=== PATIENT | male | born 1965 | race Caucasian/White ===

== ENCOUNTER 2018-01-22 19:10 | Emergency (ER) | payer MEDICAID, SELFPAY ==
[2018-01-22 19:19] VITALS: BP 128/88; PULSE 98; RESP 16; TEMP 36.8; O2SAT 98
--- NOTE | 2018-01-22 20:21 | W.ED.GENAD ---
Discharge Plan Discharge Details Chief Complaint: PsychEval Clinical Impression: Depression Reason For Visit: NEEDS TO TALK TO SOMEONE Primary Care Provider: Fariba Forde ED Provider: Kandace Gustafson Disposition Patient Disposition: HOME Condition: Fair Home Meds and New Rx's Prescriptions: Continue omeprazole 20 MG capsule,delayed release(DR/EC) 20 mg PO DAILY RF: 0 bupropion HCl [Wellbutrin XL] 300 MG tablet extended release 24 hr 300 mg PO HS RF: 0 nicotine (polacrilex) 4 MG gum 1 tab PO DAILY PRNRF: 0 sertraline 25 MG tablet 25 mg PO DAILY RF: 0 doxepin 10 MG capsule 10 mg PO HS RF: 0 pravastatin 20 MG tablet 20 mg PO HS RF: 0 prazosin 2 MG capsule 2 mg PO HS RF: 0 Melatonin/Pyridoxine [Melatonin 5 mg Tablet] 1 EACH Tablet 10 mg PO HS RF: 0 levothyroxine 75 MCG tablet 75 mcg PO DAILY RF: 0 lamotrigine [Lamictal] 100 MG tablet 100 mg PO DAILY RF: 0 Discharge Instructions Instructions: Depression (ED) Additional Instructions: Please take medications as previously prescribed. Please follow up with counselor as previously scheduled. You may contact [facility] at any point if symptoms worsen. Return to the ER immediately if you develop thoughts of self harm or suicidal ideation. Follow up with primary care in one week for reevaluation. Referrals: Fariba Forde [Primary Care Provider] - Medical Decision Making MDM Narrative Medical decision making narrative: Patient chief complaint needing to speak with someone. On exam, he expressed some sadness and anger towards his sister who in his sister whom does not speak with him. His thought process seems to be appropriate. Initially, patient had reported that he was unsure of his safety to himself. However, he denies any plans for suicide. He seems much more calm and appropriate and he has been in the past and evaluated. He is able to express that while this year has been quite tough for him, he is happy to be living on his own reports that he is in a much more stable than he had been previously. Continues to see shadows which is not new complaint for the patient. He is appropriate and cooperative. Reports that overall he is feeling well physically. Will consult with mental health. Mental health associated NCJuan , evaluated the patient. Danae is familiar with patient. She evaluated the patient feels that he is safe for discharge. She reports that he is not suicidal at this time. Feels that he is safe at home. Patient agrees to contract for safety. I discussed her recommendations with the patient. He reports that he will be safe at home. He feels that he is appropriate to be discharged. He reports that he is able to seek care if he needs to once again. He has contact information for mental health and will be in touch with him. Patient has an appointment with his counselor next week. He will seek care immediately if he develops thoughts of self-harm, suicidal ideation or other new/worsening symptoms HPI - General Adult General Mode of arrival: ambulatory. Date/Time Provider Initiated Documentation: 01/22/18 19:33. Limitations to Documentation: no limitations. Information obtained by: patient. HPI Narrative: Patient is a 52-year-old male well known to the department, with chief complaint of needing to speak with someone. Reports that his younger foster sister of a car accident. This seems to stress very much. He reports that he then reached out to his older sister who does not want to speak with him again. This also seems to increase his anger and frustration. Patient has long history of depression, suicidal ideation. He has been hospitalized twice this year at [facility]. He reports everything that could go along this year has gone wrong. Reports I do not know what I do to deserve this. Reports that recently he has not been thinking so much as wanting to kill himself but with where I will go on a . He does not express any plan currently. Reports that he continues to see shadows at his home. This is not a new complaint for the patient. Reports is been going on for quite some time. No recent medication changes. He denies any auditory hallucinations. Patient has history of depression, bipolar, hypothyroidism, GERD, anxiety. Related Data Home Medications Medication Instructions Recorded Confirmed omeprazole 20 mg PO DAILY 10/16/13 01/22/18 bupropion HCl [Wellbutrin XL] 300 mg PO HS 04/11/17 01/22/18 Melatonin/Pyridoxine [Melatonin 5 10 mg PO HS 06/22/17 01/22/18 mg Tablet] doxepin 10 mg PO HS 06/22/17 01/22/18 pravastatin 20 mg PO HS 06/22/17 01/22/18 prazosin 2 mg PO HS 06/22/17 01/22/18 lamotrigine [Lamictal] 100 mg PO DAILY 08/17/17 01/22/18 levothyroxine 75 mcg PO DAILY 08/17/17 01/22/18 nicotine (polacrilex) 1 tab PO DAILY PRN 10/14/17 01/22/18 Previous Rx's Medication Instructions Recorded sertraline 25 mg PO DAILY tab 10/19/17 Allergies Allergy/AdvReac Type Severity Reaction Status Date / Time Sulfa (Sulfonamide Allergy Severe Swelling/Ed Unverified 01/22/18 19:18 Antibiotics) jostin General Stated Complaint: PsychEval ABA: 2 Review of Systems Constitutional Reports as per HPI, Denies body ache(s), Denies chills, Reports daytime sleepiness, Reports difficulty sleeping, Reports fatigue (states he has had difficulty sleeping, this is not a new issue, has been ongoing for some time ), Denies fever(s), Denies headache(s), Denies malaise and Denies night sweats Eyes Patient Denies change in vision ENT Denies headache(s) Cardiovascular Denies chest pain, Denies chest pain with activity and Denies dyspnea Respiratory Denies cough and Denies dyspnea Comments: No reported respiratory symptoms Gastrointestinal Denies nausea and Denies vomiting Genitourinary Comments: Denies change in urinary habits Neurologic Denies behavioral changes, Denies confusion and Denies headache(s) Psychiatric Reports as per HPI, Reports anxiety, Denies behavioral changes, Denies confusion, Reports depression, Reports visual hallucinations, Denies tactile hallucinations, Denies homicidal ideation and Denies suicidal ideation Endocrine Reports fatigue (states he has had difficulty sleeping, this is not a new issue, has been ongoing for some time ) [facility] Social History Smoking/Tobacco Use Status: Current every day Exam Const General: cooperative, healthy appearing, comfortable, no acute distress, well developed and well groomed Nutritional Appearance: average body habitus Orientation: alert and awake Eyes General: appearance normal, both eyes and all related structures Resp Effort & Inspection: normal respiratory effort, able to speak in complete sentences, no cough and no use of accessory muscles Cardio Rate: regular rate Rhythm: regular rhythm Heart Sounds: S1 normal and S2 normal Skin General skin exam: no rashes or lesions noted Lesions: no lesions Rashes: no rashes Neuro General: alert, awake, oriented x3 and gait normal Cognition: normal cognition Speech: speech normal Gait: normal gait Psych Appearance: grossly normal and well kempt Mental Status: mental status grossly normal Speech and Movement: speech and movement normal Mood: congruent mood Affect: normal affect Attitude: cooperative Thought Process: normal Thought Content: normal Insight: insight good (He is expressing sadness/anger around family situation. He is not expressing thoughts of self harm, seems to have good insite. ) Judgment: judgment good Course Vital Signs Temperature 36.8 C 01/22/18 19:19 Pulse 98 H 01/22/18 19:19 Respiratory Rate 16 01/22/18 19:19 Blood Pressure 128/88 01/22/18 19:19 Pulse Oximetry 98 01/22/18 19:19 Temperature 36.8 C 01/22/18 19:19 Pulse 98 H 01/22/18 19:19 Respiratory Rate 16 01/22/18 19:19 Blood Pressure 128/88 01/22/18 19:19 Pulse Oximetry 98 01/22/18 19:19
[2018-01-22 21:35] VITALS: BP 123/76; PULSE 88; RESP 18; TEMP 36.2; O2SAT 96
--- NOTE | 2018-01-22 21:47 | PDOC.MHCN ---
Presenting Issue: *How did they arrive here at ER and why did they come: Patient walks to the ER because he wants to talk to someone. Precipitating Factors: *Assessment of Safety SI/HI (address delusions if pertaining to the SI/HI) Patient denies SI or HI. He reports that his little sister in a car accident today. He is struggling with the news of her and states this year has not been good for him and he is not sure how much more he can take. The of his sister has made him think about his life and all of the things he would like to change. He shares that he wants someone to care for him and does not want to alone. Disposition: *Behavior: Cooperative. *Eye Contact: Good. *Mood: Calm and depressed. *Affect: Congruent to mood. *Appetite: Diminished per patient. *Sleep (trouble falling/staying asleep): Poor per patient.
== END 2018-01-22 21:39 | disposition home or self-care (01) ==
PROVIDERS: Emergency Provider Physician Assistant; PCP Nurse Practitioner
DX: F32.9 Major depressive disorder, single episode, unspecified (principal)
CPT/HCPCS: 99283; 99281

== ENCOUNTER 2018-02-01 14:49 | Emergency (ER) | payer MEDICAID, SELFPAY ==
[2018-02-01 15:31] VITALS: BP 128/81; PULSE 90; RESP 16; TEMP 36.7; O2SAT 95
--- NOTE | 2018-02-01 15:34 | DI.RAD_ITS ---
SYMPTOMS/DIAGNOSIS: LEFT CHEST PAIN POSTERIOR AFTER COUGHING PA AND LATERAL CHEST: Comparison is made with January,. The heart size is normal. The lungs are well inflated and clear. No infiltrate, effusion or pneumothorax is seen. No rib or spine fractures are identified. IMPRESSION: Negative chest x-ray.
--- NOTE | 2018-02-01 15:35 | W.ED.GENAD ---
Discharge Plan Disposition Patient Disposition: HOME Condition: Good Discharge Details Chief Complaint: Chest/Rib Clinical Impression: Rib sprain Primary Care Provider: Fariba Forde ED Provider: Jagdish Aleman Home Meds and New Rx's Prescriptions: Continue omeprazole 20 MG capsule,delayed release(DR/EC) 20 mg PO DAILY RF: 0 bupropion HCl [Wellbutrin XL] 300 MG tablet extended release 24 hr 300 mg PO HS RF: 0 nicotine (polacrilex) 4 MG gum 1 tab PO DAILY PRNRF: 0 sertraline 25 MG tablet 25 mg PO DAILY RF: 0 doxepin 10 MG capsule 10 mg PO HS RF: 0 pravastatin 20 MG tablet 20 mg PO HS RF: 0 prazosin 2 MG capsule 2 mg PO HS RF: 0 Melatonin/Pyridoxine [Melatonin 5 mg Tablet] 1 EACH Tablet 10 mg PO HS RF: 0 levothyroxine 75 MCG tablet 75 mcg PO DAILY RF: 0 lamotrigine [Lamictal] 100 MG tablet 100 mg PO DAILY RF: 0 Discharge Instructions Instructions: Rib Contusion (ED) Medical Decision Making MDM Narrative Medical decision making narrative: 52-year-old male presents to left posterior chest discomfort that began when he coughed. He is afebrile, well-appearing, oxygenating normally. Differential diagnosis would include chest wall strain, pneumothorax, less likely a occult rib fracture. Patient was referred for chest x-ray with no acute findings. We will treat with NSAIDs, rest. Patient appropriate for discharge to home. HPI - General Adult General Mode of arrival: ambulatory. Date/Time Provider Initiated Documentation: 02/01/18 15:14. Limitations to Documentation: no limitations. Information obtained by: patient. History of Present Illness 52 year old M presents to the emergency department with the chief complaint of L CP, described as moderate, Quality is described as aching, and is localized to the chest and left. Patient reports no radiation. Patient started experiencing this hour(s) and it has been now resolved. No relieving factors improve symptom(s), No exacerbating factors reported . HPI Narrative: 52-year-old male complains of left posterior chest discomfort that began when he coughed. States it feels as if he disrupted previous rib fracture. It is improving over time. He has not been short of breath. He has not had a rash. He did not fall or injure himself Related Data Home Medications Medication Instructions Recorded Confirmed omeprazole 20 mg PO DAILY 10/16/13 02/01/18 bupropion HCl [Wellbutrin XL] 300 mg PO HS 04/11/17 02/01/18 Melatonin/Pyridoxine [Melatonin 5 10 mg PO HS 06/22/17 02/01/18 mg Tablet] doxepin 10 mg PO HS 06/22/17 02/01/18 pravastatin 20 mg PO HS 06/22/17 02/01/18 prazosin 2 mg PO HS 06/22/17 02/01/18 lamotrigine [Lamictal] 100 mg PO DAILY 08/17/17 02/01/18 levothyroxine 75 mcg PO DAILY 08/17/17 02/01/18 nicotine (polacrilex) 1 tab PO DAILY PRN 10/14/17 02/01/18 Previous Rx's Medication Instructions Recorded sertraline 25 mg PO DAILY tab 10/19/17 Allergies Allergy/AdvReac Type Severity Reaction Status Date / Time Sulfa (Sulfonamide Allergy Severe Swelling/Ed Unverified 01/22/18 19:18 Antibiotics) jostin General ABA: 2 Review of Systems Review of Systems 8 systems reviewed and otherwise neg PFSH Social History Smoking/Tobacco Use Status: Current every day Exam Narrative Exam Narrative: GEN: awake, alert, oriented 3. Pleasant, well groomed, interactive. HEAD: Normocephalic, atraumatic ENT: Mucous membranes moist, oropharynx unremarkable, External ear exam unremarkable EYES: PERRL, EOMI NECK: Full ROM, no ELLIS, no menigismus CHEST/RESP: L posterior tenderness to palpation without crepitus or bony deformity, clear to auscultation bilateral, no wheeze/rhonchi/rales CARDIOVASCULAR: RRR, no murmur, rub jose. 2+ Rad pulse bilateral ABDOMEN: Soft, nontender, no mass. +Bowel sounds EXT: Full ROM, no edema, no rash Neuro: Grossly normal neurologic exam, conversant, interactive. Psych: Speech fluent, thoughts congruent, affect normal
--- NOTE | 2018-02-01 15:38 | ED.GENADUL_ITS ---
Discharge Plan Disposition Patient Disposition: HOME Condition: Good Discharge Details Chief Complaint: Chest/Rib Clinical Impression: Rib sprain Primary Care Provider: Fariba Forde ED Provider: Jagdish Aleman Home Meds and New Rx's Prescriptions: Continue omeprazole 20 MG capsule,delayed release(DR/EC) 20 mg PO DAILY RF: 0 bupropion HCl [Wellbutrin XL] 300 MG tablet extended release 24 hr 300 mg PO HS RF: 0 nicotine (polacrilex) 4 MG gum 1 tab PO DAILY PRNRF: 0 sertraline 25 MG tablet 25 mg PO DAILY RF: 0 doxepin 10 MG capsule 10 mg PO HS RF: 0 pravastatin 20 MG tablet 20 mg PO HS RF: 0 prazosin 2 MG capsule 2 mg PO HS RF: 0 Melatonin/Pyridoxine [Melatonin 5 mg Tablet] 1 EACH Tablet 10 mg PO HS RF: 0 levothyroxine 75 MCG tablet 75 mcg PO DAILY RF: 0 lamotrigine [Lamictal] 100 MG tablet 100 mg PO DAILY RF: 0 Discharge Instructions Instructions: Rib Contusion (ED) Medical Decision Making MDM Narrative Medical decision making narrative: 52-year-old male presents to left posterior chest discomfort that began when he coughed. He is afebrile, well-appearing, oxygenating normally. Differential diagnosis would include chest wall strain, pneumothorax, less likely a occult rib fracture. Patient was referred for chest x-ray with no acute findings. We will treat with NSAIDs, rest. Patient appropriate for discharge to home. HPI - General Adult General Mode of arrival: ambulatory . Date/Time Provider Initiated Documentation: 02/01/18 15:14 . Limitations to Documentation: no limitations . Information obtained by: patient . History of Present Illness 52 year old M presents to the emergency department with the chief complaint of L CP, described as moderate, Quality is described as aching, and is localized to the chest and left. Patient reports no radiation. Patient started experiencing this hour(s) and it has been now resolved. No relieving factors improve symptom(s), No exacerbating factors reported . HPI Narrative: 52-year-old male complains of left posterior chest discomfort that began when he coughed. States it feels as if he disrupted previous rib fracture. It is improving over time. He has not been short of breath. He has not had a rash. He did not fall or injure himself Related Data Home Medications Medication Instructions Recorded Confirmed omeprazole 20 mg PO DAILY 10/16/13 02/01/18 bupropion HCl [Wellbutrin XL] 300 mg PO HS 04/11/17 02/01/18 Melatonin/Pyridoxine [Melatonin 5 10 mg PO HS 06/22/17 02/01/18 mg Tablet] doxepin 10 mg PO HS 06/22/17 02/01/18 pravastatin 20 mg PO HS 06/22/17 02/01/18 prazosin 2 mg PO HS 06/22/17 02/01/18 lamotrigine [Lamictal] 100 mg PO DAILY 08/17/17 02/01/18 levothyroxine 75 mcg PO DAILY 08/17/17 02/01/18 nicotine (polacrilex) 1 tab PO DAILY PRN 10/14/17 02/01/18 Previous Rx's Medication Instructions Recorded sertraline 25 mg PO DAILY tab 10/19/17 Allergies Allergy/AdvReac Type Severity Reaction Status Date / Time Sulfa (Sulfonamide Allergy Severe Swelling/Ed Unverified 01/22/18 19:18 Antibiotics) jostin General ABA: 2 Review of Systems Review of Systems 8 systems reviewed and otherwise neg PFSH Social History Smoking/Tobacco Use Status: Current every day Exam Narrative Exam Narrative: GEN: awake, alert, oriented 3. Pleasant, well groomed, interactive. HEAD: Normocephalic, atraumatic ENT: Mucous membranes moist, oropharynx unremarkable, External ear exam unremarkable EYES: PERRL, EOMI NECK: Full ROM, no ELLIS, no menigismus CHEST/RESP: L posterior tenderness to palpation without crepitus or bony deformity, clear to auscultation bilateral, no wheeze/rhonchi/rales CARDIOVASCULAR: RRR, no murmur, rub jose. 2+ Rad pulse bilateral ABDOMEN: Soft, nontender, no mass. +Bowel sounds EXT: Full ROM, no edema, no rash Neuro: Grossly normal neurologic exam, conversant, interactive. Psych: Speech fluent, thoughts congruent, affect normal
[2018-02-01] MEDS: Acetaminophen 325 MG TAB 650 MG PO (15:44)
--- NOTE | 2018-02-01 16:04 | DI.VRAD_ITS ---
EXAM: XR Chest, 2 Views EXAM DATE/TIME: 02/01/2018 3:52 PM CLINICAL HISTORY: 52 years old, male; Pain; Chest wall pain; Patient HX: L posterior cp after coughing TECHNIQUE: XR of the chest, 2 views. COMPARISON: CR - CHEST 2 VIEWS PA,LAT 01/29/2017 7:02 PM FINDINGS: Lungs: Unremarkable. No consolidation. Pleural space: Unremarkable. No pleural effusion. No pneumothorax. Heart/Mediastinum: Unremarkable. No cardiomegaly. Bones/joints: Unremarkable for patient's age. IMPRESSION: No acute findings. Dictated and Authenticated by: Jordan Davis MD. Ordering:KOBY MATT MD
== END 2018-02-01 16:34 | disposition home or self-care (01) ==
PROVIDERS: Emergency Provider Emergency Medicine; PCP Nurse Practitioner
DX: S23.41XA Sprain of ribs, initial encounter (principal); X50.9XXA Other and unspecified overexertion or strenuous movements or postures, initial encounter
CPT/HCPCS: 99283; 71046

== ENCOUNTER 2018-02-27 00:50 | Emergency (ER) | payer MEDICAID, SELFPAY ==
[2018-02-27 00:45] VITALS: BP 122/77; PULSE 88; RESP 16; TEMP 37.1; O2SAT 93
--- NOTE | 2018-02-27 00:58 | DI.COMBO_ITS ---
SYMPTOM/DIAGNOSIS: SOB, POSITIVE D DIMER PA AND LATERAL CHEST: Comparison is made with 02/01/18. The heart is normal in size. The lungs are clear. The mediastinal structures and pleura appear intact. CONCLUSION: Normal chest. PE CHEST CT: CT angiography was performed with multi slice acquisition and multi planar and 3D reconstruction. CT scan of the chest was performed according to the pulmonary embolus protocol. Comparison is made with 01/04/17. There is no evidence of a pulmonary embolus. The thoracic aorta is of normal caliber. No aneurysm or dissection is seen. Heart size is within normal limits. No significant pericardial effusion is present. No findings to suggest right ventricular dysfunction are seen. No mediastinal or hilar adenopathy is present. There is no pleural effusion or pneumothorax present. Moderate centrilobular and paraseptal emphysematous changes are present in the lungs. No acute infiltrates are seen. The tracheobronchial tree is unremarkable. Degenerative changes are seen in the spine. Old rib fracture deformities are present. The upper abdominal images show no acute abnormality. IMPRESSION: No evidence of acute pulmonary embolus, thoracic aortic dissection or aneurysm. Pulmonary emphysema.
--- NOTE | 2018-02-27 01:02 | W.ED.GENAD ---
Discharge Plan Disposition Patient Disposition: HOME Condition: Good Discharge Details Chief Complaint: SOB Clinical Impression: Dyspnea Reason For Visit: SHAHAB Primary Care Provider: Fariba Forde ED Provider: Jewel Lackey [place] Meds and New Rx's Prescriptions: Continue omeprazole 20 MG capsule,delayed release(DR/EC) 20 mg PO DAILY RF: 0 bupropion HCl [Wellbutrin XL] 300 MG tablet extended release 24 hr 300 mg PO HS RF: 0 sertraline 25 MG tablet 25 mg PO DAILY RF: 0 nicotine 21 mg/24 hr Patch 24 Hour 1 patch TRANSDERMAL DAILY RF: 0 doxepin 10 MG capsule 10 mg PO HS RF: 0 pravastatin 20 MG tablet 20 mg PO HS RF: 0 prazosin 2 MG capsule 2 mg PO HS RF: 0 Melatonin/Pyridoxine [Melatonin 5 mg Tablet] 1 EACH Tablet 10 mg PO HS RF: 0 levothyroxine 75 MCG tablet 75 mcg PO DAILY RF: 0 lamotrigine [Lamictal] 100 MG tablet 100 mg PO DAILY RF: 0 Discharge Instructions Instructions: Dyspnea (ED) Additional Instructions: Your chest x-ray and CT scan tonight were fine. EKG was fine. Follow-up with primary care as needed. Return to ED for chest pain, fever, increasing shortness of breath. Referrals: Fariba Forde [Primary Care Provider] - Medical Decision Making Patient presenting with complaint of shortness of breath which he reports as inability to take a deep breath. He has not had fever. He has a chronic unchanged cough. Recently stopped smoking. He has no chest pain or back pain. He has no leg pain or leg swelling. He does not appear to be in any distress. His exam is unremarkable with clear lungs and normal cardiac exam. Saturations are low to mid 90s on room air. He reports that it feels like when he had his pneumothorax last year. Chest x-ray is ordered. EKG is ordered. D-dimer is ordered as I cannot rule him out with PERC. Chest x-ray is unremarkable without PTX per my review. EKG is normal. D-dimer is positive even with age adjustment. Therefore, IV placed and creatinine sent. CT for PE ordered. Patient does state that he is feeling better. CT scan negative for clot. He does have some emphysema. He is resting comfortably now. He no longer feels short of breath. Patient be discharged home follow-up with primary care as needed. Return to ED for problems. Lab Data Lab results reviewed: Yes I reviewed the patient's lab results. ECG Data Attestation: I personally reviewed and interpreted this ECG (s) as follows: Prior ECG tracings: not available for review Interpretation: Normal sinus rhythm at 86 with normal axis and normal intervals. Patient has normal ST segments. HPI General Mode of arrival: EMS. Date/Time Provider Initiated Documentation: 02/27/18 00:51. Limitations to Documentation: no limitations. Information obtained by: patient. HPI Narrative: Patient presents to ED by ambulance with complaints of shortness of breath. Patient states that after he went to bed tonight he started to feel like he could not take a deep breath. This made him more anxious and he felt more short of breath. He denies any fever or cough. He denies any chest pain. He denies any back pain. He has no leg pain or swelling. He states it feels just like when he had a collapsed lung last year. Since it did not get better he called EMS and came in for evaluation. Related Data Home Medications Medication Instructions Recorded Confirmed omeprazole 20 mg PO DAILY 10/16/13 02/27/18 bupropion HCl [Wellbutrin XL] 300 mg PO HS 04/11/17 02/27/18 Melatonin/Pyridoxine [Melatonin 5 10 mg PO HS 06/22/17 02/27/18 mg Tablet] doxepin 10 mg PO HS 06/22/17 02/27/18 pravastatin 20 mg PO HS 06/22/17 02/27/18 prazosin 2 mg PO HS 06/22/17 02/27/18 lamotrigine [Lamictal] 100 mg PO DAILY 08/17/17 02/27/18 levothyroxine 75 mcg PO DAILY 08/17/17 02/27/18 sertraline 25 mg PO DAILY tab 10/19/17 02/27/18 nicotine 1 patch TRANSDERMAL DAILY 02/27/18 02/27/18 Previous Rx's Medication Instructions Recorded sertraline 25 mg PO DAILY tab 10/19/17 Allergies Allergy/AdvReac Type Severity Reaction Status Date / Time Sulfa (Sulfonamide Allergy Severe Swelling/Ed Unverified 02/27/18 00:48 Antibiotics) jostin General Stated Complaint: SOB ABA: 3 Review of Systems Constitutional Denies chills, Denies fever(s), Denies headache(s) and Denies weakness ENT Denies otalgia, Denies headache(s), Denies nasal congestion, Denies neck pain, Denies sinus pressure and Denies sore throat Cardiovascular Denies chest pain, Denies diaphoresis, Denies syncope, Denies edema, Denies leg edema, Denies lightheadedness, Denies palpitations and Reports dyspnea Respiratory Denies cough and Reports dyspnea Gastrointestinal Denies abdominal pain, Denies diarrhea, Denies nausea and Denies vomiting Musculoskeletal Denies back pain, Denies myalgias, Denies arthralgias, Denies neck pain and Denies numbness Integumentary/Breasts Denies rash Neurologic Denies confusion, Denies syncope, Denies headache(s), Denies focal weakness, Denies numbness and Denies weakness Psychiatric Denies confusion Endocrine Denies palpitations Exam Const General: cooperative, comfortable and no acute distress Orientation: alert and oriented x3 [facility] Head: normocephalic and atraumatic Neck Neck: normal visual inspection, trachea midline and supple Chest Chest: normal palpation of entire chest wall Resp Effort & Inspection: normal respiratory effort Auscultation: clear to auscultation bilaterally Cardio Rate: regular rate Rhythm: regular rhythm Heart Sounds: S1 normal and S2 normal GI Palpation: soft, not firm and nontender Neuro General: alert, oriented x3, no focal motor deficits and CN's II-XI intact bilaterally Sensory Exam: no sensory deficits noted Extrem General: normal to inspection, no pedal edema and no calf tenderness Course Vital Signs Temperature 98.8 F 02/27/18 00:45 Pulse 88 02/27/18 00:45 Respiratory Rate 16 02/27/18 00:45 Blood Pressure 122/77 02/27/18 00:45 Pulse Oximetry 93 L 02/27/18 00:45 Temperature 98.8 F 02/27/18 00:45 Temperature Source Skin 02/27/18 00:45 Pulse 88 02/27/18 00:45 Respiratory Rate 16 02/27/18 00:45 Respiratory Effort 02/27/18 00:52 Respiratory Depth Normal 02/27/18 00:52 Respiratory Pattern Normal 02/27/18 00:52 Blood Pressure 122/77 02/27/18 00:45 Pulse Oximetry 93 L 02/27/18 00:45 Oxygen Delivery Method Room Air 02/27/18 00:45 Oxygen Flow Rate 0 02/27/18 00:45 Pain Level 0 02/27/18 00:45
--- NOTE | 2018-02-27 01:06 | ED.GENADUL_ITS ---
Discharge Plan Disposition Patient Disposition: HOME Condition: Good Discharge Details Chief Complaint: SOB Clinical Impression: Dyspnea Reason For Visit: SHAHAB Primary Care Provider: Fariba Forde ED Provider: Jewel Lackey [place] Meds and New Rx's Prescriptions: Continue omeprazole 20 MG capsule,delayed release(DR/EC) 20 mg PO DAILY RF: 0 bupropion HCl [Wellbutrin XL] 300 MG tablet extended release 24 hr 300 mg PO HS RF: 0 sertraline 25 MG tablet 25 mg PO DAILY RF: 0 nicotine 21 mg/24 hr Patch 24 Hour 1 patch TRANSDERMAL DAILY RF: 0 doxepin 10 MG capsule 10 mg PO HS RF: 0 pravastatin 20 MG tablet 20 mg PO HS RF: 0 prazosin 2 MG capsule 2 mg PO HS RF: 0 Melatonin/Pyridoxine [Melatonin 5 mg Tablet] 1 EACH Tablet 10 mg PO HS RF: 0 levothyroxine 75 MCG tablet 75 mcg PO DAILY RF: 0 lamotrigine [Lamictal] 100 MG tablet 100 mg PO DAILY RF: 0 Discharge Instructions Instructions: Dyspnea (ED) Additional Instructions: Your chest x-ray and CT scan tonight were fine. EKG was fine. Follow-up with primary care as needed. Return to ED for chest pain, fever, increasing shortness of breath. Referrals: Fariba Forde [Primary Care Provider] - Medical Decision Making Patient presenting with complaint of shortness of breath which he reports as inability to take a deep breath. He has not had fever. He has a chronic unchanged cough. Recently stopped smoking. He has no chest pain or back pain. He has no leg pain or leg swelling. He does not appear to be in any distress. His exam is unremarkable with clear lungs and normal cardiac exam. Saturations are low to mid 90s on room air. He reports that it feels like when he had his pneumothorax last year. Chest x-ray is ordered. EKG is ordered. D- dimer is ordered as I cannot rule him out with PERC. Chest x-ray is unremarkable without PTX per my review. EKG is normal. D-dimer is positive even with age adjustment. Therefore, IV placed and creatinine sent. CT for PE ordered. Patient does state that he is feeling better. CT scan negative for clot. He does have some emphysema. He is resting comfortably now. He no longer feels short of breath. Patient be discharged home follow-up with primary care as needed. Return to ED for problems. Lab Data Lab results reviewed: Yes I reviewed the patient's lab results. ECG Data Attestation: I personally reviewed and interpreted this ECG (s) as follows: Prior ECG tracings: not available for review Interpretation: Normal sinus rhythm at 86 with normal axis and normal intervals. Patient has normal ST segments. HPI General Mode of arrival: EMS . Date/Time Provider Initiated Documentation: 02/27/18 00:51 . Limitations to Documentation: no limitations . Information obtained by: patient . HPI Narrative: Patient presents to ED by ambulance with complaints of shortness of breath. Patient states that after he went to bed tonight he started to feel like he could not take a deep breath. This made him more anxious and he felt more short of breath. He denies any fever or cough. He denies any chest pain. He denies any back pain. He has no leg pain or swelling. He states it feels just like when he had a collapsed lung last year. Since it did not get better he called EMS and came in for evaluation. Related Data Home Medications Medication Instructions Recorded Confirmed omeprazole 20 mg PO DAILY 10/16/13 02/27/18 bupropion HCl [Wellbutrin XL] 300 mg PO HS 04/11/17 02/27/18 Melatonin/Pyridoxine [Melatonin 5 10 mg PO HS 06/22/17 02/27/18 mg Tablet] doxepin 10 mg PO HS 06/22/17 02/27/18 pravastatin 20 mg PO HS 06/22/17 02/27/18 prazosin 2 mg PO HS 06/22/17 02/27/18 lamotrigine [Lamictal] 100 mg PO DAILY 08/17/17 02/27/18 levothyroxine 75 mcg PO DAILY 08/17/17 02/27/18 sertraline 25 mg PO DAILY tab 10/19/17 02/27/18 nicotine 1 patch TRANSDERMAL DAILY 02/27/18 02/27/18 Previous Rx's Medication Instructions Recorded sertraline 25 mg PO DAILY tab 10/19/17 Allergies Allergy/AdvReac Type Severity Reaction Status Date / Time Sulfa (Sulfonamide Allergy Severe Swelling/Ed Unverified 02/27/18 00:48 Antibiotics) jostin General Stated Complaint: SOB ABA: 3 Review of Systems Constitutional Denies chills, Denies fever(s), Denies headache(s) and Denies weakness ENT Denies otalgia, Denies headache(s), Denies nasal congestion, Denies neck pain, Denies sinus pressure and Denies sore throat Cardiovascular Denies chest pain, Denies diaphoresis, Denies syncope, Denies edema, Denies leg edema, Denies lightheadedness, Denies palpitations and Reports dyspnea Respiratory Denies cough and Reports dyspnea Gastrointestinal Denies abdominal pain, Denies diarrhea, Denies nausea and Denies vomiting Musculoskeletal Denies back pain, Denies myalgias, Denies arthralgias, Denies neck pain and Denies numbness Integumentary/Breasts Denies rash Neurologic Denies confusion, Denies syncope, Denies headache(s), Denies focal weakness, Denies numbness and Denies weakness Psychiatric Denies confusion Endocrine Denies palpitations Exam Const General: cooperative, comfortable and no acute distress Orientation: alert and oriented x3 [facility] Head: normocephalic and atraumatic Neck Neck: normal visual inspection, trachea midline and supple Chest Chest: normal palpation of entire chest wall Resp Effort & Inspection: normal respiratory effort Auscultation: clear to auscultation bilaterally Cardio Rate: regular rate Rhythm: regular rhythm Heart Sounds: S1 normal and S2 normal GI Palpation: soft, not firm and nontender Neuro General: alert, oriented x3, no focal motor deficits and CN's II-XI intact bilaterally Sensory Exam: no sensory deficits noted Extrem General: normal to inspection, no pedal edema and no calf tenderness Course Vital Signs Temperature 98.8 F 02/27/18 00:45 Pulse 88 02/27/18 00:45 Respiratory Rate 16 02/27/18 00:45 Blood Pressure 122/77 02/27/18 00:45 Pulse Oximetry 93 L 02/27/18 00:45 Temperature 98.8 F 02/27/18 00:45 Temperature Source Skin 02/27/18 00:45 Pulse 88 02/27/18 00:45 Respiratory Rate 16 02/27/18 00:45 Respiratory Effort 02/27/18 00:52 Respiratory Depth Normal 02/27/18 00:52 Respiratory Pattern Normal 02/27/18 00:52 Blood Pressure 122/77 02/27/18 00:45 Pulse Oximetry 93 L 02/27/18 00:45 Oxygen Delivery Method Room Air 02/27/18 00:45 Oxygen Flow Rate 0 02/27/18 00:45 Pain Level 0 02/27/18 00:45
[2018-02-27 01:50] LABS: D-Dimer 616 ng/mlFEU (<500)
[2018-02-27 02:14] LABS: CREATININE 0.89 mg/dL (0.70-1.30)
--- NOTE | 2018-02-27 02:14 | DI.VRAD_ITS ---
EXAM: XR Chest, 2 Views CLINICAL HISTORY: 52 years old, male; Signs and symptoms; Shortness of breath; Patient HX: Pt awoke with difficulty catching his breath. Quit smoking 6 days ago, cough but states it is chronic, no recent cold symptoms TECHNIQUE: Frontal and lateral views of the chest. COMPARISON: CR XR CHEST 2V PA LATERAL 02/01/2018 3:45 PM FINDINGS: Lungs: Unremarkable. No consolidation. Pleural space: Unremarkable. No pneumothorax. Heart: Unremarkable. No cardiomegaly. Mediastinum: Unremarkable. Bones/joints: Unremarkable. IMPRESSION: No acute findings. Dictated and Authenticated by: Dashawn Castellon MD. Ordering:MARYLU LUNA MD
[2018-02-27] MEDS: Omnipaque 350 MG/ML 100 ML BTL IJ (02:56)
--- NOTE | 2018-02-27 02:56 | DI.VRAD_ITS ---
EXAM: CT Angiography Chest With Intravenous Contrast CLINICAL HISTORY: 52 years old, male; Signs and symptoms and abnormal findings; Abnormal diagnostic tests; Elevated d-dimer; Shortness of breath; Patient HX: SOB, difficulty catching breath TECHNIQUE: Axial computed tomographic angiography images of the chest with intravenous contrast using pulmonary embolism protocol. All CT scans at this facility use at least one of these dose optimization techniques: automated exposure control; mA and/or kV adjustment per patient size (includes targeted exams where dose is matched to clinical indication); or iterative reconstruction. MIP reconstructed images were created and reviewed. Coronal and sagittal reformatted images were created and reviewed. CONTRAST: 100 mL of Omnipaque 350 administered intravenously. COMPARISON: CT CHEST WITHOUT CONTRAST 01/04/2017 1:33 PM FINDINGS: Pulmonary arteries: Unremarkable. No pulmonary embolism. Aorta: No acute findings. No thoracic aortic aneurysm. Lungs: Moderate centrilobular destruction of lung parenchyma. No mass. Pleural space: Unremarkable. No significant effusion. No pneumothorax. Heart: Unremarkable. No cardiomegaly. No significant pericardial effusion. No evidence of RV dysfunction. Bones/joints: Old rib fracture deformities. No dislocation. Soft tissues: Unremarkable. Lymph nodes: Unremarkable. No enlarged lymph nodes. IMPRESSION: No acute findings. Emphysema. Dictated and Authenticated by: Dashawn Castellon MD. Ordering:MARYLU LUNA MD
== END 2018-02-27 03:06 | disposition home or self-care (01) ==
LOC: ER 03:09
PROVIDERS: Emergency Provider Emergency Medicine; PCP Nurse Practitioner
DX: R06.00 Dyspnea, unspecified (principal); R79.1 Abnormal coagulation profile
CPT/HCPCS: 36415; 71275; 93005; 99285; 71046; 82565; 85379; 93010; 99284; J3490

== ENCOUNTER 2018-02-28 17:35 | Outpatient (REF) | payer MEDICAID, SELFPAY ==
[2018-02-28 19:20] LABS: TSH (W/Ref FT4) 1.83 uIU/mL (0.358-3.74)
[2018-02-28 19:55] LABS: Ferritin 52 ng/mL (8-388)
== END 2018-02-28 17:55 ==
LOC: NCHCN 17:35
PROVIDERS: PCP Nurse Practitioner; Visit Provider Family Medicine
DX: G25.81 Restless legs syndrome (principal); E03.9 Hypothyroidism, unspecified
CPT/HCPCS: 82728; 84443

== ENCOUNTER 2018-05-07 13:16 | Observation (INO) | payer MEDICAID, SELFPAY ==
[2018-05-07 13:34] VITALS: BP 131/88; PULSE 98; RESP 16; TEMP 37
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
--- NOTE | 2018-05-07 13:41 | NUR.NOTE ---
Pt. states he has not been taking his regular medications at all. Pt. remains calm and cooperative with PA.
--- NOTE | 2018-05-07 13:54 | ED.GENADUL_ITS ---
Discharge Plan Disposition Patient Disposition: [facility] INPATIENT Condition: Stable Discharge Details Chief Complaint: PsychEval Clinical Impression: Suicidal ideation, Depression with suicidal ideation Reason For Visit: SUICIDAL IDEATION Admit Date/Time: 05/07/18 22:48 Admit Provider: Saravanan Pires Attending Provider: Saravanan Pires Primary Care Provider: Fariba Forde ED Provider: Wilton Bosch Discharge Data Discharge Date/Time-TO BE ENTERED AT DEPARTURE: 05/07/18 23:06 Medical Decision Making <RENAE Vidal - Last Filed: 05/08/18 09:33> Patient is a 52-year-old male, well-known to myself, brought in in [facility] custody, with primary concern for suicidal ideation with plan. Patient is a long history of psychiatric illness. Patient's been here multiple occasions with suicidal ideation. I last saw the patient in January of this year with similar complaint. However, at this time, patient seems much more deliberate. He has a plan of overdose which is atypical from the patient's previous plans. Typically when I evaluate the patient, he is wanting help and wanting to improve his current mental state. However, at this point, he does not want treatment. Rather, the patient reports I will just get discharged, go home and overdose. He denies any hallucinations. Denies any recent attempts at suicide. States his last attempt was over a month ago which time he tried to starve himself and did not eat for 2 weeks. Denies any recent drug ingestions. Patient is accompanied by mental health. He is brought in in police custody after warrant was issued based on his current mental state. Mental health is concerned that his agitation and suicidal thinking and plan have become much more serious. He was also threatening his nurse practitioner whom he typically sees as well as police. He is not threatening here and denies any homicidal ideation. He is quite appropriate with me at this time but is adamant that he will leave the child himself if discharged. Patient has been involuntarily admitted by mental health. Involuntary commitment papers was also completed by myself and Dr. Fierro as the patient is refusing care and is clearly at risk to himself and potentially to others Laboratory evaluation is concerning for elevated TSH, I have sent a free T4. Patient was given 1 mg of oral Ativan to help with his anxiety At the end of my shift, care was transitioned to Grady Bosch NP, pending bed availability. Mental Health is working on bed placement at this time. <Wilton Bosch NP - Last Filed: 05/07/18 23:26> Accepted transition of care of patient from Kandace MACDONALD pending psychiatric bed availability. Patient stable and states no new complaints. Patient cooperative and showing no signs of aggression or agitation at this time. Second certification for involuntary exam was performed and psychiatrist team patient not in emergent need of involuntary admission because patient is now voluntary stating that he wants help. Patient continues to report that his plan of care is to overdose. Patient remains stable with no new complaints and pending hearing back from [facility] on possible admission. No bed availability so patient was prescribed his normal nightly meds as per our medical records and consulted with hospitalist in regards to admission to the inpatient services pending bed availability. Patient continued to remain calm with no new or worsening symptoms and was agreeable to plan of care. Dr. Pires admitted patient in service for continued care and treatment as needed HPI <RENAE Vidal - Last Filed: 05/08/18 09:33> General Mode of arrival: ambulatory . Date/Time Provider Initiated Documentation: 05/07/18 13:39 . Limitations to Documentation: no limitations . Information obtained by: patient . History of Present Illness 52 year old M presents to the emergency department with the chief complaint of suicidal ideation, described as severe, Patient started experiencing this unknown and it has been constant. No relieving factors improve symptom(s), No exacerbating factors reported . Patient notes loss of appetite and other (difficulty sleeping); denies chest pain, cough, diaphoresis, fever/chills, headaches and nausea/vomiting. Patient did receive the following treatments prior to arrival, none Related Data Home Medications Medication Instructions Recorded Confirmed omeprazole 20 mg PO DAILY 10/16/13 05/07/18 bupropion HCl [Wellbutrin XL] 300 mg PO HS 04/11/17 02/27/18 Melatonin/Pyridoxine [Melatonin 5 10 mg PO HS 06/22/17 02/27/18 mg Tablet] doxepin 10 mg PO HS 06/22/17 02/27/18 pravastatin 20 mg PO HS 06/22/17 05/07/18 prazosin 2 mg PO HS 06/22/17 05/07/18 lamotrigine [Lamictal] 100 mg PO DAILY 08/17/17 02/27/18 levothyroxine 75 mcg PO DAILY 08/17/17 05/07/18 sertraline 25 mg PO DAILY tab 10/19/17 02/27/18 nicotine 1 patch TRANSDERMAL DAILY 02/27/18 02/27/18 bupropion HCl 200 mg PO DAILY 05/07/18 05/07/18 cariprazine [Vraylar] 3 mg PO DAILY 05/07/18 05/07/18 hydroxyzine HCl 25 mg PO QID PRN 05/07/18 05/07/18 lamotrigine 200 mg PO DAILY 05/07/18 05/07/18 melatonin 5 mg PO HS PRN 05/07/18 05/07/18 promethazine 25 mg PO BID PRN 05/07/18 05/07/18 trazodone 150 mg PO DAILY 05/07/18 05/07/18 Previous Rx's Medication Instructions Recorded sertraline 25 mg PO DAILY tab 10/19/17 Allergies Allergy/AdvReac Type Severity Reaction Status Date / Time Sulfa (Sulfonamide Allergy Severe Swelling/Ed Unverified 05/07/18 13:41 Antibiotics) jostin General Stated Complaint: PsychEval ABA: 2 Review of Systems <RENAE Vidal - Last Filed: 05/08/18 09:33> Constitutional Reports as per HPI, Denies chills, Denies fatigue, Denies fever(s), Denies headache(s) and Denies weakness Eyes Denies change in vision ENT Denies headache(s) Cardiovascular Reports as per HPI, Denies chest pain, Denies lightheadedness, Denies dyspnea and Denies dyspnea on exertion Respiratory Denies dyspnea and Denies dyspnea on exertion Gastrointestinal Reports as per HPI, Denies abdominal pain, Denies change in bowel habits, Denies nausea and Denies vomiting Genitourinary Denies system reviewed and no additional complaints, except as docu (denies any change in urinary habits) Musculoskeletal Denies abnormal gait Integumentary/Breasts Reports as per HPI and Denies rash Neurologic Denies abnormal gait, Denies headache(s) and Denies weakness Psychiatric Reports as per HPI, Reports abnormal sleep pattern, Reports anxiety, Reports change in appetite, Reports depression, Reports irritability, Reports mood swings, Denies visual hallucinations, Denies hallucinations, Denies homicidal ideation and Reports suicidal ideation Endocrine Denies fatigue PFSH <RENAE Vidal Last Filed: 05/08/18 09:33> Medical History Anxiety (Chronic) Bipolar disorder (Chronic) GERD (gastroesophageal reflux disease) (Chronic) Hypothyroid (Chronic) Traumatic pneumothorax (Inactive) Surgical History History of ankle surgery (Inactive) S/P thoracostomy tube placement (Inactive) Social History Smoking/Tobacco Use Status: Former Tobacco Use quit date: 02/21/18 Exam <RENAE Vidal Last Filed: 05/08/18 09:33> Const General: cooperative, healthy appearing, comfortable, no acute distress, well developed and well groomed Nutritional Appearance: average body habitus and well nourished Orientation: alert and awake Eyes General: appearance normal, both eyes and all related structures Resp Effort & Inspection: normal respiratory effort, able to speak in complete sentences and no respiratory distress Auscultation: clear to auscultation bilaterally, no rales, no rhonchi and no wheezes Cardio Rate: regular rate Rhythm: regular rhythm Heart Sounds: S1 normal and S2 normal Skin General skin exam: no rashes or lesions noted Trauma: no lacerations or abrasions Neuro General: alert and awake Cognition: normal cognition Speech: speech normal Gait: normal gait Psych Appearance: grossly normal (unchanged) and disheveled Mental Status: mental status grossly normal Speech and Movement: speech and movement normal Mood: anxious mood Affect: labile affect, sad and anxious affect Attitude: cooperative Thought Process: normal Thought Content: normal Course <RENAE Vidal - Last Filed: 05/08/18 09:33> Vital Signs Temperature 37.0 C 05/07/18 13:34 Pulse 98 H 05/07/18 13:34 Respiratory Rate 16 05/07/18 13:34 Blood Pressure 131/88 05/07/18 13:34 Temperature 37.0 C 05/07/18 13:34 Temperature Source Temporal Artery Scan 05/07/18 13:34 Pulse 98 H 05/07/18 13:34 Respiratory Rate 16 05/07/18 13:34 Blood Pressure 131/88 05/07/18 13:34 Blood Pressure Position Sitting 05/07/18 13:34 Oxygen Delivery Method Room Air 05/07/18 13:34 Oxygen Flow Rate 0 05/07/18 13:34 Pain Level 0 05/07/18 13:34 Sign Out <RENAE Vidal - Last Filed: 05/08/18 09:33> Sign Out Data: Sign Out Comment: Care transitioned to Grady Bosch NP. Patient actively suicidal, awaiting for possible bed placement through mental health. Last updated by Kandace Gustafson PA at 05/07/18 16:38
[2018-05-07] MEDS: LORazepam 1 MG TAB PO (13:56)
--- NOTE | 2018-05-07 14:15 | NUR.NOTE ---
pt arrived to ER with [facility], trooper sat with patient until medical care was started. Nursing Note:
--- NOTE | 2018-05-07 14:19 | NUR.NOTE ---
Pt. has one to one sitter for safety. Jagdish Cuevas, pt's caser up approached patient regarding policy of changing into blue scrubs, pt. again refused, pt. did give up his phone which is secured with keys, cloth beamer and pills.
[2018-05-07 14:21] LABS: Abs Immature Grans 0.03 k/cumm (0.0-0.09); Absolute Basophil Count 0.01 k/cumm (0.0-0.2); Absolute Eosinophil Count 0.06 k/cumm (0.0-0.7); Absolute Lymphocyte Count 1.96 k/cumm (1.2-3.4); Absolute Monocyte Count 0.83 k/cumm (0.11-0.7); Basophils % 0.1; Eosinophils % 0.4; HCT 45.7 % (40.0-50.0); HGB 15.5 g/dL (13.5-17.5); Immature Grans % 0.2; Lymphocytes % 13.4; Mean Corp. HGB Concentration 33.9 g/dL (32.0-36.0); Mean Corpuscular Hemoglobin 28.4 pg (27.0-33.0); Mean Corpuscular Volume 83.9 fL (80-95); Mean Platelet Volume 9.8 fL (8.0-11.0); Monocytes % 5.7; Neutrophils % 80.2; Platelet Count 225 x1000/uL (130-400); RBC 5.45 m/cumm (4.50-6.00); White Blood Cell Count 14.59 k/cumm (4.4-10.8)
--- NOTE | 2018-05-07 14:28 | PDOC.ERCMPRO ---
- If Service Date Differs Date of service: 05/07/18 Time of Service: 14:28 Care Management Progress Note INVOLUNTARY FOR INPATIENT STABILIZATION: Currently Asim is sitting on a stretcher in the ER. He has been cooperative since arriving at [facility]. Asim was brought in via [facility] under a warrant for evaluation. Asim was at [facility] earlier today for a scheduled appointment with Leilani Harding, when he stated to Jagdish [facility] COMPANY DOCTOR, that he was suicidal with the plan to overdose on pills. Asim then threatened harm to Georgie Encarnacion, [facility] staff, stating ?she is going to get what she deserves? (Per Jagdish [facility]). Jagdish [facility], spoke with Asim about voluntary hospitalization and he is refusing at this time, therefore Jagdish has applied for status. Asim is a COMPANY DOCTOR client and well known to [facility], he sees Neri Starks, COMPANY DOCTOR, in the community. [facility] COMPANY DOCTOR sees Asim daily to distribute medications, calls him numerous times per week for check ins, and he has an outing with [facility] staff 2x/week. Huddle Participants: Jagdish Velázquez [facility], Gladys, RN Burnishing Machine Operator, ANDREI Keith RN, and this CM. Date and time: 05/07/18 @ 1405 Safety plan has been established with patient, and care team, to adhere to patient goals, identify restrictions based on behavioral status, address nutrition, and determine allowed personal belongings, tools for hygiene and personal care. Determine level of activity including ambulation, level of supervision, visitors, and determine privileges based on behaviors and level of engagement by pt. SAFETY PLAN: 1. Will remain on suicide precautions. In Paper Clothes (Is in regular clothes now, CM requested that he be changed into paper clothes Asim had been refusing, KADEN Dubon, to speak with him about this) 2. Will remain in room under direct supervision of one-on-one staff at all times provided by JARRETT DIGGS elementary school band director. 3. May have paper cups, plates, finger foods. 4. Follow [facility] Management of the Admitted Behavioral Health Patient policy. 5. Comfort bath system only. 6. No personal belongings 7. Visitors - None at this time 8. Activities - May have crayons and paper 9. Bathroom privileges may go to the bathroom with staff escort. Placement: KADEN Dubon, is currently working on EE paperwork. He will fax to [facility] and then call local facilities in regards to availability. Patient is currently involuntarily at [facility] and seeking inpatient admission when a bed becomes available. [facility] Frontline Bolt Labeler will continue seeking placement. Please contact the Barbed Wire Machine Operator Fiscal Services Director ([phone]) and [facility] Bolt Labeler ([phone]) for any needed changes in the Safety Plan. Safety plan has been provided to interdepartmental care team including Clinical Coordinator, Nursing Burnishing Machine Operator.
--- NOTE | 2018-05-07 14:29 | CMPROGNOTE_ITS ---
- If Service Date Differs Date of service: 05/07/18 Time of Service: 14:28 Care Management Progress Note INVOLUNTARY FOR INPATIENT STABILIZATION: Currently Asim is sitting on a stretcher in the ER. He has been cooperative since arriving at [facility]. Asim was brought in via [facility] under a warrant for evaluation. Asim was at [facility] earlier today for a scheduled appointment with Leilani Harding, when he stated to Jagdish [facility] DISEASE MANAGEMENT NURSE, that he was suicidal with the plan to overdose on pills. Asim then threatened harm to Georgie Encarnacion, [facility] staff, stating ?she is going to get what she deserves? (Per Jagdish [facility]). Jagdish [facility], spoke with Asim about voluntary hospitalization and he is refusing at this time, therefore Jagdish has applied for status. Asim is a DISEASE MANAGEMENT NURSE client and well known to [facility], he sees Neri Starks, DISEASE MANAGEMENT NURSE, in the community. [facility] DISEASE MANAGEMENT NURSE sees Asim daily to distribute medications, calls him numerous times per week for check ins, and he has an outing with [facility] staff 2x/week. Huddle Participants: Jagdish Velázquez [facility], Gladys, RN Social Research Assistant, ANDREI Keith RN, and this CM. Date and time: 05/07/18 @ 1405 Safety plan has been established with patient, and care team, to adhere to patient goals, identify restrictions based on behavioral status, address nutrition, and determine allowed personal belongings, tools for hygiene and personal care. Determine level of activity including ambulation, level of supervision, visitors, and determine privileges based on behaviors and level of engagement by pt. SAFETY PLAN: 1. Will remain on suicide precautions. In Paper Clothes (Is in regular clothes now, CM requested that he be changed into paper clothes Asim had been refusing, KADEN Dubon, to speak with him about this) 2. Will remain in room under direct supervision of one-on-one staff at all times provided by JARRETT DIGGS straddle buggy operator. 3. May have paper cups, plates, finger foods. 4. Follow [facility] Management of the Admitted Behavioral Health Patient policy. 5. Comfort bath system only. 6. No personal belongings 7. Visitors - None at this time 8. Activities - May have crayons and paper 9. Bathroom privileges may go to the bathroom with staff escort. Placement: KADEN Dubon, is currently working on EE paperwork. He will fax to [facility] and then call local facilities in regards to availability. Patient is currently involuntarily at [facility] and seeking inpatient admission when a bed becomes available. [facility] Frontline Trace Evidence Technician will continue seeking placement. Please contact the Fiber Optics Engineer Microphone Operator ([phone]) and [facility] Trace Evidence Technician ([phone]) for any needed changes in the Safety Plan. Safety plan has been provided to interdepartmental care team including Clinical Coordinator, Nursing Social Research Assistant.
[2018-05-07 14:31] LABS: ALT 23 U/L (12-78); AST 16 U/L (15-37); Alkaline Phosphatase 112 U/L (46-116); Anion Gap 11.2 mmol/L (3-11); BUN 14 mg/dL (7-18); Bilirubin, Total 0.3 mg/dL (0.2-1.0); CO2 26.8 mmol/L (21.0-32.0); CREATININE 1.07 mg/dL (0.70-1.30); Calcium 9.6 mg/dL (8.5-10.1); Chloride 99 mmol/L (98-107); Glucose 168 mg/dL (70-100); Potassium 3.4 mmol/L (3.5-5.1); Sodium 137 mmol/L (136-145); TSH 5.82 uIU/mL (0.358-3.74)
[2018-05-07 14:45] LABS: ETHANOL BLOOD < 3.0 mg/dL (<3)
[2018-05-07 14:58] LABS: Salicylate < 2.8 mg/dL (2.8-20.0)
[2018-05-07 15:02] LABS: Acetaminophen < 2 ug/mL (10-30)
[2018-05-07 15:15] LABS: Bilirubin Negative (Negative); Blood Trace-intact (Negative); Clarity Clear; Glucose Negative (Negative); Ketones Negative (Negative); Leukocyte Esterase Negative (Negative); Nitrite Negative (Negative); Specific Gravity 1.015 (1.005-1.025); Urobilinogen 0.2 EU/dL (Up TO 0.2)
--- NOTE | 2018-05-07 15:15 | PDOC.MHCN ---
Date of service: 05/07/18 Time of Service: 15:16 Mental Health Crisis Note Presenting Issue How did you arrive at the ED and why did you come: Patient was brought to the ER by [employer] on a Court Ordered Pshychological Exam. Precipitating Factors Patient stated that they were having strong H/I with with a plan to overdose on prescribed medication that he had been hoarding. He also expressed strong H/I towards staff at [facility], [facility], and [facility]. Disposition BEHAVIOR: Patient is cooperative with the exception of changing into medical prescribed clothes. He does not sit or lie down on the bed but just stands in the room. EYE CONTACT: Patient makes appropriate eye contact. MOOD: Patient is depressed in presentation and expressess so verbally. AFFECT: Flat APPETITE: Normal SLEEP(trouble falling/staying asleep: Unknown Plan Patient is Court ordered and on Involuntary Status and will be held until psychiatric placement is obtained. Signature Clinician's Name/Title: Jagdish Velázquez [facility]
[2018-05-07 15:24] LABS: Bacteria Moderate HPF (Negative); C & S Indicated? No; Casts Negative LPF (Negative); Crystals Moderate Amorphous HPF (Negative); Epithelial Cells Few HPF (Negative); Mucus Moderate (Negative); Other Cells Rare Renal (Negative); WBC 0-2 HPF (0-5)
--- NOTE | 2018-05-07 15:27 | PDOC.MHCN_ITS ---
Date of service: 05/07/18 Time of Service: 15:16 Mental Health Crisis Note Presenting Issue How did you arrive at the ED and why did you come: Patient was brought to the ER by [facility] on a Court Ordered Pshychological Exam. Precipitating Factors Patient stated that they were having strong H/I with with a plan to overdose on prescribed medication that he had been hoarding. He also expressed strong H/I towards staff at [facility], [facility], and [facility]. Disposition BEHAVIOR: Patient is cooperative with the exception of changing into medical prescribed clothes. He does not sit or lie down on the bed but just stands in the room. EYE CONTACT: Patient makes appropriate eye contact. MOOD: Patient is depressed in presentation and expressess so verbally. AFFECT: Flat APPETITE: Normal SLEEP(trouble falling/staying asleep: Unknown Plan Patient is Court ordered and on Involuntary Status and will be held until psychiatric placement is obtained. Signature Clinician's Name/Title: Jagdish Velázquez [facility]
[2018-05-07 15:35] LABS: *AMPHETAMINES SCREEN URINE Negative (Negative); *BARBITURATES SCREEN URINE Negative (Negative); *BENZODIAZEPINES SCREEN URINE Negative (Negative); Cannabinoids THC POSITIVE (Negative); Cocaine Screen,Urine Negative (Negative); METHADONE URINE SCREEN Negative (Negative); OPIATES URINE SCREEN Negative (Negative)
[2018-05-07 15:37] LABS: Tricyclic Antidepressants Negative (Negative)
[2018-05-07 16:21] LABS: FREE T4 1.09 ng/dL (0.76-1.46)
--- NOTE | 2018-05-07 19:50 | NUR.NOTE ---
Pt. sleeping, RR WNL. one to one remains, awaiting second cert.
--- NOTE | 2018-05-07 20:26 | NUR.NOTE ---
Pt. had 7$ in his pocket, given to this RN and placed in labeled bag with other belongings including phone, weigher and charger, and keys.
--- NOTE | 2018-05-07 21:02 | PDOC.ERCMPRO ---
Care Management Progress Note S/O: Second Certification completed with Dr. Champion from the [facility]. Asim asked to be voluntary and wants to go for help at an inpatient psychiatric facility. Dr. Champion did not feel he could continue with Involuntary status at this point and plans to change status to Voluntary. Remains at risk with Suicidal ideation and a plan to take an overdose of prescription medication. Frontline Eligibility Consultant, Jeimy, contacted and she will meet with Asim and seek inpatient admission if a bed is available. INVOLUNTARY CHANGED TO VOLUNTARY STATUS FOR INPATIENT STABILIZATION: Asim remains in the Emergency Department and has been alternating between sitting on the stretcher and pacing. He remains cooperative since arriving at [facility] and is interacting appropriately with staff members. Huddle Participants: KADEN Shelley, SEAMUS Coppola Jet Inspector, ANDREI Elena RN, and this CM. Date and time: 05/07/18 @ 212905/07/18 at 21:30 ED Room 9 MM: Voluntary Status Safety plan has been established with patient, and care team, to adhere to patient goals, identify restrictions based on behavioral status, address nutrition, and determine allowed personal belongings, tools for hygiene and personal care. Determine level of activity including ambulation, level of supervision, visitors, and determine privileges based on behaviors and level of engagement by pt. SAFETY PLAN: 1. Will remain on suicide precautions. In Paper Clothes which he has not agreed to do at this point. He has had a complete wanding done by Security. 2. Will remain in room under direct supervision of one-on-one [facility] staff at all times provided by DONTAE, JARRETT chipper operator. 3. If Asim wishes to leave [facility] the [facility] adult protective caseworker must be contacted to re-evaluate his condition prior to exiting the facility. 4. May have paper cups, plates, finger foods. 5. Follow [facility] Management of the Admitted Behavioral Health Patient policy. 6. Comfort bath system only. 7. No personal belongings 8. Visitors - None at this time 9. Activities - May have crayons and paper 10. Bathroom privileges may go to the bathroom with staff escort. 11. May have TV and remote if available 12. Brick And Tile Making Machine Operator will coordinate a transfer from ED to /S pending bed availability and staffing. Placement: KADEN Munson, will call local facilities in regards to availability and send clinical information for referral. Clinical information has been faxed to [facility]. Patient is currently Voluntarily at [facility] and seeking inpatient admission when a bed becomes available. [facility] Frontline Eligibility Consultant will continue seeking placement. Please contact the Domestic Freight Forwarder Aged Or Disabled Care Worker ([phone]) and [facility] Eligibility Consultant ([phone]) for any needed changes in the Safety Plan. Safety plan has been provided to interdepartmental care team including Clinical Coordinator, Nursing Jet Inspector.
--- NOTE | 2018-05-07 21:58 | PDOC.MHCN_ITS ---
Mental Health Crisis Note Presenting Issue How did you arrive at the ED and why did you come: Patient comes to the ER via police due to suicidal ideation. Precipitating Factors Patient reports ongoing suicidal ideation with intent and plan of overdosing on medications. He denies homicidal thoughts. He states he has nothing to live for and is done with life. Disposition BEHAVIOR: Cooperative. EYE CONTACT: Good. MOOD: Depressed. AFFECT: Solumn. APPETITE: Good. SLEEP(trouble falling/staying asleep: Poor. Plan Plan is to seek a voluntary hospitalization. Justin Bosch NP, is consulted and is in agreement with this plan. There are no available beds this evening but a referral has been faxed to [facility]. They will consider patient for admission in the a.m.
--- NOTE | 2018-05-07 22:01 | CMPROGNOTE_ITS ---
Care Management Progress Note S/O: Second Certification completed with Dr. Champion from the [facility]. Asim asked to be voluntary and wants to go for help at an inpatient psychiatric facility. Dr. Champion did not feel he could continue with Involuntary status at this point and plans to change status to Voluntary. Remains at risk with Suicidal ideation and a plan to take an overdose of prescription medication. Frontline Floor Scrubber, Jeimy, contacted and she will meet with Asim and seek inpatient admission if a bed is available. INVOLUNTARY CHANGED TO VOLUNTARY STATUS FOR INPATIENT STABILIZATION: Asim remains in the Emergency Department and has been alternating between sitting on the stretcher and pacing. He remains cooperative since arriving at [facility] and is interacting appropriately with staff members. Huddle Participants: KADEN Shelley, SEAMUS Coppola Construction Site Manager, ANDREI Elena RN, and this CM. Date and time: 05/07/18 @ 212905/07/18 at 21:30 ED Room 9 MM: Voluntary Status Safety plan has been established with patient, and care team, to adhere to patient goals, identify restrictions based on behavioral status, address nutrition, and determine allowed personal belongings, tools for hygiene and personal care. Determine level of activity including ambulation, level of supervision, visitors, and determine privileges based on behaviors and level of engagement by pt. SAFETY PLAN: 1. Will remain on suicide precautions. In Paper Clothes which he has not agreed to do at this point. He has had a complete wanding done by Security. 2. Will remain in room under direct supervision of one-on-one CPSO staff at all times provided by DONTAE, JARRETT roofer applicator. 3. If Asim wishes to leave [facility] the [facility] beadworker must be contacted to re-evaluate his condition prior to exiting the facility. 4. May have paper cups, plates, finger foods. 5. Follow [facility] Management of the Admitted Behavioral Health Patient policy. 6. Comfort bath system only. 7. No personal belongings 8. Visitors - None at this time 9. Activities - May have crayons and paper 10. Bathroom privileges may go to the bathroom with staff escort. 11. May have TV and remote if available 12. Sld Educational Aide will coordinate a transfer from ED to /S pending bed availability and staffing. Placement: KADEN Munson, will call local facilities in regards to availability and send clinical information for referral. Clinical information has been faxed to [facility]. Patient is currently Voluntarily at [facility] and seeking inpatient admission when a bed becomes available. [facility] Frontline Floor Scrubber will continue seeking placement. Please contact the Phone Operator Fire Loss Prevention Engineer ([phone]) and [facility] Floor Scrubber ([phone]) for any needed changes in the Safety Plan. Safety plan has been provided to interdepartmental care team including Clinical Coordinator, Nursing Construction Site Manager.
--- NOTE | 2018-05-07 22:47 | HPE_ITS ---
Date of service: 05/07/18 Time of Service: 22:41 Assessment and Plan (1) Suicidal ideation: Current visit: Yes Status: Acute Suicidal ideation. Will admit pending definitive psychiatric disposition note that I am unable at present to confirm patient's current medication list. He reports that [facility] brings him his medications on a daily basis and we will standby for that list. he has already been ordered through the emergency room for what has been determined are his evening medications History of Present Illness Chief Complaint: Suicidal ideation Narrative: Patient is a 52-year-old male with history of bipolar and multiple emergency room visits for mental health issues. He was brought here tonight expressing suicidal ideation over the past several days, plan being to take a drug overdose. He does not specify anything beyond that, just that he is tired of living he was medically cleared. He was deemed appropriate for involuntary psychiatric admission. There were no beds available and he is admitted here pending psychiatric disposition. Review of Systems Review of Systems All systems reviewed & are unremarkable except as noted in HPI and below PFSH Medical History Anxiety (Chronic) Bipolar disorder (Chronic) GERD (gastroesophageal reflux disease) (Chronic) Hypothyroid (Chronic) Traumatic pneumothorax (Inactive) Surgical History History of ankle surgery (Inactive) S/P thoracostomy tube placement (Inactive) Social History Smoking/Tobacco Use Status: Former Tobacco Use quit date: 02/21/18 Meds Home Medications Medication Instructions Recorded Confirmed Type omeprazole 20 mg PO DAILY 10/16/13 05/07/18 History bupropion HCl [Wellbutrin XL] 300 mg PO HS 04/11/17 02/27/18 History Melatonin/Pyridoxine [Melatonin 5 10 mg PO HS 06/22/17 02/27/18 History mg Tablet] doxepin 10 mg PO HS 06/22/17 02/27/18 History pravastatin 20 mg PO HS 06/22/17 05/07/18 History prazosin 2 mg PO HS 06/22/17 05/07/18 History lamotrigine [Lamictal] 100 mg PO DAILY 08/17/17 02/27/18 History levothyroxine 75 mcg PO DAILY 08/17/17 05/07/18 History sertraline 25 mg PO DAILY tab 10/19/17 02/27/18 Rx nicotine 1 patch TRANSDERMAL DAILY 02/27/18 02/27/18 History bupropion HCl 200 mg PO DAILY 05/07/18 05/07/18 History cariprazine [Vraylar] 3 mg PO DAILY 05/07/18 05/07/18 History hydroxyzine HCl 25 mg PO QID PRN 05/07/18 05/07/18 History lamotrigine 200 mg PO DAILY 05/07/18 05/07/18 History melatonin 5 mg PO HS PRN 05/07/18 05/07/18 History promethazine 25 mg PO BID PRN 05/07/18 05/07/18 History trazodone 150 mg PO DAILY 05/07/18 05/07/18 History Allergies Allergy/AdvReac Type Severity Reaction Status Date / Time Sulfa (Sulfonamide Allergy Severe Swelling/Ed Unverified 05/07/18 13:41 Antibiotics) jostin Exam Narrative Exam Narrative: Blood pressure 131/88, pulse 98, respirations 16, temp 37.0. HEENT shows no signs of head trauma. Neck is supple. Lungs clear. Heart regular rate and rhythm. Abdomen is soft nontender. and rectal exams deferred. Extremities without edema neurological patient has flat affect but oriented x3 and moves all 4 extremities equally Results Labs : 05/07/18 14:00 05/07/18 14:00 Laboratory Results - last 24 hr 05/07/18 05/07/18 05/07/18 14:00 14:00 14:00 WBC 14.59 H RBC 5.45 Hgb 15.5 Hct 45.7 MCV 83.9 MCH 28.4 MCHC 33.9 RDW 14.0 Plt Count 225 MPV 9.8 Immature Gran % 0.2 Neutrophils % 80.2 Lymphocytes % 13.4 Monocytes % 5.7 Eosinophils % 0.4 Basophils % 0.1 Absolute Neutrophils 11.70 H Absolute Lymphocytes 1.96 Absolute Monocytes 0.83 H Absolute Eosinophils 0.06 Absolute Basophils 0.01 Sodium 137 Potassium 3.4 L Chloride 99 Carbon Dioxide 26.8 Anion Gap 11.2 H BUN 14 Creatinine 1.07 Estimated GFR/1.73 m2 >= 60.00 Glucose 168 H Calcium 9.6 Total Bilirubin 0.3 AST 16 ALT 23 Alkaline Phosphatase 112 Total Protein 8.0 Albumin 4.0 TSH 5.82 H Free T4 Urine Color Urine Clarity Urine pH Ur Specific [place] Urine Protein Urine Ketones Urine Blood Urine Nitrite Urine Bilirubin Urine Urobilinogen Ur Leukocyte Esterase Urine RBC Urine WBC Ur Epithelial Cells Urine Crystals Urine Bacteria Urine Casts Urine Mucus Urine Other Ur Culture Indicated? Urine Glucose Salicylates < 2.8 L Urine Opiates Screen Urine Methadone Screen Acetaminophen < 2 L Ur Barbiturates Screen Ur Tricyclics Screen Ur Amphetamines Screen U Benzodiazepines Scrn Urine Cocaine Screen Ur THC Screen Ethyl Alcohol < 3.0 05/07/18 05/07/18 05/07/18 14:00 15:00 15:00 WBC RBC Hgb Hct MCV MCH MCHC RDW Plt Count MPV Immature Gran % Neutrophils % Lymphocytes % Monocytes % Eosinophils % Basophils % Absolute Neutrophils Absolute Lymphocytes Absolute Monocytes Absolute Eosinophils Absolute Basophils Sodium Potassium Chloride Carbon Dioxide Anion Gap BUN Creatinine Estimated GFR/1.73 m2 Glucose Calcium Total Bilirubin AST ALT Alkaline Phosphatase Total Protein Albumin TSH Free T4 1.09 Urine Color Yellow Urine Clarity Clear Urine pH 7.0 Ur Specific [place] 1.015 Urine Protein Negative Urine Ketones Negative Urine Blood Trace-intact H Urine Nitrite Negative Urine Bilirubin Negative Urine Urobilinogen 0.2 Ur Leukocyte Esterase Negative Urine RBC 3-5 H Urine WBC 0-2 Ur Epithelial Cells Few Urine Crystals Moderate amorphous Urine Bacteria Moderate Urine Casts Negative Urine Mucus Moderate Urine Other Rare renal Ur Culture Indicated? No Urine Glucose Negative Salicylates Urine Opiates Screen Negative Urine Methadone Screen Negative Acetaminophen Ur Barbiturates Screen Negative Ur Tricyclics Screen Negative Ur Amphetamines Screen Negative U Benzodiazepines Scrn Negative Urine Cocaine Screen Negative Ur THC Screen Positive Ethyl Alcohol Last Vital Signs Temp 37.0 C 05/07/18 13:34 Pulse 98 H 05/07/18 13:34 Resp 16 05/07/18 13:34 BP 131/88 05/07/18 13:34
[2018-05-07 23:35] VITALS: BP 138/85; PULSE 95; RESP 18; TEMP 36.9; O2SAT 95
[2018-05-07] MEDS: Omeprazole 20 MG CAPCR PO (23:55)
[2018-05-07] MEDS: traZODone 50 MG TAB 150 MG PO (23:55)
[2018-05-07] MEDS: Doxepin 10 MG CAP PO (23:55)
[2018-05-07] MEDS: Melatonin 3 MG TAB PO (23:55)
[2018-05-07] MEDS: Pravastatin 20 MG TAB PO (23:55)
[2018-05-07] MEDS: buPROPion-XL 150 MG TABCR 300 MG PO (23:55)
[2018-05-07] MEDS: Prazosin 1 MG CAP 2 MG PO (23:55)
[2018-05-08 07:50] VITALS: BP 112/77; PULSE 100; RESP 18; TEMP 36.7; O2SAT 94
--- NOTE | 2018-05-08 08:50 | NUR.NOTE ---
Nursing Note: 0830: in with pt acting as observer. pt and RN discuss his mental health status; they have really messed me up. when asked who had messed him up, pt states mental health. pt reporting self harm to end life with pills that I got when I got released from [facility] the last time. pt has many c/o staff from [facility] and only wants Jagdish to be his case hardener. pt states that Justin should have his head shoved up his ass and that he does not ever want Nikolay around me again. pt seems frustrated this morning but is making appropriate eye contact with staff and answers questions asked. pt and RN discuss the loss of his dog, Alberto, who has but not while in his care. pt states he is lonely. RN discusses options like going to the [employer] for meals for company, pt states I don't like to be around people. 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 pt states he is currently on disability and has no interest in getting a job because of being around people. pt shows no interest in getting another pet; discussed cats, I hate cats!, discussed rabbits and birds No!, discussed another dog, no way, can't do that again. pt is pleasant although harsh at times with his conversation. pt verbalizes his thoughts well and seems to be forth coming with his thought process. pt did decline breakfast this morning stating I'm just not hungry. pt has coffee in room at this time. pt sitting up on stretcher with legs crossed. continue to monitor.
[2018-05-08 09:15] VITALS: O2SAT 96
--- NOTE | 2018-05-08 11:20 | CMPROGNOTE_ITS ---
- If Service Date Differs Date of service: 05/08/18 Time of Service: 11:18 Care Management Progress Note VOLUNTARY STATUS FOR INPATIENT STABILIZATION: Asim is on the Medical/Surgical unit at this time. He has been cooperative as of this morning. Asim is requesting not to see KADEN Easton, however she states that she is the only one available at this time. Rustam reports that she met with Asim and he was not willing to engage in conversation with her, and had a blanket over his head at that time. Per SEAMUS Mendes, Asim continues to have SI at this time with a plan to overdose on his pills, stating that he has pills at his home. Reilly Banerjee states that Asim has gone to [facility] In the past as well as the Care Bed. SEAMUS Mendes, spoke with Asim about these options and he states that he does not feel as though he is in a good place to go to [facility], however is considering the care bed option. Asim remains voluntary and is receptive to inpatient psychiatric stabilization at this time. Huddle Participants: KADEN Easton, SEAMUS Mendes, SEAMUS Donaldson CC, and this CM. Date and time: 05/08/18 @ 1014 05/08/18 at 1045 M/S Room 228 MM: Voluntary Status Safety plan has been established with patient, and care team, to adhere to patient goals, identify restrictions based on behavioral status, address nutrition, and determine allowed personal belongings, tools for hygiene and personal care. Determine level of activity including ambulation, level of supervision, visitors, and determine privileges based on behaviors and level of engagement by pt. SAFETY PLAN: 1. Will remain on suicide precautions. In Paper Clothes which he has not agreed to do at this point. He has had a complete wanding done by Security. 2. Will remain in room under direct supervision of one-on-one CPSO staff at all times provided by JARRETT DIGGS storage garage manager. 3. If Asim wishes to leave [facility] the [facility] black ash worker must be contacted to re-evaluate his condition prior to exiting the facility. 4. May have paper cups, plates, finger foods as well as a metal spoon with which to eat meals. [facility] staff will be responsible for accounting of utensils after meals. 5. Follow [facility] Management of the Admitted Behavioral Health Patient policy. 6. Comfort bath system only. 7. No personal belongings 8. Visitors - None at this time 9. Activities - May have crayons and paper 10. May have TV and remote if available Placement: Rustam states that she spoke with Kirti Goldberg [facility], this morning, and there are not beds available at this time. Patient is currently Voluntarily at [facility] and seeking inpatient admission when a bed becomes available. [facility] Frontline Implementation Specialist will continue seeking placement. Please contact the [place] Operator Pan Cleaner ([phone]) and [facility] Implementation Specialist ([phone]) for any needed changes in the Safety Plan. Safety plan has been provided to interdepartmental care team including Clinical Coordinator, Nursing Glazing Superintendent.
--- NOTE | 2018-05-08 11:36 | PDOC.CMIN ---
- If Service Date Differs Date of service: 05/08/18 Time of Service: 11:37 Care Management Initial Assess REASON FOR HOSPITALIZATION:: Suicidal ideation PAST MEDICAL HISTORY/PAST SURGICAL HISTORY:: Anxiety (Chronic). Bipolar disorder (Chronic). GERD (gastroesophageal reflux disease) (Chronic). Hypothyroid (Chronic). Traumatic pneumothorax (Inactive). History of ankle surgery (Inactive). S/P thoracostomy tube placement (Inactive) PREVIOUS FUNCTIONAL STATUS/SOCIAL/FAMILY SUPPORTS:: Asim resides alone in [place] in an apartment. He reports no supports locally in regards to family. His only support is [facility] per his report CURRENT FUNCTIONAL STATUS:: Currently Asim is lying in bed this morning. ADVANCE DIRECTIVES:: None on file Has patient been provided with information about the portal?: No Did the patient sign up for the portal?: No CODE STATUS:: Full Code INSURANCE COVERAGE / FINANCIAL ISSUES:: Medicaid CURRENT HOME/COMMUNITY SERVICES/EQUIPMENT:: Currently Asim has services through [facility] JUNIOR NETWORK ADMINISTRATOR. His case manager specialist is Neri Starks. Asim also receives daily medication drops from [facility] when in the community. PRIMARY CARE PHYSICIAN:: Fariba Forde POTENTIAL DISCHARGE NEEDS:: Placement at Psychiatric facility PATIENT/FAMILY EDUCATION NEEDS:: Review DC instructions, any limitations, and ongoing DC planning discussion. Discuss 'Ask Me Three' ANTICIPATED BARRIERS TO DISCHARGE:: None identified at this time. TRANSPORTATION:: Via soil sampler PLAN:: Asim will DC to a psychiatric facility once a bed becomes available. He will transport via soil sampler once ready. Asim is voluntary at this time.
--- NOTE | 2018-05-08 11:36 | PHARADMIT ---
Admission Pharmacy Clinical Review SUICIDAL IDEATION (Here Voluntarily Code Status Full Code Current Weight Wgt-73.9 kg Renally Cleared and Narrow Therapeutic Index Meds CrCl~ 74 mL/min Meds-OK QTc Value / Action Taken QTc-428 NA BP Control, Fever BP- 112/77 Tmax-36.9C Electrolytes reviewed Na- 137 K+3.4 DVT Prophylaxis No Ambl Opiate Usage / Scheduled Bowel Regimen Ordered No No Plt/SCr for Heparin / Enoxaparin Plts- 225 SCr- 1.07 INR for Warfarin NA H/H stable, WBC/Bands H&H- 15.5/45.7 WBC-14.59 Antibiotic appropriateness NA Cultures and Sensitivities NA Surgical ABX d/c within 24 hr NA DM control / Insulin Dosing BG- 168 Heart Failure (Check EF%) (FIOR's, B-Block, Diuretics) NONE IV to PO Switch NA Home Meds Reviewed [facility] Home Meds Not Ordered Sertraline, Doxepin, Comments Drug Urine Screen- THC
--- NOTE | 2018-05-08 12:02 | INITIAL_ITS ---
- If Service Date Differs Date of service: 05/08/18 Time of Service: 11:37 Care Management Initial Assess REASON FOR HOSPITALIZATION:: Suicidal ideation PAST MEDICAL HISTORY/PAST SURGICAL HISTORY:: Anxiety (Chronic). Bipolar disorder (Chronic). GERD (gastroesophageal reflux disease) (Chronic). Hypothyroid (Chronic). Traumatic pneumothorax (Inactive). History of ankle surgery (Inactive). S/P thoracostomy tube placement (Inactive) PREVIOUS FUNCTIONAL STATUS/SOCIAL/FAMILY SUPPORTS:: Asim resides alone in [place] in an apartment. He reports no supports locally in regards to family. His only support is [facility] per his report CURRENT FUNCTIONAL STATUS:: Currently Asim is lying in bed this morning. ADVANCE DIRECTIVES:: None on file Has patient been provided with information about the portal?: No Did the patient sign up for the portal?: No CODE STATUS:: Full Code INSURANCE COVERAGE / FINANCIAL ISSUES:: Medicaid CURRENT HOME/COMMUNITY SERVICES/EQUIPMENT:: Currently Asim has services through [facility] POLE TRUCK DRIVER. His housing case manager is Neri Starks. Asim also receives daily medication drops from [facility] when in the community. PRIMARY CARE PHYSICIAN:: Fariba Forde POTENTIAL DISCHARGE NEEDS:: Placement at Psychiatric facility PATIENT/FAMILY EDUCATION NEEDS:: Review DC instructions, any limitations, and ongoing DC planning discussion. Discuss 'Ask Me Three' ANTICIPATED BARRIERS TO DISCHARGE:: None identified at this time. TRANSPORTATION:: Via friction paint machine tender PLAN:: Asim will DC to a psychiatric facility once a bed becomes available. He will transport via friction paint machine tender once ready. Asim is voluntary at this time.
--- NOTE | 2018-05-08 12:58 | W.INMHPGNOTE ---
Date of service: 05/08/18 Time of Service: 12:58 Mental Health Crisis Note Precipitating Factors Client came to [facility] via law enforcement as he reports experiencing suicidal ideation and homicidal ideation and he was refusing to go willingly to the hospital to be screened for safety. Disposition BEHAVIOR: Client would not engage with this clinician around a safety screening. He had the blanket pulled over his head while this clinician attempted to enegage him in the screening process. EYE CONTACT: None MOOD: Unknown APPETITE: Impossible to assess. SLEEP(trouble falling/staying asleep: [facility] staff reports that he slept through the night. Plan Client was unwilling to engage with this clinician. This clinician spoke with other [facility] staff to develop a plan around discharge and [facility] staff offered [facility], a level 3 residential facility, as a possible placement however the client declined as he states that he is too unstable. The client will remain at [facility] until a bed becomes available in a psychiatric facility or the client feel stable enough to return home or step down to [facility].
--- NOTE | 2018-05-08 13:10 | MHPN_ITS ---
Date of service: 05/08/18 Time of Service: 12:58 Mental Health Crisis Note Precipitating Factors Client came to [facility] via law enforcement as he reports experiencing suicidal ideation and homicidal ideation and he was refusing to go willingly to the hospital to be screened for safety. Disposition BEHAVIOR: Client would not engage with this clinician around a safety screening. He had the blanket pulled over his head while this clinician attempted to enegage him in the screening process. EYE CONTACT: None MOOD: Unknown APPETITE: Impossible to assess. SLEEP(trouble falling/staying asleep: [facility] staff reports that he slept through the night. Plan Client was unwilling to engage with this clinician. This clinician spoke with other [facility] staff to develop a plan around discharge and [facility] staff offered [facility], a level 3 residential facility, as a possible placement however the client declined as he states that he is too unstable. The client will remain at [facility] until a bed becomes available in a psychiatric facility or the client feel stable enough to return home or step down to [facility].
[2018-05-08] MEDS: Potassium Chloride 20 MEQ TABCR 40 MEQ PO ×2 (13:16→20:34)
[2018-05-08] MEDS: lamoTRIgine 100 MG TAB 200 MG PO (13:16)
[2018-05-08] MEDS: Omeprazole 20 MG CAPCR PO (13:17)
[2018-05-08] MEDS: hydrOXYzine HCL 25 MG TAB PO ×2 (13:17→20:33)
[2018-05-08] MEDS: Levothyroxine 75 MCG TAB PO (13:17)
--- NOTE | 2018-05-08 15:18 | NUR.NOTE ---
Med surge nurse asked about statement in safety plan indicating that the pt should be in paper scrubs. I verified with risk management / care management and verified that the wanding was adequate versus having an escalation with the patient.
--- NOTE | 2018-05-08 15:32 | PGE_ITS ---
Date of Service Date of service: 05/08/18 Time of Service: 15:31 Assessment and Plan (1) Suicidal ideation: Current visit: Yes Status: Acute He remains with suicidal ideation. Continue safety plan. Mental health will continue to work on a safe discharge plan. (2) DVT prophylaxis: Current visit: Yes Status: Acute subcutaneous lovenox. (3) Discharge planning issues: Current visit: Yes Status: Acute He is a FULL code. His regular medications have been ordered. Mental health QUITLINE COUNSELOR continues to work on safe discharge plan. This case was discussed with Dr. Grossman who is in agreement. Subjective Interval history since last seen: Asim is a 52 year old male with history of Bipolar who is followed by Mental Health QUITLINE COUNSELOR in the community. He has had multiple ED visits related to mental health issues. He presented to the ED last evening with reports of suicidal ideation. He reported a desire to overdose on his medication at home. Today, he continues to verbalize a desire to overdose on medications. He reports that he has had a bad year with significant stressors. He states, if I'm not here anymore, nobody will have to worry about it. He declined talking to the QUITLINE COUNSELOR worker that was on today, stating that they have had issues in the past. He denies any other concerns, no chest pain, palpitations, shortness of breath, coughing, wheezing, pain. Exam Narrative Exam Narrative: General: He is lying in bed with blankets over his head. He makes good eye contact, answers questions appropriately. Does not appear to be in any distress. HEENT: Normocephalic, atraumatic. Sclerae nonicteric, conjunctiva noninjected, mucous membranes moist. Neck: Supple, no JVD. Respiratory: Respirations even and unlabored. Lung sounds clear to auscultation throughout. Cardiovascular: Heart was regular rate and rhythm, no murmur appreciated. Abdomen: Normal bowel sounds throughout, abdomen soft, nontender on palpation, no masses appreciated. Extremities: Well perfused, without clubbing, cyanosis or edema. Objective Objective Clinical Data: Vital Signs Temperature 36.7 C 05/08/18 07:50 Temperature Source Tympanic 05/08/18 07:50 Pulse 100 H 05/08/18 07:50 Pulse Rhythm Regular 05/08/18 09:00 Respiratory Rate 18 05/08/18 07:50 Respiratory Effort Non-Labored 05/08/18 09:00 Respiratory Depth Normal 05/08/18 09:00 Respiratory Pattern Normal 05/08/18 09:00 Blood Pressure 112/77 05/08/18 07:50 Blood Pressure Position Sitting 05/07/18 13:34 Pulse Oximetry 96 05/08/18 09:15 Oxygen Delivery Method Room Air 05/08/18 09:15 Oxygen Flow Rate 0 05/08/18 09:15 Pain Level 0 05/07/18 13:34 Intake & Output 05/07/18 05/08/18 05/08/18 23:59 11:59 23:59 Intake Total 1220 / 1220 Balance 1220 / 1220 Weight 73.936 kg Intake: Oral 1220 / 1220 Other: Urine Color Yellow Urine Appearance Clear Urine Odor Normal Comment pt voiding ad tawanna, urine not assessed by RN Voiding Methods Toilet Toilet Laboratory Results WBC 14.59 k/cumm (4.4-10.8) H 05/07/18 14:00 RBC 5.45 m/cumm (4.50-6.00) 05/07/18 14:00 Hgb 15.5 g/dL (13.5-17.5) 05/07/18 14:00 Hct 45.7 % (40.0-50.0) 05/07/18 14:00 MCV 83.9 fL (80-95) 05/07/18 14:00 MCH 28.4 pg (27.0-33.0) 05/07/18 14:00 MCHC 33.9 g/dL (32.0-36.0) 05/07/18 14:00 RDW 14.0 % (11.8-14.1) 05/07/18 14:00 Plt Count 225 x1000/uL (130-400) 05/07/18 14:00 MPV 9.8 fL (8.0-11.0) 05/07/18 14:00 Immature Gran % 0.2 05/07/18 14:00 Neutrophils % 80.2 05/07/18 14:00 Lymphocytes % 13.4 05/07/18 14:00 Monocytes % 5.7 05/07/18 14:00 Eosinophils % 0.4 05/07/18 14:00 Basophils % 0.1 05/07/18 14:00 Absolute Neutrophils 11.70 k/cumm (1.2-6.7) H 05/07/18 14:00 Absolute Lymphocytes 1.96 k/cumm (1.2-3.4) 05/07/18 14:00 Absolute Monocytes 0.83 k/cumm (0.11-0.7) H 05/07/18 14:00 Absolute Eosinophils 0.06 k/cumm (0.0-0.7) 05/07/18 14:00 Absolute Basophils 0.01 k/cumm (0.0-0.2) 05/07/18 14:00 Sodium 137 mmol/L (136-145) 05/07/18 14:00 Potassium 3.4 mmol/L (3.5-5.1) L 05/07/18 14:00 Chloride 99 mmol/L (98-107) 05/07/18 14:00 Carbon Dioxide 26.8 mmol/L (21.0-32.0) 05/07/18 14:00 Anion Gap 11.2 mmol/L (3-11) H 05/07/18 14:00 BUN 14 mg/dL (7-18) 05/07/18 14:00 Creatinine 1.07 mg/dL (0.70-1.30) 05/07/18 14:00 Estimated GFR/1.73 m2 >= 60.00 (mL/min/1.73m2) 05/07/18 14:00 Glucose 168 mg/dL (70-100) H 05/07/18 14:00 Calcium 9.6 mg/dL (8.5-10.1) 05/07/18 14:00 Total Bilirubin 0.3 mg/dL (0.2-1.0) 05/07/18 14:00 AST 16 U/L (15-37) 05/07/18 14:00 ALT 23 U/L (12-78) 05/07/18 14:00 Alkaline Phosphatase 112 U/L (46-116) 05/07/18 14:00 Total Protein 8.0 g/dL (6.4-8.2) 05/07/18 14:00 Albumin 4.0 g/dL (3.4-5.0) 05/07/18 14:00 TSH 5.82 uIU/mL (0.358-3.74) H 05/07/18 14:00 Free T4 1.09 ng/dL (0.76-1.46) 05/07/18 14:00 Urine Color Yellow (Yellow) 05/07/18 15:00 Urine Clarity Clear 05/07/18 15:00 Urine pH 7.0 (5-8) 05/07/18 15:00 Ur Specific [place] 1.015 (1.005-1.025) 05/07/18 15:00 Urine Protein Negative mg/dL (Negative) 05/07/18 15:00 Urine Ketones Negative mg/dL (Negative) 05/07/18 15:00 Urine Blood Trace-intact (Negative) H 05/07/18 15:00 Urine Nitrite Negative (Negative) 05/07/18 15:00 Urine Bilirubin Negative (Negative) 05/07/18 15:00 Urine Urobilinogen 0.2 EU/dL (Up TO 0.2) 05/07/18 15:00 Ur Leukocyte Esterase Negative (Negative) 05/07/18 15:00 Urine RBC 3-5 (0-2) H 05/07/18 15:00 Urine WBC 0-2 HPF (0-5) 05/07/18 15:00 Ur Epithelial Cells Few HPF (Negative) 05/07/18 15:00 Urine Crystals Moderate amorphous HPF (Negative) 05/07/18 15:00 Urine Bacteria Moderate HPF (Negative) 05/07/18 15:00 Urine Casts Negative LPF (Negative) 05/07/18 15:00 Urine Mucus Moderate (Negative) 05/07/18 15:00 Urine Other Rare renal (Negative) 05/07/18 15:00 Ur Culture Indicated? No 05/07/18 15:00 Urine Glucose Negative mg/dL (Negative) 05/07/18 15:00 Salicylates < 2.8 mg/dL (2.8-20.0) L 05/07/18 14:00 Urine Opiates Screen Negative (Negative) 05/07/18 15:00 Urine Methadone Screen Negative (Negative) 05/07/18 15:00 Acetaminophen < 2 ug/mL (10-30) L 05/07/18 14:00 Ur Barbiturates Screen Negative (Negative) 05/07/18 15:00 Ur Tricyclics Screen Negative (Negative) 05/07/18 15:00 Ur Amphetamines Screen Negative (Negative) 05/07/18 15:00 U Benzodiazepines Scrn Negative (Negative) 05/07/18 15:00 Urine Cocaine Screen Negative (Negative) 05/07/18 15:00 Ur THC Screen Positive (Negative) 05/07/18 15:00 Ethyl Alcohol < 3.0 mg/dL (<3) 05/07/18 14:00
[2018-05-08] MEDS: Nicotine 14 MG/24 HR PATCH TD (15:54)
[2018-05-08 20:30] VITALS: BP 122/90; PULSE 85; RESP 18; TEMP 36.6; O2SAT 94
[2018-05-08] MEDS: traZODone 50 MG TAB 150 MG PO (21:12)
[2018-05-08] MEDS: Pravastatin 20 MG TAB PO (21:12)
[2018-05-08] MEDS: Prazosin 1 MG CAP 2 MG PO (21:12)
[2018-05-08 23:36] VITALS: BP 116/82; PULSE 90; RESP 17; TEMP 36.9; O2SAT 97
[2018-05-09 07:04] LABS: HCT 48.9 % (40.0-50.0); HGB 16.5 g/dL (13.5-17.5); Mean Corp. HGB Concentration 33.7 g/dL (32.0-36.0); Mean Corpuscular Hemoglobin 28.4 pg (27.0-33.0); Platelet Count 195 x1000/uL (130-400); RBC 5.82 m/cumm (4.50-6.00); RBC Distribution Width 14.2 % (11.8-14.1); White Blood Cell Count 9.34 k/cumm (4.4-10.8)
[2018-05-09 07:12] LABS: Anion Gap 12.5 mmol/L (3-11); BUN 14 mg/dL (7-18); CO2 23.5 mmol/L (21.0-32.0); CREATININE 0.86 mg/dL (0.70-1.30); Calcium 9.4 mg/dL (8.5-10.1); Chloride 103 mmol/L (98-107); Glucose 126 mg/dL (70-100); Magnesium 1.6 mg/dL (1.8-2.4); Potassium 4.4 mmol/L (3.5-5.1); Sodium 139 mmol/L (136-145)
[2018-05-09 08:51] VITALS: BP 107/88; PULSE 90; RESP 18; TEMP 37.1; O2SAT 93
[2018-05-09] MEDS: Magnesium Oxide 400 MG TAB PO (08:51)
[2018-05-09] MEDS: Levothyroxine 75 MCG TAB PO (08:51)
[2018-05-09] MEDS: Potassium Chloride 20 MEQ TABCR 40 MEQ PO (08:52)
[2018-05-09] MEDS: hydrOXYzine HCL 25 MG TAB PO (08:52)
[2018-05-09] MEDS: lamoTRIgine 100 MG TAB 200 MG PO (08:52)
[2018-05-09] MEDS: Nicotine 14 MG/24 HR PATCH TD (08:53)
[2018-05-09] MEDS: Omeprazole 20 MG CAPCR PO (08:53)
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
[2018-05-09 09:05] VITALS: O2SAT 97
--- NOTE | 2018-05-09 11:26 | CMDISCH_ITS ---
- If Service Date Differs Date of service: 05/09/18 Time of Service: 11:17 LACE Index Scoring Tool - Questions: Length of Stay (in days): 2 Acuity (Admit via E.D.?): Yes E.D. Visits: 21 - Answers: Total Score: 9 Risk of Readmission: Low Risk Care Management Discharge Reason for Hospitalization: Suicidal ideation Discharge Plan: KADEN Cox, met with Asim this morning, he reports no SI/HI to her, and therefore is safe to return home. Brooke offered a care bed in [place] and Asim was uninterested in this reporting that he would rather return home. KADEN will see Asim daily for medication distribution, and will also be calling him frequently throughout the holiday weekend. KADEN Cox, will transport Asim home today. SEAMUS Mendes, and KENISHA Wagoner, are aware of the above plan for DC. Patient/Family Education Needs: Review DC instructions, any limitations, and discuss 'Ask Me three'
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
== END 2018-05-09 12:41 | disposition home or self-care (01) ==
LOC: ER 22:58 → MS 23:26
PROVIDERS: Physician Assistant; Admitting Provider General Practice; Emergency Provider Nurse Practitioner Family; PCP Nurse Practitioner; Visit Provider Nurse Practitioner
DX: R45.851 Suicidal ideations (principal); F31.9 Bipolar disorder, unspecified; Z75.1 Person awaiting admission to adequate facility elsewhere; E87.6 Hypokalemia; E83.42 Hypomagnesemia; E03.9 Hypothyroidism, unspecified
CPT/HCPCS: 36415; 80048; 80053; 80307; 85027; 99222; 99225; 99239; 99285; 80320; 80329; 81003; 81015; 83735; 84439; 84443; 85025; 99217; 99284; G0378

== ENCOUNTER 2018-05-28 11:18 | Outpatient (REF) | payer MEDICAID, SELFPAY ==
[2018-05-28 13:18] LABS: Magnesium 1.8 mg/dL (1.8-2.4)
== END 2018-05-28 11:38 ==
LOC: NCHCN 11:18
PROVIDERS: PCP Nurse Practitioner; Visit Provider Family Medicine
DX: E83.42 Hypomagnesemia (principal)
CPT/HCPCS: 83735

== ENCOUNTER 2018-07-02 13:46 | Emergency (ER) | payer MEDICAID, SELFPAY ==
[2018-07-02 13:53] VITALS: BP 128/85; PULSE 96; RESP 20; TEMP 36.8; O2SAT 99
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
--- NOTE | 2018-07-02 14:17 | PDOC.ERCMPRO ---
Care Management Progress Note 07/02-Asim presents to the emergency department today for suicidal ideation. Met with Asim and discussed his current situation. When meeting with Asim, he is sitting on the edge of he bed, easily engages in conversation with this CM, and makes good eye contact. Asim states, I haven't taken my meds in four days. I don't know if they are working. I am a wreck. I told Brent I was not taking my meds, no one at [facility] cares so why should I. I told Brent I was coming here. I'm going to hurt myself big time. I'm going to walk out into the [place], sit down, and go to sleep. It will not be messy this way. Discussed with Asim what was happening so that he did not take his meds in four days. I've been traumatized. This CM asked Asim, can you explain to me what you mean by traumatized? Asim stated, Last June I had to give my dog away. I was still seeing him sometimes. The last time I saw him, he jumped up in my lap, gave me a kiss, and then . 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 Asim states he has no contract with Mental Health prior to coming to the Emergency Department. Discussion with Dr. Sandy Majano. She will order a CPSO. Currently we have a nurse sitting with patient. Following Care Plan in place until medically cleared and evaluated by Mental Health. At that time, there will be a huddle and changes to care plan if needed. Asim Oliviapaulino Care Plan 07/02/18 VOLUNTARY FOR INPATIENT PSYCHIATRIC STABILIZATION. Current behaviors: Patient is easily redirected and has not been appropriate in his interactions since arriving at [facility]. He has articulated his needs and concerns and is fully engaged during staff interactions. Huddle Participants: Dr. Sandy Majano; Spoke with Gladys (via phone) RN, Nursing Call Manager; Trena WAY; and this CM. Date and time:07/02/18 at 1430 Safety plan has been established with patient, and care team, to adhere to patient goals, identify restrictions based on behavioral status, address nutrition, and determine allowed personal belongings, tools for hygiene and personal care. Determine level of activity including ambulation, level of supervision, visitors, and determine privileges based on behaviors and level of engagement by pt. SAFETY PLAN: 1. Will remain on suicide precautions. In Paper Clothes 2. Will remain in room under direct supervision of one-on-one staff at all times provided by DONTAE, EXPERIMENTAL PREFLIGHT MECHANIC air traffic instructor. 3. May have paper cups, plates, finger foods as well as a metal spoon with which to eat meals. [facility] staff will be responsible for accounting of utensils after meals. 4. Follow [facility] Management of the Admitted Behavioral Health Patient policy. 5. Comfort bath system only. 6. No personal belongings in room 7. Visitors at the discretion of the provider 8. Activities, may have activities from the Mental Health Activity Cart in ED 9. May have television with remote if available. 10. Bathroom privileges may go to the bathroom with staff escort. 11. Phone calls at the discretion of the provider 11. Due to VOLUNTARY status, if patient wishes to leave [facility], the [facility] shut off worker must be contacted to re-evaluate patient prior to patient exiting the building. Placement: Unknown at this time. Patient needs to be medically cleared and screened by Mental Health. Patient is currently voluntarily at [facility] and seeking treatment. [facility] Frontline Psychiatric Social Worker will evaluate for placement. Please contact the Leather Etcher Fruit Receiver ([phone]) and [facility] Psychiatric Social Worker ([phone]) for any needed changes in the Safety Plan or if patient leaves facility. Safety plan has been provided to interdepartmental care team including Clinical Coordinator, Nursing Call Manager.
--- NOTE | 2018-07-02 14:41 | CMPROGNOTE_ITS ---
Care Management Progress Note 07/02-Asim presents to the emergency department today for suicidal ideation. Met with Asim and discussed his current situation. When meeting with Asim, he is sitting on the edge of he bed, easily engages in conversation with this CM, and makes good eye contact. Asim states, I haven't taken my meds in four days. I don't know if they are working. I am a wreck. I told Brent I was not taking my meds, no one at [facility] cares so why should I. I told Brent I was coming here. I'm going to hurt myself big time. I'm going to walk out into the [place], sit down, and go to sleep. It will not be messy this way. Discussed with Asim what was happening so that he did not take his meds in four days. I've been traumatized. This CM asked Asim, can you explain to me what you mean by traumatized? Asim stated, Last June I had to give my dog away. I was still seeing him sometimes. The last time I saw him, he jumped up in my lap, gave me a kiss, and then . 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 Asim states he has no contract with Mental Health prior to coming to the Emergency Department. Discussion with Dr. Sandy Majano. She will order a CPSO. Currently we have a nurse sitting with patient. Following Care Plan in place until medically cleared and evaluated by Mental Health. At that time, there will be a huddle and changes to care plan if needed. Asim Oliviapaulino Care Plan 07/02/18 VOLUNTARY FOR INPATIENT PSYCHIATRIC STABILIZATION. Current behaviors: Patient is easily redirected and has not been appropriate in his interactions since arriving at [facility]. He has articulated his needs and concerns and is fully engaged during staff interactions. Huddle Participants: Dr. Sandy Majano; Spoke with Gladys (via phone) RN, Nursing Duty Officer; Trena WAY; and this CM. Date and time:07/02/18 at 1430 Safety plan has been established with patient, and care team, to adhere to p atient goals, identify restrictions based on behavioral status, address nutrition, and determine allowed personal belongings, tools for hygiene and personal care. Determine level of activity including ambulation, level of supervision, visitors, and determine privileges based on behaviors and level of engagement by pt. SAFETY PLAN: 1. Will remain on suicide precautions. In Paper Clothes 2. Will remain in room under direct supervision of one-on-one staff at all times provided by DONTAE, INJECTION MOLD TECHNICIAN geriatric social work professor. 3. May have paper cups, plates, finger foods as well as a metal spoon with which to eat meals. [facility] staff will be responsible for accounting of utensils after meals. 4. Follow [facility] Management of the Admitted Behavioral Health Patient policy. 5. Comfort bath system only. 6. No personal belongings in room 7. Visitors at the discretion of the provider 8. Activities, may have activities from the Mental Health Activity Cart in ED 9. May have television with remote if available. 10. Bathroom privileges may go to the bathroom with staff escort. 11. Phone calls at the discretion of the provider 11. Due to VOLUNTARY status, if patient wishes to leave [facility], the [facility] rescue worker must be contacted to re-evaluate patient prior to patient exiting the building. Placement: Unknown at this time. Patient needs to be medically cleared and screened by Mental Health. Patient is currently voluntarily at [facility] and seeking treatment. [facility] Frontline Industrial Pipefitter Journeyman will evaluate for placement. Please contact the [employer] Addiction Treatment Counselor ([phone]) and [facility] Industrial Pipefitter Journeyman ([phone]) for any needed changes in the Safety Plan or if patient leaves facility. Safety plan has been provided to interdepartmental care team including Clinical Coordinator, Nursing Duty Officer.
[2018-07-02 16:25] VITALS: BP 128/85; PULSE 96; RESP 20; TEMP 36.8; O2SAT 99
== END 2018-07-02 16:04 | disposition home or self-care (01) ==
PROVIDERS: Emergency Provider Student in an Organized Health Care Education/Training Program; PCP Nurse Practitioner
DX: F31.9 Bipolar disorder, unspecified (principal); F32.9 Major depressive disorder, single episode, unspecified; T43.96XA Underdosing of unspecified psychotropic drug, initial encounter; Z91.128 Patient's intentional underdosing of medication regimen for other reason; R45.851 Suicidal ideations; R44.0 Auditory hallucinations; J44.9 Chronic obstructive pulmonary disease, unspecified; F17.210 Nicotine dependence, cigarettes, uncomplicated
CPT/HCPCS: 99283

== ENCOUNTER 2018-12-09 21:44 | Emergency (ER) | payer MEDICAID, SELFPAY ==
[2018-12-09 21:50] VITALS: BP 108/78; PULSE 91; RESP 16; TEMP 36.5; O2SAT 95
--- NOTE | 2018-12-09 22:10 | DI.RAD_ITS ---
SYMPTOMS/DIAGNOSIS: LATERAL PAIN AFTER TRAUMA RIGHT KNEE: Three views. No acute fracture or dislocation is identified. There is an old healed fracture of the proximal fibula. The soft tissues are unremarkable. IMPRESSION: No acute abnormality.
--- NOTE | 2018-12-09 22:20 | W.ED.GENAD ---
Discharge Plan Disposition Patient Disposition: [facility] Condition: Stable Discharge Details Chief Complaint: PsychEval Clinical Impression: Suicidal ideation, Right knee sprain Primary Care Provider: Fariba Forde ED Provider: Rani Huffman Home Meds and New Rx's Prescriptions: No Action omeprazole 20 MG capsule,delayed release(DR/EC) 20 mg PO DAILY RF: 0 pravastatin 20 MG tablet 20 mg PO HS RF: 0 prazosin 2 MG capsule 2 mg PO HS RF: 0 levothyroxine 75 MCG tablet 75 mcg PO DAILY RF: 0 trazodone 150 mg Tablet 150 mg PO DAILY RF: 0 promethazine 25 mg Tablet 25 mg PO BID PRNRF: 0 melatonin 5 mg Tablet 5 mg PO HS PRNRF: 0 Vraylar 3 mg Capsule 3 mg PO DAILY RF: 0 nicotine 14 mg/24 hr Patch 24 Hour 14 mg Transdermal DAILY Qty: 0 RF: 0 bupropion HCl 100 mg Tablet Sustained-Release 12 Hr 200 mg PO HS Qty: 0 RF: 0 magnesium oxide 400 mg (241.3 mg magnesium) Tablet 400 mg PO DAILY Qty: 14 RF: 0 hydroxyzine HCl 25 mg Tablet 25 mg PO BID Qty: 0 RF: 0 lamotrigine [Lamictal] 100 mg Tablet 200 mg PO DAILY Qty: 0 RF: 0 Discharge Data Discharge Date/Time-TO BE ENTERED AT DEPARTURE: 12/10/18 13:36 Medical Decision Making <RENAE Vidal - Last Filed: 12/12/18 23:10> Patient 52-year-old male presents today with chief complaint of suicidality. He has been here multiple times for this historically. I have evaluated him for this as directed on multiple occasions. Patient has symmetrical forward and withdrawn than typical. He is crying on exam. Symptoms with things are going quite well for him compared to previous exams until the past 3 days increased symptoms. Patient did contact mental health. Was found by state police with bags of pills that he had intended to overdose with an local park. States that if discharged he would kill himself by overdose. Patient continues to report that he is given up. Patient is also endorsing some right-sided knee pain after altercation with local police. On exam, patient has an abrasion on the lateral aspect of the knee. Pain is primarily over the proximal fibula. Ligamentous exam is intact. Range of motion is limited to approximately 90 degrees secondary to pain along the lateral aspect of the knee. No effusion. No evidence of infection. Will find tetanus status. Plan to have mental health evaluated the patient. We will continue to monitor with patient observer. Patient has refused to remove the stretcher, please did evaluate him and want him. Patient is feeling anxious right now, will give oral Ativan. Will give Tylenol and ibuprofen to help with discomfort. X-ray without acute abnormality per radiology report. Discussed this finding with the patient. He is requesting an James wrap and given no suicidal ideations at this time I am hesitant to give him this peer Labs concerning for elevated white count of 17, patient has had leukocytosis historically. TSH is elevated at 6.39 with free T4 remains normal at 1. Labs otherwise no significant abnormality. Patient does have positive THC screen. Patient was evaluated by mental health who feels that voluntary admission is appropriate at this time. They do feel the patient is a risk to himself. Referrals to local psychiatric facilities have been sent. At the end of my shift, care transition to Dr. Majano disposition pending <Francisco Majano MD - Last Filed: 12/21/18 00:18> 00:00 -- Care signed out by RENAE Gustafson. Please see her documentation regarding initial ED presentation and course. No acute medical condition identified. Patient has been seen by mental health crisis screener and determination made for admission to psychiatric treatment bed. Patient is here voluntarily. Unfortunately, while there are likely beds available for transfer, no facility is able to accept the patient at this hour. Plan to hold here in the emergency department until psychiatric treatment facility can accept the patient hopefully in the morning. Patient has a care plan established. One-to-one observation is to be maintained. 7:15 --patient has remained stable overnight. 8:25 -- I spoke with [facility] nurse - case to be discussed with physician office professional. Care signed out to Dr. Huffman. <Rani Huffman DO - Last Filed: 12/10/18 11:27> 0800 -- Please see previous providers notes for initial presentation, exam, plan and ongoing progress. Case endorsed to follow-up with mental health regarding final disposition. 1030 --patient given his regular daily meds. Toshia called requesting further evaluation of patient's leukocytosis. He has had chronic leukocytosis. White blood cell count 17. Repeat CBC noted white blood cell count 15 and lactate normal at 1.1. Patient appears nontoxic. Urinalysis negative. He denies any other acute infectious symptoms. He did complain of right knee pain s/p twisting injury w/ altercation w/ police yesterday. His x-ray was negative. Bedside exam without ligamentous instability or obvious evidence of trauma. Concern for giving James wrap due to suicidality. Ice placed to anterior knee and a dose of Motrin given. 1100 -- pt accepted to [place] - accepting physician Dr. Gallegos. Medical Records Medical records reviewed: Yes I reviewed the patient's medical records. Lab Data Lab results reviewed: Yes I reviewed the patient's lab results. Laboratory Tests Range/Units 12/09/18 12/09/18 12/09/18 22:21 22:21 22:21 WBC (4.4-10.8) k/cumm 17.81 H RBC (4.50-6.00) m/cumm 5.29 Hgb (13.5-17.5) g/dL 15.1 Hct (40.0-50.0) % 44.5 MCV (80-95) fL 84.1 MCH (27.0-33.0) pg 28.5 MCHC (32.0-36.0) g/dL 33.9 RDW (11.8-14.1) % 14.2 H Plt Count (130-400) x1000/uL 219 MPV (8.0-11.0) fL 10.0 Immature Gran % 0.3 Neutrophils % 79.4 Lymphocytes % 14.1 Monocytes % 4.8 Eosinophils % 1.2 Basophils % 0.2 Absolute Neutrophils (1.2-6.7) k/cumm 14.14 H Absolute Lymphocytes (1.2-3.4) k/cumm 2.51 Absolute Monocytes (0.11-0.7) k/cumm 0.85 H Absolute Eosinophils (0.0-0.7) k/cumm 0.21 Absolute Basophils (0.0-0.2) k/cumm 0.04 Sodium (136-145) mmol/L 138 Potassium (3.5-5.1) mmol/L 3.8 Chloride (98-107) mmol/L 102 Carbon Dioxide (21.0-32.0) mmol/L 26.3 Anion Gap (3-11) mmol/L 9.7 BUN (7-18) mg/dL 19 H Creatinine (0.70-1.30) mg/dL 0.96 Estimated GFR/1.73 m2 (mL/min/1.73m2) >= 60.00 Glucose (70-100) mg/dL 118 H Lactate (0.6-1.4) mmol/l Calcium (8.5-10.1) mg/dL 8.8 Total Bilirubin (0.2-1.0) mg/dL 0.3 AST (15-37) U/L 17 ALT (12-78) U/L 25 Alkaline Phosphatase (46-116) U/L 107 Total Protein (6.4-8.2) g/dL 7.5 Albumin (3.4-5.0) g/dL 3.6 TSH (0.36-3.74) uIU/mL 6.39 H Free T4 (0.76-1.46) ng/dL Urine Color (Yellow) Urine Clarity (Clear) Urine pH (5-8) Ur Specific [place] (1.005-1.025) Urine Protein (Negative) mg/dL Urine Ketones (Negative) mg/dL Urine Blood (Negative) Urine Nitrite (Negative) Urine Bilirubin (Negative) Urine Urobilinogen (Up TO 0.2) EU/dL Ur Leukocyte Esterase (Negative) Urine Glucose (Negative) mg/dL Salicylates (2.8-20.0) mg/dL < 2.8 L Urine Opiates Screen (Negative) Urine Methadone Screen (Negative) Acetaminophen (10-30) ug/mL < 2 L Ur Barbiturates Screen (Negative) Ur Tricyclics Screen (Negative) Ur Amphetamines Screen (Negative) U Benzodiazepines Scrn (Negative) Urine Cocaine Screen (Negative) Ur THC Screen (Negative) Ethyl Alcohol (<3) mg/dL < 3.0 Range/Units 12/09/18 12/09/18 12/09/18 22:21 23:55 23:55 WBC (4.4-10.8) k/cumm RBC (4.50-6.00) m/cumm Hgb (13.5-17.5) g/dL Hct (40.0-50.0) % MCV (80-95) fL MCH (27.0-33.0) pg MCHC (32.0-36.0) g/dL RDW (11.8-14.1) % Plt Count (130-400) x1000/uL MPV (8.0-11.0) fL Immature Gran % Neutrophils % Lymphocytes % Monocytes % Eosinophils % Basophils % Absolute Neutrophils (1.2-6.7) k/cumm Absolute Lymphocytes (1.2-3.4) k/cumm Absolute Monocytes (0.11-0.7) k/cumm Absolute Eosinophils (0.0-0.7) k/cumm Absolute Basophils (0.0-0.2) k/cumm Sodium (136-145) mmol/L Potassium (3.5-5.1) mmol/L Chloride (98-107) mmol/L Carbon Dioxide (21.0-32.0) mmol/L Anion Gap (3-11) mmol/L BUN (7-18) mg/dL Creatinine (0.70-1.30) mg/dL Estimated GFR/1.73 m2 (mL/min/1.73m2) Glucose (70-100) mg/dL Lactate (0.6-1.4) mmol/l Calcium (8.5-10.1) mg/dL Total Bilirubin (0.2-1.0) mg/dL AST (15-37) U/L ALT (12-78) U/L Alkaline Phosphatase (46-116) U/L Total Protein (6.4-8.2) g/dL Albumin (3.4-5.0) g/dL TSH (0.36-3.74) uIU/mL Free T4 (0.76-1.46) ng/dL 1.00 Urine Color (Yellow) Yellow Urine Clarity (Clear) Sl cloudy Urine pH (5-8) 7.5 Ur Specific [place] (1.005-1.025) 1.015 Urine Protein (Negative) mg/dL Negative Urine Ketones (Negative) mg/dL Negative Urine Blood (Negative) Negative Urine Nitrite (Negative) Negative Urine Bilirubin (Negative) Negative Urine Urobilinogen (Up TO 0.2) EU/dL 0.2 Ur Leukocyte Esterase (Negative) Negative Urine Glucose (Negative) mg/dL Negative Salicylates (2.8-20.0) mg/dL Urine Opiates Screen (Negative) Negative Urine Methadone Screen (Negative) Negative Acetaminophen (10-30) ug/mL Ur Barbiturates Screen (Negative) Negative Ur Tricyclics Screen (Negative) Negative Ur Amphetamines Screen (Negative) Negative U Benzodiazepines Scrn (Negative) Negative Urine Cocaine Screen (Negative) Negative Ur THC Screen (Negative) Positive Ethyl Alcohol (<3) mg/dL Range/Units 12/10/18 12/10/18 10:06 10:06 WBC (4.4-10.8) k/cumm 15.54 H RBC (4.50-6.00) m/cumm 5.66 Hgb (13.5-17.5) g/dL 15.9 Hct (40.0-50.0) % 47.5 MCV (80-95) fL 83.9 MCH (27.0-33.0) pg 28.1 MCHC (32.0-36.0) g/dL 33.5 RDW (11.8-14.1) % 14.3 H Plt Count (130-400) x1000/uL 229 MPV (8.0-11.0) fL 9.9 Immature Gran % 0.3 Neutrophils % 77.6 Lymphocytes % 14.4 Monocytes % 6.6 Eosinophils % 1.0 Basophils % 0.1 Absolute Neutrophils (1.2-6.7) k/cumm 12.06 H Absolute Lymphocytes (1.2-3.4) k/cumm 2.24 Absolute Monocytes (0.11-0.7) k/cumm 1.03 H Absolute Eosinophils (0.0-0.7) k/cumm 0.16 Absolute Basophils (0.0-0.2) k/cumm 0.02 Sodium (136-145) mmol/L Potassium (3.5-5.1) mmol/L Chloride (98-107) mmol/L Carbon Dioxide (21.0-32.0) mmol/L Anion Gap (3-11) mmol/L BUN (7-18) mg/dL Creatinine (0.70-1.30) mg/dL Estimated GFR/1.73 m2 (mL/min/1.73m2) Glucose (70-100) mg/dL Lactate (0.6-1.4) mmol/l 1.1 Calcium (8.5-10.1) mg/dL Total Bilirubin (0.2-1.0) mg/dL AST (15-37) U/L ALT (12-78) U/L Alkaline Phosphatase (46-116) U/L Total Protein (6.4-8.2) g/dL Albumin (3.4-5.0) g/dL TSH (0.36-3.74) uIU/mL Free T4 (0.76-1.46) ng/dL Urine Color (Yellow) Urine Clarity (Clear) Urine pH (5-8) Ur Specific [place] (1.005-1.025) Urine Protein (Negative) mg/dL Urine Ketones (Negative) mg/dL Urine Blood (Negative) Urine Nitrite (Negative) Urine Bilirubin (Negative) Urine Urobilinogen (Up TO 0.2) EU/dL Ur Leukocyte Esterase (Negative) Urine Glucose (Negative) mg/dL Salicylates (2.8-20.0) mg/dL Urine Opiates Screen (Negative) Urine Methadone Screen (Negative) Acetaminophen (10-30) ug/mL Ur Barbiturates Screen (Negative) Ur Tricyclics Screen (Negative) Ur Amphetamines Screen (Negative) U Benzodiazepines Scrn (Negative) Urine Cocaine Screen (Negative) Ur THC Screen (Negative) Ethyl Alcohol (<3) mg/dL HPI <RENAE Vidal - Last Filed: 12/12/18 23:10> General Mode of arrival: EMS. Date/Time Provider Initiated Documentation: 12/09/18 21:54. Limitations to Documentation: no limitations. Information obtained by: patient, EMS and RN notes reviewed. HPI Narrative: Patient is a 52 year old male, well known to department, with c/c of suicidal ideation. He reports that he had been doing quite well until 3 days ago. States that he has given up. He is all done. [facility] that he was going to overdose on medications. States he has been burning himself with cigarrettes. 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 Reports he has not taken his medications are slept in the past 3 days. He has not had any p.o. intake. Denies any thoughts of homicidal ideation. Patient is also endorsing some right knee pain. Reports that [facility] reporting that he was in a local park, police arrived at their request. States that he did provoke police and that they took me down. Is endorsing lateral right knee pain since the altercation and states pain is worse with ambulation. Related Data Home Medications Medication Instructions Recorded Confirmed omeprazole 20 mg PO DAILY 10/16/13 12/09/18 pravastatin 20 mg PO HS 06/22/17 12/09/18 prazosin 2 mg PO HS 06/22/17 12/09/18 levothyroxine 75 mcg PO DAILY 08/17/17 12/09/18 Vraylar 3 mg PO DAILY 05/07/18 12/09/18 melatonin 5 mg PO HS PRN 05/07/18 12/09/18 promethazine 25 mg PO BID PRN 05/07/18 12/09/18 trazodone 150 mg PO DAILY 05/07/18 12/09/18 bupropion HCl 200 mg PO HS #0 tab 05/09/18 12/09/18 hydroxyzine HCl 25 mg PO BID #0 tab 05/09/18 12/09/18 lamotrigine [Lamictal] 200 mg PO DAILY #0 tab 05/09/18 12/09/18 magnesium oxide 400 mg PO DAILY #14 tab 05/09/18 12/09/18 nicotine 14 mg TRANSDERMAL DAILY #0 ea 05/09/18 12/09/18 Previous Rx's Medication Instructions Recorded bupropion HCl 200 mg PO HS #0 tab 05/09/18 hydroxyzine HCl 25 mg PO BID #0 tab 05/09/18 lamotrigine [Lamictal] 200 mg PO DAILY #0 tab 05/09/18 magnesium oxide 400 mg PO DAILY #14 tab 05/09/18 nicotine 14 mg TRANSDERMAL DAILY #0 ea 05/09/18 Allergies Allergy/AdvReac Type Severity Reaction Status Date / Time Sulfa (Sulfonamide Allergy Severe Swelling/Ed Unverified 12/17/18 11:02 Antibiotics) jostin General Stated Complaint: PsychEval ABA: 2 Review of Systems <RENAE Vidal - Last Filed: 12/12/18 23:10> Constitutional Reports as per HPI, Denies chills, Denies fatigue, Denies fever(s), Denies headache(s) and Denies weakness Eyes Denies change in vision ENT Denies headache(s) Cardiovascular Reports as per HPI, Denies chest pain, Denies lightheadedness, Denies dyspnea and Denies dyspnea on exertion Respiratory Reports as per HPI, Denies cough, Denies dyspnea and Denies dyspnea on exertion Gastrointestinal Reports as per HPI, Denies abdominal pain, Denies change in bowel habits, Denies nausea and Denies vomiting Genitourinary Denies system reviewed and no additional complaints, except as docu (denies any change in urinary habits) Musculoskeletal Reports abnormal gait (antalgic), Denies deformity, Denies joint swelling, Reports limited range of motion and Denies numbness Integumentary/Breasts Reports as per HPI and Reports wounds (abrasion to right lateral knee) Neurologic Denies abnormal movements, Denies abnormal speech, Reports abnormal gait (antalgic), Denies confusion, Denies headache(s), Denies numbness, Denies paresthesias and Denies weakness Psychiatric Reports as per HPI, Reports abnormal sleep pattern, Reports anxiety, Denies confusion, Reports hopelessness, Denies irritability, Reports mood swings, Denies panic attacks, Denies visual hallucinations, Denies hallucinations and Reports suicidal ideation Endocrine Denies fatigue PFSH <RENAE Vidal - Last Filed: 12/12/18 23:10> Medical History Anxiety (Chronic) Bipolar disorder (Chronic) GERD (gastroesophageal reflux disease) (Chronic) Hypothyroid (Chronic) Traumatic pneumothorax (Inactive) Surgical History History of ankle surgery (Inactive) S/P thoracostomy tube placement (Inactive) Social History Smoking/Tobacco Use Status: Current every day Tobacco Type: cigarettes Alcohol Intake: never Drug use: Daily Substance use type: marijuana Do you feel safe at home: Yes Do you feel safe in your relationship?: Yes Exam <RENAE Vidal - Last Filed: 12/12/18 23:10> Const General: cooperative, healthy appearing, comfortable, no acute distress, well developed and well groomed Nutritional Appearance: average body habitus and well nourished Orientation: alert and awake Eyes General: appearance normal, both eyes and all related structures Resp Effort & Inspection: normal respiratory effort, able to speak in complete sentences and no respiratory distress Auscultation: clear to auscultation bilaterally, no rales, no rhonchi and no wheezes Cardio Rate: regular rate Rhythm: regular rhythm Heart Sounds: S1 normal and S2 normal Skin General skin exam: dry skin (face, particularly around nose) Trauma: abrasion (right lateral calf) Neuro General: alert and awake Cognition: normal cognition Speech: speech normal Gait: antalgic Motor: muscle tone normal throughout and strength 5/5 throughout Sensory Exam: no sensory deficits noted Extrem Right lower extremity: normal capillary refill, no joint enlargement, hip/thigh Details: normal to inspection and normal ROM; no tenderness and no swelling, knee Details: tenderness Location: of the lateral joint line, abnormal ROM Details: pain with passive ROM during Details: in flexion, knee ligament exam normal Details: anterior drawer test normal, posterior drawer test normal, valgus stress test normal, varus stress test normal and pain with axial loading and abrasion; no swelling, no lacerations, no ecchymosis, no crepitus, no deformity and no unusual warmth and ankle Details: normal to inspection, no edema and normal ROM; no tenderness and no swelling; abnormal to inspection (abrasion to lateral RLE), ROM limited (flexion limited to 90) and no edema Psych Appearance: grossly normal Mental Status: mental status grossly normal Speech and Movement: speech and movement normal Mood: anxious mood Affect: sad Attitude: cooperative Thought Process: normal Thought Content: suicidality Insight: fair Judgment: poor Course <RENAE Vidal - Last Filed: 12/12/18 23:10> Vital Signs Temperature 36.5 C 12/09/18 21:50 Pulse 91 H 12/09/18 21:50 Respiratory Rate 16 12/09/18 21:50 Blood Pressure 108/78 12/09/18 21:50 Pulse Oximetry 95 12/09/18 21:50 Temperature 36.5 C 12/09/18 21:50 Temperature Source Skin 12/09/18 21:50 Pulse 91 H 12/09/18 21:50 Respiratory Rate 16 12/09/18 21:50 Respiratory Effort Non-Labored 12/09/18 21:52 Blood Pressure 108/78 12/09/18 21:50 Pulse Oximetry 95 12/09/18 21:50 Pain Level 5 12/09/18 21:50 Sign Out <RENAE Vidal - Last Filed: 12/12/18 23:10> Sign Out Data: Sign Out Comment: Care transitioned to Dr. Majano. Plan for patient to be voluntarily admitted to psychiatric facility. Referrals have been sent. Last updated by Kandace Gustafson PA at 12/10/18 00:29 Sign Out Comment: Care signed out to Dr. Huffman --awaiting psychiatric bed. Last updated by Francisco Majano MD at 12/10/18 08:27
[2018-12-09] MEDS: Ibuprofen 600 MG TAB PO (22:39)
[2018-12-09 22:40] LABS: Abs Immature Grans 0.05 k/cumm (0.0-0.09); Absolute Monocyte Count 0.85 k/cumm (0.11-0.7); Absolute Neutrophil Count 14.14 k/cumm (1.2-6.7); Basophils % 0.2; Eosinophils % 1.2; HCT 44.5 % (40.0-50.0); HGB 15.1 g/dL (13.5-17.5); Immature Grans % 0.3; Lymphocytes % 14.1; Mean Corp. HGB Concentration 33.9 g/dL (32.0-36.0); Mean Corpuscular Hemoglobin 28.5 pg (27.0-33.0); Mean Corpuscular Volume 84.1 fL (80-95); Monocytes % 4.8; Neutrophils % 79.4; Platelet Count 219 x1000/uL (130-400); RBC 5.29 m/cumm (4.50-6.00); RBC Distribution Width 14.2 % (11.8-14.1); White Blood Cell Count 17.81 k/cumm (4.4-10.8)
[2018-12-09] MEDS: LORazepam 1 MG TAB PO (22:40)
[2018-12-09] MEDS: Acetaminophen 325 MG TAB 650 MG PO (22:40)
--- NOTE | 2018-12-09 22:42 | PDOC.MHCN_ITS ---
Date of service: 12/09/18 Time of Service: 22:03 Mental Health Crisis Note Presenting Issue How did you arrive at the ED and why did you come: Patient arrived at the ED as a result of Emergency services worker contacting State police to do a well check, due to patient calling [facility] and stating that he had a bag of pills and razor blades in his back pocket and he didn't want to live anymore. Precipitating Factors Patient admitted to having a plan to kill himself, using razor blade to slit his throat or taking all the pills in his bag. Patient stated that he has been stock piling his medication. Patient shared that he stopped taking his medication for 3 days and has not gone to work for the past 3 days and wants to just give up. Patient stated that he does not have any friends or family and his dog recently . Patient stated that he tried to take on the 6 state troopers that came to check on him and wished they had just shot him and ended it right there. Patient stated that he is dealing with a lot of emotions right now and just can't handle it anymore. Patient stated his 53 birthday is coming up and he has nothing to show for it, it will be just another day. Patient stated that he did not trust himself to be home so [facility]. Disposition BEHAVIOR: cooperative EYE CONTACT: good MOOD: depressed AFFECT: flat APPETITE: not eating SLEEP(trouble falling/staying asleep: not sleeping Plan Patient will stay at [facility] awaiting psychiatric hospitalization, This worker sent referrals to [facility], [facility] [place] as patient agreed he needs to get help because something needs to change. Signature Clinician's Name/Title: Manpreet Leggett Emergency clinician
[2018-12-09 22:43] LABS: Absolute Basophil Count 0.04 k/cumm (0.0-0.2); Absolute Eosinophil Count 0.21 k/cumm (0.0-0.7); Absolute Lymphocyte Count 2.51 k/cumm (1.2-3.4)
[2018-12-09 22:56] LABS: ALT 25 U/L (12-78); AST 17 U/L (15-37); Albumin 3.6 g/dL (3.4-5.0); Alkaline Phosphatase 107 U/L (46-116); Anion Gap 9.7 mmol/L (3-11); BUN 19 mg/dL (7-18); Bilirubin, Total 0.3 mg/dL (0.2-1.0); CO2 26.3 mmol/L (21.0-32.0); CREATININE 0.96 mg/dL (0.70-1.30); Calcium 8.8 mg/dL (8.5-10.1); Chloride 102 mmol/L (98-107); Glucose 118 mg/dL (70-100); Potassium 3.8 mmol/L (3.5-5.1); Sodium 138 mmol/L (136-145); TSH 6.39 uIU/mL (0.36-3.74); Total Protein 7.5 g/dL (6.4-8.2)
--- NOTE | 2018-12-09 22:56 | DI.VRAD_ITS ---
EXAM: XR Right Knee EXAM DATE/TIME: 12/09/2018 10:11 PM CLINICAL HISTORY: 52 years old, male; Knee; Right; Patient HX: Lateral pain after trauma TECHNIQUE: Imaging protocol: XR Right knee. Views: 3 views. COMPARISON: CR RIGHT TIB/FIB 05/03/2015 10:41 AM FINDINGS: Bones/joints: Preserved anatomic alignment. Preserved the bone density. There is an old/healed fracture of the proximal fibula. No acutely displaced fracture or dislocation. No significant joint effusion. Soft tissues: No significant soft tissue swelling. IMPRESSION: Negative for acute skeletal pathology. Dictated and Authenticated by: Joens Arredondo MD. Ordering:CASEY Jeronimo MD
[2018-12-09 23:05] LABS: Salicylate < 2.8 mg/dL (2.8-20.0)
[2018-12-09 23:07] LABS: Acetaminophen < 2 ug/mL (10-30)
[2018-12-09 23:11] LABS: ETHANOL BLOOD < 3.0 mg/dL (<3)
[2018-12-10 00:09] LABS: Bilirubin Negative (Negative); Blood Negative (Negative); Clarity Sl Cloudy (Clear); Glucose Negative (Negative); Ketones Negative (Negative); Leukocyte Esterase Negative (Negative); Nitrite Negative (Negative); Specific Gravity 1.015 (1.005-1.025); Urobilinogen 0.2 EU/dL (Up TO 0.2); pH 7.5 (5-8)
--- NOTE | 2018-12-10 00:18 | CMSP_ITS ---
Care Management Safety Plan VOLUNTARY STATUS FOR INPATIENT STABILIZATION: Asim remains in the Emergency Department and has been cooperative since arriving at [facility] and is interacting appropriately with staff members. Remains at risk with Suicidal ideation and a plan to take an overdose of prescription medication. Frontline Acoustic Sensor Operator, Jeimy, contacted and she will meet with Asim and seek inpatient admission if a bed is available. Huddle Participants: RENAE Vidal, KADEN Case, SEAMUS Coppola Stonecutter Apprentice Hand, ANDREI Cross RN, and this CM. Date and time: 12/09/18 @ 2330 12/09/18 at 23:30 ED Room #9 MM: Voluntary Status Safety plan has been established with patient, and care team, to adhere to patient goals, identify restrictions based on behavioral status, address nutrition, and determine allowed personal belongings, tools for hygiene and personal care. Determine level of activity including ambulation, level of supervision, visitors, and determine privileges based on behaviors and level of engagement by pt. SAFETY PLAN: 1. Will remain on suicide precautions. In Paper Clothes which he has not agreed to do at this point. He has had a complete wanding done by Security. 2. Will remain in room under direct observation one-on-one CPSO staff at all times provided by DONTAE, JARRETT senior label specialist. 3. May have paper cups, plates, finger foods and safety spoon 4. Follow [facility] Management of the Admitted Behavioral Health Patient policy. 5. Comfort bath system only. 6. No personal belongings 7. Visitors - None at this time 8. Activities - May have crayons and paper 9. Bathroom privilege: may go to the bathroom with staff escort. 10. May have TV and remote if available 11. Milieu Therapist will coordinate a transfer from ED to /S pending bed availability and staffing. 12. Voluntary Status. If Asim wishes to leave [facility] the [facility] roundhouse worker must be contacted to re-evaluate his condition prior to exiting the facility. KADEN Case, has contacted local facilities in regards to availability and will send clinical information for referral. Clinical [facility] There are no beds available tonight. Anticipate one will be available tomorrow. KADEN Dean will follow in the morning and resume search for available inpatient bed. Patient is currently Voluntarily at [facility] and seeking inpatient admission when a bed becomes available. [facility] Frontline Acoustic Sensor Operator will continue seeking placement. Please contact the Community Resource Consultant [facility] ([phone]) and [facility] Acoustic Sensor Operator ([phone]) for any needed changes in the Safety Plan. Safety plan has been provided to interdepartmental care team including Clinical Coordinator, Nursing Stonecutter Apprentice Hand.
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
[2018-12-10 00:20] LABS: *AMPHETAMINES SCREEN URINE Negative (Negative); *BARBITURATES SCREEN URINE Negative (Negative); *BENZODIAZEPINES SCREEN URINE Negative (Negative); Cannabinoids THC POSITIVE (Negative); Cocaine Screen,Urine Negative (Negative); METHADONE URINE SCREEN Negative (Negative); OPIATES URINE SCREEN Negative (Negative); Tricyclic Antidepressants Negative (Negative)
[2018-12-10] MEDS: Acetaminophen 325 MG TAB 650 MG PO (07:35)
--- NOTE | 2018-12-10 08:33 | NUR.NOTE ---
pt sleeping. Nursing Note:
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
[2018-12-10 10:10] LABS: Lactate-non-spesis 1.1 mmol/l (0.6-1.4)
[2018-12-10 10:11] LABS: Abs Immature Grans 0.04 k/cumm (0.0-0.09); Absolute Basophil Count 0.02 k/cumm (0.0-0.2); Basophils % 0.1; HCT 47.5 % (40.0-50.0); HGB 15.9 g/dL (13.5-17.5); Immature Grans % 0.3; Lymphocytes % 14.4; Mean Corp. HGB Concentration 33.5 g/dL (32.0-36.0); Mean Corpuscular Hemoglobin 28.1 pg (27.0-33.0); Mean Corpuscular Volume 83.9 fL (80-95); Mean Platelet Volume 9.9 fL (8.0-11.0); Monocytes % 6.6; Neutrophils % 77.6; Platelet Count 229 x1000/uL (130-400); RBC 5.66 m/cumm (4.50-6.00); RBC Distribution Width 14.3 % (11.8-14.1); White Blood Cell Count 15.54 k/cumm (4.4-10.8)
[2018-12-10 10:12] LABS: Absolute Eosinophil Count 0.16 k/cumm (0.0-0.7); Absolute Lymphocyte Count 2.24 k/cumm (1.2-3.4); Absolute Monocyte Count 1.03 k/cumm (0.11-0.7); Absolute Neutrophil Count 12.06 k/cumm (1.2-6.7)
[2018-12-10] MEDS: lamoTRIgine 100 MG TAB 200 MG PO (10:32)
[2018-12-10] MEDS: hydrOXYzine HCL 25 MG TAB PO (10:33)
[2018-12-10] MEDS: Levothyroxine 75 MCG TAB PO (10:33)
[2018-12-10] MEDS: traZODone 50 MG TAB 150 MG PO (10:34)
[2018-12-10 10:48] VITALS: BP 131/89; PULSE 92; RESP 15; TEMP 36.9; O2SAT 98
[2018-12-10] MEDS: Ibuprofen 600 MG TAB PO (10:52)
--- NOTE | 2018-12-10 12:19 | NUR.NOTE ---
report was given to the accepiting nurse at [facility] by me and pt care was turned over to valarie WAY Nursing Note:
[2018-12-10 13:38] VITALS: BP 131/88; PULSE 88; RESP 16; TEMP 36.8; O2SAT 97
== END 2018-12-10 13:36 | disposition short-term general hospital (02) ==
PROVIDERS: Physician Assistant; Emergency Provider Physician Assistant; PCP Nurse Practitioner
DX: F32.9 Major depressive disorder, single episode, unspecified (principal); R45.851 Suicidal ideations; S83.91XA Sprain of unspecified site of right knee, initial encounter; X50.9XXA Other and unspecified overexertion or strenuous movements or postures, initial encounter
CPT/HCPCS: 36415; 73562; 80053; 80307; 99285; 80320; 80329; 81003; 83605; 84439; 84443; 85025; 99284

== ENCOUNTER 2018-12-17 10:53 | Emergency (ER) | payer MEDICAID, SELFPAY ==
[2018-12-17 10:59] VITALS: BP 122/87; PULSE 90; RESP 12; TEMP 36.4; O2SAT 94
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
--- NOTE | 2018-12-17 11:30 | DI.RAD_ITS ---
SYMPTOM/DIAGNOSIS: PAIN AFTER FALL. RIGHT KNEE: Four views. No acute fracture or dislocation is identified.
== END 2018-12-17 12:17 | disposition home or self-care (01) ==
PROVIDERS: Emergency Provider Physician Assistant; PCP Nurse Practitioner
DX: M25.561 Pain in right knee (principal); M25.461 Effusion, right knee; J44.9 Chronic obstructive pulmonary disease, unspecified; F17.210 Nicotine dependence, cigarettes, uncomplicated
CPT/HCPCS: 29505; 73562; 99283; 99282; L1820

== ENCOUNTER 2018-12-30 12:07 | Outpatient (REF) | payer MEDICAID, SELFPAY ==
[2018-12-30 19:55] LABS: TSH (W/Ref FT4) 2.33 uIU/mL (0.36-3.74)
== END 2018-12-30 12:27 ==
LOC: NCHCN 12:07
PROVIDERS: PCP Nurse Practitioner; Visit Provider Nurse Practitioner
DX: E03.9 Hypothyroidism, unspecified (principal)
CPT/HCPCS: 84443

== ENCOUNTER 2019-01-15 11:31 | Outpatient (CLI) | payer MEDICAID, SELFPAY ==
--- NOTE | 2019-01-15 10:08 | DI.RAD_ITS ---
SYMPTOMS/DIAGNOSIS: RT MEDIAL AND ANTERIOR KNEE PAIN, S/P INJURY RIGHT KNEE: Five views. No acute or healing fracture or dislocation is identified. There is a small joint effusion. There is a small enthesophyte at the superior aspect of the patella. IMPRESSION: No acute abnormality.
== END 2019-01-15 11:51 ==
PROVIDERS: PCP Nurse Practitioner; Visit Provider Student in an Organized Health Care Education/Training Program
DX: M25.561 Pain in right knee (principal); M25.461 Effusion, right knee; S89.91XA Unspecified injury of right lower leg, initial encounter
CPT/HCPCS: 73564

== ENCOUNTER 2019-04-01 13:56 | Emergency (ER) | payer MEDICAID, SELFPAY ==
[2019-04-01 14:02] VITALS: BP 129/86; PULSE 99; RESP 16; TEMP 36.6; O2SAT 98
--- NOTE | 2019-04-01 14:24 | DI.RAD_ITS ---
EXAM: XR CHEST 2V PA LATERAL INDICATION: fall, left rib pain. COMPARISON: CHEST 2 VIEWS PA,LAT from 01/29/2017 XR CHEST 2V PA LATERAL from 02/01/2018 XR CHEST 2V PA LATERAL from 02/27/2018 TECHNIQUE: 2D digital imaging was performed. FINDINGS: The heart size and pulmonary vasculature are within normal limits. The lungs are clear. No pleural effusion or pneumothorax is identified. There is an old nondisplaced, healed fracture of the posterior aspect of the left 9th rib. No acute fracture is identified. Mild degenerative changes are seen in the spine. IMPRESSION: No acute pulmonary process.
[2019-04-01] MEDS: Lidocaine 5% Patch 1 PATCH TP (14:39)
[2019-04-01] MEDS: Acetaminophen 325 MG TAB 650 MG PO (14:39)
--- NOTE | 2019-04-01 15:07 | ED.GENADUL_ITS ---
Discharge Plan Disposition Patient Disposition: HOME Discharge Details Chief Complaint: Chest/Rib Clinical Impression: Contusion of rib on left side, Fall Primary Care Provider: Fariba Forde ED Provider: Francisco Majano Home Meds and New Rx's Prescriptions: Continued omeprazole 20 MG capsule,delayed release(DR/EC) 20 mg PO DAILY RF: 0 hydroxyzine pamoate [Vistaril] 25 mg Capsule 25 mg PO BID PRNRF: 0 pravastatin 20 MG tablet 20 mg PO HS RF: 0 prazosin 2 MG capsule 2 mg PO HS RF: 0 levothyroxine 75 MCG tablet 75 mcg PO DAILY RF: 0 trazodone 150 mg Tablet 150 mg PO DAILY RF: 0 promethazine 25 mg Tablet 25 mg PO BID PRNRF: 0 melatonin 5 mg Tablet 5 mg PO HS PRNRF: 0 Vraylar 3 mg Capsule 3 mg PO DAILY RF: 0 nicotine 14 mg/24 hr Patch 24 Hour 14 mg Transdermal DAILY Qty: 0 RF: 0 bupropion HCl 100 mg Tablet Sustained-Release 12 Hr 200 mg PO HS Qty: 0 RF: 0 magnesium oxide 400 mg (241.3 mg magnesium) Tablet 400 mg PO DAILY Qty: 14 RF: 0 hydroxyzine HCl 25 mg Tablet 25 mg PO BID Qty: 0 RF: 0 lamotrigine [Lamictal] 100 mg Tablet 200 mg PO DAILY Qty: 0 RF: 0 Discharge Instructions Instructions: Rib Contusion (ED) Additional Instructions: Please take ibuprofen over the counter. Take 600mg by mouth every 6 hours as needed for pain. Please take acetaminophen (tylenol) - 650mg every 6 hours by mouth as needed for pain. Use incentive spirometer every 2 hours while awake for the next 1 week. Please contact your primary care physician to arrange follow-up. Return to the ER for any worsening or new concerning symptoms. Referrals: Fariba Forde [Primary Care Provider] - Discharge Data Discharge Date/Time-TO BE ENTERED AT DEPARTURE: 04/01/19 15:35 Medical Decision Making 53-year-old male presents after mechanical fall with injury to his left posterior ribs. Considered fracture versus contusion. Chest x-ray reviewed and interpreted by radiology: No acute process. Plan to treat with incentive spirometer, NSAIDs, supportive care for rib contusion. Usual and customary discharge instructions were provided. HPI General Mode of arrival: ambulatory . Date/Time Provider Initiated Documentation: 04/01/19 14:18 . Limitations to Documentation: no limitations . Information obtained by: patient . HPI Narrative: 53-year-old male presents after mechanical fall with injury to his left posterior ribs. Fall occurred about 6 hours ago when he slipped on ice and landed on the ground on his left side. Pain is moderate to severe and worse with deep inspiration. No associated abdominal pain. No shortness of breath. Patient denies head trauma and has no neck pain. Related Data Home Medications Medication Instructions Recorded Confirmed omeprazole 20 mg PO DAILY 10/16/13 04/01/19 pravastatin 20 mg PO HS 06/22/17 04/01/19 prazosin 2 mg PO HS 06/22/17 04/01/19 levothyroxine 75 mcg PO DAILY 08/17/17 04/01/19 Vraylar 3 mg PO DAILY 05/07/18 04/01/19 melatonin 5 mg PO HS PRN 05/07/18 04/01/19 promethazine 25 mg PO BID PRN 05/07/18 04/01/19 trazodone 150 mg PO DAILY 05/07/18 04/01/19 bupropion HCl 200 mg PO HS #0 tab 05/09/18 04/01/19 hydroxyzine HCl 25 mg PO BID #0 tab 05/09/18 04/01/19 lamotrigine [Lamictal] 200 mg PO DAILY #0 tab 05/09/18 04/01/19 magnesium oxide 400 mg PO DAILY #14 tab 05/09/18 04/01/19 nicotine 14 mg TRANSDERMAL DAILY #0 ea 05/09/18 04/01/19 hydroxyzine pamoate [Vistaril] 25 mg PO BID PRN 04/01/19 04/01/19 Previous Rx's Medication Instructions Recorded bupropion HCl 200 mg PO HS #0 tab 05/09/18 hydroxyzine HCl 25 mg PO BID #0 tab 05/09/18 lamotrigine [Lamictal] 200 mg PO DAILY #0 tab 05/09/18 magnesium oxide 400 mg PO DAILY #14 tab 05/09/18 nicotine 14 mg TRANSDERMAL DAILY #0 ea 05/09/18 Allergies Allergy/AdvReac Type Severity Reaction Status Date / Time Sulfa (Sulfonamide Allergy Severe Swelling/Ed Unverified 04/01/19 14:06 Antibiotics) jostin General Stated Complaint: Chest/Rib ABA: 4 Review of Systems Constitutional Constitutional: Denies fatigue and Denies headache(s) ENT Ears, Nose, Mouth, and Throat: Denies headache(s) Respiratory Respiratory: Reports as per HPI Gastrointestinal Gastrointestinal: Denies abdominal pain Musculoskeletal Musculoskeletal: Reports as per HPI Neurologic Neurologic: Denies headache(s) Endocrine Endocrine: Denies fatigue PFS Medical History Anxiety (Chronic) Bipolar disorder (Chronic) GERD (gastroesophageal reflux disease) (Chronic) Hypothyroid (Chronic) Traumatic pneumothorax (Inactive) Surgical History History of ankle surgery (Inactive) S/P thoracostomy tube placement (Inactive) Social History Smoking/Tobacco Use Status: Current every day Tobacco Type: cigarettes Alcohol Intake: never Drug use: Daily Substance use type: marijuana Do you feel safe at home: Yes Do you feel safe in your relationship?: Yes Exam Const General: cooperative and no acute distress HENMT Head: normocephalic and atraumatic Neck Neck: trachea midline and supple Chest Chest: tenderness (left lateral ribs) Resp Auscultation: clear to auscultation bilaterally, no rales, no rhonchi and no wheezes Cardio Jugular venous pressure: no JVD Rate: regular rate and not tachycardic Rhythm: regular rhythm GI Palpation: soft, not firm, no guarding, no masses, not rigid and nontender Skin General skin exam: no rashes or lesions noted Neuro General: alert, awake and tone normal Extrem General: no edema Psych Appearance: grossly normal Mental Status: mental status grossly normal Course Vital Signs Vital signs: Vital Signs Temperature 36.6 C 04/01/19 14:02 Pulse 99 H 04/01/19 14:02 Respiratory Rate 16 04/01/19 14:02 Blood Pressure 129/86 04/01/19 14:02 Pulse Oximetry 98 04/01/19 14:02 Temperature 36.6 C 04/01/19 14:02 Temperature Source Skin 04/01/19 14:02 Pulse 99 H 04/01/19 14:02 Respiratory Rate 16 04/01/19 14:02 Respiratory Effort 04/01/19 14:13 Respiratory Depth Normal 04/01/19 14:13 Respiratory Pattern Normal 04/01/19 14:13 Blood Pressure 129/86 04/01/19 14:02 Blood Pressure Position Sitting 04/01/19 14:02 Pulse Oximetry 98 04/01/19 14:02 Oxygen Delivery Method Room Air 04/01/19 14:02 Oxygen Flow Rate 0 04/01/19 14:02 Pain Level 4 04/01/19 14:02
== END 2019-04-01 15:35 | disposition home or self-care (01) ==
PROVIDERS: Emergency Provider Student in an Organized Health Care Education/Training Program; PCP Nurse Practitioner
DX: S20.222A Contusion of left back wall of thorax, initial encounter (principal); W00.0XXA Fall on same level due to ice and snow, initial encounter; Y93.H1 Activity, digging, shoveling and raking
CPT/HCPCS: 99283; 71046

== ENCOUNTER 2019-08-14 17:55 | Observation (INO) | payer MEDICAID, SELFPAY ==
[2019-08-14 18:02] VITALS: BP 138/95; PULSE 105; RESP 18; TEMP 36.8; O2SAT 95
--- NOTE | 2019-08-14 18:03 | ED.GENADUL_ITS ---
Discharge Plan Disposition Patient Disposition: [facility] INPATIENT Condition: Stable Discharge Details Chief Complaint: PsychEval Clinical Impression: Depression Primary Care Provider: Fariba Forde ED Provider: Asim Fierro Home Meds and New Rx's Prescriptions: No Action omeprazole 20 MG capsule,delayed release(DR/EC) 20 mg PO DAILY RF: 0 hydroxyzine pamoate [Vistaril] 25 mg Capsule 25 mg PO BID PRNRF: 0 pravastatin 20 MG tablet 20 mg PO HS RF: 0 prazosin 2 MG capsule 2 mg PO HS RF: 0 levothyroxine 75 MCG tablet 75 mcg PO DAILY RF: 0 trazodone 150 mg Tablet 150 mg PO DAILY RF: 0 promethazine 25 mg Tablet 25 mg PO BID PRNRF: 0 melatonin 5 mg Tablet 5 mg PO HS PRNRF: 0 Vraylar 3 mg Capsule 3 mg PO DAILY RF: 0 nicotine 14 mg/24 hr Patch 24 Hour 14 mg Transdermal DAILY Qty: 0 RF: 0 bupropion HCl 100 mg Tablet Sustained-Release 12 Hr 200 mg PO HS Qty: 0 RF: 0 magnesium oxide 400 mg (241.3 mg magnesium) Tablet 400 mg PO DAILY Qty: 14 RF: 0 hydroxyzine HCl 25 mg Tablet 25 mg PO BID Qty: 0 RF: 0 lamotrigine [Lamictal] 100 mg Tablet 200 mg PO DAILY Qty: 0 RF: 0 Medical Decision Making 53 yo male with hx of bipolar, copd, comes in with worsening depression over the past week due to the isolation involved with the covid pandemic. He has had thoughts of wanting to harm himself but hasn't tried to harm himself. Denies fevers, chills, weakness, vomit, alcohol use. Does use marijuana no other drug use. Is caox4 with normal gait and neuro exam with clear speech. No findings on history or physical to suggest underlying infectious or endocrine abnormality, he is medically cleared to see mental health patient remains stable. He met with mental health and is being made voluntary psychiatric bed search. Will admit pending psychiatric placement Differential Diagnosis Differential Diagnosis: depression, si Medical Records Medical records reviewed: Yes I reviewed the patient's medical records. Lab Data Lab results reviewed: Yes I reviewed the patient's lab results. HPI General Mode of arrival: ambulatory . Date/Time Provider Initiated Documentation: 08/14/19 17:55 . Limitations to Documentation: no limitations . Information obtained by: patient . History of Present Illness 53 year old M presents to the emergency department with the chief complaint of I can't live this isolated, No relieving factors improve symptom(s), No exacerbating factors reported . Patient did receive the following treatments prior to arrival, none Related Data Home Medications Medication Instructions Recorded Confirmed omeprazole 20 mg PO DAILY 10/16/13 08/14/19 pravastatin 20 mg PO HS 06/22/17 08/14/19 prazosin 2 mg PO HS 06/22/17 08/14/19 levothyroxine 75 mcg PO DAILY 08/17/17 08/14/19 Vraylar 3 mg PO DAILY 05/07/18 08/14/19 melatonin 5 mg PO HS PRN 05/07/18 08/14/19 promethazine 25 mg PO BID PRN 05/07/18 08/14/19 trazodone 150 mg PO DAILY 05/07/18 08/14/19 bupropion HCl 200 mg PO HS #0 tab 05/09/18 08/14/19 hydroxyzine HCl 25 mg PO BID #0 tab 05/09/18 08/14/19 lamotrigine [Lamictal] 200 mg PO DAILY #0 tab 05/09/18 08/14/19 magnesium oxide 400 mg PO DAILY #14 tab 05/09/18 08/14/19 nicotine 14 mg TRANSDERMAL DAILY #0 ea 05/09/18 08/14/19 hydroxyzine pamoate [Vistaril] 25 mg PO BID PRN 04/01/19 08/14/19 Previous Rx's Medication Instructions Recorded bupropion HCl 200 mg PO HS #0 tab 05/09/18 hydroxyzine HCl 25 mg PO BID #0 tab 05/09/18 lamotrigine [Lamictal] 200 mg PO DAILY #0 tab 05/09/18 magnesium oxide 400 mg PO DAILY #14 tab 05/09/18 nicotine 14 mg TRANSDERMAL DAILY #0 ea 05/09/18 Allergies Allergy/AdvReac Type Severity Reaction Status Date / Time Sulfa (Sulfonamide Allergy Severe Swelling/Ed Unverified 08/14/19 18:07 Antibiotics) jostin General ABA: 4 Review of Systems All systems reviewed & are unremarkable except as noted in HPI and below Constitutional Constitutional: Denies chills, Denies fever(s) and Denies weakness Cardiovascular Cardiovascular: Denies chest pain and Denies dyspnea Respiratory Respiratory: Denies cough and Denies dyspnea Gastrointestinal Gastrointestinal: Denies abdominal pain, Denies nausea and Denies vomiting Musculoskeletal Musculoskeletal: Denies joint swelling Neurologic Neurologic: Denies weakness [facility] Social History Smoking/Tobacco Use Status: Current every day Tobacco Type: cigarettes Alcohol Intake: never Drug use: Daily Substance use type: marijuana Do you feel safe at home: Yes Do you feel safe in your relationship?: Yes Exam Const General: no acute distress Orientation: alert HENMT Head: normal to inspection Ears: external ears normal General nose exam: external nose normal Mouth: moist mucous membranes Eyes General: appearance normal, both eyes and all related structures Neck Neck: normal visual inspection Resp Effort & Inspection: normal respiratory effort and able to speak in complete sentences Cardio Rate: regular rate Skin General skin exam: no rashes or lesions noted Neuro General: patient alert and patient oriented x3 Extrem General: normal to inspection
[2019-08-14 18:17] LABS: Abs Immature Grans 0.02 k/cumm (0.0-0.09); Absolute Basophil Count 0.03 k/cumm (0.0-0.2); Absolute Lymphocyte Count 2.01 k/cumm (1.2-3.4); Absolute Monocyte Count 0.64 k/cumm (0.11-0.7); Absolute Neutrophil Count 6.05 k/cumm (1.2-6.7); Basophils % 0.3; Eosinophils % 2.2; HCT 44.2 % (40.0-50.0); HGB 15.1 g/dL (13.5-17.5); Immature Grans % 0.2 %; Lymphocytes % 22.5; Mean Corp. HGB Concentration 34.2 g/dL (32.0-36.0); Mean Corpuscular Hemoglobin 28.5 pg (27.0-33.0); Mean Corpuscular Volume 83.4 fL (80-95); Mean Platelet Volume 9.9 fL (8.0-11.0); Monocytes % 7.2; Neutrophils % 67.6; Platelet Count 186 x1000/uL (130-400); RBC Distribution Width 13.5 % (11.8-14.1); White Blood Cell Count 8.95 k/cumm (4.4-10.8)
[2019-08-14 18:39] LABS: ALT 31 U/L (16-63); AST 26 U/L (15-37); Albumin 3.9 g/dL (3.4-5.0); Alkaline Phosphatase 118 U/L (46-116); Anion Gap 10.5 mmol/L (3-11); BUN 18 mg/dL (7-18); Bilirubin, Total 0.3 mg/dL (0.2-1.0); CO2 26.5 mmol/L (21.0-32.0); CREATININE 1.16 mg/dL (0.70-1.30); Calcium 9.3 mg/dL (8.5-10.1); Chloride 101 mmol/L (98-107); ETHANOL BLOOD < 3.0 mg/dL (<3); Glucose 120 mg/dL (74-106); Magnesium 1.8 mg/dL (1.8-2.4); Potassium 3.9 mmol/L (3.5-5.1); Sodium 138 mmol/L (136-145); TSH (W/Ref FT4) 3.67 uIU/mL (0.36-3.74); Total Protein 7.8 g/dL (6.4-8.2)
[2019-08-14 18:56] LABS: Salicylate 4.7 mg/dL (2.8-20.0)
[2019-08-14 19:44] LABS: Acetaminophen < 2 ug/mL (10-30)
--- NOTE | 2019-08-14 20:01 | HPE_ITS ---
Date of service: 08/14/19 Time of Service: 20:01 Assessment and Plan Assessment and plan (1) Depression with suicidal ideation: Status: Acute Assessment and plan: Patient presents with suicidal ideation mostly in the form of I give up. He does not have a specific plan. Mental health felt that he would be a candidate for psychiatric placement. He is admitted as a psychiatric hold in anticipation of transfer to a psychiatric facility when a bed is available. Routine suicide precautions. (2) Bipolar disorder: Status: Chronic Assessment and plan: Continue present medications. He does not appear to be in a manic phase of his illness. At this point he is cooperative and not a behavioral problem. (3) Discharge planning issues: Status: Acute Assessment and plan: Admit to observation status in anticipation of transfer to a psychiatric facility today. History of Present Illness History of Present Illness Chief Complaint: Depression/ Suicidal Narrative: 53-year-old male admitted for suicidal ideation. He lives alone in an apartment. He says he gives up. He has been increasingly despondent about the government situation. He believes the coronavirus is a government conspiracy. He does not have any specific method for suicide. He has a history of cutting but I have not done that in years. He has been taking his psychiatric meds regularly. He had been checking in with [facility] via video link but gave that up recently when he lost Internet. He is admitted for voluntary transfer to a psychiatric care facility. Review of Systems Narrative: He says he physically feels well. He does not have much of an appetite. He has not had any chest pain. No shortness of breath or cough. He is not been having fevers. He is not aware of any exposure to coronavirus. He says he stays to himself most of the time. He smokes marijuana daily, I am high almost all day. He does not drink alcohol or use any other drugs. He feels like he may be losing weight though he does not keep track. [facility] Medical History (Updated 08/15/19 @ 07:14 by Asim Yin MD) Anxiety (Chronic) Bipolar disorder (Chronic) COPD (chronic obstructive pulmonary disease) (Chronic) GERD (gastroesophageal reflux disease) (Chronic) Hypothyroid (Chronic) Traumatic pneumothorax (Inactive) 2017, chest tube x2 Surgical History History of ankle surgery (Inactive) S/P thoracostomy tube placement (Inactive) Social History Smoking/Tobacco Use Status: Current every day Tobacco Type: cigarettes Alcohol Intake: never Drug use: Daily Substance use type: marijuana Do you feel safe at home: Yes Do you feel safe in your relationship?: Yes Meds Home Medications and Allergies Home Medications Medication Instructions Recorded Confirmed Type omeprazole 20 mg PO DAILY 10/16/13 08/14/19 History pravastatin 20 mg PO HS 06/22/17 08/14/19 History prazosin 2 mg PO HS 06/22/17 08/14/19 History levothyroxine 75 mcg PO DAILY 08/17/17 08/14/19 History Vraylar 3 mg PO DAILY 05/07/18 08/14/19 History melatonin 5 mg PO HS PRN 05/07/18 08/14/19 History promethazine 25 mg PO BID PRN 05/07/18 08/14/19 History trazodone 150 mg PO DAILY 05/07/18 08/14/19 History bupropion HCl 200 mg PO HS #0 tab 05/09/18 08/14/19 Rx hydroxyzine HCl 25 mg PO BID #0 tab 05/09/18 08/14/19 Rx lamotrigine [Lamictal] 200 mg PO DAILY #0 tab 05/09/18 08/14/19 Rx magnesium oxide 400 mg PO DAILY #14 tab 05/09/18 08/14/19 Rx nicotine 14 mg TRANSDERMAL DAILY #0 ea 05/09/18 08/14/19 Rx hydroxyzine pamoate [Vistaril] 25 mg PO BID PRN 04/01/19 08/14/19 History Allergies Allergy/AdvReac Type Severity Reaction Status Date / Time Sulfa (Sulfonamide Allergy Severe Swelling/Ed Unverified 08/14/19 18:07 Antibiotics) jostin Exam Narrative Exam Narrative: On exam he is calm and talkative. His speech is voluminous. He expresses some theories that are somewhat confabulatory. His speech is otherwise clear. Breathing is not at all labored. There is no coughing or upper respiratory symptoms. He is ambulating without any difficulty. Neurologically there are no focal neurologic deficits. Results Labs Result diagrams: 08/14/19 18:05 08/14/19 18:05 Labs: Laboratory Results - last 24 hr 08/14/19 08/14/19 08/14/19 18:05 18:05 18:05 WBC 8.95 RBC 5.30 Hgb 15.1 Hct 44.2 MCV 83.4 MCH 28.5 MCHC 34.2 RDW 13.5 Plt Count 186 MPV 9.9 Immature Gran % 0.2 Neutrophils % 67.6 Lymphocytes % 22.5 Monocytes % 7.2 Eosinophils % 2.2 Basophils % 0.3 Absolute Neutrophils 6.05 Absolute Lymphocytes 2.01 Absolute Monocytes 0.64 Absolute Eosinophils 0.20 Absolute Basophils 0.03 Sodium 138 Potassium 3.9 Chloride 101 Carbon Dioxide 26.5 Anion Gap 10.5 BUN 18 Creatinine 1.16 Estimated GFR/1.73 m2 >= 60.00 Glucose 120 H Calcium 9.3 Magnesium 1.8 Total Bilirubin 0.3 AST 26 ALT 31 Alkaline Phosphatase 118 H Total Protein 7.8 Albumin 3.9 TSH 3.67 Salicylates 4.7 Acetaminophen < 2 Ethyl Alcohol < 3.0 Last Vital Signs Temp 36.8 C 08/14/19 18:02 Pulse 105 H 08/14/19 18:02 Resp 18 08/14/19 18:02 BP 138/95 H 08/14/19 18:02 Pulse Ox 95 08/14/19 18:02 COVID-19 Screening Traveled to [place] from one of the affected countries or regions?: No Recent travel in the [place] within the last 8 weeks?: No Recent out of the country travel within the last 8 weeks?: No Exposure or possible exposure to illness during travel?: No Had IN PERSON contact w/suspected or confirmed C-19 person: No Have you had the following symptoms in the past few days?: No
[2019-08-14 20:30] LABS: Bilirubin Negative (Negative); Blood Trace-intact (Negative); Clarity Clear (Clear); Glucose Negative (Negative); Ketones Negative (Negative); Leukocyte Esterase Negative (Negative); Nitrite Negative (Negative); Specific Gravity 1.015 (1.005-1.025); Urobilinogen 0.2 EU/dL (Up TO 0.2)
[2019-08-14 20:33] VITALS: BP 145/100; PULSE 91; RESP 16; TEMP 35.5; O2SAT 96
--- NOTE | 2019-08-14 20:35 | PDOC.CMSAFED ---
- If Service Date Differs Date of service: 08/14/19 Time of Service: 21:02 Care Management Safety Plan Well known patient to the [facility], five visits within the past year which is much less frequent than previously (down from 25 from 06/2016-09/2017). He is described as being manipulative with SI, but presents with current struggles around COVID-19 isolation. 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 CM attempted contact with [facility] Crisis Screener for briefing on requirement for hospitalization; no return call at time of documentation. Note not available in EMR. Jaime reports Asim has various weapons, isolating, increased frustration with current state of world. Jaime reports Asim stated he wanted to End it all, no specific plan but with increasing suicidality. Due to previous hospitalizations and concern for safety, psychiatric placement will be sought. Per MD: 53 yo male with hx of Bipolar, COPD, comes in with worsening depression over the past week due to the isolation involved with the Covid19 pandemic. He has had thoughts of wanting to harm himself but hasn't tried to harm himself. He is medically cleared to see mental health. Patient remains stable. He met with mental health and is being made voluntary for psychiatric bed search. Will admit pending psychiatric placement. VOLUNTARY FOR INPATIENT PSYCHIATRIC STABILIZATION. Asim has a history of being demanding and using self harm to meet his needs. He is well known to [facility] and has previously been unwilling to follow expectations. Once established with patient's wishes in mind, care plan will be assertively presented; no negotiations; to be revisited once per day per huddle discussion. SAFETY PLAN: 1. Will remain on suicide precautions and in paper clothes. 2. Will remain under direct supervision of one-on-one staff at all times provided by DONTAE, [employer]ER collator hand. 3. May have paper cups, plates, finger foods as well as a cardboard spoon with which to eat meals. [facility] staff will be responsible for accounting of utensils after meals. 4. Follow [facility] Management of the Admitted Behavioral Health Patient policy printed and attached to the safety plan in physical chart. 5. Use of shower room permitted at RN discretion with escort. Bathroom available in room in transition bed area on M/S. 6. Personal belongings limited to cell phone and eye glasses at this time. 7. No visitors at this time. 8. Permitted to have use of television and remote. Patient is currently voluntarily at [facility] and seeking inpatient admission when a bed becomes available. [facility] Frontline Restaurant Associate and WOODWORKING MACHINE OPERATOR staff will continue seeking placement. Please contact the [employer] Wool Shearing Supervisor with further questions or requests for changes to the care plan. ([phone]).
[2019-08-14 20:44] LABS: *AMPHETAMINES SCREEN URINE Negative (Negative); *BARBITURATES SCREEN URINE Negative (Negative); *BENZODIAZEPINES SCREEN URINE Negative (Negative); Cannabinoids THC POSITIVE (Negative); Cocaine Screen,Urine Negative (Negative); METHADONE URINE SCREEN Negative (Negative); OPIATES URINE SCREEN Negative (Negative)
[2019-08-14 20:45] LABS: Tricyclic Antidepressants Negative (Negative)
[2019-08-14 20:46] LABS: Bacteria Rare HPF (Negative); C & S Indicated? Yes; Casts Negative LPF (Negative); Crystals Negative HPF (Negative); Epithelial Cells Negative HPF (Negative); Mucus Negative (Negative); Other Cells Negative (Negative); RBC 0-2 HPF (0-2); WBC Negative HPF (0-5)
--- NOTE | 2019-08-14 20:53 | NUR.NOTE ---
Nursing Note:report to Vaishali pt being transported to [place].
[2019-08-14] MEDS: buPROPion-CR 100 MG TABCR 200 MG PO (23:30)
[2019-08-14] MEDS: Prazosin 2 MG CAP PO (23:30)
[2019-08-14] MEDS: hydrOXYzine HCL 25 MG TAB PO (23:30)
[2019-08-14] MEDS: Melatonin 3 MG TAB 6 MG PO (23:30)
[2019-08-14] MEDS: Pravastatin 20 MG TAB PO (23:30)
[2019-08-15] MEDS: Levothyroxine 75 MCG TAB PO (06:59)
[2019-08-15 07:47] VITALS: BP 147/90; PULSE 105; RESP 22; TEMP 36.8; O2SAT 93
[2019-08-15] MEDS: Omeprazole 20 MG CAPCR PO (08:43)
[2019-08-15] MEDS: hydrOXYzine PAMOATE 25 MG CAP PO (08:43)
[2019-08-15] MEDS: traZODone 50 MG TAB 150 MG PO (08:44)
[2019-08-15] MEDS: Magnesium Oxide 400 MG TAB PO (08:44)
[2019-08-15] MEDS: lamoTRIgine 100 MG TAB 200 MG PO (08:44)
--- NOTE | 2019-08-15 11:18 | W.NUTCONSULT ---
Date of service: 08/15/19 Time of Service: 11:18 Nutritional Consult ASSESSMENT: 53 year old male admitted with depression and suicide ideation. Awaiting transfer. PMH: anxiety, bipolar, COPD. Weight wnl and has been stable x 2 year per medical chart. Following regular diet however refused to ate dinner last night and only has had coffee today. At risk for nutritional decline if continues to restrict intake. Will follow. MONITORING AND EVALUATION: po intake, weight Time Spent in Nutritional Counseling and Treatment: 0 time spent face to face
--- NOTE | 2019-08-15 12:02 | DSE_ITS ---
Date of service: 08/15/19 Time of Service: 12:03 DS: Diagnosis Discharge Diagnosis (1) Depression with suicidal ideation: Start date: 08/15/19 Start time: 12:03 Status: Acute Asessment and Plan: Admitted for suicidal ideation. Stating he gives up. Increasingly depressed about the state of our care. He is being discharged to [place] as voluntary status for further treatment of mental health (2) Bipolar disorder: Start date: 08/15/19 Start time: 12:15 Status: Chronic Asessment and Plan: Not manic at this time. Discharge Plan Disposition Patient Disposition: HOME Condition: Stable Discharge Details Chief Complaint: PsychEval Clinical Impression: Depression Reason For Visit: DEPRESSION/SUICIDAL Admit Date/Time: 08/14/19 19:56 Admit Provider: Asim Yin Attending Provider: Asim Yin Primary Care Provider: Fariba Forde ED Provider: Asim Fierro [facility] Course Hospital Course: 53 y.o male with PMH of bipolar not manic at this time, and depression with thoughts of SI. On admission he presented despondent, with thoughts of suicide without plan. Mental health felt he would be a candidate for psychiatric facility. He has been accepted to [place] and is going via state police. He denies CP, SOB, NVD Home Meds and New Rx's Prescriptions: Continued omeprazole 20 MG capsule,delayed release(DR/EC) 20 mg PO DAILY RF: 0 hydroxyzine pamoate [Vistaril] 25 mg Capsule 25 mg PO BID PRNRF: 0 pravastatin 20 MG tablet 20 mg PO HS RF: 0 prazosin 2 MG capsule 2 mg PO HS RF: 0 levothyroxine 75 MCG tablet 75 mcg PO DAILY RF: 0 trazodone 150 mg Tablet 150 mg PO DAILY RF: 0 promethazine 25 mg Tablet 25 mg PO BID PRNRF: 0 melatonin 5 mg Tablet 5 mg PO HS PRNRF: 0 Vraylar 3 mg Capsule 3 mg PO DAILY RF: 0 nicotine 14 mg/24 hr Patch 24 Hour 14 mg Transdermal DAILY Qty: 0 RF: 0 bupropion HCl 100 mg Tablet Sustained-Release 12 Hr 200 mg PO HS Qty: 0 RF: 0 magnesium oxide 400 mg (241.3 mg magnesium) Tablet 400 mg PO DAILY Qty: 14 RF: 0 hydroxyzine HCl 25 mg Tablet 25 mg PO BID Qty: 0 RF: 0 lamotrigine [Lamictal] 100 mg Tablet 200 mg PO DAILY Qty: 0 RF: 0 Discharge Instructions Instructions: Bipolar Disorder (DC), Depression (DC), Suicide Prevention for Older Adults (DC) Additional Instructions: [facility] Follow up with PCP as needed Activity:: Activity as Tolerated Equipment/Supplies:: No Equipment Needed Diet:: As Tolerated Discharge Orders Discharge Orders: Discharge Order (Routine); Ordered 08/15/19 Ordered By: Payal Landry DS: Summary Status at Discharge Functional status at discharge: independent ambulation Overall status at discharge: patient is progressing back to baseline Mental Status: mental status grossly normal Speech and Movement: speech and movement normal Mood: congruent mood Affect: normal affect Exam Narrative Exam Narrative: On exam he is calm and talkative. Confabulated stories when speaking His speech is otherwise clear. Breathing is not at all labored. There is no coughing or upper respiratory symptoms. He is ambulating without any difficulty. Neurologically there are no focal neurologic deficits. Psych Mental Status: mental status grossly normal Speech and Movement: speech and movement normal Mood: congruent mood Affect: normal affect DS: Data Vitals/I&O Vitals and I&O: Vital Signs Temperature 36.8 C 08/15/19 07:47 Temperature Source Tympanic 08/15/19 07:47 Pulse 105 H 08/15/19 07:47 Pulse Rhythm Regular 08/15/19 09:27 Respiratory Rate 22 08/15/19 07:47 Respiratory Effort Non-Labored 08/15/19 09:27 Respiratory Depth Normal 08/15/19 09:27 Respiratory Pattern Normal 08/15/19 09:27 Blood Pressure 147/90 H 08/15/19 07:47 Blood Pressure Position Sitting 08/14/19 18:02 Pulse Oximetry 93 L 08/15/19 07:47 Oxygen Delivery Method Room Air 08/15/19 07:47 Oxygen Flow Rate 0 08/15/19 07:47 Pain Level 0 08/15/19 07:47 Intake & Output 08/14/19 08/15/19 08/15/19 23:59 11:59 23:59 Intake Total 450 / 450 720 / 720 Balance 450 / 450 720 / 720 Weight 71.214 kg Intake: Oral 450 / 450 720 / 720 Other: Urine Appearance Clear Comment voided in bathroom Data Completed and Pending Labs on day of discharge: Labs from last 24 hours 08/14/19 08/14/19 08/14/19 20:07 20:07 18:05 WBC 8.95 RBC 5.30 Hgb 15.1 Hct 44.2 MCV 83.4 MCH 28.5 MCHC 34.2 RDW 13.5 Plt Count 186 MPV 9.9 Immature Gran % 0.2 Neutrophils % 67.6 Lymphocytes % 22.5 Monocytes % 7.2 Eosinophils % 2.2 Basophils % 0.3 Absolute Neutrophils 6.05 Absolute Lymphocytes 2.01 Absolute Monocytes 0.64 Absolute Eosinophils 0.20 Absolute Basophils 0.03 Sodium Potassium Chloride Carbon Dioxide Anion Gap BUN Creatinine Estimated GFR/1.73 m2 Glucose Calcium Magnesium Total Bilirubin AST ALT Alkaline Phosphatase Total Protein Albumin TSH Urine Color Yellow Urine Clarity Clear Urine pH 7.0 Ur Specific [place] 1.015 Urine Protein Negative Urine Ketones Negative Urine Blood Trace-intact H Urine Nitrite Negative Urine Bilirubin Negative Urine Urobilinogen 0.2 Ur Leukocyte Esterase Negative Urine RBC 0-2 Urine WBC Negative Ur Epithelial Cells Negative Urine Crystals Negative Urine Bacteria Rare Urine Casts Negative Urine Mucus Negative Urine Other Negative Ur Culture Indicated? Yes Urine Glucose Negative Salicylates Urine Opiates Screen Negative Urine Methadone Screen Negative Acetaminophen Ur Barbiturates Screen Negative Ur Tricyclics Screen Negative Ur Amphetamines Screen Negative U Benzodiazepines Scrn Negative Urine Cocaine Screen Negative Ur THC Screen Positive A Ethyl Alcohol 08/14/19 08/14/19 18:05 18:05 WBC RBC Hgb Hct MCV MCH MCHC RDW Plt Count MPV Immature Gran % Neutrophils % Lymphocytes % Monocytes % Eosinophils % Basophils % Absolute Neutrophils Absolute Lymphocytes Absolute Monocytes Absolute Eosinophils Absolute Basophils Sodium 138 Potassium 3.9 Chloride 101 Carbon Dioxide 26.5 Anion Gap 10.5 BUN 18 Creatinine 1.16 Estimated GFR/1.73 m2 >= 60.00 Glucose 120 H Calcium 9.3 Magnesium 1.8 Total Bilirubin 0.3 AST 26 ALT 31 Alkaline Phosphatase 118 H Total Protein 7.8 Albumin 3.9 TSH 3.67 Urine Color Urine Clarity Urine pH Ur Specific [place] Urine Protein Urine Ketones Urine Blood Urine Nitrite Urine Bilirubin Urine Urobilinogen Ur Leukocyte Esterase Urine RBC Urine WBC Ur Epithelial Cells Urine Crystals Urine Bacteria Urine Casts Urine Mucus Urine Other Ur Culture Indicated? Urine Glucose Salicylates 4.7 Urine Opiates Screen Urine Methadone Screen Acetaminophen < 2 Ur Barbiturates Screen Ur Tricyclics Screen Ur Amphetamines Screen U Benzodiazepines Scrn Urine Cocaine Screen Ur THC Screen Ethyl Alcohol < 3.0 PFSH Medical History Anxiety (Chronic) Bipolar disorder (Chronic) COPD (chronic obstructive pulmonary disease) (Chronic) GERD (gastroesophageal reflux disease) (Chronic) Hypothyroid (Chronic) Traumatic pneumothorax (Inactive) 2017, chest tube x2 Surgical History History of ankle surgery (Inactive) S/P thoracostomy tube placement (Inactive) Social History Smoking/Tobacco Use Status: Current every day Tobacco Type: cigarettes Alcohol Intake: never Drug use: Daily Substance use type: marijuana Do you feel safe at home: Yes Do you feel safe in your relationship?: Yes
--- NOTE | 2019-08-15 13:32 | CMDISCH_ITS ---
- If Service Date Differs Date of service: 08/15/19 Time of Service: 13:32 LACE Index Scoring Tool - Questions: Length of Stay (in days): 1 Acuity (Admit via E.D.?): Yes Comorbidities: Chronic Pulmonary Disease E.D. Visits: 5 - Answers: Total Score: 10 Risk of Readmission: High Risk Care Management Discharge Reason for Hospitalization: Depression/suicidal. Discharge Plan: Asim continues to express suicidal ideation and is voluntarily seeking placement. He is being discharged to the [facility]. He will continue to be followed by [facility] TEACH[facility] upon discharge. Transport to the [place] is provided by [facility], per [facility] policy, and coordinated by CM. Patient/Family Education Needs: Discharge transition plan to psychiatric facility, plan for transportation, and education related to follow-up after discharge. 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
--- NOTE | 2019-08-16 15:47 | PDOC.MHCN_ITS ---
Date of service: 08/14/19 Time of Service: 06:45 Mental Health Crisis Note Presenting Issue How did you arrive at the ED and why did you come: Patient is seen via telehealth screening at [facility] ED with c/c of worsening anxiety and depression and increased thoughts of wanting to in conjunction with several proposed self-harming methods. 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 The client reports that he has been experiencing significantly worsening symptoms of depression and anxiety for the past several weeks. The client advises that he has been self-isolating for weeks in response to guidelines proposed by the CDC in relation to the COVID-19 viral pandemic. He states that due to this isolation he is feeling estranged from people and society and that he unable to readily identify any reasons to go on living given lack of supports, meaningful relationships, scarcity of resources (food) in his home environment, and generalized feelings of being overwhelmed. Brief MH history: Patient has d/x history of bipolar d/o II, antisocial pd, borderline pd. The client has prior in-patient psychiatric hospitalizations November of 2018 at [facility] in relation to increasing SI and escalating non- suicidal self-injurious behaviors (cutting). Client presents in standard issue paper garments with adequate grooming. Client is A/Ox4 with immediate, recent and remote memory intact. He maintains good eye contact throughout assessment. Mood is reported as mixed depressed / anxious with affect that is moderately anxious. General body posture and demeanor convey agitation (mild to moderate). No evidence of acute distress. Client is cooperative and appropriately responsive to questions with speech that is clear, coherent, normal rate and volume with no latency of response. No deficits of language of fund of knowledge noted. Mild tangentially and delusional thinking in reference to held believe that his current place of residence of haunted. No evidence of hallucinations (A/V/O/S) or psychotic thought process. Insight and judgement are fair. The client states that his thoughts have been increasingly suicidal for the past several weeks and has identified the following methods for ending his life: cutting wrists, medication o/d, walking in front of oncoming traffic. No specifics of plan mentioned (date or time) or single method mentioned. The client advises that he does not feel safe and when questioned on intent to kill himself, he states it could happen at any time. The client reports that has stashed several knifes throughout his apartment and that he keeps a machete underneath his pillow at night to defend himself or use as a possible means of ending his life. He states the following: I'm spent. I'm done. What's the point of living like this? Client denies current HI, intent or plan. Disposition BEHAVIOR: Patient presents as moderately agitated and is otherwise appropriate in all interactions. EYE CONTACT: Patient maintains good eye contact throughout assessment. MOOD: Depressed / anxious AFFECT: Congruent to mood APPETITE: Decreased SLEEP(trouble falling/staying asleep: Decreased Plan Based on presentation and reported history, severity / level of risk is estimated to be moderate to high. Client falls under a higher vulnerability demographic and appears to be decompensating with poor general coping skills and increased risk to self-harm in an unsupervised environment. This clinician will seek voluntary in-patient psychiatric placement for mood stabilization and safety. Signature Clinician's Name/Title: Jimy Soto [facility] Emergency Mental Healt Clinician
== END 2019-08-15 13:15 | disposition home or self-care (01) ==
LOC: ER 20:41 → MS 08-15 08:45
PROVIDERS: Admitting Provider Family Medicine; Emergency Provider Emergency Medicine; PCP Nurse Practitioner; Visit Provider Family Medicine
DX: F32.9 Major depressive disorder, single episode, unspecified (principal); R45.851 Suicidal ideations; F17.210 Nicotine dependence, cigarettes, uncomplicated; F44.9 Dissociative and conversion disorder, unspecified; K21.9 Gastro-esophageal reflux disease without esophagitis; E03.9 Hypothyroidism, unspecified
CPT/HCPCS: 36415; 80053; 80307; 99219; 99239; 99285; 80320; 80329; 81003; 81015; 83735; 84443; 85025; 87086; 99217; 99283; G0378

== ENCOUNTER 2019-08-30 15:29 | Observation (INO) | payer MEDICAID, SELFPAY ==
[2019-08-30 15:32] VITALS: BP 120/84; PULSE 111; TEMP 37; O2SAT 96
--- NOTE | 2019-08-30 15:52 | ED.GENADUL_ITS ---
Discharge Plan Disposition Patient Disposition: [facility] INPATIENT Condition: Serious Discharge Details Chief Complaint: PsychEval Clinical Impression: Depression, Suicidal thoughts Primary Care Provider: Fariba Forde ED Provider: Francisco Majano Home Meds and New Rx's Prescriptions: No Action omeprazole 20 MG capsule,delayed release(DR/EC) 20 mg PO DAILY RF: 0 hydroxyzine pamoate [Vistaril] 25 mg Capsule 25 mg PO BID PRNRF: 0 pravastatin 20 MG tablet 20 mg PO HS RF: 0 prazosin 2 MG capsule 2 mg PO HS RF: 0 levothyroxine 75 MCG tablet 75 mcg PO DAILY RF: 0 trazodone 150 mg Tablet 150 mg PO DAILY RF: 0 promethazine 25 mg Tablet 25 mg PO BID PRNRF: 0 melatonin 5 mg Tablet 5 mg PO HS PRNRF: 0 Vraylar 3 mg Capsule 3 mg PO DAILY RF: 0 nicotine 14 mg/24 hr Patch 24 Hour 14 mg Transdermal DAILY Qty: 0 RF: 0 bupropion HCl 100 mg Tablet Sustained-Release 12 Hr 200 mg PO HS Qty: 0 RF: 0 magnesium oxide 400 mg (241.3 mg magnesium) Tablet 400 mg PO DAILY Qty: 14 RF: 0 hydroxyzine HCl 25 mg Tablet 25 mg PO BID Qty: 0 RF: 0 lamotrigine [Lamictal] 100 mg Tablet 200 mg PO DAILY Qty: 0 RF: 0 Medical Decision Making 16:00 -- 53-year-old male with history of bipolar depression, here with chronic feelings of hopelessness and depression. Recently discharged from [facility]. 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 I contacted [facility]UAN JOSÉ HEATH for screening and hopefully to develop an outpatient care safety plan plan if they feel that this would be appropriate. JUAN JOSÉ notes that they advised Mr. Hampton to to come to the ED today for medical screening. Patient has been medically screened and determined stable for psychiatric treatment, I have identified no acute medical condition since his recent discharge from psychiatric treatment facility. --Screening labs were reviewed and nondiagnostic. Attempting to obtain home medications from SENIOR PRICING ANALYST-D as patient is unable to provide. 18:00 --crisis screener evaluated the patient and feels patient would benefit from inpatient psychiatric treatment. They are attempting to arrange transfer but do not feel that this is likely this evening. Plan to admit the patient to psychiatric treatment holding unit. Care management has been consulted and is developed care plan for the patient. A one-to-one clinical patient observer has been initiated. I called and spoke with Dr. Ricardo who will admit the patient. Care transition to Dr. Ricardo at time of admission. HPI General Mode of arrival: ambulatory . Date/Time Provider Initiated Documentation: 08/30/19 15:32 . Limitations to Documentation: no limitations . Information obtained by: patient . HPI Narrative: 53-year-old male with history of bipolar disorder, prior self-harm, here with chief complaint of depression. Patient notes that he is hopeless. Symptoms are severe, chronic. Patient was seen here and then transferred to [place] last month. He was just discharged from [place] about a week ago. He states that he felt he was d ischarged too early. He does have a local therapist. Patient has no specific plan of self-harm at this time. Related Data Home Medications Medication Instructions Recorded Confirmed omeprazole 20 mg PO DAILY 10/16/13 08/14/19 pravastatin 20 mg PO HS 06/22/17 08/14/19 prazosin 2 mg PO HS 06/22/17 08/14/19 levothyroxine 75 mcg PO DAILY 08/17/17 08/14/19 Vraylar 3 mg PO DAILY 05/07/18 08/14/19 melatonin 5 mg PO HS PRN 05/07/18 08/14/19 promethazine 25 mg PO BID PRN 05/07/18 08/14/19 trazodone 150 mg PO DAILY 05/07/18 08/14/19 bupropion HCl 200 mg PO HS #0 tab 05/09/18 08/14/19 hydroxyzine HCl 25 mg PO BID #0 tab 05/09/18 08/14/19 lamotrigine [Lamictal] 200 mg PO DAILY #0 tab 05/09/18 08/14/19 magnesium oxide 400 mg PO DAILY #14 tab 05/09/18 08/14/19 nicotine 14 mg TRANSDERMAL DAILY #0 ea 05/09/18 08/14/19 hydroxyzine pamoate [Vistaril] 25 mg PO BID PRN 04/01/19 08/14/19 Previous Rx's Medication Instructions Recorded bupropion HCl 200 mg PO HS #0 tab 05/09/18 hydroxyzine HCl 25 mg PO BID #0 tab 05/09/18 lamotrigine [Lamictal] 200 mg PO DAILY #0 tab 05/09/18 magnesium oxide 400 mg PO DAILY #14 tab 05/09/18 nicotine 14 mg TRANSDERMAL DAILY #0 ea 05/09/18 Allergies Allergy/AdvReac Type Severity Reaction Status Date / Time Sulfa (Sulfonamide Allergy Severe Swelling/Ed Unverified 08/30/19 15:40 Antibiotics) jostin General Stated Complaint: PsychEval ABA: 3 Review of Systems Constitutional Constitutional: Denies fever(s) Respiratory Respiratory: Denies cough Psychiatric Psychiatric: Reports depression and Reports hopelessness PFS Medical History Anxiety (Chronic) Bipolar disorder (Chronic) COPD (chronic obstructive pulmonary disease) (Chronic) GERD (gastroesophageal reflux disease) (Chronic) Hypothyroid (Chronic) Traumatic pneumothorax (Inactive) 2017, chest tube x2 Surgical History History of ankle surgery (Inactive) S/P thoracostomy tube placement (Inactive) Social History Smoking/Tobacco Use Status: Current every day Tobacco Type: cigarettes Alcohol Intake: never Drug use: Daily Substance use type: marijuana Do you feel safe at home: Yes Do you feel safe in your relationship?: Yes Exam Const General: cooperative HENMT Mouth: moist mucous membranes Eyes Conjunctivae: normal conjunctivae Sclera: normal sclerae Neck Neck: trachea midline Resp Auscultation: clear to auscultation bilaterally, no rales, no rhonchi and no wheezes Cardio Rhythm: regular rhythm GI Palpation: soft, not firm, no guarding, no masses, not rigid and nontender Skin General skin exam: no rashes or lesions noted Neuro General: patient alert, patient awake, patient oriented x3 and tone normal Extrem General: no edema Psych Appearance: grossly normal Mental Status: mental status grossly normal and other (Depressed) Speech and Movement: speech and movement normal Mood: other (Depressed) Affect: anxious affect (Mild) Attitude: cooperative Course Vital Signs Vital signs: Vital Signs Temperature 37.0 C 08/30/19 15:32 Pulse 111 H 08/30/19 15:32 Blood Pressure 120/84 08/30/19 15:32 Pulse Oximetry 96 08/30/19 15:32 Temperature 37.0 C 08/30/19 15:32 Temperature Source Temporal Artery Scan 08/30/19 15:32 Pulse 111 H 08/30/19 15:32 Respiratory Effort Non-Labored 08/30/19 15:37 Blood Pressure 120/84 08/30/19 15:32 Blood Pressure Position Standing 08/30/19 15:32 Pulse Oximetry 96 08/30/19 15:32 Oxygen Delivery Method Room Air 08/30/19 15:32 Oxygen Flow Rate 0 08/30/19 15:32
[2019-08-30 17:08] LABS: Abs Immature Grans 0.02 k/cumm (0.0-0.09); Absolute Basophil Count 0.03 k/cumm (0.0-0.2); Absolute Eosinophil Count 0.15 k/cumm (0.0-0.7); Absolute Lymphocyte Count 2.79 k/cumm (1.2-3.4); Absolute Neutrophil Count 7.17 k/cumm (1.2-6.7); Basophils % 0.3; Eosinophils % 1.4; HCT 47.1 % (40.0-50.0); HGB 16.3 g/dL (13.5-17.5); Immature Grans % 0.2 %; Lymphocytes % 25.7; Mean Corp. HGB Concentration 34.6 g/dL (32.0-36.0); Mean Corpuscular Hemoglobin 28.7 pg (27.0-33.0); Mean Corpuscular Volume 82.9 fL (80-95); Mean Platelet Volume 9.3 fL (8.0-11.0); Monocytes % 6.4; Platelet Count 272 x1000/uL (130-400); RBC 5.68 m/cumm (4.50-6.00); RBC Distribution Width 13.4 % (11.8-14.1); White Blood Cell Count 10.86 k/cumm (4.4-10.8)
--- NOTE | 2019-08-30 17:08 | CMSP_ITS ---
- If Service Date Differs Date of service: 08/30/19 Time of Service: 17:08 Care Management Safety Plan Asim presents in the ED due to on-going feelings of hopelessness, helplessness and suicidal thoughts. He was recently hospitalized at the [facility] for similar complaints. He states he returned home on or about August 20, 2019, but feels he was discharged before being ready to return to the community. Asim is a current [facility] [employer]BER client, where he has received services for many years. Asim has been screened by Lacy Villegas, [facility] Crisis Screener. Lacy agrees that Aism was discharged from the [facility] way too soon, so she is, seeking another psychiatric placement for him. She reports, per the [place] [employer], the [facility] and [facility] are the only psychiatric [facility] hospital with available beds at this time. Asim, however, is refusing to return to the [facility]. Lacy has contacted [facility] and is awaiting confirmation of bed availability. VOLUNTARY FOR INPATIENT PSYCHIATRIC STABILIZATION. Asim is appropriate in all interactions since arriving at [facility]. He has demonstrated appropriate coping and communications skills, has articulated his needs and concerns and is fully engaged during staff interactions. Safety plan has been established with patient, and care team, to adhere to patient goals, identify restrictions based on behavioral status, address nutrition, and determine allowed personal belongings, tools for hygiene and personal care, determine level of activity including ambulation and level of supervision, and determine privileges based on behaviors and level of engagement by patient. SAFETY PLAN: 1. Will remain on suicide precautions and in paper clothes. 2. Will remain under direct supervision of one-on-one staff at all times provided by [employer], COLLEGE OR UNIVERSITY FACULTY MEMBER, PREPARATION ROOM MANAGER radio interference investigator. 3. May have paper cups, plates, finger foods, as well as a metal spoon with which to eat meals. [facility] staff will be responsible for removing spoon after meals. 4. Follow [facility] Management of the Admitted Behavioral Health Patient policy. 5. Comfort baths only while in the ED. If moved to the med/surg floor, use of shower room will be permitted at RN discretion with escort. Bathroom with escort while in the ED. If moved to the med/surg floor, bathroom available in room without supervision. 6. No personal belongings at this time. 7. No visitors at this time. 8. Activities: Soft tip markers, paper, books and other activities at nursing discretion. If patient is moved to the med/surg flood, he will be permitted to have use of television and remote. 9. Phone: No phone privileges at this time. 10. Due to VOLUNTARY status, if patient wishes to leave [facility], the [facility] ostrich farm worker must be contacted to re-evaluate patient prior to patient exiting the building. Patient is currently voluntarily at [facility] and seeking inpatient admission when a bed becomes available. [facility] Frontline Lighting Adviser and B[employer] MEMBER staff will continue seeking placement. Please contact the Archives Director Geology Faculty Member with further questions or requests for changes to the care plan. ([phone]).
[2019-08-30 17:09] VITALS: BP 124/73; PULSE 67; RESP 16; TEMP 37.1; O2SAT 98
[2019-08-30 17:29] LABS: ALT 32 U/L (16-63); AST 23 U/L (15-37); Albumin 4.3 g/dL (3.4-5.0); Alkaline Phosphatase 134 U/L (46-116); Anion Gap 8.7 mmol/L (3-11); BUN 16 mg/dL (7-18); Bilirubin, Total 0.4 mg/dL (0.2-1.0); CO2 28.3 mmol/L (21.0-32.0); CREATININE 1.23 mg/dL (0.70-1.30); Calcium 8.9 mg/dL (8.5-10.1); Chloride 97 mmol/L (98-107); Glucose 119 mg/dL (74-106); Potassium 3.5 mmol/L (3.5-5.1); Sodium 134 mmol/L (136-145); TSH (W/Ref FT4) 5.81 uIU/mL (0.36-3.74); Total Protein 8.6 g/dL (6.4-8.2)
[2019-08-30 17:31] LABS: Acetaminophen < 2 ug/mL (10-30)
[2019-08-30 17:48] LABS: FREE T4 1.02 ng/dL (0.76-1.46)
[2019-08-30 19:37] VITALS: BP 128/81; PULSE 80; RESP 18; TEMP 36.9; O2SAT 97
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
[2019-08-30] MEDS: Prazosin 1 MG CAP 2 MG PO (22:41)
[2019-08-30] MEDS: traZODone 50 MG TAB 150 MG PO (22:41)
[2019-08-30] MEDS: Pravastatin 20 MG TAB PO (22:42)
[2019-08-30] MEDS: buPROPion-CR 100 MG TABCR 200 MG PO (22:42)
[2019-08-30 23:02] LABS: Bilirubin Negative (Negative); Blood Negative (Negative); Clarity Clear (Clear); Glucose Negative (Negative); Ketones Negative (Negative); Leukocyte Esterase Negative (Negative); Nitrite Negative (Negative); Specific Gravity 1.015 (1.005-1.025); Urobilinogen 0.2 EU/dL (Up TO 0.2); pH 6.5 (5-8)
[2019-08-30 23:25] LABS: *AMPHETAMINES SCREEN URINE Negative (Negative); *BARBITURATES SCREEN URINE Negative (Negative); *BENZODIAZEPINES SCREEN URINE Negative (Negative); Cannabinoids THC POSITIVE (Negative); Cocaine Screen,Urine Negative (Negative); METHADONE URINE SCREEN Negative (Negative); OPIATES URINE SCREEN Negative (Negative); Tricyclic Antidepressants Negative (Negative)
[2019-08-31] MEDS: Levothyroxine 75 MCG TAB PO (06:38)
[2019-08-31 07:29] LABS: ALT 33 U/L (16-63); AST 27 U/L (15-37); Albumin 3.9 g/dL (3.4-5.0); Alkaline Phosphatase 125 U/L (46-116); Anion Gap 7.6 mmol/L (3-11); BUN 15 mg/dL (7-18); Bilirubin, Total 0.5 mg/dL (0.2-1.0); CO2 28.4 mmol/L (21.0-32.0); CREATININE 1.21 mg/dL (0.70-1.30); Calcium 9.6 mg/dL (8.5-10.1); Chloride 102 mmol/L (98-107); Glucose 114 mg/dL (74-106); Potassium 4.4 mmol/L (3.5-5.1); Sodium 138 mmol/L (136-145); Total Protein 8.1 g/dL (6.4-8.2)
[2019-08-31] MEDS: lamoTRIgine 100 MG TAB 200 MG PO (08:52)
[2019-08-31] MEDS: Magnesium Oxide 400 MG TAB PO (08:52)
[2019-08-31] MEDS: Omeprazole 20 MG CAPCR PO (08:52)
[2019-08-31 09:07] VITALS: BP 126/82; PULSE 112; RESP 18; TEMP 36.8; O2SAT 98
--- NOTE | 2019-08-31 09:32 | DSE_ITS ---
Date of service: 08/31/19 Time of Service: 09:55 DS: Diagnosis Discharge Diagnosis (1) Depression with suicidal ideation: Status: Acute (2) Hypothyroid: Status: Chronic (3) Bipolar disorder: Status: Chronic (4) Anxiety: Status: Chronic Discharge Plan Disposition Patient Disposition: [facility] Condition: Stable Discharge Details Chief Complaint: PsychEval Clinical Impression: Depression, Suicidal thoughts Reason For Visit: SUICIDAL IDEATION DEPRESSION Admit Date/Time: 08/30/19 18:42 Admit Provider: Saravanan Ricardo Attending Provider: Saravanan Ricardo Primary Care Provider: Fariba Forde ED Provider: Francisco Majano Hospital Course Hospital Course: Mr Hampton is a 53 year old male with PMHx of depression, bipolar disorder, hypothyroidism, non-oxygen dependent COPD, who was observed on [facility] hospitalist service from 08/30/2019 until 08/31/2019 while awaiting a psychiatric bed on a voluntary basis, having presented to the ED with suicidal ideation considering several plans (has considerd cutting wrists, medication overdose, walking in front of on-coming traffic), though he had not yet decided on a specific plan. Per patient, he had been self-isolating due to COVID-19 pandemic (he does not have symptoms or known contact for COVID, screening negative for COVID testing. He was not tested for COVID). This self-isolation is the big trigger for him to be feeling the way he is. He was evaluated by mental health who felt that the patient met criteria for voluntary hospitalization. He is stable from medical stand point. His levothyroxine dose is being increased slightly as his TSH is slightly high. The patient is medically stable for discharge to psychiatric facility and has been accepted at [facility]. Home Meds and New Rx's Prescriptions: New levothyroxine 88 mcg capsule 88 mcg PO DAILY Qty: 30 RF: 0 Continued omeprazole 20 MG capsule,delayed release(DR/EC) 20 mg PO DAILY RF: 0 hydroxyzine pamoate [Vistaril] 25 mg Capsule 25 mg PO BID PRNRF: 0 pravastatin 20 MG tablet 20 mg PO HS RF: 0 prazosin 2 MG capsule 2 mg PO HS RF: 0 trazodone 150 mg Tablet 150 mg PO DAILY RF: 0 melatonin 5 mg Tablet 5 mg PO HS PRNRF: 0 Vraylar 3 mg Capsule 3 mg PO DAILY RF: 0 bupropion HCl 100 mg Tablet Sustained-Release 12 Hr 200 mg PO HS Qty: 0 RF: 0 magnesium oxide 400 mg (241.3 mg magnesium) Tablet 400 mg PO DAILY Qty: 14 RF: 0 hydroxyzine HCl 25 mg Tablet 25 mg PO BID Qty: 0 RF: 0 lamotrigine [Lamictal] 100 mg Tablet 200 mg PO DAILY Qty: 0 RF: 0 Discontinued levothyroxine 75 MCG tablet 75 mcg PO DAILY RF: 0 Discharge Instructions Activity:: Activity as Tolerated Equipment/Supplies:: No Equipment Needed Diet:: As Tolerated Discharge Orders Discharge Orders: Discharge Order (Routine); Ordered 08/31/19 Ordered By: Kristen Brennan DS: Summary Status at Discharge Functional status at discharge: independent ambulation Overall status at discharge: patient is not back to baseline Mental Status: mental status grossly normal Speech and Movement: speech and movement normal Mood: anxious mood Affect: sad Exam Narrative Exam Narrative: General: Very pleasant middle-aged male, cooperative, calm, A&Ox3, answering questions appropriately HEENT: EOMI, MMM Heart: RRR, no m/r/g Lungs: CTAB Abdomen: nondistended Extremities: no obvious edema. Psych Mental Status: mental status grossly normal Speech and Movement: speech and movement normal Mood: anxious mood Affect: sad DS: Data Vitals/I&O Vitals and I&O: Vital Signs Temperature 36.8 C 08/31/19 09:07 Temperature Source Tympanic 08/31/19 09:07 Pulse 112 H 08/31/19 09:07 Pulse Rhythm Regular 08/30/19 19:37 Respiratory Rate 18 08/31/19 09:07 Respiratory Effort Non-Labored 08/30/19 19:37 Respiratory Depth Normal 08/30/19 19:37 Respiratory Pattern Normal 08/30/19 19:37 Blood Pressure 126/82 08/31/19 09:07 Blood Pressure Position Standing 08/30/19 15:32 Pulse Oximetry 98 08/31/19 09:07 Oxygen Delivery Method Room Air 08/31/19 09:07 Oxygen Flow Rate 0 08/31/19 09:07 Pain Level 0 08/31/19 09:07 Intake & Output 08/30/19 08/30/19 08/31/19 11:59 23:59 11:59 Other: Urine Appearance Clear Comment voids independently Data Completed and Pending Labs on day of discharge: Labs from last 24 hours 08/31/19 08/30/19 08/30/19 06:45 22:50 22:50 WBC RBC Hgb Hct MCV MCH MCHC RDW Plt Count MPV Immature Gran % Neutrophils % Lymphocytes % Monocytes % Eosinophils % Basophils % Absolute Neutrophils Absolute Lymphocytes Absolute Monocytes Absolute Eosinophils Absolute Basophils Sodium 138 Potassium 4.4 D Chloride 102 Carbon Dioxide 28.4 Anion Gap 7.6 BUN 15 Creatinine 1.21 Estimated GFR/1.73 m2 >= 60.00 Glucose 114 H Calcium 9.6 Total Bilirubin 0.5 AST 27 ALT 33 Alkaline Phosphatase 125 H Total Protein 8.1 Albumin 3.9 TSH Free T4 Urine Color Yellow Urine Clarity Clear Urine pH 6.5 Ur Specific [place] 1.015 Urine Protein Negative Urine Ketones Negative Urine Blood Negative Urine Nitrite Negative Urine Bilirubin Negative Urine Urobilinogen 0.2 Ur Leukocyte Esterase Negative Urine Glucose Negative Urine Opiates Screen Negative Urine Methadone Screen Negative Acetaminophen Ur Barbiturates Screen Negative Ur Tricyclics Screen Negative Ur Amphetamines Screen Negative U Benzodiazepines Scrn Negative Urine Cocaine Screen Negative Ur THC Screen Positive A 08/30/19 08/30/19 16:53 16:53 WBC 10.86 H RBC 5.68 Hgb 16.3 Hct 47.1 MCV 82.9 MCH 28.7 MCHC 34.6 RDW 13.4 Plt Count 272 MPV 9.3 Immature Gran % 0.2 Neutrophils % 66.0 Lymphocytes % 25.7 Monocytes % 6.4 Eosinophils % 1.4 Basophils % 0.3 Absolute Neutrophils 7.17 H Absolute Lymphocytes 2.79 Absolute Monocytes 0.70 Absolute Eosinophils 0.15 Absolute Basophils 0.03 Sodium 134 L Potassium 3.5 Chloride 97 L Carbon Dioxide 28.3 Anion Gap 8.7 BUN 16 Creatinine 1.23 Estimated GFR/1.73 m2 >= 60.00 Glucose 119 H Calcium 8.9 Total Bilirubin 0.4 AST 23 ALT 32 Alkaline Phosphatase 134 H Total Protein 8.6 H Albumin 4.3 TSH 5.81 H Free T4 1.02 Urine Color Urine Clarity Urine pH Ur Specific [place] Urine Protein Urine Ketones Urine Blood Urine Nitrite Urine Bilirubin Urine Urobilinogen Ur Leukocyte Esterase Urine Glucose Urine Opiates Screen Urine Methadone Screen Acetaminophen < 2 Ur Barbiturates Screen Ur Tricyclics Screen Ur Amphetamines Screen U Benzodiazepines Scrn Urine Cocaine Screen Ur THC Screen PFSH Medical History Anxiety (Chronic) Bipolar disorder (Chronic) COPD (chronic obstructive pulmonary disease) (Chronic) GERD (gastroesophageal reflux disease) (Chronic) Hypothyroid (Chronic) Traumatic pneumothorax (Inactive) 2017, chest tube x2 Surgical History History of ankle surgery (Inactive) S/P thoracostomy tube placement (Inactive) Social History Smoking/Tobacco Use Status: Current every day Tobacco Type: cigarettes Alcohol Intake: never Drug use: Daily Substance use type: marijuana Do you feel safe at home: Yes Do you feel safe in your relationship?: Yes
--- NOTE | 2019-08-31 10:25 | CMDISCH_ITS ---
- If Service Date Differs Date of service: 08/31/19 Time of Service: 10:26 LACE Index Scoring Tool - Questions: Length of Stay (in days): 1 Acuity (Admit via E.D.?): Yes Comorbidities: Chronic Pulmonary Disease E.D. Visits: 6 - Answers: Total Score: 10 Risk of Readmission: High Risk Care Management Discharge Reason for Hospitalization: Suicidal ideation and depression. Discharge Plan: Asim is voluntarily seeking placement due to ongoing suicidal thoughts, hopelessness and helplessness. He is being discharged to the [facility]. Upon discharge from [place], he will resume services through the [facility] program at [facility]. Transport to [place] is provided by [facility], per [facility] policy. Patient/Family Education Needs: Discharge transition plan to psychiatric facility, plan for transportation, and education related to follow-up after discharge. Services Needed at Discharge: Psychiatric Facility, Transportation - MH Services (Omit if N/A) Current MH Services: [facility]
== END 2019-08-31 11:30 | disposition short-term general hospital (02) ==
LOC: ER 19:14 → MS 08-31 10:02
PROVIDERS: Admitting Provider Family Medicine; Emergency Provider Student in an Organized Health Care Education/Training Program; PCP Nurse Practitioner; Visit Provider Internal Medicine
DX: F31.9 Bipolar disorder, unspecified (principal); R45.851 Suicidal ideations; E03.9 Hypothyroidism, unspecified; J44.9 Chronic obstructive pulmonary disease, unspecified; Z75.1 Person awaiting admission to adequate facility elsewhere; K21.9 Gastro-esophageal reflux disease without esophagitis
CPT/HCPCS: 36415; 80053; 80307; 99217; 99219; 99285; 80329; 81003; 84439; 84443; 85025; 99284; G0378

== ENCOUNTER 2019-10-20 19:16 | Observation (INO) | payer MEDICAID, SELFPAY ==
[2019-10-20 19:22] VITALS: BP 127/92; PULSE 102; RESP 14; TEMP 37.2; O2SAT 97
--- NOTE | 2019-10-20 19:25 | ED.GENADUL_ITS ---
Discharge Plan Disposition Condition: Fair Discharge Details Chief Complaint: PsychEval Admit Date/Time: 10/20/19 22:08 Admit Provider: Saravanan Pires Attending Provider: Saravanna Pires Primary Care Provider: Fariba Forde ED Provider: Kandace Gustafson Discharge Instructions Activity:: Activity as Tolerated Equipment/Supplies:: No Equipment Needed Diet:: As Tolerated Discharge Orders Discharge Orders: Discharge Order (Routine); Ordered 10/21/19 Ordered By: Maddie Awad Discharge Data Discharge Date/Time-TO BE ENTERED AT DEPARTURE: 10/20/19 22:40 Medical Decision Making <RENAE Vidal - Last Filed: 10/21/19 20:06> Patient is a pleasant 53-year-old gentleman presenting today for recurrent suicidal ideation. I have seen this patient multiple times for the same. He states that over the past 3 to 4 days, he has not been taking his medications as his suicidal thoughts began to increase. He reports I want to go to sleep and not wake up. However, patient denies any action plan on how to commit suicide. Patient seems frustrated with the fact that he is been hospitalized multiple times, has been on multiple different medications and has not found a true benefit to help reduce his depression and suicidal ideation. He reports that this is set up after looking at fissures of his dog last fall. Patient also recently quit his job secondary to strife at work that he found that working was financially harmful for him. Patient reports that he smokes marijuana daily. He denies any alcohol or illicit drug use. On exam, patient appears to be at his baseline. He does not appear acutely toxic. Will consult with mental health. CPS O at bedside. As patient does not have any physical illness and has not had a rapid change in his baseline depression, I do not feel that laboratory evaluation is necessary at this time. Patient spoke with W[facility] TUNNEL ENGINEER. They feel that patient would have a good option in the care bed. Patient is safe to be discharged home. Contact you back to by [facility] TUNNEL ENGINE[facility]. No care beds are available. I spoke with mental ealt as well as the patient regarding risk/benefits of inpatient admission. At this point, patient is voluntarily wanting to stay and be admitted for depression and suicidal ideation. Will obtain baseline screening labs as well as Covid-19 testing which will be required at the time of admission although patient is not expressing any symptoms at this time. [facility] T[facility] ENG[facility] advised that [facility] are both excepting referrals. However, at this point they are requiring COVID-19 testing to be completed. Will speak with hospitalist regarding admission here until results can come back and ezekiel ent may be placed appropriately. Patient is voluntarily staying at this time for suicidal ideation. Patient reported more specific plan, reported that he was going to cut my arm off. Labs reviewed. Patient has a white count of 15. He has been elevated like this fairly routinely in the past. He is not endorsing any infectious symptoms. CMP significant for glucose of 146. Alk phos is elevated at 127. This is baseline for the patient. His TSH is elevated at 12.5, will obtain a free T4. Urine is still pending. Alcohol is less than 3. Consulted with Dr. Pires regarding admission for continued monitoring of the voluntary suicidal patient awaiting placement at psychiatric facility. He agrees to admission. <Asim Fierro MD - Last Filed: 10/20/19 20:49> I had a [id number] encounter with the patient. I evaluated the patient. I discussed case with CORPORATE WELLNESS COORDINATOR/PA and I reviewed CORPORATE WELLNESS COORDINATOR/PA note and agree with note as documented HPI <RENAE Vidal - Last Filed: 10/21/19 20:06> General Mode of arrival: ambulatory . Date/Time Provider Initiated Documentation: 10/20/19 19:25 . Limitations to Documentation: no limitations . Information obtained by: patient and RN notes reviewed . History of Present Illness 53 year old M presents to the emergency department with the chief complaint of suicidal, described as moderate (patient states, I dont want to wake up , denies plan) and similar to prior episodes, Patient started experiencing this day(s) (3-4) and it has been constant. No relieving f actors improve symptom(s), No exacerbating factors reported . Patient notes no other symptoms.. Patient did receive the following treatments prior to arrival, none Related Data Home Medications Medication Instructions Recorded Confirmed omeprazole 20 mg PO QAM 10/16/13 10/20/19 Vraylar 3 mg PO DAILY 05/07/18 08/30/19 melatonin 3 mg PO HS PRN 05/07/18 10/20/19 hydroxyzine HCl 25 mg PO BID #0 tab 05/09/18 10/20/19 lamotrigine [Lamictal] 200 mg PO DAILY #0 tab 05/09/18 10/20/19 hydroxyzine pamoate [Vistaril] 25 mg PO BID PRN 04/01/19 10/20/19 bupropion HCl 200 mg PO QAM 10/20/19 10/20/19 levothyroxine 75 mcg PO QAM 10/20/19 10/20/19 magnesium oxide 400 mg PO QAM 10/20/19 10/20/19 nicotine 21 mg TRANSDERMAL DAILY PRN PRN #0 10/21/19 ea Previous Rx's Medication Instructions Recorded hydroxyzine HCl 25 mg PO BID #0 tab 05/09/18 lamotrigine [Lamictal] 200 mg PO DAILY #0 tab 05/09/18 nicotine 21 mg TRANSDERMAL DAILY PRN PRN #0 10/21/19 ea Allergies Allergy/AdvReac Type Severity Reaction Status Date / Time Sulfa (Sulfonamide Allergy Severe Swelling/Ed Unverified 10/20/19 19:33 Antibiotics) jostin General ABA: 3 Review of Systems <RENAE Vidal - Last Filed: 10/21/19 20:06> Constitutional Constitutional: Reports as per HPI, Denies chills, Denies fatigue, Denies fever(s), Denies headache(s) and Denies weakness Eyes Eyes: Denies change in vision ENT Ears, Nose, Mouth, and Throat: Denies headache(s) Cardiovascular Cardiovascular: Reports as per HPI, Denies chest pain, Denies lightheadedness, Denies dyspnea and Denies dyspnea on exertion Respiratory Respiratory: Reports as per HPI, Denies cough, Denies dyspnea and Denies dyspnea on exertion Gastrointestinal Gastrointestinal: Reports as per HPI, Denies abdominal pain, Denies change in bowel habits, Denies nausea and Denies vomiting Genitourinary Genitourinary: Denies system reviewed and no additional complaints, except as documented (denies any change in urinary habits) Musculoskeletal Musculoskeletal: Denies abnormal gait Integumentary/Breasts Skin/Breast: Reports as per HPI and Denies rash Neurologic Neurologic: Denies abnormal movements, Denies abnormal speech, Denies abnormal gait, Denies headache(s), Denies paresthesias and Denies weakness Endocrine Endocrine: Denies fatigue PFSH <RENAE Vidal - Last Filed: 10/21/19 20:06> Medical History Anxiety (Chronic) Bipolar disorder (Chronic) COPD (chronic obstructive pulmonary disease) (Chronic) GERD (gastroesophageal reflux disease) (Chronic) Hypothyroid (Chronic) Traumatic pneumothorax (Inactive) 2017, chest tube x2 Surgical History History of ankle surgery (Inactive) S/P thoracostomy tube placement (Inactive) Social History Smoking/Tobacco Use Status: Current every day Tobacco Type: cigarettes Alcohol Intake: never Drug use: Daily Substance use type: marijuana Do you feel safe at home: Yes Do you feel safe in your relationship?: Yes Exam <RENAE Vidal - Last Filed: 10/21/19 20:06> Const General: cooperative, healthy appearing, comfortable, no acute distress, well developed and well groomed Nutritional Appearance: average body habitus and well nourished Orientation: alert and awake Eyes General: appearance normal, both eyes and all related structures Resp Effort & Inspection: normal respiratory effort, able to speak in complete sentences and no respiratory distress Auscultation: clear to auscultation bilaterally, no rales, no rhonchi and no wheezes Cardio Rate: regular rate Rhythm: regular rhythm Heart Sounds: S1 normal and S2 normal Skin General skin exam: no rashes or lesions noted Trauma: no lacerations or abrasions Neuro General: patient alert and patient awake Cognition: normal cognition Speech: speech normal Gait: normal gait Psych Appearance: grossly normal and well kempt Mental Status: mental status grossly normal Speech and Movement: speech and movement normal Mood: congruent mood Affect: sad Attitude: cooperative Thought Process: normal Thought Content: suicidality Insight: fair Judgment: fair
--- NOTE | 2019-10-20 20:00 | PDOC.CMSAFED ---
- If Service Date Differs Date of service: 10/20/19 Time of Service: 20:00 Care Management Safety Plan Asim is a 53 year old gentleman who presented to the Ed with suicidal ideation. He is well known to [facility] and has had many inpatient psychiatric admissions for depression and suicidal thoughts. Asim is an [facility] CLINICAL ADMINISTRATOR client. He stated to the provider I want to go to sleep and not wake up, however he does not have a plan. He recently quit his job and has not been taking his medications for the past few days. Asim was screened by a mental health crisis screener and was felt to warrant inpatient psychiatric treatment, which he has voluntarily agreed to. In the interim; please note safety plan below to guide patient care while awaiting further assessment. SAFETY PLAN: 1. Will remain on suicide precautions and in paper clothes. 2. Will remain in room under direct supervision of one-on-one staff at all times provided by DONTAE, FABRIC MACHINE OPERATOR central stores attendant. 3. May have paper cups, plates, finger foods as well as a cardboard spoon with which to eat meals. 4. Follow [facility] Management of the Admitted Behavioral Health Patient policy. 5. Comfort bath system only. 6. No personal belongings 7. No visitors. 8. Phone contact limited to?.. 9. Due to VOLUNTARY status, if patient wishes to leave [facility], the [facility] rodent control worker must be contacted to re-evaluate patient prior to patient exiting the building. If deemed appropriate for inpatient psychiatric care, safety plan will be established with patient, and care team, to adhere to patient goals, identify restrictions based on behavioral status, address nutrition, and determine allowed personal belongings, tools for hygiene and personal care. As well plan will determine level of activity including ambulation, level of supervision, visitors, and determine privileges based on level of acuity, behaviors and level of engagement by patient
--- NOTE | 2019-10-20 20:59 | PDOC.MHCN ---
Date of service: 10/20/19 Time of Service: 21:00 Mental Health Crisis Note Presenting Issue How did you arrive at the ED and why did you come: Client called [facility] Emergency Services. Client stated to this clinician he hasn't been taking his medications, he's been throwing them away. He hasn't taken his meds in over 3 days. He has not slept in 4 days. Client reported he has not been eating or drinking anything. He told this clinician he must be dehydrated by now. He has been thinking about suicide, but he is not quite sure what to make of his thoughts. Client reported he felt as though someone was watching him. Client also felt the government was trying to kill him. Client felt an ambulance was not necessary and was transported to the ED by a friend. Precipitating Factors Client is having suicidal thoughts. He told this clinician he was thinking about shredding his arm. He also stated he wanted to cut his wrists the long way and to just cut through everything. Client denies HI. Disposition BEHAVIOR: Cooperative EYE CONTACT: Avoidant MOOD: Depressed AFFECT: Flat APPETITE: Client reported he has not eaten in a few days. SLEEP(trouble falling/staying asleep: Client reported he has not slept in 4 days. Plan This clinician, after having spoken with the client, has come to the conclusion that he does need to be placed in an inpatient facility. Client is willing to be admitted. This clinician has consulted with Kandace and Kirti in the ED and both have agreed the client needs to be admitted. Client will await placement in [facility] while his test results come back. Signature Clinician's Name/Title: Valeria Valentin, COMMUNICATION EQUIPMENT MECHANIC Psychiatry Resident
[2019-10-20 21:05] LABS: Abs Immature Grans 0.05 k/cumm (0.0-0.09); Absolute Basophil Count 0.02 k/cumm (0.0-0.2); Absolute Monocyte Count 1.05 k/cumm (0.11-0.7); Absolute Neutrophil Count 10.15 k/cumm (1.2-6.7); Basophils % 0.1; Eosinophils % 1.3; HCT 46.9 % (40.0-50.0); HGB 16.2 g/dL (13.5-17.5); Immature Grans % 0.3 %; Lymphocytes % 23.9; Mean Corp. HGB Concentration 34.5 g/dL (32.0-36.0); Mean Corpuscular Hemoglobin 28.5 pg (27.0-33.0); Mean Corpuscular Volume 82.4 fL (80-95); Mean Platelet Volume 10.1 fL (8.0-11.0); Neutrophils % 67.4; Platelet Count 222 x1000/uL (130-400); RBC 5.69 m/cumm (4.50-6.00); RBC Distribution Width 13.9 % (11.8-14.1); White Blood Cell Count 15.06 k/cumm (4.4-10.8)
[2019-10-20 21:36] LABS: ALT 28 U/L (16-63); AST 22 U/L (15-37); Albumin 4.1 g/dL (3.4-5.0); Alkaline Phosphatase 127 U/L (46-116); Anion Gap 10.8 mmol/L (3-11); BUN 17 mg/dL (7-18); Bilirubin, Total 0.4 mg/dL (0.2-1.0); CO2 25.2 mmol/L (21.0-32.0); CREATININE 1.11 mg/dL (0.70-1.30); Calcium 9.6 mg/dL (8.5-10.1); Chloride 100 mmol/L (98-107); Glucose 146 mg/dL (74-106); Potassium 3.7 mmol/L (3.5-5.1); Sodium 136 mmol/L (136-145); TSH 12.85 uIU/mL (0.36-3.74); Total Protein 8.2 g/dL (6.4-8.2)
[2019-10-20 21:50] LABS: ETHANOL BLOOD < 3.0 mg/dL (<3)
--- NOTE | 2019-10-20 21:52 | W.PM.HP.N ---
Date of service: 10/20/19 Time of Service: 21:52 Assessment and Plan Assessment and plan (1) Suicidal ideation: Status: Acute Assessment and plan: Suicidal. Will place on precautions. I will hold psych meds and defer to psychiatry to establish new regimen, as current program would appear to be suboptimal. Will leave prn Ativan, but at present patient appears calm and pleasant. Leukocytosis noted, unclear significance. Will just recheck in AM. Will placed on listed dose of Synthroid, I suspect elevated TSH may be related to non-compliance. History of Present Illness History of Present Illness Chief Complaint: suicidal Narrative: 53 male with h/o depression, bipolar, anxiety. Says he has been depressed since his dog -- in 2018. At any rate syas he stopped his med some 4 days [employer] (and takes irregularly in any case) as he just was feeling worse. States no specific plan to kill himself, but fantasizes about slicing his arm. Came to ER, medically cleared, agrees to transfer to facility but unable until COVID testing back. Lab eval of note for white count 15, but seems to have recurrent leukocytosis (unknown etiology). Also TSH 12 (and apparently not taking his Synthroid?) Review of Systems All systems reviewed & are unremarkable except as noted in HPI and below PFSH Medical History Anxiety (Chronic) Bipolar disorder (Chronic) COPD (chronic obstructive pulmonary disease) (Chronic) GERD (gastroesophageal reflux disease) (Chronic) Hypothyroid (Chronic) Traumatic pneumothorax (Inactive) 2017, chest tube x2 Surgical History History of ankle surgery (Inactive) S/P thoracostomy tube placement (Inactive) Social History Smoking/Tobacco Use Status: Current every day Tobacco Type: cigarettes Alcohol Intake: never Drug use: Daily Substance use type: marijuana Do you feel safe at home: Yes Do you feel safe in your relationship?: Yes Meds Home Medications and Allergies Home Medications Medication Instructions Recorded Confirmed Type omeprazole 20 mg PO QAM 10/16/13 10/20/19 History pravastatin 20 mg PO HS 06/22/17 10/20/19 History prazosin 2 mg PO HS 06/22/17 10/20/19 History Vraylar 3 mg PO DAILY 05/07/18 08/30/19 History melatonin 3 mg PO HS PRN 05/07/18 10/20/19 History trazodone 150 mg PO DAILY 05/07/18 08/30/19 History hydroxyzine HCl 25 mg PO BID #0 tab 05/09/18 10/20/19 Rx lamotrigine [Lamictal] 200 mg PO DAILY #0 tab 05/09/18 10/20/19 Rx hydroxyzine pamoate [Vistaril] 25 mg PO BID PRN 04/01/19 10/20/19 History bupropion HCl 200 mg PO QAM 10/20/19 10/20/19 History levothyroxine 75 mcg PO QAM 10/20/19 10/20/19 History magnesium oxide 400 mg PO QAM 10/20/19 10/20/19 History olanzapine 20 mg PO HS 10/20/19 10/20/19 History quetiapine [Seroquel] 100 mg PO HS 10/20/19 10/20/19 History Allergies Allergy/AdvReac Type Severity Reaction Status Date / Time Sulfa (Sulfonamide Allergy Severe Swelling/Ed Unverified 10/20/19 19:33 Antibiotics) jostin Exam Narrative Exam Narrative: 127/92, 102, 14, 37.2, 97% RA. HEENT atraumatic; neck supple; lungs clear; heart RRR w/o MRG; abdomen soft and NT; extremities w/o edema; neuro ox3, slightly pressured speech if at all, lucid, non-focal Results Labs Result diagrams: 10/20/19 20:58 10/20/19 20:58 Labs: Laboratory Results - last 24 hr 10/20/19 10/20/19 20:58 20:58 WBC 15.06 H RBC 5.69 Hgb 16.2 Hct 46.9 MCV 82.4 MCH 28.5 MCHC 34.5 RDW 13.9 Plt Count 222 MPV 10.1 Immature Gran % 0.3 Neutrophils % 67.4 Lymphocytes % 23.9 Monocytes % 7.0 Eosinophils % 1.3 Basophils % 0.1 Absolute Neutrophils 10.15 H Absolute Lymphocytes 3.60 H Absolute Monocytes 1.05 H Absolute Eosinophils 0.20 Absolute Basophils 0.02 Sodium 136 Potassium 3.7 Chloride 100 Carbon Dioxide 25.2 Anion Gap 10.8 BUN 17 Creatinine 1.11 Estimated GFR/1.73 m2 >= 60.00 Glucose 146 H Calcium 9.6 Total Bilirubin 0.4 AST 22 ALT 28 Alkaline Phosphatase 127 H Total Protein 8.2 Albumin 4.1 TSH 12.85 H Ethyl Alcohol < 3.0 Last Vital Signs Temp 37.2 C 10/20/19 19:22 Pulse 102 H 10/20/19 19:22 Resp 14 10/20/19 19:22 BP 127/92 H 10/20/19 19:22 Pulse Ox 97 10/20/19 19:22 COVID-19 Screening In the past 14 days, have you traveled outside of [place] or [place]?: NO Had IN PERSON contact w/suspected or confirmed C-19 person: No
[2019-10-20 21:55] LABS: Acetaminophen < 2 ug/mL (10-30); Salicylate 5.4 mg/dL (2.8-20.0)
[2019-10-20 22:07] LABS: Bilirubin Negative (Negative); Blood Negative (Negative); Clarity Clear (Clear); Glucose Negative (Negative); Ketones Negative (Negative); Leukocyte Esterase Negative (Negative); Nitrite Negative (Negative); Urobilinogen 0.2 EU/dL (Up TO 0.2)
[2019-10-20 22:21] LABS: *AMPHETAMINES SCREEN URINE Negative (Negative); *BARBITURATES SCREEN URINE Negative (Negative); *BENZODIAZEPINES SCREEN URINE Negative (Negative); Cannabinoids THC POSITIVE (Negative); Cocaine Screen,Urine Negative (Negative); METHADONE URINE SCREEN Negative (Negative); OPIATES URINE SCREEN Negative (Negative)
[2019-10-20 22:24] LABS: Tricyclic Antidepressants Negative (Negative)
[2019-10-20 22:32] LABS: FREE T4 1.05 ng/dL (0.76-1.46)
[2019-10-20 22:39] VITALS: BP 128/90; PULSE 93; RESP 14; TEMP 36.4; O2SAT 98
[2019-10-20 22:40] VITALS: BP 141/87; PULSE 102; RESP 18; TEMP 36.1; O2SAT 95
[2019-10-20] MEDS: LORazepam 1 MG TAB PO (23:14)
[2019-10-20] MEDS: Omeprazole 20 MG CAPCR PO (23:37)
--- NOTE | 2019-10-21 05:56 | NUR.NOTE ---
patient labs MD Note and MH note faxed to the [facility] as requested by mental Health Nursing Note:
[2019-10-21] MEDS: Levothyroxine 75 MCG TAB PO (06:33)
[2019-10-21 07:55] LABS: HCT 45.3 % (40.0-50.0); HGB 15.4 g/dL (13.5-17.5); Mean Corpuscular Hemoglobin 28.3 pg (27.0-33.0); Mean Corpuscular Volume 83.3 fL (80-95); Mean Platelet Volume 10.2 fL (8.0-11.0); Platelet Count 207 x1000/uL (130-400); RBC 5.44 m/cumm (4.50-6.00); RBC Distribution Width 13.9 % (11.8-14.1); White Blood Cell Count 8.97 k/cumm (4.4-10.8)
[2019-10-21] MEDS: Omeprazole 20 MG CAPCR PO (09:55)
--- NOTE | 2019-10-21 11:38 | DSE_ITS ---
Date of service: 10/21/19 Time of Service: 11:38 DS: Diagnosis Discharge Diagnosis (1) Suicidal ideation: Status: Acute Asessment and Plan: accepted for inpatient psychiatric care, no specific plan, has been non-compliant with medications (2) Hypothyroid: Status: Chronic Asessment and Plan: TSH 12, likely not taking synthroid either, will resume home dosing and recheck TSH in 6 weeks. (3) Bipolar disorder: Status: Chronic Asessment and Plan: not taking medications, will leave to outpatient care team (4) COPD (chronic obstructive pulmonary disease): Status: Chronic Asessment and Plan: stable. (5) Tobacco abuse: Status: Acute Asessment and Plan: nicotine patch (6) Leukocytosis: Status: Acute Asessment and Plan: history of leukocytosis with no etiology. white count normalized overnight. Discharge Plan Disposition Patient Disposition: [facility] Condition: Fair Discharge Details Chief Complaint: PsychEval Reason For Visit: SUICIDAL Admit Date/Time: 10/20/19 22:08 Admit Provider: Saravanan Pires Attending Provider: Saravanan Pires Primary Care Provider: Fariba Forde [facility] Course: This is a 53 year old male with history of depression, bipolar, anxiety, reports that he has been depressed since his dog in 2018. Reportedly stopped his medications approximately 4 days prior. He has no specific plan to kill himself, but fantasizes about slicing his arm. He presented to the emergency department and was medically cleared, a bed was obtained at [facility] but he can not be transferred until COVID testing back. Lab evaluation did note a white count 15, but seems to have recurrent leukocytosis with no known etiology. He has no evidence of an infection and his white count has normalized. Also TSH 12, but dose not adjusted at this time d/t history of medication non-compliance. home dosing restarted and should have a TSH rechecked in 6 weeks. His covid testing returned negative and he is being transported to [facility] for inpatient psychiatric care of major depression with suicidal ideation. discharge plan discussed with Dr Grossman who is in agreement. Home Meds and New Rx's Prescriptions: New nicotine 21 mg/24 hr Patch 24 Hour 21 mg transdermal DAILY PRN PRNQty: 0 RF: 0 Continued omeprazole 20 MG capsule,delayed release(DR/EC) 20 mg PO QAM RF: 0 levothyroxine 88 mcg capsule 75 mcg PO QAM RF: 0 Discontinued quetiapine [Seroquel] 50 mg tablet 100 mg PO HS RF: 0 olanzapine 20 mg tablet 20 mg PO HS RF: 0 pravastatin 20 MG tablet 20 mg PO HS RF: 0 prazosin 2 MG capsule 2 mg PO HS RF: 0 trazodone 150 mg Tablet 150 mg PO DAILY RF: 0 No Action hydroxyzine pamoate [Vistaril] 25 mg Capsule 25 mg PO BID PRNRF: 0 bupropion HCl 100 mg tablet sustained-release 12 hr 200 mg PO QAM RF: 0 magnesium oxide 400 mg (241.3 mg magnesium) tablet 400 mg PO QAM RF: 0 melatonin 5 mg Tablet 3 mg PO HS PRNRF: 0 Vraylar 3 mg Capsule 3 mg PO DAILY RF: 0 hydroxyzine HCl 25 mg Tablet 25 mg PO BID Qty: 0 RF: 0 lamotrigine [Lamictal] 100 mg Tablet 200 mg PO DAILY Qty: 0 RF: 0 Discharge Instructions Instructions: Depression (DC), Suicide Prevention (DC) Additional Instructions: inpatient psychiatric evaluation and treatment Referrals: Fariba Forde [Primary Care Provider] - Activity:: Activity as Tolerated Equipment/Supplies:: No Equipment Needed Diet:: As Tolerated Discharge Orders Discharge Orders: Discharge Order (Routine); Ordered 10/21/19 Ordered By: Maddie Awad DS: Summary Status at Discharge Functional status at discharge: independent ambulation Overall status at discharge: patient is not back to baseline Mental Status: mental status grossly normal and other (depressed) Speech and Movement: speech and movement normal Mood: other (depressed) Affect: blunted Exam Const General: cooperative, comfortable, no acute distress and disheveled Nutritional Appearance: thin Orientation: alert, awake and oriented x3 HENMT Head: normal to inspection, normocephalic and atraumatic Mouth: moist mucous membranes abnormal (dry with exudate) Resp Effort & Inspection: normal respiratory effort Auscultation: clear to auscultation bilaterally Cardio Rate: regular rate Rhythm: regular rhythm Heart Sounds: no murmurs GI Inspection: normal to inspection Palpation: soft Auscultation: normal bowel sounds Skin General skin exam: dry skin Neuro General: patient alert, patient awake and patient oriented x3 Cranial Nerves: CN's II-XI intact bilaterally Speech: speech normal Gait: normal gait Extrem General: normal to inspection, full ROM and no pedal edema Psych Appearance: disheveled Mental Status: mental status grossly normal and other (depressed) Speech and Movement: speech and movement normal Mood: other (depressed) Affect: blunted Attitude: cooperative Thought Content: suicidality Insight: limited Judgment: poor DS: Data Vitals/I&O Vitals and I&O: Vital Signs Temperature 36.1 C L 10/20/19 22:40 Temperature Source Tympanic 10/20/19 22:40 Pulse 102 H 10/20/19 22:40 Pulse Rhythm Regular 10/20/19 22:48 Respiratory Rate 18 10/20/19 22:40 Respiratory Effort Non-Labored 10/20/19 22:48 Respiratory Depth Normal 10/20/19 22:48 Respiratory Pattern Normal 10/20/19 22:48 Blood Pressure 141/87 H 10/20/19 22:40 Blood Pressure Position Sitting 10/20/19 19:22 Pulse Oximetry 95 10/20/19 22:40 Oxygen Delivery Method Room Air 10/20/19 22:40 Oxygen Flow Rate 0 10/20/19 22:40 Pain Level 5 10/20/19 22:40 Intake & Output 10/20/19 10/20/19 10/21/19 11:59 23:59 11:59 Weight 70.307 kg Other: Comment pt goes independently Voiding Methods Toilet Toilet Data Completed and Pending Labs on day of discharge: Labs from last 24 hours 10/21/19 10/20/19 10/20/19 06:15 21:50 21:50 WBC 8.97 D RBC 5.44 Hgb 15.4 Hct 45.3 MCV 83.3 MCH 28.3 MCHC 34.0 RDW 13.9 Plt Count 207 MPV 10.2 Immature Gran % Neutrophils % Lymphocytes % Monocytes % Eosinophils % Basophils % Absolute Neutrophils Absolute Lymphocytes Absolute Monocytes Absolute Eosinophils Absolute Basophils Sodium Potassium Chloride Carbon Dioxide Anion Gap BUN Creatinine Estimated GFR/1.73 m2 Glucose Calcium Total Bilirubin AST ALT Alkaline Phosphatase Total Protein Albumin TSH Free T4 Urine Color Yellow Urine Clarity Clear Urine pH 6.0 Ur Specific [place] 1.020 Urine Protein Negative Urine Ketones Negative Urine Blood Negative Urine Nitrite Negative Urine Bilirubin Negative Urine Urobilinogen 0.2 Ur Leukocyte Esterase Negative Urine Glucose Negative Salicylates Urine Opiates Screen Negative Urine Methadone Screen Negative Acetaminophen Ur Barbiturates Screen Negative Ur Tricyclics Screen Negative Ur Amphetamines Screen Negative U Benzodiazepines Scrn Negative Urine Cocaine Screen Negative Ur THC Screen Positive A Ethyl Alcohol COVID-19 PCR Nasopharyn COVID-19 PCR Ref Test Perform Site 10/20/19 10/20/19 10/20/19 21:05 20:58 20:58 WBC 15.06 H RBC 5.69 Hgb 16.2 Hct 46.9 MCV 82.4 MCH 28.5 MCHC 34.5 RDW 13.9 Plt Count 222 MPV 10.1 Immature Gran % 0.3 Neutrophils % 67.4 Lymphocytes % 23.9 Monocytes % 7.0 Eosinophils % 1.3 Basophils % 0.1 Absolute Neutrophils 10.15 H Absolute Lymphocytes 3.60 H Absolute Monocytes 1.05 H Absolute Eosinophils 0.20 Absolute Basophils 0.02 Sodium Potassium Chloride Carbon Dioxide Anion Gap BUN Creatinine Estimated GFR/1.73 m2 Glucose Calcium Total Bilirubin AST ALT Alkaline Phosphatase Total Protein Albumin TSH Free T4 1.05 Urine Color Urine Clarity Urine pH Ur Specific [place] Urine Protein Urine Ketones Urine Blood Urine Nitrite Urine Bilirubin Urine Urobilinogen Ur Leukocyte Esterase Urine Glucose Salicylates Urine Opiates Screen Urine Methadone Screen Acetaminophen Ur Barbiturates Screen Ur Tricyclics Screen Ur Amphetamines Screen U Benzodiazepines Scrn Urine Cocaine Screen Ur THC Screen Ethyl Alcohol COVID-19 PCR Pending Nasopharyn COVID-19 PCR Pending Ref Test Perform Site Pending 10/20/19 10/20/19 20:58 20:58 WBC RBC Hgb Hct MCV MCH MCHC RDW Plt Count MPV Immature Gran % Neutrophils % Lymphocytes % Monocytes % Eosinophils % Basophils % Absolute Neutrophils Absolute Lymphocytes Absolute Monocytes Absolute Eosinophils Absolute Basophils Sodium 136 Potassium 3.7 Chloride 100 Carbon Dioxide 25.2 Anion Gap 10.8 BUN 17 Creatinine 1.11 Estimated GFR/1.73 m2 >= 60.00 Glucose 146 H Calcium 9.6 Total Bilirubin 0.4 AST 22 ALT 28 Alkaline Phosphatase 127 H Total Protein 8.2 Albumin 4.1 TSH 12.85 H Free T4 Urine Color Urine Clarity Urine pH Ur Specific [place] Urine Protein Urine Ketones Urine Blood Urine Nitrite Urine Bilirubin Urine Urobilinogen Ur Leukocyte Esterase Urine Glucose Salicylates 5.4 Urine Opiates Screen Urine Methadone Screen Acetaminophen < 2 Ur Barbiturates Screen Ur Tricyclics Screen Ur Amphetamines Screen U Benzodiazepines Scrn Urine Cocaine Screen Ur THC Screen Ethyl Alcohol < 3.0 COVID-19 PCR Nasopharyn COVID-19 PCR Ref Test Perform Site [facility] Medical History Anxiety (Chronic) Bipolar disorder (Chronic) COPD (chronic obstructive pulmonary disease) (Chronic) GERD (gastroesophageal reflux disease) (Chronic) Hypothyroid (Chronic) Traumatic pneumothorax (Inactive) 2017, chest tube x2 Surgical History History of ankle surgery (Inactive) S/P thoracostomy tube placement (Inactive) Social History Smoking/Tobacco Use Status: Current every day Tobacco Type: cigarettes Alcohol Intake: never Drug use: Daily Substance use type: marijuana Do you feel safe at home: Yes Do you feel safe in your relationship?: Yes
[2019-10-21 13:22] LABS: COVID-19 RT-PCR UVMMC Result Negative (Negative)
--- NOTE | 2019-10-21 13:49 | CMDISCH_ITS ---
- If Service Date Differs Date of service: 10/21/19 Time of Service: 13:49 LACE Index Scoring Tool - Questions: Length of Stay (in days): 1 Acuity (Admit via E.D.?): Yes Comorbidities: Chronic Pulmonary Disease E.D. Visits: 6 - Answers: Total Score: 10 Risk of Readmission: High Risk Care Management Discharge Reason for Hospitalization: suicidal ideation Discharge Plan: Asim will transfer to [facility] for inptient psychiatric care. Patient/Family Education Needs: as determined by receiving facility
== END 2019-10-21 13:10 | disposition short-term general hospital (02) ==
LOC: ER 22:16 → MS 22:41
PROVIDERS: Admitting Provider General Practice; Emergency Provider Physician Assistant; PCP Nurse Practitioner; Visit Provider Internal Medicine
DX: R45.851 Suicidal ideations (principal); F31.30 Bipolar disorder, current episode depressed, mild or moderate severity, unspecified; Z75.1 Person awaiting admission to adequate facility elsewhere; E03.9 Hypothyroidism, unspecified; F17.210 Nicotine dependence, cigarettes, uncomplicated; Z03.818 Encounter for observation for suspected exposure to other biological agents ruled out
CPT/HCPCS: 36415; 80053; 80307; 85027; 99217; 99222; 99285; U0003; 80320; 80329; 81003; 84439; 84443; 85025; 99218; 99283; G0378

== ENCOUNTER 2019-12-18 22:04 | Observation (INO) | payer MEDICAID, SELFPAY ==
[2019-12-18 22:10] VITALS: BP 138/88; PULSE 95; RESP 16; TEMP 36.4; O2SAT 96
--- NOTE | 2019-12-18 22:23 | W.ED.GENAD ---
Discharge Plan Disposition Patient Disposition: [facility] INPATIENT Condition: Stable Discharge Details Chief Complaint: PsychEval Clinical Impression: Depression with suicidal ideation Admit Date/Time: 12/19/19 11:30 Admit Provider: Jaime Garvey Attending Provider: Jaime Garvey Primary Care Provider: Fariba Forde ED Provider: Rani Huffman Hospital Course Hospital Course: 54 y.o male with PMH, Bipolar, COPD, presented to [facility] ED with c/o wanting to kill himself. He had a plan for suicide. History of SI attempt. He was seen by in ED and evaluated for SI. Mental health recommend he be placed involuntarily. He was medically cleared by the emergency department prior to admission, we were asked to admit until placement available. He has been accepted at [facility] by Dr. Manju Villegas. Discharge Instructions Additional Instructions: Transfer to [facility] Forms: Nursing Discharge Form Referrals: Fariba Forde [Primary Care Provider] - (needs a follow up with PCP) Discharge Data Discharge Date/Time-TO BE ENTERED AT DEPARTURE: 12/19/19 12:41 Medical Decision Making <Mickey Ragsdale DO - Last Filed: 12/19/19 21:04> 54-year-old male with a past medical history of previous suicidal ideation symptoms, bipolar, COPD, who presents today for evaluation of suicidal ideations. Patient states that he is tired of life, and all the drama. He states that he wants to kill himself and will do so by either buying a bag of heroin and overdosing, even though I do not do heroin. Or getting into a confrontation with a scleroscope tester so I get shot in the eye. Patient states that he has tried to kill himself in the past by slitting his wrists, he denies any other complaints at this time. He denies any auditory or visual hallucinations. He denies any homicidal ideations. He denies any IV or illicit drug use to me. No alcohol use. No other complaints at this time. Physical examination demonstrates no concerning physical exam findings, signs and symptoms consistent with suicidal ideations likely secondary to his bipolar. Patient otherwise appears safe at this time, but does certainly need help. We will do screening labs although clinically the patient appears medically cleared at this time. Will contact mental health for evaluation, the patient is notably resistant to having his clothes removed, so as a compromise we will have him wanded down by the technical support technician. Will make sure he is safe in his current environment. We will monitor closely and reassess. Also of note the patient has not taken any of his medications for the last 4 days, and he refuses to take any now. 12:28 AM Patient has been assessed by mental health, they agree on the need for treatment. Currently the patient does not want to voluntarily go to a psychiatric facility, mental health has recommended the help of a qualified mental health professional for EE process. Patient has been medically cleared at this time, he remains very pleasant. He has stated that he would like something to help relax, we will give a small dose of oral Ativan and Zyprexa. <Rani Huffman DO - Last Filed: 12/22/19 08:03> 0800 --please see Dr. Ragsdale's note for initial presentation, exam and plan. Pt is here involuntary and EE paperwork completed. Case is endorsed to follow-up with mental health this morning regarding placement. 1000 --care management and mental health evaluating at bedside. 1030 --second cert will likely not happen until late this evening. D/w care management and nursing supervisor plastics. No mental health beds available at this time but there is plan on discharges. Will d/w hospitalist to admit and transfer to floor once bed available. Of note, pt is refusing covid swab and to change into paper scrubs. This was d/w care management. 1105 --d/w hospitalist - accepts pt for admission. Patient now agreeable to COVID swab and changing into paper scrubs. HPI <Mickey Ragsdale DO - Last Filed: 12/19/19 21:04> General Date/Time Provider Initiated Documentation: 12/18/19 22:07. HPI Narrative: 54-year-old male with a past medical history of previous suicidal ideation symptoms, bipolar, COPD, who presents today for evaluation of suicidal ideations. Patient states that he is tired of life, and all the drama. He states that he wants to kill himself and will do so by either buying a bag of heroin and overdosing, even though I do not do heroin. Or getting into a confrontation with a scleroscope tester so I get shot in the eye. Patient states that he has tried to kill himself in the past by slitting his wrists, he denies any other complaints at this time. He denies any auditory or visual hallucinations. He denies any homicidal ideations. He denies any IV or illicit drug use to me. No alcohol use. No other complaints at this time. Related Data Home Medications Medication Instructions Recorded Confirmed omeprazole 20 mg PO QAM 10/16/13 12/18/19 magnesium oxide 400 mg PO QAM 10/20/19 12/18/19 hydroxyzine pamoate [Vistaril] 50 mg PO TID PRN 12/19/19 12/19/19 levothyroxine 75 mcg PO DAILY 12/19/19 12/19/19 melatonin 9 mg PO HS 12/19/19 12/19/19 olanzapine 5 mg PO BID 12/19/19 12/19/19 pravastatin 20 mg PO HS 12/19/19 12/19/19 trazodone 50 mg PO HS 12/19/19 12/19/19 Allergies Allergy/AdvReac Type Severity Reaction Status Date / Time Sulfa (Sulfonamide Allergy Severe Swelling/Ed Unverified 12/18/19 22:14 Antibiotics) jostin General Stated Complaint: PsychEval ABA: 2 Review of Systems <Mickey Ragsdale DO - Last Filed: 12/19/19 21:04> All systems reviewed & are unremarkable except as noted in HPI and below PFSH <Mickey Ragsdale DO - Last Filed: 12/19/19 21:04> Medical History Anxiety (Chronic) Bipolar disorder (Chronic) COPD (chronic obstructive pulmonary disease) (Chronic) GERD (gastroesophageal reflux disease) (Chronic) Hypothyroid (Chronic) Traumatic pneumothorax (Inactive) 2017, chest tube x2 Surgical History History of ankle surgery (Inactive) S/P thoracostomy tube placement (Inactive) Social History Smoking/Tobacco Use Status: Current every day Tobacco Type: cigarettes Alcohol Intake: never Drug use: Daily Substance use type: marijuana Do you feel safe at home: Yes Do you feel safe in your relationship?: Yes Exam <Mickey Ragsdale, DO - Last Filed: 12/19/19 21:04> Narrative Exam Narrative: 1.Const: Well-nourished, Well-developed, appearing stated age 2.Eyes: PERRL, no conjunctival injection, and symmetrical lids. 3.ENT: Atraumatic external nose and ears. Moist MM. Neck: Symmetric, trachea midline, No thyromegaly. 4.CVS: +S1/S2, No murmurs or gallops. Peripheral pulses 2+ and equal in all extremities. Brisk capillary refill in all extremities. 5.RESP: Unlabored respiratory effort. Clear to auscultation bilaterally. No wheezes rales or rhonchi 6.GI: Soft, Nontender/Nondistended, No hepatosplenomegaly. No guarding or rebound. 7.MSK: Normocephalic/Atraumatic, Extremities w/o deformity or ttp No cyanosis or clubbing, Normal movement of all extremities 8.Skin: Warm, Dry. No rashes or lesions. 9.Neuro: tax compliance manager II-XII grossly intact. Sensation grossly intact, no focal neurologic deficits. 10.Psych: (AAO) x3. Appropriate mood and affect, patient somewhat excitable, but otherwise appears stable. Course <Mickey Luna Melyssa, DO - Last Filed: 12/19/19 21:04> Vital Signs Vital signs: Vital Signs Temperature 36.4 C L 12/18/19 22:10 Pulse 95 H 12/18/19 22:10 Respiratory Rate 16 12/18/19 22:10 Blood Pressure 138/88 12/18/19 22:10 Pulse Oximetry 96 12/18/19 22:10 Temperature 36.4 C L 12/18/19 22:10 Pulse 95 H 12/18/19 22:10 Respiratory Rate 16 12/18/19 22:10 Respiratory Effort Non-Labored 12/18/19 22:16 Blood Pressure 138/88 12/18/19 22:10 Pulse Oximetry 96 12/18/19 22:10 Pain Level 10 12/18/19 22:10 Lab/Test Results Lab/Test Results: Laboratory Tests Range/Units 12/18/19 22:09 Lipase Cancelled Sign Out <Mickeyarnold Ragsdale DO - Last Filed: 12/19/19 21:04> Sign Out Data: Sign Out Comment: Suicidal, with a plan, required EE. Mental health recommends admission to psychiatric facility. Potential beds at outpatient facilities. Reassess in a.m. versus admit to [facility] pending transfer. Last updated by Mickey Ragsdale DO at 12/19/19 04:30
[2019-12-18 22:35] LABS: Abs Immature Grans 0.07 10^3/uL (0.0-0.06); Absolute Basophil Count 0.05 10^3/uL (0.0-0.2); Absolute Eosinophil Count 0.08 10^3/uL (0.0-0.7); Absolute Monocyte Count 0.79 10^3/uL (0.1-0.8); Basophils % 0.4; Eosinophils % 0.6; HCT 47.9 % (40.0-50.0); HGB 15.7 g/dL (13.5-17.5); Immature Grans % 0.5; Lymphocytes % 21.7; MCH 27.4 pg (27.0-33.0); MCHC 32.8 % (32.0-36.0); MCV 83.7 fL (80-95); Monocytes % 6.1; Neutrophils % 70.7; Platelet Count 210 10^3/uL (130-400); RBC 5.72 10^6/uL (4.36-5.78); RDW 12.8 % (11.8-14.1); RDW-SD 39.3 fL; WBC 12.92 10^3/uL (4.4-10.8)
[2019-12-18 22:40] LABS: Absolute Neutrophil Count 9.13 10^3/uL (1.2-6.7)
[2019-12-18 22:57] LABS: ETHANOL BLOOD < 3.0 mg/dL (<3)
[2019-12-18 23:01] LABS: Salicylate 5.2 mg/dL (2.8-20.0)
[2019-12-18 23:05] LABS: TSH (W/Ref FT4) 10.39 uIU/mL (0.36-3.74)
[2019-12-18 23:12] LABS: Acetaminophen < 2 ug/mL (10-30)
[2019-12-18 23:27] LABS: ALT 26 U/L (16-63); AST 21 U/L (15-37); Albumin 4.6 g/dL (3.4-5.0); Alkaline Phosphatase 64 U/L (46-116); Anion Gap 16.6 mmol/L (3-11); BUN 17 mg/dL (7-18); Bilirubin, Total 0.7 mg/dL (0.2-1.0); CO2 22.4 mmol/L (21.0-32.0); CREATININE 0.97 mg/dL (0.70-1.30); Chloride 104 mmol/L (98-107); Glucose 127 mg/dL (74-106); Potassium 3.4 mmol/L (3.5-5.1); Sodium 143 mmol/L (136-145); Total Protein 7.5 g/dL (6.4-8.2)
[2019-12-18] MEDS: LORazepam 1 MG TAB PO (23:30)
--- NOTE | 2019-12-18 23:32 | CMSP_ITS ---
- If Service Date Differs Date of service: 12/18/19 Time of Service: 23:32 Care Management Safety Plan Chief Complaint: Asim is a 54 year old male who is well known to [facility] and has a history of suicidal ideation with multiple psychiatric hospitalizations. A chart review reveals Asim has diagnoses of bipolar disorder and COPD of record. This evening, he presents in the ED because he is tired of life and all the drama. He tells the ED provider that he plans on either buying heroin and overdosing on it or getting into a confrontation with a photocopying equipment repairer so he can get shot in the eye. Asim tells ED provider he has not taken any of his medications for the past 4 days. He receives psychiatric services through the HANDHOLE MACHINE OPERATOR program at [facility]. INVOLUNTARY FOR INPATIENT PSYCHIATRIC STABILIZATION. Safety plan has been established with patient, and care team, to adhere to patient goals, identify restrictions based on behavioral status, address nutrition, and determine allowed personal belongings, tools for hygiene and personal care. Determine level of activity including ambulation, level of supervision, visitors, and determine privileges based on behaviors and level of engagement by patient. SAFETY PLAN: 1. Will remain on suicide precautions and in paper clothes. 2. Will remain in room under direct supervision of one-on-one staff at all times provided by CPSO; DONTAE, FAN RUNNER farm instructor. 3. May have paper cups, plates, finger foods as well as a cardboard spoon with which to eat meals. 4. Follow [facility] Management of the Admitted Behavioral Health Patient policy. 5. Comfort bath system only. 6. No personal belongings 7. Visitors-No visitors at this time 8. Activities: None. 9. Bathroom privileges: While in the ED, must be accompanied by staff. 10. Phone: No phone privileges at this time. 11. Due to INVOLUNTARY status, if patient wishes to leave [facility], the [facility] children's service worker must be contacted to re-evaluate patient prior to patient exiting the building. Patient is currently involuntarily at [facility] and seeking inpatient admission when a bed becomes available. [facility] Frontline Greenskeeper Laborer will continue seeking placement. Please contact the Tax Adjuster Head Kiln Operator ([phone]) and [facility] Greenskeeper Laborer ([phone]) for any needed changes in the Safety Plan. Safety plan has been provided to interdepartmental care team.
--- NOTE | 2019-12-18 23:33 | PDOC.MHCN_ITS ---
Date of service: 12/18/19 Time of Service: 23:33 Mental Health Crisis Note Presenting Issue How did you arrive at the ED and why did you come: Patient at the Ed transported by [facility]. He was distraught and threatening to kill himself by any means possible. He had phoned Emergency Services and said he was done and he wants to . Police were called to do a wellness check and they determined that he should be brought to the hospital . Precipitating Factors Patient reports having stopped taking his medications for 4 days. he reports not eating or sleeping and he has been thinking about suicide for quite some time. He states he does not have any reason to live. He has no hope, says he has no friends or support. He is not using drugs . He said he will buy drugs to overdose on . He is not able to identify any reason for living and says I'm done. He is not willing to make a plan for safety. He is not willing to go to a hospital voluntarily. Discussed issues with Dr. Ragsdale and it was determi daniela he needed to be involuntarily placed in a psychiatric facility. His thoughts are clear and organized and he denies audio or visual hallucinations. Disposition BEHAVIOR: Client is calm and cooperative during the Zoom interview, EYE CONTACT: Client does look at interviewer on the screen for the majority of the assessment. MOOD: He is notably depressed and angry. AFFECT: He is angry. APPETITE: Reports not eating in 4 days. SLEEP(trouble falling/staying asleep: Reports not sleeping. And says he will not sleep in the hospital because he does not trust anybody. Plan [facility] has been contacted to make the EE assessment. Patient will wait in the ER while the process is completed
[2019-12-18 23:43] LABS: FREE T4 1.15 ng/dL (0.76-1.46)
[2019-12-19] MEDS: OLANZapine 10 MG TAB PO (01:18)
[2019-12-19 02:22] LABS: *AMPHETAMINES SCREEN URINE Negative (Negative); *BARBITURATES SCREEN URINE Negative (Negative); *BENZODIAZEPINES SCREEN URINE Negative (Negative); Cannabinoids THC POSITIVE (Negative); Cocaine Screen,Urine Negative (Negative); METHADONE URINE SCREEN Negative (Negative); OPIATES URINE SCREEN Negative (Negative)
[2019-12-19 02:24] LABS: Tricyclic Antidepressants Negative (Negative)
[2019-12-19 10:13] VITALS: BP 97/71; PULSE 76; RESP 18; TEMP 36.5; O2SAT 98
--- NOTE | 2019-12-19 10:32 | NUR.NOTE ---
Nursing Note: Approached patient to request performing a COVID-19 swab. Patient refuses. Physician notified, physician spoke with pt, pt still refuses. Provider reports will inform care management.
--- NOTE | 2019-12-19 10:36 | NUR.NOTE ---
Nursing Note: spoke with pt about needing to change into paper scrubs. Patient refuses to change.
--- NOTE | 2019-12-19 10:47 | PDOC.MHCN ---
Date of service: 12/19/19 Time of Service: 10:00 Mental Health Crisis Note Presenting Issue How did you arrive at the ED and why did you come: Patient arrived at ED via [facility] after calling and stating he was going to commit suicide. Precipitating Factors Patient stopped taking his medications on Thursday 12/14. He would not answer phone calls. He called Emergency Services and reported he was going to kill himself. Patient was mostly unwilling to talk to this clinician. He laid on his bed and pulled the blanket up to almost his eyes. He did report that he still is experiencing S/I and refusing any voluntary help. That he is hopeless, and has no reason to live any longer. When asked about the fact that he had been doing very good over the past several weeks he repliend that that was al just a smoke screen. Patient also reports not having eaten or had anything to drink over the past 4 days. Disposition BEHAVIOR: Patient is withdrawn, depressed and reports hopelesness. EYE CONTACT: Avoidant. Patient answered questions with either his eyes closed and looking away or with the blanket pulled up to nearly completely cover his head. MOOD: Depressed. AFFECT: Flat APPETITE: None SLEEP(trouble falling/staying asleep: Patient reported not having slept over the past several days. He has spend most of his time since he arrived in the ED sleeping.
[2019-12-19 12:50] VITALS: BP 97/71; PULSE 85; RESP 18; TEMP 36.5; O2SAT 98
--- NOTE | 2019-12-19 13:21 | HPE_ITS ---
Date of service: 12/19/19 Time of Service: 13:21 Assessment and Plan Assessment and plan (1) Suicidal thoughts: Start date: 12/19/19 Start time: 13:38 Status: Acute Assessment and plan: With thoughts of killing himself. He has been made involuntary status. He will have a 1:1 public administration teacher CM consulted and working with for placement (2) COPD (chronic obstructive pulmonary disease): Start date: 12/19/19 Start time: 13:42 Status: Chronic Assessment and plan: Not exacerbated at this time. Not interested in smoking cessation at this time (3) Depression: Start date: 12/19/19 Start time: 13:43 Status: Chronic Assessment and plan: continue current regimen (4) Discharge planning issues: Start date: 12/19/19 Start time: 13:44 Status: Acute Assessment and plan: Awaiting placement for bed Above case discussed with Dr. Garvey who is in agreement. History of Present Illness History of Present Illness Chief Complaint: Suidical ideation Narrative: 54 y.o male with PMH, Bipolar, COPD, presented to [facility] ED with c/o wanting to kill himself. He had a plan for suicide. History of SI attempt. He was seen by MH in ED and evaluated for SI. Mental health recommend he be placed involuntarily. He was medically cleared by the emergency department prior to admission, we were asked to admit until placement available. Review of Systems All systems reviewed & are unremarkable except as noted in HPI and below PFSH Medical History Anxiety (Chronic) Bipolar disorder (Chronic) COPD (chronic obstructive pulmonary disease) (Chronic) GERD (gastroesophageal reflux disease) (Chronic) Hypothyroid (Chronic) Traumatic pneumothorax (Inactive) 2017, chest tube x2 Surgical History History of ankle surgery (Inactive) S/P thoracostomy tube placement (Inactive) Social History Smoking/Tobacco Use Status: Current every day Tobacco Type: cigarettes Alcohol Intake: never Drug use: Daily Substance use type: marijuana Do you feel safe at home: Yes Do you feel safe in your relationship?: Yes Meds Home Medications and Allergies Home Medications Medication Instructions Recorded Confirmed Type omeprazole 20 mg PO QAM 10/16/13 12/18/19 History Vraylar 3 mg PO DAILY 05/07/18 12/18/19 History melatonin 3 mg PO HS PRN 05/07/18 12/18/19 History hydroxyzine HCl 25 mg PO BID #0 tab 05/09/18 12/18/19 Rx lamotrigine [Lamictal] 200 mg PO DAILY #0 tab 05/09/18 12/18/19 Rx hydroxyzine pamoate [Vistaril] 25 mg PO TID 04/01/19 12/19/19 History bupropion HCl 200 mg PO HS 10/20/19 12/19/19 History levothyroxine 75 mcg PO QAM 10/20/19 12/18/19 History magnesium oxide 400 mg PO QAM 10/20/19 12/18/19 History nicotine 21 mg TRANSDERMAL DAILY PRN PRN #0 10/21/19 12/18/19 Rx ea olanzapine 5 mg PO BID 12/19/19 12/19/19 History trazodone 50 mg PO HS 12/19/19 12/19/19 History Allergies Allergy/AdvReac Type Severity Reaction Status Date / Time Sulfa (Sulfonamide Allergy Severe Swelling/Ed Unverified 12/18/19 22:14 Antibiotics) jostin Exam Narrative Exam Narrative: Middle aged male asleep on stretcher. Awakes easily. AAOx3 when asked if he wants to harm himself he states I always want to harm myself. LSC, HR tachy but regular. Abd soft x 4, extremities without clubbing, cyanosis or edema. Psych appears cooperative but Suicidal, goes back to sleep after discussion Results Labs Result diagrams: 12/18/19 22:28 12/18/19 22:28 Labs: Laboratory Results - last 24 hr 12/18/19 12/18/19 12/18/19 22:09 22:28 22:28 WBC 12.92 H RBC 5.72 Hgb 15.7 Hct 47.9 MCV 83.7 MCH 27.4 MCHC 32.8 RDW 12.8 Plt Count 210 MPV 10.0 Immature Gran % 0.5 Neutrophils % 70.7 Lymphocytes % 21.7 Monocytes % 6.1 Eosinophils % 0.6 Basophils % 0.4 Absolute Neutrophils 9.13 H Absolute Lymphocytes 2.80 Absolute Monocytes 0.79 Absolute Eosinophils 0.08 Absolute Basophils 0.05 Sodium 143 Potassium 3.4 L Chloride 104 Carbon Dioxide 22.4 Anion Gap 16.6 H BUN 17 Creatinine 0.97 Estimated GFR/1.73 m2 >= 60.00 Glucose 127 H Calcium 9.0 Total Bilirubin 0.7 AST 21 ALT 26 Alkaline Phosphatase 64 Total Protein 7.5 Albumin 4.6 Lipase Cancelled TSH Free T4 Salicylates Urine Opiates Screen Urine Methadone Screen Acetaminophen Ur Barbiturates Screen Ur Tricyclics Screen Ur Amphetamines Screen U Benzodiazepines Scrn Urine Cocaine Screen Ur THC Screen Ethyl Alcohol 12/18/19 12/18/19 12/18/19 22:28 22:28 22:28 WBC RBC Hgb Hct MCV MCH MCHC RDW Plt Count MPV Immature Gran % Neutrophils % Lymphocytes % Monocytes % Eosinophils % Basophils % Absolute Neutrophils Absolute Lymphocytes Absolute Monocytes Absolute Eosinophils Absolute Basophils Sodium Potassium Chloride Carbon Dioxide Anion Gap BUN Creatinine Estimated GFR/1.73 m2 Glucose Calcium Total Bilirubin AST ALT Alkaline Phosphatase Total Protein Albumin Lipase TSH 10.39 H Free T4 1.15 Salicylates 5.2 Urine Opiates Screen Urine Methadone Screen Acetaminophen < 2 Ur Barbiturates Screen Ur Tricyclics Screen Ur Amphetamines Screen U Benzodiazepines Scrn Urine Cocaine Screen Ur THC Screen Ethyl Alcohol < 3.0 12/19/19 01:30 WBC RBC Hgb Hct MCV MCH MCHC RDW Plt Count MPV Immature Gran % Neutrophils % Lymphocytes % Monocytes % Eosinophils % Basophils % Absolute Neutrophils Absolute Lymphocytes Absolute Monocytes Absolute Eosinophils Absolute Basophils Sodium Potassium Chloride Carbon Dioxide Anion Gap BUN Creatinine Estimated GFR/1.73 m2 Glucose Calcium Total Bilirubin AST ALT Alkaline Phosphatase Total Protein Albumin Lipase TSH Free T4 Salicylates Urine Opiates Screen Negative Urine Methadone Screen Negative Acetaminophen Ur Barbiturates Screen Negative Ur Tricyclics Screen Negative Ur Amphetamines Screen Negative U Benzodiazepines Scrn Negative Urine Cocaine Screen Negative Ur THC Screen Positive A Ethyl Alcohol Last Vital Signs Temp 36.5 C 12/19/19 12:50 Pulse 85 12/19/19 12:50 Resp 18 12/19/19 12:50 BP 97/71 L 12/19/19 12:50 Pulse Ox 98 12/19/19 12:50 COVID-19 Screening Have you,or household,traveled outside [place] in last 14 days?: No Had IN PERSON contact w/suspected or confirmed C-19 person: No
--- NOTE | 2019-12-19 14:59 | PHACLINREV_ITS ---
Pharmacy Admission Review - Admission Clinical Review (Last Reviewed 12/19/19 @ 13:38 by Payal Landry NP) Suicidal thoughts (Acute) Discharge planning issues (Acute) Sulfa (Sulfonamide Antibiotics) Allergy (Severe, Unverified 12/18/19 22:14) Swelling/Edema Height 5 ft 7 in Weight 68.039 kg - Renal Dosing Renal Dosing: BUN 17 mg/dL (7-18) 12/18/19 22:28 Creatinine 0.97 mg/dL (0.70-1.30) 12/18/19 22:28 Medications needing adjustments: Reviewed (CrCl ~80.0, current meds okay) - Anticoagulation Anticoagulation: Hgb 15.7 g/dL (13.5-17.5) 12/18/19 22:28 Hct 47.9 % (40.0-50.0) 12/18/19 22:28 Plt Count 210 10^3/uL (130-400) 12/18/19 22:28 Creatinine 0.97 mg/dL (0.70-1.30) 12/18/19 22:28 DVT Prohphylaxis: N/A Therapeutic Anticoagulation: N/A - Opiate Usage Evaluate Pain Scale/Pains Meds: N/A - Relevant Labs Sodium 143 mmol/L (136-145) 12/18/19 22:28 Potassium 3.4 mmol/L (3.5-5.1) L 12/18/19 22:28 Chloride 104 mmol/L (98-107) 12/18/19 22:28 Electrolytes, C-Reactive P, ESR: Reviewed (Na 3.4, WBC 12.92, TSH 10.39) - DM Control DM Control: Glucose 127 mg/dL (74-106) H 12/18/19 22:28 Insulin Dosing: N/A (No DM, glucose was elevated at 127) - Heart Failure/CT EF%, FIOR's, B-Blockers, Diuretics: N/A - BP Control BP Control: Blood Pressure [Left Arm] 97/71 Blood Pressure 97/71 If elevated: N/A (BP 97/71, both readings today have been low) - Qtc Review If Elevated: N/A (No recent EKG labs) - IV to PO Switch IV Medications: Reviewed - Home Meds Home Med List reviewed: Reviewed Relevent Home Meds Not ordered & why?: olanzapine, pravastatin, trazodone. Home med list was confirmed with [facility] pharmacy. - Current meds Current Medication Order Review: Reviewed (Levothyroxine should be administered 4 hours from magnesium oxide and omeprazole. Timing of magnesium changed to 1000) - Comments Comments/Follow Ups: Monitor BP, levothyroxine efficacy. Current plan for patient per MD is to wait for placement in a psychiatric inpatient treatment c enter. He was medically cleared by the ED.
--- NOTE | 2019-12-19 16:11 | CMSP_ITS ---
- If Service Date Differs Date of service: 12/19/19 Time of Service: 16:11 Care Management Safety Plan Chief Complaint: Asim is a 54 year old male who is well known to [facility] and has a history of suicidal ideation with multiple psychiatric hospitalizations. A chart review reveals Asim has diagnoses of bipolar disorder and COPD of record. Presented to the ED because he is tired of life and all the drama. He tells the ED provider that he plans on either buying heroin and overdosing on it or getting into a confrontation with a coping machine operator so he can get shot in the eye. Asim tells ED provider he has not taken any of his medications for the past 4 days. He receives psychiatric services through the AIRPLANE GAS TANK LINER ASSEMBLER program at [facility]. INVOLUNTARY FOR INPATIENT PSYCHIATRIC STABILIZATION. Safety plan has been established with patient, and care team, to adhere to pat ient goals, identify restrictions based on behavioral status, address nutrition, and determine allowed personal belongings, tools for hygiene and personal care. Determine level of activity including ambulation, level of supervision, visitors, and determine privileges based on behaviors and level of engagement by patient. SAFETY PLAN: 1. Will remain on suicide precautions and in paper clothes. 2. Will remain in room under direct supervision of one-on-one staff at all times provided by CPS; DONTAE, TOOTH CUTTER project development director. 3. May have paper cups, plates, finger foods as well as a cardboard spoon with which to eat meals. 4. Follow [facility] Management of the Admitted Behavioral Health Patient policy. 5. Comfort wipes or Shower with one on one supervision 6. No personal belongings 7. Visitors-None at this time 8. Activities: Television, crayons, paper, books and other reading material. 9. Bathroom independent when in the room 10. Phone: AIRPLANE GAS TANK LINER ASSEMBLER and legal 11. Due to INVOLUNTARY patient is under the custody of [place] [facility] AIRPLANE GAS TANK LINER ASSEMBLER update-[facility] and [facility] have both made bed offers according to [facility] pending COVID and second certification. Patient is currently Involuntarily at [facility] awaiting inpatient admission when a bed becomes available. [facility] point AIRPLANE GAS TANK LINER ASSEMBLER person will continue seeking placement. Please contact the Medical Service Representative Computer Repairer ([phone]) and [facility] Equipment Service Technician ([phone]) for any needed changes in the Safety Plan. Safety plan has been provided to interdepartmental care team.
--- NOTE | 2019-12-19 16:11 | PDOC.CMSAFE ---
- If Service Date Differs Date of service: 12/19/19 Time of Service: 16:11 Care Management Safety Plan Chief Complaint: Asim is a 54 year old male who is well known to [facility] and has a history of suicidal ideation with multiple psychiatric hospitalizations. A chart review reveals Asim has diagnoses of bipolar disorder and COPD of record. Presented to the ED because he is tired of life and all the drama. He tells the ED provider that he plans on either buying heroin and overdosing on it or getting into a confrontation with a gyroscopic engineering technician so he can get shot in the eye. Asim tells ED provider he has not taken any of his medications for the past 4 days. He receives psychiatric services through the MANAGEMENT RETAIL INTERN program at [facility]. INVOLUNTARY FOR INPATIENT PSYCHIATRIC STABILIZATION. Safety plan has been established with patient, and care team, to adhere to patient goals, identify restrictions based on behavioral status, address nutrition, and determine allowed personal belongings, tools for hygiene and personal care. Determine level of activity including ambulation, level of supervision, visitors, and determine privileges based on behaviors and level of engagement by patient. SAFETY PLAN: 1. Will remain on suicide precautions and in paper clothes. 2. Will remain in room under direct supervision of one-on-one staff at all times provided by CPS; DONTAE, COMMUNITY RESOURCE OFFICER staking press operator. 3. May have paper cups, plates, finger foods as well as a cardboard spoon with which to eat meals. 4. Follow [facility] Management of the Admitted Behavioral Health Patient policy. 5. Comfort wipes or Shower with one on one supervision 6. No personal belongings 7. Visitors-None at this time 8. Activities: Television, crayons, paper, books and other reading material. 9. Bathroom independent when in the room 10. Phone: MANAGEMENT RETAIL INTERN and legal 11. Due to INVOLUNTARY patient is under the custody of [place] [facility] MANAGEMENT RETAIL INTERN update-[facility] and [facility] have both made bed offers according to [facility] pending COVID and second certification. Patient is currently Involuntarily at [facility] awaiting inpatient admission when a bed becomes available. [facility] point MANAGEMENT RETAIL INTERN person will continue seeking placement. Please contact the Radiation Technician Claim Professional ([phone]) and [facility] Rounder Hand ([phone]) for any needed changes in the Safety Plan. Safety plan has been provided to interdepartmental care team.
--- NOTE | 2019-12-19 18:17 | CMPROGNOTE_ITS ---
- If Service Date Differs Date of service: 12/19/19 Time of Service: 18:17 Care Management Progress Note S/O: Asim was appropriate when CM into meet with him prior to the 2nd cert however after CM left the room he became escalated per CPSO and stated he did not want to meet with psychiatrist. CM return to the room with tablet and offered patient to meet with . Asim was minimally engaged during televisit he did answer some questions. He states he is still suicidal and if he remains in the hospital he will starve himself. Asim tells the psychiatrist he does not want to live anymore and that he is giving up. Callie Willett SHOP FIRER/FIREMAN HS present for the encounter and participates in the visit. Second cert was approved and awaiting COVID results. Per SHOP FIRER/FIREMAN both [facility] and [facility] are offering beds, Asim's first choice is [facility]. A: Asim is a 54 year old male admitted for SI with a plan and is in need of psychiatric stabilization. Asim is involuntary at this time. P: Asim will be discharged once a bed is available and his COVID is resulted. He will be transferred via cementer machine applicator coordinated by [facility] and DM related to involuntary status.
[2019-12-20 01:51] VITALS: BP 125/79; PULSE 84; RESP 16; TEMP 35.9; O2SAT 96
[2019-12-20 08:28] LABS: COVID-19 RT-PCR UVMMC Result Negative (Negative)
--- NOTE | 2019-12-20 09:55 | W.PM.DS.N ---
Date of service: 12/20/19 Time of Service: 09:55 DS: Diagnosis Discharge Diagnosis (1) Suicidal thoughts: Start date: 12/20/19 Start time: 09:55 Status: Acute Asessment and Plan: Continues to have thoughts of suicide. Bed at [facility] accepting Dr. Villegas. Negative COVID (2) COPD (chronic obstructive pulmonary disease): Start date: 12/20/19 Start time: 09:56 Status: Chronic Asessment and Plan: Not exacerbated at this time. (3) Depression: Start date: 12/20/19 Start time: 09:56 Status: Chronic Asessment and Plan: Contributing to SI. above case discussed with Dr. Omer who is in agreemenet. Discharge Plan Disposition Patient Disposition: [facility] Condition: Stable Discharge Details Chief Complaint: PsychEval Clinical Impression: Depression with suicidal ideation Reason For Visit: SUICIDAL IDEATION, DEPRESSION Admit Date/Time: 12/19/19 11:30 Admit Provider: Jaime Garvey Attending Provider: Jaime Garvey Primary Care Provider: Fariba Forde ED Provider: Rani Huffman Hospital Course Hospital Course: 54 y.o male with PMH, Bipolar, COPD, presented to [facility] ED with c/o wanting to kill himself. He had a plan for suicide. History of SI attempt. He was seen by MH in ED and evaluated for SI. Mental health recommend he be placed involuntarily. He was medically cleared by the emergency department prior to admission, we were asked to admit until placement available. He has been accepted at [facility] by Dr. Manju Villegas. Home Meds and New Rx's Prescriptions: Continued omeprazole 20 MG capsule,delayed release(DR/EC) 20 mg PO QAM RF: 0 magnesium oxide 400 mg (241.3 mg magnesium) tablet 400 mg PO QAM RF: 0 trazodone 50 mg tablet 50 mg PO HS RF: 0 olanzapine 5 mg tablet 5 mg PO BID RF: 0 melatonin 3 mg tablet 9 mg PO HS RF: 0 levothyroxine 75 mcg tablet 75 mcg PO DAILY RF: 0 pravastatin 20 mg tablet 20 mg PO HS RF: 0 No Action hydroxyzine pamoate [Vistaril] 50 mg capsule 50 mg PO TID PRN (Reason: Anxiety) RF: 0 Discharge Instructions Additional Instructions: Transfer to [facility] Activity:: Activity as Tolerated Equipment/Supplies:: No Equipment Needed Diet:: As Tolerated Discharge Orders Discharge Orders: Discharge Order (Routine); Ordered 12/20/19 Ordered By: Payal Landry DS: Summary Status at Discharge Functional status at discharge: independent ambulation Overall status at discharge: patient is not back to baseline Mental Status: other (suicidial) Speech and Movement: speech and movement normal Mood: other (suicidial) Affect: labile affect Exam Narrative Exam Narrative: Middle aged male asleep on stretcher. Awakes easily. AAOx3 when asked if he wants to harm himself he states I always want to harm myself. LSC, HR tachy but regular. Abd soft x 4, extremities without clubbing, cyanosis or edema. Psych appears cooperative but Suicidal. Psych Mental Status: other (suicidial) Speech and Movement: speech and movement normal Mood: other (suicidial) Affect: labile affect DS: Data Vitals/I&O Vitals and I&O: Vital Signs Temperature 35.9 C L 12/20/19 01:51 Temperature Source Tympanic 12/20/19 01:51 Pulse 84 12/20/19 01:51 Pulse Rhythm Regular 12/19/19 15:30 Pulse Strength Normal 12/19/19 10:13 Respiratory Rate 16 12/20/19 01:51 Respiratory Effort Non-Labored 12/20/19 00:00 Respiratory Depth Normal 12/20/19 09:00 Respiratory Pattern Normal 12/20/19 09:00 Blood Pressure 125/79 12/20/19 01:51 Blood Pressure Mean 79 12/19/19 10:13 Blood Pressure Position Supine 12/19/19 10:13 Pulse Oximetry 96 12/20/19 01:51 Oxygen Delivery Method Room Air 12/20/19 01:51 Oxygen Flow Rate 0 12/20/19 01:51 Pain Level 0 12/20/19 01:51 Comment 12/19/19 12:50 Intake & Output 12/19/19 12/19/19 12/20/19 11:59 23:59 11:59 Intake Total 720 / 720 500 / 500 Balance 720 / 720 500 / 500 Weight 68.039 kg Intake: Oral 720 / 720 500 / 500 Other: Comment Voided using toilet. Voiding Methods Toilet Toilet Data Completed and Pending Labs on day of discharge: Labs from last 24 hours 12/19/19 11:54 COVID-19 PCR Negative Nasopharyn COVID-19 PCR Not Applicable Ref Test Perform Site [facility] Medical History Anxiety (Chronic) Bipolar disorder (Chronic) COPD (chronic obstructive pulmonary disease) (Chronic) GERD (gastroesophageal reflux disease) (Chronic) Hypothyroid (Chronic) Traumatic pneumothorax (Inactive) 2017, chest tube x2 Surgical History History of ankle surgery (Inactive) S/P thoracostomy tube placement (Inactive) Social History Smoking/Tobacco Use Status: Current every day Tobacco Type: cigarettes Alcohol Intake: never Drug use: Daily Substance use type: marijuana Do you feel safe at home: Yes Do you feel safe in your relationship?: Yes
[2019-12-20 10:17] VITALS: BP 127/89; PULSE 103; RESP 18; TEMP 37; O2SAT 96
--- NOTE | 2019-12-20 10:46 | CMDISCH_ITS ---
- If Service Date Differs Date of service: 12/20/19 Time of Service: 10:47 LACE Index Scoring Tool - Questions: Length of Stay (in days): 3 Acuity (Admit via E.D.?): Yes E.D. Visits: 5 - Answers: Total Score: 10 Risk of Readmission: High Risk Care Management Discharge Reason for Hospitalization: Psychiatric, involuntary admission Discharge Plan: Asim is being transfered to [place]. CM contacted facility and arranged admission, CM contacted [facility], and [facility] office and arranged transportation. CM updated pipe supervisor and provided report number to [facility]. CM updated the patient he is agreeable to transfer. Patient/Family Education Needs: Discharge to psychiatric facility and follow up plan of care related to Involuntary admission and transporation Services Needed at Discharge: Psychiatric Facility, Transportation - MH Services (Omit if N/A) Current MH Services: Psychiatric Inp
== END 2019-12-20 11:20 | disposition short-term general hospital (02) ==
LOC: ER 12-19 12:34 → MS 12-19 12:43
PROVIDERS: Student in an Organized Health Care Education/Training Program; Admitting Provider Internal Medicine; Emergency Provider Physician Assistant; PCP Nurse Practitioner; Visit Provider Internal Medicine
DX: R45.851 Suicidal ideations (principal); F31.30 Bipolar disorder, current episode depressed, mild or moderate severity, unspecified; F41.9 Anxiety disorder, unspecified; J44.9 Chronic obstructive pulmonary disease, unspecified; K21.9 Gastro-esophageal reflux disease without esophagitis; E03.9 Hypothyroidism, unspecified; Z11.59 Encounter for screening for other viral diseases; F17.210 Nicotine dependence, cigarettes, uncomplicated; Z91.5 Personal history of self-harm
CPT/HCPCS: 80053; 80307; 83690; 99217; 99223; 99285; U0003; 80320; 80329; 84439; 84443; 85025; 99220; 99284; G0378

== ENCOUNTER 2020-03-31 10:35 | Emergency (ER) | payer MEDICAID, SELFPAY ==
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
[2020-03-31 10:38] VITALS: BP 134/117; PULSE 114; RESP 17; TEMP 36.5; O2SAT 95
[2020-03-31 11:11] VITALS: BP 142/97; PULSE 103
--- NOTE | 2020-03-31 12:01 | NUR.NOTE ---
pt on zoom call with mental health:
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
== END 2020-03-31 12:43 | disposition home or self-care (01) ==
PROVIDERS: Emergency Provider Physician Assistant; PCP Nurse Practitioner
DX: F41.8 Other specified anxiety disorders (principal); F31.9 Bipolar disorder, unspecified; Z91.128 Patient's intentional underdosing of medication regimen for other reason; J44.9 Chronic obstructive pulmonary disease, unspecified; F17.210 Nicotine dependence, cigarettes, uncomplicated
CPT/HCPCS: 99283

== ENCOUNTER 2020-03-31 18:53 | Emergency (ER) | payer MEDICAID, SELFPAY ==
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
--- NOTE | 2020-03-31 19:08 | CMSP_ITS ---
- If Service Date Differs Date of service: 03/31/20 Time of Service: 19:08 Care Management Safety Plan Chief Complaint: Asim is a 54 year old male who presents to the emergency department via ambulance for homicidal ideation and self mutilation behaviors. Asim has an extensive psychiatric history with multiple hospitalizations for SI/HI. He receives services through [facility]. CM will respond to ED to assess patient after patient has been medically cleared and assessed by screener. If screener deems patient meets criteria for psychiatric stabilization CM will facilitate interdepartmental huddle with [facility] screener for safety planning considerations and meet with patient to review [facility] policy and safety plan, establish individual wishes for treatment and maintain patient rights. In the interim; please note safety plan below to guide patient care while awaiting further assessment in the ED. SAFETY PLAN: 1. Will remain on suicide precautions and in paper clothes. 2. Will remain in room under direct supervision of one-on-one staff at all times provided by CPSO, DONTAE, CHLOROBUTADIENE SCRUBBER OPERATOR associate professor of education. 3. May have paper cups, plates, finger foods as well as a cardboard spoon with which to eat meals. 4. Follow [facility] Management of the Admitted Behavioral Health Patient policy. 5. Comfort bath system only. 6. No personal belongings 7. Visitors: No visitors at this time. 8. Activities: None at this time. 8. No telephone privileges at this time. 9. Due to VOLUNTARY status, if patient wishes to leave [facility], the [facility] studio set up worker must be contacted to evaluate patient prior to patient exiting the building. If deemed appropriate for inpatient psychiatric care, safety plan will be established with patient, and care team, to adhere to patient goals, identify restrictions based on behavioral status, address nutrition, and determine al lowed personal belongings, tools for hygiene and personal care. As well plan will determine level of activity including ambulation, level of supervision, visitors, and determine privileges based on level of acuity, behaviors and level of engagement by patient. DISPOSITION: Asim is evaluated by Elif [facility] Crisis Screener and by Tamie [facility]. He is able to enter into a safety plan and is being discharged home. He will follow up with his [facility] medical case manager in the morning.
[2020-03-31 19:14] VITALS: BP 156/88; PULSE 97; RESP 20; TEMP 37.2; O2SAT 98
--- NOTE | 2020-03-31 20:07 | NUR.NOTE ---
pt is very talkative , he is telling organized stories about his former dogs and his foster family in [facility]. he told me that today he tried to eat but vomited it right back up Nursing Note:
--- NOTE | 2020-03-31 20:29 | PDOC.MHCN ---
Date of service: 03/31/20 Time of Service: 19:29 Mental Health Crisis Note Presenting Issue How did you arrive at the ED and why did you come: Client arrived at the ED tonight after [facility] was called and client reported self mutilation and extreme anxiety attack that caused him to be on the floor for 10 minutes. Precipitating Factors Client reports no SI. Client reports HI. Client reports that there is one person in his cross hairs and he will take care of him on his time. Client reports seeing shadows. Disposition BEHAVIOR: Client is calm and cooperative when speaking with this fiction and nonfiction prose writer. EYE CONTACT: Client made little eye contact throughout the assessment. MOOD: Client presents as depressed and agitated. AFFECT: Clients affect is normal. APPETITE: Client reports not eating for 4 days. Client reports that he wants to eat, but every time he does, he throws up. SLEEP(trouble falling/staying asleep: Client reports that he has not slept in 4 days. Plan This fiction and nonfiction prose writer spoke to ED doctor and it was decided that hospitalization would be in clients best interest given his homicidal statements. Client is unwilling to go voluntarily, [facility] will be called for an EE. Signature Clinician's Name/Title: Elif Self [facility] Emergency Clinician
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
== END 2020-03-31 21:00 | disposition home or self-care (01) ==
PROVIDERS: Emergency Provider Physician Assistant; PCP Nurse Practitioner
DX: F41.8 Other specified anxiety disorders (principal); T22.011A Burn of unspecified degree of right forearm, initial encounter; T22.012A Burn of unspecified degree of left forearm, initial encounter; X08.8XXA Exposure to other specified smoke, fire and flames, initial encounter; X76.XXXA Intentional self-harm by smoke, fire and flames, initial encounter
CPT/HCPCS: 99285; 99283

== ENCOUNTER 2020-04-03 22:41 | Inpatient (IN) | payer MEDICAID, SELFPAY ==
--- NOTE | 2020-04-03 22:57 | NUR.NOTE ---
Nursing Note:Went to lobby to get patient attempted to ask patient COVID questions. Patient states the answer is no to all those questions.I let patient know we are required to screen everyone. Patient states he can not urinate right now. I then took patient to room 9 and asked him to change into paper scrubs. Patient refused and said we could not draw blood either. I let patient know we have policies we have to follow. States he does not like our policies. I asked the Truck Hop that brought him here to talk with him and ask him to be cooperative. He spoke with patient and patient still very uncooperative. Mental Health then arrived and is currently talking with patient. Patient remains uncooperative. Patient can be overheard threatening to harm staff if we touch him. Discussed POC with Dr. Fierro. If patient continues to be uncooperative we will chemically and physically restrain patient . Security updated.
--- NOTE | 2020-04-03 23:21 | NUR.NOTE ---
Addendum entered by Roya Ascencio RN 04/03/20 23:28: Patient was offered PO medication to help him relax and he refused Original Note: Nursing Note:Patient continues to be uncooperative. Mental Health worker will call her Foreign Food Specialty Cook to discuss making patient involuntary. Foreign Food Specialty Cook will call and do a Zoom interview with patient.
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
--- NOTE | 2020-04-03 23:31 | NUR.NOTE ---
Nursing Note:Have not been able to complete triage documentation at this point due to patient being uncooperative.
[2020-04-04] VITALS (8 sets, daily range): BP systolic 121–136; BP diastolic 75–88; PULSE 91–122; RESP 18–20; TEMP 36–37.3; O2SAT 94–95
--- NOTE | 2020-04-04 | DI.RAD_ITS ---
EXAM: XR PORTABLE CHEST AP CLINICAL HISTORY: leucocytosis TECHNIQUE: COMPARISON: CR XR CHEST 2V PA LATERAL from 04/01/2019 FINDINGS: Portable AP chest at 0900 hours. The heart is not enlarged. There are prominent pulmonary interstit ial markings bilaterally, probably unchanged from prior study of April 01. No evidence of acute consolidation. No gross pleural effusion on this frontal film. IMPRESSION: No evidence of acute change. RADIATION DOSE DELIVERED: Total DLP
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
[2020-04-04] MEDS: Ketamine 500 MG/10 ML VIAL 300 MG IM (00:32)
--- NOTE | 2020-04-04 00:44 | NUR.NOTE ---
Addendum entered by Roya Ascencio RN 04/04/20 01:21: to swing at staff. Original Note: Nursing Note: 0005 Patient in fighting stance, facing staff and pacing back and forth. Threatening to harm any staff that come near him. Will call [facility]. [place]. Colt Gonsalez was called. State Police en route. 0015 [place] x 2 here.Remains uncooperative with medical work up and continues to threaten staff, stated multiple times he does not care if he dies. States he want's to and he does not care how. [place] trying to talk with patient . Patient remains aggressive and threatening to staff. 0025 No change, remains aggressive and un cooperative. States he does not want anyone to come near him..Dr. Fierro attempting to talk with patient. 0038 patient was placed on the stretcher in room 5 by the 2 [facility], [facility] and [facility]. Ketamine was given IM and placed in 4 point restraints.0050 Attempt to put patient on the monitor and get VS. Patient attempt
[2020-04-04 01:13] LABS: Abs Immature Grans 0.07 10^3/uL (0.0-0.06); Absolute Basophil Count 0.04 10^3/uL (0.0-0.2); Absolute Eosinophil Count 0.04 10^3/uL (0.0-0.7); Absolute Lymphocyte Count 1.89 10^3/uL (1.2-3.4); Absolute Monocyte Count 0.64 10^3/uL (0.1-0.8); Absolute Neutrophil Count 11.87 10^3/uL (1.2-6.7); Basophils % 0.3; Eosinophils % 0.3; HCT 41.4 % (40.0-50.0); HGB 13.6 g/dL (13.5-17.5); Immature Grans % 0.5; MCH 27.4 pg (27.0-33.0); MCHC 32.9 % (32.0-36.0); MCV 83.5 fL (80-95); MPV 10.4 fL (8.0-11.0); Monocytes % 4.4; Neutrophils % 81.5; Nucleated RBC 0 %; Platelet Count 182 10^3/uL (130-400); RBC 4.96 10^6/uL (4.36-5.78); RDW 12.8 % (11.8-14.1); RDW-SD 38.5 fL; WBC 14.56 10^3/uL (4.4-10.8)
[2020-04-04] MEDS: LORazepam 2 MG/ML VIAL IM (01:15)
[2020-04-04 01:35] LABS: Salicylate 2.8 mg/dL (2.8-20.0)
--- NOTE | 2020-04-04 01:43 | HPE_ITS ---
Date of service: 04/04/20 Time of Service: 01:43 Assessment and Plan Assessment and plan (1) Suicidal ideations: Start date: 04/04/20 Status: Acute Assessment and plan: This is a 54-year-old gentleman who appears be noncompliant with medical therapy and psychiatric therapy who appears to be in acute state of agitated depression with suicidal ideation and homicidal ideation feeling victimized. He is angry and physically threatening to staff requiring four-point restraint with Haldol 5 mg IM twice given with second dose allow patient to rest and sleep but still being alert. He is noncompliant and does not have IV access so this was ordered in the ED. He is not allowed cardiac monitoring. He is in ICU for closer observation with a sitter and will remain in four-point restraints until mental health can evaluate and a better plan, hopefully with patient cooperative with plan in place. Patient is a full code. (2) Threatening behavior: Start date: 04/04/20 Status: Acute Assessment and plan: Patient is agitated and physical threatening and therefore will remain in four-point restraints with Haldol IM to be. Reassessed for necessity every 2 hours. (3) Bipolar disorder: Status: Chronic Assessment and plan: Chronic mood disorder now with agitation and homicidal and suicidal ideation with a plan that the patient does not have the tools to carry through presently. Qualifiers: Active/Remission status: currently active Current bipolar episode type: hypomanic Qualified Code(s): F31.0 - Bipolar disorder, current episode hypomanic History of Present Illness History of Present Illness Chief Complaint: Suicidal thoughts and intention to harm self Narrative: This is a 54-year-old male patient who was brought to the ED involuntarily and after assessment involuntarily admitted for psychiatric inpatient placement for continued and active suicidal ideation with homicidal ideation toward specific people claiming that he would kill them then kill himself using a gun. The patient does not own a gun. 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 Patient is well-known to the emergency department and psychiatry with frequent visits to the ED recently and plan for outpatient care which is failed. Patient was picked up in the field by the police. At the time I saw the patient he had received his second dose of Haldol because of agitation and it was just before 5 AM with the second order for four-point restraints given. Patient continued to be agitated and fighting the restraints prior to the second dose of Haldol with threats to staff. Review of Systems Narrative: 13 point review of systems otherwise unrevealing or stable. Patient appears to have chronic mood disorder and anger issues with victimization e xpressed to the attending nurse. [facility] Medical History (Updated 04/04/20 @ 03:32 by Saravanan Ricardo) Anxiety Bipolar disorder COPD (chronic obstructive pulmonary disease) GERD (gastroesophageal reflux disease) Hypothyroid Traumatic pneumothorax 2016, chest tube x2 Surgical History History of ankle surgery S/P thoracostomy tube placement Social History Smoking/Tobacco Use Status: Current every day Tobacco Type: cigarettes Smoking risk assessment performed?: Yes Alcohol Intake: never Drug use: Daily Substance use type: marijuana Do you feel safe at home: Yes Do you feel safe in your relationship?: Yes Meds Home Medications and Allergies Home Medications Medication Instructions Recorded Confirmed Type omeprazole 20 mg PO QAM 10/16/13 03/31/20 History magnesium oxide 400 mg PO QAM 10/20/19 03/31/20 History hydroxyzine pamoate [Vistaril] 50 mg PO TID PRN 12/19/19 03/31/20 History levothyroxine 75 mcg PO DAILY 12/19/19 03/31/20 History melatonin 9 mg PO HS 12/19/19 03/31/20 History olanzapine 5 mg PO BID 12/19/19 03/31/20 History pravastatin 20 mg PO HS 12/19/19 03/31/20 History trazodone 50 mg PO HS 12/19/19 03/31/20 History Allergies Allergy/AdvReac Type Severity Reaction Status Date / Time Sulfa (Sulfonamide Allergy Severe Swelling/Ed Unverified 12/18/19 22:14 Antibiotics) jostin Exam Narrative Exam Narrative: General: Patient appears older than stated age, unkempt with long hair. He is agitated but alert and oriented to person place at least. Affect is flat with depressed mood and poor eye contact. HEENT: Normocephalic, atraumatic face with coarsened features, eyes with pupils equal and react light symmetrically, extraocular movement intact and sclera anicteric. Oropharynx not examined with patient the closing mouth and apparent edentulous. External ears and nose normal. Neck: Supple without JVD. Lungs: Fair aeration, clear to auscultation. Heart: Regular rate and rhythm with no murmurs or gallops appreciated. Abdomen: Mildly obese contour, soft to palpation with bowel sounds positive all quadrants. No palpable hepatosplenomegaly. Genitalia/rectal: Exam deferred. Extremities: Without clubbing, cyanosis or edema with peripheral pulses intact and good capillary refill. Joints have fair range of motion. Skin: Pale, warm and dry. Neuro: Cranial nerves II through XII grossly intact, no focalizing motor deficits. Psych: Depressed mood and flattened affect, agitated easily with patient expressing victimization and threatening to shoot a set number of people and then shoot himself. As stated he does not own a gun by history. No delusions or abnormal thought processes. Remote and recent memory appear to be grossly intact. Results Imaging Additional studies: TSH was 4.33 possibly indicating noncompliance with medical therapy on replacement, WBC was 14.56 which chronically is slightly elevated, glucose random was 162 which has been problematic in the past, calcium 8.4 which is slightly low but normal albumin may be nutritional but patient BUN of a 23 and anion gap 13.4 with creatinine 1.13 slightly higher than his baseline. Labs Result diagrams: 04/03/20 01:05 04/03/20 01:05 Labs: Laboratory Results - last 24 hr 04/03/20 04/03/20 01:05 01:05 WBC 14.56 H RBC 4.96 Hgb 13.6 Hct 41.4 MCV 83.5 MCH 27.4 MCHC 32.9 RDW 12.8 Plt Count 182 MPV 10.4 Immature Gran % 0.5 Neutrophils % 81.5 Lymphocytes % 13.0 Monocytes % 4.4 Eosinophils % 0.3 Basophils % 0.3 Nucleated RBC % 0 Absolute Neutrophils 11.87 H Absolute Lymphocytes 1.89 Absolute Monocytes 0.64 Absolute Eosinophils 0.04 Absolute Basophils 0.04 Salicylates 2.8 Last Vital Signs Temp 37.3 C 04/04/20 01:11 Pulse 122 H 04/04/20 01:11 Resp 18 04/04/20 01:11 Pulse Ox 95 04/04/20 01:11 COVID-19 Screening Have you, or household traveled for leisure in last 14 days?: No Had IN PERSON contact w/suspected or confirmed C-19 person: No
[2020-04-04 01:47] LABS: ALT 34 U/L (16-63); AST 27 U/L (15-37); Albumin 3.6 g/dL (3.4-5.0); Alkaline Phosphatase 114 U/L (46-116); Anion Gap 13.4 mmol/L (3-11); BUN 23 mg/dL (7-18); Bilirubin, Total 0.2 mg/dL (0.2-1.0); CO2 21.6 mmol/L (21.0-32.0); CREATININE 1.13 mg/dL (0.70-1.30); Calcium 8.4 mg/dL (8.5-10.1); Chloride 101 mmol/L (98-107); Glucose 162 mg/dL (74-106); Potassium 3.6 mmol/L (3.5-5.1); Sodium 136 mmol/L (136-145); TSH (W/Ref FT4) 4.33 uIU/mL (0.36-3.74); Total Protein 7.3 g/dL (6.4-8.2)
[2020-04-04 01:52] LABS: Acetaminophen < 2 ug/mL (10-30); ETHANOL BLOOD < 3.0 mg/dL (<3)
[2020-04-04] MEDS: Haloperidol 5 MG/ML VIAL IM ×2 (02:01→04:10)
[2020-04-04] MEDS: diphenhydrAMINE 50 MG/ML VIAL 25 MG IM (02:01)
--- NOTE | 2020-04-04 02:10 | NUR.NOTE ---
Nursing Note: Patient vomited corn emesis.
[2020-04-04 02:17] LABS: FREE T4 1.04 ng/dL (0.76-1.46)
[2020-04-04] MEDS: Levothyroxine 75 MCG TAB PO (06:48)
--- NOTE | 2020-04-04 06:49 | NUR.NOTE ---
0630-pt wanted to try and void in urinal.wants to stretch and be comfortable for a few minutes restraints removed for now. 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
[2020-04-04 08:07] LABS: Abs Immature Grans 0.05 10^3/uL (0.0-0.06); Basophils % 0.3; Eosinophils % 0.5; HCT 42.9 % (40.0-50.0); HGB 14.3 g/dL (13.5-17.5); Immature Grans % 0.3; Lymphocytes % 15.9; MCH 27.8 pg (27.0-33.0); MCHC 33.3 % (32.0-36.0); MCV 83.3 fL (80-95); MPV 10.2 fL (8.0-11.0); Monocytes % 4.7; Neutrophils % 78.3; Nucleated RBC 0 %; Platelet Count 174 10^3/uL (130-400); RBC 5.15 10^6/uL (4.36-5.78); RDW 12.9 % (11.8-14.1); RDW-SD 39.2 fL; WBC 14.82 10^3/uL (4.4-10.8)
--- NOTE | 2020-04-04 08:13 | W.PM.PROGNOT ---
Date of Service Date of service: 04/04/20 Time of Service: 11:59 Subjective Subjective Interval history since last seen: Out of restraints since 6:45 am. Sleeping/lying still with eyes closed. When I came to see him, he was asleep. Permitted blood work. Has not yet urinated for a UA. CXR negative. No obvious infection. No acute events. Refused to be in paper clothes - still in his street clothes. Had his 2nd certification with the state psychiatrist today - remains involuntary. Awaiting COVID results. Objective Last Vital Signs Temp 36.7 C 04/04/20 05:00 Pulse 107 H 04/04/20 05:00 Resp 18 04/04/20 05:00 BP 130/78 04/04/20 05:00 Pulse Ox 94 04/04/20 02:57 Laboratory Results - last 24 hr 04/03/20 04/03/20 04/03/20 01:05 01:05 01:05 WBC 14.56 H RBC 4.96 Hgb 13.6 Hct 41.4 MCV 83.5 MCH 27.4 MCHC 32.9 RDW 12.8 Plt Count 182 MPV 10.4 Immature Gran % 0.5 Neutrophils % 81.5 Lymphocytes % 13.0 Monocytes % 4.4 Eosinophils % 0.3 Basophils % 0.3 Nucleated RBC % 0 Absolute Neutrophils 11.87 H Absolute Lymphocytes 1.89 Absolute Monocytes 0.64 Absolute Eosinophils 0.04 Absolute Basophils 0.04 Sodium 136 Potassium 3.6 Chloride 101 Carbon Dioxide 21.6 Anion Gap 13.4 H BUN 23 H Creatinine 1.13 Estimated GFR/1.73 m2 >= 60.00 Glucose 162 H Calcium 8.4 L Total Bilirubin 0.2 AST 27 ALT 34 Alkaline Phosphatase 114 Total Protein 7.3 Albumin 3.6 TSH 4.33 H Free T4 1.04 Salicylates 2.8 Acetaminophen < 2 Ethyl Alcohol < 3.0
[2020-04-04 08:27] LABS: Absolute Basophil Count 0.04 10^3/uL (0.0-0.2); Absolute Eosinophil Count 0.07 10^3/uL (0.0-0.7); Absolute Lymphocyte Count 2.36 10^3/uL (1.2-3.4)
[2020-04-04 08:44] LABS: ALT 36 U/L (16-63); AST 44 U/L (15-37); Albumin 3.5 g/dL (3.4-5.0); Alkaline Phosphatase 112 U/L (46-116); Anion Gap 5.8 mmol/L (3-11); BUN 21 mg/dL (7-18); Bilirubin, Total 0.4 mg/dL (0.2-1.0); CO2 26.2 mmol/L (21.0-32.0); Calcium 8.4 mg/dL (8.5-10.1); Chloride 106 mmol/L (98-107); Glucose 120 mg/dL (74-106); Magnesium 2.2 mg/dL (1.8-2.4); Potassium 4.1 mmol/L (3.5-5.1); Sodium 138 mmol/L (136-145); Total Protein 7.2 g/dL (6.4-8.2)
[2020-04-04 08:53] LABS: Bilirubin, Direct 0.11 mg/dL (0.00-0.20)
--- NOTE | 2020-04-04 09:56 | DI.VRAD_ITS ---
PROCEDURE INFORMATION: Exam: XR Chest, 1 View Exam date and time: 04/04/2020 9:37 AM Age: 54 years old Clinical indication: Other: Leucocytosis TECHNIQUE: Imaging protocol: XR of the chest Views: 1 view. COMPARISON: CR XR CHEST 2V PA LATERAL 04/01/2019 2:32 PM FINDINGS: Lungs: Mild bilateral interstitial opacities. No consolidation. Pleural space: Unremarkable. No pleural effusion. No pneumothorax. Heart/Mediastinum: Unremarkable. No cardiomegaly. Bones/joints: Unremarkable. IMPRESSION: No focal airspace consolidation. There are mild bilateral interstitial opacities. Dictated and Authenticated by: Chung Luque MD. Ordering:ALIE Peterson MD
--- NOTE | 2020-04-04 10:21 | PDOC.CMSAFE ---
- If Service Date Differs Date of service: 04/04/20 Time of Service: 10:21 Care Management Safety Plan Safety Plan for Asim established after CM met with the patient to attempt to identify his needs, huddled with primary care team, mental health and CPSO individually. Asim states he is not voluntary for hospitalization and is not sure what he needs for stabilization. He reports to this CM that he does not want to hurt anyone however he remains suicidal and wants to . CM notified Asim of his rights as an involuntary patient he states he understands, CM provided written copy of rights to patient. Second certification scheduled for [address] Chow at [facility]. INVOLUNTARY FOR INPATIENT PSYCHIATRIC STABILIZATION. Safety plan has been established to meet the needs of the patient, and consideration of the care team, to adhere to patient goals, identify restrictions based on behavioral status, address nutrition, and determine allowed personal belongings, tools for hygiene and personal care. Determine level of activity including ambulation, level of supervision, visitors, and determine privileges based on behaviors and level of engagement by pt. SAFETY PLAN: 1. Will remain on SI/HI precautions. In Paper Clothes (currently in regular clothing, CM instructed patient that he will need to change into paper scrubs) 2. Will remain in room under direct supervision of one-on-one staff at all times provided by CPSO; DONTAE, FILTER CHANGING TECHNICIAN director mobile media solutions. 3. May have paper cups, plates, finger foods as well as a metal spoon for meals to be accounted for upon meal completion 4. Follow [facility] Management of the Admitted Behavioral Health Patient policy. 5. Comfort wipes shower at the discretion of primary care team with appropriate supervision 6. No personal belongings 7. Visitors: No visitors per [facility] policy related to COVID policy 8. Activities: Television, remote, coloring, paper, soft tip markers, reading material 9. Bathroom privileges with supervision 10. Phone: At the discretion of primary care team 11. Due to INVOLUNTARY status, if patient wishes to leave [facility], the [facility] social worker school must be contacted to re-evaluate patient prior to patient exiting the building. Patient is currently involuntarily at [facility] and seeking inpatient admission when a bed becomes available. [facility] Frontline Senior Cytogenetic Technologist will continue seeking placement. Please contact the Coat Check Attendant C S S Representative ([phone]) and [facility] Senior Cytogenetic Technologist ([phone]) for any needed changes in the Safety Plan. Safety plan has been provided to interdepartmental care team.
--- NOTE | 2020-04-04 10:34 | CMPROGNOTE_ITS ---
- If Service Date Differs Date of service: 04/04/20 Time of Service: 10:35 Care Management Progress Note S/O: Asim admits that he is suicidal he states he does not want to harm others right now. Asim is well known to this primary care nurse from past admissions. he has a history of depression, bipolar, anxiety, and COPD. He is a [employer] client, they assist him in managing his medications and responsible for wrap around services in the community. Asim has had 7 visits in the past year related to SI. He has had several admission to [facility] as well as other inpatient psychiatric facilities. CM reviewed his care of the past week with mental health [employer] and [facility], per report he ws threatening to gas himself at home with ammonia, and bleach. [facility] has had frequent contact with Asim he was unable to contract for safety per report and he was brought to the ED for further management for SI and HI. Asim is quiet when CM enters the room, he does not make eye contact and keeps his blankets up around his head. He does answer some direct questions he clearly states he does not want to be admitted into a psychiatric facility, he is unable to identify what would help him be more successful. CM did review Asim's rights with him and explained second certification which will occur at 1100. Plan will be to move him to the transition bed once he is medically cleared still waiting on the UA results. CM reviewed plan with Asim, primary care team and mental health all in a greement. Referral has been faxed per [employer] to facilities, Asim's COVID and UA are pending, CM will fax results to TRUCK TRAILER FIN[employer] INSPECT[employer] to include in referral packet once the results are in. Care bed fax attention Denise Finesse. [phone] A:Asim is a 54 year old patient with a history of SI and HI who has been admitted with SI awaiting placement at psychiatric facility. P: Pending medical clearance Asim will be discharged to inpatient facility for SI. Transportation via prosecuting attorney coordinated by CM once bed identified and he is ready for discharge.
--- NOTE | 2020-04-04 11:22 | NUR.NOTE ---
Pt offered am meal, fluids po, an opportunity to wash up, and paper clothes to change in to. Adamantly refused all options offered, refused to change into paper clothes. Did take am meds with a sip of water.
[2020-04-04] MEDS: Omeprazole 20 MG CAPCR PO (11:26)
[2020-04-04] MEDS: OLANZapine 5 MG TAB PO ×2 (11:26→21:25)
--- NOTE | 2020-04-04 13:24 | PHACLINREV_ITS ---
Pharmacy Admission Review - Admission Clinical Review (Last Reviewed 04/04/20 @ 01:44 by Saravanan Ricardo) Suicidal ideations (Acute) Uncooperative behavior (Acute) Threatening behavior (Acute) Sulfa (Sulfonamide Antibiotics) Allergy (Severe, Unverified 12/18/19 22:14) Swelling/Edema - Renal Dosing Renal Dosing: BUN 21 mg/dL (7-18) H 04/04/20 08:00 Creatinine 0.90 mg/dL (0.70-1.30) 04/04/20 08:00 Medications needing adjustments: Reviewed (No height/weight entered, nursing was going to try to get this information. SCr okay, eGFR over 60 mL/min. Current meds okay.) - Anticoagulation Anticoagulation: Hgb 14.3 g/dL (13.5-17.5) 04/04/20 08:00 Hct 42.9 % (40.0-50.0) 04/04/20 08:00 Plt Count 174 10^3/uL (130-400) 04/04/20 08:00 Creatinine 0.90 mg/dL (0.70-1.30) 04/04/20 08:00 DVT Prohphylaxis: N/A Therapeutic Anticoagulation: N/A - Opiate Usage Evaluate Pain Scale/Pains Meds: N/A - Relevant Labs Sodium 138 mmol/L (136-145) 04/04/20 08:00 Potassium 4.1 mmol/L (3.5-5.1) 04/04/20 08:00 Chloride 106 mmol/L (98-107) 04/04/20 08:00 Magnesium 2.2 mg/dL (1.8-2.4) 04/04/20 08:00 Electrolytes, C-Reactive P, ESR: Reviewed - DM Control DM Control: Glucose 120 mg/dL (74-106) H 04/04/20 08:00 Insulin Dosing: Reviewed (elevated so far this admission/chronically as far back as 2014. No A1c on record.) - Heart Failure/AL EF%, FIOR's, B-Blockers, Diuretics: N/A - BP Control BP Control: Blood Pressure [Left Calf] 130/78 Blood Pressure 121/75 Blood Pressure 130/78 Blood Pressure 130/78 Blood Pressure 136/88 If elevated: N/A - Qtc Review If Elevated: N/A - IV to PO Switch IV Medications: Reviewed - Home Meds Home Med List reviewed: Reviewed (Doesn't look like pt's home med list as been confirmed. There are some med differences between external med history and the home med list in [facility]. Will look into this more.) - Current meds Current Medication Order Review: Intervened (fixed dosage from of acteaminophen (changed from 325 mg tab to 500 mg tab as dose is 1000 mg), adjusted the time of omeprazole to 730 per medical records assistant timing policy.) - Comments Comments/Follow Ups: Watch VS, labs, and for med changes.
[2020-04-04] MEDS: Melatonin 3 MG TAB 9 MG PO (21:25)
[2020-04-04] MEDS: traZODone 50 MG TAB PO (21:25)
[2020-04-05] MEDS: Levothyroxine 75 MCG TAB PO (06:06)
[2020-04-05 08:29] LABS: COVID-19 RT-PCR UVMMC Result Negative (Negative)
[2020-04-05] MEDS: OLANZapine 5 MG TAB PO ×2 (08:30→21:01)
[2020-04-05] MEDS: Omeprazole 20 MG CAPCR PO (08:30)
--- NOTE | 2020-04-05 08:43 | PDOC.MHCN_ITS ---
Date of service: 04/03/20 Time of Service: 08:44 Mental Health Crisis Note Presenting Issue How did you arrive at the ED and why did you come: Asim arrived to the ER via LE with [employer] ironer hand voluntarily however , refusing service and treatment. Precipitating Factors Asim is endorsing SI and had been endorsing HI just a couple of days ago. A duty to warn was done on the HI to LE. He is not showing any signs of delusions. Disposition BEHAVIOR: Asim is refusing treatment and is behaving oppositional. He is angry that he feels he did not get a warm welcome when he arrived but felt that a particular nurse was being disrespectful to him. He warns that the only way the ER will get his cell phone off of him, which he calls his life line, is through his cold hands. EYE CONTACT: Eye contact is fair. MOOD: Asim is presenting as angry, oppositional and non compliant. AFFECT: Asim has a flat and angry affect. APPETITE: Asim reports his appetite is poor. SLEEP(trouble falling/staying asleep: Asim reported that his sleep has been poor. Plan An EE was completed and Asim will be held pending placement. [employer] will do all follow up to find placement. Signature Clinician's Name/Title: Tamie Mccord MS, [facility] Emergency Services Clinician
[2020-04-05 08:49] LABS: Bilirubin Negative (Negative); Blood Negative (Negative); Clarity Clear (Clear); Glucose Negative (Negative); Ketones Trace mg/dL (Negative); Leukocyte Esterase Negative (Negative); Nitrite Negative (Negative); Specific Gravity 1.025 (1.005-1.025); Urobilinogen 0.2 EU/dL (Up TO 0.2)
[2020-04-05 09:01] LABS: *AMPHETAMINES SCREEN URINE Negative (Negative); *BARBITURATES SCREEN URINE Negative (Negative); *BENZODIAZEPINES SCREEN URINE Negative (Negative); Cannabinoids THC POSITIVE (Negative); Cocaine Screen,Urine Negative (Negative); METHADONE URINE SCREEN Negative (Negative); OPIATES URINE SCREEN Negative (Negative); Tricyclic Antidepressants Negative (Negative)
[2020-04-05] MEDS: hydrOXYzine HCL 25 MG TAB PO ×2 (10:50→21:02)
--- NOTE | 2020-04-05 10:53 | PDOC.MHCN_ITS ---
Date of service: 04/05/20 Time of Service: 10:53 Mental Health Crisis Note Presenting Issue How did you arrive at the ED and why did you come: Patient arrived at the ER on Wednesday 04/04 with S/I and a plan. Patient also reported H/I towards a community individual named Johnny Turner. Patient was placed on EE status a Second certification was approved and he awaits placement. Precipitating Factors The patient is stating today that he no longer has S/I and would not do anything to harm self or others if he could have daily checks multiple times a day. However he admits that over the past few weeks he has been intentionally avoiding contact with [facility] Staff and ignoring [facility] attempts to contact him. The patient could not give assurance that he could remain safe and not act on his impulses. Disposition BEHAVIOR: Patient reports cooperation with Med. Staff and medication compliance. EYE CONTACT: Patient made appropriate eye contact. MOOD: Unremarkable AFFECT: Unremarkable APPETITE: Patient reports appetite is normal. SLEEP(trouble falling/staying asleep: Patient reports no sleep problems or d ifficulties. Plan Continue on EE status and find a psychiatric placement as the patient is still a person in need of treatment.
--- NOTE | 2020-04-05 11:53 | CMPROGNOTE_ITS ---
- If Service Date Differs Date of service: 04/05/20 Time of Service: 11:53 Care Management Progress Note S/O: CM met with Asim in the room he is alert and engaged with CM during assessment. Asim has a copy of his rights as an involuntary patient and understands that psychiatric facility is being sought on his behalf. CM did review placement progress with [facility] Jagdish Velázquez and plan moving forward. Asim remains involuntary at this time, he is eating small amounts of good and requested a coffee this morning. He is not interested in any activities at this time. Asim's COVID is negative he is medically clear for placement. CM contacted [facility] pharmacy on site they provide all of his medications and [facility] delivers. [facility] is also Asim's rep payee for financial needs in the community. Asim has his wrap around services through [facility] as well. Arin is reviewing referral CM has faxed updated information to [facility] [place]. Primary RN and CPSO report no behaviors from Asim during shift. A: Asim is a 54 year old patient admitted with SI and HI with a history of bipolar and has services through [facility] at [facility]. P: Asim remains involuntary for placement at this time, Arin is reviewing referral. [facility] met with patient today via tablet. Asim will transport via commercial loan analyst once bed available coordinated by [facility].
--- NOTE | 2020-04-05 11:53 | PDOC.CMPRO ---
- If Service Date Differs Date of service: 04/05/20 Time of Service: 11:53 Care Management Progress Note S/O: CM met with Asim in the room he is alert and engaged with CM during assessment. Asim has a copy of his rights as an involuntary patient and understands that psychiatric facility is being sought on his behalf. CM did review placement progress with [facility] Jagdish Velázquez and plan moving forward. Asim remains involuntary at this time, he is eating small amounts of good and requested a coffee this morning. He is not interested in any activities at this time. Asim's COVID is negative he is medically clear for placement. CM contacted [facility] pharmacy on site they provide all of his medications and [facility] delivers. [facility] is also Asim's rep payee for financial needs in the community. Asim has his wrap around services through [facility] as well. [facility] is reviewing referral CM has faxed updated information to [facility] [place]. Primary RN and CPSO report no behaviors from Asim during shift. A: Asim is a 54 year old patient admitted with SI and HI with a history of bipolar and has services through [facility] at [facility]. P: Asim remains involuntary for placement at this time, Arin is reviewing referral. [facility] met with patient today via tablet. Asim will transport via transition manager once bed available coordinated by [facility].
--- NOTE | 2020-04-05 12:19 | W.PM.PROGNOT ---
Date of Service Date of service: 04/05/20 Time of Service: 12:22 Assessment and Plan Assessment and plan (1) Suicidal ideations: Start date: 04/05/20 Start time: 12:26 Status: Acute Assessment and plan: He is involuntary for possible [place] admission Denies SI/HI today He is eating and drinking, calm and cooperative. 1:1 patient observer present. (2) Threatening behavior: Start date: 04/05/20 Start time: 12:27 Status: Resolved Assessment and plan: Patient has been calm and cooperative. As above threatening behavior resolved (3) Bipolar disorder: Start date: 04/05/20 Start time: 12:28 Status: Chronic Assessment and plan: Chronic mood disorder, continue psych meds CM obtaining bed. above case discussed with Dr Brennan who is in agreement. Qualifiers: Active/Remission status: currently active Current bipolar episode type: hypomanic Qualified Code(s): F31.0 - Bipolar disorder, current episode hypomanic Subjective Subjective Patient reports: no new complaints Interval history since last seen: No behavioral issues overnight. Awaiting bed placement for involuntary status. Denies CP, SOB, N/V/D Exam Narrative Exam Narrative: General: Patient appears older than stated age, unkempt with long hair. Cooperative HEENT: Normocephalic, atraumatic face with coarsened features, eyes with pupils equal and react light symmetrically, extraocular movement intact and sclera anicteric. Oropharynx not examined with patient the closing mouth and apparent edentulous. External ears and nose normal. Neck: Supple without JVD. Lungs: Fair aeration, clear to auscultation. Heart: Regular rate and rhythm with no murmurs or gallops appreciated. Abdomen: Mildly obese contour, soft to palpation with bowel sounds positive all quadrants. No palpable hepatosplenomegaly. Extremities: Without clubbing, cyanosis or edema with peripheral pulses intact and good capillary refill. Joints have fair range of motion. Skin: Pale, warm and dry. Neuro: Cranial nerves II through XII grossly intact, no focalizing motor deficits. Psych: Depressed mood and flattened affect, Denies SI/HI today Objective Last Vital Signs Temp 36.0 C L 04/04/20 08:00 Pulse 91 H 04/04/20 08:01 Resp 18 04/04/20 05:00 BP 121/75 04/04/20 08:01 Pulse Ox 95 04/04/20 08:00 Laboratory Results - last 24 hr 04/04/20 04/05/20 04/05/20 02:00 08:25 08:25 Urine Color Yellow Urine Clarity Clear Urine pH 7.0 Ur Specific [place] 1.025 Urine Protein Negative Urine Ketones Trace H Urine Blood Negative Urine Nitrite Negative Urine Bilirubin Negative Urine Urobilinogen 0.2 Ur Leukocyte Esterase Negative Urine Glucose Negative Urine Opiates Screen Negative Urine Methadone Screen Negative Ur Barbiturates Screen Negative Ur Tricyclics Screen Negative Ur Amphetamines Screen Negative U Benzodiazepines Scrn Negative Urine Cocaine Screen Negative Ur THC Screen Positive A COVID-19 PCR Negative Nasopharyn COVID-19 PCR Not Applicable Ref Test Perform Site [facility]
--- NOTE | 2020-04-05 13:58 | PDOC.CMSAFE ---
- If Service Date Differs Date of service: 04/05/20 Time of Service: 13:59 Care Management Safety Plan INVOLUNTARY FOR INPATIENT PSYCHIATRIC STABILIZATION. Safety plan has been established to meet the needs of the patient, and consideration of the care team, to adhere to patient goals, identify restrictions based on behavioral status, address nutrition, and determine allowed personal belongings, tools for hygiene and personal care. Determine level of activity including ambulation, level of supervision, visitors, and determine privileges based on behaviors and level of engagement by pt. SAFETY PLAN: 1. Will remain on SI/HI precautions. In Paper Clothes 2. Will remain in room under direct supervision of one-on-one staff at all times provided by [employer]; DONTAE, JEWEL FLAT SURFACER gas pumping station supervisor. 3. May have paper cups, plates, finger foods as well as a metal spoon for meals to be accounted for upon meal completion 4. Follow [facility] Management of the Admitted Behavioral Health Patient policy. 5. Comfort wipes shower at the discretion of primary care team with appropriate supervision 6. Asim can have his glasses in the room 7. Visitors: No visitors per [facility] policy related to COVID policy 8. Activities: Television, remote, coloring, paper, soft tip markers, reading material 9. Bathroom privileges with supervision 10. Phone: At the discretion of primary care team 11. Due to INVOLUNTARY status, if patient wishes to leave [facility], the [facility] sheet metal duct worker supervisor must be contacted to re-evaluate patient prior to patient exiting the building. Patient is currently involuntarily at [facility] and seeking inpatient admission when a bed becomes available. [facility] Frontline Heel Cementer Machine will continue seeking placement. Please contact the Manager Enterprise Content Management Sportspersons ([phone]) and [facility] Heel Cementer Machine ([phone]) for any needed changes in the Safety Plan. Safety plan has been provided to interdepartmental care team.
[2020-04-05 15:32] VITALS: BP 110/74; PULSE 80; RESP 19; TEMP 36.4; O2SAT 96
--- NOTE | 2020-04-05 15:51 | PDOC.MHCN ---
Date of service: 04/05/20 Time of Service: 15:51 Mental Health Crisis Note Presenting Issue How did you arrive at the ED and why did you come: Asim arrived to the ER Sunday evening voluntarily with both SI and HI but was refusing treatment so an EE was completed. Precipitating Factors Asim denied SI and HI today. He stated he's not worth it. when asked about his HI toward a once friend. He is not showing any signs of delusions. Disposition BEHAVIOR: Asim is showing greatly improved insight and judgment today. He has begun eating and drinking and is voluntarily taking his medications. He is able to process through some of the events that lead to his SI and HI this past week and start safety planning next steps or how he can have better outcomes when he is feeling lonely and stressed. EYE CONTACT: Asim did not always hold the computer on his entire face so eye contact was intermittent. MOOD: Asim is reporting an improved mood. AFFECT: Asim's affect was unableto be assessed due to how he was holding the tablet. APPETITE: Asim reports improved appetite and Synthetic Plasterer's report the same. SLEEP(trouble falling/staying asleep: Asim reported good sleep. Plan Asim will remain on EE status at this time. He will be re-evaluated tomorrow and plans put in place to further work on safety planning. Asim was made aware that we need to see more consistency in his abiltiy to make good healthy choices for himself. Signature Clinician's Name/Title: Tamie Mccord MS, [facility] Emergency Services Clinician
[2020-04-05] MEDS: Melatonin 3 MG TAB 9 MG PO (21:01)
[2020-04-05] MEDS: traZODone 50 MG TAB PO (21:02)
[2020-04-06 02:22] VITALS: BP 112/80; PULSE 67; RESP 17; TEMP 36; O2SAT 98
[2020-04-06] MEDS: Levothyroxine 75 MCG TAB PO (06:29)
[2020-04-06] MEDS: Omeprazole 20 MG CAPCR PO (07:45)
[2020-04-06] MEDS: hydrOXYzine HCL 25 MG TAB PO (07:46)
[2020-04-06] MEDS: OLANZapine 5 MG TAB PO (07:46)
[2020-04-06 07:54] VITALS: BP 125/71; PULSE 73; RESP 18; TEMP 36.4; O2SAT 96
--- NOTE | 2020-04-06 09:59 | PDOC.MHCN ---
Date of service: 04/06/20 Time of Service: 10:00 Mental Health Crisis Note Presenting Issue How did you arrive at the ED and why did you come: Patient arived at the ED on04/04/2020 with strong S/I and a plan.Patient also reported H/I. Precipitating Factors Patient denies any AH,S/I,H/I. He is cooperating with staff and taking medications as prescribed. He is fully oriented and not showing any signs of psychosis, mary or delusions. Disposition BEHAVIOR: The patient is cooperative and not causing any problems. EYE CONTACT: Patient maintained appropriate eye contact throughout the assessement. MOOD: Euthymic. AFFECT: Unremarkable. APPETITE: Patient has an appropriate appetite. SLEEP(trouble falling/staying asleep: Patient reports no trouble sleeping. Plan Plan is to seek psychiatric placement. However the patients mental status and behavior have improved significantly since admission that if he continues to demonstrate the same cooperation discharge to home will be considered for the client after the afternoon screening.
--- NOTE | 2020-04-06 10:26 | PDOC.CMSAFE ---
- If Service Date Differs Date of service: 04/06/20 Time of Service: 10:26 Care Management Safety Plan INVOLUNTARY FOR INPATIENT PSYCHIATRIC STABILIZATION. Safety plan has been established to meet the needs of the patient, and consideration of the care team, to adhere to patient goals, identify restrictions based on behavioral status, address nutrition, and determine allowed personal belongings, tools for hygiene and personal care. Determine level of activity including ambulation, level of supervision, visitors, and determine privileges based on behaviors and level of engagement by pt. SAFETY PLAN: 1. Will remain on SI/HI precautions. In Paper Clothes 2. Will remain in room under direct supervision of one-on-one staff at all times provided by [employer]; DONTAE, MANAGING DIRECTOR creative director. 3. May have paper cups, plates, finger foods as well as a metal spoon for meals to be accounted for upon meal completion 4. Follow [facility] Management of the Admitted Behavioral Health Patient policy. 5. Comfort wipes, shower at the discretion of primary care team with appropriate supervision 6. Asim can have his glasses in the room 7. Visitors: No visitors per [facility] policy related to COVID policy 8. Activities: Television, remote, coloring, paper, soft tip markers, reading material 9. Bathroom privileges with supervision 10. Phone: At the discretion of primary care team 11. Due to INVOLUNTARY status, if patient wishes to leave [facility], the [facility] ornamental ironworker must be contacted to re-evaluate patient prior to patient exiting the building. Patient is currently involuntarily at [facility] and seeking inpatient admission when a bed becomes available. [facility] Frontline Cutter Operator Asbestos Shingle will continue seeking placement. Please contact the Sausage Cooker Diesel Service Apprentice ([phone]) and [facility] Cutter Operator Asbestos Shingle ([phone]) for any needed changes in the Safety Plan. Safety plan has been provided to interdepartmental care team.
--- NOTE | 2020-04-06 10:28 | CMPROGNOTE_ITS ---
- If Service Date Differs Date of service: 04/06/20 Time of Service: 10:28 Care Management Progress Note S/O: Asim was sitting up in his bed when CM met with him. He reported that he was feeling better today. CM facilitated a zoom meeting with Jagdish, his MAGNETIC TAPE COMPOSER OPERATOR registered nurse hh case manager. Jagdish stated that he appears to be at his baseline, and feels that he may be able to be walked off his Involuntary status and discharged home today. Jagdish will meet with his fitness supervisor today at 1pm, and then zoom with Asim again to determine if he continues to meet criteria for his Involuntary status. Asim's concerns today include finding his glasses as well as his keys. OLIMPIA huddled with Silvina RN Furniture Upholsterer Apprentice, Brittany, Coordinator, Skyler, Primary RN, and OLIMPIA Delgado, at 10:15 am. Asim's belongings were found by his RN in the ICU. He was given his glasses. Asim was accepted at [facility], and will be able to be accepted at 3:30pm, but not before. OLIMPIA contacted [facility], who set up transportation in coordination with [facility]. While awaiting transport, Asim became agitated and CM was asked to talk to him. OLIMPIA coordinated a phone call with Jagdish, [facility], to help support him through this situation. Asim's RN later brought in medication for his anxiety, which he agreed to take. He was transported at 4pm by [facility]. He was agreeable to go at the time of transport. CM will continue to follow. A: Asim is a 54 year old patient admitted with SI and HI with a history of bipolar and has services through MAGNETIC TAPE COMPOSER OPERATOR at [facility]. P: Asim remains involuntary for placement at this time, [place] is reviewing referral. [facility] met with patient today via tablet. Asim will transport via [employer] once bed available coordinated by mental health.
--- NOTE | 2020-04-06 10:28 | PDOC.CMPRO ---
- If Service Date Differs Date of service: 04/06/20 Time of Service: 10:28 Care Management Progress Note S/O: Asim was sitting up in his bed when CM met with him. He reported that he was feeling better today. CM facilitated a zoom meeting with Jagdish, his TEACHER INDUSTRIAL [employer]S case mgr. Jagdish stated that he appears to be at his baseline, and feels that he may be able to be walked off his Involuntary status and discharged home today. Jagdish will meet with his supervisor electron tube processing today at 1pm, and then zoom with Asim again to determine if he continues to meet criteria for his Involuntary status. Asim's concerns today include finding his glasses as well as his keys. OLIMPIA huddled with Silvina RN Agricultural Produce Packer, Brittany, Coordinator, Skyler, Primary RN, and OLIMPIA Delgado, at 10:15 am. Asim's belongings were found by his RN in the ICU. He was given his glasses. Asim was accepted at [facility], and will be able to be accepted at 3:30pm, but not before. OLIMPIA contacted [facility], who set up transportation in coordination with [facility]. While awaiting transport, Asim became agitated and CM was asked to talk to him. OLIMPIA coordinated a phone call with Jagdish, [facility], to help support him through this situation. Asim's RN later brought in medication for his anxiety, which he agreed to take. He was transported at 4pm by [facility]. He was agreeable to go at the time of transport. CM will continue to follow. A: Asim is a 54 year old patient admitted with SI and HI with a history of bipolar and has services through TEACHER INDUSTRIAL ARTS at [facility]. P: Asim remains involuntary for placement at this time, [place] is reviewing referral. [facility] met with patient today via tablet. Asim will transport via [facility] [place] once bed available coordinated by mental health.
--- NOTE | 2020-04-06 11:00 | RT.EKG_ITS ---
APPROVED REPORT Exam: Resting ECG Patient Location: I HR:74 bpm ECG Measurements Heart Rate 74 AXIS AL 130 P 61 QRSd 97 QRS 13 QT 392 T 46 QTc 436 Conclusion Sinus rhythm...normal P axis, V-rate 60- 99 Normal Electrocardiogram
--- NOTE | 2020-04-06 11:02 | DSE_ITS ---
Date of service: 04/06/20 Time of Service: 11:02 DS: Diagnosis Discharge Diagnosis (1) Suicidal ideations: Status: Acute (2) Threatening behavior: Status: Resolved (3) Bipolar disorder: Status: Chronic Discharge Plan Disposition Patient Disposition: [facility] Condition: Stable Discharge Details Reason For Visit: BIPOLAR, SUICIDAL IDEATION Admit Date/Time: 04/04/20 01:26 Admit Provider: Saravanan Ricardo Attending Provider: Saravanan Ricardo Primary Care Provider: Fariba Forde Hospital Course Hospital Course: This is a 54-year-old male patient who was brought to the ED involuntarily and after assessment involuntarily admitted for psychiatric inpatient placement for continued and active suicidal ideation with homicidal ideation toward specific people claiming that he would kill them then kill himself using a gun. The patient does not own a gun. 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 Patient is well-known to the emergency department and psychiatry with frequent visits to the ED recently and plan for outpatient care which is failed. Patient was picked up in the field by the police. He received 2 doses of Haldol because of agitation and just before 5 AM with the second order for four-point restraints given. Patient continued to be agitated and fighting the restraints prior to the second dose of Haldol with threats to staff. He ultimately received ketamine. He was involuntarily held for inpatient psychiatric treatment. while on med/surg he continued to be volatile with verbal threats. He was agreeable to take haldol 4 mg, ativan 2 mg and benadryl 50 mg IM to help with his symptoms of anger and agitation. A bed has been secured and he will be transported by [facility]. discharge discussed with DR Brennan who is in agreement. Home Meds and New Rx's Prescriptions: Continued omeprazole 20 MG capsule,delayed release(DR/EC) 20 mg PO QAM RF: 0 magnesium oxide 400 mg (241.3 mg magnesium) tablet 400 mg PO QAM RF: 0 sennosides [senna] 8.6 mg Tablet 8.6 mg PO BID PRNRF: 0 sertraline 100 mg Tablet 100 mg PO DAILY RF: 0 hydroxyzine HCl 25 mg Tablet 25 mg PO BID RF: 0 lamotrigine [Lamictal] 200 mg Tablet 200 mg PO DAILY RF: 0 prazosin 2 mg Capsule 2 mg PO QHS RF: 0 hydroxyzine pamoate [Vistaril] 25 mg Capsule 25 mg PO .BID,PRN RF: 0 bupropion HCl 200 mg Tablet Sustained-Release 12 Hr 200 mg PO DAILY RF: 0 Vraylar 3 mg Capsule 3 mg PO DAILY RF: 0 trazodone 50 mg tablet 50 mg PO HS RF: 0 olanzapine 5 mg tablet 5 mg PO DAILY RF: 0 melatonin 3 mg tablet 6 mg PO HS RF: 0 levothyroxine 75 mcg tablet 75 mcg PO DAILY RF: 0 pravastatin 20 mg tablet 20 mg PO HS RF: 0 Discharge Instructions Instructions: Bipolar Disorder (DC), Suicide Prevention (DC) Additional Instructions: continue medications as directed. present for inpatient psychiatric care Stand Alone Forms: Nursing Discharge Form Referrals: Fariba Forde [Primary Care Provider] - (on discharge from inpatient psychiatric care) Activity:: Activity as Tolerated Diet:: As Tolerated DS: Summary Status at Discharge Functional status at discharge: independent ambulation Overall status at discharge: patient is not back to baseline Mental Status: mental status grossly normal Speech and Movement: agitated Mood: labile mood Affect: blunted Exam Narrative Exam Narrative: General: Patient appears older than stated age, unkempt. HEENT: Normocephalic, atraumatic , eyes with pupils equal and react light symmetrically, extraocular movement intact and sclera anicteric. External ears and nose normal. Neck: Supple without JVD. Lungs: respirations even and unlabored Heart: pink warm and dry, well perfused. Abdomen: round. Extremities: moves all extremities, no edema Skin: Pale, warm and dry. Neuro: awake and oriented. Psych: Depressed mood and flattened affect Psych Mental Status: mental status grossly normal Speech and Movement: agitated Mood: labile mood Affect: blunted DS: Data Vitals/I&O Vitals and I&O: Vital Signs Temperature 36.4 C L 04/06/20 07:54 Temperature Source Tympanic 04/06/20 02:22 Pulse 73 04/06/20 07:54 Pulse Rhythm Regular 04/06/20 07:40 Respiratory Rate 18 04/06/20 07:54 Respiratory Effort Non-Labored 04/06/20 07:40 Respiratory Depth Normal 04/06/20 07:40 Respiratory Pattern Normal 04/06/20 07:40 Blood Pressure 125/71 04/06/20 07:54 Blood Pressure Mean 85 04/04/20 08:01 Blood Pressure Position Supine 04/04/20 08:00 Pulse Oximetry 96 04/06/20 07:54 Oxygen Delivery Method Room Air 04/06/20 07:54 Oxygen Flow Rate 0 04/06/20 07:54 Pain Level 0 04/06/20 07:54 Intake & Output 04/05/20 04/05/20 04/06/20 11:59 23:59 11:59 Intake Total 970 / 1700 730 / 1700 450 / 450 Balance 970 / 1700 730 / 1700 450 / 450 Intake: Oral 970 / 1700 730 / 1700 450 / 450 Other: Urine Color Yellow Urine Appearance Clear Clear Urine Odor Normal Comment volume not measured. patient flushed Voiding Methods Toilet Toilet Toilet Data Completed and Pending Labs on day of discharge: 04/05/20 08:25 Urine - Clean Catch Urine Culture - Pending Preliminary micro results at discharge 04/05/20 08:25 Urine Culture - Pending Urine - Clean Catch [facility] Medical History (Updated 04/05/20 @ 12:27 by Payal Landry NP) Anxiety Bipolar disorder COPD (chronic obstructive pulmonary disease) GERD (gastroesophageal reflux disease) Hypothyroid Traumatic pneumothorax 2016, chest tube x2 Surgical History History of ankle surgery S/P thoracostomy tube placement Social History Smoking/Tobacco Use Status: Current every day Tobacco Type: cigarettes Smoking risk assessment performed?: Yes Alcohol Intake: never Drug use: Daily Substance use type: marijuana Do you feel safe at home: Yes Do you feel safe in your relationship?: Yes
[2020-04-06] MEDS: LORazepam 1 MG TAB PO (11:38)
[2020-04-06] MEDS: diphenhydrAMINE 50 MG/ML VIAL IM (12:21)
[2020-04-06] MEDS: LORazepam 2 MG/ML VIAL IM (12:21)
[2020-04-06] MEDS: Haloperidol 5 MG/ML VIAL 4 MG IM (12:21)
== END 2020-04-06 16:02 | disposition short-term general hospital (02) | DRG 885 ==
LOC: ER 04-04 01:33 → ICU 04-04 02:36 → MS 04-04 13:11
PROVIDERS: Internal Medicine; Admitting Provider Family Medicine; Emergency Provider Emergency Medicine; PCP Nurse Practitioner; Visit Provider Family Medicine
DX: F31.0 Bipolar disorder, current episode hypomanic (principal); R45.851 Suicidal ideations; R45.850 Homicidal ideations; Z78.1 Physical restraint status; F41.9 Anxiety disorder, unspecified; J44.9 Chronic obstructive pulmonary disease, unspecified; K21.9 Gastro-esophageal reflux disease without esophagitis; E03.9 Hypothyroidism, unspecified; F17.210 Nicotine dependence, cigarettes, uncomplicated; R46.89 Other symptoms and signs involving appearance and behavior
CPT/HCPCS: 36415; 80048; 80053; 80076; 80307; 96372; 99222; 99233; 99239; 99285; NC; U0003; 71045; 80320; 80329; 81003; 83735; 84439; 84443; 85025; 87086; 99284; J1200; J1630; J2060

== ENCOUNTER 2020-04-11 03:36 | Emergency (ER) | payer MEDICAID, SELFPAY ==
[2020-04-11 03:44] VITALS: BP 128/96; PULSE 93; RESP 18; TEMP 35.8; O2SAT 95
--- NOTE | 2020-04-11 03:53 | ED.GENADUL_ITS ---
Discharge Plan Disposition Patient Disposition: HOME Condition: Stable Discharge Details Clinical Impression: Depression, Bipolar disorder Primary Care Provider: Fariba Forde ED Provider: Jagdish Aleman Home Meds and New Rx's Prescriptions: Continued omeprazole 20 MG capsule,delayed release(DR/EC) 20 mg PO QAM RF: 0 magnesium oxide 400 mg (241.3 mg magnesium) tablet 400 mg PO QAM RF: 0 sennosides [senna] 8.6 mg Tablet 8.6 mg PO BID PRNRF: 0 sertraline 100 mg Tablet 100 mg PO DAILY RF: 0 hydroxyzine pamoate [Vistaril] 25 mg Capsule 25 mg PO TID PRNRF: 0 trazodone 50 mg tablet 50 mg PO HS RF: 0 olanzapine 5 mg tablet 5 mg PO DAILY RF: 0 melatonin 3 mg tablet 6 mg PO HS RF: 0 levothyroxine 75 mcg tablet 75 mcg PO DAILY RF: 0 pravastatin 20 mg tablet 20 mg PO HS RF: 0 Discharge Instructions Instructions: Depression (ED) Additional Instructions: Follow-up with [facility] human services as discussed with them. Continue your regularly prescribed medications. Return to the emergency department for any acute concerns. Medical Decision Making <Asim Fierro MD - Last Filed: 04/11/20 07:42> 54 yo male with hx of bipolar depression who was d/c'd from [place] for depression/si on Sunday comes in with continued thoughts of self harm. 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 HAs normal speech, normal gait, no focal deficits. Suspect this is due to his underlying psychiatric illness, no findings to suggest underlying medical process such as infection or endocrine disorder, he is medically cleared to speak with mental health. pt seen by mental health and will be voluntary psych bed search at this time. Pt will remain in ED as no availability in the hospital here at present time. pt requested something for sleep/anxiety, given 0.5mg oral ativan no for chemical restraint but for these reasons. Pt will be signed out to oncoming provider pending placement Differential Diagnosis Differential Diagnosis: depression, bipolar Medical Records Medical records reviewed: Yes I reviewed the patient's medical records. Lab Data Lab results reviewed: Yes I reviewed the patient's lab results. <Jagdish Aleman MD - Last Filed: 04/11/20 11:12> Received signout from Dr. Fierro. Please see his note regarding patient's initial presentation and plan of care. [facility] Patient was given olanzapine and had a morning meal. He was reevaluated by [facility] services. A plan was made for outpatient management. Patient requested discharge and stated he was no longer feeling thoughts of harming himself and no thoughts of harming others. He is stable and improved. HPI <Asim Fierro MD - Last Filed: 04/11/20 07:42> General Mode of arrival: ambulatory . Date/Time Provider Initiated Documentation: 04/11/20 03:49 . Limitations to Documentation: no limitations . Information obtained by: patient . History of Present Illness 54 year old M presents to the emergency department with the chief complaint of depression, described as moderate, and it has been constant. No relieving factors improve symptom(s), No exacerbating factors reported . Related Data Home Medications Medication Instructions Recorded Confirmed omeprazole 20 mg PO QAM 10/16/13 04/11/20 magnesium oxide 400 mg PO QAM 10/20/19 04/11/20 levothyroxine 75 mcg PO DAILY 12/19/19 04/11/20 melatonin 6 mg PO HS 12/19/19 04/11/20 olanzapine 5 mg PO DAILY 12/19/19 04/11/20 pravastatin 20 mg PO HS 12/19/19 04/11/20 trazodone 50 mg PO HS 12/19/19 04/11/20 hydroxyzine pamoate [Vistaril] 25 mg PO TID PRN 04/05/20 04/11/20 sennosides [senna] 8.6 mg PO BID PRN 04/05/20 04/11/20 sertraline 100 mg PO DAILY 04/05/20 04/11/20 Allergies Allergy/AdvReac Type Severity Reaction Status Date / Time Sulfa (Sulfonamide Allergy Severe Swelling/Ed Unverified 04/11/20 03:48 Antibiotics) jostin General Stated Complaint: PsychEval ABA: 2 Review of Systems <Asim Fierro MD - Last Filed: 04/11/20 07:42> All systems reviewed & are unremarkable except as noted in HPI and below Constitutional Constitutional: Denies chills, Denies fever(s) and Denies weakness Cardiovascular Cardiovascular: Denies chest pain and Denies dyspnea Respiratory Respiratory: Denies cough and Denies dyspnea Gastrointestinal Gastrointestinal: Denies abdominal pain, Denies nausea and Denies vomiting Musculoskeletal Musculoskeletal: Denies joint swelling Neurologic Neurologic: Denies weakness PFS <Asim Fierro MD - Last Filed: 04/11/20 07:42> Medical History (Updated 04/11/20 @ 04:17 by Asim Fierro MD) Anxiety Bipolar disorder COPD (chronic obstructive pulmonary disease) GERD (gastroesophageal reflux disease) Hypothyroid Traumatic pneumothorax 2017, chest tube x2 Surgical History History of ankle surgery S/P thoracostomy tube placement Social History Smoking/Tobacco Use Status: Current every day Tobacco Type: cigarettes Smoking risk assessment performed?: Yes Alcohol Intake: never Drug use: Daily Substance use type: marijuana Do you feel safe at home: Yes Do you feel safe in your relationship?: Yes Exam <Asim Fierro MD - Last Filed: 04/11/20 07:42> Const General: no acute distress Orientation: alert [facility] Head: normal to inspection Ears: external ears normal General nose exam: external nose normal Mouth: moist mucous membranes Eyes General: appearance normal, both eyes and all related structures Neck Neck: normal visual inspection Resp Effort & Inspection: normal respiratory effort and able to speak in complete sentences Cardio Rate: regular rate Skin General skin exam: no rashes or lesions noted Neuro General: patient alert and patient oriented x3 Extrem General: normal to inspection Course <Asim Fierro MD - Last Filed: 04/11/20 07:42> Vital Signs Vital signs: Vital Signs Temperature 35.8 C L 04/11/20 03:44 Pulse 93 H 04/11/20 03:44 Respiratory Rate 18 04/11/20 03:44 Blood Pressure 128/96 H 04/11/20 03:44 Pulse Oximetry 95 04/11/20 03:44 Temperature 35.8 C L 04/11/20 03:44 Temperature Source Skin 04/11/20 03:44 Pulse 93 H 04/11/20 03:44 Respiratory Rate 18 04/11/20 03:44 Respiratory Effort Non-Labored 04/11/20 03:49 Blood Pressure 128/96 H 04/11/20 03:44 Pulse Oximetry 95 04/11/20 03:44 Oxygen Delivery Method Room Air 04/11/20 03:44 Oxygen Flow Rate 0 04/11/20 03:44 Pain Level 0 04/11/20 03:44 Sign Out <Asim Fierro MD - Last Filed: 04/11/20 07:42> Sign Out Data: Sign Out Comment: voluntary psych bed search for depression and suicidal thoughts Last updated by Asim Fierro MD at 04/11/20 04:17
--- NOTE | 2020-04-11 04:29 | CMSP_ITS ---
- If Service Date Differs Date of service: 04/11/20 Time of Service: 04:29 Care Management Safety Plan Asim is a 54 year old man who presented to the ED verbalizing suicidal ideation. Asim has a long history of depression with suicidal and homicidal thoughts. 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 Asim was just discharged from [facility] on Sunday after being at [facility] for a brief period. He has had many hospitalizations for SI and/or HI in the past and 8 ED visits in the past year. He was screened by [facility] crisis screener and is seeking voluntary psychiatric admission. VOLUNTARY FOR INPATIENT PSYCHIATRIC STABILIZATION. Asim is appropriate in all interactions since arriving at [facility]; she has demonstrated appropriate coping and communication skills, has articulated his or her needs and concerns and is fully engaged during staff interactions. Safety plan has been established with patient, and care team, to adhere to patient goals, identify restrictions based on behavioral status, address nutrition, and determine allowed personal belongings, tools for hygiene and personal care. Determine level of activity including ambulation, level of supervision, visitors, and determine privileges based on behaviors and level of engagement by pt. SAFETY PLAN: 1. Will remain on suicide precautions and in paper clothes. 2. Will remain in room under direct supervision of one-on-one staff at all times provided by [employer], PATHOLOGY LABORATORY AIDES TEACHER, INFORMATION AND REFERRAL DIRECTOR bag machine operator helper. 3. May have paper cups, plates, finger foods as well as a cardboard spoon with which to eat meals. 4. Follow [facility] Management of the Admitted Behavioral Health Patient policy. 5. Comfort bath only. 6. No personal belongings 7. Visitors: No visitors permitted to visit at this time. 8. Activities: Soft tip markers, paper, books, television if available 9. No phone calls at this time . Due to VOLUNTARY status, if patient wishes to leave [facility], the [facility] building service worker must be contacted to re-evaluate patient prior to patient exiting the building. If deemed appropriate for inpatient psychiatric care, safety plan will be established with patient, and care team, to adhere to patient goals, identify restrictions based on behavioral status, address nutrition, and determine allowed personal belongings, tools for hygiene and personal care. As well plan will determine level of activity including ambulation, level of supervision, visitors, and determine privileges based on level of acuity, behaviors and level of engagement by patient.
[2020-04-11 04:32] LABS: Abs Immature Grans 0.04 10^3/uL (0.0-0.06); Absolute Basophil Count 0.05 10^3/uL (0.0-0.2); Absolute Eosinophil Count 0.21 10^3/uL (0.0-0.7); Absolute Monocyte Count 0.75 10^3/uL (0.1-0.8); Absolute Neutrophil Count 8.65 10^3/uL (1.2-6.7); Basophils % 0.4; Eosinophils % 1.8; HCT 43.9 % (40.0-50.0); HGB 14.7 g/dL (13.5-17.5); Immature Grans % 0.3; Lymphocytes % 18.4; MCH 27.7 pg (27.0-33.0); MCHC 33.5 % (32.0-36.0); MCV 82.8 fL (80-95); MPV 9.8 fL (8.0-11.0); Monocytes % 6.3; Neutrophils % 72.8; Nucleated RBC 0 %; Platelet Count 238 10^3/uL (130-400); RDW 12.9 % (11.8-14.1); RDW-SD 38.8 fL; WBC 11.88 10^3/uL (4.4-10.8)
[2020-04-11 04:41] LABS: Absolute Lymphocyte Count 2.19 10^3/uL (1.2-3.4)
[2020-04-11 04:56] LABS: ALT 41 U/L (16-63); AST 36 U/L (15-37); Albumin 3.9 g/dL (3.4-5.0); Alkaline Phosphatase 135 U/L (46-116); Anion Gap 8.2 mmol/L (3-11); BUN 18 mg/dL (7-18); Bilirubin, Total 0.4 mg/dL (0.2-1.0); CO2 25.8 mmol/L (21.0-32.0); CREATININE 0.94 mg/dL (0.70-1.30); Calcium 8.5 mg/dL (8.5-10.1); Chloride 100 mmol/L (98-107); Glucose 133 mg/dL (74-106); Potassium 3.3 mmol/L (3.5-5.1); Sodium 134 mmol/L (136-145); TSH (W/Ref FT4) 1.53 uIU/mL (0.36-3.74)
[2020-04-11 04:57] LABS: ETHANOL BLOOD < 3.0 mg/dL (<3)
[2020-04-11 05:02] LABS: Acetaminophen < 2 ug/mL (10-30); Salicylate < 2.8 mg/dL (2.8-20.0)
[2020-04-11 05:22] LABS: Bilirubin Negative (Negative); Blood Negative (Negative); Clarity Clear (Clear); Glucose Negative (Negative); Ketones Negative (Negative); Leukocyte Esterase Negative (Negative); Nitrite Negative (Negative); Specific Gravity 1.025 (1.005-1.025); Urobilinogen 0.2 EU/dL (Up TO 0.2)
[2020-04-11 05:33] LABS: *AMPHETAMINES SCREEN URINE Negative (Negative); *BARBITURATES SCREEN URINE Negative (Negative); *BENZODIAZEPINES SCREEN URINE Negative (Negative); Cannabinoids THC POSITIVE (Negative); Cocaine Screen,Urine Negative (Negative); METHADONE URINE SCREEN Negative (Negative); OPIATES URINE SCREEN Negative (Negative)
[2020-04-11 05:53] LABS: Tricyclic Antidepressants Negative (Negative)
[2020-04-11] MEDS: LORazepam 0.5 MG TAB PO (07:50)
[2020-04-11 08:06] VITALS: BP 108/82; PULSE 86; TEMP 36.1; O2SAT 96
[2020-04-11] MEDS: OLANZapine 5 MG TAB PO (08:29)
--- NOTE | 2020-04-11 09:02 | PDOC.CMSAFED ---
- If Service Date Differs Date of service: 04/11/20 Time of Service: 09:02 Care Management Safety Plan Asim is a 54 year old man who presented to the ED verbalizing suicidal ideation. Asim has a long history of depression with suicidal and homicidal thoughts. 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 Asim was just discharged from [facility] on Sunday after being at [facility] for a brief period. He has had many hospitalizations for SI and/or HI in the past and 8 ED visits in the past year. He was screened by [facility] crisis screener and is seeking voluntary psychiatric admission. VOLUNTARY FOR INPATIENT PSYCHIATRIC STABILIZATION. Asim is appropriate in all interactions since arriving at [facility]; she has demonstrated appropriate coping and communication skills, has articulated his or her needs and concerns and is fully engaged during staff interactions. Huddle held at 8:45 am. Present: Sharon, Nursing drafting supervisor, SEAMUS Mendes, Vikki Key CM Safety plan has been established with patient, and care team, to adhere to patient goals, identify restrictions based on behavioral status, address nutrition, and determine allowed personal belongings, tools for hygiene and personal care. Determine level of activity including ambulation, level of supervision, visitors, and determine privileges based on behaviors and level of engagement by pt. SAFETY PLAN: 1. Will remain on suicide precautions 2. May wear own clothes while in ED (has been wanded by ) but must change into paper scrubs if transferred to med-surg. 3. Will remain in room under direct supervision of one-on-one staff at all times provided by [employer], DONTAE, ANALYTICS INTERN steam box operator. 4. May have paper cups, plates, finger foods as well as a cardboard spoon with which to eat meals. 5. Follow [facility] Management of the Admitted Behavioral Health Patient policy. 6. Comfort bath only. 7. May keep cell phone while in the ED. 8. Visitors: No visitors permitted to visit at this time. 9. Activities: Soft tip markers, paper, books, television if available 10. May make phone calls under supervision . Due to VOLUNTARY status, if patient wishes to leave [facility], the [facility] signal worker helper must be contacted to re-evaluate patient prior to patient exiting the building. If deemed appropriate for inpatient psychiatric care, safety plan will be established with patient, and care team, to adhere to patient goals, identify restrictions based on behavioral status, address nutrition, and determine allowed personal belongings, tools for hygiene and personal care. As well plan will determine level of activity including ambulation, level of supervision, visitors, and determine privileges based on level of acuity, behaviors and level of engagement by patient.
[2020-04-11] MEDS: Magnesium Oxide 400 MG TAB PO (10:58)
[2020-04-11] MEDS: Levothyroxine 75 MCG TAB PO (10:58)
[2020-04-11] MEDS: Omeprazole 20 MG CAPCR PO (10:58)
[2020-04-11] MEDS: Sertraline 50 MG TAB 100 MG PO (10:58)
[2020-04-11 11:17] VITALS: BP 104/82; PULSE 78; O2SAT 98
--- NOTE | 2020-04-11 14:42 | NUR.NOTE ---
04/11/2020 @ 1442 - called patient, verified identity and relayed negative covid test result to him.
[2020-04-11 15:10] LABS: COVID-19 RT-PCR UVMMC Result Negative (Negative)
== END 2020-04-11 11:19 | disposition home or self-care (01) ==
PROVIDERS: Emergency Medicine; Emergency Provider Emergency Medicine; PCP Nurse Practitioner
DX: F31.32 Bipolar disorder, current episode depressed, moderate (principal); T50.906A Underdosing of unspecified drugs, medicaments and biological substances, initial encounter; J44.9 Chronic obstructive pulmonary disease, unspecified; F17.210 Nicotine dependence, cigarettes, uncomplicated; Z91.128 Patient's intentional underdosing of medication regimen for other reason; Z03.818 Encounter for observation for suspected exposure to other biological agents ruled out
CPT/HCPCS: 36415; 80053; 80307; 99285; U0003; 80320; 80329; 81003; 84443; 85025; 99283

== ENCOUNTER 2020-04-26 16:32 | Observation (INO) | payer MEDICAID, SELFPAY ==
[2020-04-26 16:43] VITALS: BP 130/73; PULSE 94; RESP 18; TEMP 36.3; O2SAT 95
--- NOTE | 2020-04-26 16:44 | ED.GENADUL_ITS ---
Discharge Plan Disposition Patient Disposition: [facility] INPATIENT Condition: Stable Discharge Details Clinical Impression: Depression with suicidal ideation Primary Care Provider: Fariba Forde ED Provider: Jagdish Aleman Home Meds and New Rx's Prescriptions: No Action omeprazole 20 MG capsule,delayed release(DR/EC) 20 mg PO QAM RF: 0 magnesium oxide 400 mg (241.3 mg magnesium) tablet 400 mg PO QAM RF: 0 sennosides [senna] 8.6 mg Tablet 8.6 mg PO BID PRNRF: 0 sertraline 100 mg Tablet 100 mg PO DAILY RF: 0 hydroxyzine pamoate [Vistaril] 25 mg Capsule 25 mg PO TID PRNRF: 0 trazodone 50 mg tablet 50 mg PO HS RF: 0 olanzapine 5 mg tablet 5 mg PO DAILY RF: 0 melatonin 3 mg tablet 6 mg PO HS RF: 0 levothyroxine 75 mcg tablet 75 mcg PO DAILY RF: 0 pravastatin 20 mg tablet 20 mg PO HS RF: 0 Medical Decision Making 54-year-old male brought by EMS after stating to [facility] on the phone that he wanted to kill himself. Police was dispatched and then patient brought by EMS. Upon arrival he is slightly agitated, stating he wants to kill himself by chopping self up into little pieces. He states he wants us to kill him by injection. States he has not been taking his medications. Patient placed in room. Screening labs obtained and unremarkable. Screening medical examination performed. Patient posturing and agitated towards staff, continues to state he wished to kill himself. Initially unwilling to change into paper clothing or to take medications. He became progressively agitated and a code arita was called. The patient subsequently took Ativan as well as olanzapine ,which he is prescribed daily. Screening exam included laboratory analysis. Patient was evaluated by mental health screener and she and I feel he meets criteria for involuntary/emergency evaluation and treatment. Rapid Covid screening test obtained and patient to be admitted to medicine pending further psychiatric disposition. Note that he does take levothyroxine, has had fairly erratic TSH levels in the past and slightly elevated today. Please note that physical restraints were initially ordered, but were ultimately not required on this patient. Lab Data Lab results reviewed: Yes I reviewed the patient's lab results. Labs: Laboratory Results - last 24 hr 04/26/20 04/26/20 04/26/20 18:51 18:51 19:10 WBC 11.55 H RBC 5.29 Hgb 14.4 Hct 44.5 MCV 84.1 MCH 27.2 MCHC 32.4 RDW 13.5 Plt Count 199 MPV 10.0 Immature Gran % 0.4 Neutrophils % 80.0 Lymphocytes % 14.4 Monocytes % 4.3 Eosinophils % 0.6 Basophils % 0.3 Nucleated RBC % 0 Absolute Neutrophils 9.24 H Absolute Lymphocytes 1.66 Absolute Monocytes 0.50 Absolute Eosinophils 0.07 Absolute Basophils 0.03 Sodium 135 L Potassium 3.6 Chloride 98 Carbon Dioxide 25.9 Anion Gap 11.1 H BUN 20 H Creatinine 1.12 Estimated GFR/1.73 m2 >= 60.00 Glucose 160 H Calcium 9.2 Total Bilirubin 0.4 AST 30 ALT 47 Alkaline Phosphatase 132 H Total Protein 8.3 H Albumin 4.2 TSH 4.39 H Salicylates 3.0 Acetaminophen < 2 Ethyl Alcohol < 3.0 HPI General Mode of arrival: EMS . Date/Time Provider Initiated Documentation: 04/26/20 16:35 . Limitations to Documentation: no limitations . Information obtained by: patient and EMS . History of Present Illness 54 year old M presents to the emergency department with the chief complaint of Depression and suicidailty. Brought by EMS, described as moderate and similar to prior episodes, and is localized to the head. Patient reports no radiation. Patient started experiencing this day(s) and it has been constant. No relieving factors improve symptom(s), No exacerbating factors reported . Patient notes denies cough and shortness of breath. Patient did receive the following treatments prior to arrival, none Related Data Home Medications Medication Instructions Recorded Confirmed omeprazole 20 mg PO QAM 10/16/13 04/11/20 magnesium oxide 400 mg PO QAM 10/20/19 04/11/20 levothyroxine 75 mcg PO DAILY 12/19/19 04/11/20 melatonin 6 mg PO HS 12/19/19 04/11/20 olanzapine 5 mg PO DAILY 12/19/19 04/11/20 pravastatin 20 mg PO HS 12/19/19 04/11/20 trazodone 50 mg PO HS 12/19/19 04/11/20 hydroxyzine pamoate [Vistaril] 25 mg PO TID PRN 04/05/20 04/11/20 sennosides [senna] 8.6 mg PO BID PRN 04/05/20 04/11/20 sertraline 100 mg PO DAILY 04/05/20 04/11/20 Allergies Allergy/AdvReac Type Severity Reaction Status Date / Time Sulfa (Sulfonamide Allergy Severe Swelling/Ed Unverified 04/11/20 03:48 Antibiotics) jostin General ABA: 2 Review of Systems Narrative: Not taking his medications today I don't want to . No recent illness. 6 systems reviewed and otherwise negative. [facility] Medical History (Updated 04/26/20 @ 19:30 by Jagdish Aleman MD) Anxiety Bipolar disorder COPD (chronic obstructive pulmonary disease) GERD (gastroesophageal reflux disease) Hypothyroid Traumatic pneumothorax 2016, chest tube x2 Surgical History History of ankle surgery S/P thoracostomy tube placement Social History Smoking/Tobacco Use Status: Current every day Tobacco Type: cigarettes Smoking risk assessment performed?: Yes Alcohol Intake: never Drug use: Daily Substance use type: marijuana Do you feel safe at home: No (pt states he doesn't feel safe.PT lives alone) Do you feel safe in your relationship?: Yes Exam Narrative Exam Narrative: GEN: awake, alert, oriented 3. well groomed, interactive. HEAD: Normocephalic, atraumatic ENT: Mucous membranes moist, oropharynx unremarkable, External ear exam unremarkable EYES: PERRL, EOMI NECK: Full ROM, no ELLIS, no menigismus CHEST/RESP: Nontender, clear to auscultation bilateral, no wheeze/rhonchi/rales CARDIOVASCULAR: RRR, no murmur, rub jose. 2+ Rad pulse bilateral ABDOMEN: Soft, nontender, no mass. +Bowel sounds EXT: Full ROM, no edema, no rash Neuro: Grossly normal neurologic exam, conversant, interactive. Psych: Speech fluent, thoughts congruent, affect slightly agitated
--- NOTE | 2020-04-26 18:10 | PDOC.CMSAFED ---
- If Service Date Differs Date of service: 04/26/20 Time of Service: 18:34 Care Management Safety Plan INVOLUNTARY FOR INPATIENT PSYCHIATRIC STABILIZATION. Asim is a 54 year old male who is well known to [facility] (5 ED visits in the last month) and has a history of suicidal ideation with multiple psychiatric hospitalizations. Per chart review, Asim has diagnoses of bipolar disorder and anxiety. He receives psychiatric services through the CHILD SUPPORT CASE OFFICER program at [facility]. Asim was admitted to [facility] for SI/HI involuntarily on 04/04/20-04/06/20, he discharged at that time to [facility]. Sumi @[id number], present were Eliecer Key; RN, Gladys; MADDY and Leonora: OLIMPIA. Dr. Aleman advocated for Asim to be permitted use of his own cell phone which has previously been noted as a good coping mechanism for regulation. He will also be permitted activity items at RN discretion. If Asim refuses to follow expectations, items will be removed. Currently, Asim is presenting as highly agitated and dysregulated, per MD. He is well known to [facility] and will continue to be closely monitored and supported. Safety plan has been established to meet the needs of the patient, and consideration of the care team, to adhere to patient goals, identify restrictions based on behavioral status, address nutrition, and determine allowed personal belongings, tools for hygiene and personal care. Determine level of activity including ambulation, level of supervision, visitors, and determine privileges based on behaviors and level of engagement by pt. SAFETY PLAN: 1. Will remain on SI/HI precautions. In Paper Clothes 2. Will remain in room under direct supervision of one-on-one staff at all times provided by [employer]; DONTAE, COMMUNITY AFFAIRS MANAGER latin american studies professor. 3. May have paper cups, plates, finger foods as well as a metal spoon for meals to be accounted for upon meal completion 4. Follow [facility] Management of the Admitted Behavioral Health Patient policy. 5. Comfort wipes, shower at the discretion of primary care team with appropriate supervision 6. Personal belongings: Eye glasses permitted. Cell phone permitted if following expectations; at RN discretion. 7. Visitors: No visitors per [facility]/COVID policy 8. Activities: Television, remote, coloring, paper, soft tip markers, reading material permitted if following expectations; at RN discretion. 9. Bathroom privileges with supervision in ED, available in room without limitation on Med/Surg. 10. Phone: At the discretion of primary care team 11. Due to INVOLUNTARY status, patient is being held at [facility] by the Department of Mental Health ([facility]) until 2nd certification by [facility] Psychiatrist can be performed (within 24 hours). Staff will provide de-escalation support (CPI) as needed. If patient wishes to leave [facility], staff will contact [facility] Crisis Screener ([phone]) and On-Call Land Economist ([phone]) as soon as possible. In the event of elopement, notify [facility] Police ([phone]). Patient is currently involuntarily at [facility]. [facility] Frontline Optical Design Engineer will continue seeking placement. Please contact the Concrete Paving Machine Operator Land Economist ([phone]) for any needed changes to Safety Plan. Safety plan has been provided to interdepartmental care team.
[2020-04-26] MEDS: diphenhydrAMINE 25 MG CAP 50 MG PO (18:57)
[2020-04-26] MEDS: LORazepam 1 MG TAB PO (18:58)
[2020-04-26] MEDS: OLANZapine 5 MG TAB PO (18:59)
--- NOTE | 2020-04-26 19:02 | W.PM.HP.N ---
Date of service: 04/26/20 Time of Service: 19:02 Assessment and Plan Assessment and plan (1) Suicidal thoughts: Status: Acute Assessment and plan: Suicidal. Will resume usual meds, await transfer to facility. History of Present Illness History of Present Illness Chief Complaint: suicidal Narrative: 54 male with h/o multiple psychiatric dxx, multiple hospitalizations for suicidality -- here with worsening depression, has been burning self with cigarettes. Called [facility], police summoned and brought to ER. In ER Colt Gonsalez called due to agitation, given Haldol, benadryl and Ativan with good effect. Also given usual doise of Zyprexa which he says he did not take today. Is admitted on involuntary status pending transfer to facility. No knikwn active medical issues though labs all pending at this time. Review of Systems All systems reviewed & are unremarkable except as noted in HPI and below PFSH Medical History Anxiety Bipolar disorder COPD (chronic obstructive pulmonary disease) GERD (gastroesophageal reflux disease) Hypothyroid Traumatic pneumothorax 2016, chest tube x2 Surgical History History of ankle surgery S/P thoracostomy tube placement Social History Smoking/Tobacco Use Status: Current every day Tobacco Type: cigarettes Smoking risk assessment performed?: Yes Alcohol Intake: never Drug use: Daily Substance use type: marijuana Do you feel safe at home: No (pt states he doesn't feel safe.PT lives alone) Do you feel safe in your relationship?: Yes Meds Home Medications and Allergies Home Medications Medication Instructions Recorded Confirmed Type omeprazole 20 mg PO QAM 10/16/13 04/11/20 History magnesium oxide 400 mg PO QAM 10/20/19 04/11/20 History levothyroxine 75 mcg PO DAILY 12/19/19 04/11/20 History melatonin 6 mg PO HS 12/19/19 04/11/20 History olanzapine 5 mg PO DAILY 12/19/19 04/11/20 History pravastatin 20 mg PO HS 12/19/19 04/11/20 History trazodone 50 mg PO HS 12/19/19 04/11/20 History hydroxyzine pamoate [Vistaril] 25 mg PO TID PRN 04/05/20 04/11/20 History sennosides [senna] 8.6 mg PO BID PRN 04/05/20 04/11/20 History sertraline 100 mg PO DAILY 04/05/20 04/11/20 History Allergies Allergy/AdvReac Type Severity Reaction Status Date / Time Sulfa (Sulfonamide Allergy Severe Swelling/Ed Unverified 04/11/20 03:48 Antibiotics) jostin Exam Narrative Exam Narrative: 130/73, 94, 36.3, 18, 95 % RA. HEENT atraumatic; neck supple; lungs clear; heart RRR; abdomen soft and NT; extremities w/o edema, several rounded shallow ulcers right forearm; neuro Ox3, slightly edgy but pleasant and appropriate, moving all 4s Results Labs Result diagrams: 04/26/20 17:48 04/26/20 18:51 Last Vital Signs Temp 36.3 C L 04/26/20 16:43 Pulse 94 H 04/26/20 16:43 Resp 18 04/26/20 16:43 BP 130/73 04/26/20 16:43 Pulse Ox 95 04/26/20 16:43 COVID-19 Screening Have you, or household traveled for leisure in last 14 days?: No Had IN PERSON contact w/suspected or confirmed C-19 person: No
[2020-04-26] MEDS: OLANZapine 10 MG TAB PO (19:04)
[2020-04-26 19:18] LABS: ALT 47 U/L (16-63); AST 30 U/L (15-37); Albumin 4.2 g/dL (3.4-5.0); Alkaline Phosphatase 132 U/L (46-116); Anion Gap 11.1 mmol/L (3-11); BUN 20 mg/dL (7-18); Bilirubin, Total 0.4 mg/dL (0.2-1.0); CO2 25.9 mmol/L (21.0-32.0); CREATININE 1.12 mg/dL (0.70-1.30); Calcium 9.2 mg/dL (8.5-10.1); Chloride 98 mmol/L (98-107); Glucose 160 mg/dL (74-106); Potassium 3.6 mmol/L (3.5-5.1); Sodium 135 mmol/L (136-145); TSH 4.39 uIU/mL (0.36-3.74); Total Protein 8.3 g/dL (6.4-8.2)
[2020-04-26 19:26] LABS: Source Nasopharynx
[2020-04-26 19:29] LABS: Abs Immature Grans 0.05 10^3/uL (0.0-0.06); Absolute Eosinophil Count 0.07 10^3/uL (0.0-0.7); Absolute Lymphocyte Count 1.66 10^3/uL (1.2-3.4); Basophils % 0.3; Eosinophils % 0.6; HCT 44.5 % (40.0-50.0); HGB 14.4 g/dL (13.5-17.5); Immature Grans % 0.4; Lymphocytes % 14.4; MCH 27.2 pg (27.0-33.0); MCHC 32.4 % (32.0-36.0); MCV 84.1 fL (80-95); Monocytes % 4.3; Nucleated RBC 0 %; Platelet Count 199 10^3/uL (130-400); RBC 5.29 10^6/uL (4.36-5.78); RDW 13.5 % (11.8-14.1); RDW-SD 41.3 fL; WBC 11.55 10^3/uL (4.4-10.8)
[2020-04-26 19:31] LABS: Absolute Basophil Count 0.03 10^3/uL (0.0-0.2); Absolute Neutrophil Count 9.24 10^3/uL (1.2-6.7)
[2020-04-26 19:33] LABS: ETHANOL BLOOD < 3.0 mg/dL (<3)
[2020-04-26 19:37] LABS: Acetaminophen < 2 ug/mL (10-30)
[2020-04-26 20:14] LABS: COVID-19 PCR Negative (Negative); Influenza A PCR Negative (Negative); Influenza B PCR Negative (Negative); RSV PCR Negative (Negative)
[2020-04-26 22:15] VITALS: BP 108/74; PULSE 70; RESP 14; TEMP 35.6; O2SAT 97
[2020-04-26] MEDS: Melatonin 3 MG TAB 6 MG PO (22:21)
[2020-04-26] MEDS: Pravastatin 20 MG TAB PO (22:21)
[2020-04-26] MEDS: traZODone 50 MG TAB PO (22:22)
[2020-04-26 22:50] LABS: Bilirubin Negative (Negative); Blood Negative (Negative); Clarity Clear (Clear); Glucose Negative (Negative); Ketones Negative (Negative); Leukocyte Esterase Negative (Negative); Nitrite Negative (Negative); Specific Gravity 1.015 (1.005-1.025); Urobilinogen 0.2 EU/dL (Up TO 0.2)
--- NOTE | 2020-04-26 23:02 | MHPN_ITS ---
Date of service: 04/26/20 Time of Service: 23:11 Mental Health Progress Note Progress Note Progress Note: Presenting Issue: Client presented to ED today after his EMERGENCY VEHICLE DRIVER piano case and bench assembler requested law enforcement response when client made suicidal statements and threats of self harm. Precipitating Factors Client reports he is done with it all, and he is going to cut himself up with razor blades and a knife. Client states I pray to God every night that he takes me, and asks this technical writer and editor to tell ED providers to give him a lethal injection. Client endorses SI, denies HI. Client refuses inpatient treatment. Disposition * Behavior: Client is oppositional, and is standing in his hospital room during this assessment. Client is articulate but very apathetic toward treatment. *Eye Contact: Client provides good eye contact *Mood: Depressed, oppositional *Affect: Congruent *Appetite: Did not assess *Sleep(troubel falling/staying asleep): Did not assess Plan(please elaborate and include that physician is consulted with plan and/or placement): Client will remain at [facility] on involuntary status. EE sent to [facility] at approximately 2230 hours 04/26/20. Referral made to [facility] [place] [facility], Airn and Rodrigo. Clinician's Name , Title, and Signature Caitlyn Caballero [facility] Make sure that you are photocopying and submitting this to [facility] records Dept. to be scanned into chart.
--- NOTE | 2020-04-26 23:02 | PDOC.MHPN2 ---
Date of service: 04/26/20 Time of Service: 23:11 Mental Health Progress Note Progress Note Progress Note: Presenting Issue: Client presented to ED today after his TAIL [employer]ER nurse case manager requested law enforcement response when client made suicidal statements and threats of self harm. Precipitating Factors Client reports he is done with it all, and he is going to cut himself up with razor blades and a knife. Client states I pray to God every night that he takes me, and asks this ghost writer to tell ED providers to give him a lethal injection. Client endorses SI, denies HI. Client refuses inpatient treatment. Disposition * Behavior: Client is oppositional, and is standing in his hospital room during this assessment. Client is articulate but very apathetic toward treatment. *Eye Contact: Client provides good eye contact *Mood: Depressed, oppositional *Affect: Congruent *Appetite: Did not assess *Sleep(troubel falling/staying asleep): Did not assess Plan(please elaborate and include that physician is consulted with plan and/or placement): Client will remain at [facility] on involuntary status. EE sent to [facility] at approximately 2230 hours 04/26/20. Referral made to [facility] [place], Arin and Rodrigo. Clinician's Name , Title, and Signature Caitlyn Caballero [facility] Make sure that you are photocopying and submitting this to [facility] records Dept. to be scanned into chart.
[2020-04-26 23:05] LABS: *AMPHETAMINES SCREEN URINE Negative (Negative); *BARBITURATES SCREEN URINE Negative (Negative); *BENZODIAZEPINES SCREEN URINE Negative (Negative); Cannabinoids THC POSITIVE (Negative); Cocaine Screen,Urine Negative (Negative); METHADONE URINE SCREEN Negative (Negative); OPIATES URINE SCREEN Negative (Negative)
[2020-04-26 23:08] LABS: Tricyclic Antidepressants Negative (Negative)
[2020-04-27] MEDS: Levothyroxine 75 MCG TAB PO (06:18)
[2020-04-27 06:49] VITALS: BP 115/77; PULSE 69; RESP 14; TEMP 35.8; O2SAT 96
[2020-04-27] MEDS: Sertraline 50 MG TAB 100 MG PO (07:58)
[2020-04-27] MEDS: Omeprazole 20 MG CAPCR PO (07:58)
[2020-04-27] MEDS: OLANZapine 5 MG TAB PO (07:58)
[2020-04-27] MEDS: Magnesium Oxide 400 MG TAB PO (07:58)
[2020-04-27 08:01] VITALS: BP 129/63; PULSE 71; RESP 18; TEMP 36.7; O2SAT 93
--- NOTE | 2020-04-27 08:02 | NUR.NOTE ---
Nursing Note: offered nicotine patch, refused.
--- NOTE | 2020-04-27 11:56 | DSE_ITS ---
Date of service: 04/27/20 Time of Service: 11:56 DS: Diagnosis Discharge Diagnosis (1) Suicidal thoughts: Status: Acute Discharge Plan Disposition Patient Disposition: HOME Condition: Stable Discharge Details Reason For Visit: SUICIDAL Admit Date/Time: 04/26/20 19:10 Admit Provider: Saravanan Pires Attending Provider: Saravanan Pires Primary Care Provider: Fariba Forde Hospital Course Hospital Course: This is a 54 year old male well known to the hospital for multiple psychiatric evaluations/hospitalizations, presents after his mental health worker call 911 to have him brought in for suicidal ideation. plan is to cut himself up in little pieces. He requested lethal injection on arrival to the ED. He has not be compliant with his psychiatric medication and was refusing oral medication here, so a code arita was called and he received IM medication with good effect. He was medically cleared and EE'd for safety, he was admitted to med/surg while awaiting inpatient bed. overnight he rested comfortably. he remained medically stable and compliant with medication and plans. in the am he was released from his EE and discharge plans where placed for outpatient follow up. He is discharged to home with no medication adjustments. discharge discussed with Dr Garvey. Home Meds and New Rx's Prescriptions: Continued omeprazole 20 MG capsule,delayed release(DR/EC) 20 mg PO QAM RF: 0 magnesium oxide 400 mg (241.3 mg magnesium) tablet 400 mg PO QAM RF: 0 sennosides [senna] 8.6 mg Tablet 8.6 mg PO BID PRNRF: 0 sertraline 100 mg Tablet 100 mg PO DAILY RF: 0 hydroxyzine pamoate [Vistaril] 25 mg Capsule 25 mg PO TID PRNRF: 0 trazodone 50 mg tablet 50 mg PO HS RF: 0 olanzapine 5 mg tablet 5 mg PO DAILY RF: 0 melatonin 3 mg tablet 6 mg PO HS RF: 0 levothyroxine 75 mcg tablet 75 mcg PO DAILY RF: 0 pravastatin 20 mg tablet 20 mg PO HS RF: 0 Discharge Instructions Instructions: Suicide Prevention (DC) Additional Instructions: take all your medications as directed. Stand Alone Forms: Nursing Discharge Form Referrals: Anshul Owens [ NON-[facility] STAFF PHYSICIAN] - 04/30/20 11:30 am Activity:: Activity as Tolerated Equipment/Supplies:: No Equipment Needed Diet:: As Tolerated Discharge Orders Discharge Orders: Discharge Order (Routine); Ordered 04/27/20 Ordered By: Maddie Awad Discharge Data Discharge Date/Time-TO BE ENTERED AT DEPARTURE: 04/27/20 14:50 DS: Summary Status at Discharge Functional status at discharge: independent ambulation Overall status at discharge: patient is back to baseline Mental Status: mental status grossly normal Speech and Movement: speech and movement normal Mood: congruent mood Affect: normal affect Exam Narrative Exam Narrative: GEN: awake, alert, oriented 3. well groomed, no acute distress HEAD: Normocephalic, atraumatic ENT: Mucous membranes moist, no drainage or discharge from ears or nose EYES: PERRL, EOMI NECK: supple CHEST/RESP: Nontender, clear to auscultation bilateral, no wheeze/rhonchi/rales CARDIOVASCULAR: RRR, no murmur ABDOMEN: Soft, nontender, no mass. +Bowel sounds EXT: Full ROM, no edema, no rash Neuro: normal neurologic exam, awake oriented no focal deficits Psych: Speech fluent, thoughts congruent, denies suicidal ideation Psych Mental Status: mental status grossly normal Speech and Movement: speech and movement normal Mood: congruent mood Affect: normal affect DS: Data Vitals/I&O Vitals and I&O: Vital Signs Temperature 36.7 C 04/27/20 08:01 Temperature Source Tympanic 04/27/20 08:01 Pulse 71 04/27/20 08:01 Pulse Rhythm Regular 04/27/20 06:15 Respiratory Rate 18 04/27/20 08:01 Respiratory Effort Non-Labored 04/27/20 06:15 Respiratory Depth Normal 04/27/20 06:15 Respiratory Pattern Normal 04/27/20 06:15 Blood Pressure 129/63 04/27/20 08:01 Blood Pressure Position Standing 04/26/20 16:43 Pulse Oximetry 93 04/27/20 08:01 Oxygen Delivery Method Room Air 04/27/20 08:01 Oxygen Flow Rate 0 04/27/20 08:01 Pain Level 0 04/27/20 08:01 Intake & Output 04/26/20 04/26/20 04/27/20 11:59 23:59 11:59 Intake Total 240 / 240 480 / 480 Balance 240 / 240 480 / 480 Intake: Oral 240 / 240 480 / 480 Other: Urine Color Yellow Urine Appearance Clear Voiding Methods Toilet Data Completed and Pending Labs on day of discharge: Labs from last 24 hours 04/26/20 04/26/20 04/26/20 22:25 22:25 19:25 WBC RBC Hgb Hct MCV MCH MCHC RDW Plt Count MPV Immature Gran % Neutrophils % Lymphocytes % Monocytes % Eosinophils % Basophils % Nucleated RBC % Absolute Neutrophils Absolute Lymphocytes Absolute Monocytes Absolute Eosinophils Absolute Basophils Sodium Potassium Chloride Carbon Dioxide Anion Gap BUN Creatinine Estimated GFR/1.73 m2 Glucose Calcium Total Bilirubin AST ALT Alkaline Phosphatase Total Protein Albumin TSH Urine Color Yellow Urine Clarity Clear Urine pH 7.0 Ur Specific [place] 1.015 Urine Protein Negative Urine Ketones Negative Urine Blood Negative Urine Nitrite Negative Urine Bilirubin Negative Urine Urobilinogen 0.2 Ur Leukocyte Esterase Negative Urine Glucose Negative Salicylates Urine Opiates Screen Negative Urine Methadone Screen Negative Acetaminophen Ur Barbiturates Screen Negative Ur Tricyclics Screen Negative Ur Amphetamines Screen Negative U Benzodiazepines Scrn Negative Urine Cocaine Screen Negative Ur THC Screen Positive A Ethyl Alcohol COVID-19 Source Nasopharynx COVID-19 PCR Negative Influenza Type A (PCR) Negative Influenza Type B (PCR) Negative RSV (PCR) Negative 04/26/20 04/26/20 04/26/20 19:10 18:51 18:51 WBC 11.55 H RBC 5.29 Hgb 14.4 Hct 44.5 MCV 84.1 MCH 27.2 MCHC 32.4 RDW 13.5 Plt Count 199 MPV 10.0 Immature Gran % 0.4 Neutrophils % 80.0 Lymphocytes % 14.4 Monocytes % 4.3 Eosinophils % 0.6 Basophils % 0.3 Nucleated RBC % 0 Absolute Neutrophils 9.24 H Absolute Lymphocytes 1.66 Absolute Monocytes 0.50 Absolute Eosinophils 0.07 Absolute Basophils 0.03 Sodium 135 L Potassium 3.6 Chloride 98 Carbon Dioxide 25.9 Anion Gap 11.1 H BUN 20 H Creatinine 1.12 Estimated GFR/1.73 m2 >= 60.00 Glucose 160 H Calcium 9.2 Total Bilirubin 0.4 AST 30 ALT 47 Alkaline Phosphatase 132 H Total Protein 8.3 H Albumin 4.2 TSH 4.39 H Urine Color Urine Clarity Urine pH Ur Specific [place] Urine Protein Urine Ketones Urine Blood Urine Nitrite Urine Bilirubin Urine Urobilinogen Ur Leukocyte Esterase Urine Glucose Salicylates 3.0 Urine Opiates Screen Urine Methadone Screen Acetaminophen < 2 Ur Barbiturates Screen Ur Tricyclics Screen Ur Amphetamines Screen U Benzodiazepines Scrn Urine Cocaine Screen Ur THC Screen Ethyl Alcohol < 3.0 COVID-19 Source COVID-19 PCR Influenza Type A (PCR) Influenza Type B (PCR) RSV (PCR) PFSH Medical History (Updated 04/26/20 @ 19:30 by Jagdish Aleman MD) Anxiety Bipolar disorder COPD (chronic obstructive pulmonary disease) GERD (gastroesophageal reflux disease) Hypothyroid Traumatic pneumothorax 2016, chest tube x2 Surgical History History of ankle surgery S/P thoracostomy tube placement Social History Smoking/Tobacco Use Status: Current every day Tobacco Type: cigarettes Smoking risk assessment performed?: Yes Alcohol Intake: never Drug use: Daily Substance use type: marijuana Do you feel safe at home: No (pt states he doesn't feel safe.PT lives alone) Do you feel safe in your relationship?: Yes
--- NOTE | 2020-04-27 14:26 | CMDISCH_ITS ---
- If Service Date Differs Date of service: 04/27/20 Time of Service: 14:27 LACE Index Scoring Tool - Questions: Length of Stay (in days): 1 Acuity (Admit via E.D.?): Yes E.D. Visits: 8 - Answers: Total Score: 8 Risk of Readmission: Low Risk Care Management Discharge Reason for Hospitalization: SI/HI Discharge Plan: Asim is being discharge home today with continue [employer] supports. He denies HI/SI and feels that he can manage at home. He agrees to take his medications and has requested more supports from [employer]. He states he needs daily check ins with them however due to staffing [facility] has not been able to offer this level of support. [place] spoke with [facility] Jagdish Velázquez and he has determined Asim does not meet the criteria for involuntary status at this point. Jagdish has agreed to increase contact with Asim including ongoing medication management. Asim will be transported home via [facility] [employer] supports. Patient/Family Education Needs: Discharge education, limitations and follow up plan of care. OLIMPIA discussed medication compliance and supports through [facility] with the patient prior to discharge. Asim states he feels safe to return home with ongoing supports from [employer]. - MH Services (Omit if N/A) Current MH Services: [employer]
--- NOTE | 2020-04-27 14:26 | PDOC.CMDIS ---
- If Service Date Differs Date of service: 04/27/20 Time of Service: 14:27 LACE Index Scoring Tool - Questions: Length of Stay (in days): 1 Acuity (Admit via E.D.?): Yes E.D. Visits: 8 - Answers: Total Score: 8 Risk of Readmission: Low Risk Care Management Discharge Reason for Hospitalization: SI/HI Discharge Plan: Asim is being discharge home today with continue [employer] supports. He denies HI/SI and feels that he can manage at home. He agrees to take his medications and has requested more supports from [employer]. He states he needs daily check ins with them however due to staffing [facility] has not been able to offer this level of support. OLIMPIA spoke with [facility] Jagdish Velázquez and he has determined Asim does not meet the criteria for involuntary status at this point. Jagdish has agreed to increase contact with Asim including ongoing medication management. Asim will be transported home via [facility] [employer] supports. Patient/Family Education Needs: Discharge education, limitations and follow up plan of care. OLIMPIA discussed medication compliance and supports through [facility] with the patient prior to discharge. Asim states he feels safe to return home with ongoing supports from [employer]. - MH Services (Omit if N/A) Current MH Services: [employer]
== END 2020-04-27 14:50 | disposition home or self-care (01) ==
LOC: ER 19:30 → MS 20:14
PROVIDERS: Admitting Provider General Practice; Emergency Provider Emergency Medicine; PCP Nurse Practitioner; Visit Provider General Practice
DX: F31.9 Bipolar disorder, unspecified (principal); R45.851 Suicidal ideations; F41.9 Anxiety disorder, unspecified; J44.9 Chronic obstructive pulmonary disease, unspecified; K21.9 Gastro-esophageal reflux disease without esophagitis; E03.9 Hypothyroidism, unspecified; F17.210 Nicotine dependence, cigarettes, uncomplicated; T22.011A Burn of unspecified degree of right forearm, initial encounter; X08.8XXA Exposure to other specified smoke, fire and flames, initial encounter
CPT/HCPCS: 36415; 80053; 80307; 99217; 99221; 99285; 80320; 80329; 81003; 84443; 85025; 99218; 99284; G0378

== ENCOUNTER 2020-04-29 22:58 | Observation (INO) | payer MEDICAID, SELFPAY ==
[2020-04-29 23:01] VITALS: BP 127/89; PULSE 82; RESP 16; TEMP 35.5; O2SAT 94
--- NOTE | 2020-04-29 23:05 | ED.GENADUL_ITS ---
Discharge Plan Disposition Patient Disposition: [facility] INPATIENT Condition: Poor Discharge Details Clinical Impression: Depression with suicidal ideation, Bipolar disorder Primary Care Provider: Fariba Forde ED Provider: Jewel Lackey [facility] New Rx's Prescriptions: No Action omeprazole 20 MG capsule,delayed release(DR/EC) 20 mg PO QAM RF: 0 magnesium oxide 400 mg (241.3 mg magnesium) tablet 400 mg PO QAM RF: 0 sennosides [senna] 8.6 mg Tablet 8.6 mg PO BID PRNRF: 0 sertraline 100 mg Tablet 100 mg PO DAILY RF: 0 hydroxyzine pamoate [Vistaril] 25 mg Capsule 25 mg PO TID PRNRF: 0 trazodone 50 mg tablet 50 mg PO HS RF: 0 olanzapine 5 mg tablet 5 mg PO DAILY RF: 0 melatonin 3 mg tablet 6 mg PO HS RF: 0 levothyroxine 75 mcg tablet 75 mcg PO DAILY RF: 0 pravastatin 20 mg tablet 20 mg PO HS RF: 0 Medical Decision Making Patient was here on the seventh and admitted overnight on an EE. However, released the next day on the eighth. Now returns stating that he just does not wish to live anymore. He seems rather manipulative. Voluntarily came in but will not voluntarily go to psych. Reports that he is already spoke to mental health tonight. Had negative Covid and unremarkable labs on the seventh. Patient interviewed by mental health. Will not consent to voluntary psych admission. Will place on EE, with secondary certification later today. Repeat laboratory studies tonight unremarkable. Urine drug screen is still pending. Covid swab repeated. Continues to remain cooperative. Safety plan in place. CPSO present. Discussed with hospitalist for admission to transition unit. Medical Records Medical records reviewed: Yes I reviewed the patient's medical records. Lab Data Lab results reviewed: Yes I reviewed the patient's lab results. HPI General Mode of arrival: EMS . Date/Time Provider Initiated Documentation: 04/29/20 23:00 . Limitations to Documentation: no limitations . Information obtained by: patient, RN notes reviewed and old records reviewed . HPI Narrative: Patient presents to ED by ambulance for mental health evaluation. Patient was just released from upstairs on the eighth after he was released from an EE. Patient reports that he continues to feel suicidal. He reports that he is not taking his medication, not taking any fluids or food, just wants to fade away. He denies any physical complaints. He has a long psychiatric history. He did smoke marijuana today. Denies other drugs or alcohol. Denies any recent overdose of medications. He did speak to mental health tonight. He did come in here voluntarily, however, it is not clear whether he is going to voluntarily stay for psychiatric admission. He does state that he will refuse any medications, food or fluids. Related Data Home Medications Medication Instructions Recorded Confirmed omeprazole 20 mg PO QAM 10/16/13 04/11/20 magnesium oxide 400 mg PO QAM 10/20/19 04/11/20 levothyroxine 75 mcg PO DAILY 12/19/19 04/11/20 melatonin 6 mg PO HS 12/19/19 04/11/20 olanzapine 5 mg PO DAILY 12/19/19 04/11/20 pravastatin 20 mg PO HS 12/19/19 04/11/20 trazodone 50 mg PO HS 12/19/19 04/11/20 hydroxyzine pamoate [Vistaril] 25 mg PO TID PRN 04/05/20 04/11/20 sennosides [senna] 8.6 mg PO BID PRN 04/05/20 04/11/20 sertraline 100 mg PO DAILY 04/05/20 04/11/20 Allergies Allergy/AdvReac Type Severity Reaction Status Date / Time Sulfa (Sulfonamide Allergy Severe Swelling/Ed Unverified 04/29/20 23:04 Antibiotics) jostin General Stated Complaint: PsychEval ABA: 2 Review of Systems Narrative: 03/03 Review of Systems completed and is negative except as stated above in HPI (Systems reviewed: Const, ENT, Resp, CV, GI, , MSK, Skin, Neuro, Psych) PFSH Medical History Anxiety Bipolar disorder COPD (chronic obstructive pulmonary disease) GERD (gastroesophageal reflux disease) Hypercholesterolemia Hypothyroid Traumatic pneumothorax 2017, chest tube x2 Surgical History History of ankle surgery S/P thoracostomy tube placement Social History Smoking/Tobacco Use Status: Current every day Tobacco Type: cigarettes Smoking risk assessment performed?: Yes Alcohol Intake: never Drug use: Daily Substance use type: marijuana Do you feel safe at home: No (pt states he doesn't feel safe.PT lives alone) Do you feel safe in your relationship?: Yes Exam Narrative Exam Narrative: Const: WDWN male in NAD. HEENT: NC/AT. Normal facial exam. Eyes: Normal conjunctiva and sclera. Neck: Supple. Trachea midline. Lungs: Normal respiratory effort. Lungs are clear. Cor: RRR without murmur/gallop. Good radial pulses. GI: Soft. NT/ND Neuro: A+O x 3. Normal speech, mentation, gait. Cranial nerves II - XII grossly intact. No gross motor or sensory deficit. Ext: No C/C/E. Skin: Warm and dry. Psych: Calm and cooperative at this time. Reports no desire to continue living and plans to just stop eating and drinking and taking medications. Seems quite manipulative. Course Vital Signs Vital signs: Vital Signs Temperature 95.9 F L 04/29/20 23:01 Pulse 82 04/29/20 23:01 Respiratory Rate 16 04/29/20 23:01 Blood Pressure 127/89 04/29/20 23:01 Pulse Oximetry 94 04/29/20 23:01 Temperature 95.9 F L 04/29/20 23:01 Pulse 82 04/29/20 23:01 Respiratory Rate 16 04/29/20 23:01 Blood Pressure 127/89 04/29/20 23:01 Pulse Oximetry 94 04/29/20 23:01 Pain Level 0 04/29/20 23:01
[2020-04-29 23:37] LABS: HCT 45.3 % (40.0-50.0); MCH 27.4 pg (27.0-33.0); MCHC 33.1 % (32.0-36.0); MCV 82.8 fL (80-95); MPV 9.9 fL (8.0-11.0); Platelet Count 222 10^3/uL (130-400); RBC 5.47 10^6/uL (4.36-5.78); RDW 13.4 % (11.8-14.1); RDW-SD 40.2 fL; WBC 14.31 10^3/uL (4.4-10.8)
[2020-04-29 23:51] LABS: ALT 46 U/L (16-63); AST 29 U/L (15-37); Albumin 3.9 g/dL (3.4-5.0); Alkaline Phosphatase 120 U/L (46-116); Anion Gap 10.5 mmol/L (3-11); BUN 16 mg/dL (7-18); Bilirubin, Total 0.5 mg/dL (0.2-1.0); CO2 23.5 mmol/L (21.0-32.0); CREATININE 0.99 mg/dL (0.70-1.30); Calcium 8.9 mg/dL (8.5-10.1); Chloride 100 mmol/L (98-107); Glucose 136 mg/dL (74-106); Potassium 3.2 mmol/L (3.5-5.1); Sodium 134 mmol/L (136-145); Total Protein 8.1 g/dL (6.4-8.2)
[2020-04-29 23:54] LABS: Salicylate 4.2 mg/dL (2.8-20.0)
[2020-04-29 23:59] LABS: ETHANOL BLOOD < 3.0 mg/dL (<3)
--- NOTE | 2020-04-30 | DI.RAD_ITS ---
EXAM: XR PORTABLE CHEST AP CLINICAL HISTORY: leucocytosis, h/o COPD TECHNIQUE: 2D digital imaging was performed. COMPARISON: CR XR CHEST 2V PA LATERAL from 04/01/2019 CR,XR XR PORTABLE CHEST AP from 04/04/2020 FINDINGS: LUNGS: Question of a spiculated mass projecting in the right mid lung field versus overlying structur es or scarring.. No area of consolidation. No pleural abnormality seen. HEART: Normal. MEDIASTINUM: Normal. BONES: Mild degenerative changes in the spine. Old right 10th rib fracture. IMPRESSION: Question of a mass in the right mid lung. No evidence of pneumonia. CT is recommended for further e valuation. DATA REPOSITORY: RADIATION DOSE DELIVERED:
[2020-04-30 00:03] LABS: Acetaminophen < 2 ug/mL (10-30)
--- NOTE | 2020-04-30 00:37 | PDOC.CMSAFED ---
- If Service Date Differs Date of service: 04/30/20 Time of Service: 00:37 Care Management Safety Plan Chief Complaint: Asim is a 54 year old male with a long psychiatric history and multiple hospitalizations for suicidal ideation. Asim was at [facility] for SI a few days ago and was discharged home on April 27, 2020. He returns today again reporting suicidal thoughts, stating he plans on refusing medications, food, and fluids, and per ED provider, he just wants to fade away. While being evaluated by Tamie [facility] crisis screener, he additionally threatens to jump in front of a moving car. Asim presents voluntarily to [facility] but is unwilling to agree to a psych placement. He, therefore, is placed on involuntary status. INVOLUNTARY FOR INPATIENT PSYCHIATRIC STABILIZATION. Safety plan has been established to meet the needs of the patient, and consideration of the care team, to adhere to patient goals, identify restrictions based on behavioral status, address nutrition, and determine allowed personal belongings, tools for hygiene and personal care; determine level of activity including ambulation, level of supervision, visitors, and determine privileges based on behaviors and level of engagement by patient. SAFETY PLAN: 1. Will remain on SI/HI precautions. In Paper Clothes 2. Will remain in room under direct supervision of one-on-one staff at all times provided by CPSO; DONTAE, TILE APPLICATOR library services coordinator. 3. May have paper cups, plates, finger foods as well as a metal spoon for meals to be accounted for upon meal completion 4. Follow [facility] Management of the Admitted Behavioral Health Patient policy. 5. Comfort wipes, shower at the discretion of primary care team with appropriate supervision 6. Personal belongings: Eye glasses permitted. 7. Visitors: No visitors per [facility]/COVID policy 8. Activities: Television, remote, coloring, paper, soft tip markers, reading material permitted if following expectations; at RN discretion. 9. Bathroom privileges with supervision in ED, available in room without limitation on Med/Surg. 10. Phone: No phone privileges at this time. 11. Due to INVOLUNTARY status, patient is being held at [facility] by the Department of Mental Health (DM) until 2nd certification by [facility] Psychiatrist can be performed (within 24 hours). Staff will provide de-escalation support (CPI) as needed. If patient wishes to leave [facility], staff will contact [facility] Crisis Screener ([phone]) and On-Call Boiler Technician ([phone]) as soon as possible. In the event of elopement, notify [facility] Police ([phone]). Patient is currently involuntarily at [facility]. [facility] Frontline Oxygen Equipment Aide will continue seeking placement. Please contact the Wet Finisher Wool Boiler Technician ([phone]) for any needed changes to Safety Plan. Safety plan has been provided to interdepartmental care team.
[2020-04-30 01:16] LABS: Source Nasopharynx
[2020-04-30 01:44] LABS: *AMPHETAMINES SCREEN URINE Negative (Negative); *BARBITURATES SCREEN URINE Negative (Negative); *BENZODIAZEPINES SCREEN URINE Negative (Negative); Cannabinoids THC POSITIVE (Negative); Cocaine Screen,Urine Negative (Negative); METHADONE URINE SCREEN Negative (Negative); OPIATES URINE SCREEN Negative (Negative)
[2020-04-30 01:45] LABS: Tricyclic Antidepressants Negative (Negative)
[2020-04-30 02:26] LABS: COVID-19 PCR Negative (Negative); Influenza A PCR Negative (Negative); Influenza B PCR Negative (Negative); RSV PCR Negative (Negative)
[2020-04-30 02:40] VITALS: BP 109/73; PULSE 77; RESP 16; TEMP 36.5; O2SAT 94
--- NOTE | 2020-04-30 06:59 | W.PM.HP.N ---
Date of service: 04/30/20 Time of Service: 06:59 Assessment and Plan Assessment and plan (1) Suicidal ideations: Status: Acute Assessment and plan: Mental health consulted. Patient is being observed under EE status. Continue suicide precautions. CPSO in place. Encourage voluntary taking of medications. (2) Uncooperative behavior: Status: Acute Assessment and plan: As above (3) Leukocytosis: Status: Chronic Assessment and plan: Chronic. No evidence of active disease. Given h/o COPD, I will obtain a CXR. He has no urinary complaints and had a negative UA on 04/26/2020. (4) Hypokalemia: Status: Acute Assessment and plan: Repletion ordered, but patient refuses. (5) Hypothyroid: Status: Chronic Assessment and plan: Add on TSH ordered For now, continuation of home dose of levothyroxine is ordered Qualifiers: Hypothyroidism type: acquired Qualified Code(s): E03.9 - Hypothyroidism, unspecified (6) Tobacco abuse: Status: Acute Assessment and plan: Provide nicotine replacement. (7) Discharge planning issues: Status: Acute Assessment and plan: Observation status under EE. (8) DVT prophylaxis: Status: Acute Assessment and plan: SC lovenox History of Present Illness History of Present Illness Chief Complaint: I've given up Narrative: Mr Hampton is a 54 year old male with PMHx of Bipolar d/o, depression with prior episodes of suicidal ideation and, per patient, prior suicide attempts, as well as anxiety, COPD, and medical noncompliance who was discharged from our facility on 04/27/2020 after initial admission for suicidal ideation under EE status, who was brought to [facility] ED today by the police at the request of mental health, whom the patient had contacted reporting suicidal ideation. He had not been taking his medications as an outpatient. The patient states that his plan for suicide right now is not to take any of his medications and no to eat or drink. He has refused all medications and is refusing IVF. He feels thirsty, but is determined not to drink. He denies homicidal ideation. He was evaluated by mental health in the ED and was felt, again, to necessitate EE status. The patient has not been combative or agitated since arrival to the hospital. He denies any potential exposures or symptoms of COVID-19. His ED workup revealed his chronic leucocytosis (WBC of 14), potassium of 3.2 (patient has refused repletion), and a UDS positive for THC only. Review of Systems All systems reviewed & are unremarkable except as noted in HPI and below PFSH Medical History Anxiety Bipolar disorder COPD (chronic obstructive pulmonary disease) GERD (gastroesophageal reflux disease) Hypercholesterolemia Hypothyroid Traumatic pneumothorax 2016, chest tube x2 Surgical History History of ankle surgery S/P thoracostomy tube placement Social History Smoking/Tobacco Use Status: Current every day Tobacco Type: cigarettes Smoking risk assessment performed?: Yes Alcohol Intake: never Drug use: Daily Substance use type: marijuana Do you feel safe at home: No (pt states he doesn't feel safe.PT lives alone) Do you feel safe in your relationship?: Yes Meds Home Medications and Allergies Home Medications Medication Instructions Recorded Confirmed Type omeprazole 20 mg PO QAM 10/16/13 04/11/20 History magnesium oxide 400 mg PO QAM 10/20/19 04/11/20 History levothyroxine 75 mcg PO DAILY 12/19/19 04/11/20 History melatonin 6 mg PO HS 12/19/19 04/11/20 History olanzapine 5 mg PO DAILY 12/19/19 04/11/20 History pravastatin 20 mg PO HS 12/19/19 04/11/20 History trazodone 50 mg PO HS 12/19/19 04/11/20 History hydroxyzine pamoate [Vistaril] 25 mg PO TID PRN 04/05/20 04/11/20 History sennosides [senna] 8.6 mg PO BID PRN 04/05/20 04/11/20 History sertraline 100 mg PO DAILY 04/05/20 04/11/20 History Allergies Allergy/AdvReac Type Severity Reaction Status Date / Time Sulfa (Sulfonamide Allergy Severe Swelling/Ed Unverified 04/29/20 23:04 Antibiotics) jostin Exam Narrative Exam Narrative: General: Pleasant unkempt middle-aged male, asleep, easily arousable, interactive and answers questions appropriately, not combative Neurological: A&Ox3, no focal deficits Psychiatric: Resistant to permit care, flat affect, but cooperative. +SI, -HI Skin: Visible skin intact HEENT: Atraumatic, normocephalic, EOMI, dry MM, clear oropharynx, no submandibular or cervical lymphadenopathy, no JVD Cardiovascular: RRR, no m/r/g Lungs: CTAB Gastrointestinal: soft, nontender, nondistended Genitourinary: deferred Extremities: no e/c/c BLE's Results Labs Result diagrams: 04/29/20 23:30 04/29/20 23:30 Labs: Laboratory Results - last 24 hr 04/29/20 04/29/20 04/29/20 23:30 23:30 23:30 WBC 14.31 H RBC 5.47 Hgb 15.0 Hct 45.3 MCV 82.8 MCH 27.4 MCHC 33.1 RDW 13.4 Plt Count 222 MPV 9.9 Sodium 134 L Potassium 3.2 L Chloride 100 Carbon Dioxide 23.5 Anion Gap 10.5 BUN 16 Creatinine 0.99 Estimated GFR/1.73 m2 >= 60.00 Glucose 136 H Calcium 8.9 Total Bilirubin 0.5 AST 29 ALT 46 Alkaline Phosphatase 120 H Total Protein 8.1 Albumin 3.9 Salicylates 4.2 Urine Opiates Screen Urine Methadone Screen Acetaminophen < 2 Ur Barbiturates Screen Ur Tricyclics Screen Ur Amphetamines Screen U Benzodiazepines Scrn Urine Cocaine Screen Ur THC Screen Ethyl Alcohol < 3.0 COVID-19 Source SARS-CoV-2 (PCR) Influenza Type A (PCR) Influenza Type B (PCR) RSV (PCR) 04/30/20 04/30/20 01:00 01:10 WBC RBC Hgb Hct MCV MCH MCHC RDW Plt Count MPV Sodium Potassium Chloride Carbon Dioxide Anion Gap BUN Creatinine Estimated GFR/1.73 m2 Glucose Calcium Total Bilirubin AST ALT Alkaline Phosphatase Total Protein Albumin Salicylates Urine Opiates Screen Negative Urine Methadone Screen Negative Acetaminophen Ur Barbiturates Screen Negative Ur Tricyclics Screen Negative Ur Amphetamines Screen Negative U Benzodiazepines Scrn Negative Urine Cocaine Screen Negative Ur THC Screen Positive A Ethyl Alcohol COVID-19 Source Nasopharynx SARS-CoV-2 (PCR) Negative Influenza Type A (PCR) Negative Influenza Type B (PCR) Negative RSV (PCR) Negative Last Vital Signs Temp 36.5 C 04/30/20 02:40 Pulse 77 04/30/20 02:40 Resp 16 04/30/20 02:40 BP 109/73 04/30/20 02:40 Pulse Ox 94 04/30/20 02:40 COVID-19 Screening Have you, or household traveled for leisure in last 14 days?: No Had IN PERSON contact w/suspected or confirmed C-19 person: No
[2020-04-30 07:42] LABS: TSH 7.65 uIU/mL (0.36-3.74)
[2020-04-30 07:53] VITALS: BP 107/71; PULSE 75; RESP 18; TEMP 36.7; O2SAT 95
--- NOTE | 2020-04-30 09:10 | PDOC.MHCN_ITS ---
Date of service: 04/30/20 Time of Service: 12:00 Mental Health Crisis Note Presenting Issue How did you arrive at the ED and why did you come: Asim arrived to the ER via ambulance after he would not contract for safety with this typewriters functional tester via phone. Precipitating Factors Asim stated he was going to stop eating, drinking and taking his medications and that was how he was going to kill himself because he was done with life. I informed him this was not imminent enough for an EE, which is what he is seeking, so he then said good let me go and see. When I asked him what he would do he said he maybe I'll walk in front of a car, jump off a bridge or just freeze to . Disposition BEHAVIOR: Asim is manipulative and behaving rudely, and avoiding/refusing any kind of safety planning. He is ultimately disrespectful and I am not 100 percent sure he is truly suicidal however, he is making a great effort to not return home. EYE CONTACT: Poor eye contact as he immediately shuts down and lays down in his bed and covers his head. When he does sit up he says the conversation is done and walks the tablet back out to the nurse ending the call. MOOD: Asim is angry, disrespectful and rude. AFFECT: Asim's affect is angry and non engaging. APPETITE: Not assessed. SLEEP(trouble falling/staying asleep: Not assessed. Plan Asim was placed on EE status which seems to be what he seeks. He gets some sort of enjoyment out of this. I communicated with Jeimy Rooney for the safety planning piece as well as Dr. Lackey to request his portion of the EE. and [facility] will accept referrals in the am. [facility] notified and all paperwork sent to them. Signature Clinician's Name/Title: Tamie Mccord MS, [facility] Emergency Services Clinician
--- NOTE | 2020-04-30 13:45 | PDOC.CMPRO ---
- If Service Date Differs Date of service: 04/30/20 Time of Service: 13:45 Care Management Progress Note S/O: Asim is laying in bed when CM comes to meet with him. He is pleasant but his affect is flat and he appears tired. He answers questions asked of him but his answers are brief which is unusual for him. This commercial insurance underwriter has known Asim for many years and I have never known him to be this quiet. He reports sleeping fairly well last night. Per nursing staff, he has been refusing to take medications and is also refusing nourishment. Asim says he is not doing well and he is done with life. He met with Jagdish [facility] FRONT OFFICE SECRETARY housing case manager, via zoom earlier this morning for a reassessment and was found to continue to meet EE criteria. CM will continue to follow. A: Asim is a 54 year old male who remains at [facility] awaiting an involuntary psych placement. P: Anticipate a Second Certification by Psychiatrist will be done at some point this evening. Asim will remain at [facility] on involuntary status while [facility] continues to seek a placement for him. Referrals have been faxed to [facility], [facility], and [facility] for review. CM will continue to follow.
--- NOTE | 2020-04-30 14:04 | CMSP_ITS ---
- If Service Date Differs Date of service: 04/30/20 Time of Service: 14:05 Care Management Safety Plan INVOLUNTARY FOR INPATIENT PSYCHIATRIC STABILIZATION. Safety plan is discussed with Rizwana, nursing supervisor pig machine, and SEAMUS Serra. Safety plan has been established to meet the needs of the patient, and consideration of the care team, to adhere to patient goals, identify restrictions based on behavioral status, address nutrition, and determine a llowed personal belongings, tools for hygiene and personal care; determine level of activity including ambulation, level of supervision, visitors, and determine privileges based on behaviors and level of engagement by patient. SAFETY PLAN: 1. Will remain on SI/HI precautions. In Paper Clothes 2. Will remain in room under direct supervision of one-on-one staff at all times provided by CPSO; DONTAE, JARRETT clinical care coordinator. 3. May have paper cups, plates, finger foods as well as a metal spoon for meals to be accounted for upon meal completion 4. Follow [facility] Management of the Admitted Behavioral Health Patient policy. 5. Comfort wipes, shower at the discretion of primary care team with appropriate supervision 6. Personal belongings: Eye glasses permitted. 7. Visitors: No visitors per [facility] policy 8. Activities: Television, remote, coloring, paper, soft tip markers, reading material permitted if following expectations; at RN discretion. 9. Bathroom privileges with supervision in ED, available in room without limitation on Med/Surg. 10. Phone: No phone privileges at this time. 11. Due to INVOLUNTARY status, patient is being held at [facility] by the Department of Mental Health ([facility]) until 2nd certification by [facility] Psychiatrist can be performed (within 24 hours). Staff will provide de-escalation support (CPI) as needed. If patient wishes to leave [facility], staff will contact [facility] Crisis Screener ([phone]) and On-Call Special Deputy Sheriff ([phone]) as soon as possible. In the event of elopement, notify [place] State Police ([phone]). Patient is currently involuntarily at [facility]. [facility] Frontline Medical Billing Supervisor will continue seeking placement. Please contact the Pharmaceutical Laboratory Technician Special Deputy Sheriff ([phone]) for any needed changes to Safety Plan. Safety plan has been provided to interdepartmental care team.
--- NOTE | 2020-04-30 14:04 | PDOC.CMSAFE ---
- If Service Date Differs Date of service: 04/30/20 Time of Service: 14:05 Care Management Safety Plan INVOLUNTARY FOR INPATIENT PSYCHIATRIC STABILIZATION. Safety plan is discussed with Rizwana, nursing facility maintenance supervisor, and SEAMUS Serra. Safety plan has been established to meet the needs of the patient, and consideration of the care team, to adhere to patient goals, identify restrictions based on behavioral status, address nutrition, and determine allowed personal belongings, tools for hygiene and personal care; determine level of activity including ambulation, level of supervision, visitors, and determine privileges based on behaviors and level of engagement by patient. SAFETY PLAN: 1. Will remain on SI/HI precautions. In Paper Clothes 2. Will remain in room under direct supervision of one-on-one staff at all times provided by CPSO; DONTAE, JARRETT subsorter. 3. May have paper cups, plates, finger foods as well as a metal spoon for meals to be accounted for upon meal completion 4. Follow [facility] Management of the Admitted Behavioral Health Patient policy. 5. Comfort wipes, shower at the discretion of primary care team with appropriate supervision 6. Personal belongings: Eye glasses permitted. 7. Visitors: No visitors per [facility] policy 8. Activities: Television, remote, coloring, paper, soft tip markers, reading material permitted if following expectations; at RN discretion. 9. Bathroom privileges with supervision in ED, available in room without limitation on Med/Surg. 10. Phone: No phone privileges at this time. 11. Due to INVOLUNTARY status, patient is being held at [facility] by the Department of Mental Health ([facility]) until 2nd certification by [facility] Psychiatrist can be performed (within 24 hours). Staff will provide de-escalation support (CPI) as needed. If patient wishes to leave [facility], staff will contact [facility] Crisis Screener ([phone]) and On-Call Scientific Recruiter ([phone]) as soon as possible. In the event of elopement, notify [place] State Police ([phone]). Patient is currently involuntarily at [facility]. [facility] Frontline Fire Protection Designer will continue seeking placement. Please contact the Motocross Racer Scientific Recruiter ([phone]) for any needed changes to Safety Plan. Safety plan has been provided to interdepartmental care team.
--- NOTE | 2020-04-30 16:37 | W.PM.PROGNOT ---
Date of Service Date of service: 04/30/20 Time of Service: 16:37 Assessment and Plan Assessment and plan (1) Suicidal ideations: Status: Acute Assessment and plan: Mental health consulted. Patient is being observed under EE status. Continue suicide precautions. CPSO in place. Encourage voluntary taking of medications. (2) Uncooperative behavior: Status: Acute Assessment and plan: As above (3) Leukocytosis: Status: Chronic Assessment and plan: Chronic. No evidence of active disease. Given h/o COPD, I will obtain a CXR. He has no urinary complaints and had a negative UA on 04/26/2020. (4) Hypokalemia: Status: Acute Assessment and plan: Repletion ordered, but patient refuses. (5) Hypothyroid: Status: Chronic Assessment and plan: Add on TSH ordered For now, continuation of home dose of levothyroxine is ordered Qualifiers: Hypothyroidism type: acquired Qualified Code(s): E03.9 - Hypothyroidism, unspecified (6) Tobacco abuse: Status: Acute Assessment and plan: Provide nicotine replacement. (7) Discharge planning issues: Status: Acute Assessment and plan: Observation status under EE. (8) DVT prophylaxis: Status: Acute Assessment and plan: SC lovenox discussed with DR Fink Subjective Subjective Patient reports: no new complaints Interval history since last seen: awaiting placement. no behavioral issues other than refusing to take his medication Exam Const General: cooperative, comfortable and no acute distress Nutritional Appearance: average body habitus Orientation: alert, awake and oriented x3 HENMT Head: normal to inspection, normocephalic and atraumatic Resp Effort & Inspection: normal respiratory effort Cardio Rate: regular rate Rhythm: regular rhythm Neuro General: patient alert, patient awake and moves all extremities Extrem General: normal to inspection and full ROM Objective Last Vital Signs Temp 36.7 C 04/30/20 07:53 Pulse 75 04/30/20 07:53 Resp 18 04/30/20 07:53 BP 107/71 04/30/20 07:53 Pulse Ox 95 04/30/20 07:53 Laboratory Results - last 24 hr 04/29/20 04/29/20 04/29/20 23:30 23:30 23:30 WBC 14.31 H RBC 5.47 Hgb 15.0 Hct 45.3 MCV 82.8 MCH 27.4 MCHC 33.1 RDW 13.4 Plt Count 222 MPV 9.9 Sodium 134 L Potassium 3.2 L Chloride 100 Carbon Dioxide 23.5 Anion Gap 10.5 BUN 16 Creatinine 0.99 Estimated GFR/1.73 m2 >= 60.00 Glucose 136 H Calcium 8.9 Total Bilirubin 0.5 AST 29 ALT 46 Alkaline Phosphatase 120 H Total Protein 8.1 Albumin 3.9 TSH 7.65 H Salicylates 4.2 Urine Opiates Screen Urine Methadone Screen Acetaminophen < 2 Ur Barbiturates Screen Ur Tricyclics Screen Ur Amphetamines Screen U Benzodiazepines Scrn Urine Cocaine Screen Ur THC Screen Ethyl Alcohol < 3.0 COVID-19 Source SARS-CoV-2 (PCR) Influenza Type A (PCR) Influenza Type B (PCR) RSV (PCR) 04/30/20 04/30/20 01:00 01:10 WBC RBC Hgb Hct MCV MCH MCHC RDW Plt Count MPV Sodium Potassium Chloride Carbon Dioxide Anion Gap BUN Creatinine Estimated GFR/1.73 m2 Glucose Calcium Total Bilirubin AST ALT Alkaline Phosphatase Total Protein Albumin TSH Salicylates Urine Opiates Screen Negative Urine Methadone Screen Negative Acetaminophen Ur Barbiturates Screen Negative Ur Tricyclics Screen Negative Ur Amphetamines Screen Negative U Benzodiazepines Scrn Negative Urine Cocaine Screen Negative Ur THC Screen Positive A Ethyl Alcohol COVID-19 Source Nasopharynx SARS-CoV-2 (PCR) Negative Influenza Type A (PCR) Negative Influenza Type B (PCR) Negative RSV (PCR) Negative
--- NOTE | 2020-04-30 17:16 | PDOC.CMSAFE ---
- If Service Date Differs Date of service: 04/30/20 Time of Service: 17:16 Care Management Safety Plan Chief complaint: Asim meets with Dr. Rivas, state psychiatrist, for the Second Certification by Psychiatrist. She walks him off of the EE as he admits having thoughts of hurting himself but denies any intent to act on the thoughts. Asim is currently remaining at [facility] on VOLUNTARY status while [facility] MANAGER IT TRAINING seeks placement for him. VOLUNTARY FOR INPATIENT PSYCHIATRIC STABILIZATION. Patient is appropriate in all interactions since arriving at [facility]; Pt has demonstrated appropriate coping and communication skills, has articulated his needs and concerns and is fully engaged during staff interactions. Safety plan has been established with patient, and care team, to adhere to patient goals, identify restrictions based on behavioral status, address nutrition, and determine allowed personal belongings, tools for hygiene and personal care. Determine level of activity including ambulation, level of supervision, visitors, and determine privileges based on behaviors and level of engagement by pt. SAFETY PLAN: 1. Will remain on suicide precautions. In Paper Clothes 2. Will remain in room under direct supervision of one-on-one staff at all times provided by [employer]; DONTAE, OUTSIDE MACHINIST crusher loader operator. 3. May have paper cups, plates, finger foods as well as a metal spoon with which to eat meals to be accounted for upon meal completion by staff. 4. Follow [facility] Management of the Admitted Behavioral Health Patient policy. 5. Comfort wipes, shower at the discretion of primary care team with appropriate supervision. 6. Personal belongings: Eye glasses permitted. 7. Visitors-No visitors per [facility] policy. 8. Activities: Television, remote, coloring, paper, soft tip markers, reading material permitted if following expectations; at RN discretion. 9. Bathroom privileges available in room without limitation on Med/Surg. 10. Phone: No phone privileges at this time. 11. Due to VOLUNTARY status, if patient wishes to leave [facility], staff will contact the [facility] Crisis Screener ([phone]) and On-Call Door Slinger ([phone]) as soon as possible. Patient is currently voluntarily at [facility] and seeking inpatient admission when a bed becomes available. [facility] Frontline Licensed Mental Health Counselor will continue seeking placement. Please contact the Programmer Numerical Control Door Slinger ([phone]) and [facility] Licensed Mental Health Counselor ([phone]) for any needed changes in the Safety Plan. Safety plan has been provided to interdepartmental care team.
[2020-04-30] MEDS: Melatonin 3 MG TAB 6 MG PO (21:55)
[2020-04-30] MEDS: traZODone 50 MG TAB PO (21:55)
[2020-04-30] MEDS: Pravastatin 20 MG TAB PO (21:55)
[2020-05-01] MEDS: Magnesium Oxide 400 MG TAB PO (08:37)
[2020-05-01] MEDS: Sertraline 50 MG TAB 100 MG PO (08:37)
[2020-05-01] MEDS: Levothyroxine 75 MCG TAB PO (08:37)
[2020-05-01] MEDS: OLANZapine 5 MG TAB PO (08:37)
[2020-05-01] MEDS: Omeprazole 20 MG CAPCR PO (08:37)
--- NOTE | 2020-05-01 09:18 | CMDISCH_ITS ---
- If Service Date Differs Date of service: 05/01/20 Time of Service: 09:18 LACE Index Scoring Tool - Questions: Length of Stay (in days): 3 Acuity (Admit via E.D.?): Yes E.D. Visits: 6 - Answers: Total Score: 10 Risk of Readmission: High Risk Care Management Discharge Reason for Hospitalization: SI/HI Discharge Plan: Asim is being discharged home today, he is asking to leave. His second certification from [facility] provider was not approved and he is now in voluntary status. [facility] contacted PROCESSING ENGINEER provider and requested close follow up with [facility] over the weekend and resumption of his community services. PROCESSING ENGINEER pillowcase cutter will arrive to the hospital to leave off some of his belongings including his blister pack medication for this evening, and his check. Asim will be transported by [facility] coordinated by [facility]. Patient/Family Education Needs: Discharge edcuation, limitations and follow up plan of care. - MH Services (Omit if N/A) Current MH Services: PROCESSING ENGINEER
--- NOTE | 2020-05-01 09:33 | W.PM.DS.N ---
Date of service: 05/01/20 Time of Service: 09:39 DS: Diagnosis Discharge Diagnosis (1) Suicidal ideations: Start date: 05/01/20 Start time: 09:41 Status: Acute Asessment and Plan: MH consulted. Second cert, recommend discharge, patient no suicidal, though he does have behavioral issues. This is thought to be more behavior related, therefore he is going home. (2) Uncooperative behavior: Start date: 05/01/20 Start time: 09:41 Status: Resolved Asessment and Plan: Cooperative agreeable to discharge (3) Leukocytosis: Start date: 05/01/20 Start time: 09:41 Status: Chronic Asessment and Plan: Chronic, no evidence of disease (4) Hypokalemia: Start date: 05/01/20 Start time: :41 Status: Resolved Asessment and Plan: Repleted (5) Hypothyroid: Start date: 05/01/20 Start time: 09:40 Status: Chronic Asessment and Plan: continue levothyroxine (6) Tobacco abuse: Start date: 05/01/20 Start time: 09:40 Status: Acute Asessment and Plan: No interest in cessation above case discussed with Dr. Omer who is in agreement Discharge Plan Disposition Patient Disposition: HOME Condition: Stable Discharge Details Reason For Visit: SUICIDAL IDEATION Admit Date/Time: 04/30/20 01:33 Admit Provider: Kristen Brennan Attending Provider: Kristen Brennan Primary Care Provider: Fariba Forde [facility] Course Hospital Course: Mr Hampton is a 54 year old male with PMHx of Bipolar d/o, depression with prior episodes of suicidal ideation and, per patient, prior suicide attempts, as well as anxiety, COPD, and medical noncompliance who was discharged from our facility on 04/27/2020 after initial admission for suicidal ideation under EE status, who was brought to [facility] ED on 04/30 by the police at the request of mental health, whom the patient had contacted reporting suicidal ideation. He had not been taking his medications as an outpatient. He was evaluated by mental health in the ED and was felt, again to have EE, however with second cert by and psychiatry he was found to be behavorial and not requiring admission facility. The patient has not been combative or agitated since arrival to the hospital. He denies any potential exposures or symptoms of COVID-19. His ED workup revealed his chronic leucocytosis (WBC of 14), potassium of 3.2 , and a UDS positive for THC only. He is being discharged home. Home Meds and New Rx's Prescriptions: Continued omeprazole 20 MG capsule,delayed release(DR/EC) 20 mg PO QAM RF: 0 magnesium oxide 400 mg (241.3 mg magnesium) tablet 400 mg PO QAM RF: 0 sennosides [senna] 8.6 mg Tablet 8.6 mg PO BID PRNRF: 0 sertraline 100 mg Tablet 100 mg PO DAILY RF: 0 hydroxyzine pamoate [Vistaril] 25 mg Capsule 25 mg PO BID RF: 0 trazodone 50 mg tablet 50 mg PO HS RF: 0 olanzapine 5 mg tablet 5 mg PO DAILY RF: 0 melatonin 3 mg tablet 6 mg PO HS RF: 0 levothyroxine 75 mcg tablet 75 mcg PO DAILY RF: 0 pravastatin 20 mg tablet 20 mg PO HS RF: 0 Discharge Instructions Instructions: Mood Disorders (DC), Anxiety (DC) Additional Instructions: Take all patient medication Consider quitting smoking Follow up with outpatient resources. Follow up with PCP and Pulmonary, in 1-2 weeks there is a questionable lung mass on right mid lung, you will need follow up for further testing of this mass. Stand Alone Forms: Nursing Discharge Form Referrals: Fariba Forde [Primary Care Provider] - (Please call Sunday to make a follow up appointment. ) Activity:: Activity as Tolerated Equipment/Supplies:: No Equipment Needed Diet:: As Tolerated Discharge Orders Discharge Orders: Discharge Order (Routine); Ordered 05/01/20 Ordered By: Payal Landry DS: Summary Status at Discharge Functional status at discharge: independent ambulation Overall status at discharge: patient is back to baseline Mental Status: mental status grossly normal Speech and Movement: speech and movement normal Mood: congruent mood Affect: labile affect Exam Narrative Exam Narrative: General: Pleasant unkempt middle-aged male, asleep, easily arousable, interactive and answers questions appropriately, not combative Neurological: A&Ox3, no focal deficits Psychiatric: Resistant to permit care, flat affect, but cooperative. +SI, -HI Skin: Visible skin intact HEENT: Atraumatic, normocephalic, EOMI, dry MM, clear oropharynx, no submandibular or cervical lymphadenopathy, no JVD Cardiovascular: RRR, no m/r/g Lungs: CTAB Gastrointestinal: soft, nontender, nondistended Genitourinary: deferred Extremities: no e/c/c BLE's Psych Mental Status: mental status grossly normal Speech and Movement: speech and movement normal Mood: congruent mood Affect: labile affect DS: Data Vitals/I&O Vitals and I&O: Vital Signs Temperature 36.7 C 04/30/20 07:53 Temperature Source Tympanic 04/30/20 07:53 Pulse 75 04/30/20 07:53 Pulse Rhythm Regular 04/30/20 22:00 Respiratory Rate 18 04/30/20 07:53 Respiratory Effort Non-Labored 05/01/20 05:30 Respiratory Depth Normal 05/01/20 05:30 Respiratory Pattern Normal 05/01/20 05:30 Blood Pressure 107/71 04/30/20 07:53 Pulse Oximetry 95 04/30/20 07:53 Oxygen Delivery Method Room Air 04/30/20 07:53 Oxygen Flow Rate 0 04/30/20 07:53 Pain Level 0 04/30/20 07:53 Intake & Output 04/30/20 04/30/20 05/01/20 11:59 23:59 11:59 Intake Total 0 / 0 Balance 0 / 0 Intake: Oral 0 / 0 Other: Urine Color Yellow Urine Appearance Clear Comment PT ABLE TO VOID PRN IN BR IN ROOM patient is medically cleared and independant in room Voiding Methods Toilet Toilet Data Completed and Pending Completed studies during hospitalization [Text1]: Exam(s) a RAD:XR portable chest AP EXAM: XR PORTABLE CHEST AP CLINICAL HISTORY: leucocytosis, h/o COPD TECHNIQUE: 2D digital imaging was performed. COMPARISON: CR XR CHEST 2V PA LATERAL from 04/01/2019 CR,XR XR PORTABLE CHEST AP from 04/04/2020 FINDINGS: LUNGS: Question of a spiculated mass projecting in the right mid lung field versus overlying structures or scarring.. No area of consolidation. No pleural abnormality seen. HEART: Normal. MEDIASTINUM: Normal. BONES: Mild degenerative changes in the spine. Old right 10th rib fracture. IMPRESSION: Question of a mass in the right mid lung. No evidence of pneumonia. CT is recommended for further evaluation. [facility] Medical History Anxiety Bipolar disorder COPD (chronic obstructive pulmonary disease) GERD (gastroesophageal reflux disease) Hypercholesterolemia Hypothyroid Traumatic pneumothorax 2016, chest tube x2 Surgical History History of ankle surgery S/P thoracostomy tube placement Social History Smoking/Tobacco Use Status: Current every day Tobacco Type: cigarettes Smoking risk assessment performed?: Yes Alcohol Intake: never Drug use: Daily Substance use type: marijuana Do you feel safe at home: No (pt states he doesn't feel safe.PT lives alone) Do you feel safe in your relationship?: Yes
--- NOTE | 2020-05-02 09:20 | PDOC.MHCN ---
Date of service: 04/30/20 Time of Service: 16:00 Mental Health Crisis Note Presenting Issue How did you arrive at the ED and why did you come: Patient arrived via [facility] presenting with S/I and a plan. He was screened and placed on Involuntary Status. Precipitating Factors Patient has present frequently over the last few weeks. This was the third EE, in the less than a month. The the patient went to [facility] for 3 days on the 1st EE and dischared home. He was walked off the second EE on the and discharged home. During the Second Certification by Dr. Rivas from [facility] she could not find sufficient reason to approve the second certification and it was not approved. Patient was given the option for voluntary placement and did not make a decision at that time. He denied S/I and H/I. Reported not eating or drinking for 3 days, and VH. Disposition BEHAVIOR: Patient was calm, unable to maintain eye contact for very long. He was still refusing medications and food. Patient claimed he was lonely. EYE CONTACT: Patient was unable to maintain eye contact. MOOD: Depressed with signs of fatigue and expressions of hopelessness. AFFECT: Flat. APPETITE: Patient refused Food and Liquids. SLEEP(trouble falling/staying asleep: Excessive sleeping. Plan The patient will be allowed to remain in the hospital for now and Voluntary placement will be sought.
== END 2020-05-01 10:43 | disposition home or self-care (01) ==
LOC: ER 04-30 01:58 → MS 04-30 02:25
PROVIDERS: Admitting Provider Internal Medicine; Emergency Provider Emergency Medicine; PCP Nurse Practitioner; Visit Provider Internal Medicine
DX: R45.851 Suicidal ideations (principal); F31.9 Bipolar disorder, unspecified; E87.6 Hypokalemia; E03.9 Hypothyroidism, unspecified; D72.829 Elevated white blood cell count, unspecified; F41.9 Anxiety disorder, unspecified; F43.10 Post-traumatic stress disorder, unspecified; K21.9 Gastro-esophageal reflux disease without esophagitis; E78.00 Pure hypercholesterolemia, unspecified; Z91.128 Patient's intentional underdosing of medication regimen for other reason
CPT/HCPCS: 36415; 80053; 80307; 85027; 99217; 99220; 99226; 99285; 71045; 80320; 80329; 84443; 99284; G0378

== ENCOUNTER 2020-05-10 16:57 | Observation (INO) | payer MEDICAID, SELFPAY ==
[2020-05-10 17:01] VITALS: BP 128/76; PULSE 88; RESP 16; TEMP 36.6; O2SAT 95
[2020-05-10] MEDS: LORazepam 1 MG TAB 2 MG PO (17:24)
--- NOTE | 2020-05-10 17:27 | NUR.NOTE ---
Nursing Note: Care management paged, responded and discussed case. CM to call plastic worker at [facility] to discuss plan of care. If pt is to stay, CM will input a safety plan.
[2020-05-10 17:33] LABS: Bilirubin Negative (Negative); Blood Negative (Negative); Clarity Clear (Clear); Glucose Negative (Negative); Ketones Negative (Negative); Leukocyte Esterase Negative (Negative); Nitrite Negative (Negative); Specific Gravity 1.025 (1.005-1.025); Urobilinogen 0.2 EU/dL (Up TO 0.2); pH 6.5 (5-8)
--- NOTE | 2020-05-10 17:39 | ED.GENADUL_ITS ---
Discharge Plan Disposition Patient Disposition: [facility] INPATIENT Condition: Stable Discharge Details Clinical Impression: Depression Primary Care Provider: Fariba Forde ED Provider: Asim Fierro Home Meds and New Rx's Prescriptions: Continued omeprazole 20 MG capsule,delayed release(DR/EC) 20 mg PO QAM RF: 0 magnesium oxide 400 mg (241.3 mg magnesium) tablet 400 mg PO QAM RF: 0 sennosides [senna] 8.6 mg Tablet 8.6 mg PO BID PRNRF: 0 sertraline 100 mg Tablet 100 mg PO DAILY RF: 0 hydroxyzine pamoate [Vistaril] 25 mg Capsule 25 mg PO BID RF: 0 trazodone 50 mg tablet 50 mg PO HS RF: 0 olanzapine 5 mg tablet 5 mg PO DAILY RF: 0 melatonin 3 mg tablet 6 mg PO HS RF: 0 levothyroxine 75 mcg tablet 75 mcg PO DAILY RF: 0 pravastatin 20 mg tablet 20 mg PO HS RF: 0 Medical Decision Making <Maddie Awad NP - Last Filed: 05/10/20 22:52> well known to ED, reports hes not taking his medication, reportedly told mental health he would take a handful of pills. no recent medical illness. routine psychiatric evaluation and medical screening shows no acute medical condition to explain his symptoms. His behaviors are most likely secondary to medication non-compliance. medically he is cleared patient agreeable to take ativan 2 mg PO. mental health evaluation completed and patient will agree to voluntary placement. referrals will be placed and patient will remain here while awaiting a bed. in house covid testing initiated. patient agreeable to take olanzipine 5 mg po. patient has been cooperative with no behavioral issues. HS meds provided and taken without issue Medical Records Medical records reviewed: Yes I reviewed the patient's medical records. Lab Data Lab results reviewed: Yes I reviewed the patient's lab results. Labs: Laboratory Tests Range/Units 05/10/20 05/10/20 05/10/20 17:18 17:18 17:50 WBC (4.4-10.8) 10^3/uL RBC (4.36-5.78) 10^6/uL Hgb (13.5-17.5) g/dL Hct (40.0-50.0) % MCV (80-95) fL MCH (27.0-33.0) pg MCHC (32.0-36.0) % RDW (11.8-14.1) % Plt Count (130-400) 10^3/uL MPV (8.0-11.0) fL Immature Gran % Neutrophils % Lymphocytes % Monocytes % Eosinophils % Basophils % Nucleated RBC % % Absolute Neutrophils (1.2-6.7) 10^3/uL Absolute Lymphocytes (1.2-3.4) 10^3/uL Absolute Monocytes (0.1-0.8) 10^3/uL Absolute Eosinophils (0.0-0.7) 10^3/uL Absolute Basophils (0.0-0.2) 10^3/uL Sodium (136-145) mmol/L 134 L Potassium (3.5-5.1) mmol/L 3.7 Chloride (98-107) mmol/L 99 Carbon Dioxide (21.0-32.0) mmol/L 24.4 Anion Gap (3-11) mmol/L 10.6 BUN (7-18) mg/dL 17 Creatinine (0.70-1.30) mg/dL 0.92 Estimated GFR/1.73 m2 (mL/min/1.73m2) >= 60.00 Glucose (74-106) mg/dL 145 H Calcium (8.5-10.1) mg/dL 9.4 Total Bilirubin (0.2-1.0) mg/dL 0.4 AST (15-37) U/L 28 ALT (16-63) U/L 47 Alkaline Phosphatase (46-116) U/L 129 H Total Protein (6.4-8.2) g/dL 8.2 Albumin (3.4-5.0) g/dL 4.0 TSH (0.36-3.74) uIU/mL Urine Color (Yellow) Yellow Urine Clarity (Clear) Clear Urine pH (5-8) 6.5 Ur Specific Viola (1.005-1.025) 1.025 Urine Protein (Negative) mg/dL Negative Urine Ketones (Negative) mg/dL Negative Urine Blood (Negative) Negative Urine Nitrite (Negative) Negative Urine Bilirubin (Negative) Negative Urine Urobilinogen (Up TO 0.2) EU/dL 0.2 Ur Leukocyte Esterase (Negative) Negative Urine Glucose (Negative) mg/dL Negative Salicylates (2.8-20.0) mg/dL Urine Opiates Screen (Negative) Negative Urine Methadone Screen (Negative) Negative Acetaminophen (10-30) ug/mL Ur Barbiturates Screen (Negative) Negative Ur Tricyclics Screen (Negative) Negative Ur Amphetamines Screen (Negative) Negative U Benzodiazepines Scrn (Negative) Negative Urine Cocaine Screen (Negative) Negative Ur THC Screen (Negative) Positive A Ethyl Alcohol (<3) mg/dL 6.2 Range/Units 05/10/20 05/10/20 05/10/20 17:50 17:50 17:50 WBC (4.4-10.8) 10^3/uL 14.37 H RBC (4.36-5.78) 10^6/uL 5.57 Hgb (13.5-17.5) g/dL 15.2 Hct (40.0-50.0) % 45.9 MCV (80-95) fL 82.4 MCH (27.0-33.0) pg 27.3 MCHC (32.0-36.0) % 33.1 RDW (11.8-14.1) % 13.6 Plt Count (130-400) 10^3/uL 247 MPV (8.0-11.0) fL 10.0 Immature Gran % 0.3 Neutrophils % 77.2 Lymphocytes % 17.6 Monocytes % 4.0 Eosinophils % 0.6 Basophils % 0.3 Nucleated RBC % % 0 Absolute Neutrophils (1.2-6.7) 10^3/uL 11.09 H Absolute Lymphocytes (1.2-3.4) 10^3/uL 2.53 Absolute Monocytes (0.1-0.8) 10^3/uL 0.57 Absolute Eosinophils (0.0-0.7) 10^3/uL 0.09 Absolute Basophils (0.0-0.2) 10^3/uL 0.04 Sodium (136-145) mmol/L Potassium (3.5-5.1) mmol/L Chloride (98-107) mmol/L Carbon Dioxide (21.0-32.0) mmol/L Anion Gap (3-11) mmol/L BUN (7-18) mg/dL Creatinine (0.70-1.30) mg/dL Estimated GFR/1.73 m2 (mL/min/1.73m2) Glucose (74-106) mg/dL Calcium (8.5-10.1) mg/dL Total Bilirubin (0.2-1.0) mg/dL AST (15-37) U/L ALT (16-63) U/L Alkaline Phosphatase (46-116) U/L Total Protein (6.4-8.2) g/dL Albumin (3.4-5.0) g/dL TSH (0.36-3.74) uIU/mL 5.91 H Urine Color (Yellow) Urine Clarity (Clear) Urine pH (5-8) Ur Specific Viola (1.005-1.025) Urine Protein (Negative) mg/dL Urine Ketones (Negative) mg/dL Urine Blood (Negative) Urine Nitrite (Negative) Urine Bilirubin (Negative) Urine Urobilinogen (Up TO 0.2) EU/dL Ur Leukocyte Esterase (Negative) Urine Glucose (Negative) mg/dL Salicylates (2.8-20.0) mg/dL 3.8 Urine Opiates Screen (Negative) Urine Methadone Screen (Negative) Acetaminophen (10-30) ug/mL < 2 Ur Barbiturates Screen (Negative) Ur Tricyclics Screen (Negative) Ur Amphetamines Screen (Negative) U Benzodiazepines Scrn (Negative) Urine Cocaine Screen (Negative) Ur THC Screen (Negative) Ethyl Alcohol (<3) mg/dL <Asim Fierro MD - Last Filed: 05/11/20 11:23> pt resting comfortably calm and cooperative, awaiting placement at care bed, will continue to monitor apparently there is actually no care bed available and will be none available today so he is being made into a voluntary psych bed search and unfortunately there are no beds and unlikely to go anywhere today. Will discuss with hospitalist about admission HPI <Maddie Awad NP - Last Filed: 05/10/20 22:52> General Date/Time Provider Initiated Documentation: 05/10/20 16:58 . Information obtained by: patient . HPI Narrative: patient presents with mental health for evaluation. patient has had no recent medical illness or c/o. states hes not taking his medications and hes not going to. is cooperative and agreeable to taking an ativan Related Data Home Medications Medication Instructions Recorded Confirmed omeprazole 20 mg PO QAM 10/16/13 05/10/20 magnesium oxide 400 mg PO QAM 10/20/19 05/10/20 levothyroxine 75 mcg PO DAILY 12/19/19 05/10/20 melatonin 6 mg PO HS 12/19/19 05/10/20 olanzapine 5 mg PO DAILY 12/19/19 05/10/20 pravastatin 20 mg PO HS 12/19/19 05/10/20 trazodone 50 mg PO HS 12/19/19 05/10/20 hydroxyzine pamoate [Vistaril] 25 mg PO BID 04/05/20 05/10/20 sennosides [senna] 8.6 mg PO BID PRN 04/05/20 05/10/20 sertraline 100 mg PO DAILY 04/05/20 04/30/20 Allergies Allergy/AdvReac Type Severity Reaction Status Date / Time Sulfa (Sulfonamide Allergy Severe Swelling/Ed Unverified 05/10/20 17:06 Antibiotics) jostin General Stated Complaint: PsychEval ABA: 2 Review of Systems <Maddie Awad NP - Last Filed: 05/10/20 22:52> Narrative: denies any c/o All systems reviewed & are unremarkable except as noted in HPI and below PFSH <Maddie Awad NP - Last Filed: 05/10/20 22:52> Medical History Anxiety Bipolar disorder COPD (chronic obstructive pulmonary disease) GERD (gastroesophageal reflux disease) Hypercholesterolemia Hypothyroid Traumatic pneumothorax 2016, chest tube x2 Surgical History History of ankle surgery S/P thoracostomy tube placement Social History Smoking/Tobacco Use Status: Current every day Tobacco Type: cigarettes Smoking risk assessment performed?: Yes Alcohol Intake: never Drug use: Daily Substance use type: marijuana Do you feel safe at home: No (pt states he doesn't feel safe.PT lives alone) Do you feel safe in your relationship?: Yes Exam <Maddie Awad NP - Last Filed: 05/10/20 22:52> Const General: cooperative, healthy appearing, comfortable and no acute distress Nutritional Appearance: average body habitus Orientation: alert, awake and oriented x3 HENMT Head: normal to inspection, normocephalic and atraumatic Mouth: oral mucosae normal Chest Chest: normal inspection of the chest Resp Effort & Inspection: normal respiratory effort and able to speak in complete sentences Cardio Rate: regular rate GI Inspection: normal to inspection Skin General skin exam: no rashes or lesions noted Neuro General: patient alert, patient awake and patient oriented x3 Extrem General: normal to inspection and full ROM Psych Appearance: grossly normal Mental Status: mental status grossly normal Speech and Movement: speech and movement normal Mood: irritable mood Affect: irritable affect Attitude: cooperative Thought Content: suicidality Insight: limited Judgment: limited Course <Maddie Awad NP - Last Filed: 05/10/20 22:52> Vital Signs Vital signs: Vital Signs Temperature 36.6 C 05/10/20 17:01 Pulse 88 05/10/20 17:01 Respiratory Rate 16 05/10/20 17:01 Blood Pressure 128/76 05/10/20 17:01 Pulse Oximetry 95 05/10/20 17:01 Temperature 36.6 C 05/10/20 17:01 Temperature Source Skin 05/10/20 17:01 Pulse 88 05/10/20 17:01 Respiratory Rate 16 05/10/20 17:01 Respiratory Effort Non-Labored 05/10/20 17:01 Blood Pressure 128/76 05/10/20 17:01 Blood Pressure Position Sitting 05/10/20 17:01 Pulse Oximetry 95 05/10/20 17:01 Oxygen Delivery Method Room Air 05/10/20 17:01 Oxygen Flow Rate 0 05/10/20 17:01 Pain Level 0 05/10/20 17:01 Sign Out <Maddie Awad NP - Last Filed: 05/10/20 22:52> Sign Out Data: Sign Out Comment: patient is awaiting disposition in am per [facility], anticipate care bed if available. he has been cooperative with no behavioral issues and is now taking his medication, he remains on voluntary status and has a cpso and safety care plan in place. Last updated by Maddie Awad NP at 05/10/20 23:41 Sign Out Comment: Patient is expected to go to care bed in the morning. Outpatient CT scan is planned. Patient voluntarily requesting this. Last updated by Mickey Ragsdale DO at 05/11/20 07:51
[2020-05-10 17:46] LABS: *AMPHETAMINES SCREEN URINE Negative (Negative); *BARBITURATES SCREEN URINE Negative (Negative); *BENZODIAZEPINES SCREEN URINE Negative (Negative); Cannabinoids THC POSITIVE (Negative); Cocaine Screen,Urine Negative (Negative); METHADONE URINE SCREEN Negative (Negative); OPIATES URINE SCREEN Negative (Negative); Tricyclic Antidepressants Negative (Negative)
[2020-05-10 17:59] LABS: Abs Immature Grans 0.05 10^3/uL (0.0-0.06); Absolute Basophil Count 0.04 10^3/uL (0.0-0.2); Absolute Eosinophil Count 0.09 10^3/uL (0.0-0.7); Absolute Lymphocyte Count 2.53 10^3/uL (1.2-3.4); Absolute Monocyte Count 0.57 10^3/uL (0.1-0.8); Absolute Neutrophil Count 11.09 10^3/uL (1.2-6.7); Basophils % 0.3; Eosinophils % 0.6; HCT 45.9 % (40.0-50.0); HGB 15.2 g/dL (13.5-17.5); Immature Grans % 0.3; Lymphocytes % 17.6; MCH 27.3 pg (27.0-33.0); MCHC 33.1 % (32.0-36.0); MCV 82.4 fL (80-95); Neutrophils % 77.2; Nucleated RBC 0 %; Platelet Count 247 10^3/uL (130-400); RBC 5.57 10^6/uL (4.36-5.78); RDW 13.6 % (11.8-14.1); RDW-SD 40.5 fL; WBC 14.37 10^3/uL (4.4-10.8)
--- NOTE | 2020-05-10 18:02 | NUR.NOTE ---
Nursing Note: Spoke with inclusion paraeducator drop board worker to express frustration at lack of communication from [facility] initial machine shop worker Dianne in presenting complaint and assistance with background information.
[2020-05-10 18:21] LABS: TSH 5.91 uIU/mL (0.36-3.74)
[2020-05-10 18:23] LABS: ALT 47 U/L (16-63); AST 28 U/L (15-37); Alkaline Phosphatase 129 U/L (46-116); Anion Gap 10.6 mmol/L (3-11); BUN 17 mg/dL (7-18); Bilirubin, Total 0.4 mg/dL (0.2-1.0); CO2 24.4 mmol/L (21.0-32.0); CREATININE 0.92 mg/dL (0.70-1.30); Calcium 9.4 mg/dL (8.5-10.1); Chloride 99 mmol/L (98-107); ETHANOL BLOOD 6.2 mg/dL (<3); Glucose 145 mg/dL (74-106); Potassium 3.7 mmol/L (3.5-5.1); Sodium 134 mmol/L (136-145); Total Protein 8.2 g/dL (6.4-8.2)
[2020-05-10 18:24] LABS: Salicylate 3.8 mg/dL (2.8-20.0)
[2020-05-10 18:25] LABS: Acetaminophen < 2 ug/mL (10-30)
[2020-05-10 18:58] LABS: Source Nasopharynx
--- NOTE | 2020-05-10 18:59 | NUR.NOTE ---
Nursing Note: [facility] Zoom meeting complete. CM paged and will input plan of care. Updated as to voluntary status, house in ED for the evening. Rapid COVID testing ordered. Plan for [facility] in the AM- unable to go to care bed after hours, as they don't take referrals after approx 5 pm. Pt agreeable to this. Referral to be sent to [facility] per pt request as well. Pt to be wanded by security, as he will allowed to remain in street clothing as long as behavior allows. Please see care plan for details when input. Pt has taken Olanzapine willingly.
[2020-05-10] MEDS: OLANZapine 5 MG TAB PO (19:00)
--- NOTE | 2020-05-10 19:08 | PDOC.MHPN2 ---
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 Client states he feels like shit mentally and physically, and is unable to find relief from his persistent suicidal ideation. Precipitating Factors Client has been inconsistent with his medication, and states he has been stockpiling them. Client has been seen in the ER multiple times in the last few months, and his SI is persistent. Client states he is hopeless, and hates that his medication leaves him in darkness and confusion. Disposition * Behavior: Client is seated on his hospital bed, and is receptive and polite during our conversation. *Eye Contact: Client provides good eye contact during our conversation *Mood: Depressed *Affect: Flat *Appetite: Did not assess *Sleep(troubel falling/staying asleep): Client states he is not sleeping well and has not been taking his nighttime meds Plan(please elaborate and include that physician is consulted with plan and/or placement): Client will remain in ED to await placement, either inpatient or at the Care Bed. Client is willing to do either. This information will be passed on to the [employer] team, who will perform his morning assessment. This clinician will make a referral for inpatient treatment. Clinician's Name , Title, and Signature Caitlyn Caballero Branch Operation Evaluation Manager [facility] Make sure that you are photocopying and submitting this to [facility] records Dept. to be scanned into chart.
--- NOTE | 2020-05-10 19:18 | CMSP_ITS ---
- If Service Date Differs Date of service: 05/10/20 Time of Service: 19:19 Care Management Safety Plan Chief Complaint: Asim is a 54 year old male with a long psychiatric history and multiple hospitalizations for suicidal ideation. Asim has had multiple admission to [facility] and ED visits. He receives his supports through [facility] HOUSEKEEPER AND LAUNDRY ASSISTANT program. CM reviewed events with [facility] prior to his admission. According to [facility] Asim has been threatening to take all of his medications at once and has been hoarding them. Plan will be for him to stay in the ED overnight, and be admitted to the care bed in the morning if [facility] and HOUSEKEEPER AND LAUNDRY ASSISTANT can coordinate it. Asim has also agreed to referral to [facility] which has been faxed. A rapid COVID was done in the ED. VOLUNTARY FOR INPATIENT PSYCHIATRIC STABILIZATION. Safety plan has been established to meet the needs of the patient, and consideration of the care team, to adhere to patient goals, identify restrictions based on behavioral status, address nutrition, and determine al lowed personal belongings, tools for hygiene and personal care; determine level of activity including ambulation, level of supervision, visitors, and determine privileges based on behaviors and level of engagement by patient. SAFETY PLAN: 1. Will remain on SI/HI precautions. Asim will remain in his own clothing and will be wanded by security for safety and at the discretion of primary care team. 2. Will remain in room under direct supervision of one-on-one staff at all times provided by [employer]; DONTAE, CREW TRAINER annual giving director. 3. May have paper cups, plates, finger foods as well as a metal spoon for meals to be accounted for upon meal completion 4. Follow [facility] Management of the Admitted Behavioral Health Patient policy. 5. Comfort wipes, shower at the discretion of primary care team with appropriate supervision 6. Personal belongings: Eye glasses permitted and cell phone. Cell phone may be removed and access to portable phone at the discretion of primary care team and level of Asim's engagement with care team. 7. Visitors: No visitors per [facility]/COVID policy 8. Activities: Television, remote, coloring, paper, soft tip markers, reading material permitted if following expectations; at RN discretion. 9. Bathroom privileges with supervision in ED. 10. Phone: portable as needed and the request of Primary care team he may have his cell phone as long as behaviors allow. 11. Due to VOLUNTARY Staff will provide de-escalation support (CPI) as needed. If patient wishes to leave [facility], staff will contact [facility] Crisis Screener ([phone]) and On-Call Drywaller ([phone]) as soon as possible. In the event of elopement, notify [facility] Police ([phone]). Patient is currently voluntarily at [facility]. [facility] Frontline Rn Telephone Triage will continue seeking placement. Please contact the Concrete Bucket Hooker Drywaller ([phone]) for any needed changes to Safety Plan. Safety plan has been provided to interdepartmental care team.
[2020-05-10 19:35] LABS: COVID-19 PCR Negative (Negative); Influenza A PCR Negative (Negative); Influenza B PCR Negative (Negative); RSV PCR Negative (Negative)
[2020-05-10] MEDS: hydrOXYzine PAMOATE 25 MG CAP PO (20:05)
[2020-05-10] MEDS: Pravastatin 20 MG TAB PO (21:59)
[2020-05-10] MEDS: traZODone 50 MG TAB PO (21:59)
--- NOTE | 2020-05-10 22:03 | NUR.NOTE ---
Sleeping on left side, even unlabored resp. Night meds a/o. Pt scheduled for CT on 05/11 at 1345. DI called to attempt to move appt up in am so pt may have study after DC from ED, before transport to care bed.
[2020-05-11] MEDS: hydrOXYzine PAMOATE 25 MG CAP PO (07:29)
[2020-05-11] MEDS: Magnesium Oxide 400 MG TAB PO (07:29)
[2020-05-11] MEDS: OLANZapine 5 MG TAB PO (07:30)
[2020-05-11] MEDS: Levothyroxine 75 MCG TAB PO (07:30)
[2020-05-11] MEDS: Omeprazole 20 MG CAPCR PO (07:30)
--- NOTE | 2020-05-11 10:40 | NUR.NOTE ---
spoke with patient about following hospital policy about paper scrubs when being admitted for [facility]. Patient agreed to change into scrubs.
--- NOTE | 2020-05-11 10:55 | PDOC.CMSAFED ---
- If Service Date Differs Date of service: 05/11/20 Time of Service: 10:55 Care Management Safety Plan VOLUNTARY FOR INPATIENT PSYCHIATRIC STABILIZATION. Safety plan has been established to meet the needs of the patient, and consideration of the care team, to adhere to patient goals, identify restrictions based on behavioral status, address nutrition, and determine allowed personal belongings, tools for hygiene and personal care; determine level of activity including ambulation, level of supervision, visitors, and determine privileges based on behaviors and level of engagement by patient. SAFETY PLAN: 1. Will remain on SI/HI precautions and in paper clothes. 2. Will remain in room under direct supervision of one-on-one staff at all times provided by [employer]; DONTAE, AOC OPERATIONS INTELLIGENCE CHIEF assistant professor in family studies. 3. May have paper cups, plates, finger foods as well as a metal spoon for meals to be accounted for upon meal completion 4. Follow [facility] Management of the Admitted Behavioral Health Patient policy. 5. Comfort wipes, shower at the discretion of primary care team with appropriate supervision. 6. Personal belongings: Eye glasses permitted and cell phone. Cell phone may be removed and access to portable phone at the discretion of primary care team and level of Asim's engagement with care team. 7. Visitors: No visitors per [facility] policy. 8. Activities: Television and remote when available, coloring, paper, soft tip markers, reading material permitted if following expectations; at RN discretion. 9. Bathroom privileges with supervision in ED; allowed to use bathroom in room without supervision if moved to Med/Surg. 10. Phone: portable as needed and the request of Primary care team he may have his cell phone as long as behaviors allow. 11. Due to VOLUNTARY Staff will provide de-escalation support (CPI) as needed. If patient wishes to leave [facility], staff will contact [facility] Crisis Screener ([phone]) and On-Call Manager Chemistry ([phone]) as soon as possible. In the event of elopement, notify [place] [employer] Police ([phone]). Patient is currently voluntarily at [facility]. [facility] Frontline V Groove Cutter will continue seeking placement. Please contact the Coagulating Drying Supervisor Manager Chemistry ([phone]) for any needed changes to Safety Plan. Safety plan has been provided to interdepartmental care team.
--- NOTE | 2020-05-11 11:01 | CMPROGNOTE_ITS ---
- If Service Date Differs Date of service: 05/11/20 Time of Service: 11:01 Care Management Progress Note S/O: Asim presented to the ED last evening due to ongoing suicidal ideation. He reportedly has been stockpiling his medication with an intent of overdosing and after sharing this with his BELL NECK HAMMERER rn case manager, the [facility] Police were sent to his apartment to check on him. Asim was subsequently transported to the ED for a psych evaluation. Since his arrival at [facility], Asim has been calm and cooperative. He reports being depressed and having persistent suicidal thoughts. He states he did not sleep well last night and when asked about his appetite, he says he ate breakfast at the hospital this morning. Asim met with Ozzy, [facility] BELL NECK HAMMERER rn case manager, via zoom today and was found to meet criteria for a voluntary placement. Asim expresses his wish to either go to [facility] or to the [facility] Care Bed. Unfortunately, neither have any available beds at this time. CM will continue to follow. A: Asim is a 54 year old male who remains at [facility] awaiting a voluntary psych placement. P: Referrals have been faxed for review to [facility], [facility], and [facility]. Asim will remain at [facility] while [facility] continues to seek a voluntary placement for him. CM will continue to follow.
--- NOTE | 2020-05-11 11:01 | PDOC.ERCMPRO ---
- If Service Date Differs Date of service: 05/11/20 Time of Service: 11:01 Care Management Progress Note S/O: Asim presented to the ED last evening due to ongoing suicidal ideation. He reportedly has been stockpiling his medication with an intent of overdosing and after sharing this with his INFECTION CONTROL NURSE community case manager, the [facility] Police were sent to his apartment to check on him. Asim was subsequently transported to the ED for a psych evaluation. Since his arrival at [facility], Asim has been calm and cooperative. He reports being depressed and having persistent suicidal thoughts. He states he did not sleep well last night and when asked about his appetite, he says he ate breakfast at the hospital this morning. Asim met with Ozzy, [facility] INFECTION CONTROL NURSE community case manager, via zoom today and was found to meet criteria for a voluntary placement. Asim expresses his wish to either go to [facility] or to the [facility] Care Bed. Unfortunately, neither have any available beds at this time. CM will continue to follow. A: Asim is a 54 year old male who remains at [facility] awaiting a voluntary psych placement. P: Referrals have been faxed for review to [facility], [facility], and [facility]. Asim will remain at [facility] while [facility] continues to seek a voluntary placement for him. CM will continue to follow.
--- NOTE | 2020-05-11 11:03 | PDOC.MHCN ---
Date of service: 05/11/20 Time of Service: 08:55 Mental Health Crisis Note Presenting Issue How did you arrive at the ED and why did you come: State police transport. Client had been stockpiling medication. Precipitating Factors Client states SI still boggling around my mind. Reports improved from last night. Disposition BEHAVIOR: Cooperative with this commercial loan underwriter. EYE CONTACT: good MOOD: Client had just woken from nap. Appeared groggy, somewhat depressed. AFFECT: congruent to mood. APPETITE: I ate breakfast this morning. SLEEP(trouble falling/staying asleep: good, normal. Plan Client states if her were to go home it would be the same old same old. This commercial loan underwriter to look into care bed availability. If there are no openings at care bed, client to call hospitals to inquire into involuntary admission.
--- NOTE | 2020-05-11 11:24 | W.PM.HP.N ---
Date of service: 05/11/20 Time of Service: 11:24 Assessment and Plan Assessment and plan (1) Depression with suicidal ideation: Status: Acute Assessment and plan: shortly after being admitted, bed available at [facility] which he declines, plan for discharge home with oupatient f/u (2) Bipolar disorder: Status: Chronic Assessment and plan: continue home medication Qualifiers: Active/Remission status: currently active Current bipolar episode type: hypomanic Qualified Code(s): F31.0 - Bipolar disorder, current episode hypomanic History of Present Illness History of Present Illness Chief Complaint: suicidal ideation Narrative: This is a 54 year old male, well known to [facility], who reports he's not taking his medication, reportedly told mental health he would take a handful of pills. He has had no recent medical illness. Routine psychiatric evaluation and medical screening shows no acute medical condition to explain his symptoms. His behaviors are most likely secondary to medication non-compliance, which is recurrent for him. Medically he is cleared and he has had no behavioral issues here, agreeable to taking his medication. Mental health evaluation completed and patient will agree to voluntary placement. referrals were placed and he was accepted at [facility] which he declines. Mental health notified that he declines now and plans are for outpatient f/u with [facility]. He is being discharged home with resumption of his community services through mental health. in house covid testing was negative. Review of Systems Narrative: denies any c/o All systems reviewed & are unremarkable except as noted in HPI and below PFSH Medical History Anxiety Bipolar disorder COPD (chronic obstructive pulmonary disease) GERD (gastroesophageal reflux disease) Hypercholesterolemia Hypothyroid Traumatic pneumothorax 2016, chest tube x2 Surgical History History of ankle surgery S/P thoracostomy tube placement Social History Smoking/Tobacco Use Status: Current every day Tobacco Type: cigarettes Smoking risk assessment performed?: Yes Alcohol Intake: never Drug use: Daily Substance use type: marijuana Do you feel safe at home: No (pt states he doesn't feel safe.PT lives alone) Do you feel safe in your relationship?: Yes Meds Home Medications and Allergies Home Medications Medication Instructions Recorded Confirmed Type omeprazole 20 mg PO QAM 10/16/13 05/10/20 History magnesium oxide 400 mg PO QAM 10/20/19 05/10/20 History levothyroxine 75 mcg PO DAILY 12/19/19 05/10/20 History melatonin 6 mg PO HS 12/19/19 05/10/20 History olanzapine 5 mg PO DAILY 12/19/19 05/10/20 History pravastatin 20 mg PO HS 12/19/19 05/10/20 History trazodone 50 mg PO HS 12/19/19 05/10/20 History hydroxyzine pamoate [Vistaril] 25 mg PO BID 04/05/20 05/10/20 History sennosides [senna] 8.6 mg PO BID PRN 04/05/20 05/10/20 History sertraline 100 mg PO DAILY 04/05/20 04/30/20 History Allergies Allergy/AdvReac Type Severity Reaction Status Date / Time Sulfa (Sulfonamide Allergy Severe Swelling/Ed Unverified 05/10/20 17:06 Antibiotics) jostin Exam Const General: cooperative, healthy appearing, comfortable and no acute distress Nutritional Appearance: average body habitus Orientation: alert, awake and oriented x3 HENMT Head: normal to inspection, normocephalic and atraumatic Mouth: oral mucosae normal Chest Chest: normal inspection of the chest Resp Effort & Inspection: normal respiratory effort and able to speak in complete sentences Cardio Rate: regular rate GI Inspection: normal to inspection Skin General skin exam: no rashes or lesions noted Neuro General: patient alert, patient awake and patient oriented x3 Extrem General: normal to inspection and full ROM Psych Appearance: grossly normal Mental Status: mental status grossly normal Speech and Movement: speech and movement normal Mood: irritable mood Affect: irritable affect Attitude: cooperative Thought Content: suicidality Insight: limited Judgment: limited Results Labs Result diagrams: 05/10/20 17:50 05/10/20 17:50 Labs: Laboratory Results - last 24 hr 05/10/20 05/10/20 05/10/20 17:18 17:18 17:50 WBC RBC Hgb Hct MCV MCH MCHC RDW Plt Count MPV Immature Gran % Neutrophils % Lymphocytes % Monocytes % Eosinophils % Basophils % Nucleated RBC % Absolute Neutrophils Absolute Lymphocytes Absolute Monocytes Absolute Eosinophils Absolute Basophils Sodium 134 L Potassium 3.7 Chloride 99 Carbon Dioxide 24.4 Anion Gap 10.6 BUN 17 Creatinine 0.92 Estimated GFR/1.73 m2 >= 60.00 Glucose 145 H Calcium 9.4 Total Bilirubin 0.4 AST 28 ALT 47 Alkaline Phosphatase 129 H Total Protein 8.2 Albumin 4.0 TSH Urine Color Yellow Urine Clarity Clear Urine pH 6.5 Ur Specific [place] 1.025 Urine Protein Negative Urine Ketones Negative Urine Blood Negative Urine Nitrite Negative Urine Bilirubin Negative Urine Urobilinogen 0.2 Ur Leukocyte Esterase Negative Urine Glucose Negative Salicylates Urine Opiates Screen Negative Urine Methadone Screen Negative Acetaminophen Ur Barbiturates Screen Negative Ur Tricyclics Screen Negative Ur Amphetamines Screen Negative U Benzodiazepines Scrn Negative Urine Cocaine Screen Negative Ur THC Screen Positive A Ethyl Alcohol 6.2 COVID-19 Source SARS-CoV-2 (PCR) Influenza Type A (PCR) Influenza Type B (PCR) RSV (PCR) 05/10/20 05/10/20 05/10/20 17:50 17:50 17:50 WBC 14.37 H RBC 5.57 Hgb 15.2 Hct 45.9 MCV 82.4 MCH 27.3 MCHC 33.1 RDW 13.6 Plt Count 247 MPV 10.0 Immature Gran % 0.3 Neutrophils % 77.2 Lymphocytes % 17.6 Monocytes % 4.0 Eosinophils % 0.6 Basophils % 0.3 Nucleated RBC % 0 Absolute Neutrophils 11.09 H Absolute Lymphocytes 2.53 Absolute Monocytes 0.57 Absolute Eosinophils 0.09 Absolute Basophils 0.04 Sodium Potassium Chloride Carbon Dioxide Anion Gap BUN Creatinine Estimated GFR/1.73 m2 Glucose Calcium Total Bilirubin AST ALT Alkaline Phosphatase Total Protein Albumin TSH 5.91 H Urine Color Urine Clarity Urine pH Ur Specific [place] Urine Protein Urine Ketones Urine Blood Urine Nitrite Urine Bilirubin Urine Urobilinogen Ur Leukocyte Esterase Urine Glucose Salicylates 3.8 Urine Opiates Screen Urine Methadone Screen Acetaminophen < 2 Ur Barbiturates Screen Ur Tricyclics Screen Ur Amphetamines Screen U Benzodiazepines Scrn Urine Cocaine Screen Ur THC Screen Ethyl Alcohol COVID-19 Source SARS-CoV-2 (PCR) Influenza Type A (PCR) Influenza Type B (PCR) RSV (PCR) 05/10/20 18:35 WBC RBC Hgb Hct MCV MCH MCHC RDW Plt Count MPV Immature Gran % Neutrophils % Lymphocytes % Monocytes % Eosinophils % Basophils % Nucleated RBC % Absolute Neutrophils Absolute Lymphocytes Absolute Monocytes Absolute Eosinophils Absolute Basophils Sodium Potassium Chloride Carbon Dioxide Anion Gap BUN Creatinine Estimated GFR/1.73 m2 Glucose Calcium Total Bilirubin AST ALT Alkaline Phosphatase Total Protein Albumin TSH Urine Color Urine Clarity Urine pH Ur Specific [place] Urine Protein Urine Ketones Urine Blood Urine Nitrite Urine Bilirubin Urine Urobilinogen Ur Leukocyte Esterase Urine Glucose Salicylates Urine Opiates Screen Urine Methadone Screen Acetaminophen Ur Barbiturates Screen Ur Tricyclics Screen Ur Amphetamines Screen U Benzodiazepines Scrn Urine Cocaine Screen Ur THC Screen Ethyl Alcohol COVID-19 Source Nasopharynx SARS-CoV-2 (PCR) Negative Influenza Type A (PCR) Negative Influenza Type B (PCR) Negative RSV (PCR) Negative Last Vital Signs Temp 36.6 C 05/10/20 17:01 Pulse 88 05/10/20 17:01 Resp 16 05/10/20 17:01 BP 128/76 05/10/20 17:01 Pulse Ox 95 05/10/20 17:01 COVID-19 Screening Have you, or household traveled for leisure in last 14 days?: No Had IN PERSON contact w/suspected or confirmed C-19 person: No
[2020-05-11 12:19] VITALS: BP 101/61; PULSE 65; RESP 18; TEMP 36.7; O2SAT 97
[2020-05-11 12:49] VITALS: BP 101/61; PULSE 65; RESP 18; TEMP 36.7; O2SAT 97
--- NOTE | 2020-05-11 15:07 | DSE_ITS ---
Date of service: 05/11/20 Time of Service: 15:07 DS: Diagnosis Discharge Diagnosis (1) Depression with suicidal ideation: Status: Acute Asessment and Plan: was admitted voluntarily. bed only available at [place] which he declines. safety plan per mental health and recommendations for discharge with outpatient follow up. (2) Bipolar disorder: Status: Chronic Discharge Plan Disposition Patient Disposition: HOME Condition: Stable Discharge Details Reason For Visit: SUICIDAL IDEATION Admit Date/Time: 05/11/20 11:17 Admit Provider: Kristen Brennan Attending Provider: Kristen Brennan Primary Care Provider: Fariba Forde Home Meds and New Rx's Prescriptions: Continued omeprazole 20 MG capsule,delayed release(DR/EC) 20 mg PO QAM RF: 0 magnesium oxide 400 mg (241.3 mg magnesium) tablet 400 mg PO QAM RF: 0 sennosides [senna] 8.6 mg Tablet 8.6 mg PO BID PRNRF: 0 sertraline 100 mg Tablet 100 mg PO DAILY RF: 0 hydroxyzine pamoate [Vistaril] 25 mg Capsule 25 mg PO BID RF: 0 trazodone 50 mg tablet 50 mg PO HS RF: 0 olanzapine 5 mg tablet 5 mg PO DAILY RF: 0 melatonin 3 mg tablet 6 mg PO HS RF: 0 levothyroxine 75 mcg tablet 75 mcg PO DAILY RF: 0 pravastatin 20 mg tablet 20 mg PO HS RF: 0 Discharge Instructions Instructions: Depression (ED) Additional Instructions: Take all your medications as prescribed return for new or worsening symptoms Stand Alone Forms: Nursing Discharge Form Referrals: Fariba Forde [Primary Care Provider] - Activity:: Activity as Tolerated Equipment/Supplies:: No Equipment Needed Diet:: As Tolerated Discharge Orders Discharge Orders: Discharge Order (Routine); Ordered 05/11/20 Ordered By: Maddie Awad DS: Summary Status at Discharge Functional status at discharge: independent ambulation Overall status at discharge: patient is progressing back to baseline Mental Status: mental status grossly normal Speech and Movement: speech and movement normal Mood: irritable mood Affect: irritable affect Exam Const General: cooperative, healthy appearing, comfortable and no acute distress Nutritional Appearance: average body habitus Orientation: alert, awake and oriented x3 HENMT Head: normal to inspection, normocephalic and atraumatic Mouth: oral mucosae normal Chest Chest: normal inspection of the chest Resp Effort & Inspection: normal respiratory effort and able to speak in complete sentences Cardio Rate: regular rate GI Inspection: normal to inspection Skin General skin exam: no rashes or lesions noted Neuro General: patient alert, patient awake and patient oriented x3 Extrem General: normal to inspection and full ROM Psych Appearance: grossly normal Mental Status: mental status grossly normal Speech and Movement: speech and movement normal Mood: irritable mood Affect: irritable affect Attitude: cooperative Thought Content: suicidality Insight: limited Judgment: limited DS: Data Vitals/I&O Vitals and I&O: Vital Signs Temperature 36.7 C 05/11/20 12:49 Temperature Source Temporal Artery Scan 05/11/20 12:19 Pulse 65 05/11/20 12:49 Pulse Rhythm Regular 05/11/20 12:49 Respiratory Rate 18 05/11/20 12:49 Respiratory Effort Non-Labored 05/11/20 12:49 Respiratory Depth Normal 05/11/20 12:49 Respiratory Pattern Normal 05/11/20 12:49 Blood Pressure 101/61 05/11/20 12:49 Blood Pressure Position Sitting 05/10/20 17:01 Pulse Oximetry 97 05/11/20 12:49 Oxygen Delivery Method Room Air 05/11/20 12:49 Oxygen Flow Rate 0 05/11/20 12:49 Pain Level 0 05/11/20 12:49 Intake & Output 05/10/20 05/11/20 05/11/20 23:59 11:59 23:59 Weight 81.647 kg 82.2 kg Other: Urine Appearance Clear Data Completed and Pending Labs on day of discharge: Labs from last 24 hours 05/10/20 05/10/20 05/10/20 18:35 17:50 17:50 WBC 14.37 H RBC 5.57 Hgb 15.2 Hct 45.9 MCV 82.4 MCH 27.3 MCHC 33.1 RDW 13.6 Plt Count 247 MPV 10.0 Immature Gran % 0.3 Neutrophils % 77.2 Lymphocytes % 17.6 Monocytes % 4.0 Eosinophils % 0.6 Basophils % 0.3 Nucleated RBC % 0 Absolute Neutrophils 11.09 H Absolute Lymphocytes 2.53 Absolute Monocytes 0.57 Absolute Eosinophils 0.09 Absolute Basophils 0.04 Sodium Potassium Chloride Carbon Dioxide Anion Gap BUN Creatinine Estimated GFR/1.73 m2 Glucose Calcium Total Bilirubin AST ALT Alkaline Phosphatase Total Protein Albumin TSH 5.91 H Urine Color Urine Clarity Urine pH Ur Specific [place] Urine Protein Urine Ketones Urine Blood Urine Nitrite Urine Bilirubin Urine Urobilinogen Ur Leukocyte Esterase Urine Glucose Salicylates Urine Opiates Screen Urine Methadone Screen Acetaminophen Ur Barbiturates Screen Ur Tricyclics Screen Ur Amphetamines Screen U Benzodiazepines Scrn Urine Cocaine Screen Ur THC Screen Ethyl Alcohol COVID-19 Source Nasopharynx SARS-CoV-2 (PCR) Negative Influenza Type A (PCR) Negative Influenza Type B (PCR) Negative RSV (PCR) Negative 05/10/20 05/10/20 05/10/20 17:50 17:50 17:18 WBC RBC Hgb Hct MCV MCH MCHC RDW Plt Count MPV Immature Gran % Neutrophils % Lymphocytes % Monocytes % Eosinophils % Basophils % Nucleated RBC % Absolute Neutrophils Absolute Lymphocytes Absolute Monocytes Absolute Eosinophils Absolute Basophils Sodium 134 L Potassium 3.7 Chloride 99 Carbon Dioxide 24.4 Anion Gap 10.6 BUN 17 Creatinine 0.92 Estimated GFR/1.73 m2 >= 60.00 Glucose 145 H Calcium 9.4 Total Bilirubin 0.4 AST 28 ALT 47 Alkaline Phosphatase 129 H Total Protein 8.2 Albumin 4.0 TSH Urine Color Urine Clarity Urine pH Ur Specific [place] Urine Protein Urine Ketones Urine Blood Urine Nitrite Urine Bilirubin Urine Urobilinogen Ur Leukocyte Esterase Urine Glucose Salicylates 3.8 Urine Opiates Screen Negative Urine Methadone Screen Negative Acetaminophen < 2 Ur Barbiturates Screen Negative Ur Tricyclics Screen Negative Ur Amphetamines Screen Negative U Benzodiazepines Scrn Negative Urine Cocaine Screen Negative Ur THC Screen Positive A Ethyl Alcohol 6.2 COVID-19 Source SARS-CoV-2 (PCR) Influenza Type A (PCR) Influenza Type B (PCR) RSV (PCR) 05/10/20 17:18 WBC RBC Hgb Hct MCV MCH MCHC RDW Plt Count MPV Immature Gran % Neutrophils % Lymphocytes % Monocytes % Eosinophils % Basophils % Nucleated RBC % Absolute Neutrophils Absolute Lymphocytes Absolute Monocytes Absolute Eosinophils Absolute Basophils Sodium Potassium Chloride Carbon Dioxide Anion Gap BUN Creatinine Estimated GFR/1.73 m2 Glucose Calcium Total Bilirubin AST ALT Alkaline Phosphatase Total Protein Albumin TSH Urine Color Yellow Urine Clarity Clear Urine pH 6.5 Ur Specific [place] 1.025 Urine Protein Negative Urine Ketones Negative Urine Blood Negative Urine Nitrite Negative Urine Bilirubin Negative Urine Urobilinogen 0.2 Ur Leukocyte Esterase Negative Urine Glucose Negative Salicylates Urine Opiates Screen Urine Methadone Screen Acetaminophen Ur Barbiturates Screen Ur Tricyclics Screen Ur Amphetamines Screen U Benzodiazepines Scrn Urine Cocaine Screen Ur THC Screen Ethyl Alcohol COVID-19 Source SARS-CoV-2 (PCR) Influenza Type A (PCR) Influenza Type B (PCR) RSV (PCR) PFSH Medical History Anxiety Bipolar disorder COPD (chronic obstructive pulmonary disease) GERD (gastroesophageal reflux disease) Hypercholesterolemia Hypothyroid Traumatic pneumothorax 2016, chest tube x2 Surgical History History of ankle surgery S/P thoracostomy tube placement Social History Smoking/Tobacco Use Status: Current every day Tobacco Type: cigarettes Smoking risk assessment performed?: Yes Alcohol Intake: never Drug use: Daily Substance use type: marijuana Do you feel safe at home: No (pt states he doesn't feel safe.PT lives alone) Do you feel safe in your relationship?: Yes
--- NOTE | 2020-05-11 15:52 | PDOC.CMDIS ---
- If Service Date Differs Date of service: 05/11/20 Time of Service: 15:52 LACE Index Scoring Tool - Questions: Length of Stay (in days): 1 Acuity (Admit via E.D.?): Yes E.D. Visits: 12 - Answers: Total Score: 8 Risk of Readmission: Low Risk Care Management Discharge Reason for Hospitalization: Suicidal ideation. Discharge Plan: Asim is accepted for admission at [facility] and at [facility]. He refuses voluntary psych admission to both facilities and instead opts to return home on a safety plan. Asim is, therefore, returning home and he will follow up with his [facility] renal case manager on an outpatient basis. Patient/Family Education Needs: Discharge instructions including follow up plan of care and self-management. - MH Services (Omit if N/A) Current MH Services: [facility]
== END 2020-05-11 15:30 | disposition home or self-care (01) ==
LOC: ER 05-11 10:50 → MS 05-11 12:37
PROVIDERS: Nurse Practitioner Acute Care; Admitting Provider Internal Medicine; Emergency Provider Emergency Medicine; PCP Nurse Practitioner; Visit Provider Internal Medicine
DX: F31.0 Bipolar disorder, current episode hypomanic (principal); R45.851 Suicidal ideations; Z91.14 Patient's other noncompliance with medication regimen; F41.9 Anxiety disorder, unspecified; K21.9 Gastro-esophageal reflux disease without esophagitis; J44.9 Chronic obstructive pulmonary disease, unspecified; E03.9 Hypothyroidism, unspecified; F17.210 Nicotine dependence, cigarettes, uncomplicated
CPT/HCPCS: 36415; 80053; 80307; 87637; 99217; 99235; 99285; 80320; 80329; 81003; 84443; 85025; 99220; 99283; G0378

== ENCOUNTER 2020-05-11 00:32 | Outpatient (CLI) | payer MEDICAID, SELFPAY ==
--- OUTSIDE RECORDS SUMMARY | 2020-05-11 00:34 | XMS_ITS ---
:1965 Author Care Team Providers Name Role Phone DR. ANT CERON Primary Care Provider [phone] DR. ANT CERON Referring Provider [phone] Allergies Code Code System Name Reaction Severity Status Onset RxNorm Medrol ? ? Active ? Sulfa ? ? Active ? (Sulfonamide Antibiotics) Medications Name Status Start Date Stop Date ? ? bupropion HCl SR 200 mg tablet,12 hr sustained-release Active ? Not available Take 1 tablet twice a day by oral route. ciclopirox 8 % topical solution Active ? Not available APPLY TO THE AFFECTED AREA(S) BY TOPICA L ROUTE ONCE DAILY PREFERABLY AT BEDTIME OR 8 HOURS BEFORE WASHING hydroxyzine HCl 25 mg tablet Active ? Not available Take 1 tablet twice a day by oral route. Lamictal 200 mg tablet Active ? Not avail able Take 1 tablet every day by oral route. levothyroxine 75 mcg tablet Active ? Not available Take 1 tablet every day by oral route. magnesium 400 mg (as magnesium oxide) capsule Active ? Not available Take 1 capsule every day by oral route. melatonin 5 mg tablet Active ? Not availa ble Take 2 tablets every day by oral route at bedtime. nicotine 21 mg/24 hr daily transdermal patch Active ? Not available Apply 1 patch every day by transdermal route. omeprazole 20 mg capsule,delayed release Active ? Not available Take 1 capsule every day by oral route. pravastatin 20 mg tablet Active ? Not cristian ilable Take 1 tablet every day by oral route at bedtime. prazosin 2 mg capsule Active ? Not availa ble Take 1 capsule every day by oral route at bedtime. trazodone 150 mg tablet Active ? Not avai lable Take 1 tablet every day by oral route. Vistaril 25 mg capsule Active ? Not avail able Take 1 capsule twice a day by oral route. Vraylar 3 mg capsule Active ? Not availab le Take 1 capsule every day by oral route. Problems Name Status Onset Date Source ? Onychomycosis Active 09/02/2018 ? Hypothyroidism Active 09/02/2018 ? Hypomagnesemia Active 09/02/2018 ? Bipolar I Disorder Active 09/02/2018 ? Tobacco User Active 09/02/2018 ? Depressive Disorder Active 09/02/2018 ? Insomnia Active 09/02/2018 ? Obstructive Sleep Apnea Syndrome Active 09/02/2018 ? Restless Legs Active 09/02/2018 ? Gastroesophageal Reflux Disease Active 09/02/2018 ? Blood Glucose Abnormal Active 09/02/2018 ? History of Pneumothorax Active 09/02/2018 ? Procedures None recorded. Results Lab Results None recorded. Past Encounters None recorded. Social History Tobacco Smoking Status Never Smoker Notes: 10/28/18 Vaccine List None recorded. Plan of Care Reminders Provider Appointments None ? ? recorded. Lab None ? ? recorded. Referral None ? ? recorded. Procedures None ? ? recorded. Surgeries None ? ? recorded. Imaging None ? ? recorded. Vitals Height Weight BMI Blood Pressure 170.18 cm 74.84 kg 25.8 kg/m2 122/60 mm[Hg]
--- NOTE | 2020-05-11 07:45 | DI.CT_ITS ---
EXAM: CT CHEST WO CLINICAL HISTORY: F/U ABNL CHEST XRAY,R91.8,? MASS MID RT LUNG. TECHNIQUE: Imaging protocol: Axial computed tomography images were obtained and coronal and sagittal reformatted images were created and reviewed. COMPARISON: CT RENAL COLIC WO CONTRAST from 06/22/2017 CR XR CHEST 2V PA LATERAL from 04/01/2019 CR XR PORTABLE CHEST AP from 04/30/2020 FINDINGS: Tracheobronchial tree: Patent where visualized. Mediastinum and Kimberly: Stable pretracheal lymph node. Pulmonary parenchyma: Centrilobular and paraseptal emphysematous changes are present. There is an op acity now associated with a bulla in the left upper lobe. There are associated bronchiectatic change s. There is also a spiculated opacity seen in the right lower lobe which corresponds to the chest x- ray finding. It measures 2.5 x 2.2 cm. The lungs are otherwise clear. Pleura: No effusion or pneumothorax. Heart: The heart is not dilated. Mild coronary artery calcification. No pericardial effusion. Aorta: Thoracic aorta non-dilated. Atherosclerosis. Upper abdomen: There are scattered hypodensities seen within the liver which appear stable. They ar e too small for further characterization but likely reflect small cysts. Lymph nodes: Please see the above discussion. Bones:Normal. Soft tissues: Unremarkable. IMPRESSION: 1. Spiculated opacity in the right lower lobe which corresponds to the chest x-ray finding. It measu res 2.5 x 2.2 cm. There is an opacity also associated with the bulla in the left upper lobe with adj acent bronchiectatic changes. This may represent scarring, atelectasis, pneumonia or neoplasm. A PE T-CT scan may be considered for further evaluation. A follow-up CT scan of the chest may also be con sidered to assess for resolution. 2. Centrilobular and paraseptal emphysematous changes. RADIATION DOSE DELIVERED: 492.69mGy.cm Total DLP 492.69mGy.cm Total DLP DATA REPOSITORY: All CT scans at this facility are submitted to the National Radiology Data Registry (NRDR) Dose Index Registry (DIR) with the [employer] (ACR). RADIATION OPTIMIZATION: All CT scans at this facility use at least one of these dose optimization te chniques: automated exposure control; mA and/or kV adjustment per patient size (includes targeted exa ms where dose is matched to clinical indication); or iterative reconstruction.
== END 2020-05-11 00:52 ==
PROVIDERS: PCP Nurse Practitioner; Visit Provider Physician Assistant
DX: R91.8 Other nonspecific abnormal finding of lung field (principal)
CPT/HCPCS: 71250

== ENCOUNTER 2020-06-17 01:34 | Outpatient (CLI) | payer MEDICAID, SELFPAY ==
[2020-06-17 14:35] LABS: CREATININE 0.9 mg/dL (0.70-1.30)
[2020-06-17] MEDS: Omnipaque 350 MG/ML 100 ML BTL IJ (14:54)
--- NOTE | 2020-06-17 14:56 | DI.CT_ITS ---
EXAM: CT CHEST W CLINICAL HISTORY: F/U ABNL CXR,R91.8,S/P ANTIBIOTICS. TECHNIQUE: Multi planar reconstructions were performed. CONTRAST MATERIAL: Omnipaque 350; 70 cc COMPARISON: CT CT CHEST WO from 05/11/2020 FINDINGS: CHEST: LUNGS: In the left upper lobe there is an unchanged infiltrate intimately associated with a thin wal l bulla which appears unchanged, this superimposed upon emphysematous changes in both lung saldaña. L ower down in the left lung in the lateral basal segment of the left lower lobe there is a unchanged n oncalcified pleural based density measuring 9 x 6 millimeters, not associated with overlying rib dest ruction or pleural effusion. There are no new focal left lung findings. In the right lung there is a an unchanged area of infiltrate in the posterior right lower lobe which is also unchanged. Above this level of pleural based density seen on the prior study has resolved. In the most inferior aspect of the right lower lobe posterior basal segment there is a partially calc ified pleural based nodule which has decreased in size. There is no pleural effusion on either side. There are no findings in the trachea and mainstem bronchi. MEDIASTINUM: There is no new hilar are nor mediastinal adenopathy ag minimally prominent lymph node a nterior to the lópez is unchanged. There is no significant subcarinal adenopathy. No adenopathy in the anterior mediastinal fat. Benign lymph nodes are noted in both axillary regions. There is no s upraclavicular adenopathy. No obvious thyroid findings. Visualized thyroid unremarkable. CARDIAC: Heart size is normal. There is no pericardial effusion.Caliber of the ascending thoracic ao rta and aortic arch are normal and there is no dissection. However, the descending thoracic aorta be hind the heart exhibits atherosclerotic changes and this extends significantly into the abdominal aor ta where there is a advanced atherosclerotic disease of the partially included abdominal aorta. VISUALIZED UPPER ABDOMEN:There are no significant adrenal masses. Small cyst in the left hepatic lob e OSSEOUS: No significant osseous lesions.. IMPRESSION: 1. Compared to the prior CT scan of 05/11/2020 the spiculated infiltrates in the right lower lobe and left upper lobe remain unchanged, these findings superimposed upon bilateral diffuse emphysematous C OPD changes. 2. Other findings are stable the exception of decrease in size of a partially calcified nodule in the posterior basal segment of the right lower lobe and resolution of a previously present pleural base nodule on over the right posterior lung. 3. No pleural effusions and no significant intrathoracic adenopathy. Significantly atherosclerotic descending thoracic aorta and partially visualized abdominal aorta. RADIATION DOSE DELIVERED: 639.81mGy.cm Total DLP DATA REPOSITORY: All CT scans at this facility are submitted to the National Radiology Data Registry (NRDR) Dose Index Registry (DIR) with the [employer] (ACR). RADIATION OPTIMIZATION: All CT scans at this facility use at least one of these dose optimization te chniques: automated exposure control; mA and/or kV adjustment per patient size (includes targeted exa ms where dose is matched to clinical indication); or iterative reconstruction.
[2020-06-17] MEDS: Normal Saline - Diluent 50 ML VIAL IV (14:57)
== END 2020-06-17 01:54 ==
PROVIDERS: PCP Nurse Practitioner; Visit Provider Physician Assistant
DX: R91.8 Other nonspecific abnormal finding of lung field (principal); J44.9 Chronic obstructive pulmonary disease, unspecified
CPT/HCPCS: 71260; 82565; J3490

== ENCOUNTER 2020-06-28 12:22 | Emergency (ER) | payer MEDICAID, SELFPAY ==
[2020-06-28 12:27] VITALS: BP 125/87; PULSE 102; RESP 18; O2SAT 97
--- NOTE | 2020-06-28 13:01 | ED.GENADUL_ITS ---
Discharge Plan Disposition Patient Disposition: HOME Condition: Fair Discharge Details Clinical Impression: Depression with suicidal ideation, Bipolar disorder Primary Care Provider: Fariba Forde ED Provider: Katheryn Kimball Home Meds and New Rx's Prescriptions: Continued omeprazole 20 MG capsule,delayed release(DR/EC) 20 mg PO QAM RF: 0 magnesium oxide 400 mg (241.3 mg magnesium) tablet 400 mg PO QAM RF: 0 sennosides [senna] 8.6 mg Tablet 8.6 mg PO BID PRNRF: 0 sertraline 100 mg Tablet 100 mg PO DAILY RF: 0 hydroxyzine pamoate [Vistaril] 25 mg Capsule 25 mg PO BID RF: 0 trazodone 50 mg tablet 50 mg PO HS RF: 0 olanzapine 5 mg tablet 5 mg PO DAILY RF: 0 melatonin 3 mg tablet 6 mg PO HS RF: 0 levothyroxine 75 mcg tablet 75 mcg PO DAILY RF: 0 pravastatin 20 mg tablet 20 mg PO HS RF: 0 Discharge Instructions Instructions: Depression (ED), Help Prevent Suicide (ED) Additional Instructions: Keep your previously scheduled appointment. Ozzy with [facility] is on his way to pick you up. Please return to the ED if you have any further thoughts of wanting to harm yourself or others. Follow up with primary care provider in 3-5 days. Return to ED sooner if any worsening or concerns. Increase oral fluids. Referrals: Fariba Forde [Primary Care Provider] - Discharge Data Discharge Date/Time-TO BE ENTERED AT DEPARTURE: 06/28/20 15:17 Medical Decision Making 54 year male presents to ED with SI and HI agitation, States I've proved myself in the past that if someone messes with me they will be hurt I have been ripping at this scab on my arm, because I don't feel pain anymore, If I have Cancer, I'd rather just not be here. He reports threatening his land lady, states I don't care if she's a female if she messes with me she'll be in the hospital. Patient is refusing to get into gown or let go of his belongings. 1308:Patient is willing to let us draw blood and get UA, placed in a gown. Medical clearance work-up ordered, CPS so at bedside, mental health evaluation is pending at this time. 1452: Spoke with Ozzy Roberson with [facility] who is very familiar with this patient he is going to come and pick patient up and take him to his primary appointment which is pending he says it is very important for him to do this. He states that these behaviors which he is eliciting are very like him. I did inform him that I ordered 10 mg of olanzapine p.o. prior to evaluation, he is on his way to come get the patient taken to his appointment. I do feel comfortable with this patient being with a reliable person. HPI General Mode of arrival: ambulatory . Date/Time Provider Initiated Documentation: 06/28/20 12:30 . Limitations to Documentation: no limitations . Information obtained by: patient . HPI Narrative: 54 year male presents to ED with SI and HI agitation, States I've proved myself in the past that if someone messes with me they will be hurt I have been ripping at this scab on my arm, because I don't feel pain anymore, If I have Cancer, I'd rather just not be here. He reports threatening his land lady, states I don't care if she's a female if she messes with me she'll be in the hospital. Patient is refusing to get into gown or let go of his belongings. Related Data Home Medications Medication Instructions Recorded Confirmed omeprazole 20 mg PO QAM 10/16/13 06/28/20 magnesium oxide 400 mg PO QAM 10/20/19 06/28/20 levothyroxine 75 mcg PO DAILY 12/19/19 06/29/20 melatonin 6 mg PO HS 12/19/19 06/28/20 olanzapine 5 mg PO DAILY 12/19/19 06/28/20 pravastatin 20 mg PO HS 12/19/19 06/28/20 trazodone 50 mg PO HS 12/19/19 06/28/20 hydroxyzine pamoate [Vistaril] 25 mg PO BID 04/05/20 06/29/20 sennosides [senna] 8.6 mg PO BID PRN 04/05/20 06/28/20 sertraline 100 mg PO DAILY 04/05/20 06/28/20 Allergies Allergy/AdvReac Type Severity Reaction Status Date / Time Sulfa (Sulfonamide Allergy Severe Swelling/Ed Unverified 06/28/20 19:11 Antibiotics) jostin General Stated Complaint: PsychEval ABA: 2 Review of Systems Narrative: Constitutional: Negative for weight loss, alert and oriented, well groomed, normal body habitus, appears anxious. HEENT: Denies trauma, headaches, blurry vision, nasal discharge, sore throat, trouble swallowing. Chest: Denies chest pain, palpitations, irregular rhythm, hypertension. Respiratory: Denies Shortness of breath, cough, hemoptysis. GI: Denies abdominal pain, nausea, vomiting, diarrhea, constipation. : Denies dysuria, hematuria, flank pain, rectal bleeding. Neuro: Denies dizziness, blurry vision, weakness, syncope, headache or facial numbness. Hematologic: Denies easy bruising, intolerance to heat or cold, hair loss. Psychiatric Psychiatric: Reports depression, Reports hopelessness, Reports irritability, Reports homicidal ideation and Reports suicidal ideation [facility] Medical History Anxiety Bipolar disorder COPD (chronic obstructive pulmonary disease) GERD (gastroesophageal reflux disease) Hypercholesterolemia Hypothyroid Traumatic pneumothorax 2016, chest tube x2 Surgical History History of ankle surgery S/P thoracostomy tube placement Social History Smoking/Tobacco Use Status: Current every day Tobacco Type: cigarettes Smoking risk assessment performed?: Yes Alcohol Intake: never Drug use: Daily Substance use type: marijuana Do you feel safe at home: No (pt states he doesn't feel safe.PT lives alone) Do you feel safe in your relationship?: Yes Exam Psych Appearance: well kempt Speech and Movement: agitated and speech clear Mood: anxious mood and irritable mood Affect: anxious affect and irritable affect Attitude: cooperative and guarded Thought Process: normal Thought Content: compulsions, homicidality and suicidality Insight: poor Judgment: poor Course Vital Signs Vital signs: Vital Signs Pulse 102 H 06/28/20 12:27 Respiratory Rate 18 06/28/20 12:27 Blood Pressure 125/87 06/28/20 12:27 Pulse Oximetry 97 06/28/20 12:27 Pulse 102 H 06/28/20 12:27 Respiratory Rate 18 06/28/20 12:27 Respiratory Effort Non-Labored 06/28/20 12:41 Blood Pressure 125/87 06/28/20 12:27 Blood Pressure Position Sitting 06/28/20 12:27 Pulse Oximetry 97 06/28/20 12:27
--- NOTE | 2020-06-28 13:10 | CMSP_ITS ---
- If Service Date Differs Date of service: 06/28/20 Time of Service: 13:10 Care Management Safety Plan Status: Voluntary Chief Complaint: Asim is a 54 year old male who presents in the ED due to being angry and upset. He reportedly had an argument with his landlady which caused him to become dysregulated. Asim receives services through the [facility] Program at [facility]. CM will respond to ED to assess patient after patient has been medically cleared and assessed by screener. If screener deems patient meets criteria for psychiatric stabilization CM will facilitate interdepartmental huddle with [facility] screener for safety planning considerations and meet with patient to review [facility] policy and safety plan, establish individual wishes for treatment and maintain patient rights. In the interim; please note safety plan below to guide patient care while awaiting further assessment in the ED. SAFETY PLAN: 1. Will remain on suicide precautions and in paper clothes. 2. Will remain in room under direct supervision of one-on-one staff at all times provided by [employer]PSO, [employer], CONTENT STRATEGIST director student union. 3. May have paper cups, plates, finger foods as well as a cardboard spoon with which to eat meals. 4. Follow [facility] Management of the Admitted Behavioral Health Patient policy. 5. Comfort bath system only. 6. No personal belongings 7. No visitors. 8. Phone: No phone calls permitted at this time. 9. Due to VOLUNTARY status, if patient wishes to leave [facility], staff will contact [facility] Crisis Screener ([phone]) and On-Call Water Chaser ([phone]) as soon as possible. In the event of elopement, notify [facility] Police ([phone]). If deemed appropriate for inpatient psychiatric care, safety plan will be established with patient, and care team, to adhere to patient goals, identify restrictions based on behavioral status, address nutrition, and determine allowed personal belongings, tools for hygiene and personal care. As well plan will determine level of activity including ambulation, level of supervision, visitors, and determine privileges based on level of acuity, behaviors and level of engagement by patient. DISPOSITION: Asim is evaluated via zoom by Ozzy Roberson, [facility] OPERATIONS RESEARCH ENGINEER case man ager. Asim is able to enter into a safety plan, so he is being discharged. Ozzy is picking him up from [facility] and driving him to an appointment previously scheduled with his PCP.
[2020-06-28 13:30] LABS: Abs Immature Grans 0.02 10^3/uL (0.0-0.06); Absolute Basophil Count 0.04 10^3/uL (0.0-0.2); Absolute Eosinophil Count 0.14 10^3/uL (0.0-0.7); Absolute Lymphocyte Count 1.94 10^3/uL (1.2-3.4); Absolute Monocyte Count 0.47 10^3/uL (0.1-0.8); Absolute Neutrophil Count 6.38 10^3/uL (1.2-6.7); Basophils % 0.4; Eosinophils % 1.6; HCT 44.7 % (40.0-50.0); HGB 14.8 g/dL (13.5-17.5); Immature Grans % 0.2; Lymphocytes % 21.6; MCH 27.3 pg (27.0-33.0); MCHC 33.1 % (32.0-36.0); MCV 82.3 fL (80-95); MPV 10.2 fL (8.0-11.0); Monocytes % 5.2; Nucleated RBC 0 %; Platelet Count 218 10^3/uL (130-400); RBC 5.43 10^6/uL (4.36-5.78); RDW 14.2 % (11.8-14.1); RDW-SD 42.1 fL; WBC 8.99 10^3/uL (4.4-10.8)
[2020-06-28 13:31] LABS: Bilirubin Negative (Negative); Blood Negative (Negative); Clarity Clear (Clear); Glucose Negative (Negative); Ketones Negative (Negative); Leukocyte Esterase Negative (Negative); Nitrite Negative (Negative); Specific Gravity 1.025 (1.005-1.025); Urobilinogen 0.2 EU/dL (Up TO 0.2)
[2020-06-28 13:40] LABS: *AMPHETAMINES SCREEN URINE Negative (Negative); *BARBITURATES SCREEN URINE Negative (Negative); *BENZODIAZEPINES SCREEN URINE Negative (Negative); Cannabinoids THC POSITIVE (Negative); Cocaine Screen,Urine Negative (Negative); METHADONE URINE SCREEN Negative (Negative); OPIATES URINE SCREEN Negative (Negative); Tricyclic Antidepressants Negative (Negative)
[2020-06-28 13:44] LABS: Acetaminophen < 2 ug/mL (10-30); Salicylate 4.2 mg/dL (<2.8)
[2020-06-28 13:54] LABS: ALT 44 U/L (16-63); AST 32 U/L (15-37); Albumin 3.7 g/dL (3.4-5.0); Alkaline Phosphatase 123 U/L (46-116); Anion Gap 9.2 mmol/L (3-11); BUN 14 mg/dL (7-18); Bilirubin, Total 0.3 mg/dL (0.2-1.0); CO2 24.8 mmol/L (21.0-32.0); CREATININE 0.9 mg/dL (0.70-1.30); Calcium 8.7 mg/dL (8.5-10.1); Chloride 103 mmol/L (98-107); ETHANOL BLOOD < 3.0 mg/dL (<3); Glucose 128 mg/dL (74-106); Potassium 3.9 mmol/L (3.5-5.1); Sodium 137 mmol/L (136-145); TSH 5.17 uIU/mL (0.36-3.74); Total Protein 7.7 g/dL (6.4-8.2)
[2020-06-28] MEDS: LORazepam 1 MG TAB PO (13:59)
[2020-06-28] MEDS: OLANZapine 10 MG TAB PO (14:40)
--- NOTE | 2020-06-28 14:50 | PDOC.MHCN ---
Date of service: 06/28/20 Time of Service: 00:19 Mental Health Crisis Note Presenting Issue How did you arrive at the ED and why did you come: Client saying you'll find me in the gutter. Precipitating Factors Agitated. Some suicidal ideation contingent upon positive diagnosis for lung cancer. Upset with downstairs neighbors, mistreatment of children and animals, says if not properly reported they'll have to deal with him. Disposition BEHAVIOR: Agitated. EYE CONTACT: distracted, but fair MOOD: agitated AFFECT: congruent to mood. APPETITE: N/A SLEEP(trouble falling/staying asleep: N/A Plan client to attend appointment ([facility]) supported by this parts data writer ([employer] staff)
[2020-06-28 16:23] LABS: Calculated LDL 116 mg/dL (<100); Cholesterol 165 mg/dL (<200); HDL Cholesterol 35 mg/dL (40-60); Triglyceride 72 mg/dL (<150)
== END 2020-06-28 15:17 | disposition home or self-care (01) ==
PROVIDERS: Emergency Provider Registered Nurse Emergency; PCP Nurse Practitioner
DX: F41.8 Other specified anxiety disorders (principal); F31.9 Bipolar disorder, unspecified; R45.851 Suicidal ideations; R45.850 Homicidal ideations
CPT/HCPCS: 36410; 36415; 80053; 80061; 80307; 99285; 80320; 80329; 81003; 83036; 84443; 85025; 99283

== ENCOUNTER 2020-06-28 18:15 | Emergency (ER) | payer MEDICAID, SELFPAY ==
[2020-06-28 18:50] VITALS: BP 146/93; PULSE 108; RESP 18; TEMP 36.6; O2SAT 94
--- NOTE | 2020-06-28 18:57 | ED.GENADUL_ITS ---
Discharge Plan Disposition Patient Disposition: HOME Condition: Stable Discharge Details Clinical Impression: Bipolar disorder Primary Care Provider: Fariba Forde ED Provider: Jaime Ballard Home Meds and New Rx's Prescriptions: Continued omeprazole 20 MG capsule,delayed release(DR/EC) 20 mg PO QAM RF: 0 magnesium oxide 400 mg (241.3 mg magnesium) tablet 400 mg PO QAM RF: 0 sennosides [senna] 8.6 mg Tablet 8.6 mg PO BID PRNRF: 0 sertraline 100 mg Tablet 100 mg PO DAILY RF: 0 hydroxyzine pamoate [Vistaril] 25 mg Capsule 25 mg PO BID RF: 0 trazodone 50 mg tablet 50 mg PO HS RF: 0 olanzapine 5 mg tablet 5 mg PO DAILY RF: 0 melatonin 3 mg tablet 6 mg PO HS RF: 0 levothyroxine 75 mcg tablet 75 mcg PO DAILY RF: 0 pravastatin 20 mg tablet 20 mg PO HS RF: 0 Discharge Instructions Instructions: Bipolar Disorder (ED) Additional Instructions: At this time you have been reevaluated by the psychiatrist and no longer will be held involuntarily. After another evaluation with our mental health team, you are able to safety plan home, are no longer suicidal or homicidal, and are requesting to go home. We are arranging transfer home for you. Please watch for new or worsening symptoms and return to the ER for any concerns. Please follow the instructions given to you by the mental health team. Continue all medications as directed. Please reach out to your primary care provider tomorrow for prompt outpatient reevaluation. Discharge Data Discharge Date/Time-TO BE ENTERED AT DEPARTURE: 06/29/20 20:45 Medical Decision Making <RENAE Vidal - Last Filed: 06/29/20 00:29> Patient is a 54-year-old male well-known to the department of myself, presenting today via [facility] with chief complaint of suicidal ideations. Patient was seen here earlier today with similar complaint. He was discharged into the care of his telephonic nurse case manager however, and was brought to his primary care. He reports that he had initially been feeling comfortable after the time of discharge but that his primary care told him that he had cancer after his discharge from here today. He states that this then caused his suicidal ideations to greatly increase. He canceled all of his housing assistance and utilities. He denies a plan to myself but states I will find a way. Patient did contact case management who expresses want to inflict self-harm, they contacted P who brought him in for evaluation. Patient does not want an outpatient hospitalization at this time as he feels and will not do anything for me, I always get discharged and do it anyway. He does not wish to have any further work-up or treatment of his potential cancerous lesions in the pelvis. Patient wants to commit suicide and is very clear that he will be successful if allowed to go home. On physical exam, patient does appear to be at his baseline. He is alert and oriented. Is not agitated or aggressive. He is quite agreeable to exam and work-up here today. Plan to consult with mental health. CPS O at bedside. Patient refusing to change into paper close. He was examined by police, safe in personal clothing. Mental health evaluated the patient and feels patient needs to be admitted. Patient is not willing to be voluntarily admitted and will be involuntarily admitted at this time for suicidal ideation. EE paperwork was completed by myself and Dr. Aleman. Patient continues to be resting comfortably. We will give the patient his evening meds. Is there is no beds currently, Patient Will Be kept in the ED., Care management made safety plan. At the end of my shift, care transitioned to Dr. Ragsdale. COVID negative. Labs completed this afternoon, discussed with MH and we do not feel that repeating these is necessary. Free T4 added on, normal. <Katheryn Kimball - Last Filed: 06/30/20 08:16> 0814: Care assumed from provider (Ammon Ragsdale DO, ER attending) Discussed patient details and case and pending workup and disposition. Patient is hemodynamically stable, and alert and oriented, he is here under the ED order involuntary for SI and HI. Patient's normal daily meds placed. I am familiar with this patient case I did see him yesterday, at this time patient is sleeping comfortably, breathing eupneic CPSO is at bedside. 1036: Patient is awake and, breakfast ordered, day meds given by primary waitstaff, he has no continued to be at bedside for observation. Patient has remained calm and cooperative throughout stay, has remained stable. He has received his normal daily medications. 1515: Call received from [facility] will request a second mental health evaluation at approximately 1730 p.m. or after when psychiatrist comes on to shift. Patient has remained calm, cooperative has been sleeping most of the day, dinner tray ordered for patient. Care is to be handed off to oncoming provider RENAE Morris I did discuss patient case in details the need for his p.m. meds to be ordered. He verbalizes understanding. At this time placement is pending. Patient was hemodynamically stable at the time of this dictation. <RENAE Minaya - Last Filed: 06/29/20 19:59> At 1600 on 06-29-2020 I assumed care of this gentleman from my colleague KENISHA Kimball. Patient presented to the ER yesterday after being diagnosed with cancer, he was feeling suicidal and did not care what happened to him. Please see initial HPI and examination. At time of signout patient has already been medically cleared, he was an emergency cert for involuntary psychiatric placement. Plan was to have a repeat psychiatric evaluation at approximately 1730. I was able to review the second certification by psychiatrist and personally speak with Dr. Carver who feels as though the patient is no longer in need to be an involuntary emergency psychiatric patient. He feels as though the patient can be safely discharged. Tamie from [facility] evaluated the patient and was able to safety plan with him and he has a clear outpatient plan. I personally evaluated the patient, he denies any suicidal or homicidal ideations, feels safe, and would like to be discharged home. He admits to increased stress given his recent diagnosis but is comfortable going home if we can find him a ride, he will follow up as an outpatient as recommended by [facility], and he was encouraged to return to the ER for new or worsening symptoms. He denies any suicidal or homicidal ideations. Patient has no acute medical concerns or complaints and is now requesting discharge. HPI <RENAE Vidal - Last Filed: 06/29/20 00:29> General Mode of arrival: ambulatory (brought in by police) . Date/Time Provider Initiated Documentation: 06/28/20 18:57 . Limitations to Documentation: no limitations . Information obtained by: patient, police, RN notes reviewed and old records reviewed . History of Present Illness 54 year old M presents to the emergency department with the chief complaint of suicidal ideations, described as severe and similar to prior episodes, Patient started experiencing this unknown (intermittent for years, worse after dx of cancer this afternoon) and it has been constant. No relieving factors improve symptom(s), No exacerbating factors reported . Patient notes no other symptoms.. Patient did receive the following treatments prior to arrival, none Related Data Home Medications Medication Instructions Recorded Confirmed omeprazole 20 mg PO QAM 10/16/13 06/28/20 magnesium oxide 400 mg PO QAM 10/20/19 06/28/20 levothyroxine 75 mcg PO DAILY 12/19/19 06/29/20 melatonin 6 mg PO HS 12/19/19 06/28/20 olanzapine 5 mg PO DAILY 12/19/19 06/28/20 pravastatin 20 mg PO HS 12/19/19 06/28/20 trazodone 50 mg PO HS 12/19/19 06/28/20 hydroxyzine pamoate [Vistaril] 25 mg PO BID 04/05/20 06/29/20 sennosides [senna] 8.6 mg PO BID PRN 04/05/20 06/28/20 sertraline 100 mg PO DAILY 04/05/20 06/28/20 Allergies Allergy/AdvReac Type Severity Reaction Status Date / Time Sulfa (Sulfonamide Allergy Severe Swelling/Ed Unverified 06/28/20 19:11 Antibiotics) jostin General ABA: 2 Review of Systems <RENAE Vidal - Last Filed: 06/29/20 00:29> Constitutional Constitutional: Reports as per HPI, Denies chills, Denies fatigue, Denies fever(s), Denies headache(s) and Denies weakness Eyes Eyes: Denies change in vision ENT Ears, Nose, Mouth, and Throat: Denies headache(s) Cardiovascular Cardiovascular: Reports as per HPI, Denies chest pain, Denies dyspnea and Denies dyspnea on exertion Respiratory Respiratory: Reports as per HPI, Denies cough, Denies dyspnea and Denies dyspnea on exertion Musculoskeletal Musculoskeletal: Denies abnormal gait Integumentary/Breasts Skin/Breast: Reports as per HPI and Denies rash Neurologic Neurologic: Denies abnormal movements, Denies abnormal speech, Denies abnormal gait, Denies headache(s), Denies paresthesias and Denies weakness Psychiatric Psychiatric: Reports as per HPI, Reports anxiety, Reports depression, Reports hopelessness, Reports anhedonia, Reports homicidal ideation and Reports suicidal ideation Endocrine Endocrine: Denies fatigue PFSH <RENAE Vidal - Last Filed: 06/29/20 00:29> Medical History Anxiety Bipolar disorder COPD (chronic obstructive pulmonary disease) GERD (gastroesophageal reflux disease) Hypercholesterolemia Hypothyroid Traumatic pneumothorax 2017, chest tube x2 Surgical History History of ankle surgery S/P thoracostomy tube placement Social History Smoking/Tobacco Use Status: Current every day Tobacco Type: cigarettes Smoking risk assessment performed?: Yes Alcohol Intake: never Drug use: Daily Substance use type: marijuana Do you feel safe at home: No (pt states he doesn't feel safe.PT lives alone) Do you feel safe in your relationship?: Yes Exam <RENAE Vidal - Last Filed: 06/29/20 00:29> Const General: cooperative, healthy appearing, comfortable, no acute distress, well developed and well groomed Nutritional Appearance: average body habitus and well nourished Orientation: alert and awake Eyes General: appearance normal, both eyes and all related structures Resp Effort & Inspection: normal respiratory effort, able to speak in complete sentences and no respiratory distress Auscultation: clear to auscultation bilaterally, no rales, no rhonchi and no wheezes Cardio Rate: regular rate Rhythm: regular rhythm Heart Sounds: S1 normal and S2 normal Skin General skin exam: no rashes or lesions noted Trauma: no lacerations or abrasions Neuro General: patient alert and patient awake Cognition: normal cognition Speech: speech normal Gait: normal gait Psych Appearance: grossly normal Mental Status: mental status grossly normal Speech and Movement: speech and movement normal Mood: congruent mood Affect: irritable affect Attitude: cooperative Thought Process: normal Thought Content: normal Insight: fair Judgment: fair Sign Out <RENAE Vidal - Last Filed: 06/29/20 00:29> Sign Out Data: Sign Out Comment: Care transitioned to Dr. Ragsdale. Patient involuntarily a dmitted for suicidal ideation. Covid negative. MH screening completed. Last updated by Kandace Gustafson PA at 06/28/20 23:59 Sign Out Comment: Patient stable throughout the evening. Patient here involuntarily admitted for suicidal ideation. Last updated by Mickey Ragsdale DO at 06/29/20 07:59 Sign Out Comment: Pending mental health evaluation and admission and transfer to a mental health facility will need night home meds ordered, he is involuntary status at this time for suicidal and homicidal ideation. Last updated by Katheryn Kimball at 06/29/20 16:11
--- NOTE | 2020-06-28 20:42 | PDOC.MHPN2 ---
Date of service: 06/28/20 Time of Service: 20:49 Mental Health Progress Note Progress Note Progress Note: Presenting Issue: Client presented to the ED via [facility] transport for SI. Precipitating Factors Client is endorsing SI, and was diagnosed with lung cancer earlier today by his PCP. Client states that he cancelled his insurance, cancelled his fuel assistance, cancelled his food stamps, and closed his post office box today because I'm not gonna suffer, I'm gonna take my life. Client denies plan, stating, I won't tell anybody how I'm gonna do it, I'm just gonna kill myself. Whatever I do, I do. Disposition * Behavior: Client is calm and cooperative, and responsive to this display card writer's questions *Eye Contact: Client provides good eye contact *Mood: Depressed *Affect: Congruent; flat *Appetite: Client states he ate a sandwich, earlier today, but that's all *Sleep(troubel falling/staying asleep): Client reports he is sleeping poorly, a couple hours per night. Plan(please elaborate and include that physician is consulted with plan and/or placement): Client is on EE status, and will be involuntarily hospitalized. Client will remain in the ED to await placement. Clinician's Name , Title, and Signature Caitlyn Caballero [facility] Make sure that you are photocopying and submitting this to [facility] records Dept. to be scanned into chart.
--- NOTE | 2020-06-28 21:16 | NUR.NOTE ---
Nursing Note:Patient was seen here in the ER this AM. Patient was discharged to go to a PCP appt. . Patient tells me his PCP told him he had Cancer. Patient apparently went straight to [facility] [employer] and canceled his electricity, heat and all other utilities. Patients counselor/Mental Health called [facility] to pick patient up I believe and bring him to the ER..
--- NOTE | 2020-06-28 21:32 | CMSP_ITS ---
- If Service Date Differs Date of service: 06/28/20 Time of Service: 21:32 Care Management Safety Plan Status: Involuntary Chief Complaint: Asim is a 54 year old male who presents in the ED after reportedly receiving a new diagnosis of lung cancer today. Earlier today, he reportedly had an argument with his landlady which caused him to become dysregulated. He then presented to the ED, but was discharged, which is when he went to his scheduled appointment with his PCP. Per report, he stated that he does not want to suffer, and that he will take his life. Asim receives services through the SUPERVISOR VOLUNTEER [employer] Program at [facility]. INVOLUNTARY FOR INPATIENT PSYCHIATRIC STABILIZATION. Safety plan has been established to meet the needs of the patient, and consideration of the care team, to adhere to patient goals, identify r estrictions based on behavioral status, address nutrition, and determine allowed personal belongings, tools for hygiene and personal care. Determine level of activity including ambulation, level of supervision, visitors, and determine privileges based on behaviors and level of engagement by pt. SAFETY PLAN: 1. Will remain on suicide precautions. Asim may remain in his own clothing and will be wanded by security for safety vs paper clothes, at the discretion of primary care team. 2. Will remain in room under direct supervision of one-on-one staff at all times provided by CPSO, SEALANT MIXER, CONSULTANT IN ERGONOMICS AND SAFETY halver machine operator. 3. May have paper cups, plates, finger foods as well as a cardboard spoon with which to eat meals. 4. Follow [facility] Management of the Admitted Behavioral Health Patient policy. 5. Comfort bath system only. 6. No personal belongings, with the exception of his glasses. 7. No visitors. 8. Phone: Limited to his supportive community care team, including his SUPERVISOR VOLUNTEER SERVICES piano case maker, at the discretion of staff. 9. Bathroom privileges with supervision Due to INVOLUNTARY status, patient is being held at [facility] by the Department of Mental Health ([facility]) until 2nd certification by [facility] Psychiatrist can be performed (within 24 hours). Staff will provide de-escalation support (CPI) as needed. If patient wishes to leave [facility], staff will contact [facility] Crisis Screener ([phone]) and On-Call Exerciser ([phone]) as soon as possible. In the event of elopement, notify [place] [employer] Police ([phone]). Patient is currently involuntarily at [facility]. [facility] Frontline Medical Practitioners will continue seeking placement. Please contact the Detail Assembler Exerciser ([phone]) for any needed changes to Safety Plan. Safety plan has been provided to interdepartmental care team. Patient will be transported by refractive surgeon at time of discharge.
--- NOTE | 2020-06-28 21:32 | PDOC.CMSAFED ---
- If Service Date Differs Date of service: 06/28/20 Time of Service: 21:32 Care Management Safety Plan Status: Involuntary Chief Complaint: Asim is a 54 year old male who presents in the ED after reportedly receiving a new diagnosis of lung cancer today. Earlier today, he reportedly had an argument with his landlady which caused him to become dysregulated. He then presented to the ED, but was discharged, which is when he went to his scheduled appointment with his PCP. Per report, he stated that he does not want to suffer, and that he will take his life. Asim receives services through the WOOL HANDLER Program at [facility]. INVOLUNTARY FOR INPATIENT PSYCHIATRIC STABILIZATION. Safety plan has been established to meet the needs of the patient, and consideration of the care team, to adhere to patient goals, identify restrictions based on behavioral status, address nutrition, and determine allowed personal belongings, tools for hygiene and personal care. Determine level of activity including ambulation, level of supervision, visitors, and determine privileges based on behaviors and level of engagement by pt. SAFETY PLAN: 1. Will remain on suicide precautions. Asim may remain in his own clothing and will be wanded by security for safety vs paper clothes, at the discretion of primary care team. 2. Will remain in room under direct supervision of one-on-one staff at all times provided by CPSO, DONTAE, SUPERVISOR ASSEMBLING refinery operator assistant. 3. May have paper cups, plates, finger foods as well as a cardboard spoon with which to eat meals. 4. Follow [facility] Management of the Admitted Behavioral Health Patient policy. 5. Comfort bath system only. 6. No personal belongings, with the exception of his glasses. 7. No visitors. 8. Phone: Limited to his supportive community care team, including his WOOL HANDLER case coordinator, at the discretion of staff. 9. Bathroom privileges with supervision Due to INVOLUNTARY status, patient is being held at [facility] by the Department of Mental Health ([facility]) until 2nd certification by [facility] Psychiatrist can be performed (within 24 hours). Staff will provide de-escalation support (CPI) as needed. If patient wishes to leave [facility], staff will contact [facility] Crisis Screener ([phone]) and On-Call Accounts Receivable Executive ([phone]) as soon as possible. In the event of elopement, notify [facility] Police ([phone]). Patient is currently involuntarily at [facility]. [facility] Frontline Nursing Agency Manager will continue seeking placement. Please contact the Balling Head Tender Accounts Receivable Executive ([phone]) for any needed changes to Safety Plan. Safety plan has been provided to interdepartmental care team. Patient will be transported by geospatial intelligence analyst at time of discharge.
[2020-06-28 22:14] LABS: FREE T4 1.38 ng/dL (0.76-1.46)
[2020-06-28 22:57] LABS: Source Nasopharynx
[2020-06-28 23:34] LABS: Influenza A PCR Negative (Negative); Influenza B PCR Negative (Negative); RSV PCR Negative (Negative)
[2020-06-28 23:48] LABS: COVID-19 PCR Negative (Negative)
[2020-06-29] MEDS: Pravastatin 20 MG TAB PO (01:34)
[2020-06-29] MEDS: Senna TAB 1 TAB PO (01:34)
[2020-06-29] MEDS: Melatonin 3 MG TAB 6 MG PO (01:34)
[2020-06-29] MEDS: traZODone 50 MG TAB PO (01:34)
[2020-06-29] MEDS: hydrOXYzine PAMOATE 25 MG CAP PO ×2 (01:34→10:15)
[2020-06-29 01:40] VITALS: BP 104/73; PULSE 73; RESP 16; TEMP 36.3; O2SAT 94
--- NOTE | 2020-06-29 05:30 | NUR.NOTE ---
Nursing Note: Call back to Asim Mclaughlin at [facility] and gave him patient report. Patient sleeping for most of shift, took his medication , more cooperative, changed into hospital pajama pants and bagged up his clothing.
[2020-06-29] MEDS: Omeprazole 20 MG CAPCR PO (10:15)
[2020-06-29] MEDS: Sertraline 50 MG TAB 100 MG PO (10:15)
[2020-06-29] MEDS: Levothyroxine 75 MCG TAB PO (10:15)
[2020-06-29] MEDS: OLANZapine 5 MG TAB PO (10:15)
[2020-06-29] MEDS: Magnesium Oxide 400 MG TAB PO (10:16)
--- NOTE | 2020-06-29 11:44 | PDOC.MHCN ---
Date of service: 06/29/20 Time of Service: 11:44 Mental Health Crisis Note Presenting Issue How did you arrive at the ED and why did you come: Pt arrived to the ER last night via VSP after reporting to his SHEET PILE HAMMER OPERATOR team that he was going to slit his wrists and bleed out. Precipitating Factors Pt is denying SI and HI however, is also making statements that suggest he would act on those thoughts if his neighbors said or did anything when he got home. Disposition BEHAVIOR: Pt is cooperative and engaged today duing his assessment. EYE CONTACT: Pt makes good eye contact during the assessment. MOOD: Pt presents as relaxed until a discussion was had about his neighbor and his HI toward them. He then became escalated in his speech and thoughts were more of a fight or flight response. AFFECT: Pts affect is normal. APPETITE: Pt's reported his appetite is good. SLEEP(trouble falling/staying asleep: Pt reported he slept last night. Plan This clinician explained to Pt that they were not comfortable in allowing him to leave at this time because his risk to his neighbor still seems high. Pt will have his second certification today with a psychiatrist and they can make the decision if they believe he needs to be released. Art Installer from [facility] will make a referral for palliative care to assist Pt in his new diagnosis of cancer. Signature Clinician's Name/Title: Tamie Mccord MS, [facility] Emergency Services Clinician, [facility]
--- NOTE | 2020-06-29 19:32 | PDOC.MHCN_ITS ---
Date of service: 06/29/20 Time of Service: 19:32 Mental Health Crisis Note Presenting Issue How did you arrive at the ED and why did you come: Pt arrived yesterday via VSP for assessment for SI and HI. Precipitating Factors Pt is denying SI and HI today and was assessed by Dr. Carver from [facility] for his second certification. Disposition BEHAVIOR: Pt is cooperative and engaged and calm this evening. EYE CONTACT: PT makes good eye contact. MOOD: Pt reported he is a little bummed about his recent diagnosis but reports that he will work around that. AFFECT: Pt's affect is normal. APPETITE: Pt reported he is eating. SLEEP(trouble falling/staying asleep: Pt reported he is sleeping good. Plan Pt to return home via RCT. Pt is not going to engage with his neighbors. Pt will call police if neighbors engage with him. Pt will call [facility] if he is struggling and needs support. Pt will call 911 if he is in imminent danger. Pt will be contacted by his STEAM SHOVEL OPERATING ENGINEER team in venancio am to work out meds and for a follow up check in. Signature Clinician's Name/Title: Tamie Mccord MS, [facility] Emergency Services Clinician, [facility]
--- NOTE | 2020-06-29 22:56 | PDOC.ERCMPRO ---
- If Service Date Differs Date of service: 06/29/20 Time of Service: 22:56 Care Management Progress Note OLIMPIA met with Asim this morning and facilitated a zoom with [facility] screener. At that time, Asim was very upset about his neighbors, indicating that he may cause them harm if he is near them today. Tamie [facility], reported that she will maintain his EE status until the second certification later in the day. The second certification was at 18:[address] Carver, Psychiatrist from [facility]. OLIMPIA facilitated, and took part in this meeting. Dr. Carver did not feel that Asim met criteria for involuntary admission to a psychiatric facility. As he was no longer being held, he agreed to make a plan for safety with KADEN Willett, in order to return home. Asim was discharged home with close follow up from [facility]. OLIMPIA coordinated transportation home via RCT private vehicle.
--- NOTE | 2020-06-30 08:45 | NUR.NOTE ---
Nursing Note: Access patient chart to find out disposition for EE paperwork. Jinny Carpenter
== END 2020-06-29 20:45 | disposition home or self-care (01) ==
PROVIDERS: Physician Assistant; Emergency Provider Physician Assistant; PCP Nurse Practitioner
DX: F41.8 Other specified anxiety disorders (principal); F31.9 Bipolar disorder, unspecified; R45.851 Suicidal ideations; Z03.818 Encounter for observation for suspected exposure to other biological agents ruled out; R45.850 Homicidal ideations
CPT/HCPCS: 36410; 36415; 80053; 80061; 80307; 99285; 80320; 80329; 81003; 83036; 84439; 84443; 85025; 99283; 99284

== ENCOUNTER 2020-06-30 20:18 | Observation (INO) | payer MEDICAID, SELFPAY ==
--- NOTE | 2020-06-30 20:19 | W.ED.GENAD ---
Discharge Plan Disposition Patient Disposition: [facility] INPATIENT Condition: Stable Discharge Details Clinical Impression: Depression with suicidal ideation Admit Date/Time: 07/01/20 20:45 Admit Provider: Conner Omer Attending Provider: Conner Omer Primary Care Provider: Fariba Forde ED Provider: Jewel Lackey Discharge Data Discharge Date/Time-TO BE ENTERED AT DEPARTURE: 07/01/20 21:20 Medical Decision Making <RENAE Vidal - Last Filed: 07/02/20 12:24> Patient is a 54 year old male, well known to myself and the department, brought in via EMS for worsening SI. He was seen here two days ago at which time he was admitted for SI. However, after the second cert with , patient had been notably imporved and was felt he could be d/c to home with safety plan. He states that since being discharged, his symptoms have worsened despite initially feeling improved. States he has not taken his medications. He has cancelled all of his housing assistance and insurance. He has struggled with SI for years but was dx'ed with lesions concerning for lung cancer. Patient did not initially want evaluation for these but is currently wanting to seek treatment. He had been 'ed this week for this SI but now wants to be admitted voluntarily. On exam, patient appears to be at his baseline. He is anxious and sad. His HR is elevated at 125. This may be anxiety. EMS had questioned if he was febrile, he denies sxs of illness. He is afebrile here. He denies HARVEY, SOB, CP, fevers/chills, cough, GI upset. He is suicidal. Has good eye contact, wants to be admitted. CPSO is at bedside. Will hydrate the patient. We will obtain baseline labs, I am concerned about his tachycardia. This may alternatively be associated with his abrupt cessation of his medications. He has not taken these since his d/c from here. Will give his typical medications. Patient was evaluated by mental health. He is clearly able to describe his suicidal plan, has exhibited movement forward on the plan with cancellation of all of his housing assistance. Patient is voluntarily willing to stay and seek treatment. He would prefer to not go to [facility]. Plan is for patient to be voluntarily admitted until psychiatric facility bed may be obtained. Labs reviewed. Concerning for leukocytosis of 20. Will get cxr, UA. Patient has no symptoms of infection. No HARVEY or symptoms to suggest meningitis or encephalitis. Abdomen benign. He has had elevated WBC multiple times historically, this could be a stress response. Rapid covid negative. Lactate normal. Gap 12, CMP otherwise without signficant abnormality. He denies any substance use. salicylates and acetaminophen negative. HR down trending to the 90s from the 120s. Patient has been pleasant and agreeable while here. Still wants to be voluntarilly admitted. Evening medications ordered. Patient will remain in the department this evening. At the end of my shift, care transitioned to Dr. Ragsdale with bed placement pending. <Jewel Lackey MD - Last Filed: 07/01/20 20:45> Patient has been held in ED on voluntary psych placement. Bed now availabe on med/surg so patient will be transitioned upstairs. He has been cooperative and fine during his stay in the ED. HPI <RENAE Vidal - Last Filed: 07/02/20 12:24> General Mode of arrival: EMS. Date/Time Provider Initiated Documentation: 06/30/20 20:19. Limitations to Documentation: no limitations. Information obtained by: patient, EMS, RN notes reviewed and old records reviewed. History of Present Illness 54 year old M presents to the emergency department with the chief complaint of Suicidal ideation, described as severe, Patient started experiencing this day(s) and it has been constant. No relieving factors improve symptom(s), Other factors that worsen symptoms (Recent diagnosis of cancer) . Patient notes no other symptoms.; denies chest pain, cough, fever/chills, loss of appetite, nausea/vomiting, shortness of breath and weakness. Patient did receive the following treatments prior to arrival, none (Stopped taking his medication) Related Data Home Medications Medication Instructions Recorded Confirmed omeprazole 20 mg PO QA 10/16/13 07/01/20 magnesium oxide 400 mg PO [facility] 10/20/19 07/01/20 levothyroxine 75 mcg PO DAILY 12/19/19 07/01/20 melatonin 6 mg PO 12/19/19 07/01/20 olanzapine 5 mg PO DAILY 12/19/19 07/01/20 pravastatin 20 mg PO 12/19/19 07/01/20 trazodone 50 mg PO HS 12/19/19 07/01/20 hydroxyzine pamoate [Vistaril] 25 mg PO BID 04/05/20 07/01/20 sennosides [senna] 8.6 mg PO BID PRN 04/05/20 07/01/20 sertraline 100 mg PO DAILY 04/05/20 07/01/20 Allergies Allergy/AdvReac Type Severity Reaction Status Date / Time Sulfa (Sulfonamide Allergy Severe Swelling/Ed Unverified 07/01/20 08:49 Antibiotics) jostin General ABA: 2 Review of Systems <RENAE Vidal - Last Filed: 07/02/20 12:24> Constitutional Constitutional: Reports as per HPI, Denies chills, Denies fatigue, Denies fever(s), Denies headache(s) and Denies weakness Eyes Eyes: Denies change in vision ENT Ears, Nose, Mouth, and Throat: Denies headache(s) Cardiovascular Cardiovascular: Reports as per HPI, Denies chest pain, Denies lightheadedness, Denies dyspnea and Denies dyspnea on exertion Respiratory Respiratory: Reports as per HPI, Denies cough, Denies dyspnea and Denies dyspnea on exertion Gastrointestinal Gastrointestinal: Reports as per HPI, Denies abdominal pain, Denies change in bowel habits, Denies nausea and Denies vomiting Genitourinary Genitourinary: Denies system reviewed and no additional complaints, except as documented (denies any change in urinary habits) Musculoskeletal Musculoskeletal: Denies abnormal gait Integumentary/Breasts Skin/Breast: Reports as per HPI and Denies rash Neurologic Neurologic: Denies abnormal movements, Denies abnormal speech, Denies abnormal gait, Denies headache(s), Denies paresthesias and Denies weakness Psychiatric Psychiatric: Reports as per HPI, Reports anxiety, Reports depression, Denies auditory hallucinations, Reports hopelessness, Denies visual hallucinations, Denies hallucinations and Reports suicidal ideation Endocrine Endocrine: Denies fatigue PFSH <RENAE Vidal - Last Filed: 07/02/20 12:24> Medical History Anxiety Bipolar disorder COPD (chronic obstructive pulmonary disease) GERD (gastroesophageal reflux disease) Hypercholesterolemia Hypothyroid Traumatic pneumothorax 2017, chest tube x2 Surgical History History of ankle surgery S/P thoracostomy tube placement Social History Smoking/Tobacco Use Status: Current every day Tobacco Type: cigarettes Smoking risk assessment performed?: Yes Alcohol Intake: never Drug use: Daily Substance use type: marijuana Current gender identity: male Do you feel safe at home: No (pt states he doesn't feel safe.PT lives alone) Do you feel safe in your relationship?: Yes Exam <RENAE Vidal - Last Filed: 07/02/20 12:24> Const General: cooperative, healthy appearing, comfortable, no acute distress, well developed and well groomed Nutritional Appearance: average body habitus and well nourished Orientation: alert and awake HENNV Head: normal to inspection Ears: hearing grossly normal bilaterally Face and sinus: normal facial exam Mouth: oral mucosae normal, lip normal and tongue normal Teeth and gingiva: edentulous Throat: posterior oropharynx normal, tonsils normal and uvula midline Eyes General: appearance normal, both eyes and all related structures Resp Effort & Inspection: normal respiratory effort, able to speak in complete sentences and no respiratory distress Auscultation: clear to auscultation bilaterally, no rales, no rhonchi and no wheezes Cardio Rate: regular rate Rhythm: regular rhythm Heart Sounds: S1 normal and S2 normal GI Inspection: normal to inspection Palpation: soft, no hepatosplenomegaly and nontender Skin General skin exam: no rashes or lesions noted Trauma: no lacerations or abrasions Neuro General: patient alert and patient awake Cognition: normal cognition Speech: speech normal Gait: normal gait Psych Appearance: grossly normal and well kempt Mental Status: mental status grossly normal Speech and Movement: speech and movement normal Mood: congruent mood Affect: sad Attitude: cooperative Thought Process: normal Thought Content: suicidality Insight: insight good Judgment: judgment good Sign Out <RENAE Vidal - Last Filed: 07/02/20 12:24> Sign Out Data: Sign Out Comment: Care transitioned to Dr. Ragsdale. Patient is stable here. Voluntary psychiatric admission, bed pending. Last updated by Kandace Gustafson PA at 06/30/20 23:41 Sign Out Comment: Patient stable throughout the entirety of the evening. No complications. Did urinate once during the night. Will need to be reassessed by mental health for continued placement options. Last updated by Mickey Ragsdale DO at 07/01/20 07:43 Sign Out Comment: PT STABLE THROUGH DAY SHIFT, AWAIT FINAL DISPOSITION Last updated by Jagdish Aleman MD at 07/01/20 19:19
[2020-06-30 20:23] VITALS: BP 113/80; PULSE 125; RESP 18; TEMP 37.2; O2SAT 93
[2020-06-30 20:56] LABS: Absolute Eosinophil Count 0.16 10^3/uL (0.0-0.7); Absolute Neutrophil Count 16.32 10^3/uL (1.2-6.7); Basophils % 0.2; Eosinophils % 0.8; HCT 44.9 % (40.0-50.0); HGB 15.5 g/dL (13.5-17.5); Immature Grans % 0.5; Lymphocytes % 15.5; MCH 27.9 pg (27.0-33.0); MCHC 34.5 % (32.0-36.0); MCV 80.9 fL (80-95); MPV 10.1 fL (8.0-11.0); Monocytes % 3.5; Neutrophils % 79.5; Nucleated RBC 0 %; Platelet Count 216 10^3/uL (130-400); RBC 5.55 10^6/uL (4.36-5.78); RDW 14.1 % (11.8-14.1); RDW-SD 41.4 fL; WBC 20.53 10^3/uL (4.4-10.8)
[2020-06-30 20:57] LABS: Absolute Basophil Count 0.04 10^3/uL (0.0-0.2); Absolute Lymphocyte Count 3.18 10^3/uL (1.2-3.4); Absolute Monocyte Count 0.72 10^3/uL (0.1-0.8)
[2020-06-30 21:03] LABS: Source Nasopharynx
[2020-06-30] MEDS: Normal Saline 1,000 ML 1000 ML IV (21:04)
[2020-06-30] MEDS: OLANZapine 5 MG TAB PO (21:04)
[2020-06-30 21:05] LABS: Lactate 1.4 mmol/L (0.6-1.4)
[2020-06-30] MEDS: Sertraline 50 MG TAB 100 MG PO (21:05)
[2020-06-30 21:13] LABS: ALT 43 U/L (16-63); AST 24 U/L (15-37); Albumin 3.7 g/dL (3.4-5.0); Alkaline Phosphatase 120 U/L (46-116); Anion Gap 12.1 mmol/L (3-11); BUN 17 mg/dL (7-18); Bilirubin, Total 0.4 mg/dL (0.2-1.0); CO2 24.9 mmol/L (21.0-32.0); Chloride 100 mmol/L (98-107); Glucose 160 mg/dL (74-106); Potassium 3.5 mmol/L (3.5-5.1); Sodium 137 mmol/L (136-145)
[2020-06-30 21:32] LABS: Salicylate 3.1 mg/dL (<2.8)
[2020-06-30 21:33] LABS: Acetaminophen < 2 ug/mL (10-30)
[2020-06-30 21:34] LABS: ETHANOL BLOOD < 3.0 mg/dL (<3)
[2020-06-30 21:44] LABS: COVID-19 PCR Negative (Negative); Influenza A PCR Negative (Negative); Influenza B PCR Negative (Negative); RSV PCR Negative (Negative)
[2020-06-30 21:48] LABS: FREE T4 1.13 ng/dL (0.76-1.46)
--- NOTE | 2020-06-30 21:57 | PDOC.MHCN_ITS ---
Date of service: 06/30/20 Time of Service: 21:57 Mental Health Crisis Note Presenting Issue How did you arrive at the ED and why did you come: Client was brought to the ED by ambulance after calling [facility] Emergency Services reporting self harm. Precipitating Factors Client reports SI. He reports that he will slit my wrist and go up the inside of my arm and bleed out in 30 seconds. Client reports that he has access to a razor blade to do this. Disposition BEHAVIOR: Client is cooperative. EYE CONTACT: Client makes eye contact with this journalists and other writers when answering questions, but faces away from the ipad when not speaking. MOOD: Clients mood is indifferent. AFFECT: Clients affect is flat. APPETITE: Client reports that his appetite is not good. SLEEP(trouble falling/staying asleep: Client reports his sleep has been not too good. Plan Client will remain at [facility] on voluntary status until placement is found. This journalists and other writers will contact hospitals to find placement. Occupational Therapist Assistant was contacted and a safety plan was put in place. Signature Clinician's Name/Title: Elif Self [facility] Emergency Clinician
[2020-06-30 22:00] VITALS: BP 98/64; PULSE 96; RESP 18; TEMP 37.1; O2SAT 93
--- NOTE | 2020-06-30 22:07 | DI.RAD_ITS ---
EXAM: XR PORTABLE CHEST AP CLINICAL HISTORY: elevated WBC, SOB TECHNIQUE: 2D digital imaging was performed. COMPARISON: CT CT CHEST W from 06/17/2020 FINDINGS: LUNGS: Scarring in the left lung apex. Underlying emphysematous and fibrotic changes. No pleural ab normality seen. HEART: Normal. MEDIASTINUM: Normal. BONES: Unremarkable. IMPRESSION: No acute pulmonary findings. DATA REPOSITORY: RADIATION DOSE DELIVERED:
--- NOTE | 2020-06-30 22:14 | PDOC.CMSAFED ---
- If Service Date Differs Date of service: 06/30/20 Time of Service: 22:14 Care Management Safety Plan Status: Voluntary Asim is a 54 year old man with a long history of depression and SI/HI. He has been hospitalized many times for this and has presented to the ED at [facility] 14 times in the past year for similar symptoms. Asim was last seen at [facility] on of this week and was on an EE, however the second certification was not successful. Asim left [facility] ED on and presented again today with SI. He has recently been diagnosed with lung cancer, per report, and this may be a contributing factor. Asim is requesting voluntary placement in an inpatient psychiatric facility. Patient is appropriate in all interactions since arriving at [facility]; Pt has demonstrated appropriate coping and communication skills, has articulated his or her needs and concerns and is fully engaged during staff interactions. Safety plan has been established with patient, and care team, to adhere to patient goals, identify restrictions based on behavioral status, address nutrition, and determine allowed personal belongings, tools for hygiene and personal care. Determine level of activity including ambulation, level of supervision, visitors, and determine privileges based on behaviors and level of engagement by pt. SAFETY PLAN: 1. Will remain on suicide precautions. May wear his own clothes, after wanding by prosthetics lab technician, and after removal of all potentially harmful items such as belts and strings. 2. Will remain in room under direct supervision of one-on-one staff at all times provided by CPSO; DONTAE, GLASS LAMINATING OPERATOR windows application administrator. 3. May have paper cups, plates, finger foods as well as a cardboard spoon with which to eat meals. 4. Follow [facility] Management of the Admitted Behavioral Health Patient policy. 5. Comfort bath system only. 6. No personal belongings 7. Visitors-No visitors at this time 8. Activities: may watch TV if admitted to transition unit, at nursing discretion. 9. Bathroom privileges 10. Phone: no phone privileges at this time. 11. Due to VOLUNTARY status, if patient wishes to leave [facility], staff will contact [facility] Crisis Screener ([phone]) and On-Call Credit Risk Officer ([phone]) as soon as possible. In the event of elopement, notify [facility] Police ([phone]). Patient is currently voluntarily at [facility] and seeking inpatient admission when a bed becomes available. [facility] Frontline Meat Grader will continue seeking placement. Please contact the Central Office Technician Credit Risk Officer ([phone]) and [facility] Meat Grader ([phone]) for any needed changes in the Safety Plan. Safety plan has been provided to interdepartmental care team.
--- NOTE | 2020-06-30 22:24 | DI.VRAD_ITS ---
PROCEDURE INFORMATION: Exam: XR Chest, 1 View Exam date and time: 06/30/2020 10:08 PM Age: 54 years old Clinical indication: Shortness of breath; Patient HX: Elevated wbc, SOB TECHNIQUE: Imaging protocol: XR of the chest Views: 1 view. COMPARISON: CT CHEST W 06/17/2020 2:56 PM FINDINGS: Lungs: No acute lung infiltrates or consolidation. Left apical scar which is seen on CT 06/17/2020 to represent an area of parenchymal scar and a cavitary focus. Patient is noted to have emphysematous lung disease. There is also a right lower lobe opacification consistent with a scar by previous CT. Pleural spaces: No pleural effusions. Heart/Mediastinum: Normal heart size. Bones/joints: Degenerative thoracic spine disease. IMPRESSION: 1. No acute lung infiltrates or consolidation. 2. No pleural effusions. 3. Left apical and right lower lung field scarring processes which are noted on recent prior CT. 4. Emphysematous lung disease. Dictated and Authenticated by: Kma Mccann MD. Ordering:CASEY Jeronimo MD
[2020-07-01] MEDS: Pravastatin 20 MG TAB PO (00:07)
[2020-07-01] MEDS: Melatonin 3 MG TAB PO (00:07)
[2020-07-01] MEDS: traZODone 50 MG TAB PO ×2 (00:08→22:08)
[2020-07-01] MEDS: Senna TAB 1 TAB PO (00:08)
[2020-07-01 04:45] LABS: Bilirubin Negative (Negative); Blood Negative (Negative); Clarity Clear (Clear); Glucose Negative (Negative); Ketones Negative (Negative); Leukocyte Esterase Negative (Negative); Nitrite Negative (Negative); Specific Gravity 1.025 (1.005-1.025); Urobilinogen 0.2 EU/dL (Up TO 0.2)
[2020-07-01 04:51] LABS: *AMPHETAMINES SCREEN URINE Negative (Negative); *BARBITURATES SCREEN URINE Negative (Negative); *BENZODIAZEPINES SCREEN URINE Negative (Negative); Cannabinoids THC POSITIVE (Negative); Cocaine Screen,Urine Negative (Negative); METHADONE URINE SCREEN Negative (Negative); OPIATES URINE SCREEN Negative (Negative)
[2020-07-01 04:54] LABS: Tricyclic Antidepressants Negative (Negative)
[2020-07-01] MEDS: OLANZapine 5 MG TAB PO (10:00)
[2020-07-01] MEDS: Sertraline 50 MG TAB 100 MG PO (10:01)
[2020-07-01] MEDS: Levothyroxine 75 MCG TAB PO (10:01)
[2020-07-01] MEDS: hydrOXYzine PAMOATE 25 MG CAP PO ×2 (10:07→19:03)
[2020-07-01] MEDS: Omeprazole 20 MG CAPCR PO (10:08)
[2020-07-01] MEDS: Magnesium Oxide 400 MG TAB PO (10:08)
--- NOTE | 2020-07-01 10:36 | CMPROGNOTE_ITS ---
- If Service Date Differs Date of service: 07/01/20 Time of Service: 10:37 Care Management Progress Note S/O: Asim is resting when CM comes to meet with him. He is pleasant and cooperative but mood is depressed, affect subdued, and he is much less talkative than normal for him. He meets with Tamie [facility] assistant corporation counsel, via zoom for a re-assessment. Asim reports on-going suicidal ideation with a plan of cutting his wrists and shares he does have the means to harm himself as he has razor blades at home. He shares he has a lot of things going on but does not wish to elaborate at this time. A: Asim is a 54 year old male admitted to [facility] on 06/30/2020 for suicidal ideation. P: A referral was faxed to [facility] last evening and is awaiting review. [facility] and [facility] are full, [facility] is not accepting out of county referrals and Asim is unwilling to consider [place]. There are also no available crisis beds. Asim, therefore, will remain at [facility] while [facility] continues to seek a voluntary placement for him. CM will continue to follow.
--- NOTE | 2020-07-01 10:36 | PDOC.ERCMPRO ---
- If Service Date Differs Date of service: 07/01/20 Time of Service: 10:37 Care Management Progress Note S/O: Asim is resting when CM comes to meet with him. He is pleasant and cooperative but mood is depressed, affect subdued, and he is much less talkative than normal for him. He meets with Tamie [facility] coal inspector, via zoom for a re-assessment. Asim reports on-going suicidal ideation with a plan of cutting his wrists and shares he does have the means to harm himself as he has razor blades at home. He shares he has a lot of things going on but does not wish to elaborate at this time. A: Asim is a 54 year old male admitted to [facility] on 06/30/2020 for suicidal ideation. P: A referral was faxed to [facility] last evening and is awaiting review. [facility] and [facility] are full, [facility] is not accepting out of county referrals and Asim is unwilling to consider [place]. There are also no available crisis beds. Asim, therefore, will remain at [facility] while [facility] continues to seek a voluntary placement for him. CM will continue to follow.
--- NOTE | 2020-07-01 11:30 | RT.EKG_ITS ---
APPROVED REPORT Exam: Resting ECG Patient Location: E HR:74 bpm ECG Measurements Heart Rate 74 AXIS VT 130 P 55 QRSd 97 QRS 2 QT 393 T 27 QTc 436 Conclusion Sinus rhythm...normal P axis, V-rate 60- 99
--- NOTE | 2020-07-01 12:09 | PDOC.CMSAFED ---
- If Service Date Differs Date of service: 07/01/20 Time of Service: 12:09 Care Management Safety Plan Status: Voluntary Patient is appropriate in all interactions since arriving at [facility]; Pt has demonstrated appropriate coping and communication skills, has articulated his or her needs and concerns and is fully engaged during staff interactions. Safety plan has been established with patient, and care team, to adhere to patient goals, identify restrictions based on behavioral status, address nutrition, and determine allowed personal belongings, tools for hygiene and personal care. Determine level of activity including ambulation, level of supervision, visitors, and determine privileges based on behaviors and level of engagement by patient. SAFETY PLAN: 1. Will remain on suicide precautions. May wear his own clothes, after wanding by sheriffs detective, and after removal of all potentially harmful items such as belts and strings. 2. Will remain in room under direct supervision of one-on-one staff at all times provided by CPSO, DONTAE, LABORER LIVESTOCK dressage instructor. 3. May have paper cups, plates, finger foods as well as a cardboard spoon with which to eat meals. 4. Follow [facility] Management of the Admitted Behavioral Health Patient policy. 5. Comfort bath system only. 6. No personal belongings with the exception of his cell phone. 7. Visitors-No visitors at this time per [facility] Covid policy. 8. Activities: television when available, paper and soft tip markers, and other activities at nursing discretion. 9. Bathroom privileges: accompanied by staff while in the ED. 10. Phone: allowed his cell phone and incoming/outgoing phone calls as long as the calls do not cause patient to become agitated. 11. Due to VOLUNTARY status, if patient wishes to leave [facility], staff will contact [facility] Crisis Screener ([phone]) and On-Call Raw Cheese Worker ([phone]) as soon as possible. In the event of elopement, notify [employer] Police ([phone]). Patient is currently voluntarily at [facility] and seeking inpatient admission when a bed becomes available. [facility] Frontline Projects Manager will continue seeking placement. Please contact the Homicide Squad Lieutenant Raw Cheese Worker ([phone]) and [facility] Projects Manager ([phone]) for any needed changes in the Safety Plan. [facility].
[2020-07-01 14:13] VITALS: BP 117/70; PULSE 77; RESP 17; TEMP 36.8; O2SAT 96
--- NOTE | 2020-07-01 14:23 | PDOC.MHCN_ITS ---
Date of service: 07/01/20 Time of Service: 14:23 Mental Health Crisis Note Presenting Issue How did you arrive at the ED and why did you come: Pt arrived to the ER 06.30.2020 voluntarily for a psychiatric admission due to depression. Precipitating Factors Pt reported he is having SI thoughts with intent, access and plan to slit his arm up the inside and bleed out in 30 seconds. Disposition BEHAVIOR: Pt is cooperative and engaged. EYE CONTACT: Pt makes good eye contact. MOOD: Pt endorses depression and an increase in thoughts about not wanting to live. AFFECT: Pt's affect is flat and supports his report of depression. APPETITE: Pt reported his appetite has decreased. SLEEP(trouble falling/staying asleep: Pt reported that he is unable to sleep at home but did so well at hospital last night. Plan Pt will remain at [facility] pending a voluntary admission or is able to safely contract to go home. There are no available hospitals or crisis beds today. Signature Clinician's Name/Title: Tamie Mccord MS, [facility] Emergency Services Clincian
[2020-07-01 21:30] VITALS: BP 116/86; PULSE 75; RESP 18; TEMP 36.2; O2SAT 94
[2020-07-01] MEDS: Melatonin 3 MG TAB 6 MG PO (22:08)
[2020-07-02] VITALS: BP 134/93; PULSE 85; RESP 20; TEMP 36.7; O2SAT 94
[2020-07-02] MEDS: Levothyroxine 75 MCG TAB PO (06:04)
--- NOTE | 2020-07-02 06:18 | W.PM.HP.N ---
Date of service: 07/02/20 Time of Service: 06:18 Assessment and Plan Assessment and plan (1) Leukocytosis: Status: Chronic Assessment and plan: No evidence of infection; CXR w/o acute findings. Urine cx growing mixed aleta. No meningitis signs/sxs. Has had previous elevations. Repeat CBC this AM. (2) Tobacco abuse: Status: Acute Assessment and plan: Nicoderm replacement. (3) COPD (chronic obstructive pulmonary disease): Status: Chronic Assessment and plan: CXR consistent with emphysema. He is currently on any medications and has no signs/sxs of an exacerbation. Duonebs prn. (4) Depression with suicidal ideation: Status: Acute Assessment and plan: He was voluntarily admitted. Cont Zyprexa, Zoloft and trazodone. Mood has improved. Mental health and care management involved. (5) Hypothyroid: Status: Chronic Assessment and plan: TSH 3.8. Cont levothyroxine 75mcg daily. Qualifiers: Hypothyroidism type: acquired Qualified Code(s): E03.9 - Hypothyroidism, unspecified History of Present Illness History of Present Illness Chief Complaint: Suicidal ideations / depression. Narrative: This is a 54 yo male with a h/o depression/anxiety, SI, COPD, newly dxd lung CA, leukocytosis, tobacco abuse, hypothyroidism. He presented to the ED on 06/30/2020 with days of experiencing suicidal ideations. He had presented 2 days prior to this admission and after a second cert with he endorsed feeling notably improved and was d/c'd home. Since d/c, however, his symptoms worsened. He endorsed not taking his meds and cancelling his housing assistance and insurance. He was admitted voluntarily. He denied CP/palpitations, F/C, cough/SOA, N/V/abd pain, anorexia. He was transferred from the ED to a transition room early in the AM of 07/02/2020. At that time he denied SI and stated he felt overall better. [facility] Medical History Anxiety Bipolar disorder COPD (chronic obstructive pulmonary disease) GERD (gastroesophageal reflux disease) Hypercholesterolemia Hypothyroid Traumatic pneumothorax 2017, chest tube x2 Surgical History History of ankle surgery S/P thoracostomy tube placement Social History Smoking/Tobacco Use Status: Current every day Tobacco Type: cigarettes Smoking risk assessment performed?: Yes Alcohol Intake: never Drug use: Daily Substance use type: marijuana Current gender identity: male Do you feel safe at home: No (pt states he doesn't feel safe.PT lives alone) Do you feel safe in your relationship?: Yes Meds Home Medications and Allergies Home Medications Medication Instructions Recorded Confirmed Type omeprazole 20 mg PO QAM 10/16/13 07/01/20 History magnesium oxide 400 mg PO QAM 10/20/19 07/01/20 History levothyroxine 75 mcg PO DAILY 12/19/19 07/01/20 History melatonin 6 mg PO HS 12/19/19 07/01/20 History olanzapine 5 mg PO DAILY 12/19/19 07/01/20 History pravastatin 20 mg PO HS 12/19/19 07/01/20 History trazodone 50 mg PO HS 12/19/19 07/01/20 History hydroxyzine pamoate [Vistaril] 25 mg PO BID 04/05/20 07/01/20 History sennosides [senna] 8.6 mg PO BID PRN 04/05/20 07/01/20 History sertraline 100 mg PO DAILY 04/05/20 07/01/20 History Allergies Allergy/AdvReac Type Severity Reaction Status Date / Time Sulfa (Sulfonamide Allergy Severe Swelling/Ed Unverified 07/01/20 08:49 Antibiotics) jostin Exam Narrative Exam Narrative: Lying in bed. Wakens readily to verbal stimuli. Const General: cooperative and no acute distress Nutritional Appearance: overweight Orientation: alert and oriented x3 HENTX Head: normocephalic and atraumatic Resp Effort & Inspection: normal respiratory effort Auscultation: clear to auscultation bilaterally Cardio Jugular venous pressure: no JVD Rate: regular rate Rhythm: regular rhythm Heart Sounds: S1 normal and S2 normal GI Inspection: normal to inspection Palpation: soft and nontender Auscultation: normal bowel sounds Skin General skin exam: no rashes or lesions noted Neuro General: patient alert and no focal motor deficits Motor: no tremors Extrem General: no pedal edema and no calf tenderness Psych Appearance: grossly normal Mental Status: mental status grossly normal Speech and Movement: speech and movement normal Affect: normal affect Results Labs Result diagrams: 06/30/20 20:50 06/30/20 20:50 Last Vital Signs Temp 36.7 C 07/02/20 00:00 Pulse 85 07/02/20 00:00 Resp 20 07/02/20 00:00 BP 134/93 H 07/02/20 00:00 Pulse Ox 94 07/02/20 00:00 COVID-19 Screening Have you, or household traveled for leisure in last 14 days?: No Had IN PERSON contact w/suspected or confirmed C-19 person: No
[2020-07-02 07:08] LABS: Abs Immature Grans 0.03 10^3/uL (0.0-0.06); Absolute Basophil Count 0.06 10^3/uL (0.0-0.2); Absolute Eosinophil Count 0.33 10^3/uL (0.0-0.7); Absolute Monocyte Count 0.67 10^3/uL (0.1-0.8); Absolute Neutrophil Count 6.82 10^3/uL (1.2-6.7); Basophils % 0.6; Eosinophils % 3.2; HCT 46.9 % (40.0-50.0); HGB 15.5 g/dL (13.5-17.5); Immature Grans % 0.3; MCH 27.8 pg (27.0-33.0); MCV 84.1 fL (80-95); MPV 10.3 fL (8.0-11.0); Monocytes % 6.4; Neutrophils % 65.5; Nucleated RBC 0 %; Platelet Count 226 10^3/uL (130-400); RBC 5.58 10^6/uL (4.36-5.78); RDW 13.9 % (11.8-14.1); WBC 10.41 10^3/uL (4.4-10.8)
[2020-07-02] MEDS: hydrOXYzine PAMOATE 25 MG CAP PO (08:23)
[2020-07-02] MEDS: Sertraline 50 MG TAB 100 MG PO (08:23)
[2020-07-02] MEDS: Omeprazole 20 MG CAPCR PO (08:24)
[2020-07-02] MEDS: OLANZapine 5 MG TAB PO (08:24)
[2020-07-02] MEDS: Magnesium Oxide 400 MG TAB PO (08:24)
[2020-07-02 08:34] VITALS: BP 140/93; PULSE 79; RESP 17; TEMP 36.7; O2SAT 94
--- NOTE | 2020-07-02 11:41 | PDOC.MHCN_ITS ---
Date of service: 07/02/20 Time of Service: 10:00 Mental Health Crisis Note Presenting Issue How did you arrive at the ED and why did you come: Client arrived at ED via VSP. Client reported to his SUPERINTENDENT FISH HATCHERY team that he was going to slit his wrist and bleed out. Precipitating Factors Client denied SI/HI during this assessment. There was no evidence of delusion Disposition BEHAVIOR: Client presented as affable, cooperative and relaxed during this assessment. EYE CONTACT: Client maintained good eye contact throughout the assessment MOOD: client presented with euthymic mood but expressed anxiety over new diagnosis and upcoming treatment. AFFECT: Client presented with full affect. APPETITE: Client reported good appetite SLEEP(trouble falling/staying asleep: Client reported no sleep disturbance Plan Client is currently on voluntary status and awaiting placement at [facility]. Client is requesting to be discharged to go home. Client's SUPERINTENDENT FISH HATCHERY team have been notified of this and they have agreed to pick him up at 1 pm. Client has also agreed to check-in calls with his SUPERINTENDENT FISH HATCHERY team at 7pm on 07/02, 07/03 and 07/04 as well a 3pm check-in call on 07/05. Client reported he had access to sharps at home and has agreed to have a member of his SUPERINTENDENT FISH HATCHERY team put them in a lock box for safety upon discharge. Both client and SUPERINTENDENT FISH HATCHERY have been updated on the assessment as well as the safety plan made. Signature Clinician's Name/Title: Alejandra Lopez Emergency Services Clinician
--- NOTE | 2020-07-02 11:58 | DSE_ITS ---
Date of service: 07/02/20 Time of Service: 11:59 DS: Diagnosis Discharge Diagnosis (1) Depression with suicidal ideation: Start date: 07/02/20 Start time: 12:02 Status: Acute Asessment and Plan: Cont Zyprexa, Zoloft and trazodone. Mood has improved. Denies SI, HI, Cleared by to go home. Mental health and care management involved. (2) Leukocytosis: Start date: 07/02/20 Start time: 11:59 Status: Chronic Asessment and Plan: No evidence of infection; CXR w/o acute findings. Urine cx growing mixed aleta. No meningitis signs/sxs. Has had previous elevations. Repeat CBC this AM. (3) Tobacco abuse: Start date: 07/02/20 Start time: 12:01 Status: Acute Asessment and Plan: not interested in cessation (4) COPD (chronic obstructive pulmonary disease): Start date: 07/02/20 Start time: 12:01 Status: Chronic Asessment and Plan: not exacerbated at this time (5) Hypothyroid: Start date: 07/02/20 Start time: 12:02 Status: Chronic Asessment and Plan: TSH 3.8. Cont levothyroxine 75mcg daily. above case discussed with Dr. peoples Discharge Plan Disposition Patient Disposition: HOME Condition: Stable Discharge Details Reason For Visit: DEPRESSION; SI; VOLUNTARY Admit Date/Time: 07/01/20 20:45 Admit Provider: Conner Omer Attending Provider: Conner Omer Primary Care Provider: Fariba Forde Hospital Course Hospital Course: This is a 54 yo male with a h/o depression/anxiety, SI, COPD, newly dxd lung CA, leukocytosis, tobacco abuse, hypothyroidism. He presented to the ED on 06/30/2020 with days of experiencing suicidal ideations. He had presented 2 days prior to this admission and after a second cert with he endorsed feeling notably improved and was d/c'd home. Since d/c, however, his symptoms worsened. He endorsed not taking his meds and cancelling his housing assistance and insurance. He was admitted voluntarily. He denied CP/palpitations, F/C, cough/SOA, N/V/abd pain, anorexia. He was transferred from the ED to a transition room early in the AM of 07/02/2020. At that time he denied SI and stated he felt overall better. He met with and was cleared to be discharged home. He continues to deny SI/HI. Therefore he will be discharged home and meet with SECURITY CONTROL ROOM OFFICER this afternoon Home Meds and New Rx's Prescriptions: Continued omeprazole 20 MG capsule,delayed release(DR/EC) 20 mg PO QAM RF: 0 magnesium oxide 400 mg (241.3 mg magnesium) tablet 400 mg PO QAM RF: 0 sennosides [senna] 8.6 mg Tablet 8.6 mg PO BID PRNRF: 0 sertraline 100 mg Tablet 100 mg PO DAILY RF: 0 hydroxyzine pamoate [Vistaril] 25 mg Capsule 25 mg PO BID RF: 0 trazodone 50 mg tablet 50 mg PO HS RF: 0 olanzapine 5 mg tablet 5 mg PO DAILY RF: 0 melatonin 3 mg tablet 6 mg PO HS RF: 0 levothyroxine 75 mcg tablet 75 mcg PO DAILY RF: 0 pravastatin 20 mg tablet 20 mg PO HS RF: 0 Discharge Instructions Activity:: Activity as Tolerated Equipment/Supplies:: No Equipment Needed Diet:: As Tolerated Discharge Orders Discharge Orders: Discharge Order (Routine); Ordered 07/02/20 Ordered By: Payal Landry DS: Summary Time Spent with Patient providing and/or coordinating discharge services: Greater than 30 minutes (approx 35 mins) Status at Discharge Functional status at discharge: independent ambulation Overall status at discharge: patient is back to baseline Mental Status: mental status grossly normal Speech and Movement: speech and movement normal Mood: congruent mood Affect: normal affect Exam Narrative Exam Narrative: Lying in bed. Wakens readily to verbal stimuli. Const General: cooperative and no acute distress Nutritional Appearance: overweight Orientation: alert and oriented x3 HENID Head: normocephalic and atraumatic Resp Effort & Inspection: normal respiratory effort Auscultation: clear to auscultation bilaterally Cardio Jugular venous pressure: no JVD Rate: regular rate Rhythm: regular rhythm Heart Sounds: S1 normal and S2 normal GI Inspection: normal to inspection Palpation: soft and nontender Auscultation: normal bowel sounds Skin General skin exam: no rashes or lesions noted Neuro General: patient alert and no focal motor deficits Motor: no tremors Extrem General: no pedal edema and no calf tenderness Psych Appearance: grossly normal Mental Status: mental status grossly normal Speech and Movement: speech and movement normal Mood: congruent mood Affect: normal affect DS: Data Vitals/I&O Vitals and I&O: Vital Signs Temperature 36.7 C 07/02/20 08:34 Temperature Source Tympanic 07/02/20 08:34 Pulse 79 07/02/20 08:34 Pulse Rhythm Regular 07/02/20 00:00 Respiratory Rate 17 07/02/20 08:34 Respiratory Effort 07/02/20 00:00 Respiratory Depth Normal 07/02/20 00:00 Respiratory Pattern Normal 07/02/20 00:00 Blood Pressure 140/93 H 07/02/20 08:34 Blood Pressure Position Sitting 06/30/20 20:23 Pulse Oximetry 94 07/02/20 08:34 Oxygen Delivery Method Room Air 07/02/20 08:34 Oxygen Flow Rate 0 07/02/20 08:34 Pain Level 0 07/02/20 08:34 Intake & Output 07/01/20 07/01/20 07/02/20 11:59 23:59 11:59 Intake Total 380 / 380 720 / 720 Balance 380 / 380 720 / 720 Weight 81.8 kg Intake: Oral 380 / 380 720 / 720 Other: Urine Color Yellow Urine Appearance Clear Clear Urine Odor None Comment VOID X 1 IN BR Stool Size Small Stool Characteristics Soft Voiding Methods Toilet Toilet Data Completed and Pending Labs on day of discharge: Labs from last 24 hours 07/02/20 06:36 WBC 10.41 RBC 5.58 Hgb 15.5 Hct 46.9 MCV 84.1 MCH 27.8 MCHC 33.0 RDW 13.9 Plt Count 226 MPV 10.3 Immature Gran % 0.3 Neutrophils % 65.5 Lymphocytes % 24.0 Monocytes % 6.4 Eosinophils % 3.2 Basophils % 0.6 Nucleated RBC % 0 Absolute Neutrophils 6.82 H Absolute Lymphocytes 2.50 Absolute Monocytes 0.67 Absolute Eosinophils 0.33 Absolute Basophils 0.06 PFSH Medical History Anxiety Bipolar disorder COPD (chronic obstructive pulmonary disease) GERD (gastroesophageal reflux disease) Hypercholesterolemia Hypothyroid Traumatic pneumothorax 2017, chest tube x2 Surgical History History of ankle surgery S/P thoracostomy tube placement Social History Smoking/Tobacco Use Status: Current every day Tobacco Type: cigarettes Smoking risk assessment performed?: Yes Alcohol Intake: never Drug use: Daily Substance use type: marijuana Current gender identity: male Do you feel safe at home: No (pt states he doesn't feel safe.PT lives alone) Do you feel safe in your relationship?: Yes
--- NOTE | 2020-07-02 17:09 | CMDISCH_ITS ---
- If Service Date Differs Date of service: 07/02/20 Time of Service: 17:09 LACE Index Scoring Tool - Questions: Length of Stay (in days): 2 Acuity (Admit via E.D.?): Yes Comorbidities: Chronic Pulmonary Disease E.D. Visits: 14 - Answers: Total Score: 11 Risk of Readmission: High Risk Care Management Discharge Reason for Hospitalization: Depression, SI Discharge Plan: Asim has contracted for safety to return home with [facility]. He will be driven home via private vehicle by his CAREER COUNSELOR immigration case manager, Jagdish. Jagdish will lock up his 'sharps', per [facility] screener, who created the safety contract with Asim. Asim denies SI/HI and stated that he feels safe to return home. He will have daily check ins with CAREER COUNSELOR. He will follow up with [facility], his PCP, and his discharge plan of care. Patient/Family Education Needs: Review discharge instructions, safety plan, and discussion of self care needs. - MH Services (Omit if N/A) Current MH Services: CAREER COUNSELOR
== END 2020-07-02 13:17 | disposition home or self-care (01) ==
LOC: ER 07-01 21:14 → MS 07-01 21:23
PROVIDERS: Physician Assistant; Admitting Provider Family Medicine; Emergency Provider Emergency Medicine; PCP Nurse Practitioner; Visit Provider Family Medicine
DX: F32.9 Major depressive disorder, single episode, unspecified (principal); R45.851 Suicidal ideations; E03.9 Hypothyroidism, unspecified; F17.210 Nicotine dependence, cigarettes, uncomplicated; J44.9 Chronic obstructive pulmonary disease, unspecified; D72.829 Elevated white blood cell count, unspecified; C34.90 Malignant neoplasm of unspecified part of unspecified bronchus or lung; F41.9 Anxiety disorder, unspecified; E78.00 Pure hypercholesterolemia, unspecified
CPT/HCPCS: 36415; 80053; 80307; 93005; 96360; 99219; 99239; 99285; 71045; 80320; 80329; 81003; 83605; 84439; 84443; 85025; 93010; 99217; 99284; G0378

== ENCOUNTER 2020-07-05 20:22 | Emergency (ER) | payer MEDICAID, SELFPAY ==
--- NOTE | 2020-07-05 20:17 | W.ED.GENAD ---
Discharge Plan Disposition Patient Disposition: HOME Condition: Stable Discharge Details Clinical Impression: Depression Primary Care Provider: Fariba Forde ED Provider: Rani Huffman Home Meds and New Rx's Prescriptions: Continued omeprazole 20 MG capsule,delayed release(DR/EC) 20 mg PO QAM RF: 0 magnesium oxide 400 mg (241.3 mg magnesium) tablet 400 mg PO QAM RF: 0 sennosides [senna] 8.6 mg Tablet 8.6 mg PO BID PRNRF: 0 sertraline 100 mg Tablet 100 mg PO DAILY RF: 0 hydroxyzine pamoate [Vistaril] 25 mg Capsule 25 mg PO BID RF: 0 trazodone 50 mg tablet 50 mg PO HS RF: 0 olanzapine 5 mg tablet 5 mg PO DAILY RF: 0 melatonin 3 mg tablet 6 mg PO HS RF: 0 levothyroxine 75 mcg tablet 75 mcg PO DAILY RF: 0 pravastatin 20 mg tablet 20 mg PO HS RF: 0 Discharge Instructions Instructions: Depression (ED) Additional Instructions: Take your regular medications as directed. Follow-up with [facility] and [facility] for reevaluation. Return immediately to the emergency department if you develop any worsening or new concerning symptoms. Discharge Data Discharge Physician: Rani Huffman Medical Decision Making <Mickey Ragsdale DO - Last Filed: 07/05/20 22:41> 54-year-old male with a past medical history of suicidal ideations, COPD, depression, presents today for mental health evaluation. Patient was recently here at the hospital and discharged on 07/02/2020. He was admitted that time for mental health concerns, depression, and feeling unsafe at home secondary to his depression. After a course here in the hospital he was safety plan with mental health and discharge with plan for daily checks. He presents again today for further assessment for for suicidal ideations and depression. Patient states that at home he wants to end my life, slit my wrists or my inner arm up higher. He states that he feels that he cannot get any help at home and he just wanted to end. Review of records indicates that he is checked daily, and he does admit to contacting his mental health coordinator 2 or 3 times today. He denies any other complaints at this time. He denies any homicidal ideations, auditory, or visual hallucinations. We will elicit the help of our mental health colleagues, patient is refusing labs at this time, however he does appear notably medically stable. He denies taking any new medications, attempting to overdose. We will keep one-to-one observer. The patient has been wanded by our Director Of Aviation as the patient is refusing to change in the scrubs. 10:30 PM Patient continues to refuse medications, blood draw. He appears medically stable at this time there. He does not appear to be under the influence at all. Mental health has come and assessed the patient, they agree with the need for admission and also recommend EEing of this patient. Patient continues to demonstrate statement that would be concerning and and appropriate for discharge. Patient will remain here in the ED. Patient will be signed out to my colleague for reevaluation and reassessment until final disposition can be made by mental health staff. <Asim Fierro MD - Last Filed: 07/06/20 20:42> pt signed out to me, he is EE for suicidal ideations. He is currently calm and interactive when I talk with him, he is still declining lab work and given frequency of prior presentations, clear speech and walking unassisted in the room with normal gait do not feel we need to force him to have lab work done at this time. He did request a sandwich which nursing provided. He will be in the ED until psychiatric bed placement can be found pt signed out to me from Dr. Huffman, he is now vuluntary and unfortunately we have no beds here so will remain in the ED until psychiatric bed is found or if beds can open up here. He remains stable with clear speech and steady gait and is cooperative. <Rani Huffman DO - Last Filed: 07/07/20 09:38> 07/06/20 0800 --please see previous providers note for initial presentation, exam and ongoing plan. Case endorsed to follow-up with mental health and care management this morning. It was reported that patient is EE'd and has refused lab draw and rapid Covid test. His morning medications were ordered. Patient evaluated by me at bedside and is now agreeable to lab work and rapid Covid test. He is also agreeable with plan for inpatient psychiatric hospitalization. Discussed with mental health this morning and they will reevaluate at bedside through zoom. Care management notified. 30 --patient evaluated by mental health at bedside and agree that patient is now voluntary. Will search for placement. Discussed with nursing acid supervisor and unable to admit patient to the floor as there is no bed availability on the floor and plan will be to keep him in the ED as his admission up there may be compromising to other pediatric psychiatric inpatients at this time. Patient has continued to refuse to get into paper clothes. He has only left for him to go to the bathroom. He has been wanded again by event attendant and cleared. 1900 --patient has remained cooperative. No other acute events today. Case endorsed to Dr. Fierro to continue to monitor overnight while awaiting placement. 07/07/20 0800 --no acute events overnight. Case endorsed to follow-up with mental health this morning after they reevaluate at bedside. 0900 --patient refusing to speak to mental health this morning. He hung up on BAR HOST/HOSTESS when they called him. He did speak with me and care management at bedside. Patient is voluntary and is currently denying any suicidal ideation. Patient was given his belongings. Advised to follow-up with BAR HOST/HOSTESS and [facility] for re-evaluation. Usual and customary return precautions given prior to discharge. Medical Records Medical records reviewed: Yes I reviewed the patient's medical records. HPI <Mickey Ragsdale DO - Last Filed: 07/05/20 22:41> General Date/Time Provider Initiated Documentation: 07/05/20 20:26. HPI Narrative: 54-year-old male with a past medical history of suicidal ideations, COPD, depression, presents today for mental health evaluation. Patient was recently here at the hospital and discharged on 07/02/2020. He was admitted that time for mental health concerns, depression, and feeling unsafe at home secondary to his depression. After a course here in the hospital he was safety plan with mental health and discharge with plan for daily checks. He presents again today for further assessment for for suicidal ideations and depression. Patient states that at home he wants to end my life, slit my wrists or my inner arm up higher. He states that he feels that he cannot get any help at home and he just wanted to end. Review of records indicates that he is checked daily, and he does admit to contacting his mental health coordinator 2 or 3 times today. He denies any other complaints at this time. He denies any homicidal ideations, auditory, or visual hallucinations. Related Data Home Medications Medication Instructions Recorded Confirmed omeprazole 20 mg PO QAM 10/16/13 07/05/20 magnesium oxide 400 mg PO QAM 10/20/19 07/05/20 levothyroxine 75 mcg PO DAILY 12/19/19 07/05/20 melatonin 6 mg PO 12/19/19 07/05/20 olanzapine 5 mg PO DAILY 12/19/19 07/05/20 pravastatin 20 mg PO HS 12/19/19 07/05/20 trazodone 50 mg PO HS 12/19/19 07/05/20 hydroxyzine pamoate [Vistaril] 25 mg PO BID 04/05/20 07/05/20 sennosides [senna] 8.6 mg PO BID PRN 04/05/20 07/05/20 sertraline 100 mg PO DAILY 04/05/20 07/05/20 Allergies Allergy/AdvReac Type Severity Reaction Status Date / Time Sulfa (Sulfonamide Allergy Severe Swelling/Ed Unverified 07/01/20 08:49 Antibiotics) jostin General ABA: 2 Review of Systems <Mickey Ragsdale DO - Last Filed: 07/05/20 22:41> All systems reviewed & are unremarkable except as noted in HPI and below PFSH <Mickey Ragsdale DO - Last Filed: 07/05/20 22:41> Medical History Anxiety Bipolar disorder COPD (chronic obstructive pulmonary disease) GERD (gastroesophageal reflux disease) Hypercholesterolemia Hypothyroid Traumatic pneumothorax 2016, chest tube x2 Surgical History History of ankle surgery S/P thoracostomy tube placement Social History Smoking/Tobacco Use Status: Current every day Tobacco Type: cigarettes Smoking risk assessment performed?: Yes Alcohol Intake: never Drug use: Daily Substance use type: marijuana Current gender identity: male Do you feel safe at home: No (pt states he doesn't feel safe.PT lives alone) Do you feel safe in your relationship?: Yes Exam <Mickey Ragsdale DO - Last Filed: 07/05/20 22:41> Narrative Exam Narrative: 1.Const: Well-nourished, Well-developed, appearing stated age 2.Eyes: PERRL, no conjunctival injection, and symmetrical lids. 3.ENT: Atraumatic external nose and ears. Moist MM. Neck: Symmetric, trachea midline, No thyromegaly. 4.CVS: +S1/S2, No murmurs or gallops. Peripheral pulses 2+ and equal in all extremities. Brisk capillary refill in all extremities. 5.RESP: Unlabored respiratory effort. Clear to auscultation bilaterally. No wheezes rales or rhonchi 6.GI: Soft, Nontender/Nondistended, No hepatosplenomegaly. No guarding or rebound. 7.MSK: Normocephalic/Atraumatic, Extremities w/o deformity or ttp No cyanosis or clubbing, Normal movement of all extremities 8.Skin: Warm, Dry. No rashes or lesions. 9.Neuro: verifying machine operator II-XII grossly intact. Sensation grossly intact, no focal neurologic deficits. 10.Psych: (AAO) x3. Appropriate mood and affect Sign Out <Mickey Ragsdale DO - Last Filed: 07/05/20 22:41> Sign Out Data: Sign Out Comment: Suicidal, depressed, currently EE'ed, refusing all medications. Pending final disposition by mental health. Last updated by Mickey Ragsdale DO at 07/05/20 22:42 Sign Out Comment: SI and depressed refusing all meds, pending psychiatric placement, EE Last updated by Asim Fierro MD at 07/05/20 23:32 Sign Out Comment: Patient is currently voluntary. No longer EE'ed. No acute events today. Continue to monitor overnight while awaiting placement. Last updated by Rani Huffman DO at 07/06/20 19:52 Sign Out Comment: pending voluntary psych placement Last updated by Asim Fierro MD at 07/07/20 00:46
--- NOTE | 2020-07-05 20:22 | CMSP_ITS ---
- If Service Date Differs Date of service: 07/05/20 Time of Service: 20:22 Care Management Safety Plan Status: Voluntary Chief Complaint: Asim is a 54 year old male who is well known to [facility]. He receives services through [facility] ASSISTANT OFFSET PRESS OPERATOR program. This is Asim's 4th visit to the emergency department for suicidal ideation this month. Asim was at [facility] just a few days ago awaiting a psych placement and was subsequently discharged home on a safety plan. Asim returns to the ED this evening due to feeling unable to keep himself safe at home. CM will respond to ED to assess patient after patient has been medically cleared and assessed by screener. If screener deems patient meets criteria for psychiatric stabilization CM will facilitate interdepartmental huddle with [facility] screener for safety planning considerations and meet with patient to review [facility] policy and safety plan, establish individual wishes for treatment and maintain patient rights. In the interim, please note safety plan below to guide patient care while awaiting further assessment in the ED. SAFETY PLAN: 1. Will remain on suicide precautions. May wear his own clothes, after wanding by leather scrubber, and after removal of all potentially harmful items such as belts and strings. 2. Will remain in room under direct supervision of one-on-one staff at all times provided by CPSO, DONTAE, CAR WIPER supervisor throwing department. 3. May have paper cups, plates, finger foods as well as a cardboard spoon with which to eat meals. 4. Follow [facility] Management of the Admitted Behavioral Health Patient policy. 5. Shower: May shower at the discretion of nursing staff. 6. No personal belongings with the exception of his clothes and cell phone. 7. Visitors-No visitors at this time 8. Activities: Television when available, coloring books, crayons, and other activities at nursing discretion. 9. Bathroom privileges: Must be accompanied by staff while in the ED. 10. Phone: Allowed to make and receive phone calls on his cell phone at RN discretion. 11. Due to VOLUNTARY status, if patient wishes to leave [facility], staff will contact [facility] Crisis Screener ([phone]) and On-Call Flange Machine Operator ([phone]) as soon as possible. In the event of elopement, notify [facility] Police ([phone]). If deemed appropriate for inpatient psychiatric care, safety plan will be established with patient, and care team, to adhere to patient goals, identify restrictions based on behavioral status, address nutrition, and determine allowed personal belongings, tools for hygiene and personal care. As well plan will determine level of activity including ambulation, level of supervision, visitors, and determine privileges based on level of acuity, behaviors and level of engagement by patient.
--- NOTE | 2020-07-05 22:41 | PDOC.MHPN2 ---
Date of service: 07/05/20 Time of Service: 22:48 Mental Health Progress Note Progress Note Progress Note: Presenting Issue: <del>Client</del> <del>presented</del> <del>to</del> <del>the</del> <del>ED</del> <del>after</del> <del>disclosing</del> <del>SI</del> <del>to</del> <del>his</del> <del>LOOM FIXER HELPER</del> <del>case</del> <del>contact manager.</del> Precipitating Factors Client states he is done and wants to . Client reports he is going to kill himself, but will not disclose a plan to this entry writer, and states, whatever I do, I do. I have a demon inside me, and the only way to kill him is to . Client has been speaking with his casey saw operator on and off all day, and states he has not taken his prescribed medication. Client is refusing voluntary treatment. Disposition * Behavior: Client is oppositional *Eye Contact: good *Mood: depressed and indifferent *Affect: congruent *Appetite: poor *Sleep(troubel falling/staying asleep): Client reports he is not sleeping well Plan(please elaborate and include that physician is consulted with plan and/or placement): Client will remain in the ED on EE status Clinician's Name , Title, and Signature Caitlyn Caballero Emergency Services clinician Make sure that you are photocopying and submitting this to [facility] records Dept. to be scanned into chart.
[2020-07-05] MEDS: LORazepam 1 MG TAB 2 MG PO (23:14)
[2020-07-05 23:28] LABS: *AMPHETAMINES SCREEN URINE Negative (Negative); *BARBITURATES SCREEN URINE Negative (Negative); *BENZODIAZEPINES SCREEN URINE Negative (Negative); Cannabinoids THC POSITIVE (Negative); Cocaine Screen,Urine Negative (Negative); METHADONE URINE SCREEN Negative (Negative); OPIATES URINE SCREEN Negative (Negative)
[2020-07-05 23:29] LABS: Tricyclic Antidepressants Negative (Negative)
[2020-07-06] MEDS: hydrOXYzine HCL 25 MG TAB PO (09:17)
[2020-07-06] MEDS: Levothyroxine 75 MCG TAB PO (09:17)
[2020-07-06] MEDS: Magnesium Oxide 400 MG TAB PO (09:17)
[2020-07-06] MEDS: Sertraline 50 MG TAB 100 MG PO (09:18)
[2020-07-06] MEDS: Senna TAB 1 TAB PO (09:18)
[2020-07-06] MEDS: OLANZapine 5 MG TAB PO (09:18)
[2020-07-06] MEDS: Omeprazole 20 MG CAPCR PO (09:18)
[2020-07-06 09:19] LABS: Source Nasopharynx
[2020-07-06 09:46] LABS: Abs Immature Grans 0.02 10^3/uL (0.0-0.06); Absolute Basophil Count 0.05 10^3/uL (0.0-0.2); Absolute Eosinophil Count 0.16 10^3/uL (0.0-0.7); Absolute Lymphocyte Count 1.83 10^3/uL (1.2-3.4); Absolute Monocyte Count 0.54 10^3/uL (0.1-0.8); Basophils % 0.5; Eosinophils % 1.6; HGB 14.6 g/dL (13.5-17.5); Immature Grans % 0.2; Lymphocytes % 18.7; MCH 27.4 pg (27.0-33.0); MCHC 33.2 % (32.0-36.0); MCV 82.7 fL (80-95); MPV 9.6 fL (8.0-11.0); Monocytes % 5.5; Neutrophils % 73.5; Nucleated RBC 0 %; Platelet Count 230 10^3/uL (130-400); RBC 5.32 10^6/uL (4.36-5.78); RDW 13.8 % (11.8-14.1); RDW-SD 41.5 fL
[2020-07-06 10:01] LABS: COVID-19 PCR Negative (Negative); Influenza A PCR Negative (Negative); Influenza B PCR Negative (Negative); RSV PCR Negative (Negative)
[2020-07-06 10:01] LABS: Ammonia 17 umol/L (11-32)
[2020-07-06 10:05] LABS: ALT 36 U/L (16-63); AST 23 U/L (15-37); Albumin 3.5 g/dL (3.4-5.0); Alkaline Phosphatase 112 U/L (46-116); Anion Gap 8.6 mmol/L (3-11); BUN 16 mg/dL (7-18); Bilirubin, Total 0.3 mg/dL (0.2-1.0); CO2 26.4 mmol/L (21.0-32.0); CREATININE 0.8 mg/dL (0.70-1.30); Calcium 9.4 mg/dL (8.5-10.1); Chloride 105 mmol/L (98-107); ETHANOL BLOOD < 3.0 mg/dL (<3); Glucose 136 mg/dL (74-106); Potassium 4.1 mmol/L (3.5-5.1); Sodium 140 mmol/L (136-145); Total Protein 7.5 g/dL (6.4-8.2)
[2020-07-06 10:14] LABS: Salicylate 3.1 mg/dL (<2.8)
[2020-07-06 10:16] LABS: Acetaminophen < 2 ug/mL (10-30)
--- NOTE | 2020-07-06 11:30 | CMSP_ITS ---
- If Service Date Differs Date of service: 07/06/20 Time of Service: 11:30 Care Management Safety Plan Status: Voluntary Patient is appropriate in all interactions since arriving at [facility]; Patient has demonstrated appropriate coping and communication skills, has articulated his needs and concerns and is fully engaged during staff interactions. Safety plan has been established with patient, and care team, to adhere to patient goals, identify restrictions based on behavioral status, address nutrition, and determine allowed personal belongings, tools for hygiene and personal care. Determine level of activity including ambulation, level of supervision, visitors, and determine privileges based on behaviors and level of engagement by patient. SAFETY PLAN: 1. Will remain on suicide precautions. May wear his own clothes, after wanding by customer sales representative, and after removal of all potentially harmful items such as belts and strings. 2. Will remain in room under direct supervision of one-on-one staff at all times provided by CPSO, DONTAE, COMPLIANCE MANAGER pathology laboratory aides teacher. 3. May have paper cups, plates, finger foods as well as a cardboard spoon with which to eat meals. 4. Follow [facility] Management of the Admitted Behavioral Health Patient policy. 5. Shower: May shower with supervision and at nursing discretion. May use his hairbrush to brush his hair after showering. 6. No personal belongings with the exception of his cell phone and glasses. 7. Visitors: No visitors at this time per [facility] Covid policy. 8. Activities: television when available, paper and soft tip markers, and other activities at nursing discretion. 9. Bathroom privileges: Accompanied by staff while in the ED. May use the bathroom in the room without supervision if moved to Med/Surg. 10. Phone: May have his cell phone and may receive or make incoming/outgoing phone calls as long as the calls do not cause patient to become agitated. 11. Due to VOLUNTARY status, if patient wishes to leave [facility], staff will contact [facility] Crisis Screener ([phone]) and On-Call Trimmer Operator ([phone]) as soon as possible. In the event of elopement, notify [facility] Police ([phone]). Patient is currently voluntarily at [facility] and seeking inpatient admission when a bed becomes available. [facility] Frontline Optical Laboratory Technician will continue seeking placement. Please contact the Community Leader Trimmer Operator ([phone]) and [facility] Optical Laboratory Technician ([phone]) for any needed changes in the Safety Plan. Safety plan has been provided to interdepartmental care team.
--- NOTE | 2020-07-06 11:38 | PDOC.ERCMPRO ---
- If Service Date Differs Date of service: 07/06/20 Time of Service: 11:38 Care Management Progress Note S/O: Asim is brought to the ED via police after reportedly making threats of harming himself to his [facility] family preservation caseworker on the telephone. He reports struggling at home and being unable to remain safe. He admits to ongoing suicidal thoughts with a plan of cutting his wrists. Paperwork for an Emergency Examination is done Sunday evening to place Asim on involuntary status, but by the next morning he is agreeable to seeking placement so is made a voluntary patient. Asim spent most of Sunday asleep. CM attempted to meet with him on several occasions but Asim did not wish to engage in conversation and CM respected his wish. A: Asim is a 54 year old male awaiting a voluntary psych placement. P: There are no available psych beds today. Asim will remain at [facility] while [facility] continues to seek a voluntary placement for him. CM will continue to follow.
[2020-07-07] MEDS: OLANZapine 5 MG TAB PO (06:41)
[2020-07-07] MEDS: Omeprazole 20 MG CAPCR PO (06:41)
[2020-07-07] MEDS: Levothyroxine 75 MCG TAB PO (06:41)
[2020-07-07] MEDS: Sertraline 50 MG TAB 100 MG PO (06:41)
--- NOTE | 2020-07-07 06:53 | NUR.NOTE ---
Nurse in to pt room to administer morning medication. Pt stated You might as well get the paperwork together because I got shit to do. made aware and MANGO paged. MH asked how quickly he wants to leave, stated that his rn field case manager will be in at 0830 and they had planned to meet with him. Nurse relayed information to patient, patient stated Yeah I can wait, but I am not going back to that home, I will put a lot of people in the hospital. MH made aware and will pass on to on coming RN.
--- NOTE | 2020-07-07 09:52 | CMPROGNOTE_ITS ---
- If Service Date Differs Date of service: 07/07/20 Time of Service: 09:52 Care Management Progress Note CM was notified that Asim demanded his things and wanted to leave the hospital. CM met with him and expressed concern for his well-being and safety. Asim states he is frustrated with [facility]. He feels no one is listening to him. He has several complaints about his downstairs neighbors in his apartment building and says no one is addressing his complaints. He shares he is done wit h [facility] and says if anyone from [facility] shows up at his apartment, he will treat them as trespassers but does not elaborate. CM inquires several times if he can remain safe at home to which he replies I don't know. Dr. Huffman joins the conversation and he tells her he is not suicidal. Dr. Huffman also requests for him to speak with Tamie, [facility] Director Of Sales And Marketing, and he refuses. Asim then leaves the hospital on foot. CM contacts the [facility] Police to advise Asim has eloped from [facility], per the requirement of the voluntary safety plan. OLIMPIA also speaks with Tamie to relay the conversation with Asim and to warn against going to his apartment. - MH Services (Omit if N/A) Current MH Services: CRANE LADLE PERSON
--- NOTE | 2020-07-07 09:52 | PDOC.ERCMPRO ---
- If Service Date Differs Date of service: 07/07/20 Time of Service: 09:52 Care Management Progress Note OLIMPIA was notified that Asim demanded his things and wanted to leave the hospital. CM met with him and expressed concern for his well-being and safety. Asim states he is frustrated with [facility]. He feels no one is listening to him. He has several complaints about his downstairs neighbors in his apartment building and says no one is addressing his complaints. He shares he is done with [facility] and says if anyone from [facility] shows up at his apartment, he will treat them as trespassers but does not elaborate. CM inquires several times if he can remain safe at home to which he replies I don't know. Dr. Huffman joins the conversation and he tells her he is not suicidal. Dr. Huffman also requests for him to speak with Tamie, [facility] Cytogenetic Technologist, and he refuses. Asim then leaves the hospital on foot. CM contacts the [facility] Police to advise Asim has eloped from [facility], per the requirement of the voluntary safety plan. CM also speaks with Tamie to relay the conversation with Asim and to warn against going to his apartment. - MH Services (Omit if N/A) Current MH Services: ADMITTING COUNSELOR
--- NOTE | 2020-07-07 13:36 | PDOC.MHCN_ITS ---
Date of service: 07/06/20 Time of Service: 13:36 Mental Health Crisis Note Presenting Issue How did you arrive at the ED and why did you come: Pt arrived to [facility] on 07.05.2020 and was placed on EE status after making statements to by suicide. Precipitating Factors Pt reported that that he is still having SI but denied HI. He reported he would slit his wrists. He does not appear to be having any delusions. Disposition BEHAVIOR: Pt is cooperative with the assessment and is willing to stay voluntarily. EYE CONTACT: Eye contact is good MOOD: Mood appears depressed and is endorsed by Pt to be depressed. AFFECT: Affect appears tired and flat. APPETITE: Pt reported he is eating. SLEEP(trouble falling/staying asleep: Pt reported he sleeps well when at the hospital. Plan Pt agrees to voluntary placement and therefore was walked off his EE. He will remain at [facility] pending ability to properly safety plan to return to daily activities or when placement is found. Signature Clinician's Name/Title: Tamie Mccord MS, [facility] Emergency Services Clinician, [facility]
== END 2020-07-07 09:20 | disposition home or self-care (01) ==
PROVIDERS: Student in an Organized Health Care Education/Training Program; Emergency Provider Physician Assistant; PCP Nurse Practitioner
DX: F32.9 Major depressive disorder, single episode, unspecified (principal); R45.851 Suicidal ideations; J44.9 Chronic obstructive pulmonary disease, unspecified; F17.210 Nicotine dependence, cigarettes, uncomplicated; Z20.822 Contact with and (suspected) exposure to COVID-19
CPT/HCPCS: 80053; 80307; 99281; 99285; 80320; 80329; 82140; 85025

== ENCOUNTER 2020-07-09 17:05 | Emergency (ER) | payer MEDICAID, SELFPAY ==
[2020-07-09 17:17] VITALS: BP 122/89; PULSE 98; RESP 18; TEMP 37; O2SAT 100
--- NOTE | 2020-07-09 17:53 | ED.GENADUL_ITS ---
Discharge Plan Disposition Patient Disposition: HOME Condition: Stable Discharge Details Clinical Impression: Depression with suicidal ideation Primary Care Provider: Fariba Forde ED Provider: Cinthya Majano Home Meds and New Rx's Prescriptions: Continued omeprazole 20 MG capsule,delayed release(DR/EC) 20 mg PO QAM RF: 0 magnesium oxide 400 mg (241.3 mg magnesium) tablet 400 mg PO QAM RF: 0 sennosides [senna] 8.6 mg Tablet 8.6 mg PO BID PRNRF: 0 sertraline 100 mg Tablet 100 mg PO DAILY RF: 0 hydroxyzine pamoate [Vistaril] 25 mg Capsule 25 mg PO BID RF: 0 trazodone 50 mg tablet 50 mg PO HS RF: 0 olanzapine 5 mg tablet 5 mg PO DAILY RF: 0 melatonin 3 mg tablet 6 mg PO HS RF: 0 pravastatin 20 mg tablet 20 mg PO HS RF: 0 No Action levothyroxine 88 mcg Tablet 88 mcg PO DAILY RF: 0 prazosin 2 mg Capsule 2 mg PO QHS RF: 0 Discharge Instructions Instructions: Depression (ED), Suicide Prevention (ED) Additional Instructions: Please return immediately to the emergency department if you develop any new or worsening symptoms, if your condition does not improve as expected, or if you become otherwise concerned. It is extremely important that you call soon as possible to make an appointment to be seen in follow-up for this visit by your primary care doctor. Referrals: Fariba Forde [Primary Care Provider] - Discharge Data Discharge Date/Time-TO BE ENTERED AT DEPARTURE: 07/12/20 12:00 Medical Decision Making <Francisco Majano MD - Last Filed: 07/23/20 16:05> [birth year]09??54yo m with history of bipolar, anxiety, suicidality in the past, here with suicidal thoughts. Patient is here voluntarily at this time. Patient was seen in emergency department recently and apparently discharged with outpatient services. He had a medical work-up at that time that was negative. I have performed medical screening and he has no acute medical condition identified on exam. I will send labs out of abundance of caution including Covid testing. One-to-one clinical patient observer is been ordered per protocol. Patient is in blue scrubs. Care management has been consulted to develop care plan. [facility] human services crisis screener has been contacted. To expedite transfer process I have called the potential receiving facilities including [facility] and [facility] that note they have no beds available. I called [facility] to request transfer and awaiting callback. I called [facility] and requested transfer and they noted no capacity through the weekend. -- Patient given valium 5mg for anxiety and sleep. Medical Records Medical records reviewed: Yes I reviewed the patient's medical records. Lab Data Lab results reviewed: Yes I reviewed the patient's lab results. Labs: Laboratory Tests Range/Units 07/09/20 07/09/20 07/09/20 17:55 17:55 17:55 WBC (4.4-10.8) 10^3/uL 12.74 H RBC (4.36-5.78) 10^6/uL 5.48 Hgb (13.5-17.5) g/dL 15.0 Hct (40.0-50.0) % 44.7 MCV (80-95) fL 81.6 MCH (27.0-33.0) pg 27.4 MCHC (32.0-36.0) % 33.6 RDW (11.8-14.1) % 13.4 Plt Count (130-400) 10^3/uL 230 MPV (8.0-11.0) fL 9.6 Immature Gran % 0.5 Neutrophils % 69.1 Lymphocytes % 23.3 Monocytes % 5.4 Eosinophils % 1.3 Basophils % 0.4 Nucleated RBC % % 0 Absolute Neutrophils (1.2-6.7) 10^3/uL 8.80 H Absolute Lymphocytes (1.2-3.4) 10^3/uL 2.97 Absolute Monocytes (0.1-0.8) 10^3/uL 0.69 Absolute Eosinophils (0.0-0.7) 10^3/uL 0.17 Absolute Basophils (0.0-0.2) 10^3/uL 0.05 Sodium (136-145) mmol/L 135 L Potassium (3.5-5.1) mmol/L 3.6 Chloride (98-107) mmol/L 100 Carbon Dioxide (21.0-32.0) mmol/L 24.0 Anion Gap (3-11) mmol/L 11.0 BUN (7-18) mg/dL 13 Creatinine (0.70-1.30) mg/dL 0.9 Estimated GFR/1.73 m2 (mL/min/1.73m2) >= 60.00 Glucose (74-106) mg/dL 130 H Calcium (8.5-10.1) mg/dL 9.1 Total Bilirubin (0.2-1.0) mg/dL 0.4 AST (15-37) U/L 24 ALT (16-63) U/L 37 Alkaline Phosphatase (46-116) U/L 115 Total Protein (6.4-8.2) g/dL 8.2 Albumin (3.4-5.0) g/dL 3.8 Salicylates (<2.8) mg/dL 3.9 Acetaminophen (10-30) ug/mL < 2 COVID-19 Source SARS-CoV-2 (PCR) (Negative) Influenza Type A (PCR) (Negative) Influenza Type B (PCR) (Negative) RSV (PCR) (Negative) Range/Units 07/09/20 17:55 WBC (4.4-10.8) 10^3/uL RBC (4.36-5.78) 10^6/uL Hgb (13.5-17.5) g/dL Hct (40.0-50.0) % MCV (80-95) fL MCH (27.0-33.0) pg MCHC (32.0-36.0) % RDW (11.8-14.1) % Plt Count (130-400) 10^3/uL MPV (8.0-11.0) fL Immature Gran % Neutrophils % Lymphocytes % Monocytes % Eosinophils % Basophils % Nucleated RBC % % Absolute Neutrophils (1.2-6.7) 10^3/uL Absolute Lymphocytes (1.2-3.4) 10^3/uL Absolute Monocytes (0.1-0.8) 10^3/uL Absolute Eosinophils (0.0-0.7) 10^3/uL Absolute Basophils (0.0-0.2) 10^3/uL Sodium (136-145) mmol/L Potassium (3.5-5.1) mmol/L Chloride (98-107) mmol/L Carbon Dioxide (21.0-32.0) mmol/L Anion Gap (3-11) mmol/L BUN (7-18) mg/dL Creatinine (0.70-1.30) mg/dL Estimated GFR/1.73 m2 (mL/min/1.73m2) Glucose (74-106) mg/dL Calcium (8.5-10.1) mg/dL Total Bilirubin (0.2-1.0) mg/dL AST (15-37) U/L ALT (16-63) U/L Alkaline Phosphatase (46-116) U/L Total Protein (6.4-8.2) g/dL Albumin (3.4-5.0) g/dL Salicylates (<2.8) mg/dL Acetaminophen (10-30) ug/mL COVID-19 Source Nasopharynx SARS-CoV-2 (PCR) (Negative) Negative Influenza Type A (PCR) (Negative) Negative Influenza Type B (PCR) (Negative) Negative RSV (PCR) (Negative) Negative <Jewel Lackey MD - Last Filed: 07/10/20 07:44> Patient slept all night and there were no issues. Requesting his morning med ications and breakfast now. Medications have been reconciled and orders placed for his daily medications while here. Be signed over to [facility] physician hopefully moved to transition unit versus transfer to psychiatric hospital today. Lab Data Lab results reviewed: Yes I reviewed the patient's lab results. <Rani Huffman DO - Last Filed: 07/11/20 19:39> 07/10/20 0800 --please see previous providers notes for initial presentation, exam and ongoing course. Case endorsed to continue to monitor patient today with likely plan to remain in the ER over the weekend. Case discussed with care management and team during huddle. There is a potential for a care bed for patient but this may not happen this weekend. 1900 --no acute events today. 1999 --Case endorsed to [facility] provider to continue to monitor overnight. 07/11/20 0800 --no acute events overnight. Patient in the doorway talking frequently to the CPSO. He has voiced thoughts of wanting to leave. Discussed with care management that we recommend they and mental health speak with patient at bedside to ensure him that it is best to stay while awaiting placement or a care bed as if he leaves he will have to start this whole process over again. Care management discussed with patient at bedside noting that there may be a care bed available for him tomorrow. Patient cooperative and agreeable with this plan to wait at this time. 1130 --as patient has been here for more than 24 hours without any acute event, and he appears to be getting bored, plan was made for patient to have something he can do at bedside. Attempting to access programs on ipad. Patient evaluated by care management and mental health at bedside and have agreed to give patient his phone to play games. 1930 --no other acute events today. Patient has remained cooperative. Case endorsed to Dr. Fierro to monitor overnight while awaiting placement. <Asim Fierro MD - Last Filed: 07/11/20 20:14> pt signed out to me with plan to continue to monitor until psychatric bed can be found or care bed. Pt calm and resting in room cooperative. Will continue to monitor until change of shift <Cinthya Majano MD - Last Filed: 07/12/20 15:11> Patient signed out to me by Dr. Fierro at time of shift change. Patient was sleeping comfortably at that time. Patient stated after waking that he has been feeling much improved and is no longer having suicidal thoughts. He states that he feels that he would be more comfortable at home and has good support at home. Patient states that he does not want to and does not want to harm himself in any way. Care management and mental health involved at this point. Patient rescreened by mental health, who states that patient is cleared for discharge to home, no longer expressing any suicidality. I discussed plan for discharge home with patient. He reports that he feels safe at home, with no intent to harm himself, and does not feel that he would benefit from being inpatient anymore as his feelings that brought him to the emergency department have now resolved. Patient reports that he feels that he has support at home, is comfortable with outpatient plan for follow-up. I had a lengthy discussion with Patient regarding return to emergency department precautions, home care, and importance of outpatient follow-up. Pt verbalizes understanding of the plan and is amenable. Patient discharged to home with clear plan for outpatient follow-up. All questions were answered. Disposition decision was made weighing the risks and benefits of hospitalization versus outpatient treatment, the risk for further decompensation, and the patient's wishes. HPI <Francisco Majano MD - Last Filed: 07/23/20 16:05> General Mode of arrival: EMS (police) . Date/Time Provider Initiated Documentation: 07/09/20 17:11 . Limitations to Documentation: no limitations . Information obtained by: patient . HPI Narrative: 54-year-old male with history of bipolar disorder, frequent ED visits in the past for suicidal ideation, here with chief complaint of suicidal ideation. Symptoms are severe, constant for a couple days, no modifiers. He notes he has not taken his medication as prescribed for at least a couple days. He notes that he has smoked marijuana but denies other drug use. He does smoke cigarettes. No alcohol consumption. Denies toxic ingestion. Patient notes that he called his friends and family did not say goodbye today. He had plan to cut his wrist with razor blade. He states I cannot do this anymore. Patient called [facility] and they advised him to come to the emergency department for evaluation. Of note patient was recently here in the emergency department for a couple days for suicidality and apparently was discharged with outpatient services. Related Data Home Medications Medication Instructions Recorded Confirmed omeprazole 20 mg PO QAM 10/16/13 07/18/20 magnesium oxide 400 mg PO QAM 10/20/19 07/18/20 melatonin 6 mg PO HS 12/19/19 07/18/20 olanzapine 5 mg PO DAILY 12/19/19 07/18/20 pravastatin 20 mg PO HS 12/19/19 07/18/20 trazodone 50 mg PO HS 12/19/19 07/18/20 hydroxyzine pamoate [Vistaril] 25 mg PO BID 04/05/20 07/18/20 sennosides [senna] 8.6 mg PO BID PRN 04/05/20 07/18/20 sertraline 100 mg PO DAILY 04/05/20 07/18/20 levothyroxine 88 mcg PO DAILY 07/18/20 07/18/20 prazosin 2 mg PO QHS 07/18/20 07/18/20 Allergies Allergy/AdvReac Type Severity Reaction Status Date / Time Sulfa (Sulfonamide Allergy Severe Swelling/Ed Unverified 07/01/20 08:49 Antibiotics) jostin General Stated Complaint: PsychEval ABA: 2 Review of Systems <Francisco Majano MD - Last Filed: 07/23/20 16:05> All systems reviewed & are unremarkable except as noted in HPI and below Constitutional Constitutional: Denies headache(s) ENT Ears, Nose, Mouth, and Throat: Denies headache(s) Neurologic Neurologic: Denies headache(s) Psychiatric Psychiatric: Reports depression PFSH <Francisco Majano MD - Last Filed: 07/23/20 16:05> Medical History Anxiety Bipolar disorder COPD (chronic obstructive pulmonary disease) GERD (gastroesophageal reflux disease) Hypercholesterolemia Hypothyroid Traumatic pneumothorax 2017, chest tube x2 Surgical History History of ankle surgery S/P thoracostomy tube placement Social History Smoking/Tobacco Use Status: Current every day Tobacco Type: cigarettes Smoking risk assessment performed?: Yes Alcohol Intake: current Drug use: Daily Substance use type: marijuana Current gender identity: male Do you feel safe at home: Yes Do you feel safe in your relationship?: Yes Exam <Francisco Majano MD - Last Filed: 07/23/20 16:05> Const General: cooperative HENMT Mouth: moist mucous membranes Eyes Conjunctivae: normal conjunctivae Sclera: normal sclerae Neck Neck: trachea midline and supple Resp Auscultation: clear to auscultation bilaterally, no rales, no rhonchi and no wheezes Cardio Rate: regular rate and not tachycardic Rhythm: regular rhythm GI Palpation: soft, not firm, no guarding, no masses, not rigid and nontender Skin General skin exam: no rashes or lesions noted Neuro General: patient alert, patient awake and tone normal Extrem General: no edema Psych Appearance: grossly normal Mental Status: mental status grossly normal Mood: other (Depressed) Affect: anxious affect Attitude: cooperative Thought Content: suicidality Insight: insight good Course <Francisco Majano MD - Last Filed: 07/23/20 16:05> Vital Signs Vital signs: Vital Signs Temperature 37 C 07/09/20 17:17 Pulse 98 H 07/09/20 17:17 Respiratory Rate 18 07/09/20 17:17 Blood Pressure 122/89 07/09/20 17:17 Pulse Oximetry 100 07/09/20 17:17 Temperature 37 C 07/09/20 17:17 Temperature Source Skin 07/09/20 17:17 Pulse 98 H 07/09/20 17:17 Respiratory Rate 18 07/09/20 17:17 Respiratory Effort Non-Labored 07/09/20 17:22 Blood Pressure 122/89 07/09/20 17:17 Blood Pressure Position Standing 07/09/20 17:17 Pulse Oximetry 100 07/09/20 17:17 Oxygen Delivery Method Room Air 07/09/20 17:17 Oxygen Flow Rate 0 07/09/20 17:17 Pain Level 0 07/09/20 17:17 Sign Out <Francisco Majano MD - Last Filed: 07/23/20 16:05> Sign Out Data: Sign Out Comment: Care signed out to Dr. Lackey with plan to continue psychiatric hold awaiting acceptance to psychiatric treatment facility. Last updated by Francisco Majano MD at 07/10/20 00:09 Sign Out Comment: Pending placement to psychiatric hospital. Last updated by Jewel Lackey MD at 07/10/20 07:49 Sign Out Comment: Pending placement to psychiatric hospital. Last updated by Rani Huffman DO at 07/10/20 19:49 Sign Out Comment: Continues to be voluntary. No issues overnight. Calm and cooperative, taking his medication. Last updated by Jewel Lackey MD at 07/11/20 07:32 Sign Out Comment: Pending placement to care bed or psychiatric hospital. Last updated by Rani Huffman DO at 07/11/20 19:38 Sign Out Comment: holding until psychiatric bed is found or care bed, reconsult mental health Sunday Last updated by Asim Fierro MD at 07/11/20 22:15
[2020-07-09 18:03] LABS: Source Nasopharynx
[2020-07-09 18:07] LABS: Abs Immature Grans 0.06 10^3/uL (0.0-0.06); Absolute Basophil Count 0.05 10^3/uL (0.0-0.2); Absolute Lymphocyte Count 2.97 10^3/uL (1.2-3.4); Absolute Monocyte Count 0.69 10^3/uL (0.1-0.8); Basophils % 0.4; Eosinophils % 1.3; HCT 44.7 % (40.0-50.0); Immature Grans % 0.5; Lymphocytes % 23.3; MCH 27.4 pg (27.0-33.0); MCHC 33.6 % (32.0-36.0); MCV 81.6 fL (80-95); MPV 9.6 fL (8.0-11.0); Monocytes % 5.4; Neutrophils % 69.1; Nucleated RBC 0 %; Platelet Count 230 10^3/uL (130-400); RBC 5.48 10^6/uL (4.36-5.78); RDW 13.4 % (11.8-14.1); RDW-SD 39.8 fL; WBC 12.74 10^3/uL (4.4-10.8)
[2020-07-09 18:14] LABS: Absolute Eosinophil Count 0.17 10^3/uL (0.0-0.7)
--- NOTE | 2020-07-09 18:22 | CMSP_ITS ---
- If Service Date Differs Date of service: 07/09/20 Time of Service: 18:22 Care Management Safety Plan Status: Voluntary Chief Complaint: Asim is a 54 year old male who is well known to [facility]. He receives services through [facility] RN ANESTHETIST program. This is Asim's 5th visit to the emergency department for suicidal ideation this month. Asim was at [facility] just a few days ago awaiting a psych placement and was subsequently discharged home on a safety plan. Asim returned to the ED 3 days later, again feeling unsafe at home. He eloped from the ED after waiting for a voluntary inpatient bed for 2 days. Noemí Dailey again presents with suicidal ideation and is seeking voluntary placement. CM will respond to ED to assess patient after patient has been medically cleared and assessed by screener. If screener deems patient meets criteria for psychiatric stabilization CM will facilitate interdepartmental huddle with [facility] screener for safety planning considerations and meet with patient to review [facility] policy and safety plan, establish individual wishes for treatment and maintain patient rights. In the interim, please note safety plan below to guide patient care while awaiting further assessment in the ED. SAFETY PLAN: 1. Will remain on suicide precautions in paper clothes. 2. Will remain in room under direct supervision of one-on-one staff at all times provided by CPSO, DONTAE, BILL ADJUSTER construction and maintenance inspector. 3. May have paper cups, plates, finger foods as well as a cardboard spoon with which to eat meals. 4. Follow [facility] Management of the Admitted Behavioral Health Patient policy. 5. Comfort bath only. 6. No personal belongings. 7. Visitors-No visitors at this time 8. Activities: Television when available, coloring books, crayons, and other activities at nursing discretion. 9. Bathroom privileges: Must be accompanied by staff while in the ED. 10. Phone: No phone calls at this time. 11. Due to VOLUNTARY status, if patient wishes to leave [facility], staff will contact [facility] Crisis Screener ([phone]) and On-Call Nuclear Equipment Design Engineer ([phone]) as soon as possible. In the event of elopement, notify [facility] Police ([phone]). If deemed appropriate for inpatient psychiatric care, safety plan will be established with patient, and care team, to adhere to patient goals, identify restrictions based on behavioral status, address nutrition, and determine allowed personal belongings, tools for hygiene and personal care. As well plan will determine level of activity including ambulation, level of supervision, visitors, and determine privileges based on level of acuity, behaviors and level of engagement by patient.
[2020-07-09 18:24] LABS: Salicylate 3.9 mg/dL (<2.8)
[2020-07-09 18:25] LABS: Acetaminophen < 2 ug/mL (10-30)
[2020-07-09 18:31] LABS: ALT 37 U/L (16-63); AST 24 U/L (15-37); Albumin 3.8 g/dL (3.4-5.0); Alkaline Phosphatase 115 U/L (46-116); BUN 13 mg/dL (7-18); Bilirubin, Total 0.4 mg/dL (0.2-1.0); CREATININE 0.9 mg/dL (0.70-1.30); Calcium 9.1 mg/dL (8.5-10.1); Chloride 100 mmol/L (98-107); Glucose 130 mg/dL (74-106); Potassium 3.6 mmol/L (3.5-5.1); Sodium 135 mmol/L (136-145); Total Protein 8.2 g/dL (6.4-8.2)
--- NOTE | 2020-07-09 18:33 | PDOC.MHCN_ITS ---
Date of service: 07/09/20 Time of Service: 18:34 Mental Health Crisis Note Presenting Issue How did you arrive at the ED and why did you come: Client arrived at [facility] ED via VSP upon calling [facility] stating that he had a razor blade in his hand and he was going to use it to cut his wrists both ways so he could bleed out. Precipitating Factors Client states that he is currently having SI with plan. Disposition BEHAVIOR: Cleint is calm and cooperative during the assessment. EYE CONTACT: Client's eye contact is distorted making fair eye contact with this check writer salesperson, but also looking around the room at times. MOOD: Client appears to be depressed and hopeless, stating that he has nothing to live for. AFFECT: Client has flat affect. APPETITE: Client states that he has not eaten in 3 days, states that he has no appetite. SLEEP(trouble falling/staying asleep: Client states that he has not slept in about 3 days, stating that when he tries to go to sleep his mind won't shut down. Plan Client will remain at [facility] ED on voluntary status. Calls made to Rodrigo Hinkle, [facility], [facility], and [facility] and there are no available beds. This check writer salesperson will call again tomorrow to check on bed availability. Safety plan in place with partnership manager. If client decides to leave [facility] is to be called. Signature Clinician's Name/Title: Kelsi Hargrove [facility] Emergency Clinician
--- NOTE | 2020-07-09 18:33 | PDOC.MHCN ---
Date of service: 07/09/20 Time of Service: 18:34 Mental Health Crisis Note Presenting Issue How did you arrive at the ED and why did you come: Client arrived at [facility] ED via VSP upon calling [facility] stating that he had a razor blade in his hand and he was going to use it to cut his wrists both ways so he could bleed out. Precipitating Factors Client states that he is currently having SI with plan. Disposition BEHAVIOR: Cleint is calm and cooperative during the assessment. EYE CONTACT: Client's eye contact is distorted making fair eye contact with this bond writer, but also looking around the room at times. MOOD: Client appears to be depressed and hopeless, stating that he has nothing to live for. AFFECT: Client has flat affect. APPETITE: Client states that he has not eaten in 3 days, states that he has no appetite. SLEEP(trouble falling/staying asleep: Client states that he has not slept in about 3 days, stating that when he tries to go to sleep his mind won't shut down. Plan Client will remain at [facility] ED on voluntary status. Calls made to Rodrigo Hinkle, [facility], [facility], and [facility] and there are no available beds. This bond writer will call again tomorrow to check on bed availability. Safety plan in place with manager background. If client decides to leave [facility] is to be called. Signature Clinician's Name/Title: Kelsi Hargrove [facility] Emergency Clinician
[2020-07-09 18:48] LABS: COVID-19 PCR Negative (Negative); Influenza A PCR Negative (Negative); Influenza B PCR Negative (Negative); RSV PCR Negative (Negative)
[2020-07-09] MEDS: diazePAM 5 MG TAB PO (19:11)
[2020-07-10 07:06] LABS: *AMPHETAMINES SCREEN URINE Negative (Negative); *BENZODIAZEPINES SCREEN URINE Negative (Negative); Cocaine Screen,Urine Negative (Negative); METHADONE URINE SCREEN Negative (Negative)
[2020-07-10 07:07] LABS: *BARBITURATES SCREEN URINE Negative (Negative); Cannabinoids THC Negative (Negative); OPIATES URINE SCREEN Negative (Negative); Tricyclic Antidepressants Negative (Negative)
[2020-07-10] MEDS: hydrOXYzine PAMOATE 25 MG CAP PO ×2 (08:21→19:46)
[2020-07-10] MEDS: Omeprazole 20 MG CAPCR PO (08:22)
[2020-07-10] MEDS: Sertraline 50 MG TAB 100 MG PO (08:22)
[2020-07-10] MEDS: Magnesium Oxide 400 MG TAB PO (08:22)
[2020-07-10] MEDS: Levothyroxine 75 MCG TAB PO (08:22)
[2020-07-10] MEDS: OLANZapine 5 MG TAB PO (08:22)
--- NOTE | 2020-07-10 14:07 | PDOC.CMSAFED ---
- If Service Date Differs Date of service: 07/10/20 Time of Service: 14:07 Care Management Safety Plan Status: Voluntary Chief Complaint: Asim is a 54 year old male who is well known to [facility]. He receives services through [facility] SCIENCE MANAGER program. This is Asim's 5th visit to the emergency department for suicidal ideation this month. Asim was at [facility] about a week ago awaiting a psych placement and was subsequently discharged home on a safety plan. Asim returned to the ED 3 days later, again feeling unsafe at home. He eloped from the ED after waiting for a voluntary inpatient bed for 2 days. Noemí Dailey again presents with suicidal ideation and is seeking voluntary placement. CM has responded to ED to assess patient after patient was medically cleared and assessed by screener. CM facilitated an interdepartmental huddle with [facility] screener Callie, nurse Selena, Dr. De La Cruz, slot floor supervisor Roya and CM Vikki for safety planning considerations. CM met with patient to review [facility] policy and safety plan, establish individual wishes for treatment and maintain patient rights. Please note safety plan below to guide patient care: SAFETY PLAN: 1. Will remain on suicide precautions in paper clothes. 2. Will remain in room under direct supervision of one-on-one staff at all times provided by CPSO, ORDER BUILDER LOADER, CAKE ICER AND PACKER stamping machine operator. 3. May have paper cups, plates, finger foods as well as a cardboard spoon with which to eat meals. 4. Follow [facility] Management of the Admitted Behavioral Health Patient policy. 5. Comfort bath only. 6. No personal belongings. 7. Visitors-No visitors at this time 8. Activities: Television when available, coloring books, crayons, and other activities at nursing discretion. 9. Bathroom privileges: Must be accompanied by staff while in the ED. 10. Phone: No phone calls at this time. 11. Due to VOLUNTARY status, if patient wishes to leave [facility], staff will contact [facility] Crisis Screener ([phone]) and On-Call Customer Experience Associate ([phone]) as soon as possible. In the event of elopement, notify [facility] Police ([phone]). If deemed appropriate for inpatient psychiatric care, safety plan will be established with patient, and care team, to adhere to patient goals, identify restrictions based on behavioral status, address nutrition, and determine allowed personal belongings, tools for hygiene and personal care. As well plan will determine level of activity including ambulation, level of supervision, visitors, and determine privileges based on level of acuity, behaviors and level of engagement by patient.
[2020-07-10 17:28] VITALS: BP 118/82; PULSE 78; RESP 18; TEMP 36.8; O2SAT 95
[2020-07-10 19:45] VITALS: BP 114/70; PULSE 87; RESP 18; TEMP 37.2; O2SAT 92
[2020-07-10] MEDS: Melatonin 3 MG TAB 6 MG PO (19:47)
[2020-07-10] MEDS: Pravastatin 20 MG TAB PO ×2 (19:47→20:36)
[2020-07-10] MEDS: traZODone 50 MG TAB PO (19:47)
[2020-07-11] MEDS: Levothyroxine 75 MCG TAB PO (06:16)
[2020-07-11] MEDS: Omeprazole 20 MG CAPCR PO (07:20)
[2020-07-11] MEDS: Sertraline 50 MG TAB 100 MG PO (08:35)
[2020-07-11] MEDS: hydrOXYzine PAMOATE 25 MG CAP PO ×2 (08:35→21:08)
[2020-07-11] MEDS: OLANZapine 5 MG TAB PO (08:36)
[2020-07-11] MEDS: Magnesium Oxide 400 MG TAB PO (08:36)
[2020-07-11 09:44] VITALS: BP 127/86; PULSE 63; RESP 18; TEMP 37.1; O2SAT 96
[2020-07-11 18:15] VITALS: BP 115/75; PULSE 75; RESP 16; TEMP 37.4; O2SAT 93
[2020-07-11] MEDS: traZODone 50 MG TAB PO (21:08)
[2020-07-11] MEDS: Pravastatin 20 MG TAB PO (21:08)
[2020-07-11] MEDS: Melatonin 3 MG TAB 6 MG PO (21:09)
[2020-07-12] MEDS: Omeprazole 20 MG CAPCR PO (08:06)
[2020-07-12] MEDS: Magnesium Oxide 400 MG TAB PO (08:06)
[2020-07-12] MEDS: OLANZapine 5 MG TAB PO (08:06)
[2020-07-12] MEDS: Levothyroxine 75 MCG TAB PO (08:06)
[2020-07-12] MEDS: hydrOXYzine PAMOATE 25 MG CAP PO (08:06)
[2020-07-12] MEDS: Sertraline 50 MG TAB 100 MG PO (08:07)
--- NOTE | 2020-07-12 10:13 | CMSP_ITS ---
- If Service Date Differs Date of service: 07/12/20 Time of Service: 10:13 Care Management Safety Plan Status: Voluntary CM has responded to ED to assess patient after patient was medically cleared and assessed by screener. CM facilitated an interdepartmental huddle with Dr. Majano, supervisor painting shipyard Rizwana, nurse Sole, and CM for safety planning considerations. CM met with patient to review [facility] policy and safety plan, establish individual wishes for treatment and maintain patient rights. Please note safety plan below to guide patient care: SAFETY PLAN: 1. Will remain on suicide precautions in paper clothes. 2. Will remain in room under direct supervision of one-on-one staff at all times provided by CPSO, DONTAE, CHLORINE CELL TENDER special forces warrant officer. 3. May have paper cups, plates, finger foods as well as a cardboard spoon with which to eat meals. 4. Follow [facility] Management of the Admitted Behavioral Health Patient policy. 5. Comfort bath only. 6. No personal belongings. 7. Visitors-No visitors at this time per [facility] Covid policy. 8. Activities: Television when available, coloring books, crayons, and other activities at nursing discretion. 9. Bathroom privileges: Must be accompanied by staff while in the ED. 10. Phone: Permitted to have his cell phone and to use the phone without limitation as long as phone calls do not cause Asim to become agitated, at which time the phone will be removed. 11. Due to VOLUNTARY status, if patient wishes to leave [facility], staff will contact [facility] Crisis Screener ([phone]) and On-Call Foundry Tender ([phone]) as soon as possible. In the event of elopement, notify [facility] Police ). If deemed appropriate for inpatient psychiatric care, safety plan will be established with patient, and care team, to adhere to patient goals, identify restrictions based on behavioral status, address nutrition, and determine allowed personal belongings, tools for hygiene and personal care. As well plan will determine level of activity including ambulation, level of supervision, visitors, and determine privileges based on level of acuity, behaviors and level of engagement by patient.
[2020-07-12 11:16] VITALS: BP 129/84; PULSE 65; RESP 16; TEMP 36.3; O2SAT 94
--- NOTE | 2020-07-12 11:18 | PDOC.MHCN ---
Date of service: 07/12/20 Time of Service: 11:18 Mental Health Crisis Note Presenting Issue How did you arrive at the ED and why did you come: Pt arrived to the ER on 07.09.2020 via [facility] after reporting to his rehabilitation case coordinator that he was suicidal. Precipitating Factors Pt denied SI and HI during this assessment. He is not showing any signs of delusions. Disposition BEHAVIOR: Pt is engaged in the assessment and is stating that he wants to go home. He reported that he likely will not stay there long but will likely go visit a friend. EYE CONTACT: Pt makes good eye contact. MOOD: Pt reported that he is hopeful and no longer seeking a voluntary inpatient placement. He was joking during this assessment. AFFECT: Pt's affect apeared happy as evident by smiling. APPETITE: Pt reported he is eating but needs food for home. SLEEP(trouble falling/staying asleep: Pt reported he slept well through the weekend. Plan Pt discharged home. He reported that he knows he is in crisis when he is withdrawn, quiet, and has a loss of interest in things he enjoys. He said his thoughts become fuzzy. Pt reported that he will smoke THC, watch movies, listen to music, and be on the internet. He identified his natural support as a single friend and his professional supports as his AREA REPRESENTATIVE correctional case manager. He reported that his self care is the same as his interest and that the one thing worth living for his the hope to find a female who has the same interest as him so he is not alone. Pt plans to go home and outreach to his correctional case manager and hopefully get some food. He also will need support in getting his services back in place that he has cancelled. This clinician will update his rehabilitation case coordinator. Signature Clinician's Name/Title: Tamie Mccord MS, [facility] Emergency Services Clinician, [facility]
--- NOTE | 2020-07-12 11:43 | CMPROGNOTE_ITS ---
- If Service Date Differs Date of service: 07/12/20 Time of Service: 11:43 Care Management Progress Note S/O: Asim presented in the ED on 07/09/2020 after telling [facility] on the telephone that he was going to harm himself by cutting his wrists. [facility] contacted the [place] [employer] who responded to Asim's home and subsequently transported him to [facility] for a psychiatric evaluation. Asim remained at [facility] all weekend, awaiting a voluntary psychiatric placement. Today, he reports feeling better and denies suicidal ideation. He is joking around and laughing and his affect is brighter. He met with [facility] Crisis Screener, via zoom this morning for a reassessment and is deemed safe to be discharged home. A: Asim is a 54 year old male admitted to [facility] on 07/09/2020 for a psychiatric evaluation. P: Asim is denying current suicidal ideation and is able to enter into a safety plan with [facility] Crisis Screener. He is, therefore, being discharged home and he will follow-up with his [facility] THERAPY TECH case preparer and liner on an outpatient basis. Asim is transported home via [facility].
--- NOTE | 2020-07-12 11:43 | PDOC.ERCMPRO ---
- If Service Date Differs Date of service: 07/12/20 Time of Service: 11:43 Care Management Progress Note S/O: Asim presented in the ED on 07/09/2020 after telling [facility] on the telephone that he was going to harm himself by cutting his wrists. [facility] contacted the [place] [employer] who responded to Asim's home and subsequently transported him to [facility] for a psychiatric evaluation. Asim remained at [facility] all weekend, awaiting a voluntary psychiatric placement. Today, he reports feeling better and denies suicidal ideation. He is joking around and laughing and his affect is brighter. He met with [facility] Crisis Screener, via zoom this morning for a reassessment and is deemed safe to be discharged home. A: Asim is a 54 year old male admitted to [facility] on 07/09/2020 for a psychiatric evaluation. P: Asim is denying current suicidal ideation and is able to enter into a safety plan with [facility] Crisis Screener. He is, therefore, being discharged home and he will follow-up with his [facility] REAL ESTATE LEASING AGENT pillowcase turner on an outpatient basis. Asim is transported home via [facility].
[2020-07-12 12:08] VITALS: BP 129/84; PULSE 65; TEMP 36.3; O2SAT 96
== END 2020-07-12 12:00 | disposition home or self-care (01) ==
PROVIDERS: Student in an Organized Health Care Education/Training Program; Emergency Provider Student in an Organized Health Care Education/Training Program; PCP Nurse Practitioner
DX: F32.9 Major depressive disorder, single episode, unspecified (principal); R45.851 Suicidal ideations; J44.9 Chronic obstructive pulmonary disease, unspecified; F17.210 Nicotine dependence, cigarettes, uncomplicated; Z20.822 Contact with and (suspected) exposure to COVID-19
CPT/HCPCS: 36415; 80053; 80307; 99281; 99285; 80329; 85025; 99284

== ENCOUNTER 2020-07-17 19:54 | Observation (INO) | payer MEDICAID, SELFPAY ==
[2020-07-17 20:00] VITALS: BP 124/96; PULSE 95; RESP 16; TEMP 36.5; O2SAT 99
--- NOTE | 2020-07-17 20:02 | ED.GENADUL_ITS ---
Discharge Plan Disposition Patient Disposition: [facility] INPATIENT Condition: Stable Discharge Details Chief Complaint: PsychEval Clinical Impression: Depression with suicidal ideation Primary Care Provider: Fariba Forde ED Provider: Mickey Ragsdale Home Meds and New Rx's Prescriptions: No Action omeprazole 20 MG capsule,delayed release(DR/EC) 20 mg PO QAM RF: 0 magnesium oxide 400 mg (241.3 mg magnesium) tablet 400 mg PO QAM RF: 0 sennosides [senna] 8.6 mg Tablet 8.6 mg PO BID PRNRF: 0 sertraline 100 mg Tablet 100 mg PO DAILY RF: 0 hydroxyzine pamoate [Vistaril] 25 mg Capsule 25 mg PO BID RF: 0 trazodone 50 mg tablet 50 mg PO HS RF: 0 olanzapine 5 mg tablet 5 mg PO DAILY RF: 0 melatonin 3 mg tablet 6 mg PO HS RF: 0 levothyroxine 75 mcg tablet 75 mcg PO DAILY RF: 0 pravastatin 20 mg tablet 20 mg PO HS RF: 0 Medical Decision Making 54-year-old male with a past medical history of suicidal ideations, COPD, depression, presents today for mental health evaluation. The patient has had multiple visits to the emergency department for a few months episodes similar to this. Today he states that over the last 48 hours he has felt a dark cloud hovering over him that will not go away. Earlier today he states that he held a razor blade to the left neck and if I pickling solution maker I would have slit my throat. He denies any auditory or visual hallucinations but does admit to seeing occasional shadows. He denies any alcohol or drug use. He denies any other complaints at this time. He was talking with his mental health advocate and they called the police to bring him here to the ER for further evaluation. Patient denies any other complaints at this time. No other modifying factors. Patient is willing to seek help at this time. Physical exam is notably unremarkable. No evidence of excoriations or lacerations. Patient would benefit from mental health evaluation. Will get screening labs, monitor closely, get a CP SO, and reassess. 9:30 PM Patient has been stable here in the ER, he has been seen and assessed by mental health, they recommend admission for potential placement versus a care bed. No beds available tonight. Will recommend admission/observation in the hospital tonight. The patient remains voluntary. We will give him his nighttime trazodone, senna, pravastatin, melatonin, and Vistaril. Discussed the case with Dr. Ricardo, he agrees with the assessment and plan. Care management has been contacted by Simi, a care plan is in place. I have extensively reviewed the treatment plan with the patient. I have addressed all patient concerns at th is time. I have also discussed the plan with the admitting physician and they agree with the current assessment and plan and have agreed to assume responsibility for the patient. All parties demonstrate verbal understanding and agreement with our assessment and plan at this time. The documentation in this chart was dictated using [employer] dictation software. Please excuse any dictation errors. HPI General Date/Time Provider Initiated Documentation: 07/17/20 19:55 . HPI Narrative: 54- year-old male with a past medical history of suicidal ideations, COPD, depression, presents today for mental health evaluation. The patient has had multiple visits to the emergency department for a few months episodes similar to this. Today he states that over the last 48 hours he has felt a dark cloud hovering over him that will not go away. Earlier today he states that he held a razor blade to the left neck and if I pickling solution maker I would have slit my throat. He denies any auditory or visual hallucinations but does admit to seeing occasional shadows. He denies any alcohol or drug use. He denies any other complaints at this time. He was talking with his mental health advocate and they called the police to bring him here to the ER for further evaluation. Patient denies any other complaints at this time. No other modifying factors. Patient is willing to seek help at this time. Related Data Home Medications Medication Instructions Recorded Confirmed omeprazole 20 mg PO QAM 10/16/13 07/10/20 magnesium oxide 400 mg PO QAM 10/20/19 07/10/20 levothyroxine 75 mcg PO DAILY 12/19/19 07/10/20 melatonin 6 mg PO HS 12/19/19 07/10/20 olanzapine 5 mg PO DAILY 12/19/19 07/10/20 pravastatin 20 mg PO HS 12/19/19 07/10/20 trazodone 50 mg PO HS 12/19/19 07/10/20 hydroxyzine pamoate [Vistaril] 25 mg PO BID 04/05/20 07/10/20 sennosides [senna] 8.6 mg PO BID PRN 04/05/20 07/10/20 sertraline 100 mg PO DAILY 04/05/20 07/10/20 Allergies Allergy/AdvReac Type Severity Reaction Status Date / Time Sulfa (Sulfonamide Allergy Severe Swelling/Ed Unverified 07/01/20 08:49 Antibiotics) jostin General Stated Complaint: PsychEval ABA: 2 Review of Systems All systems reviewed & are unremarkable except as noted in HPI and below PFSH Medical History Anxiety Bipolar disorder COPD (chronic obstructive pulmonary disease) GERD (gastroesophageal reflux disease) Hypercholesterolemia Hypothyroid Traumatic pneumothorax 2016, chest tube x2 Surgical History History of ankle surgery S/P thoracostomy tube placement Social History Smoking/Tobacco Use Status: Current every day Tobacco Type: cigarettes Smoking risk assessment performed?: Yes Alcohol Intake: current Drug use: Daily Substance use type: marijuana Current gender identity: male Do you feel safe at home: Yes Do you feel safe in your relationship?: Yes Exam Narrative Exam Narrative: 1.Const: Well-nourished, Well-developed, appearing stated age 2.Eyes: PERRL, no conjunctival injection, and symmetrical lids. 3.ENT: Atraumatic external nose and ears. Moist MM. Neck: Symmetric, trachea midline, No thyromegaly. 4.CVS: +S1/S2, No murmurs or gallops. Peripheral pulses 2+ and equal in all ex tremities. Brisk capillary refill in all extremities. 5.RESP: Unlabored respiratory effort. Clear to auscultation bilaterally. No wheezes rales or rhonchi 6.GI: Soft, Nontender/Nondistended, No hepatosplenomegaly. No guarding or rebound. 7.MSK: Normocephalic/Atraumatic, Extremities w/o deformity or ttp No cyanosis or clubbing, Normal movement of all extremities 8.Skin: Warm, Dry. No rashes or lesions. No evidence of lacerations cuts or skin excoriations on the neck or arms. 9.Neuro: vulcanizing press operator II-XII grossly intact. Sensation grossly intact, no focal neurologic deficits. 10.Psych: (AAO) x3. Appropriate mood and affect Course Vital Signs Vital signs: Vital Signs Temperature 36.5 C 07/17/20 20:00 Pulse 95 H 07/17/20 20:00 Respiratory Rate 16 07/17/20 20:00 Blood Pressure 124/96 H 07/17/20 20:00 Pulse Oximetry 99 07/17/20 20:00 Temperature 36.5 C 07/17/20 20:00 Pulse 95 H 07/17/20 20:00 Respiratory Rate 16 07/17/20 20:00 Blood Pressure 124/96 H 07/17/20 20:00 Pulse Oximetry 99 07/17/20 20:00 Pain Level 0 07/17/20 20:00
[2020-07-17 20:30] LABS: Abs Immature Grans 0.02 10^3/uL (0.0-0.06); Absolute Basophil Count 0.04 10^3/uL (0.0-0.2); Absolute Monocyte Count 0.67 10^3/uL (0.1-0.8); Absolute Neutrophil Count 6.57 10^3/uL (1.2-6.7); Basophils % 0.4; Eosinophils % 1.9; HCT 43.6 % (40.0-50.0); HGB 14.3 g/dL (13.5-17.5); Immature Grans % 0.2; Lymphocytes % 27.2; MCH 27.5 pg (27.0-33.0); MCHC 32.8 % (32.0-36.0); MCV 83.8 fL (80-95); MPV 10.1 fL (8.0-11.0); Monocytes % 6.5; Neutrophils % 63.8; Nucleated RBC 0 %; Platelet Count 247 10^3/uL (130-400); RDW 13.4 % (11.8-14.1); RDW-SD 41.2 fL
[2020-07-17 20:39] LABS: Ammonia 18 umol/L (11-32)
[2020-07-17 20:46] LABS: *AMPHETAMINES SCREEN URINE Negative (Negative); *BARBITURATES SCREEN URINE Negative (Negative); *BENZODIAZEPINES SCREEN URINE Negative (Negative); Cannabinoids THC POSITIVE (Negative); Cocaine Screen,Urine Negative (Negative); METHADONE URINE SCREEN Negative (Negative); OPIATES URINE SCREEN Negative (Negative)
--- NOTE | 2020-07-17 20:46 | PDOC.MHCN ---
Date of service: 07/17/20 Time of Service: 20:50 Mental Health Crisis Note Presenting Issue How did you arrive at the ED and why did you come: Client was brought to ED by [facility]. He is suicidal and is not able to contract for safety at home. He threatened to slash his wrists. Precipitating Factors Patient is Suicidal, stating that he had a razor blade to his throat and if he hiccuped it would have sliced his throat. He has not taken his psychiatric medications for two days. He stated he did not answer the door when they were delivered this morning. Disposition BEHAVIOR: he is calm and cooperative EYE CONTACT: he does not look into the screen for the Zoom interview MOOD: Depressed mood AFFECT: Flat APPETITE: Reports not eating SLEEP(trouble falling/staying asleep: Reports he hasn't slept for two days. Plan The patient refuses to contract for safety and can not be returned safely to his home. He does ot want to go to his home. Previous hospital placemennts have not helped and a referral to the [facility] Care Bed will be made for this placement. Signature Clinician's Name/Title: Simi [facility] Emergency Services Clinician
[2020-07-17 20:47] LABS: Tricyclic Antidepressants Negative (Negative)
[2020-07-17 20:51] LABS: ALT 36 U/L (16-63); AST 22 U/L (15-37); Albumin 3.5 g/dL (3.4-5.0); Alkaline Phosphatase 103 U/L (46-116); Anion Gap 9.7 mmol/L (3-11); BUN 17 mg/dL (7-18); Bilirubin, Total 0.2 mg/dL (0.2-1.0); CO2 27.3 mmol/L (21.0-32.0); CREATININE 0.9 mg/dL (0.70-1.30); Calcium 9.2 mg/dL (8.5-10.1); Chloride 103 mmol/L (98-107); Glucose 121 mg/dL (74-106); Potassium 3.8 mmol/L (3.5-5.1); Sodium 140 mmol/L (136-145); TSH (W/Ref FT4) 5.24 uIU/mL (0.36-3.74); Total Protein 7.6 g/dL (6.4-8.2)
[2020-07-17 20:52] LABS: Salicylate < 2.8 mg/dL (<2.8)
--- NOTE | 2020-07-17 20:53 | PDOC.CMSAFED ---
- If Service Date Differs Date of service: 07/17/20 Time of Service: 20:53 Care Management Safety Plan Status: Voluntary VOLUNTARY FOR INPATIENT PSYCHIATRIC STABILIZATION. Patient is appropriate in all interactions since arriving at [facility]; Pt has demonstrated appropriate coping and communication skills, has articulated his or her needs and concerns and is fully engaged during staff interactions. Safety plan has been established with patient, and care team, to adhere to patient goals, identify restrictions based on behavioral status, address nutrition, and determine allowed personal belongings, tools for hygiene and personal care. Determine level of activity including ambulation, level of supervision, visitors, and determine privileges based on behaviors and level of engagement by pt. SAFETY PLAN: 1. Will remain on suicide precautions in own clothes at this time. 2. Will remain in room under direct supervision of one-on-one staff at all times provided by CPSO, DONTAE, PLYWOOD PATCHER transportation project manager. 3. May have paper cups, plates, finger foods as well as a cardboard spoon with which to eat meals. 4. Follow [facility] Management of the Admitted Behavioral Health Patient policy. 5. Comfort bath only. 6. No personal belongings. 7. Visitors-No visitors at this time per [facility] Covid policy. 8. Activities: Television when available, coloring books, crayons, and other activities at nursing discretion. 9. Bathroom privileges: Must be accompanied by staff while in the ED. 10. Phone: Permitted to have his cell phone, at the discretion of staff, and to use the phone without limitation as long as phone calls do not cause Asim to become agitated, at which time the phone will be removed. 11. Due to VOLUNTARY status, if patient wishes to leave [facility], staff will contact [facility] Crisis Screener ([phone]) and On-Call Laborer Drying Department ([phone]) as soon as possible. In the event of elopement, notify [facility] Police ([phone]). If deemed appropriate for inpatient psychiatric care, safety plan will be established with patient, and care team, to adhere to patient goals, identify restrictions based on behavioral status, address nutrition, and determine allowed personal belongings, tools for hygiene and personal care. As well plan will determine level of activity including ambulation, level of supervision, visitors, and determine privileges based on level of acuity, behaviors and level of engagement by patient.
[2020-07-17 20:56] LABS: Acetaminophen < 2 ug/mL (10-30)
[2020-07-17 21:06] LABS: ETHANOL BLOOD < 3.0 mg/dL (<3)
[2020-07-17 21:16] LABS: FREE T4 0.92 ng/dL (0.76-1.46)
--- NOTE | 2020-07-17 21:26 | HPE_ITS ---
Date of service: 07/17/20 Time of Service: : Assessment and Plan Assessment and plan (1) Suicidal ideations: Start date: 07/17/20 Status: Acute Assessment and plan: This is a 54-year-old gentleman with depression and recurrent suicidal ideation. He is having increasing suicidal ideation of cutting his large vessel in his throat with a razor blade and has had a dark cloud recently. With his suicidal ideation and plan he has a admitted to voluntary observation for placement with mental health consultation in place. He will be monitored continuously. He is medically stable for placement. He is a full code. (2) Depression: Status: Chronic Assessment and plan: On medical therapy but increasing suicidal ideation requiring observation and placement. Patient does have a terminal disease as a new diagnosis of lung cancer and this may be contributing to his worsening mood. This may be addressed and offered comfort measures as his lung cancer advances. He does continue to smoke tobacco. Qualifiers: Active/Remission status: currently active Depression Type: major depressive disorder Major depression episode severity: severe Major depression recurrence: recurrent Psychotic features: without psychotic features Qualified Code(s): F33.2 - Major depressive disorder, recurrent severe without psychotic features (3) Hypothyroid: Status: Chronic Assessment and plan: Slightly elevated TSH with follow-up on thyroid replacement and monitoring for compliance for adjustment would be necessary. This can be done as an outpatient. Qualifiers: Hypothyroidism type: acquired Qualified Code(s): E03.9 - Hypothyroidism, unspecified (4) Tobacco abuse: Status: Chronic Assessment and plan: Patient defers NicoDerm patch and continues to smoke despite his diagnosis of lung cancer. Prognosis poor for change. History of Present Illness History of Present Illness Chief Complaint: Suicidal ideation with plan. Narrative: Is a 54-year-old male patient who has chronic depression with suicidal ideation with multiple visits to the ED recently with increasing suicidal ideation. He states that there is a dark cloud hanging over him for the last couple of days and he did have a plan of using a razor blade to slit his throat. He was seen by mental health for evaluation and they did advise observation with continuous monitoring while awaiting voluntary placement for i npatient psychiatric care versus a care bed for increased services. He was medically cleared by the ED physician with no new medical problems. His TSH was slightly elevated and is on Synthroid chronically with question of compliance. Free T4 is pending and this does not need to be adjusted acutely. He is a smoker with a recent diagnosis of lung cancer for which he does not wish to be treated. He stated that his lung cancer was picked up by CT scan screening and [facility] had offered further evaluation and treatment which he has deferred. Review of Systems Narrative: 13 point review of systems otherwise unrevealing or stable with patient not losing weight by history and not anorexic. He denies any hemoptysis or increasing cough. He deferred nicotine patch during this hospitalization. [facility] Medical History Anxiety Bipolar disorder COPD (chronic obstructive pulmonary disease) GERD (gastroesophageal reflux disease) Hypercholesterolemia Hypothyroid Traumatic pneumothorax 2016, chest tube x2 Surgical History History of ankle surgery S/P thoracostomy tube placement Social History Smoking/Tobacco Use Status: Current every day Tobacco Type: cigarettes Smoking risk assessment performed?: Yes Alcohol Intake: current Drug use: Daily Substance use type: marijuana Current gender identity: male Do you feel safe at home: Yes Do you feel safe in your relationship?: Yes Meds Home Medications and Allergies Allergies Allergy/AdvReac Type Severity Reaction Status Date / Time Sulfa (Sulfonamide Allergy Severe Swelling/Ed Unverified 07/01/20 08:49 Antibiotics) jostin Home Medications Medication Instructions Recorded Confirmed Type omeprazole 20 mg PO QAM 10/16/13 07/10/20 History magnesium oxide 400 mg PO QAM 10/20/19 07/10/20 History levothyroxine 75 mcg PO DAILY 12/19/19 07/10/20 History melatonin 6 mg PO HS 12/19/19 07/10/20 History olanzapine 5 mg PO DAILY 12/19/19 07/10/20 History pravastatin 20 mg PO HS 12/19/19 07/10/20 History trazodone 50 mg PO HS 12/19/19 07/10/20 History hydroxyzine pamoate [Vistaril] 25 mg PO BID 04/05/20 07/10/20 History sennosides [senna] 8.6 mg PO BID PRN 04/05/20 07/10/20 History sertraline 100 mg PO DAILY 04/05/20 07/10/20 History Exam Narrative Exam Narrative: General: Patient has a flattened affect with fair eye contact, d epressed mood and monotonous low voice. He appears older than stated age. He is alert and oriented x3. He is in no acute distress. HEENT: Normocephalic with coarsened facial features, eyes with pupils equal and reactive to light symmetrically, extraocular movement intact and sclera anicteric. Oropharynx with moist pink mucosa and poor dentition. External ears and nose normal. Neck: Supple without JVD. Lungs: Bronchovesicular breath sounds diffusely with no focalizing rales or rhonchi. Fair aeration. No increased expiratory phase or expiratory wheeze. Back: Stooped posture without CVA tenderness. Heart: Regular rate and rhythm with no murmur gallop appreciated. Abdomen: Normal contour, soft and nontender to palpation with no palpable hepatosplenomegaly. Bowel sounds positive all quadrants. Genitalia/rectal: Exam deferred. Extremities: Without clubbing, cyanosis or pitting edema. Peripheral pulses intact. All joints have full range of motion. Skin: Normal color, warm and dry with no rashes noted. Neuro: Cranial nerves II through XII grossly intact, no focalizing motor deficit s. Psych: Depressed mood with flattened affect as under general description. No abnormal thought processes presently with patient declined any auditory or visual hallucinations. Remote and recent memory intact. Results Labs Result diagrams: 07/17/20 20:10 07/17/20 20:10 Labs: Laboratory Results - last 24 hr 07/17/20 07/17/20 07/17/20 20:10 20:10 20:10 WBC RBC Hgb Hct MCV MCH MCHC RDW Plt Count MPV Immature Gran % Neutrophils % Lymphocytes % Monocytes % Eosinophils % Basophils % Nucleated RBC % Absolute Neutrophils Absolute Lymphocytes Absolute Monocytes Absolute Eosinophils Absolute Basophils Sodium 140 Potassium 3.8 Chloride 103 Carbon Dioxide 27.3 Anion Gap 9.7 BUN 17 Creatinine 0.9 Estimated GFR/1.73 m2 >= 60.00 Glucose 121 H Calcium 9.2 Total Bilirubin 0.2 AST 22 ALT 36 Alkaline Phosphatase 103 Ammonia 18 Total Protein 7.6 Albumin 3.5 TSH 5.24 H Free T4 0.92 Salicylates < 2.8 Urine Opiates Screen Urine Methadone Screen Acetaminophen < 2 Ur Barbiturates Screen Ur Tricyclics Screen Ur Amphetamines Screen U Benzodiazepines Scrn Urine Cocaine Screen Ur THC Screen Ethyl Alcohol < 3.0 COVID-19 Source 07/17/20 07/17/20 07/17/20 20:10 20:10 20:50 WBC 10.30 RBC 5.20 Hgb 14.3 Hct 43.6 MCV 83.8 MCH 27.5 MCHC 32.8 RDW 13.4 Plt Count 247 MPV 10.1 Immature Gran % 0.2 Neutrophils % 63.8 Lymphocytes % 27.2 Monocytes % 6.5 Eosinophils % 1.9 Basophils % 0.4 Nucleated RBC % 0 Absolute Neutrophils 6.57 Absolute Lymphocytes 2.80 Absolute Monocytes 0.67 Absolute Eosinophils 0.20 Absolute Basophils 0.04 Sodium Potassium Chloride Carbon Dioxide Anion Gap BUN Creatinine Estimated GFR/1.73 m2 Glucose Calcium Total Bilirubin AST ALT Alkaline Phosphatase Ammonia Total Protein Albumin TSH Free T4 Salicylates Urine Opiates Screen Negative Urine Methadone Screen Negative Acetaminophen Ur Barbiturates Screen Negative Ur Tricyclics Screen Negative Ur Amphetamines Screen Negative U Benzodiazepines Scrn Negative Urine Cocaine Screen Negative Ur THC Screen Positive A Ethyl Alcohol COVID-19 Source Nasopharyx Last Vital Signs Temp 36.5 C 07/17/20 20:00 Pulse 95 H 07/17/20 20:00 Resp 16 07/17/20 20:00 BP 124/96 H 07/17/20 20:00 Pulse Ox 99 07/17/20 20:00 COVID-19 Screening Have you, or household traveled for leisure in last 14 days?: No Had IN PERSON contact w/suspected or confirmed C-19 person: No
[2020-07-17 21:48] LABS: COVID-19 PCR Negative (Negative); Influenza A PCR Negative (Negative); Influenza B PCR Negative (Negative); RSV PCR Negative (Negative)
[2020-07-17] MEDS: hydrOXYzine PAMOATE 25 MG CAP PO (23:10)
[2020-07-17] MEDS: Melatonin 3 MG TAB 6 MG PO (23:11)
[2020-07-17] MEDS: Senna TAB 1 TAB PO (23:12)
[2020-07-17] MEDS: traZODone 50 MG TAB PO (23:12)
[2020-07-17] MEDS: Pravastatin 20 MG TAB PO (23:12)
[2020-07-17 23:15] VITALS: BP 127/84; PULSE 74; RESP 16; TEMP 36.7; O2SAT 96
[2020-07-18] MEDS: Levothyroxine 75 MCG TAB PO (06:24)
[2020-07-18] MEDS: hydrOXYzine PAMOATE 25 MG CAP PO ×2 (08:04→20:55)
[2020-07-18] MEDS: Omeprazole 20 MG CAPCR PO (08:04)
[2020-07-18] MEDS: OLANZapine 5 MG TAB PO (08:04)
[2020-07-18] MEDS: Magnesium Oxide 400 MG TAB PO (08:04)
[2020-07-18] MEDS: Sertraline 50 MG TAB 100 MG PO (08:05)
[2020-07-18 08:08] VITALS: BP 133/82; PULSE 91; RESP 15; TEMP 36.3; O2SAT 100
--- NOTE | 2020-07-18 11:51 | PDOC.MHCN_ITS ---
Date of service: 07/18/20 Time of Service: 11:52 Mental Health Crisis Note Presenting Issue How did you arrive at the ED and why did you come: Patient arrived at Ed on 07/17 via VSP due to suicidal ideation . he is waiting on med surg for dispositon hopefull to a CARE BED Precipitating Factors Today, 08/15, Asim is asessed via ZOOM. He has spent the night in the transiton room at [facility]. He is alert and oriented. Disposition BEHAVIOR: He is calm and cooperative. EYE CONTACT: Keeps his eye focused and is visible on the screen. MOOD: His mood is depressed AFFECT: He has some range of affect especially when describing the people who live below him. APPETITE: He is not eating. SLEEP(trouble falling/staying asleep: Slept well. Plan He is unable to plan for safety to go home. He is havinng intense suicidal ideation and says he will slit his throat with a razor blade. His recent Cancer diagnosis has put him at great risk for suicide as he does not want treatment and does not want pain. Consult with [employer] and she is going to have [facility] meet with him. A referral to [facility] Care Bed will be made for him and that will be reviewed for admittance on 07/18/2020 by the network control operators supervisor Lilliam Mason Signature Clinician's Name/Title: Simi Christopher, [facility] Emergency Services Clinician
--- NOTE | 2020-07-18 12:18 | PGE_ITS ---
Date of Service Date of service: 07/18/20 Time of Service: 12:19 Assessment and Plan Assessment and plan (1) Suicidal ideations: Status: Acute Assessment and plan: Continue to monitor in voluntary status. Mental health following. Continue outpatient psychiatric medications. (2) Depression: Status: Chronic Assessment and plan: as above Qualifiers: Depression Type: major depressive disorder Major depression recurrence: recurrent Active/Remission status: currently active Major depression episode severity: severe Psychotic features: without psychotic features Qualified Code(s): F33.2 - Major depressive disorder, recurrent severe without psychotic features (3) Abnormal chest CT: Status: Acute Assessment and plan: CT in the end of May of this year with stable spiculated lesions. The patient has not had these biopsied yet. I am not clear whether his blowing off of the workup is a result of his depression/suicidal ideation or if this is truly the goal of his care. Consult palliative care and obtain PCP records. (4) Hypothyroid: Status: Chronic Assessment and plan: Slightly elevated TSH. This has not been at goal for a long time. I question compliance with medical regimen. For this reason, I do not think that increasing the dose is warranted. If the patient's d/c plan is to a care bed, then he ideally be compliant with medications there - TSH rechecked at that point would be helpful. Qualifiers: Hypothyroidism type: acquired Qualified Code(s): E03.9 - Hypothyroidism, unspecified (5) Tobacco abuse: Status: Chronic Assessment and plan: Patient is not interested in nicotine replacement (6) GERD (gastroesophageal reflux disease): Status: Chronic Assessment and plan: Continue home PPI prn tums/mylanta (7) DVT prophylaxis: Status: Acute Assessment and plan: Start SC heparin tomorrow should the patient require staying in the hospital longer than 48 hrs. (8) Discharge planning issues: Status: Acute Assessment and plan: Consult palliative care to establish goals of care. At this point, Paulino is considered voluntary psychiatric admission. Mental health is following. One of the plans being considered is a discharge to a care bed tomorrow. Subjective Subjective Interval history since last seen: Ms Hampton states he is having a heartburn and admits to not feeling well emotionally. He denies abdominal pain, nausea, diarrhea/constipation. Denies dizziness, chest pain, shortness of breath. He is sure he has lung cancer, but he has not had a biopsy yet. He states he was supposed to go to [facility] for the workup, but has blown it off so far. Exam Narrative Exam Narrative: General: Pleasant cooperative middle-aged male, asleep when I arrive to examine him, easily arousable HEENT: EOMI, MMM Heart: RRR, no m/r/g Lungs: CTAB Abdomen: soft, nontender, nondistended Extremities: no edema BLEs Objective Last Vital Signs Temp 36.3 C L 07/18/20 08:08 Pulse 91 H 07/18/20 08:08 Resp 15 07/18/20 08:08 BP 133/82 07/18/20 08:08 Pulse Ox 100 07/18/20 08:08 Laboratory Results - last 24 hr 07/17/20 07/17/20 07/17/20 20:10 20:10 20:10 WBC RBC Hgb Hct MCV MCH MCHC RDW Plt Count MPV Immature Gran % Neutrophils % Lymphocytes % Monocytes % Eosinophils % Basophils % Nucleated RBC % Absolute Neutrophils Absolute Lymphocytes Absolute Monocytes Absolute Eosinophils Absolute Basophils Sodium 140 Potassium 3.8 Chloride 103 Carbon Dioxide 27.3 Anion Gap 9.7 BUN 17 Creatinine 0.9 Estimated GFR/1.73 m2 >= 60.00 Glucose 121 H Calcium 9.2 Total Bilirubin 0.2 AST 22 ALT 36 Alkaline Phosphatase 103 Ammonia 18 Total Protein 7.6 Albumin 3.5 TSH 5.24 H Free T4 0.92 Salicylates < 2.8 Urine Opiates Screen Urine Methadone Screen Acetaminophen < 2 Ur Barbiturates Screen Ur Tricyclics Screen Ur Amphetamines Screen U Benzodiazepines Scrn Urine Cocaine Screen Ur THC Screen Ethyl Alcohol < 3.0 COVID-19 Source SARS-CoV-2 (PCR) Influenza Type A (PCR) Influenza Type B (PCR) RSV (PCR) 07/17/20 07/17/20 07/17/20 20:10 20:10 20:50 WBC 10.30 RBC 5.20 Hgb 14.3 Hct 43.6 MCV 83.8 MCH 27.5 MCHC 32.8 RDW 13.4 Plt Count 247 MPV 10.1 Immature Gran % 0.2 Neutrophils % 63.8 Lymphocytes % 27.2 Monocytes % 6.5 Eosinophils % 1.9 Basophils % 0.4 Nucleated RBC % 0 Absolute Neutrophils 6.57 Absolute Lymphocytes 2.80 Absolute Monocytes 0.67 Absolute Eosinophils 0.20 Absolute Basophils 0.04 Sodium Potassium Chloride Carbon Dioxide Anion Gap BUN Creatinine Estimated GFR/1.73 m2 Glucose Calcium Total Bilirubin AST ALT Alkaline Phosphatase Ammonia Total Protein Albumin TSH Free T4 Salicylates Urine Opiates Screen Negative Urine Methadone Screen Negative Acetaminophen Ur Barbiturates Screen Negative Ur Tricyclics Screen Negative Ur Amphetamines Screen Negative U Benzodiazepines Scrn Negative Urine Cocaine Screen Negative Ur THC Screen Positive A Ethyl Alcohol COVID-19 Source Nasopharyx SARS-CoV-2 (PCR) Negative Influenza Type A (PCR) Negative Influenza Type B (PCR) Negative RSV (PCR) Negative
--- NOTE | 2020-07-18 17:27 | CMPROGNOTE_ITS ---
- If Service Date Differs Date of service: 07/18/20 Time of Service: 17:27 Care Management Progress Note S/O: Asim was lying in bed when CM visited with him, but he quickly sat up in bed. CM facilitated a zoom meeting with KADEN Belcher. He reported that he is feeling depressed and suicidal, and does not feel safe to return home. He is agreeable to going to the care bed vs inpatient psychiatric placement. Asim reported that he does not want to pursue treatment for his suspected lung cance r, and has 'blown off' his follow up appointments at [facility]. He stated that he wants to let the cancer 'take him'. CM discussed Palliative care with Asim, stating that he can discuss his goals of care and it may help him understand the disease process. A Palliative care consultation was sent, and he will hopefully be able to be seen during this admission, as he may not follow up out patient. CM will continue to follow. A: Asim is a 54 year old male admitted to [facility] on 07/17/20 with SI, Depression. P: Asim remains under suicide precautions at [facility]. TABLET MAKING MACHINE OPERATOR HELPER is sending a referral to the care bed, where he will have close monitoring and med management. He is voluntary, and agreeable to going to the care bed. He will transport via [employer] vs TABLET MAKING MACHINE OPERATOR HELPER staff. CM will continue to follow.
--- NOTE | 2020-07-18 17:35 | CMSP_ITS ---
- If Service Date Differs Date of service: 07/18/20 Time of Service: 17:35 Care Management Safety Plan Status: Voluntary VOLUNTARY FOR INPATIENT PSYCHIATRIC STABILIZATION. Patient is appropriate in all interactions since arriving at [facility]; Pt has demonstrated appropriate coping and communication skills, has articulated his or her needs and concerns and is fully engaged during staff interactions. Safety plan has been established with patient, and care team, to adhere to patient goals, identify restrictions based on behavioral status, address nutrition, and determine allowed personal belongings, tools for hygiene and personal care. Determine level of activity including ambulation, level of supervision, visitors, and determine privileges based on behaviors and level of engagement by pt. SAFETY PLAN: 1. Will remain on suicide precautions in paper clothes. He may change into his own clothes, at the discretion of staff. 2. Will remain in room under direct supervision of one-on-one staff at all times provided by [employer], [employer]TAE, BLOW PIT HELPER museum curator. 3. May have paper cups, plates, finger foods as well as a cardboard spoon with which to eat meals. 4. Follow [facility] Management of the Admitted Behavioral Health Patient policy. 5. Shower permitted, at discretion of staff. 6. Asim permitted to have his glasses and phone, at the discretion of staff. 7. Visitors-No visitors at this time per [facility] Covid policy. 8. Activities: Television when available, coloring books, crayons, and other activities at nursing discretion. 9. Bathroom privileges: no limitations in room. 10. Phone: Permitted to have his cell phone, at the discretion of staff, and to use the phone without limitation as long as phone calls do not cause Asim to become agitated, at which time the phone will be removed. 11. Due to VOLUNTARY status, if patient wishes to leave [facility], staff will contact [facility] Crisis Screener ([phone]) and On-Call Grants Director ([phone]) as soon as possible. In the event of elopement, notify [facility] Police ([phone]). If deemed appropriate for inpatient psychiatric care, safety plan will be established with patient, and care team, to adhere to patient goals, identify restrictions based on behavioral status, address nutrition, and determine allowed personal belongings, tools for hygiene and personal care. As well plan will determine level of activity including ambulation, level of supervision, visitors, and determine privileges based on level of acuity, behaviors and level of engagement by patient.
[2020-07-18] MEDS: Acetaminophen 325 MG TAB 650 MG PO (20:55)
[2020-07-18] MEDS: Pravastatin 20 MG TAB PO (20:56)
[2020-07-18] MEDS: traZODone 50 MG TAB PO (20:56)
[2020-07-18] MEDS: Melatonin 3 MG TAB 6 MG PO (20:56)
[2020-07-19] MEDS: Acetaminophen 325 MG TAB 650 MG PO (03:14)
[2020-07-19] MEDS: Levothyroxine 88 MCG TAB PO (05:45)
[2020-07-19 07:27] VITALS: BP 114/81; PULSE 78; RESP 17; TEMP 36.5; O2SAT 96
[2020-07-19] MEDS: Magnesium Oxide 400 MG TAB PO (08:46)
[2020-07-19] MEDS: Sertraline 50 MG TAB 100 MG PO (08:46)
[2020-07-19] MEDS: Omeprazole 20 MG CAPCR PO (08:46)
[2020-07-19] MEDS: OLANZapine 5 MG TAB PO (08:46)
[2020-07-19] MEDS: hydrOXYzine PAMOATE 25 MG CAP PO (08:46)
--- NOTE | 2020-07-19 11:29 | DSE_ITS ---
Date of service: 07/19/20 Time of Service: 11:29 DS: Diagnosis Discharge Diagnosis (1) Suicidal ideations: Start date: 07/19/20 Start time: 11:29 Status: Acute Asessment and Plan: Being discharged to carebed at [facility] for SI. Mental Health will follow him (2) Depression: Start date: 07/19/20 Start time: 11:30 Status: Chronic Asessment and Plan: as above (3) Abnormal chest CT: Start date: 07/19/20 Start time: 11:30 Status: Acute Asessment and Plan: CT in the end of May of this year with stable spiculated lesions. The patient has not had these biopsied yet. not clear whether his blowing off of the workup is a result of his depression/suicidal ideation or if this is truly the goal of his care. It is a good idea to have palliative follow up with him in the community to support him in his decision making (4) Hypothyroid: Start date: 07/19/20 Start time: 11:31 Status: Chronic Asessment and Plan: Slightly elevated TSH. This has not been at goal for a long time. Question of compliance with medical regimen. For this reason, increasing the dose would not be warranted . If the patient's d/c plan is to a care bed, then he ideally be compliant with medications there - TSH rechecked at that point would be helpful. (5) Tobacco abuse: Start date: 07/19/20 Start time: 11:32 Status: Chronic Asessment and Plan: He was not interested in nicotine replacement (6) GERD (gastroesophageal reflux disease): Start date: 07/19/20 Start time: 11:33 Status: Chronic Asessment and Plan: continue PPI Discharge Plan Disposition Patient Disposition: OTHER Condition: Stable Discharge Details Reason For Visit: SUICIDAL IDEATION, DEPRESSION Admit Date/Time: 07/17/20 21:16 Admit Provider: Saravanan Ricardo Attending Provider: Saravanan Ricardo Primary Care Provider: Fariba Forde Hospital Course Hospital Course: 54 y.o male well known to the hospital group reports to [facility] ED with c/o suicidal ideation and depression. He felt unsafe at home secondary to his depression. He stated to ED provider he wanted to slit his throat. He was medically cleared by ED and asked to be admitted until care bed open up. He has been under voluntary service followed by with a 1:1 observer. He was found on previous CT to have lesions, likely Lung ca but has not had a work up or biopsy for this; therefore we will have palliative care see him as an outpatient to help him understand goals of care and what he wants. He has not had any b ehavioral issues. He is being discharged to [facility] care bed for further mental health treatment. He denies CP, SOB, N/V/D Home Meds and New Rx's Prescriptions: Continued omeprazole 20 MG capsule,delayed release(DR/EC) 20 mg PO QAM RF: 0 magnesium oxide 400 mg (241.3 mg magnesium) tablet 400 mg PO QAM RF: 0 sennosides [senna] 8.6 mg Tablet 8.6 mg PO BID PRNRF: 0 sertraline 100 mg Tablet 100 mg PO DAILY RF: 0 hydroxyzine pamoate [Vistaril] 25 mg Capsule 25 mg PO BID RF: 0 trazodone 50 mg tablet 50 mg PO HS RF: 0 olanzapine 5 mg tablet 5 mg PO DAILY RF: 0 melatonin 3 mg tablet 6 mg PO HS RF: 0 pravastatin 20 mg tablet 20 mg PO HS RF: 0 levothyroxine 88 mcg Tablet 88 mcg PO DAILY RF: 0 prazosin 2 mg Capsule 2 mg PO QHS RF: 0 Discharge Instructions Instructions: Depression (DC), Suicide Prevention (DC) Additional Instructions: Discharge to [facility] carebed Stand Alone Forms: Nursing Discharge Form Activity:: Activity as Tolerated Equipment/Supplies:: No Equipment Needed Diet:: As Tolerated Discharge Orders Discharge Orders: Discharge Order (Routine); Ordered 07/19/20 Ordered By: Payal Landry DS: Summary Time Spent with Patient providing and/or coordinating discharge services: Greater than 30 minutes ( approx discharge time 35 mins) Status at Discharge Functional status at discharge: independent ambulation Overall status at discharge: patient is not back to baseline Mental Status: other Speech and Movement: other (depressed, suicidal) Mood: other Affect: other Exam Narrative Exam Narrative: General: Pleasant cooperative middle-aged male, sitting up on side of bed, follows commands HEENT: EOMI, MMM Heart: RRR, no m/r/g Lungs: CTAB Abdomen: soft, nontender, nondistended Extremities: no edema BLEs Psych Mental Status: other Speech and Movement: other (depressed, suicidal) Mood: other Affect: other DS: Data Vitals/I&O Vitals and I&O: Vital Signs Temperature 36.5 C 07/19/20 07:27 Temperature Source Tympanic 07/19/20 07:27 Pulse 78 07/19/20 07:27 Pulse Rhythm Regular 07/18/20 07:30 Respiratory Rate 17 07/19/20 07:27 Respiratory Effort Non-Labored 07/19/20 04:13 Respiratory Depth Normal 07/19/20 04:13 Respiratory Pattern Normal 07/19/20 04:13 Blood Pressure 114/81 07/19/20 07:27 Pulse Oximetry 96 07/19/20 07:27 Oxygen Delivery Method Room Air 07/19/20 07:27 Oxygen Flow Rate 0 07/19/20 07:27 Pain Level 0 07/19/20 07:27 Comment 07/17/20 23:15 Intake & Output 07/18/20 07/18/20 07/19/20 11:59 23:59 11:59 Intake Total 980 / 980 100 / 100 Balance 980 / 980 100 / 100 Intake: Oral 980 / 980 100 / 100 Other: Voiding Methods Toilet [facility] Medical History Anxiety Bipolar disorder COPD (chronic obstructive pulmonary disease) GERD (gastroesophageal reflux disease) Hypercholesterolemia Hypothyroid Traumatic pneumothorax 2016, chest tube x2 Surgical History History of ankle surgery S/P thoracostomy tube placement Social History Smoking/Tobacco Use Status: Current every day Tobacco Type: cigarettes Smoking risk assessment performed?: Yes Alcohol Intake: current Drug use: Daily Substance use type: marijuana Current gender identity: male Do you feel safe at home: Yes Do you feel safe in your relationship?: Yes
--- NOTE | 2020-07-19 16:55 | CMDISCH_ITS ---
- If Service Date Differs Date of service: 07/19/20 Time of Service: 16:55 LACE Index Scoring Tool - Questions: Length of Stay (in days): 3 Acuity (Admit via E.D.?): Yes Comorbidities: Chronic Pulmonary Disease, Any Tumor E.D. Visits: 17 - Answers: Total Score: 15 Risk of Readmission: High Risk Care Management Discharge Reason for Hospitalization: SI, Depression Discharge Plan: Asim was discharged today, as he no longer met acute status for inpatient psychiatric stabilization. [facility] has coordinated admission at the care bed. CM faciliated a zoom with Asim and Denise, [facility], to discuss expectations of the care bed. He was transported via [facility]. He is happy to be going to the care bed. Patient/Family Education Needs: Review discharge instructions, discussion of self care needs. Services Needed at Discharge: Transportation ([facility]) - MH Services (Omit if N/A) Current MH Services: [facility]
--- NOTE | 2020-07-28 20:23 | CMSP_ITS ---
- If Service Date Differs Date of service: 07/28/20 Time of Service: 20:24 Care Management Safety Plan Status: Involuntary Chief Complaint: Asim is a 54 year old male who is well known to [facility]. He receives services through [facility] WARD ASSISTANT program. This is Asim's 3rd visit to the emergency department for suicidal ideation this month after 6 visits in June. He has been hospitalized many times in the past and at times leaves against medical advice. Asim presented today with SI. He has recently been diagnosed with lung cancer and has refused a workup or treatment to date. Asim was at [facility] earlier today but eloped. He returned to the ED and is now on Involuntary status awaiting a second certification which will likely occur tomorrow. INVOLUNTARY FOR INPATIENT PSYCHIATRIC STABILIZATION. Safety plan has been established to meet the needs of the patient, and consideration of the care team, to adhere to patient goals, identify restrictions based on behavioral status, address nutrition, and determine allowed personal belongings, tools for hygiene and personal care. Determine level of activity including ambulation, level of supervision, visitors, and determine privileges based on behaviors and level of engagement by pt. SAFETY PLAN: 1. May remain in own clothes after wanding by freezer person 2. Will remain in room under direct supervision of one-on-one staff at all times provided by CPSO; DONTAE, BELT BUILDER HELPER sewing department supervisor. 3. May have paper cups, plates, finger foods as well as a cardboard spoon 4. Follow [facility] Management of the Admitted Behavioral Health Patient policy. 5. Comfort bath system only. 6. No personal belongings except personal phone, at nursing discretion. 7. Visitors: none at this time 8. Activities: may watch tv when available and movies under direct supervision at nursing discretion. Soft items from activity cart at nursing discretion. 9. Bathroom privileges with supervision 10. Phone: may keep and use personal phone at nursing discretion. 11. Due to INVOLUNTARY status, patient is being held at [facility] by the Department of Mental Health (DM) until 2nd certification by [facility] Psychiatrist can be performed (within 24 hours). Staff will provide de-escalation support (CPI) as needed. If patient wishes to leave [facility], staff will contact [facility] Crisis Screener ([phone]) and On-Call Russian Language Instructor ([phone]) as soon as possible. In the event of elopement, notify [facility] Police ([phone]). Patient is currently involuntarily at [facility]. [facility] Frontline Engine Lathe Set Up Operator Tool will continue seeking placement. Please contact the Pill Machine Operator Russian Language Instructor ([phone]) for any needed changes to Safety Plan. Safety plan has been provided to interdepartmental care team. Patient will be transported by freezer person at time of discharge.
== END 2020-07-19 13:04 | disposition other institution (70) ==
LOC: ER 21:37 → MS 07-19 09:27
PROVIDERS: Admitting Provider Family Medicine; Emergency Provider Student in an Organized Health Care Education/Training Program; PCP Nurse Practitioner; Visit Provider Family Medicine
DX: F33.2 Major depressive disorder, recurrent severe without psychotic features (principal); R45.851 Suicidal ideations; E03.9 Hypothyroidism, unspecified; F17.210 Nicotine dependence, cigarettes, uncomplicated; K21.9 Gastro-esophageal reflux disease without esophagitis; Z20.822 Contact with and (suspected) exposure to COVID-19; J44.9 Chronic obstructive pulmonary disease, unspecified; F41.9 Anxiety disorder, unspecified; E78.00 Pure hypercholesterolemia, unspecified; R91.1 Solitary pulmonary nodule
CPT/HCPCS: 36415; 80053; 80307; 99217; 99220; 99225; 99285; 80320; 80329; 82140; 84439; 84443; 85025; 99283; G0378

== ENCOUNTER 2020-07-20 18:52 | Emergency (ER) | payer MEDICAID, SELFPAY ==
[2020-07-20 18:58] VITALS: BP 131/93; PULSE 99; RESP 16; TEMP 36; O2SAT 98
[2020-07-20 19:04] VITALS: RESP 16
--- NOTE | 2020-07-20 19:12 | W.ED.GENAD ---
Discharge Plan Disposition Patient Disposition: HOME Condition: Stable Discharge Details Clinical Impression: Hemoptysis Primary Care Provider: Fariba Forde ED Provider: Kandace Gustafson Home Meds and New Rx's Prescriptions: Continued omeprazole 20 MG capsule,delayed release(DR/EC) 20 mg PO QAM RF: 0 magnesium oxide 400 mg (241.3 mg magnesium) tablet 400 mg PO QAM RF: 0 sennosides [senna] 8.6 mg Tablet 8.6 mg PO BID PRNRF: 0 sertraline 100 mg Tablet 100 mg PO DAILY RF: 0 hydroxyzine pamoate [Vistaril] 25 mg Capsule 25 mg PO BID RF: 0 trazodone 50 mg tablet 50 mg PO HS RF: 0 olanzapine 5 mg tablet 5 mg PO DAILY RF: 0 melatonin 3 mg tablet 6 mg PO HS RF: 0 pravastatin 20 mg tablet 20 mg PO HS RF: 0 levothyroxine 88 mcg Tablet 88 mcg PO DAILY RF: 0 prazosin 2 mg Capsule 2 mg PO QHS RF: 0 Discharge Instructions Instructions: Hemoptysis (ED) Additional Instructions: Your imaging does not show anything new. Please keep your upcoming appointment with [facility] pulmonology. Stop smoking! Please discuss smoking cessation furrther with your primary care. If you develop fever/chills, increased shortness of breath, chest pain or further bleeding please seek care urgently once again. Referrals: Fariba Forde [Primary Care Provider] - Discharge Data Discharge Date/Time-TO BE ENTERED AT DEPARTURE: 07/20/20 21:28 Medical Decision Making Patient presents today with chief complaint of hemoptysis. He is currently residing at the [facility] bed and states that he is doing quite well with this. Reports that he is smoking cigarette outside today which induced moment of coughing. States that he had streaks of blood in the sputum that he brought up. She denies any chest pain. States that he has had increased shortness of breath. Was recently diagnosed with spiculated lesion on CT scan and there was concern for potential lung cancer. Secondary to the patient's mental health, he did not initially receive treatment for this. However, he does have an appointment in 2days [facility] for further evaluation of the suspicious lesion. He denies any recent issue. No fevers or chills. On exam, he appears no acute distress. He is notably tachycardic with a pulse rate of 99, O2 98% on room air. Lungs are clear in all saldaña. Normal cardiac exam. No lower extremity edema or calf tenderness. Patient I discussed differential diagnosis. This could be associated with irritation from the coughing, could also be associated with possible cancer lesions. Also my differential is pulmonary embolism particularly as he has had increased shortness of breath as well possible cancerous lesion. Plan for CT to evaluate for potential PE. Discussed this plan with the patient who is in agreement. Labs reviewed. Patient does have elevated white count of 13.6. Patient has had leukocytosis multiple times historically. He is not endorsing cough, fevers or other evidence of acute illness, and findings unlikely related to infectious source of his current presentation. Coags are normal. CMP significant for BUN elevated at 23. Otherwise, no significant abnormality. FINDINGS: Tracheobronchial tree: Patent where visualized. Pulmonary parenchyma: There is a spiculated density in the superior segment of the right lower lobe measuring 4 x 2.4 x 1.7 cm. This appears slightly increased in size compared to the prior examination. There is also spiculated density in the left upper lobe associated with a air cyst. This measures 2.3 x 2.8 x 2.9 cm and appears slightly increased in size compared to the prior examination centrilobular and paraseptal emphysematous changes are present. Pulmonary Arteries: No evidence of filling defect to suggest pulmonary emboli. Mediastinum and Kimberly: No dominant adenopathy or fluid collection. Visualized thyroid gland: Unremarkable. Pleura: No effusion or pneumothorax. Heart: The heart is not dilated. No coronary artery calcifications are seen. No pericardial effusion. No evidence of right heart strain. Aorta: Thoracic aorta non-dilated. No evidence of dissection. Upper abdomen: Unremarkable. Soft tissues: Unremarkable. Bones: Normal. IMPRESSION: 1. No evidence of pulmonary embolism, thoracic aortic dissection or aneurysm. 2. Spiculated densities in the superior segment of the right lower lobe in the left upper lobe which appears slightly increased compared to the examination from 06/17/2020. While infectious or inflammatory process should be considered a neoplasm cannot be excluded. 3. Marked centrilobular and paraseptal emphysema. Discussed these findings with the patient. He has not had any persistent hemoptysis since being here. We discussed that this could be from a spiculated lesion versus irritation from smoking and coughing. Patient is not anemic, he does not demonstrate any evidence of hemodynamic instability. I advised that he keep his upcoming appointment with pulmonology on and discuss this further at that time. I did encourage smoking cessation. Return precautions were discussed. Of note, patient's mental status is much improved with him currently residing at the care bed. All of his questions and concerns were addressed and he is in agreement with this plan. HPI General Mode of arrival: ambulatory. Date/Time Provider Initiated Documentation: 07/20/20 19:12. Limitations to Documentation: no limitations. Information obtained by: patient and RN notes reviewed. History of Present Illness 54 year old M presents to the emergency department with the chief complaint of hemoptysis, described as mild, with intensity rated at 1 (denies any pain). Quality is described as other (no pain ), and is localized to the chest. Patient started experiencing this minute(s) and it has been now resolved. No relieving factors improve symptom(s), No exacerbating factors reported . Patient notes shortness of breath; denies chest pain, diaphoresis, fever/chills, nausea/vomiting, rash and syncope. Patient did receive the following treatments prior to arrival, none Related Data Home Medications Medication Instructions Recorded Confirmed omeprazole 20 mg PO QAM 10/16/13 07/18/20 magnesium oxide 400 mg PO QAM 10/20/19 07/18/20 melatonin 6 mg PO HS 12/19/19 07/18/20 olanzapine 5 mg PO DAILY 12/19/19 07/18/20 pravastatin 20 mg PO HS 12/19/19 07/18/20 trazodone 50 mg PO HS 12/19/19 07/18/20 hydroxyzine pamoate [Vistaril] 25 mg PO BID 04/05/20 07/18/20 sennosides [senna] 8.6 mg PO BID PRN 04/05/20 07/18/20 sertraline 100 mg PO DAILY 04/05/20 07/18/20 levothyroxine 88 mcg PO DAILY 07/18/20 07/18/20 prazosin 2 mg PO QHS 07/18/20 07/18/20 Allergies Allergy/AdvReac Type Severity Reaction Status Date / Time Sulfa (Sulfonamide Allergy Severe Swelling/Ed Unverified 07/01/20 08:49 Antibiotics) jostin General Stated Complaint: GenMedical ABA: 4 Review of Systems Constitutional Constitutional: Reports as per HPI, Denies chills, Denies fever(s), Denies headache(s), Denies lethargy and Denies poor appetite Eyes Eyes: Denies change in vision ENT Ears, Nose, Mouth, and Throat: Denies dizziness and Denies headache(s) Cardiovascular Cardiovascular: Reports as per HPI, Denies chest pain, Denies chest pain at rest, Denies edema, Denies leg edema, Denies lightheadedness, Denies radiating jaw, neck or arm pain, Reports dyspnea and Reports dyspnea on exertion Respiratory Respiratory: Reports as per HPI, Denies chest congestion, Denies cough, Reports hemoptysis, Denies pain on inspiration, Denies pain with cough, Reports dyspnea, Reports dyspnea on exertion, Denies stridor and Denies wheezing Gastrointestinal Gastrointestinal: Reports as per HPI, Denies abdominal pain, Denies diarrhea, Denies nausea and Denies vomiting Genitourinary Genitourinary: Denies system reviewed and no additional complaints, except as documented (denies change in urinary habits) Musculoskeletal Musculoskeletal: Reports as per HPI and Denies back pain Integumentary/Breasts Skin/Breast: Reports as per HPI and Denies rash Neurologic Neurologic: Reports as per HPI, Denies dizziness and Denies headache(s) Allergic/Immunologic Allergic/Immunologic: Denies wheezing [facility] Medical History Anxiety Bipolar disorder COPD (chronic obstructive pulmonary disease) GERD (gastroesophageal reflux disease) Hypercholesterolemia Hypothyroid Traumatic pneumothorax 2016, chest tube x2 Surgical History History of ankle surgery S/P thoracostomy tube placement Social History Smoking/Tobacco Use Status: Current every day Tobacco Type: cigarettes Smoking risk assessment performed?: Yes Alcohol Intake: current Drug use: Daily Substance use type: marijuana Current gender identity: male Do you feel safe at home: Yes Do you feel safe in your relationship?: Yes Exam Const General: cooperative, healthy appearing, comfortable, no acute distress and well developed Nutritional Appearance: average body habitus and well nourished Orientation: alert, awake and oriented x3 HENMT Head: normal to inspection Ears: hearing grossly normal bilaterally Mouth: moist mucous membranes Chest Chest: normal inspection of the chest, normal palpation of entire chest wall and no crepitus Resp Effort & Inspection: normal respiratory effort, able to speak in complete sentences and no respiratory distress Auscultation: clear to auscultation bilaterally, no rales, no rhonchi and no wheezes Cardio Rate: regular rate Rhythm: regular rhythm Heart Sounds: S1 normal and S2 normal Skin General skin exam: no rashes or lesions noted Trauma: no lacerations or abrasions Neuro General: patient alert, patient awake and patient oriented x3 Cognition: normal cognition Speech: speech normal Gait: normal gait Extrem General: normal to inspection, capillary refill normal, no pedal edema, no calf tenderness and normal gait Psych Appearance: grossly normal and well kempt Mental Status: mental status grossly normal Speech and Movement: speech and movement normal Course Vital Signs Vital signs: Vital Signs Temperature 36 C L 07/20/20 18:58 Pulse 99 H 07/20/20 18:58 Respiratory Rate 16 07/20/20 18:58 Blood Pressure 131/93 H 07/20/20 18:58 Pulse Oximetry 98 07/20/20 18:58 Temperature 36 C L 07/20/20 18:58 Temperature Source Tympanic 07/20/20 18:58 Pulse 99 H 07/20/20 18:58 Respiratory Rate 16 07/20/20 19:04 Respiratory Effort Non-Labored 07/20/20 19:04 Respiratory Depth Normal 07/20/20 19:04 Respiratory Pattern Normal 07/20/20 19:04 Blood Pressure 131/93 H 07/20/20 18:58 Pulse Oximetry 98 07/20/20 18:58 Oxygen Delivery Method Room Air 07/20/20 18:58 Oxygen Flow Rate 0 07/20/20 18:58 Pain Level 0 07/20/20 18:58
--- NOTE | 2020-07-20 19:15 | DI.CT_ITS ---
EXAM: CT CHEST PE CTA CLINICAL HISTORY: SOB, hemoptysis, possible lung cancer. TECHNIQUE: Imaging Protocol: Axial CT angiography was performed with multi-slice acquisition and mu lti-planar and/or 3D reconstructions. CONTRAST MATERIAL: Intravenous: Omnipaque 350 Contrast volume:[address] CHEST W from 06/17/[address] CHEST W from 06/17/2020 FINDINGS: Tracheobronchial tree: Patent where visualized. Pulmonary parenchyma: There is a spiculated density in the superior segment of the right lower lobe m easuring 4 x 2.4 x 1.7 cm. This appears slightly increased in size compared to the prior examination . There is also spiculated density in the left upper lobe associated with a air cyst. This measures 2.3 x 2.8 x 2.9 cm and appears slightly increased in size compared to the prior examination centrilo bular and paraseptal emphysematous changes are present. Pulmonary Arteries: No evidence of filling defect to suggest pulmonary emboli. Mediastinum and Kimberly: No dominant adenopathy or fluid collection. Visualized thyroid gland: Unremarkable. Pleura: No effusion or pneumothorax. Heart: The heart is not dilated. No coronary artery calcifications are seen. No pericardial effusion. No evidence of right heart strain. Aorta: Thoracic aorta non-dilated. No evidence of dissection. Upper abdomen: Unremarkable. Soft tissues: Unremarkable. Bones: Normal. IMPRESSION: 1. No evidence of pulmonary embolism, thoracic aortic dissection or aneurysm. 2. Spiculated densities in the superior segment of the right lower lobe in the left upper lobe which appears slightly increased compared to the examination from 06/17/2020. While infectious or inflammat ory process should be considered a neoplasm cannot be excluded. 3. Marked centrilobular and paraseptal emphysema. RADIATION DOSE DELIVERED: 398.89mGy.cm Total DLP DATA REPOSITORY: All CT scans at this facility are submitted to the National Radiology Data Registry (NRDR) Dose Index Registry (DIR) with the [employer] (A[employer]). RADIATION OPTIMIZATION: All CT scans at this facility use at least one of these dose optimization te chniques: automated exposure control; mA and/or kV adjustment per patient size (includes targeted exa ms where dose is matched to clinical indication); or iterative reconstruction.
--- NOTE | 2020-07-20 19:15 | RT.EKG_ITS ---
APPROVED REPORT Exam: Resting ECG Patient Location: E HR:82 bpm ECG Measurements Heart Rate 82 AXIS CA 141 P 60 QRSd 94 QRS -24 QT 374 T 21 QTc 438 Conclusion Sinus rhythm...normal P axis, V-rate 60- 99
[2020-07-20 19:36] LABS: Abs Immature Grans 0.04 10^3/uL (0.0-0.06); Absolute Basophil Count 0.07 10^3/uL (0.0-0.2); Absolute Eosinophil Count 0.34 10^3/uL (0.0-0.7); Absolute Lymphocyte Count 3.81 10^3/uL (1.2-3.4); Absolute Monocyte Count 0.98 10^3/uL (0.1-0.8); Absolute Neutrophil Count 8.41 10^3/uL (1.2-6.7); Basophils % 0.5; Eosinophils % 2.5; HGB 15.3 g/dL (13.5-17.5); Immature Grans % 0.3; Lymphocytes % 27.9; MCH 27.7 pg (27.0-33.0); MCHC 33.3 % (32.0-36.0); MCV 83.3 fL (80-95); MPV 9.8 fL (8.0-11.0); Monocytes % 7.2; Neutrophils % 61.6; Nucleated RBC 0 %; Platelet Count 222 10^3/uL (130-400); RBC 5.52 10^6/uL (4.36-5.78); RDW 13.2 % (11.8-14.1); WBC 13.65 10^3/uL (4.4-10.8)
[2020-07-20 19:49] LABS: PTT Activated 21.9 sec (21.0-27.5); Prothrombin Time 10.3 sec (9.3-11.0)
[2020-07-20 19:50] LABS: ALT 39 U/L (16-63); AST 20 U/L (15-37); Albumin 3.7 g/dL (3.4-5.0); Alkaline Phosphatase 108 U/L (46-116); Anion Gap 9.4 mmol/L (3-11); BUN 23 mg/dL (7-18); Bilirubin, Total 0.4 mg/dL (0.2-1.0); CO2 27.6 mmol/L (21.0-32.0); Calcium 8.9 mg/dL (8.5-10.1); Chloride 98 mmol/L (98-107); Glucose 126 mg/dL (74-106); Magnesium 1.9 mg/dL (1.8-2.4); Potassium 3.9 mmol/L (3.5-5.1); Sodium 135 mmol/L (136-145)
[2020-07-20] MEDS: Normal Saline - Diluent 50 ML VIAL IV (19:59)
[2020-07-20] MEDS: Lactated Ringers 1,000 ML 500 ML IV (20:00)
--- NOTE | 2020-07-20 20:24 | DI.VRAD_ITS ---
Addendum created by Saravanan Wood MD on 07/20/2020 9:20:49 PM EST: Compared to the 06/17/2020 and 05/11/2020 exams, left apical and superior segment right lower lobe spiculated densities are not significantly changed. Initial report created on 07/20/2020 8:24:14 PM EST: PROCEDURE INFORMATION: Exam: CT Angiography Chest With Contrast Exam date and time: 07/20/2020 7:21 PM Age: 54 years old Clinical indication: Shortness of breath; Patient HX: SOB, hemoptysis, possible lung CA TECHNIQUE: Imaging protocol: Computed tomographic angiography of the chest with contrast. 3D rendering (Not supervised by radiologist): MIP and/or 3D reconstructed images were created by the technologist. Radiation optimization: All CT scans at this facility use at least one of these dose optimization techniques: automated exposure control; mA and/or kV adjustment per patient size (includes targeted exams where dose is matched to clinical indication); or iterative reconstruction. Contrast material: VISIPAQUE 350; Contrast volume: 70 ml; Contrast route: INTRAVENOUS (IV); COMPARISON: CT Private^PE (Adult) 02/27/2018 2:29 AM FINDINGS: Pulmonary arteries: Normal. No pulmonary emboli. Aorta: Atherosclerotic disease of the aorta. No dissection or aneurysm. Lungs: Severe paraseptal and moderate centrilobular emphysema. Spiculated density in the apical left upper lobe surrounds an air cyst and measures 2.3 x 2.8 x 2.9 cm. Spiculated density in the superior segment right lower lobe measures approximately 3.9 x 2.4 x 1.7 cm. Pleural spaces: Unremarkable. No pneumothorax. No pleural effusion. Heart: Unremarkable. No cardiomegaly. No pericardial effusion. Lymph nodes: Sub cm short axis prevascular, precarinal, and AP window lymph nodes are nonspecific. Liver: No intrahepatic contrast reflux. Bones/joints: Endplate degenerative changes throughout the thoracic spine. Ununited fracture of the posterolateral left 9th rib, unchanged. No acute fracture or focal suspicious osseous lesion. Soft tissues: Unremarkable. IMPRESSION: 1. No pulmonary embolism. 2. Marked emphysema. 3. Spiculated densities in the apical left upper lobe and superior segment right lower lobe, not present on the 02/27/2018 comparison exam, possibly neoplastic. Inflammatory/infectious etiology should be entertained. Dictated and Authenticated by: Saravanan Wood MD. Ordering:CASEY Jeronimo MD
[2020-07-20 21:00] VITALS: BP 128/76; PULSE 89; RESP 16; O2SAT 97
== END 2020-07-20 21:28 | disposition home or self-care (01) ==
LOC: ER 21:51
PROVIDERS: Emergency Provider Physician Assistant; PCP Nurse Practitioner
DX: R04.2 Hemoptysis (principal); J43.2 Centrilobular emphysema; R06.09 Other forms of dyspnea
CPT/HCPCS: 71275; 80053; 93005; 96360; 99285; 83735; 85025; 85610; 85730; 93010; 99283

== ENCOUNTER 2020-07-28 16:02 | Emergency (ER) | payer MEDICAID, SELFPAY ==
[2020-07-28 16:09] VITALS: BP 116/75; PULSE 94; RESP 17; TEMP 36.8; O2SAT 95
--- NOTE | 2020-07-28 16:19 | NUR.NOTE ---
pt is comepletely cooperative and has been wanded by the sherrif. because of ER overload he is allowed to sit in the waiting room for now.Nursing Note:
--- NOTE | 2020-07-28 17:13 | ED.GENADUL_ITS ---
Discharge Plan Disposition Patient Disposition: OTHER Condition: Serious Discharge Details Chief Complaint: PsychEval Clinical Impression: Depression with suicidal ideation Primary Care Provider: Fariba Forde ED Provider: Kandace Gustafson Home Meds and New Rx's Prescriptions: No Action omeprazole 20 MG capsule,delayed release(DR/EC) 20 mg PO QAM RF: 0 magnesium oxide 400 mg (241.3 mg magnesium) tablet 400 mg PO QAM RF: 0 sennosides [senna] 8.6 mg Tablet 8.6 mg PO BID PRNRF: 0 sertraline 100 mg Tablet 100 mg PO DAILY RF: 0 hydroxyzine pamoate [Vistaril] 25 mg Capsule 25 mg PO BID RF: 0 trazodone 50 mg tablet 50 mg PO HS RF: 0 olanzapine 5 mg tablet 5 mg PO DAILY RF: 0 melatonin 3 mg tablet 6 mg PO HS RF: 0 pravastatin 20 mg tablet 20 mg PO HS RF: 0 levothyroxine 88 mcg Tablet 88 mcg PO DAILY RF: 0 prazosin 2 mg Capsule 2 mg PO QHS RF: 0 Medical Decision Making Patient is a pleasant 54-year-old male presenting today with chief complaint as suicidal ideation. Patient was seen here multiple times for this historically. He has been doing quite well when he was admitted recently to the care bed. He reports that he left the care bed on Sunday. Since then, symptoms have been worsening. He seems to be particularly set off by his recent visit with pulmonology. Patient reports he believes he has lung cancer but does not want to pursue treatment as he just wants to . Patient reports that when he is able to leave the hospital, he plans to commit suicide. Unclear plan. He reports that he will kill himself by what ever means necessary. Patient does report that he has means to do so. He does not have a good social support system. Reports that he is not having difficulty sleeping and has been having bizarre dreams that keeps him awake at night. He reports that these dreams make him not want to sleep. He states that he has been taking his medications as prescribed. No attempt at suicide. On exam, patient appears anxious and sad. Patient was wanded by plumbing engineer. Did not see any evidence of trauma. He appears otherwise to be at his baseline. Reviewed recent note from [facility]. Patient was seen by pulmonology on 07/25/2020. At that time, they reviewed with Asim the concerning lesions that have been noted on CT imaging. Plan is for patient to undergo EBUS staging and Grey biopsy of the left upper lobe lesion. CT-guided biopsy will be required for the right lower lobe nodule. I discussed these findings with the patient. He states that he does not want to undergo these as he knows what these are and does not wish to seek further treatment assuming these are cancerous lesions. CPS O at bedside. Order baseline labs. Patient's history and demeanor does have any quite concerned for increased suicidal ideation and safety regarding him going home. Plan to consult with mental health. Patient refused labs. Shortly after coming into the department, he began to escalate and become more agitated and anxious. Is noted in his speech pattern is resolved movements. He is not verbally aggressive or threatening. Is requesting to leave. Patient spoke with mental health but half with his conversation gave away the tablet via which they were speaking. He does not trust the mental health provider and does not want to speak with any of them tonight. Mental health and I spoke. Patient did express to her thoughts of self-harm. Based on change in demeanor and concern for inflicting self-harm, she does feel that inpatient admission would be appropriate at this time. She will consult with [facility]. Prior to consulting with [facility], patient eloped quickly from the department. Immediately contacted mental health who will contact police. HPI General Mode of arrival: ambulatory . Date/Time Provider Initiated Documentation: 07/28/20 17:06 . Limitations to Documentation: no limitations . Information obtained by: patient and RN notes reviewed . History of Present Illness 54 year old M presents to the emergency department with the chief complaint of Suicidal ideation, described as severe and similar to prior episodes, Patient started experiencing this day(s) and it has been constant. No relieving factors improve symptom(s), Other factors that worsen symptoms (Increase after recent diagnosis of possible lung cancer) . Patient notes no other symptoms.. Patient did receive the following treatments prior to arrival, none Related Data Home Medications Medication Instructions Recorded Confirmed omeprazole 20 mg PO QAM 10/16/13 07/28/20 magnesium oxide 400 mg PO QAM 10/20/19 07/28/20 melatonin 6 mg PO HS 12/19/19 07/28/20 olanzapine 5 mg PO DAILY 12/19/19 07/28/20 pravastatin 20 mg PO HS 12/19/19 07/28/20 trazodone 50 mg PO HS 12/19/19 07/28/20 hydroxyzine pamoate [Vistaril] 25 mg PO BID 04/05/20 07/28/20 sennosides [senna] 8.6 mg PO BID PRN 04/05/20 07/28/20 sertraline 100 mg PO DAILY 04/05/20 07/28/20 levothyroxine 88 mcg PO DAILY 07/18/20 07/28/20 prazosin 2 mg PO QHS 07/18/20 07/28/20 Allergies Allergy/AdvReac Type Severity Reaction Status Date / Time Sulfa (Sulfonamide Allergy Severe Swelling/Ed Unverified 07/28/20 19:46 Antibiotics) jostin General Stated Complaint: PsychEval ABA: 2 Review of Systems Constitutional Constitutional: Reports as per HPI, Denies chills, Denies fatigue, Denies fever(s), Denies headache(s) and Denies weakness Eyes Eyes: Denies change in vision ENT Ears, Nose, Mouth, and Throat: Denies headache(s) Cardiovascular Cardiovascular: Reports as per HPI, Denies chest pain, Denies lightheadedness, Denies dyspnea and Denies dyspnea on exertion Respiratory Respiratory: Reports as per HPI, Denies cough, Denies dyspnea and Denies dyspnea on exertion Gastrointestinal Gastrointestinal: Reports as per HPI, Denies abdominal pain, Denies change in bowel habits, Denies nausea and Denies vomiting Genitourinary Genitourinary: Denies system reviewed and no additional complaints, except as documented (denies any change in urinary habits) Musculoskeletal Musculoskeletal: Denies abnormal gait Integumentary/Breasts Skin/Breast: Reports as per HPI and Denies rash Neurologic Neurologic: Denies abnormal movements, Denies abnormal speech, Denies abnormal gait, Denies headache(s), Denies paresthesias and Denies weakness Psychiatric Psychiatric: Reports as per HPI, Reports abnormal sleep pattern, Reports anxiety, Reports depression, Reports panic attacks, Denies homicidal ideation and Reports suicidal ideation Endocrine Endocrine: Denies fatigue [facility] Medical History Anxiety Bipolar disorder COPD (chronic obstructive pulmonary disease) GERD (gastroesophageal reflux disease) Hypercholesterolemia Hypothyroid Traumatic pneumothorax 2016, chest tube x2 Surgical History History of ankle surgery S/P thoracostomy tube placement Social History Smoking/Tobacco Use Status: Current every day Tobacco Type: cigarettes Smoking risk assessment performed?: Yes Alcohol Intake: current Drug use: Daily Substance use type: marijuana Current gender identity: male Do you feel safe at home: Yes Do you feel safe in your relationship?: Yes Exam Const General: cooperative, healthy appearing, no acute distress, well developed, well groomed and anxious Nutritional Appearance: average body habitus and well nourished Orientation: alert and awake Eyes General: appearance normal, both eyes and all related structures Resp Effort & Inspection: normal respiratory effort, able to speak in complete sentences and no respiratory distress Auscultation: clear to auscultation bilaterally, no rales, no rhonchi and no wheezes Cardio Rate: regular rate Rhythm: regular rhythm Heart Sounds: S1 normal and S2 normal Skin General skin exam: no rashes or lesions noted Trauma: no lacerations or abrasions Neuro General: patient alert and patient awake Cognition: normal cognition Speech: speech normal Gait: normal gait Psych Appearance: grossly normal and well kempt Mental Status: mental status grossly normal Speech and Movement: speech and movement normal Mood: anxious mood Affect: sad Attitude: cooperative Thought Process: normal Thought Content: suicidality Insight: fair Judgment: fair Course Vital Signs Vital signs: Vital Signs Temperature 36.8 C 07/28/20 16:09 Pulse 94 H 07/28/20 16:09 Respiratory Rate 17 07/28/20 16:09 Blood Pressure 116/75 07/28/20 16:09 Pulse Oximetry 95 07/28/20 16:09 Temperature 36.8 C 07/28/20 16:09 Temperature Source Tympanic 07/28/20 16:09 Pulse 94 H 07/28/20 16:09 Respiratory Rate 17 07/28/20 16:09 Blood Pressure 116/75 07/28/20 16:09 Blood Pressure Position Sitting 07/28/20 16:09 Pulse Oximetry 95 07/28/20 16:09 Oxygen Delivery Method Room Air 07/28/20 16:09 Oxygen Flow Rate 0 07/28/20 16:09 Pain Level 0 07/28/20 16:09
--- NOTE | 2020-07-29 07:13 | NUR.NOTE ---
Nursing Note: Ayleen from the lab called stating that there were labs pending on this patient. These labs that I cancelled were from this visit that the patient eloped from the department. They were not done. Jinny Carpenter
== END 2020-07-28 18:45 | disposition other institution (70) ==
PROVIDERS: Emergency Provider Physician Assistant; PCP Nurse Practitioner
DX: F41.8 Other specified anxiety disorders (principal); R45.851 Suicidal ideations; Z53.29 Procedure and treatment not carried out because of patient's decision for other reasons
CPT/HCPCS: 80053; 99283; 80320; 80329; 84443; 85025

== ENCOUNTER 2020-07-28 18:55 | Emergency (ER) | payer MEDICAID, SELFPAY ==
--- NOTE | 2020-07-28 19:02 | ED.GENADUL_ITS ---
Discharge Plan Disposition Patient Disposition: [facility] Condition: Serious Discharge Details Clinical Impression: Depression with suicidal ideation Primary Care Provider: Fariba Forde ED Provider: Mickey Ragsdale Home Meds and New Rx's Prescriptions: No Action omeprazole 20 MG capsule,delayed release(DR/EC) 20 mg PO QAM RF: 0 magnesium oxide 400 mg (241.3 mg magnesium) tablet 400 mg PO QAM RF: 0 sennosides [senna] 8.6 mg Tablet 8.6 mg PO BID PRNRF: 0 sertraline 100 mg Tablet 100 mg PO DAILY RF: 0 hydroxyzine pamoate [Vistaril] 25 mg Capsule 25 mg PO BID RF: 0 trazodone 50 mg tablet 50 mg PO HS RF: 0 olanzapine 5 mg tablet 5 mg PO DAILY RF: 0 melatonin 3 mg tablet 6 mg PO HS RF: 0 pravastatin 20 mg tablet 20 mg PO HS RF: 0 levothyroxine 88 mcg Tablet 88 mcg PO DAILY RF: 0 prazosin 2 mg Capsule 2 mg PO QHS RF: 0 Medical Decision Making <RENAE Vidal - Last Filed: 07/30/20 11:02> Patient is a 54-year-old male who just eloped while being evaluated for suicidal ideation. Please see my previous note. Patient returned and reports I do not know why I came back. He is requesting to leave again. He states that if when he goes home he intend to commit suicide. [facility] had already been contacted as there was concern for him requiring involuntary admission. Jaime, with mental [facility], attempted to speak with patient who refused to speak with him. Based on patients reports of self harm if he leaves, as well as the change in his demeanor compared to prior visits, I am concerned about the patient continuingto request discharge. [facility] and myself feel that patient should be admitted involuntarily with plan for transfer to psychiatric facility once bed is available. CPSO is at bedside. Patient was able to be verbally deescalated. He is now agreeing to anxiolytic and will give him 1 mg of p.o. Ativan. Patient is agreeing to stay at this time but still seems quite hesitant with this. Plan at this time is for patient to be involuntarily admitted as he will likely want to leave again and already contemplating this. However, he does continue to report that if he leaves he will be with the plan to commit suicide. Patient reports that she is feeling improved after 1 mg of Ativan. Is requesting p.m. meds. Patient sleeping after p.m. meds. <Rani Huffman DO - Last Filed: 07/29/20 15:16> 0800 --please see previous providers notes for initial presentation, exam and plan. Patient is involuntary and EE'ed. He has refused labs and Covid testing. He is sleeping upon my arrival. 1045 --patient spoke to [facility] through Zoom at bedside. He is continuing to refuse labs and Covid swab. 1230 --patient walked out of the room and threw his phone into the trashcan. Staff picked his phone out of the trash and placed in a plastic bag to put with his belongings. 1250 --pt stating his is going to walk out of here in 2 seconds. Discussed with him at bedside and he is declining ativan, food or laptop to watch something. Will order ativan if he changes his mind. He is redirectable and calm at this time but may escalate. 1400 --patient took a dose of Ativan. He is still refusing any lab draw. ED director Clovis Carmona also discussed with patient at bedside and he is refusing any lab draw or Covid swab. Rodrigo called the ED staff stating that they would have accepted patient without lab work but not without a Covid swab. Patient had labs drawn on 07/20/2020 and he was medically cleared at that time. Patient has no new medical complaints so I do not see an indication to push for repeat lab work but he will need a Covid swab. Discussed with Tamie from [facility] whether we can obtain a judges order for testing but she thinks this is not possible. She will come to evaluate patient at bedside. 1515 --patient refusing Covid swab after speaking with Tamie at bedside. Second certificate planned for 1 hour from now. Case endorsed to Dr. Majano to follow-up with [facility] after second certificate completed. If patient continuing to refuse Covid swab, will plan for sedation and Covid swab testing. Medical Records Medical records reviewed: Yes I reviewed the patient's medical records. <Francisco Majano MD - Last Filed: 07/29/20 17:27> 1530 --care signed out by Dr. Huffman with plan to await psychiatric placement. Patient does require Covid testing and has refused multiple times. Will attempt to convince patient of need for Covid testing to complete medical screening exam. --Second CERT was performed by psychiatry. 1715 --patient refusing Covid testing and becoming verbally threatening and posturing despite de-escalation techniques. A code arita was called to protect staff and patient. Restraints including chemical and physical ordered but not administered as de-escalation techniques were eventually successful. Restraints were canceled and not implemented. Patient agreed to Covid swab. <Mickey Ragsdale DO - Last Filed: 07/30/20 14:09> Patient the result of his morning medications this morning. He is still under involuntary admission. Patient has been accepted at [facility]. Patient will be transferred via Business Attorney. Mental health continues in the assessment for his need for admission and involuntarily there. Case has been reviewed with the [facility] team. They agree with the plan. Patient will be transferred. HPI <RENAE Vidal - Last Filed: 07/30/20 11:02> General Mode of arrival: ambulatory . Date/Time Provider Initiated Documentation: 07/28/20 18:57 . Limitations to Documentation: no limitations . Information obtained by: patient, RN notes reviewed and old records reviewed . History of Present Illness 54 year old M presents to the emergency department with the chief complaint of suicidal ideation, described as severe, Patient started experiencing this day(s) (ongoing for long time, consistant since dx of cancer) and it has been constant. No relieving factors improve symptom(s), Other factors that worsen symptoms (recent dx and d/c to home after being in care bed) . Patient notes no other symptoms.. Patient did receive the following treatments prior to arrival, none Related Data Home Medications Medication Instructions Recorded Confirmed omeprazole 20 mg PO QAM 10/16/13 07/28/20 magnesium oxide 400 mg PO QAM 10/20/19 07/28/20 melatonin 6 mg PO HS 12/19/19 07/28/20 olanzapine 5 mg PO DAILY 12/19/19 07/28/20 pravastatin 20 mg PO HS 12/19/19 07/28/20 trazodone 50 mg PO HS 12/19/19 07/28/20 hydroxyzine pamoate [Vistaril] 25 mg PO BID 04/05/20 07/28/20 sennosides [senna] 8.6 mg PO BID PRN 04/05/20 07/28/20 sertraline 100 mg PO DAILY 04/05/20 07/28/20 levothyroxine 88 mcg PO DAILY 07/18/20 07/28/20 prazosin 2 mg PO QHS 07/18/20 07/28/20 Allergies Allergy/AdvReac Type Severity Reaction Status Date / Time Sulfa (Sulfonamide Allergy Severe Swelling/Ed Unverified 07/28/20 19:46 Antibiotics) jostin General ABA: 2 Review of Systems <RENAE Vidal - Last Filed: 07/30/20 11:02> Constitutional Constitutional: Reports as per HPI, Denies chills, Denies fatigue, Denies fever(s), Denies headache(s) and Denies weakness Eyes Eyes: Denies change in vision ENT Ears, Nose, Mouth, and Throat: Denies headache(s) Cardiovascular Cardiovascular: Reports as per HPI, Denies chest pain, Denies lightheadedness, Denies dyspnea and Denies dyspnea on exertion Respiratory Respiratory: Reports as per HPI, Denies cough, Denies dyspnea and Denies dyspnea on exertion Gastrointestinal Gastrointestinal: Reports as per HPI, Denies abdominal pain, Denies change in bowel habits, Denies nausea and Denies vomiting Genitourinary Genitourinary: Denies system reviewed and no additional complaints, except as documented (denies any change in urinary habits) Musculoskeletal Musculoskeletal: Denies abnormal gait Integumentary/Breasts Skin/Breast: Reports as per HPI and Denies rash Neurologic Neurologic: Denies abnormal movements, Denies abnormal speech, Denies abnormal gait, Denies headache(s), Denies paresthesias and Denies weakness Psychiatric Psychiatric: Reports as per HPI, Reports abnormal sleep pattern, Reports paranoia (feels that the end is near and sees this in his dreams), Denies tactile hallucinations, Denies homicidal ideation and Reports suicidal ideation Endocrine Endocrine: Denies fatigue PFSH <RENAE Vidal - Last Filed: 07/30/20 11:02> Medical History Anxiety Bipolar disorder COPD (chronic obstructive pulmonary disease) GERD (gastroesophageal reflux disease) Hypercholesterolemia Hypothyroid Traumatic pneumothorax 2017, chest tube x2 Surgical History History of ankle surgery S/P thoracostomy tube placement Social History Smoking/Tobacco Use Status: Current every day Tobacco Type: cigarettes Smoking risk assessment performed?: Yes Alcohol Intake: current Drug use: Daily Substance use type: marijuana Current gender identity: male Do you feel safe at home: Yes Do you feel safe in your relationship?: Yes Exam <RENAE Vidal - Last Filed: 07/30/20 11:02> Const General: cooperative, healthy appearing, no acute distress, well developed, well groomed, in distress moderate and anxious Nutritional Appearance: average body habitus and well nourished Orientation: alert and awake Eyes General: appearance normal, both eyes and all related structures Resp Effort & Inspection: normal respiratory effort, able to speak in complete sentences and no respiratory distress Auscultation: clear to auscultation bilaterally, no rales, no rhonchi and no wheezes Cardio Rate: regular rate Rhythm: regular rhythm Heart Sounds: S1 normal and S2 normal Skin General skin exam: no rashes or lesions noted Trauma: no lacerations or abrasions Neuro General: patient alert and patient awake Cognition: normal cognition Speech: speech normal Gait: normal gait Psych Appearance: grossly normal and well kempt Mental Status: mental status grossly normal Speech and Movement: agitated Mood: anxious mood Affect: anxious affect Attitude: belligerent and guarded Thought Process: normal Thought Content: suicidality Insight: limited Judgment: limited Sign Out <RENAE Vidal - Last Filed: 07/30/20 11:02> Sign Out Data: Sign Out Comment: Care transition to Dr. Ragsdale. Patient has been involuntarily admitted. He has refused all laboratory evaluation. Refused to speak with mental health. Patient is much calmer at this time. Received PO ativan and evening meds. Last updated by Kandace Gustafson PA at 07/28/20 23:49 Sign Out Comment: Involuntary mental health admit. Patient has refused all laboratory evaluation. Did remain stable throughout the night, slept well, did wake up once and again refused Covid testing and labs. Pending reassessment by mental health Last updated by Mickey Ragsdale DO at 07/29/20 06:21 Sign Out Comment: Patient has continued to refuse lab draw and Covid swab today. He is medically cleared from my perspective with no acute medical complaints and unremarkable labs 9 days ago. We will need to obtain Covid swab for placement. Second certificate planned for this afternoon. If patient continues to refuse Covid swab, will plan for sedation to obtain Covid swab at bedside. Last updated by Rani Huffman DO at 07/29/20 15:19 Sign Out Comment: Patient slept overnight and there were no issues. Covid swab was obtained and is negative. Still refusing blood work and has not provided a urine sample. He is still involuntary admission. Did take his medications last night. Last updated by Jewel Lackey MD at 07/30/20 07:34
[2020-07-28] MEDS: LORazepam 1 MG TAB PO (19:25)
[2020-07-28] MEDS: Prazosin 1 MG CAP 2 MG PO (21:16)
[2020-07-28] MEDS: Melatonin 3 MG TAB 6 MG PO (21:16)
[2020-07-28] MEDS: hydrOXYzine PAMOATE 25 MG CAP PO (21:16)
[2020-07-28] MEDS: Pravastatin 20 MG TAB PO (21:16)
[2020-07-28] MEDS: traZODone 50 MG TAB PO (21:17)
--- NOTE | 2020-07-29 04:40 | NUR.NOTE ---
Nursing Note:Call received from [facility] inquiring about patient. Let him know patient was initially agitated upon arrival, was given ativan and was able to calm down. Has been sleeping most of the time since then. Has refused to change or have blood drawn. Inquiring if patients COVID swab has been done. I let him know I would get an order for one and do it as soon as the patient wakes up.
--- NOTE | 2020-07-29 06:55 | NUR.NOTE ---
Nursing Note:All patient observation documentation prior to 0300 was done on record #[id number].
--- NOTE | 2020-07-29 08:31 | CMSP_ITS ---
- If Service Date Differs Date of service: 07/29/20 Time of Service: 08:31 Care Management Safety Plan Status: Involuntary Date of service: 07/28/20 Time of Service: 20:24 Care Management Safety Plan Status: Involuntary Chief Complaint: Asim is a 54 year old male who is well known to [facility]. He receives services through [facility] POOL TABLE OPERATOR program. This is Asim's 3rd visit to the emergency department for suicidal ideation this month after 6 visits in June. He has been hospitalized many times in the past and at times leaves against medical advice. Asim presented today with SI. He has recently been diagnosed with lung cancer and has refused a workup or treatment to date. Asim was at [facility] earlier today but eloped. He returned to the ED and is now on Involuntary status awaiting a second certification which will likely occur tomorrow. INVOLUNTARY FOR INPATIENT PSYCHIATRIC STABILIZATION. Safety plan has been established to meet the needs of the patient, and consideration of the care team, to adhere to patient goals, identify restrictions based on behavioral status, address nutrition, and determine allowed personal belongings, tools for hygiene and personal care. Determine level of activity including ambulation, level of supervision, visitors, and determine privileges based on behaviors and level of engagement by pt. SAFETY PLAN: 1. May remain in own clothes after wanding by trust advisor 2. Will remain in room under direct supervision of one-on-one staff at all times provided by CPSO; DONTAE, BARREL FILLER technical administrator. 3. May have paper cups, plates, finger foods as well as a cardboard spoon 4. Follow [facility] Management of the Admitted Behavioral Health Patient policy. 5. Comfort bath system only. 6. No personal belongings except personal phone, at nursing discretion. 7. Visitors: none at this time 8. Activities: may watch tv when available and movies under direct supervision at nursing discretion. Soft items from activity cart at nursing discretion. 9. Bathroom privileges with supervision 10. Phone: may keep and use personal phone at nursing discretion. 11. Due to INVOLUNTARY status, patient is being held at [facility] by the Department of Mental Health (DM) until 2nd certification by [facility] Psychiatrist can be performed (within 24 hours). Staff will provide de-escalation support (CPI) as needed. If patient wishes to leave [facility], staff will contact [facility] Crisis Screener ([phone]) and On-Call [employer]icket [employer] ([phone]) as soon as possible. In the event of elopement, notify [facility] Police ([phone]). Patient is currently involuntarily at [facility]. [facility] Frontline Applications Systems Engineer will continue seeking placement. Please contact the Production Service Manager [employer] ([phone]) for any needed changes to Safety Plan. Safety plan has been provided to interdepartmental care team. Patient will be transported by trust advisor at time of discharge. cc:
--- NOTE | 2020-07-29 12:35 | NUR.NOTE ---
Nursing Note: JOSELINOKARMEN stopped me in the ortiz and stated that the patient just came out of the room and threw his cell phone in the trash. With Bea Cedeno RN we retrieved the phone, placed it in a labeled ziplok bag and it was placed in the patient belongings bag in the dirty utility room. Jinny Carpenter
--- NOTE | 2020-07-29 12:37 | NUR.NOTE ---
Nursing Note: At the request of [facility] I faxed the H&P and nursing notes to [facility] and [facility]. [facility] [phone] [facility] [phone]
--- NOTE | 2020-07-29 13:43 | NUR.NOTE ---
pt asked me to come into his room and told me that he was having racing thoughts he states that he feels like he might get violent . he agreed to take the ativan that he had refused an hour agoNursing Note:
[2020-07-29] MEDS: LORazepam 1 MG TAB PO (13:44)
[2020-07-29 17:45] LABS: COVID-19 PCR Negative (Negative); Influenza A PCR Negative (Negative); Influenza B PCR Negative (Negative); RSV PCR Negative (Negative)
--- NOTE | 2020-07-29 18:35 | CMSP_ITS ---
- If Service Date Differs Date of service: 07/29/20 Time of Service: 18:35 Care Management Safety Plan Status: Involuntary CAOLUNTARY FOR INPATIENT PSYCHIATRIC STABILIZATION. Safety plan has been established to meet the needs of the patient, and consideration of the care team, to adhere to patient goals, identify restrictions based on behavioral status, address nutrition, and determine allowed personal belongings, tools for hygiene and personal care. Determine level of activity including ambulation, level of supervision, visitors, and determine privileges based on behaviors and level of engagement by pt. SAFETY PLAN: 1. May remain in own clothes after wanding by weblogic developer 2. Will remain in room under direct supervision of one-on-one staff at all times provided by CPSO, DONTAE, BULK PALLET BUILDER color depositing machine tender. 3. May have paper cups, plates, finger foods as well as a cardboard spoon 4. Follow [facility] Management of the Admitted Behavioral Health Patient policy. 5. Comfort bath system only. 6. No personal belongings except personal phone, at nursing discretion. 7. Visitors: none at this time 8. Activities: may watch television when available and movies under direct supervision at nursing discretion. Soft items from activity cart at nursing discretion. 9. Bathroom privileges with supervision 10. Phone: may keep and use personal phone at nursing discretion. 11. Due to INVOLUNTARY status, patient is being held at [facility] by the Department of Mental Health ([facility]). Second certification by [facility] Psychiatrist was performed today, 07/29/20, and the involuntary status was upheld by Dr. Cherry Michelle, [facility] Psychiatrist. Staff will provide de-escalation support (CPI) as needed. If patient wishes to leave [facility], staff will contact [facility] Crisis Screener ([phone]) and On-Call General Cleaner ([phone]) as soon as possible. In the event of elopement, notify [place] State Police ([phone]). Patient is currently involuntarily at [facility]. [facility] Frontline Orange Picker Machine Operator will continue seeking placement. Please contact the Bridge Contractor General Cleaner ([phone]) for any needed changes to Safety Plan. Safety plan has been provided to interdepartmental care team. Patient will be transported by weblogic developer at time of discharge.
--- NOTE | 2020-07-29 18:35 | PDOC.CMSAFED ---
- If Service Date Differs Date of service: 07/29/20 Time of Service: 18:35 Care Management Safety Plan Status: Involuntary GAOLUNTARY FOR INPATIENT PSYCHIATRIC STABILIZATION. Safety plan has been established to meet the needs of the patient, and consideration of the care team, to adhere to patient goals, identify restrictions based on behavioral status, address nutrition, and determine allowed personal belongings, tools for hygiene and personal care. Determine level of activity including ambulation, level of supervision, visitors, and determine privileges based on behaviors and level of engagement by pt. SAFETY PLAN: 1. May remain in own clothes after wanding by radiation oncology nurse 2. Will remain in room under direct supervision of one-on-one staff at all times provided by CPSO, DONTAE, MANAGEMENT ANALYST revenue enforcement collection agent. 3. May have paper cups, plates, finger foods as well as a cardboard spoon 4. Follow [facility] Management of the Admitted Behavioral Health Patient policy. 5. Comfort bath system only. 6. No personal belongings except personal phone, at nursing discretion. 7. Visitors: none at this time 8. Activities: may watch television when available and movies under direct supervision at nursing discretion. Soft items from activity cart at nursing discretion. 9. Bathroom privileges with supervision 10. Phone: may keep and use personal phone at nursing discretion. 11. Due to INVOLUNTARY status, patient is being held at [facility] by the Department of Mental Health ([facility]). Second certification by [facility] Psychiatrist was performed today, 07/29/20, and the involuntary status was upheld by Dr. Cherry Michelle, [facility] Psychiatrist. Staff will provide de-escalation support (CPI) as needed. If patient wishes to leave [facility], staff will contact [facility] Crisis Screener ([phone]) and On-Call Fish Seiner ([phone]) as soon as possible. In the event of elopement, notify [place] State Police ([phone]). Patient is currently involuntarily at [facility]. [facility] Frontline Quality Process Engineer will continue seeking placement. Please contact the Bond Clerk Fish Seiner ([phone]) for any needed changes to Safety Plan. Safety plan has been provided to interdepartmental care team. Patient will be transported by radiation oncology nurse at time of discharge.
--- NOTE | 2020-07-29 18:40 | CMPROGNOTE_ITS ---
- If Service Date Differs Date of service: 07/29/20 Time of Service: 18:40 Care Management Progress Note S/O: Asim's HEALTH INSPECTOR FOOD shoe parts caser, Ozzy, brought him to the ED yesterday due to suicidal ideation. Asim has an extensive psychiatric history and has been hospitalized numerous times over the years, with his last hospitalization being on 04/06/20 at [facility]. Today, Asim has been uncooperative with blood work/Covid swab and has spent much of the day with blankets pulled over his head and sleeping. A Second Certification by Psychiatrist was done this afternoon at 3:30 pm. At first, Asim would not engage with the [facility] Psychiatrist but with some encouragement from Tamie [facility] Crisis Screener, he did engage with Dr. Eleni Michelle. A: Asim is a 54 year old male admitted to [facility] on 07/28/20 for suicidal ideation. P: Dr. Michelle certified the involuntary status. Asim will therefore remain at [facility] involuntarily while [facility] continues to seek placement for him. Referrals have been made to [facility] and [facility]. will continue to follow.
--- NOTE | 2020-07-29 18:40 | PDOC.ERCMPRO ---
- If Service Date Differs Date of service: 07/29/20 Time of Service: 18:40 Care Management Progress Note S/O: Asim's CERTIFIED DENTAL ASSISTANT high risk case manager, Ozzy, brought him to the ED yesterday due to suicidal ideation. Asim has an extensive psychiatric history and has been hospitalized numerous times over the years, with his last hospitalization being on 04/06/20 at [facility]. Today, Asim has been uncooperative with blood work/Covid swab and has spent much of the day with blankets pulled over his head and sleeping. A Second Certification by Psychiatrist was done this afternoon at 3:30 pm. At first, Asim would not engage with the [facility] Psychiatrist but with some encouragement from Tamie [facility] Crisis Screener, he did engage with Dr. Eleni Michelle. A: Asim is a 54 year old male admitted to [facility] on 07/28/20 for suicidal ideation. P: Dr. Michelle certified the involuntary status. Asim will therefore remain at [facility] involuntarily while [facility] continues to seek placement for him. Referrals have been made to [facility] and [facility]. will continue to follow.
[2020-07-29] MEDS: traZODone 50 MG TAB PO (20:35)
[2020-07-29] MEDS: Melatonin 3 MG TAB 6 MG PO (20:35)
[2020-07-29] MEDS: hydrOXYzine HCL 25 MG TAB PO (20:35)
[2020-07-29] MEDS: Prazosin 1 MG CAP 2 MG PO (20:35)
[2020-07-29] MEDS: Pravastatin 20 MG TAB PO (20:35)
[2020-07-30] MEDS: hydrOXYzine PAMOATE 25 MG CAP PO (08:47)
[2020-07-30] MEDS: Magnesium Oxide 400 MG TAB PO (08:47)
[2020-07-30] MEDS: Omeprazole 20 MG CAPCR PO (08:48)
[2020-07-30] MEDS: OLANZapine 5 MG TAB PO (09:10)
[2020-07-30] MEDS: Levothyroxine 88 MCG TAB PO (09:10)
[2020-07-30] MEDS: Sertraline 50 MG TAB 100 MG PO (09:11)
[2020-07-30 11:19] VITALS: BP 125/86; PULSE 84; RESP 18; TEMP 36.8; O2SAT 94
--- NOTE | 2020-07-30 13:25 | NUR.NOTE ---
Nurse to nurse completed. [facility] requesting patient arrive to their facility by 1730. Nursing Note:
--- NOTE | 2020-07-30 16:27 | MHPN_ITS ---
Date of service: 07/29/20 Time of Service: 16:27 Mental Health Crisis Note Presenting Issue How did you arrive at the ED and why did you come: Pt arrived yesterday and was placed on EE status. Precipitating Factors Pt reported he still has SI with this clinician in the am however, denied with the psychiatrist. Disposition BEHAVIOR: Pt was guarded, withdrawn and then agitated and threatening regarding his neighbors. EYE CONTACT: poor MOOD: withdrawn depressed AFFECT: eyes closed and avoiding APPETITE: unknown SLEEP(trouble falling/staying asleep: pretends to sleep when being assessed. Plan Pt's second certification has been completed and he will remain at [facility] pending acceptance and admission to a psychiatric hospital. Due to the Pt 's responses in the last 24 hours and his frequent turn around to the ER in mental health crisis along with is constant safety planning that is always the same and appears to not be working effectively it is this clinicians belief and that of the psychiatrist that he still needs inpatient treatment. Signature Clinician's Name/Title: Tamie Mccord MS, [facility]
--- NOTE | 2020-07-30 19:07 | CMPROGNOTE_ITS ---
- If Service Date Differs Date of service: 07/30/20 Time of Service: 19:07 Care Management Progress Note Asim is currently an involuntary patient, waiting in the ED for psychiatric placement. OLIMPIA checked in with ED staff, who reported no changes to the plan. At approximately 1:30, OLIMPIA was alerted by ED staff that Asim had been accepted by [facility], as the nurse had completed the RN to RN. coordinated transportation with [facility], which was approved by [facility]. [facility] faxed the transport order to , and CM provided it to the [facility] on duty. [facility] faxed transport paperwork to , which obtained signatures for and faxed to [facility]. Asim was transported to [facility] via [facility], for inpatient psychiatric stabilization.
--- NOTE | 2020-07-30 19:07 | PDOC.ERCMPRO ---
- If Service Date Differs Date of service: 07/30/20 Time of Service: 19:07 Care Management Progress Note Asim is currently an involuntary patient, waiting in the ED for psychiatric placement. OLIMPIA checked in with ED staff, who reported no changes to the plan. At approximately 1:30, OLIMPIA was alerted by ED staff that Asim had been accepted by [facility], as the nurse had completed the RN to RN. coordinated transportation with [facility], which was approved by [facility]. [facility] faxed the transport order to , and CM provided it to the [facility] on duty. [facility] faxed transport paperwork to , which obtained signatures for and faxed to [facility]. Asim was transported to [facility] via [facility], for inpatient psychiatric stabilization.
--- NOTE | 2020-08-02 10:05 | NUR.NOTE ---
Addendum entered by Jinny Carpenter 08/02/20 10:08: Fax number [phone] Original Note: Nursing Note: Rizwana from [facility] called requesting all the information from this visit to be faxed to them. I gave the to Medical Records who will follow up on this.Jinny Carpenter
== END 2020-07-30 14:47 | disposition short-term general hospital (02) ==
PROVIDERS: Student in an Organized Health Care Education/Training Program; Emergency Provider Student in an Organized Health Care Education/Training Program; PCP Nurse Practitioner
DX: F41.8 Other specified anxiety disorders (principal); R91.8 Other nonspecific abnormal finding of lung field; R45.851 Suicidal ideations; F91.9 Conduct disorder, unspecified; Z03.818 Encounter for observation for suspected exposure to other biological agents ruled out
CPT/HCPCS: 36415; 80053; 99285; 80320; 80329; 84443; 85025; 99284

== ENCOUNTER 2020-08-23 15:06 | Emergency (ER) | payer MEDICAID, SELFPAY ==
--- NOTE | 2020-08-23 15:00 | RT.EKG_ITS ---
APPROVED REPORT Exam: Resting ECG Patient Location: E HR:84 bpm ECG Measurements Heart Rate 84 AXIS WY 142 P 53 QRSd 94 QRS 4 QT 370 T 39 QTc 437 Conclusion Sinus rhythm...normal P axis, V-rate 60- 99 Physician: No STEMI Otherwise normal ECG
[2020-08-23 15:06] VITALS: BP 105/65; PULSE 92; RESP 16; TEMP 36.8; O2SAT 96
--- NOTE | 2020-08-23 15:08 | W.ED.GENAD ---
Discharge Plan Disposition Patient Disposition: HOME Condition: Good Discharge Details Clinical Impression: Shingles, Rash, Rib pain Primary Care Provider: Fariba Forde ED Provider: Mickey Ragsdale Home Meds and New Rx's Prescriptions: New capsaicin 0.025 % adhesive patch,medicated 1 patch topical TID Qty: 10 RF: 0 Continued omeprazole 20 MG capsule,delayed release(DR/EC) 20 mg PO QAM RF: 0 magnesium oxide 400 mg (241.3 mg magnesium) tablet 400 mg PO QAM RF: 0 sennosides [senna] 8.6 mg Tablet 8.6 mg PO BID PRNRF: 0 sertraline 100 mg Tablet 100 mg PO DAILY RF: 0 hydroxyzine pamoate [Vistaril] 25 mg Capsule 25 mg PO BID RF: 0 trazodone 50 mg tablet 50 mg PO HS RF: 0 olanzapine 5 mg tablet 5 mg PO DAILY RF: 0 melatonin 3 mg tablet 6 mg PO HS RF: 0 pravastatin 20 mg tablet 20 mg PO HS RF: 0 levothyroxine 88 mcg Tablet 88 mcg PO DAILY RF: 0 prazosin 2 mg Capsule 2 mg PO QHS RF: 0 Discharge Instructions Instructions: Shingles (ED) Additional Instructions: At this time your EKG shows no signs of heart pathology of significance, and your chest x-ray shows no pneumothorax, or pneumonia. I suspect your symptoms are secondary to this rash which at this time appears to be early shingles. Time will help allow us further differentiation. If the rash spreads around your left chest, or worsens please use the prescribed patches as directed. If this does not manage the pain, you may need it reevaluated to see if it has transitioned into a different type of rash, or discussed potential alternative medication management for it. If you notice any worsening of your symptoms, or any new symptoms such as vomiting, diarrhea, fever, chills, shortness of breath, chest pain, numbness, weakness, or fainting , please return immediately to the emergency department for reevaluation. Please follow up with your primary care provider as soon as possible for reassessment and reevaluation. As always, it was a pleasure participating in your medical care today. Referrals: Fariba Forde [Primary Care Provider] - Medical Decision Making 54-year-old male with a past medical history of previous severe depression, COPD, bipolar, previous pneumothorax presents today for evaluation of left-sided rib/chest pain. Patient states that for the last 3 days he has had mild left rib pain in the posterior aspect of his back slightly made worse with breathing. He also describes notable itchy and scratchy spot in his left\ribs. He does admit to a chronic cough and shortness of breath but denies any significant acute exacerbating component and feels that it is otherwise relatively unchanged. He does have a history of previous nodes on his chest CT. He denies any new hemoptysis. He denies any urinary dysfunction, abdominal pain, bandlike chest pain, chest pain throughout the rest of his chest, fever or chills. No other complaints at this time. No recent trauma. No other modifying factors. Exam demonstrates stable vital signs, no abnormal lung sounds, no signs of trauma. There is a rash on his back in the location of both of his itchiness and pain which appears indicative of early shingles. I suspect this is the cause of his symptoms. Out of an abundance of precaution though we will get a screening EKG and a portable chest x-ray to rule out pneumonia, infiltrate, large mass, or other concerning life-threatening etiology. Otherwise the patient looks notably stable at this time. 4:30 PM X-ray results have returned, no acute process per radiology, EKG unremarkable. Patient's pain completely resolved with Lidoderm patch. Suspect muscle irritation and potential early shingles. Will give capscacin cream patches for home use. Discussed red flags which to return. I have extensively reviewed the treatment plan and discharge instructions with the patient. I have addressed all patient concerns at this time. The patient was made aware of what symptoms to monitor for that would warrant a return to the emergency department. Discussed the plan with the patient, they demonstrate verbal understanding and agreement with our assessment and plan at this time. The documentation in this chart was dictated using [employer] dictation software. Please excuse any dictation errors. FINDINGS: MEDIASTINUM: Normal. HEART: Normal. PULMONARY VASCULATURE: Normal. LUNGS: Stable parenchymal scarring. No acute infiltrates. PLEURAL SPACE: No pleural effusion or pneumothorax. BONE:Within normal limits for the patient's age. OTHER FINDINGS:Normal. IMPRESSION: No acute pulmonary findings. HPI General Date/Time Provider Initiated Documentation: 08/23/20 15:07. HPI Narrative: 54-year-old male with a past medical history of previous severe depression, COPD, bipolar, previous pneumothorax presents today for evaluation of left-sided rib/chest pain. Patient states that for the last 3 days he has had mild left rib pain in the posterior aspect of his back slightly made worse with breathing. He also describes notable itchy and scratchy spot in his left\ribs. He does admit to a chronic cough and shortness of breath but denies any significant acute exacerbating component and feels that it is otherwise relatively unchanged. He does have a history of previous nodes on his chest CT. He denies any new hemoptysis. He denies any urinary dysfunction, abdominal pain, bandlike chest pain, chest pain throughout the rest of his chest, fever or chills. No other complaints at this time. No recent trauma. No other modifying factors. Related Data Home Medications Medication Instructions Recorded Confirmed omeprazole 20 mg PO QAM 10/16/13 07/28/20 magnesium oxide 400 mg PO QAM 10/20/19 07/28/20 melatonin 6 mg PO HS 12/19/19 07/28/20 olanzapine 5 mg PO DAILY 12/19/19 07/28/20 pravastatin 20 mg PO HS 12/19/19 07/28/20 trazodone 50 mg PO HS 12/19/19 07/28/20 hydroxyzine pamoate [Vistaril] 25 mg PO BID 04/05/20 07/28/20 sennosides [senna] 8.6 mg PO BID PRN 04/05/20 07/28/20 sertraline 100 mg PO DAILY 04/05/20 07/28/20 levothyroxine 88 mcg PO DAILY 07/18/20 07/28/20 prazosin 2 mg PO QHS 07/18/20 07/28/20 capsaicin 1 patch TOPICAL TID #10 ea 08/23/20 Previous Rx's Medication Instructions Recorded capsaicin 1 patch TOPICAL TID #10 ea 08/23/20 Allergies Allergy/AdvReac Type Severity Reaction Status Date / Time Sulfa (Sulfonamide Allergy Severe Swelling/Ed Unverified 08/23/20 15:40 Antibiotics) jostin General ABA: 2 Review of Systems All systems reviewed & are unremarkable except as noted in HPI and below PFSH Medical History Anxiety Bipolar disorder COPD (chronic obstructive pulmonary disease) GERD (gastroesophageal reflux disease) Hypercholesterolemia Hypothyroid Traumatic pneumothorax 2017, chest tube x2 Surgical History History of ankle surgery S/P thoracostomy tube placement Social History Smoking/Tobacco Use Status: Current every day Tobacco Type: cigarettes Smoking risk assessment performed?: Yes Alcohol Intake: current Drug use: Daily Substance use type: marijuana Current gender identity: male Do you feel safe at home: Yes Do you feel safe in your relationship?: Yes Exam Narrative Exam Narrative: 1.Const: Well-nourished, Well-developed, appearing stated age 2.Eyes: PERRL, no conjunctival injection, and symmetrical lids. 3.ENT: Atraumatic external nose and ears. Moist MM. Neck: Symmetric, trachea midline, No thyromegaly. 4.CVS: +S1/S2, No murmurs or gallops. Peripheral pulses 2+ and equal in all extremities. Brisk capillary refill in all extremities. 5.RESP: Unlabored respiratory effort. Clear to auscultation bilaterally. No wheezes rales or rhonchi. No reproducible chest wall tenderness on palpation. No deformity. 6.GI: Soft, Nontender/Nondistended, No hepatosplenomegaly. No guarding or rebound. 7.MSK: Normocephalic/Atraumatic, Extremities w/o deformity or ttp No cyanosis or clubbing, Normal movement of all extremities 8.Skin: Warm, Dry. The patient's left posterior ribs just under the scapula demonstrate evidence of a mild rash similar to early shingles. Multiple small slightly erythematous lesions which is where the patient states that his itchiness and pain is. They are blanching, minimally raised. [place] in color. Entire diameter of the area is roughly 7 cm. Negative Nikolsky sign. No large vesicles or bulla. No palpable purpura. No oral lesions. No mucosal lesions. No evidence of severe cellulitis. No evidence of vaccine preventable rash. 9.Neuro: zoning technician II-XII grossly intact. Sensation grossly intact, no focal neurologic deficits. 10.Psych: (AAO) x3. Appropriate mood and affect
--- NOTE | 2020-08-23 15:31 | DI.RAD_ITS ---
EXAM: XR PORTABLE CHEST AP CLINICAL HISTORY: left rib pain, r/o pneumothorax TECHNIQUE: 2D digital imaging was performed. COMPARISON: CR,XR XR PORTABLE CHEST AP from 06/30/2020 FINDINGS: MEDIASTINUM: Normal. HEART: Normal. PULMONARY VASCULATURE: Normal. LUNGS: Stable parenchymal scarring. No acute infiltrates. PLEURAL SPACE: No pleural effusion or pneumothorax. BONE:Within normal limits for the patient's age. OTHER FINDINGS:Normal. IMPRESSION: No acute pulmonary findings. DATA REPOSITORY: RADIATION DOSE DELIVERED:
[2020-08-23] MEDS: Lidocaine 5% Patch 1 PATCH TP (15:36)
[2020-08-23] MEDS: Lidocaine 5% Patch 1 PATCH (16:27)
== END 2020-08-23 16:29 | disposition home or self-care (01) ==
PROVIDERS: Emergency Provider Student in an Organized Health Care Education/Training Program; PCP Nurse Practitioner
DX: B02.9 Zoster without complications (principal); R07.81 Pleurodynia
CPT/HCPCS: 93005; 99284; 71045; 93010; 99285

== ENCOUNTER 2020-09-12 14:33 | Emergency (ER) | payer MEDICAID, SELFPAY ==
[2020-09-12 14:43] VITALS: BP 118/85; PULSE 90; RESP 20; TEMP 36.6; O2SAT 96
--- NOTE | 2020-09-12 14:45 | DI.RAD_ITS ---
EXAM: XR HAND LT COMPLETE CLINICAL HISTORY: L thumb pain x 1 week. TECHNIQUE: 2D digital imaging was performed. COMPARISON: CR RIGHT LITTLE FINGER from 07/08/2013 FINDINGS: There is no evidence of acute fracture or dislocation. No radiopaque foreign body. Incidentally not ed is 5 millimeter bone lucent bone lesion in the tuft of the 4th finger distal phalanx which exhibit s a thin sclerotic border. It is not associated with complete bone dehiscence at this level. This m ay represent an epidural inclusion cysts, solitary bone cyst, or glomus tumor. IMPRESSION: DATA REPOSITORY: RADIATION DOSE DELIVERED:
--- NOTE | 2020-09-12 15:16 | DI.VRAD_ITS ---
PROCEDURE INFORMATION: Exam: XR Left Hand Exam date and time: 09/12/2020 2:46 PM Age: 54 years old Clinical indication: Other: Left thumb pain x 1 week TECHNIQUE: Imaging protocol: XR Left hand. Views: 3 or more views. COMPARISON: No relevant prior studies available. FINDINGS: Bones/joints: 5 mm diameter lucent bone cyst with a thin sclerotic margin within the tuft of the 4th distal phalanx. No acute fracture or dislocation. Soft tissues: Normal. IMPRESSION: 1. No acute findings. 2. Benign-appearing bone cyst within the tuft of the 4th distal phalanx. This may represent an epidermal inclusion cyst, solitary bone cyst, or glomus tumor. Dictated and Authenticated by: Sohan Andrews MD. Ordering:MARGA Sandvoal MD
--- NOTE | 2020-09-12 15:16 | ED.GENADUL_ITS ---
Discharge Plan Disposition Patient Disposition: HOME Condition: Stable Discharge Details Clinical Impression: Thumb injury Primary Care Provider: Fariba Forde ED Provider: Jaime Ballard Home Meds and New Rx's Prescriptions: Continued omeprazole 20 MG capsule,delayed release(DR/EC) 20 mg PO QAM RF: 0 magnesium oxide 400 mg (241.3 mg magnesium) tablet 400 mg PO QAM RF: 0 sennosides [senna] 8.6 mg Tablet 8.6 mg PO BID PRNRF: 0 sertraline 100 mg Tablet 100 mg PO DAILY RF: 0 hydroxyzine pamoate [Vistaril] 25 mg Capsule 25 mg PO BID RF: 0 capsaicin 0.025 % adhesive patch,medicated 1 patch topical TID Qty: 10 RF: 0 trazodone 50 mg tablet 50 mg PO HS RF: 0 olanzapine 5 mg tablet 5 mg PO DAILY RF: 0 melatonin 3 mg tablet 6 mg PO HS RF: 0 pravastatin 20 mg tablet 20 mg PO HS RF: 0 levothyroxine 88 mcg Tablet 88 mcg PO DAILY RF: 0 prazosin 2 mg Capsule 2 mg PO QHS RF: 0 Discharge Instructions Instructions: Swollen Joint (ED) Additional Instructions: X-ray did not show any obvious bony abnormality. Incidentally you did have a benign-appearing bony cyst likely discussed. Wear thumb splint as needed, adv ance activity as tolerated. Rest, elevate, cool compresses every 2 hours for 20 days. [id number] medication such as Tylenol and/or Motrin as directed for discomfort. Please watch for new or worsening symptoms and return to the ER for any concerns. Otherwise I would like you to contact your primary care provider and follow-up sometime in the next Discharge Data Discharge Date/Time-TO BE ENTERED AT DEPARTURE: 09/12/20 16:24 Medical Decision Making 54-year-old gentleman who is right-hand dominant presents with atraumatic left thumb pain for the past week or so. No evidence of obvious trauma, ecchymosis, joint, erythema, warmth, gout, rash elsewhere on the body or joint pain elsewhere. No fever. Clinically he appears well, nontoxic. Thumb is slightly tender throughout but there is no obvious deformity, swelling. 5 out of 5 strength. Neuro, vascular, tendon intact. Will obtain x-ray and reassess. X-ray of hand reveals negative thumb, there is a bony cyst that was an incidental finding. Discussed x-ray findings with patient and the incidental cyst. He has no additional questions or concerns at this time. Will be placed into a thumb spica splint, continue NSAIDs, elevation, rest, cool compresses and outpatient follow-up with his primary care provider. Standard discharge and return precautions given. Medical Records Medical records reviewed: Yes I reviewed the patient's medical records. Imaging Data Radiologic Study: Attestation: I personally reviewed and interpreted this imaging study as follows: Imaging: X-Ray Radiologist's impression: Hand x-ray read as no acute findings. Benign- appearing bone cyst within the tuft of the fourth distal phalanx HPI General Mode of arrival: ambulatory . Date/Time Provider Initiated Documentation: 09/12/20 14:45 . Limitations to Documentation: no limitations . Information obtained by: patient . HPI Narrative: This is a 54-year-old male, [id number], presenting to the ER reporting a left thumb pain for approximately 1 week. He reports stiffness, mild to moderate pain, worse with movement, and mild swelling. Denies any obvious injury, numbness, tingling, weakness, skin rash, pain in any other joints, history of gout. He has tried [id number] NSAIDs with little relief. Patient has no additional questions or concerns at this time. Related Data Home Medications Medication Instructions Recorded Confirmed omeprazole 20 mg PO QAM 10/16/13 09/12/20 magnesium oxide 400 mg PO QAM 10/20/19 09/12/20 melatonin 6 mg PO HS 12/19/19 09/12/20 olanzapine 5 mg PO DAILY 12/19/19 09/12/20 pravastatin 20 mg PO HS 12/19/19 09/12/20 trazodone 50 mg PO HS 12/19/19 09/12/20 hydroxyzine pamoate [Vistaril] 25 mg PO BID 04/05/20 09/12/20 sennosides [senna] 8.6 mg PO BID PRN 04/05/20 09/12/20 sertraline 100 mg PO DAILY 04/05/20 09/12/20 levothyroxine 88 mcg PO DAILY 07/18/20 09/12/20 prazosin 2 mg PO QHS 07/18/20 09/12/20 capsaicin 1 patch TOPICAL TID #10 ea 08/23/20 Previous Rx's Medication Instructions Recorded capsaicin 1 patch TOPICAL TID #10 ea 08/23/20 Allergies Allergy/AdvReac Type Severity Reaction Status Date / Time Sulfa (Sulfonamide Allergy Severe Swelling/Ed Unverified 09/12/20 14:45 Antibiotics) jostin General Stated Complaint: Orthopedic ABA: 4 Review of Systems Constitutional Constitutional: Denies fever(s) and Denies weakness Musculoskeletal Musculoskeletal: Denies deformity, Denies arthralgias, Denies numbness, Reports stiffness and Denies tingling Integumentary/Breasts Skin/Breast: Denies erythema and Denies rash Neurologic Neurologic: Denies numbness, Denies tingling and Denies weakness PFSH Medical History Anxiety Bipolar disorder COPD (chronic obstructive pulmonary disease) GERD (gastroesophageal reflux disease) Hypercholesterolemia Hypothyroid Traumatic pneumothorax 2017, chest tube x2 Surgical History History of ankle surgery S/P thoracostomy tube placement Social History Smoking/Tobacco Use Status: Current every day Tobacco Type: cigarettes Smoking risk assessment performed?: Yes Alcohol Intake: current Drug use: Daily Substance use type: marijuana Current gender identity: male Do you feel safe at home: Yes Do you feel safe in your relationship?: Yes Exam Const General: cooperative, healthy appearing, comfortable and no acute distress Orientation: alert, awake and oriented x3 HENMT Head: normal to inspection, normocephalic and atraumatic Eyes General: appearance normal, both eyes and all related structures Conjunctivae: conjunctivae normal Neck Neck: normal visual inspection, trachea midline and supple Resp Effort & Inspection: normal respiratory effort and able to speak in complete sentences Cardio Rate: regular rate Rhythm: regular rhythm Skin General skin exam: no rashes or lesions noted Neuro General: patient alert, patient awake, moves all extremities and no focal motor deficits Cognition: normal cognition Speech: speech normal Gait: normal gait Motor: muscle tone normal throughout Sensory Exam: no sensory deficits noted Extrem General: normal to inspection, full ROM and capillary refill normal Other: Left upper extremity shoulder, elbow, forearm, wrist all unremarkable. There is diffuse mild discomfort over the entire left thumb. There is no obvious swelling, erythema, warmth, bony point tenderness, deformity, ecchymosis. Normal radial pulse and capillary refill. 5/5 strength. Psych Appearance: grossly normal Mental Status: mental status grossly normal Course Vital Signs Vital signs: Vital Signs Temperature 36.6 C 09/12/20 14:43 Pulse 90 09/12/20 14:43 Respiratory Rate 20 09/12/20 14:43 Blood Pressure 118/85 09/12/20 14:43 Pulse Oximetry 96 09/12/20 14:43 Temperature 36.6 C 09/12/20 14:43 Temperature Source Skin 09/12/20 14:43 Pulse 90 09/12/20 14:43 Respiratory Rate 20 09/12/20 14:43 Respiratory Effort Non-Labored 09/12/20 14:46 Blood Pressure 118/85 09/12/20 14:43 Blood Pressure Position Sitting 09/12/20 14:43 Pulse Oximetry 96 09/12/20 14:43 Oxygen Delivery Method Room Air 09/12/20 14:43 Oxygen Flow Rate 0 09/12/20 14:43 Pain Level 6 09/12/20 14:43
== END 2020-09-12 16:24 | disposition home or self-care (01) ==
PROVIDERS: Emergency Provider Physician Assistant; PCP Nurse Practitioner
DX: M79.645 Pain in left finger(s) (principal); M85.441 Solitary bone cyst, right hand
CPT/HCPCS: 29125; 99283; 73130

== ENCOUNTER 2020-09-23 17:23 | Inpatient (IN) | payer MEDICAID, SELFPAY ==
[2020-09-23 17:30] VITALS: BP 139/90; PULSE 91; RESP 16; TEMP 36.6; O2SAT 96
--- NOTE | 2020-09-23 17:40 | ED.GENADUL_ITS ---
Discharge Plan Disposition Patient Disposition: HOME Condition: Improving Discharge Details Chief Complaint: PsychEval Clinical Impression: Depression with suicidal ideation Primary Care Provider: Fariba Forde ED Provider: Jagdish Aleman Home Meds and New Rx's Prescriptions: No Action omeprazole 20 MG capsule,delayed release(DR/EC) 20 mg PO QAM RF: 0 magnesium oxide 400 mg (241.3 mg magnesium) tablet 400 mg PO QAM RF: 0 sennosides [senna] 8.6 mg Tablet 8.6 mg PO BID PRNRF: 0 sertraline 100 mg Tablet 100 mg PO DAILY RF: 0 hydroxyzine pamoate [Vistaril] 25 mg Capsule 25 mg PO BID RF: 0 capsaicin 0.025 % adhesive patch,medicated 1 patch topical TID Qty: 10 RF: 0 trazodone 50 mg tablet 50 mg PO HS RF: 0 olanzapine 5 mg tablet 5 mg PO DAILY RF: 0 melatonin 3 mg tablet 6 mg PO HS RF: 0 pravastatin 20 mg tablet 20 mg PO HS RF: 0 levothyroxine 88 mcg Tablet 88 mcg PO DAILY RF: 0 prazosin 2 mg Capsule 2 mg PO QHS RF: 0 Medical Decision Making 54-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 He has had increased depressive symptoms with thoughts of taking overdose of his own medications over days time. Arrives to the ER afebrile, interactive. Screening medical examination including laboratory analysis performed. Patient is well-known to his community resource team who brought him to the ER today. He has history of previous admissions to the [facility]. A patient corporate safety coordinator was ordered to the bedside. Laboratories today consistent with previous with mildly elevated white blood cell count, TSH. Patient has history of hypothyroidism. Patient evaluated by on-call crisis screener, he has agreed to voluntary psychiatric admission. He had initially been hording the medication he planned to overdose on which he subsequently released to the correctional security officer. Patient will be admitted to Psychiatric Holding area pending further psychiatric disposition. Lab Data Lab results reviewed: Yes I reviewed the patient's lab results. Labs: Laboratory Results - last 24 hr 09/23/20 09/23/20 09/23/20 17:42 18:02 18:02 WBC RBC Hgb Hct MCV MCH MCHC RDW Plt Count MPV Immature Gran % Neutrophils % Lymphocytes % Monocytes % Eosinophils % Basophils % Nucleated RBC % Absolute Neutrophils Absolute Lymphocytes Absolute Monocytes Absolute Eosinophils Absolute Basophils Sodium 136 Potassium 3.6 Chloride 101 Carbon Dioxide 25.2 Anion Gap 9.8 BUN 17 Creatinine 1.1 Estimated GFR/1.73 m2 >= 60.00 Glucose 132 H Calcium 9.4 Total Bilirubin 0.4 AST 24 ALT 37 Alkaline Phosphatase 114 Total Protein 8.4 H Albumin 4.1 TSH 6.45 H Salicylates 5.7 Acetaminophen < 2 Ethyl Alcohol 3.9 COVID-19 Source Nasopharyx 09/23/20 18:02 WBC 13.26 H RBC 5.64 Hgb 15.4 Hct 46.7 MCV 82.8 MCH 27.3 MCHC 33.0 RDW 13.9 Plt Count 225 MPV 10.7 Immature Gran % 0.5 Neutrophils % 73.2 Lymphocytes % 20.1 Monocytes % 4.7 Eosinophils % 1.0 Basophils % 0.5 Nucleated RBC % 0 Absolute Neutrophils 9.71 H Absolute Lymphocytes 2.67 Absolute Monocytes 0.62 Absolute Eosinophils 0.13 Absolute Basophils 0.07 Sodium Potassium Chloride Carbon Dioxide Anion Gap BUN Creatinine Estimated GFR/1.73 m2 Glucose Calcium Total Bilirubin AST ALT Alkaline Phosphatase Total Protein Albumin TSH Salicylates Acetaminophen Ethyl Alcohol COVID-19 Source HPI General Mode of arrival: ambulatory . Date/Time Provider Initiated Documentation: 09/23/20 17:27 . Limitations to Documentation: no limitations . Information obtained by: patient . History of Present Illness 54 year old M presents to the emergency department with the chief complaint of Depression and suicidal ideation, described as moderate and similar to prior episodes, Quality is described as constant, Patient reports no radiation. Patient started experiencing this day(s) and it has been constant. No relieving factors improve symptom(s), No exacerbating factors reported . Patient notes no other symptoms.. Patient did receive the following treatments prior to arrival, none Related Data Home Medications Medication Instructions Recorded Confirmed omeprazole 20 mg PO QAM 10/16/13 09/23/20 magnesium oxide 400 mg PO QAM 10/20/19 09/23/20 melatonin 6 mg PO HS 12/19/19 09/23/20 olanzapine 5 mg PO DAILY 12/19/19 09/23/20 pravastatin 20 mg PO HS 12/19/19 09/23/20 trazodone 50 mg PO HS 12/19/19 09/23/20 hydroxyzine pamoate [Vistaril] 25 mg PO BID 04/05/20 09/23/20 sennosides [senna] 8.6 mg PO BID PRN 04/05/20 09/23/20 sertraline 100 mg PO DAILY 04/05/20 09/23/20 levothyroxine 88 mcg PO DAILY 07/18/20 09/23/20 prazosin 2 mg PO QHS 07/18/20 09/23/20 capsaicin 1 patch TOPICAL TID #10 ea 08/23/20 09/23/20 Previous Rx's Medication Instructions Recorded capsaicin 1 patch TOPICAL TID #10 ea 08/23/20 Allergies Allergy/AdvReac Type Severity Reaction Status Date / Time Sulfa (Sulfonamide Allergy Severe Swelling/Ed Unverified 09/23/20 17:38 Antibiotics) jostin General Stated Complaint: PsychEval ABA: 2 Review of Systems Narrative: 6 systems reviewed and otherwise negative [facility] Medical History Anxiety Bipolar disorder COPD (chronic obstructive pulmonary disease) GERD (gastroesophageal reflux disease) Hypercholesterolemia Hypothyroid Traumatic pneumothorax 2016, chest tube x2 Surgical History History of ankle surgery S/P thoracostomy tube placement Social History Smoking/Tobacco Use Status: Current every day Tobacco Type: cigarettes Smoking risk assessment performed?: Yes Alcohol Intake: current Drug use: Daily Substance use type: marijuana Current gender identity: male Do you feel safe at home: Yes Do you feel safe in your relationship?: Yes Exam Narrative Exam Narrative: GEN: awake, alert. Pleasant, well groomed, interactive. HEAD: Normocephalic, atraumatic ENT: Mucous membranes moist, oropharynx unremarkable, External ear exam unremarkable EYES: PERRL, EOMI NECK: Full ROM, no ELLIS, no menigismus CHEST/RESP: Nontender, clear to auscultation bilateral, no wheeze/rhonchi/rales CARDIOVASCULAR: RRR, no murmur, rub jose. 2+ Rad pulse bilateral ABDOMEN: Soft, nontender, no mass. +Bowel sounds EXT: Full ROM, no edema, no rash Neuro: Grossly normal neurologic exam, conversant, interactive. Psych: Speech fluent, thoughts congruent, affect flat Course Vital Signs Vital signs: Vital Signs Temperature 36.6 C 09/23/20 17:30 Pulse 91 H 09/23/20 17:30 Respiratory Rate 16 09/23/20 17:30 Blood Pressure 139/90 09/23/20 17:30 Pulse Oximetry 96 09/23/20 17:30 Temperature 36.6 C 09/23/20 17:30 Temperature Source Skin 09/23/20 17:30 Pulse 91 H 09/23/20 17:30 Respiratory Rate 16 09/23/20 17:30 Respiratory Effort Non-Labored 09/23/20 17:30 Blood Pressure 139/90 09/23/20 17:30 Blood Pressure Position Sitting 09/23/20 17:30 Pulse Oximetry 96 09/23/20 17:30 Pain Level 5 09/23/20 17:30 Comment 09/23/20 17:30
[2020-09-23 18:28] LABS: Abs Immature Grans 0.06 10^3/uL (0.0-0.06); Absolute Eosinophil Count 0.13 10^3/uL (0.0-0.7); Absolute Monocyte Count 0.62 10^3/uL (0.1-0.8); Basophils % 0.5; HCT 46.7 % (40.0-50.0); HGB 15.4 g/dL (13.5-17.5); Immature Grans % 0.5; Lymphocytes % 20.1; MCH 27.3 pg (27.0-33.0); MCV 82.8 fL (80-95); MPV 10.7 fL (8.0-11.0); Monocytes % 4.7; Neutrophils % 73.2; Nucleated RBC 0 %; Platelet Count 225 10^3/uL (130-400); RBC 5.64 10^6/uL (4.36-5.78); RDW 13.9 % (11.8-14.1); RDW-SD 42.1 fL; WBC 13.26 10^3/uL (4.4-10.8)
[2020-09-23 18:30] LABS: ALT 37 U/L (16-63); AST 24 U/L (15-37); Albumin 4.1 g/dL (3.4-5.0); Alkaline Phosphatase 114 U/L (46-116); Anion Gap 9.8 mmol/L (3-11); BUN 17 mg/dL (7-18); Bilirubin, Total 0.4 mg/dL (0.2-1.0); CO2 25.2 mmol/L (21.0-32.0); CREATININE 1.1 mg/dL (0.70-1.30); Calcium 9.4 mg/dL (8.5-10.1); Chloride 101 mmol/L (98-107); ETHANOL BLOOD 3.9 mg/dL (<3); Glucose 132 mg/dL (74-106); Potassium 3.6 mmol/L (3.5-5.1); Sodium 136 mmol/L (136-145); TSH 6.45 uIU/mL (0.36-3.74); Total Protein 8.4 g/dL (6.4-8.2)
[2020-09-23 18:33] LABS: Absolute Basophil Count 0.07 10^3/uL (0.0-0.2); Absolute Lymphocyte Count 2.67 10^3/uL (1.2-3.4); Absolute Neutrophil Count 9.71 10^3/uL (1.2-6.7)
[2020-09-23 18:36] LABS: COVID-19 PCR Negative (Negative)
[2020-09-23 18:39] LABS: Salicylate 5.7 mg/dL (<2.8)
[2020-09-23 18:45] LABS: Acetaminophen < 2 ug/mL (10-30)
--- NOTE | 2020-09-23 20:34 | PDOC.CMSAFED ---
- If Service Date Differs Date of service: 09/23/20 Time of Service: 20:39 Care Management Safety Plan Status: Voluntary Safety plan has been established to meet the needs of the patient, and consideration of the care team, to adhere to patient goals, identify restrictions based on behavioral status, address nutrition, and determine allowed personal belongings, tools for hygiene and personal care. Determine level of activity including ambulation, level of supervision, visitors, and determine privileges based on behaviors and level of engagement by pt. SAFETY PLAN: 1. May remain in own clothes after wanding by per RN discretion. 2. Will remain in room under direct supervision of one-on-one staff at all times provided by [employer], [employer], COMMERCIAL RETOUCHER decontamination worker. 3. May have paper cups, plates, finger foods as well as a cardboard spoon 4. Follow [facility] Management of the Admitted Behavioral Health Patient policy. 5. Comfort bath system only. 6. No personal belongings except personal phone, and glasses at nursing discretion. 7. Visitors: none at this time 8. Activities: permitted television and remote (to be kept with [employer]) at nursing discretion. Soft items from activity cart at nursing discretion. 9. Bathroom available in room without limitation. 10. Phone: may keep and use personal phone at nursing discretion. Staff will provide de-escalation support (CPI) as needed. If patient wishes to leave [facility], staff will contact [facility] Crisis Screener ([phone]) and On-Call Writing Manager ([phone]) as soon as possible. In the event of elopement, notify [facility] Police ([phone]). Patient is currently voluntarily at [facility]. [facility] Frontline Securities Analyst will continue seeking placement. Please contact the Catalogue Maker Writing Manager ([phone]) for any needed changes to Safety Plan. Safety plan has been provided to interdepartmental care team. Patient will be transported by machine repairer at time of discharge.
[2020-09-23 20:49] LABS: Bilirubin Negative (Negative); Blood Negative (Negative); Clarity Clear (Clear); Glucose Negative (Negative); Ketones Negative (Negative); Leukocyte Esterase Negative (Negative); Nitrite Negative (Negative); Specific Gravity 1.025 (1.005-1.025); Urobilinogen 0.2 EU/dL (Up TO 0.2)
[2020-09-23 20:55] VITALS: BP 139/96; PULSE 83; RESP 18; TEMP 37.1; O2SAT 96
[2020-09-23 21:04] VITALS: BP 139/96; PULSE 83; RESP 18; TEMP 37.1; O2SAT 96
[2020-09-23 21:06] LABS: *AMPHETAMINES SCREEN URINE Negative (Negative); *BARBITURATES SCREEN URINE Negative (Negative); *BENZODIAZEPINES SCREEN URINE Negative (Negative); Cannabinoids THC Positive (Negative); Cocaine Screen,Urine Negative (Negative); METHADONE URINE SCREEN Negative (Negative); OPIATES URINE SCREEN Negative (Negative)
[2020-09-23 21:07] LABS: Tricyclic Antidepressants Negative (Negative)
--- NOTE | 2020-09-23 22:32 | PDOC.MHCN ---
Date of service: 09/23/20 Time of Service: 22:32 Mental Health Crisis Note Presenting Issue How did you arrive at the ED and why did you come: The client presents to [facility] ED accomapnied by his FIRMWARE MANAGER disbursing agent Ozzy with complaint of worsening depressive symptoms and suicidal ideation involving overdose of prescribed medications. Presentation similar to prior episodes involving SI. Precipitating Factors Client presented in casual attire with disheveled appearance and poor general hygiene. He was fully alert and oriented to time, person, place, and global circumstance with no deficits in memory noted. Eye contact excellent. Behavior was initially escalated, otherwise cooperative and appropriate during interactions with gradual de-escalation at assessment conclusion. Speech coherent, normal rate and tone. Mood reported as I'm feeling depressed. I can't deal with this stuff anymore. with anxious/depressed affect. Client exhibited mildly paranoid thought process with perseveration of recurrent interpersonal conflict with his apartment neighbors, reporting that My neighbors are trailer park tra and I'm tired of their shit. They don't care of their kids and something ought to be done. No evidence or report of delusions or hallucinations. Client complained of worsening depressive symptoms and persistent thoughts of wanting to end his life with proposed method of prescription medication overdose. He divulged plan of stockpiling medications over the past several weeks with intent to overdose. He did not report a specific time or place, only stating that Whenever. Undetermined. Client produced plastic bag containing pills when asked and reluctantly agreed to turn over the contents to attending nurse after assessment. He went on to report ongoing difficulties coping with his cancer diagnosis and inability to deal with the associated stress. He did not identify any specific deterrents and when asked how he could be better supported, he stated that Give me a humane fucking . Nothing is going right and I can't fix it. Client reported HI, stating that I'd take them out. Just towards my neighbors. They're assholes and they aren't taking are of those kids., but did not endorse intent or plan at time of assessment. Client was agreeable to a voluntary in-patient referral, stating that I just need a some time to sort myself out. Disposition BEHAVIOR: Mildly escalated during initial interaction, otherwise appropriate and cooperative EYE CONTACT: Excellent MOOD: I'm feeling depressed. I can't deal with this stuff anymore. AFFECT: Anxious/depressed APPETITE: Poor SLEEP(trouble falling/staying asleep: Dysregulated Plan The client will be referred for voluntary in-patient placement and has agreed to remain at [facility] until suitable placement location can be secured or acuity level decreases to where he can be safely discharged back to the community. Information faxed to: [facility], [facility]. If the client attempts to leave A, an additional evaluation may be needed to determine lethality risk. This has been communicated to [facility] staff and [facility]. Signature Clinician's Name/Title: Jimy Soto [facility] clinician / HP
--- NOTE | 2020-09-23 23:03 | W.PM.HP.N ---
Date of service: 09/23/20 Time of Service: 23:03 Assessment and Plan Assessment and plan (1) Depression with suicidal ideation: Status: Acute Assessment and plan: Asim has a history of BPAD and is currently in a depressive episode with active suicidal ideation. He has no significant active medical issues. He will be admitted to observe with 1:1 observation until psychiatric placement can be found. I encouraged him to take his regular medication. He isn't sure he wants to, but agreed to consider. (2) Hypothyroid: Status: Chronic Assessment and plan: TSH slightly high c/w missed doses. I will not change dose. Qualifiers: Hypothyroidism type: acquired Qualified Code(s): E03.9 - Hypothyroidism, unspecified (3) Leukocytosis: Status: Chronic Assessment and plan: mild, chronic issue. I do not see signs of infection. No intervention (4) DVT prophylaxis: Status: Acute Assessment and plan: Given his age and decreased in physical activity I have written for LMWH if he is willing to take it. (5) Discharge planning issues: Status: Acute Assessment and plan: Asim is on voluntary psych hold pending a bed at a psychiatric facil. He is full code. History of Present Illness History of Present Illness Chief Complaint: depression Narrative: 54 yo M with history of bipolar disorder and multiple admissions for suicidal ideation presenting with progressive depression and thoughts of overdose today, brought in by community resource team for safety. Patient states he has not been taking his medicaitons, which are delivered daily, for the past four days. He denies side effects, states he decided fuck it. He told crisis team he was saving up his medications to attempt overdose. He still feels like he does not want to live right now. No new stressors or changes in medications. He was evaluated by crisis screener and agreed to voluntary admission. Review of Systems Constitutional Constitutional: Denies anorexia, Denies chills, Denies fever(s) and Denies weakness Eyes Eyes: Denies change in vision, Denies irritation and Denies eye pain ENT Ears, Nose, Mouth, and Throat: Denies dizziness, Denies nasal congestion, Denies nasal discharge and Denies sore throat Cardiovascular Cardiovascular: Denies chest pain, Denies palpitations and Denies orthopnea Respiratory Respiratory: Denies cough, Denies excessive phlegm production and Denies wheezing Gastrointestinal Gastrointestinal: Denies abdominal pain, Denies constipation, Denies heartburn, Denies diarrhea and Denies vomiting Genitourinary Genitourinary: Denies hematuria, Denies dysuria and Denies urinary incontinence Musculoskeletal Musculoskeletal: Denies arthralgias Integumentary/Breasts Skin/Breast: Denies rash and Denies skin ulcer Neurologic Neurologic: Denies dizziness, Denies sensory deficit and Denies weakness Psychiatric Psychiatric: Reports depression, Denies visual hallucinations, Denies hallucinations, Denies homicidal ideation and Reports suicidal ideation Endocrine Endocrine: Denies palpitations Hematologic/Lymphatic Hematologic/Lymphatic: Denies easy bleeding Allergic/Immunologic Allergic/Immunologic: Denies wheezing PFSH Medical History Anxiety Bipolar disorder COPD (chronic obstructive pulmonary disease) GERD (gastroesophageal reflux disease) Hypercholesterolemia Hypothyroid Traumatic pneumothorax 2016, chest tube x2 Surgical History History of ankle surgery S/P thoracostomy tube placement Social History (Updated 09/23/20 @ 23:12 by Chung Perry) Smoking/Tobacco Use Status: Current every day Tobacco Type: cigarettes Smoking risk assessment performed?: Yes Alcohol Intake: never Drug use: Daily Substance use type: marijuana Current gender identity: male Do you feel safe at home: Yes Do you feel safe in your relationship?: Yes Additional Social history: lives in his own apartment in [place]. not working. Meds Allergies and Home Medications Allergies Allergy/AdvReac Type Severity Reaction Status Date / Time Sulfa (Sulfonamide Allergy Severe Swelling/Ed Unverified 09/23/20 17:38 Antibiotics) jostin Home Medications Medication Instructions Recorded Confirmed Type omeprazole 20 mg PO QAM 10/16/13 09/23/20 History magnesium oxide 400 mg PO QAM 10/20/19 09/23/20 History melatonin 6 mg PO HS 12/19/19 09/23/20 History olanzapine 5 mg PO DAILY 12/19/19 09/23/20 History pravastatin 20 mg PO HS 12/19/19 09/23/20 History trazodone 50 mg PO HS 12/19/19 09/23/20 History hydroxyzine pamoate [Vistaril] 25 mg PO BID 04/05/20 09/23/20 History sennosides [senna] 8.6 mg PO BID PRN 04/05/20 09/23/20 History sertraline 100 mg PO DAILY 04/05/20 09/23/20 History levothyroxine 88 mcg PO DAILY 07/18/20 09/23/20 History prazosin 2 mg PO QHS 07/18/20 09/23/20 History capsaicin 1 patch TOPICAL TID #10 ea 08/23/20 09/23/20 Rx Exam Narrative Exam Narrative: GEN: Alert and oriented, somewhat irritable but cooperative with exam, gives terse history. No acute distress at rest. HEENT: Head atraumatic. Conjunctiva clear, no icterus. PEERL (2-3mm in room light), EOMI. no rhinorrhea. MMM, OP benign. Neck is supple with no masses or lymphadenopathy LUNGS: CTAB x very sleight wheeze posteriorly in mid lung field, normal effort CV: RRR with no murmurs, gallops, or rubs. ABD: +BS, soft, NT/ND EXT: no cyanosis, clubbing, or edema MSK: No joint redness or swelling NEURO: CN 2-12 grossly intact. Normal movement of 4 extremities. Normal speech and coordination. DTRs 2+ lina SKIN: No rashs or open wounds. PSYCH: mood and affect depressed, appears pained. No AH/VH. Results Labs Result diagrams: 09/23/20 18:02 09/23/20 18:02 Labs: Laboratory Results - last 24 hr 09/23/20 09/23/20 09/23/20 17:42 18:02 18:02 WBC RBC Hgb Hct MCV MCH MCHC RDW Plt Count MPV Immature Gran % Neutrophils % Lymphocytes % Monocytes % Eosinophils % Basophils % Nucleated RBC % Absolute Neutrophils Absolute Lymphocytes Absolute Monocytes Absolute Eosinophils Absolute Basophils Sodium 136 Potassium 3.6 Chloride 101 Carbon Dioxide 25.2 Anion Gap 9.8 BUN 17 Creatinine 1.1 Estimated GFR/1.73 m2 >= 60.00 Glucose 132 H Calcium 9.4 Total Bilirubin 0.4 AST 24 ALT 37 Alkaline Phosphatase 114 Total Protein 8.4 H Albumin 4.1 TSH 6.45 H Urine Color Urine Clarity Urine pH Ur Specific Bandon Urine Protein Urine Ketones Urine Blood Urine Nitrite Urine Bilirubin Urine Urobilinogen Ur Leukocyte Esterase Urine Glucose Salicylates 5.7 Urine Opiates Screen Urine Methadone Screen Acetaminophen < 2 Ur Barbiturates Screen Ur Tricyclics Screen Ur Amphetamines Screen U Benzodiazepines Scrn Urine Cocaine Screen Ur THC Screen Ethyl Alcohol 3.9 COVID-19 Source Nasopharyx SARS-CoV-2 (PCR) Negative 09/23/20 09/23/20 09/23/20 18:02 20:07 20:07 WBC 13.26 H RBC 5.64 Hgb 15.4 Hct 46.7 MCV 82.8 MCH 27.3 MCHC 33.0 RDW 13.9 Plt Count 225 MPV 10.7 Immature Gran % 0.5 Neutrophils % 73.2 Lymphocytes % 20.1 Monocytes % 4.7 Eosinophils % 1.0 Basophils % 0.5 Nucleated RBC % 0 Absolute Neutrophils 9.71 H Absolute Lymphocytes 2.67 Absolute Monocytes 0.62 Absolute Eosinophils 0.13 Absolute Basophils 0.07 Sodium Potassium Chloride Carbon Dioxide Anion Gap BUN Creatinine Estimated GFR/1.73 m2 Glucose Calcium Total Bilirubin AST ALT Alkaline Phosphatase Total Protein Albumin TSH Urine Color Yellow Urine Clarity Clear Urine pH 6.0 Ur Specific Bandon 1.025 Urine Protein Negative Urine Ketones Negative Urine Blood Negative Urine Nitrite Negative Urine Bilirubin Negative Urine Urobilinogen 0.2 Ur Leukocyte Esterase Negative Urine Glucose Negative Salicylates Urine Opiates Screen Negative Urine Methadone Screen Negative Acetaminophen Ur Barbiturates Screen Negative Ur Tricyclics Screen Negative Ur Amphetamines Screen Negative U Benzodiazepines Scrn Negative Urine Cocaine Screen Negative Ur THC Screen Positive A Ethyl Alcohol COVID-19 Source SARS-CoV-2 (PCR) Last Vital Signs Temp 37.1 C 09/23/20 21:04 Pulse 83 09/23/20 21:04 Resp 18 09/23/20 21:04 BP 139/96 H 09/23/20 21:04 Pulse Ox 96 09/23/20 21:04 COVID-19 Screening Have you, or household traveled for leisure in last 14 days?: No Had IN PERSON contact w/suspected or confirmed C-19 person: No
[2020-09-24] MEDS: Levothyroxine 88 MCG TAB PO (05:42)
[2020-09-24 07:54] VITALS: BP 136/88; PULSE 86; RESP 18; TEMP 36.6; O2SAT 96
[2020-09-24] MEDS: OLANZapine 5 MG TAB PO (07:58)
[2020-09-24] MEDS: Sertraline 50 MG TAB 100 MG PO (07:58)
[2020-09-24] MEDS: Magnesium Oxide 400 MG TAB PO (07:58)
--- NOTE | 2020-09-24 10:46 | DSE_ITS ---
Date of service: 09/24/20 Time of Service: 10:46 DS: Diagnosis Discharge Diagnosis (1) Depression with suicidal ideation: Start date: 09/24/20 Start time: 10:46 Status: Acute Asessment and Plan: Patient voluntary, evaluated by MH, being discharged home followed by [facility] and [facility]. They will monitor him in the community (2) Hypothyroid: Start date: 09/24/20 Start time: 10:47 Status: Chronic Asessment and Plan: slightly high but he has missed doses, will not change dose, encourage taking medications (3) Leukocytosis: Start date: 09/24/20 Start time: 10:49 Status: Chronic Asessment and Plan: Appears to be baseline, could be due to possible lung ca, though he does not want a biopsy to confirm because he does not want treatment. above case discussed with Dr. Omer Discharge Plan Disposition Patient Disposition: HOME Condition: Stable Discharge Details Reason For Visit: Depression Admit Date/Time: 09/23/20 20:03 Admit Provider: Chung Perry Attending Provider: Chung Perry Primary Care Provider: Fariba Forde Hospital Course Hospital Course: 54 yo M with history of bipolar disorder and multiple admissions for suicidal ideation presenting with progressive depression and thoughts of overdose today, brought in by community resource team for safety. Today he is feeling a little better, redirected without issues. He is being discharged home in the care [facility] and [facility]. He will followed at home with medication monitoring. He denies CP, SOB, N/v/D. Home Meds and New Rx's Prescriptions: Continued omeprazole 20 MG capsule,delayed release(DR/EC) 20 mg PO QAM RF: 0 magnesium oxide 400 mg (241.3 mg magnesium) tablet 400 mg PO QAM RF: 0 sennosides [senna] 8.6 mg Tablet 8.6 mg PO BID PRNRF: 0 sertraline 100 mg Tablet 100 mg PO DAILY RF: 0 hydroxyzine pamoate [Vistaril] 25 mg Capsule 25 mg PO BID RF: 0 capsaicin 0.025 % adhesive patch,medicated 1 patch topical TID Qty: 10 RF: 0 trazodone 50 mg tablet 50 mg PO HS RF: 0 olanzapine 5 mg tablet 5 mg PO DAILY RF: 0 melatonin 3 mg tablet 6 mg PO HS RF: 0 pravastatin 20 mg tablet 20 mg PO HS RF: 0 levothyroxine 88 mcg Tablet 88 mcg PO DAILY RF: 0 prazosin 2 mg Capsule 2 mg PO QHS RF: 0 Discharge Instructions Instructions: Depression (DC), Anxiety (DC) Additional Instructions: Follow up with [facility] Take all your medications Stand Alone Forms: Nursing Discharge Form Activity:: Activity as Tolerated Equipment/Supplies:: No Equipment Needed Diet:: As Tolerated Discharge Orders Discharge Orders: Discharge Order (Routine); Ordered 09/24/20 Ordered By: Payal Landry DS: Summary Time Spent with Patient providing and/or coordinating discharge services: Less than 30 minutes (approx 25 mins) Status at Discharge Functional status at discharge: independent ambulation Overall status at discharge: patient is back to baseline Mental Status: mental status grossly normal Speech and Movement: speech and movement normal Mood: congruent mood Affect: animated Exam Narrative Exam Narrative: GEN: Alert and oriented, somewhat irritable but cooperative with exam, gives terse history. No acute distress at rest. HEENT: Head atraumatic. Conjunctiva clear, no icterus. PEERL (2-3mm in room light), EOMI. no rhinorrhea. MMM, OP benign. Neck is supple with no masses or lymphadenopathy LUNGS: CTAB x very sleight wheeze posteriorly in mid lung field, normal effort CV: RRR with no murmurs, gallops, or rubs. ABD: +BS, soft, NT/ND EXT: no cyanosis, clubbing, or edema MSK: No joint redness or swelling NEURO: CN 2-12 grossly intact. Normal movement of 4 extremities. Normal speech and coordination. DTRs 2+ lina SKIN: No rashs or open wounds. PSYCH: mood and affect depressed, appears pained. No AH/VH. Psych Mental Status: mental status grossly normal Speech and Movement: speech and movement normal Mood: congruent mood Affect: animated DS: Data Vitals/I&O Vitals and I&O: Vital Signs Temperature 36.6 C 09/24/20 07:54 Temperature Source Tympanic 09/24/20 07:54 Pulse 86 09/24/20 07:54 Pulse Rhythm Regular 09/24/20 09:35 Respiratory Rate 18 09/24/20 07:54 Respiratory Effort Non-Labored 09/24/20 09:35 Respiratory Depth Normal 09/24/20 09:35 Respiratory Pattern Normal 09/24/20 09:35 Blood Pressure 136/88 09/24/20 07:54 Blood Pressure Position Sitting 09/23/20 17:30 Pulse Oximetry 96 09/24/20 07:54 Oxygen Delivery Method Room Air 09/24/20 07:54 Oxygen Flow Rate 0 09/24/20 07:54 Pain Level 5 09/24/20 07:54 Comment 09/23/20 17:30 Intake & Output 09/23/20 09/23/20 09/24/20 11:59 23:59 11:59 Intake Total 180 / 180 500 / 500 Balance 180 / 180 500 / 500 Weight 80.7 kg Intake: Oral 180 / 180 500 / 500 Other: Urine Color Yellow Yellow Urine Appearance Clear Clear Urine Odor Normal Voiding Methods Toilet Toilet Data Completed and Pending Labs on day of discharge: Labs from last 24 hours 09/23/20 09/23/20 09/23/20 20:07 20:07 18:02 WBC 13.26 H RBC 5.64 Hgb 15.4 Hct 46.7 MCV 82.8 MCH 27.3 MCHC 33.0 RDW 13.9 Plt Count 225 MPV 10.7 Immature Gran % 0.5 Neutrophils % 73.2 Lymphocytes % 20.1 Monocytes % 4.7 Eosinophils % 1.0 Basophils % 0.5 Nucleated RBC % 0 Absolute Neutrophils 9.71 H Absolute Lymphocytes 2.67 Absolute Monocytes 0.62 Absolute Eosinophils 0.13 Absolute Basophils 0.07 Sodium Potassium Chloride Carbon Dioxide Anion Gap BUN Creatinine Estimated GFR/1.73 m2 Glucose Calcium Total Bilirubin AST ALT Alkaline Phosphatase Total Protein Albumin TSH Urine Color Yellow Urine Clarity Clear Urine pH 6.0 Ur Specific [place] 1.025 Urine Protein Negative Urine Ketones Negative Urine Blood Negative Urine Nitrite Negative Urine Bilirubin Negative Urine Urobilinogen 0.2 Ur Leukocyte Esterase Negative Urine Glucose Negative Salicylates Urine Opiates Screen Negative Urine Methadone Screen Negative Acetaminophen Ur Barbiturates Screen Negative Ur Tricyclics Screen Negative Ur Amphetamines Screen Negative U Benzodiazepines Scrn Negative Urine Cocaine Screen Negative Ur THC Screen Positive A Ethyl Alcohol COVID-19 Source SARS-CoV-2 (PCR) 09/23/20 09/23/20 09/23/20 18:02 18:02 17:42 WBC RBC Hgb Hct MCV MCH MCHC RDW Plt Count MPV Immature Gran % Neutrophils % Lymphocytes % Monocytes % Eosinophils % Basophils % Nucleated RBC % Absolute Neutrophils Absolute Lymphocytes Absolute Monocytes Absolute Eosinophils Absolute Basophils Sodium 136 Potassium 3.6 Chloride 101 Carbon Dioxide 25.2 Anion Gap 9.8 BUN 17 Creatinine 1.1 Estimated GFR/1.73 m2 >= 60.00 Glucose 132 H Calcium 9.4 Total Bilirubin 0.4 AST 24 ALT 37 Alkaline Phosphatase 114 Total Protein 8.4 H Albumin 4.1 TSH 6.45 H Urine Color Urine Clarity Urine pH Ur Specific [place] Urine Protein Urine Ketones Urine Blood Urine Nitrite Urine Bilirubin Urine Urobilinogen Ur Leukocyte Esterase Urine Glucose Salicylates 5.7 Urine Opiates Screen Urine Methadone Screen Acetaminophen < 2 Ur Barbiturates Screen Ur Tricyclics Screen Ur Amphetamines Screen U Benzodiazepines Scrn Urine Cocaine Screen Ur THC Screen Ethyl Alcohol 3.9 COVID-19 Source Nasopharyx SARS-CoV-2 (PCR) Negative [facility] Medical History Anxiety Bipolar disorder COPD (chronic obstructive pulmonary disease) GERD (gastroesophageal reflux disease) Hypercholesterolemia Hypothyroid Traumatic pneumothorax 2016, chest tube x2 Surgical History History of ankle surgery S/P thoracostomy tube placement Social History Smoking/Tobacco Use Status: Current every day Tobacco Type: cigarettes Smoking risk assessment performed?: Yes Alcohol Intake: never Drug use: Daily Substance use type: marijuana Current gender identity: male Do you feel safe at home: Yes Do you feel safe in your relationship?: Yes Additional Social history: lives in his own apartment in [place]. not working.
--- NOTE | 2020-09-24 15:27 | PDOC.CMPRO ---
- If Service Date Differs Date of service: 09/24/20 Time of Service: 15:27 Care Management Progress Note S/O: Asim was resting in bed when CM entered the room, but he quickly woke up and engaged in conversation with CM. He reported that he has still been having trouble with his neighbors downstairs, despite reporting them to police and DCF several times. He is very frustrated and feels that nothing is being done, and he expressed concern for the children and pets in the home. CM discussed how he can cope with his feelings, and stated that he did the right thing by reporting his concerns, and that the authorities will investigate, as that is their role. Asim discussed his newly diagnosed cancer with CM, reporting that he did go to [facility] to stage his cancer, which he stated was stage 1 on his right and stage 2 on his left. He stated that he does not plan to treat the cancer, and instead will let it take him. CM discussed Palliative Care with Asim, who can follow him and help him understand the progression of the disease. Asim was excited about some packages he is expecting to arrive this afternoon with a tablet and some movies that he ordered from [employer]. He stated that he needs to be home to accept the packages. Asim was screened by [facility] Villagran, and also Ozzy, from [facility] [employer]. They determined that Asim was safe to return home with close follow up from [employer]GER. CHANGE CONTROL MANAGER will check in with him via phone, and will have daily med drops and observed administration of medications. Ozzy [facility] [employer] MANAGER, will drive him home via private vehicle. He is happy to be going home. A: Asim is a 54 year old male admitted to [facility] on 09/23/20 with depression. P: Asim will return home with support from [facility] MANAGER. He will be driven home by Ozzy [facility]. He will have close follow up with CH[employer] CONTR[employer] MANAGER, who will observe daily medication administration, and will check in with him via phone. He will follow up with his PCP and discharge plan of care.
== END 2020-09-24 11:25 | disposition home or self-care (01) | DRG 885 ==
LOC: ER 20:18 → MS 20:57
PROVIDERS: Admitting Provider Family Medicine; Emergency Provider Emergency Medicine; PCP Nurse Practitioner; Visit Provider Family Medicine
DX: F31.9 Bipolar disorder, unspecified (principal); R45.851 Suicidal ideations; E03.9 Hypothyroidism, unspecified; Z20.822 Contact with and (suspected) exposure to COVID-19; D72.829 Elevated white blood cell count, unspecified; T43.596A Underdosing of other antipsychotics and neuroleptics, initial encounter; T43.216A Underdosing of selective serotonin and norepinephrine reuptake inhibitors, initial encounter; Z91.128 Patient's intentional underdosing of medication regimen for other reason; F17.210 Nicotine dependence, cigarettes, uncomplicated
CPT/HCPCS: 80053; 80307; 87635; 99285; J1650; 80320; 80329; 81003; 84443; 85025; 99238; 99283

== ENCOUNTER 2020-09-24 16:33 | Emergency (ER) | payer MEDICAID, SELFPAY ==
[2020-09-24 16:35] VITALS: PULSE 87; RESP 18; TEMP 36.5; O2SAT 94
--- NOTE | 2020-09-24 16:43 | ED.GENADUL_ITS ---
Discharge Plan Disposition Patient Disposition: HOME Condition: Stable Discharge Details Clinical Impression: Nausea Primary Care Provider: Fariba Forde ED Provider: Francisco Majano Home Meds and New Rx's Prescriptions: New ondansetron 4 mg tablet,disintegrating 4 mg PO Q8H PRN (Reason: nausea and vomiting) Qty: 7 RF: 0 Continued omeprazole 20 MG capsule,delayed release(DR/EC) 20 mg PO QAM RF: 0 magnesium oxide 400 mg (241.3 mg magnesium) tablet 400 mg PO QAM RF: 0 sennosides [senna] 8.6 mg Tablet 8.6 mg PO BID PRNRF: 0 sertraline 100 mg Tablet 100 mg PO DAILY RF: 0 hydroxyzine pamoate [Vistaril] 25 mg Capsule 50 mg PO BID RF: 0 trazodone 50 mg tablet 50 mg PO HS RF: 0 olanzapine 5 mg tablet 5 mg PO DAILY RF: 0 melatonin 3 mg tablet 6 mg PO HS RF: 0 pravastatin 20 mg tablet 20 mg PO HS RF: 0 levothyroxine 88 mcg Tablet 88 mcg PO DAILY RF: 0 prazosin 2 mg Capsule 2 mg PO QHS RF: 0 No Action olanzapine 5 mg tablet RF: 0 gabapentin 300 mg capsule 300 mg PO .QHS RF: 0 Discharge Instructions Instructions: Acute Nausea and Vomiting (ED) Additional Instructions: Please take your medication as prescribed. Maintain a clear liquid, nondairy diet, for the next 24 hours. Advance diet slowly to bland soft food thereafter. Please contact your primary care physician to arrange follow-up. Return to the ER for any worsening or new concerning symptoms. Referrals: Fariba Forde [Primary Care Provider] - Discharge Data Discharge Date/Time-TO BE ENTERED AT DEPARTURE: 09/24/20 17:14 Medical Decision Making 54-year-old male with bipolar disorder, lung cancer, here with nausea intermittently over the past 1 month. Patient has no focal findings on exam. Abdominal exam is benign. Of note, patient was here for homicidal ideation yesterday. He had diagnostic work-up including labs that revealed normal LFTs and electrolytes. He did have urinalysis positive for THC. I reviewed past medical record including EKG from 08/23/2020 revealed normal QTC. Ondansetron ODT was provided. Patient is tolerating p.o. fluid. I discussed with him bowel rest over the next couple days. Advised him to follow-up with his primary care physician. HPI General Mode of arrival: ambulatory . Date/Time Provider Initiated Documentation: 09/24/20 16:40 . Limitations to Documentation: no limitations . Information obtained by: patient . HPI Narrative: 54-year-old male with history of lung cancer, COPD, bipolar disorder, here with chief complaint of nausea. Patient notes moderate nausea intermittently over the past 1 month. He experienced an episode today. Symptoms moderate today with no modifiers. Patient has not called or spoke with his primary care physician about this issue. Patient denies associated abdominal pain. Patient states that he typically treats his nausea with a glass of milk. Related Data Home Medications Medication Instructions Recorded Confirmed omeprazole 20 mg PO QAM 10/16/13 09/30/20 magnesium oxide 400 mg PO QAM 10/20/19 09/30/20 melatonin 6 mg PO HS 12/19/19 09/30/20 olanzapine 5 mg PO DAILY 12/19/19 09/30/20 pravastatin 20 mg PO HS 12/19/19 09/30/20 trazodone 50 mg PO HS 12/19/19 09/30/20 hydroxyzine pamoate [Vistaril] 50 mg PO BID 04/05/20 09/30/20 sennosides [senna] 8.6 mg PO BID PRN 04/05/20 09/30/20 sertraline 100 mg PO DAILY 04/05/20 09/30/20 levothyroxine 88 mcg PO DAILY 07/18/20 09/30/20 prazosin 2 mg PO QHS 07/18/20 09/28/20 ondansetron 4 mg PO Q8H PRN #7 tab 09/24/20 09/30/20 gabapentin 300 mg PO .QHS 09/28/20 09/30/20 olanzapine mg 09/28/20 09/28/20 Previous Rx's Medication Instructions Recorded ondansetron 4 mg PO Q8H PRN #7 tab 09/24/20 Allergies Allergy/AdvReac Type Severity Reaction Status Date / Time Sulfa (Sulfonamide Allergy Severe Swelling/Ed Unverified 09/28/20 17:30 Antibiotics) jostin General Stated Complaint: Nausea/Vomit/Diar ABA: 4 Review of Systems All systems reviewed & are unremarkable except as noted in HPI and below Constitutional Constitutional: Denies fever(s) Cardiovascular Cardiovascular: Denies chest pain Gastrointestinal Gastrointestinal: Reports as per HPI Psychiatric Psychiatric: Denies homicidal ideation and Denies suicidal ideation [facility] Medical History Anxiety Bipolar disorder COPD (chronic obstructive pulmonary disease) GERD (gastroesophageal reflux disease) Hypercholesterolemia Hypothyroid Traumatic pneumothorax 2017, chest tube x2 Surgical History History of ankle surgery S/P thoracostomy tube placement Social History (Updated 10/01/20 @ 00:07 by Chung Perry) Smoking/Tobacco Use Status: Current every day Tobacco Type: cigarettes Smoking risk assessment performed?: Yes Alcohol Intake: never Drug use: Daily Substance use type: marijuana Current gender identity: male Do you feel safe at home: Yes Do you feel safe in your relationship?: Yes Additional Social history: Lives in a private apartment. Has [facility] case management Exam Const General: cooperative and no acute distress HENMT Mouth: moist mucous membranes Eyes Conjunctivae: normal conjunctivae Sclera: normal sclerae Neck Neck: trachea midline and supple Resp Auscultation: clear to auscultation bilaterally, no rales, no rhonchi and no wheezes Cardio Rate: regular rate and not tachycardic Rhythm: regular rhythm GI Palpation: soft, not firm, no guarding, no masses, not rigid and nontender Neuro General: patient alert, patient awake, patient oriented x3 and tone normal Extrem General: no edema Psych Appearance: grossly normal Mental Status: mental status grossly normal Speech and Movement: speech and movement normal Course Vital Signs Vital signs: Vital Signs Temperature 36.5 C 09/24/20 16:35 Pulse 87 09/24/20 16:35 Respiratory Rate 18 09/24/20 16:35 Pulse Oximetry 94 09/24/20 16:35 Temperature 36.5 C 09/24/20 16:35 Temperature Source Skin 09/24/20 16:35 Pulse 87 09/24/20 16:35 Respiratory Rate 18 09/24/20 16:35 Respiratory Effort Non-Labored 09/24/20 16:39 Blood Pressure Position Sitting 09/24/20 16:35 Pulse Oximetry 94 09/24/20 16:35 Oxygen Delivery Method Room Air 09/24/20 16:35 Oxygen Flow Rate 0 09/24/20 16:35 Pain Level 2 09/24/20 16:35
[2020-09-24] MEDS: Ondansetron O.D.T. 4 MG TABEF PO (16:46)
[2020-09-24 16:48] VITALS: BP 117/95; PULSE 96; O2SAT 97
== END 2020-09-24 17:14 | disposition home or self-care (01) ==
LOC: ER 16:44
PROVIDERS: Emergency Provider Student in an Organized Health Care Education/Training Program; PCP Nurse Practitioner
DX: R11.0 Nausea (principal)
CPT/HCPCS: 99283

== ENCOUNTER 2020-09-27 14:30 | Emergency (ER) | payer MEDICAID, SELFPAY ==
[2020-09-27 14:37] VITALS: BP 145/106; PULSE 90; RESP 18; TEMP 36.7; O2SAT 96
--- NOTE | 2020-09-27 14:49 | ED.GENADUL_ITS ---
Discharge Plan Disposition Patient Disposition: OTHER Discharge Details Chief Complaint: PsychEval Clinical Impression: Agitation Primary Care Provider: Fariba Forde ED Provider: Jaime Ballard Home Meds and New Rx's Prescriptions: No Action omeprazole 20 MG capsule,delayed release(DR/EC) 20 mg PO QAM RF: 0 magnesium oxide 400 mg (241.3 mg magnesium) tablet 400 mg PO QAM RF: 0 sennosides [senna] 8.6 mg Tablet 8.6 mg PO BID PRNRF: 0 sertraline 100 mg Tablet 100 mg PO DAILY RF: 0 hydroxyzine pamoate [Vistaril] 25 mg Capsule 25 mg PO BID RF: 0 capsaicin 0.025 % adhesive patch,medicated 1 patch topical TID Qty: 10 RF: 0 ondansetron 4 mg tablet,disintegrating 4 mg PO Q8H PRN (Reason: nausea and vomiting) Qty: 7 RF: 0 trazodone 50 mg tablet 50 mg PO HS RF: 0 olanzapine 5 mg tablet 5 mg PO DAILY RF: 0 melatonin 3 mg tablet 6 mg PO HS RF: 0 pravastatin 20 mg tablet 20 mg PO HS RF: 0 levothyroxine 88 mcg Tablet 88 mcg PO DAILY RF: 0 prazosin 2 mg Capsule 2 mg PO QHS RF: 0 Discharge Instructions Additional Instructions: Patient eloped Medical Decision Making This is a 54-year-old gentleman who presents to the ER by mental health evaluation. He states that he was in an argument with his girlfriend last night , is under increased stress, and does not like his neighbors. He denies any suicidal ideation or homicidal ideation but reports that he would like to fight his neighbors. He has no acute medical concerns or complaints at this time. He is requesting 1 mg of Ativan and a cup of coffee, will provide both of these. At this time it is not clear whether he will require hospitalization or not. I will not reflexively obtain laboratory values. Instead I will recommend first a mental health evaluation and based upon their decision making I will then obtain labs or not. Mental health evaluation was completed by Jagdish, please see his note. Patient is to be a voluntary placement. It was brought to my attention that the patient became agitated because he saw a staff member that he does not like. He apparently decided to go outside and smoke a cigarette, eloped from the ER. Patient has been a voluntary placement. I reached back out to mental health, Jaime, who was going to reach back out to Jagdish and his supervisors to determine whether or not the patient would become involuntary. I received a phone call back stating that the patient was free to elope from the ER and he was not going to be emergently involuntary. Medical Records Medical records reviewed: Yes I reviewed the patient's medical records. Lab Data Lab results reviewed: Yes I reviewed the patient's lab results. Labs: Laboratory Tests Range/Units 09/27/20 09/27/20 09/27/20 16:29 16:29 16:29 WBC (4.4-10.8) 10^3/uL 9.82 RBC (4.36-5.78) 10^6/uL 5.22 Hgb (13.5-17.5) g/dL 14.4 Hct (40.0-50.0) % 43.5 MCV (80-95) fL 83.3 MCH (27.0-33.0) pg 27.6 MCHC (32.0-36.0) % 33.1 RDW (11.8-14.1) % 14.0 Plt Count (130-400) 10^3/uL 194 MPV (8.0-11.0) fL 10.4 Immature Gran % 0.2 Neutrophils % 72.8 Lymphocytes % 20.0 Monocytes % 5.1 Eosinophils % 1.4 Basophils % 0.5 Nucleated RBC % % 0 Absolute Neutrophils (1.2-6.7) 10^3/uL 7.15 H Absolute Lymphocytes (1.2-3.4) 10^3/uL 1.96 Absolute Monocytes (0.1-0.8) 10^3/uL 0.50 Absolute Eosinophils (0.0-0.7) 10^3/uL 0.14 Absolute Basophils (0.0-0.2) 10^3/uL 0.05 Sodium (136-145) mmol/L 137 Potassium (3.5-5.1) mmol/L 3.8 Chloride (98-107) mmol/L 103 Carbon Dioxide (21.0-32.0) mmol/L 22.2 Anion Gap (3-11) mmol/L 11.8 H BUN (7-18) mg/dL 21 H Creatinine (0.70-1.30) mg/dL 0.8 Estimated GFR/1.73 m2 (mL/min/1.73m2) >= 60.00 Glucose (74-106) mg/dL 145 H Calcium (8.5-10.1) mg/dL 8.4 L Total Bilirubin (0.2-1.0) mg/dL 0.3 AST (15-37) U/L 24 ALT (16-63) U/L 33 Alkaline Phosphatase (46-116) U/L 99 Total Protein (6.4-8.2) g/dL 7.4 Albumin (3.4-5.0) g/dL 3.7 TSH (0.36-3.74) uIU/mL 2.45 Salicylates (<2.8) mg/dL 5.0 Acetaminophen (10-30) ug/mL < 2 Ethyl Alcohol (<3) mg/dL < 3.0 COVID-19 Source SARS-CoV-2 (PCR) (Negative) Range/Units 09/27/20 16:32 WBC (4.4-10.8) 10^3/uL RBC (4.36-5.78) 10^6/uL Hgb (13.5-17.5) g/dL Hct (40.0-50.0) % MCV (80-95) fL MCH (27.0-33.0) pg MCHC (32.0-36.0) % RDW (11.8-14.1) % Plt Count (130-400) 10^3/uL MPV (8.0-11.0) fL Immature Gran % Neutrophils % Lymphocytes % Monocytes % Eosinophils % Basophils % Nucleated RBC % % Absolute Neutrophils (1.2-6.7) 10^3/uL Absolute Lymphocytes (1.2-3.4) 10^3/uL Absolute Monocytes (0.1-0.8) 10^3/uL Absolute Eosinophils (0.0-0.7) 10^3/uL Absolute Basophils (0.0-0.2) 10^3/uL Sodium (136-145) mmol/L Potassium (3.5-5.1) mmol/L Chloride (98-107) mmol/L Carbon Dioxide (21.0-32.0) mmol/L Anion Gap (3-11) mmol/L BUN (7-18) mg/dL Creatinine (0.70-1.30) mg/dL Estimated GFR/1.73 m2 (mL/min/1.73m2) Glucose (74-106) mg/dL Calcium (8.5-10.1) mg/dL Total Bilirubin (0.2-1.0) mg/dL AST (15-37) U/L ALT (16-63) U/L Alkaline Phosphatase (46-116) U/L Total Protein (6.4-8.2) g/dL Albumin (3.4-5.0) g/dL TSH (0.36-3.74) uIU/mL Salicylates (<2.8) mg/dL Acetaminophen (10-30) ug/mL Ethyl Alcohol (<3) mg/dL COVID-19 Source Nasal/nares SARS-CoV-2 (PCR) (Negative) Negative HPI General Mode of arrival: ambulatory . Date/Time Provider Initiated Documentation: 09/27/20 14:42 . Limitations to Documentation: no limitations . Information obtained by: patient . HPI Narrative: This is a 54-year-old gentleman, past medical history that includes anxiety, bipolar, COPD, GERD, hypothyroidism, current smoker. He states that he got into a argument with his girlfriend from [place] yesterday, is upset with his neighbor, and is under more stress than usual. He states that he is just tired of society in general. He states that he is all wound up and is afraid that he might do something stupid. He denies recent illness or trauma. He denies obvious suicidal or homicidal thoughts. He does tell me that he is so upset with his neighbor that if she was to go home he may get into a fight. He denies having done anything today to harm himself or anyone else. He is currently unsure whether he will require hospitalization. He is asking for Ativan, a coffee, and to talk with mental health. He has no acute medical concerns or complaints. Related Data Home Medications Medication Instructions Recorded Confirmed omeprazole 20 mg PO QAM 10/16/13 09/24/20 magnesium oxide 400 mg PO QAM 10/20/19 09/24/20 melatonin 6 mg PO HS 12/19/19 09/24/20 olanzapine 5 mg PO DAILY 12/19/19 09/24/20 pravastatin 20 mg PO HS 12/19/19 09/24/20 trazodone 50 mg PO HS 12/19/19 09/24/20 hydroxyzine pamoate [Vistaril] 25 mg PO BID 04/05/20 09/24/20 sennosides [senna] 8.6 mg PO BID PRN 04/05/20 09/24/20 sertraline 100 mg PO DAILY 04/05/20 09/24/20 levothyroxine 88 mcg PO DAILY 07/18/20 09/24/20 prazosin 2 mg PO QHS 07/18/20 09/24/20 capsaicin 1 patch TOPICAL TID #10 ea 08/23/20 09/24/20 ondansetron 4 mg PO Q8H PRN #7 tab 09/24/20 Previous Rx's Medication Instructions Recorded capsaicin 1 patch TOPICAL TID #10 ea 08/23/20 ondansetron 4 mg PO Q8H PRN #7 tab 09/24/20 Allergies Allergy/AdvReac Type Severity Reaction Status Date / Time Sulfa (Sulfonamide Allergy Severe Swelling/Ed Unverified 09/24/20 16:38 Antibiotics) jostin General Stated Complaint: PsychEval ABA: 2 Review of Systems Constitutional Constitutional: Denies fatigue, Denies fever(s) and Denies headache(s) Eyes Eyes: Denies change in vision ENT Ears, Nose, Mouth, and Throat: Denies headache(s) and Denies neck pain Cardiovascular Cardiovascular: Denies chest pain and Denies dyspnea Respiratory Respiratory: Denies dyspnea Gastrointestinal Gastrointestinal: Denies abdominal pain, Denies nausea and Denies vomiting Genitourinary Genitourinary: Denies dysuria Musculoskeletal Musculoskeletal: Denies back pain and Denies neck pain Integumentary/Breasts Skin/Breast: Denies rash Neurologic Neurologic: Denies headache(s) Psychiatric Psychiatric: Reports anxiety, Reports homicidal ideation and Denies suicidal ideation Endocrine Endocrine: Denies fatigue [facility] Medical History Anxiety Bipolar disorder COPD (chronic obstructive pulmonary disease) GERD (gastroesophageal reflux disease) Hypercholesterolemia Hypothyroid Traumatic pneumothorax 2017, chest tube x2 Surgical History History of ankle surgery S/P thoracostomy tube placement Social History Smoking/Tobacco Use Status: Current every day Tobacco Type: cigarettes Smoking risk assessment performed?: Yes Alcohol Intake: never Drug use: Daily Substance use type: marijuana Current gender identity: male Do you feel safe at home: Yes Do you feel safe in your relationship?: Yes Exam Const General: cooperative, healthy appearing, comfortable, no acute distress and anxious Orientation: alert, awake and oriented x3 HENMT Head: normal to inspection, normocephalic and atraumatic Face and sinus: normal facial exam Mouth: moist mucous membranes Eyes General: appearance normal, both eyes and all related structures Conjunctivae: conjunctivae normal Neck Neck: normal visual inspection, full ROM, trachea midline and supple Resp Effort & Inspection: normal respiratory effort and able to speak in complete sentences Auscultation: clear to auscultation bilaterally Cardio Rate: regular rate Rhythm: regular rhythm GI Palpation: soft and nontender Back/Spine/Pelvis Back: No back tenderness Skin General skin exam: no rashes or lesions noted Neuro General: patient alert, patient awake, patient oriented x3, moves all extremities and no focal motor deficits Cognition: normal cognition Speech: speech normal Gait: normal gait Sensory Exam: no sensory deficits noted Extrem General: normal to inspection and full ROM Psych Appearance: grossly normal Mental Status: mental status grossly normal Speech and Movement: agitated Affect: irritable affect Attitude: cooperative Thought Process: normal Thought Content: other (Not homicidal but wants to fight) Insight: fair Judgment: fair Course Vital Signs Vital signs: Vital Signs Temperature 36.7 C 09/27/20 14:37 Pulse 90 09/27/20 14:37 Respiratory Rate 18 09/27/20 14:37 Blood Pressure 145/106 H 09/27/20 14:37 Pulse Oximetry 96 09/27/20 14:37 Temperature 36.7 C 09/27/20 14:37 Temperature Source Temporal Artery Scan 09/27/20 14:37 Pulse 90 09/27/20 14:37 Respiratory Rate 18 09/27/20 14:37 Blood Pressure 145/106 H 09/27/20 14:37 Blood Pressure Position Sitting 09/27/20 14:37 Pulse Oximetry 96 09/27/20 14:37 Oxygen Delivery Method Room Air 09/27/20 14:37 Oxygen Flow Rate 0 09/27/20 14:37 Pain Level 0 09/27/20 14:37
[2020-09-27] MEDS: LORazepam 1 MG TAB (15:10)
--- NOTE | 2020-09-27 15:58 | CMSP_ITS ---
- If Service Date Differs Date of service: 09/27/20 Time of Service: 15:58 Care Management Safety Plan Status: Voluntary Per chart review, Asim arrived at the ED after making threats to his neighbors stating he has had it with his neighbors and he is going to make an example of someone. He was sent to ED by Jagdish [facility] PAD CUTTER piano case and bench assembler. Safety plan has been established to meet the needs of the patient, and consideration of the care team, to adhere to patient goals, identify restrictions based on behavioral status, address nutrition, and determine allowed personal belongings, tools for hygiene and personal care. Determine level of activity including ambulation, level of supervision, visitors, and determine privileges based on behaviors and level of engagement by pt. SAFETY PLAN: 1. May remain in own clothes after wanding by per RN discretion. 2. Will remain in room under direct supervision of one-on-one staff at all times provided by [employer], DONTAE, TEACHER director of market analysis. 3. May have paper cups, plates, finger foods as well as a cardboard spoon 4. Follow [facility] Management of the Admitted Behavioral Health Patient policy. 5. Comfort bath system only. Shower permitted, at RN discretion, if pt moved to M/S. 6. No personal belongings except personal phone, and glasses at nursing discretion. 7. Visitors: none at this time 8. Activities: permitted television and remote (to be kept with [employer]) at nursing discretion. Soft items from activity cart at nursing discretion. 9. Bathroom available in room without limitation on M/S. Escort to bathroom while in ED. 10. Phone: may keep and use personal phone at nursing discretion. Staff will provide de-escalation support (CPI) as needed. If patient wishes to leave [facility], staff will contact [facility] Crisis Screener ([phone]) and On-Call Pharmacy Cashier ([phone]) as soon as possible. In the event of elopement, notify [place] [employer] ([phone]). Patient is currently voluntarily at [facility]. [facility] Frontline Explosives Truck Driver will continue seeking placement. Please contact the Service Engineer Pharmacy Cashier ([phone]) for any needed changes to Safety Plan. Safety plan has been provided to interdepartmental care team. Patient will be transported by heater planer operator at time of discharge.
[2020-09-27 16:39] LABS: Abs Immature Grans 0.02 10^3/uL (0.0-0.06); Absolute Basophil Count 0.05 10^3/uL (0.0-0.2); Absolute Eosinophil Count 0.14 10^3/uL (0.0-0.7); Absolute Lymphocyte Count 1.96 10^3/uL (1.2-3.4); Absolute Neutrophil Count 7.15 10^3/uL (1.2-6.7); Basophils % 0.5; Eosinophils % 1.4; HCT 43.5 % (40.0-50.0); HGB 14.4 g/dL (13.5-17.5); Immature Grans % 0.2; MCH 27.6 pg (27.0-33.0); MCHC 33.1 % (32.0-36.0); MCV 83.3 fL (80-95); MPV 10.4 fL (8.0-11.0); Monocytes % 5.1; Neutrophils % 72.8; Nucleated RBC 0 %; Platelet Count 194 10^3/uL (130-400); RBC 5.22 10^6/uL (4.36-5.78); RDW-SD 42.6 fL; WBC 9.82 10^3/uL (4.4-10.8)
[2020-09-27 16:44] LABS: Source Nasal/Nares
[2020-09-27 17:03] LABS: ALT 33 U/L (16-63); AST 24 U/L (15-37); Albumin 3.7 g/dL (3.4-5.0); Alkaline Phosphatase 99 U/L (46-116); Anion Gap 11.8 mmol/L (3-11); BUN 21 mg/dL (7-18); Bilirubin, Total 0.3 mg/dL (0.2-1.0); CO2 22.2 mmol/L (21.0-32.0); CREATININE 0.8 mg/dL (0.70-1.30); Calcium 8.4 mg/dL (8.5-10.1); Chloride 103 mmol/L (98-107); Glucose 145 mg/dL (74-106); Potassium 3.8 mmol/L (3.5-5.1); Sodium 137 mmol/L (136-145); TSH 2.45 uIU/mL (0.36-3.74); Total Protein 7.4 g/dL (6.4-8.2)
--- NOTE | 2020-09-27 17:13 | NUR.NOTE ---
pt walked out at 1713 MD and nursing transformer assembly supervisor aware Nursing Note:
[2020-09-27 17:17] LABS: ETHANOL BLOOD < 3.0 mg/dL (<3)
[2020-09-27 17:19] LABS: Acetaminophen < 2 ug/mL (10-30)
[2020-09-27 17:24] LABS: COVID-19 PCR Negative (Negative)
== END 2020-09-27 17:14 | disposition other institution (70) ==
PROVIDERS: Emergency Provider Physician Assistant; PCP Nurse Practitioner
DX: R45.1 Restlessness and agitation (principal); Z53.29 Procedure and treatment not carried out because of patient's decision for other reasons
CPT/HCPCS: 80053; 87635; 99283; 80320; 80329; 84443; 85025

== ENCOUNTER 2020-09-27 17:26 | Observation (INO) | payer MEDICAID, SELFPAY ==
--- NOTE | 2020-09-27 18:49 | ED.GENADUL_ITS ---
Discharge Plan Disposition Patient Disposition: [facility] INPATIENT Condition: Stable Discharge Details Clinical Impression: Agitation Primary Care Provider: Fariba Forde ED Provider: Jaime Ballard Home Meds and New Rx's Prescriptions: No Action omeprazole 20 MG capsule,delayed release(DR/EC) 20 mg PO QAM RF: 0 magnesium oxide 400 mg (241.3 mg magnesium) tablet 400 mg PO QAM RF: 0 sennosides [senna] 8.6 mg Tablet 8.6 mg PO BID PRNRF: 0 sertraline 100 mg Tablet 100 mg PO DAILY RF: 0 hydroxyzine pamoate [Vistaril] 25 mg Capsule 25 mg PO BID RF: 0 capsaicin 0.025 % adhesive patch,medicated 1 patch topical TID Qty: 10 RF: 0 ondansetron 4 mg tablet,disintegrating 4 mg PO Q8H PRN (Reason: nausea and vomiting) Qty: 7 RF: 0 trazodone 50 mg tablet 50 mg PO HS RF: 0 olanzapine 5 mg tablet 5 mg PO DAILY RF: 0 melatonin 3 mg tablet 6 mg PO HS RF: 0 pravastatin 20 mg tablet 20 mg PO HS RF: 0 levothyroxine 88 mcg Tablet 88 mcg PO DAILY RF: 0 prazosin 2 mg Capsule 2 mg PO QHS RF: 0 Medical Decision Making 54-year-old gentleman who was just a patient here in our ER he looks to go outside and smoke a cigarette and is signed back in. He has already had a medical screening examination, laboratory values, and a mental health evaluation. Patient was a voluntary placement. He states that he left because he was upset seeing a staff member here in the ER. Apparently staff witnessed him walking to the picnic table outside of the ER entrance, smoking a cigarette, and then coming back into the ER a very short period of time. He has no acute concerns or complaints. Please refer to my initial note from earlier today. I see no clear indication to repeat any laboratory values. Given his elopement I will request a mental health evaluation again only to determine if he truly requires placement and if this placement will be voluntary or involuntary. [facility] Jaime marx, evaluated the patient. It was determined that he is a voluntary placement and if he decides to leave he can simply elope from the ER. Patient states that he does not feel safe going home because he will likely hurt his neighbors. He is vague and does not have a specific plan. Again he does not admit to any suicidal or homicidal ideation. I have requested to speak with the hospitalist services to discuss admission of the patient as he is a voluntary placement. Case discussed with Dr. Pires who is agreeable to admission Medical Records Medical records reviewed: Yes I reviewed the patient's medical records. Lab Data Lab results reviewed: Yes I reviewed the patient's lab results. Lab results narrative: Labs reviewed from earlier visit HPI General Mode of arrival: ambulatory . Date/Time Provider Initiated Documentation: 09/27/20 18:27 . Limitations to Documentation: no limitations . Information obtained by: patient . HPI Narrative: This is a 54-year-old gentle man, past medical history that includes anxiety, bipolar, COPD, GERD, hypothyroidism presenting to the ER. Patient was a patient in room 9, has been evaluated by me, laboratories drawn and was medically cleared. Mental health evaluation completed and he was determined to be a voluntary placement. He reports increased stress, having had a fight with his girlfriend, To get into a fight with his neighbors. He denies any overt suicidal or homicidal ideations. Patient saw a staff member here in the ER, became agitated and eloped from the ER. He sat down to take a table outside and had a cigar ette. He then turned around and checked back into the ER for placement. Given he had already eloped, a new medical record was opened. Patient denies any acute medical concerns or complaints. Please refer to my initial note for his initial presentation today for further information. Related Data Home Medications Medication Instructions Recorded Confirmed omeprazole 20 mg PO QAM 10/16/13 09/24/20 magnesium oxide 400 mg PO QAM 10/20/19 09/24/20 melatonin 6 mg PO 12/19/19 09/24/20 olanzapine 5 mg PO DAILY 12/19/19 09/24/20 pravastatin 20 mg PO HS 12/19/19 09/24/20 trazodone 50 mg PO 12/19/19 09/24/20 hydroxyzine pamoate [Vistaril] 25 mg PO BID 04/05/20 09/24/20 sennosides [senna] 8.6 mg PO BID PRN 04/05/20 09/24/20 sertraline 100 mg PO DAILY 04/05/20 09/24/20 levothyroxine 88 mcg PO DAILY 07/18/20 09/24/20 prazosin 2 mg PO QHS 07/18/20 09/24/20 capsaicin 1 patch TOPICAL TID #10 ea 08/23/20 09/24/20 ondansetron 4 mg PO Q8H PRN #7 tab 09/24/20 Previous Rx's Medication Instructions Recorded capsaicin 1 patch TOPICAL TID #10 ea 08/23/20 ondansetron 4 mg PO Q8H PRN #7 tab 09/24/20 Allergies Allergy/AdvReac Type Severity Reaction Status Date / Time Sulfa (Sulfonamide Allergy Severe Swelling/Ed Unverified 09/24/20 16:38 Antibiotics) jostin General Stated Complaint: PsychEval ABA: 2 Review of Systems Constitutional Constitutional: Denies fatigue, Denies fever(s), Denies headache(s) and Denies weakness Eyes Eyes: Denies change in vision ENT Ears, Nose, Mouth, and Throat: Denies headache(s) and Denies neck pain Cardiovascular Cardiovascular: Denies chest pain and Denies dyspnea Respiratory Respiratory: Denies cough and Denies dyspnea Gastrointestinal Gastrointestinal: Denies abdominal pain, Denies nausea and Denies vomiting Genitourinary Genitourinary: Denies dysuria Musculoskeletal Musculoskeletal: Denies back pain, Denies neck pain, Denies numbness and Denies tingling Integumentary/Breasts Skin/Breast: Denies rash Neurologic Neurologic: Denies headache(s), Denies numbness, Denies tingling and Denies weakness Psychiatric Psychiatric: Reports anxiety, Reports depression, Reports mood swings, Reports homicidal ideation and Denies suicidal ideation Endocrine Endocrine: Denies fatigue PFSH Medical History Anxiety Bipolar disorder COPD (chronic obstructive pulmonary disease) GERD (gastroesophageal reflux disease) Hypercholesterolemia Hypothyroid Traumatic pneumothorax 2017, chest tube x2 Surgical History History of ankle surgery S/P thoracostomy tube placement Social History Smoking/Tobacco Use Status: Current every day Tobacco Type: cigarettes Smoking risk assessment performed?: Yes Alcohol Intake: never Drug use: Daily Substance use type: marijuana Current gender identity: male Do you feel safe at home: Yes Do you feel safe in your relationship?: Yes Exam Const General: cooperative, healthy appearing, comfortable and no acute distress Orientation: alert, awake and oriented x3 HENMT Head: normal to inspection, normocephalic and atraumatic Eyes General: appearance normal, both eyes and all related structures Alignment and Position: alignment normal Periorbital: periorbital findings normal Eyelids: eyelids normal Conjunctivae: conjunctivae normal Sclera: sclerae normal Cornea: corneas normal Pupils: PERRL EOM: EOM intact bilaterally Direct ophthalmoscopy: normal light reflex Neck Neck: normal visual inspection, full ROM, trachea midline and supple Resp Effort & Inspection: normal respiratory effort and able to speak in complete sentences Auscultation: clear to auscultation bilaterally Cardio Rate: regular rate Rhythm: regular rhythm GI Palpation: soft and nontender Back/Spine/Pelvis Back: No back tenderness Skin General skin exam: no rashes or lesions noted Neuro General: patient alert, patient awake, moves all extremities and no focal motor deficits Cognition: normal cognition Speech: speech normal Gait: normal gait Motor: muscle tone normal throughout Sensory Exam: no sensory deficits noted Extrem General: normal to inspection and full ROM Psych Appearance: grossly normal Mental Status: mental status grossly normal Speech and Movement: agitated Mood: anxious mood Affect: irritable affect Attitude: cooperative Thought Process: normal Thought Content: homicidality (Denies homicidality but wants to fight his neighbor) Insight: fair Judgment: fair Course Vital Signs Vital signs: Respiratory Effort 09/27/20 17:48
--- NOTE | 2020-09-27 19:27 | HPE_ITS ---
Date of service: 09/27/20 Time of Service: 19:28 Assessment and Plan Assessment and plan (1) Agitation: Status: Acute Assessment and plan: He may benefit from adjustment of his meds, but I feel this is more a psychosocial and behavioral matter. In any case will admit pending transfer, will continue usual meds as is. History of Present Illness History of Present Illness Chief Complaint: agitation Narrative: 54 male with long h/o multiple psychiatric dxx -- here today because he is becoming increasingly agitated with some neighbor in the apartment building and feels like he will get into a fight or cause some harm. He was given a dose of Ativan and a cup of coffee. Seen by mental health who deemed that he would benefit from psychiatric placement (not there is no note on chart, but I confirmed above with mental health worker by phone). No beds available per ER report and so he is admitted on voluntary basis. Note that no medical w/u was initiated in ER as this did not appear to be a medical matter. [facility] Medical History Anxiety Bipolar disorder COPD (chronic obstructive pulmonary disease) GERD (gastroesophageal reflux disease) Hypercholesterolemia Hypothyroid Traumatic pneumothorax 2016, chest tube x2 Surgical History History of ankle surgery S/P thoracostomy tube placement Social History Smoking/Tobacco Use Status: Current every day Tobacco Type: cigarettes Smoking risk assessment performed?: Yes Alcohol Intake: never Drug use: Daily Substance use type: marijuana Current gender identity: male Do you feel safe at home: Yes Do you feel safe in your relationship?: Yes Meds Allergies and Home Medications Allergies Allergy/AdvReac Type Severity Reaction Status Date / Time Sulfa (Sulfonamide Allergy Severe Swelling/Ed Unverified 09/24/20 16:38 Antibiotics) jostin Home Medications Medication Instructions Recorded Confirmed Type omeprazole 20 mg PO QAM 10/16/13 09/24/20 History magnesium oxide 400 mg PO QAM 10/20/19 09/24/20 History melatonin 6 mg PO HS 12/19/19 09/24/20 History olanzapine 5 mg PO DAILY 12/19/19 09/24/20 History pravastatin 20 mg PO HS 12/19/19 09/24/20 History trazodone 50 mg PO HS 12/19/19 09/24/20 History hydroxyzine pamoate [Vistaril] 25 mg PO BID 04/05/20 09/24/20 History sennosides [senna] 8.6 mg PO BID PRN 04/05/20 09/24/20 History sertraline 100 mg PO DAILY 04/05/20 09/24/20 History levothyroxine 88 mcg PO DAILY 07/18/20 09/24/20 History prazosin 2 mg PO QHS 07/18/20 09/24/20 History capsaicin 1 patch TOPICAL TID #10 ea 08/23/20 09/24/20 Rx ondansetron 4 mg PO Q8H PRN #7 tab 09/24/20 Rx Exam Narrative Exam Narrative: 145/106, 90, 36.7, 18, 96% RA. HEENT atraumatic; neck supple; lungs clear; heart RRR; abdomen soft and NT; neuro Ox3, moves all 4s, gets a little worked up when he starts talking about his neighbor COVID-19 Screening Have you, or household traveled for leisure in last 14 days?: No Had IN PERSON contact w/suspected or confirmed C-19 person: No
[2020-09-27 20:09] VITALS: BP 124/87; PULSE 77; TEMP 37; O2SAT 94
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
[2020-09-27 21:02] VITALS: BP 116/75; PULSE 88; RESP 17; TEMP 36.3; O2SAT 94
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
--- NOTE | 2020-09-28 07:19 | NUR.NOTE ---
Nursing Note:Patient refused to remove his headset saying ' the only way you can take my things out is when im ' RN offered to put it in the hallway where he can see it, patient still refused.
[2020-09-28 08:15] VITALS: BP 126/69; PULSE 83; RESP 18; TEMP 36.5; O2SAT 95
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
== END 2020-09-28 14:49 | disposition home or self-care (01) ==
LOC: ER 19:26 → MS 20:48
PROVIDERS: Admitting Provider General Practice; Emergency Provider Physician Assistant; PCP Nurse Practitioner; Visit Provider General Practice
DX: R45.1 Restlessness and agitation (principal); F41.9 Anxiety disorder, unspecified; F31.9 Bipolar disorder, unspecified; J44.9 Chronic obstructive pulmonary disease, unspecified; J21.9 Acute bronchiolitis, unspecified; E78.00 Pure hypercholesterolemia, unspecified; E03.9 Hypothyroidism, unspecified
CPT/HCPCS: 99285; 99217; 99218; 99283; G0378

== ENCOUNTER 2020-09-28 16:19 | Inpatient (IN) | payer MEDICAID, SELFPAY ==
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
[2020-09-28 16:31] VITALS: BP 154/88; PULSE 85; RESP 16; TEMP 36.6; O2SAT 97
[2020-09-28 17:21] LABS: Source Nasal/Nares
[2020-09-28] MEDS: LORazepam 0.5 MG TAB PO (17:25)
--- NOTE | 2020-09-28 17:29 | PDOC.MHCN_ITS ---
Date of service: 09/28/20 Time of Service: 16:30 Mental Health Crisis Note Presenting Issue How did you arrive at the ED and why did you come: Client arrived to ED via self and he is there due to homicidal and suicidal ideations. Precipitating Factors Client endorsed SI/HI with intent and no plan. Client expressed homicidal intent towards his neighbors as well as made suicidal statement during this assessment. No evidence of delusions present. Disposition BEHAVIOR: Client presented as agitated and hyperactive at first but later calmed down the remainder of this assessment. EYE CONTACT: Client maintained appropriate eye contact MOOD: Client dysphoric and angry mood. AFFECT: Client presented with blunted affect APPETITE: Client reported no problems with his appetite SLEEP(trouble falling/staying asleep: Client denied sleeping disturbance at this time Plan Client is currently on voluntary status and is agreeable to in-patient psychiatric treatment at this time. Client has also agreed to a referral for palliative care as well. Client will need to be reassessed by [facility] if he decides to discharge before he is placed for in-patient treatment. Signature Clinician's Name/Title: Alejandra Lopez / Emergency Services Clinician
--- NOTE | 2020-09-28 17:29 | NUR.NOTE ---
Nursing Note: per ER PA.no need for new labs/ua. only order at this time is for covid. pt agrees at this time.
--- NOTE | 2020-09-28 17:50 | PDOC.CMSAFED ---
- If Service Date Differs Date of service: 09/28/20 Time of Service: 17:50 Care Management Safety Plan Status: Voluntary Asim was discharged from M/S this afternoon with a contract for safety from [facility] HEATING TECHNICIAN and ES. He was discharged shortly before his ride was expected, at approximately 3pm. While he was waiting for his ride, he became agitated and presented to the ED with homicidal and suicidal ideation. He reported that his plan was to jump into traffic. He was evaluated by [facility], who deemed him appropriate for inpatient psychiatric hospitalization. He is voluntary and willing to go to a facility at this time. CM will continue to follow. Safety plan has been established to meet the needs of the patient, and consideration of the care team, to adhere to patient goals, identify restrictions based on behavioral status, address nutrition, and determine allowed personal belongings, tools for hygiene and personal care. Determine level of activity including ambulation, level of supervision, visitors, and determine privileges based on behaviors and level of engagement by pt. SAFETY PLAN: 1. May remain in own clothes after wanding by per RN discretion. 2. Will remain in room under direct supervision of one-on-one staff at all times provided by CPSO, DONTAE, FARM MANAGEMENT ADVISER bead forming machine operator. 3. May have paper cups, plates, finger foods as well as a cardboard spoon 4. Follow [facility] Management of the Admitted Behavioral Health Patient policy. 5. Comfort bath system only. Shower permitted, at RN discretion, if pt moved to M/S. 6. No personal belongings except personal phone, and glasses at nursing discretion. 7. Visitors: none at this time 8. Activities: permitted television and remote (to be kept with CPSO) at nursing discretion. Soft items from activity cart at nursing discretion. 9. Bathroom available in room without limitation on M/S. Escort to bathroom while in ED. 10. Phone: may keep and use personal phone at nursing discretion. Staff will provide de-escalation support (CPI) as needed. If patient wishes to leave [facility], staff will contact [facility] Crisis Screener ([phone]) and On-Call Speech Professor ([phone]) as soon as possible. In the event of elopement, notify [facility] Police ([phone]). Patient is currently voluntarily at [facility]. [facility] Frontline Real Estate Leasing Manager will continue seeking placement. Please contact the Automotive Dismantler Speech Professor ([phone]) for any needed changes to Safety Plan. Safety plan has been provided to interdepartmental care team. Patient will be transported by deputy sheriff k9 handler at time of discharge.
[2020-09-28 18:01] LABS: COVID-19 PCR Negative (Negative)
[2020-09-28 18:42] VITALS: BP 150/87; PULSE 74; RESP 16; TEMP 37; O2SAT 95
--- NOTE | 2020-09-28 18:44 | NUR.NOTE ---
Nursing Note: PT saying he is to aggitaid to get comfy, saying human services isn't doing anything. Saying they won't get him help to move out of the apartment building he is in.
--- NOTE | 2020-09-28 20:53 | HPE_ITS ---
Date of service: 09/28/20 Time of Service: 19:46 Assessment and Plan Assessment and plan (1) Homicidal ideation: Status: Acute Assessment and plan: History of making threats against others. Psychiatric consult. (2) Suicidal ideations: Status: Acute Assessment and plan: Multiple previous similar ideations. Psychiatric consult. (3) Tobacco abuse: Status: Chronic Assessment and plan: Declines nicotine replacement. (4) COPD (chronic obstructive pulmonary disease): Status: Chronic Assessment and plan: On no medications for COPD routinely. No c/o cough, SOA. PRN albuterol per neb. (5) Bipolar disorder: Status: Chronic Assessment and plan: Cont Neurontin, Olanzapine, Prazasin, Sertraline, Trazodone. Prn Ativan for agitation. Qualifiers: Active/Remission status: currently active Current bipolar episode type: hypomanic Qualified Code(s): F31.0 - Bipolar disorder, current episode hypomanic (6) Discharge planning issues: Status: Acute Assessment and plan: Had been cleared for discharged after inpatient admission for recurring SI and HI. He now states to me that he would be agreeable to transfer to an inpatient sychiatric facility. History of Present Illness History of Present Illness Chief Complaint: Suicidal ideation, homicidal ideations Narrative: This is a 54 yo male with a PMH of Bipolar disorder, COPD, HLD, hypothyroidism, GERD. He presented to the ED with thought of suicide and harming others. He had been discharged from [facility] 30 mins prior to presenting to the ED; after admission on 09/27/2020 for homicidal ideations. He had not left the hospital grounds. Mental health had cleared him for discharge. He endorsed thoughts of suicide began to escalate after he was discharged; thoughts of jumping in front of traffic. He also states he was going to take his landlord to [facility]. He has made threats toward his landlord and others multiple times in the past. MULTIPLE RESAW OPERATOR and [facility] both evaluated patient. Both agreed he needed further psychiatric care. He was anxious when evaluated in the ED and was given 0.5mg po ativan. He denied taking any drugs or Etoh in the short intervening time between being discharged and re-evaluated. [facility] Medical History Anxiety Bipolar disorder COPD (chronic obstructive pulmonary disease) GERD (gastroesophageal reflux disease) Hypercholesterolemia Hypothyroid Traumatic pneumothorax 2017, chest tube x2 Surgical History History of ankle surgery S/P thoracostomy tube placement Social History Smoking/Tobacco Use Status: Current every day Tobacco Type: cigarettes Smoking risk assessment performed?: Yes Alcohol Intake: never Drug use: Daily Substance use type: marijuana Current gender identity: male Do you feel safe at home: Yes Do you feel safe in your relationship?: Yes Meds Allergies and Home Medications Allergies Allergy/AdvReac Type Severity Reaction Status Date / Time Sulfa (Sulfonamide Allergy Severe Swelling/Ed Unverified 09/28/20 17:30 Antibiotics) jostin Home Medications Medication Instructions Recorded Confirmed Type omeprazole 20 mg PO QAM 10/16/13 09/28/20 History magnesium oxide 400 mg PO QAM 10/20/19 09/28/20 History melatonin 6 mg PO HS 12/19/19 09/28/20 History olanzapine 5 mg PO DAILY 12/19/19 09/28/20 History pravastatin 20 mg PO HS 12/19/19 09/28/20 History trazodone 50 mg PO HS 12/19/19 09/28/20 History hydroxyzine pamoate [Vistaril] 50 mg PO BID 04/05/20 09/28/20 History sennosides [senna] 8.6 mg PO BID PRN 04/05/20 09/28/20 History sertraline 100 mg PO DAILY 04/05/20 09/28/20 History levothyroxine 88 mcg PO DAILY 07/18/20 09/28/20 History prazosin 2 mg PO QHS 07/18/20 09/28/20 History ondansetron 4 mg PO Q8H PRN #7 tab 09/24/20 09/28/20 Rx gabapentin 300 mg PO .QHS 09/28/20 09/28/20 History olanzapine mg 09/28/20 09/28/20 History Exam Const General: cooperative and no acute distress Nutritional Appearance: average body habitus Orientation: alert and oriented x3 HENMT Head: normocephalic and atraumatic Eyes Sclera: sclerae normal Pupils: PERRL Neck Neck: full ROM and no JVD Resp Effort & Inspection: normal respiratory effort Auscultation: clear to auscultation bilaterally and diminished lung sounds Cardio Rate: regular rate Rhythm: regular rhythm Heart Sounds: S1 normal and S2 normal GI Palpation: soft and nontender Skin General skin exam: no rashes or lesions noted Neuro General: no focal motor deficits Cognition: normal cognition Speech: speech normal Extrem General: no pedal edema and no calf tenderness Psych Speech and Movement: speech and movement normal Affect: anxious affect Attitude: cooperative Results Labs Result diagrams: 09/28/20 16:31 09/28/20 16:31 Labs: Laboratory Results - last 24 hr 09/28/20 09/28/20 09/28/20 16:31 16:31 16:31 WBC Cancelled RBC Cancelled Hgb Cancelled Hct Cancelled MCV Cancelled MCH Cancelled MCHC Cancelled RDW Cancelled Plt Count Cancelled MPV Cancelled Immature Gran % Cancelled Neutrophils % Cancelled Band Neutrophils % Cancelled Lymphocytes % Cancelled Atypical Lymphs % Cancelled Monocytes % Cancelled Eosinophils % Cancelled Basophils % Cancelled Metamyelocytes % Cancelled Myelocytes % Cancelled Promyelocytes % Cancelled Other Cells % Cancelled Nucleated RBC % Cancelled Absolute Neutrophils Cancelled Absolute Lymphocytes Cancelled Absolute Monocytes Cancelled Absolute Eosinophils Cancelled Absolute Basophils Cancelled RBC Morphology Cancelled Polychromasia Cancelled Hypochromasia Cancelled Poikilocytosis Cancelled Basophilic Stippling Cancelled Anisocytosis Cancelled Microcytosis Cancelled Macrocytosis Cancelled Spherocytes Cancelled Tear Drop Cells Cancelled Ovalocytes Cancelled Stomatocytes Cancelled [place] Bodies Cancelled [place] Cells/Echinocytes Cancelled Acanthocytes (Spur) Cancelled Schistocytes Cancelled Sodium Cancelled Potassium Cancelled Chloride Cancelled Carbon Dioxide Cancelled Anion Gap Cancelled BUN Cancelled Creatinine Cancelled Estimated GFR/1.73 m2 Cancelled Glucose Cancelled Calcium Cancelled Total Bilirubin Cancelled AST Cancelled ALT Cancelled Alkaline Phosphatase Cancelled Total Protein Cancelled Albumin Cancelled TSH Cancelled Urine Color Urine Clarity Urine pH Ur Specific [place] Urine Protein Urine Ketones Urine Blood Urine Nitrite Urine Bilirubin Urine Urobilinogen Ur Leukocyte Esterase Urine Glucose Salicylates Cancelled Urine Opiates Screen Urine Methadone Screen Acetaminophen Cancelled Ur Barbiturates Screen Ur Tricyclics Screen Ur Amphetamines Screen U Benzodiazepines Scrn Urine Cocaine Screen Ur THC Screen Ethyl Alcohol Cancelled COVID-19 Source SARS-CoV-2 (PCR) 09/28/20 09/28/20 09/28/20 16:33 16:33 17:16 WBC RBC Hgb Hct MCV MCH MCHC RDW Plt Count MPV Immature Gran % Neutrophils % Band Neutrophils % Lymphocytes % Atypical Lymphs % Monocytes % Eosinophils % Basophils % Metamyelocytes % Myelocytes % Promyelocytes % Other Cells % Nucleated RBC % Absolute Neutrophils Absolute Lymphocytes Absolute Monocytes Absolute Eosinophils Absolute Basophils RBC Morphology Polychromasia Hypochromasia Poikilocytosis Basophilic Stippling Anisocytosis Microcytosis Macrocytosis Spherocytes Tear Drop Cells Ovalocytes Stomatocytes [place] Bodies [place] Cells/Echinocytes Acanthocytes (Spur) Schistocytes Sodium Potassium Chloride Carbon Dioxide Anion Gap BUN Creatinine Estimated GFR/1.73 m2 Glucose Calcium Total Bilirubin AST ALT Alkaline Phosphatase Total Protein Albumin TSH Urine Color Cancelled Urine Clarity Cancelled Urine pH Cancelled Ur Specific [place] Cancelled Urine Protein Cancelled Urine Ketones Cancelled Urine Blood Cancelled Urine Nitrite Cancelled Urine Bilirubin Cancelled Urine Urobilinogen Cancelled Ur Leukocyte Esterase Cancelled Urine Glucose Cancelled Salicylates Urine Opiates Screen Cancelled Urine Methadone Screen Cancelled Acetaminophen Ur Barbiturates Screen Cancelled Ur Tricyclics Screen Cancelled Ur Amphetamines Screen Cancelled U Benzodiazepines Scrn Cancelled Urine Cocaine Screen Cancelled Ur THC Screen Cancelled Ethyl Alcohol COVID-19 Source Nasal/nares SARS-CoV-2 (PCR) Negative Last Vital Signs Temp 37 C 09/28/20 18:42 Pulse 74 09/28/20 18:42 Resp 16 09/28/20 18:42 BP 150/87 H 09/28/20 18:42 Pulse Ox 95 09/28/20 18:42 COVID-19 Screening Have you, or household traveled for leisure in last 14 days?: No Had IN PERSON contact w/suspected or confirmed C-19 person: No
[2020-09-28] MEDS: Melatonin 3 MG TAB 6 MG PO (21:19)
[2020-09-28] MEDS: hydrOXYzine PAMOATE 25 MG CAP 50 MG PO (21:19)
[2020-09-28] MEDS: Prazosin 1 MG CAP 2 MG PO (21:19)
[2020-09-28] MEDS: Pravastatin 20 MG TAB PO (21:19)
[2020-09-28] MEDS: traZODone 50 MG TAB PO (21:20)
[2020-09-28] MEDS: Gabapentin 300 MG CAP PO (21:20)
[2020-09-28 21:32] VITALS: BP 113/73; PULSE 69; RESP 18; TEMP 37; O2SAT 98
[2020-09-29] MEDS: Levothyroxine 88 MCG TAB PO (06:11)
[2020-09-29] MEDS: Magnesium Oxide 400 MG TAB PO (08:14)
[2020-09-29] MEDS: Omeprazole 20 MG CAPCR PO (08:14)
[2020-09-29] MEDS: Sertraline 50 MG TAB 100 MG PO (08:14)
[2020-09-29] MEDS: OLANZapine 5 MG TAB PO (08:14)
[2020-09-29] MEDS: hydrOXYzine PAMOATE 25 MG CAP 50 MG PO (08:14)
[2020-09-29 08:27] VITALS: BP 116/80; PULSE 93; RESP 18; TEMP 36.6; O2SAT 96
--- NOTE | 2020-09-29 08:37 | NUR.NOTE ---
patient comes out to doorway and states to me if mental health comes here, i don't want to speak with them if they are going to continue to not do anything. I've got what i need and when i leave im not coming back and if i do there will be hell to pay rn notified. Nursing Note:
--- NOTE | 2020-09-29 12:05 | PDOC.MHCN ---
Date of service: 09/29/20 Time of Service: 16:17 Mental Health Crisis Note Presenting Issue How did you arrive at the ED and why did you come: Pt arrived at the hospital via ambulance and then stayed over the course of a few days due to assaultive and threatening behavior toward his neighbors. Precipitating Factors Pt was observed to have significant paranoia directed at his neighbors. Due to this, he was vocalizing intent to harm him neighbors if he went home. Disposition BEHAVIOR: Pt was calm and cooroperative. EYE CONTACT: Pt maintained good eye contact. MOOD: Pt was in a stable mood, slight frustration at times. AFFECT: Pt had a normal affect. APPETITE: Pt's appetite was normal, he was eating at the time of asssessment. SLEEP(trouble falling/staying asleep: PT reports conistent problems trying to fall asleep but does not report significant or new problems. Plan Pt will be discharged home with a safety plan. Signature Clinician's Name/Title: Maegan Joel CRT Service Coordiantor
--- NOTE | 2020-09-29 13:21 | DSE_ITS ---
Date of service: 09/29/20 Time of Service: 13:21 DS: Diagnosis Discharge Diagnosis (1) Homicidal ideation: Status: Acute (2) Suicidal ideations: Status: Acute (3) Tobacco abuse: Status: Chronic (4) COPD (chronic obstructive pulmonary disease): Status: Chronic (5) Bipolar disorder: Status: Chronic Discharge Plan Disposition Patient Disposition: HOME Condition: Stable Discharge Details Reason For Visit: HI AND SI Admit Date/Time: 09/28/20 17:53 Admit Provider: Conner Omer Attending Provider: Conner Omer Primary Care Provider: Fariba Forde Hospital Course Hospital Course: This is a 54 yo male with a past history of Bipolar disorder, COPD, HLD, hypothyroidism, GERD who presented to the ED with thought of suicide and harming others after being discharged from observation here on a voluntary psychiatric hold for same c/o 30 mins prior. He had not left the hospital grounds. Mental health had cleared him for discharge. He endorsed thoughts of suicide began to escalate after he was discharged; thoughts of jumping in front of traffic. He also states he was going to take his landlord to [facility]. He has made threats toward his landlord and others multiple times in the past. He was medically cleared and re-evaluated by mental health who feels he needs further psychiatric care. He was anxious when evaluated in the ED and was given 0.5mg po ativan with good effect. He denied taking any drugs or Etoh in the short intervening time between being discharged and re-evaluated. Overnight he remained medically stable with no behavioral issues. He is re- evaluated by mental health and is deemed safe for discharge home once again. discharge discussed with Dr Brennan. Home Meds and New Rx's Prescriptions: Continued omeprazole 20 MG capsule,delayed release(DR/EC) 20 mg PO QAM RF: 0 magnesium oxide 400 mg (241.3 mg magnesium) tablet 400 mg PO QAM RF: 0 sennosides [senna] 8.6 mg Tablet 8.6 mg PO BID PRNRF: 0 sertraline 100 mg Tablet 100 mg PO DAILY RF: 0 hydroxyzine pamoate [Vistaril] 25 mg Capsule 50 mg PO BID RF: 0 ondansetron 4 mg tablet,disintegrating 4 mg PO Q8H PRN (Reason: nausea and vomiting) Qty: 7 RF: 0 trazodone 50 mg tablet 50 mg PO HS RF: 0 olanzapine 5 mg tablet 5 mg PO DAILY RF: 0 melatonin 3 mg tablet 6 mg PO HS RF: 0 pravastatin 20 mg tablet 20 mg PO HS RF: 0 levothyroxine 88 mcg Tablet 88 mcg PO DAILY RF: 0 prazosin 2 mg Capsule 2 mg PO QHS RF: 0 olanzapine 5 mg tablet RF: 0 gabapentin 300 mg capsule 300 mg PO .QHS RF: 0 Discharge Instructions Instructions: Suicide Prevention (DC) Referrals: Fariba Forde [Primary Care Provider] - Activity:: Activity as Tolerated Equipment/Supplies:: No Equipment Needed Diet:: As Tolerated Discharge Orders Discharge Orders: Discharge Order (Routine); Ordered 09/29/20 Ordered By: Maddie Awad DS: Summary Time Spent with Patient providing and/or coordinating discharge services: Less than 30 minutes Status at Discharge Functional status at discharge: independent ambulation Overall status at discharge: patient is back to baseline Mental Status: other (baseline ) Speech and Movement: speech and movement normal Mood: irritable mood and other (baseline ) Affect: anxious affect Exam Const General: cooperative and no acute distress Nutritional Appearance: average body habitus Orientation: alert and oriented x3 HENMT Head: normocephalic and atraumatic Eyes Sclera: sclerae normal Pupils: PERRL Neck Neck: full ROM and no JVD Resp Effort & Inspection: normal respiratory effort Auscultation: clear to auscultation bilaterally and diminished lung sounds Cardio Rate: regular rate Rhythm: regular rhythm Heart Sounds: S1 normal and S2 normal GI Palpation: soft and nontender Skin General skin exam: no rashes or lesions noted Neuro General: no focal motor deficits Cognition: normal cognition Speech: speech normal Extrem General: no pedal edema and no calf tenderness Psych Mental Status: other (baseline ) Speech and Movement: speech and movement normal Mood: irritable mood and other (baseline ) Affect: anxious affect Attitude: cooperative DS: Data Vitals/I&O Vitals and I&O: Vital Signs Temperature 36.6 C 09/29/20 08:27 Temperature Source Tympanic 09/29/20 08:27 Pulse 93 H 09/29/20 08:27 Pulse Rhythm Regular 09/29/20 08:12 Respiratory Rate 18 09/29/20 08:27 Respiratory Effort Non-Labored 09/29/20 08:12 Respiratory Depth Normal 09/29/20 08:12 Respiratory Pattern Normal 09/29/20 08:12 Blood Pressure 116/80 09/29/20 08:27 Blood Pressure Position Sitting 09/28/20 16:31 Pulse Oximetry 96 09/29/20 08:27 Oxygen Delivery Method Room Air 09/29/20 08:27 Oxygen Flow Rate 0 09/29/20 08:27 Pain Level 0 09/29/20 08:27 Intake & Output 09/28/20 09/29/20 09/29/20 23:59 11:59 23:59 Intake Total 240 / 720 480 / 720 Balance 240 / 720 480 / 720 Weight 80.739 kg Intake: Oral 240 / 720 480 / 720 Other: Stool Size Moderate Stool Characteristics Formed Voiding Methods Toilet Data Completed and Pending Labs on day of discharge: Labs from last 24 hours 09/28/20 09/28/20 09/28/20 17:16 16:33 16:33 WBC RBC Hgb Hct MCV MCH MCHC RDW Plt Count MPV Immature Gran % Neutrophils % Band Neutrophils % Lymphocytes % Atypical Lymphs % Monocytes % Eosinophils % Basophils % Metamyelocytes % Myelocytes % Promyelocytes % Other Cells % Nucleated RBC % Absolute Neutrophils Absolute Lymphocytes Absolute Monocytes Absolute Eosinophils Absolute Basophils RBC Morphology Polychromasia Hypochromasia Poikilocytosis Basophilic Stippling Anisocytosis Microcytosis Macrocytosis Spherocytes Tear Drop Cells Ovalocytes Stomatocytes [place] Bodies [place] Cells/Echinocytes Acanthocytes (Spur) Schistocytes Sodium Potassium Chloride Carbon Dioxide Anion Gap BUN Creatinine Estimated GFR/1.73 m2 Glucose Calcium Total Bilirubin AST ALT Alkaline Phosphatase Total Protein Albumin TSH Urine Color Cancelled Urine Clarity Cancelled Urine pH Cancelled Ur Specific [place] Cancelled Urine Protein Cancelled Urine Ketones Cancelled Urine Blood Cancelled Urine Nitrite Cancelled Urine Bilirubin Cancelled Urine Urobilinogen Cancelled Ur Leukocyte Esterase Cancelled Urine Glucose Cancelled Salicylates Urine Opiates Screen Cancelled Urine Methadone Screen Cancelled Acetaminophen Ur Barbiturates Screen Cancelled Ur Tricyclics Screen Cancelled Ur Amphetamines Screen Cancelled U Benzodiazepines Scrn Cancelled Urine Cocaine Screen Cancelled Ur THC Screen Cancelled Ethyl Alcohol COVID-19 Source Nasal/nares SARS-CoV-2 (PCR) Negative 09/28/20 09/28/20 09/28/20 16:31 16:31 16:31 WBC Cancelled RBC Cancelled Hgb Cancelled Hct Cancelled MCV Cancelled MCH Cancelled MCHC Cancelled RDW Cancelled Plt Count Cancelled MPV Cancelled Immature Gran % Cancelled Neutrophils % Cancelled Band Neutrophils % Cancelled Lymphocytes % Cancelled Atypical Lymphs % Cancelled Monocytes % Cancelled Eosinophils % Cancelled Basophils % Cancelled Metamyelocytes % Cancelled Myelocytes % Cancelled Promyelocytes % Cancelled Other Cells % Cancelled Nucleated RBC % Cancelled Absolute Neutrophils Cancelled Absolute Lymphocytes Cancelled Absolute Monocytes Cancelled Absolute Eosinophils Cancelled Absolute Basophils Cancelled RBC Morphology Cancelled Polychromasia Cancelled Hypochromasia Cancelled Poikilocytosis Cancelled Basophilic Stippling Cancelled Anisocytosis Cancelled Microcytosis Cancelled Macrocytosis Cancelled Spherocytes Cancelled Tear Drop Cells Cancelled Ovalocytes Cancelled Stomatocytes Cancelled [place] Bodies Cancelled [place] Cells/Echinocytes Cancelled Acanthocytes (Spur) Cancelled Schistocytes Cancelled Sodium Cancelled Potassium Cancelled Chloride Cancelled Carbon Dioxide Cancelled Anion Gap Cancelled BUN Cancelled Creatinine Cancelled Estimated GFR/1.73 m2 Cancelled Glucose Cancelled Calcium Cancelled Total Bilirubin Cancelled AST Cancelled ALT Cancelled Alkaline Phosphatase Cancelled Total Protein Cancelled Albumin Cancelled TSH Cancelled Urine Color Urine Clarity Urine pH Ur Specific [place] Urine Protein Urine Ketones Urine Blood Urine Nitrite Urine Bilirubin Urine Urobilinogen Ur Leukocyte Esterase Urine Glucose Salicylates Cancelled Urine Opiates Screen Urine Methadone Screen Acetaminophen Cancelled Ur Barbiturates Screen Ur Tricyclics Screen Ur Amphetamines Screen U Benzodiazepines Scrn Urine Cocaine Screen Ur THC Screen Ethyl Alcohol Cancelled COVID-19 Source SARS-CoV-2 (PCR) [facility] Medical History Anxiety Bipolar disorder COPD (chronic obstructive pulmonary disease) GERD (gastroesophageal reflux disease) Hypercholesterolemia Hypothyroid Traumatic pneumothorax 2017, chest tube x2 Surgical History History of ankle surgery S/P thoracostomy tube placement Social History Smoking/Tobacco Use Status: Current every day Tobacco Type: cigarettes Smoking risk assessment performed?: Yes Alcohol Intake: never Drug use: Daily Substance use type: marijuana Current gender identity: male Do you feel safe at home: Yes Do you feel safe in your relationship?: Yes
--- NOTE | 2020-09-29 16:17 | PDOC.CMPRO ---
- If Service Date Differs Date of service: 09/29/20 Time of Service: 16:17 Care Management Progress Note S/O: Asim was sitting up on his bed when CM met with him. CM discussed his discharge yesterday, and asked him about his SI/HI today. He denied SI/HI, and reported that he is emotionally drained. He stated that his plan is to go home, pack up some of his things and stay at a friends house until he is feeling more stable. OLIMPIA coordinated a visit with [employer] case therapist, Maegan, who made a contract for safety with Asim, including short and long term care administrator goals and planning for Asim to use coping skills if he feels that he is becoming dysregulated. OLIMPIA coordinated a ride home with KUMAR Brown. He was not released until Kevin was waiting for him, and Kevin planned to bring him directly home. A: Asim is a 54 year old male admitted to [facility] on 09/28/20 for SI/HI. P: Asim will return home with a contract for safety with [facility] KUMAR. He is supported in the community by his [employer] housing case manager, and other supports at [facility]. He will follow up with his PCP and discharge plan of care. Kevin from [employer] will transport him home via private vehicle. OLIMPIA will continue to follow.
== END 2020-09-29 15:05 | disposition home or self-care (01) | DRG 885 ==
LOC: ER 16:21 → MS 18:26
PROVIDERS: Admitting Provider Family Medicine; Emergency Provider Physician Assistant; PCP Nurse Practitioner; Visit Provider Family Medicine
DX: F31.9 Bipolar disorder, unspecified (principal); R45.851 Suicidal ideations; R45.850 Homicidal ideations; F17.210 Nicotine dependence, cigarettes, uncomplicated; J44.9 Chronic obstructive pulmonary disease, unspecified; Z20.822 Contact with and (suspected) exposure to COVID-19; K21.9 Gastro-esophageal reflux disease without esophagitis; E03.9 Hypothyroidism, unspecified; E78.00 Pure hypercholesterolemia, unspecified; F41.9 Anxiety disorder, unspecified
CPT/HCPCS: 80053; 80307; 87635; 99285; 80320; 80329; 81003; 84443; 85025; 99217; 99219; 99284

== ENCOUNTER 2020-09-30 18:48 | Observation (INO) | payer MEDICAID, SELFPAY ==
[2020-09-30 18:49] VITALS: BP 152/107; PULSE 100; RESP 16; TEMP 37.1; O2SAT 93
--- NOTE | 2020-09-30 19:35 | CMSP_ITS ---
- If Service Date Differs Date of service: 09/30/20 Time of Service: 19:35 Care Management Safety Plan Status: Voluntary Chief Complaint: Asim is a 54 year old male who receives services through the [facility] at [facility]. Asim has a diagnosis of Bipolar Disorder on record and he has had several psychiatric hospitalizations for SI and HI. Asim presents today because he is upset with his neighbors and is threatening to harm them.? ?CM will respond to ED to assess patient after patient has been medically cleared and assessed by screener. If screener deems patient meets criteria for psychiatric stabilization CM will facilitate interdepartmental huddle with [facility] screener for safety planning considerations and meet with patient to review [facility] policy and safety plan, establish individual wishes for treatment and maintain patient rights. In the interim; please note safety plan below to guide patient care while awaiting further assessment in the ED.? SAFETY PLAN: 1. Will remain on suicide precautions and in paper clothes.? 2. Will remain in room under direct supervision of one-on-one staff at all times provided by [employer], ARMATURE WINDER REPAIR, WEBBING SUPERVISOR writing tutor. 3. May have paper cups, plates, finger foods as well as a cardboard spoon with which to eat meals.?? 4. Follow [facility] Management of the Admitted Behavioral Health Patient policy. 5. Comfort bath system only. 6. No personal belongings. 7. No visitors. 8. Bathroom: With escort while in the ED, may use bathroom available in room without supervision on Med/Surg. 8. Activities:? Soft cart items, music tablet, television and remote if available, at RN discretion. 8. Phone: May use his cell phone at RN discretion. 9. Due to VOLUNTARY status, if patient wishes to leave [facility], staff will contact the [facility] Roof Panel Hanger ([phone]) and On-Call Wet Process Miller Head ([phone]) as soon as possible.? In the event of elopement, notify [place] [employer] Police ([phone]).? If deemed appropriate for inpatient psychiatric care, safety plan will be established with patient, and care team, to adhere to patient goals, identify restrictions based on behavioral status, address nutrition, and determine allowed personal belongings, tools for hygiene and personal care. As well plan will determine level of activity including ambulation, level of supervision, visitors, and determine privileges based on level of acuity, behaviors and level of engagement by patient.
[2020-09-30 19:36] LABS: Abs Immature Grans 0.07 10^3/uL (0.0-0.06); Absolute Eosinophil Count 0.11 10^3/uL (0.0-0.7); Absolute Lymphocyte Count 3.09 10^3/uL (1.2-3.4); Absolute Neutrophil Count 11.49 10^3/uL (1.2-6.7); Basophils % 0.3; Eosinophils % 0.7; HCT 44.9 % (40.0-50.0); HGB 15.1 g/dL (13.5-17.5); Immature Grans % 0.5; Lymphocytes % 20.1; MCH 27.5 pg (27.0-33.0); MCHC 33.6 % (32.0-36.0); MCV 81.8 fL (80-95); MPV 10.2 fL (8.0-11.0); Monocytes % 3.6; Neutrophils % 74.8; Nucleated RBC 0 %; Platelet Count 228 10^3/uL (130-400); RBC 5.49 10^6/uL (4.36-5.78); RDW 13.6 % (11.8-14.1); RDW-SD 40.3 fL; WBC 15.36 10^3/uL (4.4-10.8)
[2020-09-30 19:37] LABS: Absolute Basophil Count 0.05 10^3/uL (0.0-0.2); Absolute Monocyte Count 0.55 10^3/uL (0.1-0.8)
--- NOTE | 2020-09-30 19:37 | ED.GENADUL_ITS ---
Discharge Plan Disposition Patient Disposition: [facility] INPATIENT Condition: Stable Discharge Details Clinical Impression: Suicidal thoughts Admit Date/Time: 09/30/20 21:53 Admit Provider: Chung Perry Attending Provider: Chung Perry Primary Care Provider: Fariba Forde ED Provider: Francisco Majano Discharge Data Discharge Date/Time-TO BE ENTERED AT DEPARTURE: 09/30/20 22:20 Medical Decision Making 54-year-old male with history of bipolar disorder, prior suicidality and homicidality, recently admitted and then discharged for psychiatric illness, here with suicidality. Patient is here voluntarily.. Patient is not vaccinated for Covid but has no symptoms. He did recently test negative. He is interested in COVID-19 vaccination. Patient medically screened and no acute medical condition identified on examination. I do not think labs are warranted but I have ordered them to expedite transfer to psychiatric facility. Labs reviewed and patient does have leukocytosis. This seems to be a chronic issue as he has had it multiple times in the past. No signs of focal bacterial or viral infection on exam. Electrolytes are within normal limits. Covid test negative on 09/28. Will repeat today again out of abundance of caution and as required by potential receiving facilities. HPI General Mode of arrival: EMS . Date/Time Provider Initiated Documentation: 09/30/20 19:14 . Limitations to Documentation: no limitations . Information obtained by: EMS . HPI Narrative: 54-year-old male with history of depression, prior suicidality and homicidality, bipolar disorder, tobacco abuse, lung cancer, here with chief complaint of suicidality. Patient has severe depression and just wants to end it. He has no plan but notes that if he had a gun he would not hesitate. No modifiers. He is here voluntarily today seeking treatment. He is requesting counseling. Patient also has intermittent thoughts of homicidality toward his neighbors. Patient denies hallucinations. Patient denies ingestions. Related Data Home Medications Medication Instructions Recorded Confirmed omeprazole 20 mg PO QAM 10/16/13 09/30/20 magnesium oxide 400 mg PO QAM 10/20/19 09/30/20 melatonin 6 mg PO HS 12/19/19 09/30/20 olanzapine 5 mg PO DAILY 12/19/19 09/30/20 pravastatin 20 mg PO HS 12/19/19 09/30/20 trazodone 50 mg PO HS 12/19/19 09/30/20 hydroxyzine pamoate [Vistaril] 50 mg PO BID 04/05/20 09/30/20 sennosides [senna] 8.6 mg PO BID PRN 04/05/20 09/30/20 sertraline 100 mg PO DAILY 04/05/20 09/30/20 levothyroxine 88 mcg PO DAILY 07/18/20 09/30/20 prazosin 2 mg PO QHS 07/18/20 09/28/20 ondansetron 4 mg PO Q8H PRN #7 tab 09/24/20 09/30/20 gabapentin 300 mg PO .QHS 09/28/20 09/30/20 olanzapine mg 09/28/20 09/28/20 Previous Rx's Medication Instructions Recorded ondansetron 4 mg PO Q8H PRN #7 tab 09/24/20 Allergies Allergy/AdvReac Type Severity Reaction Status Date / Time Sulfa (Sulfonamide Allergy Severe Swelling/Ed Unverified 09/28/20 17:30 Antibiotics) jostin General Stated Complaint: PsychEval ABA: 2 Review of Systems All systems reviewed & are unremarkable except as noted in HPI and below Respiratory Respiratory: Denies cough Psychiatric Psychiatric: Reports as per HPI [facility] Medical History Anxiety Bipolar disorder COPD (chronic obstructive pulmonary disease) GERD (gastroesophageal reflux disease) Hypercholesterolemia Hypothyroid Traumatic pneumothorax 2016, chest tube x2 Surgical History History of ankle surgery S/P thoracostomy tube placement Social History (Updated 10/01/20 @ 00:07 by Chung Perry) Smoking/Tobacco Use Status: Current every day Tobacco Type: cigarettes Smoking risk assessment performed?: Yes Alcohol Intake: never Drug use: Daily Substance use type: marijuana Current gender identity: male Do you feel safe at home: Yes Do you feel safe in your relationship?: Yes Additional Social history: Lives in a private apartment. Has [facility] case management Exam Const General: cooperative HENMT Head: normocephalic and atraumatic Mouth: moist mucous membranes Eyes Conjunctivae: normal conjunctivae Sclera: normal sclerae EOM: EOM intact bilaterally Neck Neck: trachea midline and supple Resp Auscultation: clear to auscultation bilaterally, no rales, no rhonchi and no wheezes Cardio Rate: regular rate and not tachycardic Rhythm: regular rhythm GI Palpation: soft, not firm, no guarding, no masses, not rigid and nontender Skin General skin exam: no rashes or lesions noted Neuro General: patient alert, patient awake, patient oriented x3 and tone normal Extrem General: no edema Psych Appearance: grossly normal Mental Status: mental status grossly normal Speech and Movement: speech and movement normal Mood: other (Depressed) Attitude: cooperative Thought Content: no hallucinations and suicidality Course Vital Signs Vital signs: Vital Signs Temperature 37.1 C 09/30/20 18:49 Pulse 100 H 09/30/20 18:49 Respiratory Rate 16 09/30/20 18:49 Blood Pressure 152/107 H 09/30/20 18:49 Pulse Oximetry 93 09/30/20 18:49 Temperature 37.1 C 09/30/20 18:49 Temperature Source Temporal Artery Scan 09/30/20 18:49 Pulse 100 H 09/30/20 18:49 Respiratory Rate 16 09/30/20 18:49 Respiratory Effort Non-Labored 09/30/20 18:51 Blood Pressure 152/107 H 09/30/20 18:49 Blood Pressure Position Sitting 09/30/20 18:49 Pulse Oximetry 93 09/30/20 18:49 Oxygen Delivery Method Room Air 09/30/20 18:49 Oxygen Flow Rate 0 09/30/20 18:49 Pain Level 0 09/30/20 18:49
[2020-09-30 19:54] LABS: ALT 34 U/L (16-63); AST 24 U/L (15-37); Albumin 4.1 g/dL (3.4-5.0); Alkaline Phosphatase 100 U/L (46-116); Anion Gap 11.1 mmol/L (3-11); BUN 17 mg/dL (7-18); Bilirubin, Total 0.6 mg/dL (0.2-1.0); CO2 23.9 mmol/L (21.0-32.0); Calcium 9.1 mg/dL (8.5-10.1); Chloride 101 mmol/L (98-107); Glucose 116 mg/dL (74-106); Potassium 3.6 mmol/L (3.5-5.1); Sodium 136 mmol/L (136-145); Total Protein 8.2 g/dL (6.4-8.2)
[2020-09-30 19:55] LABS: ETHANOL BLOOD < 3.0 mg/dL (<3)
[2020-09-30 20:05] LABS: Source Nasal/Nares
[2020-09-30 20:13] LABS: Salicylate 5.3 mg/dL (<2.8)
[2020-09-30 20:14] LABS: Acetaminophen < 2 ug/mL (10-30)
--- NOTE | 2020-09-30 20:56 | PDOC.MHCN ---
Date of service: 09/30/20 Time of Service: 20:56 Mental Health Crisis Note Presenting Issue How did you arrive at the ED and why did you come: The client was referred for a field evaluation by DISHWASHING MACHINE REPAIRER integration analyst Maegan Joel. It was reported that the client endorsed suicidal ideation, with proposed method of cutting his arms/wrists, and homicidal ideation without specific plan directed toward his neighbors. Diverted to [facility] ED for in-patient referral. Precipitating Factors The client was assessed outside of his apartment. He presented in casual season-appropriate attire with cade appearance and mild dishevelment. Fully alert and oriented to time, person, place and situation with no deficits in memory noted. Eye contact excellent. Behaviorally calm, cooperative, and engaged with no evidence of acute distress or indicators of escalating demeanor. No evidence of delusions or hallucinations, however client continued to perseverate on his neighbors throughout interaction. Speech was otherwise relaxed and conversational. Similar to previous presentations noted throughout the week, the client continued to express frustration with ongoing interpersonal disputes with his neighbors. He stated that They have no clue who they're fucking with. I'll take them to my world and they won't come back. He did not identify a specific plan to harm any of the individuals he cited as neighbors and went on to state It's a reactionary thing. It could happen at any time. He reported a deterrent toward physical altercation with his neighbors as Well, I don't want to go to half-way. When asked if some type of resolution could be achieved where he could feel safe at home, he reported Nope. The circus begins every night. They keep me up all night, they don't take care of their kids, and nobody does anything. I'm gonna lose it. I can't take this shit anymore. He endorsed SI during interaction and stated that I'm going to take a razor down my arm if I stay here. I slept in the park last night. He did not identify deterrents to self-harming other than an alternative living arrangement. Additional notes: Client reported that he has been medication compliant. Disposition BEHAVIOR: Calm, cooperative, appropriate during all interactions. EYE CONTACT: Excellent MOOD: Depressed AFFECT: Mixed / euthymic, mild agitation when discussing stress trigger (neighbors) APPETITE: Poor SLEEP(trouble falling/staying asleep: Dysregulated Plan The client has agreed to a voluntary in-patient hospitalization referral for mood stabilization and the facilitation of improved coping skills. This leader writer contacted 911 to arrange for transport to [facility] and debriefed on-scene EMS / LE. The client was cooperative with no issues reported. It was communicated to the client and Dr. Majano at [facility] ED that based on the severity of his statements and the potential for impulsivity and harmful behaviors directed toward himself or others, a warrant may be indicated if he decides to elope from the ED. The client verbalized understanding of this and reported that he was looking forward to getting help. Alternatives to hospitalization were discussed (I.E., crisis-bed referral, DISHWASHING MACHINE REPAIRER follow-up), however the client was not receptive to these suggestions. Referrals / labs faxed to: [facility], [facility], [facility], [facility]. Signature Clinician's Name/Title: KADEN Sanchez clinician / hp
[2020-09-30 21:02] LABS: *AMPHETAMINES SCREEN URINE Negative (Negative); *BARBITURATES SCREEN URINE Negative (Negative); *BENZODIAZEPINES SCREEN URINE Negative (Negative); Cannabinoids THC Positive (Negative); Cocaine Screen,Urine Negative (Negative); METHADONE URINE SCREEN Negative (Negative); OPIATES URINE SCREEN Negative (Negative)
[2020-09-30 21:08] LABS: Tricyclic Antidepressants Negative (Negative)
[2020-09-30 22:37] VITALS: BP 152/107; PULSE 100; RESP 16; TEMP 37.1; O2SAT 93
[2020-09-30 22:39] VITALS: BP 110/73; PULSE 85; RESP 19; TEMP 36.2; O2SAT 96
[2020-09-30 22:53] LABS: COVID-19 PCR Negative (Negative)
--- NOTE | 2020-09-30 23:50 | HPE_ITS ---
Date of service: 09/30/20 Time of Service: 23:50 Assessment and Plan Assessment and plan (1) Suicidal thoughts: Status: Acute Assessment and plan: Continues ongoing depressive episode with suicidal thoughts. Was here last week for the same but left after one day and no psych placement. This time no HI. He states he is taking his medication this time, but only has a few days back on them regularly. Resume his outpatient medications. MOnitor closly. He is medically clear for psychiatric placement (2) Tobacco abuse: Status: Chronic Assessment and plan: Declines NRT for now. precontemplative. (3) Hypothyroid: Status: Chronic Assessment and plan: Has recent normal TSH, continue current lT4 dose Qualifiers: Hypothyroidism type: acquired Qualified Code(s): E03.9 - Hypothyroidism, unspecified (4) COPD (chronic obstructive pulmonary disease): Status: Chronic Assessment and plan: Stable, no exacerbation evident. Continue DUC prn only. (5) DVT prophylaxis: Status: Acute Assessment and plan: LMWH given he is a smoker and >50yo (6) Discharge planning issues: Status: Acute Assessment and plan: Asim is voluntarily admitted for psych hold. He is full code. History of Present Illness History of Present Illness Chief Complaint: suicidal ideation Narrative: 54 yo M with history of bipolar disorder and multiple recent admisssions seeking psychiatric care presents again today feeling depressed and suicidal. He was admitted 09/23 to 09/24/20 for suicidal and homocidal ideation. It was voluntary, and he decided to leave befor psych bed was available. Was following up with [facility] but felt he was not safe at home and ED evaluation recommended. He stated he would shoot himself in the head if he had a gun. He denies taking any ovedose. Review of Systems Constitutional Constitutional: Denies anorexia, Denies chills, Denies fever(s), Denies headache(s), Denies poor appetite and Denies weakness Eyes Eyes: Denies change in vision and Denies irritation ENT Ears, Nose, Mouth, and Throat: Denies dizziness, Denies headache(s), Denies nasal congestion, Denies nasal discharge and Denies sore throat Cardiovascular Cardiovascular: Denies chest pain, Denies palpitations and Denies orthopnea Respiratory Respiratory: Denies cough, Denies excessive phlegm production and Denies wheezing Gastrointestinal Gastrointestinal: Denies abdominal pain, Denies heartburn, Denies diarrhea and Denies vomiting Genitourinary Genitourinary: Denies hematuria, Denies dysuria and Denies urinary incontinence Integumentary/Breasts Skin/Breast: Denies rash and Denies skin ulcer Neurologic Neurologic: Denies dizziness, Denies headache(s), Denies sensory deficit and Denies weakness Psychiatric Psychiatric: Denies auditory hallucinations, Denies mood swings, Denies panic attacks, Denies visual hallucinations, Denies homicidal ideation and Reports suicidal ideation Endocrine Endocrine: Denies palpitations Hematologic/Lymphatic Hematologic/Lymphatic: Denies easy bleeding Allergic/Immunologic Allergic/Immunologic: Denies wheezing PFSH Medical History Anxiety Bipolar disorder COPD (chronic obstructive pulmonary disease) GERD (gastroesophageal reflux disease) Hypercholesterolemia Hypothyroid Traumatic pneumothorax 2016, chest tube x2 Surgical History History of ankle surgery S/P thoracostomy tube placement Social History (Updated 10/01/20 @ 00:07 by Chung Perry) Smoking/Tobacco Use Status: Current every day Tobacco Type: cigarettes Smoking risk assessment performed?: Yes Alcohol Intake: never Drug use: Daily Substance use type: marijuana Current gender identity: male Do you feel safe at home: Yes Do you feel safe in your relationship?: Yes Additional Social history: Lives in a private apartment. Has [facility] case management Meds Allergies and Home Medications Allergies Allergy/AdvReac Type Severity Reaction Status Date / Time Sulfa (Sulfonamide Allergy Severe Swelling/Ed Unverified 09/28/20 17:30 Antibiotics) jostin Home Medications Medication Instructions Recorded Confirmed Type omeprazole 20 mg PO QAM 10/16/13 09/30/20 History magnesium oxide 400 mg PO QAM 10/20/19 09/30/20 History melatonin 6 mg PO HS 12/19/19 09/30/20 History olanzapine 5 mg PO DAILY 12/19/19 09/30/20 History pravastatin 20 mg PO HS 12/19/19 09/30/20 History trazodone 50 mg PO HS 12/19/19 09/30/20 History hydroxyzine pamoate [Vistaril] 50 mg PO BID 04/05/20 09/30/20 History sennosides [senna] 8.6 mg PO BID PRN 04/05/20 09/30/20 History sertraline 100 mg PO DAILY 04/05/20 09/30/20 History levothyroxine 88 mcg PO DAILY 07/18/20 09/30/20 History prazosin 2 mg PO QHS 07/18/20 09/28/20 History ondansetron 4 mg PO Q8H PRN #7 tab 09/24/20 09/30/20 Rx gabapentin 300 mg PO .QHS 09/28/20 09/30/20 History olanzapine mg 09/28/20 09/28/20 History Exam Narrative Exam Narrative: GEN: Alert and oriented, terse in responses, but cooperative, g arlene minimal details in history. No acute distress at rest. HEENT: Head atraumatic except 4cm shallow linear excoriation right forehead. Conjunctiva clear, no icterus. PEERL, EOMI. no rhinorrhea. MMM, OP benign. Neck is supple with no masses or lymphadenopathy, nl thyroid. LUNGS: CTAB with normal effort, no wheeze CV: RRR with no murmurs, gallops, or rubs. ABD: +BS, soft, NT/ND EXT: no cyanosis, clubbing, or edema MSK: No joint redness or swelling NEURO: CN 2-12 grossly intact. Normal movement of 4 extremities. Normal speech and coordination SKIN: No rashs or open wounds. PSYCH: depressed mood and affect. normal speech. not expressing AH/VH or paranoia. Results Labs Result diagrams: 09/30/20 19:25 09/30/20 19:25 Labs: Laboratory Results - last 24 hr 09/30/20 09/30/20 09/30/20 19:25 19:25 19:25 WBC 15.36 H RBC 5.49 Hgb 15.1 Hct 44.9 MCV 81.8 MCH 27.5 MCHC 33.6 RDW 13.6 Plt Count 228 MPV 10.2 Immature Gran % 0.5 Neutrophils % 74.8 Lymphocytes % 20.1 Monocytes % 3.6 Eosinophils % 0.7 Basophils % 0.3 Nucleated RBC % 0 Absolute Neutrophils 11.49 H Absolute Lymphocytes 3.09 Absolute Monocytes 0.55 Absolute Eosinophils 0.11 Absolute Basophils 0.05 Sodium 136 Potassium 3.6 Chloride 101 Carbon Dioxide 23.9 Anion Gap 11.1 H BUN 17 Creatinine 1.0 Estimated GFR/1.73 m2 >= 60.00 Glucose 116 H Calcium 9.1 Total Bilirubin 0.6 AST 24 ALT 34 Alkaline Phosphatase 100 Total Protein 8.2 Albumin 4.1 Salicylates 5.3 Urine Opiates Screen Urine Methadone Screen Acetaminophen < 2 Ur Barbiturates Screen Ur Tricyclics Screen Ur Amphetamines Screen U Benzodiazepines Scrn Urine Cocaine Screen Ur THC Screen Ethyl Alcohol < 3.0 COVID-19 Source SARS-CoV-2 (PCR) 09/30/20 09/30/20 20:00 20:41 WBC RBC Hgb Hct MCV MCH MCHC RDW Plt Count MPV Immature Gran % Neutrophils % Lymphocytes % Monocytes % Eosinophils % Basophils % Nucleated RBC % Absolute Neutrophils Absolute Lymphocytes Absolute Monocytes Absolute Eosinophils Absolute Basophils Sodium Potassium Chloride Carbon Dioxide Anion Gap BUN Creatinine Estimated GFR/1.73 m2 Glucose Calcium Total Bilirubin AST ALT Alkaline Phosphatase Total Protein Albumin Salicylates Urine Opiates Screen Negative Urine Methadone Screen Negative Acetaminophen Ur Barbiturates Screen Negative Ur Tricyclics Screen Negative Ur Amphetamines Screen Negative U Benzodiazepines Scrn Negative Urine Cocaine Screen Negative Ur THC Screen Positive A Ethyl Alcohol COVID-19 Source Nasal/nares SARS-CoV-2 (PCR) Negative Last Vital Signs Temp 36.2 C L 09/30/20 22:39 Pulse 85 09/30/20 22:39 Resp 19 09/30/20 22:39 BP 110/73 09/30/20 22:39 Pulse Ox 96 09/30/20 22:39 COVID-19 Screening Have you, or household traveled for leisure in last 14 days?: No Had IN PERSON contact w/suspected or confirmed C-19 person: No
[2020-10-01] MEDS: traZODone 50 MG TAB PO ×2 (00:23→19:55)
[2020-10-01] MEDS: Melatonin 3 MG TAB 6 MG PO ×2 (00:24→19:55)
[2020-10-01] MEDS: Gabapentin 300 MG CAP PO ×2 (00:24→19:55)
[2020-10-01] MEDS: Levothyroxine 88 MCG TAB PO (05:45)
[2020-10-01 08:53] VITALS: BP 104/80; PULSE 88; RESP 16; TEMP 36.2; O2SAT 96
[2020-10-01] MEDS: Magnesium Oxide 400 MG TAB PO (09:49)
[2020-10-01] MEDS: OLANZapine 5 MG TAB PO (09:49)
[2020-10-01] MEDS: Omeprazole 20 MG CAPCR PO (09:49)
[2020-10-01] MEDS: hydrOXYzine PAMOATE 25 MG CAP 50 MG PO ×2 (09:49→19:55)
[2020-10-01] MEDS: Sertraline 50 MG TAB 100 MG PO (09:49)
--- NOTE | 2020-10-01 10:20 | CMPROGNOTE_ITS ---
- If Service Date Differs Date of service: 10/01/20 Time of Service: 10:20 Care Management Progress Note S/O: Asim was sitting up in his bed when CM met with him. CM coordinated a visit with Brandon Dasilva and Cinthya from [facility]. They discussed the plan for Asim and asked him how he feels today about seeking inpatient psychiatric care. Asim is agreeable to treatment at this time. He reported that he feels safe at [facility], but does not feel that he has the ability to keep himself safe at home. He is also agreeable to going to a crisis bed. His team from [facility] will send referrals to [facility] and [place], as well as crisis beds that have available beds throughout the [facility]. CM asked if Asim is comfortable, which he stated that he does not need anything at this time. CM reviewed the plan with SEAMUS Mendes, and SEAMUS Wray Cook Fishing Vessel. CM will continue to follow. A: Asim is a 54 year old male admitted to [facility] on 09/30/20 with SI. P: Asim will remain at [facility] while awaiting inpatient psychiatric placement. Referrals are being placed at [facility], [facility] and crisis beds. Once he is accepted he will transport via Cloth Dyer, if inpatient, or FIRE EXTINGUISHER REPAIRER INSPECTOR, if crisis bed. He will follow up with his care team from [facility] once he returns home. CM will continue to follow.
--- NOTE | 2020-10-01 10:20 | PDOC.CMPRO ---
- If Service Date Differs Date of service: 10/01/20 Time of Service: 10:20 Care Management Progress Note S/O: Asim was sitting up in his bed when CM met with him. CM coordinated a visit with Brandon Dasilva and Cinthya from [facility]. They discussed the plan for Asim and asked him how he feels today about seeking inpatient psychiatric care. Asim is agreeable to treatment at this time. He reported that he feels safe at [facility], but does not feel that he has the ability to keep himself safe at home. He is also agreeable to going to a crisis bed. His team from [facility] will send referrals to [facility] and [place], as well as crisis beds that have available beds throughout the [facility]. CM asked if Asim is comfortable, which he stated that he does not need anything at this time. CM reviewed the plan with SEAMUS Mendes, and SEAMUS Wray Welding Machine Operator Resistance. CM will continue to follow. A: Asim is a 54 year old male admitted to [facility] on 09/30/20 with SI. P: Asim will remain at [facility] while awaiting inpatient psychiatric placement. Referrals are being placed at [facility], [facility] and crisis beds. Once he is accepted he will transport via Furnace Charging Machine Operator, if inpatient, or TAX PROCESSOR, if crisis bed. He will follow up with his care team from [facility] once he returns home. CM will continue to follow.
--- NOTE | 2020-10-01 11:16 | CMSP_ITS ---
- If Service Date Differs Date of service: 10/01/20 Time of Service: 11:16 Care Management Safety Plan Status: Voluntary Chief Complaint: Asim is a 54 year old male who receives services through the [facility] at [facility]. Asim has a diagnosis of Bipolar Disorder on record and he has had several psychiatric hospitalizations for SI and HI. Asim presented to the ED because he was upset with his neighbors and is threatening to harm them.? ?CM will respond to ED to assess patient after patient has been medically cleared and assessed by screener. If screener deems patient meets criteria for psychiatric stabilization CM will facilitate interdepartmental huddle with [facility] screener for safety planning considerations and meet with patient to review [facility] policy and safety plan, establish individual wishes for treatment and maintain patient rights. In the interim; please note safety plan below to guide patient care while awaiting further assessment in the ED.? SAFETY PLAN: 1. Will remain on suicide precautions and in paper clothes.? May have own clot hes, at RN discretion. 2. Will remain in room under direct supervision of one-on-one staff at all times provided by [employer], HAY SORTER, BIZTALK SOFTWARE DEVELOPER cell room operator. 3. May have paper cups, plates, finger foods as well as a cardboard spoon with which to eat meals.?? 4. Follow [facility] Management of the Admitted Behavioral Health Patient policy. 5. Comfort bath system only. May shower, at RN discretion. 6. Personal belongings: may have his tablet, glasses, hair brush, and other items at RN discretion. 7. No visitors. 8. Bathroom: With escort while in the ED, may use bathroom available in room without supervision on Med/Surg. 8. Activities:? Soft cart items, music tablet, television and remote if available, at RN discretion. 8. Phone: May use his cell phone at RN discretion. 9. Due to VOLUNTARY status, if patient wishes to leave [facility], staff will contact the [facility] Manager Statistics ([phone]) and On-Call Power Lineman Technician ([phone]) as soon as possible.? In the event of elopement, notify [facility] Police ([phone]).? If deemed appropriate for inpatient psychiatric care, safety plan will be established with patient, and care team, to adhere to patient goals, identify restrictions based on behavioral status, address nutrition, and determine allowed personal belongings, tools for hygiene and personal care. As well plan will determine level of activity including ambulation, level of supervision, visitors, and determine privileges based on level of acuity, behaviors and level of engagement by patient.
[2020-10-01 15:08] VITALS: BP 125/85; PULSE 78; RESP 18; TEMP 36.5; O2SAT 95
--- NOTE | 2020-10-01 15:21 | W.PM.PROGNOT ---
Date of Service Date of service: 10/01/20 Time of Service: Assessment and Plan Assessment and plan (1) Suicidal thoughts: Start date: 10/01/20 Start time: Status: Acute Assessment and plan: States not having SI or HI today Feels fine, eating lunch. Does not want to pursue lung ca diagnosis Awaiting crisis bed at this time. 1:1 observer (2) Tobacco abuse: Start date: 10/01/20 Start time: Status: Chronic Assessment and plan: Declines NRT for now. precontemplative. (3) Hypothyroid: Start date: 10/01/20 Start time: Status: Chronic Assessment and plan: Has recent normal TSH, continue current lT4 dose Qualifiers: Hypothyroidism type: acquired Qualified Code(s): E03.9 - Hypothyroidism, unspecified (4) COPD (chronic obstructive pulmonary disease): Start date: 10/01/20 Start time: Status: Chronic Assessment and plan: Stable, no exacerbation evident. Continue DUC prn only. (5) DVT prophylaxis: Start date: 10/01/20 Start time: : Status: Acute Assessment and plan: LMWH given he is a smoker and >50yo (6) Discharge planning issues: Start date: 10/01/20 Start time: : Status: Acute Assessment and plan: Asim is voluntarily admitted for psych hold. He is full code. discussed with Dr. Brennan Subjective Subjective Interval history since last seen: Reports no thoughts of SI. 1:1 clinical observer. Awaiting crisis bed at this time. No interest in getting his lungs looked at further. Exam Narrative Exam Narrative: GEN: Alert and oriented, terse in responses, but cooperative, gives minimal details in history. No acute distress at rest. HEENT: Head atraumatic except 4cm shallow linear excoriation right forehead. Conjunctiva clear, no icterus. PEERL, EOMI. no rhinorrhea. MMM, OP benign. Neck is supple with no masses or lymphadenopathy, nl thyroid. LUNGS: CTAB with normal effort, no wheeze CV: RRR with no murmurs, gallops, or rubs. ABD: +BS, soft, NT/ND EXT: no cyanosis, clubbing, or edema MSK: No joint redness or swelling NEURO: CN 2-12 grossly intact. Normal movement of 4 extremities. Normal speech and coordination SKIN: No rashs or open wounds. PSYCH: depressed mood and affect. normal speech. not expressing AH/VH or paranoia. Objective Last Vital Signs Temp 36.5 C 10/01/20 15:08 Pulse 78 10/01/20 15:08 Resp 18 10/01/20 15:08 BP 125/85 10/01/20 15:08 Pulse Ox 95 10/01/20 15:08 Laboratory Results - last 24 hr 09/30/20 09/30/20 09/30/20 19:25 19:25 19:25 WBC 15.36 H RBC 5.49 Hgb 15.1 Hct 44.9 MCV 81.8 MCH 27.5 MCHC 33.6 RDW 13.6 Plt Count 228 MPV 10.2 Immature Gran % 0.5 Neutrophils % 74.8 Lymphocytes % 20.1 Monocytes % 3.6 Eosinophils % 0.7 Basophils % 0.3 Nucleated RBC % 0 Absolute Neutrophils 11.49 H Absolute Lymphocytes 3.09 Absolute Monocytes 0.55 Absolute Eosinophils 0.11 Absolute Basophils 0.05 Sodium 136 Potassium 3.6 Chloride 101 Carbon Dioxide 23.9 Anion Gap 11.1 H BUN 17 Creatinine 1.0 Estimated GFR/1.73 m2 >= 60.00 Glucose 116 H Calcium 9.1 Total Bilirubin 0.6 AST 24 ALT 34 Alkaline Phosphatase 100 Total Protein 8.2 Albumin 4.1 Salicylates 5.3 Urine Opiates Screen Urine Methadone Screen Acetaminophen < 2 Ur Barbiturates Screen Ur Tricyclics Screen Ur Amphetamines Screen U Benzodiazepines Scrn Urine Cocaine Screen Ur THC Screen Ethyl Alcohol < 3.0 COVID-19 Source SARS-CoV-2 (PCR) 09/30/20 09/30/20 20:00 20:41 WBC RBC Hgb Hct MCV MCH MCHC RDW Plt Count MPV Immature Gran % Neutrophils % Lymphocytes % Monocytes % Eosinophils % Basophils % Nucleated RBC % Absolute Neutrophils Absolute Lymphocytes Absolute Monocytes Absolute Eosinophils Absolute Basophils Sodium Potassium Chloride Carbon Dioxide Anion Gap BUN Creatinine Estimated GFR/1.73 m2 Glucose Calcium Total Bilirubin AST ALT Alkaline Phosphatase Total Protein Albumin Salicylates Urine Opiates Screen Negative Urine Methadone Screen Negative Acetaminophen Ur Barbiturates Screen Negative Ur Tricyclics Screen Negative Ur Amphetamines Screen Negative U Benzodiazepines Scrn Negative Urine Cocaine Screen Negative Ur THC Screen Positive A Ethyl Alcohol COVID-19 Source Nasal/nares SARS-CoV-2 (PCR) Negative
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
[2020-10-01 19:50] VITALS: BP 125/87; PULSE 67; RESP 17; TEMP 36.1; O2SAT 96
[2020-10-01] MEDS: Mylanta Suspension 30 ML CUP PO (20:59)
[2020-10-02] MEDS: Levothyroxine 88 MCG TAB PO (06:00)
[2020-10-02 07:13] LABS: Platelet Count 196 10^3/uL (130-400)
[2020-10-02] MEDS: hydrOXYzine PAMOATE 25 MG CAP 50 MG PO (07:41)
[2020-10-02] MEDS: OLANZapine 5 MG TAB PO (07:42)
[2020-10-02] MEDS: Sertraline 50 MG TAB 100 MG PO (07:42)
[2020-10-02] MEDS: Omeprazole 20 MG CAPCR PO (07:42)
[2020-10-02] MEDS: Magnesium Oxide 400 MG TAB PO (07:43)
[2020-10-02 09:19] VITALS: BP 106/61; PULSE 60; RESP 16; TEMP 36.5; O2SAT 99
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
--- NOTE | 2020-10-02 11:18 | PDOC.MHCN ---
Date of service: 10/02/20 Time of Service: 10:00 Mental Health Crisis Note Presenting Issue How did you arrive at the ED and why did you come: Arranged own transportation on 09/30/20 due to SI/HI Precipitating Factors Denies presently SI/HI. Client endorses experiencing SI/HI if he were to return to his home environment. Client endorses intent of self harm or harm to others if he were to return home. Disposition BEHAVIOR: calm, cooperative, and engaged with no evidence of acute distress or indicators of escalating demeanor EYE CONTACT: Normal MOOD: Euthymic AFFECT: Normal range APPETITE: No disturbances to appetite reported SLEEP(trouble falling/staying asleep: No disturbances to sleep reported Plan Client will be discharged today to the crisis bed in [facility]. Transportation has been arranged. Client will leave by 12pm today. Signature Clinician's Name/Title: Dena Benavides CRT Cloth Bleaching Range Operator Chief
--- NOTE | 2020-10-02 15:50 | CMDISCH_ITS ---
- If Service Date Differs Date of service: 10/02/20 Time of Service: 15:51 LACE Index Scoring Tool - Questions: Length of Stay (in days): 2 Acuity (Admit via E.D.?): Yes Comorbidities: Any Tumor E.D. Visits: 26 - Answers: Total Score: 11 Risk of Readmission: High Risk Care Management Discharge Reason for Hospitalization: Suicidal thoughts Discharge Plan: Asim will be discharged to [place], a care bed facility in [facility]. He will be transported by [employer] staff. Patient/Family Education Needs: Discharge plan, limitations, expectations, follow up plan - MH Services (Omit if N/A) Current MH Services: [employer]
== END 2020-10-02 12:20 | disposition other institution (70) ==
LOC: ER 20:04 → MS 22:24
PROVIDERS: Internal Medicine; Admitting Provider Family Medicine; Emergency Provider Student in an Organized Health Care Education/Training Program; PCP Nurse Practitioner; Visit Provider Family Medicine
DX: R45.851 Suicidal ideations (principal); F17.210 Nicotine dependence, cigarettes, uncomplicated; J44.9 Chronic obstructive pulmonary disease, unspecified; E03.9 Hypothyroidism, unspecified; F31.9 Bipolar disorder, unspecified; F41.9 Anxiety disorder, unspecified; K21.9 Gastro-esophageal reflux disease without esophagitis; E78.00 Pure hypercholesterolemia, unspecified; Z20.822 Contact with and (suspected) exposure to COVID-19
CPT/HCPCS: 36415; 80053; 80307; 87635; 99285; 80320; 80329; 85025; 85049; 99217; 99225; 99283; G0378

== ENCOUNTER 2021-01-05 15:53 | Emergency (ER) | payer MEDICAID, SELFPAY ==
[2021-01-05 15:57] VITALS: BP 135/79; PULSE 95; TEMP 37; O2SAT 98
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
[2021-01-05 17:31] VITALS: BP 149/83; PULSE 102; RESP 16; O2SAT 98
[2021-01-05 17:54] VITALS: BP 149/83; PULSE 102; RESP 16; TEMP 37; O2SAT 98
== END 2021-01-05 17:55 | disposition home or self-care (01) ==
PROVIDERS: Emergency Provider Physician Assistant; PCP Nurse Practitioner
DX: F31.9 Bipolar disorder, unspecified (principal)
CPT/HCPCS: 99283

== ENCOUNTER 2021-01-12 12:35 | Emergency (ER) | payer MEDICAID, SELFPAY ==
[2021-01-12 12:39] VITALS: BP 142/81; PULSE 106; RESP 16; TEMP 37.1; O2SAT 97
--- NOTE | 2021-01-12 12:53 | ED.GENADUL_ITS ---
Discharge Plan Disposition Patient Disposition: AGAINST MEDICAL ADVICE Condition: Stable Discharge Details Chief Complaint: PsychEval Clinical Impression: Depression Primary Care Provider: Fariba Forde ED Provider: Asim Fierro Diana Meds and New Rx's Prescriptions: No Action omeprazole 20 MG capsule,delayed release(DR/EC) 20 mg PO QAM RF: 0 magnesium oxide 400 mg (241.3 mg magnesium) tablet 400 mg PO QAM RF: 0 sennosides [senna] 8.6 mg Tablet 8.6 mg PO BID PRNRF: 0 sertraline 100 mg Tablet 100 mg PO DAILY RF: 0 hydroxyzine pamoate [Vistaril] 25 mg Capsule 50 mg PO BID RF: 0 ondansetron 4 mg tablet,disintegrating 4 mg PO Q8H PRN (Reason: nausea and vomiting) Qty: 7 RF: 0 trazodone 50 mg tablet 50 mg PO HS RF: 0 olanzapine 5 mg tablet 5 mg PO DAILY RF: 0 melatonin 3 mg tablet 6 mg PO HS RF: 0 pravastatin 20 mg tablet 20 mg PO HS RF: 0 levothyroxine 88 mcg Tablet 88 mcg PO DAILY RF: 0 prazosin 2 mg Capsule 2 mg PO QHS RF: 0 olanzapine 5 mg tablet RF: 0 gabapentin 300 mg capsule 300 mg PO .QHS RF: 0 Medical Decision Making 55 yo male with hx of bipolar and frequent ED visits for psychiatric complaints comes in with increased depression and advised he feels he is suicidal and plans to cut his throat and hasn't actually done so or done anything to harm himself. He is caox4 with clear speech. No focal neuro deficits and clear speech and is clinically sober on exam. Medically cleared to see mental health. Mental health evaluated the patient and he was not willing to change into paper scrubs nor give up his electronics per hospital policy and I did not feel I could physically or chemically restrain him to make him do so. HE has chronic depression and has numerous services as an outpatient. He discussed changing and giving up his electronics with Dr. Majano the ED biomedical engineering supervisor as well and still refused to change. He is leaving against medical advise and his mental health team is aware. His symptoms are chronic and unchanged from prior visits so I do not feel I have enough to EE him at this time. BANKING MANAGEMENT CONSULTING MANAGER is going to wait for his ride and do frequent check ins. He is leaving against my medical advise. He understands risks of leaving and has clinical capacity to make his own decisions. He understands he can return at any time if he changes his mind Differential Diagnosis Differential Diagnosis: depression, bipolar Medical Records Medical records reviewed: Yes I reviewed the patient's medical records. HPI General Mode of arrival: EMS . Date/Time Provider Initiated Documentation: 01/12/21 12:38 . Limitations to Documentation: no limitations . Information obtained by: patient . History of Present Illness 55 year old M presents to the emergency department with the chief complaint of depressed, described as moderate, and it has been constant. No relieving factors improve symptom(s), No exacerbating factors reported . Related Data Home Medications Medication Instructions Recorded Confirmed omeprazole 20 mg PO QAM 10/16/13 09/30/20 magnesium oxide 400 mg PO QAM 10/20/19 09/30/20 melatonin 6 mg PO HS 12/19/19 09/30/20 olanzapine 5 mg PO DAILY 12/19/19 09/30/20 pravastatin 20 mg PO HS 12/19/19 09/30/20 trazodone 50 mg PO HS 12/19/19 09/30/20 hydroxyzine pamoate [Vistaril] 50 mg PO BID 04/05/20 09/30/20 sennosides [senna] 8.6 mg PO BID PRN 04/05/20 09/30/20 sertraline 100 mg PO DAILY 04/05/20 09/30/20 levothyroxine 88 mcg PO DAILY 07/18/20 09/30/20 prazosin 2 mg PO QHS 07/18/20 09/28/20 ondansetron 4 mg PO Q8H PRN #7 tab 09/24/20 09/30/20 gabapentin 300 mg PO .QHS 09/28/20 09/30/20 olanzapine mg 09/28/20 09/28/20 Previous Rx's Medication Instructions Recorded ondansetron 4 mg PO Q8H PRN #7 tab 09/24/20 Allergies Allergy/AdvReac Type Severity Reaction Status Date / Time Sulfa (Sulfonamide Allergy Severe Swelling/Ed Unverified 01/12/21 12:45 Antibiotics) jostin General Stated Complaint: PsychEval ABA: 2 Review of Systems All systems reviewed & are unremarkable except as noted in HPI and below Constitutional Constitutional: Denies chills, Denies fever(s) and Denies weakness Cardiovascular Cardiovascular: Denies chest pain and Denies dyspnea Respiratory Respiratory: Denies cough and Denies dyspnea Gastrointestinal Gastrointestinal: Denies abdominal pain, Denies nausea and Denies vomiting Musculoskeletal Musculoskeletal: Denies joint swelling Neurologic Neurologic: Denies weakness [facility] Medical History Anxiety Bipolar disorder COPD (chronic obstructive pulmonary disease) GERD (gastroesophageal reflux disease) Hypercholesterolemia Hypothyroid Traumatic pneumothorax 2017, chest tube x2 Surgical History History of ankle surgery S/P thoracostomy tube placement Social History Smoking/Tobacco Use Status: Current every day Tobacco Type: cigarettes Smoking risk assessment performed?: Yes Alcohol Intake: never Drug use: Daily Substance use type: marijuana Current gender identity: male Do you feel safe at home: Yes Do you feel safe in your relationship?: Yes Additional Social history: Lives in a private apartment. Has [facility] case management Exam Const General: no acute distress Orientation: alert HENME Head: normal to inspection Ears: external ears normal General nose exam: external nose normal Mouth: moist mucous membranes Eyes General: appearance normal, both eyes and all related structures Neck Neck: normal visual inspection Resp Effort & Inspection: normal respiratory effort and able to speak in complete sentences Cardio Rate: regular rate Skin General skin exam: no rashes or lesions noted Neuro General: patient alert and patient oriented x3 Extrem General: normal to inspection Course Vital Signs Vital signs: Vital Signs Temperature 37.1 C 01/12/21 12:39 Pulse 106 H 01/12/21 12:39 Respiratory Rate 16 01/12/21 12:39 Blood Pressure 142/81 H 01/12/21 12:39 Pulse Oximetry 97 01/12/21 12:39 Temperature 37.1 C 01/12/21 12:39 Temperature Source Oral 01/12/21 12:39 Pulse 106 H 01/12/21 12:39 Respiratory Rate 16 01/12/21 12:39 Respiratory Effort Non-Labored 01/12/21 12:39 Blood Pressure 142/81 H 01/12/21 12:39 Blood Pressure Position Sitting 01/12/21 12:39 Pulse Oximetry 97 01/12/21 12:39 Oxygen Delivery Method Room Air 01/12/21 12:39 Oxygen Flow Rate 0 01/12/21 12:39 Pain Level 0 01/12/21 12:39
== END 2021-01-12 13:37 | disposition left against medical advice (07) ==
LOC: ER 13:41
PROVIDERS: Emergency Provider Emergency Medicine; PCP Nurse Practitioner
DX: F32.9 Major depressive disorder, single episode, unspecified (principal); R45.851 Suicidal ideations; F31.9 Bipolar disorder, unspecified; Z53.29 Procedure and treatment not carried out because of patient's decision for other reasons
CPT/HCPCS: 80053; 80307; 99283; 80320; 80329; 81003; 83735; 84443; 85025

== ENCOUNTER 2021-01-12 14:07 | Emergency (ER) | payer MEDICAID, SELFPAY ==
[2021-01-12 14:08] VITALS: BP 128/88; PULSE 98; RESP 16; TEMP 36.6; O2SAT 93
--- NOTE | 2021-01-12 14:13 | ED.GENADUL_ITS ---
Discharge Plan Disposition Patient Disposition: HOME Condition: Stable Discharge Details Clinical Impression: Depression Primary Care Provider: Fariba Forde ED Provider: Jagdish Aleman Home Meds and New Rx's Prescriptions: Continued omeprazole 20 MG capsule,delayed release(DR/EC) 20 mg PO QAM RF: 0 magnesium oxide 400 mg (241.3 mg magnesium) tablet 400 mg PO QAM RF: 0 sennosides [senna] 8.6 mg Tablet 8.6 mg PO BID PRNRF: 0 sertraline 100 mg Tablet 100 mg PO DAILY RF: 0 hydroxyzine pamoate [Vistaril] 25 mg Capsule 50 mg PO BID RF: 0 ondansetron 4 mg tablet,disintegrating 4 mg PO Q8H PRN (Reason: nausea and vomiting) Qty: 7 RF: 0 trazodone 50 mg tablet 50 mg PO HS RF: 0 olanzapine 5 mg tablet 5 mg PO DAILY RF: 0 melatonin 3 mg tablet 6 mg PO HS RF: 0 pravastatin 20 mg tablet 20 mg PO HS RF: 0 levothyroxine 88 mcg Tablet 88 mcg PO DAILY RF: 0 gabapentin 300 mg capsule 300 mg PO .QHS RF: 0 Discharge Instructions Instructions: Depression (ED) Additional Instructions: Please follow-up with your [facility] human services care team. Call them tomorrow morning. Continue your regular medications. Return to emergency department for any acute concern. Medical Decision Making <Asim Fierro MD - Last Filed: 01/12/21 14:52> 55 yo male with hx of bipolar and depression comes in with thoughts of self harm. Was seen earlier today by myself for SI and thoughts of wanting to cut his throat. He left ama when he refused to give up electronics or change in to paper scrubs. He now is willing to comply with hospital policy and still has thoughts of self harm. He is clinically sober and is caox4 without deficits on exam. Is medically cleared to see mental health he will be a voluntary psychatric bed search. Pt signed out to oncoming provider pending referrals to hospitals Differential Diagnosis Differential Diagnosis: depression,, bipolar Medical Records Medical records reviewed: Yes I reviewed the patient's medical records. <Jagdish Aleman MD - Last Filed: 01/12/21 16:08> Received signout from Dr. Fierro. Please see his note regarding initial presentation and plan of care. Patient stated approximately 4 PM that he felt them proved and that he he had no thoughts of harming himself or others, wished to be discharged home. As he was awaiting voluntary placement, he was discharged home on follow-up with his outpatient care team. HPI <Asim Fierro MD - Last Filed: 01/12/21 14:52> General Mode of arrival: ambulatory . Date/Time Provider Initiated Documentation: 01/12/21 14:11 . Limitations to Documentation: no limitations . Information obtained by: patient . History of Present Illness 55 year old M presents to the emergency department with the chief complaint of depressed, described as moderate, Patient started experiencing this week(s) (1) and it has been constant. No relieving factors improve symptom(s), No exacerbating factors reported . Patient notes no other symptoms.. Related Data Home Medications Medication Instructions Recorded Confirmed omeprazole 20 mg PO QAM 10/16/13 01/12/21 magnesium oxide 400 mg PO QAM 10/20/19 01/12/21 melatonin 6 mg PO HS 12/19/19 01/12/21 olanzapine 5 mg PO DAILY 12/19/19 01/12/21 pravastatin 20 mg PO HS 12/19/19 01/12/21 trazodone 50 mg PO HS 12/19/19 01/12/21 hydroxyzine pamoate [Vistaril] 50 mg PO BID 04/05/20 01/12/21 sennosides [senna] 8.6 mg PO BID PRN 04/05/20 01/12/21 sertraline 100 mg PO DAILY 04/05/20 01/12/21 levothyroxine 88 mcg PO DAILY 07/18/20 01/12/21 ondansetron 4 mg PO Q8H PRN #7 tab 09/24/20 01/12/21 gabapentin 300 mg PO .QHS 09/28/20 01/12/21 Previous Rx's Medication Instructions Recorded ondansetron 4 mg PO Q8H PRN #7 tab 09/24/20 Allergies Allergy/AdvReac Type Severity Reaction Status Date / Time Sulfa (Sulfonamide Allergy Severe Swelling/Ed Unverified 01/12/21 14:13 Antibiotics) jostin General Stated Complaint: PsychEval ABA: 2 Review of Systems <Asim Fierro MD - Last Filed: 01/12/21 14:52> All systems reviewed & are unremarkable except as noted in HPI and below Constitutional Constitutional: Denies chills, Denies fever(s) and Denies weakness Cardiovascular Cardiovascular: Denies chest pain and Denies dyspnea Respiratory Respiratory: Denies cough and Denies dyspnea Gastrointestinal Gastrointestinal: Denies abdominal pain, Denies nausea and Denies vomiting Musculoskeletal Musculoskeletal: Denies joint swelling Neurologic Neurologic: Denies weakness PFS <Asim Fierro MD - Last Filed: 01/12/21 14:52> Medical History Anxiety Bipolar disorder COPD (chronic obstructive pulmonary disease) GERD (gastroesophageal reflux disease) Hypercholesterolemia Hypothyroid Traumatic pneumothorax 2017, chest tube x2 Surgical History History of ankle surgery S/P thoracostomy tube placement Social History Smoking/Tobacco Use Status: Current every day Tobacco Type: cigarettes Smoking risk assessment performed?: Yes Alcohol Intake: never Drug use: Daily Substance use type: marijuana Current gender identity: male Do you feel safe at home: Yes Do you feel safe in your relationship?: Yes Additional Social history: Lives in a private apartment. Has [facility] case management Exam <Asim Fierro MD - Last Filed: 01/12/21 14:52> Const General: no acute distress Orientation: alert [facility] Head: normal to inspection Ears: external ears normal General nose exam: external nose normal Mouth: moist mucous membranes Eyes General: appearance normal, both eyes and all related structures Neck Neck: normal visual inspection Resp Effort & Inspection: normal respiratory effort and able to speak in complete sentences Cardio Rate: regular rate Skin General skin exam: no rashes or lesions noted Neuro General: patient alert and patient oriented x3 Extrem General: normal to inspection Course <Asim Fierro MD - Last Filed: 01/12/21 14:52> Vital Signs Vital signs: Vital Signs Temperature 36.6 C 01/12/21 14:08 Pulse 98 H 01/12/21 14:08 Respiratory Rate 16 01/12/21 14:08 Blood Pressure 128/88 01/12/21 14:08 Pulse Oximetry 93 01/12/21 14:08 Temperature 36.6 C 01/12/21 14:08 Temperature Source Oral 01/12/21 14:08 Pulse 98 H 01/12/21 14:08 Respiratory Rate 16 01/12/21 14:08 Respiratory Effort 01/12/21 14:08 Blood Pressure 128/88 01/12/21 14:08 Blood Pressure Position Sitting 01/12/21 14:08 Pulse Oximetry 93 01/12/21 14:08 Oxygen Delivery Method Room Air 01/12/21 14:08 Oxygen Flow Rate 0 01/12/21 14:08 Pain Level 0 01/12/21 14:08 Sign Out <Asim Fierro MD - Last Filed: 01/12/21 14:52> Sign Out Data: Sign Out Comment: here for depression and SI, voluntary, awaiting referrals to hospitals. initially left because he didn't want to give up belongings or change but then changed his mind and returned Last updated by Asim Fierro MD at 01/12/21 14:26
[2021-01-12 14:34] LABS: Abs Immature Grans 0.03 10^3/uL (0.0-0.06); Absolute Basophil Count 0.04 10^3/uL (0.0-0.2); Absolute Eosinophil Count 0.04 10^3/uL (0.0-0.7); Absolute Lymphocyte Count 1.44 10^3/uL (1.2-3.4); Absolute Monocyte Count 0.56 10^3/uL (0.1-0.8); Absolute Neutrophil Count 8.66 10^3/uL (1.2-6.7); Basophils % 0.4; Eosinophils % 0.4; HCT 43.7 % (40.0-50.0); HGB 14.1 g/dL (13.5-17.5); Immature Grans % 0.3; Lymphocytes % 13.4; MCH 26.2 pg (27.0-33.0); MCHC 32.3 % (32.0-36.0); MCV 81.1 fL (80-95); MPV 10.3 fL (8.0-11.0); Monocytes % 5.2; Neutrophils % 80.3; Nucleated RBC 0 %; Platelet Count 201 10^3/uL (130-400); RBC 5.39 10^6/uL (4.36-5.78); RDW 14.2 % (11.8-14.1); RDW-SD 41.1 fL; WBC 10.77 10^3/uL (4.4-10.8)
--- NOTE | 2021-01-12 14:39 | CMSP_ITS ---
- If Service Date Differs Date of service: 01/12/21 Time of Service: 14:39 Care Management Safety Plan Status: Voluntary - Reason for Wait Reason for Wait: Inpatient Admission Chief Complaint: Asim presents in the ED via EMS due to depression and suicidal ideation. Asim receives services through the CQ DEVELOPER program at [facility]. He is well known to [facility] and has had multiple psychiatric hospitalizations due to suicidal and homicidal ideation. Asim was assessed todat by Maegan of [facility] and found to meet criteria for a voluntary psych placement. VOLUNTARY FOR INPATIENT PSYCHIATRIC STABILIZATION. Patient is appropriate in all interactions since arriving at [facility]; Pt has demonstrated appropriate coping and communication skills, has articulated his or her needs and concerns and is fully engaged during staff interactions. Safety plan has been established with patient, and care team, to adhere to patient goals, identify restrictions based on behavioral status, address nutrition, and determine allowed personal belongings, tools for hygiene and personal care. Determine level of activity including ambulation, level of supervision, visitors, and determine privileges based on behaviors and level of engagement by pt. SAFETY PLAN: 1. Will remain on suicide precautions. In Paper Clothes 2. Will remain in room under direct supervision of one-on-one staff at all times provided by CPSO, LOW RAW SUGAR CUTTER, HUMAN RESOURCES DISTRICT MANAGER bar gauger and lubricator tender. 3. May have paper cups, plates, finger foods as well as a cardboard spoon with which to eat meals. 4. Follow [facility] Management of the Admitted Behavioral Health Patient policy. 5. Shower permitted with supervision and at RN discretion. 6. No personal belongings. 7. Visitors: No visitors at this time. 8. Activities: Soft cart items, coloring book, crayons, music tablet, television if available, and other activities at RN discretion. 9. Bathroom privileges with escort while in the ED; may use bathroom available in room without restriction on Med/Surg. 10. Phone: May use hospital phone for incoming and outgoing phone calls at RN discretion. 11. Due to VOLUNTARY status, if patient wishes to leave [facility], staff will contact [facility] Crisis Screener ([phone]) and On-Call Slunk Skinner ([phone]) as soon as possible. In the event of elopement, notify [facility] Police ([phone]). Patient is currently voluntarily at [facility] and seeking inpatient admission when a bed becomes available. [facility] Frontline Iron Worker Foreman will continue seeking placement. Please contact the Landscape Crew Leader Slunk Skinner ([phone]) and [facility] Iron Worker Foreman ([phone]) for any needed changes in the Safety Plan. Safety plan has been provided to interdepartmental care team.
--- NOTE | 2021-01-12 14:49 | NUR.NOTE ---
1448 patient belongings form completed and in bag with belongings.
[2021-01-12 14:52] LABS: ALT 32 U/L (16-63); AST 22 U/L (15-37); Albumin 3.7 g/dL (3.4-5.0); Alkaline Phosphatase 114 U/L (46-116); Anion Gap 7.7 mmol/L (3-11); BUN 12 mg/dL (7-18); Bilirubin, Total 0.2 mg/dL (0.2-1.0); CO2 27.3 mmol/L (21.0-32.0); CREATININE 0.9 mg/dL (0.70-1.30); Calcium 8.8 mg/dL (8.5-10.1); Chloride 104 mmol/L (98-107); Glucose 124 mg/dL (74-106); Potassium 3.8 mmol/L (3.5-5.1); Sodium 139 mmol/L (136-145); TSH (W/Ref FT4) 3.36 uIU/mL (0.36-3.74); Total Protein 7.6 g/dL (6.4-8.2)
[2021-01-12 14:52] LABS: Source Nasal/Nares
[2021-01-12 14:54] LABS: Salicylate 3.9 mg/dL (<2.8)
[2021-01-12 14:56] LABS: Acetaminophen < 2 ug/mL (10-30)
[2021-01-12 15:01] LABS: ETHANOL BLOOD < 3.0 mg/dL (<3)
[2021-01-12 15:07] LABS: Bilirubin Negative (Negative); Blood Negative (Negative); Clarity Clear (Clear); Glucose Negative (Negative); Ketones Negative (Negative); Leukocyte Esterase Negative (Negative); Nitrite Negative (Negative); Specific Gravity 1.015 (1.005-1.025); Urobilinogen 0.2 EU/dL (Up TO 0.2)
[2021-01-12 15:17] LABS: *AMPHETAMINES SCREEN URINE Negative (Negative); *BARBITURATES SCREEN URINE Negative (Negative); *BENZODIAZEPINES SCREEN URINE Negative (Negative); Cannabinoids THC Positive (Negative); Cocaine Screen,Urine Negative (Negative); METHADONE URINE SCREEN Negative (Negative); OPIATES URINE SCREEN Negative (Negative)
[2021-01-12 15:18] LABS: Tricyclic Antidepressants Negative (Negative)
[2021-01-12 15:48] LABS: COVID-19 PCR Negative (Negative)
== END 2021-01-12 16:58 | disposition home or self-care (01) ==
LOC: ER 16:58
PROVIDERS: Emergency Medicine; Emergency Provider Emergency Medicine; PCP Nurse Practitioner
DX: F32.9 Major depressive disorder, single episode, unspecified (principal); R45.851 Suicidal ideations
CPT/HCPCS: 80053; 80307; 87635; 99285; 80320; 80329; 81003; 84443; 85025; 99284

== ENCOUNTER 2021-01-20 02:16 | Emergency (ER) | payer MEDICAID, SELFPAY ==
[2021-01-20 02:21] VITALS: BP 128/85; PULSE 88; RESP 18; TEMP 36.5; O2SAT 98
--- NOTE | 2021-01-20 02:28 | ED.GENADUL_ITS ---
Discharge Plan Disposition Patient Disposition: HOME Condition: Stable Discharge Details Clinical Impression: Depression, Bipolar disorder Primary Care Provider: Fariba Forde ED Provider: Asim Fierro Home Meds and New Rx's Prescriptions: New bupropion HCl 150 mg tablet extended release 24 hr 150 mg PO QAM Qty: 30 RF: 0 sertraline 100 mg tablet 150 mg PO QAM Qty: 60 RF: 0 clonidine HCl 0.1 mg tablet 0.1 mg PO TID Qty: 90 RF: 0 Continued omeprazole 20 MG capsule,delayed release(DR/EC) 20 mg PO QAM RF: 0 magnesium oxide 400 mg (241.3 mg magnesium) tablet 400 mg PO QAM RF: 0 sennosides [senna] 8.6 mg Tablet 8.6 mg PO BID PRNRF: 0 hydroxyzine pamoate [Vistaril] 25 mg Capsule 50 mg PO BID RF: 0 ondansetron 4 mg tablet,disintegrating 4 mg PO Q8H PRN (Reason: nausea and vomiting) Qty: 7 RF: 0 trazodone 50 mg tablet 50 mg PO HS RF: 0 olanzapine 5 mg tablet 5 mg PO QAM RF: 0 melatonin 3 mg tablet 6 mg PO HS RF: 0 pravastatin 20 mg tablet 20 mg PO HS RF: 0 levothyroxine 88 mcg Tablet 88 mcg PO DAILY RF: 0 gabapentin 300 mg capsule 300 mg PO .QHS RF: 0 Discontinued sertraline 100 mg Tablet 100 mg PO DAILY RF: 0 Discharge Instructions Additional Instructions: Dr. Rojo recommended increasing your sertraline to 150mg daily, and starting clonidine 0.1mg three times daily, and bupropion XL 150mg daily. I sent a 30 day supply to the pharmacy and your outpatient prescriber will need to continue this if they agree if you have worsening symptoms, feel more ill or thoughts of self harm or harming others return to the emergency department Discharge Data Discharge Date/Time-TO BE ENTERED AT DEPARTURE: 01/24/21 11:17 Medical Decision Making <Jewel Lackey MD - Last Filed: 01/29/21 00:41> Patient will need EE for second certification by psychiatry. He has consented to blood work. CPSO ordered. Mental health aware and here. Labs are fine. Patient remains cooperative. Papers are completed. Will await second certification. Lab Data Lab results reviewed: Yes I reviewed the patient's lab results. <Rani Huffman DO - Last Filed: 01/20/21 18:50> 0800 -- please see Dr. Lackey's note for initial presentation, exam and plan. Case endorsed to continue to monitor while awaiting mental health evaluation and second certificate. 1400 -- patient behavior beginning to escalate. He states he is going to throat punch someone if we don't get him out of here. He is refusing to take his last 2 psychiatric meds or a dose of Ativan p.o. He is stating he wants the return to service inspector to arrest him. Discussed with care management who states LAW OFFICE ASSISTANT has placed referrals for placement. No beds available today. Second certificate evaluation likely to happen after 5 PM today 1500 -- patient behavior now much improved. He took the rest of his medication in addition to the Ativan. He is much more calm and speaking with staff. 1600 -- LAW OFFICE ASSISTANT evaluated patient at bedside. No inpatient beds available today. 1800 -- second certificate completed. Patient to remain into the ED while awaiting placement. Medical Records Medical records reviewed: Yes I reviewed the patient's medical records. <Asim Fierro MD - Last Filed: 01/24/21 11:12> pt had second cert done and remains in the ed calm and cooperative, will continue to monitor while placement is found Patient had a code dodd called after he started to hit the wall and stated he was going to leave. He sat on the bed and seemed to be calm but then eloped from the room and stood outside the emergency department entrance. Escorted in by PD, advised numerous times he is under involuntary status so can't leave and if he did find a way to leave again that PD would be contacted to bring him back here. pt has been calm since the code dodd, laying in the stretcher most of the day in no distress 01/22 patient currently sleeping in no distress, awaiting placement. Mental health here this morning evaluating, order for telepsych consult placed. pt became more agitated, stating he didn't want to stay and advised again that he is here involuntary so unfortunately he can't leave. I did order po ativan and haldol for his intermittent agitation and he does appear anxious but he is refusing meds at the present time and as of now do not feel he requires chemical/physical restraint. patient had telehealth visit with Dr. Rojo, psychiatrist, who recommended bupropion xl 150mg daily, sertraline 150mg daily from 100mg daily and starting clonidine 0.1mg and patient is willing to have these and his other meds. pt refused oral meds. He started to repeatedly bang his head on the wall and was not able to be verbally deescalated and was at risk of harming himself and others so he had to be physically and chemically restraind with 300mg ketamine. pt was given im ativan and zyprexa for continued agitation after waking from the ketamine pt now calm and cooperative, restraints being terminated 01/23 patient currently sleeping, easily awakens to voice, refusing po meds, awaiting placement 01/24 pt awake this morning, cooperative and took his meds per nursing. He says he is willing to talk with Dr. Rojo if he is available today, staff will try to arrange meeting if this is available Pt met with elias French and myself and he is no longer having si/hi, is calm and cooperative and having no delusions or hallucinations. He is currently stale for outpatient management and doesn't require inpatient hospitalization so is being walked off the EE. I will continue the meds Dr. Rojo recommended. He will follow up with his outpatient clinicians and return precautions given ECG Data Attestation: I personally reviewed and interpreted this ECG (s) as follows: Prior ECG tracings: available for review Interpretation: sinus rhythm, rate of 70, no acute st t wave ischemic chanes <Francisco Majano MD - Last Filed: 01/21/21 23:38> Patient has remained stable, calm and cooperative. Patient did have telepsych consult in the morning <RENAE Matt - Last Filed: 01/22/21 21:54> I was not involved in the care of this patient HPI <Jewel Lackey MD - Last Filed: 01/29/21 00:41> General Mode of arrival: ambulatory . Date/Time Provider Initiated Documentation: 01/20/21 02:28 . Limitations to Documentation: no limitations . Information obtained by: patient . HPI Narrative: Patient is patient brought in by P with a warrant for emergency evaluation. Patient had called the crisis line tracey stating he was going to kill himself due to legal issues. He refused to come in for evaluation so warrant was issued. Patient arrives here and is cooperative. He reiterates to me what he had told crisis. He would rather /kill himself than go through trial/intermediate. He feels the prosecution is being overly harsh and does not like the court imposed conditions he currently has. He denies attempting self harm as of now, but states his plan was to do it today while on the phone with girlfriend. He has no physical complaints tonight. Related Data Home Medications Medication Instructions Recorded Confirmed omeprazole 20 mg PO QAM 10/16/13 01/24/21 magnesium oxide 400 mg PO QAM 10/20/19 01/24/21 melatonin 6 mg PO HS 12/19/19 01/24/21 olanzapine 5 mg PO QAM 12/19/19 01/25/21 pravastatin 20 mg PO HS 12/19/19 01/24/21 trazodone 50 mg PO HS 12/19/19 01/24/21 hydroxyzine pamoate [Vistaril] 50 mg PO BID 04/05/20 01/24/21 sennosides [senna] 8.6 mg PO BID PRN 04/05/20 01/24/21 levothyroxine 88 mcg PO DAILY 07/18/20 01/24/21 ondansetron 4 mg PO Q8H PRN #7 tab 09/24/20 01/25/21 gabapentin 300 mg PO .QHS 09/28/20 01/24/21 bupropion HCl 150 mg PO QAM #30 tab 01/24/21 01/25/21 clonidine HCl 0.1 mg PO TID #90 tab 01/24/21 01/25/21 sertraline 150 mg PO QAM #60 tab 01/24/21 01/24/21 Previous Rx's Medication Instructions Recorded ondansetron 4 mg PO Q8H PRN #7 tab 09/24/20 bupropion HCl 150 mg PO QAM #30 tab 01/24/21 clonidine HCl 0.1 mg PO TID #90 tab 01/24/21 sertraline 150 mg PO QAM #60 tab 01/24/21 Allergies Allergy/AdvReac Type Severity Reaction Status Date / Time Sulfa (Sulfonamide Allergy Severe Swelling/Ed Unverified 01/24/21 23:05 Antibiotics) jostin General Stated Complaint: PsychEval ABA: 2 Review of Systems <Jewel Lackey MD - Last Filed: 01/29/21 00:41> Narrative: 03/03 Review of Systems completed and is negative except as stated above in HPI (Systems reviewed: Const, ENT, Resp, CV, GI, , MSK, Skin, Neuro, Psych) [facility] <Jewel Lackey MD - Last Filed: 01/29/21 00:41> Medical History Anxiety Bipolar disorder COPD (chronic obstructive pulmonary disease) GERD (gastroesophageal reflux disease) Hypercholesterolemia Hypothyroid Traumatic pneumothorax 2017, chest tube x2 Surgical History History of ankle surgery S/P thoracostomy tube placement Social History Smoking/Tobacco Use Status: Current every day Tobacco Type: cigarettes Smoking risk assessment performed?: Yes Alcohol Intake: never Drug use: Daily Substance use type: marijuana Current gender identity: male Do you feel safe at home: Yes Do you feel safe in your relationship?: Yes Additional Social history: Lives in a private apartment. Has [facility] case management Exam <Jewel Lackey MD - Last Filed: 01/29/21 00:41> Narrative Exam Narrative: Const: WDWN male in NAD. HEENT: NC/AT. Normal facial exam. Eyes: Normal conjunctiva and sclera. Neck: Supple. Trachea midline. Lungs: Normal respiratory effort. Lungs are clear. Cor: RRR without murmur/gallop. Good radial pulses. GI: Soft. NT/ND. Neuro: A+O x 3. Normal speech, mentation, gait. Cranial nerves II - XII grossly intact. No gross motor or sensory deficit. Ext: No C/C/E. Skin: Warm and dry without rash. Psych: Relatively calm but clearly angry. Normal thought and speech. Verbalizes SI. Course <Jewel Lackey MD - Last Filed: 01/29/21 00:41> Vital Signs Vital signs: Vital Signs Temperature 97.7 F 01/20/21 02:21 Pulse 88 01/20/21 02:21 Respiratory Rate 18 01/20/21 02:21 Blood Pressure 128/85 01/20/21 02:21 Pulse Oximetry 98 01/20/21 02:21 Temperature 97.7 F 01/20/21 02:21 Pulse 88 01/20/21 02:21 Respiratory Rate 18 01/20/21 02:21 Respiratory Effort Non-Labored 01/20/21 02:23 Blood Pressure 128/85 01/20/21 02:21 Blood Pressure Position Sitting 01/20/21 02:21 Pulse Oximetry 98 01/20/21 02:21 Oxygen Delivery Method Room Air 01/20/21 02:21 Oxygen Flow Rate 0 01/20/21 02:21 Pain Level 0 01/20/21 02:21 <Asim Fierro MD - Last Filed: 01/24/21 11:12> Critical Care Time Critical Care Time: Yes Total Critical Care Time: 45 (minutes) Attestation: time spent administering ketamine and frequent reassesments in a patient with potential to harm self and others requiring chemical sedation <Asim Fierro MD - Last Filed: 01/24/21 11:12> Time of Face to Face Face to Face: Time of Face to Face: 12:47 Patient's Immediate Situation Requiring Restraints/Seclusion: Harm to Patient Patient Response to Restraints: Remains Agitated and Restless Patient's Medical & Behavioral Condition: patient was banging his head hard against the wall numerous times and became agitated, was at risk of harming self and others so had to be chemically and physicall restrained Need for Continuation of Restraints Has Been Assessed: Restraints Continued 2nd Face to Face: Time of Face to Face: 14:26 Patient's Immediate Situation Requiring Restraints/Seclusion: Harm to Patient Patient Response to Restraints: Remains Agitated and Restless Patient's Medical & Behavioral Condition: patient constantly moving around bed and pulling on restraints, IM ativan and zyprexa ordered and restraints continued 3rd Face to Face: Time of Face to Face: 15:59 Patient's Immediate Situation Requiring Restraints/Seclusion: Harm to Patient Patient Response to Restraints: Tolerating without Problems Patient's Medical & Behavioral Condition: sleeping but arouses easily and when awakened still agitated and threat to selfand others Need for Continuation of Restraints Has Been Assessed: Restraints Continued 4th Face to Face: Time of Face to Face: 17:37 Patient's Immediate Situation Requiring Restraints/Seclusion: Harm to Patient Patient Response to Restraints: Tolerating without Problems Patient's Medical & Behavioral Condition: pt now calm and cooperative and will remove restraints Need for Continuation of Restraints Has Been Assessed: Restraints Terminated Sign Out <Jewel Lackey MD - Last Filed: 01/29/21 00:41> Sign Out Data: Sign Out Comment: pending second certification Last updated by Jewel Lackey MD at 01/20/21 07:50 Sign Out Comment: Second certificate completed. Awaiting placement. Last updated by Rani Huffman DO at 01/20/21 20:03 Sign Out Comment: No issues overnight. He has been sleeping the entire shift. Awaiting placement to psychiatric facility. Last updated by Jewel Lackey MD at 01/21/21 07:14 Sign Out Comment: here involuntary, second cert completed awaiting placement. HAd a code dodd called after hitting wall and then eloped, stood outside the ED and walked back in by PD Last updated by Asim Fierro MD at 01/21/21 10:39 Sign Out Comment: Second certification was performed and patient will remain on EE with plan to transfer to psychiatric treatment facility when bed available. Patient has been calm and cooperative this shift. Telepsych consult to be performed in the morning. Last updated by Francisco Majano MD at 01/21/21 23:39 Sign Out Comment: No events overnight. Awaiting placement. Last updated by Rani Huffman DO at 01/22/21 07:48 Sign Out Comment: here involuntary, awaiting placement, met with psychiatrist Dr. Rojo who made several medication suggestions which was ordered Last updated by Asim Fierro MD at 01/22/21 11:07 Sign Out Comment: here involuntary, awaiting placement, met with psychiatrist Dr. Rojo who made several medication suggestions which was ordered but he did not take them. Had to be chemically and physically restrained during shift for agitation and risks of self harm and harm to others Last updated by Asim Fierro MD at 01/22/21 17:45 Sign Out Comment: Stable throughout the night. No altercations. Slept well. Awaiting placement. Here involuntarily. Last updated by Mickey Ragsdale DO at 01/23/21 06:15 Sign Out Comment: patient waiting placement at psych facility, here involuntary. Last updated by Asim Fierro MD at 01/23/21 08:18 Sign Out Comment: patient waiting placement at psych facility, here involuntary. Last updated by Asim Fierro MD at 01/23/21 18:17 Sign Out Comment: Patient stable throughout the night, awaiting involuntary placement. Last updated by Mickey Ragsdale DO at 01/24/21 07:48
[2021-01-20 02:58] LABS: Abs Immature Grans 0.03 10^3/uL (0.0-0.06); Absolute Basophil Count 0.06 10^3/uL (0.0-0.2); Absolute Eosinophil Count 0.27 10^3/uL (0.0-0.7); Absolute Lymphocyte Count 2.72 10^3/uL (1.2-3.4); Absolute Monocyte Count 0.55 10^3/uL (0.1-0.8); Absolute Neutrophil Count 6.35 10^3/uL (1.2-6.7); Basophils % 0.6; Eosinophils % 2.7; HCT 42.6 % (40.0-50.0); HGB 13.9 g/dL (13.5-17.5); Immature Grans % 0.3; Lymphocytes % 27.3; MCH 26.7 pg (27.0-33.0); MCHC 32.6 % (32.0-36.0); MCV 81.9 fL (80-95); MPV 9.7 fL (8.0-11.0); Monocytes % 5.5; Neutrophils % 63.6; Nucleated RBC 0 %; Platelet Count 184 10^3/uL (130-400); RDW 14.5 % (11.8-14.1); RDW-SD 42.7 fL; WBC 9.98 10^3/uL (4.4-10.8)
[2021-01-20 03:26] LABS: ALT 38 U/L (16-63); AST 22 U/L (15-37); Albumin 3.6 g/dL (3.4-5.0); Alkaline Phosphatase 110 U/L (46-116); Anion Gap 11.4 mmol/L (3-11); BUN 12 mg/dL (7-18); Bilirubin, Total 0.4 mg/dL (0.2-1.0); CO2 26.6 mmol/L (21.0-32.0); CREATININE 1.1 mg/dL (0.70-1.30); Calcium 8.5 mg/dL (8.5-10.1); Chloride 105 mmol/L (98-107); Glucose 130 mg/dL (74-106); Potassium 3.3 mmol/L (3.5-5.1); Sodium 143 mmol/L (136-145); TSH (W/Ref FT4) 5.52 uIU/mL (0.36-3.74); Total Protein 7.2 g/dL (6.4-8.2)
[2021-01-20 03:28] LABS: ETHANOL BLOOD < 3.0 mg/dL (<3)
[2021-01-20 03:33] LABS: Source Nasal/Nares
[2021-01-20 03:41] LABS: Acetaminophen < 2 ug/mL (10-30); Salicylate 4.2 mg/dL (<2.8)
[2021-01-20 03:48] LABS: FREE T4 1.15 ng/dL (0.76-1.46)
[2021-01-20 04:26] LABS: COVID-19 PCR Negative (Negative)
--- NOTE | 2021-01-20 09:38 | CMSP_ITS ---
- If Service Date Differs Date of service: 01/20/21 Time of Service: 09:38 Care Management Safety Plan Status: Involuntary - Reason for Wait Reason for Wait: Other (Second Certification by Psychiatrist) INVOLUNTARY FOR INPATIENT PSYCHIATRIC STABILIZATION. CHIEF COMPLAINT: Police bring Asim to the ED on a mental health Warrant for Emergency Examination after he threatens suicide. Asim has an extensive psychiatric history with multiple psychiatric hospitalizations for suicidal ideation. Per his report, he is facing potential mcfp time for assaulting an individual named Elbert. Asim is quite angry at the Cracker Dough Mixer's office, his public relations account executive, [facility], and police, and feels that they are railroading him. He is appropriate when CM meets with him but states on several occasions that he just wants to go home and wants for people to leave him alone despite knowing that he is at the hospital involuntarily and that he cannot go home at this time. He is aware that a Second Certification by Psychiatrist is going to happen sometime after 5:00 pm this evening and is looking forward to speaking with a State Psychiatrist. Referrals have been faxed for review by [facility] DELTA SYSTEM FREIGHT CAR CLEANER to [facility], [facility] and [facility]. A huddle is done at approximately 9:[address] Huffman, ED provider, Uma, nursing supervisor cigarette making department, SEAMUS Robles, Tamie, [facility] Crisis Screener, and OLIMPIA Munson, in attendance. Safety plan has been established to meet the needs of the patient, and consideration of the care team, to adhere to patient goals, identify restrictions based on behavioral status, address nutrition, and determine allowed personal belongings, tools for hygiene and personal care. Determine level of activity including ambulation, level of supervision, visitors, and dete rmine privileges based on behaviors and level of engagement by pt. SAFETY PLAN: 1. Will remain on SI/HI precautions. In Paper Clothes 2. Will remain in room under direct supervision of one-on-one staff at all times provided by CPSO, DONTAE, TOOL AND DIE ASSEMBLER home service demonstrator. 3. May have paper cups, plates, finger foods as well as a cardboard spoon with which to eat meals. 4. Follow [facility] Management of the Admitted Behavioral Health Patient policy. 5. Personal Care: May shower with supervision and at RN discretion. 6. No personal belongings. 7. Visitors: None at this time. 8. Activities: Soft cart items such as coloring books and crayons, music tablet, television if available, and other activities at RN discretion. 9. Bathroom privileges with escort while in the ED; may use bathroom available in room with no restriction on Med/Surg. 10. Phone: May use hospital phone for incoming and outgoing calls at RN discretion. Asim will be allowed to use his cell phone once on to call his friend Kaylee to ask that she care for his dog and to advise her that future calls will be made from the hospital phone. 11. Due to INVOLUNTARY status, patient is being held at [facility] by the Department of Mental Health ([facility]) until 2nd certification by [facility] Psychiatrist can be performed (within 24 hours). Staff will provide de-escalation support (CPI) as needed. If patient wishes to leave [facility], staff will contact [facility] Crisis Screener ([phone]) and On-Call Line Therapist ([phone]) as soon as possible. In the event of elopement, notify [facility] Police ([phone]). Patient is currently involuntarily at [facility]. [facility] Frontline Didactic Program In Dietetics Director will continue seeking placement. Please contact the Home Care Specialist Line Therapist ([phone]) for any needed changes to Safety Plan. Safety plan has been provided to interdepartmental care team. Patient will be transported by community assistant at time of discharge.
[2021-01-20 09:50] LABS: *AMPHETAMINES SCREEN URINE Negative (Negative); *BARBITURATES SCREEN URINE Negative (Negative); *BENZODIAZEPINES SCREEN URINE Negative (Negative); Cannabinoids THC Positive (Negative); Cocaine Screen,Urine Negative (Negative); METHADONE URINE SCREEN Negative (Negative); OPIATES URINE SCREEN Negative (Negative); Tricyclic Antidepressants Negative (Negative)
[2021-01-20] MEDS: Omeprazole 20 MG CAPCR PO (13:17)
[2021-01-20] MEDS: hydrOXYzine PAMOATE 25 MG CAP 50 MG PO (13:17)
[2021-01-20] MEDS: Magnesium Oxide 400 MG TAB PO (13:18)
[2021-01-20] MEDS: OLANZapine 5 MG TAB PO (13:18)
[2021-01-20] MEDS: Levothyroxine 88 MCG TAB PO (13:38)
[2021-01-20] MEDS: SERTRALINE 100 MG TAB (13:46)
[2021-01-20] MEDS: LORazepam 1 MG TAB PO (14:42)
--- NOTE | 2021-01-20 15:33 | PDOC.MHCN ---
<Tamie Mccord - Last Filed: 01/21/21 16:30> Date of service: 01/20/21 Time of Service: 15:33 Mental Health Crisis Note <Tamie Mccord - Last Filed: 01/21/21 16:30> Presenting Issue How did you arrive at the ED and why did you come: Pt arrived on 01.19.2021 via a Warrant executed by CLAU Velez. Precipitating Factors Pt denied SI and HI stating I'll be a good boy. He is not showing any signs of delusions. Disposition BEHAVIOR: Pt is cooperative with this clinician and is reported to not have any behavioral issues since his arrival. EYE CONTACT: Eye contact is fair. MOOD: Pt's mood appeared normal. AFFECT: Affect is flat. APPETITE: Pt reported he is hungry. SLEEP(trouble falling/staying asleep: Pt reported he slept okay. Plan Pt was informed that at this time it is not this clinician's professional opinion that he should return home until he is evaluated by a psychiatrist due to his level of escalation. He will have one later this evening. Pt requested to use his phone to call his friend Kaylee to care for his dog. Pt will remain at [facility] pending his second certification and then decisions will be made. If the certification goes through the Pt will remain at [facility] pending admission to a psychiatric facility. He will be evaluated twice daily for placement until that time or until his symptoms subside to where he can safely safety plan home. Signature Clinician's Name/Title: Tamie Mccord MS, [facility] Emergency Services Clinician, [facility] <RENAE Matt - Last Filed: 01/22/21 21:53> Precipitating Factors i was not involved in the care of this patient
--- NOTE | 2021-01-20 18:35 | NUR.NOTE ---
Nursing Note: Promotions Intern assisted with zoom call for second certification with mental health. Promotions Intern was informed by mental health that patient was remaining on involuntary status at this time.
--- NOTE | 2021-01-20 18:50 | NUR.NOTE ---
Report from SEAMUS Robles for continued care. Patient resting with eyes closed; appears sleeping. Lying on right side. No apparent distress. Able to reposition independently. Sitter in direct line of sight. Plan for vital signs when patient awakens. Nursing Note:
--- NOTE | 2021-01-20 20:48 | NUR.NOTE ---
Patient resting with eyes closed; appears sleeping. Prone position. Sitter in direct line of sight.Nursing Note:
--- NOTE | 2021-01-20 21:47 | NUR.NOTE ---
Patient resting with eyes closed; appears sleeping. Lying on left side. No apparent distress noted. Repositions independently. Sitter in direct line of sight. Nursing Note:
--- NOTE | 2021-01-20 23:01 | NUR.NOTE ---
Patient continues to sleep. No apparent distress. Able to reposition independently. Sitter in direct line of sight. Plan to allow patient to sleep; hold vital signs and HS medications. Nursing Note:
--- NOTE | 2021-01-20 23:54 | NUR.NOTE ---
Report to SEAMUS Mccoy for continued careNursing Note:
[2021-01-21] MEDS: Levothyroxine 88 MCG TAB PO (07:27)
[2021-01-21 07:31] VITALS: BP 100/64; PULSE 68; RESP 14; TEMP 36.4; O2SAT 95
[2021-01-21] MEDS: Omeprazole 20 MG CAPCR PO (07:34)
[2021-01-21] MEDS: SERTRALINE 100 MG TAB PO (09:20)
[2021-01-21] MEDS: OLANZapine 5 MG TAB PO (09:20)
[2021-01-21] MEDS: Magnesium Oxide 400 MG TAB PO (09:20)
--- NOTE | 2021-01-21 11:15 | RT.EKG_ITS ---
APPROVED REPORT Exam: Resting ECG Reason for Exam: Medically clearing patient Patient Location: E HR:69 bpm ECG Measurements Heart Rate 69 AXIS WV 139 P 53 QRSd 93 QRS -4 QT 399 T 28 QTc 427 Conclusion Sinus rhythm...normal P axis, V-rate 60- 99
--- NOTE | 2021-01-21 11:16 | PDOC.CMSAFED ---
- If Service Date Differs Date of service: 01/21/21 Time of Service: 11:16 Care Management Safety Plan Status: Involuntary - Reason for Wait Reason for Wait: Inpatient Admission INVOLUNTARY FOR INPATIENT PSYCHIATRIC STABILIZATION. A huddle is done at approximately 11:[address] Fierro, ED provider, Uma, nursing wet room supervisor, Cinthya, charge nurse, Tamie, and OLIMPIA Munson, in attendance. Safety plan has been established to meet the needs of the patient, and consideration of the care team, to adhere to patient goals, identify restrictions based on behavioral status, address nutrition, and determine allowed personal belongings, tools for hygiene and personal care. Determine level of activity including ambulation, level of supervision, visitors, and determine privileges based on behaviors and level of engagement by pt. SAFETY PLAN: 1. Will remain on SI/HI precautions. In Paper Clothes 2. Will remain in room under direct supervision of one-on-one staff at all times provided by CPSO, BRASS BUFFER, ORNAMENTAL IRONWORKING SUPERVISOR service crew supervisor. 3. May have paper cups, plates, finger foods as well as a cardboard spoon with which to eat meals. 4. Follow [facility] Management of the Admitted Behavioral Health Patient policy. 5. Personal Care: Comfort bath only for the next 24 hours. 6. No personal belongings. 7. Visitors: None at this time. 8. Activities: Soft cart items such as coloring books and crayons, music tablet, television if available, and other activities at RN discretion. 9. Bathroom privileges with escort while in the ED; may use bathroom available in room with no restriction on Med/Surg. 10. Phone: May use hospital phone for incoming and outgoing calls at RN discretion. 11. Due to INVOLUNTARY status, patient is being held at [facility] by the Department of Mental Health ([facility]) until 2nd certification by [facility] Psychiatrist can be performed (within 24 hours). Staff will provide de-escalation support (CPI) as needed. If patient wishes to leave [facility], staff will contact [facility] Crisis Screener ([phone]) and On-Call Stem Dryer Maintainer ([phone]) as soon as possible. In the event of elopement, notify [facility] Police ([phone]). Patient is currently involuntarily at [facility]. [facility] Frontline Regional Merchandising Manager will continue seeking placement. Please contact the Sql Report Developer Stem Dryer Maintainer ([phone]) for any needed changes to Safety Plan. Safety plan has been provided to interdepartmental care team. Patient will be transported by leak hunter at time of discharge.
--- NOTE | 2021-01-21 12:35 | PDOC.MHCN_ITS ---
Date of service: 01/21/21 Time of Service: 10:30 Mental Health Crisis Note Presenting Issue How did you arrive at the ED and why did you come: The client was brought to [facility] emergency department 01/19/21 via VSP on a warrant after reporting SI with a plan to end his life during a discussion with his girlfriend. Per [facility] emergency care attendant Jeimy Stubbs, today the client became escalated, threw a coffee, and attempted to leave the ED after stating I'm done. I'm out of here, requiring a code dodd and VSP involvement in order to return client to his designated room. Precipitating Factors The client presents in paper scrubs sitting on top of his bed. Appearance is unkempt. He is observed to sway back and forth and obsessively pick at a wound on his left upper extremity. He presents as agitated and initially refuses to speak to this clinician or anyone in human services but eventually agrees to talk. He is cooperative with baseline questions. He reports being fully alert to time, person, place, and situation with no reported deficits in memory. Affect is agitated. Poor insight and judgment. Speech is coherent, normal rate and angry tone. Eye contact is intermittent. He refuses to eat. No report or evide nce of hallucinations. 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 They want to see me go to [facility] no matter what. If they came at me like a man I'd settle it. Hickory of fags in this state. They're going after me but not Elbert. Client discloses that he has been feeling extremely isolated in his apartment since being placed on house arrest and goes on to state If someone had just listened none of this would have happened. I'm going to kraig and take that Worship from them. Client states repeatedly that I just want to home. I'll be out of here by noon. He denies current SI/SIB, intent or plan. C-SSRS (SHORTFORM): IN THE PAST MONTH 1. Have you wished you were or wished you could go to sleep and not wake up? Y 2. Have you actually had any thoughts about killing yourself? N Client declined to answer additional C-SSRS questions. Disposition BEHAVIOR: Agitated, otherwise cooperative EYE CONTACT: Intermittent MOOD: Agitated AFFECT: Agtated APPETITE: Refuses to eat. SLEEP(trouble falling/staying asleep: N/A Plan Due to the client's recent behavioral escalation and lack of ability to maintain safety at home, the client will remain on involuntary status pending transfer to a psychiatric in-patient facility. If the client's symptoms are sufficiently reduced with evidence of safe manageability, client may discharge home per discretionary determination of screener and attending medical provider. Signature Clinician's Name/Title: Jimy Soto [facility] clinician / HP
--- NOTE | 2021-01-21 16:41 | CMPROGNOTE_ITS ---
- If Service Date Differs Date of service: 01/21/21 Time of Service: 16:41 Care Management Progress Note S/O: Asim met with Dr. Carver yesterday for a Second Certification by Psychiatrist and the EE was upheld and Asim was deemed a person in need of treatment. This morning, Asim becomes agitated, throws his cup of coffee on the floor, kicks the wall in his room, and punches the window. Asim walks out of the hospital and VSP is called and troopers subsequently return him to the ED. After speaking with VSP and Jaime of [facility], Asim is able to regain his composure and spends the remainder of the day in bed. He is refusing nourishment and does not want to speak with anyone else. CM will continue to follow. A: Asim remains at [facility] awaiting an involuntary psych placement. P: Referrals were faxed to [facility], [facility] and [facility] for review. [facility] requests additional information and is currently considering Asim for admission. He will remain at [facility] on involuntary status while [facility] continues to seek placement for him. CM will continue to follow. - MH Services (Omit if N/A) Current MH Services: [facility] - Status Status: Involuntary - Reason for Wait Reason for Wait: Inpatient Admission
[2021-01-21] MEDS: Melatonin 3 MG TAB 6 MG PO (22:21)
[2021-01-21] MEDS: Gabapentin 300 MG CAP PO (22:21)
[2021-01-21] MEDS: traZODone 50 MG TAB PO (22:21)
[2021-01-22] VITALS (9 sets, daily range): BP systolic 122–141; BP diastolic 85–95; PULSE 86–114; RESP 16; TEMP 36.4; O2SAT 90–93
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
--- NOTE | 2021-01-22 12:38 | NUR.NOTE ---
Nursing Note: Patient currently pacing, slamming head against the wall, stating he can do this all day. Has made a dent in the sheetrock of the wall. Made a stance like he was going to bolt from the dept. Colt arita called. Restraint bed ready.
[2021-01-22] MEDS: Ketamine 500 MG/10 ML VIAL 300 MG IM (12:45)
--- NOTE | 2021-01-22 13:25 | NUR.NOTE ---
is on telemetry since getting ketamine IM.Nursing Note:
[2021-01-22] MEDS: LORazepam 2 MG/ML VIAL IM ×2 (14:07→15:00)
[2021-01-22] MEDS: OLANZapine 10 MG VIAL IM (15:00)
--- NOTE | 2021-01-22 15:29 | CMPROGNOTE_ITS ---
- If Service Date Differs Date of service: 01/22/21 Time of Service: 15:29 Care Management Progress Note S/O: Asim met with Dr. Redman this morning via telepsych for a psychiatric evaluation. He was cooperative and forthcoming with answering questions. Dr. Redman made recommendations regarding medication adjustments. When CM came to meet with Asim his behavior had escalated and a ida arita was called. He ended up in four point restraints and received 300 mg of Ketamine at that time. He later got out of his restraints, became combative again and received more medication. By the end of the day shift Asim was quiet and resting comfortably. A: Asim remains at [facility] awaiting an involuntary psych placement. P: Referrals were [facility] to [facility], [facility] and [facility]. [facility] additional information and is currently considering Asim for admission. He will remain at [facility] on involuntary status while [facility] continues to seek placement for him. CM will continue to follow.
--- NOTE | 2021-01-22 16:20 | CMSP_ITS ---
- If Service Date Differs Date of service: 01/22/21 Time of Service: 16:20 Care Management Safety Plan Status: Involuntary - Guarianship if Applicable Guardianship: [facility] - Reason for Wait Reason for Wait: Inpatient Admission Safety plan has been established to meet the needs of the patient, and consideration of the care team, to adhere to patient goals, identify restrictions based on behavioral status, address nutrition, and determine allowed personal belongings, tools for hygiene and personal care. Determine level of activity including ambulation, level of supervision, visitors, and determine privileges based on behaviors and level of engagement by pt. SAFETY PLAN: 1. Will remain on SI/HI precautions. In Paper Clothes 2. Will remain in room under direct supervision of one-on-one staff at all times provided by CPSO, DONTAE, RAG CUTTING MACHINE OPERATOR junior marketing associate. 3. May have paper cups, plates, finger foods as well as a cardboard spoon with which to eat meals. 4. Follow [facility] Management of the Admitted Behavioral Health Patient policy. 5. Personal Care: Comfort bath only for the next 24 hours. 6. No personal belongings. 7. Visitors: None at this time. 8. Activities: Soft cart items such as coloring books and crayons, music tablet, television if available, and other activities at RN discretion. 9. Bathroom privileges with escort while in the ED; may use bathroom available in room with no restriction on Med/Surg. 10. Phone: May use hospital phone for incoming and outgoing calls at RN discretion. 11. Due to INVOLUNTARY status, patient is being held at [facility] by the Department of Mental Health ([facility]) until 2nd certification by [facility] Psychiatrist can be performed (within 24 hours). Staff will provide de-escalation support (CPI) as needed. If patient wishes to leave [facility], staff will contact [facility] Crisis Screener ([phone]) and On-Call Medical Office Assistant Instructor ([phone]) as soon as possible. In the event of elopement, notify [place] State Police ([phone]). Patient is currently involuntarily at [facility]. [facility] Frontline Rn Disease Management will continue seeking placement. Please contact the Executive Pastry Chef Medical Office Assistant Instructor ([phone]) for any needed changes to Safety Plan. Safety plan has been provided to interdepartmental care team. Patient will be transported by [facility] at time of discharge.
--- NOTE | 2021-01-22 19:03 | NUR.NOTE ---
Report from SEAMUS Edwards for continued care. Patient resting with eyes closed; appears sleeping. No distress noted. Lying on left side. Bed in lowest, locked position, side rails up x2. Sitter in direct line of sight.Nursing Note:
--- NOTE | 2021-01-22 19:10 | NUR.NOTE ---
Warm blankets provided.Nursing Note:
--- NOTE | 2021-01-22 20:10 | NUR.NOTE ---
Patient resting with eyes closed; appears sleeping. No apparent distress noted. Lights off to promote rest. Sitter in direct line of sight.Nursing Note:
--- NOTE | 2021-01-22 22:22 | NUR.NOTE ---
Resting quietly with eyes closed; appears sleeping. Able to reposition independently in bed. Sitter in direct line of sight.Nursing Note:
--- NOTE | 2021-01-23 | NUR.NOTE ---
Patient remains resting with eyes closed; lying on left side. Repositions independently. Moves all extremities. Sitter in direct line of sight.Nursing Note:
--- NOTE | 2021-01-23 01:00 | NUR.NOTE ---
Resting with eyes closed; appears sleeping. No apparent distress noted. Lying on left side. Chest rise symmetical. Respirations even and unlabored. Sitter in direct line of sight.Nursing Note:
--- NOTE | 2021-01-23 03:00 | NUR.NOTE ---
Resting with eyes closed; appears sleeping. No apparent distress. Sitter in direct line of sight.Nursing Note:
--- NOTE | 2021-01-23 03:53 | NUR.NOTE ---
[facility]Nursing Note:
--- NOTE | 2021-01-23 05:06 | NUR.NOTE ---
Patient resting with eyes closed; appears sleeping. Prone position. Sitter in direct line of sight.Nursing Note:
--- NOTE | 2021-01-23 06:13 | NUR.NOTE ---
Awakens. Ambulates to restroom with steady gait.Nursing Note:
[2021-01-23 06:22] VITALS: BP 128/82; PULSE 88; RESP 18; TEMP 36.6; O2SAT 98
--- NOTE | 2021-01-23 06:23 | NUR.NOTE ---
Patient refuses medication. States Maybe later.Nursing Note:
--- NOTE | 2021-01-23 07:00 | NUR.NOTE ---
Report to SEAMUS Mendes for continued careNursing Note:
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
[2021-01-23] MEDS: OLANZapine 5 MG TAB PO (17:05)
[2021-01-23] MEDS: SERTRALINE 100 MG TAB 150 MG PO (17:05)
[2021-01-23] MEDS: Magnesium Oxide 400 MG TAB PO (17:05)
[2021-01-23] MEDS: Omeprazole 20 MG CAPCR PO (17:06)
[2021-01-23] MEDS: Levothyroxine 88 MCG TAB PO (17:06)
[2021-01-23] MEDS: buPROPion-XL 150 MG TABCR PO (17:06)
[2021-01-23] MEDS: cloNIDine 0.1 MG TAB PO (17:07)
--- NOTE | 2021-01-23 17:50 | CMPROGNOTE_ITS ---
- If Service Date Differs Date of service: 01/23/21 Time of Service: 17:50 Care Management Progress Note S/O: Asim slept much of the day today. He had been medicated yesterday and last evening for extreme agitation and was still a bit sleepy today. When he did wake up he was pleasant and cooperative, willing to take his medication and eat some food. He wawaits involuntary placement. No beds were available today. A: Asim remains at [facility] awaiting an involuntary psych placement. P: Referrals were fax[facility] to [facility]. [facility] additional information and is currently considering Asim for admission. He will remain at [facility] on involuntary status while [facility] continues to seek placement for him. CM will continue to follow. - MH Services (Omit if N/A) Current MH Services: MATERIAL HANDLING CREW SUPERVISOR - Status Status: Involuntary - Guardianship if Applicable Guardianship: [facility]
--- NOTE | 2021-01-23 17:50 | PDOC.ERCMPRO ---
- If Service Date Differs Date of service: 01/23/21 Time of Service: 17:50 Care Management Progress Note S/O: Asim slept much of the day today. He had been medicated yesterday and last evening for extreme agitation and was still a bit sleepy today. When he did wake up he was pleasant and cooperative, willing to take his medication and eat some food. He wawaits involuntary placement. No beds were available today. A: Asim remains at [facility] awaiting an involuntary psych placement. P: Referrals were faxed to [facility], [facility] and [facility] for review. [facility] requests additional information and is currently considering Asim for admission. He will remain at [facility] on involuntary status while [facility] continues to seek placement for him. CM will continue to follow. - MH Services (Omit if N/A) Current MH Services: PRIMER CHARGER - Status Status: Involuntary - Guardianship if Applicable Guardianship: [facility]
--- NOTE | 2021-01-23 17:53 | CMSP_ITS ---
- If Service Date Differs Date of service: 01/23/21 Time of Service: 17:53 Care Management Safety Plan Status: Involuntary - Guarianship if Applicable Guardianship: [facility] - Reason for Wait Reason for Wait: Inpatient Admission Safety plan has been established to meet the needs of the patient, and consideration of the care team, to adhere to patient goals, identify restrictions based on behavioral status, address nutrition, and determine allowed personal belongings, tools for hygiene and personal care. Determine level of activity including ambulation, level of supervision, visitors, and determine privileges based on behaviors and level of engagement by pt. SAFETY PLAN: 1. Will remain on SI/HI precautions. In Paper Clothes 2. Will remain in room under direct supervision of one-on-one staff at all times provided by [employer], DONTAE, ENVELOPE FOLDING MACHINE OPERATOR manufacturing shift supervisor. 3. May have paper cups, plates, finger foods as well as a cardboard spoon with which to eat meals. 4. Follow [facility] Management of the Admitted Behavioral Health Patient policy. 5. Personal Care: Comfort bath only for the next 24 hours. 6. No personal belongings. 7. Visitors: None at this time. 8. Activities: Soft cart items such as coloring books and crayons, music tablet, television if available, and other activities at RN discretion. 9. Bathroom privileges with escort while in the ED; may use bathroom available in room with no restriction on Med/Surg. 10. Phone: May use hospital phone for incoming and outgoing calls at RN discretion. 11. Due to INVOLUNTARY status, patient is being held at [facility] by the Department of Mental Health ([facility]) until 2nd certification by [facility] Psychiatrist can be performed (within 24 hours). Staff will provide de-escalation support (CPI) as needed. If patient wishes to leave [facility], staff will contact [facility] Crisis Screener ([phone]) and On-Call Corrections Identification Technician ([phone]) as soon as possible. In the event of elopement, notify [place] [employer] ([phone]). Patient is currently involuntarily at [facility]. [facility] Frontline Shearing Machine Tender will continue seeking placement. Please contact the [employer] Hand Finisher Corrections Identification Technician ([phone]) for any needed changes to Safety Plan. Safety plan has been provided to interdepartmental care team. Patient will be transported by [facility] at time of discharge.
[2021-01-23 17:57] VITALS: BP 125/84; PULSE 83; RESP 18; TEMP 36.5; O2SAT 94
--- NOTE | 2021-01-23 18:41 | NUR.NOTE ---
Nursing Note: Pt c/o left hip pain pain that started when he got up to go to the bathroom. Dr. Fierro notified and 600mg ibuprofen ordered and given.
[2021-01-23] MEDS: Ibuprofen 600 MG TAB PO (18:46)
[2021-01-23] MEDS: Melatonin 3 MG TAB 6 MG PO ×2 (22:29→22:30)
[2021-01-23 22:30] VITALS: BP 120/81; PULSE 83; RESP 16; TEMP 36.5; O2SAT 95
[2021-01-23] MEDS: Gabapentin 300 MG CAP PO ×2 (22:30)
[2021-01-23] MEDS: traZODone 50 MG TAB PO ×2 (22:30)
--- NOTE | 2021-01-24 04:14 | NUR.NOTE ---
Nursing Note: Spoke with Mental Health, gave update on patient.
[2021-01-24] MEDS: Levothyroxine 88 MCG TAB PO (06:02)
[2021-01-24] MEDS: Omeprazole 20 MG CAPCR PO (08:11)
[2021-01-24] MEDS: SERTRALINE 100 MG TAB 150 MG PO (08:44)
[2021-01-24] MEDS: OLANZapine 5 MG TAB PO (08:44)
[2021-01-24] MEDS: Magnesium Oxide 400 MG TAB PO (08:44)
[2021-01-24] MEDS: buPROPion-XL 150 MG TABCR PO (08:44)
[2021-01-24] MEDS: cloNIDine 0.1 MG TAB PO (08:45)
--- NOTE | 2021-01-24 10:49 | PSYCHFUP_ITS ---
Date of Service Date of service: 01/24/21 Time of Service: 10:49 Assessment and Plan Assessment and plan (1) Suicidal ideation: Status: Acute (2) Major depression: Status: Chronic Assessment and plan: No longer meets criteria for involuntary admission. Core symptoms are improved sufficiently to allow discharge from ED with close fo llow up by outpatient team Continue medications as administered in ED Thank you for the opportunity to participate in the care of your patient. Psychiatry Subjective Events Since Initial Consult/Last Note:: Yester, patient declined follow up examniation and was uncooperative with care Overnight Events: Calm, more cooperative overnight. No episodes of violence or self harm Narrative:: Seen in follow up through telemedicine this morning. More pleasant and cooperative. He states he feels better and had reached his low point and was now in a safer, more positive place. States he wants to go home and take care of his dog. He denies thoughts of suicide and state he is willing to work with [facility] team to ensure safe return home and close follow up with outpatient team. [facility] crisis clinican is contacted by phone to discuss the case who indicates that her assessment is that his safety has improved, is reasonable willng and capacble of engaging in safety planning and no longer meets criteria for involuntary admission. I agree with this assessment. Phone contact with Dr. Stephens occurs to convey these impression and he is agreeable to discharge home with close follow up by [facility]. The patient indicates he has no access to firearms. Exam Psych Appearance: grossly normal Mental Status: mental status grossly normal Speech and Movement: speech and movement normal Mood: congruent mood and dysthymic mood (markedly less so than at admission) Affect: normal affect Attitude: cooperative Thought Process: normal Thought Content: normal Insight: fair Judgment: fair Other: No acute safety issues identified on exam; future oriented; willing to cooperate with outpatient providers and follow safety plan Objective Medications: Active Inpatient Medications Report Generic Name Dose Route Start Last Admin Trade Name Freq PRN Reason Stop Dose Admin Bupropion HCl 150 mg 01/22/21 08:30 01/24/21 08:44 Bupropion-Xl 150 Mg Tabcr PO 150 mg DAILY LUCY Administration Clonidine 0.1 mg 01/22/21 10:00 01/24/21 08:45 Clonidine 0.1 Mg Tab PO 0.1 mg TID LUCY Administration Gabapentin 300 mg 01/20/21 22:00 01/23/21 22:30 Gabapentin 300 Mg Cap PO 300 mg HS LUCY Administration Levothyroxine Sodium 88 mcg 01/20/21 12:55 01/24/21 06:02 Levothyroxine 88 Mcg Tab PO 88 mcg DAILY@0600 LUCY Administration Magnesium Oxide 400 mg 01/20/21 12:55 01/24/21 08:44 Magnesium Oxide 400 Mg Tab PO 400 mg DAILY LUCY Administration Melatonin 6 mg 01/20/21 22:00 01/23/21 22:30 Melatonin 3 Mg Tab PO 6 mg HS LUCY Administration Nicotine 30 cartridge 01/20/21 18:12 Nicotine 10 Mg/Cartridge 30 Cart/Pkg IH Q2H PRN PRN Olanzapine 5 mg 01/20/21 12:55 01/24/21 08:44 Olanzapine 5 Mg Tab PO 5 mg DAILY LUCY Administration Omeprazole 20 mg 01/20/21 12:55 01/24/21 08:11 Omeprazole 20 Mg Capcr PO 20 mg DAILY@0730 LUCY Administration Sertraline HCl 150 mg 01/22/21 11:00 01/24/21 08:44 Sertraline 100 Mg Tab PO 150 mg DAILY LUCY Administration Trazodone HCl 50 mg 01/20/21 22:00 01/23/21 22:30 Trazodone 50 Mg Tab PO 50 mg HS LUCY Administration Discontinued Medications Generic Name Dose Route Start Last Admin Trade Name Seevn PRN Reason Stop Dose Admin Hydroxyzine Pamoate 50 mg 01/20/21 12:50 01/20/21 13:17 Hydroxyzine Pamoate 25 Mg Cap PO 01/20/21 12:51 50 mg NOW ONE Administration Ibuprofen 600 mg 01/23/21 18:41 01/23/21 18:46 Ibuprofen 600 Mg Tab PO 01/23/21 18:42 600 mg NOW ONE Administration Ketamine HCl 300 mg 01/22/21 12:37 01/22/21 12:45 Ketamine 500 Mg/10 Ml Vial IM 01/22/21 12:38 300 mg NOW ONE Administration Lorazepam 1 mg 01/20/21 13:44 01/20/21 14:42 Lorazepam 1 Mg Tab PO 01/20/21 13:45 1 mg NOW ONE Administration Lorazepam 2 mg 01/22/21 08:42 01/22/21 18:51 Lorazepam 1 Mg Tab PO 01/22/21 08:43 Not Given NOW ONE Lorazepam 2 mg 01/22/21 14:00 01/22/21 14:07 Lorazepam 2 Mg/Ml Vial IM 01/22/21 14:01 2 mg RESTRAINT ONE Administration Lorazepam 2 mg 01/22/21 14:54 01/22/21 15:00 Lorazepam 2 Mg/Ml Vial IM 01/22/21 14:55 2 mg NOW ONE Administration Olanzapine 10 mg 01/22/21 14:54 01/22/21 15:00 Olanzapine 10 Mg Vial IM 01/22/21 14:55 10 mg RESTRAINT ONE Administration Sertraline HCl 100 mg 01/20/21 12:55 01/20/21 14:44 Sertraline 50 Mg Tab PO Not Given DAILY LUCY Sertraline HCl 100 mg 01/21/21 08:30 01/21/21 09:20 Sertraline 100 Mg Tab PO 100 mg DAILY LUCY Administration Vitals: Vital Signs - 24 hr 01/23/21 17:57 01/23/21 22:30 Temperature 36.5 C 36.5 C Pulse 83 83 Respiratory Rate 18 16 Blood Pressure 125/84 120/81 Pulse Oximetry 94 95 Review of Systems All systems reviewed & are unremarkable except as noted in HPI and below
--- NOTE | 2021-01-24 11:00 | PDOC.MHCN ---
Date of service: 01/24/21 Time of Service: 11:00 Mental Health Crisis Note Presenting Issue How did you arrive at the ED and why did you come: Client arrived on 01/19 via [facility] on warrant after enorsing SI with intent and plan on the phone with instructor private. Client is seen today for daily follow-up assessment while awaiting inpatient hospitalization. Precipitating Factors Client currently denies SI/HI with no plan or intent. Disposition BEHAVIOR: Client is sitting up on hospital bed dressed in proper paper hospital attire when this film writer arrives in person. Client had just finished Telehealth appointment with psychiatrist Dr. Javier Redman. Client is cooperative and fully engages in assessment with this film writer. EYE CONTACT: Client makes good eye contact with this film writer. MOOD: Client's mood appears to be future and goal oriented. AFFECT: Clients affect is normal. APPETITE: Client states that he has been eating good, stating that he ate breakfast this morning and ate dinner last night. SLEEP(trouble falling/staying asleep: Client states that he has been sleeping pretty good since being at the ED. Plan It is in this clinicians professional opinion that this client is no longer a danger to himself or others, therefore this film writer is walking client off warrant. Safety plan in place which includes: check-in phone calls at 2:00 p.m. and 7:00 p.m. today. Client will also follow-up with [facility] team tomorrow. If client feels like he is in crisis he will call [facility] crisis line or 911 if he feels like he cannot keep himself safe. made some med adjustments and Dr. Fierro will fax prescription to pharmacy, [facility] team will be notified of prescription changes. Signature Clinician's Name/Title: Kelsi Hargrove [facility] Emergency Clinician
[2021-01-24 11:01] VITALS: BP 110/81; PULSE 87; RESP 18; TEMP 36; O2SAT 95
[2021-01-24 11:16] VITALS: BP 110/81; PULSE 87; RESP 18; TEMP 36; O2SAT 98
== END 2021-01-24 11:17 | disposition home or self-care (01) ==
PROVIDERS: Emergency Medicine; Emergency Provider Emergency Medicine; PCP Nurse Practitioner
DX: F31.9 Bipolar disorder, unspecified (principal); R45.1 Restlessness and agitation; R45.851 Suicidal ideations; Z75.1 Person awaiting admission to adequate facility elsewhere; Z20.822 Contact with and (suspected) exposure to COVID-19; Z03.818 Encounter for observation for suspected exposure to other biological agents ruled out; Z78.1 Physical restraint status
CPT/HCPCS: 36415; 80053; 80307; 87635; 93005; 96372; 99285; 99291; 80320; 80329; 84439; 84443; 85025; 93010; J2060

== ENCOUNTER 2021-01-24 22:39 | Emergency (ER) | payer MEDICAID, SELFPAY ==
--- NOTE | 2021-01-24 22:32 | W.ED.GENAD ---
Discharge Plan Disposition Patient Disposition: HOME Condition: Good Discharge Details Clinical Impression: Depression Primary Care Provider: Fariba Forde ED Provider: Jagdish Aleman Home Meds and New Rx's Prescriptions: Continued omeprazole 20 MG capsule,delayed release(DR/EC) 20 mg PO QAM RF: 0 magnesium oxide 400 mg (241.3 mg magnesium) tablet 400 mg PO QAM RF: 0 sennosides [senna] 8.6 mg Tablet 8.6 mg PO BID PRNRF: 0 hydroxyzine pamoate [Vistaril] 25 mg Capsule 50 mg PO BID RF: 0 ondansetron 4 mg tablet,disintegrating 4 mg PO Q8H PRN (Reason: nausea and vomiting) Qty: 7 RF: 0 bupropion HCl 150 mg tablet extended release 24 hr 150 mg PO QAM Qty: 30 RF: 0 sertraline 100 mg tablet 150 mg PO QAM Qty: 60 RF: 0 clonidine HCl 0.1 mg tablet 0.1 mg PO TID Qty: 90 RF: 0 trazodone 50 mg tablet 50 mg PO HS RF: 0 olanzapine 5 mg tablet 5 mg PO QAM RF: 0 melatonin 3 mg tablet 6 mg PO HS RF: 0 pravastatin 20 mg tablet 20 mg PO HS RF: 0 levothyroxine 88 mcg Tablet 88 mcg PO DAILY RF: 0 gabapentin 300 mg capsule 300 mg PO .QHS RF: 0 Discharge Instructions Instructions: Depression (ED) Additional Instructions: Please continue to use your outpatient resources for help and support when feeling depressed. If you notice any worsening of your symptoms, or any new symptoms such as vomiting, diarrhea, fever, chills, shortness of breath, chest pain, numbness, weakness, or fainting , please return immediately to the emergency department for reevaluation. Please follow up with your primary care provider as soon as possible for reassessment and reevaluation. As always, it was a pleasure participating in your medical care today. Referrals: Fariba Forde [Primary Care Provider] - Medical Decision Making <Mickey Ragsdale DO - Last Filed: 01/25/21 07:41> 55-year-old male with a past medical history of high cholesterol, depression, COPD, bipolar, who was recently just admitted for over 100 hours to the [facility] emergency department awaiting placement, and was then subsequently walked off his EE just this morning, returns again now via EMS for concern for depression. Patient specifically states he does not want to end his life, he did not want to hurt anyone else, he denies any auditory visual hallucinations. He simply states that I feel sad, and needs some help. He is living at home alone and feels that this is not the best place for him. Patient denies any IV or illicit drug use, he did take his morning medications. He denies any alcohol use. No other complaints at this time Physical exam is unremarkable. Patient was just medically cleared a few hours ago earlier today. He denies any alcohol use. He does not appear intoxicated. He has no suicidal ideations currently. I do feel that he would benefit from help, but does not need inpatient admission at this time. We will recheck to mental health to further assessment. 4 AM Mental health has come and assessed the patient and agree that the patient does not need involuntary admission at this time. At this time we will look for a care bed for the patient, alternatively they state that if they cannot find one they do feel he will be stable for discharge in the morning as an alternative. Patient remained stable and is medically cleared. <Jagdish Aleman MD - Last Filed: 01/25/21 11:27> Patient signout from Dr. Ragsdale. Please see his notes for initial presentation, exam and plan of care. Patient evaluated by both [facility] services and and has care management. He is pending further long-term placement. He requests palliative care consult which I have placed on his behalf. Approximately 11 AM, the patient stated he felt better having taken his medications, was no longer feeling depressed or suicidal and requested discharge to home. Case was discussed with on-call [facility] services will follow up with the patient both for counseling services and for medication delivery. He stable and will discharge home at this time. HPI <Mickey Ragsdale DO - Last Filed: 01/25/21 07:41> General Date/Time Provider Initiated Documentation: 01/24/21 22:54. HPI Narrative: 55-year-old male with a past medical history of high cholesterol, depression, COPD, bipolar, who was recently just admitted for over 100 hours to the [facility] emergency department awaiting placement, and was then subsequently walked off his EE just this morning, returns again now via EMS for concern for depression. Patient specifically states he does not want to end his life, he did not want to hurt anyone else, he denies any auditory visual hallucinations. He simply states that I feel sad, and needs some help. He is living at home alone and feels that this is not the best place for him. Patient denies any IV or illicit drug use, he did take his morning medications. He denies any alcohol use. No other complaints at this time Related Data Home Medications Medication Instructions Recorded Confirmed omeprazole 20 mg PO QAM 10/16/13 01/24/21 magnesium oxide 400 mg PO QAM 10/20/19 01/24/21 melatonin 6 mg PO HS 12/19/19 01/24/21 olanzapine 5 mg PO QAM 12/19/19 01/25/21 pravastatin 20 mg PO HS 12/19/19 01/24/21 trazodone 50 mg PO HS 12/19/19 01/24/21 hydroxyzine pamoate [Vistaril] 50 mg PO BID 04/05/20 01/24/21 sennosides [senna] 8.6 mg PO BID PRN 04/05/20 01/24/21 levothyroxine 88 mcg PO DAILY 07/18/20 01/24/21 ondansetron 4 mg PO Q8H PRN #7 tab 09/24/20 01/25/21 gabapentin 300 mg PO .QHS 09/28/20 01/24/21 bupropion HCl 150 mg PO QAM #30 tab 01/24/21 01/25/21 clonidine HCl 0.1 mg PO TID #90 tab 01/24/21 01/25/21 sertraline 150 mg PO QAM #60 tab 01/24/21 01/24/21 Previous Rx's Medication Instructions Recorded ondansetron 4 mg PO Q8H PRN #7 tab 09/24/20 bupropion HCl 150 mg PO QAM #30 tab 01/24/21 clonidine HCl 0.1 mg PO TID #90 tab 01/24/21 sertraline 150 mg PO QAM #60 tab 01/24/21 Allergies Allergy/AdvReac Type Severity Reaction Status Date / Time Sulfa (Sulfonamide Allergy Severe Swelling/Ed Unverified 01/24/21 23:05 Antibiotics) jostin General ABA: 2 Review of Systems <Mickey R Melyssa, DO - Last Filed: 01/25/21 07:41> All systems reviewed & are unremarkable except as noted in HPI and below PFSH <Mickey Ragsdale DO - Last Filed: 01/25/21 07:41> Medical History Anxiety Bipolar disorder COPD (chronic obstructive pulmonary disease) GERD (gastroesophageal reflux disease) Hypercholesterolemia Hypothyroid Traumatic pneumothorax 2017, chest tube x2 Surgical History History of ankle surgery S/P thoracostomy tube placement Social History Smoking/Tobacco Use Status: Current every day Tobacco Type: cigarettes Smoking risk assessment performed?: Yes Alcohol Intake: never Drug use: Daily Substance use type: marijuana Current gender identity: male Do you feel safe at home: Yes Do you feel safe in your relationship?: Yes Additional Social history: Lives in a private apartment. Has [facility] case management Exam <Mickey Ragsdale DO - Last Filed: 01/25/21 07:41> Narrative Exam Narrative: 1.Const: Well-nourished, Well-developed, appearing stated age 2.Eyes: PERRL, no conjunctival injection, and symmetrical lids. 3.ENT: Atraumatic external nose and ears. Moist MM. Neck: Symmetric, trachea midline, No thyromegaly. 4.CVS: +S1/S2, No murmurs or gallops. Peripheral pulses 2+ and equal in all extremities. Brisk capillary refill in all extremities. 5.RESP: Unlabored respiratory effort. Clear to auscultation bilaterally. No wheezes rales or rhonchi 6.GI: Soft, Nontender/Nondistended, No hepatosplenomegaly. No guarding or rebound. 7.MSK: Normocephalic/Atraumatic, Extremities w/o deformity or ttp No cyanosis or clubbing, Normal movement of all extremities 8.Skin: Warm, Dry. No rashes or lesions. 9.Neuro: lining presser II-XII grossly intact. Sensation grossly intact, no focal neurologic deficits. 10.Psych: (AAO) x3. Sad and somewhat flat affect Sign Out <Mickey Ragsdale DO - Last Filed: 01/25/21 07:41> Sign Out Data: Sign Out Comment: Depression, however not suicidal or homicidal. No need for sitter. Mental health will be back at 8 AM to bring home or bring to care bed Last updated by Mickey Ragsdale DO at 01/25/21 07:39
[2021-01-24 22:45] VITALS: BP 104/69; PULSE 102; RESP 18; TEMP 36.9; O2SAT 92
--- NOTE | 2021-01-25 00:19 | PDOC.MHCN ---
<Lilliam MarquezmichelleMainAndrewsandip - Last Filed: 01/25/21 01:06> Date of service: 01/24/21 Time of Service: 23:30 Mental Health Crisis Note <Lilliam Swan - Ottoniel Filed: 01/25/21 01:06> Presenting Issue How did you arrive at the ED and why did you come: [facility] paged this contract writer to perform a mental health screening on this patient - as the patient was requesting a mental health evaluation upon arrival to the Emergency Department. Precipitating Factors The patient denied SI/HI/SIB during the mental health screening. The patient shared that he was walked off an EE earlier today but felt he wasn't right after returning home and needed help. The patient stated that they felt alone at their apartment and needed to get rid of their dog, Geronimo. Patient denied having auditory or visual hallucinations. Disposition BEHAVIOR: Depressed/hopelessness/cooperative with this contract writer EYE CONTACT: appropriate MOOD: Depressed/Expansive in sharing aggressive thoughts AFFECT: Depressed/hopeless APPETITE: Patient reported to have a poor appetite and shared that their last meal was scrambled eggs this morning while at the hospital. SLEEP(trouble falling/staying asleep: Patient Reported poor sleep and trouble staying asleep Plan The patient reported that he felt he needed help to address his living situation, chronic illness, and recent legal issues. The patient agreed to a referral to a Crisis be in the state - this contract writer will send out universal CARE bed referrals. This contract writer will Reach out to Chronic Care and set up an appointment to address supports for his chronic issues. This contract writer will connect the client with community connections to complete an application for long-term Medicaid to apply for an Adult Family [facility]. This contract writer will notify the [facility]PER[employer] RO[employer] program of the client's willingness to engage in the outlined plan. The patient will be seen at 8 a.m. to follow up with the client. If a Crisis bed referral is still pending, the client will safety plan, with SUPER[employer] RO[employer] supports in place, and return home until a crisis bed is available. 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 Borderline Personality Disorder; Alcohol Use Disorder-moderate in remission Cannabis Use Disorder-severe tobacco use disorder Signature Clinician's Name/Title: Lilliam oux-Bachand -[facility], ES Screener (after hours)
[2021-01-25 00:46] LABS: Source Nasal/Nares
[2021-01-25 00:47] LABS: Abs Immature Grans 0.06 10^3/uL (0.0-0.06); Absolute Eosinophil Count 0.15 10^3/uL (0.0-0.7); Absolute Lymphocyte Count 3.04 10^3/uL (1.2-3.4); Absolute Monocyte Count 0.86 10^3/uL (0.1-0.8); Basophils % 0.4; Eosinophils % 0.9; HCT 45.4 % (40.0-50.0); Immature Grans % 0.4; Lymphocytes % 18.1; MCV 81.7 fL (80-95); MPV 10.3 fL (8.0-11.0); Monocytes % 5.1; Neutrophils % 75.1; Nucleated RBC 0 %; Platelet Count 166 10^3/uL (130-400); RBC 5.56 10^6/uL (4.36-5.78); RDW 14.2 % (11.8-14.1); RDW-SD 41.2 fL; WBC 16.77 10^3/uL (4.4-10.8)
[2021-01-25 00:49] LABS: Absolute Basophil Count 0.07 10^3/uL (0.0-0.2); Absolute Neutrophil Count 12.59 10^3/uL (1.2-6.7)
[2021-01-25 01:04] LABS: Salicylate 4.7 mg/dL (<2.8)
[2021-01-25 01:06] LABS: ALT 36 U/L (16-63); AST 34 U/L (15-37); Albumin 3.8 g/dL (3.4-5.0); Alkaline Phosphatase 102 U/L (46-116); BUN 20 mg/dL (7-18); Bilirubin, Total 0.8 mg/dL (0.2-1.0); Calcium 8.6 mg/dL (8.5-10.1); Chloride 103 mmol/L (98-107); Glucose 99 mg/dL (74-106); Potassium 3.5 mmol/L (3.5-5.1); Sodium 138 mmol/L (136-145); Total Protein 7.6 g/dL (6.4-8.2)
[2021-01-25 01:10] LABS: Acetaminophen < 2 ug/mL (10-30); ETHANOL BLOOD < 3.0 mg/dL (<3)
[2021-01-25 01:10] LABS: *AMPHETAMINES SCREEN URINE Negative (Negative); *BARBITURATES SCREEN URINE Negative (Negative); *BENZODIAZEPINES SCREEN URINE Negative (Negative); Cannabinoids THC Positive (Negative); Cocaine Screen,Urine Negative (Negative); METHADONE URINE SCREEN Negative (Negative); OPIATES URINE SCREEN Negative (Negative)
[2021-01-25 01:12] LABS: Tricyclic Antidepressants Negative (Negative)
[2021-01-25 01:14] LABS: TSH (W/Ref FT4) 9.12 uIU/mL (0.36-3.74)
[2021-01-25 01:33] LABS: FREE T4 1.22 ng/dL (0.76-1.46)
[2021-01-25 01:40] LABS: COVID-19 PCR Negative (Negative)
[2021-01-25 07:49] VITALS: BP 122/86; PULSE 75; RESP 18; TEMP 36.5; O2SAT 96
[2021-01-25] MEDS: Levothyroxine 88 MCG TAB PO (07:55)
[2021-01-25] MEDS: hydrOXYzine PAMOATE 25 MG CAP 50 MG PO (07:55)
[2021-01-25] MEDS: Magnesium Oxide 400 MG TAB PO (07:56)
[2021-01-25] MEDS: Omeprazole 20 MG CAPCR PO (07:56)
[2021-01-25] MEDS: SERTRALINE 100 MG TAB (07:56)
[2021-01-25] MEDS: buPROPion-XL 150 MG TABCR PO (07:56)
[2021-01-25] MEDS: cloNIDine 0.1 MG TAB PO (07:56)
[2021-01-25] MEDS: OLANZapine 5 MG TAB PO (07:57)
[2021-01-25] MEDS: Sertraline 50 MG TAB 150 MG PO (07:57)
== END 2021-01-25 11:36 | disposition home or self-care (01) ==
PROVIDERS: Student in an Organized Health Care Education/Training Program; Emergency Provider Emergency Medicine; PCP Nurse Practitioner
DX: F32.9 Major depressive disorder, single episode, unspecified (principal)
CPT/HCPCS: 36415; 80053; 80307; 87635; 99284; 80320; 80329; 84439; 84443; 85025; 99283

== ENCOUNTER 2021-03-30 17:15 | Inpatient (IN) | payer MEDICAID, SELFPAY ==
[2021-03-30 17:56] VITALS: BP 119/83; PULSE 94; TEMP 36.7; O2SAT 95
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
[2021-03-30 20:38] LABS: Abs Immature Grans 0.02 10^3/uL (0.0-0.06); Absolute Basophil Count 0.07 10^3/uL (0.0-0.2); Absolute Eosinophil Count 0.18 10^3/uL (0.0-0.7); Absolute Lymphocyte Count 2.54 10^3/uL (1.2-3.4); Absolute Monocyte Count 0.52 10^3/uL (0.1-0.8); Absolute Neutrophil Count 7.77 10^3/uL (1.2-6.7); Basophils % 0.6; Eosinophils % 1.6; HCT 43.4 % (40.0-50.0); Immature Grans % 0.2; Lymphocytes % 22.9; MCH 26.5 pg (27.0-33.0); MCHC 32.3 % (32.0-36.0); MPV 10.3 fL (8.0-11.0); Monocytes % 4.7; Nucleated RBC 0 %; Platelet Count 220 10^3/uL (130-400); RBC 5.29 10^6/uL (4.36-5.78); RDW 14.2 % (11.8-14.1); RDW-SD 42.2 fL
[2021-03-30 20:40] LABS: Source Nasal/Nares
[2021-03-30 21:20] LABS: *AMPHETAMINES SCREEN URINE Negative (Negative); *BARBITURATES SCREEN URINE Negative (Negative); *BENZODIAZEPINES SCREEN URINE Negative (Negative); Cannabinoids THC Positive (Negative); Cocaine Screen,Urine Negative (Negative); METHADONE URINE SCREEN Negative (Negative); OPIATES URINE SCREEN Negative (Negative); Tricyclic Antidepressants Negative (Negative)
[2021-03-30 21:21] LABS: Acetaminophen < 2 ug/mL (10-30); Salicylate < 2.8 mg/dL (<2.8)
[2021-03-30 21:32] LABS: Albumin 3.6 g/dL (3.4-5.0); BUN 14 mg/dL (7-18); Calcium 9.1 mg/dL (8.5-10.1); Glucose 128 mg/dL (74-106); Total Protein 7.6 g/dL (6.4-8.2)
[2021-03-30 21:33] LABS: ALT 23 U/L (16-63); AST 20 U/L (15-37); Alkaline Phosphatase 111 U/L (46-116); Anion Gap 11.3 mmol/L (3-11); Bilirubin, Total 0.4 mg/dL (0.2-1.0); CO2 24.7 mmol/L (21.0-32.0); Chloride 102 mmol/L (98-107); Potassium 3.5 mmol/L (3.5-5.1); Sodium 138 mmol/L (136-145)
[2021-03-30 21:37] LABS: COVID-19 PCR Negative (Negative)
[2021-03-30 21:49] LABS: ETHANOL BLOOD < 3.0 mg/dL (<10)
[2021-03-30 21:50] LABS: TSH (W/Ref FT4) 2.61 uIU/mL (0.36-3.74)
--- NOTE | 2021-03-30 22:24 | NUR.NOTE ---
[id number] belongings list complete. Report given to Brittany WAY Admitted to room 234 in stable condition.rsing Note:
[2021-03-30 22:42] LABS: Bilirubin Negative (Negative); Blood Negative (Negative); Clarity Clear (Clear); Glucose Negative (Negative); Ketones Negative (Negative); Leukocyte Esterase Negative (Negative); Nitrite Negative (Negative); Urobilinogen 0.2 EU/dL (Up TO 0.2); pH 6.5 (5-8)
[2021-03-30 23:30] VITALS: BP 122/76; PULSE 82; RESP 16; TEMP 36.5; O2SAT 95
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
[2021-03-31] MEDS: buPROPion-XL 150 MG TABCR PO (08:45)
[2021-03-31] MEDS: OLANZapine 5 MG TAB PO (08:46)
[2021-03-31] MEDS: Magnesium Oxide 400 MG TAB PO (08:46)
[2021-03-31] MEDS: cloNIDine 0.1 MG TAB PO ×3 (08:46→19:54)
[2021-03-31] MEDS: Omeprazole 20 MG CAPCR PO (08:46)
[2021-03-31] MEDS: Sertraline 50 MG TAB 150 MG PO (08:46)
[2021-03-31 09:33] VITALS: BP 125/83; PULSE 75; RESP 14; TEMP 36.9; O2SAT 97
[2021-03-31] MEDS: hydrOXYzine PAMOATE 25 MG CAP 50 MG PO ×2 (09:49→19:54)
[2021-03-31] MEDS: Levothyroxine 100 MCG TAB PO (09:49)
--- NOTE | 2021-03-31 11:24 | CMPROGNOTE_ITS ---
- If Service Date Differs Date of service: 03/31/21 Time of Service: 11:24 Care Management Progress Note S/O: Asim presented to the ED via EMS with a chief complaint of suicidal thoughts. Asim was lying in bed when CM met with him, but he quickly woke up and engaged in conversation. CM coordinated a zoom meeting with Troy Willett, [facility] HORSE RACETRACK MANAGER, who knows Asim well. Asim shared his concerns, including his new diagnosis of lung cancer, impending eviction of his apartment, fights with his neighbors, and having to give up his dog. He reported that he doesn't feel that HORSE RACETRACK MANAGER is doing enough for him to keep him stable. He stated that if he is to return home today he would act on his suicidal thoughts by purchasing illegal drugs and overdosing intentionally. He agreed to referrals being sent to multiple hospitals, and stated that he would be happy to go to any bed offer that he receives. Per [facility], care beds in the state may also be an option for him, although the local care bed is currently full. CM will continue to follow. A: Asim is a 55 year old male admitted to [facility] on 03/30/21 with depression with SI. P: Asim remains at [facility] seeking voluntary placement at a psychiatric facility for stabilization. [facility] will follow up with referrals sent for placement. If accepted, he will transport via [employer] Equipment [employer] Instructor, coordinated by [facility]. He will follow up with his PCP and discharge plan of care. CM will continue to follow. - MH Services (Omit if N/A) Current MH Services: HORSE RACETRACK MANAGER - Status Status: Voluntary - Reason for Wait Reason for Wait: Inpatient Admission
--- NOTE | 2021-03-31 12:04 | CMSP_ITS ---
- If Service Date Differs Date of service: 03/31/21 Time of Service: 12:04 Care Management Safety Plan Status: Voluntary - Reason for Wait Reason for Wait: Inpatient Admission VOLUNTARY FOR INPATIENT PSYCHIATRIC STABILIZATION. Patient is appropriate in all interactions since arriving at [facility]; Pt has demonstrated appropriate coping and communication skills, has articulated his or her needs and concerns and is fully engaged during staff interactions. Safety plan has been established with patient, and care team, to adhere to patient goals, identify restrictions based on behavioral status, address nutr ition, and determine allowed personal belongings, tools for hygiene and personal care. Determine level of activity including ambulation, level of supervision, visitors, and determine privileges based on behaviors and level of engagement by pt. SAFETY PLAN: 1. Will remain on suicide precautions. In Paper Clothes or his own clothes, at RN discretion. 2. Will remain in room under direct supervision of one-on-one staff at all times provided by [facility]; DONTAE, NURSE CLINICAL stapling machine operator. 3. May have paper cups, plates, finger foods as well as a cardboard spoon with which to eat meals. May have metal spoon, at RN discretion. 4. Follow [facility] Management of the Admitted Behavioral Health Patient policy. 5. Comfort bath system or shower, at RN discretion. 6. May have own glasses and own phone, at RN discretion. 7. Visitors-No visitors at this time 8. Activities: Soft cart items such as coloring books and crayons, music tablet, television if available, and other activities at RN discretion. 9. Bathroom privileges in room, without limitation on M/S 10. Phone: May use hospital phone for incoming/outgoing calls at RN discretion. 11. Due to VOLUNTARY status, if patient wishes to leave [facility], staff will contact [facility] Crisis Screener ([phone]) and On-Call Premium Service Representative ([phone]) as soon as possible. In the event of elopement, notify [place] [employer] Police ). Patient is currently voluntarily at [facility] and seeking inpatient admission when a bed becomes available. [facility] Frontline Clamp Forklift Operator will continue seeking placement. Please contact the Scheduling Specialist Premium Service Representative ([phone]) and [facility] Clamp Forklift Operator ([phone]) for any needed changes in the Safety Plan. Safety plan has been provided to interdepartmental care team.
[2021-03-31 21:52] VITALS: BP 104/69; PULSE 74; RESP 14; TEMP 36.2; O2SAT 94
[2021-03-31] MEDS: Pravastatin 20 MG TAB PO (21:57)
[2021-03-31] MEDS: Gabapentin 300 MG CAP PO (21:57)
[2021-03-31] MEDS: traZODone 50 MG TAB PO (21:57)
[2021-03-31] MEDS: Melatonin 3 MG TAB 6 MG PO (21:57)
[2021-04-01] MEDS: Levothyroxine 100 MCG TAB PO (05:20)
[2021-04-01 08:41] VITALS: BP 117/83; PULSE 84; RESP 19; TEMP 36.7; O2SAT 95
[2021-04-01] MEDS: buPROPion-XL 150 MG TABCR PO (08:42)
[2021-04-01] MEDS: cloNIDine 0.1 MG TAB PO (08:42)
[2021-04-01] MEDS: OLANZapine 5 MG TAB PO (08:43)
[2021-04-01] MEDS: Magnesium Oxide 400 MG TAB PO (08:43)
[2021-04-01] MEDS: Omeprazole 20 MG CAPCR PO (08:43)
[2021-04-01] MEDS: Sertraline 50 MG TAB 150 MG PO (08:43)
[2021-04-01] MEDS: hydrOXYzine PAMOATE 25 MG CAP 50 MG PO (08:43)
--- NOTE | 2021-04-01 10:03 | CMPROGNOTE_ITS ---
- If Service Date Differs Date of service: 04/01/21 Time of Service: 10:03 Care Management Progress Note S/O: Asim presented to the ED via EMS with a chief complaint of suicidal thoughts. A: Asim is a 55 year old male admitted to [facility] on 03/30/21 with depression with SI. P: Asim remains at [facility] seeking voluntary placement at a psychiatric facility for stabilization. [facility] will follow up with referrals sent for placement. If accepted, he will transport via Supervisor [employer]ro[employer], coordinated by CM. He will follow up with his PCP and discharge plan of care. CM will continue to follow.
--- NOTE | 2021-04-01 10:04 | PDOC.CMSAFE ---
- If Service Date Differs Date of service: 04/01/21 Time of Service: 10:05 Care Management Safety Plan Status: Voluntary - Reason for Wait Reason for Wait: Inpatient Admission VOLUNTARY FOR INPATIENT PSYCHIATRIC STABILIZATION. Patient is appropriate in all interactions since arriving at [facility]; Pt has demonstrated appropriate coping and communication skills, has articulated his or her needs and concerns and is fully engaged during staff interactions. Safety plan has been established with patient, and care team, to adhere to patient goals, identify restrictions based on behavioral status, address nutrition, and determine allowed personal belongings, tools for hygiene and personal care. Determine level of activity including ambulation, level of supervision, visitors, and determine privileges based on behaviors and level of engagement by pt. SAFETY PLAN: 1. Will remain on suicide precautions. In Paper Clothes or his own clothes, at RN discretion. 2. Will remain in room under direct supervision of one-on-one staff at all times provided by [employer]; [place], [facility] CENTER ATTENDANT vulcanizing press operator. 3. May have paper cups, plates, finger foods as well as a cardboard spoon with which to eat meals. May have metal spoon, at RN discretion. 4. Follow [facility] Management of the Admitted Behavioral Health Patient policy. 5. Comfort bath system or shower, at RN discretion. 6. May have own glasses and own phone, at RN discretion. 7. Visitors-No visitors at this time 8. Activities: Soft cart items such as coloring books and crayons, music tablet, television if available, and other activities at RN discretion. 9. Bathroom privileges in room, without limitation on M/S 10. Phone: May use hospital phone for incoming/outgoing calls at RN discretion. 11. Due to VOLUNTARY status, if patient wishes to leave [facility], staff will contact [facility] Crisis Screener ([phone]) and On-Call Cloth Shrinking Machine Operator Helper ([phone]) as soon as possible. In the event of elopement, notify [place] [employer] ([phone]). Patient is currently voluntarily at [facility] and seeking inpatient admission when a bed becomes available. [facility] Frontline French Edge Operator will continue seeking placement. Please contact the Dielectric Embossing Machine Operator Cloth Shrinking Machine Operator Helper ([phone]) and [facility] French Edge Operator ([phone]) for any needed changes in the Safety Plan. Safety plan has been provided to interdepartmental care team.
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
--- NOTE | 2021-04-01 14:39 | PDOC.CMDIS ---
- If Service Date Differs Date of service: 04/01/21 Time of Service: 14:39 LACE Index Scoring Tool - Questions: Length of Stay (in days): 2 Acuity (Admit via E.D.?): Yes Comorbidities: Chronic Pulmonary Disease, Any Tumor E.D. Visits: 30 - Answers: Total Score: 14 Risk of Readmission: High Risk Care Management Discharge Reason for Hospitalization: Depression and SI Discharge Plan: Asim will be discharged home with a rewsumption of community supports on a safety plan formulated with LINING STITCHER worker. Patient/Family Education Needs: Reinforce the need for using coping skills, asking for assistance as needed and engaging in activities that are calming.
--- NOTE | 2021-04-01 14:43 | NUR.NOTE ---
Nursing Note: This RN agrees with all of the q1hr behavior reassessments that the KELP GATHERER has been documenting.
== END 2021-04-01 13:08 | disposition home or self-care (01) | DRG 885 ==
LOC: ER 22:25 → MS 23:08
PROVIDERS: Admitting Provider Internal Medicine; Emergency Provider Physician Assistant; PCP Nurse Practitioner; Visit Provider Internal Medicine
DX: F31.4 Bipolar disorder, current episode depressed, severe, without psychotic features (principal); R45.851 Suicidal ideations; F41.9 Anxiety disorder, unspecified; K21.9 Gastro-esophageal reflux disease without esophagitis; E78.00 Pure hypercholesterolemia, unspecified; J44.9 Chronic obstructive pulmonary disease, unspecified; E03.9 Hypothyroidism, unspecified; F17.210 Nicotine dependence, cigarettes, uncomplicated; Z20.822 Contact with and (suspected) exposure to COVID-19
CPT/HCPCS: 36415; 80053; 80307; 87635; 99285; 80320; 80329; 81003; 84443; 85025; 99222; 99232; 99238

== ENCOUNTER 2021-04-06 15:46 | Emergency (ER) | payer MEDICAID, SELFPAY ==
[2021-04-06 15:47] VITALS: BP 123/89; PULSE 98; RESP 16; TEMP 36.9; O2SAT 95
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
--- NOTE | 2021-04-06 18:02 | PDOC.MHCN_ITS ---
Date of service: 04/06/21 Time of Service: 18:02 Mental Health Crisis Note Presenting Issue How did you arrive at the ED and why did you come: Client presented the ED via [facility] and he reports feeling very frustrated with everything, feeling lonely and that he cannot take it anymore. Precipitating Factors Client denied SI/HI at this time. Client also denied intent and/or plan initially during this assessment. However, when this clinician talked about discharging and safety plan, client then stated: I feel like I would end up doing something stupid when I go home. Disposition BEHAVIOR: Client presented as manipulative, tangential in thought process and content. Client also presented with poor insight and judgment. EYE CONTACT: Client maintained minimal eye contact. MOOD: Client presented with irritable mood. Client reported depressed mood as well. AFFECT: Client presented with flat affect. APPETITE: Client reported poor appetite. However, client was observed by this clinician having dinner. Client is also reported by hospital staff to have requested snacks, dinner as well as milk during the almost 2 hours he had been a dmitted. SLEEP(trouble falling/staying asleep: Client reported poor sleep and stated he get weird dreams. Client stated he has been avoiding sleep because of this. Plan Client is discharged home with a safety plan. Client is agreeable to palliative care at this time and a referral would be made by [facility] on his behalf. Client also requested someone from his treatment team at [facility] checks in with him tomorrow and possibly the day after. Client would follow-up with his treatment team after discharge. Signature Clinician's Name/Title: Alejandra Lopez / Emergency Services Clinician, [facility]
[2021-04-06 18:32] VITALS: BP 111/77; PULSE 88; RESP 14; O2SAT 95
== END 2021-04-06 19:18 | disposition home or self-care (01) ==
PROVIDERS: Emergency Provider Physician Assistant; PCP Nurse Practitioner
DX: Z73.3 Stress, not elsewhere classified (principal); Z60.8 Other problems related to social environment
CPT/HCPCS: 99284; 99283

== ENCOUNTER 2021-06-23 12:52 | Observation (INO) | payer MEDICAID, SELFPAY ==
[2021-06-23 12:46] VITALS: BP 126/81; PULSE 92; TEMP 36.6; O2SAT 96
--- NOTE | 2021-06-23 13:01 | W.ED.GENAD ---
Discharge Plan Disposition Patient Disposition: STILL A PATIENT Condition: Stable Discharge Details Clinical Impression: Depressed Admit Date/Time: 06/23/21 21:09 Admit Provider: Chung Pérez Attending Provider: Chung Pérez Primary Care Provider: Fariba Forde ED Provider: Francisco Majano Discharge Data Discharge Date/Time-TO BE ENTERED AT DEPARTURE: 06/23/21 21:45 Medical Decision Making <Jagdish Aleman MD - Last Filed: 06/24/21 07:34> 55-year-old male presents via EMS. He feels despondent, depressed and has had thoughts of suicide. He relates to me this is partly due to the stressors of losing some of his SSI, noisy downstairs neighbors, and other community stressors. He is well-appearing, interactive, no acute distress. Medical screen examination performed patient medically stable for further evaluation by crisis services. Patient signed out to Dr Majano pending further disposition. <Francisco Majano MD - Last Filed: 06/28/21 14:05> Patient transitioned to psych holding bed - care transitioned to hospitalist telecommunications project manager Dr. Pérez. HPI <Jagdish Aleman MD - Last Filed: 06/24/21 07:34> General Mode of arrival: ambulatory. Date/Time Provider Initiated Documentation: 06/23/21 12:57. Limitations to Documentation: no limitations. Information obtained by: patient. History of Present Illness 55 year old M presents to the emergency department with the chief complaint of Deopressed, described as moderate and similar to prior episodes, Quality is described as constant, Patient started experiencing this week(s) and it has been constant. No relieving factors improve symptom(s), No exacerbating factors reported . Patient notes no other symptoms.. Patient did receive the following treatments prior to arrival, none Related Data Home Medications Medication Instructions Recorded Confirmed omeprazole 20 mg PO QAM 10/16/13 06/23/21 magnesium oxide 400 mg PO [facility] 10/20/19 06/23/21 melatonin 10 mg PO 12/19/19 06/23/21 olanzapine 5 mg PO QA 12/19/19 06/23/21 pravastatin 20 mg PO 12/19/19 06/23/21 trazodone 50 mg PO 12/19/19 06/23/21 hydroxyzine pamoate [Vistaril] 25 mg PO BID 11/16/20 02/03/22 sennosides [senna] 8.6 mg PO BID PRN 04/05/20 06/23/21 ondansetron 4 mg PO Q8H PRN #7 tab 09/24/20 06/23/21 gabapentin 300 mg PO .QHS 09/28/20 06/23/21 bupropion HCl 150 mg PO QAM #30 tab 01/24/21 06/23/21 sertraline 150 mg PO QAM #60 tab 01/24/21 06/23/21 levothyroxine 100 mcg PO DAILY@0600 03/31/21 06/23/21 Previous Rx's Medication Instructions Recorded ondansetron 4 mg PO Q8H PRN #7 tab 09/24/20 bupropion HCl 150 mg PO QAM #30 tab 01/24/21 sertraline 150 mg PO QAM #60 tab 01/24/21 Allergies Allergy/AdvReac Type Severity Reaction Status Date / Time Sulfa (Sulfonamide Allergy Severe Swelling/Ed Unverified 06/23/21 12:52 Antibiotics) jostin General Stated Complaint: PsychEval ABA: 2 Review of Systems <Jagdish Aleman MD - Last Filed: 06/24/21 07:34> Narrative: otherwise well, No acute compliaints, no head/back/chest pain PFSH <Jagdish Aleman MD - Last Filed: 06/24/21 07:34> All Active Problems (Updated 06/25/21 @ 00:01 by STEVIE LEE) Other social stressor (Acute) Homicidal ideation (Acute) Nausea (Acute) Agitation (Acute) Hemoptysis (Acute) Shingles (Acute) Rash (Acute) Rib pain (Acute) Thumb injury (Acute) Abnormal chest CT (Acute) GERD (gastroesophageal reflux disease) (Chronic) DVT prophylaxis (Acute) Hypercholesterolemia (Chronic) Suicidal thoughts (Acute) Suicidal ideations (Acute) Leukocytosis (Chronic) Tobacco abuse (Chronic) Suicidal ideation (Acute) Anxiety (Chronic) Hypothyroid (Chronic) Depression (Chronic) COPD (chronic obstructive pulmonary disease) (Chronic) Depression (Chronic) Bipolar disorder (Chronic) Discharge planning issues (Acute) Depression with suicidal ideation (Acute) Medical History Bipolar disorder Traumatic pneumothorax 2017, chest tube x2 Surgical History History of ankle surgery S/P thoracostomy tube placement Social History Smoking/Tobacco Use Status: Current every day Tobacco Type: cigarettes Smoking risk assessment performed?: Yes Alcohol Intake: never Drug use: Daily Substance use type: marijuana Current gender identity: male Do you feel safe at home: Yes Do you feel safe in your relationship?: Yes Additional Social history: Lives in a private apartment. Has [facility] case management Exam <Jagdish Aleman MD - Last Filed: 06/24/21 07:34> Narrative Exam Narrative: GEN: awake, alert, oriented 3. Pleasant, well groomed, interactive. HEAD: Normocephalic, atraumatic ENT: Mucous membranes moist, oropharynx unremarkable, External ear exam unremarkable EYES: PERRL, EOMI NECK: Full ROM, no ELLIS, no menigismus CHEST/RESP: Nontender, clear to auscultation bilateral, no wheeze/rhonchi/rales CARDIOVASCULAR: RRR, no murmur, rub jose. 2+ Rad pulse bilateral ABDOMEN: Soft, nontender, no mass. +Bowel sounds EXT: Full ROM, no edema, no rash Neuro: Grossly normal neurologic exam, conversant, interactive. Psych: Speech fluent, thoughts congruent, affect normal Course <Jagdish Aleman MD - Last Filed: 06/24/21 07:34> Vital Signs Vital signs: Vital Signs Temperature 36.6 C 06/23/21 12:46 Pulse 92 H 06/23/21 12:46 Blood Pressure 126/81 06/23/21 12:46 Pulse Oximetry 96 06/23/21 12:46 Temperature 36.6 C 06/23/21 12:46 Pulse 92 H 06/23/21 12:46 Respiratory Effort Non-Labored 06/23/21 12:53 Blood Pressure 126/81 06/23/21 12:46 Blood Pressure Position Sitting 06/23/21 12:46 Pulse Oximetry 96 06/23/21 12:46 Oxygen Delivery Method Room Air 06/23/21 12:46 Oxygen Flow Rate 0 06/23/21 12:46 Sign Out <Jagdish Aleman MD - Last Filed: 06/24/21 07:34> Sign Out Data: Sign Out Comment: VOluntary for depression Last updated by Jagdish Aleman MD at 06/23/21 19:13
[2021-06-23 13:29] LABS: Abs Immature Grans 0.04 10^3/uL (0.0-0.06); Absolute Basophil Count 0.05 10^3/uL (0.0-0.2); Absolute Eosinophil Count 0.17 10^3/uL (0.0-0.7); Absolute Lymphocyte Count 2.04 10^3/uL (1.2-3.4); Absolute Monocyte Count 0.52 10^3/uL (0.1-0.8); Absolute Neutrophil Count 6.35 10^3/uL (1.2-6.7); Basophils % 0.5; Eosinophils % 1.9; HCT 43.7 % (40.0-50.0); HGB 14.2 g/dL (13.5-17.5); Immature Grans % 0.4; Lymphocytes % 22.2; MCH 25.8 pg (27.0-33.0); MCHC 32.5 % (32.0-36.0); MCV 79.5 fL (80-95); MPV 10.1 fL (8.0-11.0); Monocytes % 5.7; Neutrophils % 69.3; Nucleated RBC 0 %; Platelet Count 207 10^3/uL (130-400); RDW 13.9 % (11.8-14.1); RDW-SD 40.2 fL; WBC 9.17 10^3/uL (4.4-10.8)
[2021-06-23 13:55] LABS: Acetaminophen < 2 ug/mL (10-30)
[2021-06-23 14:01] LABS: ALT 21 U/L (16-63); AST 18 U/L (15-37); Albumin 3.6 g/dL (3.4-5.0); Alkaline Phosphatase 119 U/L (46-116); Anion Gap 10.9 mmol/L (3-11); BUN 18 mg/dL (7-18); Bilirubin, Total 0.3 mg/dL (0.2-1.0); CO2 25.1 mmol/L (21.0-32.0); CREATININE 0.9 mg/dL (0.70-1.30); Chloride 101 mmol/L (98-107); Glucose 117 mg/dL (74-106); Potassium 4.1 mmol/L (3.5-5.1); Sodium 137 mmol/L (136-145); TSH (W/Ref FT4) 2.33 uIU/mL (0.36-3.74); Total Protein 7.6 g/dL (6.4-8.2)
[2021-06-23 14:02] LABS: ETHANOL BLOOD < 3.0 mg/dL (<10)
--- NOTE | 2021-06-23 14:11 | CMSP_ITS ---
- If Service Date Differs Date of service: 06/23/21 Time of Service: 14:11 Care Management Safety Plan Status: Voluntary - Reason for Wait Reason for Wait: Inpatient Admission Chief Complaint: Asim is a 55 year old male who lives alone in an apartment in [place]. He has an extensive psychiatric history with multiple hospitalizations for suicidal ideation and depression. Asim receives services through [facility]. He presents to the ED today for suicidal ideation. Asim was assessed by Maegan of [facility] and found to meet criteria for a voluntary psychiatric hospitalization. Referrals have been faxed by [facility] to [facility], [facility], and [facility] for review. Asim will remain at [facility] on voluntary status while [facility] seeks placement for him. He will be reassessed daily to ensure he continues to meet criteria for inpatient hospitalization. VOLUNTARY FOR INPATIENT PSYCHIATRIC STABILIZATION. Patient is appropriate in all interactions since arriving at [facility]; Pt has demonstrated appropriate coping and communication skills, has articulated his or her needs and concerns and is fully engaged during staff interactions. A huddle is held at approximately 16:[address] Aleman, ED Provider, Uma, Nursing Night Shift Manager, Sole, Charge Nurse, SEAMUS Jane, and OLIMPIA Munson, in attendance. Safety plan has been established with patient, and care team, to adhere to patient goals, identify restrictions based on behavioral status, address nutrition, and determine allowed personal belongings, tools for hygiene and personal care. Determine level of activity including ambulation, level of supervision, visitors, and determine privileges based on behaviors and level of engagement by pt. SAFETY PLAN: 1. Will remain on suicide precautions and in paper clothes. 2. Will remain in room under direct supervision of one-on-one staff at all times provided by CPSO, DONTAE, EVP SALES automation and controls instructor. 3. May have paper cups, plates, finger foods as well as a cardboard spoon with which to eat meals. 4. Follow [facility] Management of the Admitted Behavioral Health Patient policy. 5. Shower permitted with escort at RN discretion. 6. No personal belongings at this time with the exception of eyeglasses. 7. No visitors at this time. 8. Activities: Soft cart items, music tablet, television if available, and other activities at RN discretion. 9. Bathroom privileges with escort in ED, available in room without limitation on Med/Surg. 10. Phone: may use hospital cordless phone at RN discretion. 11. Due to VOLUNTARY status, if patient wishes to leave [facility], staff will contact [facility] Crisis Screener ([phone]) and On[facility]Call Children'S Librarian ([phone]) as soon as possible. In the event of elopement, notify [facility] Police ([phone]). Patient is currently voluntarily at [facility] and seeking inpatient admission when a bed becomes available. [facility] Frontline Superintendent Storage Area will continue seeking placement. Please contact the Dental Hygienist Children'S Librarian ([phone]) and [facility] Superintendent Storage Area ([phone]) for any needed changes in the Safety Plan. Safety plan has been provided to interdepartmental care team.
[2021-06-23 14:13] LABS: Source Nasal/Nares
[2021-06-23 14:56] LABS: COVID-19 PCR Negative (Negative)
[2021-06-23 14:57] LABS: Bilirubin Negative (Negative); Blood Negative (Negative); Clarity Clear (Clear); Glucose Negative (Negative); Ketones Negative (Negative); Leukocyte Esterase Negative (Negative); Nitrite Negative (Negative); Urobilinogen 0.2 EU/dL (Up TO 0.2)
[2021-06-23 15:06] LABS: *AMPHETAMINES SCREEN URINE Negative (Negative); *BARBITURATES SCREEN URINE Negative (Negative); *BENZODIAZEPINES SCREEN URINE Negative (Negative); Cannabinoids THC Positive (Negative); Cocaine Screen,Urine Negative (Negative); METHADONE URINE SCREEN Negative (Negative); OPIATES URINE SCREEN Negative (Negative)
[2021-06-23 15:09] LABS: Tricyclic Antidepressants Negative (Negative)
--- NOTE | 2021-06-23 15:39 | NUR.NOTE ---
Nursing Note: 1532 06/23/2021 Pt requested his cellphone to give me number for Kaylee Mercedes [phone] to picker tender his house archer to get his dog for care. Kaylee told me that Jim Lackey would picker tender his keys. Jim just arrived I asked his name and keys were given to him. Pt phone was placed back in to his pant pocket in his pt belonging bag.
[2021-06-23] MEDS: traZODone 50 MG TAB PO (18:28)
[2021-06-23] MEDS: Gabapentin 300 MG CAP PO (18:28)
[2021-06-23] MEDS: Melatonin 3 MG TAB 9 MG PO (22:42)
[2021-06-23 23:10] VITALS: BP 124/86; PULSE 76; RESP 20; TEMP 36.4; O2SAT 96
[2021-06-23] MEDS: Pravastatin 20 MG TAB PO (23:38)
--- NOTE | 2021-06-24 07:03 | W.PM.HP.N ---
Date of service: 06/24/21 Time of Service: 07:04 Assessment and Plan Assessment and plan (1) Stress: Status: Acute (2) Suicidal thoughts: Status: Resolved Assessment and plan: He is admitted for suicidal ideation. I think a lot of reason for this is his social situation. I will continue his current medicines and have mental health work with him to obtain a psychiatric bed basement. His care will be taken over by the day [facility] staff. He says he does not want to be resuscitated if he has a cardiac or respiratory arrest. He has declined treatment for his lung cancer. History of Present Illness History of Present Illness Chief Complaint: depression, suicidal ideation Narrative: This 55-year-old male is here because of depression and suicidal ideation. He says that he has no family and only has friends and count on with one hand. He has history of lung cancer and has chosen not to treat this in any way. He has numerous factors in his life that have caused him to feel depressed and want to commit suicide. He says that he cannot have a gun but if he had one he would think about using it. He has been in psychiatric facilities numerous times in the past. He does want to get help with his suicidal thoughts. He says I am used up. He has difficulties with his Social Security payments as well as problems with his neighbors. He does smoke about half pack cigarettes a day and uses marijuana all day long. He does not use alcohol or other drugs by history. Lung cancer was diagnosed last August. He did receive 1 dose of the [employer] COVID vaccine and is interested in getting a booster although he says his immune system is quite strong. He did present to the emergency department yesterday and would be a voluntary admission to a psychiatric facility for suicidal ideation. Review of Systems Constitutional Constitutional: Denies body ache(s), Denies chills, Denies difficulty sleeping and Denies fever(s) ENT Ears, Nose, Mouth, and Throat: Denies odynophagia Cardiovascular Cardiovascular: Denies chest pain, Denies radiating jaw, neck or arm pain, Denies palpitations and Denies dyspnea Respiratory Respiratory: Denies cough, Denies hemoptysis, Denies dyspnea and Denies wheezing Gastrointestinal Gastrointestinal: Denies abdominal pain, Denies constipation, Denies odynophagia and Denies vomiting Comments: Occasional nausea. Genitourinary Genitourinary: Denies difficulty urinating Neurologic Neurologic: Denies behavioral changes Psychiatric Psychiatric: Denies behavioral changes and Reports suicidal ideation Endocrine Endocrine: Denies palpitations Allergic/Immunologic Allergic/Immunologic: Denies wheezing PFSH All Active Problems Stress (Acute) Other social stressor (Acute) Homicidal ideation (Acute) Nausea (Acute) Agitation (Acute) Hemoptysis (Acute) Shingles (Acute) Rash (Acute) Rib pain (Acute) Thumb injury (Acute) Abnormal chest CT (Acute) GERD (gastroesophageal reflux disease) (Chronic) DVT prophylaxis (Acute) Hypercholesterolemia (Chronic) Suicidal thoughts (Acute) Suicidal ideations (Acute) Leukocytosis (Chronic) Tobacco abuse (Chronic) Suicidal ideation (Acute) Anxiety (Chronic) Hypothyroid (Chronic) Depression (Chronic) COPD (chronic obstructive pulmonary disease) (Chronic) Depression (Chronic) Bipolar disorder (Chronic) Discharge planning issues (Acute) Depression with suicidal ideation (Acute) Medical History Bipolar disorder Traumatic pneumothorax 2017, chest tube x2 Surgical History History of ankle surgery S/P thoracostomy tube placement Social History Smoking/Tobacco Use Status: Current every day Tobacco Type: cigarettes Smoking risk assessment performed?: Yes Alcohol Intake: never Drug use: Daily Substance use type: marijuana Current gender identity: male Do you feel safe at home: Yes Do you feel safe in your relationship?: Yes Additional Social history: Lives in a private apartment. Has [facility] case management Meds Allergies and Home Medications Allergies Allergy/AdvReac Type Severity Reaction Status Date / Time Sulfa (Sulfonamide Allergy Severe Swelling/Ed Unverified 06/23/21 12:52 Antibiotics) jostin Home Medications Medication Instructions Recorded Confirmed Type omeprazole 20 mg PO QAM 10/16/13 06/23/21 History magnesium oxide 400 mg PO QAM 10/20/19 06/23/21 History melatonin 10 mg PO 12/19/19 06/23/21 History olanzapine 5 mg PO QAM 12/19/19 06/23/21 History pravastatin 20 mg PO HS 12/19/19 06/23/21 History trazodone 50 mg PO 12/19/19 06/23/21 History hydroxyzine pamoate [Vistaril] 25 mg PO BID 04/05/20 06/23/21 History sennosides [senna] 8.6 mg PO BID PRN 04/05/20 06/23/21 History ondansetron 4 mg PO Q8H PRN #7 tab 09/24/20 06/23/21 Rx gabapentin 300 mg PO .QHS 09/28/20 06/23/21 History bupropion HCl 150 mg PO QAM #30 tab 01/24/21 06/23/21 Rx sertraline 150 mg PO QAM #60 tab 01/24/21 06/23/21 Rx levothyroxine 100 mcg PO DAILY@0600 03/31/21 06/23/21 History Exam Const General: cooperative, well developed and disheveled Orientation: alert, awake and oriented x3 HENMT Head: normal to inspection and atraumatic Neck Neck: normal visual inspection and no lymphadenopathy Thyroid: thyroid normal Resp Auscultation: clear to auscultation bilaterally, no rales, no rhonchi and no wheezes Cardio Jugular venous pressure: no JVD Rate: regular rate Rhythm: regular rhythm Heart Sounds: S1 normal, S2 normal, no gallops, no murmurs and no rubs GI Inspection: normal to inspection Palpation: soft, no hepatosplenomegaly and nontender Skin General skin exam: no rashes or lesions noted Extrem General: no calf tenderness bilaterally, no cyanosis and no edema Psych Appearance: disheveled Mental Status: mental status grossly normal Speech and Movement: speech and movement normal Thought Process: normal Thought Content: normal Insight: fair Results Labs Result diagrams: 06/23/21 13:19 06/23/21 13:19 Labs: Laboratory Results - last 24 hr 06/23/21 06/23/21 06/23/21 13:19 13:19 13:19 WBC 9.17 RBC 5.50 Hgb 14.2 Hct 43.7 MCV 79.5 L MCH 25.8 L MCHC 32.5 RDW 13.9 Plt Count 207 MPV 10.1 Immature Gran % 0.4 Neutrophils % 69.3 Lymphocytes % 22.2 Monocytes % 5.7 Eosinophils % 1.9 Basophils % 0.5 Nucleated RBC % 0 Absolute Neutrophils 6.35 Absolute Lymphocytes 2.04 Absolute Monocytes 0.52 Absolute Eosinophils 0.17 Absolute Basophils 0.05 Sodium 137 Potassium 4.1 Chloride 101 Carbon Dioxide 25.1 Anion Gap 10.9 BUN 18 Creatinine 0.9 Estimated GFR/1.73 m2 >= 60.00 Glucose 117 H Calcium 9.0 Total Bilirubin 0.3 AST 18 ALT 21 Alkaline Phosphatase 119 H Total Protein 7.6 Albumin 3.6 TSH 2.33 Urine Color Urine Clarity Urine pH Ur Specific [place] Urine Protein Urine Ketones Urine Blood Urine Nitrite Urine Bilirubin Urine Urobilinogen Ur Leukocyte Esterase Urine Glucose Salicylates 4.0 Urine Opiates Screen Urine Methadone Screen Acetaminophen < 2 Ur Barbiturates Screen Ur Tricyclics Screen Ur Amphetamines Screen U Benzodiazepines Scrn Urine Cocaine Screen Ur THC Screen Ethyl Alcohol < 3.0 COVID-19 Source SARS-CoV-2 (PCR) 06/23/21 06/23/21 06/23/21 14:05 14:30 14:30 WBC RBC Hgb Hct MCV MCH MCHC RDW Plt Count MPV Immature Gran % Neutrophils % Lymphocytes % Monocytes % Eosinophils % Basophils % Nucleated RBC % Absolute Neutrophils Absolute Lymphocytes Absolute Monocytes Absolute Eosinophils Absolute Basophils Sodium Potassium Chloride Carbon Dioxide Anion Gap BUN Creatinine Estimated GFR/1.73 m2 Glucose Calcium Total Bilirubin AST ALT Alkaline Phosphatase Total Protein Albumin TSH Urine Color Yellow Urine Clarity Clear Urine pH 7.0 Ur Specific [place] 1.020 Urine Protein Negative Urine Ketones Negative Urine Blood Negative Urine Nitrite Negative Urine Bilirubin Negative Urine Urobilinogen 0.2 Ur Leukocyte Esterase Negative Urine Glucose Negative Salicylates Urine Opiates Screen Negative Urine Methadone Screen Negative Acetaminophen Ur Barbiturates Screen Negative Ur Tricyclics Screen Negative Ur Amphetamines Screen Negative U Benzodiazepines Scrn Negative Urine Cocaine Screen Negative Ur THC Screen Positive A Ethyl Alcohol COVID-19 Source Nasal/Nares SARS-CoV-2 (PCR) Negative Last Vital Signs Temp 36.4 C L 06/23/21 23:10 Pulse 76 06/23/21 23:10 Resp 20 06/23/21 23:10 BP 124/86 06/23/21 23:10 Pulse Ox 96 06/23/21 23:10
[2021-06-24 08:46] VITALS: BP 102/69; PULSE 72; RESP 16; TEMP 35.7; O2SAT 97
[2021-06-24] MEDS: Magnesium Oxide 400 MG TAB PO (09:07)
[2021-06-24] MEDS: Sertraline 50 MG TAB 150 MG PO (09:07)
[2021-06-24] MEDS: hydrOXYzine PAMOATE 25 MG CAP PO (09:07)
[2021-06-24] MEDS: Omeprazole 20 MG CAPCR PO (09:08)
[2021-06-24] MEDS: buPROPion-XL 150 MG TABCR PO (09:08)
[2021-06-24] MEDS: OLANZapine 5 MG TAB PO (09:08)
[2021-06-24] MEDS: Levothyroxine 100 MCG TAB PO (09:08)
--- NOTE | 2021-06-24 10:30 | NUR.NOTE ---
Nursing Note: internal security manager and nursing agree pt is safe to have tablet per his request.
--- NOTE | 2021-06-24 16:06 | DSE_ITS ---
Date of service: 06/24/21 Time of Service: 16:07 DS: Diagnosis Discharge Diagnosis (1) Stress: Status: Acute (2) Suicidal thoughts: Status: Resolved Discharge Plan Disposition Patient Disposition: HOME Condition: Stable Discharge Details Reason For Visit: Suicidal Admit Date/Time: 06/23/21 21:09 Admit Provider: Chung Pérez Attending Provider: Chung Pérez Primary Care Provider: Fariba Forde Hospital Course Hospital Course: This is a 55 year old male well known to [facility] for multiple psychiatric presentations, who presented to the ED with reports of depression and suicidal ideation. He says that he cannot have a gun but if he had one he would think about using it. He has been in psychiatric facilities numerous times in the past. He does want to get help with his suicidal thoughts. He says I am used up. He has difficulties with his Social Security payments as well as problems with his neighbors. He does smoke about half pack cigarettes a day and uses marijuana all day long. He does not use alcohol or other drugs by history. Lung cancer was diagnosed last August. He did receive 1 dose of the [employer] COVID vaccine. His medically screening was unremarkable and he was cleared for mental health evaluation. He had no behavioral disturbances while here. overnight he was kept on med/surg for voluntary placement/discharge plan. in the am mental health and patient came up with an outpatient discharge plan. he is to being discharged to home to f/u with mental health as planned discharge discussed with DR Humphrey Lopez Meds and New Rx's Prescriptions: Continued omeprazole 20 MG capsule,delayed release(DR/EC) 20 mg PO QAM RF: 0 magnesium oxide 400 mg (241.3 mg magnesium) tablet 400 mg PO QAM RF: 0 sennosides [senna] 8.6 mg Tablet 8.6 mg PO BID PRNRF: 0 hydroxyzine pamoate [Vistaril] 25 mg Capsule 25 mg PO BID RF: 0 ondansetron 4 mg tablet,disintegrating 4 mg PO Q8H PRN (Reason: nausea and vomiting) Qty: 7 RF: 0 bupropion HCl 150 mg tablet extended release 24 hr 150 mg PO QAM Qty: 30 RF: 0 sertraline 100 mg tablet 150 mg PO QAM Qty: 60 RF: 0 trazodone 50 mg tablet 50 mg PO HS RF: 0 olanzapine 5 mg tablet 5 mg PO QAM RF: 0 melatonin 3 mg tablet 10 mg PO HS RF: 0 pravastatin 20 mg tablet 20 mg PO HS RF: 0 gabapentin 300 mg capsule 300 mg PO .QHS RF: 0 levothyroxine 100 mcg Tablet 100 mcg PO DAILY@0600 RF: 0 Discharge Instructions Instructions: Suicide Prevention (DC) Stand Alone Forms: Nursing Discharge Form Referrals: Chung Perry [ [facility] STAFF PHYSICIAN] - 06/27/21 2:00 pm Activity:: Activity as Tolerated Equipment/Supplies:: No Equipment Needed Diet:: As Tolerated Discharge Orders Discharge Orders: Discharge Order (Routine); Ordered 06/24/21 Ordered By: Maddie Awad DS: Summary Time Spent with Patient providing and/or coordinating discharge services: Less than 30 minutes Status at Discharge Functional status at discharge: independent ambulation Overall status at discharge: patient is back to baseline Mental Status: mental status grossly normal Speech and Movement: speech and movement normal Mood: congruent mood Affect: normal affect Exam Const General: cooperative, well developed and disheveled Orientation: alert, awake and oriented x3 HENMT Head: normal to inspection and atraumatic Neck Neck: normal visual inspection Resp Auscultation: clear to auscultation bilaterally Cardio Rate: regular rate Rhythm: regular rhythm GI Inspection: normal to inspection Palpation: soft Skin General skin exam: no rashes or lesions noted Extrem General: no edema Psych Appearance: disheveled Mental Status: mental status grossly normal Speech and Movement: speech and movement normal Mood: congruent mood Affect: normal affect Thought Process: normal Thought Content: normal Insight: fair DS: Data Vitals/I&O Vitals and I&O: Vital Signs Temperature 35.7 C L 06/24/21 08:46 Temperature Source Tympanic 06/24/21 08:46 Pulse 72 06/24/21 08:46 Pulse Rhythm Regular 06/24/21 08:35 Respiratory Rate 16 06/24/21 08:46 Respiratory Effort Non-Labored 06/24/21 08:35 Respiratory Depth Normal 06/24/21 08:35 Respiratory Pattern Normal 06/24/21 08:35 Blood Pressure 102/69 06/24/21 08:46 Blood Pressure Position Sitting 06/23/21 12:46 Pulse Oximetry 97 06/24/21 08:46 Oxygen Delivery Method Room Air 06/24/21 08:46 Oxygen Flow Rate 0 06/24/21 08:46 Pain Level 0 06/24/21 08:46 Intake & Output 06/23/21 06/24/21 06/24/21 23:59 11:59 23:59 Intake Total 480 / 480 Balance 480 / 480 Weight 75.9 kg Intake: Oral 480 / 480 Other: Comment patient reports no problems with voiding Used bathroom voiding indepndently in [facility] Voiding Methods Toilet Toilet PFSH All Active Problems (Updated 06/24/21 @ 07:34 by Jagdish Aleman MD) Depressed (Chronic) Stress (Acute) Other social stressor (Acute) Homicidal ideation (Acute) Nausea (Acute) Agitation (Acute) Hemoptysis (Acute) Shingles (Acute) Rash (Acute) Rib pain (Acute) Thumb injury (Acute) Abnormal chest CT (Acute) GERD (gastroesophageal reflux disease) (Chronic) DVT prophylaxis (Acute) Hypercholesterolemia (Chronic) Suicidal thoughts (Acute) Suicidal ideations (Acute) Leukocytosis (Chronic) Tobacco abuse (Chronic) Suicidal ideation (Acute) Anxiety (Chronic) Hypothyroid (Chronic) Depression (Chronic) COPD (chronic obstructive pulmonary disease) (Chronic) Depression (Chronic) Bipolar disorder (Chronic) Discharge planning issues (Acute) Depression with suicidal ideation (Acute) Medical History Bipolar disorder Traumatic pneumothorax 2017, chest tube x2 Surgical History History of ankle surgery S/P thoracostomy tube placement Social History Smoking/Tobacco Use Status: Current every day Tobacco Type: cigarettes Smoking risk assessment performed?: Yes Alcohol Intake: never Drug use: Daily Substance use type: marijuana Current gender identity: male Do you feel safe at home: Yes Do you feel safe in your relationship?: Yes Additional Social history: Lives in a private apartment. Has [facility] case management
[2021-06-24 16:17] VITALS: BP 111/73; PULSE 73; RESP 18; TEMP 37.1; O2SAT 96
--- NOTE | 2021-06-24 16:51 | PDOC.CMPRO ---
- If Service Date Differs Date of service: 06/24/21 Time of Service: 16:51 Care Management Progress Note S/O: Asim was sitting up in his chair when CM met with him. He reported that he was feeling like he needed to end it all yesterday because of the many stressful triggers in his life, including his neighbors that he doesn't get along with, and his diagnosis of lung cancer, which he is choosing not to treat. He stated today that he is not feeling suicidal or homicidal. A [facility] had been [facility] to [facility], who called this morning to inquire about admitting Asim. CM spoke to Asim about his options, and he stated that he doesn't feel that [facility] will be helpful, as he has been there several times. He called a friend to see if he could stay with him for a while, but wasn't able to get in touch with him. He asked about the [facility] Care [facility], but CM checked and it is full. Asim then stated that he feels safe returning home, with follow up from Maegan, his Welder Journeyman with [employer] tomorrow. CM coordinated a ride home for Asim through [employer] private vehicle. He is agreeable to the plan. A: Asim is a 55 year old male admitted to [facility] on 06/23/21 for SI. P: Asim is no longer feeling any SI/HI, and was agreeable to creating a safety plan to return home with follow up from [employer]. He was driven home via [facility] private vehicle. He will follow up with his PCP and discharge plan of care.
== END 2021-06-24 16:43 | disposition home or self-care (01) ==
LOC: ER 20:24 → MS 21:44
PROVIDERS: Emergency Medicine; Admitting Provider Family Medicine; Emergency Provider Student in an Organized Health Care Education/Training Program; PCP Nurse Practitioner; Visit Provider Family Medicine
DX: F32.A Depression, unspecified (principal); F43.9 Reaction to severe stress, unspecified; R45.851 Suicidal ideations; K21.9 Gastro-esophageal reflux disease without esophagitis; E78.00 Pure hypercholesterolemia, unspecified; E03.9 Hypothyroidism, unspecified; J44.9 Chronic obstructive pulmonary disease, unspecified; C34.90 Malignant neoplasm of unspecified part of unspecified bronchus or lung; F12.90 Cannabis use, unspecified, uncomplicated; F17.210 Nicotine dependence, cigarettes, uncomplicated; Z20.822 Contact with and (suspected) exposure to COVID-19
CPT/HCPCS: 36415; 80053; 80307; 87635; 99285; 80320; 80329; 81003; 84443; 85025; 99235; G0378

== ENCOUNTER 2021-07-07 17:21 | Emergency (ER) | payer MEDICAID, SELFPAY ==
[2021-07-07 17:12] VITALS: BP 116/85; PULSE 94; RESP 18; TEMP 36.9; O2SAT 95
--- NOTE | 2021-07-07 18:15 | ED.GENADUL_ITS ---
Discharge Plan Disposition Patient Disposition: HOME Condition: Stable Discharge Details Clinical Impression: Bipolar disorder Primary Care Provider: Fariba Forde ED Provider: Jaime Ballard Home Meds and New Rx's Prescriptions: Continued omeprazole 20 MG capsule,delayed release(DR/EC) 20 mg PO QAM 0RF Label Comments: Pt states he does not know what his meds are - someone drops them off and he does not take them. States he flushes them down the toilet. magnesium oxide 400 mg (241.3 mg magnesium) tablet 400 mg PO QAM 0RF Label Comments: Pt states he does not know what his meds are - someone drops them off and he does not take them. States he flushes them down the toilet. sennosides [senna] 8.6 mg Tablet 8.6 mg PO BID PRN0RF Label Comments: Pt states he does not know what his meds are - someone drops them off and he does not take them. States he flushes them down the toilet. hydroxyzine pamoate [Vistaril] 25 mg Capsule 25 mg PO BID 0RF Label Comments: Pt states he does not know what his meds are - someone drops them off and he does not take them. States he flushes them down the toilet. ondansetron 4 mg tablet,disintegrating 4 mg PO Q8H PRN (Reason: nausea and vomiting) Qty: 7 0RF bupropion HCl 150 mg tablet extended release 24 hr 150 mg PO QAM Qty: 30 0RF sertraline 100 mg tablet 150 mg PO QAM Qty: 60 0RF trazodone 50 mg tablet 50 mg PO HS 0RF Label Comments: Pt states he does not know what his meds are - someone drops them off and he does not take them. States he flushes them down the toilet. olanzapine 5 mg tablet 5 mg PO QAM 0RF Label Comments: Pt states he does not know what his meds are - someone drops them off and he does not take them. States he flushes them down the toilet. melatonin 3 mg tablet 10 mg PO HS 0RF Label Comments: Pt states he does not know what his meds are - someone drops them off and he does not take them. States he flushes them down the toilet. Rx Instructions: Take 2 tablets by mouth at bedtime pravastatin 20 mg tablet 20 mg PO HS 0RF Label Comments: Pt states he does not know what his meds are - someone drops them off and he does not take them. States he flushes them down the toilet. gabapentin 300 mg capsule 300 mg PO .QHS 0RF Label Comments: Take 1 capsule by mouth at bedtime levothyroxine 100 mcg Tablet 100 mcg PO DAILY@0600 0RF Discharge Instructions Additional Instructions: Please follow the instructions given to you by the mental health team. Watch for new or worse symptoms and return to the ER for any concerns. Otherwise please contact your primary care provider tomorrow to discuss your ER visit and need for outpatient reevaluation. Discharge Data Discharge Date/Time-TO BE ENTERED AT DEPARTURE: 07/07/21 18:23 Medical Decision Making 55-year-old gentleman presenting for mental health evaluation. He reports that he is irritated with his current situation but denies any suicidal homicidal ideation. At this time there are no acute medical concerns or complaints. I see no indication for reflexively obtaining laboratory values. I will request a mental health evaluation and request a CPSO with care plan given he is here in the ER for a mental health evaluation. After the mental health evaluation it is determined he requires hospitalization I will then pursue medical screening laboratory values for placement but it will not change my overall disposition. Mental health evaluation completed, he does not meet involuntary placement status, and they are able to safety plan him home without any difficulty. Patient is comfortable with this plan and has no additional questions concerns. Standard discharge and return precautions were provided. This documentation was generated using [employer] dictation system, please disregard any oddities of phrase or misspellings. Medical Records Medical records reviewed: Yes I reviewed the patient's medical records. HPI General Mode of arrival: EMS . Date/Time Provider Initiated Documentation: 07/07/21 17:31 . Limitations to Documentation: no limitations . Information obtained by: patient and EMS . HPI Narrative: This is a 55-year-old gentleman, well-known to our ER, presenting to the ER requesting a mental health evaluation. Patient has a past medical history of bipolar disorder. He states that he is tired of dealing with day-to-day stressors, states that he is lonely, and states that his knee bothers and make it difficult to sleep. He denies any suicidal or homicidal ideation and simply wants to talk to someone. He reports feeling safe. He denies any medical concerns or complaints at this time. Denies any symptoms or trauma. He denies any self harming behaviors today Related Data Home Medications Medication Instructions Recorded Confirmed omeprazole 20 mg capsule,delayed 20 mg PO QAM 10/16/13 07/07/21 release magnesium oxide 400 mg (241.3 mg 400 mg PO QAM 10/20/19 07/07/21 magnesium) tablet melatonin 3 mg tablet 10 mg PO HS 12/19/19 07/07/21 olanzapine 5 mg tablet 5 mg PO QAM 12/19/19 07/07/21 pravastatin 20 mg tablet 20 mg PO HS 12/19/19 07/07/21 trazodone 50 mg tablet 50 mg PO HS 12/19/19 07/07/21 hydroxyzine pamoate 25 mg capsule 25 mg PO BID 04/05/20 07/07/21 (Vistaril) sennosides 8.6 mg tablet (senna) 8.6 mg PO BID PRN 04/05/20 07/07/21 ondansetron 4 mg disintegrating 4 mg PO Q8H PRN #7 tab 09/24/20 07/07/21 tablet gabapentin 300 mg capsule 300 mg PO .QHS 09/28/20 07/07/21 bupropion HCl 150 mg 24 hr tablet, 150 mg PO QAM #30 tab 01/24/21 07/07/21 extended release sertraline 100 mg tablet 150 mg PO QAM #60 tab 01/24/21 07/07/21 levothyroxine 100 mcg tablet 100 mcg PO DAILY@0600 03/31/21 07/07/21 Previous Rx's Medication Instructions Recorded ondansetron 4 mg disintegrating 4 mg PO Q8H PRN #7 tab 09/24/20 tablet bupropion HCl 150 mg 24 hr tablet, 150 mg PO QAM #30 tab 01/24/21 extended release sertraline 100 mg tablet 150 mg PO QAM #60 tab 01/24/21 Allergies Allergy/AdvReac Type Severity Reaction Status Date / Time Sulfa (Sulfonamide Allergy Severe Swelling/Ed Unverified 07/07/21 17:21 Antibiotics) jostin General Stated Complaint: PsychEval ABA: 2 Review of Systems Constitutional Constitutional: Denies fever(s) Cardiovascular Cardiovascular: Denies chest pain and Denies dyspnea Respiratory Respiratory: Denies dyspnea Integumentary/Breasts Skin/Breast: Denies rash Psychiatric Psychiatric: Denies homicidal ideation and Denies suicidal ideation [facility] All Active Problems (Updated 07/07/21 @ 18:16 by RENAE Minaya) Other social stressor (Acute) Homicidal ideation (Acute) Nausea (Acute) Agitation (Acute) Hemoptysis (Acute) Shingles (Acute) Rash (Acute) Rib pain (Acute) Thumb injury (Acute) Abnormal chest CT (Acute) GERD (gastroesophageal reflux disease) (Chronic) DVT prophylaxis (Acute) Hypercholesterolemia (Chronic) Suicidal thoughts (Acute) Suicidal ideations (Acute) Leukocytosis (Chronic) Tobacco abuse (Chronic) Suicidal ideation (Acute) Anxiety (Chronic) Hypothyroid (Chronic) Depression (Chronic) COPD (chronic obstructive pulmonary disease) (Chronic) Depression (Chronic) Bipolar disorder (Chronic) Discharge planning issues (Acute) Depression with suicidal ideation (Acute) Medical History Bipolar disorder Traumatic pneumothorax 2017, chest tube x2 Surgical History History of ankle surgery S/P thoracostomy tube placement Social History Smoking/Tobacco Use Status: Current every day Tobacco Type: cigarettes Smoking risk assessment performed?: Yes Alcohol Intake: never Drug use: Daily Substance use type: marijuana Current gender identity: male Do you feel safe at home: Yes Do you feel safe in your relationship?: Yes Additional Social history: Lives in a private apartment. Has [facility] case management Exam Const General: cooperative, healthy appearing, comfortable and no acute distress Orientation: alert, awake and oriented x3 HENMT Head: normal to inspection, normocephalic and atraumatic Eyes Conjunctivae: conjunctivae normal Neck Neck: normal visual inspection, full ROM, trachea midline and supple Resp Effort & Inspection: normal respiratory effort and able to speak in complete sentences Auscultation: clear to auscultation bilaterally Cardio Rate: regular rate Rhythm: regular rhythm Skin General skin exam: no rashes or lesions noted Neuro General: patient alert, patient awake, patient oriented x3, moves all extremities and no focal motor deficits Cognition: normal cognition Speech: speech normal Gait: normal gait Motor: muscle tone normal throughout Sensory Exam: no sensory deficits noted Psych Appearance: grossly normal Mental Status: mental status grossly normal Speech and Movement: agitated Mood: congruent mood Affect: normal affect Attitude: cooperative Thought Process: normal Thought Content: normal Insight: fair Judgment: fair Course Vital Signs Vital signs: Vital Signs Temperature 36.9 C 07/07/21 17:12 Pulse 94 H 07/07/21 17:12 Respiratory Rate 18 07/07/21 17:12 Blood Pressure 116/85 07/07/21 17:12 Pulse Oximetry 95 07/07/21 17:12 Temperature 36.9 C 07/07/21 17:12 Temperature Source Temporal Artery Scan 07/07/21 17:12 Pulse 94 H 07/07/21 17:12 Respiratory Rate 18 07/07/21 17:12 Respiratory Effort Non-Labored 07/07/21 17:15 Blood Pressure 116/85 07/07/21 17:12 Blood Pressure Position Sitting 07/07/21 17:12 Pulse Oximetry 95 07/07/21 17:12 Oxygen Delivery Method Room Air 07/07/21 17:12 Oxygen Flow Rate 0 07/07/21 17:12 Pain Level 0 07/07/21 17:12
== END 2021-07-07 18:23 | disposition home or self-care (01) ==
PROVIDERS: Emergency Provider Physician Assistant; PCP Nurse Practitioner
DX: F31.9 Bipolar disorder, unspecified (principal); F32.9 Major depressive disorder, single episode, unspecified; Z91.14 Patient's other noncompliance with medication regimen
CPT/HCPCS: 99284; 99283

== ENCOUNTER 2021-07-08 11:30 | Emergency (ER) | payer MEDICAID, SELFPAY ==
[2021-07-08 11:04] VITALS: BP 139/91; PULSE 100; RESP 18; TEMP 36.3; O2SAT 95
--- NOTE | 2021-07-08 11:21 | W.ED.GENAD ---
Discharge Plan Disposition Patient Disposition: LEVEL III FACILITY Condition: Stable Discharge Details Clinical Impression: Suicidal thoughts Primary Care Provider: Fariba Forde ED Provider: Katheryn Kimball Meds and New Rx's Prescriptions: No Action omeprazole 20 MG capsule,delayed release(DR/EC) 20 mg PO QAM 0RF Label Comments: Pt states he does not know what his meds are - someone drops them off and he does not take them. States he flushes them down the toilet. magnesium oxide 400 mg (241.3 mg magnesium) tablet 400 mg PO QAM 0RF Label Comments: Pt states he does not know what his meds are - someone drops them off and he does not take them. States he flushes them down the toilet. sennosides [senna] 8.6 mg Tablet 8.6 mg PO BID PRN0RF Label Comments: Pt states he does not know what his meds are - someone drops them off and he does not take them. States he flushes them down the toilet. hydroxyzine pamoate [Vistaril] 25 mg Capsule 25 mg PO BID 0RF Label Comments: Pt states he does not know what his meds are - someone drops them off and he does not take them. States he flushes them down the toilet. ondansetron 4 mg tablet,disintegrating 4 mg PO Q8H PRN (Reason: nausea and vomiting) Qty: 7 0RF bupropion HCl 150 mg tablet extended release 24 hr 150 mg PO QAM Qty: 30 0RF sertraline 100 mg tablet 150 mg PO QAM Qty: 60 0RF trazodone 50 mg tablet 50 mg PO HS 0RF Label Comments: Pt states he does not know what his meds are - someone drops them off and he does not take them. States he flushes them down the toilet. olanzapine 5 mg tablet 5 mg PO QAM 0RF Label Comments: Pt states he does not know what his meds are - someone drops them off and he does not take them. States he flushes them down the toilet. melatonin 3 mg tablet 10 mg PO HS 0RF Label Comments: Pt states he does not know what his meds are - someone drops them off and he does not take them. States he flushes them down the toilet. Rx Instructions: Take 2 tablets by mouth at bedtime pravastatin 20 mg tablet 20 mg PO HS 0RF Label Comments: Pt states he does not know what his meds are - someone drops them off and he does not take them. States he flushes them down the toilet. gabapentin 300 mg capsule 300 mg PO .QHS 0RF Label Comments: Take 1 capsule by mouth at bedtime levothyroxine 100 mcg Tablet 100 mcg PO DAILY@0600 0RF Discharge Instructions Instructions: Depression (ED), Help Prevent Suicide (ED) Additional Instructions: Go directly to the care bed as instructed by mental health. Please return to the ED for any worsening thoughts of harming yourself or others. Follow up with primary care provider in 3-5 days. Return to ED sooner if any worsening or concerns. Increase oral fluids. Referrals: Fariba Forde [Primary Care Provider] - 2 weeks Discharge Data Discharge Date/Time-TO BE ENTERED AT DEPARTURE: 07/08/21 16:31 Medical Decision Making 55-year-old male with multiple ER visits for psychiatric and suicidal ideation presents to the ER with chief complaint of suicidal ideation and suicidal gestures. Patient reports that a mental health assessment came to his apartment this morning to deliver his medications and he had a blade to my throat he reports wanting to . She states I am just tired of everything I do not want any help I not want a medical evaluation I do not want to be here. Patient is refusing to have vital signs taken, or have any medical intervention. Despite explanations or requests. This time psychiatric work-up ordered, chemical and physical restraints ordered we will we will move patient to a room closer to the nurses station. 1202: I spoke with patient in the room, mental health contacted to request an in person evaluation. Sitter is at bedside. Patient is still refusing to get undressed or to have blood drawn at this time. 1243: Simi CAN attempted to perform a zoom meeting for psych evaluation, patient is refusing to speak to her at this time. She reports that they will take the next steps. I did request an in person evaluation. She reports that somebody will be in to attempt another evaluation. If the patient is EE the next plan will be to restrain patient, dry blood and possibly sedate. Patient is in a room closer to the nurses station sitter at bedside. Patient was offered food from nurse staff community health. Patient accepted food from RN, 1342: Maegan patient's lead case manager in to speak with patient. She reports that patient is now agreeable to have his blood drawn and he has already been accepted into the care bed. 1440: Spoke with Simi with [facility] who reports patient has been accepted for discharge to a care bed. Hamida will come and pick patient up to take him to get clothes and bring him to the care bed facility. HPI General Mode of arrival: ambulatory. Date/Time Provider Initiated Documentation: 07/08/21 12:02. Limitations to Documentation: no limitations. Information obtained by: patient, RN notes reviewed and old records reviewed. HPI Narrative: 55-year-old male with multiple ER visits for psychiatric and suicidal ideation presents to the ER with chief complaint of suicidal ideation and suicidal gestures. Patient reports that a mental health assessment came to his apartment this morning to deliver his medications and he had a blade to my throat he reports wanting to . She states I am just tired of everything I do not want any help I not want a medical evaluation I do not want to be here. Patient is refusing to have vital signs taken, or have any medical intervention. Despite explanations or requests. Related Data Home Medications Medication Instructions Recorded Confirmed omeprazole 20 mg capsule,delayed 20 mg PO QAM 10/16/13 07/07/21 release magnesium oxide 400 mg (241.3 mg 400 mg PO QAM 10/20/19 07/07/21 magnesium) tablet melatonin 3 mg tablet 10 mg PO HS 12/19/19 07/07/21 olanzapine 5 mg tablet 5 mg PO QAM 12/19/19 07/07/21 pravastatin 20 mg tablet 20 mg PO HS 12/19/19 07/07/21 trazodone 50 mg tablet 50 mg PO HS 12/19/19 07/07/21 hydroxyzine pamoate 25 mg capsule 25 mg PO BID 04/05/20 07/07/21 (Vistaril) sennosides 8.6 mg tablet (senna) 8.6 mg PO BID PRN 04/05/20 07/07/21 ondansetron 4 mg disintegrating 4 mg PO Q8H PRN #7 tab 09/24/20 07/07/21 tablet gabapentin 300 mg capsule 300 mg PO .QHS 09/28/20 07/07/21 bupropion HCl 150 mg 24 hr tablet, 150 mg PO QAM #30 tab 01/24/21 07/07/21 extended release sertraline 100 mg tablet 150 mg PO QAM #60 tab 01/24/21 07/07/21 levothyroxine 100 mcg tablet 100 mcg PO DAILY@0600 03/31/21 07/07/21 Previous Rx's Medication Instructions Recorded ondansetron 4 mg disintegrating 4 mg PO Q8H PRN #7 tab 09/24/20 tablet bupropion HCl 150 mg 24 hr tablet, 150 mg PO QAM #30 tab 01/24/21 extended release sertraline 100 mg tablet 150 mg PO QAM #60 tab 01/24/21 Allergies Allergy/AdvReac Type Severity Reaction Status Date / Time Sulfa (Sulfonamide Allergy Severe Swelling/Ed Unverified 07/08/21 11:07 Antibiotics) jostin General Stated Complaint: PsychEval ABA: 2 Review of Systems Unobtainable due to mental condition PFSH All Active Problems (Updated 07/08/21 @ 15:31 by Katheryn Kimball) Other social stressor (Acute) Homicidal ideation (Acute) Nausea (Acute) Agitation (Acute) Hemoptysis (Acute) Shingles (Acute) Rash (Acute) Rib pain (Acute) Thumb injury (Acute) Abnormal chest CT (Acute) GERD (gastroesophageal reflux disease) (Chronic) DVT prophylaxis (Acute) Hypercholesterolemia (Chronic) Suicidal thoughts (Acute) Suicidal ideations (Acute) Leukocytosis (Chronic) Tobacco abuse (Chronic) Suicidal ideation (Acute) Anxiety (Chronic) Hypothyroid (Chronic) Depression (Chronic) COPD (chronic obstructive pulmonary disease) (Chronic) Depression (Chronic) Bipolar disorder (Chronic) Discharge planning issues (Acute) Depression with suicidal ideation (Acute) Medical History Bipolar disorder Depressed Stress Suicidal thoughts Traumatic pneumothorax 2017, chest tube x2 Surgical History History of ankle surgery S/P thoracostomy tube placement Social History Smoking/Tobacco Use Status: Current every day Tobacco Type: cigarettes Smoking risk assessment performed?: Yes Alcohol Intake: never Drug use: Daily Substance use type: marijuana Current gender identity: male Do you feel safe at home: Yes Do you feel safe in your relationship?: Yes Additional Social history: Lives in a private apartment. Has [facility] case management Exam Narrative Exam Narrative: Constitutional: Alert and oriented x3. Appears stated age. Normal body habitus. Head: Normocephalic, no trauma. Eyes: Pupils PERRL, Red reflex noted, EOM's intact. Eyelids symmetrical without lesions, discharge, or swelling. ENT: Bilateral TM's WNL, External ear normal to inspection, no mastoid TTP, swelling, or erythema, Nasal turbinates WNL, no nasal discharge. Normal dentition, Posterior pharynx WNL, no exudate. Chest: RRR, Normal S1, S2, distal pulses intact. Resp: Lungs clear to auscultation bilaterally, no wheezes, rales, or rhonchi. Abdomen: Soft, non-distended, Normoactive bowel sounds all 4 quads. Musculoskeletal: Normal gait, 5/5 strength to all four extremities. Skin: No suspicious rashes or lesions. Capillary refill less than 2 sec. Neurologic: Cranial nerves II-XII intact. Alert and oriented x 3. Motor: No deficits noted. Sensory: Intact bilaterally all 4 extremities. Reflexes: DTR's intact bilaterally.. Hematologic/Lymphatic: No ecchymosis, no lymphadenopathy. Psych Appearance: disheveled Speech and Movement: agitated Mood: anxious mood and angry Affect: hostile and irritable affect Attitude: guarded and other (refusing vital signs, uncooperative) Thought Process: normal Thought Content: suicidality Insight: insight good Judgment: poor Course Vital Signs Vital signs: Respiratory Effort Non-Labored 07/08/21 11:08
--- NOTE | 2021-07-08 11:41 | NUR.NOTE ---
patient became increasingly aggitated when explaining of processs for mental health patients. Katheryn Kimball involved. Attempting to calm patient to obtain urine sample and lab work.
[2021-07-08 14:04] LABS: Abs Immature Grans 0.04 10^3/uL (0.0-0.06); Absolute Basophil Count 0.05 10^3/uL (0.0-0.2); Absolute Lymphocyte Count 1.93 10^3/uL (1.2-3.4); Absolute Monocyte Count 0.49 10^3/uL (0.1-0.8); Basophils % 0.4; Eosinophils % 0.8; HGB 14.8 g/dL (13.5-17.5); Immature Grans % 0.3; Lymphocytes % 16.4; MCH 25.8 pg (27.0-33.0); MCHC 32.2 % (32.0-36.0); MCV 80.1 fL (80-95); Monocytes % 4.2; Neutrophils % 77.9; Nucleated RBC 0 %; Platelet Count 242 10^3/uL (130-400); RBC 5.74 10^6/uL (4.36-5.78); RDW 14.1 % (11.8-14.1); RDW-SD 40.8 fL; WBC 11.77 10^3/uL (4.4-10.8)
[2021-07-08 14:10] LABS: Absolute Eosinophil Count 0.09 10^3/uL (0.0-0.7)
[2021-07-08 14:11] LABS: Absolute Neutrophil Count 9.17 10^3/uL (1.2-6.7)
[2021-07-08 14:23] LABS: Salicylate 4.8 mg/dL (<2.8)
[2021-07-08 14:24] LABS: Acetaminophen < 2 ug/mL (10-30)
[2021-07-08 14:28] LABS: ALT 25 U/L (16-63); AST 24 U/L (15-37); Albumin 3.9 g/dL (3.4-5.0); Alkaline Phosphatase 130 U/L (46-116); Anion Gap 8.2 mmol/L (3-11); BUN 17 mg/dL (7-18); Bilirubin, Total 0.3 mg/dL (0.2-1.0); CO2 24.8 mmol/L (21.0-32.0); CREATININE 0.9 mg/dL (0.70-1.30); Calcium 9.2 mg/dL (8.5-10.1); Chloride 102 mmol/L (98-107); ETHANOL BLOOD < 3.0 mg/dL (<10); Glucose 99 mg/dL (74-106); Potassium 4.2 mmol/L (3.5-5.1); Sodium 135 mmol/L (136-145); TSH (W/Ref FT4) 2.35 uIU/mL (0.36-3.74); Total Protein 8.3 g/dL (6.4-8.2)
[2021-07-08 14:58] LABS: Bilirubin Negative (Negative); Blood Negative (Negative); Clarity Clear (Clear); Glucose Negative (Negative); Ketones Negative (Negative); Leukocyte Esterase Negative (Negative); Nitrite Negative (Negative); Specific Gravity 1.015 (1.005-1.025); Urobilinogen 0.2 EU/dL (Up TO 0.2)
[2021-07-08 15:03] LABS: Source Nasal/Nares
[2021-07-08 15:11] LABS: *AMPHETAMINES SCREEN URINE Negative (Negative); *BARBITURATES SCREEN URINE Negative (Negative); *BENZODIAZEPINES SCREEN URINE Negative (Negative); Cannabinoids THC Positive (Negative); Cocaine Screen,Urine Negative (Negative); METHADONE URINE SCREEN Negative (Negative); OPIATES URINE SCREEN Negative (Negative)
[2021-07-08 15:12] LABS: Tricyclic Antidepressants Negative (Negative)
--- NOTE | 2021-07-08 15:14 | CMACTNOTE_ITS ---
- If Service Date Differs Date of service: 07/08/21 Time of Service: 15:14 Care Management Activity Note Asim presents in the ED for suicidal ideation after reportedly holding a knife to his neck and threatening to harm himself in the presence of [facility] staff who were at his home delivering medication. Asim is assessed by Maegan [facility] INSULATION MACHINE OPERATOR Lathe Set Up Person, and is found appropriate for a placement at the Care Bed. Asim will follow up with his PCP, [facility] providers, and plan of care upon discharge from the Care Bed. [facility] staff are transporting him from the hospital to the crisis bed via private vehicle.
--- NOTE | 2021-07-08 15:14 | PDOC.ERCMACT ---
- If Service Date Differs Date of service: 07/08/21 Time of Service: 15:14 Care Management Activity Note Asim presents in the ED for suicidal ideation after reportedly holding a knife to his neck and threatening to harm himself in the presence of [facility] staff who were at his home delivering medication. Asim is assessed by Maegan [facility] MANAGER PROPERTY Logistics Assistant, and is found appropriate for a placement at the Care Bed. Asim will follow up with his PCP, [facility] providers, and plan of care upon discharge from the Care Bed. [facility] staff are transporting him from the hospital to the crisis bed via private vehicle.
[2021-07-08 16:16] LABS: COVID-19 PCR Negative (Negative)
[2021-07-08 16:36] VITALS: BP 128/89; PULSE 85; RESP 18; O2SAT 96
== END 2021-07-08 16:31 | disposition designated cancer center or children's hospital (05) ==
PROVIDERS: Emergency Provider Registered Nurse Emergency; PCP Nurse Practitioner
DX: F32.9 Major depressive disorder, single episode, unspecified (principal); R45.851 Suicidal ideations
CPT/HCPCS: 36415; 80053; 80307; 87635; 99285; 80320; 80329; 81003; 84443; 85025

== ENCOUNTER 2021-07-10 14:14 | Emergency (ER) | payer MEDICAID, SELFPAY ==
[2021-07-10] VITALS (7 sets, daily range): BP systolic 104–122; BP diastolic 72–93; PULSE 79–94; RESP 16; TEMP 37.1; O2SAT 91–95
[2021-07-10] MEDS: Normal Saline 1,000 ML 1000 ML IV (14:37)
[2021-07-10] MEDS: Ondansetron 4 MG/2 ML VIAL IVP (14:37)
[2021-07-10 14:50] LABS: Abs Immature Grans 0.04 10^3/uL (0.0-0.06); Absolute Basophil Count 0.05 10^3/uL (0.0-0.2); Absolute Eosinophil Count 0.15 10^3/uL (0.0-0.7); Absolute Lymphocyte Count 2.18 10^3/uL (1.2-3.4); Absolute Neutrophil Count 9.66 10^3/uL (1.2-6.7); Basophils % 0.4; Eosinophils % 1.2; HCT 46.7 % (40.0-50.0); Immature Grans % 0.3; Lymphocytes % 17.2; MCH 25.8 pg (27.0-33.0); MCHC 32.1 % (32.0-36.0); MCV 80.4 fL (80-95); MPV 10.1 fL (8.0-11.0); Monocytes % 4.7; Neutrophils % 76.2; Nucleated RBC 0 %; Platelet Count 228 10^3/uL (130-400); RBC 5.81 10^6/uL (4.36-5.78); RDW 14.2 % (11.8-14.1); RDW-SD 41.2 fL; WBC 12.68 10^3/uL (4.4-10.8)
--- NOTE | 2021-07-10 14:51 | ED.GENADUL_ITS ---
Discharge Plan Disposition Patient Disposition: HOME Condition: Improving Discharge Details Clinical Impression: Nausea Primary Care Provider: Fariba Forde ED Provider: Jaime Ballard Home Meds and New Rx's Prescriptions: Continued omeprazole 20 MG capsule,delayed release(DR/EC) 20 mg PO QAM 0RF Label Comments: Pt states he does not know what his meds are - someone drops them off and he does not take them. States he flushes them down the toilet. magnesium oxide 400 mg (241.3 mg magnesium) tablet 400 mg PO QAM 0RF Label Comments: Pt states he does not know what his meds are - someone drops them off and he does not take them. States he flushes them down the toilet. sennosides [senna] 8.6 mg Tablet 8.6 mg PO BID PRN0RF Label Comments: Pt states he does not know what his meds are - someone drops them off and he does not take them. States he flushes them down the toilet. hydroxyzine pamoate [Vistaril] 25 mg Capsule 25 mg PO BID 0RF Label Comments: Pt states he does not know what his meds are - someone drops them off and he does not take them. States he flushes them down the toilet. ondansetron 4 mg tablet,disintegrating 4 mg PO Q8H PRN (Reason: nausea and vomiting) Qty: 7 0RF bupropion HCl 150 mg tablet extended release 24 hr 150 mg PO QAM Qty: 30 0RF sertraline 100 mg tablet 150 mg PO QAM Qty: 60 0RF trazodone 50 mg tablet 50 mg PO HS 0RF Label Comments: Pt states he does not know what his meds are - someone drops them off and he does not take them. States he flushes them down the toilet. olanzapine 5 mg tablet 5 mg PO QAM 0RF Label Comments: Pt states he does not know what his meds are - someone drops them off and he does not take them. States he flushes them down the toilet. melatonin 3 mg tablet 10 mg PO HS 0RF Label Comments: Pt states he does not know what his meds are - someone drops them off and he does not take them. States he flushes them down the toilet. Rx Instructions: Take 2 tablets by mouth at bedtime pravastatin 20 mg tablet 20 mg PO HS 0RF Label Comments: Pt states he does not know what his meds are - someone drops them off and he does not take them. States he flushes them down the toilet. gabapentin 300 mg capsule 300 mg PO .QHS 0RF Label Comments: Take 1 capsule by mouth at bedtime levothyroxine 100 mcg Tablet 100 mcg PO DAILY@0600 0RF Discharge Instructions Instructions: Acute Nausea and Vomiting (ED) Additional Instructions: Your laboratory values do not reveal any obvious emergent process. You responded well to the IV fluid and Zofran. Please watch for new or worsening symptoms and return to the ER for any concerns. Otherwise I recommend reaching out your primary care provider tomorrow to discuss your ER visit and need for outpatient reevaluation. Discharge Data Discharge Date/Time-TO BE ENTERED AT DEPARTURE: 07/10/21 15:42 Medical Decision Making This is a 55-year-old gentleman who is well-known to our ER presenting today reporting that he feels rundown, concern for dehydration, reports epistasis yesterday, acute on chronic hemoptysis as well as nausea. Clinically he appears well, nontoxic, hemodynamically stable. No active epistasis now. I do question if the hemoptysis that he experienced was secondary to the epistasis last night versus true hemoptysis from lung etiology. He denies any chest pain or shortness of breath whatsoever. He reports acute on chronic nausea but no vomiting although he does have decreased appetite and is concerned of dehydration, reports generalized weakness. Given these appear to be chronic issues, he appears clinically well, I do not believe initiating a cardiac work- up, CT of the chest, etc. is necessary. I would like to treat his symptoms with IV fluid and Zofran and obtain routine laboratory values to further assess for leukocytosis, anemia, electrolyte abnormality, renal insufficiency, thrombocytopenia, etc. Patient is comfortable with this plan and has no additional questions or concerns. He is resting comfortably, using his tablet without difficulty. Laboratory values reveal mild nonspecific leukocytosis of 12.6 a but reviewing his historical data, this seems to be at or near his baseline. No electrolyte abnormality. Renal function normal. Upon reevaluation patient reports feeling much improved with IV fluid and Zofran. No vomiting while under my care. He remains hemodynamically stable, lungs are clear to auscultation, and his O2 sats remained above 90% on room air. I have not appreciated any coughing fit or signs of hemoptysis and/or epistasis here during his ER observation. The patient has no additional questions or concerns and is comfortable discharge at this time. Standard discharge and return precautions were provided This documentation was generated using [email or web address] system, please disregard any oddities of phrase or misspellings. Medical Records Medical records reviewed: Yes I reviewed the patient's medical records. Lab Data Lab results reviewed: Yes I reviewed the patient's lab results. Labs: Laboratory Tests Range/Units 07/10/21 07/10/21 14:40 14:40 WBC (4.4-10.8) 10^3/uL 12.68 H RBC (4.36-5.78) 10^6/uL 5.81 H Hgb (13.5-17.5) g/dL 15.0 Hct (40.0-50.0) % 46.7 MCV (80-95) fL 80.4 MCH (27.0-33.0) pg 25.8 L MCHC (32.0-36.0) % 32.1 RDW (11.8-14.1) % 14.2 H Plt Count (130-400) 10^3/uL 228 MPV (8.0-11.0) fL 10.1 Immature Gran % 0.3 Neutrophils % 76.2 Lymphocytes % 17.2 Monocytes % 4.7 Eosinophils % 1.2 Basophils % 0.4 Nucleated RBC % % 0 Absolute Neutrophils (1.2-6.7) 10^3/uL 9.66 H Absolute Lymphocytes (1.2-3.4) 10^3/uL 2.18 Absolute Monocytes (0.1-0.8) 10^3/uL 0.60 Absolute Eosinophils (0.0-0.7) 10^3/uL 0.15 Absolute Basophils (0.0-0.2) 10^3/uL 0.05 Sodium (136-145) mmol/L 136 Potassium (3.5-5.1) mmol/L 4.0 Chloride (98-107) mmol/L 100 Carbon Dioxide (21.0-32.0) mmol/L 26.0 Anion Gap (3-11) mmol/L 10.0 BUN (7-18) mg/dL 15 Creatinine (0.70-1.30) mg/dL 1.0 Estimated GFR/1.73 m2 (mL/min/1.73m2) >= 60.00 Glucose (74-106) mg/dL 115 H Calcium (8.5-10.1) mg/dL 9.2 Total Bilirubin (0.2-1.0) mg/dL 0.4 AST (15-37) U/L 20 ALT (16-63) U/L 21 Alkaline Phosphatase (46-116) U/L 132 H Total Protein (6.4-8.2) g/dL 8.4 H Albumin (3.4-5.0) g/dL 4.0 HPI General Mode of arrival: EMS . Date/Time Provider Initiated Documentation: 07/10/21 14:24 . Limitations to Documentation: no limitations . Information obtained by: patient . HPI Narrative: This is a 55-year-old gentleman, past medical history of bipolar disorder, COPD, anxiety, hypothyroidism, reports a history of lung cancer deciding whether he is going to pursue therapy with oncology, presenting from care bed for evaluation stating that he had a nosebleed last night, it has resolved but then today coughed up a little bit of mucus with blood which is not really atypical for him. He reports chronic nausea that might be slightly worse today. Because of the nausea that he has not had much to eat or drink and is concerned of dehydration. He denies recent illness or trauma. Denies headache, fever, chest pain, shortness of breath, abdominal pain, vomiting, pain or swelling in his legs. The patient reports that since the lung cancer diagnosis he has occasionally had hemoptysis. He states I just feel rundown. Related Data Home Medications Medication Instructions Recorded Confirmed omeprazole 20 mg capsule,delayed 20 mg PO QA 10/16/13 07/10/21 release magnesium oxide 400 mg (241.3 mg 400 mg PO QAM 10/20/19 07/10/21 magnesium) tablet melatonin 3 mg tablet 10 mg PO 12/19/19 07/10/21 olanzapine 5 mg tablet 5 mg PO QA 12/19/19 07/10/21 pravastatin 20 mg tablet 20 mg PO 12/19/19 07/10/21 trazodone 50 mg tablet 50 mg PO 12/19/19 07/10/21 hydroxyzine pamoate 25 mg capsule 25 mg PO BID 04/05/20 07/10/21 (Vistaril) sennosides 8.6 mg tablet (senna) 8.6 mg PO BID PRN 04/05/20 07/10/21 ondansetron 4 mg disintegrating 4 mg PO Q8H PRN #7 tab 09/24/20 07/10/21 tablet gabapentin 300 mg capsule 300 mg PO .QHS 09/28/20 07/10/21 bupropion HCl 150 mg 24 hr tablet, 150 mg PO QAM #30 tab 01/24/21 07/10/21 extended release sertraline 100 mg tablet 150 mg PO QAM #60 tab 01/24/21 07/10/21 levothyroxine 100 mcg tablet 100 mcg PO DAILY@0600 03/31/21 07/10/21 Previous Rx's Medication Instructions Recorded ondansetron 4 mg disintegrating 4 mg PO Q8H PRN #7 tab 09/24/20 tablet bupropion HCl 150 mg 24 hr tablet, 150 mg PO QAM #30 tab 01/24/21 extended release sertraline 100 mg tablet 150 mg PO QAM #60 tab 01/24/21 Allergies Allergy/AdvReac Type Severity Reaction Status Date / Time Sulfa (Sulfonamide Allergy Severe Swelling/Ed Unverified 07/10/21 14:19 Antibiotics) jostin General Stated Complaint: Nausea/Vomit/Diar ABA: 3 Review of Systems Constitutional Constitutional: Reports fatigue, Denies fever(s) and Denies headache(s) ENT Ears, Nose, Mouth, and Throat: Denies headache(s) and Denies neck pain Cardiovascular Cardiovascular: Denies chest pain and Denies dyspnea Respiratory Respiratory: Reports cough and Denies dyspnea Gastrointestinal Gastrointestinal: Denies abdominal pain, Reports nausea and Denies vomiting Musculoskeletal Musculoskeletal: Denies back pain and Denies neck pain Integumentary/Breasts Skin/Breast: Denies rash Neurologic Neurologic: Denies headache(s) Psychiatric Psychiatric: Denies homicidal ideation and Denies suicidal ideation Endocrine Endocrine: Reports fatigue PFSH All Active Problems (Updated 07/10/21 @ 15:20 by RENAE Minaya) Nausea (Acute) Other social stressor (Acute) Homicidal ideation (Acute) Nausea (Acute) Agitation (Acute) Hemoptysis (Acute) Shingles (Acute) Rash (Acute) Rib pain (Acute) Thumb injury (Acute) Abnormal chest CT (Acute) GERD (gastroesophageal reflux disease) (Chronic) DVT prophylaxis (Acute) Hypercholesterolemia (Chronic) Suicidal thoughts (Acute) Suicidal ideations (Acute) Leukocytosis (Chronic) Tobacco abuse (Chronic) Suicidal ideation (Acute) Anxiety (Chronic) Hypothyroid (Chronic) Depression (Chronic) COPD (chronic obstructive pulmonary disease) (Chronic) Depression (Chronic) Bipolar disorder (Chronic) Discharge planning issues (Acute) Depression with suicidal ideation (Acute) Medical History Bipolar disorder Depressed Stress Suicidal thoughts Traumatic pneumothorax 2017, chest tube x2 Surgical History History of ankle surgery S/P thoracostomy tube placement Social History Smoking/Tobacco Use Status: Current every day Tobacco Type: cigarettes Smoking risk assessment performed?: Yes Alcohol Intake: never Drug use: Daily Substance use type: marijuana Current gender identity: male Do you feel safe at home: Yes Do you feel safe in your relationship?: Yes Additional Social history: Lives in a private apartment. Has [facility] case management Exam Const General: cooperative, healthy appearing, comfortable and no acute distress Orientation: alert and awake [facility] Head: normal to inspection, normocephalic and atraumatic General nose exam: nares normal, nasal mucous membranes and turbinates normal, n o nasal discharge and no epistaxis Face and sinus: normal facial exam Mouth: moist mucous membranes Throat: posterior oropharynx normal Eyes Conjunctivae: conjunctivae normal Neck Neck: normal visual inspection, trachea midline and supple Resp Effort & Inspection: normal respiratory effort and able to speak in complete sentences Auscultation: clear to auscultation bilaterally Cardio Rate: regular rate Rhythm: regular rhythm GI Palpation: soft and nontender Back/Spine/Pelvis Back: No back tenderness Skin General skin exam: no rashes or lesions noted Neuro General: patient alert, patient awake, patient oriented x3, moves all extremities and no focal motor deficits Cognition: normal cognition Speech: speech normal Gait: normal gait Sensory Exam: no sensory deficits noted Extrem General: normal to inspection, full ROM, capillary refill normal, no pedal edema and no calf tenderness Psych Appearance: grossly normal Mental Status: mental status grossly normal Speech and Movement: speech and movement normal Mood: congruent mood Affect: normal affect Attitude: cooperative Thought Process: normal Thought Content: normal, no homicidality and suicidality Insight: fair Judgment: fair Course Vital Signs Vital signs: Vital Signs Temperature 37.1 C 07/10/21 14:13 Pulse 94 H 07/10/21 14:13 Respiratory Rate 16 07/10/21 14:13 Blood Pressure 122/83 07/10/21 14:13 Pulse Oximetry 95 07/10/21 14:13 Temperature 37.1 C 07/10/21 14:13 Temperature Source Skin 07/10/21 14:13 Pulse 94 H 07/10/21 14:13 Respiratory Rate 16 07/10/21 14:13 Respiratory Effort 07/10/21 14:13 Blood Pressure 122/83 07/10/21 14:13 Pulse Oximetry 95 07/10/21 14:13 Oxygen Delivery Method Room Air 07/10/21 14:13 Oxygen Flow Rate 0 07/10/21 14:13 Pain Level 0 07/10/21 14:37
[2021-07-10 15:04] LABS: ALT 21 U/L (16-63); AST 20 U/L (15-37); Alkaline Phosphatase 132 U/L (46-116); BUN 15 mg/dL (7-18); Bilirubin, Total 0.4 mg/dL (0.2-1.0); Calcium 9.2 mg/dL (8.5-10.1); Chloride 100 mmol/L (98-107); Glucose 115 mg/dL (74-106); Sodium 136 mmol/L (136-145); Total Protein 8.4 g/dL (6.4-8.2)
== END 2021-07-10 15:42 | disposition home or self-care (01) ==
PROVIDERS: Emergency Provider Physician Assistant; PCP Nurse Practitioner
DX: R11.0 Nausea (principal); R53.83 Other fatigue
CPT/HCPCS: 36415; 80053; 96361; 96374; 99284; 85025; 99283; J2405

== ENCOUNTER 2021-08-26 12:18 | Emergency (ER) | payer MEDICAID, SELFPAY ==
[2021-08-26 13:10] VITALS: BP 123/82; PULSE 88; RESP 17; TEMP 36.8; O2SAT 93
--- NOTE | 2021-08-26 13:33 | NUR.NOTE ---
Pt disclosed to this nurse that he has a suicide plan. His plan is to take the weekend supply of pills (that are dropped off by mental health counselor each weekend) and slit his wrists afterwards. Pt states that he would do this if he were at home right now.
--- NOTE | 2021-09-01 21:28 | ED.GENADUL_ITS ---
Discharge Plan Disposition Patient Disposition: OTHER Condition: Stable Discharge Details Chief Complaint: PsychEval Clinical Impression: Patient left without being seen Primary Care Provider: Fariba Forde ED Provider: Provider,Temporary Home Meds and New Rx's Prescriptions: No Action omeprazole 20 MG capsule,delayed release(DR/EC) 20 mg PO QAM 0RF Label Comments: Pt states he does not know what his meds are - someone drops them off and he does not take them. States he flushes them down the toilet. magnesium oxide 400 mg (241.3 mg magnesium) tablet 400 mg PO QAM 0RF Label Comments: Pt states he does not know what his meds are - someone drops them off and he does not take them. States he flushes them down the toilet. sennosides [senna] 8.6 mg Tablet 8.6 mg PO BID PRN0RF Label Comments: Pt states he does not know what his meds are - someone drops them off and he does not take them. States he flushes them down the toilet. hydroxyzine pamoate [Vistaril] 25 mg Capsule 25 mg PO BID 0RF Label Comments: Pt states he does not know what his meds are - someone drops them off and he does not take them. States he flushes them down the toilet. ondansetron 4 mg tablet,disintegrating 4 mg PO Q8H PRN (Reason: nausea and vomiting) Qty: 7 0RF bupropion HCl 150 mg tablet extended release 24 hr 150 mg PO QAM Qty: 30 0RF sertraline 100 mg tablet 150 mg PO QAM Qty: 60 0RF trazodone 50 mg tablet 50 mg PO HS 0RF Label Comments: Pt states he does not know what his meds are - someone drops them off and he does not take them. States he flushes them down the toilet. olanzapine 5 mg tablet 5 mg PO QAM 0RF Label Comments: Pt states he does not know what his meds are - someone drops them off and he does not take them. States he flushes them down the toilet. melatonin 3 mg tablet 10 mg PO HS 0RF Label Comments: Pt states he does not know what his meds are - someone drops them off and he does not take them. States he flushes them down the toilet. Rx Instructions: Take 2 tablets by mouth at bedtime pravastatin 20 mg tablet 20 mg PO HS 0RF Label Comments: Pt states he does not know what his meds are - someone drops them off and he does not take them. States he flushes them down the toilet. gabapentin 300 mg capsule 300 mg PO .QHS 0RF Label Comments: Take 1 capsule by mouth at bedtime levothyroxine 100 mcg Tablet 100 mcg PO DAILY@0600 0RF Discharge Data Discharge Date/Time-TO BE ENTERED AT DEPARTURE: 08/26/21 13:47 Medical Decision Making Patient presented to the ED for complaint of feeling suicidal. It was reported that patient presented with [facility] to the ED and after arrival [facility] and patient decided on a alternative plan and he left before being seen. Patient not seen or examined by me. HPI Related Data Home Medications Medication Instructions Recorded Confirmed omeprazole 20 mg capsule,delayed 20 mg PO QAM 10/16/13 07/10/21 release magnesium oxide 400 mg (241.3 mg 400 mg PO QAM 10/20/19 07/10/21 magnesium) tablet melatonin 3 mg tablet 10 mg PO HS 12/19/19 07/10/21 olanzapine 5 mg tablet 5 mg PO QAM 12/19/19 07/10/21 pravastatin 20 mg tablet 20 mg PO HS 12/19/19 07/10/21 trazodone 50 mg tablet 50 mg PO HS 12/19/19 07/10/21 hydroxyzine pamoate 25 mg capsule 25 mg PO BID 04/05/20 07/10/21 (Vistaril) sennosides 8.6 mg tablet (senna) 8.6 mg PO BID PRN 04/05/20 07/10/21 ondansetron 4 mg disintegrating 4 mg PO Q8H PRN #7 tab 09/24/20 07/10/21 tablet gabapentin 300 mg capsule 300 mg PO .QHS 09/28/20 07/10/21 bupropion HCl 150 mg 24 hr tablet, 150 mg PO QAM #30 tab 01/24/21 07/10/21 extended release sertraline 100 mg tablet 150 mg PO QAM #60 tab 01/24/21 07/10/21 levothyroxine 100 mcg tablet 100 mcg PO DAILY@0600 03/31/21 07/10/21 Previous Rx's Medication Instructions Recorded ondansetron 4 mg disintegrating 4 mg PO Q8H PRN #7 tab 09/24/20 tablet bupropion HCl 150 mg 24 hr tablet, 150 mg PO QAM #30 tab 01/24/21 extended release sertraline 100 mg tablet 150 mg PO QAM #60 tab 01/24/21 Allergies Allergy/AdvReac Type Severity Reaction Status Date / Time Sulfa (Sulfonamide Allergy Severe Swelling/Ed Unverified 07/10/21 14:19 Antibiotics) jostin General Stated Complaint: PsychEval ABA: 2 PFSH All Active Problems (Updated 09/01/21 @ 21:32 by Rani Huffman DO) Patient left without being seen (Acute) Other social stressor (Acute) Homicidal ideation (Acute) Nausea (Acute) Agitation (Acute) Hemoptysis (Acute) Shingles (Acute) Rash (Acute) Rib pain (Acute) Thumb injury (Acute) Abnormal chest CT (Acute) GERD (gastroesophageal reflux disease) (Chronic) DVT prophylaxis (Acute) Hypercholesterolemia (Chronic) Suicidal thoughts (Acute) Suicidal ideations (Acute) Leukocytosis (Chronic) Tobacco abuse (Chronic) Suicidal ideation (Acute) Anxiety (Chronic) Hypothyroid (Chronic) Depression (Chronic) COPD (chronic obstructive pulmonary disease) (Chronic) Depression (Chronic) Bipolar disorder (Chronic) Discharge planning issues (Acute) Depression with suicidal ideation (Acute) Medical History Bipolar disorder Depressed Stress Suicidal thoughts Traumatic pneumothorax 2017, chest tube x2 Surgical History History of ankle surgery S/P thoracostomy tube placement Social History Smoking/Tobacco Use Status: Current every day Tobacco Type: cigarettes Smoking risk assessment performed?: Yes Alcohol Intake: never Drug use: Daily Substance use type: marijuana Current gender identity: male Do you feel safe at home: No (downstairs neighbors) Do you feel safe in your relationship?: Yes Additional Social history: Lives in a private apartment. Has [facility] case management Course Vital Signs Vital signs: Vital Signs Temperature 98.3 F 08/26/21 13:10 Pulse 88 08/26/21 13:10 Respiratory Rate 17 08/26/21 13:10 Blood Pressure 123/82 08/26/21 13:10 Pulse Oximetry 93 08/26/21 13:10 Temperature 98.3 F 08/26/21 13:10 Temperature Source Oral 08/26/21 13:10 Pulse 88 08/26/21 13:10 Respiratory Rate 17 08/26/21 13:10 Respiratory Effort 08/26/21 13:25 Blood Pressure 123/82 08/26/21 13:10 Pulse Oximetry 93 08/26/21 13:10 Oxygen Delivery Method Room Air 08/26/21 13:10 Oxygen Flow Rate 0 08/26/21 13:10
== END 2021-08-26 13:47 | disposition other institution (70) ==
PROVIDERS: PCP Nurse Practitioner
DX: Z53.21 Procedure and treatment not carried out due to patient leaving prior to being seen by health care provider (principal)

== ENCOUNTER 2021-09-01 21:13 | Outpatient (REF) | payer MEDICAID, SELFPAY ==
[2021-09-01 22:24] LABS: Abs Immature Grans 0.03 10^3/uL (0.0-0.06); Absolute Basophil Count 0.08 10^3/uL (0.0-0.2); Absolute Eosinophil Count 0.17 10^3/uL (0.0-0.7); Absolute Lymphocyte Count 2.41 10^3/uL (1.2-3.4); Absolute Monocyte Count 0.91 10^3/uL (0.1-0.8); Absolute Neutrophil Count 7.52 10^3/uL (1.2-6.7); Basophils % 0.7; Eosinophils % 1.5; HGB 14.8 g/dL (13.5-17.5); Immature Grans % 0.3; Lymphocytes % 21.7; MCH 25.4 pg (27.0-33.0); MCHC 32.2 % (32.0-36.0); MPV 10.7 fL (8.0-11.0); Monocytes % 8.2; Neutrophils % 67.6; Platelet Count 236 10^3/uL (130-400); RBC 5.82 10^6/uL (4.36-5.78); RDW 14.6 % (11.8-14.1); WBC 11.12 10^3/uL (4.4-10.8)
[2021-09-01 22:37] LABS: ALT 27 U/L (16-63); AST 22 U/L (15-37); Alkaline Phosphatase 131 U/L (46-116); Anion Gap 10.4 mmol/L (3-11); BUN 20 mg/dL (7-18); Bilirubin, Total 0.4 mg/dL (0.2-1.0); CO2 25.6 mmol/L (21.0-32.0); Calcium 8.9 mg/dL (8.5-10.1); Chloride 101 mmol/L (98-107); Glucose 99 mg/dL (74-106); Potassium 4.1 mmol/L (3.5-5.1); Sodium 137 mmol/L (136-145); Total Protein 7.8 g/dL (6.4-8.2)
[2021-09-03 10:50] LABS: COVID-19 RT-PCR UVMMC Result Negative (Negative)
== END 2021-09-01 21:14 | disposition home or self-care (01) ==
LOC: LBN 21:13
PROVIDERS: PCP Nurse Practitioner; Visit Provider Physician Assistant Medical
DX: R35.0 Frequency of micturition (principal); K63.9 Disease of intestine, unspecified; Z20.822 Contact with and (suspected) exposure to COVID-19
CPT/HCPCS: 80053; U0003; 85025

== ENCOUNTER 2021-09-20 17:13 | Emergency (ER) | payer MEDICAID, SELFPAY ==
[2021-09-20 17:13] VITALS: BP 159/103; PULSE 95; TEMP 37.2; O2SAT 95
--- NOTE | 2021-09-20 17:54 | ED.GENADUL_ITS ---
Discharge Plan Disposition Patient Disposition: HOME Condition: Stable Discharge Details Clinical Impression: Bipolar disorder Primary Care Provider: Fariba Forde ED Provider: Jaime Ballard Home Meds and New Rx's Prescriptions: Continued omeprazole 20 MG capsule,delayed release(DR/EC) 20 mg PO QAM 0RF Label Comments: Pt states he does not know what his meds are - someone drops them off and he does not take them. States he flushes them down the toilet. magnesium oxide 400 mg (241.3 mg magnesium) tablet 400 mg PO QAM 0RF Label Comments: Pt states he does not know what his meds are - someone drops them off and he does not take them. States he flushes them down the toilet. sennosides [senna] 8.6 mg Tablet 8.6 mg PO BID PRN0RF Label Comments: Pt states he does not know what his meds are - someone drops them off and he does not take them. States he flushes them down the toilet. hydroxyzine pamoate [Vistaril] 25 mg Capsule 25 mg PO BID 0RF Label Comments: Pt states he does not know what his meds are - someone drops them off and he does not take them. States he flushes them down the toilet. bupropion HCl 150 mg tablet extended release 24 hr 150 mg PO QAM Qty: 30 0RF trazodone 50 mg tablet 50 mg PO HS 0RF Label Comments: Pt states he does not know what his meds are - someone drops them off and he does not take them. States he flushes them down the toilet. olanzapine 5 mg tablet 7.5 mg PO QAM 0RF Label Comments: Pt states he does not know what his meds are - someone drops them off and he does not take them. States he flushes them down the toilet. melatonin 3 mg tablet 10 mg PO HS 0RF Label Comments: Pt states he does not know what his meds are - someone drops them off and he does not take them. States he flushes them down the toilet. Rx Instructions: Take 2 tablets by mouth at bedtime pravastatin 20 mg tablet 20 mg PO HS 0RF Label Comments: Pt states he does not know what his meds are - someone drops them off and he does not take them. States he flushes them down the toilet. gabapentin 300 mg capsule 300 mg PO .QHS 0RF Label Comments: Take 1 capsule by mouth at bedtime levothyroxine 100 mcg Tablet 100 mcg PO DAILY@0600 0RF sertraline 100 mg tablet 100 mg PO QAM 0RF Discharge Instructions Instructions: Bipolar Disorder (ED) Additional Instructions: Please follow the instructions given to you by the mental health team. Your [facility] team should be contacting you around 9 PM this evening and then [facility] services should be reaching out to you again in the morning. Please watch for new or worsening symptoms and return to the ER for any concerns. Discharge Data Discharge Date/Time-TO BE ENTERED AT DEPARTURE: 09/20/21 19:10 Medical Decision Making 55-year-old gentleman presents requesting a mental health evaluation for acute on chronic SI with no specific plan, not caring if he lives, and anger toward the assistant district attorney. Patient does not necessarily believe that he will require inpatient hospitalization. He has no acute medical concerns or complaints. Given this, I will not reflexively obtain laboratory values and instead will request a mental health evaluation, CPSO, and interim safety plan. Mental health evaluation completed, please see their note. In short, plan is for the patient to be discharged home this evening, they will have the CRRT reach out to the patient this evening at 9 PM and then [facility] services will reach out to the patient tomorrow morning to check in. This plan was discussed with patient and he is comfortable with this plan. Strict discharge and return precautions were provided. Patient understands, is agreeable to this plan, and has no additional questions or concerns upon discharge. This documentation was generated using [employer] system, please disregard any oddities of phrase or misspellings. Medical Records Medical records reviewed: Yes I reviewed the patient's medical records. HPI General Mode of arrival: EMS . Date/Time Provider Initiated Documentation: 09/20/21 17:24 . Limitations to Documentation: no limitations . Information obtained by: patient and EMS . HPI Narrative: This is a 55-year-old gentleman, past medical history that includes bipolar disorder, depression, COPD, hypothyroidism, anxiety, presenting to the ER via EMS for acute on chronic SI without a plan that was made worse today because of legal issues. Patient states that the assistant district attorney is trying to make a point of his case and ruin my life. He states that he sees the assistant district attorney as a threat and he will neutralize a threat if need be. He is a rather vague and elusive historian and will not admit to any active homicidal ideations, suicidal plan, but does state that he does not care if he lives or not. He has no acute medical concerns or complaints this evening. Denies recent illness or trauma. Reports that he has been taking all of his medications as directed. Denies any drug use. Related Data Home Medications Medication Instructions Recorded Confirmed omeprazole 20 mg capsule,delayed 20 mg PO QAM 10/16/13 09/20/21 release magnesium oxide 400 mg (241.3 mg 400 mg PO QAM 10/20/19 09/20/21 magnesium) tablet melatonin 3 mg tablet 10 mg PO HS 12/19/19 09/20/21 olanzapine 5 mg tablet 7.5 mg PO QAM 12/19/19 09/20/21 pravastatin 20 mg tablet 20 mg PO HS 12/19/19 09/20/21 trazodone 50 mg tablet 50 mg PO HS 12/19/19 09/20/21 hydroxyzine pamoate 25 mg capsule 25 mg PO BID 04/05/20 09/20/21 (Vistaril) sennosides 8.6 mg tablet (senna) 8.6 mg PO BID PRN 04/05/20 09/20/21 gabapentin 300 mg capsule 300 mg PO .QHS 09/28/20 09/20/21 bupropion HCl 150 mg 24 hr tablet, 150 mg PO QAM #30 tab 01/24/21 09/20/21 extended release levothyroxine 100 mcg tablet 100 mcg PO DAILY@0600 03/31/21 09/20/21 sertraline 100 mg tablet 100 mg PO QAM 09/20/21 09/20/21 Previous Rx's Medication Instructions Recorded bupropion HCl 150 mg 24 hr tablet, 150 mg PO QAM #30 tab 01/24/21 extended release Allergies Allergy/AdvReac Type Severity Reaction Status Date / Time Sulfa (Sulfonamide Allergy Severe Swelling/Ed Unverified 09/20/21 17:21 Antibiotics) jostin General Stated Complaint: PsychEval ABA: 2 Review of Systems Constitutional Constitutional: Denies fever(s), Denies headache(s) and Denies weakness ENT Ears, Nose, Mouth, and Throat: Denies headache(s) Cardiovascular Cardiovascular: Denies chest pain and Denies dyspnea Respiratory Respiratory: Reports cough (Chronic) and Denies dyspnea Gastrointestinal Gastrointestinal: Denies abdominal pain, Denies nausea and Denies vomiting Musculoskeletal Musculoskeletal: Denies back pain and Denies tingling Integumentary/Breasts Skin/Breast: Denies rash Neurologic Neurologic: Denies headache(s), Denies tingling and Denies weakness Psychiatric Psychiatric: Reports anxiety, Reports depression, Denies homicidal ideation and Reports suicidal ideation (Vague, no plan) [facility] All Active Problems Patient left without being seen (Acute) Other social stressor (Acute) Homicidal ideation (Acute) Nausea (Acute) Agitation (Acute) Hemoptysis (Acute) Shingles (Acute) Rash (Acute) Rib pain (Acute) Thumb injury (Acute) Abnormal chest CT (Acute) GERD (gastroesophageal reflux disease) (Chronic) DVT prophylaxis (Acute) Hypercholesterolemia (Chronic) Suicidal thoughts (Acute) Suicidal ideations (Acute) Leukocytosis (Chronic) Tobacco abuse (Chronic) Suicidal ideation (Acute) Anxiety (Chronic) Hypothyroid (Chronic) Depression (Chronic) COPD (chronic obstructive pulmonary disease) (Chronic) Depression (Chronic) Bipolar disorder (Chronic) Discharge planning issues (Acute) Depression with suicidal ideation (Acute) Medical History Bipolar disorder Depressed Stress Suicidal thoughts Traumatic pneumothorax 2017, chest tube x2 Surgical History History of ankle surgery S/P thoracostomy tube placement Social History Smoking/Tobacco Use Status: Current every day Tobacco Type: cigarettes Smoking risk assessment performed?: Yes Alcohol Intake: never Drug use: Daily Substance use type: marijuana Current gender identity: male Do you feel safe at home: No (downstairs neighbors) Do you feel safe in your relationship?: Yes Additional Social history: Lives in a private apartment. Has [facility] case management Exam Const General: cooperative, healthy appearing, comfortable and no acute distress Orientation: alert, awake and oriented x3 HENMT Head: normal to inspection, normocephalic and atraumatic Face and sinus: normal facial exam Mouth: moist mucous membranes Eyes General: appearance normal, both eyes and all related structures Conjunctivae: conjunctivae normal Neck Neck: normal visual inspection, full ROM, trachea midline and supple Resp Effort & Inspection: normal respiratory effort and able to speak in complete sentences Auscultation: clear to auscultation bilaterally Cardio Rate: regular rate Rhythm: regular rhythm GI Palpation: soft and nontender Back/Spine/Pelvis Back: No back tenderness Skin Rashes: no rashes Neuro General: patient alert, patient awake, moves all extremities and no focal motor deficits Sensory Exam: no sensory deficits noted Psych Appearance: grossly normal Mental Status: mental status grossly normal Speech and Movement: agitated Mood: angry Affect: irritable affect Attitude: cooperative Thought Process: normal Thought Content: suicidality (Vague, no plan) Insight: fair Judgment: fair Course Vital Signs Vital signs: Vital Signs Temperature 37.2 C 09/20/21 17:13 Pulse 95 H 09/20/21 17:13 Blood Pressure 159/103 H 09/20/21 17:13 Pulse Oximetry 95 09/20/21 17:13 Temperature 37.2 C 09/20/21 17:13 Temperature Source Oral 09/20/21 17:13 Pulse 95 H 09/20/21 17:13 Respiratory Effort Non-Labored 09/20/21 17:20 Blood Pressure 159/103 H 09/20/21 17:13 Pulse Oximetry 95 09/20/21 17:13 Oxygen Delivery Method Room Air 09/20/21 17:13 Oxygen Flow Rate 0 09/20/21 17:13 Pain Level 0 09/20/21 17:13
--- NOTE | 2021-09-20 19:59 | PDOC.MHCN_ITS ---
Date of service: 09/20/21 Time of Service: 17:45 Mental Health Crisis Note Presenting Issue How did you arrive at the ED and why did you come: Client arrived via ambulance for SI. Precipitating Factors Client endorses SI with no plan. Disposition BEHAVIOR: Angry, sad. EYE CONTACT: Good. MOOD: Pissed off at everything AFFECT: Normal. APPETITE: Reports he has not eaten in 3 days. SLEEP(trouble falling/staying asleep: Reports he has not slept in 3 days. Plan Client will go home. [facility] will reachout via phone this evening. Signature Clinician's Name/Title: CLAU Trinidad
== END 2021-09-20 18:50 | disposition home or self-care (01) ==
LOC: ER 18:59
PROVIDERS: Emergency Provider Physician Assistant; PCP Nurse Practitioner
DX: F31.9 Bipolar disorder, unspecified (principal); R45.851 Suicidal ideations
CPT/HCPCS: 99285; 99283

== ENCOUNTER 2021-09-22 22:16 | Observation (INO) | payer MEDICAID, SELFPAY ==
[2021-09-22 22:14] VITALS: BP 168/96; PULSE 95; RESP 18; TEMP 36.6; O2SAT 97
[2021-09-22 23:15] LABS: Source Nasal/Nares
--- NOTE | 2021-09-22 23:31 | NUR.NOTE ---
per pt is not suicidal and does not require 1:1 observation.
[2021-09-22 23:52] LABS: COVID-19 PCR Negative (Negative)
--- NOTE | 2021-09-23 00:05 | PDOC.MHCN_ITS ---
Date of service: 09/23/21 Time of Service: 00:05 Mental Health Crisis Note Presenting Issue How did you arrive at the ED and why did you come: Pt arrived via [facility] after he was evaluated by [facility]'s Tamie Mccord and could not come to any safety plan with her. Pt is feeling like he cannot keep himself safe. Precipitating Factors Pt reported that he burned himself and has been picking at that wound for awhile now. He also reported that he is sos done with the neighbors mistreating their kids and animals that he will do something to them to let them know that I am the [place] in this neighborhood. Disposition BEHAVIOR: Pt is dealing with a great deal of stress lately relating to his medical and legal issues and as a result is supper anxious about what is to come despite his recognition of such I don't care. He has a history of upinging his plan to make sure that people know he is serious and this has resulted in medical complications for her and others. EYE CONTACT: not assessed a the interaction was via phone. MOOD: anger, sad and irritable. AFFECT: Not assessed as assessment was done via phone. APPETITE: Pt reported this has decreased. SLEEP(trouble falling/staying asleep: Pt reported this has decreased. Plan Pt decide he needed a stay at [facility] and would not agree to any other options. Dr. Majano was able to discuss other options with the Pt and he was agreeable to going home. However, looking in his chart on 09.23.2021 it appeared he was admitted to the observation unit. CARBOY FILLER or this clinician will outreach to Pt on 09.23.2021. Signature Clinician's Name/Title: Tamie Mccord MS, [facility] Emergency Services Clinician, [facility]
--- NOTE | 2021-09-23 00:13 | W.ED.GENAD ---
Discharge Plan Disposition Patient Disposition: STILL A PATIENT Condition: Stable Discharge Details Chief Complaint: PsychEval Clinical Impression: Depression Admit Date/Time: 09/23/21 00:23 Admit Provider: Chung Pérez Attending Provider: Chung Pérez Primary Care Provider: Fariba Forde ED Provider: Francisco Majano Discharge Instructions Activity:: Activity as Tolerated Equipment/Supplies:: No Equipment Needed Diet:: As Tolerated Discharge Orders Discharge Orders: Discharge Order (Routine); Ordered 09/23/21 Ordered By: Latesha Salinas Discharge Data Discharge Date/Time-TO BE ENTERED AT DEPARTURE: 09/23/21 01:10 Medical Decision Making 55-year-old male well-known to the emergency department here with suicidality. Care plan established. Patient medically screened and no acute medical condition identified. HPI General Mode of arrival: ambulatory. Date/Time Provider Initiated Documentation: 09/22/21 22:44. Limitations to Documentation: no limitations. Information obtained by: patient. HPI Narrative: 55-year-old male with history of depression, bipolar disorder, prior suicidal ideation, anxiety disorder, well-known to the emergency department with frequent visits for psychiatric diagnosis, depression here today with depression. Patient notes he does not know safe at home Related Data Home Medications Medication Instructions Recorded Confirmed omeprazole 20 mg capsule,delayed 20 mg PO QAM 10/16/13 09/23/21 release magnesium oxide 400 mg (241.3 mg 400 mg PO QAM 10/20/19 09/23/21 magnesium) tablet melatonin 3 mg tablet 10 mg PO HS 12/19/19 09/23/21 olanzapine 5 mg tablet 7.5 mg PO QAM 12/19/19 09/23/21 pravastatin 20 mg tablet 20 mg PO HS 12/19/19 09/23/21 trazodone 50 mg tablet 50 mg PO HS 12/19/19 09/23/21 hydroxyzine pamoate 25 mg capsule 25 mg PO BID 04/05/20 09/23/21 (Vistaril) sennosides 8.6 mg tablet (senna) 8.6 mg PO BID PRN 04/05/20 09/23/21 gabapentin 300 mg capsule 300 mg PO .QHS 09/28/20 09/23/21 bupropion HCl 150 mg 24 hr tablet, 150 mg PO QAM #30 tabs 01/24/21 09/23/21 extended release levothyroxine 100 mcg tablet 100 mcg PO DAILY@0600 03/31/21 09/23/21 sertraline 100 mg tablet 100 mg PO QAM 09/20/21 09/23/21 Previous Rx's Medication Instructions Recorded bupropion HCl 150 mg 24 hr tablet, 150 mg PO QAM #30 tabs 01/24/21 extended release Allergies Allergy/AdvReac Type Severity Reaction Status Date / Time Sulfa (Sulfonamide Allergy Severe Swelling/Ed Unverified 09/23/21 00:51 Antibiotics) jostin General Stated Complaint: PsychEval ABA: 2 Review of Systems All systems reviewed & are unremarkable except as noted in HPI and below Constitutional Constitutional: Denies fever(s) Psychiatric Psychiatric: Reports as per HPI PFSH All Active Problems (Updated 10/03/21 @ 11:16 by Francisco Majano MD) Depression (Chronic) Other social stressor (Acute) Homicidal ideation (Acute) Nausea (Acute) Agitation (Acute) Hemoptysis (Acute) Shingles (Acute) Rash (Acute) Rib pain (Acute) Thumb injury (Acute) Abnormal chest CT (Acute) GERD (gastroesophageal reflux disease) (Chronic) DVT prophylaxis (Acute) Hypercholesterolemia (Chronic) Suicidal thoughts (Acute) Leukocytosis (Chronic) Tobacco abuse (Chronic) Suicidal ideation (Acute) Anxiety (Chronic) Hypothyroid (Chronic) Depression (Chronic) COPD (chronic obstructive pulmonary disease) (Chronic) Depression (Chronic) Bipolar disorder (Chronic) Discharge planning issues (Acute) Depression with suicidal ideation (Acute) Medical History Bipolar disorder Depressed Stress Suicidal thoughts Traumatic pneumothorax 2017, chest tube x2 Surgical History History of ankle surgery S/P thoracostomy tube placement Social History Smoking/Tobacco Use Status: Current every day Tobacco Type: cigarettes Smoking risk assessment performed?: Yes Alcohol Intake: never Drug use: Daily Substance use type: marijuana Current gender identity: male Do you feel safe at home: No (downstairs neighbors) Do you feel safe in your relationship?: Yes Additional Social history: Lives in a private apartment. Has [facility] case management Exam Const General: cooperative [facility] Head: normocephalic and atraumatic Mouth: moist mucous membranes Eyes Conjunctivae: normal conjunctivae Sclera: normal sclerae Resp Auscultation: clear to auscultation bilaterally, no rales, no rhonchi and no wheezes Cardio Rate: regular rate and not tachycardic Rhythm: regular rhythm GI Palpation: soft, not firm, no guarding, no masses, not rigid and nontender Skin General skin exam: no rashes or lesions noted Neuro General: patient alert, patient awake, patient oriented x3 and tone normal Extrem General: no edema Psych Appearance: grossly normal Mental Status: mental status grossly normal and other (depressed) Speech and Movement: speech and movement normal Mood: other (depressed) Affect: normal affect Thought Content: suicidality Course Vital Signs Vital signs: Vital Signs Temperature 36.6 C 09/22/21 22:14 Pulse 95 H 09/22/21 22:14 Respiratory Rate 18 09/22/21 22:14 Blood Pressure 168/96 H 09/22/21 22:14 Pulse Oximetry 97 09/22/21 22:14 Temperature 36.6 C 09/22/21 22:14 Temperature Source Temporal Artery Scan 09/22/21 22:14 Pulse 95 H 09/22/21 22:14 Respiratory Rate 18 09/22/21 22:14 Respiratory Effort 09/22/21 22:20 Blood Pressure 168/96 H 09/22/21 22:14 Pulse Oximetry 97 09/22/21 22:14 Pain Level 4 09/22/21 22:14 Lab/Test Results Lab/Test Results: Laboratory Tests Range/Units 09/22/21 23:11 COVID-19 Source Nasal/Nares SARS-CoV-2 (PCR) (Negative) Negative
[2021-09-23 01:00] VITALS: BP 138/72; PULSE 80; RESP 14; TEMP 36.8; O2SAT 96
[2021-09-23] MEDS: hydrOXYzine PAMOATE 25 MG CAP PO (08:52)
[2021-09-23] MEDS: buPROPion-XL 150 MG TABCR PO (08:52)
[2021-09-23] MEDS: Magnesium Oxide 400 MG TAB PO (08:52)
[2021-09-23] MEDS: OLANZapine 5 MG TAB 7.5 MG PO (08:52)
[2021-09-23] MEDS: Omeprazole 20 MG CAPCR PO (08:53)
[2021-09-23] MEDS: Sertraline 100 MG TAB PO (08:53)
[2021-09-23 09:47] VITALS: BP 118/89; PULSE 103; RESP 17; TEMP 36.3; O2SAT 94
--- NOTE | 2021-09-23 10:02 | W.PM.HP.N ---
Assessment and Plan Assessment and plan (1) Suicidal ideations: Status: Acute Assessment and plan: I think many of his suicidal ideation symptoms are related to stress in his life at this time. At least that when he blames it on. He has not been taking her medicines regularly. He says he would like to live somewhere else but did not have the financial resources to move. He will be seen for follow-up by mental health. Will be a candidate for the care bed which believe will be beneficial to get his situation more clearly controlled and managed. (2) Depression: Status: Chronic History of Present Illness History of Present Illness Chief Complaint: depression and suicidal ideation Narrative: This 55-year-old male is here because of suicidal ideation and depression. I am familiar with the situation has not known him for years and have taken care of him in multiple situations. He says he has been dealing with multiple issues that include a several some charge and may be looking at 6 to 9 months in [facility]. He says he has lung cancer and is not receiving treatment for this. He is quite angry with his neighbor says he has no financial resources to move. He said he could not take it yesterday and thought of cutting himself with a razor. He is on multiple psychiatric medicines but he says he has been flushing some of them down the toilet recently. There is no care bed opening so he was admitted last night. He has been vaccinated to coronavirus but had some symptoms last night of rhinorrhea. He smokes 1/2 pack cigarettes a day and denies use of alcohol. Review of Systems Constitutional Constitutional: Denies body ache(s), Denies chills and Denies fever(s) ENT Ears, Nose, Mouth, and Throat: Reports nasal discharge Cardiovascular Cardiovascular: Denies chest pain, Denies rapid heart rate, Denies pedal edema, Denies lightheadedness, Denies radiating jaw, neck or arm pain and Denies dyspnea Respiratory Respiratory: Denies cough, Denies dyspnea and Denies wheezing Gastrointestinal Gastrointestinal: Denies abdominal pain, Denies diarrhea, Denies nausea and Denies vomiting Genitourinary Genitourinary: Denies difficulty urinating Psychiatric Psychiatric: Reports anxiety, Reports depression, Reports hopelessness and Reports suicidal ideation Allergic/Immunologic Allergic/Immunologic: Denies wheezing PFSH All Active Problems Patient left without being seen (Acute) Other social stressor (Acute) Homicidal ideation (Acute) Nausea (Acute) Agitation (Acute) Hemoptysis (Acute) Shingles (Acute) Rash (Acute) Rib pain (Acute) Thumb injury (Acute) Abnormal chest CT (Acute) GERD (gastroesophageal reflux disease) (Chronic) DVT prophylaxis (Acute) Hypercholesterolemia (Chronic) Suicidal thoughts (Acute) Suicidal ideations (Acute) Leukocytosis (Chronic) Tobacco abuse (Chronic) Suicidal ideation (Acute) Anxiety (Chronic) Hypothyroid (Chronic) Depression (Chronic) COPD (chronic obstructive pulmonary disease) (Chronic) Depression (Chronic) Bipolar disorder (Chronic) Discharge planning issues (Acute) Depression with suicidal ideation (Acute) Medical History Bipolar disorder Depressed Stress Suicidal thoughts Traumatic pneumothorax 2017, chest tube x2 Surgical History History of ankle surgery S/P thoracostomy tube placement Social History Smoking/Tobacco Use Status: Current every day Tobacco Type: cigarettes Smoking risk assessment performed?: Yes Alcohol Intake: never Drug use: Daily Substance use type: marijuana Current gender identity: male Do you feel safe at home: No (downstairs neighbors) Do you feel safe in your relationship?: Yes Additional Social history: Lives in a private apartment. Has [facility] case management Meds Allergies and Home Medications Allergies Allergy/AdvReac Type Severity Reaction Status Date / Time Sulfa (Sulfonamide Allergy Severe Swelling/Ed Unverified 09/23/21 00:51 Antibiotics) jostin Home Medications Medication Instructions Recorded Confirmed Type omeprazole 20 mg capsule,delayed 20 mg PO QAM 10/16/13 09/23/21 History release magnesium oxide 400 mg (241.3 mg 400 mg PO QAM 10/20/19 09/23/21 History magnesium) tablet melatonin 3 mg tablet 10 mg PO 12/19/19 09/23/21 History olanzapine 5 mg tablet 7.5 mg PO QAM 12/19/19 09/23/21 History pravastatin 20 mg tablet 20 mg PO HS 12/19/19 09/23/21 History trazodone 50 mg tablet 50 mg PO HS 12/19/19 09/23/21 History hydroxyzine pamoate 25 mg capsule 25 mg PO BID 04/05/20 09/23/21 History (Vistaril) sennosides 8.6 mg tablet (senna) 8.6 mg PO BID PRN 04/05/20 09/23/21 History gabapentin 300 mg capsule 300 mg PO .QHS 09/28/20 09/23/21 History bupropion HCl 150 mg 24 hr tablet, 150 mg PO QAM #30 tab 01/24/21 09/23/21 Rx extended release levothyroxine 100 mcg tablet 100 mcg PO DAILY@0600 03/31/21 09/23/21 History sertraline 100 mg tablet 100 mg PO QAM 09/20/21 09/23/21 History Exam Const General: cooperative, No well groomed, disheveled, ill appearing and not lethargic Nutritional Appearance: malnourished Neck Neck: normal visual inspection, no lymphadenopathy and no JVD Resp Auscultation: clear to auscultation bilaterally, no rales, no rhonchi and no wheezes Cardio Rate: regular rate Rhythm: regular rhythm Heart Sounds: S1 normal, no gallops and no murmurs GI Palpation: soft, no hepatosplenomegaly, not firm, no guarding and nontender Neuro General: patient alert, patient awake and patient oriented x3 Psych Appearance: disheveled Mental Status: mental status grossly normal Speech and Movement: speech and movement normal Thought Process: illogical Insight: poor Judgment: limited Results Labs Labs: Laboratory Results - last 24 hr 09/22/21 23:11 COVID-19 Source Nasal/Nares SARS-CoV-2 (PCR) Negative Last Vital Signs Temp 36.3 C L 09/23/21 09:47 Pulse 103 H 09/23/21 09:47 Resp 17 09/23/21 09:47 BP 118/89 09/23/21 09:47 Pulse Ox 94 09/23/21 09:47
--- NOTE | 2021-09-23 10:21 | NUR.NOTE ---
Nursing Note: pt was given personal cell phone at this time so that he could call his crate builder. pt was told by this junior copywriter that after his call is complete he is to return his phone to the [employer].
--- NOTE | 2021-09-23 11:16 | PDOC.CMSAFE ---
- If Service Date Differs Date of service: 09/23/21 Time of Service: 11:16 Care Management Safety Plan Status: Voluntary - Reason for Wait Reason for Wait: Inpatient Admission VOLUNTARY FOR INPATIENT PSYCHIATRIC STABILIZATION. Patient is appropriate in all interactions since arriving at [facility]; Pt has demonstrated appropriate coping and communication skills, has articulated his or her needs and concerns and is fully engaged during staff interactions. A huddle is held at 10:35 am with Uma, nursing supervisor welding equipment repairer, SEAMUS Dorantes, and OLIMPIA Munson, in attendance. Safety plan has been established with patient, and care team, to adhere to patient goals, identify restrictions based on behavioral status, address nutrition, and determine allowed personal belongings, tools for hygiene and personal care. Determine level of activity including ambulation, level of supervision, visitors, and determine privileges based on behaviors and level of engagement by pt. SAFETY PLAN: 1. Will remain on suicide precautions. In Paper Clothes 2. Will remain in room under direct supervision of one-on-one staff at all times provided by [employer], DONTAE, JARRETT wool batting worker. 3. May have paper cups, plates, finger foods as well as a cardboard spoon with which to eat meals. 4. Follow [facility] Management of the Admitted Behavioral Health Patient policy. 5. Shower permitted with escort at RN discretion. 6. No personal belongings with the exception of eyeglasses. 7. Visitors: Per [facility] visitor policy and at RN discretion. 8. Activities: soft cart items, music tablet, television, and other activities at RN discretion. 9. Bathroom privileges available in room without limitation on M/S. 10. Phone: May use his cell phone to contact his assistant prosecuting attorney and to find someone to care for his dog. 11. Due to VOLUNTARY status, if patient wishes to leave [facility], staff will contact [facility] Crisis Screener ([phone]) and On-Call Skein Bander ([phone]) as soon as possible. In the event of elopement, notify [facility] Police ([phone]). Patient is currently voluntarily at [facility] and seeking inpatient admission when a bed becomes available. [facility] Frontline Rough Carpenter will continue seeking placement. Please contact the Customer Account Representative Skein Bander ([phone]) and [facility] Rough Carpenter ([phone]) for any needed changes in the Safety Plan. Safety plan has been provided to interdepartmental care team.
--- NOTE | 2021-09-23 12:43 | W.PM.DS.N ---
Date of service: 09/23/21 Time of Service: 12:44 DS: Diagnosis Discharge Diagnosis (1) Suicidal ideations: Status: Acute (2) Depression: Status: Chronic Discharge Plan Disposition Patient Disposition: HOME Condition: Improving Discharge Details Reason For Visit: Depression,Suicidal Admit Date/Time: 09/23/21 00:23 Admit Provider: Chung Pérez Attending Provider: Chung Pérez Primary Care Provider: Fariba Forde Hospital Course Hospital Course: This 55-year-old male is here because of suicidal ideation and depression.? He is known to the hospital. He states he has been charged by police for assualt and may be looking at 6 to 9 months in correction.? He also states he is angry with his neighbor . He said he could not take it yesterday and considered cutting himself with a razor.? He is on multiple psychiatric medicines, it is unclear if he is taking any of them as prescribed. He admits to flushing some of them down the toilet. There is no care bed opening so he was admitted last night. He was seen by mental health today. They devised a plan to have him go home and get some clothes and meet the family caseworker @ [facility]. He has contracted for safety with them . Home Meds and New Rx's Prescriptions: Continued omeprazole 20 MG capsule,delayed release(DR/EC) 20 mg PO QAM 0RF Label Comments: Pt states he does not know what his meds are - someone drops them off and he does not take them. States he flushes them down the toilet. magnesium oxide 400 mg (241.3 mg magnesium) tablet 400 mg PO QAM 0RF Label Comments: Pt states he does not know what his meds are - someone drops them off and he does not take them. States he flushes them down the toilet. sennosides [senna] 8.6 mg Tablet 8.6 mg PO BID PRN0RF Label Comments: Pt states he does not know what his meds are - someone drops them off and he does not take them. States he flushes them down the toilet. hydroxyzine pamoate [Vistaril] 25 mg Capsule 25 mg PO BID 0RF Label Comments: Pt states he does not know what his meds are - someone drops them off and he does not take them. States he flushes them down the toilet. bupropion HCl 150 mg tablet extended release 24 hr 150 mg PO QAM Qty: 30 0RF trazodone 50 mg tablet 50 mg PO HS 0RF Label Comments: Pt states he does not know what his meds are - someone drops them off and he does not take them. States he flushes them down the toilet. olanzapine 5 mg tablet 7.5 mg PO QAM 0RF Label Comments: Pt states he does not know what his meds are - someone drops them off and he does not take them. States he flushes them down the toilet. melatonin 3 mg tablet 10 mg PO HS 0RF Label Comments: Pt states he does not know what his meds are - someone drops them off and he does not take them. States he flushes them down the toilet. Rx Instructions: Take 2 tablets by mouth at bedtime pravastatin 20 mg tablet 20 mg PO HS 0RF Label Comments: Pt states he does not know what his meds are - someone drops them off and he does not take them. States he flushes them down the toilet. gabapentin 300 mg capsule 300 mg PO .QHS 0RF Label Comments: Take 1 capsule by mouth at bedtime levothyroxine 100 mcg Tablet 100 mcg PO DAILY@0600 0RF sertraline 100 mg tablet 100 mg PO QAM 0RF Discharge Instructions Stand Alone Forms: Nursing Discharge Form Referrals: Fariba Forde [Primary Care Provider] - (Please call to make a follow up appointment.) Activity:: Activity as Tolerated Equipment/Supplies:: No Equipment Needed Diet:: As Tolerated Discharge Orders Discharge Orders: Discharge Order (Routine); Ordered 09/23/21 Ordered By: Latesha Salinas DS: Summary Time Spent with Patient providing and/or coordinating discharge services: Less than 30 minutes Status at Discharge Functional status at discharge: independent ambulation Overall status at discharge: patient is progressing back to baseline Mental Status: mental status grossly normal and other Speech and Movement: speech and movement normal and speech clear Mood: anxious mood and other Affect: labile affect Exam Psych Mental Status: mental status grossly normal and other Speech and Movement: speech and movement normal and speech clear Mood: anxious mood and other Affect: labile affect DS: Data Vitals/I&O Vitals and I&O: Vital Signs Temperature 36.3 C L 09/23/21 09:47 Temperature Source Tympanic 09/23/21 09:47 Pulse 103 H 09/23/21 09:47 Pulse Rhythm Regular 09/23/21 09:43 Respiratory Rate 17 09/23/21 09:47 Respiratory Effort Non-Labored 09/23/21 09:43 Respiratory Depth Normal 09/23/21 09:43 Respiratory Pattern Normal 09/23/21 09:43 Blood Pressure 118/89 09/23/21 09:47 Pulse Oximetry 94 09/23/21 09:47 Oxygen Delivery Method Room Air 09/23/21 09:47 Oxygen Flow Rate 0 09/23/21 09:47 Pain Level 0 09/23/21 09:47 Intake & Output 09/22/21 09/23/21 09/23/21 23:59 11:59 23:59 Weight 83.915 kg 83.915 kg Other: Urine Appearance Clear Voiding Methods Toilet Data Completed and Pending Labs on day of discharge: Labs from last 24 hours 09/22/21 23:11 COVID-19 Source Nasal/Nares SARS-CoV-2 (PCR) Negative PFSH All Active Problems Patient left without being seen (Acute) Other social stressor (Acute) Homicidal ideation (Acute) Nausea (Acute) Agitation (Acute) Hemoptysis (Acute) Shingles (Acute) Rash (Acute) Rib pain (Acute) Thumb injury (Acute) Abnormal chest CT (Acute) GERD (gastroesophageal reflux disease) (Chronic) DVT prophylaxis (Acute) Hypercholesterolemia (Chronic) Suicidal thoughts (Acute) Suicidal ideations (Acute) Leukocytosis (Chronic) Tobacco abuse (Chronic) Suicidal ideation (Acute) Anxiety (Chronic) Hypothyroid (Chronic) Depression (Chronic) COPD (chronic obstructive pulmonary disease) (Chronic) Depression (Chronic) Bipolar disorder (Chronic) Discharge planning issues (Acute) Depression with suicidal ideation (Acute) Medical History Bipolar disorder Depressed Stress Suicidal thoughts Traumatic pneumothorax 2017, chest tube x2 Surgical History History of ankle surgery S/P thoracostomy tube placement Social History Smoking/Tobacco Use Status: Current every day Tobacco Type: cigarettes Smoking risk assessment performed?: Yes Alcohol Intake: never Drug use: Daily Substance use type: marijuana Current gender identity: male Do you feel safe at home: No (downstairs neighbors) Do you feel safe in your relationship?: Yes Additional Social history: Lives in a private apartment. Has [facility] case management
--- NOTE | 2021-09-23 13:09 | CMPROGNOTE_ITS ---
- If Service Date Differs Date of service: 09/23/21 Time of Service: 13:09 Care Management Progress Note S/O: Asim, who is well known to [facility], presents in the ED early this morning for suicidal ideation. Asim currently has a number of stressors in his life, including neighbors he doesn't get along with, a diagnosis of lung cancer, and a simple assault charge that stems from an incident that occurred in November of last year. Asim is standing in the entryway of his room chatting with the CPSO when CM comes to meet with him today. He is pleasant and talkative. He met with Simi Christopher, [facility], via zoom earlier and has been deemed safe for discharge. Asim confirms that he feels safe returning to the community. A: Asim is a 55 year old male admitted to [facility] on 09/23/2021 for depression and suicidal ideation. P: Asim is discharged back to the community. He will follow up with his PCP, [facility] and plan of care as directed. He will be transported to [facility] from [facility] via [facility] private chuck wagon driver. - MH Services (Omit if N/A) Current MH Services: [facility]
--- NOTE | 2021-09-23 13:09 | CMDISCH_ITS ---
- If Service Date Differs Date of service: 09/23/21 Time of Service: 13:10 LACE Index Scoring Tool - Questions: Length of Stay (in days): 1 Acuity (Admit via E.D.?): Yes Comorbidities: Any Tumor E.D. Visits: 20 - Answers: Total Score: 10 Risk of Readmission: High Risk Care Management Discharge Reason for Hospitalization: Depression, suicidal. Discharge Plan: Asim is discharged from [facility] with a plan of going to [facility] to meet with a [facility] [employer] telephonic case manager. He will follow up with PCP, community providers and plan of care as directed. He is transported to [facility] via [facility] private vehicle, coordinated by CM. Patient/Family Education Needs: Review of discharge instructions; discuss Ask Me Three. Services Needed at Discharge: Transportation ([facility] ) - MH Services (Omit if N/A) Current MH Services: [facility] - Disposition Disposition: Community Discharge Transport via of: Private Vechicle
--- NOTE | 2021-09-23 13:09 | PDOC.CMPRO ---
- If Service Date Differs Date of service: 09/23/21 Time of Service: 13:09 Care Management Progress Note S/O: Asim, who is well known to [facility], presents in the ED early this morning for suicidal ideation. Asim currently has a number of stressors in his life, including neighbors he doesn't get along with, a diagnosis of lung cancer, and a simple assault charge that stems from an incident that occurred in November of last year. Asim is standing in the entryway of his room chatting with the [employer]PSO when CM comes to meet with him today. He is pleasant and talkative. He met with Simi Christopher, [facility], via zoom earlier and has been deemed safe for discharge. Asim confirms that he feels safe returning to the community. A: Asim is a 55 year old male admitted to [facility] on 09/23/2021 for depression and suicidal ideation. P: Asim is discharged back to the community. He will follow up with his PCP, [facility] and plan of care as directed. He will be transported to [facility] from [facility] via [facility] private four horse hitch driver. - MH Services (Omit if N/A) Current MH Services: CERTIFIED [facility]
--- NOTE | 2021-09-23 13:09 | PDOC.CMDIS ---
- If Service Date Differs Date of service: 09/23/21 Time of Service: 13:10 LACE Index Scoring Tool - Questions: Length of Stay (in days): 1 Acuity (Admit via E.D.?): Yes Comorbidities: Any Tumor E.D. Visits: 20 - Answers: Total Score: 10 Risk of Readmission: High Risk Care Management Discharge Reason for Hospitalization: Depression, suicidal. Discharge Plan: Asim is discharged from [facility] with a plan of going to [facility] to meet with a CANCELING AND CUTTING CONTROL CLERK porter sample case. He will follow up with PCP, community providers and plan of care as directed. He is transported to [facility] via [facility] private vehicle, coordinated by CM. Patient/Family Education Needs: Review of discharge instructions; discuss Ask Me Three. Services Needed at Discharge: Transportation ([facility] ) - MH Services (Omit if N/A) Current MH Services: CANCELING AND CUTTING CONTROL CLERK - Disposition Disposition: Community Discharge Transport via of: Private Vechicle
== END 2021-09-23 14:04 | disposition home or self-care (01) ==
LOC: ER 09-23 00:31 → MS 09-23 01:09
PROVIDERS: Admitting Provider Family Medicine; Emergency Provider Student in an Organized Health Care Education/Training Program; PCP Family Medicine; Visit Provider Family Medicine
DX: F31.9 Bipolar disorder, unspecified (principal); R45.851 Suicidal ideations; K21.9 Gastro-esophageal reflux disease without esophagitis; E78.00 Pure hypercholesterolemia, unspecified; J44.9 Chronic obstructive pulmonary disease, unspecified; E03.9 Hypothyroidism, unspecified; F41.9 Anxiety disorder, unspecified; F17.210 Nicotine dependence, cigarettes, uncomplicated; Z73.3 Stress, not elsewhere classified; Z79.899 Other long term (current) drug therapy; Z20.822 Contact with and (suspected) exposure to COVID-19
CPT/HCPCS: 87635; 99285; 99235; G0378

== ENCOUNTER 2021-12-21 00:43 | Emergency (ER) | payer MEDICAID, SELFPAY ==
[2021-12-21 00:50] VITALS: BP 103/77; PULSE 87; RESP 16; TEMP 36.8; O2SAT 95
--- NOTE | 2021-12-21 01:07 | W.ED.GENAD ---
Discharge Plan Disposition Patient Disposition: HOME Condition: Stable Discharge Details Clinical Impression: Depression Primary Care Provider: Chung Perry ED Provider: Asim Fierro Home Meds and New Rx's Prescriptions: Continued omeprazole 20 MG capsule,delayed release(DR/EC) 20 mg PO QAM magnesium oxide 400 mg (241.3 mg magnesium) tablet 400 mg PO QAM Label Comments: Pt states he does not know what his meds are - someone drops them off and he does not take them. States he flushes them down the toilet. sennosides [senna] 8.6 mg Tablet 8.6 mg PO BID PRN Label Comments: Pt states he does not know what his meds are - someone drops them off and he does not take them. States he flushes them down the toilet. hydroxyzine pamoate [Vistaril] 25 mg Capsule 25 mg PO BID Label Comments: Pt states he does not know what his meds are - someone drops them off and he does not take them. States he flushes them down the toilet. bupropion HCl 150 mg tablet extended release 24 hr 150 mg PO QAM Qty: 30 0RF trazodone 50 mg tablet 50 mg PO HS Label Comments: Pt states he does not know what his meds are - someone drops them off and he does not take them. States he flushes them down the toilet. olanzapine 5 mg tablet 7.5 mg PO QAM melatonin 3 mg tablet 10 mg PO HS Rx Instructions: Take 2 tablets by mouth at bedtime pravastatin 20 mg tablet 20 mg PO HS Label Comments: Pt states he does not know what his meds are - someone drops them off and he does not take them. States he flushes them down the toilet. gabapentin 300 mg capsule 300 mg PO .QHS Label Comments: Take 1 capsule by mouth at bedtime levothyroxine 100 mcg Tablet 100 mcg PO DAILY@0600 sertraline 100 mg tablet 100 mg PO QAM Discharge Instructions Instructions: Depression (ED) Additional Instructions: Follow up with your mental health providers if you feel more ill, have worsening thoughts of self harm return to the emergency department Medical Decision Making <Conner Velez MD - Last Filed: 12/21/21 07:27> 56-year-old male history of bipolar depression presents with worsening depression and suicidal thoughts. Depression surrounding social situations. Thoughts of cutting his own wrist in order to kill himself. [facility] [employer] services alerted [place] police to picker tender patient and bring to the emergency department for psychiatric evaluation. No external signs of trauma no signs of intoxication. Hemodynamically stable. Will allow patient to rest will provide anxiolysis. Close reassessment and consultation with [facility] [employer] services to determine safe disposition 7: 27 resting intervally no acute distress no events overnight. Awaiting consultation with <Asim Fierro MD - Last Filed: 12/21/21 10:07> 56-year-old male history of bipolar depression presents with worsening depression and suicidal thoughts. Depression surrounding social situations. Thoughts of cutting his own wrist in order to kill himself. [facility] [employer] services alerted from [place] police to picker tender patient and bring to the emergency department for psychiatric evaluation. No external signs of trauma no signs of intoxication. Hemodynamically stable. Will allow patient to rest will provide anxiolysis. Close reassessment and consultation with [facility] [employer] services to determine safe disposition 7: 27 resting intervally no acute distress no events overnight. Awaiting consultation with pt signed out to me pending mental health evaluation, saw DATA SERVICES DEVELOPER and is now denying si and wants to go home. He has a lot of support in the community and they will f/u with him. Return precautions given HPI <Conner Velez MD - Last Filed: 12/21/21 07:27> General Date/Time Provider Initiated Documentation: 12/21/21 00:45. HPI Narrative: 56-year-old male history of depression, bipolar presents with increased depression and suicidal thoughts. Endorses loneliness issues with job loss and his current living situation. Having thoughts of cutting up his arms in order to kill himself. [facility] [employer] services contacted [facility] police to pick patient up to be brought in for mental health evaluation Related Data Home Medications Medication Instructions Recorded Confirmed omeprazole 20 mg capsule,delayed 20 mg PO QAM 10/16/13 09/23/21 release magnesium oxide 400 mg (241.3 mg 400 mg PO QAM 10/20/19 12/21/21 magnesium) tablet melatonin 3 mg tablet 10 mg PO HS 12/19/19 12/21/21 olanzapine 5 mg tablet 7.5 mg PO QAM 12/19/19 12/21/21 pravastatin 20 mg tablet 20 mg PO HS 12/19/19 12/21/21 trazodone 50 mg tablet 50 mg PO HS 12/19/19 12/21/21 hydroxyzine pamoate 25 mg capsule 25 mg PO BID 04/05/20 12/21/21 (Vistaril) sennosides 8.6 mg tablet (senna) 8.6 mg PO BID PRN 04/05/20 12/21/21 gabapentin 300 mg capsule 300 mg PO .QHS 09/28/20 12/21/21 bupropion HCl 150 mg 24 hr tablet, 150 mg PO QAM #30 tabs 01/24/21 12/21/21 extended release levothyroxine 100 mcg tablet 100 mcg PO DAILY@0600 03/31/21 12/21/21 sertraline 100 mg tablet 100 mg PO QAM 09/20/21 12/21/21 Previous Rx's Medication Instructions Recorded bupropion HCl 150 mg 24 hr tablet, 150 mg PO QAM #30 tabs 01/24/21 extended release Allergies Allergy/AdvReac Type Severity Reaction Status Date / Time Sulfa (Sulfonamide Allergy Severe Swelling/Ed Unverified 12/21/21 00:56 Antibiotics) jostin General Stated Complaint: PsychEval ABA: 2 Review of Systems <Conner Velez MD - Last Filed: 12/21/21 07:27> Narrative: Review of Systems Constitutional: negative Eyes: negative ENT: negative Cardiovascular: negative Respiratory: negative Gastrointestinal: negative : negative Musculoskeletal: negative Skin: negative Neurologic: negative Psych: Depression, suicidal ideation [facility] <Conner Velez MD - Last Filed: 12/21/21 07:27> All Active Problems (Updated 12/21/21 @ 10:05 by Asim Fierro MD) Depression (Chronic) Other social stressor (Acute) Homicidal ideation (Acute) Nausea (Acute) Agitation (Acute) Hemoptysis (Acute) Shingles (Acute) Rash (Acute) Rib pain (Acute) Thumb injury (Acute) Abnormal chest CT (Acute) GERD (gastroesophageal reflux disease) (Chronic) DVT prophylaxis (Acute) Hypercholesterolemia (Chronic) Suicidal thoughts (Acute) Leukocytosis (Chronic) Tobacco abuse (Chronic) Suicidal ideation (Acute) Anxiety (Chronic) Hypothyroid (Chronic) Depression (Chronic) COPD (chronic obstructive pulmonary disease) (Chronic) Depression (Chronic) Bipolar disorder (Chronic) Discharge planning issues (Acute) Depression with suicidal ideation (Acute) Medical History Bipolar disorder Depressed Stress Suicidal thoughts Traumatic pneumothorax 2017, chest tube x2 Surgical History History of ankle surgery S/P thoracostomy tube placement Social History Smoking/Tobacco Use Status: Current every day Tobacco Type: cigarettes Smoking risk assessment performed?: Yes Alcohol Intake: never Drug use: Daily Substance use type: marijuana Current gender identity: male Do you feel safe at home: No (downstairs neighbors) Do you feel safe in your relationship?: Yes Additional Social history: Lives in a private apartment. Has [facility] case management Exam <Conner Velez MD - Last Filed: 12/21/21 07:27> Narrative Exam Narrative: Physical Examination General: alert, awake, cooperative, resting comfortably, no acute distress HEENT: normocephalic, atraumatic; PERRL, EOM intact, conjunctiva normal; no nasal discharge; moist mucous membranes, oral and pharyngeal mucosa normal, tolerating secretions Neck: supple, trachea midline; full ROM Chest: normal to inspection Respiratory: normal respiratory effort, speaking in full sentences, clear to auscultation, no wheezing, rales or rhonchi Cardiac: regular rate, regular rhythm, S1S2 intact, no murmurs rubs or gallops GI: abdomen soft, non-tender, non-distended; no palpable mass or hepatosplenomegaly Skin: no lesions, rashes or trauma appreciated Neuro: AAOx3, normal speech, moving all extremities Psych: Depression, suicidal ideation Course <Conner Velez MD - Last Filed: 12/21/21 07:27> Vital Signs Vital signs: Vital Signs Temperature 36.8 C 12/21/21 00:50 Pulse 87 12/21/21 00:50 Respiratory Rate 16 12/21/21 00:50 Blood Pressure 103/77 12/21/21 00:50 Pulse Oximetry 95 12/21/21 00:50 Temperature 36.8 C 12/21/21 00:50 Temperature Source Temporal Artery Scan 12/21/21 00:50 Pulse 87 12/21/21 00:50 Respiratory Rate 16 12/21/21 00:50 Respiratory Effort 12/21/21 00:50 Blood Pressure 103/77 12/21/21 00:50 Blood Pressure Position Sitting 12/21/21 00:50 Pulse Oximetry 95 12/21/21 00:50 Oxygen Delivery Method Room Air 12/21/21 00:50 Oxygen Flow Rate 0 12/21/21 00:50 Pain Level 0 12/21/21 00:50 Sign Out <Conner Velez MD - Last Filed: 12/21/21 07:27> Sign Out Data: Sign Out Comment: depression, SI; awaiting [facility] eval this AM Last updated by Conner Velez MD at 12/21/21 07:12
[2021-12-21] MEDS: LORazepam 1 MG TAB PO (01:10)
[2021-12-21 09:47] LABS: Source Nasal/Nares
[2021-12-21 09:58] LABS: Abs Immature Grans 0.02 10^3/uL (0.0-0.06); Absolute Basophil Count 0.03 10^3/uL (0.0-0.2); Absolute Eosinophil Count 0.18 10^3/uL (0.0-0.7); Absolute Lymphocyte Count 1.55 10^3/uL (1.2-3.4); Absolute Monocyte Count 0.43 10^3/uL (0.1-0.8); Basophils % 0.4; Eosinophils % 2.1; HCT 44.6 % (40.0-50.0); HGB 14.5 g/dL (13.5-17.5); Immature Grans % 0.2; Lymphocytes % 18.2; MCH 25.7 pg (27.0-33.0); MCHC 32.5 % (32.0-36.0); MCV 79 fL (80-95); MPV 9.6 fL (8.0-11.0); Monocytes % 5.1; Platelet Count 214 10^3/uL (130-400); RBC 5.65 10^6/uL (4.36-5.78); RDW 15.2 % (11.8-14.1); RDW-SD 43.7 fL; WBC 8.51 10^3/uL (4.4-10.8)
[2021-12-21 10:24] LABS: ALT 21 U/L (16-63); AST 19 U/L (15-37); Albumin 3.5 g/dL (3.4-5.0); Alkaline Phosphatase 107 U/L (46-116); Anion Gap 3.7 mmol/L (3-11); BUN 17 mg/dL (7-18); Bilirubin, Total 0.3 mg/dL (0.2-1.0); CO2 26.3 mmol/L (21.0-32.0); CREATININE 0.8 mg/dL (0.70-1.30); Calcium 8.8 mg/dL (8.5-10.1); Chloride 103 mmol/L (98-107); ETHANOL BLOOD 3.3 mg/dL (<10); Glucose 122 mg/dL (74-106); Potassium 4.1 mmol/L (3.5-5.1); Sodium 133 mmol/L (136-145); TSH (W/Ref FT4) 1.74 uIU/mL (0.36-3.74); Total Protein 7.6 g/dL (6.4-8.2)
[2021-12-21 10:41] LABS: Salicylate 4.7 mg/dL (<2.8)
[2021-12-21 10:43] LABS: Acetaminophen < 2 ug/mL (10-30)
[2021-12-21 10:53] LABS: COVID-19 PCR Negative (Negative)
== END 2021-12-21 10:22 | disposition home or self-care (01) ==
PROVIDERS: Emergency Provider Emergency Medicine; PCP Family Medicine
DX: F32.A Depression, unspecified (principal); R45.851 Suicidal ideations; F17.210 Nicotine dependence, cigarettes, uncomplicated; Z20.822 Contact with and (suspected) exposure to COVID-19
CPT/HCPCS: 36415; 80053; 87635; 99285; 80320; 80329; 84443; 85025; 99283

== ENCOUNTER 2021-12-21 14:38 | Inpatient (IN) | payer MEDICAID, SELFPAY ==
--- NOTE | 2021-12-21 14:31 | ED.GENADUL_ITS ---
Discharge Plan Disposition Patient Disposition: [facility] INPATIENT Condition: Stable Discharge Details Clinical Impression: Deliberate self-cutting Admit Date/Time: 12/21/21 20:51 Admit Provider: Saravanan Ricardo Attending Provider: Saravanan Ricardo Primary Care Provider: Chung Perry ED Provider: Emilie Carrillo Medical Decision Making <RENAE Minaya - Last Filed: 12/21/21 15:39> 56-year-old gentleman presents to the ER via EMS for self cutting of his left forearm. The lacerations are to be cleaned, dressed appropriately. They are not requiring any closure. He declines a tetanus update. Patient was seen in the ER overnight, had laboratory values drawn, has no acute medical concerns or complaints. I do not feel as though repeating any laboratory values are indicated. Using the smart medical clearance form he also would not require any additional laboratory values. Because he did go back into the community I will repeat a COVID swab as well as a urine tox screen. I have initiated an interim care plan, CPSO, and requested a mental health evaluation. He is currently vaguely suicidal and states overall he does not care if he lives or dies. He states he could cut deeper later if he wanted to but at this time does not intend to act upon that desire. Mental health evaluation in process. Patient is currently a voluntary. He has been cooperative during his ER visit. Medical Records Medical records reviewed: Yes I reviewed the patient's medical records. <RENAE Matt - Last Filed: 12/21/21 22:28> 56-year-old gentleman presents to the ER via EMS for self cutting of his left forearm. The lacerations are to be cleaned, dressed appropriately. They are not requiring any closure. He declines a tetanus update. Patient was seen in the ER overnight, had laboratory values drawn, has no acute medical concerns or complaints. I do not feel as though repeating any laboratory values are indicated. Using the smart medical clearance form he also would not require any additional laboratory values. Because he did go back into the community I will repeat a COVID swab as well as a urine tox screen. I have initiated an interim care plan, CPSO, and requested a mental health evaluation. He is currently vaguely suicidal and states overall he does not care if he lives or dies. He states he could cut deeper later if he wanted to but at this time does not intend to act upon that desire. Mental health evaluation in process. Patient is currently a voluntary. He has been cooperative during his ER visit. Care is accepted in transfer from Jaime Ballard physician blood donor unit assistant at 1530 Patient has been calm and cooperative throughout this assessment RCT's plan is to find a crisis bed for this patient, he initially had a safety plan in place but went home and self-harm and will now be a voluntary admission for crisis line placement Patient is agreeable to this plan Tox screen positive for THC, COVID-negative HPI <RENAE Minaya - Last Filed: 12/21/21 15:39> General Mode of arrival: EMS . Date/Time Provider Initiated Documentation: 12/21/21 14:47 . Limitations to Documentation: no limitations . Information obtained by: patient and EMS . HPI Narrative: This is a 56-year-old male, past medical history of depression, social stressors, anxiety, bipolar disorder, reporting increased stress, vague suicidal thoughts and superficial cutting of his left arm. Tetanus status is not updated and he declines tetanus update at this time. Patient was seen in the ER overnight and subsequently discharged today. States that when he got home he just snapped. He denies any recent illness or trauma, no other self injuries. Denies any pain to his left arm. He has no other acute concerns or complaints at this time and would like to talk with the mental health crisis team Related Data Home Medications Medication Instructions Recorded Confirmed omeprazole 20 mg capsule,delayed 20 mg PO QAM 10/16/13 12/21/21 release magnesium oxide 400 mg (241.3 mg 400 mg PO QAM 10/20/19 12/21/21 magnesium) tablet melatonin 3 mg tablet 10 mg PO HS 12/19/19 12/21/21 olanzapine 5 mg tablet 7.5 mg PO QAM 12/19/19 12/21/21 pravastatin 20 mg tablet 20 mg PO HS 12/19/19 12/21/21 trazodone 50 mg tablet 50 mg PO HS 12/19/19 12/21/21 hydroxyzine pamoate 25 mg capsule 25 mg PO BID 04/05/20 12/21/21 (Vistaril) sennosides 8.6 mg tablet (senna) 8.6 mg PO BID PRN 04/05/20 12/21/21 gabapentin 300 mg capsule 300 mg PO .QHS 09/28/20 12/21/21 bupropion HCl 150 mg 24 hr tablet, 150 mg PO QAM #30 tabs 01/24/21 12/21/21 extended release levothyroxine 100 mcg tablet 100 mcg PO DAILY@0600 03/31/21 12/21/21 sertraline 100 mg tablet 100 mg PO QAM 09/20/21 12/21/21 Previous Rx's Medication Instructions Recorded bupropion HCl 150 mg 24 hr tablet, 150 mg PO QAM #30 tabs 01/24/21 extended release Allergies Allergy/AdvReac Type Severity Reaction Status Date / Time Sulfa (Sulfonamide Allergy Severe Swelling/Ed Unverified 12/21/21 15:35 Antibiotics) jostin General ABA: 2 Review of Systems <RENAE Minaya - Last Filed: 12/21/21 15:39> Constitutional Constitutional: Denies fever(s) and Denies weakness ENT Ears, Nose, Mouth, and Throat: Denies neck pain Cardiovascular Cardiovascular: Denies chest pain and Denies dyspnea Respiratory Respiratory: Denies dyspnea Gastrointestinal Gastrointestinal: Denies abdominal pain, Denies nausea and Denies vomiting Musculoskeletal Musculoskeletal: Denies back pain, Denies neck pain, Denies numbness and Denies tingling Integumentary/Breasts Skin/Breast: Denies rash Neurologic Neurologic: Denies numbness, Denies tingling and Denies weakness Psychiatric Psychiatric: Reports anxiety, Reports depression, Denies homicidal ideation and Reports suicidal ideation [facility] <RENAE Minaya - Last Filed: 12/21/21 15:39> All Active Problems (Updated 12/21/21 @ 15:38 by RENAE Minaya) Depression (Chronic) Deliberate self-cutting (Acute) Other social stressor (Acute) Homicidal ideation (Acute) Nausea (Acute) Agitation (Acute) Hemoptysis (Acute) Shingles (Acute) Rash (Acute) Rib pain (Acute) Thumb injury (Acute) Abnormal chest CT (Acute) GERD (gastroesophageal reflux disease) (Chronic) DVT prophylaxis (Acute) Hypercholesterolemia (Chronic) Suicidal thoughts (Acute) Leukocytosis (Chronic) Tobacco abuse (Chronic) Suicidal ideation (Acute) Anxiety (Chronic) Hypothyroid (Chronic) Depression (Chronic) COPD (chronic obstructive pulmonary disease) (Chronic) Depression (Chronic) Bipolar disorder (Chronic) Discharge planning issues (Acute) Depression with suicidal ideation (Acute) Medical History Bipolar disorder Depressed Stress Suicidal ideations Suicidal thoughts Traumatic pneumothorax 2017, chest tube x2 Surgical History History of ankle surgery S/P thoracostomy tube placement Social History Smoking/Tobacco Use Status: Current every day Tobacco Type: cigarettes Smoking risk assessment performed?: Yes Alcohol Intake: never Drug use: Daily Substance use type: marijuana Current gender identity: male Do you feel safe at home: No (downstairs neighbors) Do you feel safe in your relationship?: Yes Additional Social history: Lives in a private apartment. Has [facility] case management Exam <RENAE Minaya - Last Filed: 12/21/21 15:39> Const General: cooperative, healthy appearing, comfortable and no acute distress Orientation: alert and awake HENNM Head: normal to inspection, normocephalic and atraumatic Face and sinus: normal facial exam Mouth: moist mucous membranes Eyes Conjunctivae: conjunctivae normal Neck Neck: normal visual inspection, full ROM, trachea midline and supple Resp Effort & Inspection: normal respiratory effort and able to speak in complete sentences Auscultation: clear to auscultation bilaterally Cardio Rate: regular rate Rhythm: regular rhythm GI Palpation: soft and nontender Back/Spine/Pelvis Back: No back tenderness Skin General skin exam: no rashes or lesions noted Neuro General: patient alert, patient awake, moves all extremities and no focal motor deficits Cognition: normal cognition Speech: speech normal Gait: normal gait Motor: muscle tone normal throughout Sensory Exam: no sensory deficits noted Extrem General: full ROM and capillary refill normal Other: Left forearm with multiple superficial abrasions. There is no laceration that requires closure. Neuro, vascular, tendon intact. No active bleeding. Normal radial pulse and capillary refill. Psych Appearance: grossly normal Mental Status: mental status grossly normal Speech and Movement: agitated Mood: anxious mood Affect: labile affect Attitude: cooperative Thought Process: normal Thought Content: suicidality Insight: limited Judgment: limited Sign Out <RENAE Minaya - Last Filed: 12/21/21 15:39> Sign Out Data: Sign Out Comment: Vague SI with self harming behavior. Has been cooperative here. The left forearm has been cleaned and appropriately dressed. Currently a voluntary and awaiting mental health evaluation. Interim care plan and CPSO in place Last updated by Jaime Ballard PA at 12/21/21 15:40
[2021-12-21 14:40] VITALS: BP 125/87; PULSE 87; RESP 20; TEMP 36.8; O2SAT 95
[2021-12-21 15:26] LABS: Source Nasal/Nares
[2021-12-21] MEDS: Bacitracin 1 PACKET ×2 (15:40)
--- NOTE | 2021-12-21 15:58 | CMSP_ITS ---
- If Service Date Differs Date of service: 12/21/21 Time of Service: 15:59 Care Management Safety Plan Status: Voluntary - Reason for Wait Reason for Wait: Community Placement (Crisis Bed) CHIEF COMPLAINT: Asim presents in the ED for depression and suicidal ideation for the second time today. He met with [facility] DEVELOPMENTAL THERAPIST this morning, denied suicidal ideation at that time and discharged home. He now returns to the ED via EMS stating he snapped while at home and cut his left forearm. Per nursing staff, the cuts are random and superficial. Asim is reassessed by Chasity, [facility] DEVELOPMENTAL THERAPIST worker, and found appropriate for a crisis bed placement. Asim will remain at [facility] and will be reassessed by [facility] DEVELOPMENTAL THERAPIST daily until a bed can be secured for him. CM will continue to follow. VOLUNTARY FOR INPATIENT PSYCHIATRIC STABILIZATION. Patient is appropriate in all interactions since arriving at [facility]; Pt has demonstrated appropriate coping and communication skills, has articulated his or her needs and concerns and is fully engaged during staff interactions. A huddle is held at 16:00 am with Emilie, ED provider, Rizwana, nursing right of way supervisor, Cinthya, charge nurse, SEAMUS Patricia, and OLIMPIA Munson, in attendance. Safety plan has been established with patient, and care team, to adhere to patient goals, identify restrictions based on behavioral status, address nutrition, and determine allowed personal belongings, tools for hygiene and p ersonal care. Determine level of activity including ambulation, level of supervision, visitors, and determine privileges based on behaviors and level of engagement by pt. SAFETY PLAN: 1. Will remain on suicide precautions. In Paper Clothes 2. Will remain in room under direct supervision of one-on-one staff at all times provided by CPSO, DONTAE, REHABILITATION CASE COORDINATOR meter changes records clerk. 3. May have paper cups, plates, finger foods as well as a cardboard spoon with which to eat meals. 4. Follow [facility] Management of the Admitted Behavioral Health Patient policy. 5. Comfort bath only. 6. No personal belongings with the exception of eyeglasses. 7. Visitors: None at this time. 8. Activities: soft cart items, music tablet, television if available, and other activities at RN discretion. 9. Bathroom privileges with escort in the ED; available in room without limitation on M/S. 10. Phone: May use Rapt phone at RN discretion. 11. Due to VOLUNTARY status, if patient wishes to leave [facility], staff will contact [facility] Crisis Screener ([phone]) and On-Call Machinist Wood ([phone]) as soon as possible. In the event of elopement, notify [facility] Police ([phone]). Patient is currently voluntarily at [facility] and seeking inpatient admission when a bed becomes available. [facility] Frontline Oracle Security Consultant will continue seeking placement. Please contact the Molded Frames Assembler Machinist Wood ([phone]) and [facility] Perla is Worker ([phone]) for any needed changes in the Safety Plan. Safety plan has been provided to interdepartmental care team.
--- NOTE | 2021-12-21 15:58 | PDOC.CMSAFED ---
- If Service Date Differs Date of service: 12/21/21 Time of Service: 15:59 Care Management Safety Plan Status: Voluntary - Reason for Wait Reason for Wait: Community Placement (Crisis Bed) CHIEF COMPLAINT: Asim presents in the ED for depression and suicidal ideation for the second time today. He met with [facility] OIL FIELD ROUSTABOUT this morning, denied suicidal ideation at that time and discharged home. He now returns to the ED via EMS stating he snapped while at home and cut his left forearm. Per nursing staff, the cuts are random and superficial. Asim is reassessed by Chasity, [facility] OIL FIELD ROUSTABOUT worker, and found appropriate for a crisis bed placement. Asim will remain at [facility] and will be reassessed by [facility] OIL FIELD ROUSTABOUT daily until a bed can be secured for him. CM will continue to follow. VOLUNTARY FOR INPATIENT PSYCHIATRIC STABILIZATION. Patient is appropriate in all interactions since arriving at [facility]; Pt has demonstrated appropriate coping and communication skills, has articulated his or her needs and concerns and is fully engaged during staff interactions. A huddle is held at 16:00 am with Emilie, ED provider, Rizwana, nursing supervisor incising, Cinthya, charge nurse, Harshad, SEAMUS, and OLIMPIA Munson, in attendance. Safety plan has been established with patient, and care team, to adhere to patient goals, identify restrictions based on behavioral status, address nutrition, and determine allowed personal belongings, tools for hygiene and personal care. Determine level of activity including ambulation, level of supervision, visitors, and determine privileges based on behaviors and level of engagement by pt. SAFETY PLAN: 1. Will remain on suicide precautions. In Paper Clothes 2. Will remain in room under direct supervision of one-on-one staff at all times provided by CPSO, DONTAE, DIRECTOR OF BUSINESS SERVICES extension work instructor. 3. May have paper cups, plates, finger foods as well as a cardboard spoon with which to eat meals. 4. Follow [facility] Management of the Admitted Behavioral Health Patient policy. 5. Comfort bath only. 6. No personal belongings with the exception of eyeglasses. 7. Visitors: None at this time. 8. Activities: soft cart items, music tablet, television if available, and other activities at RN discretion. 9. Bathroom privileges with escort in the ED; available in room without limitation on M/S. 10. Phone: May use Offermobi phone at RN discretion. 11. Due to VOLUNTARY status, if patient wishes to leave [facility], staff will contact [facility] Crisis Screener ([phone]) and On-Call Senior Energy Analyst ([phone]) as soon as possible. In the event of elopement, notify [facility] Police ([phone]). Patient is currently voluntarily at [facility] and seeking inpatient admission when a bed becomes available. [facility] Frontline Ordnance Truck Installation Supervisor will continue seeking placement. Please contact the Manager Enterprise Senior Energy Analyst ([phone]) and [facility] Ordnance Truck Installation Supervisor ([phone]) for any needed changes in the Safety Plan. Safety plan has been provided to interdepartmental care team.
[2021-12-21 16:20] LABS: COVID-19 PCR Negative (Negative)
[2021-12-21 17:15] LABS: *AMPHETAMINES SCREEN URINE Negative (Negative); *BARBITURATES SCREEN URINE Negative (Negative); *BENZODIAZEPINES SCREEN URINE Negative (Negative); Cannabinoids THC Positive (Negative); Cocaine Screen,Urine Negative (Negative); METHADONE URINE SCREEN Negative (Negative); OPIATES URINE SCREEN Negative (Negative)
[2021-12-21 17:16] LABS: Tricyclic Antidepressants Negative (Negative)
[2021-12-21] MEDS: Gabapentin 300 MG CAP PO (17:59)
[2021-12-21] MEDS: hydrOXYzine PAMOATE 25 MG CAP PO (17:59)
[2021-12-21] MEDS: traZODone 50 MG TAB PO (18:00)
[2021-12-21] MEDS: Pravastatin 20 MG TAB PO (18:28)
--- NOTE | 2021-12-21 20:51 | HPE_ITS ---
Date of service: 12/21/21 Time of Service: 20:51 Assessment and Plan Assessment and plan (1) Suicidal ideation: Start date: 12/21/21 Status: Acute (2) Deliberate self-cutting: Status: Acute Assessment and plan: This is a 56-year-old psychiatric patient who has had multiple visits to the ED and encounters with mental health having had a plan of outpatient care which failed and returned with superficial cuts over his forearm which did not require suturing. He had suicidal ideation with his cutting and is voluntarily admitted pending placement for inpatient psychiatric care. He is a full code. Mental health is involved and he will be supervised until placement for inpatient psychiatric care. His medications will be reconciled for continuation of his usual meds. (3) Depression: Status: Chronic Assessment and plan: Continue outpatient medical therapy with adjustment to be guided by mental health. Patient is awaiting voluntary inpatient psychiatric care he is medically cleared for placement. History of Present Illness History of Present Illness Chief Complaint: Suicidal ideations with cutting Narrative: This is a 56-year-old male patient with a long history of depression with anxiety and bipolar mood disorder who reported to the ED having increased stress and vague suicidal thoughts with superficial cutting of his left forearm volarly. It did not require sutures and patient declined tetanus update. He was seen in the ED and went home and then returned with the patient voluntarily wanting to have placement for inpatient psychiatric care with suicidal ideation. He had a plan for safe outpatient treatment which she felt when he cut himself and felt that he was not doing well to be treated as an outpatient. He appears to have had multiple hospitalizations with recurrent suicidal ideation and acting out. He was retested for COVID before being brought in for inpatient and observation awaiting inpatient psychiatric care and remains negative. He is a smoker but declines nicotine supplement. He is a full code. Mental health has been consulted and is following the patient. Review of Systems Narrative: 13 point review of systems otherwise unrevealing or stable. Patient offers minimal conversation. Patient offers minimal conversation. [facility] All Active Problems (Updated 12/21/21 @ 23:50 by Saravanan Ricardo) Suicidal ideation (Acute) Depression (Chronic) Deliberate self-cutting (Acute) Other social stressor (Acute) Homicidal ideation (Acute) Nausea (Acute) Agitation (Acute) Hemoptysis (Acute) Shingles (Acute) Rash (Acute) Rib pain (Acute) Thumb injury (Acute) Abnormal chest CT (Acute) GERD (gastroesophageal reflux disease) (Chronic) DVT prophylaxis (Acute) Hypercholesterolemia (Chronic) Suicidal thoughts (Acute) Leukocytosis (Chronic) Tobacco abuse (Chronic) Suicidal ideation (Acute) Anxiety (Chronic) Hypothyroid (Chronic) Depression (Chronic) COPD (chronic obstructive pulmonary disease) (Chronic) Depression (Chronic) Bipolar disorder (Chronic) Discharge planning issues (Acute) Depression with suicidal ideation (Acute) Medical History Bipolar disorder Depressed Stress Suicidal ideations Suicidal thoughts Traumatic pneumothorax 2017, chest tube x2 Surgical History History of ankle surgery S/P thoracostomy tube placement Social History Smoking/Tobacco Use Status: Current every day Tobacco Type: cigarettes Smoking risk assessment performed?: Yes Alcohol Intake: never Drug use: Daily Substance use type: marijuana Current gender identity: male Do you feel safe at home: No (downstairs neighbors) Do you feel safe in your relationship?: Yes Additional Social history: Lives in a private apartment. Has [facility] case management Meds Allergies and Home Medications Allergies Allergy/AdvReac Type Severity Reaction Status Date / Time Sulfa (Sulfonamide Allergy Severe Swelling/Ed Unverified 12/21/21 15:35 Antibiotics) jostin Home Medications Medication Instructions Recorded Confirmed Type omeprazole 20 mg capsule,delayed 20 mg PO QAM 10/16/13 12/21/21 History release magnesium oxide 400 mg (241.3 mg 400 mg PO QAM 10/20/19 12/21/21 History magnesium) tablet melatonin 3 mg tablet 10 mg PO HS 12/19/19 12/21/21 History olanzapine 5 mg tablet 7.5 mg PO QAM 12/19/19 12/21/21 History pravastatin 20 mg tablet 20 mg PO HS 12/19/19 12/21/21 History trazodone 50 mg tablet 50 mg PO HS 12/19/19 12/21/21 History hydroxyzine pamoate 25 mg capsule 25 mg PO BID 04/05/20 12/21/21 History (Vistaril) sennosides 8.6 mg tablet (senna) 8.6 mg PO BID PRN 04/05/20 12/21/21 History gabapentin 300 mg capsule 300 mg PO .QHS 09/28/20 12/21/21 History bupropion HCl 150 mg 24 hr tablet, 150 mg PO QAM #30 tabs 01/24/21 12/21/21 Rx extended release levothyroxine 100 mcg tablet 100 mcg PO DAILY@0600 03/31/21 12/21/21 History sertraline 100 mg tablet 100 mg PO QAM 09/20/21 12/21/21 History Exam Narrative Exam Narrative: General: Patient appears older than stated age, alert and oriented at least to person place, moderate distress and avoiding eye contact with flattened affect and monotonous slowed mentation and speech. HEENT: Normocephalic with coarsened facial features and wrinkled skin with variable pigmentation over his face. Eyes with pupils equal and reactive to light symmetrically, extraocular movement intact and sclera anicteric. Oropharynx with dry mucosa and poor dentition. Neck: Supple without JVD. Lungs: Fair aeration and clear to auscultation with no adventitious sounds. No expiratory wheeze. Bronchovesicular breath sounds diffusely. Heart: Regular rate and rhythm with no murmurs or gallops appreciated. Abdomen: Soft, nontender to palpation with no palpable hepatosplenomegaly. Genitalia/rectal: Exam deferred. Extremities: Without clubbing, cyanosis or pitting edema. Skin: Rough texture with normal color except for verbal pigmentation over sun exposed areas with actinic changes. Warm and dry. Neuro: Cranial nerves II through XII gross intact, no focalizing motor deficits. Psych: Flattened affect with depressed mood. Patient avoids eye contact. Normal conversation. No abnormal thought processes manifested. Remote and recent memory appear to be grossly intact but difficult to test with patient not conversing easily. Results Imaging Additional studies: CMP elevated glucose at 122 sodium low at 133 otherwise limits. No proximal vomiting. Urine screen revealed only THC otherwise negative. No further studies indicated. Patient medically cleared. Labs Labs: Laboratory Results - last 24 hr 12/21/21 12/21/21 15:15 16:50 Urine Opiates Screen Negative Urine Methadone Screen Negative Ur Barbiturates Screen Negative Ur Tricyclics Screen Negative Ur Amphetamines Screen Negative U Benzodiazepines Scrn Negative Urine Cocaine Screen Negative Ur THC Screen Positive A COVID-19 Source Nasal/Nares SARS-CoV-2 (PCR) Negative Last Vital Signs Temp 36.8 C 12/21/21 14:40 Pulse 87 12/21/21 14:40 Resp 20 12/21/21 14:40 BP 125/87 12/21/21 14:40 Pulse Ox 95 12/21/21 14:40
[2021-12-21 21:50] VITALS: BP 112/80; PULSE 74; RESP 16; TEMP 36.6; O2SAT 96
[2021-12-21 21:55] VITALS: BP 112/80; PULSE 74; RESP 16; TEMP 36.6; O2SAT 96
[2021-12-21] MEDS: Melatonin 3 MG TAB 10 MG PO (22:39)
[2021-12-21] MEDS: Acetaminophen 325 MG TAB PO (22:39)
[2021-12-22 08:28] VITALS: BP 129/87; PULSE 70; RESP 16; TEMP 36.2; O2SAT 96
--- NOTE | 2021-12-22 09:43 | CMSP_ITS ---
- If Service Date Differs Date of service: 12/22/21 Time of Service: 09:43 Care Management Safety Plan Status: Voluntary - Reason for Wait Reason for Wait: Community Placement (Crisis Bed) VOLUNTARY FOR INPATIENT PSYCHIATRIC STABILIZATION. Patient is appropriate in all interactions since arriving at [facility]; Pt has demonstrated appropriate coping and communication skills, has articulated his or her needs and concerns and is fully engaged during staff interactions. A huddle is held at 9:00 am with Roya, nursing supervisor park workers, Anika, skilled nursing facility counselor, SEAMUS Soto, Cinthya, nurse educator, and OLIMPIA Munson, in attendance. Safety plan has been established with patient, and care team, to adhere to patient goals, identify restrictions based on behavioral status, address nutrition, and determine allowed personal belongings, tools for hygiene and personal care. Determine level of activity including ambulation, level of supervision, visitors, and determine privileges based on behaviors and level of engagement by pt. SAFETY PLAN: 1. Will remain on suicide precautions. In Paper Clothes 2. Will remain in room under direct supervision of one-on-one staff at all times provided by CPSO, DONTAE, VOLCANOLOGY TEACHER product director. 3. May have paper cups, plates, finger foods as well as a cardboard spoon with which to eat meals. 4. Follow [facility] Management of the Admitted Behavioral Health Patient policy. 5. Shower permitted with supervision at RN discretion. 6. No personal belongings with the exception of eyeglasses. 7. Visitors: None at this time. 8. Activities: soft cart items, music tablet, television if available, and other activities at RN discretion. 9. Bathroom available in room without limitation on M/S. 10. Phone: May use [facility] hospital phone at RN discretion. May also use cell phone to call county attorney but the cell phone must be returned to nurse's station once the call is terminated. 11. Due to VOLUNTARY status, if patient wishes to leave [facility], staff will contact [facility] Crisis Screener ([phone]) and On-Call Supervisor [employer] ([phone]) as soon as possible. In the event of elopement, notify [facility] Police ([phone]). Patient is currently voluntarily at [facility] and seeking inpatient admission when a bed becomes available. [facility] Frontline Beef Grinder will continue seeking placement. Please contact the Exercise Instruct Supervisor [employer] ([phone]) and [facility] Beef Grinder ([phone]) for any needed changes in the Safety Plan. Safety plan has been provided to interdepartmental care team.
--- NOTE | 2021-12-22 14:04 | PDOC.CMPRO ---
- If Service Date Differs Date of service: 12/22/21 Time of Service: 14:04 Care Management Progress Note S/O: Asim is lying in bed when CM comes to meet with him. He is pleasant and talkative. He denies SI and HI but says he cannot return to his apartment in [place]. He talks about some of the issues he is having with his neighbors and with a gentleman who works at the congregation across the street from his apartment. Asim makes good eye contact, speech is of a normal rate and volume, mood is euthymic. A: Yony remains at [facility] awaiting a crisis bed placement. P: Asim is reassessed today by DARCI Gaspar OPTICAL LABORATORY TECHNICIAN service provider. Asim will remain at [facility] voluntarily and be reassessed by [facility] daily until a crisis bed placement can be secured for him. CM will continue to follow. - MH Services (Omit if N/A) Current MH Services: OPTICAL LABORATORY TECHNICIAN - Status Status: Voluntary - Reason for Wait Reason for Wait: Community Placement (Crisis Bed)
--- NOTE | 2021-12-22 18:20 | W.PM.PROGNOT ---
Date of Service Date of service: 12/22/21 Time of Service: 18:20 Assessment and Plan Assessment and plan (1) Suicidal ideation: Start date: 12/21/21 Status: Acute Assessment and plan: voluntary admission continue CPSO and safety plan (2) Deliberate self-cutting: Status: Acute Assessment and plan: superficial cuts over his forearm which did not require suturing. Tetanus status is not updated and he declines tetanus update at this time.?? No signs of infection. routine skin care and monitoring (3) Depression: Status: Chronic Assessment and plan: Continue outpatient medical therapy (4) Discharge planning issues: Status: Acute Assessment and plan: Patient is awaiting voluntary inpatient psychiatric care he is medically cleared for placement. discussed with Dr Gravey Subjective Subjective Patient reports: no new complaints, tolerating liquids well, tolerating a regular diet, voiding w/o difficulty and afebrile Interval history since last seen: remains medically stable with no behavioral issues Exam Const General: cooperative, healthy appearing, comfortable and no acute distress Orientation: alert and awake HENMT Head: normal to inspection, normocephalic and atraumatic Face and sinus: normal facial exam Mouth: moist mucous membranes Eyes Conjunctivae: conjunctivae normal Neck Neck: normal visual inspection and full ROM Resp Effort & Inspection: normal respiratory effort and able to speak in complete sentences Auscultation: clear to auscultation bilaterally Cardio Rate: regular rate Rhythm: regular rhythm GI Palpation: soft and nontender Back/Spine/Pelvis Back: No back tenderness Skin Rashes: no rashes Trauma: laceration (superficial left forearm, no infection) Neuro General: patient alert, patient awake, moves all extremities and no focal motor deficits Cognition: normal cognition Speech: speech normal Gait: normal gait Motor: muscle tone normal throughout Sensory Exam: no sensory deficits noted Extrem General: full ROM and capillary refill normal Other: Left forearm with multiple superficial abrasions. There is no laceration that requires closure. Neuro, vascular, tendon intact. No active bleeding. Normal radial pulse and capillary refill. Psych Appearance: grossly normal Mental Status: mental status grossly normal Speech and Movement: agitated Mood: anxious mood Affect: labile affect Attitude: cooperative Thought Process: normal Thought Content: suicidality Insight: limited Judgment: limited Objective Last Vital Signs Temp 36.2 C L 12/22/21 08:28 Pulse 70 12/22/21 08:28 Resp 16 12/22/21 08:28 BP 129/87 12/22/21 08:28 Pulse Ox 96 12/22/21 08:28
[2021-12-22 19:35] VITALS: BP 116/75; PULSE 72; RESP 16; TEMP 37.3; O2SAT 97
[2021-12-22] MEDS: Gabapentin 300 MG CAP PO (21:41)
[2021-12-22] MEDS: Melatonin 3 MG TAB 9 MG PO (21:41)
[2021-12-23] MEDS: OLANZapine 5 MG TAB PO (00:26)
[2021-12-23] MEDS: traZODone 50 MG TAB PO (00:26)
[2021-12-23] MEDS: Levothyroxine 100 MCG TAB PO (05:51)
[2021-12-23 11:27] VITALS: BP 104/73; PULSE 75; RESP 16; TEMP 36.7; O2SAT 96
[2021-12-23] MEDS: buPROPion-XL 150 MG TABCR PO (11:47)
[2021-12-23] MEDS: Omeprazole 20 MG CAPCR PO (11:47)
[2021-12-23] MEDS: Sertraline 100 MG TAB PO (11:48)
[2021-12-23] MEDS: Magnesium Oxide 400 MG TAB PO (11:48)
--- NOTE | 2021-12-23 12:40 | W.PM.DS.N ---
Date of service: 12/23/21 Time of Service: 12:40 DS: Diagnosis Discharge Diagnosis (1) Suicidal ideation: Status: Acute (2) Deliberate self-cutting: Status: Acute (3) Depression: Status: Chronic Discharge Plan Disposition Patient Disposition: [facility]ITY CARE FACILITY Condition: Stable Discharge Details Reason For Visit: Suicidal Ideation Admit Date/Time: 12/21/21 20:51 Admit Provider: Saravanan Ricardo Attending Provider: Saravanan Ricardo Primary Care Provider: Chung Perry [facility] Course Hospital Course: This is a 56-year-old male patient with a long history of depression with anxiety and bipolar mood disorder who reported to the ED having increased stress and vague suicidal thoughts with superficial cutting of his left forearm.? It did not require sutures and patient declined tetanus update.? He was seen in the ED and went home and then returned with the patient voluntarily wanting to have placement for inpatient psychiatric care with suicidal ideation.? He had a plan for safe outpatient treatment but decided he would not be safe.? He was retested for COVID before being brought in for inpatient and observation awaiting inpatient psychiatric care and remains negative.? He is a smoker but declines nicotine supplement.? He is a full code.? Mental health has been consulted and is following the patient. A bed has been secured at the care bed facility. He has had no behavioral issues and will be discharged to care bed with mental health as planned. no medication changes discharge discussed with Dr Garvey [place] Meds and New Rx's Prescriptions: Continued omeprazole 20 MG capsule,delayed release(DR/EC) 20 mg PO QAM magnesium oxide 400 mg (241.3 mg magnesium) tablet 400 mg PO QAM Label Comments: Pt states he does not know what his meds are - someone drops them off and he does not take them. States he flushes them down the toilet. sennosides [senna] 8.6 mg Tablet 8.6 mg PO BID PRN Label Comments: Pt states he does not know what his meds are - someone drops them off and he does not take them. States he flushes them down the toilet. hydroxyzine pamoate [Vistaril] 25 mg Capsule 25 mg PO BID Label Comments: Pt states he does not know what his meds are - someone drops them off and he does not take them. States he flushes them down the toilet. bupropion HCl 150 mg tablet extended release 24 hr 150 mg PO QAM Qty: 30 0RF trazodone 50 mg tablet 50 mg PO HS Label Comments: Pt states he does not know what his meds are - someone drops them off and he does not take them. States he flushes them down the toilet. olanzapine 5 mg tablet 7.5 mg PO QAM melatonin 3 mg tablet 10 mg PO HS Rx Instructions: Take 2 tablets by mouth at bedtime pravastatin 20 mg tablet 20 mg PO HS Label Comments: Pt states he does not know what his meds are - someone drops them off and he does not take them. States he flushes them down the toilet. gabapentin 300 mg capsule 300 mg PO .QHS Label Comments: Take 1 capsule by mouth at bedtime levothyroxine 100 mcg Tablet 100 mcg PO DAILY@0600 sertraline 100 mg tablet 100 mg PO QAM Discharge Instructions Instructions: Suicide Prevention (DC) Stand Alone Forms: Nursing Discharge Form Referrals: Chung Perry [Primary Care Provider] - 01/10/22 11:40 am Activity:: Activity as Tolerated Equipment/Supplies:: No Equipment Needed Diet:: As Tolerated Discharge Orders Discharge Orders: Discharge Order (Routine); Ordered 12/23/21 Ordered By: Maddie Awad Discharge Data Discharge Date/Time-TO BE ENTERED AT DEPARTURE: 12/23/21 12:55 DS: Summary Time Spent with Patient providing and/or coordinating discharge services: Less than 30 minutes Status at Discharge Functional status at discharge: independent ambulation Overall status at discharge: patient is not back to baseline Mental Status: mental status grossly normal Speech and Movement: agitated Mood: anxious mood Affect: labile affect Exam Const General: cooperative, healthy appearing, comfortable and no acute distress Orientation: alert and awake [facility] Head: normal to inspection, normocephalic and atraumatic Face and sinus: normal facial exam Mouth: moist mucous membranes Eyes Conjunctivae: conjunctivae normal Neck Neck: normal visual inspection and full ROM Resp Effort & Inspection: normal respiratory effort and able to speak in complete sentences Auscultation: clear to auscultation bilaterally Cardio Rate: regular rate Rhythm: regular rhythm GI Palpation: soft and nontender Back/Spine/Pelvis Back: No back tenderness Skin Rashes: no rashes Trauma: laceration (superficial left forearm, no infection) Neuro General: patient alert, patient awake, moves all extremities and no focal motor deficits Cognition: normal cognition Speech: speech normal Gait: normal gait Motor: muscle tone normal throughout Sensory Exam: no sensory deficits noted Extrem General: full ROM and capillary refill normal Other: Left forearm with multiple superficial abrasions. There is no laceration that requires closure. Neuro, vascular, tendon intact. No active bleeding. Normal radial pulse and capillary refill. Psych Appearance: grossly normal Mental Status: mental status grossly normal Speech and Movement: agitated Mood: anxious mood Affect: labile affect Attitude: cooperative Thought Process: normal Thought Content: suicidality Insight: limited Judgment: limited DS: Data Vitals/I&O Vitals and I&O: Vital Signs Temperature 36.7 C 12/23/21 11:27 Temperature Source Tympanic 12/23/21 11:27 Pulse 75 12/23/21 11:27 Pulse Rhythm Regular 12/23/21 12:36 Respiratory Rate 16 12/23/21 11:27 Respiratory Effort 12/23/21 12:36 Respiratory Depth Normal 12/23/21 12:36 Respiratory Pattern Normal 12/23/21 12:36 Blood Pressure 104/73 12/23/21 11:27 Blood Pressure Position Sitting 12/21/21 14:40 Pulse Oximetry 96 12/23/21 11:27 Oxygen Delivery Method Room Air 12/23/21 11:27 Oxygen Flow Rate 0 12/23/21 11:27 Pain Level 0 12/23/21 11:27 Intake & Output 12/22/21 12/23/21 12/23/21 23:59 11:59 23:59 Intake Total 1850 / 2330 720 / 720 Balance 1850 / 2330 720 / 720 Intake: Oral 1850 / 2330 720 / 720 Other: Urine Appearance Clear Clear Comment void x1, unable to measure void x1, unable to measure, not visually seen Voiding Methods Toilet Toilet PFSH All Active Problems (Updated 12/21/21 @ 23:50 by Saravanan Ricardo) Suicidal ideation (Acute) Depression (Chronic) Deliberate self-cutting (Acute) Other social stressor (Acute) Homicidal ideation (Acute) Nausea (Acute) Agitation (Acute) Hemoptysis (Acute) Shingles (Acute) Rash (Acute) Rib pain (Acute) Thumb injury (Acute) Abnormal chest CT (Acute) GERD (gastroesophageal reflux disease) (Chronic) DVT prophylaxis (Acute) Hypercholesterolemia (Chronic) Suicidal thoughts (Acute) Leukocytosis (Chronic) Tobacco abuse (Chronic) Suicidal ideation (Acute) Anxiety (Chronic) Hypothyroid (Chronic) Depression (Chronic) COPD (chronic obstructive pulmonary disease) (Chronic) Depression (Chronic) Bipolar disorder (Chronic) Discharge planning issues (Acute) Depression with suicidal ideation (Acute) Medical History Bipolar disorder Depressed Stress Suicidal ideations Suicidal thoughts Traumatic pneumothorax 2017, chest tube x2 Surgical History History of ankle surgery S/P thoracostomy tube placement Social History Smoking/Tobacco Use Status: Current every day Tobacco Type: cigarettes Smoking risk assessment performed?: Yes Alcohol Intake: never Drug use: Daily Substance use type: marijuana Current gender identity: male Do you feel safe at home: No (downstairs neighbors) Do you feel safe in your relationship?: Yes Additional Social history: Lives in a private apartment. Has [facility] case management
--- NOTE | 2021-12-23 12:56 | CMDISCH_ITS ---
- If Service Date Differs Date of service: 12/23/21 Time of Service: 12:56 LACE Index Scoring Tool - Questions: Length of Stay (in days): 2 Acuity (Admit via E.D.?): Yes E.D. Visits: 16 - Answers: Total Score: 9 Risk of Readmission: Low Risk Care Management Discharge Reason for Hospitalization: Suicidal ideation. Discharge Plan: Asim is discharged to the [facility] Care Bed. He will follow up with his PCP, [facility] providers, and plan of care as directed upon discharge from the Care Bed. He is transported to the crisis bed by Jaime VALENTINO TROMMEL TENDER service provider. Patient/Family Education Needs: Review of discharge instructions; discuss Ask Me Three. - MH Services (Omit if N/A) Current MH Services: TROMMEL TENDER - Disposition Disposition: Community Discharge (Care Bed)
== END 2021-12-23 12:55 | disposition designated cancer center or children's hospital (05) | DRG 885 ==
LOC: ER 21:01 → MS 21:48
PROVIDERS: Physician Assistant; Admitting Provider Family Medicine; Emergency Provider Physician Assistant; PCP Family Medicine; Visit Provider Family Medicine
DX: F31.9 Bipolar disorder, unspecified (principal); R45.851 Suicidal ideations; S51.812A Laceration without foreign body of left forearm, initial encounter; X78.9XXA Intentional self-harm by unspecified sharp object, initial encounter; F41.9 Anxiety disorder, unspecified; K21.9 Gastro-esophageal reflux disease without esophagitis; E78.00 Pure hypercholesterolemia, unspecified; F17.210 Nicotine dependence, cigarettes, uncomplicated; E03.9 Hypothyroidism, unspecified; J44.9 Chronic obstructive pulmonary disease, unspecified; Z79.899 Other long term (current) drug therapy
CPT/HCPCS: 80307; 87635; 99285; 99222; 99232; 99238

== ENCOUNTER 2022-01-26 15:10 | Inpatient (IN) | payer MEDICAID, SELFPAY ==
--- NOTE | 2022-01-26 15:02 | W.ED.GENAD ---
Discharge Plan Disposition Patient Disposition: STILL A PATIENT Condition: Stable Discharge Details Chief Complaint: Suicide-Atempt Clinical Impression: Thoughts of self harm Primary Care Provider: Chung Perry ED Provider: Jaime Ballard Home Meds and New Rx's Prescriptions: No Action omeprazole 20 MG capsule,delayed release(DR/EC) 20 mg PO QAM magnesium oxide 400 mg (241.3 mg magnesium) tablet 400 mg PO QAM Label Comments: Pt states he does not know what his meds are - someone drops them off and he does not take them. States he flushes them down the toilet. sennosides [senna] 8.6 mg Tablet 8.6 mg PO BID PRN Label Comments: Pt states he does not know what his meds are - someone drops them off and he does not take them. States he flushes them down the toilet. hydroxyzine pamoate [Vistaril] 25 mg Capsule 25 mg PO BID Label Comments: Pt states he does not know what his meds are - someone drops them off and he does not take them. States he flushes them down the toilet. bupropion HCl 150 mg tablet extended release 24 hr 150 mg PO QAM Qty: 30 0RF trazodone 50 mg tablet 50 mg PO HS Label Comments: Pt states he does not know what his meds are - someone drops them off and he does not take them. States he flushes them down the toilet. olanzapine 5 mg tablet 7.5 mg PO QAM melatonin 3 mg tablet 10 mg PO HS Rx Instructions: Take 2 tablets by mouth at bedtime pravastatin 20 mg tablet 20 mg PO HS Label Comments: Pt states he does not know what his meds are - someone drops them off and he does not take them. States he flushes them down the toilet. gabapentin 300 mg capsule 300 mg PO .QHS Label Comments: Take 1 capsule by mouth at bedtime levothyroxine 100 mcg Tablet 100 mcg PO DAILY@0600 sertraline 100 mg tablet 100 mg PO QAM Medical Decision Making 56-year-old male presents to the ER via EMS for thoughts of self-harm, has not harmed himself today. He contacted mental health who recommended coming to the ER for further evaluation. Using the Smart medical clearance form I have medically cleared the patient. I will obtain a rapid COVID test as well as a urine tox screen. Have also requested a mental health evaluation, interim care plan, and a CPSO Medical Records Medical records reviewed: Yes I reviewed the patient's medical records. HPI General Mode of arrival: EMS. Date/Time Provider Initiated Documentation: 01/26/22 15:14. Limitations to Documentation: no limitations. Information obtained by: patient and EMS. HPI Narrative: This is a 56-year-old gentleman with a past medical history that includes bipolar disorder, current smoker, presenting to the ER via EMS for self harming thoughts. Patient states that he has had stress of building, financial difficulties, unable to pay bills, he found out his dog has worms, and today he has been thinking about cutting his wrist. He has not done anything today to harm himself. He denies recent illness or trauma. Denies any alcohol or drug use. Patient states that he contacted the mental health crisis team who recommended coming to the ER for evaluation Related Data Allergies Allergy/AdvReac Type Severity Reaction Status Date / Time Sulfa (Sulfonamide Allergy Severe Swelling/Ed Unverified 01/26/22 15:21 Antibiotics) jostin General ABA: 2 Review of Systems Constitutional Constitutional: Denies fever(s) and Denies weakness Cardiovascular Cardiovascular: Denies chest pain Respiratory Respiratory: Reports cough (chronic) Gastrointestinal Gastrointestinal: Denies abdominal pain, Reports loose stools, Denies nausea, Denies vomiting and Reports other (Decreased appetite) Integumentary/Breasts Skin/Breast: Denies rash Neurologic Neurologic: Denies weakness Psychiatric Psychiatric: Denies homicidal ideation and Reports suicidal ideation Hematologic/Lymphatic Hematologic/Lymphatic: Denies easy bleeding and Denies easy bruising PFSH All Active Problems (Updated 01/26/22 @ 15:27 by RENAE Minaya) Thoughts of self harm (Acute) Suicidal ideation (Acute) Depression (Chronic) Deliberate self-cutting (Acute) Other social stressor (Acute) Homicidal ideation (Acute) Nausea (Acute) Agitation (Acute) Hemoptysis (Acute) Shingles (Acute) Rash (Acute) Rib pain (Acute) Thumb injury (Acute) Abnormal chest CT (Acute) GERD (gastroesophageal reflux disease) (Chronic) DVT prophylaxis (Acute) Hypercholesterolemia (Chronic) Suicidal thoughts (Acute) Leukocytosis (Chronic) Tobacco abuse (Chronic) Suicidal ideation (Acute) Anxiety (Chronic) Hypothyroid (Chronic) Depression (Chronic) COPD (chronic obstructive pulmonary disease) (Chronic) Depression (Chronic) Bipolar disorder (Chronic) Depression with suicidal ideation (Acute) Medical History Bipolar disorder Depressed Stress Suicidal ideations Suicidal thoughts Traumatic pneumothorax 2017, chest tube x2 Surgical History History of ankle surgery S/P thoracostomy tube placement Social History Smoking/Tobacco Use Status: Current every day Tobacco Type: cigarettes Smoking risk assessment performed?: Yes Alcohol Intake: never Drug use: Daily Substance use type: marijuana Current gender identity: male Do you feel safe at home: No (downstairs neighbors) Do you feel safe in your relationship?: Yes Additional Social history: Lives in a private apartment. Has [facility] case management Exam Const General: cooperative, healthy appearing, comfortable and no acute distress Orientation: alert, awake and oriented x3 HENMT Head: normal to inspection, normocephalic and atraumatic Eyes Conjunctivae: conjunctivae normal Neck Neck: normal visual inspection, full ROM, no meningeal signs, trachea midline and supple Resp Effort & Inspection: normal respiratory effort and able to speak in complete sentences Auscultation: clear to auscultation bilaterally Cardio Rate: regular rate Rhythm: regular rhythm GI Palpation: soft and nontender Back/Spine/Pelvis Back: No back tenderness Skin General skin exam: no rashes or lesions noted Neuro General: patient alert, patient awake, patient oriented x3, moves all extremities and no focal motor deficits Cognition: normal cognition Speech: speech normal Gait: normal gait Sensory Exam: no sensory deficits noted Extrem General: full ROM and capillary refill normal Other: Previous self harming scarring to bilateral forearms, no acute injuries. Psych Appearance: grossly normal Mental Status: mental status grossly normal
[2022-01-26 15:12] VITALS: BP 124/87; PULSE 87; RESP 14; TEMP 37.1; O2SAT 94
[2022-01-26 15:48] LABS: Source Nasal/Nares
[2022-01-26 16:24] LABS: COVID-19 PCR Negative (Negative)
--- NOTE | 2022-01-26 17:17 | ED.PROG_ITS ---
Date of service: 01/26/22 Time of Service: 16:00 Medical Decision Making Care transition myself from Jimy Ballard PA-C. Please see his initial note regarding history, mentation and exam. In brief, patient presents today with chief complaint of suicidal ideation. At the time I assumed care, patient is resting comfortably. He just spoke with mental health and plan at this time is for admission to inpatient psychiatric unit. Patient had been resting comfortably, sleeping on and off. Requesting night time medications. Continues to desire inpatient treatment. He does not know his medications, will call his provider. He reports his anxiety is increasing, will give ativan. Evening night medications were given to the patient. He continues to be pleasant, appropriate and wishing admission for suicidal ideation. Consulted with hospitalist who agrees to admission. Bed placement pending. Sign Out Sign Out Data: Sign Out Comment: Thoughts of self-harm. Medically cleared. Interim care plan and CPSO initiated. Awaiting COVID swab, urine tox screen, and mental health evaluation. Last updated by Jaime Ballard PA at 01/26/22 15:28 Discharge Plan Disposition Patient Disposition: [facility] INPATIENT Condition: Stable Discharge Details Clinical Impression: Thoughts of self harm Admit Date/Time: 01/26/22 22:22 Admit Provider: Chung Perry Attending Provider: Chung Perry Primary Care Provider: Chung Perry ED Provider: Kandace Gustafson Discharge Data Discharge Date/Time-TO BE ENTERED AT DEPARTURE: 01/26/22 22:47
--- NOTE | 2022-01-26 17:18 | CMSP_ITS ---
- If Service Date Differs Date of service: 01/26/22 Time of Service: 17:18 Care Management Safety Plan Status: Voluntary - Reason for Wait Reason for Wait: Inpatient Admission Chief Complaint: Asim presents in the ED via EMS for suicidal ideation. Per provider note, he reports financial difficulties and increasing stress at home, culminating into thoughts of harming himself. Asim receives services through the CART ATTENDANT Program at [facility] and is well known to [facility] staff. He has a lengthy psychiatric history with multiple hospitalizations and crisis bed admissions. CM will continue to follow. VOLUNTARY FOR INPATIENT PSYCHIATRIC STABILIZATION. Patient is appropriate in all interactions since arriving at [facility]; Pt has demonstrated appropriate coping and communication skills, has articulated his or her needs and concerns and is fully engaged during staff interactions. Safety plan has been established with patient, and care team, to adhere to patient goals, identify restrictions based on behavioral status, address nut rition, and determine allowed personal belongings, tools for hygiene and personal care. Determine level of activity including ambulation, level of supervision, visitors, and determine privileges based on behaviors and level of engagement by pt. SAFETY PLAN: 1. Will remain on suicide precautions. In Paper Clothes 2. Will remain in room under direct supervision of one-on-one staff at all times provided by CPSO, PYTHON ENGINEER, SCHOOL SPEECH THERAPIST utility bill collector. 3. May have paper cups, plates, finger foods as well as a cardboard spoon with which to eat meals. 4. Follow [facility] Management of the Admitted Behavioral Health Patient policy. 5. Shower permitted with supervision at RN discretion. 6. No personal belongings with the exception of eyeglasses. 7. Visitors: None at this time. 8. Activities: soft cart items, music tablet, television if available, and other activities at RN discretion. 9. Bathroom privileges with escort in the ED; available in room without limitation on M/S. 10. Phone: May use [employer] hospital phone at RN discretion. 11. Due to VOLUNTARY status, if patient wishes to leave [facility], staff will contact [facility] Crisis Screener ([phone]) and On-Call Spar Machine Operator Helper ([phone]) as soon as possible. In the event of elopement, notify [facility] Police ([phone]). Patient is currently voluntarily at [facility] and seeking inpatient admission when a bed becomes available. [facility] Frontline Residential Mortgage Underwriter will continue seeking placement. Please contact the Adolescent Psychiatrist Spar Machine Operator Helper ([phone]) and [facility] Residential Mortgage Underwriter ([phone]) for any needed changes in the Safety Plan. Safety plan has been provided to interdepartmental care team.
[2022-01-26] MEDS: LORazepam 1 MG TAB PO (20:10)
--- NOTE | 2022-01-26 20:23 | NUR.NOTE ---
Patient used bathroom and gave us a urine sample that was ordered. Nursing Note:
[2022-01-26 20:26] LABS: *AMPHETAMINES SCREEN URINE Negative (Negative); *BARBITURATES SCREEN URINE Negative (Negative); *BENZODIAZEPINES SCREEN URINE Negative (Negative); Cannabinoids THC Positive (Negative); Cocaine Screen,Urine Negative (Negative); METHADONE URINE SCREEN Negative (Negative); OPIATES URINE SCREEN Negative (Negative)
[2022-01-26 20:28] LABS: Tricyclic Antidepressants Negative (Negative)
[2022-01-26] MEDS: traZODone 50 MG TAB PO (22:24)
[2022-01-26] MEDS: OLANZapine 10 MG TAB PO (22:24)
[2022-01-26 22:43] VITALS: BP 107/71; PULSE 77; RESP 18; TEMP 36.9; O2SAT 94
--- NOTE | 2022-01-26 23:14 | HPE_ITS ---
Date of service: 01/26/22 Time of Service: 23:14 Assessment and Plan Assessment and plan (1) Depression with suicidal ideation: Status: Acute Assessment and plan: Asim is voluntarily admitted for safety until psychiatric bed available. He has an observer. No acute medical issues. Labs from December reviewed. He is clear for psychiatric placement when available. (2) COPD (chronic obstructive pulmonary disease): Status: Chronic Assessment and plan: Inactive. REassess if he gets symtpoms. Smoking cessation. (3) Bipolar disorder: Status: Chronic Assessment and plan: See above. Will continue outpatient medication. Qualifiers: Active/Remission status: currently active Current bipolar episode type: hypomanic Qualified Code(s): F31.0 - Bipolar disorder, current episode hypomanic (4) Tobacco abuse: Status: Chronic Assessment and plan: NRT if/when he requests. (5) DVT prophylaxis: Status: Acute Assessment and plan: He is not acutely ill and is mobile, no chemical prophylaxis. Encourage walking. History of Present Illness History of Present Illness Chief Complaint: depression Narrative: 56 yo M with history of bipolar depression well known to [facility] and with multiple admissions for psychiatric care presenting for mental health evaluation for depression with suicidal thoughts. He has been struggling with finanical difficulty and stress at home. See mental health crisis note. Inpatient psychiatric care was recommended and Asim decided to stay voluntarily, medical clearance requested. He feels well physically, eating and drinking normally. He is sleeping. He feels safe here and doesn't think he will try to hurt himself. He is not seeing or hearing things. No recent alcohol use, no drug use other than cannabis. No recent cutting or other self harm. Review of Systems Constitutional Constitutional: Denies anorexia, Denies chills, Denies difficulty sleeping, Denies fever(s), Denies headache(s) and Denies weakness Eyes Eyes: Denies change in vision and Denies irritation ENT Ears, Nose, Mouth, and Throat: Denies dizziness, Denies headache(s), Denies nasal congestion, Denies nasal discharge and Denies sore throat Cardiovascular Cardiovascular: Denies chest pain, Denies palpitations and Denies dyspnea Respiratory Respiratory: Denies cough, Denies excessive phlegm production, Denies dyspnea and Denies wheezing Gastrointestinal Gastrointestinal: Denies abdominal pain, Denies constipation, Denies heartburn, Denies diarrhea, Denies nausea and Denies vomiting Genitourinary Genitourinary: Denies hematuria, Denies dysuria and Denies urinary incontinence Musculoskeletal Musculoskeletal: Denies arthralgias Integumentary/Breasts Skin/Breast: Denies rash and Denies skin ulcer Neurologic Neurologic: Denies dizziness, Denies headache(s), Denies sensory deficit and Denies weakness Comments: feels a little shakey Psychiatric Psychiatric: Reports as per HPI Endocrine Endocrine: Denies palpitations Hematologic/Lymphatic Hematologic/Lymphatic: Denies easy bleeding Allergic/Immunologic Allergic/Immunologic: Denies wheezing PFSH All Active Problems (Updated 01/26/22 @ 23:27 by Chung Perry) Thoughts of self harm (Acute) Suicidal ideation (Acute) Depression (Chronic) Deliberate self-cutting (Acute) Other social stressor (Acute) Agitation (Acute) Hemoptysis (Acute) Thumb injury (Acute) Abnormal chest CT (Acute) GERD (gastroesophageal reflux disease) (Chronic) DVT prophylaxis (Acute) Hypercholesterolemia (Chronic) Suicidal thoughts (Acute) Leukocytosis (Chronic) Tobacco abuse (Chronic) Suicidal ideation (Acute) Anxiety (Chronic) Depression (Chronic) COPD (chronic obstructive pulmonary disease) (Chronic) Depression (Chronic) Bipolar disorder (Chronic) Depression with suicidal ideation (Acute) Medical History (Updated 01/26/22 @ 23:27 by Chung Perry) Bipolar disorder Depressed Shingles Stress Suicidal ideations Suicidal thoughts Traumatic pneumothorax 2017, chest tube x2 Surgical History History of ankle surgery S/P thoracostomy tube placement Social History Smoking/Tobacco Use Status: Current every day Tobacco Type: cigarettes Smoking risk assessment performed?: Yes Alcohol Intake: never Drug use: Daily Substance use type: marijuana Current gender identity: male Do you feel safe at home: No (downstairs neighbors) Do you feel safe in your relationship?: Yes Additional Social history: Lives in a private apartment. Has [facility] case management Meds Allergies and Home Medications Allergies Allergy/AdvReac Type Severity Reaction Status Date / Time Sulfa (Sulfonamide Allergy Severe Swelling/Ed Unverified 01/26/22 15:21 Antibiotics) jostin Home Medications Medication Instructions Recorded Confirmed Type bupropion HCl 150 mg 24 hr tablet, 150 mg PO QAM 01/26/22 01/26/22 History extended release hydroxyzine HCl 25 mg tablet 25 mg PO BID PRN 01/26/22 01/26/22 History olanzapine 10 mg tablet 7.5 mg PO QAM 01/26/22 01/26/22 History olanzapine 10 mg tablet (Zyprexa) 10 mg PO DAILY 01/26/22 01/26/22 History sennosides 8.6 mg tablet (senna) 1 tab PO BID PRN 01/26/22 01/26/22 History trazodone 50 mg tablet 50 mg PO DAILY 01/26/22 01/26/22 History Exam Narrative Exam Narrative: GEN: Alert and oriented, pleasent and cooperative, responds tersely but appropriately. Initially lying in bed with eyes closed. No acute distress at r est. HEENT: Head atraumatic. Conjunctiva clear, no icterus. PEERL, EOMI. no rhinorrhea. MMM, OP benign. Neck is supple with no masses or lymphadenopathy, trachea midline LUNGS: CTAB with normal effort CV: RRR with no murmurs, gallops, or rubs. ABD: +BS, soft, NT/ND EXT: no cyanosis, clubbing, or edema MSK: No joint redness or swelling NEURO: CN 2-12 grossly intact. Normal movement of 4 extremities. Normal speech and coordination SKIN: No rashes or open wounds except 2 excoriation on top of head. old cutting scars, none fresh. PSYCH: mood and affect depressed. Results Labs Labs: Laboratory Results - last 24 hr 01/26/22 01/26/22 15:43 20:00 Urine Opiates Screen Negative Urine Methadone Screen Negative Ur Barbiturates Screen Negative Ur Tricyclics Screen Negative Ur Amphetamines Screen Negative U Benzodiazepines Scrn Negative Urine Cocaine Screen Negative Ur THC Screen Positive A COVID-19 Source Nasal/Nares SARS-CoV-2 (PCR) Negative Last Vital Signs Temp 36.9 C 01/26/22 22:43 Pulse 77 01/26/22 22:43 Resp 18 01/26/22 22:43 BP 107/71 01/26/22 22:43 Pulse Ox 94 01/26/22 22:43
--- NOTE | 2022-01-27 08:09 | NUR.NOTE ---
This speech writer went into room and woke patient due to his breakfast being delivered. Patient politely refused breakfast at this time. This speech writer let patient know to please let me know when he was ready for it and I would bring it to him. Nursing Note:
[2022-01-27] MEDS: buPROPion-XL 150 MG TABCR PO (09:14)
[2022-01-27] MEDS: OLANZapine 2.5 MG TAB 7.5 MG PO (09:14)
[2022-01-27 09:18] VITALS: BP 116/75; PULSE 85; RESP 12; TEMP 36.7; O2SAT 95
--- NOTE | 2022-01-27 09:28 | NUR.NOTE ---
Patient states that if his GOLF CLUB ASSEMBLER field nurse case manager comes here and doesn't help him get his dog to the vet that she will end up in the ER downstairs with a bullet in her head. RN notified. Nursing Note:
--- NOTE | 2022-01-27 09:32 | NUR.NOTE ---
Patient states that once he gets his coffee he is going to leave. RN notified Nursing Note:
--- NOTE | 2022-01-27 09:40 | NUR.NOTE ---
Nursing Note: At approximately 0930 on 01/27/22, this RN went to the pt.'s room to speak with the pt. per CPSO request. Per CPSO, pt. states that he is going to leave the hospital once he has finished drinking his coffee. In speaking with the RN, pt. states that he doesn't want to deal with [facility] today; I don't want my blood pressure skyrocketing this morning. RN asking pt. if he would be willing to speak with his housekeeper child care. Pt. agrees to speak with his housekeeper child care. RN went and spoke with the care management team, identified that Jeimy Stubbs is his housekeeper child care today, and then one of the other members of the care management team notified Jeimy of the pt.'s request to speak with her. RN then went and notified the pt. that Jeimy had been contacted and would be up to speak with him as soon as she is available. Pt. verbalized understanding.
--- NOTE | 2022-01-27 09:51 | NUR.NOTE ---
Food services here to take patients lunch order. This rfp writer let patient know that food services was here to take his lunch order, he politely refused. This rfp writer told food services to just send up something simple to eat, and that this rfp writer would offer if to him when delivered. Nursing Note:
--- NOTE | 2022-01-27 10:20 | NUR.NOTE ---
Julissa, healthcare applications analyst, in room speaking with patient. Nursing Note:
--- NOTE | 2022-01-27 10:48 | W.PM.PROGNOT ---
Date of Service Date of service: 01/27/22 Time of Service: 10:49 Objective Last Vital Signs Temp 36.7 C 01/27/22 09:18 Pulse 85 01/27/22 09:18 Resp 12 01/27/22 09:18 BP 116/75 01/27/22 09:18 Pulse Ox 95 01/27/22 09:18 Laboratory Results - last 24 hr 01/26/22 01/26/22 15:43 20:00 Urine Opiates Screen Negative Urine Methadone Screen Negative Ur Barbiturates Screen Negative Ur Tricyclics Screen Negative Ur Amphetamines Screen Negative U Benzodiazepines Scrn Negative Urine Cocaine Screen Negative Ur THC Screen Positive A COVID-19 Source Nasal/Nares SARS-CoV-2 (PCR) Negative
--- NOTE | 2022-01-27 11:13 | NUR.NOTE ---
Tamie from [facility] in room. Nursing Note:
--- NOTE | 2022-01-27 11:49 | NUR.NOTE ---
PERSONNEL RESEARCH SCIENTIST in room Tamie from mental health is gone. Nursing Note:
--- NOTE | 2022-01-27 11:55 | NUR.NOTE ---
ANALYTICAL CHEMISTRY TEACHER left Nurse practitioner in room now. Nursing Note:
--- NOTE | 2022-01-27 12:04 | DSE_ITS ---
Date of service: 01/27/22 Time of Service: 12:04 DS: Diagnosis Discharge Diagnosis (1) Depression with suicidal ideation: Status: Acute (2) COPD (chronic obstructive pulmonary disease): Status: Chronic (3) Bipolar disorder: Status: Chronic (4) Tobacco abuse: Status: Chronic Discharge Plan Disposition Patient Disposition: HOME Condition: Stable Discharge Details Reason For Visit: Suicidal Ideation Admit Date/Time: 01/26/22 22:22 Admit Provider: Chung Perry Attending Provider: Chung Perry Primary Care Provider: Chung Perry Hospital Course Hospital Course: This is a 56 yo male patient with a history of bipolar depression, well known to [facility], with multiple admissions for psychiatric care presented to the [facility] emergency room for mental health evaluation for depression with suicid al thoughts.? He has been struggling with financial difficulty and stress at home. ? See mental health crisis note.? Inpatient psychiatric care was recommended. Asim decided to stay voluntarily, he had stable vital signs and was put on observation status on the medical surgical floor with a CPSO. He feels well physically, eating and drinking normally.? He is sleeping.? He feels safe here and doesn't think he will try to hurt himself.? He is not seeing or hearing things.? No recent alcohol use, no drug use other than cannabis.? No recent cutting or other self-harm. He contracted for safety and was discharged to home with follow up from [facility]. ? Home Meds and New Rx's Prescriptions: Continued hydroxyzine HCl 25 mg tablet 25 mg PO BID PRN olanzapine [Zyprexa] 10 mg Tablet 10 mg PO DAILY bupropion HCl 150 mg tablet extended release 24 hr 150 mg PO QAM olanzapine 10 mg tablet 7.5 mg PO QAM sennosides [senna] 8.6 mg tablet 1 tab PO BID PRN trazodone 50 mg tablet 50 mg PO DAILY Discharge Instructions Instructions: Depression (DC) Additional Instructions: RIM ROLLER SETTER will check in with you twice a day by phone; any thoughts of hurting yourself, return to the emergency department. Continue your current medications - there are no changes. Stand Alone Forms: Nursing Discharge Form Referrals: Chung Perry [Primary Care Provider] - 01/31/22 10:10 am Activity:: Activity as Tolerated Equipment/Supplies:: No Equipment Needed Diet:: As Tolerated Discharge Orders Discharge Orders: Discharge Order (Routine); Ordered 01/27/22 Ordered By: Latesha Salinas Discharge Data Discharge Date/Time-TO BE ENTERED AT DEPARTURE: 01/27/22 13:35 DS: Summary Time Spent with Patient providing and/or coordinating discharge services: Less than 30 minutes Status at Discharge Functional status at discharge: independent ambulation Overall status at discharge: patient is back to baseline Mental Status: mental status grossly normal Speech and Movement: speech and movement normal Mood: congruent mood Affect: normal affect Exam Narrative Exam Narrative: GEN: Alert and oriented, pleasant and cooperative, responds appropriately. Sitting cross legged on the bed. No acute distress at rest. HEENT: Head atraumatic. Conjunctiva clear, no icterus. PERRL, EOMI. no rhinorrhea. MMM. Neck is supple with no masses or lymphadenopathy, trachea midline LUNGS: CTAB with normal effort CV: RRR with no murmurs, gallops, or rubs. ABD: +BS, soft, NT/ND EXT: no cyanosis, clubbing, or edema MSK: No joint redness or swelling NEURO: CN 2-12 grossly intact. Normal movement of 4 extremities. Normal speech and coordination SKIN: No rashes or open wounds, noted 2 excoriations on top of head, old cutting scars bilateral lower arms L>R with a couple of small (<0.5 cm) round lesions from scratching - do not look like mcleod PSYCH: mood and affect depressed. Psych Mental Status: mental status grossly normal Speech and Movement: speech and movement normal Mood: congruent mood Affect: normal affect DS: Data Vitals/I&O Vitals and I&O: Vital Signs Temperature 36.7 C 01/27/22 09:18 Temperature Source Tympanic 01/27/22 09:18 Pulse 85 01/27/22 09:18 Pulse Rhythm Regular 01/27/22 09:00 Respiratory Rate 12 01/27/22 09:18 Respiratory Effort Non-Labored 01/27/22 09:00 Respiratory Depth Normal 01/27/22 09:00 Respiratory Pattern Normal 01/27/22 09:00 Blood Pressure 116/75 01/27/22 09:18 Pulse Oximetry 95 01/27/22 09:18 Oxygen Delivery Method Room Air 01/27/22 09:18 Oxygen Flow Rate 0 01/27/22 09:18 Pain Level 0 01/27/22 09:18 Comment 01/27/22 09:18 Intake & Output 01/26/22 01/27/22 01/27/22 23:59 11:59 23:59 Weight 79.746 kg Other: Voiding Methods Toilet Data Completed and Pending Labs on day of discharge: Labs from last 24 hours 01/26/22 01/26/22 20:00 15:43 Urine Opiates Screen Negative Urine Methadone Screen Negative Ur Barbiturates Screen Negative Ur Tricyclics Screen Negative Ur Amphetamines Screen Negative U Benzodiazepines Scrn Negative Urine Cocaine Screen Negative Ur THC Screen Positive A COVID-19 Source Nasal/Nares SARS-CoV-2 (PCR) Negative PFSH All Active Problems (Updated 01/28/22 @ 00:01 by STEVIE LEE) Suicidal ideation (Acute) Depression (Chronic) Deliberate self-cutting (Acute) Other social stressor (Acute) Agitation (Acute) Hemoptysis (Acute) Thumb injury (Acute) Abnormal chest CT (Acute) GERD (gastroesophageal reflux disease) (Chronic) Hypercholesterolemia (Chronic) Suicidal thoughts (Acute) Leukocytosis (Chronic) Tobacco abuse (Chronic) Suicidal ideation (Acute) Anxiety (Chronic) Depression (Chronic) COPD (chronic obstructive pulmonary disease) (Chronic) Depression (Chronic) Bipolar disorder (Chronic) Depression with suicidal ideation (Acute) Medical History (Updated 01/28/22 @ 00:01 by STEVIE LEE) Bipolar disorder Depressed Shingles Stress Suicidal ideations Suicidal thoughts Traumatic pneumothorax 2017, chest tube x2 Surgical History History of ankle surgery S/P thoracostomy tube placement Social History Smoking/Tobacco Use Status: Current every day Tobacco Type: cigarettes Smoking risk assessment performed?: Yes Alcohol Intake: never Drug use: Daily Substance use type: marijuana Current gender identity: male Do you feel safe at home: No (downstairs neighbors) Do you feel safe in your relationship?: Yes Additional Social history: Lives in a private apartment. Has [facility] case management
--- NOTE | 2022-01-27 12:05 | NUR.NOTE ---
Patient observation on worklist must of been completed by someone. Patient is currently sitting on bed, eating lunch, waiting for discharge papers to be completed. Will document here if any further documentation is needed Nursing Note:
--- NOTE | 2022-01-27 13:12 | PDOC.CMDIS ---
- If Service Date Differs Date of service: 01/27/22 Time of Service: 13:12 LACE Index Scoring Tool - Questions: Length of Stay (in days): 1 Acuity (Admit via E.D.?): Yes E.D. Visits: 12 - Answers: Total Score: 8 Risk of Readmission: Low Risk Care Management Discharge Reason for Hospitalization: Suicidal ideation. Discharge Plan: Asim is discharged home on a safety plan. He will check-in with COMPUTER APPLICATIONS DEVELOPER staff by phone twice a day over the weekend and will follow up with his [facility] providers and plan of care as directed. He is transported home by [facility] via private passenger coach driver, coordinated by CM. Patient/Family Education Needs: Review of discharge instructions, discuss Ask Me Three. Services Needed at Discharge: Transportation ([facility]) - MH Services (Omit if N/A) Current MH Services: COMPUTER APPLICATIONS DEVELOPER
--- NOTE | 2022-01-27 14:05 | PDOC.MHPN2 ---
Date of service: 01/27/22 Time of Service: 14:10 PHQ-9 Over the last 2 weeks, how often have you been bothered by any of the following problems? 1. Little interest or pleasure in doing things: several days 2. Feeling down, depressed, or hopeless: nearly every day 3. Trouble falling or staying asleep, or sleeping too much: nearly every day 4. Feeling tired or having little energy: nearly every day 5. Poor appetite or overeating: nearly every day 6. Feeling bad about yourself - or that you are a failure or have let yourself and your family down: several days 7. Trouble concentrating on things, such as reading the newspaper or watching television: nearly every day 8. Moving or speaking so slowly that other people could have noticed? - Or the opposite - being so fidgety or restless that you have been moving around a lot more than usual: nearly every day 9. Thoughts that you would be better off or of hurting yourself in some way: several days Total score: 21 If you checked off any problems, how difficult have these problems made it for you to do your work, take care of things at home, or get along with other people?: very difficult Source: Developed by Drs. Jewel Vallejo, Marita Gonzalez, Zac Mathur and colleagues, with an educational malu from [employer]. Suicide Severity Rate CSSRS Have you wished you were or wished you could go to sleep and not wake up?: Yes Have you actually had any thoughts of killing yourself?: Yes CSSRS2 Have you been thinking about how you might do this?: Yes Have you had these thoughts and had some intention of acting on them?: Yes Have you started to work out or worked out the details of how to kill yourself? Do you intend to carry out this plan?: No CSSRS3 Have you ever done anything, started to do anything or prepared to do anything to end your life?: Yes CSSRS4 Was this within the past three months?: Yes Screening Score Total Score: 8 Screening: Positive Mental Health Emergency Note Release [facility] release signed:: No Reason for Visit Client presented to the ED on 01.26.2022 with complaints of SI. He was seeking voluntary placement. In the last 2 weeks has the pt presented for ES prior to today?: Unknown Client Information Client is: [employer] Well Housed: Yes Non Suicidal Self Injury Current: No History: yes, Client has a long history of suicidal tendencies and more recently a history of making statements of suicide when he is frustrated and overwhelmed. Safety Risk/Harm to Self or Others Current Ideation to Harm Self or Others: No Risk: Does risk to harm exist?: No Risk: Low Risk Duty to warn indicated: No Asssessment/Mental Status Appearance: Disheveled Attitude: Cooperative, Friendly and Hostile (Client is cooperative and friendly with this clinician however, is hostile toward his treatment team as he does not believe his needs are being met. ) Behavior: Unremarkable Speech: Normal Affect: Normal Mood: Stressed, Happy and Irritable Thought process: Goal directed Hallucinations: No Delusions: No Attention: Unremarkable Perception: Not impaired Orientation: Fully orientated Memory: Intact Insight: Good Judgement: Good Neurovegetative Symptoms Sleep: Increase Appetitie: Decrease Interests: Decrease Energy: Decrease Libido: Not applicable Substance Use: Do you use nicotine?: Yes Have you used substances in the last 7 days?: yes, Client smokes THC constantly on a daily basis as it gives him a creative mind and helps him deal with his stress. Additional Issues: Assaultive/Threatening Behavior: No Medical Concerns: No Client engaged in active self harm w/weapon: No Threatening to run away: No Child reported abuse/neglect: No Voluntarily presenting for services: Yes Domestic violence is a concern: No Extreme Psychosis or extreme behavior is present: No Impression Client is a known [employer] client who presented today as calm, polite, insightful and respectful. He has a long history of decompensating when he is faced with stressors or when he feels he has been done wrong. In these instances he tends to go into a fight or fight state and typically his response if to fight. Client has a good sense of humor and is very social so enjoys company to which he feels he is lacking significantly right now and wants more of this from his [employer] team. He reports feeling frustrated with his director of casework department noting that they shut down every request/need I have and wants them to be fired. Resources Reosurces reviewed and given:: [facility] and [facility] Plan/Disposition Recommended Disposition: PCP/Office visit (Will set up appointment to discuss his medical concerns. ), [employer] ([employer] director of casework department arrived as assessment was ending. ), Therapy (Next appointment . @ 2pm) and Psych Screening (Meets with Do Zamora on . @ 3pm). Plan: Client is wishing to go home. [facility] MA[facility] will outreach to client twice daily to check in with him. This clinician spoke with care management to see if we could get him a couple of bagged lunches to go home and [facility] [employer] will also take him to [employer] [place] to get some items as well. Client agreed to using coping skills like rearranging his apartment, playing on his computer and watching old movies as a way to cope when he is feeling like he is entering a crisis. He notices this when symptoms like losing interest and decompensation of self-care start to happen. He identified his friends Kaylee and Curtis as his supports he could ask for help from as well as [facility] if he is in crisis. He agreed to twice a day phone check ins although would prefer a face to face check in twice a day he understands that this may not be feasible. Reports/communication Outcome discussed with: Other (Medical and care mangagement team treating him. )
== END 2022-01-27 13:35 | disposition home or self-care (01) | DRG 885 ==
LOC: ER 22:36 → MS 22:45
PROVIDERS: Physician Assistant; Admitting Provider Family Medicine; Emergency Provider Physician Assistant; PCP Family Medicine; Visit Provider Family Medicine
DX: F31.0 Bipolar disorder, current episode hypomanic (principal); R45.851 Suicidal ideations; J44.9 Chronic obstructive pulmonary disease, unspecified; F17.210 Nicotine dependence, cigarettes, uncomplicated; E78.00 Pure hypercholesterolemia, unspecified; K21.9 Gastro-esophageal reflux disease without esophagitis; F41.9 Anxiety disorder, unspecified
CPT/HCPCS: 80307; 87635; 99285; 99238; 99284

== ENCOUNTER 2022-02-14 13:06 | Emergency (ER) | payer MEDICAID, SELFPAY ==
[2022-02-14 13:08] VITALS: BP 106/72; PULSE 85; RESP 18; O2SAT 97
[2022-02-14 13:31] LABS: Bilirubin Negative (Negative); Blood Negative (Negative); Clarity Clear (Clear); Glucose Negative (Negative); Ketones Negative (Negative); Leukocyte Esterase Negative (Negative); Nitrite Negative (Negative); Urobilinogen 0.2 EU/dL (Up TO 0.2); pH 6.5 (5-8)
--- NOTE | 2022-02-14 13:50 | W.ED.GENAD ---
Discharge Plan Disposition Patient Disposition: HOME Condition: Stable Discharge Details Clinical Impression: Right lower lobe pneumonia, Left flank pain Primary Care Provider: Chung Perry ED Provider: Jaime Ballard Home Meds and New Rx's Prescriptions: New doxycycline hyclate 100 mg capsule 100 mg PO BID Qty: 20 0RF No Action hydroxyzine HCl 25 mg tablet 25 mg PO BID PRN olanzapine [Zyprexa] 10 mg Tablet 10 mg PO DAILY bupropion HCl 150 mg tablet extended release 24 hr 150 mg PO QAM olanzapine 10 mg tablet 7.5 mg PO QAM sennosides [senna] 8.6 mg tablet 1 tab PO BID PRN trazodone 50 mg tablet 50 mg PO DAILY Discharge Instructions Instructions: Flank Pain (ED), Pneumonia (ED) Additional Instructions: Doxycycline as directed. [id number] Tylenol and/or Motrin as directed for discomfort. Gentle stretching as tolerated. Cool and/or warm compresses every 2 hours for 20 minutes. Please watch for new or worsening symptoms and return to the ER for any concerns. Lastly, please contact your primary care provider tomorrow to discuss your ER visit and need for outpatient reevaluation. Medical Decision Making 56-year-old gentleman reports that he was moving objects about a week or so ago when he injured his left lower back, seen at [facility], diagnosed with a pinched nerve, symptoms are worsening, now radiating to his abdomen. Clinically he appears well, nontoxic. While there is certainly a musculoskeletal component of the examination, the fact that his discomfort is now radiating to his flank and abdomen, I do believe this warrants further evaluation. Will obtain IV access, obtain routine screening laboratory values, urinalysis, and give IV Toradol Patient reports no significant improvement with IV Toradol Laboratory values are grossly unremarkable. Discussed work-up with patient. Because his laboratory values are unremarkable, no clear source of his discomfort, no improvement with Toradol, he would like to pursue CT imaging. CT imaging of the abdomen and pelvis with IV contrast to be obtained Discussed CT findings with patient. No clear evidence of etiology of his left back-flank pain. We did discuss his infiltrate in his right lower lobe, he on second questions if his cough is slightly worse than baseline and reported 2 days ago he did not overall feel well. We will treat with doxycycline for potential pneumonia. Standard discharge and return precautions were provided. Patient understands, is agreeable to this plan, and has no additional questions or concerns upon discharge. This documentation was generated using [employer] dictation system, please disregard any oddities of phrase or misspellings. Medical Records Medical records reviewed: Yes I reviewed the patient's medical records. Imaging Data Radiologic Study: Attestation: I personally reviewed and interpreted this imaging study as follows: Imaging: CT Scan Radiologist's impression: This report is currently processing and HAS NOT BEEN OFFICIALLY SIGNED BY THE PHYSICIAN - ESTIMATED TIME OF APPROVAL IS 02/14/2022 15:50. Exam(s) CT ABDOMEN PELVIS W EXAM: CT ABDOMEN PELVIS W CLINICAL HISTORY: L back/abd pain TECHNIQUE: Imaging Protocol: Axial computed tomography images with coronal and sagittal reformatted images were created and reviewed CONTRAST MATERIAL: Intravenous: Omnipaque 350 Contrast volume:100 mL Oral: No COMPARISON: CT RENAL COLIC WO CONTRAST from 06/22/[address] CHEST PE CTA from 07/20/2020 FINDINGS: ABDOMEN: Lung Bases: Emphysematous changes are seen in the lung bases. There is an infiltrate in the right lower lobe. Liver: Normal density. There are several tiny hypodensities in the liver. They are too small for further characterization but likely reflect small cysts. No suspicious hepatic masses are seen. Portal, Superior Mesenteric, and Splenic Veins: Unremarkable. Gallbladder and Biliary Tract: No radiodense calculus or dilation. Pancreas: Normal density, no abnormal calcifications or inflammatory process. Spleen: Normal. Adrenals: No masses seen. Kidneys: Normal size, contour and axis. There is a 2 mm nonobstructing stone in the lower pole of the left kidney. No masses seen. Abdominal Aorta: Abdominal portion non-dilated. Atherosclerosis is present. Bowel: No obstruction or bowel wall thickening. No evidence of appendicitis. There are fluid-filled loops of small and large bowel which can be seen with a diarrheal illness. Peritoneal Cavity: No ascites, collection or mesenteric inflammatory response. No free air. Lymph Nodes: Within normal limits. Bones: Within normal limits for the patient's age. There are degenerative changes seen in the spine but no significant central spinal canal or neural foraminal stenosis is present. Soft Tissues: Unremarkable. PELVIS: Bladder: Symmetric distention, no gross wall thickening. Reproductive Organs: Enlarged prostate gland. Lymph Nodes: Within normal limits. Bones: Within normal limits for the patient's age. IMPRESSION: 1. Small right lower lobe infiltrate which may represent pneumonia. Please correlate clinically. 2. Fluid-filled loops of small and large bowel which can be seen with a diarrheal illness. 3. Left nephrolithiasis but no hydronephrosis. 4. Degenerative changes in the spine but no evidence to suggest central spinal canal or neural foraminal stenosis. 5. Results of this exam have been verbally communicated with provider. Lab Data Lab results reviewed: Yes I reviewed the patient's lab results. Labs: Laboratory Tests Range/Units 02/14/22 02/14/22 02/14/22 13:20 13:58 13:58 WBC (4.4-10.8) 10^3/uL 10.49 RBC (4.36-5.78) 10^6/uL 5.45 Hgb (13.5-17.5) g/dL 14.1 Hct (40.0-50.0) % 42.9 MCV (80-95) fL 79 L MCH (27.0-33.0) pg 25.9 L MCHC (32.0-36.0) % 32.9 RDW (11.8-14.1) % 14.9 H Plt Count (130-400) 10^3/uL 214 MPV (8.0-11.0) fL 10.1 Immature Gran % 0.3 Neutrophils % 71.8 Lymphocytes % 20.4 Monocytes % 5.0 Eosinophils % 2.0 Basophils % 0.5 Nucleated RBC % (0.0-0.3) % 0.0 Absolute Neutrophils (1.2-6.7) 10^3/uL 7.54 H Absolute Lymphocytes (1.2-3.4) 10^3/uL 2.14 Absolute Monocytes (0.1-0.8) 10^3/uL 0.52 Absolute Eosinophils (0.0-0.7) 10^3/uL 0.21 Absolute Basophils (0.0-0.2) 10^3/uL 0.05 Sodium (136-145) mmol/L 136 Potassium (3.5-5.1) mmol/L 3.8 Chloride (98-107) mmol/L 100 Carbon Dioxide (21.0-32.0) mmol/L 28.1 Anion Gap (3-11) mmol/L 7.9 BUN (7-18) mg/dL 15 Creatinine (0.70-1.30) mg/dL 1.0 Est GFR (CKD-EPI 2020) (mL/min/1.73m2) 87.78 Glucose (74-106) mg/dL 111 H Calcium (8.5-10.1) mg/dL 9.0 Total Bilirubin (0.2-1.0) mg/dL 0.3 AST (15-37) U/L 17 ALT (16-63) U/L 22 Alkaline Phosphatase (46-116) U/L 123 H Total Protein (6.4-8.2) g/dL 7.7 Albumin (3.4-5.0) g/dL 3.7 Lipase (73-393) U/L 56 Urine Color (Yellow) Yellow Urine Clarity (Clear) Clear Urine pH (5-8) 6.5 Ur Specific [place] (1.005-1.025) 1.020 Urine Protein (Negative) mg/dL Negative Urine Ketones (Negative) mg/dL Negative Urine Blood (Negative) Negative Urine Nitrite (Negative) Negative Urine Bilirubin (Negative) Negative Urine Urobilinogen (Up TO 0.2) EU/dL 0.2 Ur Leukocyte Esterase (Negative) Negative Urine Glucose (Negative) mg/dL Negative HPI General Mode of arrival: ambulatory. Date/Time Provider Initiated Documentation: 02/14/22 13:13. Limitations to Documentation: no limitations. Information obtained by: patient. History of Present Illness 56 year old M presents to the emergency department with the chief complaint of Back Pain, described as moderate, with intensity rated at 6. Quality is described as aching, and is localized to the back, abdomen, buttocks and left. Patient flank. Patient started experiencing this day(s) (8) and it has been constant. No relieving factors improve symptom(s), Movement worsens symptoms . Patient notes no other symptoms.. Patient did receive the following treatments prior to arrival, none Related Data Home Medications Medication Instructions Recorded Confirmed bupropion HCl 150 mg 24 hr tablet, 150 mg PO QAM 01/26/22 02/14/22 extended release hydroxyzine HCl 25 mg tablet 25 mg PO BID PRN 01/26/22 02/14/22 olanzapine 10 mg tablet 7.5 mg PO QAM 01/26/22 02/14/22 olanzapine 10 mg tablet (Zyprexa) 10 mg PO DAILY 01/26/22 02/14/22 sennosides 8.6 mg tablet (senna) 1 tab PO BID PRN 01/26/22 02/14/22 trazodone 50 mg tablet 50 mg PO DAILY 01/26/22 02/14/22 doxycycline hyclate 100 mg capsule 100 mg PO BID #20 caps 02/14/22 Previous Rx's Medication Instructions Recorded doxycycline hyclate 100 mg capsule 100 mg PO BID #20 caps 02/14/22 Allergies Allergy/AdvReac Type Severity Reaction Status Date / Time Sulfa (Sulfonamide Allergy Severe Swelling/Ed Unverified 02/14/22 13:13 Antibiotics) jostin General Stated Complaint: FlankPain ABA: 3 Review of Systems Constitutional Constitutional: Denies fever(s) and Denies weakness Cardiovascular Cardiovascular: Denies chest pain and Denies dyspnea Respiratory Respiratory: Denies dyspnea Gastrointestinal Gastrointestinal: Reports abdominal pain, Denies melena, Denies hematochezia, Denies diarrhea, Denies nausea and Denies vomiting Genitourinary Genitourinary: Denies dysuria Musculoskeletal Musculoskeletal: Reports back pain, Denies numbness and Denies tingling Integumentary/Breasts Skin/Breast: Denies rash Neurologic Neurologic: Denies numbness, Denies tingling and Denies weakness PFSH All Active Problems (Updated 02/14/22 @ 15:51 by RENAE Minaya) Right lower lobe pneumonia (Acute) Left flank pain (Acute) Suicidal ideation (Acute) Depression (Chronic) Deliberate self-cutting (Acute) Other social stressor (Acute) Agitation (Acute) Hemoptysis (Acute) Thumb injury (Acute) Abnormal chest CT (Acute) GERD (gastroesophageal reflux disease) (Chronic) Hypercholesterolemia (Chronic) Suicidal thoughts (Acute) Leukocytosis (Chronic) Tobacco abuse (Chronic) Suicidal ideation (Acute) Anxiety (Chronic) Depression (Chronic) COPD (chronic obstructive pulmonary disease) (Chronic) Depression (Chronic) Bipolar disorder (Chronic) Depression with suicidal ideation (Acute) Medical History Bipolar disorder Depressed Shingles Stress Suicidal ideations Suicidal thoughts Traumatic pneumothorax 2017, chest tube x2 Surgical History History of ankle surgery S/P thoracostomy tube placement Social History Smoking/Tobacco Use Status: Current every day Tobacco Type: cigarettes Smoking risk assessment performed?: Yes Alcohol Intake: never Drug use: Daily Substance use type: marijuana Current gender identity: male Do you feel safe at home: No (downstairs neighbors) Do you feel safe in your relationship?: Yes Additional Social history: Lives in a private apartment. Has [facility] case management Exam Const General: cooperative, healthy appearing, comfortable and no acute distress Orientation: alert and awake HENSD Head: normal to inspection, normocephalic and atraumatic Eyes Conjunctivae: conjunctivae normal Neck Neck: normal visual inspection, full ROM, trachea midline and supple Resp Effort & Inspection: normal respiratory effort and able to speak in complete sentences Auscultation: clear to auscultation bilaterally Cardio Rate: regular rate Rhythm: regular rhythm GI Inspection: normal to inspection Palpation: soft, not firm, no guarding, no pulsatile masses and tender in the LLQ (mild) Auscultation: normal bowel sounds Back/Spine/Pelvis Back: no CVA tenderness and back tenderness (Diffuse, mild lumbar) Skin General skin exam: no rashes or lesions noted Neuro General: patient alert, patient awake, moves all extremities and no focal motor deficits Cognition: normal cognition Speech: speech normal Gait: normal gait Sensory Exam: no sensory deficits noted Extrem General: normal to inspection, full ROM and capillary refill normal Psych Appearance: grossly normal Mental Status: mental status grossly normal Course Vital Signs Vital signs: Vital Signs Pulse 85 02/14/22 13:08 Respiratory Rate 18 02/14/22 13:08 Blood Pressure 106/72 02/14/22 13:08 Pulse Oximetry 97 02/14/22 13:08 Temperature Source Oral 02/14/22 13:08 Pulse 85 02/14/22 13:08 Respiratory Rate 18 02/14/22 13:08 Respiratory Effort 02/14/22 13:12 Blood Pressure 106/72 02/14/22 13:08 Blood Pressure Position Sitting 02/14/22 13:08 Pulse Oximetry 97 02/14/22 13:08 Oxygen Delivery Method Room Air 02/14/22 13:08 Oxygen Flow Rate 0 02/14/22 13:08 Pain Level 8 02/14/22 13:15 Lab/Test Results Lab/Test Results: Laboratory Tests Range/Units 02/14/22 13:20 Urine Color (Yellow) Yellow Urine Clarity (Clear) Clear Urine pH (5-8) 6.5 Ur Specific [place] (1.005-1.025) 1.020 Urine Protein (Negative) mg/dL Negative Urine Ketones (Negative) mg/dL Negative Urine Blood (Negative) Negative Urine Nitrite (Negative) Negative Urine Bilirubin (Negative) Negative Urine Urobilinogen (Up TO 0.2) EU/dL 0.2 Ur Leukocyte Esterase (Negative) Negative Urine Glucose (Negative) mg/dL Negative
[2022-02-14] MEDS: Ketorolac 30 MG/ML VIAL IVP (14:06)
[2022-02-14 14:13] VITALS: BP 101/59; PULSE 77; RESP 18; O2SAT 98
[2022-02-14 14:16] LABS: Abs Immature Grans 0.03 10^3/uL (0.0-0.06); Absolute Basophil Count 0.05 10^3/uL (0.0-0.2); Absolute Eosinophil Count 0.21 10^3/uL (0.0-0.7); Absolute Lymphocyte Count 2.14 10^3/uL (1.2-3.4); Absolute Monocyte Count 0.52 10^3/uL (0.1-0.8); Absolute Neutrophil Count 7.54 10^3/uL (1.2-6.7); Basophils % 0.5; HCT 42.9 % (40.0-50.0); HGB 14.1 g/dL (13.5-17.5); Immature Grans % 0.3; Lymphocytes % 20.4; MCH 25.9 pg (27.0-33.0); MCHC 32.9 % (32.0-36.0); MCV 79 fL (80-95); MPV 10.1 fL (8.0-11.0); Neutrophils % 71.8; Platelet Count 214 10^3/uL (130-400); RBC 5.45 10^6/uL (4.36-5.78); RDW 14.9 % (11.8-14.1); RDW-SD 42.6 fL; WBC 10.49 10^3/uL (4.4-10.8)
[2022-02-14 14:27] LABS: ALT 22 U/L (16-63); AST 17 U/L (15-37); Albumin 3.7 g/dL (3.4-5.0); Alkaline Phosphatase 123 U/L (46-116); Anion Gap 7.9 mmol/L (3-11); BUN 15 mg/dL (7-18); Bilirubin, Total 0.3 mg/dL (0.2-1.0); CO2 28.1 mmol/L (21.0-32.0); Chloride 100 mmol/L (98-107); Estimated GFR 87.78 (mL/min/1.73m2); Glucose 111 mg/dL (74-106); Lipase 56 U/L (73-393); Potassium 3.8 mmol/L (3.5-5.1); Sodium 136 mmol/L (136-145); Total Protein 7.7 g/dL (6.4-8.2)
--- NOTE | 2022-02-14 14:30 | DI.CT_ITS ---
Exam(s) CT ABDOMEN PELVIS W EXAM: CT ABDOMEN PELVIS W CLINICAL HISTORY: L back/abd pain TECHNIQUE: Imaging Protocol: Axial computed tomography images with coronal and sagittal reformatted images were created and reviewed CONTRAST MATERIAL: Intravenous: Omnipaque 350 Contrast volume:100 mL Oral: No COMPARISON: CT RENAL COLIC WO CONTRAST from 06/22/[address] CHEST PE CTA from 07/20/2020 FINDINGS: ABDOMEN: Lung Bases: Emphysematous changes are seen in the lung bases. There is an infiltrate in the right lo wer lobe. Liver: Normal density. There are several tiny hypodensities in the liver. They are too small for fur ther characterization but likely reflect small cysts. No suspicious hepatic masses are seen. Portal, Superior Mesenteric, and Splenic Veins: Unremarkable. Gallbladder and Biliary Tract: No radiodense calculus or dilation. Pancreas: Normal density, no abnormal calcifications or inflammatory process. Spleen: Normal. Adrenals: No masses seen. Kidneys: Normal size, contour and axis. There is a 2 mm nonobstructing stone in the lower pole of the left kidney. No masses seen. Abdominal Aorta: Abdominal portion non-dilated. Atherosclerosis is present. Bowel: No obstruction or bowel wall thickening. No evidence of appendicitis. There are fluid-filled loops of small and large bowel which can be seen with a diarrheal illness. Peritoneal Cavity: No ascites, collection or mesenteric inflammatory response. No free air. Lymph Nodes: Within normal limits. Bones: Within normal limits for the patient's age. There are degenerative changes seen in the spine but no significant central spinal canal or neural foraminal stenosis is present. Soft Tissues: Unremarkable. PELVIS: Bladder: Symmetric distention, no gross wall thickening. Reproductive Organs: Enlarged prostate gland. Lymph Nodes: Within normal limits. Bones: Within normal limits for the patient's age. IMPRESSION: 1. Small right lower lobe infiltrate which may represent pneumonia. Please correlate clinically. 2. Fluid-filled loops of small and large bowel which can be seen with a diarrheal illness. 3. Left nephrolithiasis but no hydronephrosis. 4. Degenerative changes in the spine but no evidence to suggest central spinal canal or neural forami nal stenosis. 5. Results of this exam have been verbally communicated with provider. RADIATION DOSE DELIVERED: 922.92mGy.cm Total DLP DATA REPOSITORY: All CT scans at this facility are submitted to the National Radiology Data Registry (NRDR) Dose Index Registry (DIR) with the [employer] (A[employer]). RADIATION OPTIMIZATION: All CT scans at this facility use at least one of these dose optimization te chniques: automated exposure control; mA and/or kV adjustment per patient size (includes targeted exa ms where dose is matched to clinical indication); or iterative reconstruction.
[2022-02-14 15:01] VITALS: BP 100/54; RESP 18; O2SAT 96
[2022-02-14] MEDS: Omnipaque 350 MG/ML 100 ML BTL IJ (15:15)
[2022-02-14] MEDS: Normal Saline Flush 10 ML SYR IVP (15:16)
[2022-02-14 15:40] VITALS: BP 103/69; PULSE 82; TEMP 37.1; O2SAT 96
== END 2022-02-14 16:06 | disposition home or self-care (01) ==
PROVIDERS: Emergency Medicine; Emergency Provider Physician Assistant; PCP Family Medicine
DX: J18.9 Pneumonia, unspecified organism (principal); R10.9 Unspecified abdominal pain; G58.9 Mononeuropathy, unspecified; F17.210 Nicotine dependence, cigarettes, uncomplicated
CPT/HCPCS: 80053; 83690; 96374; 99285; 74177; 81003; 85025; 99284; J1885; J3490

== ENCOUNTER 2022-03-27 14:43 | Emergency (ER) | payer MEDICAID, SELFPAY ==
[2022-03-27 14:53] VITALS: BP 125/84; PULSE 93; RESP 17; O2SAT 96
--- NOTE | 2022-03-27 14:59 | ED.GENADUL_ITS ---
Discharge Plan Disposition Patient Disposition: HOME Condition: Good Discharge Details Clinical Impression: Superficial abrasion Primary Care Provider: Chung Perry ED Provider: Mickey Ragsdale Home Meds and New Rx's Prescriptions: No Action hydroxyzine HCl 25 mg tablet 25 mg PO BID PRN olanzapine [Zyprexa] 10 mg Tablet 10 mg PO DAILY bupropion HCl 150 mg tablet extended release 24 hr 150 mg PO QAM olanzapine 10 mg tablet 7.5 mg PO QAM sennosides [senna] 8.6 mg tablet 1 tab PO BID PRN trazodone 50 mg tablet 50 mg PO DAILY doxycycline hyclate 100 mg capsule 100 mg PO BID Qty: 20 0RF Discharge Instructions Additional Instructions: Please clean the area 2-3 times daily. Apply triple antibiotic ointment. Re- bandage it every day. If you notice any worsening of your symptoms, or any new symptoms such as vomiting, diarrhea, fever, chills, shortness of breath, chest pain, numbness, weakness, or fainting , please return immediately to the emergency department for reevaluation. Please follow up with your primary care provider as soon as possible for reassessment and reevaluation. As always, it was a pleasure participating in your medical care today. Referrals: Chung Perry [Primary Care Provider] - Medical Decision Making 56-year-old male with a past medical history of high cholesterol, depression, COPD, bipolar,?presents today via EMS for evaluation of superficial lacerations to his left arm. Patient states that the tenants in his building have been pissing him off and causing him a significant amount of stress. Because of this he took a clean razor blade and scraped off the superficial component of the skin in a few's small spaces on his left arm. He was brought into the ER by EMS for further evaluation. He denies any focal suicidal or homicidal ideations. He states that this is a means of self expression secondar y to his frustration. He denies any other complaints at this time. He denies any auditory visual hallucinations. No other modifying factors. Exam demonstrates well-appearing male, no homicidal or suicidal ideations. Left arm demonstrates a few small areas where the superficial layer of skin was scraped off with a razor. No lacerations requiring suturing. Tetanus is up-to-date. No other abnormalities. Patient is stable for home but does need support to be able to do this. We have reached out to mental health and [employer] and they will help accompany the patient home for the support that he currently needs. Patient is otherwise not a harm to himself at this time, and half agrees to the plan. Patient stable for discharge. Area on his arm was cleaned, bandaged, and dressed. I have extensively reviewed the treatment plan and discharge instructions with the patient. I have addressed all patient concerns at this time. The patient was made aware of what symptoms to monitor for that wo uld warrant a return to the emergency department. Discussed the plan with the patient, they demonstrate verbal understanding and agreement with our assessment and plan at this time. The documentation in this chart was dictated using [employer] dictation software. Please excuse any dictation errors. Of note tetanus was ordered for the patient, but the patient left without his paperwork and without receiving the tetanus vaccine. He will be contacted and the paperwork will be mailed to him. HPI General Date/Time Provider Initiated Documentation: 03/27/22 14:46 . HPI Narrative: 56-year-old male with a past medical history of high cholesterol, depression, COPD, bipolar,?presents today via EMS for evaluation of superficial lacerations to his left arm. Patient states that the tenants in his building have been pissing him off and causing him a significant amount of stress. Because of this he took a clean razor blade and scraped off the superficial component of the skin in a few's small spaces on his left arm. He was brought into the ER by EMS for further evaluation. He denies any focal suicidal or homicidal ideations. He states that this is a means of self expression secondary to his frustration. He denies any other complaints at this time. He denies any auditory visual hallucinations. No other modifying factors. Related Data Home Medications Medication Instructions Recorded Confirmed bupropion HCl 150 mg 24 hr tablet, 150 mg PO QAM 01/26/22 03/27/22 extended release hydroxyzine HCl 25 mg tablet 25 mg PO BID PRN 01/26/22 03/27/22 olanzapine 10 mg tablet 7.5 mg PO QAM 01/26/22 03/27/22 olanzapine 10 mg tablet (Zyprexa) 10 mg PO DAILY 01/26/22 03/27/22 sennosides 8.6 mg tablet (senna) 1 tab PO BID PRN 01/26/22 03/27/22 trazodone 50 mg tablet 50 mg PO DAILY 01/26/22 03/27/22 doxycycline hyclate 100 mg capsule 100 mg PO BID #20 caps 02/14/22 03/27/22 Previous Rx's Medication Instructions Recorded doxycycline hyclate 100 mg capsule 100 mg PO BID #20 caps 02/14/22 Allergies Allergy/AdvReac Type Severity Reaction Status Date / Time Sulfa (Sulfonamide Allergy Severe Swelling/Ed Unverified 03/27/22 14:56 Antibiotics) jostin General Stated Complaint: Laceration ABA: 4 Review of Systems All systems reviewed & are unremarkable except as noted in HPI and below PFSH All Active Problems (Updated 03/27/22 @ 15:05 by Mickey Ragsdale DO) Superficial abrasion (Acute) Suicidal ideation (Acute) Depression (Chronic) Deliberate self-cutting (Acute) Other social stressor (Acute) Agitation (Acute) Hemoptysis (Acute) Thumb injury (Acute) Abnormal chest CT (Acute) GERD (gastroesophageal reflux disease) (Chronic) Hypercholesterolemia (Chronic) Suicidal thoughts (Acute) Leukocytosis (Chronic) Tobacco abuse (Chronic) Suicidal ideation (Acute) Anxiety (Chronic) Depression (Chronic) COPD (chronic obstructive pulmonary disease) (Chronic) Depression (Chronic) Bipolar disorder (Chronic) Depression with suicidal ideation (Acute) Medical History Bipolar disorder Depressed Shingles Stress Suicidal ideations Suicidal thoughts Traumatic pneumothorax 2017, chest tube x2 Surgical History History of ankle surgery S/P thoracostomy tube placement Social History Smoking/Tobacco Use Status: Current every day Tobacco Type: cigarettes Smoking risk assessment performed?: Yes Alcohol Intake: never Drug use: Daily Substance use type: marijuana Current gender identity: male Do you feel safe at home: No (downstairs neighbors) Do you feel safe in your relationship?: Yes Additional Social history: Lives in a private apartment. Has [facility] case management Exam Narrative Exam Narrative: 1.Const: Well-nourished, Well-developed, appearing stated age 2.Eyes: PERRL, no conjunctival injection, and symmetrical lids. 3.ENT: Atraumatic external nose and ears. Moist MM. Neck: Symmetric, trachea midline, No thyromegaly. 4.CVS: +S1/S2, No murmurs or gallops. Peripheral pulses 2+ and equal in all extremities. Brisk capillary refill in all extremities. 5.RESP: Unlabored respiratory effort. Clear to auscultation bilaterally. No whe ezes rales or rhonchi 6.GI: Soft, Nontender/Nondistended, No hepatosplenomegaly. No guarding or rebound. 7.MSK: Normocephalic/Atraumatic, Extremities w/o deformity or ttp No cyanosis or clubbing, Normal movement of all extremities 8.Skin: Warm, Dry. A few small superficial markings noted on the left forearm, they appear similar to road rash. It is the areas where the patient took the razor blade and scraped the notably superficial component of the skin. No active bleeding. Nothing that requires suturing. Distal exam demonstrates no evidence of deficit for capillary refill, or neurovascular musculoskeletal exam. 9.Neuro: wheel buffer II-XII grossly intact. Sensation grossly intact, no focal neurologic deficits. 10.Psych: (AAO) x3. Appropriate mood and affect Course Vital Signs Vital signs: Vital Signs Pulse 93 H 03/27/22 14:53 Respiratory Rate 17 03/27/22 14:53 Blood Pressure 125/84 03/27/22 14:53 Pulse Oximetry 96 03/27/22 14:53 Pulse 93 H 03/27/22 14:53 Respiratory Rate 17 03/27/22 14:53 Respiratory Effort Non-Labored 03/27/22 14:55 Blood Pressure 125/84 03/27/22 14:53 Blood Pressure Position Sitting 03/27/22 14:53 Pulse Oximetry 96 03/27/22 14:53 Oxygen Delivery Method Room Air 03/27/22 14:53 Oxygen Flow Rate 0 03/27/22 14:53 Pain Level 0 03/27/22 14:53
== END 2022-03-27 16:08 | disposition home or self-care (01) ==
LOC: ER 15:37
PROVIDERS: Emergency Provider Student in an Organized Health Care Education/Training Program; PCP Family Medicine
DX: S41.112A Laceration without foreign body of left upper arm, initial encounter (principal); W26.8XXA Contact with other sharp object(s), not elsewhere classified, initial encounter; Z53.20 Procedure and treatment not carried out because of patient's decision for unspecified reasons
CPT/HCPCS: 99282

== ENCOUNTER 2022-03-31 19:33 | Emergency (ER) | payer MEDICAID, SELFPAY ==
[2022-03-31 19:35] VITALS: BP 119/87; PULSE 103; RESP 16; TEMP 36.7; O2SAT 95
--- NOTE | 2022-03-31 19:56 | ED.GENADUL_ITS ---
Discharge Plan Disposition Patient Disposition: STILL A PATIENT Condition: Stable Discharge Details Clinical Impression: Suicidal thoughts Primary Care Provider: Chung Perry ED Provider: Katheryn Kimball Home Meds and New Rx's Prescriptions: No Action hydroxyzine HCl 25 mg tablet 25 mg PO BID PRN olanzapine [Zyprexa] 10 mg Tablet 10 mg PO BID bupropion HCl 150 mg tablet extended release 24 hr 150 mg PO QAM sennosides [senna] 8.6 mg tablet 1 tab PO BID PRN trazodone 50 mg tablet 50 mg PO DAILY Medical Decision Making 56-year-old male presents to the ER via EMS with a chief complaint of suicidal ideation and self cutting. Patient has a past medical history of COPD, depression, tobacco use and GERD. He is well-known to the department. He reports that he is just done and he is not doing well. He reports that 3 days ago he cut his left forearm with a razor. Patient placed in paper scrubs and was in line of sight of nurses station. He appears to be calm and cooperative at this time. He is not under the influence of any known substance. 2049: [facility] notified will call back for an eval. 2113: liason here at for eval. 2200: Per MH liason, patient to seek voluntary inpatient admission. Covid swab ordered, UDS, and normal med orders placed. Care is to be handed off to oncoming provider Dr. Ammon Ragsdale pending voluntary inpatient psych placement. At this time we do not have any bed availability on the floor. Medical Records Medical records reviewed: Yes I reviewed the patient's medical records. HPI General Mode of arrival: EMS . Date/Time Provider Initiated Documentation: 03/31/22 19:43 . Limitations to Documentation: no limitations . Information obtained by: patient, EMS, RN notes reviewed and old records reviewed . HPI Narrative: 56-year-old male presents to the ER via EMS with a chief complaint of suicidal ideation and self cutting. Patient has a past medical history of COPD, depression, tobacco use and GERD. He is well-known to the department. He reports that he is just done and he is not doing well. He reports that 3 days ago he cut his left forearm with a razor. He states that he does not want to do a tetanus vaccination. He also reports that he has been taking his normal daily meds for the last 3 days but he did take them this morning. He is alert and oriented x3 upon arrival, cooperative at this time. Patient has approximately 3-4 superficial abrasions noted to his left inner forearm that has been dressed apparently 3 days ago when he was seen here in the ER. No surrounding erythema induration or signs of infection no red streaks. There is another abrasion noted to the dorsum of his left Related Data Home Medications Medication Instructions Recorded Confirmed bupropion HCl 150 mg 24 hr tablet, 150 mg PO QAM 01/26/22 03/31/22 extended release hydroxyzine HCl 25 mg tablet 25 mg PO BID PRN 01/26/22 03/31/22 olanzapine 10 mg tablet (Zyprexa) 10 mg PO BID 01/26/22 03/31/22 sennosides 8.6 mg tablet (senna) 1 tab PO BID PRN 01/26/22 03/31/22 trazodone 50 mg tablet 50 mg PO DAILY 01/26/22 03/31/22 Allergies Allergy/AdvReac Type Severity Reaction Status Date / Time Sulfa (Sulfonamide Allergy Severe Swelling/Ed Unverified 03/31/22 20:04 Antibiotics) jostin General Stated Complaint: PsychEval ABA: 2 Review of Systems All systems reviewed & are unremarkable except as noted in HPI and below Psychiatric Psychiatric: Reports as per HPI, Reports depression and Reports suicidal ideation PFSH All Active Problems (Updated 03/31/22 @ 23:07 by Katheryn Kimball NP) Superficial abrasion (Acute) Suicidal ideation (Acute) Depression (Chronic) Deliberate self-cutting (Acute) Other social stressor (Acute) Agitation (Acute) Hemoptysis (Acute) Thumb injury (Acute) Abnormal chest CT (Acute) GERD (gastroesophageal reflux disease) (Chronic) Hypercholesterolemia (Chronic) Suicidal thoughts (Acute) Leukocytosis (Chronic) Tobacco abuse (Chronic) Suicidal ideation (Acute) Anxiety (Chronic) Depression (Chronic) COPD (chronic obstructive pulmonary disease) (Chronic) Depression (Chronic) Bipolar disorder (Chronic) Depression with suicidal ideation (Acute) Medical History Bipolar disorder Depressed Shingles Stress Suicidal ideations Suicidal thoughts Traumatic pneumothorax 2017, chest tube x2 Surgical History History of ankle surgery S/P thoracostomy tube placement Social History Smoking/Tobacco Use Status: Current every day Tobacco Type: cigarettes Smoking risk assessment performed?: Yes Alcohol Intake: never Drug use: Daily Substance use type: marijuana Current gender identity: male Do you feel safe at home: No (downstairs neighbors) Do you feel safe in your relationship?: Yes Additional Social history: Lives in a private apartment. Has [facility] case management Exam Narrative Exam Narrative: Constitutional: Alert and oriented x3. Appears stated age. Normal body habitus. Head: Normocephalic, no trauma. Eyes: Pupils PERRL, Red reflex noted, EOM's intact. Eyelids symmetrical without lesions, discharge, or swelling. Chest: RRR, Normal S1, S2, distal pulses intact. Resp: Lungs clear to auscultation bilaterally, no wheezes, rales, or rhonchi. Abdomen: Soft, non-distended, Normoactive bowel sounds all 4 quads. Musculoskeletal: Normal gait, 5/5 strength to all four extremities. Skin: No suspicious rashes or lesions. Capillary refill less than 2 sec. Neurologic: Cranial nerves II-XII intact. Alert and oriented x 3. Motor: No deficits noted. Sensory: Intact bilaterally all 4 extremities. Extrem Left upper extremity: elbow/forearm Details: abrasion (Approximately 4 superficial abrasions noted to his left inner forearm and 1 abrasion noted to his dorsum of his forearm. No surrounding erythema induration or) forearm mid posterior Details: multiple and laceration Elbow/forearm/wrist images: 1. Linear superficial abrasions noted 2. Linear superficial abrasions noted 3. Linear superficial abrasions noted 4. Superficial abrasion Psych Speech and Movement: speech and movement normal Affect: sad Attitude: cooperative Thought Process: normal Thought Content: suicidality Insight: fair Judgment: fair Course Vital Signs Vital signs: Vital Signs Temperature 36.7 C 03/31/22 19:35 Pulse 103 H 03/31/22 19:35 Respiratory Rate 16 03/31/22 19:35 Blood Pressure 119/87 03/31/22 19:35 Pulse Oximetry 95 03/31/22 19:35 Temperature 36.7 C 03/31/22 19:35 Temperature Source Tympanic 03/31/22 19:35 Pulse 103 H 03/31/22 19:35 Respiratory Rate 16 03/31/22 19:35 Respiratory Effort 03/31/22 19:44 Blood Pressure 119/87 03/31/22 19:35 Blood Pressure Position Standing 03/31/22 19:35 Pulse Oximetry 95 03/31/22 19:35 Oxygen Delivery Method Room Air 03/31/22 19:35 Oxygen Flow Rate 0 03/31/22 19:35 Pain Level 0 03/31/22 19:35 Sign Out Sign Out Data: Sign Out Comment: Pending voluntary psych inpatient placement. Calm and cooperative at this time. SI. Home meds ordered. Last updated by Katheryn Kimball NP at 03/31/22 22:53
[2022-04-01] MEDS: OLANZapine 10 MG TAB PO (04:00)
[2022-04-01 04:30] LABS: Source Nasal/Nares
[2022-04-01 04:47] LABS: *AMPHETAMINES SCREEN URINE Negative (Negative); *BARBITURATES SCREEN URINE Negative (Negative); *BENZODIAZEPINES SCREEN URINE Negative (Negative); Cannabinoids THC Positive (Negative); Cocaine Screen,Urine Negative (Negative); METHADONE URINE SCREEN Negative (Negative); OPIATES URINE SCREEN Negative (Negative)
[2022-04-01 05:01] LABS: Tricyclic Antidepressants Negative (Negative)
[2022-04-01 05:02] LABS: COVID-19 PCR Negative (Negative)
[2022-04-01] MEDS: traZODone 50 MG TAB PO (08:11)
[2022-04-01] MEDS: buPROPion-XL 150 MG TABCR PO (08:11)
--- NOTE | 2022-04-01 10:20 | ED.PROG_ITS ---
Date of service: 04/01/22 Time of Service: 10:21 Medical Decision Making pt stable, calm and cooperative, currently voluntary for depression and si, will remain in the ED currently until psych placement found or bed at [facility] becomes available Sign Out Sign Out Data: Sign Out Comment: Pending voluntary psych inpatient placement. Calm and cooperative at this time. SI. Home meds ordered. Last updated by Katheryn Kimball NP at 03/31/22 22:53 Sign Out Comment: Pending psych inpatient placement. Stable throughout the night. No interventions needed Last updated by Mickey Ragsdale DO at 04/01/22 07:08 Discharge Plan Disposition Patient Disposition: STILL A PATIENT Condition: Stable Discharge Details Clinical Impression: Suicidal thoughts Primary Care Provider: Chung Perry ED Provider: Asim Fierro Home Meds and New Rx's Prescriptions: No Action hydroxyzine HCl 25 mg tablet 25 mg PO BID PRN olanzapine [Zyprexa] 10 mg Tablet 10 mg PO BID bupropion HCl 150 mg tablet extended release 24 hr 150 mg PO QAM sennosides [senna] 8.6 mg tablet 1 tab PO BID PRN trazodone 50 mg tablet 50 mg PO DAILY
--- NOTE | 2022-04-01 11:36 | W.EDPROG ---
Date of service: 04/01/22 Time of Service: 12:34 Medical Decision Making pt stating he is not feeling homicidal or suicidal now, is calm and cooperative with clear speech. Evaluated by mental health and feel he is safe for d/c. They will follow up with him closely, return precautions given Sign Out Sign Out Data: Sign Out Comment: Pending voluntary psych inpatient placement. Calm and cooperative at this time. SI. Home meds ordered. Last updated by Katheryn Kimball NP at 03/31/22 22:53 Sign Out Comment: Pending psych inpatient placement. Stable throughout the night. No interventions needed Last updated by Mickey Ragsdale DO at 04/01/22 07:08 Discharge Plan Disposition Patient Disposition: HOME Condition: Stable Discharge Details Clinical Impression: Suicidal thoughts Primary Care Provider: Chung Perry ED Provider: Asim Fierro Home Meds and New Rx's Prescriptions: Continued hydroxyzine HCl 25 mg tablet 25 mg PO BID PRN olanzapine [Zyprexa] 10 mg Tablet 10 mg PO BID bupropion HCl 150 mg tablet extended release 24 hr 150 mg PO QAM sennosides [senna] 8.6 mg tablet 1 tab PO BID PRN trazodone 50 mg tablet 50 mg PO DAILY Discharge Instructions Instructions: Depression (ED) Additional Instructions: follow up with your primary care provider and also your mental health providers if you feel more ill or feel your symptoms are worsening return to the emergency department
== END 2022-04-01 12:46 | disposition home or self-care (01) ==
PROVIDERS: Registered Nurse Emergency; Emergency Provider Emergency Medicine; PCP Family Medicine
DX: F32.A Depression, unspecified (principal); R45.851 Suicidal ideations; S50.812A Abrasion of left forearm, initial encounter; X78.1XXA Intentional self-harm by knife, initial encounter
CPT/HCPCS: 80307; 87635; 99285; 99283

== ENCOUNTER 2022-06-11 15:24 | Emergency (ER) | payer MEDICAID, SELFPAY ==
[2022-06-11 15:23] VITALS: BP 134/73; PULSE 123; RESP 20; TEMP 37.2; O2SAT 93
--- NOTE | 2022-06-11 15:45 | DI.RAD_ITS ---
Exam(s) XR PORTABLE CHEST AP EXAM: XR PORTABLE CHEST AP CLINICAL HISTORY: fever. TECHNIQUE: 2D digital imaging was performed. COMPARISON: CR XR PORTABLE CHEST AP from 08/23/2020 FINDINGS: Single AP portable view. Heart size is upper normal. The mediastinum is not widened. Right lung is clear. There is a significant area of nodular infiltrate in the left upper lobe which requires follow-up to rule out malignancy. Remainder of the lung [place] unremarkable. No pleural ef fusions. IMPRESSION: Left upper lobe area of infiltrate which requires close follow-up to rule out malignancy. No pleural effusions evident on this portable view. DATA REPOSITORY: RADIATION DOSE DELIVERED:
--- NOTE | 2022-06-11 15:55 | W.ED.GENAD ---
Discharge Plan Disposition Patient Disposition: Home Condition: Stable Discharge Details Clinical Impression: COVID Primary Care Provider: Chung Perry ED Provider: Jaime Ballard Home Meds and New Rx's Prescriptions: Continued hydroxyzine HCl 25 mg tablet 25 mg PO BID PRN olanzapine [Zyprexa] 10 mg Tablet 10 mg PO BID bupropion HCl 150 mg tablet extended release 24 hr 150 mg PO QAM sennosides [senna] 8.6 mg tablet 1 tab PO BID PRN trazodone 50 mg tablet 50 mg PO DAILY Discharge Instructions Instructions: COVID-19 (Coronavirus Disease 2019) (ED) Additional Instructions: Paxlovid as directed. [id number] medication as directed for symptomatic control. Plenty of fluids to avoid dehydration. As we discussed, Paxlovid may increase the sedation and potential fall risk of both your hydroxyzine and trazodone, be mindful when taking these medications. Please watch for new or worsening symptoms and return to the ER for any concerns. Lastly, please contact your primary care provider on Sunday to discuss your ER visit and need for outpatient reevaluation. Medical Decision Making 56-year-old gentleman, current smoker, reports feeling, generalized weakness, subjective fever, dry cough, nausea since yesterday, did vomit this morning. Reports that he is fully vaccinated against COVID but flu vaccine this year. Denies any sick contacts. Has not taken any medication today for symptomatic control. Clinically he presents with mild tachycardia otherwise appears well, nontoxic. Plan to obtain IV access, give IV fluid, Zofran, obtain a flu, COVID, RSV swab as well as routine screening laboratory values and chest x-ray. Covid positive. Laboratory values otherwise unremarkable for any obvious emergent process. Chest x-ray is pending. Heart rate is now 114. Patient reports improvement of his nausea, no vomiting while under my care.. Will reach out to the [facility] pharmacist to discuss the patient's medications in the setting of initiating Paxlovid. I was able to speak with Gera, pharmacy at [facility] telemedicine, he reports that the interaction can increase sedation and fall risk with both hydroxyzine and trazodone but there is no true contraindication. I discussed this with the patient, he is aware, only takes hydroxyzine as needed, trazodone typically at bedtime. He will be mindful that his sedation may be worse. We will initiate Paxlovid. Chest x-ray reveals an ill-defined left upper lobe opacity, follow-up to assess clearing recommended. When reviewing previous CT, there does appear to be a left upper lobe spiculated density. This is not appear to be new today, no clear indication to treat for likely pneumonia, recommend outpatient follow-up. Patient reports feeling improvement with fluid and Zofran. O2 sat remains 94% on room air. No respiratory distress Standard discharge and return precautions were provided. Patient understands, is agreeable to this plan, and has no additional questions or concerns upon discharge. This documentation was generated using [employer]camp[employer] system, please disregard any oddities of phrase or misspellings. Medical Records Medical records reviewed: Yes I reviewed the patient's medical records. Imaging Data Radiologic Study: Attestation: I personally reviewed and interpreted this imaging study as follows: Imaging: X-Ray Radiologist's impression: PROCEDURE INFORMATION: Exam: XR Chest Exam date and time: 06/11/2022 4:20 PM Age: 56 years old Clinical indication: Fever TECHNIQUE: Imaging protocol: Radiologic exam of the chest. Views: 1 view. COMPARISON: CR XR PORTABLE CHEST AP 08/23/2020 3:26 PM FINDINGS: Lungs: See Bones/joints finding. Pleural spaces: See Bones/joints finding. Heart/Mediastinum: Unremarkable. No cardiomegaly. Bones/joints: There is deformity of left rib likely secondary to previous trauma. There may be some associated pleural thickening. There appears to be a hazy left upper lobe opacity even allowing for old changes. IMPRESSION: Ill-defined left upper lobe opacity. Follow-up to assess clearing recommended. Lab Data Lab results reviewed: Yes I reviewed the patient's lab results. Labs: Laboratory Tests Range/Units 06/11/22 06/11/22 06/11/22 15:30 15:50 15:50 WBC (4.4-10.8) 10^3/uL 8.08 RBC (4.36-5.78) 10^6/uL 5.49 Hgb (13.5-17.5) g/dL 14.0 Hct (40.0-50.0) % 43.3 MCV (80-95) fL 79 L MCH (27.0-33.0) pg 25.5 L MCHC (32.0-36.0) % 32.3 RDW (11.8-14.1) % 14.1 Plt Count (130-400) 10^3/uL 186 MPV (8.0-11.0) fL 10.5 Immature Gran % 0.4 Neutrophils % 78.6 Lymphocytes % 8.2 Monocytes % 12.4 Eosinophils % 0.0 Basophils % 0.4 Nucleated RBC % (0.0-0.3) % 0.0 Absolute Neutrophils (1.2-6.7) 10^3/uL 6.36 Absolute Lymphocytes (1.2-3.4) 10^3/uL 0.66 L Absolute Monocytes (0.1-0.8) 10^3/uL 1.00 H Absolute Eosinophils (0.0-0.7) 10^3/uL 0.00 Absolute Basophils (0.0-0.2) 10^3/uL 0.03 Sodium (136-145) mmol/L 133 L Potassium (3.5-5.1) mmol/L 3.7 Chloride (98-107) mmol/L 98 Carbon Dioxide (21.0-32.0) mmol/L 24.5 Anion Gap (3-11) mmol/L 10.5 BUN (7-18) mg/dL 19 H Creatinine (0.70-1.30) mg/dL 1.0 Est GFR (CKD-EPI 2020) (mL/min/1.73m2) 87.78 Glucose (74-106) mg/dL 123 H Calcium (8.5-10.1) mg/dL 8.8 Total Bilirubin (0.2-1.0) mg/dL 0.3 AST (15-37) U/L 39 H ALT (16-63) U/L 30 Alkaline Phosphatase (46-116) U/L 134 H Total Protein (6.4-8.2) g/dL 7.9 Albumin (3.4-5.0) g/dL 3.6 Lipase (73-393) U/L 72 COVID-19 Source Nasopharynx SARS-CoV-2 (PCR) (Negative) Positive A Influenza Type A (PCR) (Negative) Negative Influenza Type B (PCR) (Negative) Negative RSV (PCR) (Negative) Negative HPI General Mode of arrival: EMS. Date/Time Provider Initiated Documentation: 06/11/22 15:26. Limitations to Documentation: no limitations. Information obtained by: patient and EMS. History of Present Illness 56 year old M presents to the emergency department with the chief complaint of fever, subjective, described as moderate, with intensity rated at 4. Quality is described as aching (Body aches), and is localized to the back (Body aches). Patient reports no radiation. Patient started experiencing this day(s) (1) and it has been constant. No relieving factors improve symptom(s), No exacerbating factors reported . Patient notes cough and nausea/vomiting. Patient did receive the following treatments prior to arrival, none Related Data Home Medications Medication Instructions Recorded Confirmed bupropion HCl 150 mg 24 hr tablet, 150 mg PO QAM 01/26/22 06/11/22 extended release hydroxyzine HCl 25 mg tablet 25 mg PO BID PRN 01/26/22 06/11/22 olanzapine 10 mg tablet (Zyprexa) 10 mg PO BID 01/26/22 06/11/22 sennosides 8.6 mg tablet (senna) 1 tab PO BID PRN 01/26/22 06/11/22 trazodone 50 mg tablet 50 mg PO DAILY 01/26/22 06/11/22 Allergies Allergy/AdvReac Type Severity Reaction Status Date / Time Sulfa (Sulfonamide Allergy Severe Swelling/Ed Unverified 06/11/22 15:24 Antibiotics) jostin General Stated Complaint: Fever ABA: 3 Review of Systems Constitutional Constitutional: Denies fatigue, Reports fever(s), Denies headache(s) and Reports weakness (Generalized) ENT Ears, Nose, Mouth, and Throat: Denies headache(s) and Denies sore throat Cardiovascular Cardiovascular: Denies chest pain and Denies dyspnea Respiratory Respiratory: Reports cough and Denies dyspnea Gastrointestinal Gastrointestinal: Denies abdominal pain, Denies constipation, Denies diarrhea, Reports nausea and Reports vomiting Genitourinary Genitourinary: Denies dysuria Musculoskeletal Musculoskeletal: Reports myalgias Integumentary/Breasts Skin/Breast: Denies rash Neurologic Neurologic: Denies headache(s) and Reports weakness (Generalized) Endocrine Endocrine: Denies fatigue Hematologic/Lymphatic Hematologic/Lymphatic: Denies easy bleeding and Denies easy bruising PFSH All Active Problems (Updated 01/22/23 @ 16:57 by RENAE Minaya) COVID (Acute) Suicidal ideation (Acute) Depression (Chronic) Deliberate self-cutting (Acute) Other social stressor (Acute) Agitation (Acute) Hemoptysis (Acute) Thumb injury (Acute) Abnormal chest CT (Acute) GERD (gastroesophageal reflux disease) (Chronic) Hypercholesterolemia (Chronic) Suicidal thoughts (Acute) Leukocytosis (Chronic) Tobacco abuse (Chronic) Suicidal ideation (Acute) Anxiety (Chronic) Depression (Chronic) COPD (chronic obstructive pulmonary disease) (Chronic) Depression (Chronic) Bipolar disorder (Chronic) Depression with suicidal ideation (Acute) Medical History Bipolar disorder Depressed Shingles Stress Suicidal ideations Suicidal thoughts Traumatic pneumothorax 2017, chest tube x2 Surgical History History of ankle surgery S/P thoracostomy tube placement Social History Smoking/Tobacco Use Status: Current every day Tobacco Type: cigarettes Smoking risk assessment performed?: Yes Alcohol Intake: never Drug use: Daily Substance use type: marijuana Current gender identity: male Do you feel safe at home: No (downstairs neighbors) Do you feel safe in your relationship?: Yes Additional Social history: Lives in a private apartment. Has [facility] case management Exam Const General: cooperative, healthy appearing, comfortable and no acute distress Orientation: alert and awake HENMT Head: normal to inspection, normocephalic and atraumatic Face and sinus: normal facial exam Mouth: moist mucous membranes Throat: posterior oropharynx normal Eyes Conjunctivae: conjunctivae normal Neck Neck: normal visual inspection, full ROM, no meningeal signs, trachea midline and supple Resp Effort & Inspection: normal respiratory effort, able to speak in complete sentences and cough Quality of cough: dry Auscultation: diminished lung sounds bilaterally in the lower lung saldaña Cardio Rate: tachycardic (116) Rhythm: regular rhythm GI Inspection: normal to inspection Palpation: soft, not firm, no guarding, no pulsatile masses and nontender Back/Spine/Pelvis Back: No back tenderness Skin General skin exam: no rashes or lesions noted Neuro General: patient alert, patient awake, moves all extremities and no focal motor deficits Cognition: normal cognition Speech: speech normal Gait: normal gait Motor: muscle tone normal throughout Sensory Exam: no sensory deficits noted Extrem General: normal to inspection, full ROM, capillary refill normal, no pedal edema and no calf tenderness Psych Appearance: grossly normal Mental Status: mental status grossly normal Course Vital Signs Vital signs: Vital Signs Temperature 37.2 C 06/11/22 15:23 Pulse 123 H 06/11/22 15:23 Respiratory Rate 20 06/11/22 15:23 Blood Pressure 134/73 06/11/22 15:23 Pulse Oximetry 93 06/11/22 15:23 Temperature 37.2 C 06/11/22 15:23 Temperature Source Oral 06/11/22 15:23 Pulse 123 H 06/11/22 15:23 Respiratory Rate 20 06/11/22 15:23 Blood Pressure 134/73 06/11/22 15:23 Pulse Oximetry 93 06/11/22 15:23 Oxygen Delivery Method Room Air 06/11/22 15:23 Oxygen Flow Rate 0 06/11/22 15:23
[2022-06-11 15:57] LABS: Abs Immature Grans 0.03 10^3/uL (0.0-0.06); Absolute Basophil Count 0.03 10^3/uL (0.0-0.2); Absolute Lymphocyte Count 0.66 10^3/uL (1.2-3.4); Absolute Neutrophil Count 6.36 10^3/uL (1.2-6.7); Basophils % 0.4; HCT 43.3 % (40.0-50.0); Immature Grans % 0.4; Lymphocytes % 8.2; MCH 25.5 pg (27.0-33.0); MCHC 32.3 % (32.0-36.0); MCV 79 fL (80-95); MPV 10.5 fL (8.0-11.0); Monocytes % 12.4; Neutrophils % 78.6; Platelet Count 186 10^3/uL (130-400); RBC 5.49 10^6/uL (4.36-5.78); RDW 14.1 % (11.8-14.1); RDW-SD 40.5 fL; WBC 8.08 10^3/uL (4.4-10.8)
[2022-06-11] MEDS: Normal Saline 1,000 ML 1000 ML IV (15:58)
[2022-06-11 16:04] VITALS: BP 118/82; PULSE 108; PULSE 110; RESP 23; O2SAT 94
[2022-06-11] MEDS: Ondansetron 4 MG/2 ML VIAL IVP (16:05)
[2022-06-11 16:09] LABS: Influenza A PCR Negative (Negative); Influenza B PCR Negative (Negative); RSV PCR Negative (Negative)
[2022-06-11 16:12] LABS: ALT 30 U/L (16-63); AST 39 U/L (15-37); Albumin 3.6 g/dL (3.4-5.0); Alkaline Phosphatase 134 U/L (46-116); Anion Gap 10.5 mmol/L (3-11); BUN 19 mg/dL (7-18); Bilirubin, Total 0.3 mg/dL (0.2-1.0); CO2 24.5 mmol/L (21.0-32.0); Calcium 8.8 mg/dL (8.5-10.1); Chloride 98 mmol/L (98-107); Estimated GFR 87.78 (mL/min/1.73m2); Glucose 123 mg/dL (74-106); Lipase 72 U/L (73-393); Potassium 3.7 mmol/L (3.5-5.1); Sodium 133 mmol/L (136-145); Total Protein 7.9 g/dL (6.4-8.2)
[2022-06-11 16:14] LABS: COVID-19 PCR Positive (Negative); Source Nasopharynx
[2022-06-11 16:31] VITALS: BP 142/96; PULSE 105; PULSE 107; RESP 24; O2SAT 94
[2022-06-11 16:45] VITALS: BP 138/90; PULSE 107; PULSE 108; RESP 27; O2SAT 94
--- NOTE | 2022-06-11 16:51 | DI.VRAD_ITS ---
PROCEDURE INFORMATION: Exam: XR Chest Exam date and time: 06/11/2022 4:20 PM Age: 56 years old Clinical indication: Fever TECHNIQUE: Imaging protocol: Radiologic exam of the chest. Views: 1 view. COMPARISON: CR XR PORTABLE CHEST AP 08/23/2020 3:26 PM FINDINGS: Lungs: See Bones/joints finding. Pleural spaces: See Bones/joints finding. Heart/Mediastinum: Unremarkable. No cardiomegaly. Bones/joints: There is deformity of left rib likely secondary to previous trauma. There may be some associated pleural thickening. There appears to be a hazy left upper lobe opacity even allowing for old changes. IMPRESSION: Ill-defined left upper lobe opacity. Follow-up to assess clearing recommended. Dictated and Authenticated by: Norma Andre MD. Ordering:MARGA Sandoval MD
== END 2022-06-11 17:13 | disposition home or self-care (01) ==
PROVIDERS: Physician Assistant; Emergency Provider Physician Assistant; PCP Family Medicine
DX: U07.1 COVID-19 (principal); R00.0 Tachycardia, unspecified; F17.210 Nicotine dependence, cigarettes, uncomplicated
CPT/HCPCS: 80053; 83690; 87637; 96361; 96374; 99284; 71045; 81003; 85025; J2405

== ENCOUNTER 2022-06-19 02:16 | Outpatient (CLI) | payer MEDICAID, SELFPAY ==
--- NOTE | 2022-06-19 | DI.MRI_ITS ---
Exam(s) MR BRAIN WO/W EXAM: MR BRAIN WO/W CLINICAL HISTORY: NSCLC, STAGING, C24.12, C34.31, PRIMARY TEJAS LUNG CA TECHNIQUE: Multiplanar multisequence MRI of the brain was performed. CONTRAST MATERIAL: IV Contrast: 16 mL of Dotarem contrast administered. COMPARISON: No exams were available for comparison FINDINGS: VENTRICLES AND EXTRA AXIAL SPACES: Normal in size and morphology for the patient's age. HEMORRHAGE: None. CEREBRAL PARENCHYMA: No focus of restricted diffusion to suggest acute infarct. No space-occupying le richard identified. MIDLINE SHIFT: None. BRAINSTEM/CEREBELLUM: Normal. CALVARIUM: Normal. ENHANCEMENT: No suspicious enhancement identified. VISUALIZED PARANASAL SINUSES/MASTOIDS: Clear. UPPER [place] OF ASHER: Normal flow void. PITUITARY GLAND: Unremarkable. OTHER FINDINGS: IMPRESSION: No evidence of an intracranial mass, enhancing lesion or acute infarct. No evidence of intracranial metastatic disease. DATA REPOSITORY:
[2022-06-19 14:32] LABS: Estimated GFR 87.78 (mL/min/1.73m2)
[2022-06-19] MEDS: Normal Saline Flush 10 ML SYR IVP (15:14)
[2022-06-19] MEDS: Gadoterate meglumine 20 ML VIAL 16 ML IVP (15:15)
== END 2022-06-19 02:36 ==
LOC: DI 02:16
PROVIDERS: PCP Family Medicine; Visit Provider Radiology Radiation Oncology
DX: Z01.812 Encounter for preprocedural laboratory examination (principal); C34.31 Malignant neoplasm of lower lobe, right bronchus or lung; C34.12 Malignant neoplasm of upper lobe, left bronchus or lung; Z12.89 Encounter for screening for malignant neoplasm of other sites
CPT/HCPCS: 70553; 82565

== ENCOUNTER 2022-06-20 01:41 | Outpatient (CLI) | payer MEDICAID, SELFPAY ==
[2022-06-20] MEDS: Omnipaque 350 MG/ML 100 ML BTL 70 ML IJ (14:44)
--- NOTE | 2022-06-20 14:45 | DI.CT_ITS ---
Exam(s) CT CHEST W EXAM: CT CHEST W CLINICAL HISTORY: LUNG CA,C34.90,INCREASED SOB AND WT LOSS TECHNIQUE: Imaging Protocol: Axial computed tomography images with coronal and sagittal reformatted images were created and reviewed CONTRAST MATERIAL: Intravenous: Omnipaque 350Contrast volume:70 mL. COMPARISON: CT CT CHEST W from 06/17/2020 CR XR PORTABLE CHEST AP from 08/23/[address] ABDOMEN PELVIS W from 02/14/2022 CR,XR XR PORTABLE CHEST AP from 06/11/2022 FINDINGS: Tracheobronchial tree: Patent where visualized. Pulmonary parenchyma: Emphysematous changes are present in the lungs. There is a large spiculated op acity in the posterior aspect of the right lower lobe. It measures 8.5 craniocaudad by 4.1 transvers e by 2.8 AP cm. There is an opacity in the left upper lobe measuring 2.4 AP by 3.9 transverse by 3.2 craniocaudad. Mediastinum and Kimberly: There are mildly enlarged mediastinal lymph nodes. The largest is in the pretr acheal region and measures 1.6 cm. The esophagus is unremarkable. Thyroid gland: Unremarkable. Pleura: No effusion or pneumothorax. Heart: The heart is not dilated. Minimal coronary artery calcification is present. No pericardial ef fusion. Aorta: Thoracic aorta non-dilated. Pulmonary arteries: No pulmonary emboli are identified. Upper abdomen: Unremarkable. Lymph nodes: Within normal limits. Bones: Within normal limits for the patient's age. Soft tissues: Unremarkable. IMPRESSION: 1. Pulmonary masses suspicious for lung carcinoma and/or metastatic disease. 2. Pulmonary emphysema. RADIATION DOSE DELIVERED: 556.2mGy.cm Total DLP DATA REPOSITORY: All CT scans at this facility are submitted to the National Radiology Data Registry (NRDR) Dose Index Registry (DIR) with the [employer] (A[employer]). RADIATION OPTIMIZATION: All CT scans at this facility use at least one of these dose optimization te chniques: automated exposure control; mA and/or kV adjustment per patient size (includes targeted exa ms where dose is matched to clinical indication); or iterative reconstruction.
== END 2022-06-20 02:01 ==
LOC: DI 01:42
PROVIDERS: PCP Family Medicine; Visit Provider Family Medicine
DX: R06.02 Shortness of breath (principal); R63.4 Abnormal weight loss; C34.31 Malignant neoplasm of lower lobe, right bronchus or lung; R59.0 Localized enlarged lymph nodes; C34.12 Malignant neoplasm of upper lobe, left bronchus or lung; J43.8 Other emphysema
CPT/HCPCS: 71260; J3490

== ENCOUNTER 2022-08-05 09:51 | Emergency (ER) | payer MEDICAID, SELFPAY ==
--- NOTE | 2022-08-05 09:45 | DI.CT_ITS ---
Exam(s) CT CHEST PE CTA EXAM: CT CHEST PE CTA CLINICAL HISTORY: Lung cancer, hemoptysis. TECHNIQUE: Imaging Protocol: Axial CT angiography was performed with multi-slice acquisition and mu lti-planar and/or 3D reconstructions. CONTRAST MATERIAL: Intravenous: Omnipaque 350 contrast volume:68 mL COMPARISON: CT CT CHEST W from 06/17/[address] ABDOMEN PELVIS W from 02/14/[address] CHEST W from 06/20/2022 FINDINGS: Tracheobronchial tree: Patent where visualized. Pulmonary parenchyma: Emphysematous changes are present in the lungs. The opacity in the left upper lobe has increased in size and measures 4.7 x 3.6 cm. The mass in the right lower lobe measures 8.8 craniocaudad by 4.2 transverse by 2.8 AP. There is a 7 mm nodule in the peripheral aspect of the lef t lower lobe. Stable passing in the right upper lobe. Pulmonary Arteries: No evidence of filling defect to suggest pulmonary emboli. Mediastinum and Kimberly: Stable enlarged mediastinal lymph nodes. Esophagus is unremarkable. Visualized thyroid gland: Unremarkable. Pleura: No effusion or pneumothorax. Heart: The heart is not dilated. No coronary artery calcifications are seen. No pericardial effusion. Aorta: Thoracic aorta non-dilated. No evidence of dissection. Upper abdomen: Stable hypodensities in the liver. They are too small for further characterization. Stable adrenal glands. Soft tissues: Unremarkable. Bones: Within normal limits for the patient's age.There is an old nonunited rib fracture. No aggress sherley osseous lesions are identified. IMPRESSION: 1. No evidence of pulmonary embolism, thoracic aortic dissection or aneurysm. 2. Left upper and right lower lobe masses consistent with carcinoma. There has been a slight increas e in size of the left upper lobe mass. 3. Pulmonary emphysema. RADIATION DOSE DELIVERED: 399.32mGy.cm Total DLP DATA REPOSITORY: All CT scans at this facility are submitted to the National Radiology Data Registry (NRDR) Dose Index Registry (DIR) with the [employer] (ACR). RADIATION OPTIMIZATION: All CT scans at this facility use at least one of these dose optimization te chniques: automated exposure control; mA and/or kV adjustment per patient size (includes targeted exa ms where dose is matched to clinical indication); or iterative reconstruction.
[2022-08-05 09:53] VITALS: BP 132/84; PULSE 92; RESP 18; O2SAT 95
[2022-08-05 09:56] VITALS: TEMP 36.8
--- NOTE | 2022-08-05 09:57 | W.ED.GENAD ---
Discharge Plan Disposition Patient Disposition: Home Condition: Good Discharge Details Clinical Impression: Hemoptysis, Cough, Pneumonia Primary Care Provider: Chung Perry ED Provider: Mickey Ragsdale Home Meds and New Rx's Prescriptions: New doxycycline hyclate 100 mg tablet 100 mg PO BID Qty: 20 0RF Continued hydroxyzine HCl 25 mg tablet 25 mg PO BID PRN olanzapine [Zyprexa] 10 mg Tablet 10 mg PO BID bupropion HCl 150 mg tablet extended release 24 hr 150 mg PO QAM sennosides [senna] 8.6 mg tablet 1 tab PO BID PRN trazodone 50 mg tablet 50 mg PO DAILY Discharge Instructions Instructions: Hemoptysis (ED), Pneumonia (ED) Additional Instructions: At this time you do have evidence of mild blood in your sputum, this is from the cancer/tumor most likely. He also do have a small amount of pneumonia noted on your CAT scan. Please take the antibiotic as directed. Please avoid any ibuprofen or Motrin at home as this can cause irritation in your stomach. Please monitor your symptoms closely and if you are noticing an increase in the amount of blood please return immediately for reassessment. [facility] has r specifically ecommended that you follow-up there in case the symptoms worsen. The reinspector will follow-up with you in the next week or so for reassessment and further discussion. If you notice any worsening of your symptoms, or any new symptoms such as vomiting, diarrhea, fever, chills, shortness of breath, chest pain, numbness, weakness, or fainting , please return immediately to the emergency department for reevaluation. Please follow up with your primary care provider as soon as possible for reassessment and reevaluation. As always, it was a pleasure participating in your medical care today. Referrals: Chung Perry [Primary Care Provider] - Medical Decision Making This is a 56-year-old male with a past medical history of bipolar, depression, PTSD, previous pneumothorax after trauma, lung cancer currently receiving radiation therapy, his first dose was 3 days ago on the , who presents today for evaluation of hemoptysis. Patient states that 3 days ago just a little bit prior to his first radiation therapy treatment he began having small amount of blood in his sputum. It would be streaking in the sputum, and there were usually 2 episodes of this per day. This is continued and worsened over the last 72 hours. He now notes a greater amount of blood in the sputum, around a dime size, but still just streaking throughout the sputum. He admits to chronic shortness of breath. His tobacco use is down to 4 cigarettes/day. He denies any syncope or chest pain. He denies any vomiting or diarrhea. He denies any blood thinner use. No other complaints at this time. Physical exam demonstrates a stable male, vital signs stable, oxygenation 95% on room air. Lungs are clear on auscultation. Patient does show me images of pictures of coughed up blood-tinged sputum in his toilet bowl. He shows no signs of homer mopped assist at this stage, no signs of respiratory distress. We will get a CT scan to evaluate for blood clot, worsening tumor mass, or significant pneumonia. We will monitor closely and reassess. 12:37 PM Patient's laboratory work-up has returned, PT/PTT/INR/platelets are all normal. Labs are notably benign. CT scan shows evidence of a mass which is consistent with his known cancer. There is also evidence of mild pneumonia. We will treat this with doxycycline. I did contact [facility] and discussed the case with oncology Dr. Abraham, she had no recommendations at this time and recommended reaching out to pulmonology. Did discuss the case with Dr. Cunha of pulmonology, and at this time she recommends continuing to monitor his symptoms closely and following up on an outpatient basis. She also recommends that the patient come to [facility] specifically in the future if the symptoms persist. Otherwise patient shows no signs of hypoxemia, respiratory distress whatsoever. He looks notably clinically stable. Pulmonology and oncology feels that this is the natural progression of his current illness, and with no evidence of significant respiratory distress whatsoever they do feel that he would be appropriate for discharge home based on his current clinical appearance. Patient will be discharged home with recommendation for close pulmonology follow-up. Will give doxycycline here and a prescription for home use. Discussed red flags for which to return, including concerning symptoms including an increase in his hemoptysis to the size of a quarter for which she would need to return immediately. I have extensively reviewed the treatment plan and discharge instructions with the patient. I have addressed all patient concerns at this time. The patient was made aware of what symptoms to monitor for that would warrant a return to the emergency department. Discussed the plan with the patient, they demonstrate verbal understanding and agreement with our assessment and plan at this time. The documentation in this chart was dictated using [employer] dictation software. Please excuse any dictation errors. FINDINGS: Pulmonary arteries: No pulmonary embolus is appreciated. Aorta: Extensive atherosclerotic changes in the visualized aorta. No aneurysm seen. Lungs: Emphysema. Left upper lobe mass again identified, now measuring approximately 4.7 by 3.5 cm, increased from prior study. Again seen is a right lower lobe mass with adjacent airspace opacity which is more prominent than on prior study. Stable focal opacity in the right upper lobe. Pleural spaces: No pleural effusion. Heart: No pericardial effusion. Lymph nodes: Mediastinal and right hilar lymphadenopathy. Upper abdominal lymph nodes noted, incompletely imaged. Liver: Hepatomegaly. Low attenuation lesions in the liver too small to accurately characterize on CT. Metastases cannot be excluded. Spleen: Splenomegaly. Adrenal glands: Bilateral nodular adrenal thickening. Stomach and bowel: The stomach appears thickened but is underdistended. Bones/joints: No acute pertinent abnormality seen. Soft tissues: No acute pertinent abnormality seen. IMPRESSION: 1. Left upper and right lower lobe masses most consistent with malignancy. Airspace opacity in the adjacent right lower lobe suggests superimposed pneumonia. Follow-up advised. 2. Emphysema. 3. Additional findings as above. Thank you for allowing us to participate in the care of your patient. Dictated and Authenticated by: Zulma Cobb MD 08/05/2022 11:45 AM Eastern Time ([place] & [place]) HPI General Date/Time Provider Initiated Documentation: 08/05/22 09:51. HPI Narrative: This is a 56-year-old male with a past medical history of bipolar, depression, PTSD, previous pneumothorax after trauma, lung cancer currently receiving radiation therapy, his first dose was 3 days ago on the , who presents today for evaluation of hemoptysis. Patient states that 3 days ago just a little bit prior to his first radiation therapy treatment he began having small amount of blood in his sputum. It would be streaking in the sputum, and there were usually 2 episodes of this per day. This is continued and worsened over the last 72 hours. He now notes a greater amount of blood in the sputum, around a dime size, but still just streaking throughout the sputum. He admits to chronic shortness of breath. His tobacco use is down to 4 cigarettes/day. He denies any syncope or chest pain. He denies any vomiting or diarrhea. He denies any blood thinner use. No other complaints at this time. Related Data Home Medications Medication Instructions Recorded Confirmed bupropion HCl 150 mg 24 hr tablet, 150 mg PO QAM 01/26/22 08/05/22 extended release hydroxyzine HCl 25 mg tablet 25 mg PO BID PRN 01/26/22 08/05/22 olanzapine 10 mg tablet (Zyprexa) 10 mg PO BID 01/26/22 08/05/22 sennosides 8.6 mg tablet (senna) 1 tab PO BID PRN 01/26/22 08/05/22 trazodone 50 mg tablet 50 mg PO DAILY 01/26/22 08/05/22 doxycycline hyclate 100 mg tablet 100 mg PO BID #20 tabs 08/05/22 Previous Rx's Medication Instructions Recorded doxycycline hyclate 100 mg tablet 100 mg PO BID #20 tabs 08/05/22 Allergies Allergy/AdvReac Type Severity Reaction Status Date / Time Sulfa (Sulfonamide Allergy Severe Swelling/Ed Unverified 08/05/22 09:55 Antibiotics) jostin General Stated Complaint: GI Bleed ABA: 3 Review of Systems All systems reviewed & are unremarkable except as noted in HPI and below PFSH All Active Problems (Updated 08/05/22 @ 12:34 by Mickey Ragsdale DO) COVID (Acute) Hemoptysis (Acute) Cough (Acute) Pneumonia (Acute) Suicidal ideation (Acute) Depression (Chronic) Deliberate self-cutting (Acute) Other social stressor (Acute) Agitation (Acute) Hemoptysis (Acute) Thumb injury (Acute) Abnormal chest CT (Acute) GERD (gastroesophageal reflux disease) (Chronic) Hypercholesterolemia (Chronic) Suicidal thoughts (Acute) Leukocytosis (Chronic) Tobacco abuse (Chronic) Suicidal ideation (Acute) Anxiety (Chronic) Depression (Chronic) COPD (chronic obstructive pulmonary disease) (Chronic) Depression (Chronic) Bipolar disorder (Chronic) Depression with suicidal ideation (Acute) Medical History Bipolar disorder Depressed Shingles Stress Suicidal ideations Suicidal thoughts Traumatic pneumothorax 2017, chest tube x2 Surgical History History of ankle surgery S/P thoracostomy tube placement Social History Smoking/Tobacco Use Status: Current every day Tobacco Type: cigarettes Smoking risk assessment performed?: Yes Alcohol Intake: never Drug use: Daily Substance use type: marijuana Current gender identity: male Do you feel safe at home: No (downstairs neighbors) Do you feel safe in your relationship?: Yes Additional Social history: Lives in a private apartment. Has [facility] case management Exam Narrative Exam Narrative: 1.Const: Well-nourished, Well-developed, appearing stated age 2.Eyes: PERRL, no conjunctival injection, and symmetrical lids. 3.ENT: Atraumatic external nose and ears. Moist MM. Neck: Symmetric, trachea midline, No thyromegaly. 4.CVS: +S1/S2, No murmurs or gallops. Peripheral pulses 2+ and equal in all extremities. Brisk capillary refill in all extremities. 5.RESP: Unlabored respiratory effort. Clear to auscultation bilaterally. No wheezes rales or rhonchi 6.GI: Soft, Nontender/Nondistended, No hepatosplenomegaly. No guarding or rebound. 7.MSK: Normocephalic/Atraumatic, Extremities w/o deformity or ttp No cyanosis or clubbing, Normal movement of all extremities 8.Skin: Warm, Dry. No rashes or lesions. 9.Neuro: tool and production planner II-XII grossly intact. Sensation grossly intact, no focal neurologic deficits. 10.Psych: (AAO) x3. Appropriate mood and affect Course Vital Signs Vital signs: Vital Signs Pulse 92 H 08/05/22 09:53 Respiratory Rate 18 08/05/22 09:53 Blood Pressure 132/84 08/05/22 09:53 Pulse Oximetry 95 08/05/22 09:53 Temperature 36.8 C 08/05/22 09:56 Temperature Source Oral 08/05/22 09:56 Pulse 92 H 08/05/22 09:53 Respiratory Rate 18 08/05/22 09:53 Respiratory Effort Normal, Non-Labored 08/05/22 09:54 Blood Pressure 132/84 08/05/22 09:53 Pulse Oximetry 95 08/05/22 09:53 Oxygen Delivery Method Room Air 08/05/22 09:53 Oxygen Flow Rate 0 08/05/22 09:53
[2022-08-05 10:15] LABS: Abs Immature Grans 0.06 10^3/uL (0.0-0.06); Absolute Basophil Count 0.06 10^3/uL (0.0-0.2); Absolute Eosinophil Count 0.17 10^3/uL (0.0-0.7); Absolute Lymphocyte Count 1.34 10^3/uL (1.2-3.4); Absolute Monocyte Count 0.46 10^3/uL (0.1-0.8); Absolute Neutrophil Count 8.28 10^3/uL (1.2-6.7); Basophils % 0.6; Eosinophils % 1.6; HCT 43.8 % (40.0-50.0); HGB 14.2 g/dL (13.5-17.5); Immature Grans % 0.6; Lymphocytes % 12.9; MCH 25.8 pg (27.0-33.0); MCHC 32.4 % (32.0-36.0); MCV 80 fL (80-95); MPV 10.2 fL (8.0-11.0); Monocytes % 4.4; Neutrophils % 79.9; Platelet Count 247 10^3/uL (130-400); RDW 14.4 % (11.8-14.1); RDW-SD 41.6 fL; WBC 10.37 10^3/uL (4.4-10.8)
[2022-08-05 10:27] LABS: PTT Activated 23.9 sec (21.5-31.9); Prothrombin Time 9.9 sec (9.3-11.0)
[2022-08-05] MEDS: Normal Saline - Diluent 50 ML VIAL IJ (10:31)
[2022-08-05] MEDS: Omnipaque 350 MG/ML 100 ML BTL IJ (10:31)
[2022-08-05 10:32] LABS: ALT 24 U/L (16-63); AST 16 U/L (15-37); Albumin 3.6 g/dL (3.4-5.0); Alkaline Phosphatase 147 U/L (46-116); Anion Gap 6.9 mmol/L (3-11); BUN 16 mg/dL (7-18); Bilirubin, Total 0.5 mg/dL (0.2-1.0); CO2 26.1 mmol/L (21.0-32.0); CREATININE 0.9 mg/dL (0.70-1.30); Chloride 100 mmol/L (98-107); Estimated GFR 99.62 (mL/min/1.73m2); Glucose 148 mg/dL (74-106); Potassium 3.7 mmol/L (3.5-5.1); Sodium 133 mmol/L (136-145)
--- NOTE | 2022-08-05 11:45 | DI.VRAD_ITS ---
PROCEDURE INFORMATION: Exam: CTA Chest With Contrast Exam date and time: 08/05/2022 10:31 AM Age: 56 years old Clinical indication: Other: Hemotysis TECHNIQUE: Imaging protocol: Computed tomographic angiography of the chest with contrast. 3D rendering (Not supervised by radiologist): MIP and/or 3D reconstructed images were created by the technologist. COMPARISON: CT CHEST 06/20/2022 FINDINGS: Pulmonary arteries: No pulmonary embolus is appreciated. Aorta: Extensive atherosclerotic changes in the visualized aorta. No aneurysm seen. Lungs: Emphysema. Left upper lobe mass again identified, now measuring approximately 4.7 by 3.5 cm, increased from prior study. Again seen is a right lower lobe mass with adjacent airspace opacity which is more prominent than on prior study. Stable focal opacity in the right upper lobe. Pleural spaces: No pleural effusion. Heart: No pericardial effusion. Lymph nodes: Mediastinal and right hilar lymphadenopathy. Upper abdominal lymph nodes noted, incompletely imaged. Liver: Hepatomegaly. Low attenuation lesions in the liver too small to accurately characterize on CT. Metastases cannot be excluded. Spleen: Splenomegaly. Adrenal glands: Bilateral nodular adrenal thickening. Stomach and bowel: The stomach appears thickened but is underdistended. Bones/joints: No acute pertinent abnormality seen. Soft tissues: No acute pertinent abnormality seen. IMPRESSION: 1. Left upper and right lower lobe masses most consistent with malignancy. Airspace opacity in the adjacent right lower lobe suggests superimposed pneumonia. Follow-up advised. 2. Emphysema. 3. Additional findings as above. Dictated and Authenticated by: Zulma Cobb MD. Ordering:CHELA Arevalo MD
[2022-08-05] MEDS: Doxycycline Hyclate 100 MG CAP PO (12:41)
[2022-08-05] MEDS: Doxycycline Hyclate 100 MG, 2 CAPS/BTL PO (12:46)
== END 2022-08-05 12:46 | disposition home or self-care (01) ==
PROVIDERS: Emergency Provider Student in an Organized Health Care Education/Training Program; PCP Family Medicine
DX: R04.2 Hemoptysis (principal); R05.9 Cough, unspecified; J18.9 Pneumonia, unspecified organism; C34.12 Malignant neoplasm of upper lobe, left bronchus or lung; C34.31 Malignant neoplasm of lower lobe, right bronchus or lung
CPT/HCPCS: 71275; 80053; 99285; 85025; 85610; 85730; 99284; J3490

== ENCOUNTER 2022-08-09 11:31 | Emergency (ER) | payer MEDICAID, SELFPAY ==
[2022-08-09] VITALS (11 sets, daily range): BP systolic 100–127; BP diastolic 66–73; PULSE 74–89; RESP 18–27; TEMP 36.7; O2SAT 94–97
--- NOTE | 2022-08-09 11:30 | RT.EKG_ITS ---
APPROVED REPORT Exam: Resting ECG Reason for Exam: chest pain Patient Location: E HR:81 bpm ECG Measurements Heart Rate 81 AXIS NJ 139 P 59 QRSd 99 QRS 9 QT 372 T 32 QTc 431 Conclusion Sinus rhythm...normal P axis, V-rate 60- 99
[2022-08-09 12:13] LABS: Abs Immature Grans 0.12 10^3/uL (0.0-0.06); Absolute Basophil Count 0.07 10^3/uL (0.0-0.2); Absolute Eosinophil Count 0.16 10^3/uL (0.0-0.7); Absolute Lymphocyte Count 1.43 10^3/uL (1.2-3.4); Absolute Monocyte Count 0.58 10^3/uL (0.1-0.8); Absolute Neutrophil Count 7.22 10^3/uL (1.2-6.7); Basophils % 0.7; Eosinophils % 1.7; Immature Grans % 1.3; Lymphocytes % 14.9; MCH 25.9 pg (27.0-33.0); MCHC 32.6 % (32.0-36.0); MCV 80 fL (80-95); MPV 10.8 fL (8.0-11.0); Monocytes % 6.1; Neutrophils % 75.3; Platelet Count 246 10^3/uL (130-400); RDW 14.6 % (11.8-14.1); RDW-SD 41.8 fL; WBC 9.58 10^3/uL (4.4-10.8)
[2022-08-09] MEDS: Orphenadrine 60 MG/2 ML VIAL IVP (12:22)
[2022-08-09 12:35] LABS: ALT 21 U/L (16-63); AST 20 U/L (15-37); Albumin 3.6 g/dL (3.4-5.0); Alkaline Phosphatase 132 U/L (46-116); Anion Gap 7.9 mmol/L (3-11); BUN 20 mg/dL (7-18); Bilirubin, Total 0.4 mg/dL (0.2-1.0); CO2 27.1 mmol/L (21.0-32.0); CREATININE 0.9 mg/dL (0.70-1.30); Calcium 9.2 mg/dL (8.5-10.1); Chloride 103 mmol/L (98-107); Estimated GFR 99.62 (mL/min/1.73m2); Glucose 115 mg/dL (74-106); Lipase 27 U/L (16-77); Potassium 3.9 mmol/L (3.5-5.1); Sodium 138 mmol/L (136-145); Troponin I < 50 ng/L (<or=60)
--- NOTE | 2022-08-09 12:37 | DI.RAD_ITS ---
Exam(s) XR CHEST 2V PA LATERAL EXAM: XR CHEST 2V PA LATERAL CLINICAL HISTORY: chest pain TECHNIQUE: 2D digital imaging was performed of the chest. Two images were obtained. PA and lateral views were obtained. COMPARISON: CR XR CHEST 2V PA LATERAL from 04/01/2019 CR,XR XR PORTABLE CHEST AP from 06/11/[address] CHEST W from 06/20/2022 FINDINGS: MEDIASTINUM: Normal. HEART: Normal. PULMONARY VASCULATURE: Normal. LUNGS: The left upper and right lower lobe pulmonary masses appears stable radiographically. No new focal consolidating infiltrates are seen. PLEURAL SPACE: No pleural effusion or pneumothorax. BONE:Within normal limits for the patient's age. OTHER FINDINGS:Normal. IMPRESSION: Stable left upper and right lower lobe pulmonary masses. No acute pulmonary process. DATA REPOSITORY: RADIATION DOSE DELIVERED:
--- NOTE | 2022-08-09 14:52 | W.ED.GENAD ---
Discharge Plan Disposition Patient Disposition: Home Discharge Details Clinical Impression: Chest pain, atypical Primary Care Provider: Chung Perry ED Provider: Emilie Carrillo Home Meds and New Rx's Prescriptions: Continued hydroxyzine HCl 25 mg tablet 25 mg PO BID PRN olanzapine [Zyprexa] 10 mg Tablet 10 mg PO BID bupropion HCl 150 mg tablet extended release 24 hr 150 mg PO QAM sennosides [senna] 8.6 mg tablet 1 tab PO BID PRN trazodone 50 mg tablet 50 mg PO DAILY doxycycline hyclate 100 mg tablet 100 mg PO BID Qty: 20 0RF Discharge Instructions Instructions: Chest Pain (ED) Additional Instructions: Please take Tylenol as needed for pain Follow-up with your cytotechnologist supervisor Return earlier should you have new or worsening complaints Your tests today were reassuring Referrals: Chung Perry [Primary Care Provider] - 1 day Medical Decision Making 56-year-old male who presents with mild chest discomfort and sore throat after bronchoscopy yesterday is in no acute distress, EKG without acute abnormality, chest x-ray without acute abnormality per radiology interpretation and my review, specifically no evidence of pneumothorax or subcutaneous emphysema No hypoxia I did consider pulmonary embolism, however patient is not hypoxic, tachypneic, or significantly tachycardic We will order 2 troponins and discharge on Tylenol as needed for discomfort 2 troponins negative, low suspicion for cardiac etiology of patient's complaints Low suspicion for PE, negative CTA 4 days prior to assessment, no calf swelling or tenderness, no tachycardia, tachypnea, or hypoxia Suspect symptoms are related to bronchoscopy performed yesterday after muscle accident patient reports marked improvement Return precautions reviewed and patient expressed understanding Medical Records Medical records reviewed: Yes I reviewed the patient's medical records. Lab Data Lab results reviewed: Yes I reviewed the patient's lab results. HPI General Date/Time Provider Initiated Documentation: 08/09/22 11:32. HPI Narrative: 56-year-old gentleman with history of lung cancer presents with chest pain which started approximately 2 hours after bronchoscopy yesterday for lung cancer. Received radiation Sunday this week. Denies any worsening hemoptysis, has had small hemoptysis since his CTA 4 days ago. Denies any change in this. Denies any shortness of breath. States he has a mild sore throat from the bronchoscopy. Denies any calf pain or swelling. Denies any fever or chills. Has been able to eat and drink without difficulty. Related Data Home Medications Medication Instructions Recorded Confirmed bupropion HCl 150 mg 24 hr tablet, 150 mg PO QAM 01/26/22 08/09/22 extended release hydroxyzine HCl 25 mg tablet 25 mg PO BID PRN 01/26/22 08/09/22 olanzapine 10 mg tablet (Zyprexa) 10 mg PO BID 01/26/22 08/09/22 sennosides 8.6 mg tablet (senna) 1 tab PO BID PRN 01/26/22 08/09/22 trazodone 50 mg tablet 50 mg PO DAILY 01/26/22 08/09/22 doxycycline hyclate 100 mg tablet 100 mg PO BID #20 tabs 08/05/22 08/09/22 Previous Rx's Medication Instructions Recorded doxycycline hyclate 100 mg tablet 100 mg PO BID #20 tabs 08/05/22 Allergies Allergy/AdvReac Type Severity Reaction Status Date / Time Sulfa (Sulfonamide Allergy Severe Swelling/Ed Unverified 08/09/22 11:38 Antibiotics) jostin General Stated Complaint: Chest Pain ABA: 3 PFSH All Active Problems (Updated 08/09/22 @ 14:56 by RENAE Matt) COVID (Acute) Hemoptysis (Acute) Cough (Acute) Pneumonia (Acute) Chest pain, atypical (Acute) Suicidal ideation (Acute) Depression (Chronic) Deliberate self-cutting (Acute) Other social stressor (Acute) Agitation (Acute) Hemoptysis (Acute) Thumb injury (Acute) Abnormal chest CT (Acute) GERD (gastroesophageal reflux disease) (Chronic) Hypercholesterolemia (Chronic) Suicidal thoughts (Acute) Leukocytosis (Chronic) Tobacco abuse (Chronic) Suicidal ideation (Acute) Anxiety (Chronic) Depression (Chronic) COPD (chronic obstructive pulmonary disease) (Chronic) Depression (Chronic) Bipolar disorder (Chronic) Depression with suicidal ideation (Acute) Medical History Bipolar disorder Depressed Shingles Stress Suicidal ideations Suicidal thoughts Traumatic pneumothorax 2017, chest tube x2 Surgical History History of ankle surgery S/P thoracostomy tube placement Social History (Reviewed 08/05/22 @ 10:00 by MARTHA Gant Smoking/Tobacco Use Status: Current every day Tobacco Type: cigarettes Smoking risk assessment performed?: Yes Alcohol Intake: never Drug use: Daily Substance use type: marijuana Current gender identity: male Do you feel safe at home: No (downstairs neighbors) Do you feel safe in your relationship?: Yes Additional Social history: Lives in a private apartment. Has [facility] case management Exam Const General: cooperative and comfortable Orientation: alert and oriented x3 Eyes Pupils: PERRL Chest Other: No crepitus Resp Effort & Inspection: normal respiratory effort Auscultation: clear to auscultation bilaterally Cardio Rate: regular rate Rhythm: regular rhythm GI Inspection: normal to inspection Skin General skin exam: no rashes or lesions noted Neuro General: patient alert and patient oriented x3 Course Vital Signs Vital signs: Vital Signs Temperature 36.7 C 08/09/22 11:34 Pulse 86 08/09/22 11:34 Respiratory Rate 20 08/09/22 11:34 Pulse Oximetry 97 08/09/22 11:34 Temperature 36.7 C 08/09/22 11:34 Temperature Source Temporal Artery Scan 08/09/22 11:34 Pulse 86 08/09/22 11:34 Respiratory Rate 20 08/09/22 11:34 Pulse Oximetry 97 08/09/22 11:34 Oxygen Delivery Method Room Air 08/09/22 11:34 Oxygen Flow Rate 0 08/09/22 11:34 Pain Level 5 08/09/22 11:34 Lab/Test Results Lab/Test Results: Laboratory Tests Range/Units 08/09/22 08/09/22 11:50 11:50 WBC (4.4-10.8) 10^3/uL 9.58 RBC (4.36-5.78) 10^6/uL 5.40 Hgb (13.5-17.5) g/dL 14.0 Hct (40.0-50.0) % 43.0 MCV (80-95) fL 80 MCH (27.0-33.0) pg 25.9 L MCHC (32.0-36.0) % 32.6 RDW (11.8-14.1) % 14.6 H Plt Count (130-400) 10^3/uL 246 MPV (8.0-11.0) fL 10.8 Immature Gran % 1.3 Neutrophils % 75.3 Lymphocytes % 14.9 Monocytes % 6.1 Eosinophils % 1.7 Basophils % 0.7 Nucleated RBC % (0.0-0.3) % 0.0 Absolute Neutrophils (1.2-6.7) 10^3/uL 7.22 H Absolute Lymphocytes (1.2-3.4) 10^3/uL 1.43 Absolute Monocytes (0.1-0.8) 10^3/uL 0.58 Absolute Eosinophils (0.0-0.7) 10^3/uL 0.16 Absolute Basophils (0.0-0.2) 10^3/uL 0.07 Sodium (136-145) mmol/L 138 Potassium (3.5-5.1) mmol/L 3.9 Chloride (98-107) mmol/L 103 Carbon Dioxide (21.0-32.0) mmol/L 27.1 Anion Gap (3-11) mmol/L 7.9 BUN (7-18) mg/dL 20 H Creatinine (0.70-1.30) mg/dL 0.9 Est GFR (CKD-EPI 2020) (mL/min/1.73m2) 99.62 Glucose (74-106) mg/dL 115 H Calcium (8.5-10.1) mg/dL 9.2 Total Bilirubin (0.2-1.0) mg/dL 0.4 AST (15-37) U/L 20 ALT (16-63) U/L 21 Alkaline Phosphatase (46-116) U/L 132 H Troponin I (<or=60) ng/L < 50 Total Protein (6.4-8.2) g/dL 8.0 Albumin (3.4-5.0) g/dL 3.6 Lipase (16-77) U/L 27
[2022-08-09 15:31] LABS: Troponin I < 50 ng/L (<or=60)
== END 2022-08-09 16:01 | disposition home or self-care (01) ==
PROVIDERS: Emergency Provider Physician Assistant; PCP Family Medicine
DX: R07.89 Other chest pain (principal)
CPT/HCPCS: 80053; 83690; 93005; 96374; 99284; J2360; 71046; 84484; 85025; 93010

== ENCOUNTER 2022-08-22 15:50 | Emergency (ER) | payer MEDICAID, SELFPAY ==
[2022-08-22 15:53] VITALS: BP 132/91; PULSE 96; RESP 18; TEMP 36.3; O2SAT 96
--- NOTE | 2022-08-22 16:06 | NUR.NOTE ---
Nursing Note: When patient arrived he was noncompliant with facility protocols. PT stated well then I will just leave and set out in front of a bus He finally agreed to stay but stated that he would bring the wrath down on the staff if we lost his phone.
--- NOTE | 2022-08-22 18:22 | NUR.NOTE ---
Nursing Note: Patient requesting medication for anxiety. MITZI grant.
[2022-08-22] MEDS: LORazepam 0.5 MG TAB PO (18:30)
[2022-08-22] MEDS: traZODone 50 MG TAB PO (18:30)
[2022-08-22] MEDS: hydrOXYzine HCL 25 MG TAB PO (18:30)
[2022-08-22] MEDS: OLANZapine 10 MG TAB PO (18:30)
--- NOTE | 2022-08-22 19:27 | W.ED.GENAD ---
Discharge Plan Disposition Patient Disposition: Home Discharge Details Clinical Impression: Bipolar disorder, Depression, Suicidal thoughts, Anxiety Primary Care Provider: Chung Perry ED Provider: Wilton Bosch Home Meds and New Rx's Prescriptions: Continued hydroxyzine HCl 25 mg tablet 25 mg PO BID PRN olanzapine [Zyprexa] 10 mg Tablet 10 mg PO BID bupropion HCl 150 mg tablet extended release 24 hr 150 mg PO QAM sennosides [senna] 8.6 mg tablet 1 tab PO BID PRN trazodone 50 mg tablet 50 mg PO DAILY Discontinued doxycycline hyclate 100 mg tablet 100 mg PO BID Qty: 20 0RF Patient Comments: not taking Discharge Instructions Instructions: Depression (ED), Anxiety (ED) Additional Instructions: Continue to take your normally prescribed medications and do not skip doses as I feel this may be some of the cause of your increased symptoms. Please follow the safety plan as established. If you have any change in your condition feel free to return to the emergency department or follow-up with your primary care provider for reassessment Referrals: Chung Perry [Primary Care Provider] - (As needed for reassessment) Medical Decision Making Patient presenting to the emergency department for chief complaint of depression anxiety and suicidal ideations. Patient states this is similar to previous episodes. Patient states significant social stressors with neighbors and previous employer along with recently stopping his cancer treatment due to not feeling well on it. Patient states that he was thinking of cutting his risk and picked a scab on his left forearm. Patient denies any ingestion of substances is alert and oriented. Physical exam is unremarkable. Patient well-known to emergency department and appears at baseline from my previous interactions with patient. Patient does not appear altered in any way and smart form was utilized to medically clear patient. Will obtain [employer] evaluation as he is one of the clients. Did speak with [employer] worker prior to evaluation of patient and they did state that they feel patient's significant increase of anxiety is probably his cancer diagnosis and stopping treatment. They state that all of his other statements are at patient's baseline. We did discuss palliative care and hospice consult for patient as this is not occurred. [employer] worker does state that would be beneficial to patient and patient was placed upon the referral list for consult due to cessation of his cancer treatment for lung cancer with worsening findings recently per patient report. Patient was able to be discharged home on safety plan given that he is our [employer] client and well-known to their services. Patient is in agreement with this plan of care. He was given all of his nightly medications and recommended to take his meds on a scheduled basis as he had not taken them for 48 hours which I feel has contributed to some of his symptoms. After discussion of diagnosis and plan of care patient has no further needs, questions, or concerns and states clear understanding to return to the emergency department for any worsening symptoms. This documentation was generated using [employer] dictation system, please disregard any oddities of phrase or misspellings. HPI General Mode of arrival: ambulatory. Date/Time Provider Initiated Documentation: 08/22/22 16:09. Limitations to Documentation: no limitations. History of Present Illness 56 year old M presents to the emergency department with the chief complaint of Depression anxiety suicidal thoughts, described as similar to prior episodes, Patient started experiencing this day(s) (2) and it has been constant. No relieving factors improve symptom(s), Other factors that worsen symptoms (Poor social situation along with stopping cancer treatment) . Patient notes no other symptoms.. Patient did receive the following treatments prior to arrival, none Related Data Home Medications Medication Instructions Recorded Confirmed bupropion HCl 150 mg 24 hr tablet, 150 mg PO QAM 01/26/22 08/22/22 extended release hydroxyzine HCl 25 mg tablet 25 mg PO BID PRN 01/26/22 08/22/22 olanzapine 10 mg tablet (Zyprexa) 10 mg PO BID 01/26/22 08/22/22 sennosides 8.6 mg tablet (senna) 1 tab PO BID PRN 01/26/22 08/22/22 trazodone 50 mg tablet 50 mg PO DAILY 01/26/22 08/22/22 Allergies Allergy/AdvReac Type Severity Reaction Status Date / Time Sulfa (Sulfonamide Allergy Severe Swelling/Ed Unverified 08/22/22 15:56 Antibiotics) jostin General Stated Complaint: PsychEval ABA: 2 Review of Systems Constitutional Constitutional: Denies chills, Denies fever(s) and Reports poor appetite Cardiovascular Cardiovascular: Denies chest pain Gastrointestinal Gastrointestinal: Denies abdominal pain Integumentary/Breasts Skin/Breast: Reports wounds (Abrasion left forearm) Psychiatric Psychiatric: Reports as per HPI, Reports abnormal sleep pattern, Reports anxiety, Reports change in appetite, Reports depression, Reports irritability and Reports suicidal ideation [facility] All Active Problems (Updated 08/22/22 @ 20:50 by Wilton Bosch NP) COVID (Acute) Hemoptysis (Acute) Cough (Acute) Pneumonia (Acute) Chest pain, atypical (Acute) Suicidal ideation (Acute) Depression (Chronic) Deliberate self-cutting (Acute) Other social stressor (Acute) Agitation (Acute) Hemoptysis (Acute) Thumb injury (Acute) Abnormal chest CT (Acute) GERD (gastroesophageal reflux disease) (Chronic) Hypercholesterolemia (Chronic) Suicidal thoughts (Acute) Leukocytosis (Chronic) Tobacco abuse (Chronic) Suicidal ideation (Acute) Anxiety (Chronic) Depression (Chronic) COPD (chronic obstructive pulmonary disease) (Chronic) Depression (Chronic) Bipolar disorder (Chronic) Depression with suicidal ideation (Acute) Medical History Bipolar disorder Depressed Shingles Stress Suicidal ideations Suicidal thoughts Traumatic pneumothorax 2017, chest tube x2 Surgical History History of ankle surgery S/P thoracostomy tube placement Social History Smoking/Tobacco Use Status: Current every day Tobacco Type: cigarettes Smoking risk assessment performed?: Yes Alcohol Intake: never Drug use: Daily Substance use type: marijuana Current gender identity: male Do you feel safe at home: No (downstairs neighbors) Do you feel safe in your relationship?: Yes Additional Social history: Lives in a private apartment. Has [facility] case management Exam Const General: cooperative Orientation: alert, awake and oriented x3 Limitations: mental status not altered [facility] Head: normal to inspection, normocephalic and atraumatic Ears: hearing grossly normal bilaterally Mouth: moist mucous membranes Eyes General: appearance normal, both eyes and all related structures Pupils: PERRL EOM: EOM intact bilaterally Resp Effort & Inspection: normal respiratory effort, able to speak in complete sentences and no respiratory distress Auscultation: clear to auscultation bilaterally Cardio Rate: regular rate and not tachycardic Rhythm: regular rhythm Heart Sounds: S1 normal and S2 normal Neuro General: patient alert, patient awake, patient oriented x3, gait normal, moves all extremities and no focal motor deficits Cognition: normal cognition Speech: speech normal Psych Speech and Movement: speech and movement normal and speech clear Affect: sad Attitude: cooperative Thought Process: normal Thought Content: normal and suicidality Course Vital Signs Vital signs: Vital Signs Temperature 36.3 C L 08/22/22 15:53 Pulse 96 H 08/22/22 15:53 Respiratory Rate 18 08/22/22 15:53 Blood Pressure 132/91 H 08/22/22 15:53 Pulse Oximetry 96 08/22/22 15:53 Temperature 36.3 C L 08/22/22 15:53 Temperature Source Oral 08/22/22 15:53 Pulse 96 H 08/22/22 15:53 Respiratory Rate 18 08/22/22 15:53 Respiratory Effort Normal, Non-Labored 08/22/22 15:55 Blood Pressure 132/91 H 08/22/22 15:53 Pulse Oximetry 96 08/22/22 15:53 Oxygen Delivery Method Room Air 08/22/22 15:53 Oxygen Flow Rate 0 08/22/22 15:53
--- NOTE | 2022-08-22 22:19 | NUR.NOTE ---
Referral made per Justin Bosch for Palliative care/Hospice as the patient is stopping the cancer treatment. Put the referral in the care manger's box for follow up assistance.Nursing Note:
== END 2022-08-22 21:03 | disposition home or self-care (01) ==
PROVIDERS: Emergency Provider Nurse Practitioner Family; PCP Family Medicine
DX: F31.9 Bipolar disorder, unspecified (principal); F41.9 Anxiety disorder, unspecified; R45.851 Suicidal ideations
CPT/HCPCS: 99284

== ENCOUNTER 2022-08-26 12:38 | Emergency (ER) | payer MEDICAID, SELFPAY ==
[2022-08-26 12:44] VITALS: BP 129/92; PULSE 93; RESP 18; TEMP 36.7; O2SAT 92
--- NOTE | 2022-08-26 15:02 | W.ED.GENAD ---
Discharge Plan Disposition Patient Disposition: Against Medical Advice Discharge Details Clinical Impression: Depression, Suicidal thoughts Primary Care Provider: Chung Perry ED Provider: Emilie Carrillo Home Meds and New Rx's Prescriptions: No Action hydroxyzine HCl 25 mg tablet 25 mg PO BID PRN olanzapine [Zyprexa] 10 mg Tablet 10 mg PO BID bupropion HCl 150 mg tablet extended release 24 hr 150 mg PO QAM sennosides [senna] 8.6 mg tablet 1 tab PO BID PRN trazodone 50 mg tablet 50 mg PO DAILY Discharge Data Discharge Date/Time-TO BE ENTERED AT DEPARTURE: 08/26/22 15:15 Medical Decision Making 56-year-old gentleman who presents with intermittent suicidal ideation with terminal lung cancer diagnosis At time of assessment reports suicidality without specific plan at this time Previously discussed with [facility] who sent him to the emergency department for likely placement Maintains voluntary status after discussion with [facility] at this time Fully alert and oriented, in no acute distress Does report anxiety, given single dose of Ativan 1 mg On reassessment, patient is refusing to have blood work drawn, he is made aware that his stay in this facility will need to have baseline labs He is adamantly refusing blood draw at this time and requesting to leave this facility He is voluntary status at this time without acute suicidal ideation and is stable for reassessment by his provider in the outpatient setting At this time, he is fully alert and oriented, agitated, ambulatory out of this facility [facility] chest was notified and they will contact [facility] to make then aware HPI General Date/Time Provider Initiated Documentation: 08/26/22 12:57. HPI Narrative: This 56-year-old male presents with report of suicidal ideation without active plan. He states that he had a recent diagnosis of terminal lung cancer and is feeling very anxious and depressed. He has not been in contact with his counselor today. He states that he has had intermittent thoughts of wanting to take his life but does not have a specific plan at time of my assessment. He reportedly spoke to [facility] prior to arrival and was sent here for evaluation. Related Data Home Medications Medication Instructions Recorded Confirmed bupropion HCl 150 mg 24 hr tablet, 150 mg PO QAM 01/26/22 08/24/22 extended release hydroxyzine HCl 25 mg tablet 25 mg PO BID PRN 01/26/22 08/24/22 olanzapine 10 mg tablet (Zyprexa) 10 mg PO BID 01/26/22 08/24/22 sennosides 8.6 mg tablet (senna) 1 tab PO BID PRN 01/26/22 08/24/22 trazodone 50 mg tablet 50 mg PO DAILY 01/26/22 08/24/22 Allergies Allergy/AdvReac Type Severity Reaction Status Date / Time Sulfa (Sulfonamide Allergy Severe Swelling/Ed Unverified 08/24/22 09:31 Antibiotics) jostin General Stated Complaint: PsychEval ABA: 2 PFSH All Active Problems (Updated 08/27/22 @ 13:22 by RENAE Matt) Palliative care patient (Acute) Bilateral lung cancer (Acute) COVID (Acute) Hemoptysis (Acute) Cough (Acute) Pneumonia (Acute) Chest pain, atypical (Acute) Suicidal ideation (Acute) Depression (Chronic) Deliberate self-cutting (Acute) Other social stressor (Acute) Agitation (Acute) Hemoptysis (Acute) Thumb injury (Acute) Abnormal chest CT (Acute) GERD (gastroesophageal reflux disease) (Chronic) Hypercholesterolemia (Chronic) Suicidal thoughts (Acute) Leukocytosis (Chronic) Tobacco abuse (Chronic) Suicidal ideation (Acute) Anxiety (Chronic) Depression (Chronic) COPD (chronic obstructive pulmonary disease) (Chronic) Depression (Chronic) Bipolar disorder (Chronic) Depression with suicidal ideation (Acute) Medical History Bipolar disorder Depressed Shingles Stress Suicidal ideations Suicidal thoughts Traumatic pneumothorax 2017, chest tube x2 Surgical History History of ankle surgery S/P thoracostomy tube placement Social History Smoking/Tobacco Use Status: Current every day Tobacco Type: cigarettes Smoking risk assessment performed?: Yes Alcohol Intake: never Drug use: Daily Substance use type: marijuana Current gender identity: male Do you feel safe at home: No (does not feel safe with self) Do you feel safe in your relationship?: Yes Additional Social history: Lives in a private apartment. Has [facility] case management Exam Const General: cooperative, comfortable and no acute distress Eyes Pupils: PERRL Resp Effort & Inspection: normal respiratory effort Cardio Rate: regular rate Rhythm: regular rhythm Neuro General: patient alert and patient oriented x3 Cranial Nerves: CN's II-XI intact bilaterally and tongue midline Psych Appearance: well kempt Mental Status: mental status grossly normal Speech and Movement: speech and movement normal Affect: normal affect Attitude: cooperative Course Vital Signs Vital signs: Vital Signs Temperature 36.7 C 08/26/22 12:44 Pulse 93 H 08/26/22 12:44 Respiratory Rate 18 08/26/22 12:44 Blood Pressure 129/92 H 08/26/22 12:44 Pulse Oximetry 92 08/26/22 12:44 Temperature 36.7 C 08/26/22 12:44 Temperature Source Oral 08/26/22 12:44 Pulse 93 H 08/26/22 12:44 Respiratory Rate 18 08/26/22 12:44 Respiratory Effort Normal 08/26/22 12:56 Blood Pressure 129/92 H 08/26/22 12:44 Blood Pressure Position Sitting 08/26/22 12:44 Pulse Oximetry 92 08/26/22 12:44 Oxygen Delivery Method Room Air 08/26/22 12:44 Oxygen Flow Rate 0 08/26/22 12:44
[2022-08-26 15:15] LABS: *AMPHETAMINES SCREEN URINE Negative (Negative); *BARBITURATES SCREEN URINE Negative (Negative); *BENZODIAZEPINES SCREEN URINE Negative (Negative); Cannabinoids THC Positive (Negative); Cocaine Screen,Urine Negative (Negative); METHADONE URINE SCREEN Negative (Negative); OPIATES URINE SCREEN Negative (Negative); Tricyclic Antidepressants Negative (Negative)
== END 2022-08-26 15:15 | disposition left against medical advice (07) ==
PROVIDERS: Emergency Provider Physician Assistant; PCP Family Medicine
DX: F32.A Depression, unspecified (principal); R45.851 Suicidal ideations; F41.9 Anxiety disorder, unspecified
CPT/HCPCS: 80053; 80307; 99283; 84443; 85025; 99284

== ENCOUNTER 2022-08-28 16:49 | Emergency (ER) | payer MEDICAID, SELFPAY ==
[2022-08-28 16:49] VITALS: BP 136/95; PULSE 103; RESP 15; TEMP 36.9; O2SAT 94
--- NOTE | 2022-08-28 17:15 | W.ED.GENAD ---
Discharge Plan Disposition Patient Disposition: Home Condition: Stable Discharge Details Clinical Impression: Depression Primary Care Provider: Chung Perry ED Provider: Francisco Majano Home Meds and New Rx's Prescriptions: Continued hydroxyzine HCl 25 mg tablet 25 mg PO BID PRN olanzapine [Zyprexa] 10 mg Tablet 10 mg PO BID bupropion HCl 150 mg tablet extended release 24 hr 150 mg PO QAM sennosides [senna] 8.6 mg tablet 1 tab PO BID PRN trazodone 50 mg tablet 50 mg PO DAILY Discharge Instructions Instructions: Depression (ED) Additional Instructions: Please follow-up with DEPARTMENT OF SOCIOLOGY CHAIR. The plan at discharge is for you to go to the care bed tomorrow for respite stay. Please contact your primary care physician to arrange follow-up. Return to the ER immediately for any worsening or new concerning symptoms. [facility]] Chung Perry [Primary Care Provider] - Discharge Data Discharge Date/Time-TO BE ENTERED AT DEPARTURE: 08/28/22 18:51 Medical Decision Making 1720??56-year-old male with history of depression, bipolar disorder, COPD, lung cancer, here voluntarily with depressed mood, self-harm by cutting with superficial lacerations left forearm. Wound care provided. Wound was cleansed and dressed by nursing. Patient medically screened in no acute medical condition identified. Plan to pursue psychiatric treatment. I will consult crisis screener.] Patient is not actively suicidal. No indication for one-to-one patient observer at this time. 1842 --patient reassessed and is remained stable. Patient was seen by [facility] services crisis screener and agrees with no indication for inpatient treatment. He does feel that care bed may be appropriate. -- Safe discharge plan was established. Patient will plan to go to care bed tomorrow for respite stay. He feels comfortable going home tonight. Usual and customary discharge instructions were reviewed with the patient. HPI General Mode of arrival: EMS. Date/Time Provider Initiated Documentation: 08/28/22 17:00. Limitations to Documentation: no limitations. Information obtained by: patient and EMS. HPI Narrative: 56-year-old male with history of active lung cancer, depression, here with chief complaint of depression. Patient notes lack of motivation to live. He has been feeling quite down after recently meeting with palliative care regarding his lung cancer diagnosis. He has had recent treatment with radiation therapy that he did not tolerate well. Patient notes he recently cut his left forearm with a razor blade. He does not feel suicidal currently and feels safe here in the hospital. He is here voluntarily seeking assistance. Related Data Home Medications Medication Instructions Recorded Confirmed bupropion HCl 150 mg 24 hr tablet, 150 mg PO QAM 01/26/22 08/28/22 extended release hydroxyzine HCl 25 mg tablet 25 mg PO BID PRN 01/26/22 08/28/22 olanzapine 10 mg tablet (Zyprexa) 10 mg PO BID 01/26/22 08/28/22 sennosides 8.6 mg tablet (senna) 1 tab PO BID PRN 01/26/22 08/28/22 trazodone 50 mg tablet 50 mg PO DAILY 01/26/22 08/28/22 Allergies Allergy/AdvReac Type Severity Reaction Status Date / Time Sulfa (Sulfonamide Allergy Severe Swelling/Ed Unverified 08/28/22 16:53 Antibiotics) jostin General Stated Complaint: PsychEval ABA: 2 Review of Systems All systems reviewed & are unremarkable except as noted in HPI and below Constitutional Constitutional: Denies fever(s) Respiratory Comments: Chronic dyspnea on exertion, chronic pleuritic chest discomfort Psychiatric Psychiatric: Reports as per HPI PFSH All Active Problems (Updated 08/28/22 @ 18:47 by Francisco Majano MD) Palliative care patient (Acute) Bilateral lung cancer (Acute) COVID (Acute) Hemoptysis (Acute) Cough (Acute) Pneumonia (Acute) Chest pain, atypical (Acute) Suicidal ideation (Acute) Depression (Chronic) Deliberate self-cutting (Acute) Other social stressor (Acute) Agitation (Acute) Hemoptysis (Acute) Thumb injury (Acute) Abnormal chest CT (Acute) GERD (gastroesophageal reflux disease) (Chronic) Hypercholesterolemia (Chronic) Suicidal thoughts (Acute) Leukocytosis (Chronic) Tobacco abuse (Chronic) Suicidal ideation (Acute) Anxiety (Chronic) Depression (Chronic) COPD (chronic obstructive pulmonary disease) (Chronic) Depression (Chronic) Bipolar disorder (Chronic) Depression with suicidal ideation (Acute) Medical History Bipolar disorder Depressed Shingles Stress Suicidal ideations Suicidal thoughts Traumatic pneumothorax 2017, chest tube x2 Surgical History History of ankle surgery S/P thoracostomy tube placement Social History Smoking/Tobacco Use Status: Current every day Tobacco Type: cigarettes Smoking risk assessment performed?: Yes Alcohol Intake: never Drug use: Daily Substance use type: marijuana Current gender identity: male Do you feel safe at home: No (does not feel safe with self) Do you feel safe in your relationship?: Yes Additional Social history: Lives in a private apartment. Has [facility] case management Exam Const General: cooperative and no acute distress HENMT Mouth: moist mucous membranes Eyes Conjunctivae: normal conjunctivae Sclera: normal sclerae Neck Neck: trachea midline and supple Resp Auscultation: clear to auscultation bilaterally, no rales, no rhonchi and no wheezes Cardio Rate: regular rate and not tachycardic Rhythm: regular rhythm GI Palpation: soft, not firm, no guarding, no masses, not rigid and nontender Skin General skin exam: no rashes or lesions noted Neuro General: patient alert, patient awake and tone normal Extrem General: no edema Psych Appearance: grossly normal Mental Status: mental status grossly normal and other (Depressed) Speech and Movement: speech and movement normal Mood: other (Depressed) Attitude: cooperative Insight: insight good Course Vital Signs Vital signs: Vital Signs Temperature 36.9 C 08/28/22 16:49 Pulse 103 H 08/28/22 16:49 Respiratory Rate 15 08/28/22 16:49 Blood Pressure 136/95 H 08/28/22 16:49 Pulse Oximetry 94 08/28/22 16:49 Temperature 36.9 C 08/28/22 16:49 Temperature Source Oral 08/28/22 16:49 Pulse 103 H 08/28/22 16:49 Respiratory Rate 15 08/28/22 16:49 Respiratory Effort Normal 08/28/22 16:52 Blood Pressure 136/95 H 08/28/22 16:49 Blood Pressure Position Sitting 08/28/22 16:49 Pulse Oximetry 94 08/28/22 16:49 Oxygen Delivery Method Room Air 08/28/22 16:49 Oxygen Flow Rate 0 08/28/22 16:49 Pain Level 0 08/28/22 16:49
[2022-08-28 18:48] VITALS: BP 130/90; PULSE 90; RESP 14; O2SAT 95
== END 2022-08-28 18:51 | disposition home or self-care (01) ==
PROVIDERS: Emergency Provider Student in an Organized Health Care Education/Training Program; PCP Family Medicine
DX: F32.A Depression, unspecified (principal); R45.851 Suicidal ideations; X78.8XXA Intentional self-harm by other sharp object, initial encounter
CPT/HCPCS: 87635; 99285

== ENCOUNTER 2022-09-27 11:33 | Emergency (ER) | payer MEDICAID, SELFPAY ==
[2022-09-27 11:34] VITALS: BP 119/66; PULSE 88; RESP 15; TEMP 36.9; O2SAT 97
--- NOTE | 2022-09-27 11:46 | ED.GENADUL_ITS ---
Discharge Plan Disposition Patient Disposition: Home Condition: Stable Discharge Details Clinical Impression: Nail avulsion of toe Primary Care Provider: Chung Perry ED Provider: Wilton Bosch Home Meds and New Rx's Prescriptions: Continued hydroxyzine HCl 25 mg tablet 25 mg PO BID PRN olanzapine [Zyprexa] 10 mg Tablet 10 mg PO BID bupropion HCl 150 mg tablet extended release 24 hr 150 mg PO QAM sennosides [senna] 8.6 mg tablet 1 tab PO BID PRN trazodone 50 mg tablet 50 mg PO DAILY Discharge Instructions Instructions: Nail Avulsion (ED) Additional Instructions: Please use the bacitracin antibiotic ointment twice daily for the next 3 to 4 days. Then keep wound clean and dry and monitor for healing. It will take months or longer for the toenail to fully grow back and to establish how much of it will grow back. In the meantime monitor for any signs of infection and return immediately if these occur. You may perform activities as tolerated by pain. Referrals: Chung Perry [Primary Care Provider] - (As needed for reassessment) Medical Decision Making Patient presenting to the emergency department for chief complaint of great toe injury. Patient reports that he caught his toenail on a chair and avulsed part of the toenail. Due to the toenail almost being off he removed a portion of his toenail and is simply coming in to have it checked. Patient denies any other injury or trauma. Patient has no bony tenderness to the toe, tenderness to the surrounding area of the lateral nail which is avulsed. No signs of infection, no purulent drainage, exam otherwise unremarkable. Beyond discussed staying acute wound care with patient I do not feel there are any emergent interventions needed at this time and again given no signs of infection I do not feel that antibiotics need to be started. Patient was encouraged to continue to monitor for signs of infection and return immediately if these occur otherwise to follo w-up with primary care provider as needed. After discussion of diagnosis and plan of care patient has no further needs, questions, or concerns and states clear understanding to return to the emergency department for any worsening symptoms. This documentation was generated using [employer] system, please disregard any oddities of phrase or misspellings. HPI General Mode of arrival: ambulatory . Date/Time Provider Initiated Documentation: 09/27/22 11:37 . Limitations to Documentation: no limitations . Information obtained by: patient and RN notes reviewed . History of Present Illness 56 year old M presents to the emergency department with the chief complaint of Left great toe injury, described as moderate, with intensity rated at 7. Quality is described as aching, and is localized to the left. Patient reports no radiation. Patient started experiencing this day(s) (1) and it has been constant. No relieving factors improve symptom(s), Patient notes no other symptoms.. Patient did receive the following treatments prior to arrival, none Related Data Home Medications Medication Instructions Recorded Confirmed bupropion HCl 150 mg 24 hr tablet, 150 mg PO QAM 01/26/22 08/28/22 extended release hydroxyzine HCl 25 mg tablet 25 mg PO BID PRN 01/26/22 08/28/22 olanzapine 10 mg tablet (Zyprexa) 10 mg PO BID 01/26/22 08/28/22 sennosides 8.6 mg tablet (senna) 1 tab PO BID PRN 01/26/22 08/28/22 trazodone 50 mg tablet 50 mg PO DAILY 01/26/22 08/28/22 Allergies Allergy/AdvReac Type Severity Reaction Status Date / Time Sulfa (Sulfonamide Allergy Severe Swelling/Ed Unverified 08/28/22 16:53 Antibiotics) jostin General Stated Complaint: Orthopedic ABA: 4 Review of Systems Musculoskeletal Musculoskeletal: Reports as per HPI, Denies joint swelling and Denies limited range of motion Integumentary/Breasts Skin/Breast: Reports as per HPI and Denies erythema PFSH All Active Problems (Updated 09/27/22 @ 11:49 by Wilton Bosch NP) Nail avulsion of toe (Acute) Palliative care patient (Acute) Bilateral lung cancer (Acute) COVID (Acute) Suicidal ideation (Acute) Depression (Chronic) Deliberate self-cutting (Acute) Other social stressor (Acute) Agitation (Acute) Hemoptysis (Acute) Thumb injury (Acute) Abnormal chest CT (Acute) GERD (gastroesophageal reflux disease) (Chronic) Hypercholesterolemia (Chronic) Suicidal thoughts (Acute) Leukocytosis (Chronic) Tobacco abuse (Chronic) Suicidal ideation (Acute) Anxiety (Chronic) Depression (Chronic) COPD (chronic obstructive pulmonary disease) (Chronic) Depression (Chronic) Bipolar disorder (Chronic) Depression with suicidal ideation (Acute) Medical History Bipolar disorder Depressed Shingles Stress Suicidal ideations Suicidal thoughts Traumatic pneumothorax 2017, chest tube x2 Surgical History History of ankle surgery S/P thoracostomy tube placement Social History Smoking/Tobacco Use Status: Current every day Tobacco Type: cigarettes Smoking risk assessment performed?: Yes Alcohol Intake: never Drug use: Daily Substance use type: marijuana Current gender identity: male Do you feel safe at home: No (does not feel safe with self) Do you feel safe in your relationship?: Yes Additional Social history: Lives in a private apartment. Has [facility] case management Exam Const General: cooperative, no acute distress and not ill appearing Orientation: alert, awake and oriented x3 HENMT Mouth: moist mucous membranes Resp Effort & Inspection: normal respiratory effort, able to speak in complete sentences and no respiratory distress Neuro General: patient alert, patient awake, patient oriented x3, moves all extremities and no focal motor deficits Sensory Exam: no sensory deficits noted Extrem General: normal exam except as noted Left lower extremity: foot Details: abnormal to inspection Details: other (Partial lateral nail avulsion to great toe) Course Vital Signs Vital signs: Vital Signs Temperature 36.9 C 09/27/22 11:34 Pulse 88 09/27/22 11:34 Respiratory Rate 15 09/27/22 11:34 Blood Pressure 119/66 09/27/22 11:34 Pulse Oximetry 97 09/27/22 11:34 Temperature 36.9 C 09/27/22 11:34 Temperature Source Temporal Artery Scan 09/27/22 11:34 Pulse 88 09/27/22 11:34 Respiratory Rate 15 09/27/22 11:34 Respiratory Effort Normal 09/27/22 11:37 Blood Pressure 119/66 09/27/22 11:34 Blood Pressure Position Sitting 09/27/22 11:34 Pulse Oximetry 97 09/27/22 11:34 Oxygen Delivery Method Room Air 09/27/22 11:34 Oxygen Flow Rate 0 09/27/22 11:34 Pain Level 7 09/27/22 11:37
== END 2022-09-27 12:02 | disposition home or self-care (01) ==
PROVIDERS: Emergency Provider Nurse Practitioner Family; PCP Family Medicine
DX: S91.202A Unspecified open wound of left great toe with damage to nail, initial encounter (principal); J44.9 Chronic obstructive pulmonary disease, unspecified; W22.09XA Striking against other stationary object, initial encounter
CPT/HCPCS: 99282; 99283

== ENCOUNTER 2022-10-03 15:15 | Emergency (ER) | payer MEDICAID, SELFPAY ==
--- NOTE | 2022-10-03 15:15 | RT.EKG_ITS ---
APPROVED REPORT Exam: Resting ECG Reason for Exam: sob,dizziness Patient Location: E HR:82 bpm ECG Measurements Heart Rate 82 AXIS UT 130 P 50 QRSd 98 QRS -16 QT 366 T 36 QTc 427 Conclusion Sinus rhythm...normal P axis, V-rate 60- 99 sinus rhythm, normal axis, normal intervals, non ischemic
[2022-10-03 15:21] VITALS: BP 115/83; PULSE 90; RESP 14; TEMP 36.9; O2SAT 94
[2022-10-03 15:24] VITALS: RESP 14
--- NOTE | 2022-10-03 15:45 | DI.RAD_ITS ---
Exam(s) XR CHEST 2V PA LATERAL EXAM: XR CHEST 2V PA LATERAL CLINICAL HISTORY: shortness of breath TECHNIQUE: 2D digital imaging was performed. COMPARISON: CT CT CHEST W from 06/20/2022 CR XR CHEST 2V PA LATERAL from 08/09/2022 FINDINGS: HEART: Normal size. Aorta: Not dilated. PULMONARY VASCULATURE: Normal. LUNGS: Left upper lobe mass again noted,, with increase in size from prior. Increased densities agai n noted at the right heart border. Underlying fibrotic changes. No superimposed infiltrate or effus ion. PLEURAL SPACE: No pleural effusion or pneumothorax. BONE:Unremarkable for age. IMPRESSION: Mild interval increase in size of left upper lobe mass. A right lower lobe mass also seen. No super imposed infiltrate. DATA REPOSITORY: RADIATION DOSE DELIVERED:
[2022-10-03] MEDS: Normal Saline 1,000 ML 1000 ML IV (16:00)
[2022-10-03] MEDS: Albuterol/Ipratropium 3 ML UPD VIAL UPD (16:03)
[2022-10-03 16:08] LABS: Abs Immature Grans 0.03 10^3/uL (0.0-0.06); Absolute Basophil Count 0.06 10^3/uL (0.0-0.2); Absolute Eosinophil Count 0.38 10^3/uL (0.0-0.7); Absolute Lymphocyte Count 1.32 10^3/uL (1.2-3.4); Absolute Monocyte Count 0.73 10^3/uL (0.1-0.8); Absolute Neutrophil Count 7.37 10^3/uL (1.2-6.7); Basophils % 0.6; Eosinophils % 3.8; HCT 41.7 % (40.0-50.0); HGB 13.9 g/dL (13.5-17.5); Immature Grans % 0.3; Lymphocytes % 13.3; MCH 25.8 pg (27.0-33.0); MCHC 33.3 % (32.0-36.0); MCV 77 fL (80-95); MPV 10.3 fL (8.0-11.0); Monocytes % 7.4; Neutrophils % 74.6; Platelet Count 250 10^3/uL (130-400); RBC 5.39 10^6/uL (4.36-5.78); RDW-SD 39.1 fL; WBC 9.89 10^3/uL (4.4-10.8)
[2022-10-03 16:27] LABS: ALT 20 U/L (16-63); AST 19 U/L (15-37); Albumin 3.3 g/dL (3.4-5.0); Alkaline Phosphatase 132 U/L (46-116); BUN 18 mg/dL (7-18); Bilirubin, Total 0.3 mg/dL (0.2-1.0); CREATININE 0.9 mg/dL (0.70-1.30); Calcium 9.1 mg/dL (8.5-10.1); Chloride 100 mmol/L (98-107); Estimated GFR 99.62 (mL/min/1.73m2); Glucose 113 mg/dL (74-106); Magnesium 1.8 mg/dL (1.8-2.4); Potassium 3.5 mmol/L (3.5-5.1); Sodium 134 mmol/L (136-145); Total Protein 7.8 g/dL (6.4-8.2); Troponin I < 50 ng/L (<or=60)
--- NOTE | 2022-10-03 16:44 | ED.GENADUL_ITS ---
Discharge Plan Disposition Patient Disposition: Home Condition: Stable Discharge Details Clinical Impression: Bilateral lung cancer Primary Care Provider: Chung Perry ED Provider: Wilton Melvin Home Meds and New Rx's Prescriptions: Continued hydroxyzine HCl 25 mg tablet 25 mg PO BID PRN olanzapine [Zyprexa] 10 mg Tablet 10 mg PO BID bupropion HCl 150 mg tablet extended release 24 hr 150 mg PO QAM sennosides [senna] 8.6 mg tablet 1 tab PO BID PRN trazodone 50 mg tablet 50 mg PO DAILY Discharge Instructions Instructions: Shortness of Breath (ED) Additional Instructions: You may use the inhaler as directed for any shortness of breath to see if this helps with your ongoing symptoms. Also you have been provided a limited supply of a different nausea medication. Use this again as directed and if this helps with your nausea more please mention this to your primary care doctor or your palliative care team. If you develop any new or significant worsening of symptoms feel free to return the emergency department for reassessment. Referrals: [facility] [Provider Group] Chung Perry [Primary Care Provider] - Medical Decision Making Patient presenting to the emergency department for chief complaint of shortness of breath especially with activity. He states this has been going on for a while but has noticed it progressing. He does state some intermittent nausea and malaise. Patient does have diagnosis of lung cancer and recently was told it was terminal and patient was unable to tolerate radiation therapy. Patient therefore was no longer a candidate for interventions and has been meeting with palliative care team. Patient denies any rapid change of symptoms but just states slow progression. Physical exam shows an overall well-appearing patient with no acute distress, normal vital signs, nonhypoxic, not tachycardic and not hypotensive. Exam is otherwise nondiagnostic with no worrisome findings. We will check patient's labs and repeat chest x-ray for evaluation of progression of disease. Pending results we will give patient albuterol. Patient also received 1 L of normal saline. Review of patient's labs show an overall unremarkable CBC with no significant signs of anemia. CMP does show slightly decreased sodium of 134, glucose of 113 alk phos of 132 and albumin of 3.3. Patient troponin negative. All the patient's laboratory findings are at patient's baseline with no significant changes. Reviewed chest x-ray and radiologist interpretation that does show marked changes since recent scan done 08/09. Reassessed patient and patient does state some improvement of symptoms after fluids and albuterol. Informed patient of x- ray findings that is showing some progression of disease. Will refer patient to palliative care for further discussion and planning for patient comfort and appropriate interventions as needed. I do understand after review of previous records that patient is pending hospice and if symptoms continue to progress this may need to be considered. After discussion of diagnosis and plan of care patient has no further needs, questions, or concerns and states clear understanding to return to the emergency department for any worsening symptoms. This documentation was generated using [employer] system, please disregard any oddities of phrase or misspellings. Medical Records Medical records reviewed: Yes I reviewed the patient's medical records. Medical records narrative: Reviewed recent palliative care note Imaging Data Radiologic Study: Attestation: I personally reviewed and interpreted this imaging study as follows: Imaging: X-Ray Radiologist's impression: Exam(s) Addendum created by Boone Espinal MD on 10/03/2022 6:21:22 PM EDT: THIS REPORT CONTAINS FINDINGS THAT MAY BE CRITICAL TO PATIENT CARE. The findings were verbally communicated via telephone conference with WILTON MELVIN at 6:20 PM EDT on 10/03/2022. The findings were acknowledged and understood. He states that the patient has end stage lung cancer and is on his way to hospice Initial report created on 10/03/2022 6:17:30 PM EDT: PROCEDURE INFORMATION: Exam: XR Chest Exam date and time: 10/03/2022 5:44 PM Age: 56 years old Clinical indication: Other: Shortness of breath TECHNIQUE: Imaging protocol: Radiologic exam of the chest. Views: 2 views. COMPARISON: CR XR CHEST 2V PA LATERAL 08/09/2022 12:37 PM FINDINGS: Lungs: Left upper lobe mass was present on CT August 05, 2022. It has become more dense since July. Pleural spaces: Unremarkable. No pleural effusion. No pneumothorax. Heart/Mediastinum: Unremarkable. No cardiomegaly. Bones/joints: Unremarkable. IMPRESSION: Left upper lobe mass was present on CT August 05, 2022. It has become more dense since July. This is presumed to be a malignancy as it is increasing in size Lab Data Lab results reviewed: Yes I reviewed the patient's lab results. HPI General Mode of arrival: ambulatory . Date/Time Provider Initiated Documentation: 10/03/22 15:32 . Limitations to Documentation: no limitations . Information obtained by: patient and RN notes reviewed . History of Present Illness 56 year old M presents to the emergency department with the chief complaint of Shortness of breath, nausea, described as moderate and similar to prior episodes, Patient started experiencing this week(s) and it has been intermittent. No relieving factors improve symptom(s), Movement worsens symptoms . Patient did receive the following treatments prior to arrival, none Related Data Home Medications Medication Instructions Recorded Confirmed bupropion HCl 150 mg 24 hr tablet, 150 mg PO QAM 01/26/22 10/03/22 extended release hydroxyzine HCl 25 mg tablet 25 mg PO BID PRN 01/26/22 10/03/22 olanzapine 10 mg tablet (Zyprexa) 10 mg PO BID 01/26/22 10/03/22 sennosides 8.6 mg tablet (senna) 1 tab PO BID PRN 01/26/22 10/03/22 trazodone 50 mg tablet 50 mg PO DAILY 01/26/22 10/03/22 Allergies Allergy/AdvReac Type Severity Reaction Status Date / Time Sulfa (Sulfonamide Allergy Severe Swelling/Ed Unverified 10/03/22 15:24 Antibiotics) jostin General Stated Complaint: SOB ABA: 3 Review of Systems Constitutional Constitutional: Reports chills, Denies fever(s) and Reports malaise Cardiovascular Cardiovascular: Denies chest pain, Denies leg edema and Reports dyspnea Respiratory Respiratory: Reports cough and Reports dyspnea Gastrointestinal Gastrointestinal: Denies abdominal pain Integumentary/Breasts Skin/Breast: Denies rash PFSH All Active Problems (Updated 10/03/22 @ 18:59 by Wilton Melvin NP) Nail avulsion of toe (Acute) Palliative care patient (Acute) Bilateral lung cancer (Acute) COVID (Acute) Suicidal ideation (Acute) Depression (Chronic) Deliberate self-cutting (Acute) Other social stressor (Acute) Agitation (Acute) Hemoptysis (Acute) Thumb injury (Acute) Abnormal chest CT (Acute) GERD (gastroesophageal reflux disease) (Chronic) Hypercholesterolemia (Chronic) Suicidal thoughts (Acute) Leukocytosis (Chronic) Tobacco abuse (Chronic) Suicidal ideation (Acute) Anxiety (Chronic) Depression (Chronic) COPD (chronic obstructive pulmonary disease) (Chronic) Depression (Chronic) Bipolar disorder (Chronic) Depression with suicidal ideation (Acute) Medical History Bipolar disorder Depressed Shingles Stress Suicidal ideations Suicidal thoughts Traumatic pneumothorax 2017, chest tube x2 Surgical History History of ankle surgery S/P thoracostomy tube placement Social History Smoking/Tobacco Use Status: Current every day Tobacco Type: cigarettes Smoking risk assessment performed?: Yes Alcohol Intake: never Drug use: Daily Substance use type: marijuana Current gender identity: male Do you feel safe at home: No (does not feel safe with self) Do you feel safe in your relationship?: Yes Additional Social history: Lives in a private apartment. Has [facility] case management Exam Const General: cooperative, comfortable, no acute distress, not diaphoretic and not ill appearing Nutritional Appearance: average body habitus Orientation: alert, awake and oriented x3 Limitations: mental status not altered Neck Neck: normal visual inspection, full ROM, trachea midline, supple and no anterior neck swelling Chest Chest: normal inspection of the chest Resp Effort & Inspection: normal respiratory effort and able to speak in complete sentences Auscultation: clear to auscultation bilaterally Cardio Jugular venous pressure: no JVD Palpation: normal PMI Rate: regular rate Rhythm: regular rhythm Heart Sounds: S1 normal, S2 normal, no click, no gallops, no murmurs and no rubs Bruits: no abdominal aortic bruits and no carotid bruits Pulses: radial pulses present bilaterally 2+ Skin General skin exam: no rashes or lesions noted Neuro General: patient alert, patient awake, patient oriented x3, tone normal and moves all extremities Course Vital Signs Vital signs: Vital Signs Temperature 36.9 C 10/03/22 15:21 Pulse 90 10/03/22 15:21 Respiratory Rate 14 10/03/22 15:21 Blood Pressure 115/83 10/03/22 15:21 Pulse Oximetry 94 10/03/22 15:21 Temperature 36.9 C 10/03/22 15:21 Temperature Source Temporal Artery Scan 10/03/22 15:21 Pulse 90 10/03/22 15:21 Respiratory Rate 14 05/16/23 15:24 Respiratory Effort Non-Labored, Short of Breath 10/03/22 15:24 Respiratory Depth Normal 10/03/22 15:24 Respiratory Pattern Normal 10/03/22 15:24 Blood Pressure 115/83 10/03/22 15:21 Blood Pressure Position Supine 10/03/22 15:21 Pulse Oximetry 94 10/03/22 15:21 Oxygen Delivery Method Room Air 10/03/22 15:21 Oxygen Flow Rate 0 10/03/22 15:21 Pain Level 0 10/03/22 15:21 Lab/Test Results Lab/Test Results: Laboratory Tests Range/Units 10/03/22 10/03/22 15:57 15:57 WBC (4.4-10.8) 10^3/uL 9.89 RBC (4.36-5.78) 10^6/uL 5.39 Hgb (13.5-17.5) g/dL 13.9 Hct (40.0-50.0) % 41.7 MCV (80-95) fL 77 L MCH (27.0-33.0) pg 25.8 L MCHC (32.0-36.0) % 33.3 RDW (11.8-14.1) % 14.0 Plt Count (130-400) 10^3/uL 250 MPV (8.0-11.0) fL 10.3 Immature Gran % 0.3 Neutrophils % 74.6 Lymphocytes % 13.3 Monocytes % 7.4 Eosinophils % 3.8 Basophils % 0.6 Nucleated RBC % (0.0-0.3) % 0.0 Absolute Neutrophils (1.2-6.7) 10^3/uL 7.37 H Absolute Lymphocytes (1.2-3.4) 10^3/uL 1.32 Absolute Monocytes (0.1-0.8) 10^3/uL 0.73 Absolute Eosinophils (0.0-0.7) 10^3/uL 0.38 Absolute Basophils (0.0-0.2) 10^3/uL 0.06 Sodium (136-145) mmol/L 134 L Potassium (3.5-5.1) mmol/L 3.5 Chloride (98-107) mmol/L 100 Carbon Dioxide (21.0-32.0) mmol/L 27.0 Anion Gap (3-11) mmol/L 7.0 BUN (7-18) mg/dL 18 Creatinine (0.70-1.30) mg/dL 0.9 Est GFR (CKD-EPI 2020) (mL/min/1.73m2) 99.62 Glucose (74-106) mg/dL 113 H Calcium (8.5-10.1) mg/dL 9.1 Magnesium (1.8-2.4) mg/dL 1.8 Total Bilirubin (0.2-1.0) mg/dL 0.3 AST (15-37) U/L 19 ALT (16-63) U/L 20 Alkaline Phosphatase (46-116) U/L 132 H Troponin I (<or=60) ng/L < 50 Total Protein (6.4-8.2) g/dL 7.8 Albumin (3.4-5.0) g/dL 3.3 L
--- NOTE | 2022-10-03 18:17 | NUR.NOTE ---
pt provided with milk and sandwich
--- NOTE | 2022-10-03 18:18 | DI.VRAD_ITS ---
Addendum created by Boone Espinal MD on 10/03/2022 6:21:22 PM EDT: THIS REPORT CONTAINS FINDINGS THAT MAY BE CRITICAL TO PATIENT CARE. The findings were verbally communicated via telephone conference with EJ MELVIN at 6:20 PM EDT on 10/03/2022. The findings were acknowledged and understood. He states that the patient has end stage lung cancer and is on his way to hospice Initial report created on 10/03/2022 6:17:30 PM EDT: PROCEDURE INFORMATION: Exam: XR Chest Exam date and time: 10/03/2022 5:44 PM Age: 56 years old Clinical indication: Other: Shortness of breath TECHNIQUE: Imaging protocol: Radiologic exam of the chest. Views: 2 views. COMPARISON: CR XR CHEST 2V PA LATERAL 08/09/2022 12:37 PM FINDINGS: Lungs: Left upper lobe mass was present on CT August 05, 2022. It has become more dense since July. Pleural spaces: Unremarkable. No pleural effusion. No pneumothorax. Heart/Mediastinum: Unremarkable. No cardiomegaly. Bones/joints: Unremarkable. IMPRESSION: Left upper lobe mass was present on CT August 05, 2022. It has become more dense since July. This is presumed to be a malignancy as it is increasing in size Dictated and Authenticated by: Boone Espinal MD. Ordering:MARTHA Núñez MD
[2022-10-03] MEDS: Albuterol HFA 8 GM 60 PUFF INH IH (19:08)
[2022-10-03 19:09] VITALS: BP 128/75; PULSE 78; RESP 18; O2SAT 97
--- NOTE | 2022-10-03 19:44 | NUR.NOTE ---
Referral to Care Management to help expedite appt. with Paliative Care appt. for worsening shortness of breath, progressive lung ca.Nursing Note:
== END 2022-10-03 19:11 | disposition home or self-care (01) ==
PROVIDERS: Emergency Provider Nurse Practitioner Family; PCP Family Medicine
DX: C34.91 Malignant neoplasm of unspecified part of right bronchus or lung (principal); R06.02 Shortness of breath; R11.0 Nausea
CPT/HCPCS: 36415; 80053; 93005; 96360; 99284; 71046; 83735; 84484; 85025; 93010; J7620

== ENCOUNTER 2022-10-06 12:43 | Emergency (ER) | payer MEDICAID, SELFPAY ==
[2022-10-06 12:53] VITALS: BP 106/60; PULSE 83; RESP 20; TEMP 36.6; O2SAT 95
--- NOTE | 2022-10-06 13:15 | DI.CT_ITS ---
Exam(s) CT CHEST PE CTA EXAM: CT CHEST PE CTA CLINICAL HISTORY: Shortness of breath, lightheadedness, pleurisy. TECHNIQUE: Imaging Protocol: Axial CT angiography was performed with multi-slice acquisition and mu lti-planar and/or 3D reconstructions. CONTRAST MATERIAL: Intravenous: Omnipaque 350 contrast volume:69 mL COMPARISON: CT CT CHEST PE CTA from 08/05/2022 CR,XR XR CHEST 2V PA LATERAL from 10/03/2022 FINDINGS: Tracheobronchial tree: Patent where visualized. Pulmonary parenchyma: Moderately severe centrilobular emphysematous changes are present. There is ag ain seen a mass in the left upper lobe which is unchanged. There is also a peripheral mass in the ri ght lower lobe which appears stable. No new infiltrates are seen. Pulmonary Arteries: No evidence of filling defect to suggest pulmonary emboli. Mediastinum and Kimberly: No dominant adenopathy or fluid collection. The esophagus is unremarkable. Visualized thyroid gland: Unremarkable. Pleura: No effusion or pneumothorax. Heart: The heart is not dilated. No coronary artery calcifications are seen. No pericardial effusion. Aorta: Thoracic aorta non-dilated. No evidence of dissection. Upper abdomen: Unremarkable. Soft tissues: Unremarkable. Bones: Within normal limits for the patient's age.There is a nonunited left rib fracture. IMPRESSION: 1. No evidence of pulmonary embolism, thoracic aortic dissection or aneurysm. 2. Stable left upper and right lower lobe masses. 3. Findings were discussed with the emergency department at 3:05 p.m. on 10/06/2022. RADIATION DOSE DELIVERED: 330.63mGy.cm Total DLP DATA REPOSITORY: All CT scans at this facility are submitted to the National Radiology Data Registry (NRDR) Dose Index Registry (DIR) with the [employer] ([employer]). RADIATION OPTIMIZATION: All CT scans at this facility use at least one of these dose optimization te chniques: automated exposure control; mA and/or kV adjustment per patient size (includes targeted exa ms where dose is matched to clinical indication); or iterative reconstruction.
[2022-10-06 13:44] LABS: Abs Immature Grans 0.04 10^3/uL (0.0-0.06); Absolute Basophil Count 0.07 10^3/uL (0.0-0.2); Absolute Eosinophil Count 0.29 10^3/uL (0.0-0.7); Absolute Lymphocyte Count 1.23 10^3/uL (1.2-3.4); Absolute Neutrophil Count 8.98 10^3/uL (1.2-6.7); Basophils % 0.6; Eosinophils % 2.6; HGB 15.1 g/dL (13.5-17.5); Immature Grans % 0.4; Lymphocytes % 10.9; MCH 25.7 pg (27.0-33.0); MCHC 32.8 % (32.0-36.0); MCV 78 fL (80-95); MPV 10.4 fL (8.0-11.0); Monocytes % 6.2; Neutrophils % 79.3; Platelet Count 276 10^3/uL (130-400); RBC 5.88 10^6/uL (4.36-5.78); WBC 11.33 10^3/uL (4.4-10.8)
[2022-10-06] MEDS: Ondansetron O.D.T. 4 MG TABEF PO (13:50)
[2022-10-06] MEDS: oxyCODONE 5 MG TAB PO (13:51)
--- NOTE | 2022-10-06 13:54 | NUR.NOTE ---
Nursing Note: Dr Justin Bosch at pt's bedside, plan of care reviewed, discussed with pt, pt in agreement with plan. Pt A/O X4, respirations non-labored, SATs 92 % RA, pt reports continues to smoke though decreasing amount ~one pack cigarettes lasts 4-5 days, pt reports smokes cannabis ~ 2 bowls per day for relaxation and pain control. Pt engaged in conversation, speaking in full sentences. Pt awaiting CT and dispition
[2022-10-06 13:58] LABS: ALT 16 U/L (16-63); AST 20 U/L (15-37); Albumin 3.5 g/dL (3.4-5.0); Alkaline Phosphatase 150 U/L (46-116); Anion Gap 7.2 mmol/L (3-11); BUN 17 mg/dL (7-18); Bilirubin, Total 0.4 mg/dL (0.2-1.0); CO2 31.8 mmol/L (21.0-32.0); Calcium 9.6 mg/dL (8.5-10.1); Chloride 98 mmol/L (98-107); Estimated GFR 87.78 (mL/min/1.73m2); Glucose 107 mg/dL (74-106); Magnesium 1.9 mg/dL (1.8-2.4); Sodium 137 mmol/L (136-145); Total Protein 8.3 g/dL (6.4-8.2)
[2022-10-06] MEDS: Normal Saline - Diluent 50 ML VIAL IJ (14:34)
--- NOTE | 2022-10-06 15:23 | ED.GENADUL_ITS ---
Discharge Plan Disposition Patient Disposition: Home Condition: Stable Discharge Details Clinical Impression: Bilateral lung cancer, Palliative care patient, Pleuriingrid Primary Care Provider: Chung Perry ED Provider: Wilton Bosch Home Meds and New Rx's Prescriptions: Continued hydroxyzine HCl 25 mg tablet 25 mg PO BID PRN olanzapine [Zyprexa] 10 mg Tablet 10 mg PO BID bupropion HCl 150 mg tablet extended release 24 hr 150 mg PO QAM sennosides [senna] 8.6 mg tablet 1 tab PO BID PRN trazodone 50 mg tablet 50 mg PO DAILY Discharge Instructions Instructions: Pleurisy (ED) Additional Instructions: You may continue to use the inhaler that you were given during the last visit and use [id number] pain medication as needed for discomfort. If your pain is severe please use the provided narcotic but only take as directed on packaging. You may also use the provided nausea medication. Please keep your appointment with your primary care provider on Sunday and palliative care on Sunday for further discussion of long-term care plan and goals given your terminal cancer. Referrals: Chung Perry [Primary Care Provider] - (Keep your appointment as scheduled for Sunday) Medical Decision Making Patient presenting to the emergency department for chief complaint of shortness of breath and pain with inspiration. Patient has terminal lung cancer and I saw and evaluated the patient 2 days ago which she states minimal change but just continued symptoms. Patient had labs and x-ray performed at that time and did show worsening progression of his lung cancer but otherwise work-up was benign. Exam today is unremarkable and shows no significant changes but given patient's cancer and shortness of breath which is worsening will perform CTA imaging to ensure that patient does not have pulmonary embolism. I have low suspicion of this and feel this patient is more than likely experiencing his progressive symptoms of his terminal disease. Pending results will give patient Zofran and oxycodone to see if this helps with his symptoms. Reviewed patient's labs and patient does have slight elevation of WBCs, otherwise CBC is nondiagnostic, CMP shows slightly elevated glucose alk phos and total protein but again all these are similar to labs that patient has had in the past. All other results are within normal range. CT imaging shows stable left upper and right lower masses and no pulmonary embolism dissection or aneurysm noted. Patient reassessed and did state some improvement of discomfort after oxycodone. Discussed with patient risk versus benefit of narcotic medication but given his terminal illness I do feel that this would be beneficial to have on hand for patient to utilize. Patient did sign narcotic form and understands use of this medication. Patient otherwise given Zofran to go home for his nausea otherwise patient is already scheduled to see primary care provider on Sunday and palliative care on Sunday. After discussion of diagnosis and plan of care patient has no further needs, questions, or concerns and states clear understanding to return to the emergency department for any worsening symptoms. This documentation was generated using [employer] system, please disregard any oddities of phrase or misspellings. Imaging Data Radiologic Study: Imaging: CT Scan Radiologist's impression: Exam(s) CT CHEST PE CTA EXAM: CT CHEST PE CTA CLINICAL HISTORY: Shortness of breath, lightheadedness, pleurisy. TECHNIQUE: Imaging Protocol: Axial CT angiography was performed with multi- slice acquisition and multi-planar and/or 3D reconstructions. CONTRAST MATERIAL: Intravenous: Omnipaque 350 contrast volume:69 mL COMPARISON: CT CT CHEST PE CTA from 08/05/2022 CR,XR XR CHEST 2V PA LATERAL from 10/03/2022 FINDINGS: Tracheobronchial tree: Patent where visualized. Pulmonary parenchyma: Moderately severe centrilobular emphysematous changes are present. There is again seen a mass in the left upper lobe which is unchanged. There is also a peripheral mass in the right lower lobe which appears stable. No new infiltrates are seen. Pulmonary Arteries: No evidence of filling defect to suggest pulmonary emboli. Mediastinum and Kimberly: No dominant adenopathy or fluid collection. The esophagus is unremarkable. Visualized thyroid gland: Unremarkable. Pleura: No effusion or pneumothorax. Heart: The heart is not dilated. No coronary artery calcifications are seen. No pericardial effusion. Aorta: Thoracic aorta non-dilated. No evidence of dissection. Upper abdomen: Unremarkable. Soft tissues: Unremarkable. Bones: Within normal limits for the patient's age.There is a nonunited left rib fracture. IMPRESSION: 1. No evidence of pulmonary embolism, thoracic aortic dissection or aneurysm. 2. Stable left upper and right lower lobe masses. 3. Findings were discussed with the emergency department at 3:05 p.m. on 10/06/2022. Lab Data Lab results reviewed: Yes I reviewed the patient's lab results. HPI General Mode of arrival: ambulatory . Date/Time Provider Initiated Documentation: 10/06/22 13:26 . Limitations to Documentation: no limitations . Information obtained by: patient and RN notes reviewed . History of Present Illness 56 year old M presents to the emergency department with the chief complaint of Shortness of breath pain with inspiration, described as moderate and similar to prior episodes, Quality is described as aching and sharp, and is localized to the chest. Patient started experiencing this week(s) and it has been constant. No relieving factors improve symptom(s), Patient did receive the following treatments prior to arrival, none Related Data Home Medications Medication Instructions Recorded Confirmed bupropion HCl 150 mg 24 hr tablet, 150 mg PO QAM 01/26/22 10/06/22 extended release hydroxyzine HCl 25 mg tablet 25 mg PO BID PRN 01/26/22 10/06/22 olanzapine 10 mg tablet (Zyprexa) 10 mg PO BID 01/26/22 10/06/22 sennosides 8.6 mg tablet (senna) 1 tab PO BID PRN 01/26/22 10/06/22 trazodone 50 mg tablet 50 mg PO DAILY 01/26/22 10/06/22 Allergies Allergy/AdvReac Type Severity Reaction Status Date / Time Sulfa (Sulfonamide Allergy Severe Swelling/Ed Unverified 10/06/22 14:11 Antibiotics) jostin General Stated Complaint: Recheck ABA: 3 Review of Systems Constitutional Constitutional: Denies chills, Denies fever(s), Reports lethargy and Reports malaise Cardiovascular Cardiovascular: Denies chest pain, Denies leg edema and Reports dyspnea Respiratory Respiratory: Reports cough, Reports pain on inspiration, Reports pain with cough and Reports dyspnea Gastrointestinal Gastrointestinal: Denies abdominal pain Integumentary/Breasts Skin/Breast: Denies rash PFSH All Active Problems Nail avulsion of toe (Acute) Pleurisy (Acute) Palliative care patient (Acute) Bilateral lung cancer (Acute) COVID (Acute) Suicidal ideation (Acute) Depression (Chronic) Deliberate self-cutting (Acute) Other social stressor (Acute) Agitation (Acute) Hemoptysis (Acute) Thumb injury (Acute) Abnormal chest CT (Acute) GERD (gastroesophageal reflux disease) (Chronic) Hypercholesterolemia (Chronic) Suicidal thoughts (Acute) Leukocytosis (Chronic) Tobacco abuse (Chronic) Suicidal ideation (Acute) Anxiety (Chronic) Depression (Chronic) COPD (chronic obstructive pulmonary disease) (Chronic) Depression (Chronic) Bipolar disorder (Chronic) Depression with suicidal ideation (Acute) Medical History Bipolar disorder Depressed Shingles Stress Suicidal ideations Suicidal thoughts Traumatic pneumothorax 2017, chest tube x2 Surgical History History of ankle surgery S/P thoracostomy tube placement Social History Smoking/Tobacco Use Status: Current every day Tobacco Type: cigarettes Smoking risk assessment performed?: Yes Alcohol Intake: never Drug use: Daily Substance use type: marijuana Details: Pt reports cannabis use for relaxation, pain management Current gender identity: male Do you feel safe at home: No (does not feel safe with self) Do you feel safe in your relationship?: Yes Additional Social history: Lives in a private apartment. Has [facility] case management Exam Const General: cooperative, comfortable, no acute distress, not diaphoretic and not ill appearing Nutritional Appearance: average body habitus Orientation: alert, awake and oriented x3 Limitations: mental status not altered Neck Neck: normal visual inspection, full ROM, trachea midline, supple and no anterior neck swelling Chest Chest: normal inspection of the chest Resp Effort & Inspection: normal respiratory effort and able to speak in complete sentences Auscultation: clear to auscultation bilaterally Cardio Jugular venous pressure: no JVD Palpation: normal PMI Rate: regular rate Rhythm: regular rhythm Heart Sounds: S1 normal, S2 normal, no click, no gallops, no murmurs and no rubs Bruits: no abdominal aortic bruits and no carotid bruits Pulses: radial pulses present bilaterally 2+ Skin General skin exam: no rashes or lesions noted Neuro General: patient alert, patient awake, patient oriented x3, tone normal and moves all extremities Course Vital Signs Vital signs: Vital Signs Temperature 36.6 C 10/06/22 12:53 Pulse 83 10/06/22 12:53 Respiratory Rate 20 10/06/22 12:53 Blood Pressure 106/60 10/06/22 12:53 Pulse Oximetry 95 10/06/22 12:53 Temperature 36.6 C 10/06/22 12:53 Temperature Source Oral 10/06/22 12:53 Pulse 83 10/06/22 12:53 Respiratory Rate 20 10/06/22 12:53 Respiratory Effort Normal 10/06/22 14:00 Blood Pressure 106/60 10/06/22 12:53 Blood Pressure Position Sitting 10/06/22 12:53 Pulse Oximetry 95 10/06/22 12:53 Oxygen Delivery Method Room Air 10/06/22 12:53 Oxygen Flow Rate 0 10/06/22 12:53 Pain Level 6 10/06/22 13:51 Lab/Test Results Lab/Test Results: Laboratory Tests Range/Units 10/06/22 10/06/22 13:39 13:39 WBC (4.4-10.8) 10^3/uL 11.33 H RBC (4.36-5.78) 10^6/uL 5.88 H Hgb (13.5-17.5) g/dL 15.1 Hct (40.0-50.0) % 46.0 MCV (80-95) fL 78 L MCH (27.0-33.0) pg 25.7 L MCHC (32.0-36.0) % 32.8 RDW (11.8-14.1) % 14.0 Plt Count (130-400) 10^3/uL 276 MPV (8.0-11.0) fL 10.4 Immature Gran % 0.4 Neutrophils % 79.3 Lymphocytes % 10.9 Monocytes % 6.2 Eosinophils % 2.6 Basophils % 0.6 Nucleated RBC % (0.0-0.3) % 0.0 Absolute Neutrophils (1.2-6.7) 10^3/uL 8.98 H Absolute Lymphocytes (1.2-3.4) 10^3/uL 1.23 Absolute Monocytes (0.1-0.8) 10^3/uL 0.70 Absolute Eosinophils (0.0-0.7) 10^3/uL 0.29 Absolute Basophils (0.0-0.2) 10^3/uL 0.07 Sodium (136-145) mmol/L 137 Potassium (3.5-5.1) mmol/L 4.0 Chloride (98-107) mmol/L 98 Carbon Dioxide (21.0-32.0) mmol/L 31.8 Anion Gap (3-11) mmol/L 7.2 BUN (7-18) mg/dL 17 Creatinine (0.70-1.30) mg/dL 1.0 Est GFR (CKD-EPI 2020) (mL/min/1.73m2) 87.78 Glucose (74-106) mg/dL 107 H Calcium (8.5-10.1) mg/dL 9.6 Magnesium (1.8-2.4) mg/dL 1.9 Total Bilirubin (0.2-1.0) mg/dL 0.4 AST (15-37) U/L 20 ALT (16-63) U/L 16 Alkaline Phosphatase (46-116) U/L 150 H Total Protein (6.4-8.2) g/dL 8.3 H Albumin (3.4-5.0) g/dL 3.5
[2022-10-06 15:40] VITALS: BP 107/80; PULSE 84; RESP 16; TEMP 36.4; O2SAT 93
[2022-10-06] MEDS: Ondansetron O.D.T. 4 MG TABEF, 3 TABS/BTL PO (15:52)
== END 2022-10-06 16:25 | disposition home or self-care (01) ==
PROVIDERS: Emergency Provider Nurse Practitioner Family; PCP Family Medicine
DX: C34.91 Malignant neoplasm of unspecified part of right bronchus or lung (principal); C34.92 Malignant neoplasm of unspecified part of left bronchus or lung; R09.1 Pleurisy
CPT/HCPCS: 36415; 71275; 80053; 99285; 83735; 85025; 99284

== ENCOUNTER 2022-10-19 20:22 | Emergency (ER) | payer MEDICAID, SELFPAY ==
[2022-10-19 20:27] VITALS: BP 112/81; PULSE 91; RESP 16; TEMP 36.6; O2SAT 99
--- NOTE | 2022-10-19 20:37 | W.ED.GENAD ---
Discharge Plan Disposition Patient Disposition: Home Condition: Stable Discharge Details Clinical Impression: Depression Primary Care Provider: Chung Perry ED Provider: Asim Fierro Home Meds and New Rx's Prescriptions: Continued oxycodone 5 mg tablet 5 mg PO BID PRN hydroxyzine HCl 25 mg tablet 25 mg PO BID PRN olanzapine [Zyprexa] 10 mg Tablet 10 mg PO BID bupropion HCl 150 mg tablet extended release 24 hr 150 mg PO QAM sennosides [senna] 8.6 mg tablet 1 tab PO BID PRN trazodone 50 mg tablet 50 mg PO DAILY Discharge Instructions Instructions: Depression (ED) Additional Instructions: follow up with mental health and your primary care provider if you feel more ill, have worsening thoughts of self harm return to the emergency department Medical Decision Making 56 yo male with long history of depression/bipolar, who has lung cancer but not choosing to have treatment and is seeing palliative care, who comes in with increased depression and stating he has had thoughts of self harm but no specific plan. Denies drug use and denies alcohol use, no fevers, no chills, no chest pain or dyspnea. He is able to ambulate from the ambulance to his ED room unassisted with normal gait, caox4, clear speech. no findings on history or exam to suggest underlying medical process, [facility] seen by mental health, he agreed to safety plan and and will f/u with him tomorrow, feel this is reasonable, he has been calm and cooperative here and has no plan. Return precautions given Differential Diagnosis Differential Diagnosis: depression, si, bipolar HPI General Mode of arrival: ambulatory. Date/Time Provider Initiated Documentation: 10/19/22 20:25. Limitations to Documentation: no limitations. Information obtained by: patient. History of Present Illness 56 year old M presents to the emergency department with the chief complaint of depressed, described as moderate, Patient started experiencing this week(s) (2) and it has been constant. No relieving factors improve symptom(s), No exacerbating factors reported . Patient notes no other symptoms.; denies chest pain, fever/chills and shortness of breath. Patient did receive the following treatments prior to arrival, none Related Data Home Medications Medication Instructions Recorded Confirmed bupropion HCl 150 mg 24 hr tablet, 150 mg PO QAM 01/26/22 10/10/22 extended release hydroxyzine HCl 25 mg tablet 25 mg PO BID PRN 01/26/22 10/10/22 olanzapine 10 mg tablet (Zyprexa) 10 mg PO BID 01/26/22 10/10/22 sennosides 8.6 mg tablet (senna) 1 tab PO BID PRN 01/26/22 10/10/22 trazodone 50 mg tablet 50 mg PO DAILY 01/26/22 10/10/22 oxycodone 5 mg tablet 5 mg PO BID PRN 10/10/22 10/10/22 Allergies Allergy/AdvReac Type Severity Reaction Status Date / Time Sulfa (Sulfonamide Allergy Severe Swelling/Ed Unverified 10/10/22 10:31 Antibiotics) jostin General Stated Complaint: PsychEval ABA: 2 Review of Systems All systems reviewed & are unremarkable except as noted in HPI and below Constitutional Constitutional: Denies chills, Denies fever(s) and Denies weakness Cardiovascular Cardiovascular: Denies chest pain and Denies dyspnea Respiratory Respiratory: Denies cough and Denies dyspnea Gastrointestinal Gastrointestinal: Denies abdominal pain, Denies nausea and Denies vomiting Musculoskeletal Musculoskeletal: Denies joint swelling Integumentary/Breasts Skin/Breast: Denies rash Neurologic Neurologic: Denies weakness PFSH All Active Problems (Updated 10/19/22 @ 21:43 by Asim Fierro MD) Cancer related pain (Acute) Advanced care planning/counseling discussion (Acute) Nail avulsion of toe (Acute) Pleurisy (Acute) Palliative care patient (Acute) Bilateral lung cancer (Acute) Adenocarcinoma from 2020 biopsy COVID (Acute) Suicidal ideation (Acute) Depression (Chronic) Deliberate self-cutting (Acute) Other social stressor (Acute) Agitation (Acute) Hemoptysis (Acute) Thumb injury (Acute) Abnormal chest CT (Acute) GERD (gastroesophageal reflux disease) (Chronic) Hypercholesterolemia (Chronic) Suicidal thoughts (Acute) Leukocytosis (Chronic) Tobacco abuse (Chronic) Suicidal ideation (Acute) Anxiety (Chronic) Depression (Chronic) COPD (chronic obstructive pulmonary disease) (Chronic) Depression (Chronic) Bipolar disorder (Chronic) Depression with suicidal ideation (Acute) Medical History Bipolar disorder Depressed Shingles Stress Suicidal ideations Suicidal thoughts Traumatic pneumothorax 2017, chest tube x2 Surgical History History of ankle surgery S/P thoracostomy tube placement Social History Smoking/Tobacco Use Status: Current every day Tobacco Type: cigarettes Smoking risk assessment performed?: Yes Alcohol Intake: never Drug use: Daily Substance use type: marijuana Details: Pt reports cannabis use for relaxation, pain management Current gender identity: male Do you feel safe at home: No (does not feel safe with self) Do you feel safe in your relationship?: Yes Additional Social history: Lives in a private apartment. Has [facility] case management Exam Const General: no acute distress Orientation: alert HENMT Head: normal to inspection Ears: external ears normal General nose exam: external nose normal Mouth: moist mucous membranes Eyes General: appearance normal, both eyes and all related structures Neck Neck: normal visual inspection Resp Effort & Inspection: normal respiratory effort and able to speak in complete sentences Cardio Rate: regular rate Skin General skin exam: no rashes or lesions noted Neuro General: patient alert and patient oriented x3 Extrem General: normal to inspection Psych Speech and Movement: speech and movement normal Course Vital Signs Vital signs: Vital Signs Temperature 36.6 C 10/19/22 20:27 Pulse 91 H 10/19/22 20:27 Respiratory Rate 16 10/19/22 20:27 Blood Pressure 112/81 10/19/22 20:27 Pulse Oximetry 99 10/19/22 20:27 Temperature 36.6 C 10/19/22 20:27 Temperature Source Oral 10/19/22 20:27 Pulse 91 H 10/19/22 20:27 Respiratory Rate 16 10/19/22 20:27 Respiratory Effort Normal 10/19/22 20:32 Blood Pressure 112/81 10/19/22 20:27 Blood Pressure Position Sitting 10/19/22 20:27 Pulse Oximetry 99 10/19/22 20:27 Oxygen Delivery Method Room Air 10/19/22 20:27 Oxygen Flow Rate 0 10/19/22 20:27
== END 2022-10-19 21:49 | disposition home or self-care (01) ==
PROVIDERS: Emergency Provider Emergency Medicine; PCP Family Medicine
DX: F32.A Depression, unspecified (principal); R45.851 Suicidal ideations; C34.91 Malignant neoplasm of unspecified part of right bronchus or lung
CPT/HCPCS: 99285

== ENCOUNTER 2022-11-23 17:53 | Emergency (ER) | payer MEDICAID, SELFPAY ==
[2022-11-23] VITALS (21 sets, daily range): BP systolic 100–126; BP diastolic 60–89; PULSE 74–105; RESP 15–30; O2SAT 90–98
--- NOTE | 2022-11-23 17:45 | RT.EKG_ITS ---
APPROVED REPORT Exam: Resting ECG Reason for Exam: chest pain Patient Location: E HR:99 bpm ECG Measurements Heart Rate 99 AXIS MS 133 P 27 QRSd 92 QRS -49 QT 352 T 32 QTc 451 Conclusion Sinus rhythm...normal P axis, V-rate 60- 99 LAD, consider left anterior fascicular block...axis(240,-40), S>R II III aVF sinus tachycardia, left axis, non ischemic
--- NOTE | 2022-11-23 17:45 | DI.RAD_ITS ---
Exam(s) XR CHEST 2V PA LATERAL EXAM: XR CHEST 2V PA LATERAL CLINICAL HISTORY: Chest Pain TECHNIQUE: 2D digital imaging was performed. COMPARISON: CR XR CHEST 2V PA LATERAL from 08/09/2022 CR,XR XR CHEST 2V PA LATERAL from 10/03/[address] CHEST PE CTA from 10/06/2022 FINDINGS: HEART: Normal size. Aorta: Not dilated. PULMONARY VASCULATURE: Normal. LUNGS: Interval increase in size and density of previously noted mass in the left upper lobe. There appears to be increased volume loss. Streaky densities are also noted at the medial right lung base. Underlying emphysematous and fibrotic changes are present. PLEURAL SPACE: No pleural effusion or pneumothorax. BONE:Unremarkable for age. IMPRESSION: Interval increase in size of left upper lobe mass. DATA REPOSITORY: RADIATION DOSE DELIVERED:
[2022-11-23 18:16] LABS: Abs Immature Grans 0.05 10^3/uL (0.0-0.06); Absolute Basophil Count 0.05 10^3/uL (0.0-0.2); Absolute Lymphocyte Count 1.45 10^3/uL (1.2-3.4); Absolute Monocyte Count 0.85 10^3/uL (0.1-0.8); Basophils % 0.4; Eosinophils % 2.5; HCT 42.5 % (40.0-50.0); HGB 13.7 g/dL (13.5-17.5); Immature Grans % 0.4; Lymphocytes % 12.3; MCH 24.6 pg (27.0-33.0); MCHC 32.2 % (32.0-36.0); MCV 76 fL (80-95); MPV 9.9 fL (8.0-11.0); Monocytes % 7.2; Neutrophils % 77.2; Platelet Count 296 10^3/uL (130-400); RBC 5.57 10^6/uL (4.36-5.78); RDW 14.5 % (11.8-14.1); RDW-SD 39.6 fL; WBC 11.82 10^3/uL (4.4-10.8)
[2022-11-23 18:17] LABS: Absolute Neutrophil Count 9.13 10^3/uL (1.2-6.7)
[2022-11-23 18:38] LABS: ALT 15 U/L (16-63); AST 15 U/L (15-37); Albumin 3.2 g/dL (3.4-5.0); Alkaline Phosphatase 145 U/L (46-116); Anion Gap 11.1 mmol/L (3-11); BUN 29 mg/dL (7-18); Bilirubin, Total 0.3 mg/dL (0.2-1.0); CO2 24.9 mmol/L (21.0-32.0); CREATININE 0.8 mg/dL (0.70-1.30); Calcium 8.8 mg/dL (8.5-10.1); Chloride 103 mmol/L (98-107); Estimated GFR 103.22 (mL/min/1.73m2); Glucose 129 mg/dL (74-106); Magnesium 1.9 mg/dL (1.8-2.4); NT-proBNP 61 pg/mL (<300); Sodium 139 mmol/L (136-145); Troponin I < 50 ng/L (<or=60)
--- NOTE | 2022-11-23 18:49 | ED.GENADUL_ITS ---
Discharge Plan Disposition Patient Disposition: Home Condition: Stable Discharge Details Clinical Impression: Right middle lobe pulmonary infiltrate, Mass of left lung Primary Care Provider: Chung Perry ED Provider: Katheryn Kimball Home Meds and New Rx's Prescriptions: New doxycycline hyclate 100 mg tablet 100 mg PO BID 10 Days Qty: 20 0RF Rx Instructions: Take one tablet by mouth x 10 days Continued oxycodone 5 mg tablet 5 mg PO Q8H PRN PRN sennosides [senna] 8.6 mg tablet 8.6 mg PO DAILY Qty: 90 3RF hydroxyzine HCl 25 mg tablet 25 mg PO BID PRN olanzapine [Zyprexa] 10 mg Tablet 20 mg PO HS bupropion HCl 150 mg tablet extended release 24 hr 150 mg PO QAM trazodone 50 mg tablet 50 mg PO HS sertraline 100 mg tablet 150 mg PO DAILY levothyroxine 100 mcg tablet 100 mcg PO DAILY magnesium oxide 400 mg (241.3 mg magnesium) tablet 400 mg PO DAILY gabapentin 300 mg capsule 300 mg PO HS omeprazole 20 mg capsule,delayed release(DR/EC) 20 mg PO DAILY pravastatin 20 mg tablet 20 mg PO HS melatonin 10 mg capsule 10 mg PO HS Discharge Instructions Instructions: Community Acquired Pneumonia (ED) Additional Instructions: The x-ray shows that the lung mass in your left upper lobe is approximately 8 cm and is growing from previous. I do think that this is causing the pain. He also have a infiltrate in the right lower lobe which could be pneumonia. Please take the antibiotic as directed with yogurt or probiotic. Continue to take the pain medication as previously prescribed. Use the albuterol inhaler 1 or 2 puffs every 4-6 hours as needed for shortness of breath and wheezing. Please follow-up with palliative care. Follow up with primary care provider in 3-5 days. Return to ED sooner if any worsening or concerns. Increase oral fluids. Please take Tylenol or Ibuprofen with food every 4-6 hours as needed for pain and swelling. Referrals: Chung Perry [Primary Care Provider] - 5 days Discharge Data Discharge Date/Time-TO BE ENTERED AT DEPARTURE: 11/23/22 20:55 Medical Decision Making 56-year-old male presents who is well-known to the department presents with chest pain which radiates into his back which is worsened over the last few days. He does have stage IV lung cancer he did trial radiation therapy and has decided to stop that due to side effects. He reports pain with deep breathing. He does see palliative care. Other past medical history includes GERD, he is a daily smoker, COPD depression anxiety. CBC shows white blood cell count of 11.82 neutrophils 9.13, CMP largely within normal limits anion gap 11.1 BUN 29 creatinine 1.8 glucose 129 alk phos 145 albumin 3.2, COVID flu RSV negative. Initial troponin less than 50. I do not feel that we need a serial troponin as this has been ongoing for approximately 6 months and worse the last few days. I do not suspect this is cardiac in origin. Chest x-ray shows an enlarging mass in the left upper lobe which is now approximately 8 cm and a mild right perihilar infiltrate. No pleural effusion no pneumothorax. We will treat empirically for pneumonia. I do suspect that this pain is from the enlarging mass. Patient given doxycycline here 2 tablets to go and a prescription. Orders written for the care bed. Patient discharged in hemodynamically stable condition. O2 sat 97% upon discharge. Heart rate is improved. This text was generated using Arta[employer] system, please disregard any oddities of phrase or misspellings. Medical Records Medical records reviewed: Yes I reviewed the patient's medical records. Imaging Data Radiologic Study: Imaging: X-Ray Radiologist's impression: COMPARISON: XR CHEST 2V PA LATERAL 10/03/2022 5:44 PM FINDINGS: Lungs: There has been interval increase of masslike opacity in the left upper lung now measuring approximally 8 cm in greatest diameter. Mild right perihilar infiltrate. Pleural spaces: Unremarkable. No pleural effusion. No pneumothorax. Heart/Mediastinum: Unremarkable. No cardiomegaly. Bones/joints: Unremarkable. IMPRESSION: Large masslike opacity in the left upper lung and mild right perihilar infiltrate. Appearance in the left upper lung is concerning malignancy. Follow-up CT chest indicated. Thank you for allowing us to participate in the care of your patient. Dictated and Authenticated by: Tanner Darling MD 11/23/2022 6:52 PM Eastern Time ([place] & [place]) Lab Data Lab results reviewed: Yes I reviewed the patient's lab results. Labs: Laboratory Tests Range/Units 11/23/22 11/23/22 11/23/22 17:58 17:58 18:08 WBC (4.4-10.8) 10^3/uL 11.82 H RBC (4.36-5.78) 10^6/uL 5.57 Hgb (13.5-17.5) g/dL 13.7 Hct (40.0-50.0) % 42.5 MCV (80-95) fL 76 L MCH (27.0-33.0) pg 24.6 L MCHC (32.0-36.0) % 32.2 RDW (11.8-14.1) % 14.5 H Plt Count (130-400) 10^3/uL 296 MPV (8.0-11.0) fL 9.9 Immature Gran % 0.4 Neutrophils % 77.2 Lymphocytes % 12.3 Monocytes % 7.2 Eosinophils % 2.5 Basophils % 0.4 Nucleated RBC % (0.0-0.3) % 0.0 Absolute Neutrophils (1.2-6.7) 10^3/uL 9.13 H Absolute Lymphocytes (1.2-3.4) 10^3/uL 1.45 Absolute Monocytes (0.1-0.8) 10^3/uL 0.85 H Absolute Eosinophils (0.0-0.7) 10^3/uL 0.30 Absolute Basophils (0.0-0.2) 10^3/uL 0.05 Sodium (136-145) mmol/L 139 Potassium (3.5-5.1) mmol/L 4.0 Chloride (98-107) mmol/L 103 Carbon Dioxide (21.0-32.0) mmol/L 24.9 Anion Gap (3-11) mmol/L 11.1 H BUN (7-18) mg/dL 29 H Creatinine (0.70-1.30) mg/dL 0.8 Est GFR (CKD-EPI 2020) (mL/min/1.73m2) 103.22 Glucose (74-106) mg/dL 129 H Calcium (8.5-10.1) mg/dL 8.8 Magnesium (1.8-2.4) mg/dL 1.9 Total Bilirubin (0.2-1.0) mg/dL 0.3 AST (15-37) U/L 15 ALT (16-63) U/L 15 L Alkaline Phosphatase (46-116) U/L 145 H Troponin I (<or=60) ng/L < 50 NT-Pro-B Natriuret Pep (<300) pg/mL 61 Total Protein (6.4-8.2) g/dL 8.0 Albumin (3.4-5.0) g/dL 3.2 L COVID-19 Source Nasopharynx SARS-CoV-2 (PCR) (Negative) Negative Influenza Type A (PCR) (Negative) Negative Influenza Type B (PCR) (Negative) Negative RSV (PCR) (Negative) Negative Range/Units 11/23/22 20:59 WBC (4.4-10.8) 10^3/uL RBC (4.36-5.78) 10^6/uL Hgb (13.5-17.5) g/dL Hct (40.0-50.0) % MCV (80-95) fL MCH (27.0-33.0) pg MCHC (32.0-36.0) % RDW (11.8-14.1) % Plt Count (130-400) 10^3/uL MPV (8.0-11.0) fL Immature Gran % Neutrophils % Lymphocytes % Monocytes % Eosinophils % Basophils % Nucleated RBC % (0.0-0.3) % Absolute Neutrophils (1.2-6.7) 10^3/uL Absolute Lymphocytes (1.2-3.4) 10^3/uL Absolute Monocytes (0.1-0.8) 10^3/uL Absolute Eosinophils (0.0-0.7) 10^3/uL Absolute Basophils (0.0-0.2) 10^3/uL Sodium (136-145) mmol/L Potassium (3.5-5.1) mmol/L Chloride (98-107) mmol/L Carbon Dioxide (21.0-32.0) mmol/L Anion Gap (3-11) mmol/L BUN (7-18) mg/dL Creatinine (0.70-1.30) mg/dL Est GFR (CKD-EPI 2020) (mL/min/1.73m2) Glucose (74-106) mg/dL Calcium (8.5-10.1) mg/dL Magnesium (1.8-2.4) mg/dL Total Bilirubin (0.2-1.0) mg/dL AST (15-37) U/L ALT (16-63) U/L Alkaline Phosphatase (46-116) U/L Troponin I (<or=60) ng/L Cancelled NT-Pro-B Natriuret Pep (<300) pg/mL Total Protein (6.4-8.2) g/dL Albumin (3.4-5.0) g/dL COVID-19 Source SARS-CoV-2 (PCR) (Negative) Influenza Type A (PCR) (Negative) Influenza Type B (PCR) (Negative) RSV (PCR) (Negative) HPI General Mode of arrival: ambulatory . Date/Time Provider Initiated Documentation: 11/23/22 17:58 . Limitations to Documentation: no limitations . Information obtained by: patient, RN notes reviewed and old records reviewed . HPI Narrative: 56-year-old male presents who is well-known to the department presents with chest pain which radiates into his back which is worsened over the last few days. He does have stage IV lung cancer he did trial radiation therapy and has decided to stop that due to side effects. He reports pain with deep breathing. He does see palliative care. Other past medical history includes GERD, he is a daily smoker, COPD depression anxiety. Related Data Home Medications Medication Instructions Recorded Confirmed bupropion HCl 150 mg 24 hr tablet, 150 mg PO QAM 01/26/22 11/23/22 extended release hydroxyzine HCl 25 mg tablet 25 mg PO BID PRN 01/26/22 11/23/22 olanzapine 10 mg tablet (Zyprexa) 20 mg PO HS 01/26/22 11/23/22 trazodone 50 mg tablet 50 mg PO HS 01/26/22 11/23/22 oxycodone 5 mg tablet 5 mg PO Q8H PRN PRN 10/10/22 11/23/22 sennosides 8.6 mg tablet (senna) 8.6 mg PO DAILY Opioid induced 11/07/22 11/23/22 constipation #90 tabs doxycycline hyclate 100 mg tablet 100 mg PO BID Pneumonia 10 days 11/23/22 #20 tabs gabapentin 300 mg capsule 300 mg PO HS 11/23/22 11/23/22 levothyroxine 100 mcg tablet 100 mcg PO DAILY 11/23/22 11/23/22 magnesium oxide 400 mg (241.3 mg 400 mg PO DAILY 11/23/22 11/23/22 magnesium) tablet melatonin 10 mg capsule 10 mg PO HS 11/23/22 11/23/22 omeprazole 20 mg capsule,delayed 20 mg PO DAILY 11/23/22 11/23/22 release pravastatin 20 mg tablet 20 mg PO HS 11/23/22 11/23/22 sertraline 100 mg tablet 150 mg PO DAILY 11/23/22 11/23/22 Previous Rx's Medication Instructions Recorded sennosides 8.6 mg tablet (senna) 8.6 mg PO DAILY Opioid induced 11/07/22 constipation #90 tabs doxycycline hyclate 100 mg tablet 100 mg PO BID Pneumonia 10 days 11/23/22 #20 tabs Allergies Allergy/AdvReac Type Severity Reaction Status Date / Time Sulfa (Sulfonamide Allergy Severe Swelling/Ed Unverified 11/23/22 17:54 Antibiotics) jostin General Stated Complaint: Chest Pain ABA: 2 Review of Systems All systems reviewed & are unremarkable except as noted in HPI and below Cardiovascular Cardiovascular: Reports chest pain and Reports dyspnea Respiratory Respiratory: Reports dyspnea PFSH All Active Problems (Updated 11/23/22 @ 20:12 by Katheryn Kimball NP) Right middle lobe pulmonary infiltrate (Acute) Mass of left lung (Acute) Cancer related pain (Acute) Advanced care planning/counseling discussion (Acute) Palliative care patient (Acute) Bilateral lung cancer (Acute) Adenocarcinoma from 2020 biopsy COVID (Acute) Suicidal ideation (Acute) Depression (Chronic) Deliberate self-cutting (Acute) Other social stressor (Acute) Agitation (Acute) Hemoptysis (Acute) Thumb injury (Acute) Abnormal chest CT (Acute) GERD (gastroesophageal reflux disease) (Chronic) Hypercholesterolemia (Chronic) Suicidal thoughts (Acute) Leukocytosis (Chronic) Tobacco abuse (Chronic) Suicidal ideation (Acute) Anxiety (Chronic) Depression (Chronic) COPD (chronic obstructive pulmonary disease) (Chronic) Depression (Chronic) Bipolar disorder (Chronic) Depression with suicidal ideation (Acute) Medical History Bipolar disorder Depressed Shingles Stress Suicidal ideations Suicidal thoughts Traumatic pneumothorax 2017, chest tube x2 Surgical History History of ankle surgery S/P thoracostomy tube placement Social History Smoking/Tobacco Use Status: Current every day Tobacco Type: cigarettes Smoking risk assessment performed?: Yes Alcohol Intake: never Drug use: Daily Substance use type: marijuana Details: Pt reports cannabis use for relaxation, pain management Housing: other Current gender identity: male Do you feel safe at home: No (does not feel safe with self) Do you feel safe in your relationship?: Yes Additional Social history: Lives in a private apartment. Has [facility] case management Exam Narrative Exam Narrative: Constitutional: Alert and oriented x3. Appears stated age. Normal body habitus. Head: Normocephalic, no trauma. Eyes: Pupils PERRL, Red reflex noted, EOM's intact. Eyelids symmetrical without lesions, discharge, or swelling. ENT: Bilateral TM's WNL, External ear normal to inspection, no mastoid TTP, swelling, or erythema, Nasal turbinates WNL, no nasal discharge. Normal dentition, Posterior pharynx WNL, no exudate. Chest: RRR, Normal S1, S2, distal pulses intact. Resp: Lungs clear to auscultation bilaterally, no wheezes, rales, or rhonchi. Abdomen: Soft, non-distended, Normoactive bowel sounds all 4 quads. Musculoskeletal: Normal gait, 5/5 strength to all four extremities. Skin: No suspicious rashes or lesions. Capillary refill less than 2 sec. Neurologic: Cranial nerves II-XII intact. Alert and oriented x 3. Motor: No deficits noted. Sensory: Intact bilaterally all 4 extremities. Reflexes: DTR's intact bilaterally.. Hematologic/Lymphatic: No ecchymosis, no lymphadenopathy. Course Vital Signs Vital signs: Vital Signs Pulse 105 H 11/23/22 17:50 Respiratory Rate 21 11/23/22 17:50 Blood Pressure 126/89 11/23/22 17:50 Pulse Oximetry 91 L 11/23/22 17:50 Pulse 74 11/23/22 18:43 Pulse 96 H 11/23/22 18:43 Respiratory Rate 17 11/23/22 18:43 Respiratory Effort Normal, Non-Labored 11/23/22 18:00 Respiratory Depth Normal 11/23/22 18:00 Respiratory Pattern Normal 11/23/22 18:00 Blood Pressure 112/74 11/23/22 18:43 Blood Pressure Mean 83 11/23/22 18:43 Blood Pressure Position Sitting 11/23/22 17:50 Pulse Oximetry 92 11/23/22 18:43 Oxygen Delivery Method Room Air 11/23/22 17:50 Oxygen Flow Rate 0 11/23/22 17:50 Pain Level 10 11/23/22 17:50 Lab/Test Results Lab/Test Results: Laboratory Tests Range/Units 11/23/22 11/23/22 17:58 17:58 WBC (4.4-10.8) 10^3/uL 11.82 H RBC (4.36-5.78) 10^6/uL 5.57 Hgb (13.5-17.5) g/dL 13.7 Hct (40.0-50.0) % 42.5 MCV (80-95) fL 76 L MCH (27.0-33.0) pg 24.6 L MCHC (32.0-36.0) % 32.2 RDW (11.8-14.1) % 14.5 H Plt Count (130-400) 10^3/uL 296 MPV (8.0-11.0) fL 9.9 Immature Gran % 0.4 Neutrophils % 77.2 Lymphocytes % 12.3 Monocytes % 7.2 Eosinophils % 2.5 Basophils % 0.4 Nucleated RBC % (0.0-0.3) % 0.0 Absolute Neutrophils (1.2-6.7) 10^3/uL 9.13 H Absolute Lymphocytes (1.2-3.4) 10^3/uL 1.45 Absolute Monocytes (0.1-0.8) 10^3/uL 0.85 H Absolute Eosinophils (0.0-0.7) 10^3/uL 0.30 Absolute Basophils (0.0-0.2) 10^3/uL 0.05 Sodium (136-145) mmol/L 139 Potassium (3.5-5.1) mmol/L 4.0 Chloride (98-107) mmol/L 103 Carbon Dioxide (21.0-32.0) mmol/L 24.9 Anion Gap (3-11) mmol/L 11.1 H BUN (7-18) mg/dL 29 H Creatinine (0.70-1.30) mg/dL 0.8 Est GFR (CKD-EPI 2020) (mL/min/1.73m2) 103.22 Glucose (74-106) mg/dL 129 H Calcium (8.5-10.1) mg/dL 8.8 Magnesium (1.8-2.4) mg/dL 1.9 Total Bilirubin (0.2-1.0) mg/dL 0.3 AST (15-37) U/L 15 ALT (16-63) U/L 15 L Alkaline Phosphatase (46-116) U/L 145 H Troponin I (<or=60) ng/L < 50 NT-Pro-B Natriuret Pep (<300) pg/mL 61 Total Protein (6.4-8.2) g/dL 8.0 Albumin (3.4-5.0) g/dL 3.2 L
--- NOTE | 2022-11-23 18:52 | DI.VRAD_ITS ---
PROCEDURE INFORMATION: Exam: XR Chest Exam date and time: 11/23/2022 6:37 PM Age: 56 years old Clinical indication: Chest wall pain; Additional info: Chest pain TECHNIQUE: Imaging protocol: Radiologic exam of the chest. Views: 2 views. COMPARISON: XR CHEST 2V PA LATERAL 10/03/2022 5:44 PM FINDINGS: Lungs: There has been interval increase of masslike opacity in the left upper lung now measuring approximally 8 cm in greatest diameter. Mild right perihilar infiltrate. Pleural spaces: Unremarkable. No pleural effusion. No pneumothorax. Heart/Mediastinum: Unremarkable. No cardiomegaly. Bones/joints: Unremarkable. IMPRESSION: Large masslike opacity in the left upper lung and mild right perihilar infiltrate. Appearance in the left upper lung is concerning malignancy. Follow-up CT chest indicated. Dictated and Authenticated by: Tanner Darling MD. Ordering:BLAZE Campa MD
[2022-11-23 18:55] LABS: COVID-19 PCR Negative (Negative); Influenza A PCR Negative (Negative); Influenza B PCR Negative (Negative); RSV PCR Negative (Negative)
[2022-11-23 18:59] LABS: Source Nasopharynx
[2022-11-23] MEDS: MORPHine 10 MG/ML VIAL 2 MG IVP (19:19)
[2022-11-23] MEDS: Albuterol/Ipratropium 3 ML UPD VIAL UPD (19:19)
[2022-11-23] MEDS: Ondansetron 4 MG/2 ML VIAL IVP (19:20)
[2022-11-23] MEDS: Doxycycline Hyclate 100 MG CAP PO (19:34)
[2022-11-23] MEDS: Albuterol HFA 8 GM 60 PUFF INH IH (20:30)
[2022-11-23] MEDS: Doxycycline Hyclate 100 MG, 2 CAPS/BTL PO (20:30)
== END 2022-11-23 20:55 | disposition home or self-care (01) ==
PROVIDERS: Emergency Provider Registered Nurse Emergency; PCP Family Medicine
DX: R91.8 Other nonspecific abnormal finding of lung field (principal); C34.90 Malignant neoplasm of unspecified part of unspecified bronchus or lung; R07.9 Chest pain, unspecified
CPT/HCPCS: 80053; 87637; 93005; 96374; 99284; 71046; 83735; 83880; 84484; 85025; 93010; J2270; J2405; J7620

== ENCOUNTER 2022-11-29 10:59 | Emergency (ER) | payer MEDICAID, SELFPAY ==
[2022-11-29] VITALS (9 sets, daily range): BP systolic 99–114; BP diastolic 62–71; PULSE 72–94; RESP 15; TEMP 36.9; O2SAT 93–95
--- NOTE | 2022-11-29 11:19 | W.ED.GENAD ---
Discharge Plan Disposition Patient Disposition: Home Discharge Details Clinical Impression: Chronic pain, Lung cancer Primary Care Provider: Chung Perry ED Provider: Jewel Castle [place] Meds and New Rx's Prescriptions: New hydromorphone [Dilaudid] 2 mg tablet 2 mg PO Q6H PRN (Reason: pain) Qty: 10 0RF No Action oxycodone 5 mg tablet 5 mg PO Q8H PRN PRN sennosides [senna] 8.6 mg tablet 8.6 mg PO DAILY Qty: 90 3RF hydroxyzine HCl 25 mg tablet 25 mg PO BID PRN olanzapine [Zyprexa] 10 mg Tablet 20 mg PO HS bupropion HCl 150 mg tablet extended release 24 hr 150 mg PO QAM trazodone 50 mg tablet 50 mg PO HS sertraline 100 mg tablet 150 mg PO DAILY levothyroxine 100 mcg tablet 100 mcg PO DAILY magnesium oxide 400 mg (241.3 mg magnesium) tablet 400 mg PO DAILY gabapentin 300 mg capsule 300 mg PO HS omeprazole 20 mg capsule,delayed release(DR/EC) 20 mg PO DAILY pravastatin 20 mg tablet 20 mg PO HS melatonin 10 mg capsule 10 mg PO HS doxycycline hyclate 100 mg tablet 100 mg PO BID 10 Days Qty: 20 0RF Rx Instructions: Take one tablet by mouth x 10 days Discharge Instructions Instructions: Chronic Pain (ED) Discharge Data Discharge Date/Time-TO BE ENTERED AT DEPARTURE: 11/29/22 12:53 HPI General Date/Time Provider Initiated Documentation: 11/29/22 11:00. HPI Narrative: 56 year old male with terminal Lung Ca, not on tx, presents to the ED with worsening rib pain. He takes oxycodone 5 mg at home but says it is not helping. He does also follow with palliative care, but has not reached out recently about his pain management. No new fevers/chills. NO sob, no abd pain. Related Data Home Medications Medication Instructions Recorded Confirmed bupropion HCl 150 mg 24 hr tablet, 150 mg PO QAM 01/26/22 11/29/22 extended release hydroxyzine HCl 25 mg tablet 25 mg PO BID PRN 01/26/22 11/29/22 olanzapine 10 mg tablet (Zyprexa) 20 mg PO HS 01/26/22 11/29/22 trazodone 50 mg tablet 50 mg PO HS 01/26/22 11/29/22 oxycodone 5 mg tablet 5 mg PO Q8H PRN PRN 10/10/22 11/29/22 sennosides 8.6 mg tablet (senna) 8.6 mg PO DAILY Opioid induced 11/07/22 11/29/22 constipation #90 tabs doxycycline hyclate 100 mg tablet 100 mg PO BID Pneumonia 10 days 11/23/22 11/29/22 #20 tabs gabapentin 300 mg capsule 300 mg PO HS 11/23/22 11/29/22 levothyroxine 100 mcg tablet 100 mcg PO DAILY 11/23/22 11/29/22 magnesium oxide 400 mg (241.3 mg 400 mg PO DAILY 11/23/22 11/29/22 magnesium) tablet melatonin 10 mg capsule 10 mg PO HS 11/23/22 11/29/22 omeprazole 20 mg capsule,delayed 20 mg PO DAILY 11/23/22 11/29/22 release pravastatin 20 mg tablet 20 mg PO HS 11/23/22 11/29/22 sertraline 100 mg tablet 150 mg PO DAILY 11/23/22 11/29/22 hydromorphone 2 mg tablet 2 mg PO Q6H PRN pain #10 tabs 11/29/22 (Dilaudid) Previous Rx's Medication Instructions Recorded sennosides 8.6 mg tablet (senna) 8.6 mg PO DAILY Opioid induced 11/07/22 constipation #90 tabs doxycycline hyclate 100 mg tablet 100 mg PO BID Pneumonia 10 days 11/23/22 #20 tabs hydromorphone 2 mg tablet 2 mg PO Q6H PRN pain #10 tabs 11/29/22 (Dilaudid) Allergies Allergy/AdvReac Type Severity Reaction Status Date / Time Sulfa (Sulfonamide Allergy Severe Swelling/Ed Unverified 11/29/22 11:12 Antibiotics) jostin General Stated Complaint: GenMedical ABA: 4 Review of Systems Narrative: CONST: no fever or chills SKIN: no rashes PULM: no sob, no cough CARD: +'rib pain' EXTR: no swelling NEURO: No focal weakness PFSH All Active Problems (Updated 11/29/22 @ 12:35 by Jewel Castle MD) Right middle lobe pulmonary infiltrate (Acute) Mass of left lung (Acute) Chronic pain (Chronic) Lung cancer (Chronic) Cancer related pain (Acute) Advanced care planning/counseling discussion (Acute) Palliative care patient (Acute) Bilateral lung cancer (Acute) Adenocarcinoma from 2020 biopsy COVID (Acute) Suicidal ideation (Acute) Depression (Chronic) Deliberate self-cutting (Acute) Other social stressor (Acute) Agitation (Acute) Hemoptysis (Acute) Thumb injury (Acute) Abnormal chest CT (Acute) GERD (gastroesophageal reflux disease) (Chronic) Hypercholesterolemia (Chronic) Suicidal thoughts (Acute) Leukocytosis (Chronic) Tobacco abuse (Chronic) Suicidal ideation (Acute) Anxiety (Chronic) Depression (Chronic) COPD (chronic obstructive pulmonary disease) (Chronic) Depression (Chronic) Bipolar disorder (Chronic) Depression with suicidal ideation (Acute) Medical History Bipolar disorder Depressed Shingles Stress Suicidal ideations Suicidal thoughts Traumatic pneumothorax 2017, chest tube x2 Surgical History History of ankle surgery S/P thoracostomy tube placement Social History Smoking/Tobacco Use Status: Current every day Tobacco Type: cigarettes Smoking risk assessment performed?: Yes Alcohol Intake: never Drug use: Daily Substance use type: marijuana Details: Pt reports cannabis use for relaxation, pain management Housing: apartment Current gender identity: male Do you feel safe at home: No (does not feel safe with self) Do you feel safe in your relationship?: Yes Additional Social history: Lives in a private apartment. Has [facility] case management Exam Narrative Exam Narrative: Const: no acute distress HEENT: normocephalic, atraumatic Lungs: CTA, no wheezing or rales Heart: RRR Ext: well perfused Neuro: non-focal Skin: no rashes Course 56 year old with Lung Ca, not on tx, presents to the ED with c/o worsening pain related to his lung ca, not improved with his oxycodone. No other acute changes. He has appt to see pcp in 6 days, but they are currently out of town. Will plan on IV dilaudid here, and can give small number for home until his pcp appt. Vital Signs Vital signs: Vital Signs Temperature 36.9 C 11/29/22 11:07 Pulse 94 H 11/29/22 11:07 Respiratory Rate 15 11/29/22 11:07 Blood Pressure 114/71 11/29/22 11:07 Pulse Oximetry 93 11/29/22 11:07 Temperature 36.9 C 11/29/22 11:07 Temperature Source Tympanic 11/29/22 11:07 Pulse 94 H 11/29/22 11:07 Respiratory Rate 15 11/29/22 11:07 Respiratory Effort Normal 11/29/22 11:10 Blood Pressure 114/71 11/29/22 11:07 Blood Pressure Position Sitting 11/29/22 11:07 Pulse Oximetry 93 11/29/22 11:07 Oxygen Delivery Method Nasal Cannula 11/29/22 11:07 Pain Level 9 11/29/22 11:07
[2022-11-29] MEDS: HYDROmorphone 2 MG/ML SYR 1 MG IVP (11:24)
== END 2022-11-29 12:53 | disposition home or self-care (01) ==
LOC: ER 12:59
PROVIDERS: Emergency Provider Emergency Medicine; PCP Family Medicine
DX: C34.91 Malignant neoplasm of unspecified part of right bronchus or lung (principal); G89.29 Other chronic pain
CPT/HCPCS: 96374; 99284; J1170

== ENCOUNTER 2022-12-05 16:10 | Outpatient (REF) | payer MEDICAID, SELFPAY ==
[2022-12-05 19:33] LABS: TSH 1.69 uIU/mL (0.36-3.74)
== END 2022-12-05 16:11 | disposition home or self-care (01) ==
LOC: NCHCN 16:10
PROVIDERS: PCP Family Medicine; Visit Provider Family Medicine
DX: E03.9 Hypothyroidism, unspecified (principal)
CPT/HCPCS: 84443

== ENCOUNTER 2022-12-12 14:32 | Emergency (ER) | payer MEDICAID, SELFPAY ==
[2022-12-12 14:40] VITALS: BP 115/79; PULSE 100; RESP 20; TEMP 36.5; O2SAT 95
--- NOTE | 2022-12-12 15:15 | RT.EKG_ITS ---
APPROVED REPORT Exam: Resting ECG Reason for Exam: chest pain Patient Location: E HR:97 bpm ECG Measurements Heart Rate 97 AXIS NJ 133 P 36 QRSd 89 QRS 11 QT 348 T 30 QTc 442 Conclusion Sinus rhythm...normal P axis, V-rate 60- 99 sinus rhythm, normal axis, normal intervals, non ischemic
--- NOTE | 2022-12-12 15:45 | DI.RAD_ITS ---
Exam(s) XR CHEST 2V PA LATERAL EXAM: XR CHEST 2V PA LATERAL CLINICAL HISTORY: lung cancer, chest pain TECHNIQUE: 2D digital imaging was performed of the chest. Two images were obtained. PA and lateral views were obtained. COMPARISON: CR,XR XR CHEST 2V PA LATERAL from 10/03/[address] CHEST PE CTA from 10/06/2022 CR,XR XR CHEST 2V PA LATERAL from 11/23/2022 FINDINGS: MEDIASTINUM: Normal. HEART: Normal. PULMONARY VASCULATURE: Normal. LUNGS: There is again seen a left upper lobe mass. There is an infiltrate again seen in the right in frahilar region. It appears slightly worse compared to the chest x-ray from 11/23/2022. PLEURAL SPACE: No pleural effusion or pneumothorax. BONE:Within normal limits for the patient's age. OTHER FINDINGS:Normal. IMPRESSION: 1. Left upper lobe carcinoma. 2. Slight worsening of the right basilar infiltrate. DATA REPOSITORY: RADIATION DOSE DELIVERED:
--- NOTE | 2022-12-12 15:48 | W.ED.GENAD ---
Discharge Plan Disposition Patient Disposition: Home Condition: Improving Discharge Details Chief Complaint: Chest/Rib Clinical Impression: Chest pain Primary Care Provider: Chung Perry ED Provider: Conner Velez Home Meds and New Rx's Prescriptions: No Action fentanyl 12 mcg/hr patch 72 hour 1 patch transdermal Q72H MDD 1 patch Qty: 5 0RF Rx Instructions: for cancer related pain, Palliative care patient. sennosides [senna] 8.6 mg tablet 8.6 mg PO DAILY Qty: 90 3RF hydroxyzine HCl 25 mg tablet 25 mg PO BID PRN olanzapine [Zyprexa] 10 mg Tablet 20 mg PO HS bupropion HCl 150 mg tablet extended release 24 hr 150 mg PO QAM trazodone 50 mg tablet 50 mg PO HS sertraline 100 mg tablet 150 mg PO DAILY levothyroxine 100 mcg tablet 100 mcg PO DAILY magnesium oxide 400 mg (241.3 mg magnesium) tablet 400 mg PO DAILY gabapentin 300 mg capsule 300 mg PO HS omeprazole 20 mg capsule,delayed release(DR/EC) 20 mg PO DAILY pravastatin 20 mg tablet 20 mg PO HS melatonin 10 mg capsule 10 mg PO HS hydromorphone [Dilaudid] 2 mg tablet 2 mg PO Q6H PRN (Reason: pain) Qty: 10 0RF Discharge Instructions Instructions: Chest Pain (ED) Additional Instructions: Please follow-up close with your primary care physician Medical Decision Making 56-year-old male history of lung cancer not undergoing radiation or chemotherapy presents with increased pain to chest wall mainly on the right. Afebrile nontoxic no acute distress no respiratory stress lungs clear bilaterally. No chest wall crepitus or deformity. Consider worsening malignancy versus pathologic fracture versus pleural effusion versus pleurisy lower suspicion for pneumonia PE or ACS. Will obtain screening x-ray EKG, screening labs, analgesia fluids close reassessment 17: 54 patient resting comfortably. Known cancer left upper lobe and right lower lobe. No cough fevers chills or worsening shortness of breath to suggest pneumonia. Patient follow-up closely with primary care physician for pain management HPI General Date/Time Provider Initiated Documentation: 12/12/22 15:14. HPI Narrative: 56-year-old male history of lung cancer not undergoing chemotherapy or radiation. Patient has been on various pain regimens at home including fentanyl patches and Dilaudid that are not helping. Pain to his chest wall mainly on the right side. Related Data Home Medications Medication Instructions Recorded Confirmed bupropion HCl 150 mg 24 hr tablet, 150 mg PO QAM 01/26/22 12/12/22 extended release hydroxyzine HCl 25 mg tablet 25 mg PO BID PRN 01/26/22 12/12/22 olanzapine 10 mg tablet (Zyprexa) 20 mg PO HS 01/26/22 12/12/22 trazodone 50 mg tablet 50 mg PO HS 01/26/22 12/12/22 sennosides 8.6 mg tablet (senna) 8.6 mg PO DAILY Opioid induced 11/07/22 12/12/22 constipation #90 tabs gabapentin 300 mg capsule 300 mg PO HS 11/23/22 12/12/22 levothyroxine 100 mcg tablet 100 mcg PO DAILY 11/23/22 12/12/22 magnesium oxide 400 mg (241.3 mg 400 mg PO DAILY 11/23/22 12/12/22 magnesium) tablet melatonin 10 mg capsule 10 mg PO HS 11/23/22 12/12/22 omeprazole 20 mg capsule,delayed 20 mg PO DAILY 11/23/22 12/12/22 release pravastatin 20 mg tablet 20 mg PO HS 11/23/22 12/12/22 sertraline 100 mg tablet 150 mg PO DAILY 11/23/22 12/12/22 hydromorphone 2 mg tablet 2 mg PO Q6H PRN pain #10 tabs 11/29/22 12/12/22 (Dilaudid) fentanyl 12 mcg/hr transdermal 1 patch transdermal Q72H #5 ea 12/01/22 12/12/22 patch Previous Rx's Medication Instructions Recorded sennosides 8.6 mg tablet (senna) 8.6 mg PO DAILY Opioid induced 11/07/22 constipation #90 tabs hydromorphone 2 mg tablet 2 mg PO Q6H PRN pain #10 tabs 11/29/22 (Dilaudid) fentanyl 12 mcg/hr transdermal 1 patch transdermal Q72H #5 ea 12/01/22 patch Allergies Allergy/AdvReac Type Severity Reaction Status Date / Time Sulfa (Sulfonamide Allergy Severe Swelling/Ed Unverified 12/12/22 14:43 Antibiotics) jostin General Stated Complaint: Chest/Rib ABA: 3 Review of Systems Narrative: Review of Systems Constitutional: negative Eyes: negative ENT: negative Cardiovascular: negative Respiratory: negative Gastrointestinal: negative : negative Musculoskeletal: Chest wall pain Skin: negative Neurologic: negative Psych: negative PFSH All Active Problems (Updated 12/12/22 @ 17:55 by Conner Velez MD) Right middle lobe pulmonary infiltrate (Acute) Mass of left lung (Acute) Chronic pain (Chronic) Lung cancer (Chronic) Chest pain (Acute) Cancer related pain (Acute) Advanced care planning/counseling discussion (Acute) Palliative care patient (Acute) Bilateral lung cancer (Acute) Adenocarcinoma from 2020 biopsy COVID (Acute) Suicidal ideation (Acute) Depression (Chronic) Deliberate self-cutting (Acute) Other social stressor (Acute) Agitation (Acute) Hemoptysis (Acute) Thumb injury (Acute) Abnormal chest CT (Acute) GERD (gastroesophageal reflux disease) (Chronic) Hypercholesterolemia (Chronic) Suicidal thoughts (Acute) Leukocytosis (Chronic) Tobacco abuse (Chronic) Suicidal ideation (Acute) Anxiety (Chronic) Depression (Chronic) COPD (chronic obstructive pulmonary disease) (Chronic) Depression (Chronic) Bipolar disorder (Chronic) Depression with suicidal ideation (Acute) Medical History Bipolar disorder Depressed Shingles Stress Suicidal ideations Suicidal thoughts Traumatic pneumothorax 2017, chest tube x2 Surgical History History of ankle surgery S/P thoracostomy tube placement Social History Smoking/Tobacco Use Status: Current every day Tobacco Type: cigarettes Smoking risk assessment performed?: Yes Alcohol Intake: never Drug use: Daily Substance use type: marijuana Details: Pt reports cannabis use for relaxation, pain management Housing: apartment Current gender identity: male Do you feel safe at home: No (does not feel safe with self) Do you feel safe in your relationship?: Yes Additional Social history: Lives in a private apartment. Has [facility] case management Exam Narrative Exam Narrative: Physical Examination General: alert, awake, cooperative, resting comfortably, no acute distress HEENT: normocephalic, atraumatic; PERRL, EOM intact, conjunctiva normal; no nasal discharge; moist mucous membranes, oral and pharyngeal mucosa normal, tolerating secretions Neck: supple, trachea midline; full ROM Chest: normal to inspection Respiratory: normal respiratory effort, speaking in full sentences, clear to auscultation, no wheezing, rales or rhonchi Cardiac: regular rate, regular rhythm, S1S2 intact, no murmurs rubs or gallops GI: abdomen soft, non-tender, non-distended; no palpable mass or hepatosplenomegaly Skin: no lesions, rashes or trauma appreciated Neuro: AAOx3, normal speech, moving all extremities Extremities: No peripheral edema appreciated Psych: Appropriate mood and affect Course Vital Signs Vital signs: Vital Signs Temperature 36.5 C 12/12/22 14:40 Pulse 100 H 12/12/22 14:40 Respiratory Rate 20 12/12/22 14:40 Blood Pressure 115/79 12/12/22 14:40 Pulse Oximetry 95 12/12/22 14:40 Temperature 36.5 C 12/12/22 14:40 Temperature Source Oral 12/12/22 14:40 Pulse 100 H 12/12/22 14:40 Respiratory Rate 20 12/12/22 14:40 Blood Pressure 115/79 12/12/22 14:40 Blood Pressure Position Sitting 12/12/22 14:40 Pulse Oximetry 95 12/12/22 14:40 Oxygen Delivery Method Room Air 12/12/22 14:40 Oxygen Flow Rate 0 12/12/22 14:40
[2022-12-12] MEDS: HYDROmorphone 2 MG/ML SYR 0.5 MG IVP (16:12)
[2022-12-12] MEDS: Normal Saline 1,000 ML 1000 ML IV (16:14)
[2022-12-12] MEDS: Ketorolac 15 MG/ML VIAL IVP (16:14)
[2022-12-12 16:20] LABS: Abs Immature Grans 0.07 10^3/uL (0.0-0.06); Absolute Basophil Count 0.08 10^3/uL (0.0-0.2); Absolute Eosinophil Count 0.75 10^3/uL (0.0-0.7); Absolute Lymphocyte Count 1.34 10^3/uL (1.2-3.4); Absolute Monocyte Count 0.73 10^3/uL (0.1-0.8); Absolute Neutrophil Count 9.55 10^3/uL (1.2-6.7); Basophils % 0.6; HGB 13.8 g/dL (13.5-17.5); Immature Grans % 0.6; Lymphocytes % 10.7; MCH 24.4 pg (27.0-33.0); MCHC 32.9 % (32.0-36.0); MCV 74 fL (80-95); MPV 10.8 fL (8.0-11.0); Monocytes % 5.8; Neutrophils % 76.3; Platelet Count 325 10^3/uL (130-400); RBC 5.65 10^6/uL (4.36-5.78); RDW 14.5 % (11.8-14.1); RDW-SD 38.5 fL; WBC 12.52 10^3/uL (4.4-10.8)
[2022-12-12 16:38] LABS: ALT 15 U/L (16-63); AST 17 U/L (15-37); Albumin 3.2 g/dL (3.4-5.0); Alkaline Phosphatase 156 U/L (46-116); Anion Gap 12.2 mmol/L (3-11); BUN 24 mg/dL (7-18); Bilirubin, Total 0.3 mg/dL (0.2-1.0); CO2 22.8 mmol/L (21.0-32.0); CREATININE 0.9 mg/dL (0.70-1.30); Calcium 9.1 mg/dL (8.5-10.1); Chloride 101 mmol/L (98-107); Estimated GFR 99.62 (mL/min/1.73m2); Glucose 118 mg/dL (74-106); Potassium 3.7 mmol/L (3.5-5.1); Sodium 136 mmol/L (136-145); Total Protein 8.2 g/dL (6.4-8.2); Troponin I < 50 ng/L (<or=60)
[2022-12-12 18:15] VITALS: BP 110/74; PULSE 82; RESP 18; O2SAT 91
== END 2022-12-12 18:16 | disposition home or self-care (01) ==
PROVIDERS: Emergency Provider Emergency Medicine; PCP Family Medicine
DX: R07.9 Chest pain, unspecified (principal)
CPT/HCPCS: 80053; 93005; 96361; 96374; 96375; 99284; 71046; 84484; 85025; 93010; J1170; J1885

== ENCOUNTER 2022-12-19 14:11 | Emergency (ER) | payer MEDICAID, SELFPAY ==
[2022-12-19] VITALS (33 sets, daily range): BP systolic 44–110; BP diastolic 25–77; PULSE 84–111; RESP 16–20; TEMP 36.4; O2SAT 86–97
--- NOTE | 2022-12-19 14:00 | RT.EKG_ITS ---
APPROVED REPORT Exam: Resting ECG Reason for Exam: Weakness Patient Location: E HR:90 bpm ECG Measurements Heart Rate 90 AXIS WI 132 P 51 QRSd 93 QRS 17 QT 364 T 35 QTc 445 Conclusion Sinus rhythm...normal P axis, V-rate 60- 99
--- NOTE | 2022-12-19 14:43 | W.ED.GENAD ---
Discharge Plan Discharge Details Chief Complaint: SOB Primary Care Provider: Chung Perry ED Provider: Francisco Majano Home Meds and New Rx's Prescriptions: No Action fentanyl 12 mcg/hr patch 72 hour 1 patch transdermal Q72H MDD 1 patch Qty: 5 0RF Rx Instructions: for cancer related pain, Palliative care patient. sennosides [senna] 8.6 mg tablet 8.6 mg PO DAILY Qty: 90 3RF fentanyl 25 mcg/hr patch 72 hour 1 patch transdermal Q72H MDD 1 patch Qty: 5 0RF Rx Instructions: for cancer related pain palliative care patient hydroxyzine HCl 25 mg tablet 25 mg PO BID PRN olanzapine [Zyprexa] 10 mg Tablet 20 mg PO HS bupropion HCl 150 mg tablet extended release 24 hr 150 mg PO QAM trazodone 50 mg tablet 50 mg PO HS sertraline 100 mg tablet 150 mg PO DAILY levothyroxine 100 mcg tablet 100 mcg PO DAILY magnesium oxide 400 mg (241.3 mg magnesium) tablet 400 mg PO DAILY gabapentin 300 mg capsule 300 mg PO HS omeprazole 20 mg capsule,delayed release(DR/EC) 20 mg PO DAILY pravastatin 20 mg tablet 20 mg PO HS melatonin 10 mg capsule 10 mg PO HS hydromorphone [Dilaudid] 2 mg tablet 2 mg PO Q6H PRN (Reason: pain) Qty: 10 0RF Medical Decision Making 1350 --57-year-old male with multiple medical problems including history of bilateral lung cancer, not currently undergoing treatment, COPD, not on oxygen at home, here with increasing shortness of breath over the past 1 week, worse with exertion. Patient has chronic persistent chest pain. Patient hypoxic with any exertion on room air, saturating in the mid to upper 80s. Low-flow nasal cannula oxygen administered at 1 L and saturations improved to mid 90s at rest. I do believe patient would continue to benefit from oxygen therapy given underlying COPD and lung cancer with increasing shortness of breath. Consider acute pulmonary embolism. Patient had negative CT of the chest in September. Will obtain D-dimer. EKG was reviewed and interpreted by me: Please report, sinus rhythm 90 bpm, nondiagnostic. I suspect chest pain is related to his lung cancer but we will obtain troponin. Patient also notes frequent falls recently. He states he lacks balance at times. He fell twice today. No trauma sustained. Consider metastatic brain lesion. He had a MRI of the brain that was performed in May that was nondiagnostic. Plan to repeat brain imaging. MRI not available at this time. We will obtain CT of the head. Will obtain CTA of the brain and neck to assess for posterior circulation CVA. Lab Data Lab results reviewed: Yes I reviewed the patient's lab results. Labs: Laboratory Tests Range/Units 12/19/22 12/19/22 14:43 14:43 WBC (4.4-10.8) 10^3/uL 11.08 H RBC (4.36-5.78) 10^6/uL 5.16 Hgb (13.5-17.5) g/dL 12.5 L Hct (40.0-50.0) % 38.3 L MCV (80-95) fL 74 L MCH (27.0-33.0) pg 24.2 L MCHC (32.0-36.0) % 32.6 RDW (11.8-14.1) % 14.6 H Plt Count (130-400) 10^3/uL 328 MPV (8.0-11.0) fL 10.0 Immature Gran % 0.5 Neutrophils % 70.0 Lymphocytes % 10.8 Monocytes % 5.6 Eosinophils % 12.6 Basophils % 0.5 Nucleated RBC % (0.0-0.3) % 0.0 Absolute Neutrophils (1.2-6.7) 10^3/uL 7.76 H Absolute Lymphocytes (1.2-3.4) 10^3/uL 1.20 Absolute Monocytes (0.1-0.8) 10^3/uL 0.62 Absolute Eosinophils (0.0-0.7) 10^3/uL 1.40 H Absolute Basophils (0.0-0.2) 10^3/uL 0.06 Sodium (136-145) mmol/L 134 L Potassium (3.5-5.1) mmol/L 4.0 Chloride (98-107) mmol/L 100 Carbon Dioxide (21.0-32.0) mmol/L 27.6 Anion Gap (3-11) mmol/L 6.4 BUN (7-18) mg/dL 18 Creatinine (0.70-1.30) mg/dL 0.8 Est GFR (CKD-EPI 2020) (mL/min/1.73m2) 102.58 Glucose (74-106) mg/dL 104 Calcium (8.5-10.1) mg/dL 8.9 Magnesium (1.8-2.4) mg/dL 1.8 Total Bilirubin (0.2-1.0) mg/dL 0.3 AST (15-37) U/L 52 H ALT (16-63) U/L 30 Alkaline Phosphatase (46-116) U/L 130 H Troponin I (<or=60) ng/L < 50 NT-Pro-B Natriuret Pep (<300) pg/mL 430 H Total Protein (6.4-8.2) g/dL 7.0 Albumin (3.4-5.0) g/dL 2.6 L HPI General Mode of arrival: EMS. Date/Time Provider Initiated Documentation: 12/19/22 14:22. Limitations to Documentation: no limitations. Information obtained by: patient. HPI Narrative: 57-year-old male with history of bilateral lung cancer, not being treated, COPD, bipolar disorder, presents today by EMS with complaint of shortness of breath. Patient notes worsening shortness of breath over the past 1 week. Symptoms worse with exertion. Patient notes increased weakness as well. Ongoing persistent chest discomfort. Patient denies lower extremity edema or calf pain. He does state he has had frequent falls recently. He attributes this to a lack of balance that occurs intermittently. Patient seems to fall to the right when he does fall. No trauma sustained with recent falls. Patient states that home health was out to evaluate him yesterday and suggested that he be hospitalized for period of time. Related Data Home Medications Medication Instructions Recorded Confirmed bupropion HCl 150 mg 24 hr tablet, 150 mg PO QAM 01/26/22 12/19/22 extended release hydroxyzine HCl 25 mg tablet 25 mg PO BID PRN 01/26/22 12/19/22 olanzapine 10 mg tablet (Zyprexa) 20 mg PO HS 01/26/22 12/19/22 trazodone 50 mg tablet 50 mg PO HS 01/26/22 12/19/22 sennosides 8.6 mg tablet (senna) 8.6 mg PO DAILY Opioid induced 11/07/22 12/19/22 constipation #90 tabs gabapentin 300 mg capsule 300 mg PO HS 11/23/22 12/19/22 levothyroxine 100 mcg tablet 100 mcg PO DAILY 11/23/22 12/19/22 magnesium oxide 400 mg (241.3 mg 400 mg PO DAILY 11/23/22 12/19/22 magnesium) tablet melatonin 10 mg capsule 10 mg PO HS 11/23/22 12/19/22 omeprazole 20 mg capsule,delayed 20 mg PO DAILY 11/23/22 12/19/22 release pravastatin 20 mg tablet 20 mg PO HS 11/23/22 12/19/22 sertraline 100 mg tablet 150 mg PO DAILY 11/23/22 12/19/22 hydromorphone 2 mg tablet 2 mg PO Q6H PRN pain #10 tabs 11/29/22 12/19/22 (Dilaudid) fentanyl 12 mcg/hr transdermal 1 patch transdermal Q72H #5 ea 12/01/22 12/15/22 patch fentanyl 25 mcg/hr transdermal 1 patch transdermal Q72H #5 ea 12/15/22 12/19/22 patch Previous Rx's Medication Instructions Recorded sennosides 8.6 mg tablet (senna) 8.6 mg PO DAILY Opioid induced 11/07/22 constipation #90 tabs hydromorphone 2 mg tablet 2 mg PO Q6H PRN pain #10 tabs 11/29/22 (Dilaudid) fentanyl 12 mcg/hr transdermal 1 patch transdermal Q72H #5 ea 12/01/22 patch fentanyl 25 mcg/hr transdermal 1 patch transdermal Q72H #5 ea 12/15/22 patch Allergies Allergy/AdvReac Type Severity Reaction Status Date / Time Sulfa (Sulfonamide Allergy Severe Swelling/Ed Unverified 12/19/22 14:20 Antibiotics) jostin General Stated Complaint: SOB AAB: 3 Review of Systems All systems reviewed & are unremarkable except as noted in HPI and below Constitutional Constitutional: Denies fever(s), Reports frequent falls and Denies headache(s) ENT Ears, Nose, Mouth, and Throat: Reports dizziness and Denies headache(s) Cardiovascular Cardiovascular: Reports as per HPI, Reports chest pain and Reports dyspnea Respiratory Respiratory: Reports dyspnea Gastrointestinal Gastrointestinal: Denies abdominal pain Neurologic Neurologic: Reports as per HPI, Reports dizziness, Reports frequent falls and Denies headache(s) PFSH All Active Problems Right middle lobe pulmonary infiltrate (Acute) Mass of left lung (Acute) Chronic pain (Chronic) Lung cancer (Chronic) Chest pain (Acute) Cancer related pain (Acute) Advanced care planning/counseling discussion (Acute) Palliative care patient (Acute) Bilateral lung cancer (Acute) Adenocarcinoma from 2020 biopsy COVID (Acute) Suicidal ideation (Acute) Depression (Chronic) Deliberate self-cutting (Acute) Other social stressor (Acute) Agitation (Acute) Hemoptysis (Acute) Thumb injury (Acute) Abnormal chest CT (Acute) GERD (gastroesophageal reflux disease) (Chronic) Hypercholesterolemia (Chronic) Suicidal thoughts (Acute) Leukocytosis (Chronic) Tobacco abuse (Chronic) Suicidal ideation (Acute) Anxiety (Chronic) Depression (Chronic) COPD (chronic obstructive pulmonary disease) (Chronic) Depression (Chronic) Bipolar disorder (Chronic) Depression with suicidal ideation (Acute) Medical History Bipolar disorder Depressed Shingles Stress Suicidal ideations Suicidal thoughts Traumatic pneumothorax 2017, chest tube x2 Surgical History History of ankle surgery S/P thoracostomy tube placement Social History Smoking/Tobacco Use Status: Current every day Tobacco Type: cigarettes Smoking risk assessment performed?: Yes Alcohol Intake: never Drug use: Daily Substance use type: marijuana Details: Pt reports cannabis use for relaxation, pain management Housing: apartment Current gender identity: male Do you feel safe at home: No (does not feel safe with self) Do you feel safe in your relationship?: Yes Additional Social history: Lives in a private apartment. Has [facility] case management Exam Const General: cooperative and no acute distress [facility] Head: normocephalic and atraumatic Mouth: moist mucous membranes Eyes Conjunctivae: normal conjunctivae Sclera: normal sclerae Resp Effort & Inspection: normal respiratory effort Auscultation: clear to auscultation bilaterally, diminished lung sounds on the right, no rales, no rhonchi and no wheezes Cardio Rate: regular rate and not tachycardic Rhythm: regular rhythm GI Palpation: soft, not firm, no guarding, no masses, not rigid and nontender Skin General skin exam: no rashes or lesions noted Neuro General: patient alert, patient awake, patient oriented x3 and tone normal Cranial Nerves: CN's II-XI intact bilaterally Cognition: normal cognition Speech: speech normal Motor: strength 5/5 throughout Coordination: [id number] test normal, rapid alternating movement UE normal and other (When attempting to perform left heel to right vazquez he had some difficulty) Extrem General: no edema Psych Appearance: grossly normal Mental Status: mental status grossly normal Speech and Movement: speech and movement normal Course Vital Signs Vital signs: Vital Signs Temperature 36.4 C 12/19/22 14:10 Pulse 95 H 12/19/22 14:10 Respiratory Rate 18 12/19/22 14:10 Blood Pressure 105/69 12/19/22 14:10 Pulse Oximetry 93 12/19/22 14:10 Temperature 36.4 C 12/19/22 14:10 Temperature Source Oral 12/19/22 14:10 Pulse 95 H 12/19/22 14:10 Respiratory Rate 20 12/19/22 14:16 Respiratory Effort Short of Breath 12/19/22 14:16 Respiratory Depth Normal 12/19/22 14:16 Respiratory Pattern Normal 12/19/22 14:16 Blood Pressure 105/69 12/19/22 14:10 Blood Pressure Position Sitting 12/19/22 14:10 Pulse Oximetry 93 12/19/22 14:10 Oxygen Delivery Method Nasal Cannula 12/19/22 14:10 Oxygen Flow Rate 1 12/19/22 14:10 Pain Level 6 12/19/22 14:10
[2022-12-19 14:54] LABS: Abs Immature Grans 0.06 10^3/uL (0.0-0.06); Absolute Basophil Count 0.06 10^3/uL (0.0-0.2); Absolute Monocyte Count 0.62 10^3/uL (0.1-0.8); Basophils % 0.5; Eosinophils % 12.6; HCT 38.3 % (40.0-50.0); HGB 12.5 g/dL (13.5-17.5); Immature Grans % 0.5; Lymphocytes % 10.8; MCH 24.2 pg (27.0-33.0); MCHC 32.6 % (32.0-36.0); MCV 74 fL (80-95); Monocytes % 5.6; Platelet Count 328 10^3/uL (130-400); RBC 5.16 10^6/uL (4.36-5.78); RDW 14.6 % (11.8-14.1); RDW-SD 38.7 fL; WBC 11.08 10^3/uL (4.4-10.8)
[2022-12-19 14:55] LABS: Absolute Neutrophil Count 7.76 10^3/uL (1.2-6.7)
[2022-12-19 15:17] LABS: ALT 30 U/L (16-63); AST 52 U/L (15-37); Albumin 2.6 g/dL (3.4-5.0); Alkaline Phosphatase 130 U/L (46-116); Anion Gap 6.4 mmol/L (3-11); BUN 18 mg/dL (7-18); Bilirubin, Total 0.3 mg/dL (0.2-1.0); CO2 27.6 mmol/L (21.0-32.0); CREATININE 0.8 mg/dL (0.70-1.30); Calcium 8.9 mg/dL (8.5-10.1); Chloride 100 mmol/L (98-107); Estimated GFR 102.58 (mL/min/1.73m2); Glucose 104 mg/dL (74-106); Magnesium 1.8 mg/dL (1.8-2.4); NT-proBNP 430 pg/mL (<300); Sodium 134 mmol/L (136-145); Troponin I < 50 ng/L (<or=60)
[2022-12-19 15:26] LABS: D-Dimer 2839 ng/mlFEU (<500)
[2022-12-19 15:48] LABS: Diff Comment RBC Morph Reviewed; Microcytosis 1+
--- NOTE | 2022-12-19 15:49 | ED.PROG_ITS ---
Date of service: 12/19/22 Time of Service: 15:50 Medical Decision Making 1550: Care assumed from provider (Dr. Francisco Majano) Please see their initial HPI, PE, and documentation. Discussed patient details and case and pending workup and disposition. At the time of signout awaiting CT brain and neck, CT chest rule out PE due to elevated D-dimer. Will page respiratory therapy for home O2 evaluation after CT results. Awaiting disposition. Patient does have a history of bilateral lung cancer and COPD. 1616: Palliative care Dr. Kerns at for eval and consultation. 1643: Spoke with Dr. Dixon, negative for anything acute on CTA Head and neck. 1655: Spoke with Dr. Dixon regarding the chest CT she reports that the left upper lobe mass has gotten larger and is worse also small to moderate right pleural effusion no pulmonary embolism. After discussion of the CT results and options for admission versus discharge home with home O2. After discussion of shared decision making with the risks and benefits of discharge home versus admission patient reports that he would like to be discharged home with home O2 if possible. I will place an additional home health referral to assist with home O2 set up. Patient did recently have his first home health visit on Sunday. Patient placed on room air at this time. We will continue to observe. RT paged for set-up of home O2. Care management paged however, patient may already have Home health set up. Patient is requiring 1L 02 at rest to maintain sats between 90 and 93%. He is requiring 2 L during ambulation to maintain sats above 92%. O2 sat has dropped to 86% or less on room air. 1747:RT at for Home O2 eval, he does qualify. Prescription for albuterol inhaler written. Patient reports that a friend will get him home. This text was generated using Intelligent Fingerprintingation system, please disregard any oddities of phrase or misspellings. Medical Records Medical records reviewed: Yes I reviewed the patient's medical records. Lab Data Lab results reviewed: Yes I reviewed the patient's lab results. Labs: Laboratory Tests Range/Units 12/19/22 12/19/22 12/19/22 14:43 14:43 14:43 WBC (4.4-10.8) 10^3/uL 11.08 H RBC (4.36-5.78) 10^6/uL 5.16 Hgb (13.5-17.5) g/dL 12.5 L Hct (40.0-50.0) % 38.3 L MCV (80-95) fL 74 L MCH (27.0-33.0) pg 24.2 L MCHC (32.0-36.0) % 32.6 RDW (11.8-14.1) % 14.6 H Plt Count (130-400) 10^3/uL 328 MPV (8.0-11.0) fL 10.0 Immature Gran % 0.5 Neutrophils % 70.0 Lymphocytes % 10.8 Monocytes % 5.6 Eosinophils % 12.6 Basophils % 0.5 Nucleated RBC % (0.0-0.3) % 0.0 Absolute Neutrophils (1.2-6.7) 10^3/uL 7.76 H Absolute Lymphocytes (1.2-3.4) 10^3/uL 1.20 Absolute Monocytes (0.1-0.8) 10^3/uL 0.62 Absolute Eosinophils (0.0-0.7) 10^3/uL 1.40 H Absolute Basophils (0.0-0.2) 10^3/uL 0.06 RBC Morphology See Below Microcytosis 1+ D-Dimer (<500) ng/mlFEU 2839 H Sodium (136-145) mmol/L 134 L Potassium (3.5-5.1) mmol/L 4.0 Chloride (98-107) mmol/L 100 Carbon Dioxide (21.0-32.0) mmol/L 27.6 Anion Gap (3-11) mmol/L 6.4 BUN (7-18) mg/dL 18 Creatinine (0.70-1.30) mg/dL 0.8 Est GFR (CKD-EPI 2020) (mL/min/1.73m2) 102.58 Glucose (74-106) mg/dL 104 Calcium (8.5-10.1) mg/dL 8.9 Magnesium (1.8-2.4) mg/dL 1.8 Total Bilirubin (0.2-1.0) mg/dL 0.3 AST (15-37) U/L 52 H ALT (16-63) U/L 30 Alkaline Phosphatase (46-116) U/L 130 H Troponin I (<or=60) ng/L < 50 NT-Pro-B Natriuret Pep (<300) pg/mL 430 H Total Protein (6.4-8.2) g/dL 7.0 Albumin (3.4-5.0) g/dL 2.6 L Sign Out Sign Out Data: Sign Out Comment: Follow-up palliative care consult, CT chest, CT head, CTA head and neck. Reassess patient for dispo. Last updated by Francisco Majano MD at 12/19/22 15:36 Discharge Plan Disposition Patient Disposition: Home Condition: Fair Discharge Details Clinical Impression: Bilateral lung cancer, COPD (chronic obstructive pulmonary disease), Hypoxia, Pleural effusion on right Primary Care Provider: Chung Perry ED Provider: Katheryn Kimball Home Meds and New Rx's Prescriptions: New albuterol sulfate 90 mcg/actuation HFA aerosol inhaler 2 puff inhalation QID PRN (Reason: shortness of breath or wheezing) Qty: 8 0RF Rx Instructions: Use 1 or 2 puffs every 4-6 hours as needed for shortness of breath or wheezing. No Action fentanyl 12 mcg/hr patch 72 hour 1 patch transdermal Q72H MDD 1 patch Qty: 5 0RF Rx Instructions: for cancer related pain, Palliative care patient. sennosides [senna] 8.6 mg tablet 8.6 mg PO DAILY Qty: 90 3RF fentanyl 25 mcg/hr patch 72 hour 1 patch transdermal Q72H MDD 1 patch Qty: 5 0RF Rx Instructions: for cancer related pain palliative care patient hydroxyzine HCl 25 mg tablet 25 mg PO BID PRN olanzapine [Zyprexa] 10 mg Tablet 20 mg PO HS bupropion HCl 150 mg tablet extended release 24 hr 150 mg PO QAM trazodone 50 mg tablet 50 mg PO HS sertraline 100 mg tablet 150 mg PO DAILY levothyroxine 100 mcg tablet 100 mcg PO DAILY magnesium oxide 400 mg (241.3 mg magnesium) tablet 400 mg PO DAILY gabapentin 300 mg capsule 300 mg PO HS omeprazole 20 mg capsule,delayed release(DR/EC) 20 mg PO DAILY pravastatin 20 mg tablet 20 mg PO HS melatonin 10 mg capsule 10 mg PO HS hydromorphone [Dilaudid] 2 mg tablet 2 mg PO Q6H PRN (Reason: pain) Qty: 10 0RF Discharge Instructions Instructions: Using Oxygen at Home (ED), COPD (Chronic Obstructive Pulmonary Disease) (ED) Additional Instructions: Or mass in your left upper lobe of your lung has increased in size. You do have a little bit of a fluid collection called a pleural effusion on the right side of your lung. A prescription for albuterol inhaler was given to you please take this as prescribed as needed for wheezing or shortness of breath 1 or 2 puffs every 4-6 hours. At this time you have opted to be discharged home. Please wear the oxygen 24 hours as directed by respiratory therapy. Please discuss the home O2 and med management with home health. Please take your medications as previously prescribed. Follow up with primary care provider/palliative care/director of home care hospice in 3-5 days. Return to ED sooner if any worsening or concerns. Increase oral fluids. Referrals: Audrey Kerns MD [ [facility] ST[facility]FF [facility]YSICIAN] - 1 week Chung Perry [Primary Care Provider] - 3 days
[2022-12-19] MEDS: Omnipaque 350 MG/ML 100 ML BTL IJ (16:20)
[2022-12-19] MEDS: Normal Saline - Diluent 50 ML VIAL 100 ML IV (16:21)
--- NOTE | 2022-12-19 16:25 | DI.CT_ITS ---
Exam(s) CT CHEST PE CTA EXAM: CT CHEST PE CTA CLINICAL HISTORY: sob, lung ca, migdalia pain, elevated ddimer. TECHNIQUE: Imaging Protocol: Axial CT angiography was performed with multi-slice acquisition and mu lti-planar reconstructions as well as axial, coronal and sagittal MIP reconstructions. CONTRAST MATERIAL: Intravenous: Omnipaque 350 Contrast volume:100 ml COMPARISON: CT CT CHEST PE CTA from 10/06/[address] BRAIN NECK CTA from 12/19/2022 FINDINGS: Pulmonary Arteries: No evidence of filling defect to suggest pulmonary emboli. Tracheobronchial tree: Patent where visualized. Mediastinum and Kimberly: No dominant adenopathy or fluid collection. Pulmonary parenchyma: Large left upper lobe mass, increasing in size when compared with the previous exam, measuring roughly 7 x 5 by 0.5 cm. Increasing densities at the right posterior lung base. se mathew underlying emphysematous changes. Pleura: Small to moderate-sized right pleural effusion now present. Heart: The heart is not dilated. No coronary artery calcifications are seen. No pericardial effusion. Aorta: Thoracic aorta non-dilated. No aneurysm. No dissection. Upper abdomen: Unremarkable. Bones: Unremarkable for age. Tubes, Catheters, and Lines: None IMPRESSION: No evidence of pulmonary embolism. No aortic dissection. Interval increase in size of left upper lobe mass. Increasing densities in the posterior right lung base. New right pleural effusion. Findings called to Katheryn Kimball of the emergency department. RADIATION DOSE DELIVERED: 313.03mGy.cm Total DLP DATA REPOSITORY: All CT scans at this facility are submitted to the National Radiology Data Registry (NRDR) Dose Index Registry (DIR) with the [employer] (A[employer]). RADIATION OPTIMIZATION: All CT scans at this facility use at least one of these dose optimization te chniques: automated exposure control; mA and/or kV adjustment per patient size (includes targeted exa ms where dose is matched to clinical indication); or iterative reconstruction.
--- NOTE | 2022-12-19 16:30 | DI.CT_ITS ---
Exam(s) CT BRAIN NECK CTA EXAM: CT BRAIN NECK CTA CLINICAL HISTORY: dizzy, falling to right, lung cancer. TECHNIQUE: Imaging Protocol: Axial CT angiography was performed with multi-slice acquisition and mu lti-planar and 3D reconstructions. CONTRAST MATERIAL: Intravenous: Omnipaque 350 Contrast volume:85 mL COMPARISON: CT CT CHEST PE CTA from 10/06/2022 FINDINGS: CT Head W/O and W contrast: Ventricles and Extra axial spaces: Normal in size and morphology for the patient's age. Hemorrhage: None. Cerebral parenchyma: Normal. Midline shift: None. Brainstem/Cerebellum: Normal. Calvarium: Normal. Visualized Paranasal sinuses/Mastoids: Clear. Soft Tissues: Unremarkable. Enhancement: Normal. CTA Brain W: Internal Carotid Arteries: Petrous: Normal. Cavernous: Normal. Cerebral: Normal. Middle Cerebral Arteries: Right: No aneurysm, occlusion or significant stenosis. Left: No aneurysm, occlusion or significant stenosis. Anterior Cerebral Arteries: Right: No aneurysm, occlusion or significant stenosis. Left: No aneurysm, occlusion or significant stenosis. Posterior cerebral Arteries: Right: No aneurysm, occlusion or significant stenosis. Left: No aneurysm, occlusion or significant stenosis. Vertebral Arteries: Right: No aneurysm, occlusion or significant stenosis. Left: No aneurysm, occlusion or significant stenosis. Basilar Artery: No aneurysm, occlusion or significant stenosis. CTA Neck W: Common Carotid: Right: No dissection, occlusion or significant stenosis. Left: Minimal plaque at the bulb. No dissection, occlusion or significant stenosis. External Carotid: Right: No dissection, occlusion or significant stenosis. Left: No dissection, occlusion or significant stenosis. Internal Carotid: Right: No dissection, occlusion or significant stenosis. Left: No dissection, occlusion or significant stenosis. Vertebral Artery: Right: No dissection, occlusion or significant stenosis. Left: No dissection, occlusion or significant stenosis. Lung Apices: Right pleural effusion. Large left upper lobe mass. Emphysematous changes. Bones: No acute abnormality. Soft Tissues: Normal. IMPRESSION: 1. Normal CTA examination of the [place]. 2. Unremarkable CT Head. 3. Normal CTA examination of the neck. 4. Report called to Katheryn Kimball of the emergency department. RADIATION DOSE DELIVERED: 1,892.16mGy.cm Total DLP DATA REPOSITORY: All CT scans at this facility are submitted to the National Radiology Data Registry (NRDR) Dose Index Registry (DIR) with the [employer] (ACR). RADIATION OPTIMIZATION: All CT scans at this facility use at least one of these dose optimization te chniques: automated exposure control; mA and/or kV adjustment per patient size (includes targeted exa ms where dose is matched to clinical indication); or iterative reconstruction.
--- NOTE | 2022-12-19 18:34 | NUR.NOTE ---
Nursing Note: pt opted to go home without O2 Rx, wants it to be sent to his home, RT is aware.
== END 2022-12-19 18:37 | disposition home or self-care (01) ==
PROVIDERS: Student in an Organized Health Care Education/Training Program; Emergency Provider Registered Nurse Emergency; PCP Family Medicine
DX: R53.1 Weakness (principal); R06.02 Shortness of breath; J90 Pleural effusion, not elsewhere classified; R09.02 Hypoxemia; J44.9 Chronic obstructive pulmonary disease, unspecified; C34.91 Malignant neoplasm of unspecified part of right bronchus or lung; C34.92 Malignant neoplasm of unspecified part of left bronchus or lung; F17.210 Nicotine dependence, cigarettes, uncomplicated
CPT/HCPCS: 70496; 70498; 71275; 80053; 93005; 94618; 99285; 83735; 83880; 84484; 85025; 85379; 93010; 99284; J3490

== ENCOUNTER 2022-12-30 19:41 | Emergency (ER) | payer MEDICAID, SELFPAY ==
[2022-12-30] VITALS (31 sets, daily range): BP systolic 106–130; BP diastolic 65–84; PULSE 81–109; RESP 15–45; TEMP 36.4; O2SAT 91–96
--- NOTE | 2022-12-30 19:41 | ED.GENADUL_ITS ---
Discharge Plan Disposition Patient Disposition: Home Discharge Details Chief Complaint: GenMedical Clinical Impression: Bilateral lung cancer, Abnormal chest CT, COPD (chronic obstructive pulmonary disease), Chest pain not due to acute coronary syndrome, Shortness of breath, Hypoalbuminemia Primary Care Provider: Chung Perry ED Provider: Brunilda Yu Home Meds and New Rx's Prescriptions: No Action sennosides [senna] 8.6 mg tablet 8.6 mg PO DAILY Qty: 90 3RF fentanyl 25 mcg/hr patch 72 hour 1 patch transdermal Q72H MDD 1 patch Qty: 5 0RF Rx Instructions: for cancer related pain palliative care patient hydroxyzine HCl 25 mg tablet 25 mg PO BID PRN olanzapine [Zyprexa] 10 mg Tablet 20 mg PO HS bupropion HCl 150 mg tablet extended release 24 hr 150 mg PO QAM trazodone 50 mg tablet 50 mg PO HS albuterol sulfate 90 mcg/actuation HFA aerosol inhaler 2 puff inhalation QID PRN (Reason: shortness of breath or wheezing) Qty: 8 0RF Rx Instructions: Use 1 or 2 puffs every 4-6 hours as needed for shortness of breath or wheezing. sertraline 100 mg tablet 150 mg PO DAILY levothyroxine 100 mcg tablet 100 mcg PO DAILY magnesium oxide 400 mg (241.3 mg magnesium) tablet 400 mg PO DAILY gabapentin 300 mg capsule 300 mg PO HS omeprazole 20 mg capsule,delayed release(DR/EC) 20 mg PO DAILY pravastatin 20 mg tablet 20 mg PO HS melatonin 10 mg capsule 10 mg PO HS hydromorphone [Dilaudid] 2 mg tablet 2 mg PO Q6H PRN (Reason: pain) Qty: 10 0RF Discharge Instructions Instructions: Chest Pain (ED), Lung Cancer (DC), COPD (Chronic Obstructive Pulmonary Disease) (ED), Dyspnea (ED), Noncardiac Chest Pain (ED), Shortness of Breath (ED) Additional Instructions: 1. Call your primary care provider on Sunday the for a follow-up appointment and recheck. 2. Return here for any new or worrisome symptoms such as worsening pain, worsening shortness of breath or any concerns. 3. You may take an extra Dilaudid for pain at night to help you sleep. 4. You may increase your oxygen by 1/2 to 1 L as needed for shortness of breath that does not improve with your inhalers. Discharge Data Discharge Physician: Brunilda Yu Medical Decision Making This is an unfortunate 57-year-old male with terminal lung cancer who despite being on palliative care is a full code and would like everything done. He presents today with chest pain which has been bilateral but is currently left- sided it has been constant and he has had it for weeks if not months. He tells me that it is prohibiting him from sleeping. He does take Dilaudid at home but has not taken more than 4 mg before bed. He also does not titrate his oxygen. He has tried his beta agonist without any relief. On exam he has no evidence of a URI. He has not had fevers or chills. He does have a history of pleural effusions and lung cancer. He also appears pale and may have decreased oxygen carrying capacity if he is anemic. He does not sound bronchospastic. He has a slight prolongation of his expiratory phase but I cannot appreciate any wheezing rales or rhonchi. His extremities reveal no peripheral edema no Homans signs or cords. My plan is to obtain blood work to check for leukocytosis and anemia. We will check a comprehensive metabolic panel to assess his renal function electrolytes and liver function. I will obtain a chest x-ray. He may require a chest CT if his D-dimer is positive. I have written for IV fluids and Dilaudid. I have written for type and screen. He tells me he would be amenable to a transfusion if it were necessary. He is not bronchospastic and has tried his inhaler without relief at home so I will hold on ordering a DuoNeb. I do not think this is cardiac in origin. It has been going on for months and he has a normal EKG but we will check a troponin. Differential Diagnosis Differential Diagnosis: Chest wall pain, PE, cardiac ischemia, pneumothorax, pneumonia, pleural eff Medical Records Medical records reviewed: Yes I reviewed the patient's medical records. Imaging Data Radiologic Study: Imaging: X-Ray Radiologist's impression: Stable findings of large masslike opacity within the left upper lung. There is a likely small right-sided pleural effusion and consolidation within the right lower lung. Radiologic Study #2: Imaging: CT Scan Radiologist's impression: V rad impression: 1. No pulmonary emboli. 2. Stable left upper lung mass. Stable subpleural opacity within the right lower lobe. Stable right lower lobe 10 mm nodule. Stable findings of underlying emphysema and fibrosis. Lab Data Lab results reviewed: Yes I reviewed the patient's lab results. Lab results narrative: Please see above. Mild hyponatremia, mild hyperglycemia, mild hypoalbuminemia. Leukocytosis which is chronic. Normal renal function elevated alk phos ECG Data Attestation: I personally reviewed and interpreted this ECG (s) as follows: Prior ECG tracings: available for review HPI General Date/Time Provider Initiated Documentation: 12/30/22 19:41 . Information obtained by: patient, RN notes reviewed and old records reviewed . History of Present Illness with intensity rated at 6. Quality is described as other (Rubbing), and is localized to the chest. and it has been constant. HPI Narrative: Time seen was 8 PM in bed 6. The patient is an unfortunate 57-year-old male with terminal lung CA who is on palliative care but tells me that he wants to be kept alive as long as possible. He presents today with bilateral chest pain. He states that the pain began months ago. It is located on the sides of his chest. He tells me it switches from the right to the left. Currently it is left-sided. He says it is 6-7 out of 10 in severity and feels rubbing. The patient states that he takes 2 mg of Dilaudid at home prescribed by Dr. Pearson his primary care provider. Occasionally he takes 2 at night to help him sleep. His chief complaint today is left-sided chest pain and increased shor tness of breath. The pain is located in the mid axillary line on the left. It is aggravated by deep inspiration. He denies any leg pain or swelling and tells me he has no prior history of thromboembolic disease. The patient does have a history of COPD. He was seen in the emergency department on the first of this month and was discharged home on home O2 which he uses at 2 L/min via nasal cannula. He does use beta agonist and has tried using his pump without any improvement of his symptoms. He denies any new or recent URI symptoms. He denies any fevers, chills. He denies any abdominal pain. He denies any leg pain or swelling. He denies any prior history of blood transfusions. He does endorse weight loss. He tells me he had a chest tube in 2017. In 2019 was 1 he was diagnosed with lung cancer and underwent some radiation. He tells me he could not stand the adverse reaction that he had and has elected not to undergo any further radiation or chemotherapy. This year he was told his cancer is terminal. Related Data Home Medications Medication Instructions Recorded Confirmed bupropion HCl 150 mg 24 hr tablet, 150 mg PO QAM 01/26/22 12/30/22 extended release hydroxyzine HCl 25 mg tablet 25 mg PO BID PRN 01/26/22 12/30/22 olanzapine 10 mg tablet (Zyprexa) 20 mg PO HS 01/26/22 12/30/22 trazodone 50 mg tablet 50 mg PO HS 01/26/22 12/30/22 sennosides 8.6 mg tablet (senna) 8.6 mg PO DAILY Opioid induced 11/07/22 12/30/22 constipation #90 tabs gabapentin 300 mg capsule 300 mg PO HS 11/23/22 12/30/22 levothyroxine 100 mcg tablet 100 mcg PO DAILY 11/23/22 12/30/22 magnesium oxide 400 mg (241.3 mg 400 mg PO DAILY 11/23/22 12/30/22 magnesium) tablet melatonin 10 mg capsule 10 mg PO HS 11/23/22 12/30/22 omeprazole 20 mg capsule,delayed 20 mg PO DAILY 11/23/22 12/30/22 release pravastatin 20 mg tablet 20 mg PO HS 11/23/22 12/30/22 sertraline 100 mg tablet 150 mg PO DAILY 11/23/22 12/30/22 hydromorphone 2 mg tablet 2 mg PO Q6H PRN pain #10 tabs 11/29/22 12/19/22 (Dilaudid) fentanyl 25 mcg/hr transdermal 1 patch transdermal Q72H #5 ea 12/15/22 12/19/22 patch albuterol sulfate 90 mcg/actuation 2 puff inhalation QID PRN 12/19/22 12/30/22 aerosol inhaler shortness of breath or wheezing #8 grams Previous Rx's Medication Instructions Recorded sennosides 8.6 mg tablet (senna) 8.6 mg PO DAILY Opioid induced 11/07/22 constipation #90 tabs hydromorphone 2 mg tablet 2 mg PO Q6H PRN pain #10 tabs 11/29/22 (Dilaudid) fentanyl 25 mcg/hr transdermal 1 patch transdermal Q72H #5 ea 12/15/22 patch albuterol sulfate 90 mcg/actuation 2 puff inhalation QID PRN 12/19/22 aerosol inhaler shortness of breath or wheezing #8 grams Allergies Allergy/AdvReac Type Severity Reaction Status Date / Time Sulfa (Sulfonamide Allergy Severe Swelling/Ed Unverified 12/19/22 14:20 Antibiotics) jostin General Stated Complaint: Chest/Rib ABA: 3 Review of Systems Constitutional Constitutional: Denies chills, Reports difficulty sleeping, Reports fatigue, Denies fever(s), Denies headache(s), Reports lethargy and Reports weight loss Eyes Eyes: Denies blurry vision ENT Ears, Nose, Mouth, and Throat: Denies otalgia, Denies headache(s), Denies nasal congestion, Denies nasal discharge and Denies neck pain Cardiovascular Cardiovascular: Reports as per HPI, Denies claudication, Reports dyspnea and Reports dyspnea on exertion Respiratory Respiratory: Reports dyspnea and Reports dyspnea on exertion Comments: No change in sputum color Gastrointestinal Comments: He denies any abdominal pain, blood in the stools. Dark stools, nausea vomiting or diarrhea Genitourinary Comments: No urinary symptoms Musculoskeletal Musculoskeletal: Denies neck pain Comments: No leg pain or swelling. He does have a history of ORIF of the right ankle/tib- fib Neurologic Neurologic: Denies headache(s) and Denies paresthesias Psychiatric Comments: The patient is not suicidal. He wants everything done to keep him alive as per HPI. He does have a history of depression and suicidal ideation Endocrine Endocrine: Reports fatigue Hematologic/Lymphatic Hematologic/Lymphatic: Denies easy bleeding Comments: The patient denies any prior history of anemia. He tells me he has never had a blood transfusion PFSH All Active Problems (Updated 12/30/22 @ 23:24 by Brunilda Yu MD) Bilateral lung cancer (Acute) Hypoxia (Acute) Pleural effusion on right (Acute) Bilateral lung cancer (Acute) COPD (chronic obstructive pulmonary disease) (Chronic) Chest pain not due to acute coronary syndrome (Acute) Shortness of breath (Acute) Hypoalbuminemia (Acute) Hypoxia (Acute) Chest pain (Acute) Cancer related pain (Acute) Advanced care planning/counseling discussion (Acute) Palliative care patient (Acute) Bilateral lung cancer (Acute) Adenocarcinoma from 2020 biopsy COVID (Acute) Suicidal ideation (Acute) Depression (Chronic) Deliberate self-cutting (Acute) Other social stressor (Acute) Agitation (Acute) Hemoptysis (Acute) Thumb injury (Acute) Abnormal chest CT (Acute) GERD (gastroesophageal reflux disease) (Chronic) Hypercholesterolemia (Chronic) Suicidal thoughts (Acute) Leukocytosis (Chronic) Tobacco abuse (Chronic) Suicidal ideation (Acute) Anxiety (Chronic) Depression (Chronic) COPD (chronic obstructive pulmonary disease) (Chronic) Depression (Chronic) Bipolar disorder (Chronic) Depression with suicidal ideation (Acute) Medical History Bipolar disorder Depressed Shingles Stress Suicidal ideations Suicidal thoughts Traumatic pneumothorax 2017, chest tube x2 Surgical History History of ankle surgery S/P thoracostomy tube placement Social History Smoking/Tobacco Use Status: Current every day Tobacco Type: cigarettes Smoking risk assessment performed?: Yes Alcohol Intake: never Drug use: Daily Substance use type: marijuana Details: Pt reports cannabis use for relaxation, pain management Housing: apartment Current gender identity: male Do you feel safe at home: No (does not feel safe with self) Do you feel safe in your relationship?: Yes Additional Social history: Lives in a private apartment. Has [facility] case management Exam Narrative Exam Narrative: The patient is a well-developed thin male who is in no acute distress. He is able to speak in full sentences. He is lying comfortably on the stretcher with his nasal cannula in place. He is showing me pictures of his pet pug on his phone. Initially he was slightly tachycardic. His current heart rate is 93 blood pressure is 108/70. He is afebrile and his sat on 2 L is 96%. Const General: cooperative, healthy appearing, comfortable, no acute distress, well developed, well groomed and well hydrated Orientation: alert, awake and oriented x3 HENMT Head: normal to inspection, normocephalic and atraumatic Ears: hearing grossly normal bilaterally and external ears normal General nose exam: external nose normal, nares normal and no nasal discharge Face and sinus: normal facial exam, sinuses nontender and face symmetric Mouth: oral mucosae normal, lip normal, tongue normal, oropharynx normal, moist mucous membranes and other (Normal phonation. The patient is handling secretions.) Throat: posterior oropharynx normal and uvula midline Eyes General: appearance normal, both eyes and all related structures Eyelids: eyelids normal Conjunctivae: conjunctival abnormality (Conjunctiva are bilaterally pale) Sclera: sclerae normal Cornea: corneas normal Pupils: PERRL EOM: EOM intact bilaterally and No nystagmus Neck Neck: normal visual inspection, full ROM, no lymphadenopathy, no meningeal signs, trachea midline and supple Lymphatic: no lymphadenopathy noted Chest Chest: normal inspection of the chest Resp Effort & Inspection: normal respiratory effort, able to speak in complete sentences, no audible wheezes, no nasal flaring, no respiratory distress, no retractions, no stridor, not tachypneic, no tracheal deviation, no use of accessory muscles and other (Normal inspiratory to expiratory ratio.) Auscultation: clear to auscultation bilaterally, no rales, no rhonchi, no wheezes and no rubs Tactile Fremitus: tactile fremitus absent Cardio Jugular venous pressure: no JVD Palpation: normal PMI Rate: regular rate Rhythm: regular rhythm Heart Sounds: S1 normal, S2 normal, no gallops, no murmurs and no rubs GI Inspection: normal to inspection and non-distended Palpation: soft, no hepatosplenomegaly, no guarding and nontender Percussion: normal to percussion Auscultation: normal bowel sounds General: No CVA tenderness Back/Spine/Pelvis Back: no CVA tenderness and No back tenderness Cervical Spine: normal cervical lordosis, cervical ROM normal, No cervical muscu lar tenderness, No pain with cervical ROM, No cervical spinal tenderness and No step off deformity Thoracic/Lumbar Spine: thoracic and lumbar spine normal to inspection, No tho racic spinal tenderness and No lumbar spinal tenderness Pelvis: no pain with anterior-posterior compression and no pain with lateral compression Skin General skin exam: no rashes or lesions noted, turgor normal, no petechiae and no purpura Lesions: no lesions Rashes: no rashes Trauma: no lacerations or abrasions Other: His skin is pale for ethnicity. Neuro General: patient alert, patient awake, patient oriented x3, moves all extremities, no meningeal signs, no focal motor deficits and CN's II-XI intact bilaterally Cranial Nerves: CN's II-XI intact bilaterally, PERRL, accommodation normal, EOM intact bilaterally, no nystagmus, facial strength normal, tongue midline, hearing normal and no nystagmus Cognition: normal cognition Speech: speech normal Gait: normal gait Motor: muscle tone normal throughout and strength 5/5 throughout Sensory Exam: no sensory deficits noted Extrem General: normal to inspection, full ROM, capillary refill normal, no clubbing, cyanosis or edema and no calf tenderness Other: There is well-healed surgical scar of the right ankle. There is no asymmetric swelling tenderness, Homans signs or cords. He does have onychomycosis of his toenails. Distal pulses are intact. Cap refills less than 2 seconds. Psych Appearance: grossly normal Affect: normal affect Attitude: cooperative Thought Process: normal Thought Content: normal Insight: insight good Judgment: judgment good Other: The patient appears to have capacity make medical decisions. Course Reevaluation(s) Time: 21:47 Reevaluation: I have reviewed the patient's lab work and chest x-ray. He does have an elevated D-dimer. I will order a CTA of the chest to rule out PE Time: 21:51 Reevaluation #2: I have updated the patient on the elevated D-dimer. He is requesting more pain medication and juice. I will order more Dilaudid Time: 23:15 Additional Reevaluation(s): I have discussed the CT results with the patient. He feels more comfortable and is ready for discharge. I have advised him he may take an extra Dilaudid at home and titrate his oxygen if he feels short of breath. I have advised him to return here if he develops any new or worrisome symptoms, such as fever, chills, worsening shortness of breath or any concerns. I have written an order increasing his Dilaudid and oxygen as needed Lab/Test Results Lab/Test Results: Mild hyponatremia, mild hyperglycemia, elevated alk phos which could be consistent with bone mets. Hypoalbuminemia. Mild leukocytosis which appears chronic when compared to previous lab work. No significant anemia though his indices are all low. Normal renal function. Elevated D-dimer. Normal BNP and troponin Critical Care Time Critical Care Time Total Critical Care Time: 48 Attestation: This includes time at the bedside, review of labs EKG and radiographs. Com parison of previous CT scans and review of old records and old EKG
--- NOTE | 2022-12-30 19:45 | RT.EKG_ITS ---
APPROVED REPORT Exam: Resting ECG Reason for Exam: chest pain Patient Location: E HR:97 bpm ECG Measurements Heart Rate 97 AXIS OR 137 P 46 QRSd 89 QRS 9 QT 350 T 57 QTc 446 Conclusion Sinus rhythm...normal P axis, V-rate 60- 99 NSR, NL axis, NL intervals. No significant changes from previous. No STEMI
--- NOTE | 2022-12-30 20:15 | DI.RAD_ITS ---
Exam(s) XR CHEST 2V PA LATERAL EXAM: XR CHEST 2V PA LATERAL CLINICAL HISTORY: Chest pain SOB TECHNIQUE: 2D digital imaging was performed. COMPARISON: CR XR CHEST 2V PA LATERAL from 12/12/2022 FINDINGS: Left upper lobe mass again noted Underlying emphysematous chronic fibrotic changes. Right medial basilar infiltrate. Similar to prio r. Small right pleural effusion. IMPRESSION: Similar appearance of right basilar infiltrate and left upper lobe mass. No new abnormalities identi fied. DATA REPOSITORY: RADIATION DOSE DELIVERED:
[2022-12-30 20:33] LABS: ALT 17 U/L (16-63); AST 18 U/L (15-37); Alkaline Phosphatase 152 U/L (46-116); Anion Gap 11.6 mmol/L (3-11); BUN 18 mg/dL (7-18); Bilirubin, Total 0.3 mg/dL (0.2-1.0); CO2 23.4 mmol/L (21.0-32.0); CREATININE 0.9 mg/dL (0.70-1.30); Calcium 9.1 mg/dL (8.5-10.1); Chloride 100 mmol/L (98-107); Glucose 160 mg/dL (74-106); Magnesium 1.9 mg/dL (1.8-2.4); Sodium 135 mmol/L (136-145); Total Protein 8.1 g/dL (6.4-8.2); Troponin I < 50 ng/L (<or=60)
[2022-12-30] MEDS: HYDROmorphone 2 MG/ML SYR 1 MG IVP ×2 (20:37→22:01)
[2022-12-30 20:45] LABS: Abs Immature Grans 0.06 10^3/uL (0.0-0.06); Absolute Basophil Count 0.07 10^3/uL (0.0-0.2); Absolute Eosinophil Count 1.69 10^3/uL (0.0-0.7); Absolute Lymphocyte Count 1.52 10^3/uL (1.2-3.4); Absolute Monocyte Count 0.51 10^3/uL (0.1-0.8); Absolute Neutrophil Count 9.81 10^3/uL (1.2-6.7); Basophils % 0.5; Eosinophils % 12.4; HCT 41.6 % (40.0-50.0); HGB 13.2 g/dL (13.5-17.5); Immature Grans % 0.4; Lymphocytes % 11.1; MCH 23.4 pg (27.0-33.0); MCHC 31.7 % (32.0-36.0); MCV 74 fL (80-95); MPV 10.3 fL (8.0-11.0); Monocytes % 3.7; Neutrophils % 71.9; Platelet Count 456 10^3/uL (130-400); RBC 5.65 10^6/uL (4.36-5.78); RDW 14.9 % (11.8-14.1); RDW-SD 39.3 fL; WBC 13.65 10^3/uL (4.4-10.8)
[2022-12-30 20:46] LABS: Diff Comment Agrees w/ Instrument; Microcytosis 1+
[2022-12-30 20:52] LABS: Prothrombin Time 10.4 sec (9.3-11.0)
[2022-12-30 20:59] LABS: NT-proBNP 133 pg/mL (<300)
[2022-12-30 21:10] LABS: D-Dimer 3044 ng/mlFEU (<500)
--- NOTE | 2022-12-30 21:41 | DI.VRAD_ITS ---
PROCEDURE INFORMATION: Exam: XR Chest Exam date and time: 12/30/2022 9:20 PM Age: 57 years old Clinical indication: Shortness of breath TECHNIQUE: Imaging protocol: Radiologic exam of the chest. Views: 2 views. COMPARISON: CR XR CHEST 2V PA LATERAL 12/12/2022 4:24 PM FINDINGS: Lungs: Large masslike opacity within left upper lung, approximately 7.7 x 4.8 cm, seen on the prior studies. Stable bilateral interstitial pattern of chronic changes. Right lower lung opacity, cannot rule out an infiltrate, seen on the prior chest CT. Pleural spaces: Small right-sided pleural effusion. No large pleural effusion identified on the left. Heart/Mediastinum: Unremarkable. No cardiomegaly. Bones/joints: Unremarkable. IMPRESSION: Stable findings of large masslike opacity within left upper lung. There is a likely small right-sided pleural effusion and consolidation within right lower lung. Dictated and Authenticated by: Randy Alvarado MD. Ordering:LALA Worley MD
--- NOTE | 2022-12-30 21:45 | DI.CT_ITS ---
Exam(s) CT CHEST PE CTA EXAM: CT CHEST PE CTA CLINICAL HISTORY: Lung ca, CP, elev. D dimer. TECHNIQUE: Imaging Protocol: Axial CT angiography was performed with multi-slice acquisition and mu lti-planar reconstructions as well as axial, coronal and sagittal MIP reconstructions. CONTRAST MATERIAL: Intravenous: Omnipaque 350 Contrast volume:100 ml COMPARISON: CT CT CHEST PE CTA from 12/19/2022 CR,XR XR CHEST 2V PA LATERAL from 12/30/2022 FINDINGS: Pulmonary Arteries: No evidence of filling defect to suggest pulmonary emboli. Tracheobronchial tree: Patent where visualized. Mediastinum and Kimberly: No dominant adenopathy or fluid collection. Pulmonary parenchyma: Stable appearance of left upper lobe mass. Stable appearance of right lower lo be spiculated nodule. Severe underlying emphysematous changes. Stable right lower lobe area densi ty in the medial right lower lobe, mass versus consolidation or atelectasis. Pleura: Small right pleural effusion. Decreased from prior. No pneumothorax. Heart: The heart is not dilated. No coronary artery calcifications are seen. Aorta: Thoracic aorta non-dilated. No aneurysm. No dissection. Upper abdomen: Unremarkable. Bones: Old rib fractures. Scoliosis again noted. Tubes, Catheters, and Lines: None IMPRESSION: No evidence of pulmonary embolism. Stable left upper lobe mass. Stable right lower lobe mass versus atelectasis RADIATION DOSE DELIVERED: Total DLP DATA REPOSITORY: All CT scans at this facility are submitted to the National Radiology Data Registry (NRDR) Dose Index Registry (DIR) with the [employer] (A[employer]). RADIATION OPTIMIZATION: All CT scans at this facility use at least one of these dose optimization te chniques: automated exposure control; mA and/or kV adjustment per patient size (includes targeted exa ms where dose is matched to clinical indication); or iterative reconstruction.
[2022-12-30] MEDS: Normal Saline 1,000 ML 1000 ML IV (22:02)
[2022-12-30] MEDS: Omnipaque 350 MG/ML 100 ML BTL IJ (22:17)
[2022-12-30] MEDS: Normal Saline - Diluent 50 ML VIAL IJ (22:18)
--- NOTE | 2022-12-30 22:49 | DI.VRAD_ITS ---
PROCEDURE INFORMATION: Exam: CTA Chest With Contrast Exam date and time: 12/30/2022 10:23 PM Age: 57 years old Clinical indication: Shortness of breath TECHNIQUE: Imaging protocol: Computed tomographic angiography of the chest with contrast. Exam focused on the arteries. 3D rendering (Not supervised by radiologist): MIP and/or 3D reconstructed images were created by the technologist. Contrast material: OMNIPAQUE 350; Contrast volume: 100 ml; Contrast route: INTRAVENOUS (IV); COMPARISON: CT CHEST PE CTA 12/19/2022 4:33 PM FINDINGS: Pulmonary arteries: No pulmonary emboli. Aorta: No aortic aneurysm. No aortic dissection. Lungs: Left upper lobe mass, 4.3 x 6.5 centimetres, no significant change. Bilateral centrilobular and paraseptal emphysema. Right lower lobe spiculated 10 mm nodule, series 5, image 301, seen on the prior study. Right lower lobe consolidation, atelectasis and/or mass, seen on the prior study. Left lower lobe subpleural 7 mm nodule, series 9, image 59. Pleural spaces: Small right-sided pleural effusion. Heart: No cardiomegaly. No pericardial effusion. Lymph nodes: Unremarkable. No enlarged lymph nodes. Bones/joints: Deformity of old fracture of left 9th rib. No acute fractures identified. No aggressive osseous lesions identified. Soft tissues: Unremarkable. IMPRESSION: 1. No pulmonary emboli. 2. Stable left upper lung mass. Stable subpleural opacity within right lower lobe. Stable right lower lobe 10 mm nodule. Stable findings of underlying emphysema and fibrosis. Dictated and Authenticated by: Randy Alvarado MD. Ordering:LALA Worley MD
--- NOTE | 2023-01-03 12:31 | NUR.NOTE ---
IN CHART TO DELET DUPLICATED ORDERNursing Note:
== END 2022-12-30 23:33 | disposition home or self-care (01) ==
PROVIDERS: Emergency Provider Emergency Medicine Emergency Medical Services; PCP Family Medicine
DX: C34.91 Malignant neoplasm of unspecified part of right bronchus or lung (principal); C34.92 Malignant neoplasm of unspecified part of left bronchus or lung; R07.9 Chest pain, unspecified; R06.02 Shortness of breath; J44.9 Chronic obstructive pulmonary disease, unspecified; E88.09 Other disorders of plasma-protein metabolism, not elsewhere classified; R91.8 Other nonspecific abnormal finding of lung field; Z99.81 Dependence on supplemental oxygen; R79.89 Other specified abnormal findings of blood chemistry
CPT/HCPCS: 71275; 80053; 86850; 86900; 86901; 93005; 96361; 96374; 96375; 99291; 71046; 83735; 83880; 84484; 85025; 85379; 85610; 85730; 93010; J1170; J3490

== ENCOUNTER 2023-02-27 12:12 | Emergency (ER) | payer MEDICAID, SELFPAY ==
[2023-02-27] VITALS (24 sets, daily range): BP systolic 98–114; BP diastolic 69–82; PULSE 79–107; RESP 16–18; TEMP 36.3; O2SAT 95–100
--- NOTE | 2023-02-27 12:21 | W.ED.GENAD ---
Discharge Plan Disposition Patient Disposition: Home Discharge Details Clinical Impression: Hemoptysis Primary Care Provider: Chung Perry ED Provider: Clementina Tovar Home Meds and New Rx's Prescriptions: No Action sennosides [senna] 8.6 mg tablet 8.6 mg PO DAILY Qty: 90 3RF fentanyl 25 mcg/hr patch 72 hour 1 patch transdermal Q72H MDD 37 mcg/hr Qty: 5 0RF Patient Comments: not using this dose anymore 02/27/23 Rx Instructions: place 25 mcg/hr patch with 12 mcg/hr patch for total of 37 mcg/hr for cancer related pain palliative care patient fentanyl 12 mcg/hr patch 72 hour 1 patch transdermal Q72H MDD 37 mcg/hr Qty: 5 0RF Patient Comments: not using this dose anymore 02/27/23 fentanyl 50 mcg/hr patch 72 hour 1 patch transdermal Q72H MDD 50mcg/hr Qty: 10 0RF hydromorphone [Dilaudid] 2 mg tablet 2 mg PO Q6H MDD 8 mg PRN (Reason: pain) Qty: 20 0RF hydroxyzine HCl 25 mg tablet 25 mg PO BID PRN olanzapine [Zyprexa] 10 mg Tablet 20 mg PO HS bupropion HCl 150 mg tablet extended release 24 hr 150 mg PO QAM trazodone 50 mg tablet 50 mg PO HS albuterol sulfate 90 mcg/actuation HFA aerosol inhaler 2 puff inhalation QID PRN (Reason: shortness of breath or wheezing) Qty: 8 0RF Rx Instructions: Use 1 or 2 puffs every 4-6 hours as needed for shortness of breath or wheezing. sertraline 100 mg tablet 150 mg PO DAILY levothyroxine 100 mcg tablet 100 mcg PO DAILY magnesium oxide 400 mg (241.3 mg magnesium) tablet 400 mg PO DAILY Patient Comments: states not taking 02/27/23 gabapentin 300 mg capsule 300 mg PO HS omeprazole 20 mg capsule,delayed release(DR/EC) 20 mg PO DAILY pravastatin 20 mg tablet 20 mg PO HS melatonin 10 mg capsule 10 mg PO HS Discharge Instructions Additional Instructions: Return to the emergency department with worsening shortness of breath, difficulty breathing or large volume of hemoptysis. Follow-up with your oncology team. Medical Decision Making Emergent evaluation of hemoptysis. Initial differential includes worsening malignancy, bronchitis, less likely GI bleeding. Patient is well-appearing, in no acute distress. He is not having active hemoptysis at this time. I did see of photo an episode he had at home which was a very small volume that was mostly mucus. He is noted to be slightly tachycardic and blood pressure is low. He reports that he is blood pressure is typically low. Initial plan will be for CT imaging to evaluate for acute source of bleeding, will check lab work to evaluate hemoglobin. We will continue to monitor for additional and worsening bleeding. 1500: Lab work reviewed, no clinically significant abnormalities. Blood counts stable. Discussed CT scan with radiologist, enlarged tumor burden with increased lesions. However no pulmonary embolism, no signs of other acute etiologies. Patient has not had any additional hemoptysis. He maintains stable respiratory effort and normal oxygen saturation. At this time there is no indication for further emergent work-up or hospitalization. He is stable for discharge home. Recommend that he continue to follow-up with palliative care and his oncology team as needed. Medical Records Medical records reviewed: Yes I reviewed the patient's medical records. Medical records narrative: Was seen by palliative care 1 month ago. Metastatic lung cancer not amenable to treatment. 6-month prognosis. Remains full code HPI General Date/Time Provider Initiated Documentation: 02/27/23 12:19. Limitations to Documentation: no limitations. Information obtained by: patient. HPI Narrative: 57-year-old gentleman with past medical history of metastatic lung cancer presents for evaluation of hemoptysis. He reports that earlier this morning he started spitting up blood. Blood is pink-tinged and filled with mucus. Is associated with a slight cough. No fever. No chest pain or shortness of breath. No large-volume bleeding. No bright red blood. He reports that this is happened before and he had a bronchoscopy procedure at [facility]. He is not on any therapy at this time for his malignancy and is followed by palliative care. Related Data Home Medications Medication Instructions Recorded Confirmed bupropion HCl 150 mg 24 hr tablet, 150 mg PO QAM 01/26/22 02/27/23 extended release hydroxyzine HCl 25 mg tablet 25 mg PO BID PRN 01/26/22 02/27/23 olanzapine 10 mg tablet (Zyprexa) 20 mg PO HS 01/26/22 02/27/23 trazodone 50 mg tablet 50 mg PO HS 01/26/22 02/27/23 sennosides 8.6 mg tablet (senna) 8.6 mg PO DAILY Opioid induced 11/07/22 02/27/23 constipation #90 tabs gabapentin 300 mg capsule 300 mg PO HS 11/23/22 02/27/23 levothyroxine 100 mcg tablet 100 mcg PO DAILY 11/23/22 02/27/23 magnesium oxide 400 mg (241.3 mg 400 mg PO DAILY 11/23/22 01/19/23 magnesium) tablet melatonin 10 mg capsule 10 mg PO HS 11/23/22 02/27/23 omeprazole 20 mg capsule,delayed 20 mg PO DAILY 11/23/22 02/27/23 release pravastatin 20 mg tablet 20 mg PO HS 11/23/22 02/27/23 sertraline 100 mg tablet 150 mg PO DAILY 11/23/22 02/27/23 albuterol sulfate 90 mcg/actuation 2 puff inhalation QID PRN 12/19/22 02/27/23 aerosol inhaler shortness of breath or wheezing #8 grams fentanyl 12 mcg/hr transdermal 1 patch transdermal Q72H #5 ea 01/19/23 01/19/23 patch fentanyl 25 mcg/hr transdermal 1 patch transdermal Q72H #5 ea 01/19/23 01/19/23 patch fentanyl 50 mcg/hr transdermal 1 patch transdermal Q72H #10 ea 02/21/23 02/27/23 patch hydromorphone 2 mg tablet 2 mg PO Q6H PRN pain #20 tabs 02/26/23 02/27/23 (Dilaudid) Previous Rx's Medication Instructions Recorded sennosides 8.6 mg tablet (senna) 8.6 mg PO DAILY Opioid induced 11/07/22 constipation #90 tabs albuterol sulfate 90 mcg/actuation 2 puff inhalation QID PRN 12/19/22 aerosol inhaler shortness of breath or wheezing #8 grams fentanyl 12 mcg/hr transdermal 1 patch transdermal Q72H #5 ea 01/19/23 patch fentanyl 25 mcg/hr transdermal 1 patch transdermal Q72H #5 ea 01/19/23 patch fentanyl 50 mcg/hr transdermal 1 patch transdermal Q72H #10 ea 02/21/23 patch hydromorphone 2 mg tablet 2 mg PO Q6H PRN pain #20 tabs 02/26/23 (Dilaudid) Allergies Allergy/AdvReac Type Severity Reaction Status Date / Time Sulfa (Sulfonamide Allergy Severe Swelling/Ed Unverified 02/27/23 12:26 Antibiotics) jostin General ABA: 3 PFSH All Active Problems (Updated 02/27/23 @ 14:59 by Clementina Tovar MD) Hemoptysis (Acute) Hypoxia (Acute) Cancer related pain (Acute) Advanced care planning/counseling discussion (Acute) Palliative care patient (Acute) Bilateral lung cancer (Acute) Adenocarcinoma from 2020 biopsy COVID (Acute) Suicidal ideation (Acute) Depression (Chronic) Deliberate self-cutting (Acute) Other social stressor (Acute) Agitation (Acute) Hemoptysis (Acute) Thumb injury (Acute) Abnormal chest CT (Acute) GERD (gastroesophageal reflux disease) (Chronic) Hypercholesterolemia (Chronic) Suicidal thoughts (Acute) Leukocytosis (Chronic) Tobacco abuse (Chronic) Suicidal ideation (Acute) Anxiety (Chronic) Depression (Chronic) COPD (chronic obstructive pulmonary disease) (Chronic) Depression (Chronic) Bipolar disorder (Chronic) Depression with suicidal ideation (Acute) Medical History Bipolar disorder Depressed Shingles Stress Suicidal ideations Suicidal thoughts Traumatic pneumothorax 2017, chest tube x2 Surgical History History of ankle surgery S/P thoracostomy tube placement Social History Smoking/Tobacco Use Status: Current every day Tobacco Type: cigarettes Smoking risk assessment performed?: Yes Alcohol Intake: never Drug use: Daily Substance use type: marijuana Details: Pt reports cannabis use for relaxation, pain management Housing: apartment Current gender identity: male Do you feel safe at home: No (does not feel safe with self) Do you feel safe in your relationship?: Yes Additional Social history: Lives in a private apartment. Has [facility] case management Exam Narrative Exam Narrative: Review of Systems: All systems reviewed & are unremarkable except as noted in HPI and below Exam: Const: well appearing, thin, no acute distress HEENT: NACT / Eyes: PERRL, no conjunctival injection, and symmetrical lids / EARS Atraumatic external nose and ears / MOUTH Moist MM / NECK: Symmetric, trachea midline, No thyromegaly / THROAT oropharynx clear CVS: RRR, No murmurs or gallops. Peripheral pulses 2+ and equal in all extremities. Brisk capillary refill in all extremities. RESP: Unlabored respiratory effort, no hypoxia, diminished breath sounds bilaterally No wheezes rales or rhonchi GI: Soft, Nontender/Nondistended, No hepatosplenomegaly. No guarding or rebound. MSK: Extremities w/o deformity or TTP, No cyanosis , full range of motion Skin: Warm, Dry. No rashes or lesions. Neuro: digital sales executive II-XII grossly intact. Sensation grossly intact, no focal neurologic deficits. Psych: (AAO) x3. Appropriate mood and affect
--- NOTE | 2023-02-27 12:30 | DI.CT_ITS ---
Exam(s) CT CHEST PE CTA EXAM: CT CHEST PE CTA CLINICAL HISTORY: HEMOPTYSIS. TECHNIQUE: Imaging Protocol: Axial CT angiography was performed with multi-slice acquisition and mu lti-planar and/or 3D reconstructions. CONTRAST MATERIAL: Intravenous: Omnipaque 350 contrast volume:65 mL COMPARISON: CT CT CHEST PE CTA from 12/30/2022 FINDINGS: Tracheobronchial tree: Patent where visualized. Pulmonary parenchyma: Moderate centrilobular and paraseptal emphysematous changes are present. There has been interval increase in size of the left upper lobe mass which now measures 7.5 x 6.5 cm. Thi s compares to 4.9 x 4.9 cm. It causes obstruction of right upper lobe vessels and bronchi. There is also been increase in size of the soft tissue masses in the right middle lobe. The larger measures 1.4 x 1.5 cm. Previously this measured 1 x 0.6 cm. The consolidation in the medial aspect of the ri ght lower lobe is unchanged. Pulmonary Arteries: No evidence of filling defect to suggest pulmonary emboli. Mediastinum and Kimberly: Stable mediastinal lymph nodes. The esophagus is unremarkable. Visualized thyroid gland: Not visualized. Pleura: There is a small right pleural effusion. No left pleural effusion. No pneumothorax. Heart: The heart is not dilated. No coronary artery calcifications are seen. No pericardial effusion. Aorta: Thoracic aorta non-dilated. No evidence of dissection. Atherosclerosis. Upper abdomen: Unremarkable. Soft tissues: Unremarkable. Bones: Within normal limits for the patient's age. IMPRESSION: 1. No evidence of pulmonary embolism, thoracic aortic dissection or aneurysm. 2. Interval increase in size of the left upper lobe mass and the 2 right middle lobe nodules since 04/2023. 3. Findings were discussed with Dr. Tovar at 2:54 p.m. on 02/27/2023. RADIATION DOSE DELIVERED: Total DLP DATA REPOSITORY: All CT scans at this facility are submitted to the National Radiology Data Registry (NRDR) Dose Index Registry (DIR) with the [employer] (ACR). RADIATION OPTIMIZATION: All CT scans at this facility use at least one of these dose optimization te chniques: automated exposure control; mA and/or kV adjustment per patient size (includes targeted exa ms where dose is matched to clinical indication); or iterative reconstruction.
[2023-02-27 12:46] LABS: Abs Immature Grans 0.05 10^3/uL (0.0-0.06); Absolute Basophil Count 0.08 10^3/uL (0.0-0.2); Absolute Eosinophil Count 0.44 10^3/uL (0.0-0.7); Absolute Lymphocyte Count 1.66 10^3/uL (1.2-3.4); Absolute Monocyte Count 0.67 10^3/uL (0.1-0.8); Absolute Neutrophil Count 7.55 10^3/uL (1.2-6.7); Basophils % 0.8; Eosinophils % 4.2; HCT 39.3 % (40.0-50.0); HGB 12.3 g/dL (13.5-17.5); Immature Grans % 0.5; Lymphocytes % 15.9; MCHC 31.3 % (32.0-36.0); MCV 70 fL (80-95); MPV 10.2 fL (8.0-11.0); Monocytes % 6.4; Neutrophils % 72.2; Platelet Count 426 10^3/uL (130-400); RBC 5.58 10^6/uL (4.36-5.78); RDW 16.5 % (11.8-14.1); RDW-SD 41.3 fL; WBC 10.45 10^3/uL (4.4-10.8)
[2023-02-27 13:08] LABS: Prothrombin Time 10.5 sec (9.1-11.1)
[2023-02-27 13:09] LABS: Diff Comment RBC Morph Reviewed; Microcytosis 1+
[2023-02-27 13:24] LABS: ALT 16 U/L (16-63); AST 20 U/L (15-37); Albumin 3.1 g/dL (3.4-5.0); Alkaline Phosphatase 163 U/L (46-116); Anion Gap 10.5 mmol/L (3-11); BUN 19 mg/dL (7-18); Bilirubin, Total 0.1 mg/dL (0.2-1.0); CO2 25.5 mmol/L (21.0-32.0); CREATININE 0.8 mg/dL (0.70-1.30); Calcium 9.4 mg/dL (8.5-10.1); Chloride 100 mmol/L (98-107); Estimated GFR 102.58 (mL/min/1.73m2); Glucose 122 mg/dL (74-106); Potassium 4.2 mmol/L (3.5-5.1); Sodium 136 mmol/L (136-145); Total Protein 8.4 g/dL (6.4-8.2)
[2023-02-27] MEDS: Normal Saline - Diluent 50 ML VIAL IJ (14:20)
[2023-02-27] MEDS: Omnipaque 350 MG/ML 100 ML BTL IJ (14:20)
[2023-02-27] MEDS: Normal Saline Flush 10 ML SYR IVP (14:21)
== END 2023-02-27 15:11 | disposition home or self-care (01) ==
PROVIDERS: Emergency Provider Emergency Medicine; PCP Family Medicine
DX: R04.2 Hemoptysis (principal); R06.02 Shortness of breath; C34.12 Malignant neoplasm of upper lobe, left bronchus or lung; C79.9 Secondary malignant neoplasm of unspecified site; F17.210 Nicotine dependence, cigarettes, uncomplicated; R91.8 Other nonspecific abnormal finding of lung field
CPT/HCPCS: 36415; 71275; 80053; 99285; 85025; 85610; 99284; J3490

== ENCOUNTER 2023-03-02 10:58 | Emergency (ER) | payer MEDICAID, SELFPAY ==
[2023-03-02 11:13] VITALS: BP 120/84; PULSE 111; RESP 17; TEMP 36.7; O2SAT 90
== END 2023-03-02 12:45 | disposition home or self-care (01) ==
PROVIDERS: Emergency Provider Student in an Organized Health Care Education/Training Program; PCP Family Medicine
DX: Z53.21 Procedure and treatment not carried out due to patient leaving prior to being seen by health care provider (principal)

== ENCOUNTER 2023-03-25 17:11 | Emergency (ER) | payer MEDICAID, SELFPAY ==
[2023-03-25 17:14] VITALS: BP 120/75; PULSE 112; RESP 18; TEMP 36.8; O2SAT 96
--- NOTE | 2023-03-25 17:53 | W.ED.GENAD ---
Discharge Plan Disposition Patient Disposition: Home Discharge Details Clinical Impression: Depression Primary Care Provider: Chung Perry ED Provider: Emilie Carrillo Home Meds and New Rx's Prescriptions: Continued sennosides [senna] 8.6 mg tablet 8.6 mg PO DAILY Qty: 90 3RF fentanyl 50 mcg/hr patch 72 hour 1 patch transdermal Q72H MDD 50mcg/hr Qty: 10 0RF hydromorphone [Dilaudid] 2 mg tablet 2 mg PO Q6H MDD 8 mg PRN (Reason: pain) Qty: 20 0RF hydroxyzine HCl 25 mg tablet 25 mg PO BID PRN olanzapine [Zyprexa] 10 mg Tablet 20 mg PO HS bupropion HCl 150 mg tablet extended release 24 hr 150 mg PO QAM trazodone 50 mg tablet 50 mg PO HS albuterol sulfate 90 mcg/actuation HFA aerosol inhaler 2 puff inhalation QID PRN (Reason: shortness of breath or wheezing) Qty: 8 0RF Rx Instructions: Use 1 or 2 puffs every 4-6 hours as needed for shortness of breath or wheezing. sertraline 100 mg tablet 150 mg PO DAILY levothyroxine 100 mcg tablet 100 mcg PO DAILY magnesium oxide 400 mg (241.3 mg magnesium) tablet 400 mg PO DAILY Patient Comments: states not taking 02/27/23 gabapentin 300 mg capsule 300 mg PO HS omeprazole 20 mg capsule,delayed release(DR/EC) 20 mg PO DAILY pravastatin 20 mg tablet 20 mg PO HS melatonin 10 mg capsule 10 mg PO HS Discharge Instructions Instructions: Depression (ED) Additional Instructions: You will be contacted by [facility] human services tomorrow for care bed placement Continue to keep yourself hydrated with milk and foods that you are able to tolerate Talk to palliative care and see if they might be willing to refill your pain medication Return earlier should you have new or worsening complaints Referrals: Rizwana Locke NP [NURSE PRACTITIONER] - Chung Perry [Primary Care Provider] - Medical Decision Making History of this 57-year-old male patient psych history 49-year-old male presenting with report of depression and anxiety, history of terminal lung cancer and recently ran out of his fentanyl medication and saw family and started thinking about how much pain he was in and how he was not going to see his family likely ever again. He lives alone and was quite sad which is why he presents to the emergency department. He did not endorse suicidality or auditory visual hallucinations, he is alert, oriented, very pleasant in demeanor, interactive, I did talk to patient to [facility],, they will likely have a care bed for the patient tomorrow, he feels comfortable being discharged home at this time and does not endorse current suicidality He is ambulatory with steady gait, he has had 3 glasses of milk in the emergency department, he will be discharged home in stable condition with stable vitals for patient when reviewed prior He will likely need palliative care follow-up secondary to his chronic pain control, he will be referred back to palliative care team HPI General Date/Time Provider Initiated Documentation: 03/25/23 17:30. HPI Narrative: She is 57-year-old male known to this facility with history of anxiety, depression, lung cancer, on palliative care, chronic tobacco use presents with report of worsening depression. Son and sister today, concerned it may be the last time he sees her and felt significantly depressed. States he like somebody to talk to. Denies any suicidality. Denies any headache or pain complaints. Denies any homicidality or auditory visual hallucinations. Denies any illicit drug use. Related Data Home Medications Medication Instructions Recorded Confirmed bupropion HCl 150 mg 24 hr tablet, 150 mg PO QAM 01/26/22 03/25/23 extended release hydroxyzine HCl 25 mg tablet 25 mg PO BID PRN 01/26/22 03/25/23 olanzapine 10 mg tablet (Zyprexa) 20 mg PO HS 01/26/22 03/25/23 trazodone 50 mg tablet 50 mg PO HS 01/26/22 03/25/23 sennosides 8.6 mg tablet (senna) 8.6 mg PO DAILY Opioid induced 11/07/22 03/25/23 constipation #90 tabs gabapentin 300 mg capsule 300 mg PO HS 11/23/22 03/25/23 levothyroxine 100 mcg tablet 100 mcg PO DAILY 11/23/22 03/25/23 magnesium oxide 400 mg (241.3 mg 400 mg PO DAILY 11/23/22 03/25/23 magnesium) tablet melatonin 10 mg capsule 10 mg PO HS 11/23/22 03/25/23 omeprazole 20 mg capsule,delayed 20 mg PO DAILY 11/23/22 03/25/23 release pravastatin 20 mg tablet 20 mg PO HS 11/23/22 03/25/23 sertraline 100 mg tablet 150 mg PO DAILY 11/23/22 03/25/23 albuterol sulfate 90 mcg/actuation 2 puff inhalation QID PRN 12/19/22 03/25/23 aerosol inhaler shortness of breath or wheezing #8 grams hydromorphone 2 mg tablet 2 mg PO Q6H PRN pain #20 tabs 02/26/23 03/25/23 (Dilaudid) fentanyl 50 mcg/hr transdermal 1 patch transdermal Q72H #10 ea 03/23/23 03/25/23 patch Previous Rx's Medication Instructions Recorded sennosides 8.6 mg tablet (senna) 8.6 mg PO DAILY Opioid induced 11/07/22 constipation #90 tabs albuterol sulfate 90 mcg/actuation 2 puff inhalation QID PRN 12/19/22 aerosol inhaler shortness of breath or wheezing #8 grams hydromorphone 2 mg tablet 2 mg PO Q6H PRN pain #20 tabs 02/26/23 (Dilaudid) fentanyl 50 mcg/hr transdermal 1 patch transdermal Q72H #10 ea 03/23/23 patch Allergies Allergy/AdvReac Type Severity Reaction Status Date / Time Sulfa (Sulfonamide Allergy Severe Swelling/Ed Unverified 03/23/23 13:15 Antibiotics) jostin General Stated Complaint: PsychEval ABA: 3 PFSH All Active Problems (Updated 03/25/23 @ 19:20 by RENAE Matt) Unintentional weight loss (Acute) Hemoptysis (Acute) Hypoxia (Acute) Cancer related pain (Acute) Advanced care planning/counseling discussion (Acute) Palliative care patient (Acute) Bilateral lung cancer (Acute) Adenocarcinoma from 2020 biopsy COVID (Acute) Suicidal ideation (Acute) Depression (Chronic) Deliberate self-cutting (Acute) Other social stressor (Acute) Agitation (Acute) Hemoptysis (Acute) Thumb injury (Acute) Abnormal chest CT (Acute) GERD (gastroesophageal reflux disease) (Chronic) Hypercholesterolemia (Chronic) Suicidal thoughts (Acute) Leukocytosis (Chronic) Tobacco abuse (Chronic) Suicidal ideation (Acute) Anxiety (Chronic) Depression (Chronic) COPD (chronic obstructive pulmonary disease) (Chronic) Depression (Chronic) Bipolar disorder (Chronic) Depression with suicidal ideation (Acute) Medical History Depressed Stress Suicidal thoughts Shingles Suicidal ideations Traumatic pneumothorax 2017, chest tube x2 Bipolar disorder Surgical History History of ankle surgery S/P thoracostomy tube placement Social History Smoking/Tobacco Use Status: Current every day Tobacco Type: cigarettes Smoking risk assessment performed?: Yes Alcohol Intake: never Drug use: Daily Substance use type: marijuana Details: Pt reports cannabis use for relaxation, pain management Housing: apartment Current gender identity: male Do you feel safe at home: No (does not feel safe with self) Do you feel safe in your relationship?: Yes Additional Social history: Lives in a private apartment. Has [facility] case management Course Vital Signs Vital signs: Vital Signs Temperature 36.8 C 03/25/23 17:14 Pulse 112 H 03/25/23 17:14 Respiratory Rate 18 03/25/23 17:14 Blood Pressure 120/75 03/25/23 17:14 Pulse Oximetry 96 03/25/23 17:14 Temperature 36.8 C 03/25/23 17:14 Temperature Source Skin 03/25/23 17:14 Pulse 112 H 03/25/23 17:14 Respiratory Rate 18 03/25/23 17:14 Respiratory Effort Normal 03/25/23 17:22 Blood Pressure 120/75 03/25/23 17:14 Blood Pressure Position Sitting 03/25/23 17:14 Pulse Oximetry 96 03/25/23 17:14 Oxygen Delivery Method Room Air 03/25/23 17:14 Oxygen Flow Rate 0 03/25/23 17:14 Pain Level 5 03/25/23 17:14
--- NOTE | 2023-03-25 19:12 | NUR.NOTE ---
Assumed care of PT. PT in NAD Nursing Note:
[2023-03-25 19:18] VITALS: PULSE 103; O2SAT 96
== END 2023-03-25 19:49 | disposition home or self-care (01) ==
PROVIDERS: Emergency Provider Physician Assistant; PCP Family Medicine
DX: F41.1 Generalized anxiety disorder (principal); F32.A Depression, unspecified; Z85.118 Personal history of other malignant neoplasm of bronchus and lung
CPT/HCPCS: 99283; 99284

== ENCOUNTER 2023-04-07 18:20 | Emergency (ER) | payer MEDICAID, SELFPAY ==
[2023-04-07 18:24] VITALS: BP 119/78; PULSE 81; RESP 20; O2SAT 96
--- NOTE | 2023-04-07 18:30 | DI.RAD_ITS ---
Exam(s) XR RIBS LT W PA LAT CHEST CLINICAL HISTORY left rib injury. COMPARISON: CR,XR XR CHEST 2V PA LATERAL from 12/30/[address] CHEST PE CTA from 02/27/2023 TECHNIQUE:: PA and lateral views of the chest and four views of the left ribs were performed. FINDINGS: LUNGS: No gross interval change in left upper lobe mass and atelectasis. Roughly stable area of incr eased density medial right lower lobe.. Underlying fibrotic changes. No pleural abnormality seen. HEART: Normal. MEDIASTINUM: Normal. BONES: Fractures of the 7th, 8th and 10th ribs. No compression fractures are seen in the thoracic sp ine. No bony destructive lesion is seen. OTHER FINDINGS: None. IMPRESSION: 1. Left 7th, 8th and 10th rib fractures. 2. Roughly stable appearance of left upper lobe mass and right lower lobe mass versus consolidation f rom prior CT.
--- NOTE | 2023-04-07 18:42 | W.ED.GENAD ---
Discharge Plan Disposition Patient Disposition: Home Condition: Stable Discharge Details Clinical Impression: Closed rib fracture Primary Care Provider: Chung Perry ED Provider: Clementina Tovar Home Meds and New Rx's Prescriptions: New tramadol 50 mg tablet 50 mg PO Q8H PRN (Reason: pain) Qty: 10 0RF No Action lidocaine 5 % adhesive patch,medicated 1 patch topical DAILY Qty: 30 0RF Rx Instructions: leave on most painful area for up to 12 hrs for rib pain after fall sennosides [senna] 8.6 mg tablet 8.6 mg PO DAILY Qty: 90 3RF fentanyl 50 mcg/hr patch 72 hour 1 patch transdermal Q72H MDD 50mcg/hr Qty: 10 0RF hydromorphone [Dilaudid] 2 mg tablet 2 mg PO Q6H MDD 8 mg PRN (Reason: pain) Qty: 20 0RF hydroxyzine HCl 25 mg tablet 25 mg PO BID PRN olanzapine [Zyprexa] 10 mg Tablet 20 mg PO HS bupropion HCl 150 mg tablet extended release 24 hr 150 mg PO QAM trazodone 50 mg tablet 50 mg PO HS albuterol sulfate 90 mcg/actuation HFA aerosol inhaler 2 puff inhalation QID PRN (Reason: shortness of breath or wheezing) Qty: 8 0RF Rx Instructions: Use 1 or 2 puffs every 4-6 hours as needed for shortness of breath or wheezing. sertraline 100 mg tablet 150 mg PO DAILY levothyroxine 100 mcg tablet 100 mcg PO DAILY magnesium oxide 400 mg (241.3 mg magnesium) tablet 400 mg PO DAILY Patient Comments: states not taking 02/27/23 gabapentin 300 mg capsule 300 mg PO HS omeprazole 20 mg capsule,delayed release(DR/EC) 20 mg PO DAILY pravastatin 20 mg tablet 20 mg PO HS melatonin 10 mg capsule 10 mg PO HS Discharge Instructions Instructions: Rib Fracture (ED) Additional Instructions: use incentive spirometer every hour can take the ultram, but be careful this can make you feel light headed when you stand up. 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 Initial differential includes contusion, rib fracture, pathologic fracture. Patient has lung cancer and is followed by palliative care, he is not currently on treatment for the cancer. We will get x-ray to evaluate for fracture, but ultimately will provide additional medication for pain control patient 1910: X-ray reviewed and independently interpreted, there does appear to be a displaced left lateral rib fracture 1950: Radiology confirms rib fractures of 7 8 and 10. Given that this occurred a week ago and the patient has no significant sequela other than pain, I feel he is stable for discharge. Will discharge with a prescription for tramadol. He received a prescription for lidocaine patch yesterday and he understands to pick this up. He was provided with incentive spirometer to use as well. Return precautions advised follow-up with palliative care as needed. Medical Records Medical records reviewed: Yes I reviewed the patient's medical records. HPI General Date/Time Provider Initiated Documentation: 04/07/23 18:35. Limitations to Documentation: no limitations. Information obtained by: patient. HPI Narrative: 57-year-old gentleman with past medical history of terminal lung cancer presents for evaluation of left-sided chest wall pain. He reports that about a week ago he fell and struck his ribs on a dresser. Reports that he has had consistent pain since that time. No shortness of breath worse than baseline. He is wearing a fentanyl patch but otherwise not taking any additional oral pain medication. He was prescribed lidocaine patch by palliative care yesterday, but did not fill this prescription. Related Data Home Medications Medication Instructions Recorded Confirmed bupropion HCl 150 mg 24 hr tablet, 150 mg PO QAM 01/26/22 04/06/23 extended release hydroxyzine HCl 25 mg tablet 25 mg PO BID PRN 01/26/22 04/07/23 olanzapine 10 mg tablet (Zyprexa) 20 mg PO HS 01/26/22 04/07/23 trazodone 50 mg tablet 50 mg PO HS 01/26/22 04/07/23 sennosides 8.6 mg tablet (senna) 8.6 mg PO DAILY Opioid induced 11/07/22 04/07/23 constipation #90 tabs gabapentin 300 mg capsule 300 mg PO HS 11/23/22 04/07/23 levothyroxine 100 mcg tablet 100 mcg PO DAILY 11/23/22 04/07/23 magnesium oxide 400 mg (241.3 mg 400 mg PO DAILY 11/23/22 04/07/23 magnesium) tablet melatonin 10 mg capsule 10 mg PO HS 11/23/22 04/07/23 omeprazole 20 mg capsule,delayed 20 mg PO DAILY 11/23/22 04/07/23 release pravastatin 20 mg tablet 20 mg PO HS 11/23/22 04/07/23 sertraline 100 mg tablet 150 mg PO DAILY 11/23/22 04/07/23 albuterol sulfate 90 mcg/actuation 2 puff inhalation QID PRN 12/19/22 04/07/23 aerosol inhaler shortness of breath or wheezing #8 grams hydromorphone 2 mg tablet 2 mg PO Q6H PRN pain #20 tabs 02/26/23 04/07/23 (Dilaudid) fentanyl 50 mcg/hr transdermal 1 patch transdermal Q72H #10 ea 03/23/23 04/07/23 patch lidocaine 5 % topical patch 1 patch topical DAILY #30 ea 04/06/23 04/07/23 tramadol 50 mg tablet 50 mg PO Q8H PRN pain #10 tabs 04/07/23 Previous Rx's Medication Instructions Recorded sennosides 8.6 mg tablet (senna) 8.6 mg PO DAILY Opioid induced 11/07/22 constipation #90 tabs albuterol sulfate 90 mcg/actuation 2 puff inhalation QID PRN 12/19/22 aerosol inhaler shortness of breath or wheezing #8 grams hydromorphone 2 mg tablet 2 mg PO Q6H PRN pain #20 tabs 02/26/23 (Dilaudid) fentanyl 50 mcg/hr transdermal 1 patch transdermal Q72H #10 ea 03/23/23 patch lidocaine 5 % topical patch 1 patch topical DAILY #30 ea 04/06/23 tramadol 50 mg tablet 50 mg PO Q8H PRN pain #10 tabs 04/07/23 Allergies Allergy/AdvReac Type Severity Reaction Status Date / Time Sulfa (Sulfonamide Allergy Severe Swelling/Ed Unverified 04/07/23 18:27 Antibiotics) jostin General Stated Complaint: Chest/Rib ABA: 3 PFSH All Active Problems (Updated 04/07/23 @ 19:35 by Clementina Tovar MD) Closed rib fracture (Acute) Unintentional weight loss (Acute) Hypoxia (Acute) Cancer related pain (Acute) Advanced care planning/counseling discussion (Acute) Palliative care patient (Acute) Bilateral lung cancer (Acute) Adenocarcinoma from 2020 biopsy COVID (Acute) Suicidal ideation (Acute) Depression (Chronic) Deliberate self-cutting (Acute) Other social stressor (Acute) Agitation (Acute) Hemoptysis (Acute) Thumb injury (Acute) Abnormal chest CT (Acute) GERD (gastroesophageal reflux disease) (Chronic) Hypercholesterolemia (Chronic) Suicidal thoughts (Acute) Leukocytosis (Chronic) Tobacco abuse (Chronic) Suicidal ideation (Acute) Anxiety (Chronic) Depression (Chronic) COPD (chronic obstructive pulmonary disease) (Chronic) Depression (Chronic) Bipolar disorder (Chronic) Depression with suicidal ideation (Acute) Medical History Depressed Stress Suicidal thoughts Shingles Suicidal ideations Traumatic pneumothorax 2017, chest tube x2 Bipolar disorder Surgical History History of ankle surgery S/P thoracostomy tube placement Social History Smoking/Tobacco Use Status: Current every day Tobacco Type: cigarettes Smoking risk assessment performed?: Yes Alcohol Intake: never Drug use: Daily Substance use type: marijuana Details: Pt reports cannabis use for relaxation, pain management Housing: apartment Current gender identity: male Do you feel safe at home: No (does not feel safe with self) Do you feel safe in your relationship?: Yes Additional Social history: Lives in a private apartment. Has [facility] case management Exam Narrative Exam Narrative: Review of Systems: All systems reviewed & are unremarkable except as noted in HPI and below Chronically ill-appearing, frail, no acute distress NACT PERRL, normal conjunctiva RRR Diminished breath sounds bilaterally, left lateral chest wall with some tenderness to palpation, no flail chest, no obvious deformity or bruising Nondistended abdomen Extremities w/o deformity, no cyanosis, no edema No rashes or lesions. no focal neurologic deficits Appropriate mood and affect Course Vital Signs Vital signs: Vital Signs Pulse 81 04/07/23 18:24 Respiratory Rate 20 04/07/23 18:24 Blood Pressure 119/78 04/07/23 18:24 Pulse Oximetry 96 04/07/23 18:24 Pulse 81 04/07/23 18:24 Respiratory Rate 20 11/18/23 18:24 Respiratory Effort Normal 04/07/23 18:27 Blood Pressure 119/78 04/07/23 18:24 Blood Pressure Position Sitting 04/07/23 18:24 Pulse Oximetry 96 04/07/23 18:24 Oxygen Delivery Method Room Air 04/07/23 18:24 Oxygen Flow Rate 0 04/07/23 18:24 Pain Level 10 04/07/23 18:24
[2023-04-07] MEDS: traMADol 50 MG TAB PO (18:47)
[2023-04-07 19:31] VITALS: PULSE 80; RESP 20; O2SAT 96
--- NOTE | 2023-04-07 19:51 | DI.VRAD_ITS ---
PROCEDURE INFORMATION: Exam: XR Left Ribs Exam date and time: 04/07/2023 6:51 PM Age: 57 years old Clinical indication: Injury or trauma; Fall; Blunt trauma (contusions or hematomas); Rib area, left side; Patient HX: Left rib injury TECHNIQUE: Imaging protocol: Radiologic exam of the left ribs. Views: 2 views. COMPARISON: CT CHEST PE CTA 02/27/2023 2:23 PM FINDINGS: Bones/joints: There are fractures of left lateral ribs 7, 8, and 10. Soft tissues: Normal. IMPRESSION: 1. Fractures of the left lateral ribs 7, 8, and 10. 2.Other findings/details as above. For further evaluation of the above findings, or if symptoms remain concerning, a dedicated CT scan of the chest could be obtained. PROCEDURE INFORMATION: Exam: XR Chest Exam date and time: 04/07/2023 6:51 PM Age: 57 years old Clinical indication: Injury or trauma; Fall; Blunt trauma (contusions or hematomas); Rib area, left side; Patient HX: Left rib injury TECHNIQUE: Imaging protocol: Radiologic exam of the chest. Views: 2 views. COMPARISON: CT CHEST PE CTA 02/27/2023 2:23 PM. Plain radiographs 12/30/2022. FINDINGS: Lungs: Again seen is a left upper lobe mass, similar in appearance to pearl glue operator radiograph dated 02/27/2023. Pleural spaces: No pneumothorax appreciated. Heart/Mediastinum: The cardiomediastinal contours are unchanged from prior examination. There are new opacities along the right heart border and overlying the lower thoracic spine on the lateral radiograph which could represent atelectasis, infection, or contusion in the setting of trauma. Bones/joints: Fractures of the left lateral ribs 7, 8, and 10, better appreciated on rib films. Skeletal degenerative changes are seen. IMPRESSION: 1. Fractures of the left lateral ribs 7, 8, and 10, better appreciated on rib films. 2. There are new opacities along the right heart border and overlying the lower thoracic spine on the lateral radiograph which could represent atelectasis, infection, or contusion in the setting of trauma. 3. Again seen is a left upper lobe mass, similar in appearance to pearl glue operator radiograph dated 02/27/2023. 4. Other findings/details as above. For further evaluation of the above findings, or if symptoms remain concerning, a dedicated CT scan of the chest could be obtained. Dictated and Authenticated by: Lilliam Alonzo MD. Ordering:BREANNA Teran MD
== END 2023-04-07 20:12 | disposition home or self-care (01) ==
PROVIDERS: Emergency Provider Emergency Medicine; PCP Family Medicine
DX: S22.42XA Multiple fractures of ribs, left side, initial encounter for closed fracture (principal); C34.92 Malignant neoplasm of unspecified part of left bronchus or lung; C34.91 Malignant neoplasm of unspecified part of right bronchus or lung; F17.210 Nicotine dependence, cigarettes, uncomplicated; W22.03XA Walked into furniture, initial encounter; Y93.89 Activity, other specified; Y92.013 Bedroom of single-family (private) house as the place of occurrence of the external cause
CPT/HCPCS: 99283; 71046; 71100

== ENCOUNTER 2023-04-20 14:40 | Emergency (ER) | payer MEDICAID, SELFPAY ==
[2023-04-20 14:42] VITALS: BP 110/87; PULSE 92; RESP 16; TEMP 36.7; O2SAT 98
--- NOTE | 2023-04-20 14:42 | ED.GENADUL_ITS ---
Discharge Plan Disposition Patient Disposition: Home Condition: Good Discharge Details Clinical Impression: Depression, Bilateral lung cancer Primary Care Provider: Chung Perry ED Provider: Jewel Lackey [place] Meds and New Rx's Prescriptions: Continued lidocaine 5 % adhesive patch,medicated 1 patch topical DAILY Qty: 30 0RF Rx Instructions: leave on most painful area for up to 12 hrs for rib pain after fall sennosides [senna] 8.6 mg tablet 8.6 mg PO DAILY Qty: 90 3RF megestrol 20 mg tablet 20 mg PO BID Qty: 60 0RF fentanyl 75 mcg/hr patch 72 hour 1 patch transdermal Q72H MDD 75 mcg/hr patch Qty: 10 0RF Rx Instructions: For cancer related pain oxycodone 5 mg tablet 5 mg PO Q4H MDD 30 mg PRN (Reason: pain) Qty: 60 0RF Rx Instructions: for cancer related pain zolpidem [Ambien] 5 mg tablet 5 mg PO QHS Qty: 30 0RF hydroxyzine HCl 25 mg tablet 25 mg PO BID PRN olanzapine [Zyprexa] 10 mg Tablet 20 mg PO HS bupropion HCl 150 mg tablet extended release 24 hr 150 mg PO QAM trazodone 50 mg tablet 50 mg PO HS albuterol sulfate 90 mcg/actuation HFA aerosol inhaler 2 puff inhalation QID PRN (Reason: shortness of breath or wheezing) Qty: 8 0RF Rx Instructions: Use 1 or 2 puffs every 4-6 hours as needed for shortness of breath or wheezing. sertraline 100 mg tablet 150 mg PO DAILY levothyroxine 100 mcg tablet 100 mcg PO DAILY magnesium oxide 400 mg (241.3 mg magnesium) tablet 400 mg PO DAILY Patient Comments: states not taking 02/27/23 gabapentin 300 mg capsule 300 mg PO HS omeprazole 20 mg capsule,delayed release(DR/EC) 20 mg PO DAILY melatonin 10 mg capsule 10 mg PO HS No Action acetaminophen 650 mg suppository 650 mg WI Q6H PRN (Reason: fever, mild pain) Qty: 6 0RF Rx Instructions: Hospice Patient hyoscyamine sulfate 0.125 mg tablet,disintegrating 0.125 - 0.25 mg PO Q4H PRN (Reason: secretions) Qty: 24 0RF Rx Instructions: Hospice Patient lorazepam 1 mg tablet 1 mg PO Q4H PRN (Reason: anxiety, FLYNN or nausea) Qty: 6 5RF Rx Instructions: Hospice Patient haloperidol lactate 2 mg/mL concentrate 1 mg PO Q6H PRN (Reason: agitation) Qty: 15 0RF Rx Instructions: Hospice Patient morphine concentrate 100 mg/5 mL (20 mg/mL) solution 5 - 20 mg PO Q1-4H MDD 5 mL PRN (Reason: moderate to severe pain or shortness of breath) Qty: 30 0RF Rx Instructions: Hospice Patient prochlorperazine maleate 10 mg tablet 10 mg PO Q6H PRN (Reason: nausea and vomiting) Qty: 6 0RF Rx Instructions: Hospice Patient bisacodyl [Dulcolax (bisacodyl)] 10 mg suppository 10 mg WI daily PRN (Reason: constipation) Qty: 2 0RF Rx Instructions: Hospice Patient Insert 1 supp WI Daily PRN constipation (no BM in 3 days) acetaminophen 650 mg suppository 650 mg WI Q6H PRN (Reason: fever, mild pain) Qty: 6 0RF Rx Instructions: Hospice Patient morphine concentrate 100 mg/5 mL (20 mg/mL) solution 5 - 20 mg PO Q1-4H MDD 5 mL PRN (Reason: moderate to severe pain or shortness of breath) Qty: 30 0RF Rx Instructions: Hospice Patient prochlorperazine maleate 10 mg tablet 10 mg PO Q6H PRN (Reason: nausea and vomiting) Qty: 6 0RF Rx Instructions: Hospice Patient hyoscyamine sulfate 0.125 mg tablet,disintegrating 0.125 - 0.25 mg PO Q4H PRN (Reason: secretions) Qty: 24 0RF Rx Instructions: Hospice Patient bisacodyl [Dulcolax (bisacodyl)] 10 mg suppository 10 mg WI daily PRN (Reason: constipation) Qty: 2 0RF Rx Instructions: Hospice Patient Insert 1 supp WI Daily PRN constipation (no BM in 3 days) lorazepam 1 mg tablet 1 mg PO Q4H PRN (Reason: anxiety, FLYNN or nausea) Qty: 6 5RF Rx Instructions: Hospice Patient haloperidol lactate 2 mg/mL concentrate 1 mg PO Q6H PRN (Reason: agitation) Qty: 15 0RF Rx Instructions: Hospice Patient Discharge Instructions Additional Instructions: You were seen in the ED for suicidal thoughts. We worked out a plan with [facility] and the palliative care team for a safe discharge home. If you have any concerns, worsening depression, worsening thoughts of self-harm please return to the ED. Medical Decision Making Patient presenting to ED with complaint of increased depression and SI. He is followed by [facility] as well as by palliative care team. Was just seen by them this morning. I reviewed palliative care note. We will need to coordinate between mental health and palliative care given the patient's status of moving towards hospice. Will obtain screening labs in place on a watch pending decision between mental health and palliative care. Patient's laboratory studies are unremarkable. I was able to speak to his palliative care provider, Rizwana Locke. She has been working with the patient for some time. Unfortunately does not meet criteria for medical admission. Consider care bed. She will reach out to his casework supervisor. Received a call back from patient's casework supervisor, Denise, at [facility]. She has been able to secure a caregiver for patient. She is spoken to the patient who is now comfortable going home and working through the process of hospice outpatient. Senior Financial Accountant will be coming to pick him up from ED and take him home. Medical Records Medical records reviewed: Yes I reviewed the patient's medical records. Lab Data Lab results reviewed: Yes I reviewed the patient's lab results. HPI General Mode of arrival: EMS . Date/Time Provider Initiated Documentation: 04/20/23 14:41 . Limitations to Documentation: no limitations . Information obtained by: patient, RN notes reviewed and old records reviewed . HPI Narrative: Patient presents to ED with suicidal thoughts, feeling overwhelmed, constant pain. Patient was just seen by his palliative care provider and his [facility] casework supervisor this morning. He has uncurable lung cancer, has been losing weight dramatically, has been weak with falls, worsening pain despite pain management. After the meeting this morning he has been feeling more overwhelmed and depressed. Decision has been made to work towards hospice care. This afternoon patient reached out to mental health with his concerns and patient transported here by EMS for evaluation. Related Data Home Medications Medication Instructions Recorded Confirmed bupropion HCl 150 mg 24 hr tablet, 150 mg PO QAM 01/26/22 04/20/23 extended release hydroxyzine HCl 25 mg tablet 25 mg PO BID PRN 01/26/22 04/20/23 olanzapine 10 mg tablet (Zyprexa) 20 mg PO HS 01/26/22 04/20/23 trazodone 50 mg tablet 50 mg PO HS 01/26/22 04/20/23 sennosides 8.6 mg tablet (senna) 8.6 mg PO DAILY Opioid induced 11/07/22 04/20/23 constipation #90 tabs gabapentin 300 mg capsule 300 mg PO HS 11/23/22 04/20/23 levothyroxine 100 mcg tablet 100 mcg PO DAILY 11/23/22 04/20/23 magnesium oxide 400 mg (241.3 mg 400 mg PO DAILY 11/23/22 04/20/23 magnesium) tablet melatonin 10 mg capsule 10 mg PO HS 11/23/22 04/20/23 omeprazole 20 mg capsule,delayed 20 mg PO DAILY 11/23/22 04/20/23 release sertraline 100 mg tablet 150 mg PO DAILY 11/23/22 04/20/23 albuterol sulfate 90 mcg/actuation 2 puff inhalation QID PRN 12/19/22 04/20/23 aerosol inhaler shortness of breath or wheezing #8 grams lidocaine 5 % topical patch 1 patch topical DAILY #30 ea 04/06/23 04/20/23 acetaminophen 650 mg rectal 650 mg WI Q6H PRN fever, mild pain 04/20/23 04/20/23 suppository #6 supp acetaminophen 650 mg rectal 650 mg WI Q6H PRN fever, mild pain 04/20/23 04/20/23 suppository #6 supp bisacodyl 10 mg rectal suppository 10 mg WI daily PRN constipation #2 04/20/23 04/20/23 (Dulcolax (bisacodyl)) supp bisacodyl 10 mg rectal suppository 10 mg WI daily PRN constipation #2 04/20/23 04/20/23 (Dulcolax (bisacodyl)) supp fentanyl 75 mcg/hr transdermal 1 patch transdermal Q72H #10 ea 04/20/23 04/20/23 patch haloperidol lactate 2 mg/mL oral 1 mg (0.5 mL) PO Q6H PRN agitation 04/20/23 04/20/23 concentrate #15 mL haloperidol lactate 2 mg/mL oral 1 mg (0.5 mL) PO Q6H PRN agitation 04/20/23 04/20/23 concentrate #15 mL hyoscyamine sulfate 0.125 mg 0.125 - 0.25 mg (1 - 2 x 0.125 mg) 04/20/23 04/20/23 disintegrating tablet PO Q4H PRN secretions #24 tabs hyoscyamine sulfate 0.125 mg 0.125 - 0.25 mg (1 - 2 x 0.125 mg) 04/20/23 04/20/23 disintegrating tablet PO Q4H PRN secretions #24 tabs lorazepam 1 mg tablet 1 mg PO Q4H PRN anxiety, FLYNN or 04/20/23 04/20/23 nausea #6 tabs lorazepam 1 mg tablet 1 mg PO Q4H PRN anxiety, FLYNN or 04/20/23 04/20/23 nausea #6 tabs megestrol 20 mg tablet 20 mg PO BID #60 tabs 04/20/23 04/20/23 morphine concentrate 100 mg/5 mL 5 - 20 mg (0.25 - 1 mL) PO Q1-4H 04/20/23 04/20/23 (20 mg/mL) oral solution PRN moderate to severe pain or shortness of breath #30 mL morphine concentrate 100 mg/5 mL 5 - 20 mg (0.25 - 1 mL) PO Q1-4H 04/20/23 04/20/23 (20 mg/mL) oral solution PRN moderate to severe pain or shortness of breath #30 mL oxycodone 5 mg tablet 5 mg PO Q4H PRN pain #60 tabs 04/20/23 04/20/23 prochlorperazine maleate 10 mg 10 mg PO Q6H PRN nausea and 04/20/23 04/20/23 tablet vomiting #6 tabs prochlorperazine maleate 10 mg 10 mg PO Q6H PRN nausea and 04/20/23 04/20/23 tablet vomiting #6 tabs zolpidem 5 mg tablet (Ambien) 5 mg PO QHS #30 tabs 04/20/23 04/20/23 Previous Rx's Medication Instructions Recorded sennosides 8.6 mg tablet (senna) 8.6 mg PO DAILY Opioid induced 11/07/22 constipation #90 tabs albuterol sulfate 90 mcg/actuation 2 puff inhalation QID PRN 12/19/22 aerosol inhaler shortness of breath or wheezing #8 grams lidocaine 5 % topical patch 1 patch topical DAILY #30 ea 04/06/23 acetaminophen 650 mg rectal 650 mg WI Q6H PRN fever, mild pain 04/20/23 suppository #6 supp acetaminophen 650 mg rectal 650 mg WI Q6H PRN fever, mild pain 04/20/23 suppository #6 supp bisacodyl 10 mg rectal suppository 10 mg WI daily PRN constipation #2 04/20/23 (Dulcolax (bisacodyl)) supp bisacodyl 10 mg rectal suppository 10 mg WI daily PRN constipation #2 04/20/23 (Dulcolax (bisacodyl)) supp fentanyl 75 mcg/hr transdermal 1 patch transdermal Q72H #10 ea 04/20/23 patch haloperidol lactate 2 mg/mL oral 1 mg (0.5 mL) PO Q6H PRN agitation 04/20/23 concentrate #15 mL haloperidol lactate 2 mg/mL oral 1 mg (0.5 mL) PO Q6H PRN agitation 04/20/23 concentrate #15 mL hyoscyamine sulfate 0.125 mg 0.125 - 0.25 mg (1 - 2 x 0.125 mg) 04/20/23 disintegrating tablet PO Q4H PRN secretions #24 tabs hyoscyamine sulfate 0.125 mg 0.125 - 0.25 mg (1 - 2 x 0.125 mg) 04/20/23 disintegrating tablet PO Q4H PRN secretions #24 tabs lorazepam 1 mg tablet 1 mg PO Q4H PRN anxiety, FLYNN or 04/20/23 nausea #6 tabs lorazepam 1 mg tablet 1 mg PO Q4H PRN anxiety, FLYNN or 04/20/23 nausea #6 tabs megestrol 20 mg tablet 20 mg PO BID #60 tabs 04/20/23 morphine concentrate 100 mg/5 mL 5 - 20 mg (0.25 - 1 mL) PO Q1-4H 04/20/23 (20 mg/mL) oral solution PRN moderate to severe pain or shortness of breath #30 mL morphine concentrate 100 mg/5 mL 5 - 20 mg (0.25 - 1 mL) PO Q1-4H 04/20/23 (20 mg/mL) oral solution PRN moderate to severe pain or shortness of breath #30 mL oxycodone 5 mg tablet 5 mg PO Q4H PRN pain #60 tabs 04/20/23 prochlorperazine maleate 10 mg 10 mg PO Q6H PRN nausea and 04/20/23 tablet vomiting #6 tabs prochlorperazine maleate 10 mg 10 mg PO Q6H PRN nausea and 04/20/23 tablet vomiting #6 tabs zolpidem 5 mg tablet (Ambien) 5 mg PO QHS #30 tabs 04/20/23 Allergies Allergy/AdvReac Type Severity Reaction Status Date / Time Sulfa (Sulfonamide Allergy Severe Swelling/Ed Unverified 04/20/23 10:40 Antibiotics) jostin General Stated Complaint: PsychEval ABA: 3 Review of Systems Constitutional Constitutional: Reports frequent falls, Reports poor appetite, Reports weakness and Reports weight loss ENT Ears, Nose, Mouth, and Throat: Denies otalgia, Denies facial pain and Denies nasal congestion Cardiovascular Cardiovascular: Denies chest pain Respiratory Respiratory: Reports cough Gastrointestinal Gastrointestinal: Denies diarrhea and Denies vomiting Neurologic Neurologic: Reports frequent falls and Reports weakness PFSH All Active Problems (Updated 04/20/23 @ 17:37 by Jewel Lackey MD) Insomnia (Acute) Closed rib fracture (Acute) Unintentional weight loss (Acute) Hypoxia (Acute) Cancer related pain (Acute) Advanced care planning/counseling discussion (Acute) Palliative care patient (Acute) Bilateral lung cancer (Acute) Adenocarcinoma from 2020 biopsy COVID (Acute) Suicidal ideation (Acute) Depression (Chronic) Deliberate self-cutting (Acute) Other social stressor (Acute) Agitation (Acute) Hemoptysis (Acute) Thumb injury (Acute) Abnormal chest CT (Acute) GERD (gastroesophageal reflux disease) (Chronic) Hypercholesterolemia (Chronic) Suicidal thoughts (Acute) Leukocytosis (Chronic) Tobacco abuse (Chronic) Suicidal ideation (Acute) Anxiety (Chronic) Depression (Chronic) COPD (chronic obstructive pulmonary disease) (Chronic) Depression (Chronic) Bipolar disorder (Chronic) Depression with suicidal ideation (Acute) Medical History Depressed Stress Suicidal thoughts Shingles Suicidal ideations Traumatic pneumothorax 2017, chest tube x2 Bipolar disorder Surgical History History of ankle surgery S/P thoracostomy tube placement Social History Smoking/Tobacco Use Status: Current every day Tobacco Type: cigarettes Smoking risk assessment performed?: Yes Alcohol Intake: never Drug use: Daily Substance use type: marijuana Details: Pt reports cannabis use for relaxation, pain management Housing: apartment Current gender identity: male Do you feel safe at home: No (does not feel safe with self) Do you feel safe in your relationship?: Yes Additional Social history: Lives in a private apartment. Has [facility] case management Exam Narrative Exam Narrative: Const: Thin frail male in NAD. HEENT: NC/AT. Normal facial exam. Eyes: Normal conjunctiva and sclera. Neck: Supple. Trachea midline. Lungs: Normal respiratory effort. Lungs are with few scattered rhonchi. Cor: RRR without murmur/gallop. Good radial pulses. GI: Soft. ND. Neuro: A+O x 3. Normal speech, mentation, gait. Cranial nerves II - XII grossly intact. No gross motor or sensory deficit. Ext: No C/C/E. Psych: Depressed, tired, reports SI
--- NOTE | 2023-04-20 15:02 | NUR.NOTE ---
Nursing Note:Patient refused to remove his underwear. Rest of his belongs are in ZB1 locker
--- NOTE | 2023-04-20 15:04 | NUR.NOTE ---
Pts belongings obtained with [facility]. Valuables secured in [address]. JUAN JOSÉ Case management at bedside. at bedside.
[2023-04-20 15:25] LABS: Abs Immature Grans 0.05 10^3/uL (0.0-0.06); Absolute Basophil Count 0.05 10^3/uL (0.0-0.2); Absolute Eosinophil Count 0.25 10^3/uL (0.0-0.7); Absolute Lymphocyte Count 1.36 10^3/uL (1.2-3.4); Absolute Monocyte Count 0.63 10^3/uL (0.1-0.8); Absolute Neutrophil Count 7.34 10^3/uL (1.2-6.7); Basophils % 0.5; Eosinophils % 2.6; HCT 36.9 % (40.0-50.0); HGB 11.4 g/dL (13.5-17.5); Immature Grans % 0.5; MCH 21.2 pg (27.0-33.0); MCHC 30.9 % (32.0-36.0); MCV 69 fL (80-95); MPV 9.7 fL (8.0-11.0); Monocytes % 6.5; Neutrophils % 75.9; Platelet Count 494 10^3/uL (130-400); RBC 5.39 10^6/uL (4.36-5.78); RDW 17.6 % (11.8-14.1); RDW-SD 41.8 fL; WBC 9.68 10^3/uL (4.4-10.8)
[2023-04-20] MEDS: fentaNYL 75 MCG PATCH TD (15:37)
[2023-04-20 15:39] LABS: Anion Gap 8.3 mmol/L (3-11); BUN 18 mg/dL (7-18); CO2 27.7 mmol/L (21.0-32.0); CREATININE 0.7 mg/dL (0.70-1.30); Calcium 9.1 mg/dL (8.5-10.1); Chloride 99 mmol/L (98-107); Glucose 107 mg/dL (74-106); Magnesium 1.8 mg/dL (1.8-2.4); Sodium 135 mmol/L (136-145)
[2023-04-20 15:45] LABS: Anisocytosis 1+; Diff Comment RBC Morph Reviewed; Hypochromasia 1+; Microcytosis 2+
[2023-04-20 15:46] LABS: ETHANOL BLOOD < 3.0 mg/dL (<10); Poikilocytes 1+
[2023-04-20 15:51] LABS: Acetaminophen < 2 ug/mL (10-30); Salicylate < 2.8 mg/dL (<2.8)
[2023-04-20 16:44] LABS: *AMPHETAMINES SCREEN URINE Negative (Negative); *BARBITURATES SCREEN URINE Negative (Negative); *BENZODIAZEPINES SCREEN URINE Negative (Negative); Cannabinoids THC Positive (Negative); Cocaine Screen,Urine Negative (Negative); METHADONE URINE SCREEN Negative (Negative); OPIATES URINE SCREEN Negative (Negative); Tricyclic Antidepressants Negative (Negative)
== END 2023-04-20 17:44 | disposition home or self-care (01) ==
PROVIDERS: Emergency Provider Emergency Medicine; PCP Family Medicine
DX: R45.851 Suicidal ideations (principal); F32.A Depression, unspecified; C34.92 Malignant neoplasm of unspecified part of left bronchus or lung; C34.91 Malignant neoplasm of unspecified part of right bronchus or lung; F17.210 Nicotine dependence, cigarettes, uncomplicated
CPT/HCPCS: 80048; 80307; 99283; 80320; 80329; 83735; 85025

== ENCOUNTER 2023-04-23 16:07 | Emergency (ER) | payer MEDICAID, SELFPAY ==
[2023-04-23] VITALS (13 sets, daily range): BP systolic 95–116; BP diastolic 65–77; PULSE 87–107; RESP 16–26; O2SAT 91–95
--- NOTE | 2023-04-23 16:00 | DI.CT_ITS ---
Exam(s) CT CHEST PE CTA EXAM: CT CHEST PE CTA CLINICAL HISTORY: chest pain, tachycardia, lung cancer. TECHNIQUE: Imaging Protocol: Axial CT angiography was performed with multi-slice acquisition and mu lti-planar reconstructions as well as axial, coronal and sagittal MIP reconstructions. CONTRAST MATERIAL: Intravenous: Omnipaque 350 Contrast volume:100 ml COMPARISON: CT CT CHEST PE CTA from 02/27/2023 FINDINGS: Pulmonary Arteries: No evidence of filling defect to suggest pulmonary emboli. Tracheobronchial tree: Patent where visualized. Mediastinum and Kimberly: No mild increase in right hilar adenopathy.. Pulmonary parenchyma: Continued increase in size of left upper lobe mass, now measuring 10 x 8 cm. T here is again bronchial obstruction vascular 10 UA vazquez. Continued worsening of right lower lobe mas ses., the largest measuring 5 x 3 cm. Increased size of a right middle lobe mass now measuring 4 x 2 cm. Small right upper lobe nodules noted.. Moderate emphysematous changes. Pleura: Stable small right pleural effusion. No pneumothorax. Heart: The heart is not dilated. No coronary artery calcifications are seen. Aorta: Thoracic aorta non-dilated. Atherosclerotic changes greater at the abdominal portion. No ane urysm. No dissection. Upper abdomen: Right adrenal enlargement now seen suspicious for metastasis. Bones: Unremarkable for age. Tubes, Catheters, and Lines: None IMPRESSION: No evidence of pulmonary embolism. Interval increase in size of bilateral pulmonary masses. New right adrenal mass. RADIATION DOSE DELIVERED: Total DLP DATA REPOSITORY: All CT scans at this facility are submitted to the National Radiology Data Registry (NRDR) Dose Index Registry (DIR) with the [employer] ([employer]). RADIATION OPTIMIZATION: All CT scans at this facility use at least one of these dose optimization te chniques: automated exposure control; mA and/or kV adjustment per patient size (includes targeted exa ms where dose is matched to clinical indication); or iterative reconstruction.
--- NOTE | 2023-04-23 16:00 | RT.EKG_ITS ---
APPROVED REPORT Exam: Resting ECG Reason for Exam: chest pain Patient Location: E HR:102 bpm ECG Measurements Heart Rate 102 AXIS NH 127 P 57 QRSd 94 QRS 75 QT 338 T 40 QTc 441 Conclusion Sinus tachycardia...rate> [address] segment or T wave abnormalities to suggest occlusive AL
[2023-04-23 16:20] LABS: Abs Immature Grans 0.07 10^3/uL (0.0-0.06); Absolute Monocyte Count 0.84 10^3/uL (0.1-0.8); Basophils % 0.4; Eosinophils % 1.3; HCT 32.4 % (40.0-50.0); HGB 10.2 g/dL (13.5-17.5); Immature Grans % 0.5; Lymphocytes % 11.5; MCH 21.1 pg (27.0-33.0); MCHC 31.5 % (32.0-36.0); MCV 67 fL (80-95); Monocytes % 5.9; Neutrophils % 80.4; RBC 4.84 10^6/uL (4.36-5.78); RDW 17.2 % (11.8-14.1); RDW-SD 40.5 fL; WBC 14.22 10^3/uL (4.4-10.8)
[2023-04-23 16:33] LABS: PTT Activated 30.1 sec (23.6-32.8)
[2023-04-23 16:37] LABS: Absolute Basophil Count 0.06 10^3/uL (0.0-0.2); Absolute Eosinophil Count 0.18 10^3/uL (0.0-0.7); Absolute Lymphocyte Count 1.64 10^3/uL (1.2-3.4); Absolute Neutrophil Count 11.43 10^3/uL (1.2-6.7)
[2023-04-23 16:38] LABS: Platelet Count 444 10^3/uL (130-400)
--- NOTE | 2023-04-23 16:38 | NUR.NOTE ---
Nursing Note: Nitroglycerin and 325 ASA given by EMS en route
[2023-04-23 16:41] LABS: ALT 14 U/L (16-63); AST 36 U/L (15-37); Albumin 2.4 g/dL (3.4-5.0); Alkaline Phosphatase 132 U/L (46-116); Anion Gap 10.2 mmol/L (3-11); Anisocytosis 1+; BUN 21 mg/dL (7-18); Bilirubin, Total 0.4 mg/dL (0.2-1.0); CO2 25.8 mmol/L (21.0-32.0); CREATININE 0.8 mg/dL (0.70-1.30); Calcium 8.9 mg/dL (8.5-10.1); Chloride 97 mmol/L (98-107); Diff Comment RBC Morph Reviewed; Estimated GFR 102.58 (mL/min/1.73m2); Glucose 131 mg/dL (74-106); Hypochromasia 1+; Magnesium 1.7 mg/dL (1.8-2.4); Microcytosis 1+; NT-proBNP 357 pg/mL (<300); Potassium 3.9 mmol/L (3.5-5.1); Sodium 133 mmol/L (136-145); Total Protein 7.2 g/dL (6.4-8.2); Troponin I < 50 ng/L (<or=60)
--- NOTE | 2023-04-23 16:42 | W.ED.GENAD ---
Discharge Plan Disposition Patient Disposition: Home Condition: Good Discharge Details Clinical Impression: Chest pain Primary Care Provider: Chung Perry ED Provider: Lilliam Rico Home Meds and New Rx's Prescriptions: No Action lidocaine 5 % adhesive patch,medicated 1 patch topical DAILY Qty: 30 0RF Rx Instructions: leave on most painful area for up to 12 hrs for rib pain after fall sennosides [senna] 8.6 mg tablet 8.6 mg PO DAILY Qty: 90 3RF megestrol 20 mg tablet 20 mg PO BID Qty: 60 0RF fentanyl 75 mcg/hr patch 72 hour 1 patch transdermal Q72H MDD 75 mcg/hr patch Qty: 10 0RF Rx Instructions: For cancer related pain oxycodone 5 mg tablet 5 mg PO Q4H MDD 30 mg PRN (Reason: pain) Qty: 60 0RF Rx Instructions: for cancer related pain zolpidem [Ambien] 5 mg tablet 5 mg PO QHS Qty: 30 0RF acetaminophen 650 mg suppository 650 mg HI Q6H PRN (Reason: fever, mild pain) Qty: 6 0RF Rx Instructions: Hospice Patient hyoscyamine sulfate 0.125 mg tablet,disintegrating 0.125 - 0.25 mg PO Q4H PRN (Reason: secretions) Qty: 24 0RF Rx Instructions: Hospice Patient lorazepam 1 mg tablet 1 mg PO Q4H PRN (Reason: anxiety, FLYNN or nausea) Qty: 6 5RF Rx Instructions: Hospice Patient haloperidol lactate 2 mg/mL concentrate 1 mg PO Q6H PRN (Reason: agitation) Qty: 15 0RF Rx Instructions: Hospice Patient morphine concentrate 100 mg/5 mL (20 mg/mL) solution 5 - 20 mg PO Q1-4H MDD 5 mL PRN (Reason: moderate to severe pain or shortness of breath) Qty: 30 0RF Rx Instructions: Hospice Patient prochlorperazine maleate 10 mg tablet 10 mg PO Q6H PRN (Reason: nausea and vomiting) Qty: 6 0RF Rx Instructions: Hospice Patient bisacodyl [Dulcolax (bisacodyl)] 10 mg suppository 10 mg HI daily PRN (Reason: constipation) Qty: 2 0RF Rx Instructions: Hospice Patient Insert 1 supp HI Daily PRN constipation (no BM in 3 days) acetaminophen 650 mg suppository 650 mg HI Q6H PRN (Reason: fever, mild pain) Qty: 6 0RF Rx Instructions: Hospice Patient morphine concentrate 100 mg/5 mL (20 mg/mL) solution 5 - 20 mg PO Q1-4H MDD 5 mL PRN (Reason: moderate to severe pain or shortness of breath) Qty: 30 0RF Rx Instructions: Hospice Patient prochlorperazine maleate 10 mg tablet 10 mg PO Q6H PRN (Reason: nausea and vomiting) Qty: 6 0RF Rx Instructions: Hospice Patient hyoscyamine sulfate 0.125 mg tablet,disintegrating 0.125 - 0.25 mg PO Q4H PRN (Reason: secretions) Qty: 24 0RF Rx Instructions: Hospice Patient bisacodyl [Dulcolax (bisacodyl)] 10 mg suppository 10 mg HI daily PRN (Reason: constipation) Qty: 2 0RF Rx Instructions: Hospice Patient Insert 1 supp HI Daily PRN constipation (no BM in 3 days) lorazepam 1 mg tablet 1 mg PO Q4H PRN (Reason: anxiety, FLYNN or nausea) Qty: 6 5RF Rx Instructions: Hospice Patient haloperidol lactate 2 mg/mL concentrate 1 mg PO Q6H PRN (Reason: agitation) Qty: 15 0RF Rx Instructions: Hospice Patient hydroxyzine HCl 25 mg tablet 25 mg PO BID PRN olanzapine [Zyprexa] 10 mg Tablet 20 mg PO HS bupropion HCl 150 mg tablet extended release 24 hr 150 mg PO QAM trazodone 50 mg tablet 50 mg PO HS albuterol sulfate 90 mcg/actuation HFA aerosol inhaler 2 puff inhalation QID PRN (Reason: shortness of breath or wheezing) Qty: 8 0RF Rx Instructions: Use 1 or 2 puffs every 4-6 hours as needed for shortness of breath or wheezing. sertraline 100 mg tablet 150 mg PO DAILY levothyroxine 100 mcg tablet 100 mcg PO DAILY magnesium oxide 400 mg (241.3 mg magnesium) tablet 400 mg PO DAILY Patient Comments: states not taking 02/27/23 gabapentin 300 mg capsule 300 mg PO HS omeprazole 20 mg capsule,delayed release(DR/EC) 20 mg PO DAILY melatonin 10 mg capsule 10 mg PO HS Discharge Instructions Instructions: Chest Pain (ED) Additional Instructions: Call your primary care doctor tomorrow to schedule an appointment within three days to follow up on your visit today. Return to the emergency department for new or worsening symptoms including if your pain returns, you have trouble breathing, or if you have any other concerns. Referrals: Chung Perry [Primary Care Provider] - Medical Decision Making 57yo M with hx of advanced lung cancer, COPD, working on establishing with hospice, presenting for chest pain for one hour. History from patient, EMS, and [facility] record review. Pain is aching, located in his left chest, and radiates to his left axilla. No associated symptoms, did have a fall and caught himself with his left arm. Given [employer] of [employer] by EMS. Slightly tachycardiac on arrival otherwise vital signs and physical exam reassuring, reproducible chest wall tenderness into left axilla. Suspect most likely MSK etiology, however given age and risk factors will evaluate with labs, get CT for PE. EKG sinus tachycardia, appropriate intervals, No ST segment or T wave abnormalities to suggest occlusive UT. Labs reviewed as below, CBC with leukocytosis to 14, anemia slightly worse than baseline (10.2, trending down over past several months on record review). Patient denies any overt bleeding. CMP with mild hyponatremia, no actionable abnormalities. BNP borderline elevated at 357, unlikely of significance. Troponin negative x 2. Given risk factors and tachycardia, CT PE ordered and independently reviewed, no saddle embolus on my view, agree with radiology read below. On reassessment he reports pain has improved, requesting discharge home which is reasonable given reassuring workup here and current goals of care. Discharged home; discharge instructions including return precautions were reviewed with patient who verbalized understanding. All questions were answered and they are in full agreement with the plan. Imaging Data Radiologic Study: Imaging: CT Scan Radiologist's impression: IMPRESSION: No evidence of pulmonary embolism. Interval increase in size of bilateral pulmonary masses. New right adrenal mass. Lab Data Lab results reviewed: Yes I reviewed the patient's lab results. Labs: Laboratory Tests Range/Units 04/23/23 04/23/23 16:10 18:55 WBC (4.4-10.8) 10^3/uL 14.22 H RBC (4.36-5.78) 10^6/uL 4.84 Hgb (13.5-17.5) g/dL 10.2 L Hct (40.0-50.0) % 32.4 L MCV (80-95) fL 67 L MCH (27.0-33.0) pg 21.1 L MCHC (32.0-36.0) % 31.5 L RDW (11.8-14.1) % 17.2 H Plt Count (130-400) 10^3/uL 444 H MPV (8.0-11.0) fL 10.0 Immature Gran % 0.5 Neutrophils % 80.4 Lymphocytes % 11.5 Monocytes % 5.9 Eosinophils % 1.3 Basophils % 0.4 Nucleated RBC % (0.0-0.3) % 0.0 Absolute Neutrophils (1.2-6.7) 10^3/uL 11.43 H Absolute Lymphocytes (1.2-3.4) 10^3/uL 1.64 Absolute Monocytes (0.1-0.8) 10^3/uL 0.84 H Absolute Eosinophils (0.0-0.7) 10^3/uL 0.18 Absolute Basophils (0.0-0.2) 10^3/uL 0.06 RBC Morphology See Below Hypochromasia 1+ Anisocytosis 1+ Microcytosis 1+ APTT (23.6-32.8) sec 30.1 Sodium (136-145) mmol/L 133 L Potassium (3.5-5.1) mmol/L 3.9 Chloride (98-107) mmol/L 97 L Carbon Dioxide (21.0-32.0) mmol/L 25.8 Anion Gap (3-11) mmol/L 10.2 BUN (7-18) mg/dL 21 H Creatinine (0.70-1.30) mg/dL 0.8 Est GFR (CKD-EPI 2020) (mL/min/1.73m2) 102.58 Glucose (74-106) mg/dL 131 H Calcium (8.5-10.1) mg/dL 8.9 Magnesium (1.8-2.4) mg/dL 1.7 L Total Bilirubin (0.2-1.0) mg/dL 0.4 AST (15-37) U/L 36 ALT (16-63) U/L 14 L Alkaline Phosphatase (46-116) U/L 132 H Troponin I (<or=60) ng/L < 50 < 50 NT-Pro-B Natriuret Pep (<300) pg/mL 357 H Total Protein (6.4-8.2) g/dL 7.2 Albumin (3.4-5.0) g/dL 2.4 L HPI General Mode of arrival: EMS. Date/Time Provider Initiated Documentation: 04/23/23 16:09. Limitations to Documentation: no limitations. Information obtained by: patient. HPI Narrative: 57yo M with hx of advanced lung cancer, COPD, working on establishing with hospice, presenting for chest pain. Pain is aching, located in his left chest, and radiates to his left axilla. Has never experienced similar pain before. No shortness of breath, lightheadedness, syncope, or LE edema. No cough or rhinnorhea. No back pain, numbness, or focal weakness. Has fallen recently unsure if this is related. He is otherwise in his usual state of health with no fevers, chills, rash, nausea, vomiting, abdominal pain, or other concerns. Related Data Home Medications Medication Instructions Recorded Confirmed bupropion HCl 150 mg 24 hr tablet, 150 mg PO QAM 01/26/22 04/23/23 extended release hydroxyzine HCl 25 mg tablet 25 mg PO BID PRN 01/26/22 04/23/23 olanzapine 10 mg tablet (Zyprexa) 20 mg PO HS 01/26/22 04/20/23 trazodone 50 mg tablet 50 mg PO HS 01/26/22 04/20/23 sennosides 8.6 mg tablet (senna) 8.6 mg PO DAILY Opioid induced 11/07/22 04/20/23 constipation #90 tabs gabapentin 300 mg capsule 300 mg PO HS 11/23/22 04/23/23 levothyroxine 100 mcg tablet 100 mcg PO DAILY 11/23/22 04/23/23 magnesium oxide 400 mg (241.3 mg 400 mg PO DAILY 11/23/22 04/23/23 magnesium) tablet melatonin 10 mg capsule 10 mg PO HS 11/23/22 04/23/23 omeprazole 20 mg capsule,delayed 20 mg PO DAILY 11/23/22 04/20/23 release sertraline 100 mg tablet 150 mg PO DAILY 11/23/22 04/20/23 albuterol sulfate 90 mcg/actuation 2 puff inhalation QID PRN 12/19/22 04/23/23 aerosol inhaler shortness of breath or wheezing #8 grams lidocaine 5 % topical patch 1 patch topical DAILY #30 ea 04/06/23 04/23/23 acetaminophen 650 mg rectal 650 mg HI Q6H PRN fever, mild pain 04/20/23 04/23/23 suppository #6 supp acetaminophen 650 mg rectal 650 mg HI Q6H PRN fever, mild pain 04/20/23 04/23/23 suppository #6 supp bisacodyl 10 mg rectal suppository 10 mg HI daily PRN constipation #2 04/20/23 04/23/23 (Dulcolax (bisacodyl)) supp bisacodyl 10 mg rectal suppository 10 mg HI daily PRN constipation #2 04/20/23 04/23/23 (Dulcolax (bisacodyl)) supp fentanyl 75 mcg/hr transdermal 1 patch transdermal Q72H #10 ea 04/20/23 04/23/23 patch haloperidol lactate 2 mg/mL oral 1 mg (0.5 mL) PO Q6H PRN agitation 04/20/23 04/23/23 concentrate #15 mL haloperidol lactate 2 mg/mL oral 1 mg (0.5 mL) PO Q6H PRN agitation 04/20/23 04/23/23 concentrate #15 mL hyoscyamine sulfate 0.125 mg 0.125 - 0.25 mg (1 - 2 x 0.125 mg) 04/20/23 04/23/23 disintegrating tablet PO Q4H PRN secretions #24 tabs hyoscyamine sulfate 0.125 mg 0.125 - 0.25 mg (1 - 2 x 0.125 mg) 04/20/23 04/23/23 disintegrating tablet PO Q4H PRN secretions #24 tabs lorazepam 1 mg tablet 1 mg PO Q4H PRN anxiety, FLYNN or 04/20/23 04/23/23 nausea #6 tabs lorazepam 1 mg tablet 1 mg PO Q4H PRN anxiety, FLYNN or 04/20/23 04/23/23 nausea #6 tabs megestrol 20 mg tablet 20 mg PO BID #60 tabs 04/20/23 04/23/23 morphine concentrate 100 mg/5 mL 5 - 20 mg (0.25 - 1 mL) PO Q1-4H 04/20/23 04/23/23 (20 mg/mL) oral solution PRN moderate to severe pain or shortness of breath #30 mL morphine concentrate 100 mg/5 mL 5 - 20 mg (0.25 - 1 mL) PO Q1-4H 04/20/23 04/23/23 (20 mg/mL) oral solution PRN moderate to severe pain or shortness of breath #30 mL oxycodone 5 mg tablet 5 mg PO Q4H PRN pain #60 tabs 04/20/23 04/20/23 prochlorperazine maleate 10 mg 10 mg PO Q6H PRN nausea and 04/20/23 04/20/23 tablet vomiting #6 tabs prochlorperazine maleate 10 mg 10 mg PO Q6H PRN nausea and 04/20/23 04/20/23 tablet vomiting #6 tabs zolpidem 5 mg tablet (Ambien) 5 mg PO QHS #30 tabs 04/20/23 04/20/23 Previous Rx's Medication Instructions Recorded sennosides 8.6 mg tablet (senna) 8.6 mg PO DAILY Opioid induced 11/07/22 constipation #90 tabs albuterol sulfate 90 mcg/actuation 2 puff inhalation QID PRN 12/19/22 aerosol inhaler shortness of breath or wheezing #8 grams lidocaine 5 % topical patch 1 patch topical DAILY #30 ea 04/06/23 acetaminophen 650 mg rectal 650 mg HI Q6H PRN fever, mild pain 04/20/23 suppository #6 supp acetaminophen 650 mg rectal 650 mg HI Q6H PRN fever, mild pain 04/20/23 suppository #6 supp bisacodyl 10 mg rectal suppository 10 mg HI daily PRN constipation #2 04/20/23 (Dulcolax (bisacodyl)) supp bisacodyl 10 mg rectal suppository 10 mg HI daily PRN constipation #2 04/20/23 (Dulcolax (bisacodyl)) supp fentanyl 75 mcg/hr transdermal 1 patch transdermal Q72H #10 ea 04/20/23 patch haloperidol lactate 2 mg/mL oral 1 mg (0.5 mL) PO Q6H PRN agitation 04/20/23 concentrate #15 mL haloperidol lactate 2 mg/mL oral 1 mg (0.5 mL) PO Q6H PRN agitation 04/20/23 concentrate #15 mL hyoscyamine sulfate 0.125 mg 0.125 - 0.25 mg (1 - 2 x 0.125 mg) 04/20/23 disintegrating tablet PO Q4H PRN secretions #24 tabs hyoscyamine sulfate 0.125 mg 0.125 - 0.25 mg (1 - 2 x 0.125 mg) 04/20/23 disintegrating tablet PO Q4H PRN secretions #24 tabs lorazepam 1 mg tablet 1 mg PO Q4H PRN anxiety, FLYNN or 04/20/23 nausea #6 tabs lorazepam 1 mg tablet 1 mg PO Q4H PRN anxiety, FLYNN or 04/20/23 nausea #6 tabs megestrol 20 mg tablet 20 mg PO BID #60 tabs 04/20/23 morphine concentrate 100 mg/5 mL 5 - 20 mg (0.25 - 1 mL) PO Q1-4H 04/20/23 (20 mg/mL) oral solution PRN moderate to severe pain or shortness of breath #30 mL morphine concentrate 100 mg/5 mL 5 - 20 mg (0.25 - 1 mL) PO Q1-4H 04/20/23 (20 mg/mL) oral solution PRN moderate to severe pain or shortness of breath #30 mL oxycodone 5 mg tablet 5 mg PO Q4H PRN pain #60 tabs 04/20/23 prochlorperazine maleate 10 mg 10 mg PO Q6H PRN nausea and 04/20/23 tablet vomiting #6 tabs prochlorperazine maleate 10 mg 10 mg PO Q6H PRN nausea and 04/20/23 tablet vomiting #6 tabs zolpidem 5 mg tablet (Ambien) 5 mg PO QHS #30 tabs 04/20/23 Allergies Allergy/AdvReac Type Severity Reaction Status Date / Time Sulfa (Sulfonamide Allergy Severe Swelling/Ed Unverified 04/23/23 16:04 Antibiotics) jostin General Stated Complaint: Chest Pain ABA: 3 Review of Systems Narrative: see HPI PFSH All Active Problems (Updated 04/23/23 @ 19:39 by Lilliam Rico MD) Chest pain (Acute) Insomnia (Acute) Closed rib fracture (Acute) Unintentional weight loss (Acute) Hypoxia (Acute) Cancer related pain (Acute) Advanced care planning/counseling discussion (Acute) Palliative care patient (Acute) Bilateral lung cancer (Acute) Adenocarcinoma from 2020 biopsy COVID (Acute) Suicidal ideation (Acute) Depression (Chronic) Deliberate self-cutting (Acute) Other social stressor (Acute) Agitation (Acute) Hemoptysis (Acute) Thumb injury (Acute) Abnormal chest CT (Acute) GERD (gastroesophageal reflux disease) (Chronic) Hypercholesterolemia (Chronic) Suicidal thoughts (Acute) Leukocytosis (Chronic) Tobacco abuse (Chronic) Suicidal ideation (Acute) Anxiety (Chronic) Depression (Chronic) COPD (chronic obstructive pulmonary disease) (Chronic) Depression (Chronic) Bipolar disorder (Chronic) Depression with suicidal ideation (Acute) Medical History Depressed Stress Suicidal thoughts Shingles Suicidal ideations Traumatic pneumothorax 2017, chest tube x2 Bipolar disorder Surgical History History of ankle surgery S/P thoracostomy tube placement Social History Smoking/Tobacco Use Status: Current every day Tobacco Type: cigarettes Smoking risk assessment performed?: Yes Alcohol Intake: never Drug use: Daily Substance use type: marijuana Details: Pt reports cannabis use for relaxation, pain management Housing: apartment Current gender identity: male Do you feel safe at home: No (does not feel safe with self) Do you feel safe in your relationship?: Yes Additional Social history: Lives in a private apartment. Has [facility] case management Exam Narrative Exam Narrative: General: Alert, well appearing, well nourished, in no acute distress. Head: Normocephalic, atraumatic Neck: Trachea midline, Neck supple. Cardiac: RRR, no murmurs appreciated Chest: Left anterior chest wall with reproducible tenderness into axilla Resp: No respiratory distress. CTAB. Abd: Soft, non-distended, nontender : No suprapubic tenderness. Extremities: No deformities. No peripheral edema. Neurologic: GCS 15. Moves all extremities freely against gravity Course Vital Signs Vital signs: Vital Signs Pulse 102 H 04/23/23 15:56 Respiratory Rate 20 04/23/23 15:56 Blood Pressure 111/77 04/23/23 15:56 Pulse Oximetry 94 04/23/23 15:56 Pulse 102 H 04/23/23 15:56 Respiratory Rate 20 04/23/23 16:35 Respiratory Effort Normal 04/23/23 16:35 Respiratory Depth Normal 04/23/23 16:35 Respiratory Pattern Normal 04/23/23 16:35 Blood Pressure 111/77 04/23/23 15:56 Blood Pressure Position Supine 04/23/23 15:56 Pulse Oximetry 94 04/23/23 15:56 Oxygen Delivery Method Room Air 04/23/23 15:56 Oxygen Flow Rate 0 04/23/23 15:56 Pain Level 5 04/23/23 15:56 Lab/Test Results Lab/Test Results: Laboratory Tests Range/Units 04/23/23 16:10 WBC (4.4-10.8) 10^3/uL 14.22 H RBC (4.36-5.78) 10^6/uL 4.84 Hgb (13.5-17.5) g/dL 10.2 L Hct (40.0-50.0) % 32.4 L MCV (80-95) fL 67 L MCH (27.0-33.0) pg 21.1 L MCHC (32.0-36.0) % 31.5 L RDW (11.8-14.1) % 17.2 H Plt Count (130-400) 10^3/uL 444 H MPV (8.0-11.0) fL 10.0 Immature Gran % 0.5 Neutrophils % 80.4 Lymphocytes % 11.5 Monocytes % 5.9 Eosinophils % 1.3 Basophils % 0.4 Nucleated RBC % (0.0-0.3) % 0.0 Absolute Neutrophils (1.2-6.7) 10^3/uL 11.43 H Absolute Lymphocytes (1.2-3.4) 10^3/uL 1.64 Absolute Monocytes (0.1-0.8) 10^3/uL 0.84 H Absolute Eosinophils (0.0-0.7) 10^3/uL 0.18 Absolute Basophils (0.0-0.2) 10^3/uL 0.06 RBC Morphology See Below Hypochromasia 1+ Anisocytosis 1+ Microcytosis 1+ APTT (23.6-32.8) sec 30.1
[2023-04-23] MEDS: Normal Saline - Diluent 50 ML VIAL IJ (17:19)
[2023-04-23] MEDS: Omnipaque 350 MG/ML 100 ML BTL IJ (17:20)
[2023-04-23 19:17] LABS: Troponin I < 50 ng/L (<or=60)
== END 2023-04-23 20:01 | disposition home or self-care (01) ==
PROVIDERS: Emergency Provider Student in an Organized Health Care Education/Training Program; PCP Family Medicine
DX: R07.89 Other chest pain (principal); C34.92 Malignant neoplasm of unspecified part of left bronchus or lung; C34.91 Malignant neoplasm of unspecified part of right bronchus or lung; D64.9 Anemia, unspecified; J44.9 Chronic obstructive pulmonary disease, unspecified; R00.0 Tachycardia, unspecified; F17.210 Nicotine dependence, cigarettes, uncomplicated
CPT/HCPCS: 36415; 71275; 80053; 93005; 99285; 83735; 83880; 84484; 85025; 85730; 93010; 99284; J3490

== ENCOUNTER 2023-05-07 17:30 | Emergency (ER) | payer MEDICAID, SELFPAY ==
[2023-05-07 17:35] VITALS: BP 111/82; PULSE 116; RESP 18; TEMP 36.6; O2SAT 97
--- NOTE | 2023-05-07 17:41 | ED.GENADUL_ITS ---
Discharge Plan Disposition Patient Disposition: Home Condition: Stable Discharge Details Clinical Impression: Back contusion, Multiple falls, Right shoulder pain Primary Care Provider: Chung Perry ED Provider: Maddie Awad Home Meds and New Rx's Prescriptions: Continued lidocaine 5 % adhesive patch,medicated 1 patch topical DAILY Qty: 30 0RF Rx Instructions: leave on most painful area for up to 12 hrs for rib pain after fall sennosides [senna] 8.6 mg tablet 8.6 mg PO DAILY Qty: 90 3RF fentanyl 75 mcg/hr patch 72 hour 1 patch transdermal Q72H MDD 75 mcg/hr patch Qty: 10 0RF Rx Instructions: For cancer related pain oxycodone 5 mg tablet 5 mg PO Q4H MDD 30 mg PRN (Reason: pain) Qty: 60 0RF Rx Instructions: for cancer related pain zolpidem [Ambien] 5 mg tablet 5 mg PO QHS Qty: 30 0RF acetaminophen 650 mg suppository 650 mg [place] Q6H PRN (Reason: fever, mild pain) Qty: 6 0RF Rx Instructions: Hospice Patient hyoscyamine sulfate 0.125 mg tablet,disintegrating 0.125 - 0.25 mg PO Q4H PRN (Reason: secretions) Qty: 24 0RF Rx Instructions: Hospice Patient lorazepam 1 mg tablet 1 mg PO Q4H PRN (Reason: anxiety, FLYNN or nausea) Qty: 6 5RF Rx Instructions: Hospice Patient haloperidol lactate 2 mg/mL concentrate 1 mg PO Q6H PRN (Reason: agitation) Qty: 15 0RF Rx Instructions: Hospice Patient morphine concentrate 100 mg/5 mL (20 mg/mL) solution 5 - 20 mg PO Q1-4H MDD 5 mL PRN (Reason: moderate to severe pain or shortness of breath) Qty: 30 0RF Rx Instructions: Hospice Patient prochlorperazine maleate 10 mg tablet 10 mg PO Q6H PRN (Reason: nausea and vomiting) Qty: 6 0RF Rx Instructions: Hospice Patient bisacodyl [Dulcolax (bisacodyl)] 10 mg suppository 10 mg [place] daily PRN (Reason: constipation) Qty: 2 0RF Rx Instructions: Hospice Patient Insert 1 supp [place] Daily PRN constipation (no BM in 3 days) acetaminophen 650 mg suppository 650 mg [place] Q6H PRN (Reason: fever, mild pain) Qty: 6 0RF Rx Instructions: Hospice Patient morphine concentrate 100 mg/5 mL (20 mg/mL) solution 5 - 20 mg PO Q1-4H MDD 5 mL PRN (Reason: moderate to severe pain or shortness of breath) Qty: 30 0RF Rx Instructions: Hospice Patient prochlorperazine maleate 10 mg tablet 10 mg PO Q6H PRN (Reason: nausea and vomiting) Qty: 6 0RF Rx Instructions: Hospice Patient hyoscyamine sulfate 0.125 mg tablet,disintegrating 0.125 - 0.25 mg PO Q4H PRN (Reason: secretions) Qty: 24 0RF Rx Instructions: Hospice Patient bisacodyl [Dulcolax (bisacodyl)] 10 mg suppository 10 mg [place] daily PRN (Reason: constipation) Qty: 2 0RF Rx Instructions: Hospice Patient Insert 1 supp [place] Daily PRN constipation (no BM in 3 days) lorazepam 1 mg tablet 1 mg PO Q4H PRN (Reason: anxiety, FLYNN or nausea) Qty: 6 5RF Rx Instructions: Hospice Patient haloperidol lactate 2 mg/mL concentrate 1 mg PO Q6H PRN (Reason: agitation) Qty: 15 0RF Rx Instructions: Hospice Patient megestrol 20 mg tablet See Rx Instructions .ROUTE .COMPLEX Qty: 60 0RF Dose Instruction: TAKE 1 TABLET BY MOUTH TWICE A DAY Rx Instructions: TAKE 1 TABLET BY MOUTH TWICE A DAY hydroxyzine HCl 25 mg tablet 25 mg PO BID PRN olanzapine [Zyprexa] 10 mg Tablet 20 mg PO HS bupropion HCl 150 mg tablet extended release 24 hr 150 mg PO QAM trazodone 50 mg tablet 50 mg PO HS albuterol sulfate 90 mcg/actuation HFA aerosol inhaler 2 puff inhalation QID PRN (Reason: shortness of breath or wheezing) Qty: 8 0RF Rx Instructions: Use 1 or 2 puffs every 4-6 hours as needed for shortness of breath or wheez ing. sertraline 100 mg tablet 150 mg PO DAILY levothyroxine 100 mcg tablet 100 mcg PO DAILY magnesium oxide 400 mg (241.3 mg magnesium) tablet 400 mg PO DAILY Patient Comments: states not taking 02/27/23 gabapentin 300 mg capsule 300 mg PO HS omeprazole 20 mg capsule,delayed release(DR/EC) 20 mg PO DAILY melatonin 10 mg capsule 10 mg PO HS Discharge Instructions Instructions: Contusion in Adults (ED), Shoulder Pain (ED) Additional Instructions: Continue icyv-avk-soxheay pain medication as directed. Can use heat or ice to affected area for comfort Continue to use your walker at all times for gait safety and stability Referrals: Chung Perry [Primary Care Provider] - Discharge Data Discharge Date/Time-TO BE ENTERED AT DEPARTURE: 05/07/23 21:03 Medical Decision Making Frequent utilizer of the ED reporting multiple falls over the past several weeks complaining of low back pain and right shoulder pain. No obvious deformities he is able to ambulate with a front wheeled walker. Will obtain x-ray of the shoulder and LS-spine. X-rays are revealed with no acute fractures or dislocations. Results are reviewed with patient he will continue lixr-bzi-mecklph pain medication and advised to try heat or ice as directed for symptoms. Encouraged to continue using walker when ambulating Medical Records Medical records reviewed: Yes I reviewed the patient's medical records. Imaging Data Radiologic Study: Imaging: X-Ray Radiologist's impression: Exam(s) PROCEDURE INFORMATION: Exam: XR Lumbosacral Spine Exam date and time: 05/07/2023 7:23 PM Age: 57 years old Clinical indication: Injury or trauma; Blunt trauma (contusions or hematomas); Injury date: 05/07/23; Injury details: Multiple falls, back pain TECHNIQUE: Imaging protocol: Radiologic exam of the lumbosacral spine. Views: 2 or 3 views. COMPARISON: CT ABDOMEN PELVIS W 02/14/2022 3:12 PM FINDINGS: Bones/joints: There is no evidence of acute fracture.There is no evidence of malalignment or dislocation. Stable appearance of the vertebral bodies since 2021. Intervertebral disc space narrowing L1 through L3 consistent with degenerative disc disease. Soft tissues: Unremarkable. IMPRESSION: 1. There is no evidence of acute fracture.There is no evidence of malalignment or dislocation. 2. Intervertebral disc space narrowing L1 through L3 consistent with degenerative disc disease. Dictated and Authenticated by: Boone Espinal MD. Ordering:ELIZABETH Perkins MD Exam(s) PROCEDURE INFORMATION: Exam: XR Right Shoulder Exam date and time: 05/07/2023 7:26 PM Age: 57 years old Clinical indication: Pain; Shoulder; Right; Patient HX: Fall, injury TECHNIQUE: Imaging protocol: Radiologic exam of the right shoulder. Views: 2 or more views. COMPARISON: CT CHEST PE CTA 04/23/2023 5:09 PM FINDINGS: Bones/joints: Degenerative changes in the acromioclavicular joint and glenohumeral joint. There is no evidence of acute fracture.There is no evidence of malalignment or dislocation. Soft tissues: Normal. IMPRESSION: There is no evidence of acute fracture.There is no evidence of malalignment or dislocation. Dictated and Authenticated by: Boone Espinal MD. Ordering:ELIZABETH Perkins MD Lab Data Lab results reviewed: Yes I reviewed the patient's lab results. HPI General Mode of arrival: ambulatory . Date/Time Provider Initiated Documentation: 05/07/23 17:41 . Limitations to Documentation: no limitations . Information obtained by: patient . HPI Narrative: This is a 57-year-old male frequent utilizer of the emergency department comes in for complaints of low back pain and right shoulder pain after suffering multiple falls at home. He denies any head injury any cervical spine tenderness or neck pain. He has been eating and drinking. Taking suad-cwo-qbteddl pain medication as directed with no improvement in his symptoms Related Data Home Medications Medication Instructions Recorded Confirmed bupropion HCl 150 mg 24 hr tablet, 150 mg PO QAM 01/26/22 05/07/23 extended release hydroxyzine HCl 25 mg tablet 25 mg PO BID PRN 01/26/22 05/07/23 olanzapine 10 mg tablet (Zyprexa) 20 mg PO HS 01/26/22 05/07/23 trazodone 50 mg tablet 50 mg PO HS 01/26/22 05/07/23 sennosides 8.6 mg tablet (senna) 8.6 mg PO DAILY Opioid induced 11/07/22 05/07/23 constipation #90 tabs gabapentin 300 mg capsule 300 mg PO HS 11/23/22 05/07/23 levothyroxine 100 mcg tablet 100 mcg PO DAILY 11/23/22 05/07/23 magnesium oxide 400 mg (241.3 mg 400 mg PO DAILY 11/23/22 05/07/23 magnesium) tablet melatonin 10 mg capsule 10 mg PO HS 11/23/22 05/07/23 omeprazole 20 mg capsule,delayed 20 mg PO DAILY 11/23/22 05/07/23 release sertraline 100 mg tablet 150 mg PO DAILY 11/23/22 05/07/23 albuterol sulfate 90 mcg/actuation 2 puff inhalation QID PRN 12/19/22 05/07/23 aerosol inhaler shortness of breath or wheezing #8 grams lidocaine 5 % topical patch 1 patch topical DAILY #30 ea 04/06/23 05/07/23 acetaminophen 650 mg rectal 650 mg [place] Q6H PRN fever, mild pain 04/20/23 05/07/23 suppository #6 supp acetaminophen 650 mg rectal 650 mg [place] Q6H PRN fever, mild pain 04/20/23 05/07/23 suppository #6 supp bisacodyl 10 mg rectal suppository 10 mg [place] daily PRN constipation #2 04/20/23 05/07/23 (Dulcolax (bisacodyl)) supp bisacodyl 10 mg rectal suppository 10 mg [place] daily PRN constipation #2 04/20/23 05/07/23 (Dulcolax (bisacodyl)) supp fentanyl 75 mcg/hr transdermal 1 patch transdermal Q72H #10 ea 04/20/23 05/07/23 patch haloperidol lactate 2 mg/mL oral 1 mg (0.5 mL) PO Q6H PRN agitation 04/20/23 05/07/23 concentrate #15 mL haloperidol lactate 2 mg/mL oral 1 mg (0.5 mL) PO Q6H PRN agitation 04/20/23 05/07/23 concentrate #15 mL hyoscyamine sulfate 0.125 mg 0.125 - 0.25 mg (1 - 2 x 0.125 mg) 04/20/23 04/23/23 disintegrating tablet PO Q4H PRN secretions #24 tabs hyoscyamine sulfate 0.125 mg 0.125 - 0.25 mg (1 - 2 x 0.125 mg) 04/20/23 05/07/23 disintegrating tablet PO Q4H PRN secretions #24 tabs lorazepam 1 mg tablet 1 mg PO Q4H PRN anxiety, FLYNN or 04/20/23 05/07/23 nausea #6 tabs lorazepam 1 mg tablet 1 mg PO Q4H PRN anxiety, FLNYN or 04/20/23 05/07/23 nausea #6 tabs morphine concentrate 100 mg/5 mL 5 - 20 mg (0.25 - 1 mL) PO Q1-4H 04/20/23 05/07/23 (20 mg/mL) oral solution PRN moderate to severe pain or shortness of breath #30 mL morphine concentrate 100 mg/5 mL 5 - 20 mg (0.25 - 1 mL) PO Q1-4H 04/20/23 05/07/23 (20 mg/mL) oral solution PRN moderate to severe pain or shortness of breath #30 mL oxycodone 5 mg tablet 5 mg PO Q4H PRN pain #60 tabs 04/20/23 05/07/23 prochlorperazine maleate 10 mg 10 mg PO Q6H PRN nausea and 04/20/23 05/07/23 tablet vomiting #6 tabs prochlorperazine maleate 10 mg 10 mg PO Q6H PRN nausea and 04/20/23 05/07/23 tablet vomiting #6 tabs zolpidem 5 mg tablet (Ambien) 5 mg PO QHS #30 tabs 04/20/23 05/07/23 megestrol 20 mg tablet See Rx Instructions .Route 05/07/23 05/07/23 .COMPLEX #60 tabs Previous Rx's Medication Instructions Recorded sennosides 8.6 mg tablet (senna) 8.6 mg PO DAILY Opioid induced 11/07/22 constipation #90 tabs albuterol sulfate 90 mcg/actuation 2 puff inhalation QID PRN 12/19/22 aerosol inhaler shortness of breath or wheezing #8 grams lidocaine 5 % topical patch 1 patch topical DAILY #30 ea 04/06/23 acetaminophen 650 mg rectal 650 mg [place] Q6H PRN fever, mild pain 04/20/23 suppository #6 supp acetaminophen 650 mg rectal 650 mg [place] Q6H PRN fever, mild pain 04/20/23 suppository #6 supp bisacodyl 10 mg rectal suppository 10 mg [place] daily PRN constipation #2 04/20/23 (Dulcolax (bisacodyl)) supp bisacodyl 10 mg rectal suppository 10 mg [place] daily PRN constipation #2 04/20/23 (Dulcolax (bisacodyl)) supp fentanyl 75 mcg/hr transdermal 1 patch transdermal Q72H #10 ea 04/20/23 patch haloperidol lactate 2 mg/mL oral 1 mg (0.5 mL) PO Q6H PRN agitation 04/20/23 concentrate #15 mL haloperidol lactate 2 mg/mL oral 1 mg (0.5 mL) PO Q6H PRN agitation 04/20/23 concentrate #15 mL hyoscyamine sulfate 0.125 mg 0.125 - 0.25 mg (1 - 2 x 0.125 mg) 04/20/23 disintegrating tablet PO Q4H PRN secretions #24 tabs hyoscyamine sulfate 0.125 mg 0.125 - 0.25 mg (1 - 2 x 0.125 mg) 04/20/23 disintegrating tablet PO Q4H PRN secretions #24 tabs lorazepam 1 mg tablet 1 mg PO Q4H PRN anxiety, FLYNN or 04/20/23 nausea #6 tabs lorazepam 1 mg tablet 1 mg PO Q4H PRN anxiety, FLYNN or 04/20/23 nausea #6 tabs morphine concentrate 100 mg/5 mL 5 - 20 mg (0.25 - 1 mL) PO Q1-4H 04/20/23 (20 mg/mL) oral solution PRN moderate to severe pain or shortness of breath #30 mL morphine concentrate 100 mg/5 mL 5 - 20 mg (0.25 - 1 mL) PO Q1-4H 04/20/23 (20 mg/mL) oral solution PRN moderate to severe pain or shortness of breath #30 mL oxycodone 5 mg tablet 5 mg PO Q4H PRN pain #60 tabs 04/20/23 prochlorperazine maleate 10 mg 10 mg PO Q6H PRN nausea and 04/20/23 tablet vomiting #6 tabs prochlorperazine maleate 10 mg 10 mg PO Q6H PRN nausea and 04/20/23 tablet vomiting #6 tabs zolpidem 5 mg tablet (Ambien) 5 mg PO QHS #30 tabs 04/20/23 megestrol 20 mg tablet See Rx Instructions .Route 05/07/23 .COMPLEX #60 tabs Allergies Allergy/AdvReac Type Severity Reaction Status Date / Time Sulfa (Sulfonamide Allergy Severe Swelling/Ed Unverified 05/07/23 19:57 Antibiotics) jostin General Stated Complaint: Fall/Non TraumaCriteria ABA: 4 Review of Systems All systems reviewed & are unremarkable except as noted in HPI and below PFSH All Active Problems (Updated 05/08/23 @ 00:05 by STEVIE LEE) Right shoulder pain (Acute) Multiple falls (Acute) Back contusion (Acute) Chest pain (Acute) Insomnia (Acute) Unintentional weight loss (Acute) Hypoxia (Acute) Cancer related pain (Acute) Advanced care planning/counseling discussion (Acute) Palliative care patient (Acute) Bilateral lung cancer (Acute) Adenocarcinoma from 2020 biopsy COVID (Acute) Suicidal ideation (Acute) Depression (Chronic) Deliberate self-cutting (Acute) Other social stressor (Acute) Agitation (Acute) Hemoptysis (Acute) Thumb injury (Acute) Abnormal chest CT (Acute) GERD (gastroesophageal reflux disease) (Chronic) Hypercholesterolemia (Chronic) Suicidal thoughts (Acute) Leukocytosis (Chronic) Tobacco abuse (Chronic) Suicidal ideation (Acute) Anxiety (Chronic) Depression (Chronic) COPD (chronic obstructive pulmonary disease) (Chronic) Depression (Chronic) Bipolar disorder (Chronic) Depression with suicidal ideation (Acute) Medical History Depressed Stress Suicidal thoughts Shingles Suicidal ideations Traumatic pneumothorax 2017, chest tube x2 Bipolar disorder Surgical History History of ankle surgery S/P thoracostomy tube placement Social History Smoking/Tobacco Use Status: Current every day Tobacco Type: cigarettes Smoking risk assessment performed?: Yes Alcohol Intake: never Drug use: Daily Substance use type: marijuana Details: Pt reports cannabis use for relaxation, pain management Housing: apartment Current gender identity: male Do you feel safe at home: No (does not feel safe with self) Do you feel safe in your relationship?: Yes Additional Social history: Lives in a private apartment. Has [facility] case management Exam Narrative Exam Narrative: Frail chronically ill appearing male older than stated age thin skin is pale warm dry well-perfused no acute distress head is atraumatic neck with no JVD full range of motion no tenderness on palpation respirations are even and unlabored cardiovascular regular rate and rhythm moves all extremities. Skin with no rashes or lesions. Back normal lordosis no CVA tenderness, reports tenderness to his low back on palpation bilateral. Course Vital Signs Vital signs: Vital Signs Temperature 36.6 C 05/07/23 17:35 Pulse 116 H 05/07/23 17:35 Respiratory Rate 18 05/07/23 17:35 Blood Pressure 111/82 05/07/23 17:35 Pulse Oximetry 97 05/07/23 17:35 Temperature 36.6 C 05/07/23 17:35 Temperature Source Temporal Artery Scan 05/07/23 17:35 Pulse 116 H 05/07/23 17:35 Respiratory Rate 18 05/07/23 17:35 Blood Pressure 111/82 05/07/23 17:35 Blood Pressure Position Sitting 05/07/23 17:35 Pulse Oximetry 97 05/07/23 17:35 Oxygen Delivery Method Room Air 05/07/23 17:35 Oxygen Flow Rate 0 05/07/23 17:35
--- NOTE | 2023-05-07 17:45 | DI.RAD_ITS ---
Exam(s) XR SHOULDER RT COMPLETE 2+V EXAM: XR SHOULDER RT COMPLETE 2+V CLINICAL HISTORY: fall injury. TECHNIQUE: 2D digital imaging was performed. COMPARISON: No exams were available for comparison FINDINGS: Five views No evidence of fracture or dislocation or abnormal narrowing of the subacromial space. However, ther e are 2 calcific densities seen in the soft tissue adjacent to the greater tuberosity. Probably cons istent with calcific rotator cuff tendinitis. Mild degenerative changes in the AC joint. Bone density normal. No osseous lesions. IMPRESSION: Two small calcific densities adjacent to the greater tuberosity probably represent calcific rotator c uff tendinitis. DATA REPOSITORY: RADIATION DOSE DELIVERED:
--- NOTE | 2023-05-07 17:45 | DI.RAD_ITS ---
Exam(s) XR LUMBAR SPINE AP, LAT EXAM: XR LUMBAR SPINE AP, LAT CLINICAL HISTORY: fall, back pain. TECHNIQUE: 2D digital imaging was performed. COMPARISON: No exams were available for comparison FINDINGS: 3 views No evidence of fracture nor listhesis nor pars defects. Mild disc space narrowing. Mild scoliosis w hich may be positional. SI joints unremarkable. IMPRESSION: No evidence of acute fractures. Mild disc space narrowing noted in the upper lumbar spine. DATA REPOSITORY: RADIATION DOSE DELIVERED:
--- NOTE | 2023-05-07 20:14 | DI.VRAD_ITS ---
PROCEDURE INFORMATION: Exam: XR Lumbosacral Spine Exam date and time: 05/07/2023 7:23 PM Age: 57 years old Clinical indication: Injury or trauma; Blunt trauma (contusions or hematomas); Injury date: 05/07/23; Injury details: Multiple falls, back pain TECHNIQUE: Imaging protocol: Radiologic exam of the lumbosacral spine. Views: 2 or 3 views. COMPARISON: CT ABDOMEN PELVIS W 02/14/2022 3:12 PM FINDINGS: Bones/joints: There is no evidence of acute fracture.There is no evidence of malalignment or dislocation. Stable appearance of the vertebral bodies since 2021. Intervertebral disc space narrowing L1 through L3 consistent with degenerative disc disease. Soft tissues: Unremarkable. IMPRESSION: 1. There is no evidence of acute fracture.There is no evidence of malalignment or dislocation. 2. Intervertebral disc space narrowing L1 through L3 consistent with degenerative disc disease. Dictated and Authenticated by: Boone Espinal MD. Ordering:ELIZABETH Perkins MD
--- NOTE | 2023-05-07 20:14 | DI.VRAD_ITS ---
PROCEDURE INFORMATION: Exam: XR Right Shoulder Exam date and time: 05/07/2023 7:26 PM Age: 57 years old Clinical indication: Pain; Shoulder; Right; Patient HX: Fall, injury TECHNIQUE: Imaging protocol: Radiologic exam of the right shoulder. Views: 2 or more views. COMPARISON: CT CHEST PE CTA 04/23/2023 5:09 PM FINDINGS: Bones/joints: Degenerative changes in the acromioclavicular joint and glenohumeral joint. There is no evidence of acute fracture.There is no evidence of malalignment or dislocation. Soft tissues: Normal. IMPRESSION: There is no evidence of acute fracture.There is no evidence of malalignment or dislocation. Dictated and Authenticated by: Boone Espinal MD. Ordering:ELIZABETH Perkins MD
== END 2023-05-07 21:03 | disposition home or self-care (01) ==
PROVIDERS: Emergency Provider Nurse Practitioner Acute Care; PCP Family Medicine
DX: S30.0XXA Contusion of lower back and pelvis, initial encounter (principal); W19.XXXA Unspecified fall, initial encounter; M25.511 Pain in right shoulder
CPT/HCPCS: 99284; 72100; 73030; 99283

== ENCOUNTER 2023-05-23 11:39 | Observation (INO) | payer MEDICAID, SELFPAY ==
[2023-05-23 11:39] VITALS: BP 126/93; PULSE 100; RESP 22; TEMP 37.2; O2SAT 94
--- NOTE | 2023-05-23 12:56 | DI.CT_ITS ---
Exam(s) CT CHEST/ABD/PEL W CT THORACIC LUMBAR SPINE REC EXAM: CT CHEST/ABD/PEL W CLINICAL HISTORY: trauma, fall, posterior rib and right pelvic pain. TECHNIQUE: Imaging Protocol: Axial computed tomography images with coronal and sagittal reformatted images were created and reviewed CONTRAST MATERIAL: Intravenous: Omnipaque 350 Contrast volume:100 ml Oral: yes / no COMPARISON: CT CT ABDOMEN PELVIS W from 02/14/[address] CHEST PE CTA from 08/05/[address] CHEST PE CTA from 10/06/[address] CHEST PE CTA from 02/27/[address] CHEST PE CTA from 04/23/[address] THORACIC LUMBAR SPINE REC from 05/23/2023 FINDINGS: CHEST: Pulmonary parenchyma: Continued enlargement of left over upper lobe mass again showing vascular atten uation and bronchial obstruction. Some interval increase in size of right upper and lower lobe jacek s. Severe emphysematous changes noted. Pleura: No effusion or pneumothorax. Lymph nodes: Worsening of adenopathy, pre carinal node measuring 2.6 cm. Right hilar node measuring 3 cm. Aorta: Thoracic portion non-dilated. Pulmonary arteries: No evidence of emboli. Pulmonary arterial and venous attenuation by masses. Heart: No pericardial effusion. Bones: Old left rib fractures. No acute rib or spine fractures seen. Unremarkable for age. No lyti c or blastic lesions.No compression fractures. Soft tissues: Unremarkable. ABDOMEN and PELVIS: Liver: Normal density. Tiny cysts. No suspicious mass. Gallbladder and biliary tract: No evidence of stones or wall thickening. No biliary dilatation. Pancreas: Normal density, no abnormal calcifications or inflammatory process. Spleen: Normal. Kidneys: Normal size, contour and axis. No radiodense stones hip. No obstructive uropathy. No suspic ious masses seen. Adrenal glands: The several interval enlargement of right adrenal mass. Aorta: Abdominal portion non-dilated. Severe atherosclerotic changes with mural thrombus. Lymph nodes: Within normal limits. Soft tissues: Unremarkable. Bladder: Unremarkable. Bowel: Ileo ileal intussusception in the low pelvis causing mild small bowel dilatation. Distal small bowel is decompressed. No wall thickening. Ascending colon contains some fluid. Peritoneal cavity: No ascites. No focal collection. No mesenteric inflammatory response. Bones: Nondisplaced fracture at the tip of the right L2 transverse process. This was not present on the 2021 CT abdomen pelvis. It was not included in the field of view of the chest CTs. No additiona l fractures. Reproductive organs: Within normal limits. IMPRESSION: Chest CT: No acute posttraumatic abnormality. Old left rib fractures. Continued increase in size of b ilateral lung masses and adenopathy. No pulmonary emboli. Abdomen pelvic CT: Nondisplaced fracture of right transverse process of L2. No additional fractures i dentified. Ileo ileal intussusception in the low pelvis causing mild small bowel dilatation. Findings called to Dr. Majano of the emergency department. RADIATION DOSE DELIVERED: Total DLP DATA REPOSITORY: All CT scans at this facility are submitted to the National Radiology Data Registry (NRDR) Dose Index Registry (DIR) with the [employer] ([employer]). RADIATION OPTIMIZATION: All CT scans at this facility use at least one of these dose optimization te chniques: automated exposure control; mA and/or kV adjustment per patient size (includes targeted exa ms where dose is matched to clinical indication); or iterative reconstruction.
[2023-05-23 13:04] LABS: Abs Immature Grans 0.11 10^3/uL (0.0-0.06); Absolute Eosinophil Count 0.17 10^3/uL (0.0-0.7); Absolute Lymphocyte Count 1.72 10^3/uL (1.2-3.4); Basophils % 0.5; Eosinophils % 1.1; HCT 41.9 % (40.0-50.0); HGB 13.1 g/dL (13.5-17.5); Immature Grans % 0.7; Lymphocytes % 11.1; MCH 20.6 pg (27.0-33.0); MCHC 31.3 % (32.0-36.0); MCV 66 fL (80-95); MPV 10.5 fL (8.0-11.0); Neutrophils % 81.6; RDW 19.5 % (11.8-14.1); RDW-SD 41.9 fL; WBC 15.52 10^3/uL (4.4-10.8)
[2023-05-23 13:05] LABS: Absolute Basophil Count 0.08 10^3/uL (0.0-0.2); Absolute Monocyte Count 0.78 10^3/uL (0.1-0.8); Absolute Neutrophil Count 12.66 10^3/uL (1.2-6.7)
[2023-05-23] MEDS: ACETAMINOPHEN 1,000 MG/100 ML BTL 400 MG IVPB (13:05)
[2023-05-23 13:12] LABS: Platelet Count 778 10^3/uL (130-400)
[2023-05-23 13:21] LABS: ALT 31 U/L (16-63); AST 28 U/L (15-37); Albumin 3.3 g/dL (3.4-5.0); Alkaline Phosphatase 154 U/L (46-116); Anion Gap 12.9 mmol/L (3-11); BUN 21 mg/dL (7-18); Bilirubin, Total 0.6 mg/dL (0.2-1.0); CO2 23.1 mmol/L (21.0-32.0); CREATININE 0.8 mg/dL (0.70-1.30); Calcium 10.2 mg/dL (8.5-10.1); Chloride 96 mmol/L (98-107); Estimated GFR 102.58 (mL/min/1.73m2); Glucose 125 mg/dL (74-106); Potassium 3.6 mmol/L (3.5-5.1); Sodium 132 mmol/L (136-145); Total Protein 9.5 g/dL (6.4-8.2)
[2023-05-23 13:25] LABS: RBC 6.35 10^6/uL (4.36-5.78)
[2023-05-23 13:26] LABS: Diff Comment Diff Reviewed; Microcytosis 2+
--- NOTE | 2023-05-23 13:57 | W.ED.GENAD ---
HPI General Stated Complaint: Fall/Non TraumaCriteria Mode of arrival: ambulatory. ABA: 3 Date/Time Provider Initiated Documentation: 05/23/23 12:25. Limitations to Documentation: no limitations. Information obtained by: patient. HPI Narrative: 57-year-old male with history of multiple medical problems including bilateral lung cancer, here after falls last night with chief complaint of back pain. Patient notes pain in his upper and low back after injuring himself during falls last night. He states he got up from bed and his legs seem to give out. He states he may have hit his head but did not lose consciousness. He denies headache. No neck pain. He does note some associated right buttock and hip pain. Related Data Home Medications Medication Instructions Recorded Confirmed bupropion HCl 150 mg 24 hr tablet, 150 mg PO QAM 01/26/22 05/23/23 extended release hydroxyzine HCl 25 mg tablet 25 mg PO BID PRN 01/26/22 05/23/23 olanzapine 10 mg tablet (Zyprexa) 20 mg PO HS 01/26/22 05/23/23 trazodone 50 mg tablet 50 mg PO HS 01/26/22 05/23/23 sennosides 8.6 mg tablet (senna) 8.6 mg PO DAILY Opioid induced 11/07/22 05/23/23 constipation #90 tabs gabapentin 300 mg capsule 300 mg PO HS 11/23/22 05/23/23 levothyroxine 100 mcg tablet 100 mcg PO DAILY 11/23/22 05/23/23 magnesium oxide 400 mg (241.3 mg 400 mg PO DAILY 11/23/22 05/23/23 magnesium) tablet melatonin 10 mg capsule 10 mg PO HS 11/23/22 05/23/23 omeprazole 20 mg capsule,delayed 20 mg PO DAILY 11/23/22 05/23/23 release sertraline 100 mg tablet 150 mg PO DAILY 11/23/22 05/23/23 albuterol sulfate 90 mcg/actuation 2 puff inhalation QID PRN 12/19/22 05/23/23 aerosol inhaler shortness of breath or wheezing #8 grams lidocaine 5 % topical patch 1 patch topical DAILY #30 ea 04/06/23 05/23/23 acetaminophen 650 mg rectal 650 mg NM Q6H PRN fever, mild pain 04/20/23 05/23/23 suppository #6 supp acetaminophen 650 mg rectal 650 mg NM Q6H PRN fever, mild pain 04/20/23 05/23/23 suppository #6 supp bisacodyl 10 mg rectal suppository 10 mg NM daily PRN constipation #2 04/20/23 05/23/23 (Dulcolax (bisacodyl)) supp bisacodyl 10 mg rectal suppository 10 mg NM daily PRN constipation #2 04/20/23 05/23/23 (Dulcolax (bisacodyl)) supp fentanyl 75 mcg/hr transdermal 1 patch transdermal Q72H #10 ea 04/20/23 05/23/23 patch haloperidol lactate 2 mg/mL oral 1 mg (0.5 mL) PO Q6H PRN agitation 04/20/23 05/23/23 concentrate #15 mL haloperidol lactate 2 mg/mL oral 1 mg (0.5 mL) PO Q6H PRN agitation 04/20/23 05/23/23 concentrate #15 mL hyoscyamine sulfate 0.125 mg 0.125 - 0.25 mg (1 - 2 x 0.125 mg) 04/20/23 05/23/23 disintegrating tablet PO Q4H PRN secretions #24 tabs hyoscyamine sulfate 0.125 mg 0.125 - 0.25 mg (1 - 2 x 0.125 mg) 04/20/23 05/23/23 disintegrating tablet PO Q4H PRN secretions #24 tabs lorazepam 1 mg tablet 1 mg PO Q4H PRN anxiety, FLYNN or 04/20/23 05/23/23 nausea #6 tabs lorazepam 1 mg tablet 1 mg PO Q4H PRN anxiety, FLYNN or 04/20/23 05/23/23 nausea #6 tabs morphine concentrate 100 mg/5 mL 5 - 20 mg (0.25 - 1 mL) PO Q1-4H 04/20/23 05/23/23 (20 mg/mL) oral solution PRN moderate to severe pain or shortness of breath #30 mL morphine concentrate 100 mg/5 mL 5 - 20 mg (0.25 - 1 mL) PO Q1-4H 04/20/23 05/23/23 (20 mg/mL) oral solution PRN moderate to severe pain or shortness of breath #30 mL oxycodone 5 mg tablet 5 mg PO Q4H PRN pain #60 tabs 04/20/23 05/23/23 prochlorperazine maleate 10 mg 10 mg PO Q6H PRN nausea and 04/20/23 05/23/23 tablet vomiting #6 tabs prochlorperazine maleate 10 mg 10 mg PO Q6H PRN nausea and 04/20/23 05/23/23 tablet vomiting #6 tabs megestrol 20 mg tablet See Rx Instructions .Route 05/07/23 05/23/23 .COMPLEX #60 tabs fentanyl 25 mcg/hr transdermal 1 patch transdermal Q72H #6 ea 05/11/23 05/23/23 patch zolpidem 5 mg tablet (Ambien) 5 mg PO QHS #30 tabs 05/11/23 05/23/23 Previous Rx's Medication Instructions Recorded sennosides 8.6 mg tablet (senna) 8.6 mg PO DAILY Opioid induced 11/07/22 constipation #90 tabs albuterol sulfate 90 mcg/actuation 2 puff inhalation QID PRN 12/19/22 aerosol inhaler shortness of breath or wheezing #8 grams lidocaine 5 % topical patch 1 patch topical DAILY #30 ea 04/06/23 acetaminophen 650 mg rectal 650 mg NM Q6H PRN fever, mild pain 04/20/23 suppository #6 supp acetaminophen 650 mg rectal 650 mg NM Q6H PRN fever, mild pain 04/20/23 suppository #6 supp bisacodyl 10 mg rectal suppository 10 mg NM daily PRN constipation #2 04/20/23 (Dulcolax (bisacodyl)) supp bisacodyl 10 mg rectal suppository 10 mg NM daily PRN constipation #2 04/20/23 (Dulcolax (bisacodyl)) supp fentanyl 75 mcg/hr transdermal 1 patch transdermal Q72H #10 ea 04/20/23 patch haloperidol lactate 2 mg/mL oral 1 mg (0.5 mL) PO Q6H PRN agitation 04/20/23 concentrate #15 mL haloperidol lactate 2 mg/mL oral 1 mg (0.5 mL) PO Q6H PRN agitation 04/20/23 concentrate #15 mL hyoscyamine sulfate 0.125 mg 0.125 - 0.25 mg (1 - 2 x 0.125 mg) 04/20/23 disintegrating tablet PO Q4H PRN secretions #24 tabs hyoscyamine sulfate 0.125 mg 0.125 - 0.25 mg (1 - 2 x 0.125 mg) 04/20/23 disintegrating tablet PO Q4H PRN secretions #24 tabs lorazepam 1 mg tablet 1 mg PO Q4H PRN anxiety, FLYNN or 04/20/23 nausea #6 tabs lorazepam 1 mg tablet 1 mg PO Q4H PRN anxiety, FLYNN or 04/20/23 nausea #6 tabs morphine concentrate 100 mg/5 mL 5 - 20 mg (0.25 - 1 mL) PO Q1-4H 04/20/23 (20 mg/mL) oral solution PRN moderate to severe pain or shortness of breath #30 mL morphine concentrate 100 mg/5 mL 5 - 20 mg (0.25 - 1 mL) PO Q1-4H 04/20/23 (20 mg/mL) oral solution PRN moderate to severe pain or shortness of breath #30 mL oxycodone 5 mg tablet 5 mg PO Q4H PRN pain #60 tabs 04/20/23 prochlorperazine maleate 10 mg 10 mg PO Q6H PRN nausea and 04/20/23 tablet vomiting #6 tabs prochlorperazine maleate 10 mg 10 mg PO Q6H PRN nausea and 04/20/23 tablet vomiting #6 tabs megestrol 20 mg tablet See Rx Instructions .Route 05/07/23 .COMPLEX #60 tabs fentanyl 25 mcg/hr transdermal 1 patch transdermal Q72H #6 ea 05/11/23 patch zolpidem 5 mg tablet (Ambien) 5 mg PO QHS #30 tabs 05/11/23 Allergies Allergy/AdvReac Type Severity Reaction Status Date / Time Sulfa (Sulfonamide Allergy Severe Swelling/Ed Unverified 05/07/23 19:57 Antibiotics) jostin Review of Systems Cardiovascular Cardiovascular: Denies dyspnea Respiratory Respiratory: Denies dyspnea Musculoskeletal Musculoskeletal: Reports as per HPI PFSH All Active Problems (Updated 05/23/23 @ 15:46 by Francisco Majano MD) Fall (Acute) Intussusception of colon (Acute) Lumbar transverse process fracture (Acute) Weakness (Acute) Right shoulder pain (Acute) Multiple falls (Acute) Back contusion (Acute) Chest pain (Acute) Insomnia (Acute) Unintentional weight loss (Acute) Hypoxia (Acute) Cancer related pain (Acute) Advanced care planning/counseling discussion (Acute) Palliative care patient (Acute) Bilateral lung cancer (Acute) Adenocarcinoma from 2020 biopsy COVID (Acute) Suicidal ideation (Acute) Depression (Chronic) Deliberate self-cutting (Acute) Other social stressor (Acute) Agitation (Acute) Hemoptysis (Acute) Thumb injury (Acute) Abnormal chest CT (Acute) GERD (gastroesophageal reflux disease) (Chronic) Hypercholesterolemia (Chronic) Suicidal thoughts (Acute) Leukocytosis (Chronic) Tobacco abuse (Chronic) Suicidal ideation (Acute) Anxiety (Chronic) Depression (Chronic) COPD (chronic obstructive pulmonary disease) (Chronic) Depression (Chronic) Bipolar disorder (Chronic) Depression with suicidal ideation (Acute) Medical History Depressed Stress Suicidal thoughts Shingles Suicidal ideations Traumatic pneumothorax 2017, chest tube x2 Bipolar disorder Surgical History History of ankle surgery S/P thoracostomy tube placement Social History Smoking/Tobacco Use Status: Current every day Tobacco Type: cigarettes Smoking risk assessment performed?: Yes Alcohol Intake: never Drug use: Daily Substance use type: marijuana Details: Pt reports cannabis use for relaxation, pain management Housing: apartment Current gender identity: male Do you feel safe at home: No (does not feel safe with self) Do you feel safe in your relationship?: Yes Additional Social history: Lives in a private apartment. Has [facility] case management Exam Const General: cooperative and no acute distress Nutritional Appearance: thin Orientation: alert and awake HENMA Head: normocephalic and atraumatic Mouth: mucous membranes dry Eyes Conjunctivae: normal conjunctivae Sclera: normal sclerae Neck Neck: trachea midline and supple Resp Auscultation: clear to auscultation bilaterally, no rales, no rhonchi and no wheezes Cardio Rate: regular rate and not tachycardic Rhythm: regular rhythm GI Palpation: soft, not firm, no guarding, no masses, not rigid and nontender Back/Spine/Pelvis Back: No ecchymosis and back tenderness (rt upper to mid) Thoracic/Lumbar Spine: paraspinal tenderness, thoracic spinal tenderness (upper) and lumbar spinal tenderness Skin General skin exam: no rashes or lesions noted Neuro General: patient alert, patient awake and tone normal Extrem General: no edema Psych Appearance: grossly normal Course Vital Signs Vital signs: Vital Signs Temperature 37.2 C 05/23/23 11:39 Pulse 100 H 05/23/23 11:39 Respiratory Rate 22 05/23/23 11:39 Blood Pressure 126/93 H 05/23/23 11:39 Pulse Oximetry 94 05/23/23 11:39 Temperature 37.2 C 05/23/23 11:39 Temperature Source Oral 05/23/23 11:39 Pulse 100 H 05/23/23 11:39 Respiratory Rate 22 05/23/23 11:39 Respiratory Effort Normal 05/23/23 13:01 Blood Pressure 126/93 H 05/23/23 11:39 Blood Pressure Position Supine 05/23/23 11:39 Pulse Oximetry 94 05/23/23 11:39 Oxygen Delivery Method Room Air 05/23/23 11:39 Oxygen Flow Rate 0 05/23/23 11:39 Lab/Test Results Lab/Test Results: Laboratory Tests Range/Units 05/23/23 05/23/23 12:34 12:55 WBC (4.4-10.8) 10^3/uL 15.52 H RBC (4.36-5.78) 10^6/uL 6.35 H Hgb (13.5-17.5) g/dL 13.1 L Hct (40.0-50.0) % 41.9 MCV (80-95) fL 66 L MCH (27.0-33.0) pg 20.6 L MCHC (32.0-36.0) % 31.3 L RDW (11.8-14.1) % 19.5 H Plt Count (130-400) 10^3/uL 778 H* MPV (8.0-11.0) fL 10.5 Immature Gran % 0.7 Neutrophils % 81.6 Lymphocytes % 11.1 Monocytes % 5.0 Eosinophils % 1.1 Basophils % 0.5 Nucleated RBC % (0.0-0.3) % 0.0 Absolute Neutrophils (1.2-6.7) 10^3/uL 12.66 H Absolute Lymphocytes (1.2-3.4) 10^3/uL 1.72 Absolute Monocytes (0.1-0.8) 10^3/uL 0.78 Absolute Eosinophils (0.0-0.7) 10^3/uL 0.17 Absolute Basophils (0.0-0.2) 10^3/uL 0.08 RBC Morphology See Below Microcytosis 2+ Sodium (136-145) mmol/L 132 L Potassium (3.5-5.1) mmol/L 3.6 Chloride (98-107) mmol/L 96 L Carbon Dioxide (21.0-32.0) mmol/L 23.1 Anion Gap (3-11) mmol/L 12.9 H BUN (7-18) mg/dL 21 H Creatinine (0.70-1.30) mg/dL 0.8 Est GFR (CKD-EPI 2020) (mL/min/1.73m2) 102.58 Glucose (74-106) mg/dL 125 H Calcium (8.5-10.1) mg/dL 10.2 H Total Bilirubin (0.2-1.0) mg/dL 0.6 AST (15-37) U/L 28 ALT (16-63) U/L 31 Alkaline Phosphatase (46-116) U/L 154 H Total Protein (6.4-8.2) g/dL 9.5 H Albumin (3.4-5.0) g/dL 3.3 L Medical Decision Making 1414?57-year-old male with history of bilateral lung cancer, transitioning to hospice service, here after falling last night with complaint of back pain. Patient has pain and tenderness in his upper thoracic spine as well as paraspinal right, lumbar spine and right hip/pelvis. Patient is tachycardic and normotensive. He saturating well in no respiratory distress. Plan to obtain CT of the chest, abdomen and pelvis. I will also obtain spinal recons. Acetaminophen IV for pain. -- Labs reviewed: Leukocytosis noted. Thrombocytosis noted. I will give IV fluid bolus. CT of the chest abdomen pelvis with spinal recons were interpreted by radiology: Chest CT: No acute posttraumatic abnormality. Old left rib fractures. Continued increase in size of bilateral lung masses and adenopathy. No pulmonary emboli. Abdomen pelvic CT: Nondisplaced fracture of right transverse process of L2. No additional fractures identified. Ileo ileal intussusception in the low pelvis causing mild small bowel dilatation. Patient was reassessed and was noted to be vomiting when I entered the room. He notes he had a normal bowel movement this morning. I called and spoke with Dr. Hair, on-call general surgeon, discussed ED presentation course, he evaluated the patient and will admit for treatment of intussusception. Lab Data Lab results reviewed: Yes I reviewed the patient's lab results. Labs: Laboratory Tests Range/Units 05/23/23 05/23/23 12:34 12:55 WBC (4.4-10.8) 10^3/uL 15.52 H RBC (4.36-5.78) 10^6/uL 6.35 H Hgb (13.5-17.5) g/dL 13.1 L Hct (40.0-50.0) % 41.9 MCV (80-95) fL 66 L MCH (27.0-33.0) pg 20.6 L MCHC (32.0-36.0) % 31.3 L RDW (11.8-14.1) % 19.5 H Plt Count (130-400) 10^3/uL 778 H* MPV (8.0-11.0) fL 10.5 Immature Gran % 0.7 Neutrophils % 81.6 Lymphocytes % 11.1 Monocytes % 5.0 Eosinophils % 1.1 Basophils % 0.5 Nucleated RBC % (0.0-0.3) % 0.0 Absolute Neutrophils (1.2-6.7) 10^3/uL 12.66 H Absolute Lymphocytes (1.2-3.4) 10^3/uL 1.72 Absolute Monocytes (0.1-0.8) 10^3/uL 0.78 Absolute Eosinophils (0.0-0.7) 10^3/uL 0.17 Absolute Basophils (0.0-0.2) 10^3/uL 0.08 RBC Morphology See Below Microcytosis 2+ Sodium (136-145) mmol/L 132 L Potassium (3.5-5.1) mmol/L 3.6 Chloride (98-107) mmol/L 96 L Carbon Dioxide (21.0-32.0) mmol/L 23.1 Anion Gap (3-11) mmol/L 12.9 H BUN (7-18) mg/dL 21 H Creatinine (0.70-1.30) mg/dL 0.8 Est GFR (CKD-EPI 2020) (mL/min/1.73m2) 102.58 Glucose (74-106) mg/dL 125 H Calcium (8.5-10.1) mg/dL 10.2 H Total Bilirubin (0.2-1.0) mg/dL 0.6 AST (15-37) U/L 28 ALT (16-63) U/L 31 Alkaline Phosphatase (46-116) U/L 154 H Total Protein (6.4-8.2) g/dL 9.5 H Albumin (3.4-5.0) g/dL 3.3 L Quality:SDOH Health Related Social Needs: No Data to Display Discharge Plan Disposition Patient Disposition: Admit to [facility] Condition: Serious Discharge Details Clinical Impression: Lumbar transverse process fracture, Intussusception of colon, Fall Primary Care Provider: Chung Perry ED Provider: Francisco Majano Home Meds and New Rx's Prescriptions: No Action lidocaine 5 % adhesive patch,medicated 1 patch topical DAILY Qty: 30 0RF Rx Instructions: leave on most painful area for up to 12 hrs for rib pain after fall fentanyl 25 mcg/hr patch 72 hour 1 patch transdermal Q72H MDD 100 mcg/hr Qty: 6 0RF Rx Instructions: Apply with 75 mcg/hr patch for a total of 100 mcg/hr. for cancer related pain zolpidem [Ambien] 5 mg tablet 5 mg PO QHS Qty: 30 0RF sennosides [senna] 8.6 mg tablet 8.6 mg PO DAILY Qty: 90 3RF fentanyl 75 mcg/hr patch 72 hour 1 patch transdermal Q72H MDD 75 mcg/hr patch Qty: 10 0RF Rx Instructions: For cancer related pain oxycodone 5 mg tablet 5 mg PO Q4H MDD 30 mg PRN (Reason: pain) Qty: 60 0RF Rx Instructions: for cancer related pain acetaminophen 650 mg suppository 650 mg NM Q6H PRN (Reason: fever, mild pain) Qty: 6 0RF Rx Instructions: Hospice Patient hyoscyamine sulfate 0.125 mg tablet,disintegrating 0.125 - 0.25 mg PO Q4H PRN (Reason: secretions) Qty: 24 0RF Rx Instructions: Hospice Patient lorazepam 1 mg tablet 1 mg PO Q4H PRN (Reason: anxiety, FLYNN or nausea) Qty: 6 5RF Rx Instructions: Hospice Patient haloperidol lactate 2 mg/mL concentrate 1 mg PO Q6H PRN (Reason: agitation) Qty: 15 0RF Rx Instructions: Hospice Patient morphine concentrate 100 mg/5 mL (20 mg/mL) solution 5 - 20 mg PO Q1-4H MDD 5 mL PRN (Reason: moderate to severe pain or shortness of breath) Qty: 30 0RF Rx Instructions: Hospice Patient prochlorperazine maleate 10 mg tablet 10 mg PO Q6H PRN (Reason: nausea and vomiting) Qty: 6 0RF Rx Instructions: Hospice Patient bisacodyl [Dulcolax (bisacodyl)] 10 mg suppository 10 mg NM daily PRN (Reason: constipation) Qty: 2 0RF Rx Instructions: Hospice Patient Insert 1 supp NM Daily PRN constipation (no BM in 3 days) acetaminophen 650 mg suppository 650 mg NM Q6H PRN (Reason: fever, mild pain) Qty: 6 0RF Rx Instructions: Hospice Patient morphine concentrate 100 mg/5 mL (20 mg/mL) solution 5 - 20 mg PO Q1-4H MDD 5 mL PRN (Reason: moderate to severe pain or shortness of breath) Qty: 30 0RF Rx Instructions: Hospice Patient prochlorperazine maleate 10 mg tablet 10 mg PO Q6H PRN (Reason: nausea and vomiting) Qty: 6 0RF Rx Instructions: Hospice Patient hyoscyamine sulfate 0.125 mg tablet,disintegrating 0.125 - 0.25 mg PO Q4H PRN (Reason: secretions) Qty: 24 0RF Rx Instructions: Hospice Patient bisacodyl [Dulcolax (bisacodyl)] 10 mg suppository 10 mg NM daily PRN (Reason: constipation) Qty: 2 0RF Rx Instructions: Hospice Patient Insert 1 supp NM Daily PRN constipation (no BM in 3 days) lorazepam 1 mg tablet 1 mg PO Q4H PRN (Reason: anxiety, FLYNN or nausea) Qty: 6 5RF Rx Instructions: Hospice Patient haloperidol lactate 2 mg/mL concentrate 1 mg PO Q6H PRN (Reason: agitation) Qty: 15 0RF Rx Instructions: Hospice Patient megestrol 20 mg tablet See Rx Instructions .ROUTE .COMPLEX Qty: 60 0RF Dose Instruction: TAKE 1 TABLET BY MOUTH TWICE A DAY Rx Instructions: TAKE 1 TABLET BY MOUTH TWICE A DAY hydroxyzine HCl 25 mg tablet 25 mg PO BID PRN olanzapine [Zyprexa] 10 mg Tablet 20 mg PO HS bupropion HCl 150 mg tablet extended release 24 hr 150 mg PO QAM trazodone 50 mg tablet 50 mg PO HS albuterol sulfate 90 mcg/actuation HFA aerosol inhaler 2 puff inhalation QID PRN (Reason: shortness of breath or wheezing) Qty: 8 0RF Rx Instructions: Use 1 or 2 puffs every 4-6 hours as needed for shortness of breath or wheezing. sertraline 100 mg tablet 150 mg PO DAILY levothyroxine 100 mcg tablet 100 mcg PO DAILY magnesium oxide 400 mg (241.3 mg magnesium) tablet 400 mg PO DAILY Patient Comments: states not taking 02/27/23 gabapentin 300 mg capsule 300 mg PO HS omeprazole 20 mg capsule,delayed release(DR/EC) 20 mg PO DAILY melatonin 10 mg capsule 10 mg PO HS
[2023-05-23] MEDS: Omnipaque 350 MG/ML 100 ML BTL IJ (14:22)
[2023-05-23] MEDS: Normal Saline - Diluent 50 ML VIAL IJ (14:23)
[2023-05-23] MEDS: Normal Saline 1,000 ML 1000 ML IV (14:35)
--- NOTE | 2023-05-23 15:00 | DI.RAD_ITS ---
Exam(s) XR ABDOMEN FLAT PLATE EXAM: 2D digital imaging was performed. CLINICAL HISTORY: Gastrografin challenge. COMPARISON: CT CT THORACIC LUMBAR SPINE REC from 05/23/[address] CHEST/ABD/PEL W from 05/23/2023 TECHNIQUE: Supine views of the abdomen performed. Two images were obtained. FINDINGS: BOWEL GAS PATTERN: The oral contrast administered is seen throughout the small bowel. No contrast is seen in the colon at this time. The colonic bowel gas pattern is unremarkable. CALCIFICATIONS: No radiopaque calcifications. OSSEOUS STRUCTURES: Normal for age. OTHER FINDINGS: There is contrast seen in the urinary bladder from the patient's recent CT examinatio n. IMPRESSION: 1. The oral contrast is seen within the small bowel with no contrast seen at this time in the colon. 2. A follow-up examination is recommended to confirm passage of contrast into the colon and to exclud e a distal small bowel obstruction. DATA REPOSITORY: RADIATION DOSE DELIVERED:
--- NOTE | 2023-05-23 15:04 | HPE_ITS ---
Date of service: 05/23/23 Time of Service: 15:04 Assessment and Plan Assessment and plan (1) Intussusception of intestine: Status: Acute Assessment and plan: Although intussusception is fairly common among patients undergoing CT evaluation for trauma, his nausea and vomiting is a little concerning. Especially in light of his advanced lung cancer. I do think he is at risk for small bowel metastases from his lung cancer, which could certainly serve as a lead point for intussusception. At this point, he is asymptomatic. However, I do think the safest plan is to observe him overnight and perform a Gastrografin challenge. Assuming that he remains asymptomatic, and the contrast passes to his colon I think we can work to get him discharged early tomorrow. Alternatively, if he has ongoing signs or symptoms of small bowel obstruction, we will need to reevaluate a plan to ensure that intervention and outcomes are aligned with his expectations in light of his lung cancer. History of Present Illness History of Present Illness Chief Complaint: Vomiting Narrative: Asim is 57 years old. He has metastatic lung cancer. He came to the emergency department after a standing level fall last night. He says he was getting up from bed, and he lost his balance and collapsed. He does not remember exactly how he fell. He noticed pain in the lower back that persisted all night. Came to the emergency department today for evaluation. He underwent CT scan of the chest abdomen and pelvis and was found to have a nondisplaced L2 transverse process fracture. Incidentally, he also had signs of an intussusception, with proximal small bowel dilation. During reassessment in the emergency department, he was noted to be vomiting. When I came to see the patient, he tells me that his nausea has resolved. He thinks he may have vomited because he drank some sy montrell a little too quickly. He denies any recent history of nausea or vomiting. He denies any abdominal pain whatsoever. He does have pain in the lower back. He thinks he had a normal bowel movement today. He denies any melena or hematochezia. Review of Systems Constitutional Constitutional: Reports body ache(s), Reports fatigue, Denies fever(s), Reports frequent falls, Reports lethargy, Reports poor appetite, Reports weakness and Reports weight loss Eyes Eyes: Reports system reviewed and no additional complaints, except as documented ENT Ears, Nose, Mouth, and Throat: Reports system reviewed and no additional complaints, except as documented Cardiovascular Cardiovascular: Denies chest pain and Denies dyspnea Respiratory Respiratory: Denies chest congestion, Reports cough, Denies pain on inspiration and Denies dyspnea Gastrointestinal Gastrointestinal: Denies abdominal pain, Denies belching, Denies bloating, Denies change in stool character, Denies constipation, Denies diarrhea and Reports vomiting Genitourinary Genitourinary: Reports system reviewed and no additional complaints, except as documented Musculoskeletal Musculoskeletal: Reports back pain, Reports myalgias and Reports atrophy Neurologic Neurologic: Reports frequent falls and Reports weakness Endocrine Endocrine: Reports fatigue Hematologic/Lymphatic Hematologic/Lymphatic: Denies easy bleeding and Denies easy bruising PFSH All Active Problems (Updated 05/23/23 @ 16:00 by Justino Hair MD) Intussusception of intestine (Acute) Fall (Acute) Lumbar transverse process fracture (Acute) Weakness (Acute) Right shoulder pain (Acute) Multiple falls (Acute) Back contusion (Acute) Chest pain (Acute) Insomnia (Acute) Unintentional weight loss (Acute) Hypoxia (Acute) Cancer related pain (Acute) Advanced care planning/counseling discussion (Acute) Palliative care patient (Acute) Bilateral lung cancer (Acute) Adenocarcinoma from 2020 biopsy COVID (Acute) Suicidal ideation (Acute) Depression (Chronic) Deliberate self-cutting (Acute) Other social stressor (Acute) Agitation (Acute) Hemoptysis (Acute) Thumb injury (Acute) Abnormal chest CT (Acute) GERD (gastroesophageal reflux disease) (Chronic) Hypercholesterolemia (Chronic) Suicidal thoughts (Acute) Leukocytosis (Chronic) Tobacco abuse (Chronic) Suicidal ideation (Acute) Anxiety (Chronic) Depression (Chronic) COPD (chronic obstructive pulmonary disease) (Chronic) Depression (Chronic) Bipolar disorder (Chronic) Depression with suicidal ideation (Acute) Medical History Depressed Stress Suicidal thoughts Shingles Suicidal ideations Traumatic pneumothorax 2017, chest tube x2 Bipolar disorder Surgical History History of ankle surgery S/P thoracostomy tube placement Social History Smoking/Tobacco Use Status: Current every day Tobacco Type: cigarettes Smoking risk assessment performed?: Yes Alcohol Intake: never Drug use: Daily Substance use type: marijuana Details: Pt reports cannabis use for relaxation, pain management Housing: apartment Current gender identity: male Do you feel safe at home: No (does not feel safe with self) Do you feel safe in your relationship?: Yes Additional Social history: Lives in a private apartment. Has [facility] case management Meds Allergies and Home Medications Allergies Allergy/AdvReac Type Severity Reaction Status Date / Time Sulfa (Sulfonamide Allergy Severe Swelling/Ed Unverified 05/07/23 19:57 Antibiotics) jostin Home Medications Medication Instructions Recorded Confirmed Type bupropion HCl 150 mg 24 hr tablet, 150 mg PO QAM 01/26/22 05/23/23 History extended release hydroxyzine HCl 25 mg tablet 25 mg PO BID PRN 01/26/22 05/23/23 History olanzapine 10 mg tablet (Zyprexa) 20 mg PO HS 01/26/22 05/23/23 History trazodone 50 mg tablet 50 mg PO HS 01/26/22 05/23/23 History sennosides 8.6 mg tablet (senna) 8.6 mg PO DAILY Opioid induced 11/07/22 05/23/23 Rx constipation #90 tabs gabapentin 300 mg capsule 300 mg PO HS 11/23/22 05/23/23 History levothyroxine 100 mcg tablet 100 mcg PO DAILY 11/23/22 05/23/23 History magnesium oxide 400 mg (241.3 mg 400 mg PO DAILY 11/23/22 05/23/23 History magnesium) tablet melatonin 10 mg capsule 10 mg PO HS 11/23/22 05/23/23 History omeprazole 20 mg capsule,delayed 20 mg PO DAILY 11/23/22 05/23/23 History release sertraline 100 mg tablet 150 mg PO DAILY 11/23/22 05/23/23 History albuterol sulfate 90 mcg/actuation 2 puff inhalation QID PRN 12/19/22 05/23/23 Rx aerosol inhaler shortness of breath or wheezing #8 grams lidocaine 5 % topical patch 1 patch topical DAILY #30 ea 04/06/23 05/23/23 Rx acetaminophen 650 mg rectal 650 mg [place] Q6H PRN fever, mild pain 04/20/23 05/23/23 Rx suppository #6 supp acetaminophen 650 mg rectal 650 mg [place] Q6H PRN fever, mild pain 04/20/23 05/23/23 Rx suppository #6 supp bisacodyl 10 mg rectal suppository 10 mg [place] daily PRN constipation #2 04/20/23 05/23/23 Rx (Dulcolax (bisacodyl)) supp bisacodyl 10 mg rectal suppository 10 mg [place] daily PRN constipation #2 04/20/23 05/23/23 Rx (Dulcolax (bisacodyl)) supp fentanyl 75 mcg/hr transdermal 1 patch transdermal Q72H #10 ea 04/20/23 05/23/23 Rx patch haloperidol lactate 2 mg/mL oral 1 mg (0.5 mL) PO Q6H PRN agitation 04/20/23 05/23/23 Rx concentrate #15 mL haloperidol lactate 2 mg/mL oral 1 mg (0.5 mL) PO Q6H PRN agitation 04/20/23 05/23/23 Rx concentrate #15 mL hyoscyamine sulfate 0.125 mg 0.125 - 0.25 mg (1 - 2 x 0.125 mg) 04/20/23 05/23/23 Rx disintegrating tablet PO Q4H PRN secretions #24 tabs hyoscyamine sulfate 0.125 mg 0.125 - 0.25 mg (1 - 2 x 0.125 mg) 04/20/23 05/23/23 Rx disintegrating tablet PO Q4H PRN secretions #24 tabs lorazepam 1 mg tablet 1 mg PO Q4H PRN anxiety, FLYNN or 04/20/23 05/23/23 Rx nausea #6 tabs lorazepam 1 mg tablet 1 mg PO Q4H PRN anxiety, FLYNN or 04/20/23 05/23/23 Rx nausea #6 tabs morphine concentrate 100 mg/5 mL 5 - 20 mg (0.25 - 1 mL) PO Q1-4H 04/20/23 05/23/23 Rx (20 mg/mL) oral solution PRN moderate to severe pain or shortness of breath #30 mL morphine concentrate 100 mg/5 mL 5 - 20 mg (0.25 - 1 mL) PO Q1-4H 04/20/23 05/23/23 Rx (20 mg/mL) oral solution PRN moderate to severe pain or shortness of breath #30 mL oxycodone 5 mg tablet 5 mg PO Q4H PRN pain #60 tabs 04/20/23 05/23/23 Rx prochlorperazine maleate 10 mg 10 mg PO Q6H PRN nausea and 04/20/23 05/23/23 Rx tablet vomiting #6 tabs prochlorperazine maleate 10 mg 10 mg PO Q6H PRN nausea and 04/20/23 05/23/23 Rx tablet vomiting #6 tabs megestrol 20 mg tablet See Rx Instructions .Route 05/07/23 05/23/23 Rx .COMPLEX #60 tabs fentanyl 25 mcg/hr transdermal 1 patch transdermal Q72H #6 ea 05/11/23 05/23/23 Rx patch zolpidem 5 mg tablet (Ambien) 5 mg PO QHS #30 tabs 05/11/23 05/23/23 Rx Exam Const General: cooperative Nutritional Appearance: malnourished Orientation: alert, awake and oriented x3 HENMT Head: normal to inspection Eyes General: appearance normal, both eyes and all related structures GI Inspection: normal to inspection and non-distended Palpation: soft, no hernias, no masses and nontender Percussion: normal to percussion Auscultation: normal bowel sounds Results Labs 05/23/23 12:55 05/23/23 12:34 Labs: Laboratory Results - last 24 hr 05/23/23 05/23/23 12:34 12:55 WBC 15.52 H RBC 6.35 H Hgb 13.1 L Hct 41.9 MCV 66 L MCH 20.6 L MCHC 31.3 L RDW 19.5 H Plt Count 778 H* MPV 10.5 Immature Gran % 0.7 Neutrophils % 81.6 Lymphocytes % 11.1 Monocytes % 5.0 Eosinophils % 1.1 Basophils % 0.5 Nucleated RBC % 0.0 Absolute Neutrophils 12.66 H Absolute Lymphocytes 1.72 Absolute Monocytes 0.78 Absolute Eosinophils 0.17 Absolute Basophils 0.08 RBC Morphology See Below Microcytosis 2+ Sodium 132 L Potassium 3.6 Chloride 96 L Carbon Dioxide 23.1 Anion Gap 12.9 H BUN 21 H Creatinine 0.8 Est GFR (CKD-EPI 2020) 102.58 Glucose 125 H Calcium 10.2 H Total Bilirubin 0.6 AST 28 ALT 31 Alkaline Phosphatase 154 H Total Protein 9.5 H Albumin 3.3 L Last Vital Signs Temp 99.0 F 05/23/23 11:39 Pulse 100 H 05/23/23 11:39 Resp 22 05/23/23 11:39 BP 126/93 H 05/23/23 11:39 Pulse Ox 94 05/23/23 11:39 Time Spent Time spent with Patient: 40-54 minutes Time was spent: preparing to see the patient(eg.review tests), obtaining and/or reviewing separately otained hiistory, ordering medications,tests, procedures, referring, communicating with other health managed care director, indepentently interpreting results and counseling the patient
[2023-05-23 16:51] VITALS: BP 108/78; PULSE 90; RESP 16; TEMP 37.1; O2SAT 99
[2023-05-23] MEDS: Ondansetron 4 MG/2 ML VIAL IVP ×2 (17:31→21:37)
[2023-05-23] MEDS: Normal Saline Flush 10 ML SYR IVP ×2 (17:32→20:05)
[2023-05-23] MEDS: Enoxaparin 40 MG/0.4 ML SYR SC (18:14)
[2023-05-23] MEDS: Lactated Ringers 1,000 ML 75 ML IV (20:05)
[2023-05-23 20:06] VITALS: BP 118/79; PULSE 98; RESP 16; TEMP 37.4; O2SAT 98
[2023-05-23] MEDS: Prochlorperazine 10 MG TAB PO (20:31)
[2023-05-23] MEDS: Gastrografin 120 ML BTL PO (21:36)
[2023-05-23] MEDS: traZODone 50 MG TAB PO (22:20)
[2023-05-23] MEDS: oxyCODONE 5 MG TAB PO (22:20)
[2023-05-23] MEDS: Melatonin 3 MG TAB 9 MG PO (22:21)
[2023-05-23 23:40] VITALS: BP 121/85; PULSE 95; RESP 16; TEMP 37.4; O2SAT 95
[2023-05-23] MEDS: OLANZapine 10 MG TAB 20 MG PO (23:42)
[2023-05-23] MEDS: Zolpidem 5 MG TAB PO (23:42)
[2023-05-23] MEDS: Gabapentin 300 MG CAP PO (23:43)
--- NOTE | 2023-05-23 23:58 | DI.VRAD_ITS ---
Addendum created by Mable Sinha MD on 05/24/2023 5:18:32 AM EST: The administered high-density contrast extends throughout the stomach and small bowel. There is no definite extension of the contrast into the colon. Normal colonic gas pattern. While there are no dilated loops of small bowel, if the clinical team desires to exclude distal small bowel obstruction, would recommend additional follow-up imaging. There is excreted contrast within the urinary bladder. Initial report created on 05/23/2023 11:58:11 PM EST: PROCEDURE INFORMATION: Exam: XR Abdomen Exam date and time: 05/23/2023 11:05 PM Age: 57 years old Clinical indication: Screening exam; Other: Gastrografin challenge TECHNIQUE: Imaging protocol: Radiologic exam of the abdomen. Views: Frontal supine view of the abdomen. 1 View. COMPARISON: CT CHEST/ABD/PEL W 05/23/2023 2:07 PM FINDINGS: Gastrointestinal tract: Normal. No bowel dilation. Bones/joints: Unremarkable. IMPRESSION: No acute findings. Dictated and Authenticated by: Mable Sinha MD. Ordering:MICHELLE Badillo MD
[2023-05-24] MEDS: oxyCODONE 5 MG TAB PO (03:47)
[2023-05-24] MEDS: Levothyroxine 100 MCG TAB PO (06:06)
--- NOTE | 2023-05-24 06:10 | DI.RAD_ITS ---
Exam(s) XR ABDOMEN FLAT PLATE EXAM: 2D digital imaging was performed. CLINICAL HISTORY: R/O SBO had oral gastrografin 8 hours ago.. COMPARISON: CR,XR XR ABDOMEN FLAT PLATE from 05/23/2023 TECHNIQUE: Supine views of the abdomen performed. Two images were obtained. FINDINGS: BOWEL GAS PATTERN: The oral contrast has passed into the colon in this seen in the rectosigmoid colon . The bowel gas pattern is unremarkable. There is no evidence of obstruction. CALCIFICATIONS: No radiopaque calcifications. OSSEOUS STRUCTURES: Normal for age. OTHER FINDINGS: There is a small amount of residual contrast in the urinary bladder from previous IV contrast administration. IMPRESSION: 1. The oral contrast has passed into the colon is seen in the rectosigmoid colon. 2. No evidence of bowel obstruction. DATA REPOSITORY: RADIATION DOSE DELIVERED:
[2023-05-24 08:00] VITALS: BP 119/83; PULSE 79; RESP 17; TEMP 37; O2SAT 99
--- NOTE | 2023-05-24 08:44 | W.PM.DS.N ---
Date of service: 05/24/23 Time of Service: 08:44 DS: Diagnosis Discharge Diagnosis (1) Intussusception of intestine: Status: Acute Asessment and Plan: This is a nonpathologic incidental finding on the CT scan. No further treatment or imaging is needed. Discharge Plan Disposition Patient Disposition: Home Condition: Serious Condition: Good Discharge Details Reason For Visit: Intussusception Admit Date/Time: 05/23/23 15:14 Admit Provider: Justino Hair Attending Provider: Justino Hair [facility] Course: Asim is 57 years old. Unfortunately, he has metastatic lung cancer. He is known to the palliative care and hospice services. Most recently, while at home, he had a standing level fall striking his back. He came to the emergency department with back pain. He underwent CAT scan of the abdomen and pelvis that demonstrated an L2 transverse process fracture. He was also noted to have small bowel intussusception. We admitted him to the hospital for observation. Although he did have a single episode of vomiting in the emergency department, he was otherwise asymptomatic. He underwent a Gastrografin challenge that showed passage of Gastrografin into the large intestine with normal bowel function. Palliative care was consulted, and he was subsequently stable for discharge. Home Meds and New Rx's Prescriptions: Continued lidocaine 5 % adhesive patch,medicated 1 patch topical DAILY Qty: 30 0RF Rx Instructions: leave on most painful area for up to 12 hrs for rib pain after fall fentanyl 25 mcg/hr patch 72 hour 1 patch transdermal Q72H MDD 100 mcg/hr Qty: 6 0RF Rx Instructions: Apply with 75 mcg/hr patch for a total of 100 mcg/hr. for cancer related pain zolpidem [Ambien] 5 mg tablet 5 mg PO QHS Qty: 30 0RF sennosides [senna] 8.6 mg tablet 8.6 mg PO DAILY Qty: 90 3RF fentanyl 75 mcg/hr patch 72 hour 1 patch transdermal Q72H MDD 75 mcg/hr patch Qty: 10 0RF Rx Instructions: For cancer related pain oxycodone 5 mg tablet 5 mg PO Q4H MDD 30 mg PRN (Reason: pain) Qty: 60 0RF Rx Instructions: for cancer related pain acetaminophen 650 mg suppository 650 mg [place] Q6H PRN (Reason: fever, mild pain) Qty: 6 0RF Rx Instructions: Hospice Patient hyoscyamine sulfate 0.125 mg tablet,disintegrating 0.125 - 0.25 mg PO Q4H PRN (Reason: secretions) Qty: 24 0RF Rx Instructions: Hospice Patient lorazepam 1 mg tablet 1 mg PO Q4H PRN (Reason: anxiety, FLYNN or nausea) Qty: 6 5RF Rx Instructions: Hospice Patient haloperidol lactate 2 mg/mL concentrate 1 mg PO Q6H PRN (Reason: agitation) Qty: 15 0RF Rx Instructions: Hospice Patient morphine concentrate 100 mg/5 mL (20 mg/mL) solution 5 - 20 mg PO Q1-4H MDD 5 mL PRN (Reason: moderate to severe pain or shortness of breath) Qty: 30 0RF Rx Instructions: Hospice Patient bisacodyl [Dulcolax (bisacodyl)] 10 mg suppository 10 mg [place] daily PRN (Reason: constipation) Qty: 2 0RF Rx Instructions: Hospice Patient Insert 1 supp [place] Daily PRN constipation (no BM in 3 days) prochlorperazine maleate 10 mg tablet 10 mg PO Q6H PRN (Reason: nausea and vomiting) Qty: 6 0RF Rx Instructions: Hospice Patient hyoscyamine sulfate 0.125 mg tablet,disintegrating 0.125 - 0.25 mg PO Q4H PRN (Reason: secretions) Qty: 24 0RF Rx Instructions: Hospice Patient megestrol 20 mg tablet See Rx Instructions .ROUTE .COMPLEX Qty: 60 0RF Dose Instruction: TAKE 1 TABLET BY MOUTH TWICE A DAY Rx Instructions: TAKE 1 TABLET BY MOUTH TWICE A DAY hydroxyzine HCl 25 mg tablet 25 mg PO BID PRN olanzapine [Zyprexa] 10 mg Tablet 20 mg PO HS bupropion HCl 150 mg tablet extended release 24 hr 150 mg PO QAM trazodone 50 mg tablet 50 mg PO HS albuterol sulfate 90 mcg/actuation HFA aerosol inhaler 2 puff inhalation QID PRN (Reason: shortness of breath or wheezing) Qty: 8 0RF Rx Instructions: Use 1 or 2 puffs every 4-6 hours as needed for shortness of breath or wheezing. sertraline 100 mg tablet 150 mg PO DAILY levothyroxine 100 mcg tablet 100 mcg PO DAILY magnesium oxide 400 mg (241.3 mg magnesium) tablet 400 mg PO DAILY Patient Comments: states not taking 02/27/23 gabapentin 300 mg capsule 300 mg PO HS omeprazole 20 mg capsule,delayed release(DR/EC) 20 mg PO DAILY melatonin 10 mg capsule 10 mg PO HS Discharge Instructions Instructions: Transverse Process Fracture (GEN) Additional Instructions: Asim, as you probably recall, the CT scan that was done in order to help find any injuries from your fall revealed a mild abnormality in your small intestine. This is called an intussusception. It is quite common to find this among patients who do not actually have any symptoms. Just to be safe, we kept you overnight in the hospital, and performed a test with contrast to make sure that there was no signs of blockage of your bowel. Those tests were totally normal. Of course, you did sustain a fracture to the transverse process of one of your back bones. Although this can be quite painful, it is not dangerous. The mainstays of treatment involve making sure that your pain is well-controlled. I have attached some general information here regarding transverse process fractures. Activity:: Activity as Tolerated Equipment/Supplies:: No Equipment Needed Diet:: As Tolerated DS: Summary Time Spent with Patient providing and/or coordinating discharge services: Less than 30 minutes Status at Discharge Functional status at discharge: uses cane/walker Overall status at discharge: patient is progressing back to baseline Mental Status: mental status grossly normal Speech and Movement: speech and movement normal Mood: congruent mood Affect: normal affect Quality:SDOH Health Related Social Needs: No Data to Display Exam GI Other: Abdomen is soft and nondistended. Is not tender. Back/Spine/Pelvis Other: He has some tenderness to the mid lumbar spine. No bruising. Psych Mental Status: mental status grossly normal Speech and Movement: speech and movement normal Mood: congruent mood Affect: normal affect DS: Data Vitals/I&O Vitals and I&O: Vital Signs Temperature 98.6 F 05/24/23 08:00 Temperature Source Tympanic 05/24/23 08:00 Pulse 79 05/24/23 08:00 Pulse Rhythm Regular 05/23/23 20:00 Respiratory Rate 17 05/24/23 08:00 Respiratory Effort Normal, Non-Labored 05/23/23 20:00 Respiratory Depth Normal 05/23/23 20:00 Respiratory Pattern Normal 05/23/23 20:00 Blood Pressure 119/83 05/24/23 08:00 Blood Pressure Position Supine 05/23/23 11:39 Pulse Oximetry 99 05/24/23 08:00 Oxygen Delivery Method Room Air 05/24/23 08:00 Oxygen Flow Rate 0 05/24/23 08:00 Pain Level 4 05/24/23 08:00 Intake & Output 05/23/23 05/23/23 05/24/23 11:59 23:59 11:59 Intake Total 1100 / 1100 Balance 1100 1100 Weight 128 lb 11.999 oz Intake: IV 1100 1099 Other: Comment unmeasured unmeasured Stool Size Large Stool Characteristics Liquid Voiding Methods Toilet Toilet Data Completed and Pending Labs on day of discharge: Labs from last 24 hours 05/23/23 05/23/23 12:55 12:34 WBC 15.52 H RBC 6.35 H Hgb 13.1 L Hct 41.9 MCV 66 L MCH 20.6 L MCHC 31.3 L RDW 19.5 H Plt Count 778 H* MPV 10.5 Immature Gran % 0.7 Neutrophils % 81.6 Lymphocytes % 11.1 Monocytes % 5.0 Eosinophils % 1.1 Basophils % 0.5 Nucleated RBC % 0.0 Absolute Neutrophils 12.66 H Absolute Lymphocytes 1.72 Absolute Monocytes 0.78 Absolute Eosinophils 0.17 Absolute Basophils 0.08 RBC Morphology See Below Microcytosis 2+ Sodium 132 L Potassium 3.6 Chloride 96 L Carbon Dioxide 23.1 Anion Gap 12.9 H BUN 21 H Creatinine 0.8 Est GFR (CKD-EPI 2020) 102.58 Glucose 125 H Calcium 10.2 H Total Bilirubin 0.6 AST 28 ALT 31 Alkaline Phosphatase 154 H Total Protein 9.5 H Albumin 3.3 L PFSH All Active Problems Intussusception of intestine (Acute) Fall (Acute) Lumbar transverse process fracture (Acute) Weakness (Acute) Right shoulder pain (Acute) Multiple falls (Acute) Back contusion (Acute) Insomnia (Acute) Unintentional weight loss (Acute) Hypoxia (Acute) Cancer related pain (Acute) Advanced care planning/counseling discussion (Acute) Palliative care patient (Acute) Bilateral lung cancer (Acute) Adenocarcinoma from 2020 biopsy COVID (Acute) Suicidal ideation (Acute) Depression (Chronic) Deliberate self-cutting (Acute) Other social stressor (Acute) Agitation (Acute) Hemoptysis (Acute) Thumb injury (Acute) Abnormal chest CT (Acute) GERD (gastroesophageal reflux disease) (Chronic) Hypercholesterolemia (Chronic) Suicidal thoughts (Acute) Leukocytosis (Chronic) Tobacco abuse (Chronic) Suicidal ideation (Acute) Anxiety (Chronic) Depression (Chronic) COPD (chronic obstructive pulmonary disease) (Chronic) Depression (Chronic) Bipolar disorder (Chronic) Depression with suicidal ideation (Acute) Medical History Depressed Stress Suicidal thoughts Shingles Suicidal ideations Traumatic pneumothorax 2017, chest tube x2 Bipolar disorder Surgical History History of ankle surgery S/P thoracostomy tube placement Social History Smoking/Tobacco Use Status: Current every day Tobacco Type: cigarettes Smoking risk assessment performed?: Yes Alcohol Intake: never Drug use: Daily Substance use type: marijuana Details: Pt reports cannabis use for relaxation, pain management Housing: house Current gender identity: male Do you feel safe at home: No (does not feel safe with self) Do you feel safe in your relationship?: Yes Additional Social history: Lives in a private apartment. Has [facility] case management Time Spent with Patient Time Spent with Patient: <45 minutes Time was spent: preparing to see the patient(eg.review tests), indepentently interpreting results and counseling the patient
[2023-05-24] MEDS: Omeprazole 20 MG CAPCR PO (08:52)
[2023-05-24] MEDS: Magnesium Oxide 400 MG TAB PO (08:53)
[2023-05-24] MEDS: buPROPion-XL 150 MG TABCR PO (08:53)
[2023-05-24] MEDS: Senna TAB 1 TAB PO (08:53)
[2023-05-24] MEDS: Sertraline 100 MG TAB 150 MG PO (08:54)
[2023-05-24] MEDS: fentaNYL 100 MCG PATCH TD (08:55)
[2023-05-24] MEDS: Lidocaine 5% Patch 1 PATCH TP (08:55)
[2023-05-24] MEDS: Normal Saline Flush 10 ML SYR IVP (08:56)
--- NOTE | 2023-05-24 09:00 | DI.VRAD_ITS ---
PROCEDURE INFORMATION: Exam: XR Abdomen Exam date and time: 05/24/2023 6:01 AM Age: 57 years old Clinical indication: Abnormal findings; Abnormal radiologic finding of the abdomen; Radiologic exam and body structure: Sbo, gastrografin challenge; Additional info: Sbo, gastrografin challenge 8 hr f/u TECHNIQUE: Imaging protocol: Radiologic exam of the abdomen. Views: Frontal supine view of the abdomen. 1 View. COMPARISON: XR ABDOMEN FLAT PLATE 05/23/2023 11:05 PM FINDINGS: Gastrointestinal tract: Contrast is present throughout the colon and with than distal small bowel. Bones/joints: No acute osseous abnormality detected. IMPRESSION: Nonspecific abdomen without evidence of bowel obstruction Dictated and Authenticated by: Sohan Cyr MD. Ordering:MICHELLE Badillo MD
== END 2023-05-24 10:59 | disposition home or self-care (01) ==
LOC: ER 15:58 → MS 16:43
PROVIDERS: Admitting Provider Surgery; Emergency Provider Student in an Organized Health Care Education/Training Program; PCP Family Medicine; Visit Provider Surgery
DX: S32.028A Other fracture of second lumbar vertebra, initial encounter for closed fracture (principal); K56.1 Intussusception; M54.50 Low back pain, unspecified; W01.0XXA Fall on same level from slipping, tripping and stumbling without subsequent striking against object, initial encounter; R11.2 Nausea with vomiting, unspecified; R53.1 Weakness; R29.6 Repeated falls; G47.00 Insomnia, unspecified; Z68.20 Body mass index [BMI] 20.0-20.9, adult; C34.92 Malignant neoplasm of unspecified part of left bronchus or lung; C34.91 Malignant neoplasm of unspecified part of right bronchus or lung; G89.3 Neoplasm related pain (acute) (chronic); C79.9 Secondary malignant neoplasm of unspecified site; E46 Unspecified protein-calorie malnutrition; F17.210 Nicotine dependence, cigarettes, uncomplicated; Z79.899 Other long term (current) drug therapy; E78.00 Pure hypercholesterolemia, unspecified; F32.A Depression, unspecified; K21.9 Gastro-esophageal reflux disease without esophagitis; R45.851 Suicidal ideations
CPT/HCPCS: 74177; 80053; 96361; 96365; 96372; 96374; 99222; 99238; 99285; J1650; 71260; 74018; 85025; G0378; J0131; J2405; J3490

== ENCOUNTER 2023-05-26 15:35 | Emergency (ER) | payer MEDICAID, SELFPAY ==
[2023-05-26] VITALS (12 sets, daily range): BP systolic 105–130; BP diastolic 75–97; PULSE 95–113; RESP 14–25; TEMP 36.7; O2SAT 96–97
--- NOTE | 2023-05-26 15:45 | RT.EKG_ITS ---
APPROVED REPORT Exam: Resting ECG Reason for Exam: chest pain Patient Location: E HR:96 bpm ECG Measurements Heart Rate 96 AXIS ID 122 P 63 QRSd 93 QRS 72 QT 476 T 69 QTc 601 Conclusion Sinus rhythm...normal P axis, V-rate 60- 99 Prolonged QT interval new from prior
--- NOTE | 2023-05-26 15:54 | ED.GENADUL_ITS ---
HPI General Stated Complaint: GenMedical ABA: 3 Date/Time Provider Initiated Documentation: 05/26/23 15:41. HPI Narrative: 57 year-old male presents to ED today by POV/ambulating with a chief complaint of feels he was pre-maturely discharged from med-surg yesterday, reporting continued multiple falls, N/V/D last night and today. Patient has terminal lung CA, and has [facility] case workers, palliative care tele-health who are working to get him a Medicaid application on file so that he may be placed- per their last consult he does qualify for hospice, but doesn't have a grocery shopper at home. Quality described as inability to tolerate fluids and solids since discharge, a fall last night without injury, no radiation to new pain, fever, endorses being more wobbly on his feet. Severity is described as severe. Palliating factors include multi-modality consults have been made but we are still at a stand-still with his medicaid application. Provoking factors include nothing specific. Events leading up to the incident/Associated Symptoms: Patient has a complex history of suicidal ideation. Patient not anticoagulated. Related Data Home Medications Medication Instructions Recorded Confirmed bupropion HCl 150 mg 24 hr tablet, 150 mg PO QAM 01/26/22 05/26/23 extended release hydroxyzine HCl 25 mg tablet 25 mg PO BID PRN 01/26/22 05/26/23 olanzapine 10 mg tablet (Zyprexa) 20 mg PO HS 01/26/22 05/26/23 trazodone 50 mg tablet 50 mg PO HS 01/26/22 05/26/23 sennosides 8.6 mg tablet (senna) 8.6 mg PO DAILY Opioid induced 11/07/22 05/26/23 constipation #90 tabs gabapentin 300 mg capsule 300 mg PO HS 11/23/22 05/26/23 levothyroxine 100 mcg tablet 100 mcg PO DAILY 11/23/22 05/26/23 magnesium oxide 400 mg (241.3 mg 400 mg PO DAILY 11/23/22 05/26/23 magnesium) tablet melatonin 10 mg capsule 10 mg PO HS 11/23/22 05/26/23 omeprazole 20 mg capsule,delayed 20 mg PO DAILY 11/23/22 05/26/23 release sertraline 100 mg tablet 150 mg PO DAILY 11/23/22 05/26/23 albuterol sulfate 90 mcg/actuation 2 puff inhalation QID PRN 12/19/22 05/26/23 aerosol inhaler shortness of breath or wheezing #8 grams lidocaine 5 % topical patch 1 patch topical DAILY #30 ea 04/06/23 05/26/23 acetaminophen 650 mg rectal 650 mg MS Q6H PRN fever, mild pain 04/20/23 05/26/23 suppository #6 supp bisacodyl 10 mg rectal suppository 10 mg MS daily PRN constipation #2 04/20/23 05/26/23 (Dulcolax (bisacodyl)) supp haloperidol lactate 2 mg/mL oral 1 mg (0.5 mL) PO Q6H PRN agitation 04/20/23 05/26/23 concentrate #15 mL hyoscyamine sulfate 0.125 mg 0.125 - 0.25 mg (1 - 2 x 0.125 mg) 04/20/23 05/26/23 disintegrating tablet PO Q4H PRN secretions #24 tabs hyoscyamine sulfate 0.125 mg 0.125 - 0.25 mg (1 - 2 x 0.125 mg) 04/20/23 05/26/23 disintegrating tablet PO Q4H PRN secretions #24 tabs lorazepam 1 mg tablet 1 mg PO Q4H PRN anxiety, FLYNN or 04/20/23 05/26/23 nausea #6 tabs morphine concentrate 100 mg/5 mL 5 - 20 mg (0.25 - 1 mL) PO Q1-4H 04/20/23 05/26/23 (20 mg/mL) oral solution PRN moderate to severe pain or shortness of breath #30 mL oxycodone 5 mg tablet 5 mg PO Q4H PRN pain #60 tabs 04/20/23 05/26/23 prochlorperazine maleate 10 mg 10 mg PO Q6H PRN nausea and 04/20/23 05/26/23 tablet vomiting #6 tabs zolpidem 5 mg tablet (Ambien) 5 mg PO QHS #30 tabs 05/11/23 05/26/23 fentanyl 100 mcg/hr transdermal 1 patch transdermal Q72H #10 ea 05/24/23 05/26/23 patch Previous Rx's Medication Instructions Recorded sennosides 8.6 mg tablet (senna) 8.6 mg PO DAILY Opioid induced 11/07/22 constipation #90 tabs albuterol sulfate 90 mcg/actuation 2 puff inhalation QID PRN 12/19/22 aerosol inhaler shortness of breath or wheezing #8 grams lidocaine 5 % topical patch 1 patch topical DAILY #30 ea 04/06/23 acetaminophen 650 mg rectal 650 mg MS Q6H PRN fever, mild pain 04/20/23 suppository #6 supp bisacodyl 10 mg rectal suppository 10 mg MS daily PRN constipation #2 04/20/23 (Dulcolax (bisacodyl)) supp haloperidol lactate 2 mg/mL oral 1 mg (0.5 mL) PO Q6H PRN agitation 04/20/23 concentrate #15 mL hyoscyamine sulfate 0.125 mg 0.125 - 0.25 mg (1 - 2 x 0.125 mg) 04/20/23 disintegrating tablet PO Q4H PRN secretions #24 tabs hyoscyamine sulfate 0.125 mg 0.125 - 0.25 mg (1 - 2 x 0.125 mg) 04/20/23 disintegrating tablet PO Q4H PRN secretions #24 tabs lorazepam 1 mg tablet 1 mg PO Q4H PRN anxiety, FLYNN or 04/20/23 nausea #6 tabs morphine concentrate 100 mg/5 mL 5 - 20 mg (0.25 - 1 mL) PO Q1-4H 04/20/23 (20 mg/mL) oral solution PRN moderate to severe pain or shortness of breath #30 mL oxycodone 5 mg tablet 5 mg PO Q4H PRN pain #60 tabs 04/20/23 prochlorperazine maleate 10 mg 10 mg PO Q6H PRN nausea and 04/20/23 tablet vomiting #6 tabs zolpidem 5 mg tablet (Ambien) 5 mg PO QHS #30 tabs 05/11/23 fentanyl 100 mcg/hr transdermal 1 patch transdermal Q72H #10 ea 05/24/23 patch Allergies Allergy/AdvReac Type Severity Reaction Status Date / Time Sulfa (Sulfonamide Allergy Severe Swelling/Ed Unverified 05/24/23 11:46 Antibiotics) jostin Review of Systems All systems reviewed & are unremarkable except as noted in HPI and below PFSH All Active Problems (Updated 05/26/23 @ 18:45 by RENAE Hernandez) Nausea (Acute) Lumbar transverse process fracture (Acute) Weakness (Acute) Right shoulder pain (Acute) Multiple falls (Acute) Back contusion (Acute) Insomnia (Acute) Unintentional weight loss (Acute) Hypoxia (Acute) Cancer related pain (Acute) Advanced care planning/counseling discussion (Acute) Palliative care patient (Acute) Bilateral lung cancer (Acute) Adenocarcinoma from 2020 biopsy COVID (Acute) Suicidal ideation (Acute) Depression (Chronic) Deliberate self-cutting (Acute) Other social stressor (Acute) Agitation (Acute) Hemoptysis (Acute) Thumb injury (Acute) Abnormal chest CT (Acute) GERD (gastroesophageal reflux disease) (Chronic) Hypercholesterolemia (Chronic) Suicidal thoughts (Acute) Leukocytosis (Chronic) Tobacco abuse (Chronic) Suicidal ideation (Acute) Anxiety (Chronic) Depression (Chronic) COPD (chronic obstructive pulmonary disease) (Chronic) Depression (Chronic) Bipolar disorder (Chronic) Depression with suicidal ideation (Acute) Medical History Depressed Stress Suicidal thoughts Shingles Suicidal ideations Traumatic pneumothorax 2017, chest tube x2 Bipolar disorder Surgical History History of ankle surgery S/P thoracostomy tube placement Social History Smoking/Tobacco Use Status: Current every day Tobacco Type: cigarettes Smoking risk assessment performed?: Yes Alcohol Intake: never Drug use: Daily Substance use type: marijuana Details: Pt reports cannabis use for relaxation, pain management Housing: house Current gender identity: male Do you feel safe at home: No (does not feel safe with self) Do you feel safe in your relationship?: Yes Additional Social history: Lives in a private apartment. Has [facility] case management Exam Narrative Exam Narrative: GENERAL APPEARANCE: Well-nourished, non-toxic, awake and alert, atraumatic, no acute distress. SKIN: Warm, pink, dry, intact, without rashes/lesions/ulcerations. HEAD: Normocephalic, atraumatic, normal hair distribution for gender/age. EYES: Pupils PERRLA, EOMs intact without nystagmus, normal conjunctiva, no exudates on lids/lashes. ENT: Nares patent, no circumoral cyanosis, no facial swelling NECK: Supple, trachea midline, painless cervical ROM. LUNGS/CHEST: Lungs -coarse diffusely, non-labored respirations, normal A/P diameter, symmetrical expansion, no chest wall deformity HEART (CV/PV): Regular rate and rhythm without murmur, no peripheral edema, no JVD. ABDOMEN: Soft, non-distended, no guarding, no tenderness, no peritoneal signs. MSK: Normal ROM, no swelling/deformity to bilateral UEs or LEs, moving all extremities without weakness, no cyanosis, spine midline without tenderness, normal curvature. NEURO: Mental Status AAOx4 - alert to person, place, time, events No facial droop, no forehead involvement. Motor: No focal weakness - strength 5/5 in bilateral UEs and LEs, proximal and distal, symmetric. Sensory: sensation intact to light touch globally. Gait normal: patient ambulated without ataxia into ED room. PSYCH: euthymic, cooperative, pleasant, appropriate speech Course Vital Signs Vital signs: Vital Signs Temperature 36.7 C 05/26/23 15:39 Pulse 97 H 05/26/23 15:39 Respiratory Rate 16 05/26/23 15:39 Blood Pressure 105/75 05/26/23 15:39 Pulse Oximetry 97 05/26/23 15:39 Temperature 36.7 C 05/26/23 15:39 Temperature Source Temporal Artery Scan 05/26/23 15:39 Pulse 97 H 05/26/23 15:39 Respiratory Rate 16 05/26/23 15:39 Blood Pressure 105/75 05/26/23 15:39 Blood Pressure Position Sitting 05/26/23 15:39 Pulse Oximetry 97 05/26/23 15:39 Oxygen Delivery Method Room Air 05/26/23 15:39 Oxygen Flow Rate 0 05/26/23 15:39 Pain Level 8 05/26/23 15:39 Medical Decision Making This dictation utilizes [id number] dictation software and may contain unedited grammatical errors. 57 y/o M with terminal cancer, social barriers to care including no medicaid application on file, recent admit and discharge yesterday for multiple falls- re-presents presents to ED today with a chief complaint of not tolerating PO intake since discharge yesterday - he feels he was discharged pre-maturely because he cannot care for himself at-home. He is worried if he falls and cannot reach his phone he will be in trouble. Patient appears baseline and has no new falls causing injury, calmly ambulated into ED. Patients' medical history: terminal lung CA, suicidal ideation, bipolar disorder. Pertinent exam findings / vital signs include benign cardiopulmonary examination, nontoxic vitals, no hypoxia, neuro intact. Differential / pathologies of concern include debility, biliary colic, gastroenteritis, Covid-19, failure to thrive. Diagnostic studies of: -CBC, CMP, Lipase, Lactate, TSH, CRP/ESR, UA (patient didn't provide sample), EKG. -mild elev WBCs 13- has been in past -lactate neg -lipase wnl -CMP no major abnormality -CRP mild elev, unremarkable -TSH wnl -EKG benign, reporting no chest pain Interventions of: -IVF, zofran, patient felt better and wanted to return home. - Palliative care contact provider - Rizwana Locke, TAPPER OPERATOR - [facility] size worker - Denise Swan, Property Management Coordinator - Lacy Antoine, who is working on placement- application is pending, and he can be placed per consult with them. -Lives independently, has home health a few times a week, TEST DESK OPERATOR delivers meds - PCP Provider Dr. Chung Perry ED Course/Assessment/Plan: Patient well-known to the ED presents with no acute complaints reports a fall last night with no injury and reports some nausea and denies active vomiting, reports some loose stool, this was mostly a social visit where the patient was attempting to be placed, I did spend some time on the phone with his mental health import coordinator who filled me in on some details in regards to his Medicaid status. His Medicaid application has been filed, he should be eligible for placement. I discussed this with the patient and that he could likely wait at home to be placed and that he does qualify for hospice and there are people working on this from behind the scenes, I did debt management counselor him not to be found no real medical reason to admit today and he did wish to return home of his own accord before all results had been given, he did have mild leukocytosis but did not provide a urine sample to check for UTI. Findings not consistent with sepsis, respiratory failure. Disposition of Nausea. Patient verbalized understanding of the plan and return to ED criteria and engaged in shared decision making. Medical Records Medical records reviewed: Yes I reviewed the patient's medical records. Lab Data Lab results reviewed: Yes I reviewed the patient's lab results. Labs: 05/26/23 18:15 Blood Blood Culture - Pending Laboratory Tests Range/Units 05/26/23 05/26/23 16:28 16:38 WBC (4.4-10.8) 10^3/uL 13.49 H RBC (4.36-5.78) 10^6/uL 4.48 Hgb (13.5-17.5) g/dL 9.4 L Hct (40.0-50.0) % 29.7 L MCV (80-95) fL 66 L MCH (27.0-33.0) pg 21.0 L MCHC (32.0-36.0) % 31.6 L RDW (11.8-14.1) % 17.7 H Plt Count (130-400) 10^3/uL 420 H MPV (8.0-11.0) fL 10.1 Immature Gran % 0.5 Neutrophils % 85.9 Lymphocytes % 7.3 Monocytes % 5.0 Eosinophils % 1.0 Basophils % 0.3 Nucleated RBC % (0.0-0.3) % 0.0 Absolute Neutrophils (1.2-6.7) 10^3/uL 11.59 H Absolute Lymphocytes (1.2-3.4) 10^3/uL 0.98 L Absolute Monocytes (0.1-0.8) 10^3/uL 0.67 Absolute Eosinophils (0.0-0.7) 10^3/uL 0.13 Absolute Basophils (0.0-0.2) 10^3/uL 0.04 RBC Morphology See Below Hypochromasia 1+ Microcytosis 2+ ESR (0-20) mm/hr 47 H VBG Lactate (0.6-1.4) mmol/L 0.9 Sodium (136-145) mmol/L 132 L Potassium (3.5-5.1) mmol/L 3.2 L Chloride (98-107) mmol/L 97 L Carbon Dioxide (21.0-32.0) mmol/L 25.6 Anion Gap (3-11) mmol/L 9.4 BUN (7-18) mg/dL 19 H Creatinine (0.70-1.30) mg/dL 0.6 L Est GFR (CKD-EPI 2020) (mL/min/1.73m2) 111.89 Glucose (74-106) mg/dL 97 Calcium (8.5-10.1) mg/dL 8.9 Magnesium (1.8-2.4) mg/dL 1.9 Total Bilirubin (0.2-1.0) mg/dL 0.6 AST (15-37) U/L 88 H ALT (16-63) U/L 35 Alkaline Phosphatase (46-116) U/L 124 H C-Reactive Protein (0.0-0.3) mg/dL 21.23 H NT-Pro-B Natriuret Pep (<300) pg/mL 855 H Total Protein (6.4-8.2) g/dL 6.8 Albumin (3.4-5.0) g/dL 2.4 L Lipase (16-77) U/L 12 L TSH (0.36-3.74) uIU/mL 2.98 Quality:SDOH Health Related Social Needs: No Data to Display Discharge Plan Disposition Patient Disposition: Home Condition: Stable Discharge Details Clinical Impression: Nausea Primary Care Provider: Chung Perry ED Provider: Mickey Gonzales Home Meds and New Rx's Prescriptions: Continued lidocaine 5 % adhesive patch,medicated 1 patch topical DAILY Qty: 30 0RF Rx Instructions: leave on most painful area for up to 12 hrs for rib pain after fall zolpidem [Ambien] 5 mg tablet 5 mg PO QHS Qty: 30 0RF fentanyl 100 mcg/hr patch 72 hour 1 patch transdermal Q72H MDD 100 mcg/hr Qty: 10 0RF Rx Instructions: for cancer-related pain sennosides [senna] 8.6 mg tablet 8.6 mg PO DAILY Qty: 90 3RF oxycodone 5 mg tablet 5 mg PO Q4H MDD 30 mg PRN (Reason: pain) Qty: 60 0RF Rx Instructions: for cancer related pain acetaminophen 650 mg suppository 650 mg MS Q6H PRN (Reason: fever, mild pain) Qty: 6 0RF Rx Instructions: Hospice Patient hyoscyamine sulfate 0.125 mg tablet,disintegrating 0.125 - 0.25 mg PO Q4H PRN (Reason: secretions) Qty: 24 0RF Rx Instructions: Hospice Patient lorazepam 1 mg tablet 1 mg PO Q4H PRN (Reason: anxiety, FLYNN or nausea) Qty: 6 5RF Rx Instructions: Hospice Patient haloperidol lactate 2 mg/mL concentrate 1 mg PO Q6H PRN (Reason: agitation) Qty: 15 0RF Rx Instructions: Hospice Patient morphine concentrate 100 mg/5 mL (20 mg/mL) solution 5 - 20 mg PO Q1-4H MDD 5 mL PRN (Reason: moderate to severe pain or shortness of breath) Qty: 30 0RF Rx Instructions: Hospice Patient bisacodyl [Dulcolax (bisacodyl)] 10 mg suppository 10 mg MS daily PRN (Reason: constipation) Qty: 2 0RF Rx Instructions: Hospice Patient Insert 1 supp MS Daily PRN constipation (no BM in 3 days) prochlorperazine maleate 10 mg tablet 10 mg PO Q6H PRN (Reason: nausea and vomiting) Qty: 6 0RF Rx Instructions: Hospice Patient hyoscyamine sulfate 0.125 mg tablet,disintegrating 0.125 - 0.25 mg PO Q4H PRN (Reason: secretions) Qty: 24 0RF Rx Instructions: Hospice Patient hydroxyzine HCl 25 mg tablet 25 mg PO BID PRN olanzapine [Zyprexa] 10 mg Tablet 20 mg PO HS bupropion HCl 150 mg tablet extended release 24 hr 150 mg PO QAM trazodone 50 mg tablet 50 mg PO HS albuterol sulfate 90 mcg/actuation HFA aerosol inhaler 2 puff inhalation QID PRN (Reason: shortness of breath or wheezing) Qty: 8 0RF Rx Instructions: Use 1 or 2 puffs every 4-6 hours as needed for shortness of breath or wheezing. sertraline 100 mg tablet 150 mg PO DAILY levothyroxine 100 mcg tablet 100 mcg PO DAILY magnesium oxide 400 mg (241.3 mg magnesium) tablet 400 mg PO DAILY Patient Comments: states not taking 02/27/23 gabapentin 300 mg capsule 300 mg PO HS omeprazole 20 mg capsule,delayed release(DR/EC) 20 mg PO DAILY melatonin 10 mg capsule 10 mg PO HS Discharge Instructions Instructions: Acute Nausea and Vomiting (ED) Additional Instructions: You were seen in the emergency department, you feel that you are discharged prematurely yesterday and state that you had nausea and vomiting overnight as well as a fall with no injury. Your labs are fairly consistent with prior labs taken in April, you tolerated oral intake here in the emergency department. He wished to be discharged home. I spoke with your correctional casework specialist, your Medicaid application has been filed and so you are eligible for placement, you may wait at home and you have multiple caseworkers trying to find a place for you in the meantime. We did perform blood cultures to check for any kind of blood infection but otherwise your laboratory workup is unremarkable. Please return for any falls resulting in injury or intractable nausea and vomiting. Referrals: Chung Perry [Primary Care Provider] - Discharge Data Discharge Date/Time-TO BE ENTERED AT DEPARTURE: 05/26/23 19:34
[2023-05-26 16:42] LABS: Lactate 0.9 mmol/L (0.6-1.4)
[2023-05-26 16:44] LABS: Abs Immature Grans 0.07 10^3/uL (0.0-0.06); Absolute Basophil Count 0.04 10^3/uL (0.0-0.2); Absolute Eosinophil Count 0.13 10^3/uL (0.0-0.7); Absolute Monocyte Count 0.67 10^3/uL (0.1-0.8); Absolute Neutrophil Count 11.59 10^3/uL (1.2-6.7); Basophils % 0.3; HCT 29.7 % (40.0-50.0); HGB 9.4 g/dL (13.5-17.5); Immature Grans % 0.5; Lymphocytes % 7.3; MCHC 31.6 % (32.0-36.0); MCV 66 fL (80-95); MPV 10.1 fL (8.0-11.0); Neutrophils % 85.9; Platelet Count 420 10^3/uL (130-400); RBC 4.48 10^6/uL (4.36-5.78); RDW 17.7 % (11.8-14.1); RDW-SD 41.6 fL; WBC 13.49 10^3/uL (4.4-10.8)
[2023-05-26] MEDS: Haloperidol 5 MG/ML VIAL 2 MG IVP (16:46)
[2023-05-26] MEDS: Lactated Ringers 1,000 ML 1000 ML IV (16:46)
[2023-05-26 16:47] LABS: ESR 47 mm/hr (0-20)
[2023-05-26 16:49] LABS: Absolute Lymphocyte Count 0.98 10^3/uL (1.2-3.4)
[2023-05-26 17:00] LABS: Diff Comment RBC Morph Reviewed; Hypochromasia 1+; Microcytosis 2+
[2023-05-26 17:10] LABS: ALT 35 U/L (16-63); AST 88 U/L (15-37); Albumin 2.4 g/dL (3.4-5.0); Alkaline Phosphatase 124 U/L (46-116); Anion Gap 9.4 mmol/L (3-11); BUN 19 mg/dL (7-18); Bilirubin, Total 0.6 mg/dL (0.2-1.0); C-Reactive Protein 21.23 mg/dL (0.0-0.3); CO2 25.6 mmol/L (21.0-32.0); CREATININE 0.6 mg/dL (0.70-1.30); Calcium 8.9 mg/dL (8.5-10.1); Chloride 97 mmol/L (98-107); Estimated GFR 111.89 (mL/min/1.73m2); Glucose 97 mg/dL (74-106); Lipase 12 U/L (16-77); Magnesium 1.9 mg/dL (1.8-2.4); NT-proBNP 855 pg/mL (<300); Potassium 3.2 mmol/L (3.5-5.1); Sodium 132 mmol/L (136-145); TSH (W/Ref FT4) 2.98 uIU/mL (0.36-3.74); Total Protein 6.8 g/dL (6.4-8.2)
--- NOTE | 2023-05-26 17:11 | NUR.NOTE ---
Ozzy Webster friend [phone] Nursing Note:
[2023-05-26] MEDS: Potassium Chloride 20 MEQ TABCR 40 MEQ PO (18:18)
[2023-05-26] MEDS: POTASSIUM CHLORIDE 10 MEQ/100 ML BAG 100 MEQ IVPB (18:18)
== END 2023-05-26 19:34 | disposition home or self-care (01) ==
PROVIDERS: Emergency Provider Physician Assistant; PCP Family Medicine
DX: R11.2 Nausea with vomiting, unspecified (principal); R53.1 Weakness; C34.91 Malignant neoplasm of unspecified part of right bronchus or lung; C34.92 Malignant neoplasm of unspecified part of left bronchus or lung; Z91.81 History of falling
CPT/HCPCS: 80053; 83690; 85652; 87040; 93005; 96361; 96365; 96375; 99284; 83605; 83735; 83880; 84443; 85025; 86140; 93010; 99283; J1630; J3480

== ENCOUNTER 2023-06-03 09:46 | Inpatient (IN) | payer MEDICAID, SELFPAY ==
[2023-06-03] VITALS (22 sets, daily range): BP systolic 88–118; BP diastolic 60–85; PULSE 82–109; RESP 14–16; TEMP 36.2–37.3; O2SAT 90–98
--- NOTE | 2023-06-03 09:44 | ED.GENADUL_ITS ---
HPI General Stated Complaint: GenMedical ABA: 3 Date/Time Provider Initiated Documentation: 06/03/23 10:11. HPI Narrative: MDM This is a chronically ill-appearing normothermic but mildly tachycardic 57-year-old male with weakness and falls concerning for multiple etiologies. Given reported head strike will obtain CT head. Patient has history of lung cancer which certainly raises possibility of hyponatremia though he is not altered. No chest pain to suggest ACS however will obtain troponin and ECG. Patient has not been vomiting so my suspicion is low for acute electrolyte abnormalities. He does have equal breath sounds so my suspicion is low for pneumothorax. Given cancer he certainly may have pleural effusions however his oxygen saturation is within normal limits on room air so I do not feel that he requires an emergent thoracentesis. No pain out of proportion to suggest necrotizing soft tissue infection. Patient does have some right upper extremity weakness which raises possibility of CVA. Given unclear onset of symptoms patient is not a tPA candidate. Not altered to suggest encephalitis. No history of seizures to suggest need for EEG. 10:35 AM Comprehensive metabolic panel showing very mild hyponatremia with a serum sodium of 135. Mild anion gap similar to prior. Normal bicarbonate not consistent with DKA. Mildly elevated alkaline phosphatase. Hypoalbuminemia improved compared CBC shows leukocytosis similar to prior. Improved microcytic anemia. Worsened thrombocytosis. Negative troponin. Normal magnesium. 11:[address] head read as showing a 1.6 cm hemorrhagic and partially calcified mass hide in the left frontal lobe at the vertex with surrounding vasogenic edema compatible with metastasis. Also noted was equivocal tiny left frontal cortical lesion. Radiology advises MRI with and without. Will consult neurosurgery at [facility]. Chest x-ray showing large left upper lobe tumor multiple right lung opacification similar to prior. Pelvis CT with no acute fracture. 11:30 AM I met the patient and explained his CT scan concerning for metastatic disease. He was not aware of this yet. He is also concerned about his multiple falls at home. I have ordered a physical therapy consultation from the ED. 12 PM I spoke with Dr. Hills from neurology at [facility]. She advised repeat CT scan in 6 hours to ensure that the patient's potential brain met was not bleeding. She also advised hospitalization for MRI with and without tomorrow. She also advised twice daily levetiracetam 500 mg as patient certainly could have been having seizures causing his falls and possibly his right upper extremity weakness. Finally she recommended deferring steroids at this point in time. 1:20 PM I spoke with Dr. Davalos who agreed graciously to accept the patient for hospitalization. At his request I paged care management. I spoke with Vikki and she connected with Dr. Davalos. Chronic conditions affecting the care of the patient: Lung malignancy History obtained from an outside historian: Paramedics External record review: [facility] EMR Diagnostic interpretations performed by me: Per my independent interpretation chest x-ray shows: Chest x-ray with persistent left upper lobe mass similar to prior dated last year Per my independent interpretation EKG shows: Narrow complex normal sinus rhythm at a rate of 96. Normal axis. Intervals within normal limits. No acute ST segment abnormalities. Left lateral chest wall T wave flattening and inferior T wave flattening. Compared to prior dated earlier this year T wave changes are persistent. No acute injury pattern. ]Medications: Levetiracetam Social determinants of health affecting disposition: N/A Management discussed with: Neurology at [facility] and hospitalist Treatment/interventions considered: Discharge but given falls elected for ho spitalization Response to therapies provided: N/A HPI This is a 57-year-old male with reportedly terminal lung cancer arrived to the emergency department via paramedics in the setting of a fall. Patient reportedly felt weak this morning and fell to the floor when getting out of bed. Preceding chest pain nausea and vomiting. He does feel that he hit his head. He has some difficulty breathing and reports that this is normal. He reports he is a DNR/DNI. He denies routine alcohol or illicits but does smoke tobacco every day. He is not anticoagulated. He denies nausea or vomiting. He has not been ambulatory since his fall. No recent fevers no abdominal pain. Exam General: Chronically ill-appearing in no acute distress speaking in complete sentences. Head: Normocephalic, atraumatic. Eye:[Pupils equal, round reactive to light.] Extraocular eye movements intact. No conjunctival injection. No scleral icterus. Ear, nose, mouth, throat: Grossly normal inspection. Normal voice, handling secretions normally. Neck: Trachea midline. Cardiovascular: Well-perfused distal extremities. Rapid regular rate Respiratory: Nonlabored respiration. Decreased breath sounds bilateral bases left greater than right. Gastrointestinal: Nondistended abdomen. Musculoskeletal: No edema. Moving all 4 extremities spontaneously. Bilateral upper and lower extremities nontender. Mild right upper weakness. Skin: Normal for age and race, grossly normal temperature and turgor. No acute rash. Neurologic: Alert and appropriate, no apparent acute deficits. GCS 15. 5 out of 5 lower extremity strength on dorsi and plantar flexion. Psychiatric: Mood and manner are appropriate. Grooming and personal hygiene are appropriate. Related Data Home Medications Medication Instructions Recorded Confirmed sennosides 8.6 mg tablet (senna) 8.6 mg PO DAILY Opioid induced 11/07/22 06/03/23 constipation #90 tabs levothyroxine 100 mcg tablet 100 mcg PO DAILY 11/23/22 06/03/23 melatonin 10 mg capsule 10 mg PO HS 11/23/22 06/03/23 omeprazole 20 mg capsule,delayed 20 mg PO DAILY 11/23/22 06/03/23 release albuterol sulfate 90 mcg/actuation 2 puff inhalation QID PRN 12/19/22 06/03/23 aerosol inhaler shortness of breath or wheezing #8 grams lorazepam 1 mg tablet 1 mg PO Q4H PRN anxiety, FLYNN or 04/20/23 06/03/23 nausea #6 tabs prochlorperazine maleate 10 mg 10 mg PO Q6H PRN nausea and 04/20/23 06/03/23 tablet vomiting #6 tabs fentanyl 100 mcg/hr transdermal 1 patch transdermal Q72H #10 ea 05/24/23 06/03/23 patch zolpidem 5 mg tablet (Ambien) 5 mg PO QHS #30 tabs 05/31/23 06/03/23 olanzapine 10 mg disintegrating 10 mg PO BID PRN anxiety #10 tabs 06/01/23 06/03/23 tablet oxycodone 5 mg tablet 5 mg PO Q4H PRN pain #60 tabs 06/01/23 06/03/23 Previous Rx's Medication Instructions Recorded sennosides 8.6 mg tablet (senna) 8.6 mg PO DAILY Opioid induced 11/07/22 constipation #90 tabs albuterol sulfate 90 mcg/actuation 2 puff inhalation QID PRN 12/19/22 aerosol inhaler shortness of breath or wheezing #8 grams lorazepam 1 mg tablet 1 mg PO Q4H PRN anxiety, FLYNN or 04/20/23 nausea #6 tabs prochlorperazine maleate 10 mg 10 mg PO Q6H PRN nausea and 04/20/23 tablet vomiting #6 tabs fentanyl 100 mcg/hr transdermal 1 patch transdermal Q72H #10 ea 05/24/23 patch zolpidem 5 mg tablet (Ambien) 5 mg PO QHS #30 tabs 05/31/23 olanzapine 10 mg disintegrating 10 mg PO BID PRN anxiety #10 tabs 06/01/23 tablet oxycodone 5 mg tablet 5 mg PO Q4H PRN pain #60 tabs 06/01/23 Allergies Allergy/AdvReac Type Severity Reaction Status Date / Time Sulfa (Sulfonamide Allergy Severe Swelling/Ed Unverified 06/03/23 09:42 Antibiotics) jostin PFSH All Active Problems (Updated 06/03/23 @ 19:27 by Rachel Pratt APRN) Weakness of right leg (Acute) Hyponatremia (Acute) Pain (Acute) Discharge planning issues (Acute) On deep vein thrombosis (DVT) prophylaxis (Acute) RUE weakness (Acute) Hx of falling (Acute) Lung cancer metastatic to brain (Acute) Nausea (Acute) Lumbar transverse process fracture (Acute) Weakness (Acute) Right shoulder pain (Acute) Multiple falls (Acute) Back contusion (Acute) Insomnia (Acute) Unintentional weight loss (Acute) Hypoxia (Acute) Cancer related pain (Acute) Advanced care planning/counseling discussion (Acute) Palliative care patient (Acute) Bilateral lung cancer (Acute) Adenocarcinoma from 2020 biopsy COVID (Acute) Suicidal ideation (Acute) Depression (Chronic) Deliberate self-cutting (Acute) Other social stressor (Acute) Agitation (Acute) Hemoptysis (Acute) Thumb injury (Acute) Abnormal chest CT (Acute) GERD (gastroesophageal reflux disease) (Chronic) Hypercholesterolemia (Chronic) Suicidal thoughts (Acute) Leukocytosis (Chronic) Tobacco abuse (Chronic) Suicidal ideation (Acute) Anxiety (Chronic) Depression (Chronic) COPD (chronic obstructive pulmonary disease) (Chronic) Depression (Chronic) Bipolar disorder (Chronic) Depression with suicidal ideation (Acute) Medical History Depressed Stress Suicidal thoughts Shingles Suicidal ideations Traumatic pneumothorax 2017, chest tube x2 Bipolar disorder Surgical History History of ankle surgery S/P thoracostomy tube placement Social History Smoking/Tobacco Use Status: Current every day Tobacco Type: cigarettes Smoking risk assessment performed?: Yes Alcohol Intake: never Drug use: Daily Substance use type: marijuana Details: Pt reports cannabis use for relaxation, pain management Housing: apartment Current gender identity: male Do you feel safe at home: No (does not feel safe with self) Do you feel safe in your relationship?: Yes Additional Social history: Lives in a private apartment. Has [facility] case management Course Vital Signs Vital signs: Vital Signs Temperature 36.6 C 06/03/23 09:36 Pulse 109 H 06/03/23 09:36 Respiratory Rate 16 06/03/23 09:36 Blood Pressure 88/61 L 06/03/23 09:36 Pulse Oximetry 96 06/03/23 09:36 Temperature 36.6 C 06/03/23 09:36 Pulse 109 H 06/03/23 09:36 Respiratory Rate 16 06/03/23 09:36 Blood Pressure 88/61 L 06/03/23 09:36 Pulse Oximetry 96 06/03/23 09:36 Medical Decision Making Quality:SDOH Health Related Social Needs: No Data to Display Discharge Plan Disposition Patient Disposition: Admit to [facility] Discharge Details Clinical Impression: Lung cancer metastatic to brain, Hx of falling, RUE weakness Admit Date/Time: 06/03/23 13:21 Admit Provider: Jaime Garvey Attending Provider: Jaime Garvey Primary Care Provider: Chung Perry ED Provider: Chung Mcleod Discharge Data Discharge Date/Time-TO BE ENTERED AT DEPARTURE: 06/03/23 14:52
--- NOTE | 2023-06-03 09:45 | DI.RAD_ITS ---
Exam(s) XR CHEST 1V IN DI DEPT EXAM: XR CHEST 1V IN DI DEPT CLINICAL HISTORY: Shortness of breath. TECHNIQUE: 2D digital imaging was performed. COMPARISON: CR,XR XR RIBS LT W PA LAT CHEST from 04/07/[address] CHEST PE CTA from 04/23/2023 CR,XR XR ABDOMEN FLAT PLATE from 05/23/[address] CHEST/ABD/PEL W from 05/23/2023 FINDINGS: Single AP portable view. Large ominous mass in the left upper lobe is again noted. Minimal increased markings in the right navdeep ng. Nodular infiltrate in the right lower lobe noted, as evident on prior CT scan of 05/23/2023. No pleural effusions. No pulmonary edema. No pneumothorax. No fractures nor obvious lytic bone lesio ns. Heart size remains normal. IMPRESSION: Large malignant-appearing left upper lobe mass. The nodular infiltrates right lower lobe. Findings similar to CT scan of 05/23/2023. DATA REPOSITORY: RADIATION DOSE DELIVERED:
--- NOTE | 2023-06-03 09:45 | DI.CT_ITS ---
Exam(s) CT HEAD WO EXAM: CT HEAD WO CLINICAL HISTORY: History of falling. TECHNIQUE: Imaging Protocol: Axial computed tomography images with coronal and sagittal reformatted images were created and reviewed COMPARISON: CT CT BRAIN NECK CTA from 12/19/2022 FINDINGS: There are no skull fractures. No lytic skull lesions, given the findings in the chest. There is no fluid in the visualized paranasal sinuses. In the uppermost vertex aspect of the left frontal lobe there is a round 1.3 cm diameter hyperdense n odule with prominent surrounding vasogenic white matter edema which extends down to the corpus callos um, this finding most probably consistent with a hyperdense or possibly mildly hemorrhagic metastatic lesion, given the findings in the chest. No other lesions identified realized limitations of a non few study. IMPRESSION: There is a 1.3 cm hyperdense possibly hemorrhagic metastatic lesion in the vertex of the left frontal lobe with abundant surrounding vasogenic edema. Follow-up contrast infused MRI scan of the brain is recommended. First read by [facility]. RADIATION DOSE DELIVERED: 722.15mGy.cm Total DLP DATA REPOSITORY: All CT scans at this facility are submitted to the National Radiology Data Registry (NRDR) Dose Index Registry (DIR) with the [employer] ([employer]). RADIATION OPTIMIZATION: All CT scans at this facility use at least one of these dose optimization te chniques: automated exposure control; mA and/or kV adjustment per patient size (includes targeted exa ms where dose is matched to clinical indication); or iterative reconstruction.
[2023-06-03 09:58] LABS: Abs Immature Grans 0.08 10^3/uL (0.0-0.06); Absolute Basophil Count 0.04 10^3/uL (0.0-0.2); Absolute Eosinophil Count 0.11 10^3/uL (0.0-0.7); Absolute Lymphocyte Count 1.09 10^3/uL (1.2-3.4); Absolute Monocyte Count 0.49 10^3/uL (0.1-0.8); Absolute Neutrophil Count 11.69 10^3/uL (1.2-6.7); Basophils % 0.3; Eosinophils % 0.8; HCT 36.5 % (40.0-50.0); HGB 10.9 g/dL (13.5-17.5); Immature Grans % 0.6; Lymphocytes % 8.1; MCH 19.9 pg (27.0-33.0); MCHC 29.9 % (32.0-36.0); MCV 67 fL (80-95); MPV 9.8 fL (8.0-11.0); Monocytes % 3.6; Neutrophils % 86.6; Platelet Count 531 10^3/uL (130-400); RBC 5.47 10^6/uL (4.36-5.78); RDW 19.6 % (11.8-14.1); RDW-SD 43.8 fL
--- NOTE | 2023-06-03 10:00 | RT.EKG_ITS ---
APPROVED REPORT Exam: Resting ECG Reason for Exam: Weakness Patient Location: E HR:96 bpm ECG Measurements Heart Rate 96 AXIS TX 125 P 60 QRSd 97 QRS 68 QT 377 T 49 QTc 476 Conclusion Sinus rhythm...normal P axis, V-rate 60- 99 Narrow complex normal sinus rhythm at a rate of 96. Normal axis. Intervals within normal limits. N o acute ST segment abnormalities. Left lateral chest wall T wave flattening and inferior T wave flat tening. Compared to prior dated earlier this year T wave changes are persistent. No acute injury pa ttern.
[2023-06-03] MEDS: Normal Saline 500 ML IV ×2 (10:02→11:08)
[2023-06-03 10:14] LABS: Diff Comment RBC Morph Reviewed; Microcytosis 2+
--- NOTE | 2023-06-03 10:15 | DI.RAD_ITS ---
Exam(s) XR PELVIS AP EXAM: XR PELVIS AP CLINICAL HISTORY: History of falling. TECHNIQUE: 2D digital imaging was performed. COMPARISON: No exams were available for comparison FINDINGS: Single AP view pelvis No evidence of pelvic nor hip fracture and no degenerative changes in the hips. Bone density is norm al. There are no lytic osseous lesions, given the findings in the chest. IMPRESSION: No pelvic nor hip fractures. No osseous lesions evident. DATA REPOSITORY: RADIATION DOSE DELIVERED:
[2023-06-03 10:18] LABS: ALT 33 U/L (16-63); AST 43 U/L (15-37); Albumin 2.6 g/dL (3.4-5.0); Alkaline Phosphatase 138 U/L (46-116); BUN 23 mg/dL (7-18); Bilirubin, Total 0.5 mg/dL (0.2-1.0); Calcium 9.7 mg/dL (8.5-10.1); Chloride 99 mmol/L (98-107); Estimated GFR 87.24 (mL/min/1.73m2); Glucose 172 mg/dL (74-106); Potassium 4.5 mmol/L (3.5-5.1); Sodium 135 mmol/L (136-145); Total Protein 7.8 g/dL (6.4-8.2); Troponin I < 50 ng/L (< or =60)
--- NOTE | 2023-06-03 10:52 | DI.VRAD_ITS ---
PROCEDURE INFORMATION: Exam: CT Head Without Contrast Exam date and time: 06/03/2023 10:26 AM Age: 57 years old Clinical indication: Other: HX of falling. History of lung cancer. TECHNIQUE: Imaging protocol: Computed tomography of the head without contrast. Radiation optimization: All CT scans at this facility use at least one of these dose optimization techniques: automated exposure control; mA and/or kV adjustment per patient size (includes targeted exams where dose is matched to clinical indication); or iterative reconstruction. COMPARISON: CT BRAIN NECK CTA 12/19/2022 4:21 PM FINDINGS: Brain: An approximately 1.6 cm hyperdense mass is present at the high left posterior left frontal vertex (series 8, image 33; series 2, image 49). There is moderate reactive vasogenic edema in the surrounding white matter. Equivocal tiny hyperdense lesion left anterolateral frontal cortex (series 2, image 31 cervical series 8, image 25). Cerebral ventricles: The ventricles are stable size and position compared to 12/19/2022. Paranasal sinuses: Visualized portions of paranasal sinuses are well aerated. Mastoid air cells: Visualized portions of mastoid sinuses are not opacified. Bones/joints: No obvious fracture or aggressive destructive lesion involving the cranium. Soft tissues: Other than as stated above, no obvious acute abnormality. IMPRESSION: 1.6 cm hemorrhagic or partially calcified mass high in the left frontal lobe at the vertex with surrounding vasogenic edema, compatible with metastasis. Equivocal tiny left frontal cortical lesion could be artifact although an additional tiny metastasis is not excluded. Nonemergent MRI could provide more sensitive assessment for additional intracranial metastases, if required for treatment planning. Dictated and Authenticated by: Sohan Cyr MD. Ordering:ALBERTO Wilkes MD
--- NOTE | 2023-06-03 11:00 | DI.VRAD_ITS ---
PROCEDURE INFORMATION: Exam: XR Chest Exam date and time: 06/03/2023 10:31 AM Age: 57 years old Clinical indication: Other: Shortness of breath TECHNIQUE: Imaging protocol: Radiologic exam of the chest. Views: 1 view. COMPARISON: CT CHEST/ABD/PEL W 05/23/2023 2:07 PM FINDINGS: Lungs: Large left upper lobe tumor mass and multiple right lung parenchymal opacities appear very similar to CT quantometer operator image of 05/23/2023. No definite new infiltrate identified. Pleural spaces: No significant pleural fluid. No pneumothorax detected. Heart/Mediastinum: Heart size within normal range. No pulmonary vascular congestion. Bones/joints: No obvious acute abnormality. IMPRESSION: Large left upper lobe tumor and multiple right lung opacities appear similar to 05/23/2023. Dictated and Authenticated by: Sohan Cyr MD. Ordering:ALBERTO Wilkes MD
--- NOTE | 2023-06-03 11:02 | DI.VRAD_ITS ---
PROCEDURE INFORMATION: Exam: XR Pelvis Exam date and time: 06/03/2023 10:35 AM Age: 57 years old Clinical indication: Other: HX of falling. Lung cancer. TECHNIQUE: Imaging protocol: Radiologic exam of the pelvis. Views: 1 or 2 view. COMPARISON: CT CHEST/ABD/PEL W 05/23/2023 2:07 PM FINDINGS: Bones/joints: No obvious acute pelvic fracture deformity or destructive osseous lesion is identified. Soft tissues: Unremarkable. IMPRESSION: No acute pelvic fracture identified. Dictated and Authenticated by: Sohan Cyr MD. Ordering:ALBERTO Wilkes MD
--- NOTE | 2023-06-03 12:42 | NUR.NOTE ---
Levetiracetam [id number] for Pt. Order written as 250mg X2 tab. 1 500mg Tab given per what was available on hand per pharmacy. Unable to scan med due to different dosage.Nursing Note:
[2023-06-03] MEDS: levETIRAcetam 500 MG TAB PO (12:45)
[2023-06-03 13:00] LABS: Troponin I < 50 ng/L (< or =60)
--- NOTE | 2023-06-03 13:21 | PT.ERNOTE ---
Date of service: 06/03/23 Time of Service: 12:50 PT Emergency Department Note Patient Location: Emergency Room Referring Provider: Chung Mcleod MD PT Diagnosis: multiple falls Diagnosis: evaluate for safe discharge given multiple falls at home Date of Service: June 03, 2023 09:46 Precautions: fall risk Patient Profile/Admitting Diagnosis:? The patient is a 57 yo male who came to the ED after a fall this morning, reportedly in his bathroom during which he struck his head. CT this morning: There is a 1.3 cm hyperdense possibly hemorrhagic metastatic lesion in the vertex of the left frontal lobe with abundant surrounding vasogenic edema. Neruro recommended a f/u CT to be performed today at 5 pm. Patient lives alone in [facility]. Reports no family nearby. His home is one level with several steps to enter. Normally walks to the grocery store and buys easy to prepare food. Does minimal cooking/cleaning. Does not drive. 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 patient reports from crush injury while [employer] Subjective: Patient reports he worked in [employer] for 18 years. Objective: Spoke with Jyoti about vitals with sitting on EOB, refusing to stand/ambulate and potential right sided neglect Mental Status: Patient is alert and oriented. Pain: No c/o pain. Vital Signs: Checked by nursing CLERK TO JUSTICE: 110/85, 109, 95% on RA. sitting on EOB with c/o dizziness: 95/78 HR 104 O2 initially 88% but not certain if secondary to poor circulation in finger. changed fingers and increased to 92%. After sitting at EOB x 3 mins: 107/82 HR 102 93% on RA. ROM/Strength: Upper extremities: Holding right (dominant) UE under the blanket in pronation. 3 cues from therapist to have patient open and close his right hand when able to perform on left with one cue only. Able to actively perform left elbow flexion with one cue, but required 5 cues to perform active right elbow flexion. Bilateral UE strength grossly 4-/5 and symmetric. Lower extremities: Patient had right ankle resting in extreme ankle inversion upon observation when blankets removed. Able to perform short arc quad only in supine when requested straight leg raise. When asked why, patient reported feeling lethargic (not weak, not pain). Able to perform active heel slides bilaterally with one cue only. Sensation: reports no numbness or tingling at rest or with palpation throughout UE or LE. Soft tissue/edema: No gross abnormalities observed Bed Mobility: Supine to sit from gurney initial attempt with patient reaching for therapist hand and reporting needing help with minimal movement of right UE or LE observed. When given request to sit on the edge of bed for a few minutes, he was able to perform with CGA only. Patient reported dizziness sitting on EOB with vitals as above. Sit to supine with good movement of left LE (trailing leg) but difficulty with lifting right LE into bed and using his own UE to assist with left LE crossed over right. max assist to scoot safely onto the gurney. Patient did not wish or feel that he needed to reposition. Transfers: Sit to stand: refused therapist. Gait: refused therapist. RN and BLOOD AND PLASMA LABORATORY ASSISTANT reported patient was able to walk out of his room to a w/c, transfer in the bathroom and walk from just outside his room back into his room without assist earlier when he requested toileting. Balance: able to sit on edge of gurney with supervision only without leaning or loss of balance. [facility] AM-PAC 6 clicks Basic Mobility Inpatient Short Form: Raw Score:?13? CMS Score:64.91% disability Informed Consent/Education:? Patient instructed in purpose of PT consult and plan of care and is agreeable Assessment:? The patient is a 57 yo male who came to the ED after a fall this morning, reportedly in his bathroom during which he struck his head.? Patient presents with decreased strength, possibly right sided neglect, decreased functional mobility, decreased balance and an inability to consistently ambulate. The patient would benefit from skilled PT services to improve these impairments to maximize function and safety. Patient is assessed as:? High 77641 complexity based on the following: History: depression, anxiety, cancer, lives alone, multiple falls Examination: see above Presentation:??? Unstable/unpredictable ? Decision Making:? High (3-4 history, 4+ exam, unstable, challenging- 45 mins) Physical Therapy Goals: 1 week Able to get in/out of bed with supervision only. Able to perform sit to/from stand with supervision only. Able to walk 100 feet with rolling walker with supervision only. Able to go up and down 2-3 steps with 1 rail with contact guard assist only. Independent with home exercise program Plan of Care/Treatment Plan: 1-2x/day, 7 days/week x 1 week. Plan of care has been reviewed with the CLERK TO JUSTICE providing the service under Physical Therapy direction. Initiate Physical Therapy intervention for strengthening, bed mobility, transfers, gait, stairs, balance training, use of assistive device. DISCHARGE RECOMMENDATIONS: May need additional care at home vs placement. Billing Charges: Treatment Units Time Duration Manual Therapy(73968) Hands-on techniques to modulate pain increase joint range of motion reduce or eliminate soft tissue swelling, inflammation, or restriction facilitate relaxation and improve contractile and non-contractile tissue extensibility ? ? Therapeutic Procedures (29127) Instruction in therapeutic exercises to develop strength and endurance, range of motion and flexibility. HEP instruction and review: Provided skilled instruction in proper exercise performance: Provided skilled manual cues to facilitate proper muscle recruitment and/or movement pattern Neurological Re-Education(53724) To improve balance, coordination, kinesthetic and proprioceptive sensations. ? ? Ultrasound(78539) To promote healing. ? ? Gait Training(26305) ? ? Therapeutic Activity(04976) Instruction in dynamic activities with one on one patient contact by the provider to improve functional performance as follows: 1 ? ?10 Self Care Training(85908) ? ? E-Stim (Attended)(79102) ? ? Low IE(54009) Mod IE(14412) ? ? High IE(60335) ?1 ?15 Time Coded Treatment Time ? 10 Total Treatment Time ? 25
[2023-06-03] MEDS: levETIRAcetam 1,000 MG in Normal Saline 100 ML 400 MG IVPB (14:13)
--- NOTE | 2023-06-03 15:57 | TELEP.MEDREC ---
Date of service: 06/03/23 Time of Service: 15:57 Telepharmacy Home Med Rec Allergies Allergies: Sulfa (Sulfonamide Antibiotics) Allergy (Severe, Unverified 06/03/23 09:42) Swelling/Edema Interview Person Interviewed: patient Quality Quality of Interview/Accuracy of Medication List: Poor Changes made to Home Medication List: DELETIONS: Lidocaine patch Additional Notes Additional Notes: Patient was unable to tell me when he last took his meds. He states he is currently wearing a fentanyl patch, but when I asked what day he applied it he says he doesn't remember. Recommended Changes Attestation: The home medication list is now updated to the best of my knowledge and is ready to be reconciled by the provider. Please contact the TelePharmacy Medication Reconciliation Pharmacist at for any questions.
--- NOTE | 2023-06-03 17:00 | DI.CT_ITS ---
Exam(s) CT HEAD WO EXAM: CT HEAD WO CLINICAL HISTORY: ? Metastatic disease hemorrhagic. TECHNIQUE: Imaging Protocol: Axial computed tomography images with coronal and sagittal reformatted images were created and reviewed COMPARISON: CT CT HEAD WO from 06/03/2023 FINDINGS: There are no skull fractures. There is no fluid in the visualized paranasal sinuses. The previously described high left frontal lobe 1.3 cm diameter round lesion is unchanged and again n oted be associated with abundant vasogenic edema. It has not increased in size. No additional findings. IMPRESSION: As above. Recommend contrast infused MRI scan. MRI scan will determine if there are additional lesi ons and also will determine if there is true hemorrhage within this hyperdense left frontal lobe lesi on or if it is just a hyperdense lesion. RADIATION DOSE DELIVERED: 681.43mGy.cm Total DLP DATA REPOSITORY: All CT scans at this facility are submitted to the National Radiology Data Registry (NRDR) Dose Index Registry (DIR) with the [employer] (ACR). RADIATION OPTIMIZATION: All CT scans at this facility use at least one of these dose optimization te chniques: automated exposure control; mA and/or kV adjustment per patient size (includes targeted exa ms where dose is matched to clinical indication); or iterative reconstruction.
--- NOTE | 2023-06-03 17:03 | HPE_ITS ---
Date of service: 06/03/23 Time of Service: 17:03 Assessment and Plan Assessment and plan (1) Lung cancer metastatic to brain: Status: Acute Assessment and plan: MRI w and w/o pending discussion with palliative and hospice Neurology consult Frna CLEMENTE Repeat Head CT: Stable after 6 hours as per discussion with [facility] Dr. Lisandro Ramos (2) Hx of falling: Status: Acute Assessment and plan: PT and OT consult for safety (3) Weakness of right leg: Status: Acute (4) RUE weakness: Status: Acute (5) Pain: Status: Acute Assessment and plan: Multimodal pain management regiment ordered (6) Hyponatremia: Status: Acute Assessment and plan: NS at 50cc/hr for 10 hours BMP in AM (7) On deep vein thrombosis (DVT) prophylaxis: Status: Acute Assessment and plan: SDC's (8) Discharge planning issues: Status: Acute Assessment and plan: CM to f/u: Hospice, SNF or rehab consideration History of Present Illness History of Present Illness Chief Complaint: Frequent falls, weakness, tachycardia Narrative: This 57 years old male with past medical history of terminal lung cancer with left brain lesion that might be possible mets, bipolar disorder, depression GERD, hyperlipidemia, COPD, and tobacco abuse presented in the ED at [facility] on 06/03/2023 for evaluation s/p fall and head strike. In the ED, head CT showed left frontal lobe partially calcified lesion with stable hemorrhage and vasogenic edema compatible with metastasis. As per neurosurgery from [facility] consult with Dr. Hills, the ED provider ordered a repeated head CT after 6 hours.recommendations also made for hospitalization for inpatient MRI with and without contrast, Fran as falls and right limb weakness could have been caused by seizures; deferral of steroids at this time remarkable labs in the ED were sodium 135, platelets 531, alkaline phosphatase 138. The hospitalist was consulted and admitted the patient to the medical surgical floor for further evaluation and management of frequent falls, right-sided weakness, left-sided frontal brain lesion. On admission to the floor, the patient denies lightheadedness, change in vision, difficulty breathing, nausea, vomiting, diarrhea, and dysuria. The patient reports right upper and lower extremity weakness starting from a while ago, stating it might of started as his cancer but is unable to orient himself in time today except for the year. Patient reports neck pain 8 out of 10, anxiety, difficulty sleeping at night, and agrees with pharmacological management of those issues. The patient stated that he would not want to receive CPR, and it would not want to be intubated; the patient is a DNR DNI. The patient stated that he would like to get better and be discharged to a facility where he would be taking care of. The patient agrees with palliative care consults and hospice consults as well as neurology consult with Dr. Paulino. He would like the MRI testing to be delayed until he speaks to palliative care and hospice. [facility] All Active Problems (Updated 06/03/23 @ 19:27 by Rachel Pratt APRN) Weakness of right leg (Acute) Hyponatremia (Acute) Pain (Acute) Discharge planning issues (Acute) On deep vein thrombosis (DVT) prophylaxis (Acute) RUE weakness (Acute) Hx of falling (Acute) Lung cancer metastatic to brain (Acute) Nausea (Acute) Lumbar transverse process fracture (Acute) Weakness (Acute) Right shoulder pain (Acute) Multiple falls (Acute) Back contusion (Acute) Insomnia (Acute) Unintentional weight loss (Acute) Hypoxia (Acute) Cancer related pain (Acute) Advanced care planning/counseling discussion (Acute) Palliative care patient (Acute) Bilateral lung cancer (Acute) Adenocarcinoma from 2020 biopsy COVID (Acute) Suicidal ideation (Acute) Depression (Chronic) Deliberate self-cutting (Acute) Other social stressor (Acute) Agitation (Acute) Hemoptysis (Acute) Thumb injury (Acute) Abnormal chest CT (Acute) GERD (gastroesophageal reflux disease) (Chronic) Hypercholesterolemia (Chronic) Suicidal thoughts (Acute) Leukocytosis (Chronic) Tobacco abuse (Chronic) Suicidal ideation (Acute) Anxiety (Chronic) Depression (Chronic) COPD (chronic obstructive pulmonary disease) (Chronic) Depression (Chronic) Bipolar disorder (Chronic) Depression with suicidal ideation (Acute) Medical History Depressed Stress Suicidal thoughts Shingles Suicidal ideations Traumatic pneumothorax 2017, chest tube x2 Bipolar disorder Surgical History History of ankle surgery S/P thoracostomy tube placement Social History Smoking/Tobacco Use Status: Current every day Tobacco Type: cigarettes Smoking risk assessment performed?: Yes Alcohol Intake: never Drug use: Daily Substance use type: marijuana Details: Pt reports cannabis use for relaxation, pain management Housing: apartment Current gender identity: male Do you feel safe at home: No (does not feel safe with self) Do you feel safe in your relationship?: Yes Additional Social history: Lives in a private apartment. Has [facility] case management Meds Allergies and Home Medications Allergies Allergy/AdvReac Type Severity Reaction Status Date / Time Sulfa (Sulfonamide Allergy Severe Swelling/Ed Unverified 06/03/23 09:42 Antibiotics) jostin Home Medications Medication Instructions Recorded Confirmed Type sennosides 8.6 mg tablet (senna) 8.6 mg PO DAILY Opioid induced 11/07/22 06/03/23 Rx constipation #90 tabs levothyroxine 100 mcg tablet 100 mcg PO DAILY 11/23/22 06/03/23 History melatonin 10 mg capsule 10 mg PO HS 11/23/22 06/03/23 History omeprazole 20 mg capsule,delayed 20 mg PO DAILY 11/23/22 06/03/23 History release albuterol sulfate 90 mcg/actuation 2 puff inhalation QID PRN 12/19/22 06/03/23 Rx aerosol inhaler shortness of breath or wheezing #8 grams lorazepam 1 mg tablet 1 mg PO Q4H PRN anxiety, FLYNN or 04/20/23 06/03/23 Rx nausea #6 tabs prochlorperazine maleate 10 mg 10 mg PO Q6H PRN nausea and 04/20/23 06/03/23 Rx tablet vomiting #6 tabs fentanyl 100 mcg/hr transdermal 1 patch transdermal Q72H #10 ea 05/24/23 06/03/23 Rx patch zolpidem 5 mg tablet (Ambien) 5 mg PO QHS #30 tabs 05/31/23 06/03/23 Rx olanzapine 10 mg disintegrating 10 mg PO BID PRN anxiety #10 tabs 06/01/23 06/03/23 Rx tablet olanzapine 10 mg tablet (Zyprexa) 10 mg PO BID PRN 06/01/23 06/03/23 History oxycodone 5 mg tablet 5 mg PO Q4H PRN pain #60 tabs 06/01/23 06/03/23 Rx Exam Narrative Exam Narrative: Constitutional The patient sitting in bed neck pain 8/10 and cooperative during the interview; short term memory loss . The patient is without acute distress but cachectic HENMT: Head is atraumatic, normocephalic,. Facial structures with gaunted appearance with severe loss of adipose tissues -cheeks and hollow inferior orbital space slighty dry mucous membrane and tongue Eyes: Well aligned Neck: no lymphadenopathy Neuro:alert and oriented to self,place.Right sided weakness to upper and lower ext. No neurological focal deficit, PERRLA on ambient light Chest:Chest is symmetrical with increased AP diameter Resp: Shallow respiratory pattern, speaks in full sentences, unlabored breathing, clear lung to the right , diminished to left lower lobe Cardio: regular rhythm, tachycardia at HR 112, S1, S2, no murmur, capillary refill<3 sec., bilateral radial and dorsalis pedis pulses are positive GI: Abdomen is scaphoid,not distended, soft and non tender, bowel sounds are present : Negative Costovertebral angle tenderness, no bladder distension Back/spine/Pelvis: No back tenderness Integumentary: No skin lesions or rash on exposed skin, skin is dry Extremities: strength 5/5 to left upper and lower ext. and 3/5 to the right side Psych: RASS 0, congruent mood and normal affect. Results Labs 06/03/23 09:50 06/03/23 09:50 Labs: Laboratory Results - last 24 hr 06/03/23 06/03/23 09:50 12:40 WBC 13.50 H RBC 5.47 Hgb 10.9 L Hct 36.5 L MCV 67 L MCH 19.9 L MCHC 29.9 L RDW 19.6 H Plt Count 531 H MPV 9.8 Immature Gran % 0.6 Neutrophils % 86.6 Lymphocytes % 8.1 Monocytes % 3.6 Eosinophils % 0.8 Basophils % 0.3 Nucleated RBC % 0.0 Absolute Neutrophils 11.69 H Absolute Lymphocytes 1.09 L Absolute Monocytes 0.49 Absolute Eosinophils 0.11 Absolute Basophils 0.04 RBC Morphology See Below Microcytosis 2+ Sodium 135 L Potassium 4.5 Chloride 99 Carbon Dioxide 24.0 Anion Gap 12.0 H BUN 23 H Creatinine 1.0 Est GFR (CKD-EPI 2020) 87.24 Glucose 172 H Calcium 9.7 Magnesium 2.0 Total Bilirubin 0.5 AST 43 H ALT 33 Alkaline Phosphatase 138 H Troponin I < 50 < 50 Total Protein 7.8 Albumin 2.6 L Last Vital Signs Temp 37.3 C 06/03/23 15:02 Pulse 100 H 06/03/23 15:02 Resp 16 06/03/23 15:02 BP 106/72 06/03/23 15:02 Pulse Ox 92 06/03/23 15:02 Time Spent Time spent with Patient: >75 minutes Time was spent: preparing to see the patient(eg.review tests), obtaining and/or reviewing separately otained hiistory, ordering medications,tests, procedures, referring, communicating with other health career specialist, indepentently interpreting results, counseling the patient and care coordination
--- NOTE | 2023-06-03 17:55 | DI.VRAD_ITS ---
Addendum created by Kendra Ramos MD on 06/03/2023 6:03:38 PM EST: THIS REPORT CONTAINS FINDINGS THAT MAY BE CRITICAL TO PATIENT CARE. The findings were verbally communicated via telephone conference with KENISHA Chua at 6:01 PM EST on 06/03/2023. The findings were acknowledged and understood. Initial report created on 06/03/2023 5:55:06 PM EST: PROCEDURE INFORMATION: Exam: CT Head Without Contrast Exam date and time: 06/03/2023 4:59 PM Age: 57 years old Clinical indication: Metastatic disease hemorrhagic TECHNIQUE: Imaging protocol: Computed tomography of the head without contrast. Radiation optimization: All CT scans at this facility use at least one of these dose optimization techniques: automated exposure control; mA and/or kV adjustment per patient size (includes targeted exams where dose is matched to clinical indication); or iterative reconstruction. COMPARISON: CT HEAD WO 06/03/2023 10:26 AM FINDINGS: Brain: There is redemonstration of a 1.5 cm round hyperdense lesion in the medial posterior aspect of the left frontal lobe. This finding is not significantly changed in appearance since the prior examination. There is edema surrounding the lesion with mild mass effect. No evidence of midline shift. No large acute territorial infarct identified. Cerebral ventricles: The ventricles and sulci are prominent in size, which is at least in part due to global cerebral volume loss. Paranasal sinuses: Visualized sinuses are unremarkable. No fluid levels. Mastoid air cells: Visualized mastoid air cells are well aerated. Bones/joints: No acute fracture. Soft tissues: Unremarkable. IMPRESSION: Stable 1.5 cm hyperdense lesion in the left frontal lobe, concerning for malignancy, which could be hemorrhagic or calcified. Mild mass effect noted without significant midline shift. Dictated and Authenticated by: Kendra Ramos MD. Ordering:ALBERTO Wilkes MD
[2023-06-03] MEDS: fentaNYL 100 MCG PATCH TD (18:50)
[2023-06-03] MEDS: Melatonin 3 MG TAB 10 MG PO (22:13)
[2023-06-03] MEDS: Zolpidem 5 MG TAB PO (22:13)
[2023-06-03] MEDS: Normal Saline 1,000 ML 50 ML IV (22:14)
[2023-06-03] MEDS: Normal Saline Flush 10 ML SYR IVP (22:14)
[2023-06-04] MEDS: levETIRAcetam 1,000 MG in Normal Saline 100 ML 400 MG IVPB ×2 (00:12→11:42)
[2023-06-04 06:46] LABS: Abs Immature Grans 0.07 10^3/uL (0.0-0.06); Absolute Basophil Count 0.05 10^3/uL (0.0-0.2); Absolute Lymphocyte Count 1.27 10^3/uL (1.2-3.4); Absolute Monocyte Count 0.67 10^3/uL (0.1-0.8); Absolute Neutrophil Count 7.75 10^3/uL (1.2-6.7); Basophils % 0.5; Eosinophils % 3.9; HCT 28.9 % (40.0-50.0); Immature Grans % 0.7; Lymphocytes % 12.4; MCH 20.7 pg (27.0-33.0); MCHC 31.1 % (32.0-36.0); MCV 67 fL (80-95); Monocytes % 6.6; Neutrophils % 75.9; Platelet Count 362 10^3/uL (130-400); RBC 4.34 10^6/uL (4.36-5.78); WBC 10.21 10^3/uL (4.4-10.8)
[2023-06-04 07:00] LABS: Anion Gap 9.2 mmol/L (3-11); BUN 18 mg/dL (7-18); CO2 24.8 mmol/L (21.0-32.0); CREATININE 0.7 mg/dL (0.70-1.30); Calcium 8.4 mg/dL (8.5-10.1); Chloride 103 mmol/L (98-107); Glucose 107 mg/dL (74-106); Magnesium 1.8 mg/dL (1.8-2.4); Potassium 3.6 mmol/L (3.5-5.1); Sodium 137 mmol/L (136-145)
[2023-06-04 07:28] LABS: Anisocytosis 1+; Diff Comment RBC Morph Reviewed
[2023-06-04 07:29] LABS: Microcytosis 2+; Poikilocytes 1+; Polychromasia Present
--- NOTE | 2023-06-04 09:02 | PGE_ITS ---
Date of Service Date of service: 06/04/23 Time of Service: 09:02 Assessment and Plan Assessment and plan (1) Lung cancer metastatic to brain: Status: Acute Assessment and plan: Again today the patient wants to wait to decide on MRI w and w/o pending results of discussion with either palliative and/or hospice Neurology consult pending Keppra IV Repeat Head CT: Stable after 6 hours as per discussion with V-Rad Dr. Lisandro Ramos Continue PT and OT (2) Weakness of right leg: Status: Acute Assessment and plan: Reported as ongoing per patient but note fromthe ED visit on 05/26/23 reported no focal weakness Findings most likely d/t above Dx Would want further imaging as neurodeficits increase but patient want to wait to see palliative care or hospice before proceeding with MRI again today (3) RUE weakness: Status: Acute Assessment and plan: As above (4) Hx of falling: Status: Acute Assessment and plan: PT and OT consult for safety No trauma bone trauma as per imaging on 06/03 (5) Pain: Status: Acute Assessment and plan: Multimodal pain management regiment ordered on 06/03 The patient presented in the ED with an old fentanyl patch on. The patient was unable to state the duration of application of this fentanyl patch. Continue fentanyl patch of 100 mcg applied on 114 at 1900. This morning the patient is pain-free, extremely lethargic, breathing at 8 at times. Fentanyl patch discontinued, and reevaluating MMI over 24 hours for new dosage. Will continue multimodal pain management with as needed IV morphine and schedule acetaminophen Dr. Beard from palliative care to be in this afternoon, will also consult for option in pain management depending on the patient decision regarding his care (6) Hyponatremia: Status: Acute Assessment and plan: NS at 50cc/hr for 10 hours on 06/03 Na is 137 BMP in AM (7) On deep vein thrombosis (DVT) prophylaxis: Status: Acute Assessment and plan: SDC's (8) Hypoxemia: Status: Acute Assessment and plan: Oxygen 2 L via nasal cannula Fentanyl patch discontinued patient now on as needed morphine and scheduled APAP Consideration given to Narcan, but due to chronic pain in the setting of metastatic neoplasm will hold for now and closely monitor for increment in oxygen needs as well as in lethargy. VBG completed: No hypercapnia, pO2 of 87on oxygen supplementation (9) Lethargy: Status: Acute Assessment and plan: As above (10) Anemia: Status: Chronic Assessment and plan: Present on labs drawn on 05/26/2023, chronic in nature but might be dilutional due to IV fluids given overnight. Will continue to monitor. CBC in a.m. (11) Discharge planning issues: Status: Acute Assessment and plan: CM to f/u: Hospice, SNF or rehab consideration Palliative care consult pending today. Subjective Subjective Interval history since last seen: Patient slept well but reports feeling tired, eating and drinking well, voiding without difficulty, no bowel movement today but had 1 yesterday, unable to tell me if he feels better. Patient denies pain, dizziness, change in vision, shortness of breath, palpitations, nausea, vomiting or diarrhea. Exam Narrative Exam Narrative: Constitutional The patient in chair, comfortable and cooperative during the interview; short term memory loss, more difficult to reorient HENMT: Head is normocephalic, with gaunted facial structures d/t severe loss of adipose tissues -cheeks and hollow inferior orbital space moist mucous membrane and tongue Eyes: Well aligned, but unable to keep them open, Neuro:alert and oriented to self,place unable to state year as he did after been coached previously.Increased right sided weakness to upper and lower ext. remains PERRLA on ambient light Chest:Chest is symmetrical with increased AP diameter Resp: Shallow respiratory pattern, 1-3 to word-answers, unlabored breathing with sat at 90% on RA with RR 14-16 on flowsheet (RN reported 8/min verbally) and 93% on 2l/min of oxygen, clear lung to the right , diminished to left side Cardio: regular rhythm, no tachycardia today, S1, S2, no murmur, positive pulses to all 4 extremities GI: Abdomen is scaphoid,not distended, soft and non tender, bowel sounds are present Integumentary:skin with increased pallor compared to the day prior, no lesions or rash on exposed skin Extremities: strength 5/5 to left upper and lower ext. and 1/5 to the right side Psych: RASS 0, congruent mood and normal-depressed affect. Objective Last Vital Signs Temp 36.2 C L 06/03/23 23:50 Pulse 92 H 06/03/23 23:50 Resp 06/03/23 23:50 BP 96/61 L 06/03/23 23:50 Pulse Ox 90 L 06/03/23 23:50 Laboratory Results - last 24 hr 06/03/23 06/03/23 06/04/23 09:50 12:40 06:19 WBC 13.50 H 10.21 RBC 5.47 4.34 L Hgb 10.9 L 9.0 L Hct 36.5 L 28.9 L MCV 67 L 67 L MCH 19.9 L 20.7 L MCHC 29.9 L 31.1 L RDW 19.6 H 19.0 H Plt Count 531 H 362 MPV 9.8 Immature Gran % 0.6 0.7 Neutrophils % 86.6 75.9 Lymphocytes % 8.1 12.4 Monocytes % 3.6 6.6 Eosinophils % 0.8 3.9 Basophils % 0.3 0.5 Nucleated RBC % 0.0 0.0 Absolute Neutrophils 11.69 H 7.75 H Absolute Lymphocytes 1.09 L 1.27 Absolute Monocytes 0.49 0.67 Absolute Eosinophils 0.11 0.40 Absolute Basophils 0.04 0.05 RBC Morphology See Below See Below Polychromasia Present Poikilocytosis 1+ Anisocytosis 1+ Microcytosis 2+ 2+ Sodium 135 L 137 Potassium 4.5 3.6 Chloride 99 103 Carbon Dioxide 24.0 24.8 Anion Gap 12.0 H 9.2 BUN 23 H 18 Creatinine 1.0 0.7 Est GFR (CKD-EPI 2020) 87.24 106.80 Glucose 172 H 107 H Calcium 9.7 8.4 L Magnesium 2.0 1.8 Total Bilirubin 0.5 AST 43 H ALT 33 Alkaline Phosphatase 138 H Troponin I < 50 < 50 Total Protein 7.8 Albumin 2.6 L Time Spent with Patient Time Spent with Patient: >50 minutes Time was spent: preparing to see the patient(eg.review tests), obtaining and/or reviewing separately otained hiistory, ordering medications,tests, procedures, referring, communicating with other health intensive care nurse, indepentently interpreting results, counseling the patient and care coordination
[2023-06-04] MEDS: Omeprazole 20 MG CAPCR PO (09:11)
[2023-06-04] MEDS: Levothyroxine 100 MCG TAB PO (09:12)
[2023-06-04] MEDS: Normal Saline Flush 10 ML SYR IVP ×2 (09:12→22:03)
--- NOTE | 2023-06-04 09:22 | PT.INIE ---
PT Notes Visit Reasons: lung cancer w/brain metastasis, altered mental sta Physical Therapy Inpatient Initial Evaluation Date: 06/04/2022 Referring Doctor: Rachel Pratt APRN PT Orders: PT CONSULT: Eval/Treat Precautions: Fall. Standard. Activity as tolerated. Patient Profile/Admitting Diagnosis: Asim is a 57-year-old male admitted for management of repeated falls, lung cancer with metastasis to brain, weakness of right leg, weakness of the right upper extremity, pain, and hyponatremia. CT of the head interpreted as having 1.6 cm hemorrhagic and partially calcified mass hide in the left frontal lobe at the vertex with surrounding vasogenic edema compatible with metastasis. Also noted was equivocal tiny left frontal cortical lesion. Chest x-ray showed large left upper lobe tumor, multiple right lung opacification similar to prior. Pelvis CT with no acute fracture. Abdomen pelvic CT on 05/23/2023: Non-displaced fracture of right transverse process of L2. No additional fractures identified. Ileo ileal intussusception in the low pelvis causing mild small bowel dilatation. PMHX: All Active Problems (Updated 06/03/23 @ 19:27 by Rachel Pratt APRN) Weakness of right leg (Acute) Hyponatremia (Acute) Pain (Acute) Discharge planning issues (Acute) On deep vein thrombosis (DVT) prophylaxis (Acute) RUE weakness (Acute) Hx of falling (Acute) Lung cancer metastatic to brain (Acute) Nausea (Acute) Lumbar transverse process fracture (Acute) Weakness (Acute) Right shoulder pain (Acute) Multiple falls (Acute) Back contusion (Acute) Insomnia (Acute) Unintentional weight loss (Acute) Hypoxia (Acute) Cancer related pain (Acute) Advanced care planning/counseling discussion (Acute) Palliative care patient (Acute) Bilateral lung cancer (Acute) Adenocarcinoma from 2020 biopsy COVID (Acute) Suicidal ideation (Acute) Depression (Chronic) Deliberate self-cutting (Acute) Other social stressor (Acute) Agitation (Acute) Hemoptysis (Acute) Thumb injury (Acute) Abnormal chest CT (Acute) GERD (gastroesophageal reflux disease) (Chronic) Hypercholesterolemia (Chronic) Suicidal thoughts (Acute) Leukocytosis (Chronic) Tobacco abuse (Chronic) Suicidal ideation (Acute) Anxiety (Chronic) Depression (Chronic) COPD (chronic obstructive pulmonary disease) (Chronic) Depression (Chronic) Bipolar disorder (Chronic) Depression with suicidal ideation (Acute) Medical History Depressed Stress Suicidal thoughts Shingles Suicidal ideations Traumatic pneumothorax 2017, chest tube x2 Bipolar disorder Surgical History History of ankle surgery S/P thoracostomy tube placement Social History/Home Situation: Lives alone in an apartment without steps to enter. No family nor relatives close by. No longer drives, lives close to the [employer] here in town and had been walking to and from the grocery store for all his needed supply. Did not use any assistive device although he admits that he has had worsening time moving about. States that he sometimes uses oxygen at home. Equipment Owned/DME: Oxygen supplementation Subjective: Asim says that he does have oxygen at home but he does not use it much. He has fallen more than 5x on the past year. He does not feel safe gong home like this, being so weak and shaky. Agreeable to going to a facility where he can be assisted with mobility performance. Complains of being dizzy each time he sits up and stand up. reports being groggy and apologetic of being slow to respond. States that he has increasingely lost control of his right upper and lower extremity have been hard to move which has made him fall repeatedly. Reports moderate pain in B knees, legs and feet with weight bearing. Objective: General Observation: Supine in bed. IV access through L UE. R UE in abnormal flexion synergy: Internally rotated at shoulder, bent at elbow, wrist ulnarly deviated and fingers flexed, Grade II on the Modified Marleen scale. Low BMI. Mental Status: Alert and oriented but slow to respond to questions Pain: As above Vital Signs: Oxygen saturation went down to the mid 80s% with sitting transfers, DIRECTOR UTILIZATION MANAGEMENT Savanah bumped patient up to 4 L which increased saturation to 94% ROM: Right Upper Extremity: Shoulder Flexion lacks 75% of AROM due to spasticity. Shoulder abduction lacks 75% of AROM due to spasticity. Elbow flexion lacks 50% of AROM due to spasticity. Wrist flexion WFL. Functional opening and closing of hand absent. Left Upper Extremity: Shoulder Flexion WFL. Shoulder abduction WFL. Elbow flexion WFL. Wrist flexion WFL. Functional opening and closing of hand WFL. Right Lower Extremity: Hip flexion lacks the last 75% of AROM limited by spasticity. Hip abduction lacks the last 75% of AROM limited by spasticity. Knee flexion 30 degrees to 90 degrees limited by spasticity. Ankle dorsiflexion absent due to spasticity. Ankle plantarflexion WFL. Left Lower Extremity: Hip flexion lacks the last 25% of AROM. Hip abduction lacks the last 25% of AROM. Knee flexion WFL 10 degrees to 100 degrees. Ankle dorsiflexion to neutral only. Ankle plantarflexion WFL. Strength: Right Upper Extremity: Shoulder flexors 2-/5. Shoulder abductors 2-/5. Elbow flexors 3-/5. Elbow extensors 3-/5. Diesel Automotive Technician impaired. Left Upper Extremity: Shoulder flexors 4-/5. Shoulder abductors 4-/5. Elbow flexors 4-/5. Elbow extensors 4-/5. Diesel Automotive Technician strong. Right Lower Extremity: Hip flexors 2-/5. Hip abductors 2-/5. Knee flexors 3-/5. Knee extensors 3-/5. Ankle dorsiflexors 1/5. Ankle plantarflexors 3-/5. Left Lower Extremity: Hip flexors 3-/5. Hip abductors 3-/5. Knee flexors 3-/5. Knee extensors 3-/5. Ankle dorsiflexors 3-/5. Ankle plantarflexors 4-/5. Bed Mobility/Transfers: Moderate cueing provided for use of B hands as needed for support, movement sequence, Ad management, and and posture to reduce fall risk and minimize pain report Rolling moderate assist of 2. Supine to sit with moderate assist of 2 Sit to supine with moderate assist of 2 Sit to stand with moderate assist of 2 Stand to sit with moderate assist of 2 Bed to bedside commode moderate assist of 2 Bedside commode to bed moderate assist of 2 Bed to reclining chair with moderate assist of 2 Reclining chair to bed with moderate assist of 2 Gait: Facilitated safe and correct performance of very short distance in room ambulation of 5 steps +5 steps utilizing front wheeled walker with moderate assist of PT and DONTAE Pavon with moderate verbal cueing and assistance to right foot for limb advancement walker management, and directional changes, and posture. Required assitance by PT to put R hand onto walker. Complained of worsening dizziness throughout. Movement very much slowed down. No dorsiflexion on R ankle, step height and length diminished. Compleined of extreme fatigue and desaturated to the mid 80s on 2 L. DIRECTOR UTILIZATION MANAGEMENT Savanah incrased oxygen up to 4 L. Balance: Static Sitting: Normal Dynamic Sitting: Normal Static Standing: Fair Dynamic Standing: Fair Special Tests: Mobility Limitations Standardized Measure [facility] AM-PAC 6 clicks Basic Mobility Inpatient Short Form: Raw Score: 11 CMS Score: 73% deficit Informed Consent/Education: Patient was instructed in purpose of PT consult and plan of care. Agreeable to proceed with established PT POC to achieve personal goals. ASSESSMENT: R-side hemiparesis, mental status changes, dizziness, and slowness of responses may be due from mass in the L side as seen on CT. Spasticity on the R UE/LE limiting safe and efficient mobility performance. Patientdemosntrating significant decline in mobility level and requires the assistance of 2 people for all mobility ADL performance and short distance ambulation. Patient presents with clinical signs and symptoms consistent with current/admitting diagnoses that have resulted to mobility limitations, gait instability, generalized weakness, and overall ADL decline as demonstrated by the following impairment level findings: 1. Decreased strength to B UE/LE major muscle groups with R more affected than L 2. Impaired sitting/standing balance 3. Impaired activity tolerance 4. Limitation of joint range of motion in R UE joints 5. Pain in B knees and legs 6. [place] in R UE/LE Impairments are contributing to the following functional limitations: 1. Decline in bed mobility skills 2. Decline in transfer skills 3. Difficulty with ambulation without assistive device and physical assistance 4. Increased completion time for mobility ADL performance 5. Increased risk for falls 6. Difficulty with managing steps alone safely Patient is assessed as a 94854 high complexity based on the following: History: 57-year-old [] with past medical history as indicated above Examination: Demonstrable impairment in strength, balance, and mobility level with underlying impairments and functional limitations as exhibited above as well as deficit score of 73% utilizing the [facility] Mobility Inpatient Short Form Presentation: Evolving Decision Makin moderate complexity Goals: Goals X1 week 1. Supine-Sit independent 2. Sit-Supine independent 3. Sit-Stand independent 4. Stand-Sit independent with FWW 5. Bed-Chair independent with FWW 6. Chair-Bed independent with FWW 7. Independent gait on level surface with use of FWW for at least 50 feet without report of pain nor dyspnea 8. Good static and dynamic standing balance/tolerance Plan of Care/Treatment Plan: 1-2x/day, 7 days/week x 1 week. Plan of care has been reviewed with the GREENHOUSE TECHNICIAN providing the service under Physical Therapy direction. Initiate Physical Therapy intervention for pain management as needed, strengthening, bed mobility, transfers, gait, stairs, balance training, and use of assistive device. DISCHARGE RECOMMENDATIONS: [] Home with no services [] [] Home with services [specify] [] Home with outpatient PT [] [] SNF for continued rehabilitation [] [] [facility] [] [X] SNF versus LTC based on ability to participate and progress. Patient will benefit from fdc facility placement for continued skilled physical therapy services in order to progress mobility level, strength, and balance in preparation for a safe discharge to home. TREATMENT CODE/TIME: [id number] x 34 minutes beginning at 9:22 Am and 9:50 AM. Thank you for the opportunity to participate in the care of this patient. Dolores Quintana PT, DPT, CLT [facility] [place], [place]
[2023-06-04 11:02] LABS: BE (Venous) -1 mmol/L (-2-3); HCO3 (Venous) 24 mmol/L (23-28); O2 Sat (Venous) 97 %; TCO2 (Venous) 22 mmol/L (24-29); pCO2 (Venous) 36 mmHg (41-51); pH (Venous) 7.42 (7.31-7.41); pO2 (Venous) 87 mmHg
[2023-06-04 11:05] VITALS: BP 102/69; PULSE 85; RESP 16; TEMP 36.4; O2SAT 93
--- NOTE | 2023-06-04 11:25 | W.PALPGNOTE ---
Date of service: 06/04/23 Time of Service: 14:00 Assessment and Plan Assessment and plan (1) Hx of falling: Status: Acute (2) Lung cancer metastatic to brain: Status: Acute (3) Weakness: Status: Acute Assessment and plan: Unfortunately sAim does not have a lot of choices. He went home from the hospital for a very short time and then fell and came back. Going to a detention would be difficult as he does not have coverage or finances. 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 We did talk about the MRI and what it would gain. He decided against going through an MRI because he admits that he would not go through treatment if something was found on MRI. I did speak with hospitalist team and asked that his fentanyl 50 mcg patch be put back on as I am concerned that he would have a crisis once this presently removed 100 mcg patch wears off. He does have additional morphine available but only every 2 hours. That might need to be increased to every 15 minutes if he is truly in crisis. Staff is very concerned when the fentanyl 100 mcg patch was removed and although he has morphine in its place, it may not be adequate He would like to see clergy and I passed this information on to the hospitalist team He has some hard choices and choices and not easy for him. Either Rizwana or myself will see him on Sunday. I do think he has capacity he is just indecisive. I do not think a guardian is that he answers since it would be a state appointed guardian. We did have a long discussion about his choices. After discussion he said I do not want to talk about this anymore today Subjective Subjective Interval history since last seen: From recent Palliative note by Rizwana Locke NP Plan Palliative Care Plan: Harshad is a 57 year old man with a past medical Hx significant for lung cancer and bipolar disorder, depression, followed closely by [facility], with hospitalizations for suicidal ideation in the past. He also has Hx of GERD, HLD, COPD, tobacco abuse. He has 2 synchronous lung cancer primaries. His most recent CT scan in the ED on 02/27/23 showed disease progression: There has been interval increase in size of the left upper lobe mass which now measures 7.5 x 6.5 cm. This compares to 4.9 x 4.9 cm. It causes obstruction of right upper lobe vessels and bronchi. There is also been increase in size of the soft tissue masses in the right middle lobe. The larger measures 1.4 x 1.5 cm. Previously this measured 1 x 0.6 cm. He previously decided to forgo any attempts to Tx the cancer. Radiation made him very sick. He never did any chemo. Dr. Schrader's note from 04/2022 states that he has progressed to incurable disease and the ability to use chemo/radiation to manage this disease seems unlikely. At that time, Dr. Schrader discussed with Asim Evans's x ray physician from [facility] that he would expect that within 6 to 12 months from that time, he would develop metastatic disease outside of the chest and without further therapy he suspects that he would of lung cancer within 6 months. He is getting weaker. He is falling 1-3 times per day. He has 3 rib Fx r/t a fall 2 weeks ago. He presented to the ED 05/23/23 and was found to have an L2 R transverse process fx. There was concern for intussusception and he was admitted overnight. It was determined that this was an incidental finding and he was discharged earlier today. He was scheduled to come into the hospital today for f/u but he was unable to come in due to weakness. He has been falling several times per week. He fell 2x last night. He is requesting a wheelchair. He is SOB, he is having difficulty laying flat. He would like a hospital bed. He has a shower chair, OT has been helping him shower. His appeite is poor. He has last >30# over the last 5 months. His weight was down to 124# with clothing and boots on at his last visit. His Fentanyl was increased to 100 mcg/hr at his last visit with some improvement. He has been taking oxycodone 2-3 tabs per day. We previously attempted to admit him to hospice but he wanted to be able to go to the ED so he declined. Today he is clear that he understands that if he was admitted to hospice, he would call hospice and not 911. He is agreeable and wishes to be admitted. His long-term medicaid application is pending. [facility] has sent referrals for SNF placement. I [facility], she states they have taken people with medicaid pending in the past. [facility] for [facility], Admissions. He really needs placement. Will refer to hospice for more appropriate care until he can be placed. Denise ([facility] upper caser), needs to be contacted to set up the admission time so she can be present, . His CODE STATUS is DNR/DNI. He has a COLST. F/u in 1 week if he is not yet admitted to hospice. INTERIM HX: I am visiting Harshad due to his questions about having an MRI done versus comfort care versus ? Earlier today his fentanyl patch was removed because his respirations were about 8. He now does not have his 100 mcg fentanyl patch on. He did not state that he was uncomfortable, but its only been a few hours since it was removed. Normally he is seen by Rizwana Locke, but she is not available today. Harshad has end-stage metastatic lung cancer. He has lost a significant amount of weight. He has declined all treatment for his cancer. Unfortunately he has no one at home to help him. He has refused hospice in the past because he still wanted the option of coming to the emergency room first rather than calling hospice and then making a decision regarding transfer to the ER. He also is in the process of obtaining choices for care but does not yet have it. Asim said he is tired of the oxygen and took it off. We talked about MRI and what it might help us to do and what he was willing to do. He knows he cannot go home. He knows detention placement is not yet available. 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 He removed his oxygen and was wearing it around his neck while I was in the room. He was talking in complete sentences. He looked me in the eye during much of our conversation. His heart was regular not tachycardic. Lungs some air movement, but he was a little uncomfortable as I try to move him to get a good listen to his lungs. He did demonstrate understanding of his disease process and what the interventional outcome would be. He appeared to be very indecisive about what he wanted to do next Objective Last Vital Signs Temp 97.5 F L 06/04/23 11:05 Pulse 85 06/04/23 11:05 Resp 16 06/04/23 11:05 BP 102/69 06/04/23 11:05 Pulse Ox 93 06/04/23 11:05 Laboratory Results - last 24 hr 06/03/23 06/04/23 06/04/23 12:40 06:19 11:00 WBC 10.21 RBC 4.34 L Hgb 9.0 L Hct 28.9 L MCV 67 L MCH 20.7 L MCHC 31.1 L RDW 19.0 H Plt Count 362 MPV Immature Gran % 0.7 Neutrophils % 75.9 Lymphocytes % 12.4 Monocytes % 6.6 Eosinophils % 3.9 Basophils % 0.5 Nucleated RBC % 0.0 Absolute Neutrophils 7.75 H Absolute Lymphocytes 1.27 Absolute Monocytes 0.67 Absolute Eosinophils 0.40 Absolute Basophils 0.05 RBC Morphology See Below Polychromasia Present Poikilocytosis 1+ Anisocytosis 1+ Microcytosis 2+ VBG pH 7.42 H VBG pCO2 36 L VBG pO2 87 VBG HCO3 24 VBG Total CO2 22 L VBG O2 Saturation 97 VBG Base Excess -1 Sodium 137 Potassium 3.6 Chloride 103 Carbon Dioxide 24.8 Anion Gap 9.2 BUN 18 Creatinine 0.7 Est GFR (CKD-EPI 2020) 106.80 Glucose 107 H Calcium 8.4 L Magnesium 1.8 Troponin I < 50 Laboratory Tests 05/23/23 05/26/23 05/26/23 12:55 16:28 16:28 Hct 29.7 L Plt Count 778 H* ESR 47 H Calcium 06/03/23 06/04/23 06/04/23 09:50 06:19 06:19 Hct 36.5 L 28.9 L Plt Count 362 ESR Calcium 06/04/23 06:19 Hct Plt Count ESR Calcium 8.4 L 06/03/23 FINDINGS: There are no skull fractures. There is no fluid in the visualized paranasal sinuses. The previously described high left frontal lobe 1.3 cm diameter round lesion is unchanged and again noted be associated with abundant vasogenic edema. It has not increased in size. No additional findings. IMPRESSION: As above. Recommend contrast infused MRI scan. MRI scan will determine if there are additional lesions and also will determine if there is true hemorrhage within this hyperdense left frontal lobe lesion or if it is just a hyperdense lesion.
--- NOTE | 2023-06-04 12:24 | PHA.REVIEW2 ---
Pharmacy Admission Review Admission Clinical Review Admission Pharmacy Review: (Updated 06/04/23 @ 11:46 by Rachel Pratt APRN) Lethargy (Acute) Hypoxemia (Acute) Weakness of right leg (Acute) Hyponatremia (Acute) Pain (Acute) Discharge planning issues (Acute) On deep vein thrombosis (DVT) prophylaxis (Acute) RUE weakness (Acute) Hx of falling (Acute) Lung cancer metastatic to brain (Acute) Sulfa (Sulfonamide Antibiotics) Allergy (Severe, Unverified 06/03/23 09:42) Swelling/Edema Resuscitation Status DNR/DNI Height 5 ft 7 in Weight 52.277 kg Comments Comments/Follow Ups: Per progress note for today patient is extremely lethargic, breathing at 8 at times. Fentanyl patch was discontinued, PRN morphine increased and added scheduled Tylenol. Watch for addition of lower dose patch within next 24 hours. Pharmacy Admission Review Renal Dosing Renal Dosing: BUN 18 mg/dL (7-18) 06/04/23 06:19 Creatinine 0.7 mg/dL (0.70-1.30) 06/04/23 06:19 Medications needing adjustments: Reviewed (85.05 mL/min) Anticoagulation Anticoagulation: Hgb 9.0 g/dL (13.5-17.5) L 06/04/23 06:19 Hct 28.9 % (40.0-50.0) L 06/04/23 06:19 Plt Count 362 10^3/uL (130-400) 06/04/23 06:19 Creatinine 0.7 mg/dL (0.70-1.30) 06/04/23 06:19 DVT Prophylaxis: Reviewed (SCDs) Opiate Usage Evaluate Pain Scale/Pains Meds: Reviewed Scheduled Bowel Reg ordered if on Opiates?: No (PRN Miralax/Docusate) Relevant Labs Relevant Labs: Sodium 137 mmol/L (136-145) 06/04/23 06:19 Potassium 3.6 mmol/L (3.5-5.1) 06/04/23 06:19 Chloride 103 mmol/L (98-107) 06/04/23 06:19 Magnesium 1.8 mg/dL (1.8-2.4) 06/04/23 06:19 Electrolytes, C-Reactive P, ESR: Reviewed Cardiac Review Cardiac Review: Troponin I < 50 ng/L (< or =60) 06/03/23 12:40 BP, HR, EF%: Reviewed (WNL, Ox 93 with Nasal Cannula 2) QTc Review QTc: Reviewed (476 06/03/23) IV to PO Switch IV Medications: Reviewed Home Meds Home Med List reviewed: Intervened Relevent Home Meds Not ordered & why?: Not on active home med list but has filled recently: bupropion, gabapentin, hydroxyzine, magnesium, scheduled olanzapine (has order for PRN), sertraline and trazodone. Reached out to provider. Will update home med list as needed. May need to confirm with patient what home meds he takes but per progress note has been confused and very drowsy today. Current Meds Current Medication Order Review: Reviewed Comments Comments/Follow Ups: Per progress note for today patient is extremely lethargic, breathing at 8 at times. Fentanyl patch was discontinued, PRN morphine increased and added scheduled Tylenol. Watch for addition of lower dose patch within next 24 hours.
[2023-06-04] MEDS: Acetaminophen 325 MG TAB PO ×2 (12:29→18:10)
--- NOTE | 2023-06-04 13:48 | PTTR_ITS ---
PT Notes Visit Reasons: lung cancer w/brain metastasis, altered mental sta Date: 06/04/23 PRECAUTIONS: Fall. Standard. Activity as tolerated. SUBJECTIVE: Pt in recliner sleeping when approached for therapy this afternoon. pt agreeable to participating with session. OBJECTIVE: ? PAIN: None reported VITALS: Closely monitored by nursing. Therapeutic Activities [id number]: Direct one-on-one instruction in dynamic activ ities to improve functional performance. ? BED MOBILITY/TRANSFERS? Scooting upward/downward in recliner: min A Supine-sit: not performed ? Sit-supine: ? not performed? Sit-stand: min A ? Stand-sit: Min A ? Bed-Chair:?not performed ? Chair-bed: not performed Provided skilled cues and instruction on performance and technique throughout. ? ASSESSMENT:?Pt refused walking, ptr reported feeling dizzy after standing for 3mins, pt able to stand up 2x 3mins each with pt reporting feeling dizzy at ~2 to 3mins, pt able to weight shift, slow with response to instruction, shows good effort to comply given enough time response. Plan of Care/Treatment Plan: 1-2x/day, 7 days/week x 1 week. Physical Therapy intervention for pain management as needed, strengthening, bed mobility, transfers, gait, stairs, balance training, and use of assistive device. TREATMENT CODE/TIME: [id number] 15mins (1:35-1:50pm)
--- NOTE | 2023-06-04 14:25 | PDOC.CMIN ---
Date of service: 06/04/23 Time of Service: 14:25 Care Management Initial Assmt Initial Assessment REASON FOR HOSPITALIZATION:: Lung cancer with brain metastasis, AMS PREVIOUS FUNCTIONAL STATUS/SOCIAL/FAMILY SUPPORTS:: Asim lives in [facility], alone. He is supported by FIELD STAFF MANAGER, [facility]. He was recently assessed by hospice, and it was determined that he meets criteria for hospice, but he does not have a 24/7 caregiver, therefore he was not admitted to hospice in the community. He has been declining at home, and requires a 2 person assist for all mobility needs and ADL performance. CURRENT FUNCTIONAL STATUS:: Asim was sitting up in his chair when CM met with him. He stated that he feels groggy and not right. He struggled to keep his eyes open during the conversation. He will meet with palliative care today to discuss his goals of care. The provider has ordered an MRI, which is on hold until after Asim meets with palliative care, per his wishes. CM will continue to follow. ADVANCE DIRECTIVES:: COLST on file. Has patient been provided with info about the portal/API?: Yes Did the patient sign up for the portal?: No CODE STATUS:: DNR/DNI INSURANCE COVERAGE / FINANCIAL ISSUES:: [employer] CURRENT HOME/COMMUNITY SERVICES/EQUIPMENT:: FIELD STAFF MANAGER; supplemental O2. PRIMARY CARE PHYSICIAN:: Chung Perry POTENTIAL DISCHARGE NEEDS:: Evaluations for further needs, follow up appointments. PATIENT/FAMILY EDUCATION NEEDS:: Review discharge instructions and limitations, discussion of self care needs including ask me three. ANTICIPATED BARRIERS TO DISCHARGE:: lack of caregiver support TRANSPORTATION:: to be determined by disposition PLAN:: Anticipate Asim will remain at [facility] for end of life care vs return home with a resumption of home care services. He will follow up with his PCP and discharge plan of care, and will continue to be followed by palliative care. CM will continue to follow and support discharge planning considerations. [facility] All Active Problems (Updated 06/04/23 @ 11:46 by Rachel Pratt APRN) Anemia (Chronic) Lethargy (Acute) Hypoxemia (Acute) Weakness of right leg (Acute) Hyponatremia (Acute) Pain (Acute) Discharge planning issues (Acute) On deep vein thrombosis (DVT) prophylaxis (Acute) RUE weakness (Acute) Hx of falling (Acute) Lung cancer metastatic to brain (Acute) Nausea (Acute) Lumbar transverse process fracture (Acute) Weakness (Acute) Right shoulder pain (Acute) Multiple falls (Acute) Back contusion (Acute) Insomnia (Acute) Unintentional weight loss (Acute) Hypoxia (Acute) Cancer related pain (Acute) Advanced care planning/counseling discussion (Acute) Palliative care patient (Acute) Bilateral lung cancer (Acute) Adenocarcinoma from 2020 biopsy COVID (Acute) Suicidal ideation (Acute) Depression (Chronic) Deliberate self-cutting (Acute) Other social stressor (Acute) Agitation (Acute) Hemoptysis (Acute) Thumb injury (Acute) Abnormal chest CT (Acute) GERD (gastroesophageal reflux disease) (Chronic) Hypercholesterolemia (Chronic) Suicidal thoughts (Acute) Leukocytosis (Chronic) Tobacco abuse (Chronic) Suicidal ideation (Acute) Anxiety (Chronic) Depression (Chronic) COPD (chronic obstructive pulmonary disease) (Chronic) Depression (Chronic) Bipolar disorder (Chronic) Depression with suicidal ideation (Acute) Medical History Depressed Stress Suicidal thoughts Shingles Suicidal ideations Traumatic pneumothorax 2016, chest tube x2 Bipolar disorder Surgical History History of ankle surgery S/P thoracostomy tube placement Social History Smoking/Tobacco Use Status: Current every day Tobacco Type: cigarettes Smoking risk assessment performed?: Yes Alcohol Intake: never Drug use: Daily Substance use type: marijuana Details: Pt reports cannabis use for relaxation, pain management Housing: apartment Current gender identity: male Do you feel safe at home: No (does not feel safe with self) Do you feel safe in your relationship?: Yes Additional Social history: Lives in a private apartment. Has [facility] case management SDOH(Care Management) Screening Will the Patient Participate in the Screening?: Yes Do you worry about having a steady place to live?: no Problems where you live: no known problems In the past 12 months, have you had to go without electric, gas, oil or water in your home?: no Have you or anyone in your house had to go without enough food to eat?: no Has lack of transportation kept you from medical appointments or from doing things needed for daily living?: no Has anyone in your support network made you feel unsafe for any reason?: no
[2023-06-04 15:36] VITALS: BP 101/67; PULSE 73; RESP 9; TEMP 35.8; O2SAT 98
[2023-06-04] MEDS: fentaNYL 50 MCG PATCH TD (18:10)
[2023-06-04 21:38] VITALS: BP 100/62; PULSE 84; RESP 16; TEMP 36.2; O2SAT 92
[2023-06-04] MEDS: Melatonin 3 MG TAB 10 MG PO (21:40)
[2023-06-04] MEDS: Zolpidem 5 MG TAB PO (21:40)
[2023-06-05] MEDS: levETIRAcetam 1,000 MG in Normal Saline 100 ML 400 MG IVPB ×3 (00:29→23:47)
[2023-06-05] MEDS: Levothyroxine 100 MCG TAB PO (06:28)
[2023-06-05] MEDS: Acetaminophen 325 MG TAB PO ×3 (06:28→17:40)
[2023-06-05 07:03] LABS: Anion Gap 8.7 mmol/L (3-11); BUN 20 mg/dL (7-18); CO2 25.3 mmol/L (21.0-32.0); CREATININE 0.8 mg/dL (0.70-1.30); Calcium 8.7 mg/dL (8.5-10.1); Chloride 104 mmol/L (98-107); Estimated GFR 102.58 (mL/min/1.73m2); Glucose 122 mg/dL (74-106); Potassium 3.9 mmol/L (3.5-5.1); Sodium 138 mmol/L (136-145)
[2023-06-05 07:06] LABS: Abs Immature Grans 0.07 10^3/uL (0.0-0.06); Absolute Basophil Count 0.04 10^3/uL (0.0-0.2); Absolute Eosinophil Count 0.35 10^3/uL (0.0-0.7); Absolute Lymphocyte Count 1.03 10^3/uL (1.2-3.4); Absolute Monocyte Count 0.61 10^3/uL (0.1-0.8); Absolute Neutrophil Count 8.67 10^3/uL (1.2-6.7); Basophils % 0.4; Eosinophils % 3.2; HCT 30.5 % (40.0-50.0); HGB 9.1 g/dL (13.5-17.5); Immature Grans % 0.6; Lymphocytes % 9.6; MCH 20.4 pg (27.0-33.0); MCHC 29.8 % (32.0-36.0); MCV 68 fL (80-95); Monocytes % 5.7; Neutrophils % 80.5; Platelet Count 414 10^3/uL (130-400); RBC 4.47 10^6/uL (4.36-5.78); RDW 19.3 % (11.8-14.1); RDW-SD 45.8 fL; WBC 10.77 10^3/uL (4.4-10.8)
[2023-06-05 07:23] LABS: Diff Comment RBC Morph Reviewed; Microcytosis 2+
[2023-06-05 08:01] VITALS: BP 90/64; PULSE 79; RESP 9; TEMP 37; O2SAT 98
--- NOTE | 2023-06-05 08:18 | PDOC.CMPRO ---
Date of service: 06/05/23 Time of Service: 08:18 Care Management Progress Note Progress Note Text Progress Note Text: S/O: Asim was sitting up in his chair when CM met with him. CM provided him with reading glasses at his request. Harshad asked if I knew the extent of the damage, referring to him not being able to move his arm or leg on his right side. CM noted that this is a new deficit, and informed palliative care, who planned to visit with him today. Palliative care will continue the discussion about Harshad's goals of care, as he may transition to comfort measures and remain at [facility] for end of life care. If he is not imminent, CM will send referrals to SNF for skilled end of life care. He has a [facility] application pending, and had a phone meeting with [facility] today, to support this process, which his DIETETIC TECH support, Denise, assisted him with. CM will continue to follow. A: Asim is a 57 year old male admitted to [facility] on 06/03/23 for lung cancer w/ brain metastasis, AMS. P: Anticipate Asim will remain at [facility] for end of life care vs return home with a resumption of home care services. He will follow up with his PCP and discharge plan of care, and will continue to be followed by palliative care. CM will continue to follow and support discharge planning considerations.
[2023-06-05] MEDS: Omeprazole 20 MG CAPCR PO (08:24)
[2023-06-05] MEDS: Normal Saline Flush 10 ML SYR IVP ×2 (08:26→19:59)
--- NOTE | 2023-06-05 08:44 | PGE_ITS ---
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 He would not want interventions if the MRI showed a treatable problem as per discussion with Palliative Neurology consult seems no longer indicated and was stopped Continue [place] Repeat Head CT was stable after 6 hours of the intitial head CT on the admission day as per discussion with V-Rad Dr. Graham Continue PT and OT (2) Weakness of right leg: Status: Acute Assessment and plan: Ongoing and most likely d/t above Dx As above (3) RUE weakness: Status: Acute Assessment and plan: As above (4) Hx of falling: Status: Acute Assessment and plan: Continue PT and OT as tolerated by patient there was no trauma as per imaging after the fall on 06/03 (5) Pain: Status: Acute Assessment and plan: Multimodal pain management regiment ordered on 06/03 The patient presented in the ED with an old fentanyl patch on. The patient was unable to state the duration of application of this fentanyl patch. We applied a fentanyl patch of 100 mcg applied on 06/03 at 1900. The next morning around 14 hours after the application the staff called with concern of hypoxia, increased lethargy, breathing at 8 to 14 at times with apneic spells. The fentanyl patch could take up to 24 hours for max effect to be seen. I elected not to reverse what was most likely oversedation from the narcotics but due to the fact that the patient has metastic neoplasm and was on the patch at home; VBG was normal of 2l/min of oxygen. The Fentanyl patch initially discontinued for reevaluating MMI over 24 hours for new dosage, and the expert opinion from palliative care re:pain management. 4 hours after the patient did not show worsening sedation, remained pain free, was less lethargic. Palliative care consultation on 06/[address] 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 but will not pursue MRI, hospice to be in on 06/05 Will continue multimodal pain management with as needed IV morphine and schedule acetaminophen and fentanyl patch 50 mcg (6) Hyponatremia: Status: Acute Assessment and plan: Resolved Na 138 today NS at 50cc/hr for 10 hours on 06/03; Na was 137 on 06/04 BMP on 06/07 if not MEDICAL RECORDS ANALYST (7) On deep vein thrombosis (DVT) prophylaxis: Status: Acute Assessment and plan: Continue SDC's (8) Hypoxemia: Status: Acute Assessment and plan: Titrate Oxygen 2 L via nasal cannula, with parameters ( sat 88-92%) in the setting of Hx of COPD Fentanyl patch dose decreased , scheduled APAP (9) Lethargy: Status: Acute Assessment and plan: Improved and as above (10) Anemia: Status: Chronic Assessment and plan: Present on labs drawn on 05/26/2023, chronic in nature but might have been exacerbated by diliution from IVF on the first night Today H&H remains stable. Will continue to monitor. CBC on 06/07 if not MEDICAL RECORDS ANALYST (11) Discharge planning issues: Status: Acute Assessment and plan: CM to f/u: Might elect to chose comfort care has not decided yet; at his request flying squad worker consult initiated Palliative care consult done on 06/03 Hospice consult pending today Discussed with Dr. Bean Subjective Subjective Interval history since last seen: Patient reports sleeping well last night, decreased appetite, drinking well, voiding without difficulty, no bowel movement today but had 1 yesterday. The patient denies chills, shortness of breath, nausea or vomiting, and dysuria. The patient reports that the food was unappetizing this morning, a friend will bring him a chocolate shake. Patient informed that we could provide him with shakes with meals. Plan of care discussed with patient, and patient agreed. Exam Narrative Exam Narrative: Constitutional The patient in chair, comfortable and cooperative during the interview; short term memory loss, more difficult to reorient HENMT: Head is atraumatic, gaunted facial structures Eyes: Well aligned, normal gaze Neuro:alert and oriented to self,place,progressing right sided weakness to upper and lower ext. remains PERRLA on ambient light Resp: Shallow respiratory pattern, 5-7 word sentences w/o resp distress-answers, left sided diminished breath sounds, crackles to mid-right lobe Cardio: regular rhythm, no tachycardia today, S1, S2, no murmur, positive pulses to all 4 extremities GI: Abdomen is scaphoid,not distended, soft and non tender, bowel sounds are present Integumentary:skin with increased pallor compared to the day prior, no lesions or rash on exposed skin Extremities: strength 5/5 to left upper and lower ext. and 1/5 to the right side Psych: RASS 0, congruent mood and normal-depressed affect. Objective Last Vital Signs Temp 36.2 C L 06/04/23 21:38 Pulse 84 06/04/23 21:38 Resp 16 06/04/23 21:38 BP 100/62 06/04/23 21:38 Pulse Ox 92 06/04/23 21:38 Laboratory Results - last 24 hr 06/04/23 06/05/23 11:00 06:20 WBC 10.77 RBC 4.47 Hgb 9.1 L Hct 30.5 L MCV 68 L MCH 20.4 L MCHC 29.8 L RDW 19.3 H Plt Count 414 H MPV 11.0 Immature Gran % 0.6 Neutrophils % 80.5 Lymphocytes % 9.6 Monocytes % 5.7 Eosinophils % 3.2 Basophils % 0.4 Nucleated RBC % 0.0 Absolute Neutrophils 8.67 H Absolute Lymphocytes 1.03 L Absolute Monocytes 0.61 Absolute Eosinophils 0.35 Absolute Basophils 0.04 RBC Morphology See Below Microcytosis 2+ VBG pH 7.42 H VBG pCO2 36 L VBG pO2 87 VBG HCO3 24 VBG Total CO2 22 L VBG O2 Saturation 97 VBG Base Excess -1 Sodium 138 Potassium 3.9 Chloride 104 Carbon Dioxide 25.3 Anion Gap 8.7 BUN 20 H Creatinine 0.8 Est GFR (CKD-EPI 2020) 102.58 Glucose 122 H Calcium 8.7 Time Spent with Patient Time Spent with Patient: >50 minutes Time was spent: preparing to see the patient(eg.review tests), ordering medications,tests, procedures, referring, communicating with other health intensive care anaesthetist, indepentently interpreting results, counseling the patient and care coordination
[2023-06-05 11:28] VITALS: BP 97/63; RESP 12; TEMP 37.2; O2SAT 90
[2023-06-05 11:40] VITALS: O2SAT 98
--- NOTE | 2023-06-05 11:58 | PT.INNT ---
Date of service: 06/05/23 Time of Service: 10:16 PT Notes Visit Reasons: lung cancer w/brain metastasis, altered mental sta Patient refused therapy this morning; is agreeable to this clinician checking back in the afternoon. CM aware.
--- NOTE | 2023-06-05 15:25 | CHAPLAIN ---
I met Evi few months ago when his social media marketer from [facility], Denise, introduced me. At that time Asim knew he had lung cancer would eventually end up in the hospital, so it was nice to meet him and have a conversation, and get to know him a bit first. He lives alone in an apartment. He dog Geronimo is being taken care of by his friend Kaylee. Geronimo's care has been a big worry for Asim. He has sister who lives in [place] and she came to visit Asim this fall. Asim has lung cancer with mets to his brain. He has been falling and that brought him to the ED. He is eligible for hospice, but does not have someone to serve has his caregiver. Care Management is working on his long-term Medicare application to see if he would have funds to go to a terminal manager care facility for end of life care. Asim decided not to have an MRI because he said he didn't plan to do anything about the findings. He has discussed being on comfort measures with Palliative Care and is meeting again to day with Rizwana Locke, KENISHA, from Palliative. Asim said he likes Rizwana and Rizwana tells me straight what's going on. Asim asked to see the priest. Fr. Love will be here sometime tomorrow to visit. Asim said he hasn't told his sister he is here, but plans to do that. I will continue to visit.
[2023-06-05 15:29] VITALS: BP 96/64; PULSE 82; RESP 16; TEMP 36.8; O2SAT 94
--- NOTE | 2023-06-05 15:42 | PT.INNT ---
Date of service: 06/05/23 Time of Service: 15:35 PT Notes Visit Reasons: lung cancer w/brain metastasis, altered mental sta Patient refused therapy, stating that he feels he is not running at full capacity and does not feel up to engaging in therapy.
--- NOTE | 2023-06-05 15:57 | W.PALPGNOTE ---
Date of service: 06/05/23 Time of Service: 15:58 Assessment and Plan Assessment and plan (1) Lung cancer metastatic to brain: Status: Acute (2) Cancer related pain: Status: Acute (3) Bilateral lung cancer: Status: Acute (4) COPD (chronic obstructive pulmonary disease): Status: Chronic (5) Advanced care planning/counseling discussion: Status: Acute (6) Palliative care patient: Status: Acute Assessment and plan: Asim was seen for Palliative follow-up. He has been clear that he does not want to have treatment for his lung cancer. His outpatient palliative care has been focused on comfort and quality of life. He has been referred to hospice on multiple occasions but has not been admitted due to not having a caregiver and previously because he wanted to present to the ED rather than call hospice first. Now, he is admitted to [facility] with a new finding of brain lesion and right sided paralysis. Discussed goals of care. He continues to prefer to focus on comfort and quality of life. He is afraid of dying but we discussed that this metastatic cancer is likely going to lead to his . He agrees to focus on comfort. He will remain at [facility] for end of life care. will consider SNF placement but he does not currently have a payer source. His pain is not well controlled. Increase fentanyl to 75 mcg/hr, continue to titrate as needed. He requires assistance with all care. He named his sister, Renetta Wagoner to be his HCA, form completed. He wants to talk to Renetta. He has previously established that he is a DNR/DNI, he has a COLST on file. Palliative will continue to follow. Subjective Subjective Interval history since last seen: Harshad was seen in his room at the hospital. He has a Hx of lung cancer and was found to have a brain mass and has new right sided paralysis. He is weak and requires assistance with all care. He cannot walk, he has to be fed. He was on a 100 mcg/hr patch when he came into the hospital and it was decreased to 50 mcg/hr. He rates his pain at 6/10. He also reports that he is having emotional pain. Discussed increasing the fentanyl to 75 mcg/hr and he is in agreement. He also received a dose of IV MS during the visit. He had requested to [facility]el [facility] set up for a linderman machine operator to visit. He is worried about being alone. Discussed overall goals of care and reviewed that he chose not to treat the lung cancer previously and now there is high suspicion that it has spread to his brain. Reviewed that we have been focusing on comfort and quality of life prior to the discovery of the brain mass. He decided to continue to focus on comfort and quality of life. Discussed the importance of assigning a HCA. He chose to name his sister, Renetta Wagoner ([phone]) to be his HCA. He also requested that I reach out to his mental health worker, Janelle to ask her to bring his direct express card, food stamp card, chocolate shake. His phone is not working. Exam Narrative Exam Narrative: General: very pleasant, thin, middle aged man, laying in the hospital bed. He is awake and alert, answers questions appropriately. Responses are delayed. HEENT: normocephalic, atraumatic, EOMI, mmm, edentulous. Neck: supple, no JVD. Cardiovascular: heart sounds regular, nontachycardic. Respiratory: respirations appear even and unlabored, lung sounds are diminished. GI: +BS, abd soft, nondistended, nontender on palpation Extremities: unable to move RUE and RLE. Moves Left side. Objective Last Vital Signs Temp 36.8 C 06/05/23 15:29 Pulse 82 06/05/23 15:29 Resp 16 06/05/23 15:29 BP 96/64 L 06/05/23 15:29 Pulse Ox 94 06/05/23 15:29 Laboratory Results - last 24 hr 06/05/23 06:20 WBC 10.77 RBC 4.47 Hgb 9.1 L Hct 30.5 L MCV 68 L MCH 20.4 L MCHC 29.8 L RDW 19.3 H Plt Count 414 H MPV 11.0 Immature Gran % 0.6 Neutrophils % 80.5 Lymphocytes % 9.6 Monocytes % 5.7 Eosinophils % 3.2 Basophils % 0.4 Nucleated RBC % 0.0 Absolute Neutrophils 8.67 H Absolute Lymphocytes 1.03 L Absolute Monocytes 0.61 Absolute Eosinophils 0.35 Absolute Basophils 0.04 RBC Morphology See Below Microcytosis 2+ Sodium 138 Potassium 3.9 Chloride 104 Carbon Dioxide 25.3 Anion Gap 8.7 BUN 20 H Creatinine 0.8 Est GFR (CKD-EPI 2020) 102.58 Glucose 122 H Calcium 8.7
[2023-06-05] MEDS: MORPHine 2 MG/ML SYR IVP ×2 (16:39→19:58)
[2023-06-05] MEDS: LORazepam 1 MG TAB PO (17:03)
[2023-06-05] MEDS: Scopolamine 1 MG/3 DAYS PATCH TD (17:40)
[2023-06-05] MEDS: fentaNYL 75 MCG PATCH TD (17:40)
[2023-06-05 19:41] VITALS: PULSE 89; O2SAT 95
[2023-06-05] MEDS: Zolpidem 5 MG TAB PO (21:41)
[2023-06-06] MEDS: Acetaminophen 325 MG TAB PO ×2 (06:11→14:03)
[2023-06-06 06:17] VITALS: PULSE 82; RESP 10; O2SAT 93
--- NOTE | 2023-06-06 08:10 | OT.INNT ---
Occupational Therapy Notes 06/06/22 OT consult received and pts chart reviewed. Per nursing, allowing pt to sleep this morning. OT will attempt to resume consult at a later time to allow for this. Arlet Renteria, OTR/L
[2023-06-06] MEDS: MORPHine 2 MG/ML SYR IVP ×3 (09:34→20:20)
[2023-06-06] MEDS: Normal Saline Flush 10 ML SYR IVP ×4 (09:35→21:10)
--- NOTE | 2023-06-06 11:15 | PGE_ITS ---
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 (2) Weakness of right leg: Status: Acute Assessment and plan: Ongoing and most likely d/t above Dx As above (3) RUE weakness: Status: Acute Assessment and plan: As above (4) Hx of falling: Status: Acute (5) Pain: Status: Acute Assessment and plan: Multimodal pain management (6) Hyponatremia: Status: Acute (7) On deep vein thrombosis (DVT) prophylaxis: Status: Acute Assessment and plan: Continue SDC's (8) Hypoxemia: Status: Acute Assessment and plan: Titrate Oxygen for comfort (9) Discharge planning issues: Status: Acute Assessment and plan: DATA DEVELOPER Will remain in hospital Discussed with Dr Bean Subjective Subjective Patient reports: no new complaints Exam Narrative Exam Narrative: General: thin, appears older than stated age, laying in the hospital bed. Awake, alert, pleasant HEENT: normocephalic, atraumatic, EOMI, mmm, edentulous. Neck: supple, no JVD. Cardiovascular: S1S2, regular rate Respiratory: respirations nonlabored, lung sounds are diminished throughout. GI: +BS, abd soft, nondistended, nontender on palpation Extremities: unable to move RUE and RLE. Moves Left side. Objective Last Vital Signs Temp 36.8 C 06/05/23 15:29 Pulse 82 06/06/23 06:17 Resp 10 L 06/06/23 06:17 BP 96/64 L 06/05/23 15:29 Pulse Ox 93 06/06/23 06:17 Time Spent with Patient Time Spent with Patient: 25-34 minutes Time was spent: preparing to see the patient(eg.review tests) and care coordination
[2023-06-06] MEDS: levETIRAcetam 1,000 MG in Normal Saline 100 ML 400 MG IVPB ×2 (12:04→23:13)
--- NOTE | 2023-06-06 16:43 | PDOC.CMPRO ---
Date of service: 06/06/23 Time of Service: 16:43 Care Management Progress Note Progress Note Text Progress Note Text: Now on comfort care, referral faxed to [facility] for review. Chaplain Minerva stated four vistors were in room asking to be added to HIPPA. CM advised HIPPA form did not require completion by Shredder Tender Peat and could be completed by any staff. As well, CM reviewed that Sandy-primary CM for Asim-could review with him, to ensure his wishes, tomorrow.
--- NOTE | 2023-06-06 16:54 | CHAPLAIN ---
Asim is on comfort measures now. Fr. Love visited this afternoon. He told me he found that Asim wasn't able to respond to questions clearly. This morning when I visited Asim, he seemed very tired. I tried again later and he had three visitors in the room and was talking to a fourth friend on the phone. One of the visitors asked if he could be added to Asim's HIPPA list. We checked the list the two of the three visitors on on it already, as well as the person on the phone. Care Management will check tomorrow to see if Asim wants to add the fourth person.
[2023-06-06] MEDS: Melatonin 3 MG TAB 10 MG PO (21:11)
[2023-06-06] MEDS: oxyCODONE 5 MG TAB PO (21:11)
[2023-06-06] MEDS: Zolpidem 5 MG TAB PO (21:11)
[2023-06-07 00:21] VITALS: BP 96/63; PULSE 89; RESP 12; TEMP 36.7; O2SAT 94
[2023-06-07] MEDS: MORPHine 2 MG/ML SYR IVP ×4 (03:46→21:59)
[2023-06-07 07:58] VITALS: BP 100/64; PULSE 93; RESP 16; TEMP 37.2; O2SAT 93
[2023-06-07] MEDS: oxyCODONE 5 MG TAB PO ×2 (09:09→21:07)
[2023-06-07] MEDS: Normal Saline Flush 10 ML SYR IVP ×2 (09:12→19:43)
[2023-06-07] MEDS: levETIRAcetam 1,000 MG in Normal Saline 100 ML 400 MG IVPB ×2 (11:59→23:03)
--- NOTE | 2023-06-07 13:13 | PDOC.CMPRO ---
Date of service: 06/07/23 Time of Service: 13:13 Care Management Progress Note Progress Note Text Progress Note Text: S/O: Now on comfort care, referral faxed to [facility] for review. CM updated TOMATO PULPER OPERATOR OLIMPIA Luis on treatment and discharge planning and continues to follow. A: 57 year old admitted to [facility] for lung cancer with metastasis, AMS P: Asim remains on comfort care, referral for placement being reviewed by the [facility]. CM continues to follow.
[2023-06-07] MEDS: Docusate Sodium 100 MG CAP PO (16:32)
[2023-06-07] MEDS: Polyethylene Glycol 3350 17 GM PACKET PO (16:32)
--- NOTE | 2023-06-07 19:16 | W.PM.PROGNOT ---
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 (2) Weakness of right leg: Status: Acute Assessment and plan: Ongoing and most likely d/t above Dx As above (3) RUE weakness: Status: Acute Assessment and plan: As above (4) Hx of falling: Status: Acute (5) Pain: Status: Acute Assessment and plan: Multimodal pain management (6) Hyponatremia: Status: Acute (7) On deep vein thrombosis (DVT) prophylaxis: Status: Acute Assessment and plan: Continue SDC's (8) Hypoxemia: Status: Acute Assessment and plan: Titrate Oxygen for comfort (9) Discharge planning issues: Status: Acute Assessment and plan: SERVOMECHANISM ASSEMBLER Will remain in hospital Discussed with Dr Bean Subjective Subjective Patient reports: no new complaints, tolerating liquids well and afebrile; denies shortness of breath Interval history since last seen: no new c/o Exam Narrative Exam Narrative: Frail chronically ill appearing male older than stated age thin skin is pale warm dry well-perfused no acute distress head is atraumatic neck with no JVD full range of motion no tenderness on palpation respirations are even and unlabored cardiovascular regular rate and rhythm moves all extremities. Skin with no rashes or lesions. Back normal lordosis no CVA tenderness, reports tenderness to his low back on palpation bilateral. Objective Last Vital Signs Temp 37.2 C 06/07/23 07:58 Pulse 93 H 06/07/23 07:58 Resp 16 06/07/23 07:58 BP 100/64 06/07/23 07:58 Pulse Ox 93 06/07/23 07:58 Time Spent with Patient Time Spent with Patient: 35-49 minutes Time was spent: preparing to see the patient(eg.review tests) and counseling the patient
[2023-06-07] MEDS: Promethazine 25 MG TAB PO (19:59)
[2023-06-07] MEDS: LORazepam 1 MG TAB PO (20:06)
[2023-06-07] MEDS: Melatonin 3 MG TAB 10 MG PO (21:07)
[2023-06-07] MEDS: Zolpidem 5 MG TAB PO (21:07)
[2023-06-07] MEDS: Acetaminophen 325 MG TAB PO (22:24)
[2023-06-08] MEDS: MORPHine 2 MG/ML SYR IVP (05:04)
[2023-06-08] MEDS: Normal Saline Flush 10 ML SYR IVP ×2 (07:42→23:10)
--- NOTE | 2023-06-08 09:38 | CMPROGNOTE_ITS ---
Date of service: 06/08/23 Time of Service: 09:38 Care Management Progress Note Progress Note Text Progress Note Text: S/O: Harshad was lying in bed when CM met with him. He stated that he is very tired and weak, and he is still eating and drinking, but not much. CM spoke to Janelle, his ECHOCARDIOGRAPHY TECHNOLOGIST support, who stated that his intermediate manager SWATI was approved, and the approval was sent to the [facility]. CM called the [facility] and left a message with admissions. CM spoke to Harshad's sister, Renetta, who stated that she will visit over the weekend. CM will continue to follow. A: 57 year old admitted to [facility] for lung cancer with metastasis, AMS P: Asim remains on comfort care, referral for placement being reviewed by the [facility]. CM continues to follow.
[2023-06-08] MEDS: levETIRAcetam 1,000 MG in Normal Saline 100 ML 400 MG IVPB ×2 (11:55→23:07)
[2023-06-08] MEDS: LORazepam 1 MG TAB PO ×2 (12:51→15:58)
[2023-06-08] MEDS: oxyCODONE 5 MG TAB PO ×2 (15:58→20:37)
[2023-06-08] MEDS: Polyethylene Glycol 3350 17 GM PACKET PO (15:59)
[2023-06-08] MEDS: OLANZapine 10 MG TAB PO (15:59)
--- NOTE | 2023-06-08 16:27 | PGE_ITS ---
Date of Service Date of service: 06/08/23 Time of Service: 16:27 Assessment and Plan Assessment and plan (1) Lung cancer metastatic to brain: Status: Acute Assessment and plan: VP CARDIOVASCULAR SERVICE LINE (2) Weakness of right leg: Status: Acute Assessment and plan: Ongoing and most likely d/t above Dx As above (3) RUE weakness: Status: Acute Assessment and plan: As above (4) Hx of falling: Status: Acute (5) Pain: Status: Acute Assessment and plan: Multimodal pain management (6) Hyponatremia: Status: Acute (7) On deep vein thrombosis (DVT) prophylaxis: Status: Acute Assessment and plan: Continue SDC's (8) Hypoxemia: Status: Acute Assessment and plan: Titrate Oxygen for comfort (9) Discharge planning issues: Status: Acute Assessment and plan: VP CARDIOVASCULAR SERVICE LINE Will remain in hospital Discussed with Dr Brennan Subjective Subjective Patient reports: no new complaints, tolerating liquids well, tolerating a regular diet and afebrile; denies shortness of breath Exam Narrative Exam Narrative: Frail chronically ill appearing male older than stated age thin skin is pale warm dry well-perfused no acute distress head is atraumatic neck with no JVD full range of motion no tenderness on palpation respirations are even and unlabored cardiovascular regular rate and rhythm moves all extremities. Skin with no rashes or lesions. Back normal lordosis no CVA tenderness, reports tenderness to his low back on palpation bilateral. Objective Last Vital Signs Temp 37.2 C 06/07/23 07:58 Pulse 93 H 06/07/23 07:58 Resp 16 06/07/23 07:58 BP 100/64 06/07/23 07:58 Pulse Ox 93 06/07/23 07:58 Time Spent with Patient Time Spent with Patient: 25-34 minutes Time was spent: preparing to see the patient(eg.review tests) and counseling the patient
[2023-06-08] MEDS: Scopolamine 1 MG/3 DAYS PATCH TD (17:42)
[2023-06-08] MEDS: fentaNYL 75 MCG PATCH TD (17:43)
--- NOTE | 2023-06-08 18:00 | NUR.NOTE ---
Patient had fentanyl patch removed from the left shoulder. And new fentanyl patch applied to the right shoulder blade. Scopalamine patch applied behind the right ear
[2023-06-08] MEDS: Zolpidem 5 MG TAB PO (23:07)
[2023-06-09] MEDS: Normal Saline Flush 10 ML SYR IVP ×4 (08:30→17:25)
[2023-06-09] MEDS: levETIRAcetam 1,000 MG in Normal Saline 100 ML 400 MG IVPB ×2 (11:30→23:53)
[2023-06-09] MEDS: oxyCODONE 5 MG TAB PO ×2 (11:30→20:09)
--- NOTE | 2023-06-09 13:23 | W.PM.PROGNOT ---
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 (2) Weakness of right leg: Status: Acute Assessment and plan: Ongoing and most likely d/t above Dx As above (3) RUE weakness: Status: Acute Assessment and plan: As above (4) Hx of falling: Status: Acute (5) Pain: Status: Acute Assessment and plan: Multimodal pain management (6) Hyponatremia: Status: Acute (7) On deep vein thrombosis (DVT) prophylaxis: Status: Acute Assessment and plan: Continue SDC's (8) Hypoxemia: Status: Acute Assessment and plan: Titrate Oxygen for comfort (9) Discharge planning issues: Status: Acute Assessment and plan: EQUIPMENT OPERATOR/LABORER/SUPERVISOR Will remain in hospital Discussed with Dr Brennan Subjective Subjective Patient reports: no new complaints Exam Narrative Exam Narrative: General: thin, appears older than stated age, laying in the hospital bed. Awake, alert, pleasant HEENT: normocephalic, atraumatic, EOMI, mmm, edentulous. Neck: supple, no JVD. Cardiovascular: S1S2, regular rate Respiratory: respirations nonlabored, lung sounds are diminished throughout. GI: +BS, abd soft, nondistended, nontender on palpation Extremities: unable to move RUE and RLE. Moves Left side. Objective Last Vital Signs Temp 37.2 C 06/07/23 07:58 Pulse 93 H 06/07/23 07:58 Resp 16 06/07/23 07:58 BP 100/64 06/07/23 07:58 Pulse Ox 93 06/07/23 07:58 Time Spent with Patient Time Spent with Patient: 25-34 minutes Time was spent: preparing to see the patient(eg.review tests)
[2023-06-09] MEDS: MORPHine 2 MG/ML SYR IVP ×2 (17:25→23:59)
[2023-06-09 21:00] VITALS: PULSE 78; RESP 14; O2SAT 94
[2023-06-09] MEDS: Zolpidem 5 MG TAB PO (23:58)
[2023-06-10] MEDS: oxyCODONE 5 MG TAB PO ×2 (04:24→19:55)
[2023-06-10] MEDS: Normal Saline Flush 10 ML SYR IVP ×4 (09:20→20:19)
--- NOTE | 2023-06-10 11:37 | PGE_ITS ---
Date of Service Date of service: 06/10/23 Time of Service: 11:37 Assessment and Plan Assessment and plan (1) Lung cancer metastatic to brain: Status: Acute Assessment and plan: TAX COMPLIANCE AGENT (2) Weakness of right leg: Status: Acute Assessment and plan: Ongoing and most likely d/t above Dx As above (3) RUE weakness: Status: Acute Assessment and plan: As above (4) Hx of falling: Status: Acute (5) Pain: Status: Acute Assessment and plan: Multimodal pain management (6) Hyponatremia: Status: Acute (7) On deep vein thrombosis (DVT) prophylaxis: Status: Acute Assessment and plan: Continue SDC's (8) Hypoxemia: Status: Acute Assessment and plan: Titrate Oxygen for comfort (9) Discharge planning issues: Status: Acute Assessment and plan: TAX COMPLIANCE AGENT referrals placed and the [facility] admission pending Discussed with Dr Brennan Subjective Subjective Patient reports: no new complaints, tolerating liquids well, tolerating a regular diet and afebrile; denies shortness of breath Exam Narrative Exam Narrative: Frail chronically ill appearing male older than stated age thin skin is pale warm dry well-perfused no acute distress head is atraumatic neck with no JVD full range of motion no tenderness on palpation respirations are even and unlabored cardiovascular regular rate and rhythm moves all extremities. Skin with no rashes or lesions. Back normal lordosis no CVA tenderness, reports tenderness to his low back on palpation bilateral. Objective Last Vital Signs Temp 37.2 C 06/07/23 07:58 Pulse 78 06/09/23 21:00 Resp 14 06/09/23 21:00 BP 100/64 06/07/23 07:58 Pulse Ox 94 06/09/23 21:00 Time Spent with Patient Time Spent with Patient: <25 minutes Time was spent: preparing to see the patient(eg.review tests) and counseling the patient
[2023-06-10] MEDS: levETIRAcetam 1,000 MG in Normal Saline 100 ML 400 MG IVPB ×2 (12:25→23:59)
[2023-06-10] MEDS: Milk of Magnesia 30 ML CUP PO (12:26)
[2023-06-10] MEDS: Promethazine 25 MG TAB PO (12:26)
[2023-06-10] MEDS: Mylanta Suspension 30 ML CUP PO (13:28)
[2023-06-10] MEDS: LORazepam 2 MG/ML VIAL IV/SC (16:18)
[2023-06-10] MEDS: LORazepam 1 MG TAB PO (19:56)
[2023-06-10] MEDS: OLANZapine 10 MG TAB PO (19:56)
[2023-06-10] MEDS: Zolpidem 5 MG TAB PO (19:57)
[2023-06-10] MEDS: Melatonin 3 MG TAB 9 MG PO (19:57)
[2023-06-10] MEDS: Prochlorperazine 10 MG/2 ML VIAL IVP (20:18)
[2023-06-10] MEDS: MORPHine 2 MG/ML SYR IVP (20:18)
--- NOTE | 2023-06-10 23:43 | NUR.NOTE ---
Patient vomited copious tonight, same was dark brown and copious,CC informed of same
[2023-06-11] MEDS: LORazepam 2 MG/ML VIAL IV/SC (02:31)
[2023-06-11] MEDS: MORPHine 2 MG/ML SYR IVP (06:34)
[2023-06-11] MEDS: Normal Saline Flush 10 ML SYR IVP ×2 (07:28→20:07)
[2023-06-11] MEDS: levETIRAcetam 1,000 MG in Normal Saline 100 ML 400 MG IVPB (12:07)
--- NOTE | 2023-06-11 14:16 | W.PALPGNOTE ---
Date of service: 06/06/23 Time of Service: 16:30 Assessment and Plan Assessment and plan (1) Lung cancer metastatic to brain: Status: Acute (2) Cancer related pain: Status: Acute (3) Bilateral lung cancer: Status: Acute (4) COPD (chronic obstructive pulmonary disease): Status: Chronic (5) Advanced care planning/counseling discussion: Status: Acute (6) Palliative care patient: Status: Acute Assessment and plan: Asim was seen for Palliative follow-up. He appears more fatigued and weak. His responses are delayed. He was medicated for pain during the visit. He is eating small amounts with assistance. He cannot use his R side (RUE and RLE). He appears to be declining significantly. He requires assistance with all care. He is currently on fentanyl patch for pain with PRN IV MS. Consider transition to IV drip. He named his sister, Renetta Wagoner to be his HCA, form on file. He has previously established that he is a DNR/DNI, he has a COLST on file. Palliative will continue to follow. Subjective Subjective Interval history since last seen: Harshad was seen in his hospital room for palliative f/u. He was awake but appeared to be more drowsy. His dinner was in front of him and he had not touched it, he asked me to move it. He did not feel hungry. Staff report that he is eating small amounts of some meals and refusing other meals. He requires assistance with feeding due to his right sided paralysis. He reported that he was having more pain, I asked nursing to medicate him. He denies N/V. He had several visitors today. Minerva Romero, [facility] Appian Developer came to see him during the visit. Exam Narrative Exam Narrative: General: pleasant, thin, middle aged man, laying in the hospital bed. He is chronically ill appearing. Skin is pale. He appears fatigued. Responses are delayed. HEENT: normocephalic, atraumatic, EOMI, mmm, edentulous. Neck: supple, no JVD. Cardiovascular: heart sounds regular, nontachycardic. Respiratory: respirations appear even and unlabored, lung sounds are diminished. GI: +BS, abd soft, nondistended, nontender on palpation Extremities: unable to move RUE and RLE. Moves Left side. Objective Last Vital Signs Temp 37.2 C 06/07/23 07:58 Pulse 78 06/09/23 21:00 Resp 14 06/09/23 21:00 BP 100/64 06/07/23 07:58 Pulse Ox 94 06/09/23 21:00
--- NOTE | 2023-06-11 15:30 | W.PM.PROGNOT ---
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 (2) Weakness of right leg: Status: Acute Assessment and plan: Ongoing and most likely d/t above Dx As above (3) RUE weakness: Status: Acute Assessment and plan: As above (4) Hx of falling: Status: Acute (5) Pain: Status: Acute Assessment and plan: Multimodal pain management (6) Hyponatremia: Status: Acute (7) On deep vein thrombosis (DVT) prophylaxis: Status: Acute Assessment and plan: Continue SDC's (8) Hypoxemia: Status: Acute Assessment and plan: Titrate Oxygen for comfort (9) Discharge planning issues: Status: Acute Assessment and plan: OBSTETRICS TECHNICIAN referrals placed and the [facility] admission pending Discussed with Dr Brennan Subjective Subjective Patient reports: no new complaints, tolerating liquids well and afebrile; denies shortness of breath Exam Narrative Exam Narrative: Frail chronically ill appearing male older than stated age thin skin is pale warm dry well-perfused no acute distress head is atraumatic neck with no JVD full range of motion no tenderness on palpation respirations are even and unlabored cardiovascular regular rate and rhythm moves all extremities. Skin with no rashes or lesions. Back normal lordosis no CVA tenderness, reports tenderness to his low back on palpation bilateral. Objective Last Vital Signs Temp 37.2 C 06/07/23 07:58 Pulse 78 06/09/23 21:00 Resp 14 06/09/23 21:00 BP 100/64 06/07/23 07:58 Pulse Ox 94 06/09/23 21:00 Time Spent with Patient Time Spent with Patient: <25 minutes Time was spent: preparing to see the patient(eg.review tests) and counseling the patient
--- NOTE | 2023-06-11 15:55 | PDOC.CMPRO ---
Date of service: 06/11/23 Time of Service: 15:55 Care Management Progress Note Progress Note Text Progress Note Text: S/O: Harshad was sleeping when CM attempted to meet with him; CM did not wake him. CM met with Harshad and his sister yesterday, and discussed sending referrals to facilities in [place], [place], as it is close to where she lives. Harshad agreed to this plan, as he is looking forward to visiting with her regularly. CM sent the referral to the [facility] broadcast operations director. CM received notification from the broadcast operations director for [facility] stating that there are no fpc/hospice beds available at any facilities in [place] at this time throughout the [facility] network. CM sent a referral to [facility], which is also in [place]. CM attempted to reach admissions at the [facility] again today with no response. CM will continue to follow. A: 57 year old admitted to [facility] for lung cancer with metastasis, AMS P: Asim remains on comfort care, referral for placement being reviewed by the [facility]. Referrals were also placed with [facility] broadcast operations director with a preference of [place] [facility], as well as [facility] in [place], [place]. CM continues to follow.
[2023-06-11] MEDS: Scopolamine 1 MG/3 DAYS PATCH TD (17:47)
[2023-06-11] MEDS: fentaNYL 75 MCG PATCH TD (17:47)
[2023-06-11] MEDS: Prochlorperazine 10 MG/2 ML VIAL IVP (20:07)
[2023-06-11] MEDS: Melatonin 3 MG TAB 9 MG PO (21:28)
[2023-06-11] MEDS: Zolpidem 5 MG TAB PO (21:28)
[2023-06-11] MEDS: oxyCODONE 5 MG TAB PO (21:28)
[2023-06-12] MEDS: levETIRAcetam 1,000 MG in Normal Saline 100 ML 400 MG IVPB ×2 (00:15→13:03)
[2023-06-12] MEDS: Normal Saline Flush 10 ML SYR IVP ×2 (07:40→13:03)
[2023-06-12 09:35] VITALS: BP 111/74; PULSE 108; RESP 14; TEMP 36.8; O2SAT 93
[2023-06-12 10:33] VITALS: O2SAT 93
--- NOTE | 2023-06-12 14:39 | CMPROGNOTE_ITS ---
Date of service: 06/12/23 Time of Service: 14:39 Care Management Progress Note Progress Note Text Progress Note Text: Asim remains inpatient at [facility] for End of Life Care. Anticipate with stability, he is likely to transfer to lower level of care. Denise from [employer] remains fully engaged in his treatment, and is supporting the family. She reported having some paperwork to complete as well attempting to find his social security income card in which to pay his bills. CM transferred Denise to M/S to inquire about personal belongings and Asim's ability to complete paperwork at this time. CM left for [facility] to inquire to pending referral.
--- NOTE | 2023-06-12 16:41 | CHAPLAIN ---
I haven't seen Asim since 06/08, when he was sitting up talking, having conversations and visiting with friends. Today he has been sleeping and not really responsive. He seems comfortable. He is taking short, shallow breaths. His sister from [place] visited over the weekend and is touch with nurses by phone. More friends visited today.
[2023-06-12] MEDS: MORPHine 2 MG/ML SYR IVP (21:55)
[2023-06-13] MEDS: Normal Saline Flush 10 ML SYR IVP ×3 (06:15→21:45)
[2023-06-13] MEDS: MORPHine 2 MG/ML SYR IVP ×3 (06:16→11:55)
[2023-06-13] MEDS: levETIRAcetam Oral Solution 100 MG/ML 1000 MG PO ×2 (10:17→21:43)
[2023-06-13] MEDS: LORazepam 2 MG/ML VIAL IV/SC ×2 (10:29→13:20)
--- NOTE | 2023-06-13 14:35 | PDOC.CMPRO ---
Date of service: 06/13/23 Time of Service: 14:35 Care Management Progress Note Progress Note Text Progress Note Text: Asim remains inpatient at [facility] for End of Life Care. Per hospitalist he is actively dying. OLIMPIA spoke with [facility] who declined Asim's referral. OLIMPIA continues to follow.
[2023-06-13] MEDS: [UNRECOGNIZED DRUG - OTHER] 1 EACH TD (15:00)
--- NOTE | 2023-06-13 15:35 | CHAPLAIN ---
Asim was sitting up in bed, though slumped down a bit. His sister, Jaime, was sleepinging the recliner when I visited this morning. She drove up from [place] yesterday and spent the night. Asim was having trouble drinking with the straw so I was able to help him with that. Jaime was worried about his pain control and said he didn't sleep well last night so we asked his nurse to come in and adjust him in bed and address the pain issue. I will continue to visit.
--- NOTE | 2023-06-13 15:43 | PGE_ITS ---
Date of Service Date of service: 06/12/23 Time of Service: 16:00 Assessment and Plan Assessment and plan (1) Lung cancer metastatic to brain: Status: Acute Assessment and plan: RESEARCH ASST (2) Weakness of right leg: Status: Acute Assessment and plan: Ongoing and most likely d/t above Dx As above (3) RUE weakness: Status: Acute Assessment and plan: As above (4) Hx of falling: Status: Acute (5) Pain: Status: Acute Assessment and plan: Multimodal pain management (6) Hyponatremia: Status: Acute (7) On deep vein thrombosis (DVT) prophylaxis: Status: Acute Assessment and plan: Continue SDC's (8) Hypoxemia: Status: Acute Assessment and plan: Titrate Oxygen for comfort (9) Discharge planning issues: Status: Acute Assessment and plan: RESEARCH ASST referrals placed and the [facility] admission pending All IV medications were changed to oral this morning but currently patient is unable to take oral will offer if status changes for now continue as needed medications for comfort Discussed with Dr Brennan Subjective Subjective Interval history since last seen: Patient is less responsive today, as the day goes by is more somnolent and not safe to take oral intake Exam Narrative Exam Narrative: Frail chronically ill appearing male older than stated age thin skin is pale warm dry well-perfused resting quietly in the bed with eyes closed in no acute distress head is atraumatic neck with no JVD respirations are even and unlabored cardiovascular regular rate and rhythm Skin with no rashes or lesions. Patient is somnolent but does respond to verbal stimuli Objective Last Vital Signs Temp 36.8 C 06/12/23 09:35 Pulse 108 H 06/12/23 09:35 Resp 14 06/12/23 09:35 BP 111/74 06/12/23 09:35 Pulse Ox 93 06/12/23 10:33 Time Spent with Patient Time Spent with Patient: <25 minutes Time was spent: preparing to see the patient(eg.review tests) and ordering medications,tests, procedures
--- NOTE | 2023-06-13 15:46 | W.PM.PROGNOT ---
Date of Service Date of service: 06/13/23 Time of Service: 15:47 Assessment and Plan Assessment and plan (1) Lung cancer metastatic to brain: Status: Acute Assessment and plan: [facility] (2) Weakness of right leg: Status: Acute Assessment and plan: Ongoing and most likely d/t above Dx As above (3) RUE weakness: Status: Acute Assessment and plan: As above (4) Hx of falling: Status: Acute (5) Pain: Status: Acute Assessment and plan: Will DC fentanyl patch and start morphine infusion for easier titration. Conversion per pharmacy based on current usage Continue multimodal pain management (6) Hyponatremia: Status: Acute (7) On deep vein thrombosis (DVT) prophylaxis: Status: Acute Assessment and plan: Continue SDC's (8) Hypoxemia: Status: Acute Assessment and plan: Titrate Oxygen for comfort (9) Discharge planning issues: Status: Acute Assessment and plan: [facility] referrals placed and the [facility] has declined admission. Due to his deterioration over the past 24 hours suspect that he may remain here for end-of-life care All IV medications were changed to oral this morning but currently patient is unable to take oral will offer if status changes for now continue as needed medications for comfort Discussed with Dr Garvey Subjective Subjective Interval history since last seen: Patient continues with decreased mentation. Is taking some sips of fluids intermittently. Was moaning and restless most of the night according to his sister appears more comfortable now after receiving Ativan Objective Last Vital Signs Temp 36.8 C 06/12/23 09:35 Pulse 108 H 06/12/23 09:35 Resp 14 06/12/23 09:35 BP 111/74 06/12/23 09:35 Pulse Ox 93 06/12/23 10:33 Time Spent with Patient Time Spent with Patient: 25-34 minutes Time was spent: preparing to see the patient(eg.review tests), obtaining and/or reviewing separately otained hiistory, ordering medications,tests, procedures, indepentently interpreting results and care coordination
[2023-06-13] MEDS: Zolpidem 5 MG TAB PO (21:44)
[2023-06-13] MEDS: Melatonin 3 MG TAB 9 MG PO (21:44)
--- NOTE | 2023-06-14 09:36 | PGE_ITS ---
Date of Service Date of service: 06/14/23 Time of Service: 09:37 Assessment and Plan Assessment and plan (1) Lung cancer metastatic to brain: Status: Acute Assessment and plan: METAL BUMPER: On morphine sulfate drip to be adjusted as needed to maintain comfort Continue other METAL BUMPER orders (2) Pain: Status: Acute Assessment and plan: As above (3) Weakness of right leg: Status: Acute Assessment and plan: As above (4) RUE weakness: Status: Acute Assessment and plan: As above (5) Hyponatremia: Status: Acute Assessment and plan: As above (6) On deep vein thrombosis (DVT) prophylaxis: Status: Acute Assessment and plan: Continue SDC's (7) Hypoxemia: Status: Acute Assessment and plan: Titrate PRN oxygen for comfort (8) Discharge planning issues: Status: Acute Assessment and plan: METAL BUMPER referrals placed but patient might be imminently dying and will most likely remain here for end-of-life care Discussed with Dr Garvey Subjective Subjective Interval history since last seen: Patient is on comfort care measures, with ongoing morphine drip, denies pain. Sister at bedside stated back patient has been comfortable all night, slept well and that there was no further needs at this point. Exam Narrative Exam Narrative: Patient appears frail, chronically ill; skin is sallow thin pale and warm. Sister at bedside Patient is resting quietly in the bed without acute distress Unlabored breathing Well-perfused, no cyanosis, no mottling No lesion or rash seen on skin Patient is somnolent but opens eyes briefly to verbal stimuli Objective Last Vital Signs Temp 36.8 C 06/12/23 09:35 Pulse 108 H 06/12/23 09:35 Resp 14 06/12/23 09:35 BP 111/74 06/12/23 09:35 Pulse Ox 93 06/12/23 10:33 Time Spent with Patient Time Spent with Patient: >50 minutes Time was spent: preparing to see the patient(eg.review tests), ordering medications,tests, procedures, referring, communicating with other health career guidance technician, indepentently interpreting results, counseling the patient and care coordination
--- NOTE | 2023-06-14 10:18 | PDOC.CMPRO ---
Date of service: 06/14/23 Time of Service: 10:18 Care Management Progress Note Progress Note Text Progress Note Text: S/O: Harshad was resting comfortably, lying in bed when CM met with him. He responded minimally. His sister, Jaime was in the room, and stated that she plans to remain by his side through the end of his life. He was placed on a morphine pump for better pain control. Palliative care met with him and his sister today to review his plan of care and offer support. CM will continue to follow. A: Asim is a 57 year old admitted to [facility] for lung cancer with metastasis, AMS P: Asim remains on comfort care, and will remain at [facility] for end of life care. CM will provide resources for final arrangements. CM will continue to support Harshad and his family during this difficult time.
[2023-06-14] MEDS: levETIRAcetam Oral Solution 100 MG/ML 1000 MG PO ×2 (10:21→20:55)
[2023-06-14] MEDS: Normal Saline Flush 10 ML SYR IVP (10:21)
--- NOTE | 2023-06-14 13:59 | W.PALPGNOTE ---
Date of service: 06/14/23 Time of Service: 14:29 Assessment and Plan Assessment and plan (1) Lung cancer metastatic to brain: Status: Acute (2) Cancer related pain: Status: Acute (3) Bilateral lung cancer: Status: Acute (4) COPD (chronic obstructive pulmonary disease): Status: Chronic (5) Advanced care planning/counseling discussion: Status: Acute (6) Palliative care patient: Status: Acute Assessment and plan: Asim was seen for Palliative follow-up. His sister was present for the visit. 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 He was transitioned to IV Morphine drip yesterday. He appears to be comfortable. He is not eating (x5 days). He is taking occasional sips of fluids. He appears fatigued and weak. His responses are delayed. He cannot hold a conversation. He is declining significantly. Discussed with his sister, Jaime that his time is measured in hours to days. He is dependent on others for all care. He named his sister, Renetta Wagoner to be his HCA, form on file. He has previously established that he is a DNR/DNI, he has a COLST on file. Palliative will continue to follow. Subjective Subjective Interval history since last seen: Harshad was seen with his sister, Jaime present. He was asleep but awakened easily to verbal stimuli. He was able to answer some questions with brief responses. His responses are delayed. He answers yes when questioned if he was comfortable. He denies pain. He is not eating, he has only had sips x5 days. His sister feels he is more comfortable than he was before the morphine drip was initiated. She plans to stay with him, she does not want him to be alone. Exam Narrative Exam Narrative: General: very pleasant, cachectic, chronically ill appearing man, laying in bed. He was sleeping but awakened easily to verbal stimuli. His responses are delayed and brief. He does not answer some questions at all. He appears weak and fatigued, he was falling asleep by the end of the visit. He appears calm and comfortable. HEENT: normocephalic, atraumatic, EOMI, mm dry. Neck: supple, no JVD Cardiovascular: heart sounds regular Respiratory: respirations appear even and unlabored. GI: abd soft Extremities: thin, cannot move RUE or RLE, no edema, hands and feet are cool to touch. Objective Last Vital Signs Temp 36.8 C 06/12/23 09:35 Pulse 108 H 06/12/23 09:35 Resp 14 06/12/23 09:35 BP 111/74 06/12/23 09:35 Pulse Ox 93 06/12/23 10:33
--- NOTE | 2023-06-14 17:33 | CHAPLAIN ---
Asim's continues on comfort measures. He appears to be comfortable. Is mostly sleeping, but wakes up at times and responses minimally to conversation. His sister Jaime is here with him and plans to stay with his through the end of his life. She said he seems to be comfortable now that he has a morphine drip going. The core winder has been in to offer last rites.
[2023-06-14] MEDS: Scopolamine 1 MG/3 DAYS PATCH TD (18:11)
[2023-06-14] MEDS: LORazepam 2 MG/ML VIAL IV/SC (22:24)
[2023-06-15] MEDS: LORazepam 2 MG/ML VIAL IV/SC ×6 (00:57→21:01)
[2023-06-15] MEDS: Normal Saline Flush 10 ML SYR IVP ×3 (01:00→21:01)
--- NOTE | 2023-06-15 09:47 | PDOC.CMPRO ---
Date of service: 06/15/23 Time of Service: 09:47 Care Management Progress Note Progress Note Text Progress Note Text: S/O: Harshad was resting comfortably in bed when CM met with him. He is no longer responding. His sister is in the room and stated that she has seen a big change since yesterday, as he is no longer opening his eyes. Renetta had asked palliative care about the state assisting with his burial costs. CM called [facility], who stated that they will work with his sister and the state to make arrangements, and that there are funds for up to $1100, unless the individual has assets. Renetta stated that she does not believe that he has any assets. CM will continue to follow. A: Asim is a 57 year old admitted to [facility] for lung cancer with metastasis, AMS P: Asim remains on comfort care, and will remain at [facility] for end of life care. CM provided information for [facility] to Renetta; [facility] will help coordinate with the state for assistance with his final arrangements. CM will continue to support Harshad and his family during this difficult time. SDOH(Care Management) Screening Will the Patient Participate in the Screening?: Yes Do you worry about having a steady place to live?: no Problems where you live: no known problems In the past 12 months, have you had to go without electric, gas, oil or water in your home?: no Have you or anyone in your house had to go without enough food to eat?: no Has lack of transportation kept you from medical appointments or from doing things needed for daily living?: no Has anyone in your support network made you feel unsafe for any reason?: no
--- NOTE | 2023-06-15 10:37 | PGE_ITS ---
Date of Service Date of service: 06/15/23 Time of Service: 10:37 Assessment and Plan Assessment and plan (1) Lung cancer metastatic to brain: Status: Acute Assessment and plan: FISH AND WILDLIFE BIOLOGIST: On morphine sulfate drip to be adjusted as needed to maintain comfort, dose increased as well as bolus Lorazepam PRN : dose increased to 2mg Continue other FISH AND WILDLIFE BIOLOGIST orders (2) Pain: Status: Acute Assessment and plan: As above (3) Weakness of right leg: Status: Acute Assessment and plan: As above (4) RUE weakness: Status: Acute Assessment and plan: As above (5) Hyponatremia: Status: Acute Assessment and plan: As above (6) On deep vein thrombosis (DVT) prophylaxis: Status: Acute Assessment and plan: Continue SDC's (7) Hypoxemia: Status: Acute Assessment and plan: Titrate PRN oxygen for comfort (8) Discharge planning issues: Status: Acute Assessment and plan: FISH AND WILDLIFE BIOLOGIST will most likely remain here for end-of-life care Discussed with Dr Garvey Subjective Subjective Interval history since last seen: On FISH AND WILDLIFE BIOLOGIST, slight discomfort evidenced by moaning Exam Narrative Exam Narrative: General: cachectic, pale, moaning HEENT: no eye opening with stimulation Neck: no JVD Cardiac: tachycardia, S1-S2 Respiratory: respirations are shallow. Extremities: thin, no mottling noted. Objective Last Vital Signs Temp 36.8 C 06/12/23 09:35 Pulse 108 H 06/12/23 09:35 Resp 14 06/12/23 09:35 BP 111/74 06/12/23 09:35 Pulse Ox 93 06/12/23 10:33 Time Spent with Patient Time Spent with Patient: >50 minutes Time was spent: preparing to see the patient(eg.review tests), obtaining and/or reviewing separately otained hiistory, ordering medications,tests, procedures, referring, communicating with other health complex care nurse practitioner, indepentently interpreting results, counseling the patient and care coordination
[2023-06-15] MEDS: LORazepam 2 MG/ML VIAL IVP (12:33)
--- NOTE | 2023-06-15 13:00 | W.PALPGNOTE ---
Date of service: 06/15/23 Time of Service: 13:00 Assessment and Plan Assessment and plan (1) Lung cancer metastatic to brain: Status: Acute (2) Cancer related pain: Status: Acute (3) Bilateral lung cancer: Status: Acute (4) COPD (chronic obstructive pulmonary disease): Status: Chronic (5) Advanced care planning/counseling discussion: Status: Acute (6) Palliative care patient: Status: Acute Assessment and plan: Asim was seen for Palliative follow-up. His sister was present for the visit. He is on [facility]. He remains on morphine drip. Continue to titrate rate for comfort. He is also receiving PRN lorazepam, dose increased. Consider haloperidol for restlessness, agitation, anxiety, delirium. He is unresponsive. He has not had anything to eat x6 days. Discussed life expectancy with Jaime. His life expectancy is measured in hours to short days. He named his sister, Renetta Wagoner to be his HCA, form on file. He has previously established that he is a DNR/DNI, he has a COLST on file. Palliative will continue to follow. Subjective Subjective Interval history since last seen: Harshad was seen for Palliative f/u. He is in the hospital on [facility]. Nursing reached out to Palliative reporting that Asim did not appear to be comfortable. He was moaning and grimacing. His Morphine drip was increased, he has received boluses and his lorazepam dose was increased. By the time of this visit, he appeared to be comfortable. His respirations are shallow. He is unresponsive. His sister, Jaime remains with him. She plans to stay with him until he passes. Jaime feels that he is comfortable at this time and she verbalizes feeling grateful for the care that he is receiving. Exam Narrative Exam Narrative: General: cachectic, chronically ill appearing man, laying in bed. He is unresponsive, occasionally moans, no grimacing. Skin is pale. HEENT: normocephalic, atraumatic, EOMI, mm dry. Neck: no JVD Respiratory: respirations are shallow. GI: abd soft Extremities: thin, no mottling noted. Objective Last Vital Signs Temp 36.8 C 06/12/23 09:35 Pulse 108 H 06/12/23 09:35 Resp 14 06/12/23 09:35 BP 111/74 06/12/23 09:35 Pulse Ox 93 06/12/23 10:33
--- NOTE | 2023-06-15 15:11 | CHAPLAIN ---
Asim was sleeping when I visited. He remains on comfort measures and is sleeping most of the time, less responsive. His sister, Jaime, remains at this bedside and spends the night. She said she will stay here until he dies. Rizwana Locke, PLASTERER MAINTENANCE from Palliative Care visited today and said Asim likely has hours to short days to live. I reminded Jaime and a flatwork presser is available to her 11/12 if she would like company. She said she would be ok. Jaime said she and Asim are three years apart. Asim was a foster brother in her family, but considered her mother to be his mother as well, and he continued to keep in touch with Jaime. Asim's friends have continued to visit, as well as Janelle, from [facility].
[2023-06-15 22:50] VITALS: RESP 36
[2023-06-16] MEDS: LORazepam 2 MG/ML VIAL IV/SC (03:46)
[2023-06-16] MEDS: Normal Saline Flush 10 ML SYR IVP ×2 (03:47→08:55)
--- NOTE | 2023-06-16 10:53 | NUR.NOTE ---
TOD: 1027, Pronounced by RN Leighton Puentes at 1032. Family at bedside. MD Garvey and KENISHA Pratt notified at 1033 NEDS notified at 1044 Home: Hernandez: Notified at 1100 Nursing Note:
--- NOTE | 2023-06-16 15:17 | PDOC.CMPRO ---
Date of service: 06/16/23 Time of Service: 15:17 Care Management Progress Note Progress Note Text Progress Note Text: Asim peacefully at 10:32 am with his sister at his side. Final arrangements have been made with [facility]. SDOH(Care Management) Screening Will the Patient Participate in the Screening?: Yes Do you worry about having a steady place to live?: no Problems where you live: no known problems In the past 12 months, have you had to go without electric, gas, oil or water in your home?: no Have you or anyone in your house had to go without enough food to eat?: no Has lack of transportation kept you from medical appointments or from doing things needed for daily living?: no Has anyone in your support network made you feel unsafe for any reason?: no
--- NOTE | 2023-06-16 17:39 | W.PM.DDS ---
Date of service: 06/16/23 Time of Service: 17:39 Discharge Plan Disposition Patient Disposition: Discharge Details Reason For Visit: lung cancer w/brain metastasis, altered mental sta Admit Date/Time: 06/03/23 13:21 Admit Provider: Jaime Gavrey Attending Provider: Jaime Garvey [facility] Course: This 57 years old male with past medical history of terminal lung cancer with left brain lesion that might be possible mets, bipolar disorder, depression GERD, hyperlipidemia, COPD, and tobacco abuse presented in the ED at [facility] on 06/03/2023 for evaluation s/p fall and head strike. In the ED, head CT showed left frontal lobe partially calcified lesion with stable hemorrhage and vasogenic edema compatible with metastasis. As per neurosurgery from [facility] consult with Dr. Hills, the ED provider ordered a repeated head CT after 6 hours;recommendations also made for hospitalization for inpatient MRI with and without contrast, and Keppra, as falls and right limb weakness could have been caused by seizures; deferral of steroids at the time. The remarkable labs in the ED were Na 135, platelets 531, alkaline phosphatase 138. The hospitalist was consulted and admitted the patient to the medical surgical floor for further evaluation and management of frequent falls, right-sided weakness, left-sided frontal brain lesion. On admission to the floor patient reports neck pain 8 out of 10, anxiety, difficulty sleeping at night, and agrees with pharmacological management of those issues. The patient also stated that he would not want to receive CPR, and it would not want to be intubated; the patient was made DNR/ DNI. The patient elected to wait for palliative care consults and hospice consults to be completed before making a decision on the pursuit of MRI. The patient agrees with well as neurology consult with Dr. Paulino. Upon completion palliative care and hospice consultations, the patient decided not to have the MRI performed. Neurology consult was also discontinued. Material Flow Engineer consultation was completed as requested by patient. The patient elected to become comfort measures only care and understood that it was end-of-life care. The patient's sister was contacted and came to be by his bedside. Pain management was obtained initially with as needed opioids analgesics, then a morphine drip was initiated. The patient also received as needed lorazepam for anxiety during end-of-life events. The patient today at 1027, and was pronounced today at 10:32 AM by RN Leighton Puentes while his siter was at the bedside. Discussed with Dr. Garvey Discharge Data Cause of : Lung cancer metastatic to brain Discharge Date/Time-TO BE ENTERED AT DEPARTURE: 06/16/23 10:32 Discharge Sum: Prov Provider Primary care physician: Chung Perry Consults: 06/03/23 11:29 Physical Therapy Consult [CONS] Routine Consulting Provider: Marv Baird,InPatient Priority: Urgent Comment: Evaluate for safe discharge given multiple falls at home 06/03/23 13:21 Care Management Consult [CONS] Routine Consulting Provider: Care Management Consultation Status:: Contact made by MD Clarification:: One time opinion Reason for consult:: Assess for need for home services and support providers at home 06/03/23 15:06 Palliative Care Consult [CONS] Routine Consultation Status:: Follow-up needed Clarification:: Manage/follow per spec. Reason for consult:: continuity of care, assist w/ transition to hopce care Pharmacy Consult [CONS] Routine Consultation Status:: Follow-up needed Clarification:: Manage/follow per spec. Reason for consult:: assist w/ home med reconciliation 06/03/23 15:37 [facility] TelePharmacy Med Rec [CONS] Routine Reason for [facility] Telepharmacy ordered: Complicated History Unit to Contact: Med Surg Was Current Medication List Obtainable from Patient?: Yes 06/03/23 17:09 Hospice Consult [CONS] Routine Consultation Status:: Follow-up needed Clarification:: Manage/follow per spec. Reason for consult:: 57 year old man with a past medical Hx significant for lung cancer with brain lesion concerning for mets and bipolar disorder, depression,GERD, HLD, COPD, tobacco abuse presenting to the ED s/p fall and hitting his head. CT showed brain lesion with stable hemorrhage as per repeated 6-hour CT. Would consider, hospice, wants to get better and go to a place where he can be taken care of. 06/03/23 19:22 Occupational Therapy Consult [CONS] Routine Consulting Provider: Arlet Renteria Priority: Non-Urgent Reason for Urgent Priority: Safety Consult for D/C Physical Therapy Consult [CONS] Routine Consulting Provider: Marv Baird,InPatient Priority: Urgent 06/04/23 17:35 Material Flow Engineer Consult [CONS] Routine Consultation Status:: Follow-up needed Clarification:: Manage/follow per spec. Reason for consult:: This 57 years old male with past medical history of terminal lung cancer with left brain lesion that might be possible mets, bipolar disorder, depression GERD, hyperlipidemia, COPD, and tobacco abuse presented in the ED at [facility] on 06/03/2023 for evaluation s/p fall and head strike. In the ED, head CT showed left frontal lobe partially calcified lesion with stable hemorrhage and vasogenic edema compatible with metastasis. As per neurosurgery from [facility] consult with Dr. Hills, the ED provider ordered a repeated head CT after 6 hours.recommendations also made for hospitalization for inpatient MRI with and without contrast, Keppra as falls and right limb weakness could have been caused by seizures; deferral of steroids at this time remarkable labs in the ED were sodium 135, platelets 531, alkaline phosphatase 138. The hospitalist was consulted and admitted the patient to the medical surgical floor for further evaluation and management of frequent falls, right-sided weakness, left-sided frontal brain lesion. On admission to the floor, the patient denies lightheadedness, change in vision, difficulty breathing, nausea, vomiting, diarrhea, and dysuria. The patient reports right upper and lower extremity weakness starting from a while ago, stating it might of started as his cancer but is unable to orient himself in time today except for the year. Patient reports neck pain 8 out of 10, anxiety, difficulty sleeping at night, and agrees with pharmacological management of those issues. The patient stated that he would not want to receive CPR, and it would not want to be intubated; the patient is a DNR DNI. The patient stated that he would like to get better and be discharged to a facility where he would be taking care of. The patient agrees with palliative care consults and hospice consults as well as neurology consult with Dr. Paulino. He would like the MRI testing to be delayed until he speaks to palliative care and hospice. Discharge Sum: Diag Contributing Factors (1) Lung cancer metastatic to brain: (2) Pain: (3) Weakness of right leg: (4) RUE weakness: (5) Hyponatremia: (6) Hypoxemia: Discharge Sum: Summary Date and Time Admission Date: 01/01/17 Date of : 06/16/23 Time of : 10:27 Summary Details: This 57 years old male with past medical history of terminal lung cancer with left brain lesion that might be possible mets, bipolar disorder, depression GERD, hyperlipidemia, COPD, and tobacco abuse presented in the ED at [facility] on 06/03/2023 for evaluation s/p fall and head strike. In the ED, head CT showed left frontal lobe partially calcified lesion with stable hemorrhage and vasogenic edema compatible with metastasis. As per neurosurgery from [facility] consult with Dr. Hills, the ED provider ordered a repeated head CT after 6 hours;recommendations also made for hospitalization for inpatient MRI with and without contrast, and Keppra, as falls and right limb weakness could have been caused by seizures; deferral of steroids at the time. The remarkable labs in the ED were Na 135, platelets 531, alkaline phosphatase 138. The hospitalist was consulted and admitted the patient to the medical surgical floor for further evaluation and management of frequent falls, right-sided weakness, left-sided frontal brain lesion. On admission to the floor patient reports neck pain 8 out of 10, anxiety, difficulty sleeping at night, and agrees with pharmacological management of those issues. The patient also stated that he would not want to receive CPR, and it would not want to be intubated; the patient was made DNR/ DNI. The patient elected to wait for palliative care consults and hospice consults to be completed before making a decision on the pursuit of MRI. The patient agrees with well as neurology consult with Dr. Paulino. Upon completion palliative care and hospice consultations, the patient decided not to have the MRI performed. Neurology consult was also discontinued. Material Flow Engineer consultation was completed as requested by patient. The patient elected to become comfort measures only care and understood that it was end-of-life care. The patient's sister was contacted and came to be by his bedside. Pain management was obtained initially with as needed opioids analgesics, then a morphine drip was initiated. The patient also received as needed lorazepam for anxiety during end-of-life events. The patient today at 1027, and was pronounced today at 10:32 AM by SEAMUS Puentes while his family was at the bedside. Discussed with Dr. Garvey Additional Data Confirmation of as documented by pronouncing clinician: no pulse, no respirations and no heart sounds Family: at bedside Additional persons at bedside: other (Sister) Attending/PCP notified?: Yes Attending Physician: Jaime Garvey Was code activated?: No Autopsy requested?: No land law examiner notified?: No Organ bank notified?: Yes (declined) Advance directives: No Hospice patient?: No
== END 2023-06-16 10:32 | disposition expired | DRG 181 ==
LOC: ER 13:22 → MS 14:55
PROVIDERS: Nurse Practitioner Acute Care; Admitting Provider Internal Medicine; Emergency Provider Emergency Medicine; PCP Family Medicine; Visit Provider Internal Medicine
DX: C34.12 Malignant neoplasm of upper lobe, left bronchus or lung (principal); C34.2 Malignant neoplasm of middle lobe, bronchus or lung; S32.028A Other fracture of second lumbar vertebra, initial encounter for closed fracture; C79.31 Secondary malignant neoplasm of brain; E87.1 Hypo-osmolality and hyponatremia; G81.91 Hemiplegia, unspecified affecting right dominant side; R45.851 Suicidal ideations; Z68.1 Body mass index [BMI] 19.9 or less, adult; R29.6 Repeated falls; F31.9 Bipolar disorder, unspecified; K21.9 Gastro-esophageal reflux disease without esophagitis; J44.9 Chronic obstructive pulmonary disease, unspecified; F17.210 Nicotine dependence, cigarettes, uncomplicated; W18.39XA Other fall on same level, initial encounter; Z91.81 History of falling; Z66 Do not resuscitate; M54.2 Cervicalgia; G47.00 Insomnia, unspecified; E78.00 Pure hypercholesterolemia, unspecified; F41.9 Anxiety disorder, unspecified; F12.90 Cannabis use, unspecified, uncomplicated; G89.3 Neoplasm related pain (acute) (chronic); R09.02 Hypoxemia; R53.83 Other fatigue; D64.9 Anemia, unspecified; R63.4 Abnormal weight loss; Z51.5 Encounter for palliative care
CPT/HCPCS: 00123; 36415; 80048; 80053; 82805; 93005; 96361; 96365; 97163; 97530; 99285; 70450; 71045; 72170; 83735; 84484; 85025; 93010; 99223; 99232; 99233; J0780; J1953; J2060; J2270; J3490